=== PATIENT | female | born 1955 | race Caucasian/White ===

== ENCOUNTER 2022-10-16 09:31 | Outpatient (OUT) | payer MEDICARE, SELFPAY ==
--- NOTE | 2022-10-16 10:16 | PM.CN ---
Consult Note: HPI Data of Consult Patient: known to practice within the last 3 years Consult date: 10/16/22 Requesting Physician: CAROLINA WARD NP Primary Care Provider: Shaikh Jeison MD Consult Narrative Narrative: Patient is here for f/u of low back pain. Pain low back with radiation down right leg. Some heaviness to right legLESI cancelled in 04/24 d/t elevated blood sugars. She states her BS this am was 203 and she is following up with PCP next week. We discussed that epidural will increase blood sugar temporarily. She would like to proceed with TFNB procedure. No new sensorimotor or bowel or bladder issues. No adverse medication SE. Medication regimen assists patient in ability to complete ADLs. cc:: CC: CAROLINA WARD NP Review of Systems ROS Status of ROS 10 or more systems reviewed and unremarkable except as noted in history and below Musculoskeletal Reports: back pain Exam Constitutional Documenting provider has reviewed patient's vital signs: yes Common normals: no apparent distress, average body habitus, oriented x3, no limitations, healthy appearing, alert and well nourished General appearance: cooperative, comfortable and well developed Orientation/consciousness: Yes awake, Yes oriented to person, Yes oriented to place and Yes oriented to time HENMT Common normals: head/scalp atraumatic, nasal mucous membranes and turbinates normal and moist oral mucous membranes Respiratory Common normals: normal respiratory effort, no retractions and no use of accessory muscles Effort & inspection: able to speak in complete sentences and symmetric chest movement Back & Pelvis Lumbar spine/lower back: normal to inspection, ROM limited, pain with ROM, paraspinal muscle tenderness, paraspinal muscle spasm and other soft tissue findings (neg straight leg raise. positive facet load worse right) Extremity Common normals: normal to inspection, full ROM, normal capillary refill and no pedal edema Other: muscle strength 4/5 bilat, with intact sensation bilat lower ext Assessment and Plan Assessment and Plan (1) Lumbar radiculopathy: (2) Lumbar spondylosis: (3) Muscle spasm: Plan schedule TFNB right l5 S1 narcan rx
== END 2022-10-16 09:32 ==
PROVIDERS: PCP Internal Medicine; Visit Provider Nurse Practitioner
DX: M47.26 Other spondylosis with radiculopathy, lumbar region (principal); M62.838 Other muscle spasm
CPT/HCPCS: G0463

== ENCOUNTER 2022-11-10 06:30 | Day surgery (SDC) | payer MEDICARE, SELFPAY ==
[2022-11-10 07:22] LABS: Glucometer 92 mg/dL (74-106)
[2022-11-10 07:25] VITALS: BP 106/69; PULSE 78; RESP 16; TEMP 36.6; O2SAT 97
[2022-11-10] MEDS: IOHEXOL 240 MG/ML - 10 ML VIAL INJ (08:09)
[2022-11-10] MEDS: BUPIVACAINE HCL 0.25% PF 25 MG/10 ML VIAL INJ (08:09)
[2022-11-10] MEDS: TRIAMCINOLONE ACETONIDE 40 MG/ML VIAL INJ (08:10)
[2022-11-10] MEDS: LIDOCAINE HCL 2% PF 100 MG/5 ML VIAL INJ (08:10)
--- NOTE | 2022-11-10 08:13 | P.ON_ITS ---
Date of procedure: 11/10/22 Pre-op diagnosis: Lumbar stenosis with neurogenic claudication Post-op diagnosis: same Procedure: Procedure: Right L5-S1, S1-2 transforaminal epidural steroid injection Medications: Bupivacaine 0.25% 2cc, kenalog 80mg The patient was seen and examined in the preoperative holding area.? Informed consent was obtained and placed on the chart.? Patient was brought to the medical procedure unit and placed in the prone position where a timeout was completed verifying the correct patient, procedure site, position, and planned special equipment using sterile aseptic technique.? Under direct fluoroscopic visualization a 25-gauge Quincke tipped spinal needle was advanced to the designated neural foramen where contrast dye was injected to show adequate spread.? The needle was inserted at level right L5-S1. There was no evidence of vascular or adverse uptake.? Epidural spread was appreciated.? The above- mentioned injectate was then placed in a 1.5 mL aliquot preceded by negative aspiration.? The needle was removed. The needle was inserted and the procedure repeated at level right S1-2.? The surgery site was covered.? Patient was taken to the postprocedural recovery area and monitored for an appropriate length of time before found suitable for discharge in the accompaniment of a responsible adult. Anesthesia: None Surgeon: Radha Dunaway Pathology: none sent Condition: stable
[2022-11-10 09:20] VITALS: BP 122/62; BP 122/76; PULSE 75; PULSE 76; RESP 18; O2SAT 91; O2SAT 92
== END 2022-11-10 08:15 ==
LOC: SURGOUT 06:30
PROVIDERS: PCP Internal Medicine; Visit Provider Anesthesiology
DX: M48.062 Spinal stenosis, lumbar region with neurogenic claudication (principal)
CPT/HCPCS: 36415; 64483; 64484; 82948; Q9966

== ENCOUNTER 2022-11-20 10:47 | Outpatient (OUT) | payer MEDICARE, SELFPAY ==
--- NOTE | 2022-11-20 11:08 | PM.CN ---
Consult Note: HPI Data of Consult Patient: known to practice within the last 3 years Consult date: 11/20/22 Requesting Physician: CAROLINA WARD NP Primary Care Provider: Shaikh Jeison MD Consult Narrative Narrative: Patient was here for f/u of right L5/S1 . Pain is 90% relieved after procedure with increased fx. Denies adverse SE of medications. Medication regimen assists patient with being better able to perform ADLS. No new sensorimotor or bowel or bladder issues. Pain is worse with standing. cc:: CC: CAROLINA WARD NP Review of Systems ROS Status of ROS 10 or more systems reviewed and unremarkable except as noted in history and below Musculoskeletal Reports: back pain PFSH PFSH Medical History Surgical History Meds Home Medications and Allergies Home Medications Medication Instructions Recorded Confirmed Type allopurinol 100 mg tablet 100 mg PO DAILY 10/16/22 11/10/22 History gabapentin 600 mg tablet 600 mg PO TID 10/16/22 11/10/22 History glipizide 10 mg tablet 10 mg PO DAILY 10/16/22 11/10/22 History hydrochlorothiazide 25 mg tablet 25 mg PO DAILY 10/16/22 11/10/22 History insulin NPH isoph U-100 human 100 20 unit subcut DAILY 10/16/22 11/10/22 History unit/mL subcutaneous suspension (Novolin N NPH U-100 Insulin isophane) lisinopril 40 mg tablet 40 mg PO DAILY 10/16/22 11/10/22 History lovastatin 20 mg tablet 20 mg PO DAILY 10/16/22 11/10/22 History metoprolol tartrate 50 mg tablet 50 mg PO BID 10/16/22 11/10/22 History oxybutynin chloride 5 mg tablet 5 mg PO DAILY 10/16/22 11/10/22 History oxycodone-acetaminophen 5 mg-325 1 tab PO BID 10/16/22 11/10/22 History mg tablet paroxetine HCl 10 mg tablet 10 mg PO DAILY 10/16/22 11/10/22 History pramipexole 0.25 mg tablet 0.25 mg PO DAILY 10/16/22 11/10/22 History (Mirapex) tiotropium bromide 18 mcg capsule 1 cap inhalation DAILY 10/16/22 11/10/22 History with inhalation device (Spiriva with HandiHaler) tizanidine 4 mg capsule 4 mg PO .QD PRN muscle spasticity 10/16/22 11/10/22 History trazodone 150 mg tablet 150 mg PO BEDTIME 10/16/22 11/10/22 History Allergies Allergy/AdvReac Type Severity Reaction Status Date / Time prednisone Allergy Intermediate Rash Verified 10/16/22 10:33 Exam Constitutional Documenting provider has reviewed patient's vital signs: yes Common normals: no apparent distress, average body habitus, oriented x3, no limitations, healthy appearing, alert and well nourished General appearance: cooperative, comfortable and well developed Orientation/consciousness: Yes awake, Yes oriented to person, Yes oriented to place and Yes oriented to time HENMT Common normals: normocephalic and moist oral mucous membranes Respiratory Common normals: normal respiratory effort, no retractions and no use of accessory muscles Effort & inspection: able to speak in complete sentences and symmetric chest movement Back & Pelvis Common normals: thoracic and lumbar spine normal to inspection and straight leg raise negative bilaterally Lumbar spine/lower back: normal to inspection, ROM limited, pain with ROM and paraspinal muscle tenderness Other: positive facet loading pain mild muscle strength 4/5 bilat LE with intact sensation Assessment and Plan Assessment and Plan (1) Muscle spasm: (2) Lumbar spondylosis: (3) Lumbar radiculopathy:
== END 2022-11-20 10:48 | disposition home or self-care (01) ==
LOC: PM 10:47
PROVIDERS: PCP Internal Medicine; Visit Provider Nurse Practitioner
DX: M62.838 Other muscle spasm (principal); M47.26 Other spondylosis with radiculopathy, lumbar region
CPT/HCPCS: G0463

== ENCOUNTER 2023-01-19 07:55 | Outpatient (OUT) | payer MEDICARE, SELFPAY ==
[2023-01-19 08:13] LABS: Basophils Absolute Auto 0.1 10^3/uL (0.0-0.1); Basophils Percent Auto 0.7 % (0.2-2.0); Eosinophils Absolute Auto 0.2 10^3/uL (0.0-0.7); Eosinophils Percent Auto 1.7 % (0.9-7.0); Hematocrit 41.4 % (36.0-48.0); Hemoglobin 13.6 g/dL (12.0-16.0); Immature Granulocytes Abs Auto 0.17 10^3/uL (0.00-0.03); Immature Granulocytes Pct Auto 1.4 % (0.0-0.5); Lymphocytes Absolute Auto 2.2 10^3/uL (1.2-3.8); Lymphocytes Percent Auto 18.4 % (20.5-60.0); Mean Corpuscular HGB Conc 32.9 g/dL (29.9-35.2); Mean Corpuscular Hemoglobin 31.6 pg (26.7-34.0); Mean Corpuscular Volume 96.1 fL (81.0-99.0); Mean Platelet Volume 9.8 fL (9.5-13.5); Monocytes Absolute Auto 0.7 10^3/uL (0.3-0.8); Monocytes Percent Auto 5.7 % (1.7-12.0); Neutrophils Absolute Auto 8.7 10^3/uL (1.4-6.5); Neutrophils Percent Auto 72.1 % (43.0-75.0); Platelet Count 249 10^3/uL (150-450); Red Blood Count 4.31 10^6/uL (4.20-5.40); Red Cell Distribution Width 14.6 % (11.0-15.0); White Blood Count 12.1 10^3/uL (4.0-11.0)
[2023-01-19 09:24] LABS: Estimated Average Glucose 166 mg/dL; Glycohemoglobin A1C 7.4 % (4.5-6.2)
[2023-01-19 10:45] LABS: Alanine Aminotransferase 36 U/L (14-59); Albumin Globulin Ratio 0.9; Albumin Level 3.3 g/dL (3.4-5.0); Alkaline Phosphatase 111 U/L (46-116); Anion Gap 11.6; Aspartate Amino Transferase 19 U/L (15-37); BUN Creatinine Ratio 21.1; Bilirubin Total 0.4 mg/dL (0.2-1.0); Calcium 8.9 mg/dL (8.5-10.1); Carbon Dioxide 27.7 mmol/L (21.0-32.0); Chloride 101 mmol/L (98-107); Cholesterol 118 mg/dL (<=200); Estimated GFR (African America 35 (>=60); Estimated GFR (Non-African Ame 29 (>=60); Globulin 3.7 g/dL; Glucose 197 mg/dL (74-106); HDL Cholesterol 40 mg/dL (40-60); LDL Cholesterol Calculated 49.6 mg/dL; Potassium 4.3 mmol/L (3.5-5.1); Sodium 136 mmol/L (136-145); Triglycerides 142 mg/dL (<=150); VLDL CHOLESTEROL 28.4 mg/dL
== END 2023-01-19 07:56 | disposition home or self-care (01) ==
LOC: LAB 07:56
PROVIDERS: PCP Internal Medicine; Visit Provider Internal Medicine
DX: E11.22 Type 2 diabetes mellitus with diabetic chronic kidney disease (principal); N18.30 Chronic kidney disease, stage 3 unspecified; Z79.4 Long term (current) use of insulin; E78.5 Hyperlipidemia, unspecified
CPT/HCPCS: 36415; 80053; 80061; 83036; 85025

== ENCOUNTER 2023-02-19 10:34 | Outpatient (OUT) | payer MEDICARE, SELFPAY ==
--- NOTE | 2023-02-19 11:01 | PM.CN ---
Consult Note: HPI Data of Consult Requesting Physician: Renate Flores NP Primary Care Provider: Shaikh Jeison MD Consult Narrative Reason for consult: f/u Narrative: Vidhya Pillai a pleasant 67 year old female presents for evaluation and management of chronic back pain with radiculopathy. Today rating pain 7/10 in low back and sharp shooting pain to right leg with numbness and weakness. Patient is not able to stand longer than 5 minutes due to weakness and pain. cc:: CC: Renate Flores NP Review of Systems ROS Status of ROS 10 or more systems reviewed and unremarkable except as noted in history and below Musculoskeletal Reports: back pain PFSH PFSH Medical History Angina at rest ?I20.8 - Other forms of angina pectoris (ICD-10) COPD (chronic obstructive pulmonary disease) ?J44.9 - Chronic obstructive pulmonary disease, unspecified (ICD-10) Diabetes ?E11.9 - Type 2 diabetes mellitus without complications (ICD-10) Hypertension ?I10 - Essential (primary) hypertension (ICD-10) Low back pain ?M54.50 - Low back pain, unspecified (ICD-10) Numbness and tingling ?R20.0 - Anesthesia of skin (ICD-10) ?R20.2 - Paresthesia of skin (ICD-10) Osteoarthritis ?M19.90 - Unspecified osteoarthritis, unspecified site (ICD-10) Smoker ?F17.200 - Nicotine dependence, unspecified, uncomplicated (ICD-10) Surgical History H/O cardiac catheterization ?Z98.890 - Other specified postprocedural states (ICD-10) History of cholecystectomy ?Z90.49 - Acquired absence of other specified parts of digestive tract (ICD-10) S/P dilatation and curettage ?Z98.890 - Other specified postprocedural states (ICD-10) Meds Home Medications and Allergies Home Medications Medication Instructions Recorded Confirmed Type allopurinol 100 mg tablet 100 mg PO DAILY 10/16/22 11/10/22 History gabapentin 600 mg tablet 600 mg PO TID 10/16/22 11/10/22 History glipizide 10 mg tablet 10 mg PO DAILY 10/16/22 11/10/22 History hydrochlorothiazide 25 mg tablet 25 mg PO DAILY 10/16/22 11/10/22 History insulin NPH isoph U-100 human 100 20 unit subcut DAILY 10/16/22 11/10/22 History unit/mL subcutaneous suspension (Novolin N NPH U-100 Insulin isophane) lisinopril 40 mg tablet 40 mg PO DAILY 10/16/22 11/10/22 History lovastatin 20 mg tablet 20 mg PO DAILY 10/16/22 11/10/22 History metoprolol tartrate 50 mg tablet 50 mg PO BID 10/16/22 11/10/22 History oxybutynin chloride 5 mg tablet 5 mg PO DAILY 10/16/22 11/10/22 History oxycodone-acetaminophen 5 mg-325 1 tab PO BID 10/16/22 11/10/22 History mg tablet paroxetine HCl 10 mg tablet 10 mg PO DAILY 10/16/22 11/10/22 History pramipexole 0.25 mg tablet 0.25 mg PO DAILY 10/16/22 11/10/22 History (Mirapex) tiotropium bromide 18 mcg capsule 1 cap inhalation DAILY 10/16/22 11/10/22 History with inhalation device (Spiriva with HandiHaler) tizanidine 4 mg capsule 4 mg PO .QD PRN muscle spasticity 10/16/22 11/10/22 History trazodone 150 mg tablet 150 mg PO BEDTIME 10/16/22 11/10/22 History oxycodone-acetaminophen 5 mg-325 1 tab PO BID PRN pain #60 tabs 12/05/22 Rx mg tablet (Percocet) oxycodone-acetaminophen 5 mg-325 1 tab PO BID PRN pain #60 tabs 01/02/23 Rx mg tablet (Percocet) Allergies Allergy/AdvReac Type Severity Reaction Status Date / Time prednisone Allergy Intermediate Rash Verified 10/16/22 10:33 Exam Constitutional Documenting provider has reviewed patient's vital signs: yes Common normals: no apparent distress, average body habitus, oriented x3, no limitations, healthy appearing, alert and well nourished General appearance: cooperative, comfortable and well developed Orientation/consciousness: Yes awake, Yes oriented to person, Yes oriented to place and Yes oriented to time HENMT Common normals: normocephalic and moist oral mucous membranes Respiratory Common normals: normal respiratory effort, no retractions and no use of accessory muscles Effort & inspection: able to speak in complete sentences and symmetric chest movement Back & Pelvis Common normals: thoracic and lumbar spine normal to inspection and straight leg raise negative bilaterally Lumbar spine/lower back: ROM limited, pain with ROM and straight leg raise positive right Other: numbness tingling weakness to BLE worse on right sharp shooting pain down right leg at times Extremity Common normals: normal to inspection and full ROM Assessment and Plan Assessment and Plan (1) Lumbar radiculopathy: (2) Lumbar spondylosis: (3) Muscle spasm: (4) Degenerative disc disease: (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 The patient does not report intolerable side effects. The patient is NOT opioid naive and non-pharmacologic and non-opioid treatment has failed to significantly relieve the patient's pain and improve functionality. The patient has a diagnosis that is related to a somatic or visceral pain etiology. ? ?? I reviewed with the patient the potential risks and side effects with the use of? opioid medications including but not limited to respiratory depression,? sedation, and even . I verified the patient has access to naloxone should? these effects occur. I advised the patient to avoid the use of any other? sedation substances including alcohol, THC, and benzodiazepines while? taking opioid medications due to the risk of compounding side effects and? detrimental outcomes. 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 drug screen, and opioid start talking forms. The patient was advised to let? their family know they had Naloxone in case they would need to administer? the medication.? Plan update lumbar MRI, last MRI 2016 continue current medication regimen, tolerating well without side effects f/u after MRI
== END 2023-02-19 10:35 | disposition home or self-care (01) ==
LOC: PM 10:34
PROVIDERS: PCP Internal Medicine; Visit Provider Nurse Practitioner
DX: M54.16 Radiculopathy, lumbar region (principal); M47.896 Other spondylosis, lumbar region; M62.830 Muscle spasm of back; M51.36 Other intervertebral disc degeneration, lumbar region; Z79.891 Long term (current) use of opiate analgesic
CPT/HCPCS: G0463

== ENCOUNTER 2023-02-26 12:03 | Outpatient (OUT) | payer MEDICARE, SELFPAY ==
--- NOTE | 2023-02-26 13:00 | MR_ITS ---
[address] [address] Patient Name: ZAYRA IBARRA MRN: [id number] date: 1955 Sex: F Assigned Patient Location: MRI Current Patient Location: MRI Accession/Order Number: [id number] Exam Date: 02/26/2023 13:00 Report Date: 02/26/2023 14:27 At the request of: KARSTEN GIEDRASHANTEL Procedure: MR lumbar spine wo con EXAM: MR lumbar spine wo con CLINICAL INDICATION: Lumbar Radiculopathy COMPARISON: MR lumbar spine 10/12/2020. TECHNIQUE/PROTOCOL: Noncontrast lumbar spine MR protocol (Sagittal T1, T2, STIR and axial T1, T2 sequences). FINDINGS: Segmentation: Normal. Conus: Terminates at L1. Spinal Cord and Cauda Equina: Normal. Epidural Hematoma: None. Alignment: Normal. Marrow Signal: Slightly heterogenous marrow signal is nonspecific. No marrow edema. Vertebral Body Heights: Maintained. Sacroiliac Joints: Grossly normal given only partially visualized. Paraspinal Soft Tissues: Normal. Retroperitoneal Soft Tissues: No acute abnormalities. Spondylotic Changes: Multilevel spondylotic changes include varying degrees of intervertebral disc height loss, disc desiccation, osteophytic ridging, and facet/ligamentum flavum hypertrophy. These have mildly progressed since 10/12/2020. T12-L1: No disc bulge or herniation. No high-grade spinal canal or foraminal narrowing. L1-L2: No disc bulge or herniation. No high-grade spinal canal or foraminal narrowing. L2-L3: No disc bulge or herniation. No high-grade spinal canal or foraminal narrowing. L3-L4: No disc bulge or herniation. No high-grade spinal canal narrowing. Mild bilateral foraminal narrowing. Mild bilateral facet/ligamentum flavum hypertrophy. L4-L5: Slight disc bulge minimally indents the ventral thecal sac. No high-grade spinal canal narrowing. [id number] bilateral foraminal narrowing. Advanced bilateral facet/ligamentum flavum hypertrophy. L5-S1: No disc bulge or herniation. Significant intervertebral disc height loss. No high-grade spinal canal narrowing. Mild right and moderate left foraminal narrowing. Mild bilateral facet hypertrophy. MR/MR lumbar spine wo con IMPRESSION: 1. Multilevel spondylotic changes, mildly progressed since 10/12/2020, without high-grade spinal canal or foraminal narrowing at any lumbar level. 2. Foraminal narrowing is at most moderate on the left at L5-S1. Electronically authenticated by: ARMAND DENT Date: 02/26/2023 14:27
== END 2023-02-26 12:04 | disposition home or self-care (01) ==
LOC: MRI 12:04
PROVIDERS: PCP Internal Medicine; Visit Provider Anesthesiology
DX: M47.26 Other spondylosis with radiculopathy, lumbar region (principal)
CPT/HCPCS: 72148

== ENCOUNTER 2023-03-12 09:05 | Outpatient (OUT) | payer MEDICARE, SELFPAY ==
--- NOTE | 2023-03-12 09:34 | P.CN_ITS ---
Consult Note: HPI Data of Consult Requesting Physician: Renate Flores NP Primary Care Provider: Shaikh Jeison MD Consult Narrative Reason for consult: f/u Narrative: Vidhya Pillai a pleasant 67 year old female presents for evaluation and management of chronic back pain. Today rating pain 7/10 in low back. Recently had Lumbar MRI and would like to discuss findings and plan. cc:: CC: Renate Flores NP Review of Systems ROS Status of ROS 10 or more systems reviewed and unremarkable except as noted in history and below Musculoskeletal Reports: back pain PFSH PFSH Medical History Angina at rest ?I20.8 - Other forms of angina pectoris (ICD-10) COPD (chronic obstructive pulmonary disease) ?J44.9 - Chronic obstructive pulmonary disease, unspecified (ICD-10) Diabetes ?E11.9 - Type 2 diabetes mellitus without complications (ICD-10) Hypertension ?I10 - Essential (primary) hypertension (ICD-10) Low back pain ?M54.50 - Low back pain, unspecified (ICD-10) Numbness and tingling ?R20.0 - Anesthesia of skin (ICD-10) ?R20.2 - Paresthesia of skin (ICD-10) Osteoarthritis ?M19.90 - Unspecified osteoarthritis, unspecified site (ICD-10) Smoker ?F17.200 - Nicotine dependence, unspecified, uncomplicated (ICD-10) Surgical History H/O cardiac catheterization ?Z98.890 - Other specified postprocedural states (ICD-10) History of cholecystectomy ?Z90.49 - Acquired absence of other specified parts of digestive tract (ICD- 10) S/P dilatation and curettage ?Z98.890 - Other specified postprocedural states (ICD-10) Meds Home Medications and Allergies Home Medications Medication Instructions Recorded Confirmed Type allopurinol 100 mg tablet 100 mg PO DAILY 10/16/22 11/10/22 History gabapentin 600 mg tablet 600 mg PO TID 10/16/22 11/10/22 History glipizide 10 mg tablet 10 mg PO DAILY 10/16/22 11/10/22 History hydrochlorothiazide 25 mg tablet 25 mg PO DAILY 10/16/22 11/10/22 History insulin NPH isoph U-100 human 100 20 unit subcut DAILY 10/16/22 11/10/22 History unit/mL subcutaneous suspension (Novolin N NPH U-100 Insulin isophane) lisinopril 40 mg tablet 40 mg PO DAILY 10/16/22 11/10/22 History lovastatin 20 mg tablet 20 mg PO DAILY 10/16/22 11/10/22 History metoprolol tartrate 50 mg tablet 50 mg PO BID 10/16/22 11/10/22 History oxybutynin chloride 5 mg tablet 5 mg PO DAILY 10/16/22 11/10/22 History oxycodone-acetaminophen 5 mg-325 1 tab PO BID 10/16/22 11/10/22 History mg tablet paroxetine HCl 10 mg tablet 10 mg PO DAILY 10/16/22 11/10/22 History pramipexole 0.25 mg tablet 0.25 mg PO DAILY 10/16/22 11/10/22 History (Mirapex) tiotropium bromide 18 mcg capsule 1 cap inhalation DAILY 10/16/22 11/10/22 History with inhalation device (Spiriva with HandiHaler) tizanidine 4 mg capsule 4 mg PO .QD PRN muscle spasticity 10/16/22 11/10/22 History trazodone 150 mg tablet 150 mg PO BEDTIME 10/16/22 11/10/22 History oxycodone-acetaminophen 5 mg-325 1 tab PO BID PRN pain #60 tabs 12/05/22 Rx mg tablet (Percocet) oxycodone-acetaminophen 5 mg-325 1 tab PO BID PRN pain #60 tabs 01/02/23 Rx mg tablet (Percocet) oxycodone-acetaminophen 5 mg-325 1 tab PO BID PRN pain #60 tabs 03/12/23 Rx mg tablet (Percocet) Allergies Allergy/AdvReac Type Severity Reaction Status Date / Time prednisone Allergy Intermediate Rash Verified 10/16/22 10:33 Exam Constitutional Documenting provider has reviewed patient's vital signs: yes Common normals: no apparent distress, average body habitus, oriented x3, no limitations, healthy appearing, alert and well nourished General appearance: cooperative, comfortable and well developed Orientation/consciousness: Yes awake, Yes oriented to person, Yes oriented to place and Yes oriented to time HENDE Common normals: normocephalic and moist oral mucous membranes Respiratory Common normals: normal respiratory effort, no retractions and no use of accessory muscles Effort & inspection: able to speak in complete sentences and symmetric chest movement Back & Pelvis Common normals: thoracic and lumbar spine normal to inspection and straight leg raise negative bilaterally Lumbar spine/lower back: ROM limited, pain with ROM and straight leg raise negative bilaterally Extremity Common normals: normal to inspection and full ROM Assessment and Plan Assessment and Plan (1) Lumbar spondylosis: Assessment and Plan: The patient has had over 3 months of moderate to severe low back pain with functional impairment and inadequate response to conservative care including NSAIDS (unless there are contraindication such as concurrent blood thinners), multiple oral or topical pain medications, and home exercise program/physical therapy.? Patient has completed >6 weeks of guided home exercise program and/or formal physical therapy program without relief of their symptoms.? I have reviewed the imaging of the lumbar spine and no red flags were identified.? We discussed the risks and benefits of the procedure with the patient, and we are NOT planning on using sedation as outlined in the guidelines from Medicare unless there is a documented reason that sedation would be strongly recommended.?? ?The procedure will be completed with {aimagin} guidance.? 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 I feel these medications are improving the patient's quality of life and allow them to tolerate activities of daily living as well as participate in recreational activity.? The patient does not report intolerable side effects. The patient is NOT opioid naive and non-pharmacologic and non-opioid treatment has failed to significantly relieve the patient's pain and improve functionality. The patient has a diagnosis that is related to a somatic or visceral pain etiology. ? ?? I reviewed with the patient the potential risks and side effects with the use of? opioid medications including but not limited to respiratory depression,? sedation, and even . I verified the patient has access to naloxone should? these effects occur. I advised the patient to avoid the use of any other? sedation substances including alcohol, THC, and benzodiazepines while? taking opioid medications due to the risk of compounding side effects and? detrimental outcomes. I reviewed the BOX BLANK MACHINE OPERATOR, pain treatment agreement, urine? drug screen, and opioid start talking forms. The patient was advised to let? their family know they had Naloxone in case they would need to administer? the medication.? ?? A drug screen was completed within the last year, and no aberrancies were noted regarding their use of controlled substances. The patient understands they are subject to the terms and conditions of the pain contract that they have signed. ? ?? I have checked an [place] report on this patient today and there are no aberrancies noted in the prescribing history.? (4) Lumbar stenosis with neurogenic claudication: (5) Degenerative disc disease: (6) Muscle spasm: Plan MRI reviewed with patient. Case discussed with Dr Dunaway who feels she could benefit from repeat lumbar RFA at bilateral L4-5 L5-S1 as this previously provided greater than 6 months of pain relief and functional improvement. Discussed with patient and she is agreeable. continue HEP as tolerated continue current medications Bilateral L4-5 L5-S1 MBB x2 working towards thermal RFA f/u 1 week after
== END 2023-03-12 09:06 | disposition home or self-care (01) ==
PROVIDERS: PCP Internal Medicine; Visit Provider Nurse Practitioner
DX: M47.816 Spondylosis without myelopathy or radiculopathy, lumbar region (principal); Z79.891 Long term (current) use of opiate analgesic; M24.20 Disorder of ligament, unspecified site
CPT/HCPCS: G0463

== ENCOUNTER 2023-04-06 09:02 | Day surgery (SDC) | payer MEDICARE, SELFPAY ==
[2023-04-06 10:18] LABS: Glucometer 106 mg/dL (74-106)
[2023-04-06 10:19] VITALS: BP 122/66; PULSE 62; RESP 14; TEMP 36.4; O2SAT 95
[2023-04-06] MEDS: BUPIVACAINE HCL 0.25% PF 25 MG/10 ML VIAL 8 ML INJ (10:34)
[2023-04-06] MEDS: LIDOCAINE HCL 2% PF 100 MG/5 ML VIAL 2 ML INJ (10:34)
[2023-04-06 10:47] VITALS: BP 136/73; BP 140/72; PULSE 60; PULSE 62; RESP 18; O2SAT 90; O2SAT 91
--- NOTE | 2023-04-06 10:48 | W.PM.PROCNOT ---
Date of procedure: 04/06/23 Pre-op diagnosis: Lumbar spondylosis Post-op diagnosis: same as pre-op Procedure: Procedure: Bilateral L4-5, L5-S1 medial branch block Medications: Bupivacaine 0.25% 5cc The patient was seen and examined in the preoperative holding area.? An informed consent was obtained and placed on the chart.? The patient was brought to the medical procedure unit and placed in the prone position.? A timeout was completed verifying correct patient, procedure site, positioning, plan, and special equipment.? Using aseptic technique, the needle was placed at left L4. Under direct fluoroscopic visualization a Quincke-tipped spinal needle was advanced to the junction of the superior articulating process with the transverse process at the designated medial branch segment.? Preceded by negative aspiration, the above-mentioned injectate was placed in 1 mL aliquots.? The procedure was repeated at left L5, S1.? The needle was removed and insertion site was covered. The same procedure, at the same levels, was completed on the right side. The patient was taken to the postprocedural recovery area and monitored for an appropriate length of time before found suitable for discharge in the company of a responsible adult. Anesthesia: Local Surgeon: Radha Dunaway Pathology: none sent Condition: stable Disposition: no change
== END 2023-04-06 10:55 | disposition home or self-care (01) ==
PROVIDERS: PCP Internal Medicine; Visit Provider Anesthesiology
DX: M47.816 Spondylosis without myelopathy or radiculopathy, lumbar region (principal); Z79.4 Long term (current) use of insulin
CPT/HCPCS: 36415; 64493; 64494; 82948

== ENCOUNTER 2023-04-16 09:58 | Outpatient (OUT) | payer MEDICARE, SELFPAY ==
--- NOTE | 2023-04-16 10:37 | P.CN_ITS ---
Consult Note: HPI Data of Consult Consult date: 04/16/23 Requesting Physician: Renate Flores NP Primary Care Provider: Shaikh Jeison MD Consult Narrative Reason for consult: f/u Narrative: Vidhya Pillai a pleasant 67 year old female presents for evaluation and management of chronic back pain. Today rating pain 2/10 in low back, stabbing, worse with activity and improved with rest. Patient recently underwent bilateral L4-5 L5-S1 MBB#1 with 80% improvement immediately after and hours following the procedure. cc:: CC: Renate Flores NP Review of Systems ROS Status of ROS 10 or more systems reviewed and unremark able except as noted in history and below Musculoskeletal Reports: back pain PFSH PFSH Medical History Osteoarthritis ?M19.90 - Unspecified osteoarthritis, unspecified site (ICD-10) Low back pain ?M54.50 - Low back pain, unspecified (ICD-10) Numbness and tingling ?R20.0 - Anesthesia of skin (ICD-10) ?R20.2 - Paresthesia of skin (ICD-10) Diabetes ?E11.9 - Type 2 diabetes mellitus without complications (ICD-10) Smoker ?F17.200 - Nicotine dependence, unspecified, uncomplicated (ICD-10) COPD (chronic obstructive pulmonary disease) ?J44.9 - Chronic obstructive pulmonary disease, unspecified (ICD-10) Angina at rest ?I20.8 - Other forms of angina pectoris (ICD-10) Hypertension ?I10 - Essential (primary) hypertension (ICD-10) Surgical History History of cholecystectomy ?Z90.49 - Acquired absence of other specified parts of digestive tract (ICD- 10) S/P dilatation and curettage ?Z98.890 - Other specified postprocedural states (ICD-10) H/O cardiac catheterization ?Z98.890 - Other specified postprocedural states (ICD-10) Meds Home Medications and Allergies Home Medications Medication Instructions Recorded Confirmed Type allopurinol 100 mg tablet 100 mg PO DAILY 10/16/22 04/06/23 History gabapentin 600 mg tablet 600 mg PO TID 10/16/22 04/06/23 History glipizide 10 mg tablet 10 mg PO DAILY 10/16/22 04/06/23 History hydrochlorothiazide 25 mg tablet 25 mg PO DAILY 10/16/22 04/06/23 History insulin NPH isoph U-100 human 100 20 unit subcut DAILY 10/16/22 04/06/23 History unit/mL subcutaneous suspension (Novolin N NPH U-100 Insulin isophane) lisinopril 40 mg tablet 40 mg PO DAILY 10/16/22 04/06/23 History lovastatin 20 mg tablet 20 mg PO DAILY 10/16/22 04/06/23 History metoprolol tartrate 50 mg tablet 50 mg PO BID 10/16/22 04/06/23 History oxybutynin chloride 5 mg tablet 5 mg PO DAILY 10/16/22 04/06/23 History oxycodone-acetaminophen 5 mg-325 1 tab PO BID 10/16/22 04/06/23 History mg tablet paroxetine HCl 10 mg tablet 10 mg PO DAILY 10/16/22 04/06/23 History pramipexole 0.25 mg tablet 0.25 mg PO DAILY 10/16/22 04/06/23 History (Mirapex) tiotropium bromide 18 mcg capsule 1 cap inhalation DAILY 10/16/22 04/06/23 History with inhalation device (Spiriva with HandiHaler) tizanidine 4 mg capsule 4 mg PO .QD PRN muscle spasticity 10/16/22 04/06/23 History trazodone 150 mg tablet 150 mg PO BEDTIME 10/16/22 04/06/23 History oxycodone-acetaminophen 5 mg-325 1 tab PO BID PRN pain #60 tabs 04/06/23 Rx mg tablet (Percocet) Allergies Allergy/AdvReac Type Severity Reaction Status Date / Time prednisone Allergy Intermediate Rash Verified 04/06/23 10:09 Exam Constitutional Documenting provider has reviewed patient's vital signs: yes Common normals: no apparent distress, average body habitus, oriented x3, no limitations, healthy appearing, alert and well nourished General appearance: cooperative, comfortable and well developed Orientation/consciousness: Yes awake, Yes oriented to person, Yes oriented to place and Yes oriented to time HENMT Common normals: normocephalic and moist oral mucous membranes Respiratory Common normals: normal respiratory effort, no retractions and no use of accessory muscles Effort & inspection: able to speak in complete sentences and symmetric chest movement Back & Pelvis Common normals: thoracic and lumbar spine normal to inspection and straight leg raise negative bilaterally Lumbar spine/lower back: ROM limited, pain with ROM and straight leg raise negative bilaterally Extremity Common normals: normal to inspection and full ROM Assessment and Plan Assessment and Plan (1) Lumbar spondylosis: Assessment and Plan: The patient has had over 3 months of moderate to severe low back pain with functional impairment and inadequate response to conservative care including NSAIDS (unless there are contraindication such as concurrent blood thinners), multiple oral or topical pain medications, and home exercise program/physical therapy.? Patient has completed >6 weeks of guided home exercise program and/or formal physical therapy program without relief of their symptoms.? I have reviewed the imaging of the lumbar spine and no red flags were identified.? We discussed the risks and benefits of the procedure with the patient, and we are NOT planning on using sedation as outlined in the guidelines from Medicare unless there is a documented reason that sedation would be strongly recommended.?? ?The procedure will be completed with fluoroscopic guidance.? 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 I feel these medications are improving the patient's quality of life and allow them to tolerate activities of daily living as well as participate in recreational activity.? The patient does not report intolerable side effects. The patient is NOT opioid naive and non-pharmacologic and non-opioid treatment has failed to significantly relieve the patient's pain and improve functionality. The patient has a diagnosis that is related to a somatic or visceral pain etiology. ? ?? I reviewed with the patient the potential risks and side effects with the use of? opioid medications including but not limited to respiratory depression,? sedation, and even . I verified the patient has access to naloxone should? these effects occur. I advised the patient to avoid the use of any other? sedation substances including alcohol, THC, and benzodiazepines while? taking opioid medications due to the risk of compounding side effects and? detrimental outcomes. I reviewed the WELDING MACHINE OPERATOR, pain treatment agreement, urine? drug screen, and opioid start talking forms. The patient was advised to let? their family know they had Naloxone in case they would need to administer? the medication.? ?? A drug screen was completed within the last year, and no aberrancies were noted regarding their use of controlled substances. The patient understands they are subject to the terms and conditions of the pain contract that they have signed. ? ?? I have checked an [place] report on this patient today and there are no aberrancies noted in the prescribing history.? (3) Degenerative disc disease: (4) Muscle spasm: (5) Ligamentum flavum hypertrophy: Plan Bilateral L4-5 L5-S1 MBB #2 working towards thermal RFA continue HEP as tolerated continue current medications, tolerating well without side effects f/u 1 week after
== END 2023-04-16 09:59 | disposition home or self-care (01) ==
LOC: PM 09:59
PROVIDERS: PCP Internal Medicine; Visit Provider Nurse Practitioner
DX: M47.816 Spondylosis without myelopathy or radiculopathy, lumbar region (principal); Z79.891 Long term (current) use of opiate analgesic
CPT/HCPCS: G0463

== ENCOUNTER 2023-05-11 08:52 | Day surgery (SDC) | payer MEDICARE, SELFPAY ==
--- OUTSIDE RECORDS SUMMARY | 2023-05-11 08:56 | XMS_ITS | CCD ---
Author Name Unknown Address [email or web address] [place] [address] Organization [facility] Care Team Providers Care Calciner Operator Name Role Phone JeisonShaikh Unavailable Unavailable Unavailable Juan Gonzalez Unavailable Unavailable Unavailable NAVEEN ., DR ELIGIO Burns Admitting Unavailable HODGE ., DR ELIGIO Burns Consulting Unavailable HODGE ., DR ELIGIO Burns Attending Unavailable [facility] Primary Care Unavailable JUAN ANTONIO LOMELI Consulting Unavailable HODGE ., DR ELIGIO Burns Admitting Unavailable [facility] Primary Care Unavailable ROSEN ., EVA Consulting Unavailable HODGE ., DR ELIGIO Burns Attending Unavailable HODGE ., DR ELIGIO Burns Admitting [facility] Primary Care Unavailable ROSEN ., EVA Consulting Unavailable HODGE ., DR ELIGIO Burns Attending Unavailable [facility] Primary Care Unavailable LAKSHMIPATHY ., NARENDRANATH Admitting Catrina vailable LAKSHMIPATHY ., NARENDSHIRAATH Attending Catrina vailable HODGE ., DR ELIGIO Burns Admitting [facility]available [facility] Primary Care Unavailable ROSEN ., EVA Consulting Unavailable HODGE ., DR ELIGIO Burns Attending [facility]available [facility] Primary Care Unavailable ROSEN ., EVA Consulting Unavailable HODGE ., DR ELIGIO Burns Attending Unavailable HODEG ., DR ELIGIO Burns Admitting Unavailable ROSEN ., EVA Consulting Unavailable HODGE ., DR ELIGIO Burns Admitting Unavailable NEENA MACK Primary Care Unavailable HODGE ., DR ELIGIO Burns Attending Unavailable [facility] Primary Care Unavailable [facility] Consulting Un[facility] Attending Unavailable [facility], DIAL H Admitting Unavailable [facility], D[facility] Consulting Unavailable FAWWAD, DIAL H Attending Unavailable FAWWAD, DIAL H Admitting Unavailable [facility], [facility] Primary Care Unavailable [facility], [facility] Primary Care Unavailable [facility], DIAL H Attending Unavailable [facility], [facility] Admitting Unavailable JUSTO, DR NADJA Malcolm Consulting Unavailable CONNIE ., ANA CRISTINA Consulting Unavailable [facility], [facility] Consulting Unavailable [facility] Primary Care Unavailable ROSEN ., EVA Consulting Unavailable HODGE ., DR ELIGIO Burns Attending Unavailable HODGE ., DR ELIGIO Burns Admitting Unavailable HODGE ., DR ELIGIO Burns Admitting Unavailable [facility] Primary Care Unavailable HODGE ., DR ELIGIO Burns Consulting Unavailable HODGE ., DR ELIGIO Burns Attending Unavailable Udayuinchepe II, Dr. Shashi Salas Attending Unavailable McGuinn II, Dr. Shashi Salas Referring Unavailable McGuinchepe II, Dr. Shashi Salas Attending Unavailable MD Misael Mchughikh Primary Care Provider [phone] MD Alta Schmid Attending Provider Sharmaine, Alta Unavailable MD Yojana Mchugh Primary Care Provider MD Alta Schmid Attending Provider JOSE Staley Attending Provider MD Alta Schmid Referring Provider Sharmaine, Alta Admitting Unavailable Sharmaine, Alta Attending Unavailable [facility] Primary Care Unavailable Sharmaine, Alta Admitting Unavailable Sharmaine, Alta Attending Unavailable [facility] Primary Care Unavailable Yakelin Staley Attending Unavail able Sharmaine, Alta Referring Unavailable [facility] Primary Care Unavailable Yakelin Staley Admitting Unavail able Neena Hi Unavailable SHAIKH MCHUGH Attending Unavailable Gume PRAJAPATI, Radha Hawkins Attending Unavailable Gume PRAJAPATI, Radha Hawkins Attending Unavailable Allergies Allergy Classification Reported Allergen(s) Allergy Type Date of Onset Reaction(s) Facility (14 sources) predniSONE; Translations: [predniSONE] Drug Allergy 1 Hives, Unknown [place] (2 sources) predniSONE Drug Allergy 5 [facility] (1 source) predniSONE Drug Allergy 1 [place] [facility] Medications Current Medications Medication Drug Class(es) Dates Sig (Normalized) Sig (Original) acetaminophen 325 mg / oxyCODONE hydrochloride 5 mg oral tablet (15 sources) Opioid Agonist Start: 01-24-2021 End: 03-23-2023 take 1 tablet by mouth twice daily Oxycodone-Acetami nophen Active 1 TAB PO Twice daily March 23, 2023 12:00am take 1 tablet by rafat th every twelve hours as needed for pain Percocet 5-325 MG Oral Tablet TAKE 1 TAB LET EVERY 12 HOURS NEEDED FOR PAIN. Quantity: 0 Refills: 0 Ordered: 13-May-2021 DO Active atorvastatin 40 mg oral tablet (3 sources) HMG-CoA Reductase Inhibitor Start: 03-23-2023 take 40 mg by mouth once daily Atorvastatin Active 40 MG PO Daily March 23, 2023 12:00am bumetanide 0.5 mg oral tablet (15 sources) Loop Diuretic Start: 01-24-2021 End: 03-23-2023 take 0.5 mg by mouth once daily Bumetanide Active 0.5 MG PO Daily March 23, 2023 12:00am take 1 tablet by rafat th every twenty-four hours Bumetanide 0.5 MG 1 TAB BY MOUTH Orally every 24 hrs Active gabapentin 600 mg oral tablet (15 sources) Anti-epileptic Agent Start: 03-23-2023 take 600 mg by mouth three times daily Gabapentin Active 600 MG PO Three times daily March 23, 2023 12:00am Start: 01-24-2021 End: 03-23-2023 take 400 mg by mouth three times daily Gabapentin Discontinued 400 MG PO Three times daily January 23, 2021 11:00pm March 23, 2023 2:48pm glipiZIDE 10 mg oral tablet (15 sources) Sulfonylurea Start: 03-23-2023 take 10 mg by mouth twice daily Glipizide Active 10 MG PO Twice daily March 23, 2023 12:00am Start: 01-24-2021 End: 03-23-2023 take 10 mg by mouth once daily Glipizide Discontinued 10 MG PO Daily January 23, 2021 11:00pm March 23, 2023 2:48pm take 1 tablet by rafat once daily glipiZIDE XL 10 MG Oral Tablet Extended Release 24 Hour TAKE 1 TABLET DAILY DIRECTED. Quantity: 0 Refills: 0 Ordered: 13-May-2021 DO Active hydroCHLOROthiazide 25 mg oral tablet (2 sources) Thiazide Diuretic take 1 tablet by mouth every twenty-four hours hydroCHLOROthiazide 25 MG 1 tablet in the morning Orally Once a day Active hydroCHLOROthiazide 25 mg / losartan potassium 100 mg oral tablet (3 sources) Thiazide Diuretic, Angiotensin 2 Receptor Niko Start : 03-23 take 1 tablet by mouth once daily Losartan-Hydrochlorothia zide Active 1 TAB PO Daily March 23, 2023 12:00am 3 ml insulin isophane, human 100 unt/ml pen injector (2 sources) NovoLIN N FlexPe n 100 UNIT/ML as directed Subcutaneous 20 UNITS TWICE A DAY Active Insulin Nph And Regular Human (1 source) Insulin Start : 03-24 Insulin Nph And Regular Human (Novolin 70-30 Flexpen U-100) 100 unit/mL (70-30) Insulin Pen Active 20 UNIT SUBCUT Twice daily March 24, 2023 12:00am Magnesium (2 sources) Start : 03-11 take 1 tablet by mouth once daily Magnesium 400 MG 1 Tablet Orally Once a day for 90 days Mar, Active magnesium oxide 250 mg oral tablet (2 sources) take 1 tablet by mouth once daily at mealtime Magnesium Oxide 250 MG 1 tablet with food Orally Once a day Active metoprolol tartrate 50 mg oral tablet (15 sources) beta-Adrenergic Niko Start : 03-23 take 50 mg by mouth twice daily Metoprolol Tartrate Active 50 MG PO Twice daily March 23, 2023 12:00am Start: 01-24-2021 End: 03-23-2023 take 50 mg by mouth three times daily Metoprolol Tartrate Discontinued 50 MG PO Three times daily January 23, 2021 11:00pm March 23, 2023 2:48pm take 2 tablets by mo uth once daily Metoprolol Tartrate 50 MG Oral Tablet TAKE 2 TABLETS DAILY. Quantity: 0 Refills: 0 Ordered: 01-Jul-2021 DO Active take 1 tablet by rafat th once daily Metoprolol Tartrate 50 MG Oral Tablet TAKE 1 TABLET EVERY 12 HOURS DAILY. Quantity: 0 Refills: 0 Ordered: 13-May-2021 DO Active PARoxetine hydrochloride 20 mg oral tablet (9 sources) Serotonin Reuptake Inhibitor Start: 03-23-2023 take 20 mg by mouth once daily Paroxetine Hcl Active 20 MG PO Daily March 23, 2023 12:00am Start: 01-24-2021 End: 03-23-2023 take 10 mg by mouth once daily Paroxetine Hcl Disconti nued 10 MG PO Daily January 23, 2021 11:00pm March 23, 2023 2:48pm pramipexole dihydrochloride 0.5 mg oral tablet (3 sources) Nonergot Dopamine Agonist Start: 03-23-2023 take 0.5 mg by mouth once daily Pramipexole Active 0.5 MG PO Daily March 23, 2023 12:00am rOPINIRole 0.5 mg oral tablet (2 sources) Nonergot Dopamine Agonist take 1 tablet by mouth once daily at bedtime rOPINIRole HCl 0.5 MG 1 tablet 1 to 3 hours before bedtime Orally Once a day Active traZODone hydrochloride 100 mg oral tablet (15 sources) Serotonin Reuptake Inhibitor Start: 03-23-2023 take 100 mg by mouth once daily at bedtime Trazodone Active 100 MG PO Daily at bedtime March 23, 2023 12:00am Start: 01-24-2021 End: 03-23-2023 take 150 mg by mouth at bedtime Trazodone Discontinued 150 MG PO Bedtime January 23, 2021 11:00pm March 23, 2023 2:48pm take 1 tablet by rafat at bedtime traZODone HCl - 150 MG Oral Tablet TAKE 1 TABLET AT BEDTIME. Quantity: 0 Refills: 0 Ordered: 13-May-2021 DO Active Vitamin D (Cholecalciferol) 10 MCG (400 UNIT) (2 sources) take 1 tablet by mouth once daily Vitamin D (Cholecalciferol) 10 MCG (400 UNIT) 1 tablet Orally Once a day Active Completed/Discontinued Medications Medication Drug Class(es) Dates Sig (Normalized) Sig (Original) allopurinol 300 mg oral tablet (12 sources) Xanthine Oxidase Inhibitor Start: 1 End: 3 take 300 mg by mouth once daily Allopurinol Discontinued 300 MG PO Daily January 23, 2021 11:00pm March 23, 2023 2:48pm amLODIPine 2.5 mg oral tablet (2 sources) Dihydropyridine Calcium Channel Niko Start: 1 End: 3 take 2.5 mg by mouth once daily Amlodipine Discontinued 2.5 MG PO Daily January 23, 2021 11:00pm March 23, 2023 2:48pm celecoxib 50 mg oral capsule (6 sources) Nonsteroidal Anti-inflammatory Drug take 1 capsule by mouth twice daily Celecoxib 50 MG Oral Capsule TAKE 1 CAPSULE TWICE DAILY. Quantity: 0 Refills: 0 Ordered: 13-May-2021 DO Active hydroCHLOROthiazide 12.5 mg / lisinopril 10 mg oral tablet (4 sources) Thiazide Diuretic, Angiotensin Converting Enzyme Inhibitor Start: 2 take 1 tablet by mouth once daily Lisinopril-hydro CHLOROthiazide 10-12.5 MG Oral Tablet TAKE 1 TABLET DAILY. Quantity: 90 Refills: 1 Ordered: 30-Jun-2022 Shashi Cottrell MD Start : 01-Jul-2021 Active insulin aspart, human 100 unt/ml injectable solution (2 sources) Insulin Analog NovoLOG 100 UNIT/ML Injection Solution as directed Quantity: 0 Refills: 0 Ordered: 08-Dec-2022 DO Active insulin detemir 100 unt/ml injectable solution (2 sources) Insulin Analog Levemir 100 UNIT/ML Subcutaneous Solution as directed Quantity: 0 Refills: 0 Ordered: 08-Dec-2022 DO Active lisinopril 2.5 mg oral tablet (4 sources) Angiotensin Converting Enzyme Inhibitor Start: 1 End: 3 take 2.5 mg by mouth once daily Lisinopril Discontinued 2.5 MG PO Daily January 23, 2021 11:00pm March 23, 2023 2:48pm lovastatin 40 mg oral tablet (10 sources) HMG-CoA Reductase Inhibitor Start: 1 End: 3 take 40 mg by mouth once daily Lovastatin Discontinued 40 MG PO Daily January 23, 2021 11:00pm March 23, 2023 2:48pm metFORMIN hydrochloride 500 mg oral tablet (10 sources) Biguanide Start: End: 3 take 500 mg by mouth twice daily Metformin Discontinued 500 MG PO Twice daily January 23, 2021 11:00pm March 23, 2023 2:48pm metFORMIN HCl 10 00 MG 1 /2 tablet with a meal Orally TWICE A DAY Active nitroglycerin 0.4 mg sublingual tablet (4 sources) Nitrate Vasodilator Nitroglyceri n 0.4 MG as directed Sublingual Not-Taking/PRN Nitroglycerin 0. [address] 1 TABLET UNDER THE TONGUE EVERY 5 MINUTES FOR UP TO 3 DOSES NEEDED FOR CHEST PAIN.CALL 911 IF PAIN PERSISTS. Quantity: 1 Refills: 0 Ordered: 08-Dec-2022 DO Active Ozempic (0.25 or 0.5 MG/DOSE) SOPN (2 sources) Ozempic (0.25 or 0.5 MG/DOSE) SOPN as directed Quantity: 0 Refills: 0 Ordered: 08-Dec-2022 DO Active tiZANidine 4 mg oral tablet (10 sources) Central alpha-2 Adrenergic Agonist Start: 01-24-2021 End: 03-23-2023 take 4 mg by mouth twice daily Tizanidine Discontinued 4 MG PO Twice daily January 23, 2021 11:00pm March 23, 2023 2:48pm Zanaflex CAPS TA KE 1 CAPSULE TWICE DAILY NEEDED. Quantity: 0 Refills: 0 Ordered: 13-May-2021 DO Active Problems Active Problems Problem Classification Problem Date Documented Date Episodic/Chronic Abdominal pain (4 sources) Abdominal pain; Translations: [Unspecified abdominal pain] Episodic Chronic kidney disease (6 sources) Chronic kidney disease stage 3; Translations: [Chronic kidney disease, stage 3 (moderate)] Chronic Chronic kidney disease (2 sources) Chronic kidney disease; Translations: [Chronic kidney disease, stage 3 unspecified] Onset: 3 Chronic obstructive pulmonary disease and bronchiectasis (1 source) Chronic obstructive pulmonary disease, unspecified; Translations: [COPD UNSPECIFIED] Onset: 2 Chronic Diabetes mellitus with complications (10 sources) Disorder of kidney due to diabetes mellitus; Translations: [Type 2 diabetes mellitus with diabetic chronic kidney disease] Onset: 2 Chronic Diabetes mellitus without complication (5 sources) Diabetes mellitus; Translations: [Diabetes mellitus without mention of complication, type II or unspecified type, not stated as uncontrolled] Onset: 3 Chronic Diabetes mellitus without complication (1 source) Diabetes mellitus without complication; Translations: [Type 2 diabetes mellitus with diabetic chronic kidney disease] Onset: 3 Diseases of white blood cells (5 sources) Elevated white blood cell count, unspecified; Translations: [Leukocytosis] Onset: 2 Chronic Disorders of lipid metabolism (5 sources) Hyperlipidemia, unspecified; Translations: [HYPERLIPIDEMIA UNSPECIFIED] Onset: 2 Chronic Essential hypertension (4 sources) Hypertensive disorder; Translations: [Unspecified essential hypertension] Chronic Hypertension with complications and secondary hypertension (7 sources) Malignant hypertensive chronic kidney disease; Translations: [Hypertensive chronic kidney disease with stage 1 through stage 4 chronic kidney disease, or unspecified chronic kidney disease] Onset: 2 Chronic Immunizations and screening for infectious disease (8 sources) Patient encounter status; Translations: [Other specified vaccination] Episodic Other and ill-defined heart disease (12 sources) Cardiomegaly; Translations: [Cardiomegaly] Chronic Other and ill-defined heart disease (1 source) Cardiomegaly Onset: 1 Resolved: 1 Chronic Other diseases of kidney and ureters (4 sources) Secondary hyperparathyroidism; Translations: [Secondary hyperparathyroidism of renal origin] Chronic Other diseases of kidney and ureters (2 sources) Secondary hyperparathyroidism of renal origin; Translations: [Secondary hyperparathyroidism of renal origin] Onset: 3 Chronic Other gastrointestinal disorders (4 sources) Constipation; Translations: [Constipation, unspecified] Episodic Other hereditary and degenerative nervous system conditions (1 source) Restless legs syndrome; Translations: [RESTLESS LEGS SYNDROME] Onset: 2 Chronic Other liver diseases (4 sources) Liver cyst; Translations: [Other specified diseases of liver] Chronic Other liver diseases (2 sources) Other specified diseases of liver; Translations: [Other specified diseases of liver] Onset: 3 Chronic Other lower respiratory disease (8 sources) Dyspnea; Translations: [Other respiratory abnormalities] Episodic Other nervous system disorders (1 source) Other chronic pain; Translations: [OTHER CHRONIC PAIN] Onset: 3 Chronic Other nutritional; endocrine; and metabolic disorders (8 sources) Obesity; Translations: [Obesity, unspecified] Chronic Other nutritional; endocrine; and metabolic disorders (4 sources) Obese class I; Translations: [Body mass index (BMI) 33.0-33.9, adult] Chronic Other nutritional; endocrine; and metabolic disorders (4 sources) Hypomagnesemia; Translations: [Hypomagnesemia] Chronic Other nutritional; endocrine; and metabolic disorders (4 sources) Hypermagnesemia; Translations: [Hypermagnesemia] Chronic Other nutritional; endocrine; and metabolic disorders (2 sources) Hypomagnesemia; Translations: [Hypomagnesemia] Onset: 3 Chronic Other nutritional; endocrine; and metabolic disorders (2 sources) Hyperuricemia without signs of inflammatory arthritis and tophaceous disease; Translations: [Hyperuricemia without signs of inflammatory arthritis and tophaceous disease] Onset: 3 Episodic Spondylosis; intervertebral disc disorders; other back problems (14 sources) Prolapsed cervical intervertebral disc; Translations: [Other cervical disc displacement, unspecified cervical region] Onset: 2 Resolved: 2 Chronic Substance-related disorders (9 sources) Smoker; Translations: [Tobacco use disorder] Onset: 2 Chronic Comment on above: 1/2 pack daily.; Unclassified (4 sources) LOW BACK PAIN, UNSPECIFIED; Translations: [LOW BACK PAIN, UNSPECIFIED] Onset: 2 Unclassified (1 source) CHRN KIDNEY DISEASE STG 3 UNSP; Translations: [CHRN KIDNEY DISEASE STG 3 UNSP] Onset: 3 Unclassified (1 source) CONTACT W/AND (SUSP) EXPOS COVID-19; Translations: [CONTACT W/AND (SUSP) EXPOS COVID-19] Onset: 2 Past or Other Problems Problem Classification Problem Date Documented Da te Episodic/Chronic Nonmalignant breast conditions (1 source) Other specified disorders of breast; Translations: [OTHER SPECIFIED DISORDERS OF BREAST] Onset: 12-04-2021 Episodic Nonspecific chest pain (4 sources) Chest pain, unspecified; Translations: [CHEST PAIN UNSPECIFIED] Onset: 11-28-2021 Episodic Other aftercare (1 source) Other halfway (current) drug therapy; Translations: [OTH CHANNEL LIP 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 CURRENT DRUG THERAPY] Onset: 12-04-2021 Episodic Other lower respiratory disease (1 source) Shortness of breath; Translations: [SHORTNESS OF BREATH] Onset: 12-04-2021 Episodic Residual codes; unclassified (1 source) Procedure and treatment not carried out for other reasons; Translations: [PROC AND TX NOT CARRIED OUT OTH REASONS] Onset: 05-28-2022 Episodic Spondylosis; intervertebral disc disorders; other back problems (13 sources) Cervical disc disorder at C5-C6 level with radiculopathy; Translations: [Cervical disc disorder at C6-C7 level with radiculopathy] Onset: 04-09-2021 Resolved: 04-09-2021 Episodic Unclassified (1 source) LOW BACK PAIN, UNSPECIFIED; Translations: [LOW BACK PAIN, UNSPECIFIED] Onset: 07-17-2022 Results Test Name Value Interpretation Reference Range Facility Complete Blood Count Auto Di ffon 03-24-2023 Basophils (Bld) [#/Vol] 0.1 10*3/uL Normal 0.0-0.2 [place] Comment on above: Result Comment: PERF ORMED BY: [place] [address] PATHOLOGIST MACHINE TESTER SHANTE LOMBARDI M.D. Performed By: #### C BCNO, [id number], PTH, URIC, MG, RENAL, ADDONUAPLUS, CUU, PROCRERAT #### [facility] [address] [place] [address] Basophils/100 WBC (Bld) 0.7 % Normal . [facility] Comment on above: Performed By: #### C BCNO, [id number], PTH, URIC, MG, RENAL, ADDONUAPLUS, CUU, PROCRERAT #### [facility] [address] [place] [address] Eosinophils (Bld) [#/Vol] 0.4 10*3/uL Normal 0.0-0.45 [place] Comment on above: Performed By: #### C BCNO, [id number], PTH, URIC, MG, RENAL, ADDONUAPLUS, CUU, PROCRERAT #### [address] Eosinophils/100 WBC (Bld) 2.2 % Normal . [place] Comment on above: Performed By: #### C BCNO, [id number], PTH, URIC, MG, RENAL, ADDONUAPLUS, CUU, PROCRERAT #### [address] Erythrocyte distribution width (RBC) [Ratio] 14.4 % Normal 11.9-15.3 [place] Comment on above: Performed By: #### C BCNO, [id number], PTH, URIC, MG, RENAL, ADDONUAPLUS, CUU, PROCRERAT #### [address] Hematocrit (Bld) [Volume fraction] 42.6 % Normal 34.0-46.4 [place] Comment on above: Performed By: #### C BCNO, [id number], PTH, URIC, MG, RENAL, ADDONUAPLUS, CUU, PROCRERAT #### [address] Hemoglobin (Bld) [Mass/Vol] 14.2 g/dL Normal 11.8-15.4 [place] Comment on above: Performed By: #### C BCNO, [id number], PTH, URIC, MG, RENAL, ADDONUAPLUS, CUU, PROCRERAT #### [address] Lymphocytes (Bld) [#/Vol] 2.9 10*3/uL Normal 1.00-4.8 [place] Comment on above: Performed By: #### C BCNO, [id number], PTH, URIC, MG, RENAL, ADDONUAPLUS, CUU, PROCRERAT #### [address] Lymphocytes/100 WBC (Bld) 17.3 % Normal . [place] Comment on above: Performed By: #### C BCNO, [id number], PTH, URIC, MG, RENAL, ADDONUAPLUS, CUU, PROCRERAT #### [address] MCH (RBC) [Entitic mass] 30.2 pg Normal 24.7-34.3 [place] Comment on above: Performed By: #### C BCNO, [id number], PTH, URIC, MG, RENAL, ADDONUAPLUS, CUU, PROCRERAT #### [address] MCV (RBC) [Entitic vol] 90.7 fL Normal 80-100 [facility] Comment on above: Performed By: #### C BCNO, [id number], PTH, URIC, MG, RENAL, ADDONUAPLUS, CUU, PROCRERAT #### [address] Mean Corpuscular HGB Conc 33.3 g/dL Normal 32.0-35.0 [place] Comment on above: Performed By: #### C BCNO, [id number], PTH, URIC, MG, RENAL, ADDONUAPLUS, CUU, PROCRERAT #### [address] Monocytes (Bld) [#/Vol] 1.1 10*3/uL High 0.0-0.8 [place] Comment on above: Performed By: #### C BCNO, [id number], PTH, URIC, MG, RENAL, ADDONUAPLUS, CUU, PROCRERAT #### [address] Monocytes/100 WBC (Bld) 6.4 % Normal . [facility] Comment on above: Performed By: #### C BCNO, [id number], PTH, URIC, MG, RENAL, ADDONUAPLUS, CUU, PROCRERAT #### [address] Neutrophils (Bld) [#/Vol] 12.2 10*3/uL High 1.8-7.7 [place] Comment on above: Performed By: #### C BCNO, [id number], PTH, URIC, MG, RENAL, ADDONUAPLUS, CUU, PROCRERAT #### [address] Neutrophils/100 WBC (Bld) 73.4 % Normal . [place] Comment on above: Performed By: #### C BCNO, [id number], PTH, URIC, MG, RENAL, ADDONUAPLUS, CUU, PROCRERAT #### [address] NRBC% 0.1 /100{WBC} Normal 0-0.5 [place] Comment on above: Performed By: #### C BCNO, [id number], PTH, URIC, MG, RENAL, ADDONUAPLUS, CUU, PROCRERAT #### [address] Platelet mean volume (Bld) [Entitic vol] 8.5 fL Normal 6.3-10.7 [place] Comment on above: Performed By: #### C BCNO, [id number], PTH, URIC, MG, RENAL, ADDONUAPLUS, CUU, PROCRERAT #### [address] Platelets (Bld) [#/Vol] 302 10*3/uL Normal 150-450 [place] Comment on above: Performed By: #### C BCNO, [id number], PTH, URIC, MG, RENAL, ADDONUAPLUS, CUU, PROCRERAT #### [address] RBC (Bld) [#/Vol] 4.70 10*6/uL Normal 3.60-5.00 [facility] Comment on above: Performed By: #### C BCNO, [id number], PTH, URIC, MG, RENAL, ADDONUAPLUS, CUU, PROCRERAT #### [address] [place] [address] [facility] WBC (Bld) [#/Vol] 16.7 10*3/uL High 3.8-11.6 [facility] Comment on above: Performed By: #### C BCNO, [id number], PTH, URIC, MG, RENAL, ADDONUAPLUS, CUU, PROCRERAT #### [facility] [address] [id number] [facility] Albumin [Mass/volume] in Ser um or Plasma by Bromocresol green (BCG) dye binding methoOrdered By: Alat Schmid on 03-04-2023 Albumin BCG dye [Mass/Vol] 4.1 g/dL 3.5-5.7 [place] Automated erythrocytes count in urine sediment (number/area)Ordered By: Alta Schmid on 03-04-2023 RBC Auto (Urine sed) [#/Area] 0-1 [HPF] 0-4 [place] Automated leukocytes count i n urine sediment (number/area)Ordered By: Alta Schmid on 03-04-2023 WBC Auto (Urine sed) [#/Area] 5-9 [HPF] 0-4 [place] Bilirubin Test strip Ql (U)O rdered By: Alta Schmid on 03-04-2023 Bilirubin Ql (U) Negative Negative [facility] Calcium [Mass/volume] in Ser um or PlasmaOrdered By: Alta Schmid on 03-04-2023 Calcium [Mass/Vol] 9.2 mg/dL 8.6-10.3 [facility] Carbon dioxide, total [Moles /volume] in Serum or PlasmaOrdered By: Alta Sharmaine on 03-04-2023 CO2 [Moles/Vol] 25.4 mmol/L 21.0-31.0 [facility] Chloride [Moles/volume] in S carlos or PlasmaOrdered By: Alta Sharmaine on 03-04-2023 Chloride [Moles/Vol] 104 mmol/L 98-107 [facility] Color Auto (U)Ordered By: Ab richard Schmid on 03-04-2023 Color (U) Yellow Yellow [place] Creatinine [Mass/volume] in Serum or PlasmaOrdered By: Alta Schmid on 03-04-2023 Creatinine [Mass/Vol] 1.59 mg/dL 0.60-1.20 [facility] Creatinine [Mass/volume] in UrineOrdered By: Alta Schmid on 03-04-2023 Creatinine (U) [Mass/Vol] 100.0 mg/dL 11.0-20.0 [place] Dipstick and Microscopicon 1 05-04-2022 Appearance (U) Clear Normal Clear [place] Comment on above: Order Comment: Reaso n for Exam Chronic kidney disease, stage III (moderate);Diabetes mellit Performed By: #### C BCNO, [id number], PTH, URIC, MG, RENAL, ADDONUAPLUS, CUU, PROCRERAT #### [facility] [address] [place] [address] Bacteria,Urine None Seen Normal None Seen [place] Comment on above: Order Comment: Reaso n for Exam Chronic kidney disease, stage III (moderate);Diabetes mellit Performed By: #### C BCNO, [id number], PTH, URIC, MG, RENAL, ADDONUAPLUS, CUU, PROCRERAT #### [facility] [address] [place] [address] [place] Bilirubin,Urine Negative Normal Negative [place] Comment on above: Order Comment: Reaso n for Exam Chronic kidney disease, stage III (moderate);Diabetes mellit Performed By: #### C BCNO, [id number], PTH, URIC, MG, RENAL, ADDONUAPLUS, CUU, PROCRERAT #### [facility] [address] [place] [address] [place] Color (U) Yellow Normal Yellow [place] Comment on above: Order Comment: Reaso n for Exam Chronic kidney disease, stage III (moderate);Diabetes mellit Performed By: #### C BCNO, [id number], PTH, URIC, MG, RENAL, ADDONUAPLUS, CUU, PROCRERAT #### [facility] [address] [place] [address] [place] Glucose Ql (U) Normal Normal Normal [place] Comment on above: Order Comment: Reaso n for Exam Chronic kidney disease, stage III (moderate);Diabetes mellit Performed By: #### C BCNO, [id number], PTH, URIC, MG, RENAL, ADDONUAPLUS, CUU, PROCRERAT #### [facility] [address] [place] [address] Hyaline Casts,Urine 0-8 Normal 0-8 [facility] Comment on above: Order Comment: Reaso n for Exam Chronic kidney disease, stage III (moderate);Diabetes mellit Result Comment: PERF ORMED BY: [place] [address] PATHOLOGIST MACHINE TESTER SHANTE LOMBARDI M.D. Performed By: #### C BCNO, [id number], PTH, URIC, MG, RENAL, ADDONUAPLUS, CUU, PROCRERAT #### [facility] [address] [place] [address] Ketones Ql (U) Negative Normal Negative [place] Comment on above: Order Comment: Reaso n for Exam Chronic kidney disease, stage III (moderate);Diabetes mellit Performed By: #### C BCNO, [id number], PTH, URIC, MG, RENAL, ADDONUAPLUS, CUU, PROCRERAT #### [facility] [address] [place] [address] Leukocyte esterase Test strip Ql (U) 1+ High Negative [place] Comment on above: Order Comment: Reaso n for Exam Chronic kidney disease, stage III (moderate);Diabetes mellit Performed By: #### C BCNO, [id number], PTH, URIC, MG, RENAL, ADDONUAPLUS, CUU, PROCRERAT #### [facility] [address] [place] [address] Nitrite,Urine Negative Normal Negative [place] Comment on above: Order Comment: Reaso n for Exam Chronic kidney disease, stage III (moderate);Diabetes mellit Performed By: #### C BCNO, [id number], PTH, URIC, MG, RENAL, ADDONUAPLUS, CUU, PROCRERAT #### [facility] [address] Occult Blood,Urine Negative Normal Negative [facility] Comment on above: Order Comment: Reaso n for Exam Chronic kidney disease, stage III (moderate);Diabetes mellit Performed By: #### C BCNO, [id number], PTH, URIC, MG, RENAL, ADDONUAPLUS, CUU, PROCRERAT #### [address] pH (U) 5.5 [pH] Normal 5.0-9.0 [place] Comment on above: Order Comment: Reaso n for Exam Chronic kidney disease, stage III (moderate);Diabetes mellit Performed By: #### C BCNO, [id number], PTH, URIC, MG, RENAL, ADDONUAPLUS, CUU, PROCRERAT #### [address] Protein,Urine Negative Normal Negative [place] Comment on above: Order Comment: Reaso n for Exam Chronic kidney disease, stage III (moderate);Diabetes mellit Performed By: #### C BCNO, [id number], PTH, URIC, MG, RENAL, ADDONUAPLUS, CUU, PROCRERAT #### [address] RBC LM.HPF (Urine sed) [#/Area] 0 /[HPF] Normal 0-4 [place] Comment on above: Order Comment: Reaso n for Exam Chronic kidney disease, stage III (moderate);Diabetes mellit Performed By: #### C BCNO, [id number], PTH, URIC, MG, RENAL, ADDONUAPLUS, CUU, PROCRERAT #### [address] Specificy Roland,Urine 1.014 Normal 1.001-1.030 [place] Comment on above: Order Comment: Reaso n for Exam Chronic kidney disease, stage III (moderate);Diabetes mellit Performed By: #### C BCNO, [id number], PTH, URIC, MG, RENAL, ADDONUAPLUS, CUU, PROCRERAT #### [facility] [address] Squamous Epithelial Cell,Urine 5-9 High 0-2 [place] Comment on above: Order Comment: Reaso n for Exam Chronic kidney disease, stage III (moderate);Diabetes mellit Performed By: #### C BCNO, [id number], PTH, URIC, MG, RENAL, ADDONUAPLUS, CUU, PROCRERAT #### [facility] [address] Urobilinogen,Urine Normal Normal Normal [facility] Comment on above: Order Comment: Reaso n for Exam Chronic kidney disease, stage III (moderate);Diabetes mellit Performed By: #### C BCNO, [id number], PTH, URIC, MG, RENAL, ADDONUAPLUS, CUU, PROCRERAT #### [facility] [address] WBC,Urine 5-9 High 0-4 [place] Comment on above: Order Comment: Reaso n for Exam Chronic kidney disease, stage III (moderate);Diabetes mellit Performed By: #### C BCNO, [id number], PTH, URIC, MG, RENAL, ADDONUAPLUS, CUU, PROCRERAT #### [facility] [address] [place] [address] Erythrocyte distribution wid th Auto (RBC) [Ratio]Ordered By: Alta Schmid on 03-04-2023 Erythrocyte distribution width (RBC) [Ratio] 14.8 % 11.9-15.3 [place] Glucose [Mass/volume] in Ser um or PlasmaOrdered By: Alta Schmid on 03-04-2023 Glucose [Mass/Vol] 232 mg/dL 70-100 [facility] Comment on above: ADA recommended refe rence rangeRandom Glucose Reference Range is dependent on time and content of last meal. Glucose of more than 200 mg/dL in a nonstressed, ambulatory subject supports the diagnosis of Diabetes Mellitus. Hematocrit Auto (Bld) [Volum e fraction]Ordered By: Alta Schmid on 03-04-2023 Hematocrit (Bld) [Volume fraction] 42.6 % 34.0-46.4 [place] Hemoglobin [Mass/volume] in BloodOrdered By: Alta Schmid on 03-04-2023 Hemoglobin (Bld) [Mass/Vol] 14.5 g/dL 11.8-15.4 [place] Hemogram CBC Without Diffon 03-04-2023 Erythrocyte distribution width (RBC) [Ratio] 14.8 % Normal 11.9-15.3 [place] Comment on above: Order Comment: Reaso n for Exam Chronic kidney disease, stage III (moderate);Diabetes mellit Performed By: #### C BCNO, [id number], PTH, URIC, MG, RENAL, ADDONUAPLUS, CUU, PROCRERAT #### [facility] [address] Hematocrit (Bld) [Volume fraction] 42.6 % Normal 34.0-46.4 [place] Comment on above: Order Comment: Reaso n for Exam Chronic kidney disease, stage III (moderate);Diabetes mellit Performed By: #### C BCNO, [id number], PTH, URIC, MG, RENAL, ADDONUAPLUS, CUU, PROCRERAT #### [facility] [address] Hemoglobin (Bld) [Mass/Vol] 14.5 g/dL Normal 11.8-15.4 [place] Comment on above: Order Comment: Reaso n for Exam Chronic kidney disease, stage III (moderate);Diabetes mellit Performed By: #### C BCNO, [id number], PTH, URIC, MG, RENAL, ADDONUAPLUS, CUU, PROCRERAT #### [facility] [address] MCH (RBC) [Entitic mass] 31.1 pg Normal 24.7-34.3 [place] Comment on above: Order Comment: Reaso n for Exam Chronic kidney disease, stage III (moderate);Diabetes mellit Performed By: #### C BCNO, [id number], PTH, URIC, MG, RENAL, ADDONUAPLUS, CUU, PROCRERAT #### [address] MCV (RBC) [Entitic vol] 91.6 fL Normal 80-100 [facility] Comment on above: Order Comment: Reaso n for Exam Chronic kidney disease, stage III (moderate);Diabetes mellit Performed By: #### C BCNO, [id number], PTH, URIC, MG, RENAL, ADDONUAPLUS, CUU, PROCRERAT #### [address] Mean Corpuscular HGB Conc 34.0 g/dL Normal 32.0-35.0 [place] Comment on above: Order Comment: Reaso n for Exam Chronic kidney disease, stage III (moderate);Diabetes mellit Performed By: #### C BCNO, [id number], PTH, URIC, MG, RENAL, ADDONUAPLUS, CUU, PROCRERAT #### [address] Platelet mean volume (Bld) [Entitic vol] 8.5 fL Normal 6.3-10.7 [place] Comment on above: Order Comment: Reaso n for Exam Chronic kidney disease, stage III (moderate);Diabetes mellit Result Comment: PERF ORMED BY: [place] [address] PATHOLOGIST MACHINE TESTER SHANTE LOMBARDI M.D. Performed By: #### C BCNO, [id number], PTH, URIC, MG, RENAL, ADDONUAPLUS, CUU, PROCRERAT #### [address] Platelets (Bld) [#/Vol] 327 10*3/uL Normal 150-450 [place] Comment on above: Order Comment: Reaso n for Exam Chronic kidney disease, stage III (moderate);Diabetes mellit Performed By: #### C BCNO, [id number], PTH, URIC, MG, RENAL, ADDONUAPLUS, CUU, PROCRERAT #### [address] RBC (Bld) [#/Vol] 4.65 10*6/uL Normal 3.60-5.00 [facility] Comment on above: Order Comment: Reaso n for Exam Chronic kidney disease, stage III (moderate);Diabetes mellit Performed By: #### C BCNO, [id number], PTH, URIC, MG, RENAL, ADDONUAPLUS, CUU, PROCRERAT #### [facility] [address] WBC (Bld) [#/Vol] 16.2 10*3/uL High 3.8-11.6 [facility] Comment on above: Order Comment: Reaso n for Exam Chronic kidney disease, stage III (moderate);Diabetes mellit Performed By: #### C BCNO, [id number], PTH, URIC, MG, RENAL, ADDONUAPLUS, CUU, PROCRERAT #### [facility] [address] Ketones Auto test strip (U) [Mass/Vol]Ordered By: Alta Schmid on 03-04-2023 Ketones (U) [Mass/Vol] Negative Negative [facility] - UrinalysisOrder ed By: Alta Schmid on 03-04-2023 Hyaline casts LM Ql (Urine sed) 0-8 [LPF] 0-8 [place] Leukocytes [#/volume] correc janet for nucleated erythrocytes in Blood by Automated counOrdered By: Alta Schmid on 03-04-2023 WBC corrected for nucl RBC Auto (Bld) [#/Vol] 16.2 10*3/uL 3.8-11.6 [place] MCH Auto (RBC) [Entitic mass ]Ordered By: Alta Schmid on 03-04-2023 MCH (RBC) [Entitic mass] 31.1 pg 24.7-34.3 [place] MCHC Auto (RBC) [Mass/Vol]Or dered By: Alta Schmid on 03-04-2023 MCHC (RBC) [Mass/Vol] 34.0 g/dL 32.0-35.0 [facility] MCV Auto (RBC) [Entitic vol] Ordered By: Alta Schmid on 03-04-2023 MCV (RBC) [Entitic vol] 91.6 fL 80-100 [facility] Magnesiumon 03-04-2023 Magnesium [Mass/Vol] 1.4 mg/dL Low 1.9-2.7 [facility] Comment on above: Order Comment: Reaso n for Exam Chronic kidney disease, stage III (moderate);Diabetes mellit Performed By: #### C BCNO, [id number], PTH, URIC, MG, RENAL, ADDONUAPLUS, CUU, PROCRERAT #### [facility] [address] [place] [address] [facility] Magnesium [Mass/volume] in S carlos or PlasmaOrdered By: Alta Schmid on 03-04-2023 Magnesium [Mass/Vol] 1.4 mg/dL 1.9-2.7 [facility] Nitrite Test strip Ql (U)Ord ered By: Alta Schmid on 03-04-2023 Nitrite Ql (U) Negative Negative [place] No Panel InformationOrdered By: Alta Schmid on 03-04-2023 Estimated GFR (CKD-EPI) 35.395 mL/Min [place] [facility] Creatinine Clearance (Chem N/A [place] Parathyrin.intact [Mass/volu me] in Serum or PlasmaOrdered By: Alta Schmid on 03-04-2023 Parathyrin.intact [Mass/Vol] 87.0 pg/mL [place] Parathyroid Hormone Intacton 03-04-2023 Parathyroid Hormone Intact 87.0 pg/mL Normal [place] Comment on above: Order Comment: Reaso n for Exam Chronic kidney disease, stage III (moderate);Diabetes mellit Result Comment: PERF ORMED BY: [address] [address] PATHOLOGIST MACHINE TESTER SHANTE LOMBARDI M.D. Performed By: #### C BCNO, [id number], PTH, URIC, MG, RENAL, ADDONUAPLUS, CUU, PROCRERAT #### [facility] [address] [place] [address] [place] Phosphate [Mass/volume] in S carlos or PlasmaOrdered By: Alta Schmid on 03-04-2023 Phosphate [Mass/Vol] 4.0 mg/dL 3.7-7.2 [facility] Platelet mean volume Auto (B ld) [Entitic vol]Ordered By: Alta Schmid on 03-04-2023 Platelet mean volume (Bld) [Entitic vol] 8.5 fL 6.3-10.7 [place] Platelets Auto (Bld) [#/Vol] Ordered By: Alta Schmid on 03-04-2023 Platelets (Bld) [#/Vol] 327 10*3/uL 150-450 [place] Potassium [Moles/volume] in Serum or PlasmaOrdered By: Alta Schmid on 03-04-2023 Potassium [Moles/Vol] 4.9 mmol/L 3.5-5.1 [facility] Protein Auto test strip (U) [Mass/Vol]Ordered By: Alta Schmid on 03-04-2023 Protein (U) [Mass/Vol] Negative Negative [facility] Protein Creat Ratio Ur Rando mon 03-04-2023 Creatinine, Urine (Random) 100.0 mg/dL High 11.0-20.0 [place] Comment on above: Order Comment: Reaso n for Exam Chronic kidney disease, stage III (moderate);Diabetes mellit Performed By: #### P ROCRERAT #### [facility] [address] [place] [id number] [facility] Protein (U) [Mass/Vol] 14 mg/dL High 0-9 [facility] Comment on above: Order Comment: Reaso n for Exam Chronic kidney disease, stage III (moderate);Diabetes mellit Performed By: #### P ROCRERAT #### [facility] [address] [place] [id number] [facility] Urine Protein/Creatinine Ratio 140 mg/g{Cre} Normal 0-200 [place] Comment on above: Order Comment: Reaso n for Exam Chronic kidney disease, stage III (moderate);Diabetes mellit Result Comment: PERF ORMED BY: [facility] [address] [place] [address] PATHOLOGIST MACHINE TESTER SHANTE LOMBARDI M.D. Performed By: #### P ROCRERAT #### [facility] [address] Protein [Mass/volume] in Uri neOrdered By: Alta Sharmaine on 03-04-2023 Protein (U) [Mass/Vol] 14 mg/dL 0-9 [facility] RBC Auto (Bld) [#/Vol]Ordere d By: Alta Sharmaine on 03-04-2023 RBC (Bld) [#/Vol] 4.65 10*6/uL 3.60-5.00 [facility] Renal Function Panelon 03-04 Albumin [Mass/Vol] 4.1 g/dL Normal 3.5-5.7 [facility] Comment on above: Order Comment: Reaso n for Exam Chronic kidney disease, stage III (moderate);Diabetes mellit Performed By: #### C BCNO, [id number], PTH, URIC, MG, RENAL, ADDONUAPLUS, CUU, PROCRERAT #### [facility] [address] [place] [address] Anion gap [Moles/Vol] 13.5 mmol/L Normal 6.0-15.0 [facility] Comment on above: Order Comment: Reaso n for Exam Chronic kidney disease, stage III (moderate);Diabetes mellit Performed By: #### C BCNO, [id number], PTH, URIC, MG, RENAL, ADDONUAPLUS, CUU, PROCRERAT #### [facility] [address] [place] [address] [place] Calcium [Mass/Vol] 9.2 mg/dL Normal 8.6-10.3 [facility] Comment on above: Order Comment: Reaso n for Exam Chronic kidney disease, stage III (moderate);Diabetes mellit Performed By: #### C BCNO, [id number], PTH, URIC, MG, RENAL, ADDONUAPLUS, CUU, PROCRERAT #### [place] [id number] [place] Chloride [Moles/Vol] 104 mmol/L Normal 98-107 [facility] Comment on above: Order Comment: Reaso n for Exam Chronic kidney disease, stage III (moderate);Diabetes mellit Performed By: #### C BCNO, [id number], PTH, URIC, MG, RENAL, ADDONUAPLUS, CUU, PROCRERAT #### [facility] [address] [place] [id number] [place] CO2 [Moles/Vol] 25.4 mmol/L Normal 21.0-31.0 [facility] Comment on above: Order Comment: Reaso n for Exam Chronic kidney disease, stage III (moderate);Diabetes mellit Performed By: #### C BCNO, [id number], PTH, URIC, MG, RENAL, ADDONUAPLUS, CUU, PROCRERAT #### [facility] [address] Creatinine [Mass/Vol] 1.59 mg/dL High 0.60-1.20 [facility] Comment on above: Order Comment: Reaso n for Exam Chronic kidney disease, stage III (moderate);Diabetes mellit Performed By: #### C BCNO, [id number], PTH, URIC, MG, RENAL, ADDONUAPLUS, CUU, PROCRERAT #### [facility] [address] [place] [address] [place] GFR/1.73 sq M.predicted MDRD (S/P/Bld) [Vol rate/Area] 35.395 mL/min/{1.73_m2} Normal [place] Comment on above: Order Comment: Reaso n for Exam Chronic kidney disease, stage III (moderate);Diabetes mellit Performed By: #### C BCNO, [id number], PTH, URIC, MG, RENAL, ADDONUAPLUS, CUU, PROCRERAT #### [facility] [address] [place] [id number] [place] Glucose [Mass/Vol] 232 mg/dL High 70-100 [facility] Comment on above: Order Comment: Reaso n for Exam Chronic kidney disease, stage III (moderate);Diabetes mellit Result Comment: [place] om Glucose Reference Range is dependent on time and content of last meal. Glucose of more than 200 mg/dL in a nonstressed, ambulatory subject supports the diagnosis of Diabetes Mellitus. ADA recommended reference range Performed By: #### C BCNO, [id number], PTH, URIC, MG, RENAL, ADDONUAPLUS, CUU, PROCRERAT #### [facility] [address] Phosphate [Mass/Vol] 4.0 mg/dL Normal 3.7-7.2 [facility] Comment on above: Order Comment: Reaso n for Exam Chronic kidney disease, stage III (moderate);Diabetes mellit Performed By: #### C BCNO, [id number], PTH, URIC, MG, RENAL, ADDONUAPLUS, CUU, PROCRERAT #### [facility] [address] Potassium [Moles/Vol] 4.9 mmol/L Normal 3.5-5.1 [facility] Comment on above: Order Comment: Reaso n for Exam Chronic kidney disease, stage III (moderate);Diabetes mellit Performed By: #### C BCNO, [id number], PTH, URIC, MG, RENAL, ADDONUAPLUS, CUU, PROCRERAT #### [facility] [address] [place] [address] Sodium [Moles/Vol] 138 mmol/L Normal 136-145 [facility] Comment on above: Order Comment: Reaso n for Exam Chronic kidney disease, stage III (moderate);Diabetes mellit Performed By: #### C BCNO, [id number], PTH, URIC, MG, RENAL, ADDONUAPLUS, CUU, PROCRERAT #### [facility] [address] [place] [address] [place] Urea nitrogen [Mass/Vol] 42 mg/dL High 7-25 [place] Comment on above: Order Comment: Reaso n for Exam Chronic kidney disease, stage III (moderate);Diabetes mellit Performed By: #### C BCNO, [id number], PTH, URIC, MG, RENAL, ADDONUAPLUS, CUU, PROCRERAT #### [facility] [address] Serum or plasma anion gap de terminationOrdered By: Alta Fletcherr on 03-04-2023 Anion gap [Moles/Vol] 13.5 mmol/L 6.0-15.0 [facility] Sodium [Moles/volume] in Ser um or PlasmaOrdered By: Alta Sharmaine on 03-04-2023 Sodium [Moles/Vol] 138 mmol/L 136-145 [facility] Specific gravity Auto test s trip (U) [Rel density]Ordered By: Alta Schmid on 03-04-2023 Specific gravity (U) [Rel density] 1.014 1.001-1.030 [place] Squamous epithelial cells de tection in urine sediment by light microscopyOrdered By: Alta Schmid on 03-04-2023 Epithelial cells.squamous LM Ql (Urine sed) 5-9 [HPF] 0-2 [place] Urate [Mass/volume] in Serum or PlasmaOrdered By: Alta Schmid on 03-04-2023 Urate [Mass/Vol] 10.7 mg/dL 2.3-6.6 [facility] Urea nitrogen [Mass/volume] in Serum or PlasmaOrdered By: Alta Fletcherr on 03-04-2023 Urea nitrogen [Mass/Vol] 42 mg/dL 7-25 [place] Uric Acidon 03-04-2023 Urate [Mass/Vol] 10.7 mg/dL High 2.3-6.6 [facility] Comment on above: Order Comment: Reaso n for Exam Chronic kidney disease, stage III (moderate);Diabetes mellit Performed By: #### C BCNO, [id number], PTH, URIC, MG, RENAL, ADDONUAPLUS, CUU, PROCRERAT #### [facility] [address] Urine Cultureon 03-04-2023 Bacteria identified Cx Nom (U) 75,000 colonies/ml mixed bacterial skin contaminants 2 Days PERFORMED BY: [facility] [address] [place] [address] PATHOLOGIST MACHINE TESTER SHANTE LOMBARDI M.D. Normal [place] Comment on above: Performed By: #### C BCNO, [id number], PTH, URIC, MG, RENAL, ADDONUAPLUS, CUU, PROCRERAT #### [facility] [address] Urine bacteria detection by automated methodOrdered By: Alta Schmid on 03-04-2023 Bacteria Auto Ql (U) None seen None Seen [facility] Urine clarity by refractomet ry automatedOrdered By: Alta Schmid on 03-04-2023 Clarity Refractometry automated (U) Clear Clear [place] Urine culture routineOrdered By: Alta Schmid on 03-04-2023 Bacteria identified Cx Nom (U) 2 Days [place] Urine glucose measurement by automated test strip (mass/volume)Ordered By: Alta Schmid on 03-04-2023 Glucose Auto test strip (U) [Mass/Vol] Normal mg/dL Normal [place] Urine hemoglobin detection b y automated test stripOrdered By: Alta Schmid on 03-04-2023 Hemoglobin Auto test strip Ql (U) Negative Negative [place] Urine leukocyte esterase det ection by automated test stripOrdered By: Alta Schmid on 03-04-2023 Leukocyte esterase Auto test strip Ql (U) 1+ Negative [place] Urine protein/creatinine rat ioOrdered By: Alta Schmid on 03-04-2023 Protein/Creatinine (U) [Ratio] 140 mg/g{Cre} 0-200 [place] Urobilinogen Auto test strip (U) [Mass/Vol]Ordered By: Alta Schmid on 03-04-2023 Urobilinogen (U) [Mass/Vol] Normal mg/dL Normal [place] Vitamin D 25 Hydroxy Totalon 03-04-2023 Vitamin D 25 Hydroxy Total 41.9 ng/mL Normal 30-100 [place] Comment on above: Order Comment: Reaso n for Exam Chronic kidney disease, stage III (moderate);Diabetes mellit Result Comment: DEBORAH MIN D STATUS 25(OH)VITAMIN D RANGE (ng/mL) Deficient <20 Insufficient 20 to <30 Sufficient 30 to 100 Reference: Isai Rich, Randa WALSH, et al. Evaluation,treatment, and prevention of vitamin D deficiency; an Endocrine Society clinical practice guideline. JCEM. 2010; 96(7):191-. PERFORMED BY: [facility] [address] [place] [id number] PATHOLOGIST MACHINE TESTER SHANTE LOMBARDI M.D. Performed By: #### C BCNO, [id number], PTH, URIC, MG, RENAL, ADDONUAPLUS, CUU, PROCRERAT #### [facility] [address] Vitamin D+Metabolites [Mass/ volume] in Serum or PlasmaOrdered By: Alta Schmid on 03-04-2023 Vitamin D+Metabolites [Mass/Vol] 41.9 ng/mL 30-100 [place] Comment on above: VITAMIN D STATUS 25( [place])VITAMIN D RANGE (ng/mL) Deficient <20 Insufficient 20 to <30Sufficient 30 to 100Reference: Isai Rich, Randa WALSH, et al. Evaluation,treatment, and prevention of vitamin D deficiency; an Endocrine Society clinical practice guideline. JCEM. 2010; 96(7):191-. pH Auto test strip (U)Ordere d By: Alta Schmid on 03-04-2023 pH (U) 5.5 [pH] 5.0-9.0 [place] Office Visit (Cardiology)on 12-08-2022 Follow-up visit Diagnoses/Problems Assessed Hypertension (401.9) (I10) Current smoker (305.1) (F17.200) 1/2 pack daily. Diabetes (250.00) (E11.9) Class 1 obesity with body mass index (BMI) of 32.0 to 32.9 in adult (278.00,V85.32) (E66.9,Z68.32) Orders Class 1 obesity with body mass index (BMI) of 32.0 to 32.9 in adult Healthy Weight Tips; Status:Complete; Done: [id number] Some eating tips that can help you lose weight.; Status:Complete; Done: [id number] SocHx: Current smoker Tobacco Use Screening; Status:Complete; Done: [id number] You need to stop smoking. Though it is not easy, more than half of all adult smokers have quit. We encourage you to write down all the reasons you should quit smoking and set a quit date for yourself. Ask us how we can help. You may also call 8-175-EOAB-NOW for free resources and assistance.; Status:Complete; Done: [id number] Patient Instructions Please bring all medicines, vitamins, and herbal supplements with you when you come to the office. Prescriptions will not be filled unless you are compliant with your follow up appointments or have a follow up appointment scheduled as per instruction of your physician. Refills should be requested at the time of your visit. Follow up as needed only Chief Complaint VIDHYA IBARRA is being seen for an annual follow-up of. History of Present Illness Patient returns in follow-up of problems as noted. In the interim she is done well. Blood pressure is well-controlled but she arrives today in need of a prescription and it was provided. Chart review was undertaken. The reason for original consultation was concerns regarding cardiomegaly which turned out to not be the case. We have not been able to identify any evidence of coronary disease, cardiomyopathy, or arrhythmia and because of all the above we believe heart regular needs for cardiac visits and/or care is unlikely and we suggest henceforth she be seen as needed and follow-up primarily with her PCP. She is in agreement. We did advocate the merits of diet weight loss and more importantly smoking cessation. Surgical History Problems History of Cardiac catheterization History of Cholecystectomy History of Complete colonoscopy Resolved Date: 04 May 2020 History of Dilation and curettage Current Meds Medication NameInstruction Allopurinol 300 MG Oral TabletTAKE 1 TABLET DAILY. Bumetanide 0.5 MG Oral TabletTAKE 1 TABLET DAILY. Gabapentin 400 MG Oral CapsuleTAKE 1 CAPSULE 3 TIMES DAILY. glipiZIDE XL 10 MG Oral Tablet Extended Release 24 HourTAKE 1 TABLET DAILY DIRECTED. Levemir 100 UNIT/ML Subcutaneous Solutionas directed Lisinopril-hydroCHL OROthiazide 10-12.5 MG Oral TabletTAKE 1 TABLET DAILY. Lovastatin 40 MG Oral TabletTAKE 1 TABLET AT BEDTIME. Metoprolol Tartrate 50 MG Oral TabletTAKE 2 TABLETS DAILY. Nitroglycerin 0.4 MG Sublingual Tablet SublingualPLACE 1 TABLET UNDER THE TONGUE EVERY 5 MINUTES FOR UP TO 3 DOSES NEEDED FOR CHEST PAIN.CALL 911 IF PAIN PERSISTS. NovoLOG 100 UNIT/ML Injection Solutionas directed Ozempic (0.25 or 0.5 MG/DOSE) SOPNas directed Paxil 10 MG Oral TabletTAKE 1 TABLET DAILY. Percocet 5-325 MG Oral TabletTake 1 tablet twice daily traZODone HCl - 150 MG Oral TabletTAKE 1 TABLET AT BEDTIME. Patient did not bring medication list or bottles. Updated verbally with patient. Allergies Medication predniSONE Allergy; Hives;; Recorded By: Valeria Jarvis; 05/13/2021 11:04:28 AM Social History Problems Current smoker (305.1) (F17.200) 1/2 pack daily. Daily caffeine consumption 2-3 cups of coffee daily. No alcohol use No illicit drug use Review of Systems Constitutional: not feeling tired. Eyes: no eyesight problems. ENT: no hearing loss and no nosebleeds. Cardiovascular: no intermittent leg claudication and as noted in HPI. Respiratory: no chronic cough and no shortness of breath. Gastrointestinal: no change in bowel habits and no blood in stools. Genitourinary: no urinary frequency. Skin: no skin rashes. Neurological: no seizures and no frequent falls. Psychiatric: no depression and not suicidal. All other systems have been reviewed and are negative for complaint. Vitals Vital Signs Recorded: 08Dec2022 08:41AM Heart Rate66, R Radial Rtagvxhy279, RUE, Sitting Wodjjgibh35, RUE, Sitting Height5 ft 3 in Freorq044 lb BMI Xtfdwdgvsp17.95 kg/m2 BSA Calculated1.88 Tobacco Usea) Yes Patient encouraged to stop using tobacco productsYes PHQ-2 Patient Declined/Screening not indicatedYes Falls Screening (Age 18+)a) No falls within the last year Physical Exam Constitutional: alert and in no acute distress. Eyes: no erythema, swelling or discharge from the eye . Neck: neck is supple, symmetric, trachea midline, no masses and no thyromegaly . Pulmonary: no increased work of breathing or signs of respiratory distress and lungs clear to auscultation. Cardiovascular: carotid pulses 2+ bilaterally with no bruit , JVP w (more content not included)... Normal [employer] Tobacco Screening.on 023 Fall risk assessment a) No falls within the last year -[facility] DO Work Phone: Tobacco use status CP a) Yes M -[facility] DO Work Phone: Tobacco Screening. Yes [facility] 250 DO Work Phone: Dipstick and Microscopicon 0 09-18-2022 Appearance (U) Cloudy Critically abnormal Clear [place] Comment on above: Order Comment: Reaso n for Exam Chronic kidney disease, stage III (moderate);Diabetes mellit Name Collection Type:: Clean-Voided Midstream Performed By: #### C BCNO, [id number], PTH, URIC, MG, RENAL, ADDONUAPLUS, CUU, PROCRERAT #### [facility] [address] [place] [id number] [place] Bacteria,Urine 4+ High None Seen [place] Comment on above: Order Comment: Reaso n for Exam Chronic kidney disease, stage III (moderate);Diabetes mellit Name Collection Type:: Clean-Voided Midstream Performed By: #### C BCNO, [id number], PTH, URIC, MG, RENAL, ADDONUAPLUS, CUU, PROCRERAT #### [facility] [address] [place] [address] [place] Bilirubin,Urine Negative Normal Negative [place] Comment on above: Order Comment: Reaso n for Exam Chronic kidney disease, stage III (moderate);Diabetes mellit Name Collection Type:: Clean-Voided Midstream Performed By: #### C BCNO, [id number], PTH, URIC, MG, RENAL, ADDONUAPLUS, CUU, PROCRERAT #### [facility] [address] [place] [address] [place] Color (U) Yellow Normal Yellow [place] Comment on above: Order Comment: Reaso n for Exam Chronic kidney disease, stage III (moderate);Diabetes mellit Name Collection Type:: Clean-Voided Midstream Performed By: #### C BCNO, [id number], PTH, URIC, MG, RENAL, ADDONUAPLUS, CUU, PROCRERAT #### [facility] [address] [place] [address] Glucose Ql (U) Normal Normal Normal [place] Comment on above: Order Comment: Reaso n for Exam Chronic kidney disease, stage III (moderate);Diabetes mellit Name Collection Type:: Clean-Voided Midstream Performed By: #### C BCNO, [id number], PTH, URIC, MG, RENAL, ADDONUAPLUS, CUU, PROCRERAT #### [address] Hyaline Casts,Urine 9-19 High 0-8 [facility] Comment on above: Order Comment: Reaso n for Exam Chronic kidney disease, stage III (moderate);Diabetes mellit Name Collection Type:: Clean-Voided Midstream Result Comment: PERF ORMED BY: [place] [address] PATHOLOGIST MACHINE TESTER SHANTE LOMBARDI M.D. Performed By: #### C BCNO, [id number], PTH, URIC, MG, RENAL, ADDONUAPLUS, CUU, PROCRERAT #### [address] Ketones Ql (U) Negative Normal Negative [place] Comment on above: Order Comment: Reaso n for Exam Chronic kidney disease, stage III (moderate);Diabetes mellit Name Collection Type:: Clean-Voided Midstream Performed By: #### C BCNO, [id number], PTH, URIC, MG, RENAL, ADDONUAPLUS, CUU, PROCRERAT #### [address] Leukocyte esterase Test strip Ql (U) 3+ High Negative [place] Comment on above: Order Comment: Reaso n for Exam Chronic kidney disease, stage III (moderate);Diabetes mellit Name Collection Type:: Clean-Voided Midstream Performed By: #### C BCNO, [id number], PTH, URIC, MG, RENAL, ADDONUAPLUS, CUU, PROCRERAT #### [place] [id number] [place] Nitrite,Urine Positive High Negative [place] Comment on above: Order Comment: Reaso n for Exam Chronic kidney disease, stage III (moderate);Diabetes mellit Name Collection Type:: Clean-Voided Midstream Performed By: #### C BCNO, [id number], PTH, URIC, MG, RENAL, ADDONUAPLUS, CUU, PROCRERAT #### [facility] [address] [place] [address] Occult Blood,Urine Negative Normal Negative [facility] Comment on above: Order Comment: Reaso n for Exam Chronic kidney disease, stage III (moderate);Diabetes mellit Name Collection Type:: Clean-Voided Midstream Performed By: #### C BCNO, [id number], PTH, URIC, MG, RENAL, ADDONUAPLUS, CUU, PROCRERAT #### [facility] [address] [place] [address] pH (U) 6.0 [pH] Normal 5.0-9.0 [place] Comment on above: Order Comment: Reaso n for Exam Chronic kidney disease, stage III (moderate);Diabetes mellit Name Collection Type:: Clean-Voided Midstream Performed By: #### C BCNO, [id number], PTH, URIC, MG, RENAL, ADDONUAPLUS, CUU, PROCRERAT #### [facility] [address] [place] [address] Protein,Urine Negative Normal Negative [place] Comment on above: Order Comment: Reaso n for Exam Chronic kidney disease, stage III (moderate);Diabetes mellit Name Collection Type:: Clean-Voided Midstream Performed By: #### C BCNO, [id number], PTH, URIC, MG, RENAL, ADDONUAPLUS, CUU, PROCRERAT #### [facility] [address] [place] [address] [place] RBC,Urine None Seen Normal 0-4 [place] Comment on above: Order Comment: Reaso n for Exam Chronic kidney disease, stage III (moderate);Diabetes mellit Name Collection Type:: Clean-Voided Midstream Performed By: #### C BCNO, [id number], PTH, URIC, MG, RENAL, ADDONUAPLUS, CUU, PROCRERAT #### [address] Specificy Roland,Urine 1.013 Normal 1.001-1.030 [place] Comment on above: Order Comment: Reaso n for Exam Chronic kidney disease, stage III (moderate);Diabetes mellit Name Collection Type:: Clean-Voided Midstream Performed By: #### C BCNO, [id number], PTH, URIC, MG, RENAL, ADDONUAPLUS, CUU, PROCRERAT #### [address] Squamous Epithelial Cell,Urine 1-2 Normal 0-2 [place] Comment on above: Order Comment: Reaso n for Exam Chronic kidney disease, stage III (moderate);Diabetes mellit Name Collection Type:: Clean-Voided Midstream Performed By: #### C BCNO, [id number], PTH, URIC, MG, RENAL, ADDONUAPLUS, CUU, PROCRERAT #### [address] Urobilinogen,Urine Normal Normal Normal [facility] Comment on above: Order Comment: Reaso n for Exam Chronic kidney disease, stage III (moderate);Diabetes mellit Name Collection Type:: Clean-Voided Midstream Performed By: #### C BCNO, [id number], PTH, URIC, MG, RENAL, ADDONUAPLUS, CUU, PROCRERAT #### [address] WBC,Urine 50-100 High 0-4 [place] Comment on above: Order Comment: Reaso n for Exam Chronic kidney disease, stage III (moderate);Diabetes mellit Name Collection Type:: Clean-Voided Midstream Performed By: #### C BCNO, [id number], PTH, URIC, MG, RENAL, ADDONUAPLUS, CUU, PROCRERAT #### [address] Hemogram CBC Without Diffon 09-18-2022 Erythrocyte distribution width (RBC) [Ratio] 15.4 % High 11.9-15.3 [place] Comment on above: Order Comment: Reaso n for Exam Chronic kidney disease, stage III (moderate);Diabetes mellit Performed By: #### C BCNO, [id number], PTH, URIC, MG, RENAL, ADDONUAPLUS, CUU, PROCRERAT #### [facility] [address] Hematocrit (Bld) [Volume fraction] 41.9 % Normal 34.0-46.4 [place] Comment on above: Order Comment: Reaso n for Exam Chronic kidney disease, stage III (moderate);Diabetes mellit Performed By: #### C BCNO, [id number], PTH, URIC, MG, RENAL, ADDONUAPLUS, CUU, PROCRERAT #### [address] Hemoglobin (Bld) [Mass/Vol] 14.2 g/dL Normal 11.8-15.4 [place] Comment on above: Order Comment: Reaso n for Exam Chronic kidney disease, stage III (moderate);Diabetes mellit Performed By: #### C BCNO, [id number], PTH, URIC, MG, RENAL, ADDONUAPLUS, CUU, PROCRERAT #### [address] MCH (RBC) [Entitic mass] 30.8 pg Normal 24.7-34.3 [place] Comment on above: Order Comment: Reaso n for Exam Chronic kidney disease, stage III (moderate);Diabetes mellit Performed By: #### C BCNO, [id number], PTH, URIC, MG, RENAL, ADDONUAPLUS, CUU, PROCRERAT #### [facility] [address] [place] [address] MCV (RBC) [Entitic vol] 90.9 fL Normal 80-100 F [facility] Comment on above: Order Comment: Reaso n for Exam Chronic kidney disease, stage III (moderate);Diabetes mellit Performed By: #### C BCNO, [id number], PTH, URIC, MG, RENAL, ADDONUAPLUS, CUU, PROCRERAT #### [facility] [address] Mean Corpuscular HGB Conc 33.9 g/dL Normal 32.0-35.0 [place] Comment on above: Order Comment: Reaso n for Exam Chronic kidney disease, stage III (moderate);Diabetes mellit Performed By: #### C BCNO, [id number], PTH, URIC, MG, RENAL, ADDONUAPLUS, CUU, PROCRERAT #### [facility] [address] Platelet mean volume (Bld) [Entitic vol] 8.6 fL Normal 6.3-10.7 [place] Comment on above: Order Comment: Reaso n for Exam Chronic kidney disease, stage III (moderate);Diabetes mellit Result Comment: PERF ORMED BY: [place] [address] PATHOLOGIST MACHINE TESTER SHANTE LOMBARDI M.D. Performed By: #### C BCNO, [id number], PTH, URIC, MG, RENAL, ADDONUAPLUS, CUU, PROCRERAT #### [address] Platelets (Bld) [#/Vol] 272 10*3/uL Normal 150-450 [place] Comment on above: Order Comment: Reaso n for Exam Chronic kidney disease, stage III (moderate);Diabetes mellit Performed By: #### C BCNO, [id number], PTH, URIC, MG, RENAL, ADDONUAPLUS, CUU, PROCRERAT #### [address] RBC (Bld) [#/Vol] 4.61 10*6/uL Normal 3.60-5.00 [facility] Comment on above: Order Comment: Reaso n for Exam Chronic kidney disease, stage III (moderate);Diabetes mellit Performed By: #### C BCNO, [id number], PTH, URIC, MG, RENAL, ADDONUAPLUS, CUU, PROCRERAT #### [facility] [address] WBC (Bld) [#/Vol] 14.0 10*3/uL High 3.8-11.6 [facility] Comment on above: Order Comment: Reaso n for Exam Chronic kidney disease, stage III (moderate);Diabetes mellit Performed By: #### C BCNO, [id number], PTH, URIC, MG, RENAL, ADDONUAPLUS, CUU, PROCRERAT #### [facility] [address] Magnesiumon 09-18-2022 Magnesium [Mass/Vol] 1.9 mg/dL Normal 1.9-2.7 [facility] Comment on above: Order Comment: Reaso n for Exam Chronic kidney disease, stage III (moderate);Diabetes mellit Performed By: #### C BCNO, [id number], PTH, URIC, MG, RENAL, ADDONUAPLUS, CUU, PROCRERAT #### [address] Parathyroid Hormone Intacton 09-18-2022 Parathyroid Hormone Intact 33.9 pg/mL Normal 12-88 [place] Comment on above: Order Comment: Reaso n for Exam Chronic kidney disease, stage III (moderate);Diabetes mellit Result Comment: PERF ORMED BY: [place] [address] PATHOLOGIST MACHINE TESTER SHANTE LOMBARDI M.D. Performed By: #### C BCNO, [id number], PTH, URIC, MG, RENAL, ADDONUAPLUS, CUU, PROCRERAT #### [address] Protein Creat Ratio Ur Rando mon 09-18-2022 Creatinine, Urine (Random) 101.0 mg/dL High 11.0-20.0 [place] Comment on above: Order Comment: Reaso n for Exam Chronic kidney disease, stage III (moderate);Diabetes mellit Performed By: #### C BCNO, [id number], PTH, URIC, MG, RENAL, ADDONUAPLUS, CUU, PROCRERAT #### [address] Protein (U) [Mass/Vol] 10 mg/dL High 0-9 [facility] Comment on above: Order Comment: Reaso n for Exam Chronic kidney disease, stage III (moderate);Diabetes mellit Performed By: #### C BCNO, [id number], PTH, URIC, MG, RENAL, ADDONUAPLUS, CUU, PROCRERAT #### [address] Urine Protein/Creatinine Ratio 99 mg/g{Cre} Normal 0-200 [place] Comment on above: Order Comment: Reaso n for Exam Chronic kidney disease, stage III (moderate);Diabetes mellit Result Comment: PERF ORMED BY: [place] [address] PATHOLOGIST MACHINE TESTER SHANTE LOMBARDI M.D. Performed By: #### C BCNO, [id number], PTH, URIC, MG, RENAL, ADDONUAPLUS, CUU, PROCRERAT #### [address] Renal Function Panelon 09-18 Albumin [Mass/Vol] 3.9 g/dL Normal 3.5-5.7 [facility] Comment on above: Order Comment: Reaso n for Exam Chronic kidney disease, stage III (moderate);Diabetes mellit Performed By: #### C BCNO, [id number], PTH, URIC, MG, RENAL, ADDONUAPLUS, CUU, PROCRERAT #### [address] Anion gap [Moles/Vol] 14.0 mmol/L Normal 6.0-15.0 [facility] Comment on above: Order Comment: Reaso n for Exam Chronic kidney disease, stage III (moderate);Diabetes mellit Performed By: #### C BCNO, [id number], PTH, URIC, MG, RENAL, ADDONUAPLUS, CUU, PROCRERAT #### [address] [place] [address] [place] Calcium [Mass/Vol] 10.0 mg/dL Normal 8.6-10.3 [facility] Comment on above: Order Comment: Reaso n for Exam Chronic kidney disease, stage III (moderate);Diabetes mellit Performed By: #### C BCNO, [id number], PTH, URIC, MG, RENAL, ADDONUAPLUS, CUU, PROCRERAT #### [facility] [address] Chloride [Moles/Vol] 101 mmol/L Normal 98-107 [facility] Comment on above: Order Comment: Reaso n for Exam Chronic kidney disease, stage III (moderate);Diabetes mellit Performed By: #### C BCNO, [id number], PTH, URIC, MG, RENAL, ADDONUAPLUS, CUU, PROCRERAT #### [address] CO2 [Moles/Vol] 27.9 mmol/L Normal 21.0-31.0 [facility] Comment on above: Order Comment: Reaso n for Exam Chronic kidney disease, stage III (moderate);Diabetes mellit Performed By: #### C BCNO, [id number], PTH, URIC, MG, RENAL, ADDONUAPLUS, CUU, PROCRERAT #### [facility] [address] [place] [id number] [facility] Creatinine [Mass/Vol] 1.78 mg/dL High 0.60-1.20 [facility] Comment on above: Order Comment: Reaso n for Exam Chronic kidney disease, stage III (moderate);Diabetes mellit Performed By: #### C BCNO, [id number], PTH, URIC, MG, RENAL, ADDONUAPLUS, CUU, PROCRERAT #### [facility] [address] [place] [address] [place] GFR/1.73 sq M.predicted MDRD (S/P/Bld) [Vol rate/Area] 31.104 mL/min/{1.73_m2} [facility] Comment on above: Order Comment: Reaso n for Exam Chronic kidney disease, stage III (moderate);Diabetes mellit Performed By: #### C BCNO, [id number], PTH, URIC, MG, RENAL, ADDONUAPLUS, CUU, PROCRERAT #### [facility] [address] Glucose [Mass/Vol] 167 mg/dL High 70-100 [facility] Comment on above: Order Comment: Reaso n for Exam Chronic kidney disease, stage III (moderate);Diabetes mellit Result Comment: [facility] Glucose Reference Range is dependent on time and content of last meal. Glucose of more than 200 mg/dL in a nonstressed, ambulatory subject supports the diagnosis of Diabetes Mellitus. ADA recommended reference range Performed By: #### C BCNO, [id number], PTH, URIC, MG, RENAL, ADDONUAPLUS, CUU, PROCRERAT #### [facility] [address] Phosphate [Mass/Vol] 4.4 mg/dL Normal 3.7-7.2 [facility] Comment on above: Order Comment: Reaso n for Exam Chronic kidney disease, stage III (moderate);Diabetes mellit Performed By: #### C BCNO, [id number], PTH, URIC, MG, RENAL, ADDONUAPLUS, CUU, PROCRERAT #### [facility] [address] Potassium [Moles/Vol] 4.9 mmol/L Normal 3.5-5.1 [facility] Comment on above: Order Comment: Reaso n for Exam Chronic kidney disease, stage III (moderate);Diabetes mellit Performed By: #### C BCNO, [id number], PTH, URIC, MG, RENAL, ADDONUAPLUS, CUU, PROCRERAT #### [facility] [address] [place] [id number] [place] Sodium [Moles/Vol] 138 mmol/L Normal 136-145 [facility] Comment on above: Order Comment: Reaso n for Exam Chronic kidney disease, stage III (moderate);Diabetes mellit Performed By: #### C BCNO, [id number], PTH, URIC, MG, RENAL, ADDONUAPLUS, CUU, PROCRERAT #### [facility] [address] [place] [address] [place] Urea nitrogen [Mass/Vol] 43 mg/dL High 7-25 [place] Comment on above: Order Comment: Reaso n for Exam Chronic kidney disease, stage III (moderate);Diabetes mellit Performed By: #### C BCNO, [id number], PTH, URIC, MG, RENAL, ADDONUAPLUS, CUU, PROCRERAT #### [facility] [address] [place] [id number] [facility] Uric Acidon 09-18-2022 Urate [Mass/Vol] 9.7 mg/dL High 2.3-6.6 [facility] Comment on above: Order Comment: Reaso n for Exam Chronic kidney disease, stage III (moderate);Diabetes mellit Performed By: #### C BCNO, [id number], PTH, URIC, MG, RENAL, ADDONUAPLUS, CUU, PROCRERAT #### [facility] [address] [place] [id number] [facility] Urine Cultureon 09-18-2022 Bacteria identified Cx Nom (U) ORGANISM: Escherichia coli (O:ESCCOL) Mora Count >100,000 Aerobic JACEY Charge ([id number]) ------ SUSCEPTIBILITY ----- ORGANISM: O:ESCCOL ANTIBIOTIC INTERPRETATION JACEY Amikacin S <16 Amoxacillin/K Clavulanate S <8 Ampicillin S <8 Ampicillin/Sulbacta m S <4 Aztreonam S <4 Cefazolin S <2 Cefepime S <2 Ceftazidime S <1 Ceftazidime/Avibact am S <4 Ceftolozane/Tazobac yanez S <2 Ceftriaxone S <1 Cefuroxime S <4 Ciprofloxacin R >2 Ertapenem S <0.5 Gentamicin S <2 Levofloxacin R >4 Meropenem S <1 Meropenem/Vaborbact am S <2 Nitrofurantoin S <32 Piperacillin/Tazoba ctam S <8 Tetracycline S <4 Tigecycline S <2 Tobramycin S <2 Trimethoprim/Sulfam ethoxazole S <0.5 S = SUSCEPTIBLE I = INTERMEDIATE R = RESISTANT BLANK = DATA NOT AVAILABLE, OR DRUG NOT ADVISABLE OR TESTED R* = RESISTANCE DUE TO EXTENDED SPECTRUM BETA-LACTAMASES ESBL = EXTENDED SPECTRUM BETA-LACTAMASE TFG = THYMIDINE-DEPENDENT STRAIN MITCHELL = BETA-LACTAMASE POSITIVE IB = INDUCIBLE BETA-LACTAMASE. APPEARS IN PLACE OF 'S' WITH SPECIES KNOWN TO POSSESS INDUCIBLE BETA-LACTAMASES. POTENTIALLY THEY MAY BECOME RESISTANT TO ALL B-LACTAM DRUGS. PERFORMED BY: [place] [id number] PATHOLOGIST MACHINE TESTER SHANTE LOMBARDI M.D. Normal [place] Comment on above: Performed By: #### C BCNO, [id number], PTH, URIC, MG, RENAL, ADDONUAPLUS, CUU, PROCRERAT #### [facility] [address] [place] [address] Vitamin D 25 Hydroxy Totalon 09-18-2022 Vitamin D 25 Hydroxy Total 45.1 ng/mL Normal 30-100 [place] Comment on above: Order Comment: Reaso n for Exam Chronic kidney disease, stage III (moderate);Diabetes mellit Result Comment: DEBORAH MIN D STATUS 25(OH)VITAMIN D RANGE (ng/mL) Deficient <20 Insufficient 20 to <30 Sufficient 30 to 100 Reference: Raven MF,Isai NC, Randa WALSH, et al. Evaluation,treatment, and prevention of vitamin D deficiency; an Endocrine Society clinical practice guideline. JCEM. 2010; 96(7):1911-30. PERFORMED BY: [address] [address] PATHOLOGIST MACHINE TESTER SHANTE LOMBARDI M.D. Performed By: #### C BCNO, [id number], PTH, URIC, MG, RENAL, ADDONUAPLUS, CUU, PROCRERAT #### [place] [id number] [facility] CBC AUTO DIFFon 06-28-2022 BASO # 0.1 103/ul Normal 0.0-0.1 [facility] Comment on above: Performed By: #### C BC #### [facility] [address] [address] [address] Briana Dillard Basophils/100 WBC (Bld) 0.8 % Normal 0.2-2.0 [facility] Comment on above: Performed By: #### C BC #### [facility] [address] [address] [address] Briana Dillard EO # 0.3 103/ul Normal 0.0-0.7 [facility] Comment on above: Performed By: #### C BC #### [facility] [address] [address] [address] Briana Dillard Eosinophils/100 WBC (Bld) 2.5 % Normal 0.9-7.0 [facility] Comment on above: Performed By: #### C BC #### [facility] [address] [address] [address] Briana Dillard Erythrocyte distribution width (RBC) [Ratio] 14.8 % Normal 11.0-15.0 [facility] Comment on above: Performed By: #### C BC #### [facility] [address] [address] [address] Briana Dillard Hematocrit (Bld) [Volume fraction] 43.8 % Normal 36.0-48.0 [facility] Comment on above: Performed By: #### C BC #### [facility] [address] [address] [address] Briana Dillard Hemoglobin (Bld) [Mass/Vol] 14.5 g/dL Normal 12.0-16.0 [facility] Comment on above: Performed By: #### C BC #### [facility] [address] [address] [address] Briana Dillard IG # 0.13 10e3/ul Critically high 0.00-0.03 [facility] Comment on above: Performed By: #### C BC #### [facility] [address] [address] [address] Briana Dillard IG % 1.0 % Critically high 0.0-0.5 [facility] Comment on above: Performed By: #### C BC #### [facility] [address] [place] [address] [address] Briana Dillard LYMPH # 2.5 103/ul Normal 1.2-3.8 [facility] Comment on above: Performed By: #### C BC #### [facility] [address] [place] [address] Dr. Briana Dillard Lymphocytes/100 WBC (Bld) 19.1 % Critically low 20.5-60.0 [facility] Comment on above: Performed By: #### C BC #### [facility] [address] [place] [address] Dr. Briana Dillard MANUAL DIFF REQ NO Normal [facility] Comment on above: Performed By: #### C BC #### [facility] [address] [place] [address] Dr. Briana Dillard MCH (RBC) [Entitic mass] 30.8 pg Normal 26.7-34.0 [facility] Comment on above: Performed By: #### C BC #### [facility] [address] [place] [address] Dr. Briana Dillard MCHC (RBC) [Mass/Vol] 33.1 g/dL Normal 29.9-35.2 [facility] Comment on above: Performed By: #### C BC #### [facility] [address] [place] [address] Dr. Briana Dillard MCV (RBC) [Entitic vol] 93.0 fL Normal 81.0-99.0 [facility] Comment on above: Performed By: #### C BC #### [facility] [address] [place] [address] Dr. Briana Dillard MONO # 0.7 103/ul Normal 0.3-0.8 [facility] Comment on above: Performed By: #### C BC #### [facility] [address] [place] [address] Dr. Briana Dillard Monocytes/100 WBC (Bld) 5.7 % Normal 1.7-12.0 [facility] Comment on above: Performed By: #### C BC #### [facility] [address] [address] [address] Briana Dillard NEUT # 9.2 103/ul Critically high 1.4-6.5 [facility] Comment on above: Performed By: #### C BC #### [facility] [address] [address] [address] Briana Dillard Neutrophils/100 WBC (Bld) 70.9 % Normal 43.0-75.0 [facility] Comment on above: Performed By: #### C BC #### [facility] [address] [address] [address] Briana Dillard Platelet mean volume (Bld) [Entitic vol] 10.4 fL Normal 9.5-13.5 [facility] Comment on above: Performed By: #### C BC #### [facility] [address] [place] [address] Dr. Briana Dillard PLT 262 103/ul Normal 150-450 [facility] Comment on above: Performed By: #### C BC #### [facility] [address] [place] [address] Dr. Briana Dillard RBC 4.71 106/ul Normal 4.20-5.40 [facility] Comment on above: Performed By: #### C BC #### [facility] [address] [place] [address] Dr. Briana Dillard WBC 13.0 103/ul Critically high 4.0-11.0 [facility] Comment on above: Performed By: #### C BC #### [facility] [address] [place] [address] Dr. Briana Dillard DIRECT LDLon 06-28-2022 Cholesterol in LDL [Mass/Vol] 90 mg/dL Normal [facility] Comment on above: Performed By: #### C MP, CMADM, BNP #### [facility] [address] [place] [address] Dr. Briana Dillard DLDL NORMAL SEE BELOW Normal [facility] Comment on above: Result Comment: <100 mg/dl OPTIMAL 100 - 129 mg/dl NEAR OR ABOVE OPTIMAL 130 - 159 mg/dl BORDERLINE HIGH 160 - 189 mg/dl HIGH >190 mg/dl VERY HIGH Performed By: #### C MP, CMADM, BNP #### [facility] [address] [address] [address] Briana Dillard GLYCOHEMOGLOBIN A1Con 2022 ADA RECOMMENDATION SEE BELOW Normal [facility] Comment on above: Result Comment: ADA RECOMMENDED LIMIT 4.0 - 6.0 ADA THERAPEUTIC TARGET < 7.0 ACTION SUGGESTED > 7.0 Performed By: #### C MP, CMADM, BNP #### [facility] [address] [address] [address] Briana Dillard Glucose [Mass/Vol] 229 mg/dL Normal [facility] Comment on above: Performed By: #### C KYLE COLMENARESDM, BNP #### [facility] [address] [address] [address] Briana Dillard HbA1c (Bld) [Mass fraction] 9.6 % Critically high 4.5-6.2 [facility] Comment on above: Performed By: #### C KYLE COLMENARESDM, BNP #### [facility] [address] [place] [address] Dr. Briana Dillard LIPID PROFILEon 06-28-2022 CHOL-HDL RATIO NORM SEE BELOW Normal [facility] Comment on above: Result Comment: 3.3 - 4.4 LOW RISK 4.4 - 7.1 AVERAGE RISK 7.1 - 11.0 MODERATE RISK >11.0 HIGH RISK Performed By: #### C DARRIAN CMADM, BNP #### [facility] [address] [address] [address] Briana Dillard Cholesterol [Mass/Vol] 219 mg/dL Critically high <=200 [facility] Comment on above: Performed By: #### C MP CMADM, BNP #### [facility] [address] [place] [address] Dr. Briana Dillard Cholesterol in HDL [Mass/Vol] 32 mg/dL Critically low 40-60 [facility] Comment on above: Performed By: #### C DARRIAN, CMADM, BNP #### [facility] [address] [address] [address] Briana Dillard Cholesterol.total/Choles terol in HDL [Mass ratio] 6.8 {ratio} Normal [facility] Comment on above: Performed By: #### C MP, CMADM, BNP #### [facility] [address] [place] [address] Dr. Briana Dillard HDL NORMAL > or = 60 mg/dl - LOW CARDIOVASCULAR RISK <40 mg/dl - HIGH CARDIOVASCULAR RISK Normal [facility] Comment on above: Performed By: #### C MP, CMADM, BNP #### [facility] [address] [place] [address] Dr. Briana Dillard LDL CALC NORMAL SEE BELOW Normal [facility] Comment on above: Result Comment: <100 mg/dl OPTIMAL 100 - 129 mg/dl NEAR OR ABOVE OPTIMAL 130 - 159 mg/dl BORDERLINE HIGH 160 - 189 mg/dl HIGH >190 mg/dl VERY HIGH Performed By: #### C MP, CMADM, BNP #### [facility] [address] [place] [address] Dr. Briana Dillard Triglyceride [Mass/Vol] 585 mg/dL Critically high <=150 [facility] Comment on above: Performed By: #### C MP, CMADM, BNP #### [facility] [address] [place] [address] Dr. Briana Dillard VLDL CALC 117.0 mg/dL Normal [facility] Comment on above: Performed By: #### C MP, CMADM, BNP #### [facility] [address] [place] [address] Dr. Briana Dillard PROF 14(COMP METB)on 023 Albumin [Mass/Vol] 3.6 g/dL Normal 3.4-5.0 [facility] Comment on above: Performed By: #### L IPID, CMP, DLDL #### [facility] [address] [place] [address] Dr. Briana Dillard Albumin/Globulin [Mass ratio] 0.9 {ratio} Normal [facility] Comment on above: Performed By: #### L IPID, CMP, DLDL #### [facility] [address] [place] [address] Dr. Briaan Dillard ALP [Catalytic activity/Vol] 117 U/L Critically high 46-116 [facility] Comment on above: Performed By: #### L IPID, CMP, DLDL #### [facility] [address] [address] [address] Briana Dillard ALT [Catalytic activity/Vol] 42 U/L Normal 14-59 [facility] Comment on above: Performed By: #### L IPID, CMP, DLDL #### [facility] [address] [address] [address] Briana Dillard Anion gap [Moles/Vol] 15.4 mmol/L Normal [facility] Comment on above: Performed By: #### L IPID, CMP, DLDL #### [facility] [address] [address] [address] Briana Dillard AST [Catalytic activity/Vol] 29 U/L Normal 15-37 [facility] Comment on above: Performed By: #### L IPID, CMP, DLDL #### [facility] [address] [address] [address] Briana Dillard Bilirubin [Mass/Vol] 0.4 mg/dL Normal 0.2-1.0 [facility] Comment on above: Performed By: #### L IPID, CMP, DLDL #### [facility] [address] [address] [address] Briana Dillard Calcium [Mass/Vol] 10.2 mg/dL Critically high 8.5-10.1 [facility] Comment on above: Performed By: #### L IPID, CMP, DLDL #### [facility] [address] [address] [address] Briana Dillard Chloride [Moles/Vol] 100 mmol/L Normal 98-107 [facility] Comment on above: Performed By: #### L IPID, CMP, DLDL #### [facility] [address] [address] [address] Briana Dillard CO2 [Moles/Vol] 27.3 mmol/L Normal 21.0-32.0 [facility] Comment on above: Performed By: #### L IPID, CMP, DLDL #### [facility] [address] [address] [address] Briana Dillard Creatinine [Mass/Vol] 1.40 mg/dL Critically high 0.55-1.02 [facility] Comment on above: Performed By: #### L IPID, CMP, DLDL #### [facility] [address] [address] [address] Briana Dillard EGFR-AF J[place] 46 mL/min/1.73m2 Critically low >=60 [facility] Comment on above: Performed By: #### L IPID, CMP, DLDL #### [facility] [address] [place] [address] Dr. Briana Dillard EGFR-NON AF [place] 38 mL/min/1.73m2 Critically low >=60 [facility] Comment on above: Performed By: #### L IPID, CMP, DLDL #### [facility] [address] [place] [address] Dr. Briana Dillard Globulin (S) [Mass/Vol] 3.9 g/dL Normal [facility] Comment on above: Performed By: #### L IPID, CMP, DLDL #### [facility] [address] [place] [address] Dr. Briana Dillard Glucose [Mass/Vol] 295 mg/dL Critically high 74-106 [facility] Comment on above: Performed By: #### L IPID, CMP, DLDL #### [facility] [address] [place] [address] Dr. Briana Dillard Potassium [Moles/Vol] 4.7 mmol/L Normal 3.5-5.1 [facility] Comment on above: Performed By: #### L IPID, CMP, DLDL #### [facility] [address] [place] [address] Dr. Briana Dillard Protein [Mass/Vol] 7.5 g/dL Normal 6.4-8.2 [facility] Comment on above: Performed By: #### L IPID, CMP, DLDL #### [facility] [address] [address] [address] Briana Dillard Sodium [Moles/Vol] 138 mmol/L Normal 136-145 [facility] Comment on above: Performed By: #### L IPID, CMP, DLDL #### [facility] [address] [place] [address] Dr. Briana Dillard Urea nitrogen [Mass/Vol] 34.0 mg/dL Critically high 7.0-18 .0 [facility] Comment on above: Performed By: #### L IPID, CMP, DLDL #### [facility] [address] [address] [address] Briana Dillard Urea nitrogen/Creatinine [Mass ratio] 24.3 mg/mg Normal [facility] Comment on above: Performed By: #### L IPID, CMP, DLDL #### [facility] [address] [place] [address] Dr. Briana Dillard UA RANDOM W/MICROSCOPICon BACTERIA TRACE Abnormal NONE SEEN [facility] Comment on above: Performed By: #### C MP, CMADM, BNP #### [facility] [address] [place] [address] Dr. Briana Dillard Bilirubin Ql (U) Negative Normal NEGATIVE [facility] Comment on above: Performed By: #### C MP, CMADM, BNP #### [facility] [address] [place] [address] Dr. Briana Dillard CAST NONE SEEN Normal NONE SEEN [facility] Comment on above: Performed By: #### C MP, CMADM, BNP #### [facility] [address] [place] [address] Dr. Briana Dillard Clarity (U) CLEAR Normal CLEAR [facility] Comment on above: Performed By: #### C MP, CMADM, BNP #### [facility] [address] [place] [address] Dr. Briana Dillard Color (U) LT. YELLOW Normal YELLOW [facility] Comment on above: Performed By: #### C MP, CMADM, BNP #### [facility] [address] [place] [address] Dr. Briana Dillard Crystals LM Nom (Urine sed) NONE SEEN Normal NONE SEEN [facility] Comment on above: Performed By: #### C MP, CMADM, BNP #### [facility] [address] [address] [address] Briana Dillard Epithelial cells LM Ql (Urine sed) MANY Abnormal NONE SEEN /RARE [facility] Comment on above: Performed By: #### C MP, CMADM, BNP #### [facility] [address] [address] [address] Briana Dillard Glucose Ql (U) Negative Normal NEGATIVE [facility] Comment on above: Performed By: #### C MP, CMADM, BNP #### [facility] [address] [place] [address] Dr. Briana Dillard Hemoglobin Ql (U) Negative Normal NEGATIVE [facility] Comment on above: Performed By: #### C MP, CMADM, BNP #### [facility] [address] [place] [address] Dr. Briana Dillard Ketones Ql (U) Negative Normal NEGATIVE [facility] Comment on above: Performed By: #### C MP, CMADM, BNP #### [facility] [address] [address] [address] Briana Dillard LEUKOCYTES TRACE Abnormal NEGATIVE [facility] Comment on above: Performed By: #### C MP, CMADM, BNP #### [facility] [address] [address] [address] Briana Dillard MUCOUS NONE SEEN Normal NONE SEEN [facility] Comment on above: Performed By: #### C MP, CMADM, BNP #### [facility] [address] [address] [address] Briana Dillard Nitrite Ql (U) Negative Normal NEGATIVE [facility] Comment on above: Performed By: #### C MP, CMADM, BNP #### [facility] [address] [place] [address] Dr. Briana Dillard pH (U) 6.0 [pH] Normal 5-9 [facility] Comment on above: Performed By: #### C MP, CMADM, BNP #### [facility] [address] [address] [address] Briana Dillard RBC 0-2 Normal 0-2 [facility] Comment on above: Performed By: #### C MP, CMADM, BNP #### [facility] [address] [address] [address] Briana Dillard SPEC GRAVITY 1.010 Normal 1.005-<=1.02 5 [facility] Comment on above: Performed By: #### C MP, CMADM, BNP #### [facility] [address] [address] [address] Briana Dillard UA PROTEIN TRACE Normal NEGATIVE/ TRACE [facility] Comment on above: Performed By: #### C MP, CMADM, BNP #### [facility] [address] [place] [address] Dr. Briana Dillard Urobilinogen Qn (U) 0.2 {Samuel'U}/dL Normal 0.2 - 1. 0 [facility] Comment on above: Performed By: #### C MP, CMADM, BNP #### [facility] [address] [place] [address] Dr. Briana Dillard WBC 2-5 Abnormal NONE SEEN [facility] Comment on above: Performed By: #### C MP, CMADM, BNP #### [facility] [address] [place] [address] Dr. Briana Dillard URINE T PROTEIN CREAT RATIOo n 06-28-2022 Protein (U) [Mass/Vol] 30.3 mg/dL Critically high <=12.0 [facility] Comment on above: Performed By: #### C MP, CMADM, BNP #### [facility] [address] [place] [address] Dr. Briana Dillard UR PROT CREAT RAT 0.[address] [facility] Comment on above: Performed By: #### C MP, CMADM, BNP #### [facility] [address] [place] [address] Dr. Briana Dillard URINE CREAT 38.11 mg/dL Normal 20.00-300.00 [facility] Comment on above: Performed By: #### C MP, CMADM, BNP #### [facility] [address] [address] [address] Briana Dillard POINT OF CARE GLUCOSEon 05-05 Glucose [Mass/Vol] 296 mg/dL Critically high 74-106 [facility] Comment on above: Performed By: #### C MP, CMADM, BNP #### [facility] [address] [address] [address] Briana Dillard POINT OF CARE GLUCOSEon 05-04 Glucose [Mass/Vol] 312 mg/dL Critically high 74-106 [facility] Comment on above: Performed By: #### C BC #### [facility] [address] [place] [address] Dr. Briana Dillard GLYCOHEMOGLOBIN A1Con 2021 ADA RECOMMENDATION SEE BELOW Normal [facility] Comment on above: Result Comment: ADA RECOMMENDED LIMIT 4.0 - 6.0 ADA THERAPEUTIC TARGET < 7.0 ACTION SUGGESTED > 7.0 Performed By: #### A 1C #### [facility] [address] [place] [address] Dr. Briana Dillard Glucose [Mass/Vol] 223 mg/dL Normal [facility] Comment on above: Performed By: #### A 1C #### [facility] [address] [place] [address] Dr. Briana Dillard HbA1c (Bld) [Mass fraction] 9.4 % Critically high 4.5-6.2 [facility] Comment on above: Performed By: #### A 1C #### [facility] [address] [place] [address] Dr. Briana Dillard CBC AUTO DIFFon 11-29-2021 BASO # 0.1 103/ul Normal 0.0-0.1 [facility] Comment on above: Performed By: #### C BC #### [facility] [address] [place] [address] Dr. Briana Dillard Basophils/100 WBC (Bld) 0.9 % Normal 0.2-2.0 [facility] Comment on above: Performed By: #### C BC #### [facility] [address] [address] [address] Briana Dillard EO # 0.3 103/ul Normal 0.0-0.7 [facility] Comment on above: Performed By: #### C BC #### [facility] [address] [address] [address] Briana Dillard Eosinophils/100 WBC (Bld) 2.7 % Normal 0.9-7.0 [facility] Comment on above: Performed By: #### C BC #### [facility] [address] [place] [address] Dr. Briana Dillard Erythrocyte distribution width (RBC) [Ratio] 15.8 % Critically high 11.0-15.0 [facility] Comment on above: Performed By: #### C BC #### [facility] [address] [place] [address] Dr. Briana Dillard Hematocrit (Bld) [Volume fraction] 39.4 % Normal 36.0-48.0 [facility] Comment on above: Performed By: #### C BC #### [facility] [address] [place] [address] Dr. Briana Dillard Hemoglobin (Bld) [Mass/Vol] 13.0 g/dL Normal 12.0-16.0 [facility] Comment on above: Performed By: #### C BC #### [facility] [address] [place] [address] Dr. Briana Dillard IG # 0.12 10e3/ul Critically high 0.00-0.03 [facility] Comment on above: Performed By: #### C BC #### [facility] [address] [place] [address] Dr. Briana Dillard IG % 1.1 % Critically high 0.0-0.5 [facility] Comment on above: Performed By: #### C BC #### [facility] [address] [place] [address] Dr. Briana Dillard LYMPH # 2.7 103/ul Normal 1.2-3.8 [facility] Comment on above: Performed By: #### C BC #### [facility] [address] [address] [address] Briana Dillard Lymphocytes/100 WBC (Bld) 25.6 % Normal 20.5-60.0 [facility] Comment on above: Performed By: #### C BC #### [facility] [address] [place] [address] Dr. Briana Dillard MANUAL DIFF REQ NO Normal [facility] Comment on above: Performed By: #### C BC #### [facility] [address] [place] [address] Dr. Briana Dillard MCH (RBC) [Entitic mass] 30.9 pg Normal 26.7-34.0 [facility] Comment on above: Performed By: #### C BC #### [facility] [address] [place] [address] Dr. Briana Dillard MCHC (RBC) [Mass/Vol] 33.0 g/dL Normal 29.9-35.2 [facility] Comment on above: Performed By: #### C BC #### [facility] [address] [place] [address] Dr. Briana Dillard MCV (RBC) [Entitic vol] 93.6 fL Normal 81.0-99.0 [facility] Comment on above: Performed By: #### C BC #### [facility] [address] [place] [address] Dr. Briana Dillard MONO # 0.8 103/ul Normal 0.3-0.8 [facility] Comment on above: Performed By: #### C BC #### [facility] [address] [place] [address] Dr. Briana Dillard Monocytes/100 WBC (Bld) 7.9 % Normal 1.7-12.0 [facility] Comment on above: Performed By: #### C BC #### [facility] [address] [place] [address] Dr. Briana Dillard NEUT # 6.6 103/ul Critically high 1.4-6.5 [facility] Comment on above: Performed By: #### C BC #### [facility] [address] [address] [address] Briana Dillard Neutrophils/100 WBC (Bld) 61.8 % Normal 43.0-75.0 [facility] Comment on above: Performed By: #### C BC #### [facility] [address] [place] [address] Dr. Briana Dillard Platelet mean volume (Bld) [Entitic vol] 10.3 fL Normal 9.5-13.5 [facility] Comment on above: Performed By: #### C BC #### [facility] [address] [place] [address] Dr. Briana Dillard PLT 234 103/ul Normal 150-450 [facility] Comment on above: Performed By: #### C BC #### [facility] [address] [place] [address] Dr. Briana Dillard RBC 4.21 106/ul Normal 4.20-5.40 [facility] Comment on above: Performed By: #### C BC #### [facility] [address] [place] [address] Dr. Briana Dillard WBC 10.6 103/ul Normal 4.0-11.0 [facility] Comment on above: Performed By: #### C BC #### [facility] [address] [place] [address] Dr. Briana Dillard GLYCOHEMOGLOBIN A1Con 2021 ADA RECOMMENDATION SEE BELOW Normal [facility] Comment on above: Result Comment: ADA RECOMMENDED LIMIT 4.0 - 6.0 ADA THERAPEUTIC TARGET < 7.0 ACTION SUGGESTED > 7.0 Performed By: #### C BC #### [facility] [address] [place] [address] Dr. Briana Dillard Glucose [Mass/Vol] 220 mg/dL Normal [facility] Comment on above: Performed By: #### C BC #### [facility] [address] [place] [address] Dr. Briana Dillard HbA1c (Bld) [Mass fraction] 9.3 % Critically high 4.5-6.2 [facility] Comment on above: Performed By: #### C BC #### [facility] [address] [address] [address] Briana Dillard LIPID PROFILEon 11-29-2021 CHOL-HDL RATIO NORM SEE BELOW Normal [facility] Comment on above: Result Comment: 3.3 - 4.4 LOW RISK 4.4 - 7.1 AVERAGE RISK 7.1 - 11.0 MODERATE RISK >11.0 HIGH RISK Performed By: #### C MP, CMADM, BNP #### [facility] [address] [address] [address] Briana Dillard Cholesterol [Mass/Vol] 135 mg/dL Normal <=200 [facility] Comment on above: Performed By: #### C MP, CMADM, BNP #### [facility] [address] [address] [address] Briana Dillard Cholesterol in HDL [Mass/Vol] 44 mg/dL Normal 40-60 [facility] Comment on above: Performed By: #### C MP, CMADM, BNP #### [facility] [address] [address] [address] Briana Dillard Cholesterol in LDL [Mass/Vol] 60.2 mg/dL Normal [facility] Comment on above: Performed By: #### C MP, CMADM, BNP #### [facility] [address] [address] [address] Briana Dillard Cholesterol.total/Choles terol in HDL [Mass ratio] 3.1 {ratio} Normal [facility] Comment on above: Performed By: #### C MP, CMADM, BNP #### [facility] [address] [address] [address] Briana Dillard HDL NORMAL > or = 60 mg/dl - LOW CARDIOVASCULAR RISK <40 mg/dl - HIGH CARDIOVASCULAR RISK Normal [facility] Comment on above: Performed By: #### C MP, CMADM, BNP #### [facility] [address] [place] [address] Dr. Briana Dillard LDL CALC NORMAL SEE BELOW Normal [facility] Comment on above: Result Comment: <100 mg/dl OPTIMAL 100 - 129 mg/dl NEAR OR ABOVE OPTIMAL 130 - 159 mg/dl BORDERLINE HIGH 160 - 189 mg/dl HIGH >190 mg/dl VERY HIGH Performed By: #### C MP, CMADM, BNP #### [facility] [address] [address] [address] Briana Dillard Triglyceride [Mass/Vol] 154 mg/dL Critically high <=150 [facility] Comment on above: Performed By: #### C MP, CMADM, BNP #### [facility] [address] [address] [address] Briana Dillard VLDL CALC 30.8 mg/dL Normal [facility] Comment on above: Performed By: #### C MP, CMADM, BNP #### [facility] [address] [place] [address] Dr. Briana Dillard POINT OF CARE GLUCOSEon 11-02 Glucose [Mass/Vol] 271 mg/dL Critically high 74-106 [facility] Comment on above: Performed By: #### C BC #### [facility] [address] [place] [address] Dr. Briana Dillard Glucose [Mass/Vol] 180 mg/dL Critically high 74-106 [facility] Comment on above: Performed By: #### C MP, CMADM, BNP #### [facility] [address] [place] [address] Dr. Briana Dillard BNPon 11-28-2021 Natriuretic peptide B (Bld) [Mass/Vol] 86.0 pg/mL Normal <=900.0 [facility] Comment on above: Performed By: #### C MP, CMADM, BNP #### [facility] [address] [place] [address] Dr. Briana Dillard CARDIAC TANIA ADMITon 022 CK [Catalytic activity/Vol] 52 U/L Normal 26-192 [facility] Comment on above: Performed By: #### C MP, CMADM, BNP #### [facility] [address] [place] [address] Dr. Briana Dillard CK.MB [Mass/Vol] 0.65 ng/mL Normal <=3.60 [facility] Comment on above: Performed By: #### C MP, CMADM, BNP #### [facility] [address] [place] [address] Dr. Briana Dillard HSTROP 4.8 pg/mL Normal 4.0-51.3 [facility] Comment on above: Result Comment: CUT- OFF POINTS HAVE BEEN ESTABLISHED BASED ON THE FOURTH UNIVERSAL DEFINITIONS OF MYOCARDIAL INFARCTION. THE UPPER REFERENCE LIMIT (URL) OF TROPONIN, DEFINED THE 99TH PERCENTILE OF cTnI DISTRIBUTION IN A REFERENCE POPULATION, HAS BEEN CONFIRMED THE DECISION THRESHOLD FOR PA DIAGNOSIS. Performed By: #### C MP, CMADM, BNP #### [facility] [address] [place] [address] Dr. Braina Dillard YONIS 47 ng/mL Normal 9-82 [facility] Comment on above: Performed By: #### C MP, CMADM, BNP #### [facility] [address] [place] [address] Dr. Briana Dillard CBC AUTO DIFFon 11-28-2021 BASO # 0.1 103/ul Normal 0.0-0.1 [facility] Comment on above: Performed By: #### C BC #### [facility] [address] [place] [address] Dr. Briana Dillard Basophils/100 WBC (Bld) 0.8 % Normal 0.2-2.0 [facility] Comment on above: Performed By: #### C BC #### [facility] [address] [place] [address] Dr. Briana Dillard EO # 0.2 103/ul Normal 0.0-0.7 [facility] Comment on above: Performed By: #### C BC #### [facility] [address] [place] [address] Dr. Briana Dillard Eosinophils/100 WBC (Bld) 1.4 % Normal 0.9-7.0 [facility] Comment on above: Performed By: #### C BC #### [facility] [address] [place] [address] Dr. Briana Dillard Erythrocyte distribution width (RBC) [Ratio] 15.8 % Critically high 11.0-15.0 [facility] Comment on above: Performed By: #### C BC #### [facility] [address] [address] [address] Briana Dillard Hematocrit (Bld) [Volume fraction] 42.2 % Normal 36.0-48.0 [facility] Comment on above: Performed By: #### C BC #### [facility] [address] [address] [address] Briana Dillard Hemoglobin (Bld) [Mass/Vol] 14.3 g/dL Normal 12.0-16.0 [facility] Comment on above: Performed By: #### C BC #### [facility] [address] [address] [address] Briana Dillard IG # 0.14 10e3/ul Critically high 0.00-0.03 [facility] Comment on above: Performed By: #### C BC #### [facility] [address] [place] [address] Dr. Briana Dillard IG % 1.1 % Critically high 0.0-0.5 [facility] Comment on above: Performed By: #### C BC #### [facility] [address] [place] [address] Dr. Briana Dillard LYMPH # 1.9 103/ul Normal 1.2-3.8 [facility] Comment on above: Performed By: #### C BC #### [facility] [address] [place] [address] Dr. Briana Dillard Lymphocytes/100 WBC (Bld) 14.0 % Critically low 20.5-60.0 [facility] Comment on above: Performed By: #### C BC #### [facility] [address] [place] [address] Dr. Briana Dillard MANUAL DIFF REQ NO Normal [facility] Comment on above: Performed By: #### C BC #### [facility] [address] [place] [address] Dr. Briana Dillard MCH (RBC) [Entitic mass] 31.2 pg Normal 26.7-34.0 [facility] Comment on above: Performed By: #### C BC #### [facility] [address] [place] [address] Dr. Briana Dillard MCHC (RBC) [Mass/Vol] 33.9 g/dL Normal 29.9-35.2 [facility] Comment on above: Performed By: #### C BC #### [facility] [address] [place] [address] Dr. Briana Dillard MCV (RBC) [Entitic vol] 92.1 fL Normal 81.0-99.0 [facility] Comment on above: Performed By: #### C BC #### [facility] [address] [place] [address] Dr. Briana Dillard MONO # 1.1 103/ul Critically high 0.3-0.8 [facility] Comment on above: Performed By: #### C BC #### [facility] [address] [place] [address] Dr. Briana Dillard Monocytes/100 WBC (Bld) 8.0 % Normal 1.7-12.0 [facility] Comment on above: Performed By: #### C BC #### [facility] [address] [place] [address] Dr. Briana Dillard NEUT # 9.9 103/ul Critically high 1.4-6.5 [facility] Comment on above: Performed By: #### C BC #### [facility] [address] [place] [address] Dr. Briana Dillard Neutrophils/100 WBC (Bld) 74.7 % Normal 43.0-75.0 [facility] Comment on above: Performed By: #### C BC #### [facility] [address] [place] [address] Dr. Briana Dillard Platelet mean volume (Bld) [Entitic vol] 10.1 fL Normal 9.5-13.5 [facility] Comment on above: Performed By: #### C BC #### [facility] [address] [place] [address] Dr. Briana Dillard PLT 241 103/ul Normal 150-450 [facility] Comment on above: Performed By: #### C BC #### [facility] [address] [place] [address] Dr. Briana Dillard RBC 4.58 106/ul Normal 4.20-5.40 [facility] Comment on above: Performed By: #### C BC #### [facility] [address] [place], [place] [address] Dr. Briana Dillard WBC 13.2 103/ul Critically high 4.0-11.0 [facility] Comment on above: Performed By: #### C BC #### [facility] [address] [place], [place] [address] Dr. Briana Dillard CTA CHEST WO W CONon 022 CTA CHEST WO W CON EXAMINATION: CTA CHEST WO W CON HISTORY: SHORTNESS OF BREATH , chest pressure, elevated d-dimer COMPARISON: CTA chest 12/05/2019 TECHNIQUE: Multi-planar CT images were created with IV contrast. Axial, Coronal, and Sagittal images. Dose reduction techniques were achieved by using automated exposure control and/or adjustment of mA and/or kV according to patient size and/or use of iterative reconstruction technique. 3-D reconstruction was performed on a separate workstation. FINDINGS: VASCULATURE: No pulmonary embolism or abnormal opacity. LUNGS: Stable appearance of a few tiny nodular densities bilaterally; some are calcified; some are noncalcified. PLEURA: No mass, effusion, or pneumothorax. MIRIAM: No mass or adenopathy. MEDIASTINUM: No mass or adenopathy. CARDIAC: No enlargement, pericardial effusion, or pericardial thickening. AORTA: No aneurysm or dissection. CHEST WALL: No mass or axillary adenopathy. BONES: No bone lesion or fracture. LIMITED ABDOMEN: No suspicious findings. Limited images of the upper abdomen. OTHER: Negative. IMPRESSION: 1. No pulmonary embolism. 2. No pulmonary infiltrates or suspicious findings to account for patient's symptoms. Electronically authenticated by: NADJA KEMP Date: 2021-11-28 13:10 Normal [facility]-02 SARS-CoV-2 (COVID-19) RNA ANTOINE+probe Ql (Unsp spec) Not detected Normal NOT DETECTED [facility] Comment on above: Result Comment: When diagnostic testing is negative, the possibility of a false negative should be considered in the context of a patient's recent exposures and the presence of clinical signs and symptoms consistent with SARS-CoV-2. This test is not yet approved or cleared by the [place] FDA. When there are no FDA-approved or cleared tests available, and other criteria are met, FDA can make tests available under an emergency access mechanism called an Emergency Use Authorization (EUA). The EUA for this test is supported by the Assisted Living Administrator of Health and Human Service's declaration that circumstances exist to justify the emergency use of in vitro diagnostics for the detection and/or diagnosis of the virus that causes COVID-19. This EUA will remain in effect for the duration of the COVID-19 declaration justifying emergency of IVDs, unless it is terminated or revoked by the FDA (after which the test may no longer be used). Performed By: #### C MP, CMADM, BNP #### [facility] [address] [place] [address] Dr. Briana Dillard D-DIMERon 11-28-2021 D-DIMER 0.77 mg/L FEU Critically high <=0.59 [facility] Comment on above: Performed By: #### P T, PTT, DDIM #### [facility] [address] [place] [address] Dr. Briana Dillard D-DIMER COMMENTS SEE BELOW Normal [facility] Comment on above: Result Comment: Incr eases in D-Dimer concentration observed with thromboembolic events can be variable due to localization, size, and age of the thrombus. Therefore, a thromboembolic event cannot be diagnosed with certainty on the basis of the reference range. D-Dimers may also be elevated for a variety of disorders including: advanced age, , coronary disease, cancer, liver disease, infection, inflammation, hematoma, DIC, trauma, post-surgery, diabetes, thrombolytic or anticoagulant therapy, stress, and generalized hospitalization. Performed By: #### P T, PTT, DDIM #### [facility] [address] [place] [address] Dr. Briana Dillard POINT OF CARE GLUCOSEon 11-02 Glucose [Mass/Vol] 213 mg/dL Critically high 74-106 [facility] Comment on above: Performed By: #### P OCGLUC #### [facility] [address] [place] [address] Dr. Briana Dillard Glucose [Mass/Vol] 255 mg/dL Critically high 74-106 [facility] Comment on above: Performed By: #### C MP, CMADM, BNP #### [facility] [address] [address] [address] Briana Dillard PROF 14(COMP METB)on 022 Albumin [Mass/Vol] 3.4 g/dL Normal 3.4-5.0 [facility] Comment on above: Performed By: #### C MP, CMADM, BNP #### [facility] [address] [address] [address] Briana Dillard Albumin/Globulin [Mass ratio] 0.9 {ratio} Normal [facility] Comment on above: Performed By: #### C MP, CMADM, BNP #### [facility] [address] [place] [address] Dr. Briana Dillard ALP [Catalytic activity/Vol] 126 U/L Critically high 46-116 [facility] Comment on above: Performed By: #### C MP, CMADM, BNP #### [facility] [address] [place] [address] Dr. Briana Dillard ALT [Catalytic activity/Vol] 30 U/L Normal 14-59 [facility] Comment on above: Performed By: #### C MP, CMADM, BNP #### [facility] [address] [place] [address] Dr. Briana Dillard Anion gap [Moles/Vol] 13.6 mmol/L Normal [facility] Comment on above: Performed By: #### C MP, CMADM, BNP #### [facility] [address] [address] [address] Briana Dillard AST [Catalytic activity/Vol] 18 U/L Normal 15-37 [facility] Comment on above: Performed By: #### C MP, CMADM, BNP #### [facility] [address] [address] [address] Briana Dillard Bilirubin [Mass/Vol] 0.4 mg/dL Normal 0.2-1.0 [facility] Comment on above: Performed By: #### C MP, CMADM, BNP #### [facility] [address] [address] [address] Briana Dillard Calcium [Mass/Vol] 8.9 mg/dL Normal 8.5-10.1 [facility] Comment on above: Performed By: #### C MP, CMADM, BNP #### [facility] [address] [address] [address] Briana Dillard Chloride [Moles/Vol] 98 mmol/L Normal 98-107 [facility] Comment on above: Performed By: #### C MP, CMADM, BNP #### [facility] [address] [address] [address] Briana Dillard CO2 [Moles/Vol] 25.0 mmol/L Normal 21.0-32.0 [facility] Comment on above: Performed By: #### C MP, CMADM, BNP #### [facility] [address] [place] [address] Dr. Briana Dillard Creatinine [Mass/Vol] 1.58 mg/dL Critically high 0.55-1.02 [facility] Comment on above: Performed By: #### C MP, CMADM, BNP #### [facility] [address] [place] [address] Dr. Briana Dillard EGFR-AF JAMA[place] 40 mL/min/1.73m2 Critically low >=60 [facility] Comment on above: Performed By: #### C MP, CMADM, BNP #### [facility] [address] [place] [address] Dr. Briana Dillard EGFR-NON AF [place] 33 mL/min/1.73m2 Critically low >=60 [facility] Comment on above: Performed By: #### C MP, CMADM, BNP #### [facility] [address] [place] [address] Dr. Briana Dillard Globulin (S) [Mass/Vol] 4.0 g/dL Normal T [facility] Comment on above: Performed By: #### C MP, CMADM, BNP #### [facility] [address] [place] [address] Dr. Briana Dillard Glucose [Mass/Vol] 386 mg/dL Critically high 74-106 [facility] Comment on above: Performed By: #### C KYLE COLMENARESDM, BNP #### [facility] [address] [address] [address] Briana Dillard Potassium [Moles/Vol] 4.6 mmol/L Normal 3.5-5.1 [facility] Comment on above: Performed By: #### C DARRIAN CMADM, BNP #### [facility] [address] [place] [address] Dr. Briana Dillard Protein [Mass/Vol] 7.4 g/dL Normal 6.4-8.2 [facility] Comment on above: Performed By: #### C DARRIAN CMADM, BNP #### [facility] [address] [place] [address] Dr. Briana Dillard Sodium [Moles/Vol] 132 mmol/L Critically low 136-145 [facility] Comment on above: Performed By: #### C DARRIAN CMADM, BNP #### [facility] [address] [place] [address] Dr. Briana Dillard Urea nitrogen [Mass/Vol] 23.0 mg/dL Critically high 7.0-18 .0 [facility] Comment on above: Performed By: #### C DARRIAN CMADM, BNP #### [facility] [address] [place] [address] Dr. Briana Dillard Urea nitrogen/Creatinine [Mass ratio] 14.6 mg/mg Normal [facility] Comment on above: Performed By: #### C MP, CMADM, BNP #### [facility] [address] [place] [address] Dr. Briana Dillard PROTIMEon 11-28-2021 INR Coag (PPP) [Relative time] 1.01 {INR} Normal [facility] Comment on above: Performed By: #### P T, PTT, DDIM #### [facility] [address] [place] [address] Dr. Briana Dillard INR GUIDELINES SEE BELOW Normal [facility] Comment on above: Result Comment: LURDES RED INR: 2.0 - 3.0 CONDITIONS NOT LISTED BELOW 2.5 - 3.5 FOR PROSTHETIC HEART VALVE REPLACEMENT 2.5 - 3.5 RECURRENT THROMBOSIS Performed By: #### P T, PTT, DDIM #### [facility] [address] [place] [address] Dr. Briana Dillard PT Coag (PPP) [Time] 10.9 s Normal 9.0-11.6 [facility] Comment on above: Performed By: #### P T, PTT, DDIM #### [facility] [address] [place] [address] Dr. Briana Dillard PTTon 11-28-2021 aPTT Coag (Bld) [Time] 27.5 s Normal 22.3-36.2 Th e [facility] Comment on above: Performed By: #### P T, PTT, DDIM #### [facility] [address] [place] [address] Dr. Briana Dillard TROPONIN, HIGH SENSITIVITYon 11-28-2021 HSTROP 5.5 pg/mL Normal 4.0-51.3 [facility] Comment on above: Result Comment: CUT- OFF POINTS HAVE BEEN ESTABLISHED BASED ON THE FOURTH UNIVERSAL DEFINITIONS OF MYOCARDIAL INFARCTION. THE UPPER REFERENCE LIMIT (URL) OF TROPONIN, DEFINED THE 99TH PERCENTILE OF cTnI DISTRIBUTION IN A REFERENCE POPULATION, HAS BEEN CONFIRMED THE DECISION THRESHOLD FOR PA DIAGNOSIS. Performed By: #### C MP, CMADM, BNP #### [facility] [address] [place] [address] Dr. Briana Dillard HSTROP 5.4 pg/mL Normal 4.0-51.3 [facility] Comment on above: Result Comment: CUT- OFF POINTS HAVE BEEN ESTABLISHED BASED ON THE FOURTH UNIVERSAL DEFINITIONS OF MYOCARDIAL INFARCTION. THE UPPER REFERENCE LIMIT (URL) OF TROPONIN, DEFINED THE 99TH PERCENTILE OF cTnI DISTRIBUTION IN A REFERENCE POPULATION, HAS BEEN CONFIRMED THE DECISION THRESHOLD FOR PA DIAGNOSIS. Performed By: #### C MP, CMADM, BNP #### [facility] [address] [place] [address] Dr. Briana Dillard HSTROP 5.6 pg/mL Normal 4.0-51.3 The [facility] Comment on above: Result Comment: CUT- OFF POINTS HAVE BEEN ESTABLISHED BASED ON THE FOURTH UNIVERSAL DEFINITIONS OF MYOCARDIAL INFARCTION. THE UPPER REFERENCE LIMIT (URL) OF TROPONIN, DEFINED THE 99TH PERCENTILE OF cTnI DISTRIBUTION IN A REFERENCE POPULATION, HAS BEEN CONFIRMED THE DECISION THRESHOLD FOR PA DIAGNOSIS. Performed By: #### C MP, CMADM, BNP #### [facility] [address] [place], [place] [address] Dr. Briana Dillard XR CHEST 1 Von 11-28-2021 XR CHEST 1 V EXAMINATION: XR CHEST 1 V HISTORY: CHEST PAIN, UNSPECIFIED COMPARISON: XR chest 12/02/2019 FINDINGS: LUNGS: No significant pulmonary parenchymal abnormalities. VASCULATURE: No increased pulmonary vasculature. PLEURA: No pneumothorax, effusion, or pleural thickening. CARDIAC: No cardiomegaly or cardiac silhouette abnormality. MEDIASTINUM: No visible mass or adenopathy. BONES: No fracture or visible bone lesion. OTHER: Negative. IMPRESSION: 1. No acute cardiopulmonary process. Stable chest. Electronically authenticated by: NADJA KEMP Date: 2021-11-28 12:46 Normal [facility] Tobacco Screening.on 022 Adult depression screening assessment Yes -[facility] [address] DO Work Phone: Tobacco use status [facility] a) Yes M -[facility] [address] DO Work Phone: [phone] Tobacco Screening. Yes -[facility] [address] DO Work Phone: [phone] Tobacco Screening. 1-Several days [facility] [address] DO Work Phone: [phone] Tobacco Screening. 0-Not at all [facility] [address] DO Work Phone: [phone] Tobacco Screening. Not difficult at all [facility] [address] DO Work Phone: Echocardiogramon 05-20-2021 Echocardiography [facility] [address] [facility], [address] [place] [address] TRANSTHORACIC ECHOCARDIOGRAM REPORT Patient Name: VIDHYA IBARRA Reading Physician: [id number] Ruma Dawn MD Study Date: 05/20/2021 Referring [id number] SHASHI COTTRELL Physician: MRN/PID: [id number] PCP: Accession/Order#: [id number] [facility] Location: Date of : 1955 Fellow: Gender: F Nurse: Admit Date: Health Care Liaison: Clarisse Sumner RDCS, RVT Height: 160.02 cm CC Report to: Weight: 89.36 kg Study Type: Echocardiogram BSA: 1.92 m2 Blood Pressure: 166 /94 mmHg Diagnosis/ICD: I51.7-Cardiomegaly; R06.00-Dyspnea, unspecified Indication: Obesity, Tobacco Abuse Procedure/CPT: Echo Complete w Full [id number] Study Detail: The following Echo studies were performed: 2D, M-Mode, Doppler and color flow. PHYSICIAN INTERPRETATION: Left Ventricle: The left ventricular systolic function is normal, with an estimated ejection fraction of 60%. The left ventricular cavity size is normal. Spectral Doppler shows an impaired relaxation pattern of left ventricular diastolic filling. Mild concentric left-ventricular hypertrophy. Left Atrium: The left atrium is normal in size. Right Ventricle: The right ventricle is normal in size. There is normal right ventricular global systolic function. Right Atrium: The right atrium is normal in size. Aortic Valve: The aortic valve appears structurally normal. There is no evidence of aortic valve regurgitation. The peak instantaneous gradient of the aortic valve is 5.6 mmHg. The mean gradient of the aortic valve is 3.0 mmHg. Mitral Valve: The mitral valve is normal in structure. There is no evidence of mitral valve regurgitation. Tricuspid Valve: The tricuspid valve is structurally normal. No evidence of tricuspid regurgitation. Pulmonic Valve: The pulmonic valve is structurally normal. There is no indication of pulmonic valve regurgitation. Pericardium: There is no pericardial effusion noted. Aorta: The aortic root is normal. Pulmonary Artery: The main pulmonary artery is normal in size, and position, with normal bifurcation into the left and right pulmonary arteries. CONCLUSIONS: 1. The left ventricular systolic function is normal with a 60% estimated ejection fraction. 2. Mild concentric left-ventricular hypertrophy. 3. Spectral Doppler shows an impaired relaxation pattern of left ventricular diastolic filling. 4. No previous study available for comparison. 5. Technically difficult study. QUANTITATIVE DATA SUMMARY: 2D MEASUREMENTS: Normal Ranges: Ao Root d: 2.80 cm (2.0-3.7cm) LAs: 3.90 cm (2.7-4.0cm) RVIDd: 4.10 cm (0.9-3.6cm) IVSd: 1.50 cm (0.6-1.1cm) LVPWd: 1.30 cm (0.6-1.1cm) LVIDd: 4.70 cm (3.9-5.9cm) LVIDs: 3.40 cm LV Mass Index: 138.0 g/m2 LV % FS 27.7 % LV SYSTOLIC FUNCTION BY 2D PLANIMETRY (MOD): Normal Ranges: EF-A4C View: 64.1 % (>55%) LV DIASTOLIC FUNCTION: Normal Ranges: MV Peak E: 0.65 m/s (0.7-1.2 m/s) MV Peak A: 0.86 m/s (0.42-0.7 m/s) E/A Ratio: 0.75 (1.0-2.2) MV lateral e' 0.07 m/s MV medial e' 0.04 m/s E/e' Ratio: 9.80 (<8.0) MITRAL VALVE: Normal Ranges: MV Vmax: 0.94 m/s (<1.3m/s) MV peak P.5 mmHg (<5mmHg) MV mean P.0 mmHg (<48mmHg) AORTIC VALVE: Normal Ranges: AoV Vmax: 1.18 m/s (<1.7m/s) AoV Peak P.6 mmHg (<20mmHg) AoV Mean P.0 mmHg (1.7-11.5mmHg) LVOT Max Michael: 0.62 m/s (<1.1m/s) AoV VTI: 26.10 cm (18-25cm) LVOT VTI: 12.10 cm LVOT Diameter: 2.10 cm (1.8-2.4cm) AoV Area, VTI: 1.61 cm2 (2.5-5.5cm2) AoV Area,Vmax: 1.81 cm2 (2.5-4.5cm2) AoV Dimensionless Index: 0.46 TRICUSPID VALVE/RVSP: Normal Ranges: Peak TR Velocity: 2.16 m/s RV Syst Pressure: 21.7 mmHg (< 30mmHg) PULMONIC VALVE: Normal Ranges: PV Max Michael: 0.9 m/s (0.6-0.9m/s) PV Max P.1 mmHg [id number] Ruma Dawn MD Electronically signed on 05/24/2021 at 5:25:46 PM Final Normal [facility] Tobacco Screening.on 022 Fall risk assessment a) No falls within the last year [facility] [address] DO Work Phone: Tobacco use status [facility] a) Yes M [facility] y 250 DO Work Phone: Fall risk assessment a) No falls within the last year [facility] y 250 DO Work Phone: Tobacco use status [facility] a) Yes [facility] y 250 DO Work Phone: Tobacco Screening. Yes [facility] 250 DO Work Phone: Bld Gas Venon 12-02-2019 Allens Test N/A [facility] Comment on above: Result Comment: [facility] Department of Pulmonary Medicine [address] [place] [address] Performed By: #### 1 [id number] #### [facility] [facility] [address] [place] [address] Called By: KATHY OCHOA [facility] Comment on above: Performed By: #### 1 [id number] #### [facility] [address] [place] [address] Called To: DR. CORINNE COFFMAN [facility] Comment on above: Performed By: #### 1 [id number] #### [facility] [address] [place] [address] Drawn by [employer] [facility] Comment on above: Performed By: #### 1 [id number] #### [facility] [address] [place] [address] Dt/Tm Notified 17:42:00 [facility] Comment on above: Performed By: #### 1 [id number] #### [facility] [address] [place] [address] pCO2 Guillaume 36.1 mmHg Low 38.0-50.0 [facility] Comment on above: Performed By: #### 1 [id number] #### [facility] [address] [id number] pH (BldV) 7.392 [pH] Normal 7.320-7.430 [facility] Comment on above: Performed By: #### 1 [id number] #### [facility] [address] [place] [address] Sample Site OTHER [facility] Comment on above: Performed By: #### 1 [id number] #### [facility] [address] [place] [address] Sample Type Venous [facility] Comment on above: Performed By: #### 1 [id number] #### [facility] [address] [place] [address] Physician Orderon 12-02-2019 Physician Order [id number]:127 Normal [facility] Vital Signs Date Time Vital Sign Value Performing Clinician Facility 03-24-2023 13:06-0500 Body temperature 97.8 [degF] MD Shaikh Mchugh Work Phone: [place] 03-24-2023 13:06-0500 Body weight 86.63 kg MD Shaikh Mchugh Work Phone: [place] 03-24-2023 13:06-0500 Diastolic blood pressure 67 mm[Hg] MD Shaikh Mchugh Work Phone: [place] 03-24-2023 13:06-0500 Heart rate 68 /min MD Shaikh Mchugh Work Phone: [place] 03-24-2023 13:06-0500 Respiratory rate 16 /min MD Shaikh Mchugh Work Phone: [place] 03-24-2023 13:06-0500 SaO2% (BldA) [Mass fraction] 98 % MD Shaikh Mchugh Work Phone: [place] 03-24-2023 13:06-0500 Systolic blood pressure 130 mm[Hg] MD Shaikh Mcuhgh Work Phone: [place] 03-24-2023 12:53-0500 Body height 160.02 cm MD Shaikh Mchugh Work Phone: [place] 03-11-2023 09:20-0500 Body height 162.56 cm Alta Sharmaine Other [facility] Other 03-11-2023 09:20-0500 Body mass index (BMI) [Ratio] 32.78 kg/m2 Alta Sharmaine Other [facility] Other 03-11-2023 09:20-0500 Body temperature 96.3 [degF] Alta Sharmaine Other [facility] Other 03-11-2023 09:20-0500 Body weight 86.64 kg Alta Sharmaine Other [facility] Other 03-11-2023 09:20-0500 Diastolic blood pressure 77 mm[Hg] Alta Sharmaine Other [facility] Other 03-11-2023 09:20-0500 Respiratory rate 18 /min Alta Sharmaine Other [facility] Other 03-11-2023 09:20-0500 SaO2% (BldA) [Mass fraction] 95 % Alta Sharmaine Other [employer] [employer] Other 03-11-2023 09:20-0500 Systolic blood pressure 139 mm[Hg] Alta Sharmaine Other [employer] [employer] Other 12-08-2022 08:41-0400 Body height 160.02 cm [facility]ikh Louisd [facility] Work Phone: 12-08-2022 08:41-0400 Body mass index (BMI) [Ratio] 32.95 kg/m2 Shaikh Brightwad Work Phone: [facility] Work Phone: 12-08-2022 08:41-0400 Body surface area Derived from formula 1.88 m2 Shaikh Brightwad Work Phone: [facility] Work Phone: 12-08-2022 08:41-0400 Body weight 84.37 kg Shaikh Louisd Work Phone: [facility] Work Phone: 12-08-2022 08:41-0400 Diastolic blood pressure 60 mm[Hg] Shaikh Brightwad Work Phone: [facility] Work Phone: 12-08-2022 08:41-0400 Heart rate 66 /min Shaikh Brightwad Work Phone: [facility] Work Phone: 12-08-2022 08:41-0400 Systolic blood pressure 108 mm[Hg] Shaikh Brightwad Work Phone: [facility] [facility] DO Work Phone: 07-01-2021 13:12-0500 Diastolic blood pressure 88 mm[Hg] Dial Yaimawwad Work Phone: [facility] DO Work Phone: 07-01-2021 13:12-0500 Systolic blood pressure 138 mm[Hg] Shaikh Yaimawwad Work Phone: [facility] DO Work Phone: 07-01-2021 09:20-0500 Diastolic blood pressure 100 mm[Hg] Shaikh Yaimawwad Work Phone: [facility] DO Work Phone: 07-01-2021 09:20-0500 Systolic blood pressure 148 mm[Hg] Shaikh Yaimawwad Work Phone: [facility] DO Work Phone: 07-01-2021 09:01-0500 Diastolic blood pressure 98 mm[Hg] Shaikh Yaimawwad Work Phone: [facility] DO Work Phone: 07-01-2021 09:01-0500 Systolic blood pressure 168 mm[Hg] Shaikh Yaimawwad Work Phone: [facility] DO Work Phone: 07-01-2021 08:51-0500 Body height 160.02 cm Shaikh Yaimawwad Work Phone: [facility] DO Work Phone: 07-01-2021 08:51-0500 Body mass index (BMI) [Ratio] 33.83 kg/m2 Dial Yaimawwad Work Phone: [facility] DO Work Phone: 07-01-2021 08:51-0500 Body surface area Derived from formula 1.9 m2 Shaikh Louisd Work Phone: [facility] DO Work Phone: 07-01-2021 08:51-0500 Body weight 86.64 kg Shaikh Louisd Work Phone: [facility] DO Work Phone: 07-01-2021 08:51-0500 Diastolic blood pressure 104 mm[Hg] Shaikh Louisd Work Phone: [facility] DO Work Phone: 07-01-2021 08:51-0500 Heart rate 87 /min Shaikh Louisd Work Phone: [facility] DO Work Phone: 07-01-2021 08:51-0500 Systolic blood pressure 169 mm[Hg] Shaikh Louisd Work Phone: [facility] DO Work Phone: 07-01-2021 08:51-0500 6 1 Shaikh Louisd Work Phone: [facility] DO Work Phone: Comment on above: PHQ-9 TS 05-24-2021 10:00-0500 Body height 162.56 cm Juan Gonzalez Other [facility] Other 05-24-2021 10:00-0500 Body mass index (BMI) [Ratio] 32.44 kg/m2 Juan Gonzalez Other [facility] Other 05-24-2021 10:00-0500 Body weight 85.73 kg Juan Gonzalez Other [facility] Other 05-20-2021 10:45-0500 60 1 Shaikh Louisd Work Phone: [facility] [address] [place] Work Phone: Comment on above: [id number] 05-13-2021 11:59-0500 Diastolic blood pressure 104 mm[Hg] Shaikh Louisd Work Phone: [facility] [address] DO Work Phone: 05-13-2021 11:59-0500 Systolic blood pressure 162 mm[Hg] Shaikh Louisd Work Phone: [facility] DO Work Phone: 05-13-2021 11:13-0500 Diastolic blood pressure 100 mm[Hg] Shaikh Louisd Work Phone: [facility] DO Work Phone: 05-13-2021 11:13-0500 Systolic blood pressure 170 mm[Hg] Shaikh Louisd Work Phone: [facility] DO Work Phone: 05-13-2021 11:12-0500 Body height 160.02 cm Shaikh Louisd Work Phone: [facility] DO Work Phone: 05-13-2021 11:12-0500 Body mass index (BMI) [Ratio] 34.9 kg/m2 Shaikh Brightwad Work Phone: [facility] DO Work Phone: 05-13-2021 11:12-0500 Body surface area Derived from formula 1.92 m2 Shaikh Brightwad Work Phone: [facility] DO Work Phone: 05-13-2021 11:12-0500 Body weight 89.36 kg Shaikh Louisd Work Phone: [facility] DO Work Phone: 05-13-2021 11:12-0500 Diastolic blood pressure 102 mm[Hg] Shaikh Louisd Work Phone: [facility] DO Work Phone: 05-13-2021 11:12-0500 Heart rate 88 /min Shaikh Louisd Work Phone: [facility] DO Work Phone: 05-13-2021 11:12-0500 Systolic blood pressure 172 mm[Hg] Shaikh Louisd Work Phone: [facility] DO Work Phone: 05-13-2021 11:07-0500 Body height 160.02 cm Shaikh Louisd Work Phone: [facility] DO Work Phone: 05-13-2021 11:07-0500 Body mass index (BMI) [Ratio] 34.9 kg/m2 Shaikh Louisd Work Phone: [facility] DO Work Phone: 05-13-2021 11:07-0500 Body surface area Derived from formula 1.92 m2 Shaikh Brightwad Work Phone: [facility] DO Work Phone: 05-13-2021 11:07-0500 Body weight 89.36 kg Shaikh Louisd Work Phone: [facility] DO Work Phone: 05-13-2021 11:07-0500 Heart rate 88 /min Shaikh Jeison Work Phone: [facility] DO Work Phone: 04-09-2021 11:40-0500 Body height 162.56 cm Juan Gonzalez Other [facility] Other 04-09-2021 11:40-0500 Body mass index (BMI) [Ratio] 32.44 kg/m2 Juan Carlos Other [employer] Other 04-09-2021 11:40-0500 Body weight 85.73 kg Juan Carlos Other [facility] Other 04-09-2021 11:40-0500 Diastolic blood pressure 72 mm[Hg] Juan Gonzalez Other [employer] Other 04-09-2021 11:40-0500 Systolic blood pressure 124 mm[Hg] Juan Carlos Other [facility] Other Encounters Encounter Date Encounter Type Care Provider Facility Start: 04-13-2023 Telephone encounter Neena Kamara [facility] Start: 04-13-2023 End: 04-13-2023 ambulatory SHAIKH JEISON [facility] Other Start: 04-06-2023 End: 04-07-2023 ambulatory Radha Dunaway MD Facility:[facility] Start: 03-24-2023 ambulatory Yakelin Staley Facility:[place] Start: 03-24-2023 End: 03-24-2023 ambulatory MD Shaikh Mchugh Work Phone: [facility] Work Phone: Start: 03-24-2023 End: 03-24-2023 Registered Recurring MD Shaikh Mchugh Work Phone: [facility] Work Phone: Start: 03-11-2023 End: 03-11-2023 ambulatory Alta Sharmaine Other [facility] Other Start: 03-11-2023 Office outpatient vi sit 25 minutes Alta Sharmaine [facility] [place] Start: 03-04-2023 End: 03-04-2023 ambulatory Alta Sharmaine Facility:[place] Start: 03-04-2023 End: 03-04-2023 ambulatory MD Shaikh Mchugh Work Phone: [facility] Work Phone: Start: 03-04-2023 End: 03-04-2023 Patient encounter procedure MD Shaikh Mchugh Work Phone: [facility] [place] Work Phone: Start: 12-08-2022 Office outpatient vi sit 15 minutes Shaikh Jeison Work Phone: [facility] [address] DO Work Phone: Start: 12-08-2022 Patient encounter procedure Shaikh Jeison Work Phone: [facility] [place] Work Phone: Start: 12-08-[address] Shashi Cottrell II Facility: Start: 11-10-2022 End: 11-11-2022 ambulatory Radha Dunaway MD Facility: [facility] Start: 10-16-2022 ambulatory SHAIKH Gurjit MCHUGH Facilit y:[facility] Start: 09-18-2022 End: 09-18-2022 ambulatory Alta Sharmaine Facility:[place] Start: 07-17-2022 End: 07-18-2022 ambulatory SHAIKH Gurjit MCHUGH Facility:[facility] Start: 06-29-2022 Rx Renewal Shaikh Brightwad Work Phone: [facility] DO Work Phone: Start: 06-28-2022 End: 06-29-2022 ambulatory H FAWWAD Facility:[facility] Start: 06-12-[address] ELIGIO HODGE . Faci lity:[facility] Start: 05-27-2022 End: 05-27-[address] ELIGIO HODGE . Facility:[facility] Start: 05-13-2022 End: 05-13-[address] ELIGIO HODGE . Facility:[facility] Start: 04-10-2022 End: 04-11-[address] ELIGIO HODGE . Facility:[facility] Start: 02-17-2022 End: 02-18-2022 ambulatory SHAIKH Gurjit GARSIAELISHAD Facility:[facility] Start: 01-10-[address] Shashi Cottrell II Facility: Start: 01-09-2022 End: 01-10-2022 ambulatory DIAL H FAWWAD Facility:[facility] Start: 11-28-2021 End: 11-29-2021 ambulatory H FAIraWAD Facility:[facility] Start: 10-17-2021 End: 10-18-2021 ambulatory EVA ROSEN . Facility: Start: 07-01-2021 AUDIT Shaikh Yaimawwad Work Phone: [facility] DO Work Phone: Start: 05-28-2021 FUV, Provider: Shashi Cottrell, Status: Pen, Time: 10:50 AM Dial Fawwad Work Phone: [facility] DO Work Phone: Start: 05-26-2021 Chart Update Dial Fawwad Work Phone: [facility] DO Work Phone: Start: 05-24-2021 End: 01-21-2022 ambulatory Juan Gonzalez Other [facility] Other Start: 05-24-2021 Office outpatient vi sit 15 minutes Juan Gonzalez [facility] Start: 05-20-2021 Patient encounter procedure Dialsena Mchugh Work Phone: [facility] [address] [place] Work Phone: Start: 05-13-2021 Office consultation new/estab patient 60 min Shaikh Jeison Work Phone: [facility] [address] DO Work Phone: Start: 04-09-2021 End: 04-09-2021 ambulatory Juan Gonzalez Other [employer] [employer] Other Start: 04-09-2021 Office outpatient ne w 45 minutes Juan Gonzalez [facility] Procedures Date Procedure Procedure Detail Performing Clinician Start: 03-04-2023 Urine culture MD Shaikh Mchugh Work Phone: Start: 05-20-2021 Echocardiography Shaikh Jeison Work Phone: Cardiac catheterization Wayne Mchugh Work Phone: Cholecystectomy Shaikh Louis johnson Work Phone: Dilation and curettage Shaik gurjit Mchugh Work Phone: Total colonoscopy Shaikh Bright [place] Work Phone: Plan of Treatment Date Care Activity Detail Author Start: 03-04-2023 Bacteria identified in Urine by Culture [place] Start: 12-12-2022 FUV, Provider: Shashi Cottrell, Status: Pen, Time: 3:20 PM FUV, Provider: Shashi Cottrell, Status: Pen, Time: 3:20 PM [facility] DO Work Phone: Start: 01-10-2022 FUV, Provider: Shashi Cottrell, Status: Pen, Time: 2:00 PM FUV, Provider: Shashi Cottrell, Status: Pen, Time: 2:00 PM [facility] [facility] DO Work Phone: Start: 07-01-2021 FUV, Provider: Shashi Cottrell, Status: Pen, Time: 8:40 AM FUV, Provider: Shashi Cottrell, Status: Pen, Time: 8:40 AM [facility] [address] [place] Work Phone: Start: 05-28-2021 FUV, Provider: Shashi Cottrell, Status: Pen, Time: 10:50 AM FUV, Provider: Shashi Cottrell, Status: Pen, Time: 10:50 AM [facility] [address] DO Work Phone: Start: 05-20-2021 ECHO, Provider: JACEY [facility] ULTRASOUND 01,[id number], Status: Pen, Time: 10:45 AM ECHO, Provider: JACEY [facility] ULTRASOUND 01,[id number], Status: Pen, Time: 10:45 AM [facility] [facility] DO Work Phone: [facility] Immunizations Immunization Date Immunization Notes Care Provider Yaima saul 10-20-2020 pneumococcal polysaccharide vaccine, 23 valent Shaikh Jeison Work Phone: [facility] 250 DO Work Phone: 08-23-2020 COVID-19 Vaccine Moderna - Documentation Purposes Only Juan Gonzalez Other [facility] Other 05-04-2020 pneumococcal conjuga te vaccine, 13 valent Shaikh Yaimawwaalex Work Phone: [facility] 250 DO Work Phone: Comment on above: Series: 02-03-2020 Influenza, injectabl e, Madin Kyra Canine Kidney, preservative free, quadrivalent Shaikh Jeison Work Phone: [facility] 250 DO Work Phone: 02-09-2019 Vaxneuvance 0.5 ML Intramuscular Suspension Prefilled Syringe Shaikh Jeison Work Phone: -[facility] 250 DO Work Phone: 04-05-2017 influenza, injectabl e, quadrivalent, preservative free [facility] Work [facility]: Payers Date Payer Category Payer Self-pay [id number] 2022 Medicaid [id number] 2022 Private Health Insurance 1959 Medicare [id number] 2.16. [id number] 1955 Unknown [id number] 2.16.84 0.1.745927.3.579.2.593 1955 Unknown [id number] 2.16.84 0.1.873590.3.579.2.593 1955 Unknown [id number] 2.16.84 0.1.985455.3.579.2.593 1955 Unknown [id number] 2.16.84 0.1.377862.3.579.2.593 1955 Unknown [id number] 2.16.84 0.1.579161.3.579.2.593 1955 Unknown [id number] 2.16.84 0.1.096881.3.579.2.593 1955 Unknown [id number] 2.16.84 0.1.675261.3.579.2.593 1955 Unknown [id number] 2.16.84 0.1.925589.3.579.2.593 1955 Unknown [id number] 2.16.84 0.1.518197.3.579.2.593 1955 Unknown [id number] 2.16.84 0.1.203141.3.579.2.593 1955 Unknown [id number] 2.16.84 0.1.922721.3.579.2.593 1955 Unknown [id number] 2.16.84 0.1.987258.3.579.2.593 1955 Unknown [id number] 2.16. 840.1.790427.3.579.2.356 1955 Unknown [id number] 2.16. 840.1.880340.3.579.2.356 1955 Unknown [id number] 2.16.840 .1.576906.3.579.2.1259 1955 Unknown [id number] 2.16. 840.1.891705.3.579.2.196 1955 Unknown [id number] 2.16. 840.1.838366.3.579.2.196 Medicare [id number] 2.1 6.840.1.380423.19 Unknown Unknown [id number] 2.16.8 40.1.574863.3.579.2.531 Unknown [id number] 2.16.8 40.1.817917.3.579.2.531 Unknown [id number] 2.16.8 40.1.037629.3.579.2.531 Social History Date Type Detail Facility Daily caffeine consumption Daily caffeine consumption -[facility] [facility] DO Work Phone: Comment on above: 2-3 cups of coffee d aily.; 1/2 pack daily.; Sex Assigned At Sex Assigned At [facility] Other Start: 01-24-2021 End: 03-24-2023 Tobacco smoking status NHIS Smoker (finding) [place] Start: 1955 Sex Assigned At Female F [facility] Functional Status Date Assessment Result Facility 07-01-2021 PHQ-9 [id number] Mild (5-9) [facility] [place] [facility] DO Work Phone: Clinical Notes 12-03-2019 to 03-11-2023 Note Date & Type Note Facility 03-11-2023 Evaluation note Encounter Date Diagnosis Assessment Notes Mar, Diabetes mellitus with chronic kidney disease (ICD-10 - E11.22) Continue insulin Levemir. Continue follow with PCP for DM management. Continue losartan. Mar, Chronic kidney disease, stage III (moderate) (ICD-10 - N18.30) She has CKD due to longstanding DM and HTN. Her baseline serum creatinine is 1.5-1.7 mg/dl. Her renal function has likely declined due to the progression of CKD in setting of uncontrolled DM and HTN. Her renal US in 2019 showed unremarkable kidneys. She has no hematuria and proteinuria. I have d/w her the improtance of good DM and HTN control to slow down the progression of CKD Mar, Hypertensive chronic kidney disease w stg 1-4/unsp chr kdny (ICD-10 - I12.9) Her blood pressure is Controlled and she appears to be euvolemic. Continue current antihypertensive medication. Mar, Secondary hyperparathyroidism (ICD-10 - N25.81) MBD parameters including calcium, phosphorus, PTH and vitamin D are within the goal. Continue oral vitamin D supplement. Mar, Hepatic cyst (ICD-10 - K76.89) She oliva liver cyst in her which was also present on CT scan ordered by Dr. Moser in 2017. She opted against the follow up with GI Mar, Hyperuricemia (ICD-10 - E79.0) She has hyperuricemia due to the CKD but denies any recent gout flare. Will monitor without any medication. Mar, Leukocytosis (ICD-10 - D72.829) She has a persistent leukocytosis due to the unclear etiology. I have referred her to the hematology for further work-up. Mar, Hypomagnesemia (ICD-10 - E83.42) She has hypomagnesemia due to the diuretics as renal magnesium wasting. I have prescribed oral magnesium once daily. [facility] Other 03-16-2023 NotePAIN MANAGEMENT CONSULTATION CONSULTATION DATE: 07/17/2022 HISTORY: This is a 66-year-old female who returns to the clinic for a three month follow up for her chronic lower back pain. She was last seen on 04/10/2022 which, at that time, she was ordered a lumbar epidural steroid injection, and was placed on Mirapex 0.25 mg q.h.s. The patient has noticed definite improvement with the Mirapex; however the LES has been on hold. She is a diabetic and, despite three diabetic medications, her average daily sugars range between 250 and 300. We will do no injectable steroids until her glucose is further under control. Other medications include gabapentin 600 mg t.i.d., Percocet 5/325 b.i.d., tizanidine 4 mg q.h.s. and trazodone. Overall, she feels that she is doing fairly well. Her pain is 2/10, but is will flare with activities such as standing, walking, housework, lifting and bending. She does use heat, which does give her relief. Patient's REVIEW OF SYSTEMS / PAST MEDICAL HISTORY / ALLERGIES and IMAGES have been reviewed and noted on the chart. PHYSICAL EXAM: VITAL SIGNS: Blood pressure is 135/74. Heart rate is 62. Temperature is 97.5. She is 5'3 , weighs 87 kg. GENERAL IMPRESSION: Pleasant, appropriate, in no acute distress. FOCUSED EXAM - BACK: Range of motion is functional in lateral rotation and flexion/extension. Minimal spinal axial pain reproduced over the lower lumbar facets of L4-L5 bilaterally. Pain does radiate below the knee on the right. Bilateral radiating pain along the anterior aspects of the lower extremities. MUSCULOSKELETAL: Motor is intact, 4/5 bilaterally. No overt motor weakness noted. Patient walks unassisted with a stable gait. NEUROLOGICAL: Radicular sensory with patchy hypoesthesia noted along the L4-L5 distribution to the level just below the knee. +1 patellar and Achilles reflexes. Patient cognitively intact. DIAGNOSIS: Chronic lower back pain, lumbar spondylosis and lumbar radiculitis. PLAN: We will refill her Mirapex 0.25 mg q.h.s. We will continue to maintain gabapentin, Percocet and tizanidine at the set dose and frequency. U-Tox will be collected in the office today. We will continue to medically manage her and hold off on any steroid injectables at this time. Patient agrees with this plan and we will see her in three months' time unless otherwise indicated.[id number] NoteCONSULTATION CONSULTATION DATE: 04/10/2022 HISTORY OF PRESENT ILLNESS: This is a 66-year-old female who returns to the clinic for a three month follow up for chronic lower back pain. She was last seen on 01/19/2022 and, at that time, she was supposed to restart her Mirapex at 0.25 mg q.h.s. for her restless leg. Patient reports that she did not start it, as she did not have any refills and did not call the office. Her restless legs are keeping her up throughout the night as well as her lower back pain. She did have radiofrequency ablation of her lumbar spine in September of this year. Overall, she states her back pain is tolerable. She rates it 3/10 with a deep ache. She does not participate in exercises or stretching. I did send her to physical therapy approximately 6-8 weeks ago, and she completed those in [place]. She is continuing her home exercises as directed, but not consistently. Medications include gabapentin 600 mg t.i.d., Percocet 5/325 b.i. d., tizanidine 4 mg q.h.s. and trazodone. She has recently been started on new insulin for diabetes, as she has had an increasing A1c. Activities such as twisting, pushing, pulling, standing and walking aggravate her pain. She does use heat occasionally which decreases her pain. Patient's REVIEW OF SYSTEMS / PAST MEDICAL HISTORY / ALLERGIES and IMAGES have been reviewed and they are noted on the chart. PHYSICAL EXAM: VITAL SIGNS: Blood pressure 157/80, heart rate is 75. Temperature is 97.5. She is 5'3 , weighs 87 kg. GENERAL APPEARANCE: Pleasant, appropriate, no acute distress. Somewhat anxious sitting in the chair. FOCUSED EXAM - BACK: Range of motion is functional in lateral rotation and flexion/extension. Paravertebral muscles are non-spasmodic. Upon compression of the lower lumbar facets, no reproduction of spinal axial pain. Maldonado's point is negative with negative FABERs and compression test. MUSCULOSKELETAL: Motor is 4/5 bilaterally. Muscle atrophy noted to bilateral quadriceps and hamstrings. Patient walks unassisted with a stable gait. NEUROLOGICAL: Patchy hypoesthesia bilateral lower extremities after standing for long period of time. Bilateral reflexes are +1. Patient is cognitively intact. DIAGNOSIS: Lumbar radiculitis, lumbar spinal canal stenosis, lumbar spondylosis, lumbar degenerative disc and restless leg. PLAN: We will restart Mirapex 0.25 mg q.h.s. with refills. We will schedule for lumbar epidural steroid injection at the first of the year, and patient will be followed up in the clinic thereafter. Patient does agree with this plan.[id number] NoteCONSULTATION CONSULTATION DATE: 01/09/2022 HISTORY OF PRESENT ILLNESS: This is a 66-year-old female returning to the clinic for a three month follow up for her chronic lower back pain. Today, she reports her pain 3/10 at rest, will increase to 6/10 with activity. Activities such as prolonged standing, walking, housework and ADLs aggravate her pain. She states at times she has to sit and rest during that time as she feels her back tightening. With prolonged walking, she does feel that her legs become weak, but she has not had an accident or a fall. Her last procedure was in September of 2021, which was a radiofrequency ablation of her lower lumbar area. Current medication includes gabapentin 600 mg t.i.d., Percocet 5/325 b.i.d., tizanidine and trazodone. During her last appointment, she was started on Mirapex 0.25 mg for evening leg cramps. Patient states it was helpful, but she did not call for a refill once her prescription was empty; therefore, today, she is complaining of increased leg cramps, even while sitting in the chair. Patient's REVIEW OF SYSTEMS / PAST MEDICAL HISTORY / ALLERGIES and IMAGES have been reviewed and they are noted on the chart. PHYSICAL EXAM: Blood pressure 154/93, heart rate is 114. Temperature is 98.2. She is 5'3 and weighs 86.2 kg. GENERAL APPEARANCE: Pleasant, appropriate, in no acute distress, but rocking back and forth in the chair. FOCUSED EXAM - BACK: Significant bilateral paravertebral tautness is noted. No trigger points identified. No reproduction of spinal axial pain upon direct compression along the lumbar facets. Range of motion is functional in lateral rotation and flexion/extension. Maldonado's point non-tender. MUSCULOSKELETAL: Diffuse muscle atrophy noted to bilateral lower extremities. Patient does ambulate with a steady gait without use of assistive device. NEUROLOGICAL: Radicular sensory is intact. Negative polyneuropathy. DIAGNOSIS: Lumbar spondylosis, lumbar degenerative disc disease, lumbar spasms. PLAN: Patient will restart her Mirapex 0.25 mg q.h.s. To address her paravertebral spasms and her musculoskeletal weakness and deconditioning, she will start PT 2-3 times a week for 6-8 weeks. Patient prefers to do this in [place]. She will be followed up in the office in three months' time and was encouraged to take a multivitamin daily. Patient agrees with this plan of care. [facility]-2500 NoteCONSULTATION CONSULTATION DATE: 10/17/2021 HISTORY OF PRESENT ILLNESS: This is a 65-year-old female returning to the clinic status post bilateral RFA of L3, L4, L5 with the last procedure on 09/24/2021. This was a repeat RFA for this patient. At this point, she is reporting 60% relief, but is still experiencing a high amount of pressure-like pain, especially with sitting. Patient states she cannot tolerate standing for long periods of time, as she feels bilateral leg weakness and back fatigue. Her current medications include gabapentin 600 mg t.i.d, Percocet 5/325 b.i.d., tizanidine 4 mg daily and trazodone. Patient feels that her tizanidine is not working as she has significant back spasms. She does report night time leg jumpiness and is unable to sleep more than two hours at a time. Activities that aggravate her pain: Standing, walking, lying, ADLs and sleeping. She alternates the use of heat and ice. Patient's REVIEW OF SYSTEMS / PAST MEDICAL HISTORY / ALLERGIES and IMAGES have been reviewed and they are noted in the chart. PHYSICAL EXAM: VITAL SIGNS: Blood pressure is 141/84. Heart rate is 91. Temperature is 97.1. She is 5'3 and weighs 85.1 kg. GENERAL APPEARANCE: Moderately uncomfortable sitting in a chair, pleasant and appropriate. FOCUSED EXAM - BACK: Range of motion is functional in lateral rotation and flexion/extension. Reproduction of patient's pain symptomatology to direct compression along the bilateral paravertebral muscles in her lower lumbar area. Bilateral trigger points identified with positive jump response. Maldonado's point is non-tender bilaterally. MUSCULOSKELETAL: Muscle atrophy noted to bilateral lower extremities. Patient does not use assistive device and ambulates with a steady gait. NEUROLOGICAL: She has patchy hypoesthesia noted along the L5-S1 dermatome bilaterally to the level of her ankles. IMPRESSION: Bilateral paravertebral spasms, lumbar degenerative disc and lumbar spondylosis, lumbar radiculitis. PLAN: Patient will receive bilateral trigger point injections in the office, which she consents to. We will begin her on Mirapex 0.25 mg q.h.s. for restless leg symptoms, and we will change her muscle relaxer to baclofen 10 mg q.h.s. The patient was instructed to stop the tizanidine. Education was given to the patient regarding proper recovery time including continuing with her heat rub and vitamin regimen. Patient agrees with the plan of care and would like to proceed with the injections. She will be followed up in the clinic in three months' time unless otherwise indicated. [facility] Signed and Approved by: EVA ROSEN . 10/30/2021 16:23:00[facility]06-16-2022 NoteCONSULTATION PROCEDURE DATE:10/17/2021 PREOPERATIVE DIAGNOSIS: Bilateral lumbar spasms. POSTOPERATIVE DIAGNOSIS: Bilateral lumbar spasms. PROCEDURE: Bilateral lumbar trigger point injections. Subsequent to obtaining informed consent, the patient was placed in the upright standing forward flexion position. Alcohol prep was used to sterilize the site. A 25 gauge needle with 0.125% Marcaine and 40 mg of Kenalog was divided into two doses. Needle was advanced inside the trigger points. Negative heme. Medication was injected in a fan-like pattern. Patient tolerated the procedure well with no overt complications. She will be followed up in the office. [facility] Signed and Approved by: EVA ROSEN . 10/30/2021 16:23:00[facility]01-21-2022 Evaluation note* Encounter Date Diagnosis Assessment Notes Treatment Notes Treatment Clinical Notes May, Cervical disc displacement (ICD-10 - M50.20) I have independently reviewed the plain x-ray of the cervical spine on flexion and extension showing little movement at the C5-6 and C6-7 disc space. Her MRI showed a large C6-7 disc on the right and C5-6 foraminal narrowing. Today clinically the patient has complete relief of symptoms with good arm strength. She is welcome to come back should a new symptom arise; at this point no intervention is needed. [facility] Other 12-07-2021 Evaluation note* Encounter Date Diagnosis Assessment Notes Treatment Notes Treatment Clinical Notes Apr, Cervical disc disorder at C5-C6 level with radiculopathy (ICD-10 - M50.122) I have independently reviewed the MRI of the cervical spine and the report. She has a foraminal narrowing at C5-6 on the right which I disagree with the radiology reading there is an obvious disc osteophyte at C5-6 on the right causing some compression of the right C6 nerve root and it is clinically manifested by of right C6 weakness that is mild she also has a C6-7 disc osteophyte with real C7 weakness that is quite significant she has a lot of pain, most of it is C7. She has other comorbidities to include chronic pain she takes oxycodone 2 to 3/day for several years because of chronic back pain and she has taken chronic gabapentin. She has an enlarged heart of unknown significance I will need to get cardiac clearance. I sent her first for physical therapy I will see her in 4 to 6 weeks I understand her gabapentin has been increased which is exactly what I would recommend doing and I will again see her in 4 to 6 weeks and figure out our next path which will most likely be surgical intervention C5-6 C6-7 with anterior cervical discectomy structural allograft fusion and plate C5-7. Apr, Cervical disc disorder at C6-C7 level with radiculopathy (ICD-10 - M50.123) Apr, Cardiomegaly (ICD-10 - I51.7) [facility] Other 01-15-2021 History of Present illness Narrative* Patient is seen in consultation at the request of her neurosurgeon for history of cardiomegaly. * She is in individual who denies a known history of heart disease although she acknowledges a poor comprehension of medical matters. She states she was hospitalized about a year ago at an outside hospital where she was told her heart was enlarged and her medical therapy was changed. Review of her meds suggest that she may have actually had systolic or diastolic heart failure and consequently we believe that assessment of underlying heart disease is a good idea. * Its been a year since her medical therapy was adjusted or changed and although previous echocardiogram may be interesting current echocardiogram reflecting her current cardiac status in regards to heart size thickness and function is recommended in order to evaluate the previous history of stated cardiomegaly. When asked if she has any manifestations of heart failure she states she does have someshortness of breath but she always thought it was on the basis of her smoking. I advised her that delineation of the presence or absence of structural heart disease would help to determine if her complaints of dyspnea are actually pulmonary or cardiac and because of this we recommend an echocardiogram. Other medical therapy is recommended to be continue as is and she will follow-up after testing is completed [facility] Work Phone: [phone]) 330-318001-10-2021 History of Present illness Narrative* Patient is seen in consultation at the request of her neurosurgeon for history of cardiomegaly. * She is in individual who denies a known history of heart disease although she acknowledges a poor comprehension of medical matters. She states she was hospitalized about a year ago at an outside hospital where she was told her heart was enlarged and her medical therapy was changed. Review of her meds suggest that she may have actually had systolic or diastolic heart failure and consequently we believe that assessment of underlying heart disease is a good idea. * Its been a year since her medical therapy was adjusted or changed and although previous echocardiogram may be interesting current echocardiogram reflecting her current cardiac status in regards to heart size thickness and function is recommended in order to evaluate the previous history of stated cardiomegaly. When asked if she has any manifestations of heart failure she states she does have someshortness of breath but she always thought it was on the basis of her smoking. I advised her that delineation of the presence or absence of structural heart disease would help to determine if her complaints of dyspnea are actually pulmonary or cardiac and because of this we recommend an echocardiogram. Other medical therapy is recommended to be continue as is and she will follow-up after testing is completed [facility] [address] DO Work Phone: [phone]) 493-135508-01-2020 History general Narrative - Reported* Type Description Date Medical History TYPE II DIABETES Medical History HYPERTENSION Medical History ENLARGE HEART Surgical History CHOLECYSTECTOMY Hospitalization History PNEUMONIA 12/2019 [facility] Other chief complaint Narrative - ReportedVIDHYA IBARRA is being seen for a consultation for cardiomegaly.-[facility] [address] DO Work Phone: Chief complaint Narrative - ReportedVIDHYA IBARRA is being seen for a consultation for cardiomegaly.[facility] Work Phone: Consult note Author Yakelin Staley [place] March 25, 2023 10:10am Note Date/Time March 24, 2023 1:49pm [facility] [place] [address] Hem/Onc Consult Note - OP Signed Patient: Vidhya Ibarra MR#: [id number] : 1955 Acct:[id number] Age/Sex: 67 / F Type: REG RCR Copies to: MD Shaikh Jeison Kahn MD~ HPI Date/Time of Service: Date of Service: 03/24/2023 Time of Service: 13:49 Referring Provider/PCP: Referring Provider: Alta Schmid MD PCP: Shaikh Jeison MD - History of Present Illness Reason for Consultation: leukocytosis Chief Complaint: Patient is here today for a referral from Dr Alta Schmid MD for Leukocytosis HPI: Vidhya is a 67 year old female smoker with a history of chronic pain, COPD, chronic kidney disease, depression, diabetes, enlarged heart, HTN, neuropathy and leukocytosis. Surgical history includes D&C and cholecystectomy. She denies personal history of cancer. Family cancer history includes her father with unk type of metastatic cancer and her son with thyroid cancer. She is referred by Dr. Schmid for leukocytosis. Recent labs reveal wbc count 16.2with normal platelets and hemoglobin. No differential done previously. It appears the leukocytosis started around September 2022. On exam she has fatigue but she attributes this to her chronic back pain. She gets regular injections in her back. She denies shortness of breath or chest pain. Has some restless legs, muscle cramps, and hair thinning. She denies ice cravings, black or tarry stool or other bleeding. She has numbness and tingling in her R leg and her feet. She denies headaches, fevers, chills, sweats, rash, or other concerns. She does have a spot she notes as a boil on her right breast that has been present for the last probably 6 months or so. She has male physicians and has not had any examine this to date. She notes it will drain on occasion and hurts. She has not scheduled her mammogram because she does not want this to hurt any worse than it does when touched. [facility] - Medical History Medical History: Medical History (Last Updated 03/24/23 @ 12:54 by Kandy Muir) Chronic pain CKD (chronic kidney disease) COPD (chronic obstructive pulmonary disease) Depression Diabetes Enlarged heart Hypertension Leukocytosis Neuropathy Smoker - Surgical History Surgical History: Surgical History (Last Reviewed 03/24/23 @ 12:54 by Kandy Muir) H/O dilation and curettage Hx of cholecystectomy - Family History Family History: Family History (Last Reviewed 03/24/23 @ 13:00 by Kandy Muir) Father Mesothelioma Mother Hypertension Heart disease - Social History Smoking Status: Current every day smoker Tobacco Type: cigarettes Substance Use Type: None Home Medications & Allergies Allergies prednisone Allergy (Verified 01/24/21 08:00) Hives Home Medications atorvastatin 40 mg tablet 40 mg PO DAILY 03/23/23 [History Confirmed 03/24/23] bumetanide 0.5 mg tablet 0.5 mg PO DAILY 03/23/23 [History Confirmed 03/24/23] gabapentin 600 mg tablet 600 mg PO TID 03/23/23 [History Confirmed 03/24/23] glipizide 10 mg tablet 10 mg PO BID 03/23/23 [History Confirmed 03/24/23] losartan 100 mg-hydrochlorothiazide 25 mg tablet 1 tab PO DAILY 03/23/23 [History Confirmed 03/24/23] metoprolol tartrate 50 mg tablet 50 mg PO BID 03/23/23 [History Confirmed 03/24/23] oxycodone-acetaminophen 5 mg-325 mg tablet 1 tab PO BID PRN Pain 03/23/23 [History Confirmed 03/24/23] paroxetine HCl 20 mg tablet 20 mg PO DAILY 03/23/23 [History Confirmed 03/24/23] pramipexole 0.5 mg tablet 0.5 mg PO DAILY 03/23/23 [History Confirmed 03/24/23] trazodone 100 mg tablet 100 mg PO QHS 03/23/23 [History Confirmed 03/24/23] cephalexin 500 mg capsule 500 mg PO TID 5 days #15 caps 03/24/23 [Rx] insulin NPH-regular 70-30 U-100 insulin 100 unit/mL subcutaneous pen (Novolin 70-30 FlexPen U-100 Insulin) 20 unit subcut BID 03/24/23 [History Confirmed 03/24/23] Objective - Height/Weight Height/Weight: Height 5 ft 3 in Weight 86.636 kg - Vital Signs Vital Signs: 03/24/23 13:06 Temperature 97.8 F Pulse Rate [Left Brachial] 68 Respiratory Rate 16 Blood Pressure [Left Arm] 130/67 02 Sat by Pulse Oximetry 98 Oxygen Delivery Method Room Air Physical Exam Narrative: ECOG PS 0 CONSTITUTIONAL: The patient is in no acute distress. HEAD / FACE: Normocephalic. EYES: Pupils are equal and reactive to light. Conjunctivae and lids are benign in appearance. Ocular movement intact. EARS: Hearing grossly intact. NOSE / MOUTH / THROAT: Nose, mouth, tongue and oropharynx are benign in appearance. No signs of inflammation. NECK / THYROID: Neck is supple. Thyroid is symmetrical, without thyromegaly, masses or palpable nodules. LYMPHATIC: No palpable cervical, supraclavicular, or inguinal adenopathy. RESPIRATORY: Normal to inspection. Lungs clear to auscultation and percussion. No wheezing, rales, rhonchi or rubs. Normal effort. CARDIOVASCULAR: Regular rate and rhythm. No murmurs, gallops, or rubs. ABDOMEN: Bowel sounds normoactive. Soft, nontender, non-distended. No splenomegaly. No palpable masses. INTEGUMENTARY: On the lower outer portion of her right breast she has an approx.2in linear area that appears purple with a small area scabbed over. No current drainage, no nodule/lump underneath or around this noted. No warmth, but some mild odor. No skin thickening or nipple discharge, remaining breast exam withoutlumps or skin changes. R axilla with fullness but no obvious nodule. EXTREMITIES: No edema, cyanosis or clubbing. NEUROLOGICAL: Alert and oriented. Cranial nerves intact. No gross motor or sensory deficits. PSYCHIATRIC: No anxiety or evidence of depression. Assessment and Plan (1) Leukocytosis leukocytosis no differential in records to evaluate further appears to have started in September 2022, mild current every day smoker She does have an area under her right breast that has been present around the same time her leukocytosis started that has intermittent drainage, some foul odor and pain. We will prescribe an antibiotic to see if this clears up, and also reiterated the importance of her mammogram for full breast evaluation. For now, will plan mammogram, antibiotic therapy, and will get a cbc with differential for initial evaluation. Her increased wbc count likely is related to her breast infection. If differential notes increase in neutrophils, will hold off on additional work-up until she completes antibiotics and mammogram, then will repeat labs and follow-up. She is in agreement with this plan and has no questions. - Time with Patient Coordination of Care & Counseling Time: Greater than 50% of time spent with patient was for coordination of care (as documented) and [id number] counseling of patient and/or family. Dictated By: Yakelin Staley APRN DD/ 1349 Signed By: <Electronically signed by JOSE Staley> 03/25/23 1010 [facility] Work Phone: Evaluation noteNo assessment information available [facility] Work Phone: Evaluation noteNo InformationNowestern missouri [facility] center [employer] Other History of Present illness Narrative* Patient returns in follow-up of problems as noted. In the interim she is done well. Blood pressure is well-controlled but she arrives today in need of a prescription and it was provided. * Chart review was undertaken. The reason for original consultation was concerns regarding cardiomegaly which turned out to not be the case. We have not been able to identify any evidence of coronary disease, cardiomyopathy, or arrhythmia and because of all the above we believe heart regular needs for cardiac visits and/or care is unlikely and we suggest henceforth she be seen as needed and follow-up primarily with her PCP. She is in agreement. We did advocate the merits of diet weight loss and more importantly smoking cessation. [facility] [address] DO Work Phone: Summary Purpose Family History No Family History Records FoundUnknown Family Member Name Dates Details FH: coronary artery bypass s urgery: Mother(V17.3, Z82.49) Status:Active Family history of malignant neoplasm: Father(V16.9, Z80.9) Status:Active Unknown Family Member Name Dates Details FH: coronary artery bypass s urgery: Mother(V17.3, Z82.49) Status:Active Family history of malignant neoplasm: Father(V16.9, Z80.9) Status:Active Unknown Family Member Name Dates Details Family history of malignant neoplasm: Father(V16.9, Z80.9) Status:Active FH: coronary artery bypass s urgery: Mother(V17.3, Z82.49) Status:Active Unknown Family Member Name Dates Details Family history of malignant neoplasm: Father(V16.9, Z80.9) Status:Active FH: coronary artery bypass s urgery: Mother(V17.3, Z82.49) Status:Active Unknown Family Member Name Dates Details FH: coronary artery bypass s urgery: Mother(V17.3, Z82.49) Status:Active Family history of malignant neoplasm: Father(V16.9, Z80.9) Status:Active Unknown Family Member Name Dates Details FH: coronary artery bypass s urgery: Mother(V17.3, Z82.49) Status:Active Family history of malignant neoplasm: Father(V16.9, Z80.9) Status:Active Unknown Family Member Name Dates Details FH: coronary artery bypass s urgery: Mother(V17.3, Z82.49) Status:Active Family history of malignant neoplasm: Father(V16.9, Z80.9) Status:Active Unknown Family Member Name Dates Details Family history of malignant neoplasm: Father(V16.9, Z80.9) Status:Active FH: coronary artery bypass s urgery: Mother(V17.3, Z82.49) Status:Active Relationship Condition Age at Onset Recorded Date/T norris father Mesothelioma Unknown Not Specified Hypertension Unknown Heart disease Unknown Advance Directives No Advanced Directives Records Found Advance Directive Response Recorded Date/ Time Advance Directives No November 23 12:44pm Advance Directive Response Recorded Date/ Time Advance Directives No November 23 11:44am Reason for Referral Reason *FU 04/23 Evaluate and Treat Diagnosis 1 Cardiomegaly (I51.7) Referral Organization [facility] u[facility]gery Referring Provider First Name Juan Referring Provider Last Name Carlos Referring Provider Specialty Neurologica l Surgery Referred Organization [facility] Referred Provider Jason Johnson Referred Address [address] ,[place], [place],[address] Referred Provider Specialty Cardiac Surg nicholas Referral Priority Routine General Notes HerbLedachepe Cast 021 08:49:37 AM >Received today and waiting for office notes to be lockedLeda Estevezchepe Cast 04/16/2021 03:27:00 PM >[facility] office request us to fax the referral to them and they will review and call patient to schedule their appointment. Referral was fax Reason Evaluate and Treat Diagnosis 1 Cervical disc disord er at C5-C6 level with radiculopathy (M50.122) Referral Organization [facility] u[facility]urgery Referring Provider First Name Juan Referring Provider Last Name Carlos Referring Provider Specialty Neurologica l Surgery Referred Organization Unknown Facility Referred Provider Specialty Physical The rapist Referral Priority Routine Chief Complaint VIDHYA IBARRA is being seen for an annual follow-up of.VIDHYA IBARRA is being seen for an annual follow-up of. Chief Complaint and Reason for Visit Chief Complaint N18.30 E11.22 I12.9 N25.81 K76.89 E89.0 E83.4 Chief Complaint N18.30 E11.22 I12.9 N25.81 K76.89 E89.0 E83.4 Leukocytosis Additional Source Comments INFORMATION SOURCE (unrecogn ized section and content) DATE CREATED AUTHOR [facility]/03/2019 [facility] DATE CREATED AUTHOR AUTHOR'S ORGANIZ ATION 05/26/2021 [facility] DATE CREATED AUTHOR AUTHOR'S ORGANIZ ATION 10/10/2022 [facility] DATE CREATED AUTHOR AUTHOR'S ORGANIZ ATION 12/08/2022 [facility] DATE CREATED AUTHOR AUTHOR'S ORGANIZ ATION 12/09/2022 [facility] DATE CREATED AUTHOR AUTHOR'S ORGANIZ ATION 03/26/2023 [facility] DATE CREATED AUTHOR AUTHOR'S ORGANIZ ATION 04/14/2023 [facility] DATE CREATED AUTHOR AUTHOR'S ORGANIZ ATION 04/17/2023 [facility] REASON FOR VISIT (unrecogniz ed section and content) Refer [facility] f/uCKD and HTNSmoking Cessation Referral Care Teams (unrecognized sec tion and content) Team Status: Active Member Role Status Dates Shaikh Jeison MD Primary Care Provider Active Team Status: Inactive Member Role Status Dates Shaikh Jeison MD Primary Care Provider Active Alta Schmid MD Attending Provider Active Team Status: Active Member Role Status Dates Shaikh Jeison MD Primary Care Provider Active Yakelin Staley APRN Attending Provider Nakul Schmid MD Referring Provider Active Goals (unrecognized section and content) Goals may be documented in a n alternate section FOR RECORDS PERTAINING TO PATIENTS WHO ARE OR HAVE BEEN ENROLLED IN A CHEMICAL DEPENDENCY/SUBSTANCEABUSE PROGRAM, SOME INFORMATION MAY BE OMITTED. This clinical summary was aggregated from multiple sources. Caution should be exercised in using it in the provision of clinical care. This summary normalizes information from multiple sources, and as a consequence, information in this document may materially change the coding, format and clinical context of patient data. In addition, data may be omitted in some cases. CLINICAL DECISIONS SHOULD BE BASED ON THE PRIMARY CLINICAL RECORDS. [employer] provides no warranty or guarantee of the accuracy or completeness of information in this document.
[2023-05-11 09:12] LABS: Glucometer 192 mg/dL (74-106)
[2023-05-11 09:17] VITALS: BP 130/77; PULSE 70; RESP 18; TEMP 36.3; O2SAT 95
[2023-05-11 09:43] VITALS: BP 136/77; PULSE 68; RESP 18; O2SAT 93
[2023-05-11] MEDS: LIDOCAINE HCL 2% PF 100 MG/5 ML VIAL INJ (09:44)
[2023-05-11] MEDS: BUPIVACAINE HCL 0.25% PF 25 MG/10 ML VIAL INJ (09:44)
[2023-05-11 09:45] VITALS: BP 153/70; PULSE 68; RESP 18; O2SAT 96
--- NOTE | 2023-05-11 09:48 | W.PM.PROCNOT ---
Date of procedure: 05/11/23 Pre-op diagnosis: Lumbar spondylosis Post-op diagnosis: same as pre-op Procedure: Procedure: Bilateral L4-5, L5-S1 medial branch block Medications: Bupivacaine 0.25% 6cc The patient was seen and examined in the preoperative holding area.? An informed consent was obtained and placed on the chart.? The patient was brought to the medical procedure unit and placed in the prone position.? A timeout was completed verifying correct patient, procedure site, positioning, plan, and special equipment.? Using aseptic technique, the needle was placed at left L4. Under direct fluoroscopic visualization a Quincke-tipped spinal needle was advanced to the junction of the superior articulating process with the transverse process at the designated medial branch segment.? Preceded by negative aspiration, the above-mentioned injectate was placed in 1 mL aliquots.? The procedure was repeated at left L5, S1.? The needle was removed and insertion site was covered. The same procedure, at the same levels, was completed on the right side. The patient was taken to the postprocedural recovery area and monitored for an appropriate length of time before found suitable for discharge in the company of a responsible adult. Anesthesia: Local Surgeon: Radha Dunaway Pathology: none sent Condition: stable Disposition: no change
== END 2023-05-11 09:52 | disposition home or self-care (01) ==
PROVIDERS: PCP Internal Medicine; Visit Provider Anesthesiology
DX: M47.816 Spondylosis without myelopathy or radiculopathy, lumbar region (principal); E11.9 Type 2 diabetes mellitus without complications
CPT/HCPCS: 36415; 64493; 64494; 82948; J0665

== ENCOUNTER 2023-05-21 08:45 | Outpatient (OUT) | payer MEDICARE, SELFPAY ==
--- OUTSIDE RECORDS SUMMARY | 2023-05-21 08:49 | XMS_ITS | CCD ---
Author Name Unknown Address [address] [place] [address] Organization [facility] Care Team Providers Care Skewer Up Name Role Phone JeisonShaikh Unavailable Unavailable Unavailable Juan Gonzalez Unavailable Unavailable Unavailable NAVEEN ., DR ELIGIO Burns Admitting Unavailable HODGE ., DR ELIGIO Burns Consulting Unavailable HODGE ., DR ELIGIO Burns Attending Unavailable [facility], [facility] Primary Care Unavailable JUAN ANTONIO LOMELI Consulting Unavailable HODGE ., DR ELIGIO Burns Admitting Unavailable [facility], [facility] Primary Care Unavailable ROSEN ., EVA Consulting Unavailable HODGE ., DR ELIGIO Burns Attending Unavailable HODGE ., DR ELIGIO Burns Admitting [facility]available [facility] Primary Care Unavailable ROSEN ., EVA Consulting Unavailable HODGE ., DR ELIGIO Burns Attending Unavailable [facility], [facility] Primary Care Unavailable LAKSHMIPATHY ., NARENDRANATH Admitting Catrina vailable LAKSHMIPATHY ., NARENDSHIRAATH Attending Catrina vailable HODGE ., DR ELIGIO Burns Admitting Unavailable [facility], [facility] Primary Care Unavailable ROSEN ., EVA Consulting Unavailable HODGE ., DR ELIGIO Burns Attending [facility]available [facility] Primary Care Unavailable ROSEN ., EVA Consulting Unavailable HODGE ., DR ELIGIO Burns Attending Unavailable HODGE ., DR ELIGIO Burns Admitting Unavailable ROSEN ., EVA Consulting Unavailable HODGE ., DR ELIGIO Burns Admitting Unavailable NEENA MACK Primary Care Unavailable HODGE ., DR ELIGIO Burns Attending Unavailable [facility], [facility] Primary Care Unavailable [facility], [facility] H Consulting Unavailable [facility] Attending [...] II, Dr. Shashi Salas Attending Unavailable MD Yojana Mchugh Primary Care Provider [phone] MD Alta Schmid Attending Provider Sharmaine, Alta Unavailable MD Yojana Mchugh Primary Care Provider [phone] MD Alta Schmid Attending Provider [phone] JOSE Staley Attending Provider MD Alta Schmid Referring Provider Sharmaine, Alta Admitting Unavailable Sharmaine, Alta Attending Unavailable [facility], [facility] Primary Care Unavailable Sharmaine, Alta Admitting Unavailable Sharmaine, Alta Attending Unavailable [facility], [facility] Primary Care Unavailable Yakelin Staley Attending Unavail able Sharmaine, Alta Referring Unavailable [place], [facility] Primary Care Unavailable Yakelin Staley Admitting Unavail able Neena Hi Unavailable SHAIKH MCHUGH Attending Unavailable Gume PRAJAPATI, Radha Hawkins Attending Unavailable Giwadeitis Radha PRAJAPATI Attending Unavailable Allergies Allergy Classification Reported Allergen(s) Allergy Type Date of Onset Reaction(s) Facility (14 sources) predniSONE; Translations: [predniSONE] Drug Allergy 1 Hives, Unknown [facility] (2 sources) predniSONE Drug Allergy 5 [facility] Repository (1 source) predniSONE Drug Allergy 1 [facility] Repository Medications Current Medications Medication Drug Class(es) [...] Three times daily January 23, 2021 11:00pm November 20th, 2023 2:48pm take 2 tablets by mo [facility] once daily Metoprolol Tartrate 50 MG Oral [...] 11-28-2021 Episodic Other aftercare (1 source) Other longterm (current) drug therapy; Translations: [OTH SKILLED NURSING CURRENT DRUG THERAPY] Onset: 12-04-2021 Episodic Other [...] Basophils (Bld) [#/Vol] 0.1 10*3/uL Normal 0.0-0.2 [facility] Comment on above: Result Comment: PERF ORMED BY: [place] [address] PATHOLOGIST [employer] APPRENTICE SHANTE LOMBARDI M.D. Performed By: #### C BCNO, [id number], PTH, URIC, MG, RENAL, ADDONUAPLUS, CUU, PROCRERAT #### [facility] [address] [place] [address] Basophils/100 WBC (Bld) 0.7 % Normal . [facility] Comment on above: Performed By: #### C BCNO, [id number], PTH, URIC, MG, RENAL, ADDONUAPLUS, CUU, PROCRERAT #### [facility] [address] [place] [address] Eosinophils (Bld) [#/Vol] 0.4 10*3/uL Normal 0.0-0.45 [facility] Comment on above: Performed By: #### C BCNO, [id number], PTH, URIC, MG, RENAL, ADDONUAPLUS, CUU, PROCRERAT #### [address] Eosinophils/100 WBC (Bld) 2.2 % Normal . [facility] Comment on above: Performed By: #### C BCNO, [id number], PTH, URIC, MG, RENAL, ADDONUAPLUS, CUU, PROCRERAT #### [address] Erythrocyte distribution width (RBC) [Ratio] 14.4 % Normal 11.9-15.3 [facility] Comment on above: Performed By: #### C BCNO, [id number], PTH, URIC, MG, RENAL, ADDONUAPLUS, CUU, PROCRERAT #### [address] Hematocrit (Bld) [Volume fraction] 42.6 % Normal 34.0-46.4 [facility] Comment on above: Performed By: #### C BCNO, [id number], PTH, URIC, MG, RENAL, ADDONUAPLUS, CUU, PROCRERAT #### [address] Hemoglobin (Bld) [Mass/Vol] 14.2 g/dL Normal 11.8-15.4 [facility] Comment on above: Performed By: #### C BCNO, [id number], PTH, URIC, MG, RENAL, ADDONUAPLUS, CUU, PROCRERAT #### [address] Lymphocytes (Bld) [#/Vol] 2.9 10*3/uL Normal 1.00-4.8 [facility] Comment on above: Performed By: #### C BCNO, [id number], PTH, URIC, MG, RENAL, ADDONUAPLUS, CUU, PROCRERAT #### [address] Lymphocytes/100 WBC (Bld) 17.3 % Normal . [facility] Comment on above: Performed By: #### C BCNO, [id number], PTH, URIC, MG, RENAL, ADDONUAPLUS, CUU, PROCRERAT #### [address] MCH (RBC) [Entitic mass] 30.2 pg Normal 24.7-34.3 [facility] Comment on above: Performed By: #### C BCNO, [id number], PTH, URIC, MG, RENAL, ADDONUAPLUS, CUU, PROCRERAT #### [address] MCV (RBC) [Entitic vol] 90.7 fL Normal 80-100 F [facility] Comment on above: Performed By: #### C BCNO, [id number], PTH, URIC, MG, RENAL, ADDONUAPLUS, CUU, PROCRERAT #### [address] Mean Corpuscular HGB Conc 33.3 g/dL Normal 32.0-35.0 [facility] Comment on above: Performed By: #### C BCNO, [id number], PTH, URIC, MG, RENAL, ADDONUAPLUS, CUU, PROCRERAT #### [address] Monocytes (Bld) [#/Vol] 1.1 10*3/uL High 0.0-0.8 [facility] Comment on above: Performed By: #### C BCNO, [id number], PTH, URIC, MG, RENAL, ADDONUAPLUS, CUU, PROCRERAT #### [address] Monocytes/100 WBC (Bld) 6.4 % Normal . [facility] Comment on above: Performed By: #### C BCNO, [id number], PTH, URIC, MG, RENAL, ADDONUAPLUS, CUU, PROCRERAT #### [address] Neutrophils (Bld) [#/Vol] 12.2 10*3/uL High 1.8-7.7 [facility] Comment on above: Performed By: #### C BCNO, [id number], PTH, URIC, MG, RENAL, ADDONUAPLUS, CUU, PROCRERAT #### [address] Neutrophils/100 WBC (Bld) 73.4 % Normal . [facility] Comment on above: Performed By: #### C BCNO, [id number], PTH, URIC, MG, RENAL, ADDONUAPLUS, CUU, PROCRERAT #### [address] NRBC% 0.1 /100{WBC} Normal 0-0.5 [facility] Comment on above: Performed By: #### C BCNO, [id number], PTH, URIC, MG, RENAL, ADDONUAPLUS, CUU, PROCRERAT #### [address] Platelet mean volume (Bld) [Entitic vol] 8.5 fL Normal 6.3-10.7 [facility] Comment on above: Performed By: #### C BCNO, [id number], PTH, URIC, MG, RENAL, ADDONUAPLUS, CUU, PROCRERAT #### [address] Platelets (Bld) [#/Vol] 302 10*3/uL Normal 150-450 [facility] Comment on above: Performed By: #### C BCNO, [id number], PTH, URIC, MG, RENAL, ADDONUAPLUS, CUU, PROCRERAT #### [address] RBC (Bld) [#/Vol] 4.70 10*6/uL Normal 3.60-5.00 [facility] Comment on above: Performed By: #### C BCNO, [id number], PTH, URIC, MG, RENAL, ADDONUAPLUS, CUU, PROCRERAT #### [address] [place] [address] [facility] WBC (Bld) [#/Vol] 16.7 10*3/uL High 3.8-11.6 [facility] Comment on above: Performed By: #### C BCNO, [id number], PTH, URIC, MG, RENAL, ADDONUAPLUS, CUU, PROCRERAT #### [facility] [address] [id number] [facility] Albumin [Mass/volume] in Ser um or Plasma by Bromocresol green (BCG) dye binding methoOrdered By: Alta Schmid on 03-04-2023 Albumin BCG dye [Mass/Vol] 4.1 g/dL 3.5-5.7 [facility] Automated erythrocytes count in urine sediment (number/area)Ordered By: Alta Schmid on 03-04-2023 RBC Auto (Urine sed) [#/Area] 0-1 [HPF] 0-4 [facility] Automated leukocytes count i n urine sediment (number/area)Ordered By: Alta Fletcherr on 03-04-2023 WBC Auto (Urine sed) [#/Area] 5-9 [HPF] 0-4 [facility] Bilirubin Test strip Ql (U)O rdered By: Alta Schmid on 03-04-2023 Bilirubin Ql (U) Negative Negative [facility] Calcium [Mass/volume] in Ser um or PlasmaOrdered By: Alta Schmid on 03-04-2023 Calcium [Mass/Vol] 9.2 mg/dL 8.6-10.3 [facility] Carbon dioxide, total [Moles /volume] in Serum or PlasmaOrdered By: Alta Sharmaine on 03-04-2023 CO2 [Moles/Vol] 25.4 mmol/L 21.0-31.0 [facility] Chloride [Moles/volume] in S carlos or PlasmaOrdered By: Alta Sharmaine on 03-04-2023 Chloride [Moles/Vol] 104 mmol/L 98-107 [facility] Color Auto (U)Ordered By: Ab richard Schmid on 03-04-2023 Color (U) Yellow Yellow [facility] Creatinine [Mass/volume] in Serum or PlasmaOrdered By: Alta Schmid on 03-04-2023 Creatinine [Mass/Vol] 1.59 mg/dL 0.60-1.20 [facility] Creatinine [Mass/volume] in UrineOrdered By: Alta Schmid on 03-04-2023 Creatinine (U) [Mass/Vol] 100.0 mg/dL 11.0-20.0 [facility] Dipstick and Microscopicon 1 05-04-2022 Appearance (U) Clear Normal Clear [facility] Comment on above: Order Comment: Reaso n for Exam Chronic kidney disease, stage III (moderate);Diabetes mellit Performed By: #### C BCNO, [id number], PTH, URIC, MG, RENAL, ADDONUAPLUS, CUU, PROCRERAT #### [facility] [address] [place] [address] Bacteria,Urine None Seen Normal None Seen [facility] Comment on above: Order Comment: Reaso n for Exam Chronic kidney disease, stage III (moderate);Diabetes mellit Performed By: #### C BCNO, [id number], PTH, URIC, MG, RENAL, ADDONUAPLUS, CUU, PROCRERAT #### [facility] [address] [place] [address] [place] Bilirubin,Urine Negative Normal Negative [facility] Comment on above: Order Comment: Reaso n for Exam Chronic kidney disease, stage III (moderate);Diabetes mellit Performed By: #### C BCNO, [id number], PTH, URIC, MG, RENAL, ADDONUAPLUS, CUU, PROCRERAT #### [facility] [address] [place] [address] [place] Color (U) Yellow Normal Yellow [facility] Comment on above: Order Comment: Reaso n for Exam Chronic kidney disease, stage III (moderate);Diabetes mellit Performed By: #### C BCNO, [id number], PTH, URIC, MG, RENAL, ADDONUAPLUS, CUU, PROCRERAT #### [facility] [address] [place] [address] [place] Glucose Ql (U) Normal Normal Normal [facility] Comment on above: Order Comment: Reaso n for Exam Chronic kidney disease, stage III (moderate);Diabetes mellit Performed By: #### C BCNO, [id number], PTH, URIC, MG, RENAL, ADDONUAPLUS, CUU, PROCRERAT #### [facility] [address] [place] [address] Hyaline Casts,Urine 0-8 Normal 0-8 [facility] Comment on above: Order Comment: Reaso n for Exam Chronic kidney disease, stage III (moderate);Diabetes mellit Result Comment: PERF ORMED BY: [place] [address] PATHOLOGIST [employer] APPRENTICE SHANTE LOMBARDI M.D. Performed By: #### C BCNO, [id number], PTH, URIC, MG, RENAL, ADDONUAPLUS, CUU, PROCRERAT #### [facility] [address] [place] [address] Ketones Ql (U) Negative Normal Negative [facility] Comment on above: Order Comment: Reaso n for Exam Chronic kidney disease, stage III (moderate);Diabetes mellit Performed By: #### C BCNO, [id number], PTH, URIC, MG, RENAL, ADDONUAPLUS, CUU, PROCRERAT #### [facility] [address] [place] [address] Leukocyte esterase Test strip Ql (U) 1+ High Negative [facility] Comment on above: Order Comment: Reaso n for Exam Chronic kidney disease, stage III (moderate);Diabetes mellit Performed By: #### C BCNO, [id number], PTH, URIC, MG, RENAL, ADDONUAPLUS, CUU, PROCRERAT #### [facility] [address] [place] [address] Nitrite,Urine Negative Normal Negative [facility] Comment on above: Order Comment: Reaso n for Exam Chronic kidney disease, stage III (moderate);Diabetes mellit Performed By: #### C BCNO, [id number], PTH, URIC, MG, RENAL, ADDONUAPLUS, CUU, PROCRERAT #### [facility] [address] Occult Blood,Urine Negative Normal Negative [facility] Comment on above: Order Comment: Reaso n for Exam Chronic kidney disease, stage III (moderate);Diabetes mellit Performed By: #### C BCNO, [id number], PTH, URIC, MG, RENAL, ADDONUAPLUS, CUU, PROCRERAT #### [address] pH (U) 5.5 [pH] Normal 5.0-9.0 [facility] Comment on above: Order Comment: Reaso n for Exam Chronic kidney disease, stage III (moderate);Diabetes mellit Performed By: #### C BCNO, [id number], PTH, URIC, MG, RENAL, ADDONUAPLUS, CUU, PROCRERAT #### [address] Protein,Urine Negative Normal Negative [facility] Comment on above: Order Comment: Reaso n for Exam Chronic kidney disease, stage III (moderate);Diabetes mellit Performed By: #### C BCNO, [id number], PTH, URIC, MG, RENAL, ADDONUAPLUS, CUU, PROCRERAT #### [address] RBC LM.HPF (Urine sed) [#/Area] 0 /[HPF] Normal 0-4 [facility] Comment on above: Order Comment: Reaso n for Exam Chronic kidney disease, stage III (moderate);Diabetes mellit Performed By: #### C BCNO, [id number], PTH, URIC, MG, RENAL, ADDONUAPLUS, CUU, PROCRERAT #### [address] Specificy [place],Urine 1.014 Normal 1.001-1.030 [facility] Comment on above: Order Comment: Reaso n for Exam Chronic kidney disease, stage III (moderate);Diabetes mellit Performed By: #### C BCNO, [id number], PTH, URIC, MG, RENAL, ADDONUAPLUS, CUU, PROCRERAT #### [facility] [address] Squamous Epithelial Cell,Urine 5-9 High 0-2 [facility] Comment on above: Order Comment: Reaso n for Exam Chronic kidney disease, stage III (moderate);Diabetes mellit Performed By: #### C BCNO, [id number], PTH, URIC, MG, RENAL, ADDONUAPLUS, CUU, PROCRERAT #### [facility] [address] Urobilinogen,Urine Normal Normal Normal [facility] Comment on above: Order Comment: Reaso n for Exam Chronic kidney disease, stage III (moderate);Diabetes mellit Performed By: #### C BCNO, [id number], PTH, URIC, MG, RENAL, ADDONUAPLUS, CUU, PROCRERAT #### [facility] [address] WBC,Urine 5-9 High 0-4 [facility] Comment on above: Order Comment: Reaso n for Exam Chronic kidney disease, stage III (moderate);Diabetes mellit Performed By: #### C BCNO, [id number], PTH, URIC, MG, RENAL, ADDONUAPLUS, CUU, PROCRERAT #### [facility] [address] Erythrocyte distribution wid th Auto (RBC) [Ratio]Ordered By: Alta Schmid on 03-04-2023 Erythrocyte distribution width (RBC) [Ratio] 14.8 % 11.9-15.3 [facility] Glucose [Mass/volume] in Ser um or PlasmaOrdered By: Alta Schmid on 03-04-2023 Glucose [Mass/Vol] 232 mg/dL 70-100 [facility] Comment on above: ADA recommended refe rence rangeRandom Glucose Reference Range is dependent on time and content of last meal. Glucose of more than 200 mg/dL in a nonstressed, ambulatory subject supports the diagnosis of Diabetes Mellitus. Hematocrit Auto (Bld) [Volum e fraction]Ordered By: Alta Schmid on 11-01-2023 Hematocrit (Bld) [Volume fraction] 42.6 % 34.0-46.4 [facility] Hemoglobin [Mass/volume] in BloodOrdered By: Alta Schmid on 03-04-2023 Hemoglobin (Bld) [Mass/Vol] 14.5 g/dL 11.8-15.4 [facility] Hemogram CBC Without Diffon 03-04-2023 Erythrocyte distribution width (RBC) [Ratio] 14.8 % Normal 11.9-15.3 [facility] Comment on above: Order Comment: Reaso n for Exam Chronic kidney disease, stage III (moderate);Diabetes mellit Performed By: #### C BCNO, [id number], PTH, URIC, MG, RENAL, ADDONUAPLUS, CUU, PROCRERAT #### [facility] [address] [place] [address] Hematocrit (Bld) [Volume fraction] 42.6 % Normal 34.0-46.4 [facility] Comment on above: Order Comment: Reaso n for Exam Chronic kidney disease, stage III (moderate);Diabetes mellit Performed By: #### C BCNO, [id number], PTH, URIC, MG, RENAL, ADDONUAPLUS, CUU, PROCRERAT #### [facility] [address] [place] [address] Hemoglobin (Bld) [Mass/Vol] 14.5 g/dL Normal 11.8-15.4 [facility] Comment on above: Order Comment: Reaso n for Exam Chronic kidney disease, stage III (moderate);Diabetes mellit Performed By: #### C BCNO, [id number], PTH, URIC, MG, RENAL, ADDONUAPLUS, CUU, PROCRERAT #### [facility] [address] [place] [address] MCH (RBC) [Entitic mass] 31.1 pg Normal 24.7-34.3 [facility] Comment on above: Order Comment: Reaso n for Exam Chronic kidney disease, stage III (moderate);Diabetes mellit Performed By: #### C BCNO, [id number], PTH, URIC, MG, RENAL, ADDONUAPLUS, CUU, PROCRERAT #### [address] MCV (RBC) [Entitic vol] 91.6 fL Normal 80-100 F [facility] Comment on above: Order Comment: Reaso n for Exam Chronic kidney disease, stage III (moderate);Diabetes mellit Performed By: #### C BCNO, [id number], PTH, URIC, MG, RENAL, ADDONUAPLUS, CUU, PROCRERAT #### [address] Mean Corpuscular HGB Conc 34.0 g/dL Normal 32.0-35.0 [facility] Comment on above: Order Comment: Reaso n for Exam Chronic kidney disease, stage III (moderate);Diabetes mellit Performed By: #### C BCNO, [id number], PTH, URIC, MG, RENAL, ADDONUAPLUS, CUU, PROCRERAT #### [address] Platelet mean volume (Bld) [Entitic vol] 8.5 fL Normal 6.3-10.7 [facility] Comment on above: Order Comment: Reaso n for Exam Chronic kidney disease, stage III (moderate);Diabetes mellit Result Comment: PERF ORMED BY: [place] [address] PATHOLOGIST [employer] APPRENTICE SHANTE LOMBARDI M.D. Performed By: #### C BCNO, [id number], PTH, URIC, MG, RENAL, ADDONUAPLUS, CUU, PROCRERAT #### [address] Platelets (Bld) [#/Vol] 327 10*3/uL Normal 150-450 [facility] Comment on above: Order Comment: Reaso n for Exam Chronic kidney disease, stage III (moderate);Diabetes mellit Performed By: #### C BCNO, [id number], PTH, URIC, MG, RENAL, ADDONUAPLUS, CUU, PROCRERAT #### [address] RBC (Bld) [#/Vol] 4.65 10*6/uL Normal 3.60-5.00 [facility] Comment on above: Order Comment: Reaso n for Exam Chronic kidney disease, stage III (moderate);Diabetes mellit Performed By: #### C BCNO, [id number], PTH, URIC, MG, RENAL, ADDONUAPLUS, CUU, PROCRERAT #### [facility] [address] WBC (Bld) [#/Vol] 16.2 10*3/uL High 3.8-11.6 [facility] Comment on above: Order Comment: Reaso n for Exam Chronic kidney disease, stage III (moderate);Diabetes mellit Performed By: #### C BCNO, [id number], PTH, URIC, MG, RENAL, ADDONUAPLUS, CUU, PROCRERAT #### [facility] [address] Ketones Auto test strip (U) [Mass/Vol]Ordered By: Alta Schmid on 03-04-2023 Ketones (U) [Mass/Vol] Negative Negative [facility] - UrinalysisOrder ed By: Alta Schmid on 03-04-2023 Hyaline casts LM Ql (Urine sed) 0-8 [LPF] 0-8 [facility] Leukocytes [#/volume] correc janet for nucleated erythrocytes in Blood by Automated counOrdered By: Alta Schmid on 03-04-2023 WBC corrected for nucl RBC Auto (Bld) [#/Vol] 16.2 10*3/uL 3.8-11.6 [facility] MCH Auto (RBC) [Entitic mass ]Ordered By: Alta Schmid on 03-04-2023 MCH (RBC) [Entitic mass] 31.1 pg 24.7-34.3 [facility] MCHC Auto (RBC) [Mass/Vol]Or dered By: Alta Schmid on 03-04-2023 MCHC (RBC) [Mass/Vol] 34.0 g/dL 32.0-35.0 [facility] MCV Auto (RBC) [Entitic vol] Ordered By: Alta Schmid on 03-04-2023 MCV (RBC) [Entitic vol] 91.6 fL 80-100 [facility] Magnesiumon 03-04-2023 Magnesium [Mass/Vol] 1.4 mg/dL Low 1.9-2.7 [facility] Comment on above: Order Comment: Reaso n for Exam Chronic kidney disease, stage III (moderate);Diabetes mellit Performed By: #### C BCNO, [id number], PTH, URIC, MG, RENAL, ADDONUAPLUS, CUU, PROCRERAT #### [facility] [address] [place] [address] [place] Magnesium [Mass/volume] in S carlos or PlasmaOrdered By: Alta Schmid on 03-04-2023 Magnesium [Mass/Vol] 1.4 mg/dL 1.9-2.7 [facility] Nitrite Test strip Ql (U)Ord ered By: Alta Schmid on 03-04-2023 Nitrite Ql (U) Negative Negative [facility] No Panel InformationOrdered By: Alta Schmid on 03-04-2023 Estimated GFR (CKD-EPI) 35.395 mL/Min [facility] Creatinine Clearance (Chem N/A [facility] Parathyrin.intact [Mass/volu me] in Serum or PlasmaOrdered By: Alta Schmid on 03-04-2023 Parathyrin.intact [Mass/Vol] 87.0 pg/mL [facility] Parathyroid Hormone Intacton 03-04-2023 Parathyroid Hormone Intact 87.0 pg/mL Normal [facility] Comment on above: Order Comment: Reaso n for Exam Chronic kidney disease, stage III (moderate);Diabetes mellit Result Comment: PERF ORMED BY: [address] [address] PATHOLOGIST [employer] APPRENTICE SHANTE LOMBARDI M.D. Performed By: #### C BCNO, [id number], PTH, URIC, MG, RENAL, ADDONUAPLUS, CUU, PROCRERAT #### [facility] [address] [place] [address] [place] Phosphate [Mass/volume] in S carlos or PlasmaOrdered By: Alta Schmid on 03-04-2023 Phosphate [Mass/Vol] 4.0 mg/dL 3.7-7.2 [facility] Platelet mean volume Auto (B ld) [Entitic vol]Ordered By: Alta Schmid on 03-04-2023 Platelet mean volume (Bld) [Entitic vol] 8.5 fL 6.3-10.7 [facility] Platelets Auto (Bld) [#/Vol] Ordered By: Alta Schmid on 03-04-2023 Platelets (Bld) [#/Vol] 327 10*3/uL 150-450 [facility] Potassium [Moles/volume] in Serum or PlasmaOrdered By: Alta Schmid on 03-04-2023 Potassium [Moles/Vol] 4.9 mmol/L 3.5-5.1 [facility] Protein Auto test strip (U) [Mass/Vol]Ordered By: Alta Schmid on 03-04-2023 Protein (U) [Mass/Vol] Negative Negative [facility] Protein Creat Ratio Ur Rando mon 03-04-2023 Creatinine, Urine (Random) 100.0 mg/dL High 11.0-20.0 [facility] Comment on above: Order Comment: Reaso n for Exam Chronic kidney disease, stage III (moderate);Diabetes mellit Performed By: #### P ROCRERAT #### [facility] [address] [place] [address] [place] Protein (U) [Mass/Vol] 14 mg/dL High 0-9 [facility] Comment on above: Order Comment: Reaso n for Exam Chronic kidney disease, stage III (moderate);Diabetes mellit Performed By: #### P ROCRERAT #### [facility] [address] [id number] [facility] Urine Protein/Creatinine Ratio 140 mg/g{Cre} Normal 0-200 [facility] Comment on above: Order Comment: Reaso n for Exam Chronic kidney disease, stage III (moderate);Diabetes mellit Result Comment: PERF ORMED BY: [facility] [address] PATHOLOGIST [employer] APPRENTICE SHANTE LOMBARDI M.D. Performed By: #### P ROCRERAT #### [address] Protein [Mass/volume] in Uri neOrdered By: Alta Sharmaine on 03-04-2023 Protein (U) [Mass/Vol] 14 mg/dL 0-9 [facility] RBC Auto (Bld) [#/Vol]Ordere d By: Alta Sharmaine on 03-04-2023 RBC (Bld) [#/Vol] 4.65 10*6/uL 3.60-5.00 [facility] Renal Function Panelon 03-04 Albumin [Mass/Vol] 4.1 g/dL Normal 3.5-5.7 [facility] Comment on above: Order Comment: Reaso n for Exam Chronic kidney disease, stage III (moderate);Diabetes mellit Performed By: #### C BCNO, [id number], PTH, URIC, MG, RENAL, ADDONUAPLUS, CUU, PROCRERAT #### [address] Anion gap [Moles/Vol] 13.5 mmol/L Normal 6.0-15.0 [facility] Comment on above: Order Comment: Reaso n for Exam Chronic kidney disease, stage III (moderate);Diabetes mellit Performed By: #### C BCNO, [id number], PTH, URIC, MG, RENAL, ADDONUAPLUS, CUU, PROCRERAT #### [facility] [address] [place] [address] [place] Calcium [Mass/Vol] 9.2 mg/dL Normal 8.6-10.3 [facility] Comment on above: Order Comment: Reaso n for Exam Chronic kidney disease, stage III (moderate);Diabetes mellit Performed By: #### C BCNO, [id number], PTH, URIC, MG, RENAL, ADDONUAPLUS, CUU, PROCRERAT #### [address] [address] [facility] Chloride [Moles/Vol] 104 mmol/L Normal 98-107 [facility] Comment on above: Order Comment: Reaso n for Exam Chronic kidney disease, stage III (moderate);Diabetes mellit Performed By: #### C BCNO, [id number], PTH, URIC, MG, RENAL, ADDONUAPLUS, CUU, PROCRERAT #### [facility] [address] [place] [id number] [facility] CO2 [Moles/Vol] 25.4 mmol/L Normal 21.0-31.0 [facility] Comment on above: Order Comment: Reaso n for Exam Chronic kidney disease, stage III (moderate);Diabetes mellit Performed By: #### C BCNO, [id number], PTH, URIC, MG, RENAL, ADDONUAPLUS, CUU, PROCRERAT #### [facility] [address] Creatinine [Mass/Vol] 1.59 mg/dL High 0.60-1.20 [facility] Comment on above: Order Comment: Reaso n for Exam Chronic kidney disease, stage III (moderate);Diabetes mellit Performed By: #### C BCNO, [id number], PTH, URIC, MG, RENAL, ADDONUAPLUS, CUU, PROCRERAT #### [facility] [address] [place] [address] [place] GFR/1.73 sq M.predicted MDRD (S/P/Bld) [Vol rate/Area] 35.395 mL/min/{1.73_m2} [facility] Comment on above: Order Comment: Reaso n for Exam Chronic kidney disease, stage III (moderate);Diabetes mellit Performed By: #### C BCNO, [id number], PTH, URIC, MG, RENAL, ADDONUAPLUS, CUU, PROCRERAT #### [facility] [address] [place] [id number] [place] Glucose [Mass/Vol] 232 mg/dL High 70-100 [facility] Comment on above: Order Comment: Reaso n for Exam Chronic kidney disease, stage III (moderate);Diabetes mellit Result Comment: Kay hopper Glucose Reference Range is dependent on time and content of last meal. Glucose of more than 200 mg/dL in a nonstressed, ambulatory subject supports the diagnosis of Diabetes Mellitus. ADA recommended reference range Performed By: #### C BCNO, [id number], PTH, URIC, MG, RENAL, ADDONUAPLUS, CUU, PROCRERAT #### [facility] [address] Phosphate [Mass/Vol] 4.0 mg/dL Normal 3.7-7.2 [facility] Comment on above: Order Comment: Reaso n for Exam Chronic kidney disease, stage III (moderate);Diabetes mellit Performed By: #### C BCNO, [id number], PTH, URIC, MG, RENAL, ADDONUAPLUS, CUU, PROCRERAT #### [facility] [address] [place] [address] Potassium [Moles/Vol] 4.9 mmol/L Normal 3.5-5.1 [facility] Comment on above: Order Comment: Reaso n for Exam Chronic kidney disease, stage III (moderate);Diabetes mellit Performed By: #### C BCNO, [id number], PTH, URIC, MG, RENAL, ADDONUAPLUS, CUU, PROCRERAT #### [facility] [address] [place], [place] [id number] [facility] Sodium [Moles/Vol] 138 mmol/L Normal 136-145 [facility] Comment on above: Order Comment: Reaso n for Exam Chronic kidney disease, stage III (moderate);Diabetes mellit Performed By: #### C BCNO, [id number], PTH, URIC, MG, RENAL, ADDONUAPLUS, CUU, PROCRERAT #### [facility] [address] [place] [id number] [place] Urea nitrogen [Mass/Vol] 42 mg/dL High 7-25 [facility] Comment on above: Order Comment: Reaso n for Exam Chronic kidney disease, stage III (moderate);Diabetes mellit Performed By: #### C BCNO, [id number], PTH, URIC, MG, RENAL, ADDONUAPLUS, CUU, PROCRERAT #### [facility] [address] Serum or plasma anion gap de terminationOrdered By: Alta Fletcherr on 03-04-2023 Anion gap [Moles/Vol] 13.5 mmol/L 6.0-15.0 [facility] Sodium [Moles/volume] in Ser um or PlasmaOrdered By: Alta Sharmaine on 03-04-2023 Sodium [Moles/Vol] 138 mmol/L 136-145 [facility] Specific gravity Auto test s trip (U) [Rel density]Ordered By: Alta Fletcherr on 03-04-2023 Specific gravity (U) [Rel density] 1.014 1.001-1.030 [facility] Squamous epithelial cells de tection in urine sediment by light microscopyOrdered By: Alta Schmid on 03-04-2023 Epithelial cells.squamous LM Ql (Urine sed) 5-9 [HPF] 0-2 [facility] Urate [Mass/volume] in Serum or PlasmaOrdered By: Alta Schmid on 03-04-2023 Urate [Mass/Vol] 10.7 mg/dL 2.3-6.6 [facility] Urea nitrogen [Mass/volume] in Serum or PlasmaOrdered By: Alta Schmid on 03-04-2023 Urea nitrogen [Mass/Vol] 42 mg/dL 7-25 [facility] Uric Acidon 03-04-2023 Urate [Mass/Vol] 10.7 mg/dL High 2.3-6.6 [facility] Comment on above: Order Comment: Reaso n for Exam Chronic kidney disease, stage III (moderate);Diabetes mellit Performed By: #### C BCNO, [id number], PTH, URIC, MG, RENAL, ADDONUACATALINA OZUNAU, PROCRERAT #### [facility] [address] Urine Cultureon 03-04-2023 Bacteria identified Cx Nom (U) 75,000 colonies/ml mixed bacterial skin contaminants 2 Days PERFORMED BY: [facility] [address] [place] [address] PATHOLOGIST [employer]ICE SHANTE LOMBARDI M.D. Normal [facility] Comment on above: Performed By: #### C BCNO, [id number], PTH, URIC, MG, RENAL, ADDONUAPLUS, CUU, PROCRERAT #### [facility] [address] Urine bacteria detection by automated methodOrdered By: Alta Schmid on 03-04-2023 Bacteria Auto Ql (U) None seen None Seen [facility] Urine clarity by refractomet ry automatedOrdered By: Alta Schmid on 03-04-2023 Clarity Refractometry automated (U) Clear Clear [facility] Urine culture routineOrdered By: Alta Schmid on 03-04-2023 Bacteria identified Cx Nom (U) 2 Days [facility] Urine glucose measurement by automated test strip (mass/volume)Ordered By: Alta Schmid on 03-04-2023 Glucose Auto test strip (U) [Mass/Vol] Normal mg/dL Normal [facility] Urine hemoglobin detection b y automated test stripOrdered By: Alta Schmid on 03-04-2023 Hemoglobin Auto test strip Ql (U) Negative Negative [facility] Urine leukocyte esterase det ection by automated test stripOrdered By: Alta Schmid on 03-04-2023 Leukocyte esterase Auto test strip Ql (U) 1+ Negative [facility] Urine protein/creatinine rat ioOrdered By: Alta Schmid on 03-04-2023 Protein/Creatinine (U) [Ratio] 140 mg/g{Cre} 0-200 [facility] Urobilinogen Auto test strip (U) [Mass/Vol]Ordered By: Alta Schmid on 03-04-2023 Urobilinogen (U) [Mass/Vol] Normal mg/dL Normal [facility] Vitamin D 25 Hydroxy Totalon 03-04-2023 Vitamin D 25 Hydroxy Total 41.9 ng/mL Normal 30-100 [facility] Comment on above: Order Comment: Reaso n for Exam Chronic kidney disease, stage III (moderate);Diabetes mellit Result Comment: DEBORAH MIN D STATUS 25(OH)VITAMIN D RANGE (ng/mL) Deficient <20 Insufficient 20 to <30 Sufficient 30 to 100 Reference: Isai Rich, Randa WALSH, et al. Evaluation,treatment, and prevention of vitamin D deficiency; an Endocrine Society clinical practice guideline. JCEM. 2010; 96(7):191-. PERFORMED BY: [facility] [address] [place] [id number] PATHOLOGIST [employer] APPRENTICE SHANTE LOMBARDI M.D. Performed By: #### C BCNO, [id number], PTH, URIC, MG, RENAL, ADDONUAPLUS, CUU, PROCRERAT #### [facility] [address] Vitamin D+Metabolites [Mass/ volume] in Serum or PlasmaOrdered By: Alta Schmid on 03-04-2023 Vitamin D+Metabolites [Mass/Vol] 41.9 ng/mL 30-100 [facility] Comment on above: VITAMIN D STATUS 25( [place])VITAMIN D RANGE (ng/mL) Deficient <20 Insufficient 20 to <30Sufficient 30 to 100Reference: Isai Rich, Randa WALSH, et al. Evaluation,treatment, and prevention of vitamin D deficiency; an Endocrine Society clinical practice guideline. JCEM. 2010; 96(7):191-. pH Auto test strip (U)Ordere d By: Alta Schmid on 03-04-2023 pH (U) 5.5 [pH] 5.0-9.0 [facility] Office Visit (Cardiology)on 12-08-2022 Follow-up visit Diagnoses/Problems Assessed Hypertension (401.9) (I10) Current smoker (305.1) (F17.200) 1/2 pack daily. Diabetes (250.00) (E11.9) Class 1 obesity with body mass index (BMI) of 32.0 to 32.9 in adult (278.00,V85.32) (E66.9,Z68.32) Orders Class 1 obesity with body mass index (BMI) of 32.0 to 32.9 in adult Healthy Weight Tips; Status:Complete; Done: [id number] Some eating tips that can help you lose weight.; Status:Complete; Done: [id number] SocHx: Current smoker Tobacco Use Screening; Status:Complete; Done: [id number] You need to stop smoking. Though it is not easy, more than half of all adult smokers have quit. We encourage you to write down all the reasons you should quit smoking and set a quit date for yourself. Ask us how we can help. You may also call [phone]-NOW for free resources and assistance.; Status:Complete; Done: [id number] Patient Instructions Please bring all medicines, vitamins, [...] Recorded: 08Dec2022 08:41AM Heart Rate66, R Radial Frsahwzr611, RUE, Sitting Msaxhemmn75, RUE, Sitting Height5 ft 3 in Fprtsu405 lb BMI Ckczpfpmte25.95 kg/m2 BSA Calculated1.88 Tobacco Usea) Yes Patient [...] JVP w (more content not included)... Normal WebNotes Tobacco Screening.on 023 Fall risk assessment a) No falls within the last year -[facility] DO Work Phone: Tobacco use status CP a) Yes M -[facility] 250 DO Work Phone: Tobacco Screening. Yes -[facility] 250 DO Work Phone: Dipstick and Microscopicon 0 09-18-2022 Appearance (U) Cloudy Critically abnormal Clear [facility] Comment on above: Order Comment: Reaso n for Exam Chronic kidney disease, stage III (moderate);Diabetes mellit Name Collection Type:: Clean-Voided Midstream Performed By: #### C BCNO, [id number], PTH, URIC, MG, RENAL, ADDONUAPLUS, CUU, PROCRERAT #### [facility] [address] [place] [id number] [place] Bacteria,Urine 4+ High None Seen [facility] Comment on above: Order Comment: Reaso n for Exam Chronic kidney disease, stage III (moderate);Diabetes mellit Name Collection Type:: Clean-Voided Midstream Performed By: #### C BCNO, [id number], PTH, URIC, MG, RENAL, ADDONUAPLUS, CUU, PROCRERAT #### [facility] [address] [place] [address] [place] Bilirubin,Urine Negative Normal Negative [facility] Comment on above: Order Comment: Reaso n for Exam Chronic kidney disease, stage III (moderate);Diabetes mellit Name Collection Type:: Clean-Voided Midstream Performed By: #### C BCNO, [id number], PTH, URIC, MG, RENAL, ADDONUAPLUS, CUU, PROCRERAT #### [facility] [address] [place] [address] [place] Color (U) Yellow Normal Yellow [facility] Comment on above: Order Comment: Reaso n for Exam Chronic kidney disease, stage III (moderate);Diabetes mellit Name Collection Type:: Clean-Voided Midstream Performed By: #### C BCNO, [id number], PTH, URIC, MG, RENAL, ADDONUAPLUS, CUU, PROCRERAT #### [facility] [address] [place] [address] Glucose Ql (U) Normal Normal Normal [facility] Comment on above: Order Comment: Reaso n for Exam Chronic kidney disease, stage III (moderate);Diabetes mellit Name Collection Type:: Clean-Voided Midstream Performed By: #### C BCNO, [id number], PTH, URIC, MG, RENAL, ADDONUAPLUS, CUU, PROCRERAT #### [address] Hyaline Casts,Urine 9-19 High 0-8 [facility] Comment on above: Order Comment: Reaso n for Exam Chronic kidney disease, stage III (moderate);Diabetes mellit Name Collection Type:: Clean-Voided Midstream Result Comment: PERF ORMED BY: [place] [address] PATHOLOGIST [employer] AP[employer]ENTICE SHANTE LOMBARDI M.D. Performed By: #### C BCNO, [id number], PTH, URIC, MG, RENAL, ADDONUAPLUS, CUU, PROCRERAT #### [address] Ketones Ql (U) Negative Normal Negative [facility] Comment on above: Order Comment: Reaso n for Exam Chronic kidney disease, stage III (moderate);Diabetes mellit Name Collection Type:: Clean-Voided Midstream Performed By: #### C BCNO, [id number], PTH, URIC, MG, RENAL, ADDONUAPLUS, CUU, PROCRERAT #### [address] Leukocyte esterase Test strip Ql (U) 3+ High Negative [facility] Comment on above: Order Comment: Reaso n for Exam Chronic kidney disease, stage III (moderate);Diabetes mellit Name Collection Type:: Clean-Voided Midstream Performed By: #### C BCNO, [id number], PTH, URIC, MG, RENAL, ADDONUAPLUS, CUU, PROCRERAT #### [address] [address] [place] Nitrite,Urine Positive High Negative [facility] Comment on above: Order Comment: Reaso n for Exam Chronic kidney disease, stage III (moderate);Diabetes mellit Name Collection Type:: Clean-Voided Midstream Performed By: #### C BCNO, [id number], PTH, URIC, MG, RENAL, ADDONUAPLUS, CUU, PROCRERAT #### [facility] [address] [place] [address] Occult Blood,Urine Negative Normal Negative [facility] Comment on above: Order Comment: Reaso n for Exam Chronic kidney disease, stage III (moderate);Diabetes mellit Name Collection Type:: Clean-Voided Midstream Performed By: #### C BCNO, [id number], PTH, URIC, MG, RENAL, ADDONUAPLUS, CUU, PROCRERAT #### [facility] [address] [place] [address] pH (U) 6.0 [pH] Normal 5.0-9.0 [facility] Comment on above: Order Comment: Reaso n for Exam Chronic kidney disease, stage III (moderate);Diabetes mellit Name Collection Type:: Clean-Voided Midstream Performed By: #### C BCNO, [id number], PTH, URIC, MG, RENAL, ADDONUAPLUS, CUU, PROCRERAT #### [facility] [address] [place] [address] Protein,Urine Negative Normal Negative [facility] Comment on above: Order Comment: Reaso n for Exam Chronic kidney disease, stage III (moderate);Diabetes mellit Name Collection Type:: Clean-Voided Midstream Performed By: #### C BCNO, [id number], PTH, URIC, MG, RENAL, ADDONUAPLUS, CUU, PROCRERAT #### [facility] [address] [place] [address] [place] RBC,Urine None Seen Normal 0-4 [facility] Comment on above: Order Comment: Reaso n for Exam Chronic kidney disease, stage III (moderate);Diabetes mellit Name Collection Type:: Clean-Voided Midstream Performed By: #### C BCNO, [id number], PTH, URIC, MG, RENAL, ADDONUAPLUS, CUU, PROCRERAT #### [address] Specificy [place],Urine 1.013 Normal 1.001-1.030 [facility] Comment on above: Order Comment: Reaso n for Exam Chronic kidney disease, stage III (moderate);Diabetes mellit Name Collection Type:: Clean-Voided Midstream Performed By: #### C BCNO, [id number], PTH, URIC, MG, RENAL, ADDONUAPLUS, CUU, PROCRERAT #### [address] Squamous Epithelial Cell,Urine 1-2 Normal 0-2 [facility] Comment on above: Order Comment: Reaso n for Exam Chronic kidney disease, stage III (moderate);Diabetes mellit Name Collection Type:: Clean-Voided Midstream Performed By: #### C BCNO, [id number], PTH, URIC, MG, RENAL, ADDONUAPLUS, CUU, PROCRERAT #### [address] Urobilinogen,Urine Normal Normal Normal [facility] Comment on above: Order Comment: Reaso n for Exam Chronic kidney disease, stage III (moderate);Diabetes mellit Name Collection Type:: Clean-Voided Midstream Performed By: #### C BCNO, [id number], PTH, URIC, MG, RENAL, ADDONUAPLUS, CUU, PROCRERAT #### [address] WBC,Urine 50-100 High 0-4 [facility] Comment on above: Order Comment: Reaso n for Exam Chronic kidney disease, stage III (moderate);Diabetes mellit Name Collection Type:: Clean-Voided Midstream Performed By: #### C BCNO, [id number], PTH, URIC, MG, RENAL, ADDONUAPLUS, CUU, PROCRERAT #### [address] Hemogram CBC Without Diffon 09-18-2022 Erythrocyte distribution width (RBC) [Ratio] 15.4 % High 11.9-15.3 [facility] Comment on above: Order Comment: Reaso n for Exam Chronic kidney disease, stage III (moderate);Diabetes mellit Performed By: #### C BCNO, [id number], PTH, URIC, MG, RENAL, ADDONUAPLUS, CUU, PROCRERAT #### [facility] [address] [place] [address] Hematocrit (Bld) [Volume fraction] 41.9 % Normal 34.0-46.4 [facility] Comment on above: Order Comment: Reaso n for Exam Chronic kidney disease, stage III (moderate);Diabetes mellit Performed By: #### C BCNO, [id number], PTH, URIC, MG, RENAL, ADDONUAPLUS, CUU, PROCRERAT #### [address] Hemoglobin (Bld) [Mass/Vol] 14.2 g/dL Normal 11.8-15.4 [facility] Comment on above: Order Comment: Reaso n for Exam Chronic kidney disease, stage III (moderate);Diabetes mellit Performed By: #### C BCNO, [id number], PTH, URIC, MG, RENAL, ADDONUAPLUS, CUU, PROCRERAT #### [address] MCH (RBC) [Entitic mass] 30.8 pg Normal 24.7-34.3 [facility] Comment on above: Order Comment: Reaso n for Exam Chronic kidney disease, stage III (moderate);Diabetes mellit Performed By: #### C BCNO, [id number], PTH, URIC, MG, RENAL, ADDONUAPLUS, CUU, PROCRERAT #### [facility] [address] [place] [address] MCV (RBC) [Entitic vol] 90.9 fL Normal 80-100 F [facility] Comment on above: Order Comment: Reaso n for Exam Chronic kidney disease, stage III (moderate);Diabetes mellit Performed By: #### C BCNO, [id number], PTH, URIC, MG, RENAL, ADDONUAPLUS, CUU, PROCRERAT #### [facility] [address] Mean Corpuscular HGB Conc 33.9 g/dL Normal 32.0-35.0 [facility] Comment on above: Order Comment: Reaso n for Exam Chronic kidney disease, stage III (moderate);Diabetes mellit Performed By: #### C BCNO, [id number], PTH, URIC, MG, RENAL, ADDONUAPLUS, CUU, PROCRERAT #### [facility] [address] Platelet mean volume (Bld) [Entitic vol] 8.6 fL Normal 6.3-10.7 [facility] Comment on above: Order Comment: Reaso n for Exam Chronic kidney disease, stage III (moderate);Diabetes mellit Result Comment: PERF ORMED BY: [place] [address] PATHOLOGIST [employer] APPRENTICE SHANTE LOMBARDI M.D. Performed By: #### C BCNO, [id number], PTH, URIC, MG, RENAL, ADDONUAPLUS, CUU, PROCRERAT #### [address] Platelets (Bld) [#/Vol] 272 10*3/uL Normal 150-450 [facility] Comment on above: Order Comment: Reaso n for Exam Chronic kidney disease, stage III (moderate);Diabetes mellit Performed By: #### C BCNO, [id number], PTH, URIC, MG, RENAL, ADDONUAPLUS, CUU, PROCRERAT #### [facility] [address] RBC (Bld) [#/Vol] 4.61 10*6/uL Normal 3.60-5.00 [facility] Comment on above: Order Comment: Reaso n for Exam Chronic kidney disease, stage III (moderate);Diabetes mellit Performed By: #### C BCNO, [id number], PTH, URIC, MG, RENAL, ADDONUAPLUS, CUU, PROCRERAT #### [facility] [address] WBC (Bld) [#/Vol] 14.0 10*3/uL High 3.8-11.6 [facility] Comment on above: Order Comment: Reaso n for Exam Chronic kidney disease, stage III (moderate);Diabetes mellit Performed By: #### C BCNO, [id number], PTH, URIC, MG, RENAL, ADDONUAPLUS, CUU, PROCRERAT #### [facility] [address] Magnesiumon 09-18-2022 Magnesium [Mass/Vol] 1.9 mg/dL Normal 1.9-2.7 [facility] Comment on above: Order Comment: Reaso n for Exam Chronic kidney disease, stage III (moderate);Diabetes mellit Performed By: #### C BCNO, [id number], PTH, URIC, MG, RENAL, ADDONUAPLUS, CUU, PROCRERAT #### [address] Parathyroid Hormone Intacton 09-18-2022 Parathyroid Hormone Intact 33.9 pg/mL Normal 12-88 [facility] Comment on above: Order Comment: Reaso n for Exam Chronic kidney disease, stage III (moderate);Diabetes mellit Result Comment: PERF ORMED BY: [place] [address] PATHOLOGIST [employer] APPRENTICE SHANTE LOMBARDI M.D. Performed By: #### C BCNO, [id number], PTH, URIC, MG, RENAL, ADDONUAPLUS, CUU, PROCRERAT #### [address] Protein Creat Ratio Ur Rando mon 09-18-2022 Creatinine, Urine (Random) 101.0 mg/dL High 11.0-20.0 [facility] Comment on above: Order Comment: Reaso n for Exam Chronic kidney disease, stage III (moderate);Diabetes mellit Performed By: #### C BCNO, [id number], PTH, URIC, MG, RENAL, ADDONUAPLUS, CUU, PROCRERAT #### [address] Protein (U) [Mass/Vol] 10 mg/dL High 0-9 [facility] Comment on above: Order Comment: Reaso n for Exam Chronic kidney disease, stage III (moderate);Diabetes mellit Performed By: #### C BCNO, [id number], PTH, URIC, MG, RENAL, ADDONUAPLUS, CUU, PROCRERAT #### [address] Urine Protein/Creatinine Ratio 99 mg/g{Cre} Normal 0-200 [facility] Comment on above: Order Comment: Reaso n for Exam Chronic kidney disease, stage III (moderate);Diabetes mellit Result Comment: PERF ORMED BY: [place] [address] PATHOLOGIST [employer] APPRENTICE SHANTE LOMBARDI M.D. Performed By: #### C BCNO, [id number], PTH, URIC, MG, RENAL, ADDONUAPLUS, CUU, PROCRERAT #### [address] Renal Function Panelon 09-18 Albumin [Mass/Vol] 3.9 g/dL Normal 3.5-5.7 [facility] Comment on above: Order Comment: Reaso n for Exam Chronic kidney disease, stage III (moderate);Diabetes mellit Performed By: #### C BCNO, [id number], PTH, URIC, MG, RENAL, ADDONUAPLUS, CUU, PROCRERAT #### [address] Anion gap [Moles/Vol] 14.0 mmol/L Normal 6.0-15.0 [facility] Comment on above: Order Comment: Reaso n for Exam Chronic kidney disease, stage III (moderate);Diabetes mellit Performed By: #### C BCNO, [id number], PTH, URIC, MG, RENAL, ADDONUAPLUS, CUU, PROCRERAT #### [address] [place] [address] [place] Calcium [Mass/Vol] 10.0 mg/dL Normal 8.6-10.3 [facility] Comment on above: Order Comment: Reaso n for Exam Chronic kidney disease, stage III (moderate);Diabetes mellit Performed By: #### C BCNO, [id number], PTH, URIC, MG, RENAL, ADDONUAPLUS, CUU, PROCRERAT #### [facility] [address] Chloride [Moles/Vol] 101 mmol/L Normal 98-107 [facility] Comment on above: Order Comment: Reaso n for Exam Chronic kidney disease, stage III (moderate);Diabetes mellit Performed By: #### C BCNO, [id number], PTH, URIC, MG, RENAL, ADDONUAPLUS, CUU, PROCRERAT #### [facility] [address] CO2 [Moles/Vol] 27.9 mmol/L Normal 21.0-31.0 [facility] Comment on above: Order Comment: Reaso n for Exam Chronic kidney disease, stage III (moderate);Diabetes mellit Performed By: #### C BCNO, [id number], PTH, URIC, MG, RENAL, ADDONUAPLUS, CUU, PROCRERAT #### [facility] [address] [place] [id number] [facility] Creatinine [Mass/Vol] 1.78 mg/dL High 0.60-1.20 [facility] Comment on above: Order Comment: Reaso n for Exam Chronic kidney disease, stage III (moderate);Diabetes mellit Performed By: #### C BCNO, [id number], PTH, URIC, MG, RENAL, ADDONUAPLUS, CUU, PROCRERAT #### [facility] [address] [place] [address] [place] GFR/1.73 sq M.predicted MDRD (S/P/Bld) [Vol rate/Area] 31.104 mL/min/{1.73_m2} [facility] Comment on above: Order Comment: Reaso n for Exam Chronic kidney disease, stage III (moderate);Diabetes mellit Performed By: #### C BCNO, [id number], PTH, URIC, MG, RENAL, ADDONUAPLUS, CUU, PROCRERAT #### [facility] [address] Glucose [Mass/Vol] 167 mg/dL High 70-100 [facility] Comment on above: Order Comment: Reaso n for Exam Chronic kidney disease, stage III (moderate);Diabetes mellit Result Comment: [facility] Glucose Reference Range is dependent on time and content of last meal. Glucose of more than 200 mg/dL in a nonstressed, ambulatory subject supports the diagnosis of Diabetes Mellitus. ADA recommended reference range Performed By: #### C BCNO, [id number], PTH, URIC, MG, RENAL, ADDONUAPLUS, CUU, PROCRERAT #### [facility] [address] Phosphate [Mass/Vol] 4.4 mg/dL Normal 3.7-7.2 [facility] Comment on above: Order Comment: Reaso n for Exam Chronic kidney disease, stage III (moderate);Diabetes mellit Performed By: #### C BCNO, [id number], PTH, URIC, MG, RENAL, ADDONUAPLUS, CUU, PROCRERAT #### [facility] [address] Potassium [Moles/Vol] 4.9 mmol/L Normal 3.5-5.1 [facility] Comment on above: Order Comment: Reaso n for Exam Chronic kidney disease, stage III (moderate);Diabetes mellit Performed By: #### C BCNO, [id number], PTH, URIC, MG, RENAL, ADDONUAPLUS, CUU, PROCRERAT #### [facility] [address] [place] [id number] [place] Sodium [Moles/Vol] 138 mmol/L Normal 136-145 [facility] Comment on above: Order Comment: Reaso n for Exam Chronic kidney disease, stage III (moderate);Diabetes mellit Performed By: #### C BCNO, [id number], PTH, URIC, MG, RENAL, ADDONUAPLUS, CUU, PROCRERAT #### [facility] [address] [id number] [place] Urea nitrogen [Mass/Vol] 43 mg/dL High 7-25 [facility] Comment on above: Order Comment: Reaso n for Exam Chronic kidney disease, stage III (moderate);Diabetes mellit Performed By: #### C BCNO, [id number], PTH, URIC, MG, RENAL, ADDONUAPLUS, CUU, PROCRERAT #### [facility] [address] [id number] [facility] Uric Acidon 09-18-2022 Urate [Mass/Vol] 9.7 mg/dL High 2.3-6.6 [facility] Comment on above: Order Comment: Reaso n for Exam Chronic kidney disease, stage III (moderate);Diabetes mellit Performed By: #### C BCNO, [id number], PTH, URIC, MG, RENAL, ADDONUAPLUS, CUU, PROCRERAT #### [facility] [address] [id number] [facility] Urine Cultureon 09-18-2022 Bacteria identified Cx Nom (U) ORGANISM: Escherichia coli (O:ESCCOL) [place] Count >100,000 Aerobic JACEY Charge (NMIC56) ------ [...] RESISTANT TO ALL B-LACTAM DRUGS. PERFORMED BY: [place] [address] PATHOLOGIST [employer]PRENTICE SHANTE LOMBARDI M.D. Normal [facility] Comment on above: Performed By: #### C BCNO, [id number], PTH, URIC, MG, RENAL, ADDONUAPLUS, CUU, PROCRERAT #### [facility] [address] [place] [address] Vitamin D 25 Hydroxy Totalon 09-18-2022 Vitamin D 25 Hydroxy Total 45.1 ng/mL Normal 30-100 [facility] Comment on above: Order Comment: Reaso n for Exam Chronic kidney disease, stage III (moderate);Diabetes mellit Result Comment: DEBORAH MIN D STATUS 25(OH)VITAMIN D RANGE (ng/mL) Deficient <20 Insufficient 20 to <30 Sufficient 30 to 100 Reference: Raven MF,Isai NC, Randa WALSH, et al. Evaluation,treatment, and prevention of vitamin D deficiency; an Endocrine Society clinical practice guideline. JCEM. 2010; 96(7):1911-30. PERFORMED BY: [address] [address] PATHOLOGIST [employer]CH[employer] APPRENTICE SHANTE LOMBARDI M.D. Performed By: #### C BCNO, [id number], PTH, URIC, MG, RENAL, ADDONUAPLUS, CUU, PROCRERAT #### [facility] [address] [place], [place] [id number] [facility] CBC AUTO DIFFon 06-28-2022 BASO # 0.1 103/ul Normal 0.0-0.1 [facility] Comment on above: Performed By: #### C BC #### [facility] [address] [address] [address] Briana Dillard Basophils/100 WBC (Bld) 0.8 % Normal 0.2-2.0 [facility] Comment on above: Performed By: #### C BC #### [facility] [address] [address] [address] Briana Dillard EO # 0.3 103/ul Normal 0.0-0.7 [facility] Comment on above: Performed By: #### C BC #### [facility] [address] [address] [address] Briana Dillard Eosinophils/100 WBC (Bld) 2.5 % Normal 0.9-7.0 [facility] Comment on above: Performed By: #### C BC #### [facility] [address] [address] [address] Briana Dillard Erythrocyte distribution width (RBC) [Ratio] 14.8 % Normal 11.0-15.0 [facility] Comment on above: Performed By: #### C BC #### [facility] [address] [address] [address] Briana Dillard Hematocrit (Bld) [Volume fraction] 43.8 % Normal 36.0-48.0 [facility] Comment on above: Performed By: #### C BC #### [facility] [address] [address] [address] Briana Dillard Hemoglobin (Bld) [Mass/Vol] 14.5 g/dL Normal 12.0-16.0 [facility] Comment on above: Performed By: #### C BC #### [facility] [address] [address] [address] Briana Dillard IG # 0.13 10e3/ul Critically high 0.00-0.03 [facility] Comment on above: Performed By: #### C BC #### [facility] [address] [address] [address] Briana Dillard IG % 1.0 % Critically high 0.0-0.5 [facility] Comment on above: Performed By: #### C BC #### [facility] [address] [address] [address] Briana Dillard LYMPH # 2.5 103/ul Normal 1.2-3.8 [facility] Comment on above: Performed By: #### C BC #### [facility] [address] [place] [address] Dr. Briana Dillard Lymphocytes/100 WBC (Bld) 19.1 % Critically low 20.5-60.0 [facility] Comment on above: Performed By: #### C BC #### [facility] [address] [place] [address] Dr. Briana Dillard MANUAL DIFF REQ NO Normal [facility] Comment on above: Performed By: #### C BC #### [facility] [address] [place] [address] Dr. Briana Dillard MCH (RBC) [Entitic mass] 30.8 pg Normal 26.7-34.0 [facility] Comment on above: Performed By: #### C BC #### [facility] [address] [place] [address] Dr. Briana Dillard MCHC (RBC) [Mass/Vol] 33.1 g/dL Normal 29.9-35.2 [facility] Comment on above: Performed By: #### C BC #### [facility] [address] [place] [address] Dr. Briana Dillard MCV (RBC) [Entitic vol] 93.0 fL Normal 81.0-99.0 [facility] Comment on above: Performed By: #### C BC #### [facility] [address] [place] [address] Dr. Briana Dillard MONO # 0.7 103/ul Normal 0.3-0.8 [facility] Comment on above: Performed By: #### C BC #### [facility] [address] [place] [address] Dr. Briana Dillard Monocytes/100 WBC (Bld) 5.7 % Normal 1.7-12.0 [facility] Comment on above: Performed By: #### C BC #### [facility] [address] [address] [address] Briana Dillard NEUT # 9.2 103/ul Critically high 1.4-6.5 [facility] Comment on above: Performed By: #### C BC #### [facility] [address] [address] [address] Briana Dillard Neutrophils/100 WBC (Bld) 70.9 % Normal 43.0-75.0 [facility] Comment on above: Performed By: #### C BC #### [facility] [address] [address] [address] Briana Dillard Platelet mean volume (Bld) [Entitic vol] 10.4 fL Normal 9.5-13.5 [facility] Comment on above: Performed By: #### C BC #### [facility] [address] [place] [address] Dr. Briana Dillard PLT 262 103/ul Normal 150-450 [facility] Comment on above: Performed By: #### C BC #### [facility] [address] [place] [address] Dr. Briana Dillard RBC 4.71 106/ul Normal 4.20-5.40 [facility] Comment on above: Performed By: #### C BC #### [facility] [address] [place] [address] Dr. Briana Dillard WBC 13.0 103/ul Critically high 4.0-11.0 [place] Comment on above: Performed By: #### C BC #### [facility] [address] [place] [address] Dr. Briana Dillard DIRECT LDLon 06-28-2022 Cholesterol in LDL [Mass/Vol] 90 mg/dL Normal [facility] Comment on above: Performed By: #### C MP, CMADM, BNP #### [facility] [address] [place] [address] Dr. Briana Dillard DLDL NORMAL SEE BELOW Normal [facility] Comment on above: Result Comment: <100 mg/dl OPTIMAL 100 - 129 mg/dl NEAR OR ABOVE OPTIMAL 130 - 159 mg/dl BORDERLINE HIGH 160 - 189 mg/dl HIGH >190 mg/dl VERY HIGH Performed By: #### C KYLE COLMENARESDM, BNP #### [facility] [address] [address] [address] Briana Dillard GLYCOHEMOGLOBIN A1Con 2022 ADA RECOMMENDATION SEE BELOW Normal [facility] Comment on above: Result Comment: ADA RECOMMENDED LIMIT 4.0 - 6.0 ADA THERAPEUTIC TARGET < 7.0 ACTION SUGGESTED > 7.0 Performed By: #### C DARRIAN CMADM, BNP #### [facility] [address] [address] [address] Briana Dillard Glucose [Mass/Vol] 229 mg/dL Normal [facility] Comment on above: Performed By: #### C KYLE COLMENARESDM, BNP #### [facility] [address] [place] [address] Dr. Briana Dillard HbA1c (Bld) [Mass fraction] 9.6 % Critically high 4.5-6.2 [facility] Comment on above: Performed By: #### C KYLE COLMENARESDM, BNP #### [facility] [address] [place] [address] Dr. Briana Dillard LIPID PROFILEon 06-28-2022 CHOL-HDL RATIO NORM SEE BELOW Normal [facility] Comment on above: Result Comment: 3.3 - 4.4 LOW RISK 4.4 - 7.1 AVERAGE RISK 7.1 - 11.0 MODERATE RISK >11.0 HIGH RISK Performed By: #### C KYLE COLMENARESDM, BNP #### [facility] [address] [address] [address] Briana Dillard Cholesterol [Mass/Vol] 219 mg/dL Critically high <=200 [facility] Comment on above: Performed By: #### C KYLE COLMENARESDM, BNP #### [facility] [address] [place] [address] Dr. Birana Dillard Cholesterol in HDL [Mass/Vol] 32 mg/dL Critically low 40-60 [facility] Comment on above: Performed By: #### C DARRIAN, CMADM, BNP #### [facility] [address] [address] [address] Briana Dillard Cholesterol.total/Choles terol in HDL [Mass ratio] 6.8 {ratio} Normal [facility] Comment on above: Performed By: #### C MP, CMADM, BNP #### [facility] [address] [place] [address] Dr. Briana Dillard HDL NORMAL > or = 60 mg/dl - LOW CARDIOVASCULAR RISK <40 mg/dl - HIGH CARDIOVASCULAR RISK Normal [facility] Comment on above: Performed By: #### C MP, CMADM, BNP #### [facility] [address] [place] [address] Dr. Briana Dillard LDL CALC NORMAL SEE BELOW Normal [facility] Comment on above: Result Comment: <100 mg/dl OPTIMAL 100 - 129 mg/dl NEAR OR ABOVE OPTIMAL 130 - 159 mg/dl BORDERLINE HIGH 160 - 189 mg/dl HIGH >190 mg/dl VERY HIGH Performed By: #### C MP, CMADM, BNP #### [facility] [address] [place] [address] Dr. Briana Dillard Triglyceride [Mass/Vol] 585 mg/dL Critically high <=150 [facility] Comment on above: Performed By: #### C MP, CMADM, BNP #### [facility] [address] [place] [address] Dr. Briana Dillard VLDL CALC 117.0 mg/dL Normal [facility] Comment on above: Performed By: #### C MP, CMADM, BNP #### [facility] [address] [place] [address] Dr. Briana Dillard PROF 14(COMP METB)on 023 Albumin [Mass/Vol] 3.6 g/dL Normal 3.4-5.0 [facility] Comment on above: Performed By: #### L IPID, CMP, DLDL #### [facility] [address] [place] [address] Dr. Briana Dillard Albumin/Globulin [Mass ratio] 0.9 {ratio} Normal [facility] Comment on above: Performed By: #### L IPID, CMP, DLDL #### [facility] [address] [place], [place] [id number] Dr. Briana Dillard ALP [Catalytic activity/Vol] 117 U/L Critically high 46-116 [facility] Comment on above: Performed By: #### L IPID, CMP, DLDL #### [facility] [address] [place] [address] Dr. Briana Dillard ALT [Catalytic activity/Vol] 42 U/L Normal 14-59 [facility] Comment on above: Performed By: #### L IPID, CMP, DLDL #### [facility] [address] [place] [address] Dr. Briana Dillard Anion gap [Moles/Vol] 15.4 mmol/L Normal [facility] Comment on above: Performed By: #### L IPID, CMP, DLDL #### [facility] [address] [place] [address] Dr. Briana Dillard AST [Catalytic activity/Vol] 29 U/L Normal 15-37 [facility] Comment on above: Performed By: #### L IPID, CMP, DLDL #### [facility] [address] [place] [address] Dr. Briana Dillard Bilirubin [Mass/Vol] 0.4 mg/dL Normal 0.2-1.0 [facility] Comment on above: Performed By: #### L IPID, CMP, DLDL #### [facility] [address] [place] [address] Dr. Briana Dillard Calcium [Mass/Vol] 10.2 mg/dL Critically high 8.5-10.1 [facility] Comment on above: Performed By: #### L IPID, CMP, DLDL #### [facility] [address] [place] [address] Dr. Briana Dillard Chloride [Moles/Vol] 100 mmol/L Normal 98-107 [facility] Comment on above: Performed By: #### L IPID, CMP, DLDL #### [facility] [address] [place] [address] Dr. Briana Dillard CO2 [Moles/Vol] 27.3 mmol/L Normal 21.0-32.0 [place] Comment on above: Performed By: #### L IPID, CMP, DLDL #### [facility] [address] [address] [address] Briana Dillard Creatinine [Mass/Vol] 1.40 mg/dL Critically high 0.55-1.02 [facility] Comment on above: Performed By: #### L IPID, CMP, DLDL #### [facility] [address] [place] [address] Dr. Briana Dillard EGFR-AF NORWEGIAN 46 mL/min/1.73m2 Critically low >=60 [facility] Comment on above: Performed By: #### L IPID, CMP, DLDL #### [facility] [address] [place] [address] Dr. Briana Dillard EGFR-NON AF [place]WEGIAN 38 mL/min/1.73m2 Critically low >=60 [facility] Comment on above: Performed By: #### L IPID, CMP, DLDL #### [facility] [address] [place] [address] Dr. Briana Dillard Globulin (S) [Mass/Vol] 3.9 g/dL Normal [facility] Comment on above: Performed By: #### L IPID, CMP, DLDL #### [facility] [address] [place] [address] Dr. Briana Dillard Glucose [Mass/Vol] 295 mg/dL Critically high 74-106 [facility] Comment on above: Performed By: #### L IPID, CMP, DLDL #### [facility] [address] [place] [address] Dr. Briana Dillard Potassium [Moles/Vol] 4.7 mmol/L Normal 3.5-5.1 [facility] Comment on above: Performed By: #### L IPID, CMP, DLDL #### [facility] [address] [place] [address] Dr. Briana Dillard Protein [Mass/Vol] 7.5 g/dL Normal 6.4-8.2 [facility] Comment on above: Performed By: #### L IPID, CMP, DLDL #### [facility] [address] [address] [address] Briana Dillard Sodium [Moles/Vol] 138 mmol/L Normal 136-145 [facility] Comment on above: Performed By: #### L IPID, CMP, DLDL #### [facility] [address] [place] [address] Dr. Briana Dillard Urea nitrogen [Mass/Vol] 34.0 mg/dL Critically high 7.0-18 .0 [facility] Comment on above: Performed By: #### L IPID, CMP, DLDL #### [facility] [address] [address] [address] Briana Dillard Urea nitrogen/Creatinine [Mass ratio] 24.3 mg/mg Normal [facility] Comment on above: Performed By: #### L IPID, CMP, DLDL #### [facility] [address] [place] [address] Dr. Briana Dillard UA RANDOM W/MICROSCOPICon BACTERIA TRACE Abnormal NONE SEEN [facility] Comment on above: Performed By: #### C MP, CMADM, BNP #### [facility] [address] [place] [address] Dr. Briana Dillard Bilirubin Ql (U) Negative Normal NEGATIVE [facility] Comment on above: Performed By: #### C MP, CMADM, BNP #### [facility] [address] [place] [address] Dr. Briana Dillard CAST NONE SEEN Normal NONE SEEN [facility] Comment on above: Performed By: #### C MP, CMADM, BNP #### [facility] [address] [place] [address] Dr. Briana Dillard Clarity (U) CLEAR Normal CLEAR [facility] Comment on above: Performed By: #### C MP, CMADM, BNP #### [facility] [address] [place] [address] Dr. Briana Dillard Color (U) LT. YELLOW Normal YELLOW [facility] Comment on above: Performed By: #### C MP, CMADM, BNP #### [facility] [address] [place] [address] Dr. Briana Dillard Crystals LM Nom (Urine sed) NONE SEEN Normal NONE SEEN [facility] Comment on above: Performed By: #### C MP, CMADM, BNP #### [facility] [address] [address] [address] Briana Dillard Epithelial cells LM Ql (Urine sed) MANY Abnormal NONE SEEN /RARE [facility] Comment on above: Performed By: #### C MP, CMADM, BNP #### [facility] [address] [address] [address] Briana Dillard Glucose Ql (U) Negative Normal NEGATIVE [facility] Comment on above: Performed By: #### C MP, CMADM, BNP #### [facility] [address] [place] [address] Dr. Briana Dillard Hemoglobin Ql (U) Negative Normal NEGATIVE [facility] Comment on above: Performed By: #### C MP, CMADM, BNP #### [facility] [address] [place] [address] Dr. Briana Dillard Ketones Ql (U) Negative Normal NEGATIVE [facility] Comment on above: Performed By: #### C MP, CMADM, BNP #### [facility] [address] [place] [address] Dr. Briana Dillard LEUKOCYTES TRACE Abnormal NEGATIVE [facility] Comment on above: Performed By: #### C MP, CMADM, BNP #### [facility] [address] [address] [address] Briana Dillard MUCOUS NONE SEEN Normal NONE SEEN [facility] Comment on above: Performed By: #### C MP, CMADM, BNP #### [facility] [address] [address] [address] Briana Dillard Nitrite Ql (U) Negative Normal NEGATIVE [facility] Comment on above: Performed By: #### C MP, CMADM, BNP #### [facility] [address] [place] [address] Dr. Briana Dillard pH (U) 6.0 [pH] Normal 5-9 [facility] Comment on above: Performed By: #### C MP, CMADM, BNP #### [facility] [address] [address] [address] Briana Dillard RBC 0-2 Normal 0-2 [facility] Comment on above: Performed By: #### C MP, CMADM, BNP #### [facility] [address] [address] [address] Briana Dillard SPEC GRAVITY 1.010 Normal 1.005-<=1.02 5 [facility] Comment on above: Performed By: #### C MP, CMADM, BNP #### [facility] [address] [place] [address] Dr. Briana Dillard UA PROTEIN TRACE Normal NEGATIVE/ TRACE [facility] Comment on above: Performed By: #### C MP, CMADM, BNP #### [facility] [address] [place] [address] Dr. Briana Dillard Urobilinogen Qn (U) 0.2 {Samuel'U}/dL Normal 0.2 - 1. 0 [facility] Comment on above: Performed By: #### C MP, CMADM, BNP #### [facility] [address] [place] [address] Dr. Briana Dillard WBC 2-5 Abnormal NONE SEEN [facility] Comment on above: Performed By: #### C MP, CMADM, BNP #### [facility] [address] [place] [address] Dr. Briana Dillard URINE T PROTEIN CREAT RATIOo n 06-28-2022 Protein (U) [Mass/Vol] 30.3 mg/dL Critically high <=12.0 [facility] Comment on above: Performed By: #### C MP, CMADM, BNP #### [facility] [address] [place] [address] Dr. Briana Dillard UR PROT CREAT RAT 0.80 Normal [facility] Comment on above: Performed By: #### C MP, CMADM, BNP #### [facility] [address] [place] [address] Dr. Briana Dillard URINE CREAT 38.11 mg/dL Normal 20.00-300.00 [facility] Comment on above: Performed By: #### C MP, CMADM, BNP #### [facility] [address] [address] [address] Briana Dillard POINT OF CARE GLUCOSEon 05-05 Glucose [Mass/Vol] 296 mg/dL Critically high 74-106 [facility] Comment on above: Performed By: #### C MP, CMADM, BNP #### [facility] [address] [address] [address] Briana Dillard POINT OF CARE GLUCOSEon 05-04 Glucose [Mass/Vol] 312 mg/dL Critically high 74-106 [facility] Comment on above: Performed By: #### C BC #### [facility] [address] [place] [address] Dr. Briana Dillard GLYCOHEMOGLOBIN A1Con 2021 ADA RECOMMENDATION SEE BELOW Normal [facility] Comment on above: Result Comment: ADA RECOMMENDED LIMIT 4.0 - 6.0 ADA THERAPEUTIC TARGET < 7.0 ACTION SUGGESTED > 7.0 Performed By: #### A 1C #### [facility] [address] [place] [address] Dr. Briana Dillard Glucose [Mass/Vol] 223 mg/dL Normal [facility] Comment on above: Performed By: #### A 1C #### [facility] [address] [place] [address] Dr. Briana Dillard HbA1c (Bld) [Mass fraction] 9.4 % Critically high 4.5-6.2 [facility] Comment on above: Performed By: #### A 1C #### [facility] [address] [place] [address] Dr. Briana Dillard CBC AUTO DIFFon 11-29-2021 BASO # 0.1 103/ul Normal 0.0-0.1 [facility] Comment on above: Performed By: #### C BC #### [facility] [address] [place] [address] Dr. Briana Dillard Basophils/100 WBC (Bld) 0.9 % Normal 0.2-2.0 [facility] Comment on above: Performed By: #### C BC #### [facility] [address] [address] [address] Briana Dillard EO # 0.3 103/ul Normal 0.0-0.7 [facility] Comment on above: Performed By: #### C BC #### [facility] [address] [address] [address] Briana Dillard Eosinophils/100 WBC (Bld) 2.7 % Normal 0.9-7.0 [facility] Comment on above: Performed By: #### C BC #### [facility] [address] [place] [address] Dr. Briana Dillard Erythrocyte distribution width (RBC) [Ratio] 15.8 % Critically high 11.0-15.0 [facility] Comment on above: Performed By: #### C BC #### [facility] [address] [place] [address] Dr. Briana Dillard Hematocrit (Bld) [Volume fraction] 39.4 % Normal 36.0-48.0 [facility] Comment on above: Performed By: #### C BC #### [facility] [address] [place] [address] Dr. Briana Dillard Hemoglobin (Bld) [Mass/Vol] 13.0 g/dL Normal 12.0-16.0 [facility] Comment on above: Performed By: #### C BC #### [facility] [address] [place] [address] Dr. Briana Dillard IG # 0.12 10e3/ul Critically high 0.00-0.03 [facility] Comment on above: Performed By: #### C BC #### [facility] [address] [place] [address] Dr. Briana Dillard IG % 1.1 % Critically high 0.0-0.5 [facility] Comment on above: Performed By: #### C BC #### [facility] [address] [place] [address] Dr. Briana Dillard LYMPH # 2.7 103/ul Normal 1.2-3.8 [facility] [facility] Comment on above: Performed By: #### C BC #### [facility] [address] [address] [address] Briana Dillard Lymphocytes/100 WBC (Bld) 25.6 % Normal 20.5-60.0 [facility] Comment on above: Performed By: #### C BC #### [facility] [address] [place] [address] Dr. Briana Dillard MANUAL DIFF REQ NO Normal [facility] Comment on above: Performed By: #### C BC #### [facility] [address] [place] [address] Dr. Briana Dillard MCH (RBC) [Entitic mass] 30.9 pg Normal 26.7-34.0 [facility] Comment on above: Performed By: #### C BC #### [facility] [address] [place] [address] Dr. Briana Dillard MCHC (RBC) [Mass/Vol] 33.0 g/dL Normal 29.9-35.2 [facility] Comment on above: Performed By: #### C BC #### [facility] [address] [place] [address] Dr. Briana Dillard MCV (RBC) [Entitic vol] 93.6 fL Normal 81.0-99.0 [facility] Comment on above: Performed By: #### C BC #### [facility] [address] [place] [address] Dr. Briana Dillard MONO # 0.8 103/ul Normal 0.3-0.8 [facility] Comment on above: Performed By: #### C BC #### [facility] [address] [place] [address] Dr. Briana Dillard Monocytes/100 WBC (Bld) 7.9 % Normal 1.7-12.0 [facility] Comment on above: Performed By: #### C BC #### [facility] [address] [place] [address] Dr. Briana Dillard NEUT # 6.6 103/ul Critically high 1.4-6.5 [facility] Comment on above: Performed By: #### C BC #### [facility] [address] [address] [address] Briana Dillard Neutrophils/100 WBC (Bld) 61.8 % Normal 43.0-75.0 [facility] Comment on above: Performed By: #### C BC #### [facility] [address] [place] [address] Dr. Briana Dillard Platelet mean volume (Bld) [Entitic vol] 10.3 fL Normal 9.5-13.5 [facility] Comment on above: Performed By: #### C BC #### [facility] [address] [address] [address] Briana Dillard PLT 234 103/ul Normal 150-450 [facility] Comment on above: Performed By: #### C BC #### [facility] [address] [place] [address] Dr. Briana Dillard RBC 4.21 106/ul Normal 4.20-5.40 [facility] Comment on above: Performed By: #### C BC #### [facility] [address] [address] [address] Briana Dillard WBC 10.6 103/ul Normal 4.0-11.0 [facility] Comment on above: Performed By: #### C BC #### [facility] [address] [place] [address] Dr. Briana Dillard GLYCOHEMOGLOBIN A1Con 2021 ADA RECOMMENDATION SEE BELOW Normal [facility] Comment on above: Result Comment: ADA RECOMMENDED LIMIT 4.0 - 6.0 ADA THERAPEUTIC TARGET < 7.0 ACTION SUGGESTED > 7.0 Performed By: #### C BC #### [facility] [address] [place] [address] Dr. Briana Dillard Glucose [Mass/Vol] 220 mg/dL Normal [facility] Comment on above: Performed By: #### C BC #### [facility] [address] [place] [address] Dr. Briana Dillard HbA1c (Bld) [Mass fraction] 9.3 % Critically high 4.5-6.2 [facility] Comment on above: Performed By: #### C BC #### [facility] [address] [address] [address] Briana Dillard LIPID PROFILEon 11-29-2021 CHOL-HDL RATIO NORM SEE BELOW Normal [facility] Comment on above: Result Comment: 3.3 - 4.4 LOW RISK 4.4 - 7.1 AVERAGE RISK 7.1 - 11.0 MODERATE RISK >11.0 HIGH RISK Performed By: #### C MP, CMADM, BNP #### [facility] [address] [address] [address] Briana Dillard Cholesterol [Mass/Vol] 135 mg/dL Normal <=200 [facility] Comment on above: Performed By: #### C MP, CMADM, BNP #### [facility] [address] [address] [address] Briana Dillard Cholesterol in HDL [Mass/Vol] 44 mg/dL Normal 40-60 [facility] Comment on above: Performed By: #### C MP, CMADM, BNP #### [facility] [address] [address] [address] Briana Dillard Cholesterol in LDL [Mass/Vol] 60.2 mg/dL Normal [facility] Comment on above: Performed By: #### C MP, CMADM, BNP #### [facility] [address] [address] [address] Briana Dillard Cholesterol.total/Choles terol in HDL [Mass ratio] 3.1 {ratio} Normal [facility] Comment on above: Performed By: #### C MP, CMADM, BNP #### [facility] [address] [address] [address] Briana Dillard HDL NORMAL > or = 60 mg/dl - LOW CARDIOVASCULAR RISK <40 mg/dl - HIGH CARDIOVASCULAR RISK Normal [facility] Comment on above: Performed By: #### C MP, CMADM, BNP #### [facility] [address] [place] [address] Dr. Briana Dillard LDL CALC NORMAL SEE BELOW Normal [facility] Comment on above: Result Comment: <100 mg/dl OPTIMAL 100 - 129 mg/dl NEAR OR ABOVE OPTIMAL 130 - 159 mg/dl BORDERLINE HIGH 160 - 189 mg/dl HIGH >190 mg/dl VERY HIGH Performed By: #### C MP, CMADM, BNP #### [facility] [address] [address] [address] Briana Dillard Triglyceride [Mass/Vol] 154 mg/dL Critically high <=150 [facility] Comment on above: Performed By: #### C MP, CMADM, BNP #### [facility] [address] [address] [address] Briana Dillard VLDL CALC 30.8 mg/dL Normal [facility] Comment on above: Performed By: #### C MP, CMADM, BNP #### [facility] [address] [place] [address] Dr. Briana Dillard POINT OF CARE GLUCOSEon 11-02 Glucose [Mass/Vol] 271 mg/dL Critically high 74-106 [facility] Comment on above: Performed By: #### C BC #### [facility] [address] [place] [address] Dr. Briana Dillard Glucose [Mass/Vol] 180 mg/dL Critically high 74-106 [facility] Comment on above: Performed By: #### C MP, CMADM, BNP #### [facility] [address] [place] [address] Dr. Briana Dillard BNPon 11-28-2021 Natriuretic peptide B (Bld) [Mass/Vol] 86.0 pg/mL Normal <=900.0 [facility] Comment on above: Performed By: #### C MP, CMADM, BNP #### [facility] [address] [place] [address] Dr. Briana Dillard CARDIAC TANIA ADMITon 022 CK [Catalytic activity/Vol] 52 U/L Normal 26-192 [facility] Comment on above: Performed By: #### C MP, CMADM, BNP #### [facility] [address] [place] [address] Dr. Briana Dillard CK.MB [Mass/Vol] 0.65 ng/mL Normal <=3.60 [place] Comment on above: Performed By: #### C MP, CMADM, BNP #### [facility] [address] [place] [address] Dr. Briana Dillard HSTROP 4.8 pg/mL Normal 4.0-51.3 [facility] Comment on above: Result Comment: CUT- OFF POINTS HAVE BEEN ESTABLISHED BASED ON THE FOURTH UNIVERSAL DEFINITIONS OF MYOCARDIAL INFARCTION. THE UPPER REFERENCE LIMIT (URL) OF TROPONIN, DEFINED THE 99TH PERCENTILE OF cTnI DISTRIBUTION IN A REFERENCE POPULATION, HAS BEEN CONFIRMED THE DECISION THRESHOLD FOR IN DIAGNOSIS. Performed By: #### C MP, CMADM, BNP #### [facility] [address] [place] [address] Dr. Briana Dillard YONIS 47 ng/mL Normal 9-82 [facility] Comment on above: Performed By: #### C MP, CMADM, BNP #### [facility] [address] [place] [address] Dr. Briana Dillard CBC AUTO DIFFon 11-28-2021 BASO # 0.1 103/ul Normal 0.0-0.1 [facility] Comment on above: Performed By: #### C BC #### [facility] [address] [place] [address] Dr. Briana Dillard Basophils/100 WBC (Bld) 0.8 % Normal 0.2-2.0 [facility] Comment on above: Performed By: #### C BC #### [facility] [address] [place] [address] Dr. Briana Dillard EO # 0.2 103/ul Normal 0.0-0.7 [facility] Comment on above: Performed By: #### C BC #### [facility] [address] [place] [address] Dr. Briana Dillard Eosinophils/100 WBC (Bld) 1.4 % Normal 0.9-7.0 [facility] Comment on above: Performed By: #### C BC #### [facility] [address] [place] [address] Dr. Briana Dillard Erythrocyte distribution width (RBC) [Ratio] 15.8 % Critically high 11.0-15.0 [facility] Comment on above: Performed By: #### C BC #### [facility] [address] [address] [address] Briana Dillard Hematocrit (Bld) [Volume fraction] 42.2 % Normal 36.0-48.0 [facility] Comment on above: Performed By: #### C BC #### [facility] [address] [address] [address] Briana Dillard Hemoglobin (Bld) [Mass/Vol] 14.3 g/dL Normal 12.0-16.0 [facility] Comment on above: Performed By: #### C BC #### [facility] [address] [address] [address] Briana Dillard IG # 0.14 10e3/ul Critically high 0.00-0.03 [facility] Comment on above: Performed By: #### C BC #### [facility] [address] [place] [address] Dr. Briana Dillard IG % 1.1 % Critically high 0.0-0.5 [facility] Comment on above: Performed By: #### C BC #### [facility] [address] [place] [address] Dr. Briana Dillard LYMPH # 1.9 103/ul Normal 1.2-3.8 [facility] Comment on above: Performed By: #### C BC #### [facility] [address] [place] [address] Dr. Briana Dillard Lymphocytes/100 WBC (Bld) 14.0 % Critically low 20.5-60.0 [facility] Comment on above: Performed By: #### C BC #### [facility] [address] [place] [address] Dr. Briana Dillard MANUAL DIFF REQ NO Normal [facility] Comment on above: Performed By: #### C BC #### [facility] [address] [place] [address] Dr. Briana Dillard MCH (RBC) [Entitic mass] 31.2 pg Normal 26.7-34.0 [facility] Comment on above: Performed By: #### C BC #### [facility] [address] [place] [address] Dr. Briana Dillard MCHC (RBC) [Mass/Vol] 33.9 g/dL Normal 29.9-35.2 [facility] Comment on above: Performed By: #### C BC #### [facility] [address] [address] [address] Briana Dillard MCV (RBC) [Entitic vol] 92.1 fL Normal 81.0-99.0 [facility] Comment on above: Performed By: #### C BC #### [facility] [address] [address] [address] Briana Dillard MONO # 1.1 103/ul Critically high 0.3-0.8 [facility] Comment on above: Performed By: #### C BC #### [facility] [address] [address] [address] Briana Dillard Monocytes/100 WBC (Bld) 8.0 % Normal 1.7-12.0 [facility] Comment on above: Performed By: #### C BC #### [facility] [address] [address] [address] Briana Dillard NEUT # 9.9 103/ul Critically high 1.4-6.5 [facility] Comment on above: Performed By: #### C BC #### [facility] [address] [place] [address] Dr. Briana Dillard Neutrophils/100 WBC (Bld) 74.7 % Normal 43.0-75.0 [facility] Comment on above: Performed By: #### C BC #### [facility] [address] [place] [address] Dr. Briana Dillard Platelet mean volume (Bld) [Entitic vol] 10.1 fL Normal 9.5-13.5 [facility] Comment on above: Performed By: #### C BC #### [facility] [address] [place] [address] Dr. Briana Dillard PLT 241 103/ul Normal 150-450 [facility] Comment on above: Performed By: #### C BC #### [facility] [address] [address] [address] Briana Dillard RBC 4.58 106/ul Normal 4.20-5.40 [facility] Comment on above: Performed By: #### C BC #### [facility] [address], [place] [address] Dr. Briana Dillard WBC 13.2 103/ul Critically high 4.0-11.0 [facility] Comment on above: Performed By: #### C BC #### [facility] [address], [place] [address] Dr. Briana Dillard CTA CHEST WO W [...] NADJA KEMP Date: 2021-11-28 13:10 Normal [facility] SARS-CoV-2 (COVID-19) RNA ANTOINE+probe Ql (Unsp spec) Not detected Normal NOT DETECTED [facility] Comment on above: Result Comment: When diagnostic [...] for this test is supported by the [place] of [employer] and Human Service's declaration that [...] By: #### C MP, CMADM, BNP #### [facility] [address] [place] [address] Dr. Briana Dillard D-DIMERon 11-28-2021 D-DIMER 0.77 mg/L FEU Critically high <=0.59 [facility] Comment on above: Performed By: #### P T, PTT, DDIM #### [facility] [address] [place] [address] Dr. Briana Dillard D-DIMER COMMENTS SEE BELOW Normal [facility] Comment on above: Result Comment: Incr [...] By: #### P T, PTT, DDIM #### [facility] [address] [place] [address] Dr. Briana Dillard POINT OF CARE GLUCOSEon 11-02 Glucose [Mass/Vol] 213 mg/dL Critically high 74-106 [facility] Comment on above: Performed By: #### P OCGLUC #### [facility] [address] [place] [address] Dr. Briana Dillard Glucose [Mass/Vol] 255 mg/dL Critically high 74-106 [facility] Comment on above: Performed By: #### C MP, CMADM, BNP #### [facility] [address] [address] [address] Briana Dillard PROF 14(COMP METB)on 022 Albumin [Mass/Vol] 3.4 g/dL Normal 3.4-5.0 [facility] Comment on above: Performed By: #### C MP, CMADM, BNP #### [facility] [address] [address] [address] Briana Dillard Albumin/Globulin [Mass ratio] 0.9 {ratio} Normal [facility] Comment on above: Performed By: #### C MP, CMADM, BNP #### [facility] [address] [place] [address] Dr. Briana Dillard ALP [Catalytic activity/Vol] 126 U/L Critically high 46-116 [facility] Comment on above: Performed By: #### C MP, CMADM, BNP #### [facility] [address] [place] [address] Dr. Briana Dillard ALT [Catalytic activity/Vol] 30 U/L Normal 14-59 [facility] Comment on above: Performed By: #### C MP, CMADM, BNP #### [facility] [address] [place] [address] Dr. Briana Dillard Anion gap [Moles/Vol] 13.6 mmol/L Normal [facility] Comment on above: Performed By: #### C MP, CMADM, BNP #### [facility] [address] [address] [address] Briana Dillard AST [Catalytic activity/Vol] 18 U/L Normal 15-37 [facility] Comment on above: Performed By: #### C MP, CMADM, BNP #### [facility] [address] [address] [address] Briana Dillard Bilirubin [Mass/Vol] 0.4 mg/dL Normal 0.2-1.0 [facility] Comment on above: Performed By: #### C MP, CMADM, BNP #### [facility] [address] [place] [address] Dr. Briana Dillard Calcium [Mass/Vol] 8.9 mg/dL Normal 8.5-10.1 [facility] Comment on above: Performed By: #### C MP, CMADM, BNP #### [facility] [address] [place] [address] Dr. Briana Dillard Chloride [Moles/Vol] 98 mmol/L Normal 98-107 [facility] Comment on above: Performed By: #### C MP, CMADM, BNP #### [facility] [address] [place] [address] Dr. Briana Dillard CO2 [Moles/Vol] 25.0 mmol/L Normal 21.0-32.0 [place] Comment on above: Performed By: #### C MP, CMADM, BNP #### [facility] [address] [place] [address] Dr. Briana Dillard Creatinine [Mass/Vol] 1.58 mg/dL Critically high 0.55-1.02 [facility] Comment on above: Performed By: #### C MP, CMADM, BNP #### [facility] [address] [place] [address] Dr. Briana Dillard EGFR-AF NORWEGIAN 40 mL/min/1.73m2 Critically low >=60 [facility] Comment on above: Performed By: #### C MP, CMADM, BNP #### [facility] [address] [place] [address] Dr. Briana Dillard EGFR-NON AF [place]AN 33 mL/min/1.73m2 Critically low >=60 [facility] Comment on above: Performed By: #### C MP, CMADM, BNP #### [facility] [address] [place] [address] Dr. Briana Dillard Globulin (S) [Mass/Vol] 4.0 g/dL Normal [facility] Comment on above: Performed By: #### C MP, CMADM, BNP #### [facility] [address] [place] [address] Dr. Briana Dillard Glucose [Mass/Vol] 386 mg/dL Critically high 74-106 [facility] Comment on above: Performed By: #### C KYLE COLMENARESDM, BNP #### [facility] [address] [address] [address] Briana Dillard Potassium [Moles/Vol] 4.6 mmol/L Normal 3.5-5.1 [facility] Comment on above: Performed By: #### C DARRIAN CMADM, BNP #### [facility] [address] [place] [address] Dr. Briana Dillard Protein [Mass/Vol] 7.4 g/dL Normal 6.4-8.2 [facility] Comment on above: Performed By: #### C DARRIAN CMADM, BNP #### [facility] [address] [place] [address] Dr. Briana Dillard Sodium [Moles/Vol] 132 mmol/L Critically low 136-145 [facility] Comment on above: Performed By: #### C DARRIAN CMADM, BNP #### [facility] [address] [place] [address] Dr. Briana Dillard Urea nitrogen [Mass/Vol] 23.0 mg/dL Critically high 7.0-18 .0 [facility] Comment on above: Performed By: #### C DARRIAN CMADM, BNP #### [facility] [address] [place] [address] Dr. Briana Dillard Urea nitrogen/Creatinine [Mass ratio] 14.6 mg/mg Normal [facility] Comment on above: Performed By: #### C DARRIAN, CMADM, BNP #### [facility] [address] [place] [address] Dr. Briana Dillard PROTIMEon 11-28-2021 INR Coag (PPP) [Relative time] 1.01 {INR} Normal [facility] Comment on above: Performed By: #### P T, PTT, DDIM #### [facility] [address] [place] [address] Dr. Briana Dillard INR GUIDELINES SEE BELOW Normal [facility] Comment on above: Result Comment: LURDES RED INR: 2.0 - 3.0 CONDITIONS NOT LISTED BELOW 2.5 - 3.5 FOR PROSTHETIC HEART VALVE REPLACEMENT 2.5 - 3.5 RECURRENT THROMBOSIS Performed By: #### P T, PTT, DDIM #### [facility] [address] [place] [address] Dr. Briana Dillard PT Coag (PPP) [Time] 10.9 s Normal 9.0-11.6 [facility] Comment on above: Performed By: #### P T, PTT, DDIM #### [facility] [address] [place] [address] Dr. Briana Dillard PTTon 11-28-2021 aPTT Coag (Bld) [Time] 27.5 s Normal 22.3-36.2 [facility] Comment on above: Performed By: #### P T, PTT, DDIM #### [facility] [address] [place] [address] Dr. Briana Dillard TROPONIN, HIGH SENSITIVITYon 11-28-2021 HSTROP 5.5 pg/mL Normal 4.0-51.3 [facility] Comment on above: Result Comment: CUT- OFF POINTS HAVE BEEN ESTABLISHED BASED ON THE FOURTH UNIVERSAL DEFINITIONS OF MYOCARDIAL INFARCTION. THE UPPER REFERENCE LIMIT (URL) OF TROPONIN, DEFINED THE 99TH PERCENTILE OF cTnI DISTRIBUTION IN A REFERENCE POPULATION, HAS BEEN CONFIRMED THE DECISION THRESHOLD FOR IN DIAGNOSIS. Performed By: #### C MP, CMADM, BNP #### [facility] [address] [place] [address] Dr. Briana iDllard HSTROP 5.4 pg/mL Normal 4.0-51.3 [facility] Comment on above: Result Comment: CUT- OFF POINTS HAVE BEEN ESTABLISHED BASED ON THE FOURTH UNIVERSAL DEFINITIONS OF MYOCARDIAL INFARCTION. THE UPPER REFERENCE LIMIT (URL) OF TROPONIN, DEFINED THE 99TH PERCENTILE OF cTnI DISTRIBUTION IN A REFERENCE POPULATION, HAS BEEN CONFIRMED THE DECISION THRESHOLD FOR IN DIAGNOSIS. Performed By: #### C MP, CMADM, BNP #### [facility] [address] [place] [address] Dr. Briana Dillard HSTROP 5.6 pg/mL Normal 4.0-51.3 [facility] Comment on above: Result Comment: CUT- OFF POINTS HAVE BEEN ESTABLISHED BASED ON THE FOURTH UNIVERSAL DEFINITIONS OF MYOCARDIAL INFARCTION. THE UPPER REFERENCE LIMIT (URL) OF TROPONIN, DEFINED THE 99TH PERCENTILE OF cTnI DISTRIBUTION IN A REFERENCE POPULATION, HAS BEEN CONFIRMED THE DECISION THRESHOLD FOR IN DIAGNOSIS. Performed By: #### C MP, CMADM, BNP #### [facility] [address], [place] [address] Dr. Briana Dillard XR CHEST 1 Von [...] NADJA KEMP Date: 2021-11-28 12:46 Normal [facility] Tobacco Screening.on 022 Adult depression screening assessment Yes -[facility] [address] DO Work Phone: Tobacco use status [facility]PHS a) Yes [facility] DO Work Phone: [phone] Tobacco Screening. Yes -[facility] [address] DO Work Phone: [phone] Tobacco Screening. 1-Several days [facility] 250 DO Work Phone: [phone] Tobacco Screening. 0-Not at all [facility] [address] DO Work Phone: [phone] Tobacco Screening. Not difficult at all [facility] [address] DO Work Phone: Echocardiogramon 05-20-2021 Echocardiography [facility] [address] [facility], [address] [place] [address] TRANSTHORACIC ECHOCARDIOGRAM REPORT Patient Name: VIDHYA IBARRA Reading Physician: [id number] Ruma Dawn MD Study Date: 05/20/2021 Referring [id number] SHASHI COTTRELL Physician: MRN/PID: [id number] PCP: Accession/Order#: [id number] [facility] [place] Location: Date of : 1955 Fellow: Gender: F Nurse: Admit Date: Leisure Studies Professor: Clarisse Sumner RDCS, RVT Height: 160.02 cm CC Report to: Weight: 89.36 kg Study Type: Echocardiogram BSA: 1.92 m2 Blood Pressure: 166 /94 mmHg Diagnosis/ICD: I51.7-Cardiomegaly; R06.00-Dyspnea, unspecified Indication: Obesity, Tobacco Abuse Procedure/CPT: Echo Complete w Full [id number] Study Detail: The following Echo studies were [...] 0.9 m/s (0.6-0.9m/s) PV Max P.1 mmHg [id number] Ruma Dawn MD Electronically signed on 05/24/2021 at 5:25:46 PM Final Normal [facility] Tobacco Screening.on 022 Fall risk assessment a) No falls within the last year [facility] [address] DO Work Phone: Tobacco use status CPHS a) Yes [facility] y 250 DO Work Phone: Fall risk assessment a) No falls within the last year [facility] y 250 DO Work Phone: Tobacco use status CPHS a) Yes [facility] y 250 DO Work Phone: Tobacco Screening. Yes [facility] y 250 DO Work Phone: Bld Gas Venon 12-02-2019 [facility] N[facility] Comment on above: Result Comment: [facility] Department of Pulmonary Medicine [address] [place] [address] Performed By: #### 1 [id number] #### [facility] [facility] [address] [place] [address] Called By: KATHY OCHO[facility] Comment on above: Performed By: #### 1 [id number] #### [facility] [address] [place] [address] Called To: DR. CORINNE COFFMAN [facility] Comment on above: Performed By: #### 1 [id number] #### [facility] [address] [place] [address] Drawn by [facility] Comment on above: Performed By: #### 1 [id number] #### [facility] [address] [place] [address] Dt/Tm Notified 17:42:00 F [facility] Comment on above: Performed By: #### 1 [id number] #### [facility] [address] [place] [address] pCO2 Guillaume 36.1 mmHg Low 38.0-50.0 [facility] Comment on above: Performed By: #### 1 [id number] #### [facility] [address] [place] [id number] pH (BldV) 7.392 [pH] Normal 7.320-7.430 [facility] Comment on above: Performed By: #### 1 [id number] #### [facility] [address] [place] [address] Sample Site OTHER [facility] Comment on above: Performed By: #### 1 [id number] #### [facility] [address] [place] [address] Sample Type Venous [facility] Comment on above: Performed By: #### 1 [id number] #### [facility] [address] [id number] Physician Orderon 12-02-2019 Physician Order [id number]:127 Normal [facility] Vital Signs Date Time Vital Sign Value Performing Clinician Facility 03-24-2023 13:06-0500 Body temperature 97.8 [degF] MD Shaikh Mchugh Work Phone: [facility] 03-24-2023 13:06-0500 Body weight 86.63 kg MD Shaikh Mchugh Work Phone: [facility] 03-24-2023 13:06-0500 Diastolic blood pressure 67 mm[Hg] MD Shaikh Mchugh Work Phone: [facility] 03-24-2023 13:06-0500 Heart rate 68 /min MD Shaikh Mchugh Work Phone: [facility] 03-24-2023 13:06-0500 Respiratory rate 16 /min MD Shaikh Mchugh Work Phone: [facility] 03-24-2023 13:06-0500 SaO2% (BldA) [Mass fraction] 98 % MD Shaikh Mchugh Work Phone: [facility] 03-24-2023 13:06-0500 Systolic blood pressure 130 mm[Hg] MD Shaikh Mchugh Work Phone: [facility] 03-24-2023 12:53-0500 Body height 160.02 cm MD Shaikh Mchugh Work Phone: [facility] 03-11-2023 09:20-0500 Body height 162.56 cm Alta Sharmaine Other [facility] Other 03-11-2023 09:20-0500 Body mass index (BMI) [Ratio] 32.78 kg/m2 Alta Sharmaine Other [facility] Other 03-11-2023 09:20-0500 Body temperature 96.3 [degF] Alta Sharmaine Other [facility] Other 03-11-2023 09:20-0500 Body weight 86.64 kg Alta Sharmaine Other [facility] Other 03-11-2023 09:20-0500 Diastolic blood pressure 77 mm[Hg] Alta Sharmaine Other [facility] Other 03-11-2023 09:20-0500 Respiratory rate 18 /min Alta Sharmaine Other [facility] Other 03-11-2023 09:20-0500 SaO2% (BldA) [Mass fraction] 95 % Alta Sharmaine Other [facility] Other 03-11-2023 09:20-0500 Systolic blood pressure 139 mm[Hg] Alta Sharmaine Other [facility] Other 12-08-2022 08:41-0400 Body height 160.02 cm Shaikh Louisd [facility] Work Phone: 12-08-2022 08:41-0400 Body mass index (BMI) [Ratio] 32.95 kg/m2 Shaikh Louisd Work Phone: [facility] Work Phone: 12-08-2022 08:41-0400 Body surface area Derived from formula 1.88 m2 Shaikh Louisd Work Phone: [facility] Work Phone: 12-08-2022 08:41-0400 Body weight 84.37 kg Shaikh Louisd Work Phone: [facility] [facility] Work Phone: 12-08-2022 08:41-0400 Diastolic blood pressure 60 mm[Hg] Shaikh Brightwad Work Phone: [facility] Work Phone: 12-08-2022 08:41-0400 Heart rate 66 /min Shaikh Brightwad Work Phone: [facility] DO Work Phone: 12-08-2022 08:41-0400 Systolic blood pressure 108 mm[Hg] Shaikh Brightwad Work Phone: [facility] [address] DO Work Phone: 07-01-2021 13:12-0500 Diastolic blood pressure 88 mm[Hg] Dial Yaimawwad Work Phone: [facility] [address] DO Work Phone: 07-01-2021 13:12-0500 Systolic blood pressure 138 mm[Hg] Shaikh Yaimawwad Work Phone: [facility] [address] DO Work Phone: 07-01-2021 09:20-0500 Diastolic blood pressure 100 mm[Hg] Shaikh Brightwad Work Phone: [facility] [address] DO Work Phone: 07-01-2021 09:20-0500 Systolic blood pressure 148 mm[Hg] Shaikh Brightwad Work Phone: [facility] [address] DO Work Phone: 07-01-2021 09:01-0500 Diastolic blood pressure 98 mm[Hg] Shaikh Brightwad Work Phone: [facility] [facility] DO Work Phone: 07-01-2021 09:01-0500 Systolic blood pressure 168 mm[Hg] Shaikh Yaimawwad Work Phone: [facility] [address] DO Work Phone: 07-01-2021 08:51-0500 Body height 160.02 cm Shaikh Yaimawwad Work Phone: [facility] [address] DO Work Phone: 07-01-2021 08:51-0500 Body mass index (BMI) [Ratio] 33.83 kg/m2 Shaikh Yaimawwad Work Phone: [facility] [address] DO Work Phone: 07-01-2021 08:51-0500 Body surface area Derived from formula 1.9 m2 Shaikh Louisd Work Phone: [facility] [address] DO Work Phone: 07-01-2021 08:51-0500 Body weight 86.64 kg Shaikh Louisd Work Phone: [facility] [address] DO Work Phone: 07-01-2021 08:51-0500 Diastolic blood pressure 104 mm[Hg] Shaikh Louisd Work Phone: [facility] [address] DO Work Phone: 07-01-2021 08:51-0500 Heart rate 87 /min Shaikh Louisd Work Phone: [facility] [address] DO Work Phone: 07-01-2021 08:51-0500 Systolic blood pressure 169 mm[Hg] Shaikh Jeison Work Phone: [facility] [address] DO Work Phone: 07-01-2021 08:51-0500 6 1 Shaikh Louisd Work Phone: [facility] [address] DO Work Phone: Comment on above: PHQ-9 TS 05-24-2021 10:00-0500 Body height 162.56 cm Juan Gonzalez Other [facility] Other 05-24-2021 10:00-0500 Body mass index (BMI) [Ratio] 32.44 kg/m2 Juan Gonzalez Other [facility] Other 05-24-2021 10:00-0500 Body weight 85.73 kg Juan Gonzalez Other [facility] [employer] Other 05-20-2021 10:45-0500 60 1 Shaikh Jeison Work Phone: [facility] [address] [place] Work Phone: Comment on above: [id number] 05-13-2021 11:59-0500 Diastolic blood pressure 104 mm[Hg] Shaikh Louisd Work Phone: [facility] [address] DO Work Phone: 05-13-2021 11:59-0500 Systolic blood pressure 162 mm[Hg] Shaikh Louisd Work Phone: [facility] [address] DO Work Phone: 05-13-2021 11:13-0500 Diastolic blood pressure 100 mm[Hg] Shaikh Louisd Work Phone: [facility] [address] DO Work Phone: 05-13-2021 11:13-0500 Systolic blood pressure 170 mm[Hg] Shaikh Louisd Work Phone: [facility] [address] DO Work Phone: 05-13-2021 11:12-0500 Body height 160.02 cm Shaikh Louisd Work Phone: [facility] [address] DO Work Phone: 05-13-2021 11:12-0500 Body mass index (BMI) [Ratio] 34.9 kg/m2 Shaikh Brightwad Work Phone: [facility] [address] DO Work Phone: 05-13-2021 11:12-0500 Body surface area Derived from formula 1.92 m2 Shaikh Brightwad Work Phone: [facility] [address] DO Work Phone: 05-13-2021 11:12-0500 Body weight 89.36 kg Shaikh Lousid Work Phone: [facility] [address] DO Work Phone: 05-13-2021 11:12-0500 Diastolic blood pressure 102 mm[Hg] Shaikh Louisd Work Phone: [facility] [address] DO Work Phone: 05-13-2021 11:12-0500 Heart rate 88 /min Shaikh Louisd Work Phone: [facility] [address] DO Work Phone: 05-13-2021 11:12-0500 Systolic blood pressure 172 mm[Hg] Shaikh Louisd Work Phone: [facility] [address] DO Work Phone: 05-13-2021 11:07-0500 Body height 160.02 cm Shaikh Louisd Work Phone: [facility] [address] DO Work Phone: 05-13-2021 11:07-0500 Body mass index (BMI) [Ratio] 34.9 kg/m2 Shaikh Louisd Work Phone: [facility] [address] DO Work Phone: 05-13-2021 11:07-0500 Body surface area Derived from formula 1.92 m2 Shaikh Brightwad Work Phone: [facility] [address] DO Work Phone: 05-13-2021 11:07-0500 Body weight 89.36 kg Shaikh Louisd Work Phone: [facility] [address] DO Work Phone: 05-13-2021 11:07-0500 Heart rate 88 /min Shaikh Jeison Work Phone: [facility] [address] DO Work Phone: 04-09-2021 11:40-0500 Body height 162.56 cm Juan Carlos Other [facility] Other 04-09-2021 11:40-0500 Body mass index (BMI) [Ratio] 32.44 kg/m2 Juan Gonzalez Other [facility] Other 04-09-2021 11:40-0500 Body weight 85.73 kg Juan Gonzalez Other [facility] Other 04-09-2021 11:40-0500 Diastolic blood pressure 72 mm[Hg] Juan Gonzalez Other [facility] Other 04-09-2021 11:40-0500 Systolic blood pressure 124 mm[Hg] Juan Gonzalez Other [facility] [facility] Other Encounters Encounter Date Encounter Type Care Provider Facility Start: 04-13-2023 Telephone encounter Neena Kamara [facility] Start: 04-13-2023 End: 04-13-2023 ambulatory SHAIKH JEISON [facility] Other Start: 04-06-2023 End: 04-07-2023 ambulatory Radha Dunaway MD Facility:[facility] Start: 03-24-2023 ambulatory Yakelin Staley Facility:[facility] Start: 03-24-2023 End: 03-24-2023 ambulatory MD Shaikh Mchugh Work Phone: [facility] Work Phone: Start: 03-24-2023 End: 03-24-2023 Registered Recurring MD Shaikh Mchugh Work Phone: [facility] Work Phone: Start: 03-11-2023 End: 03-11-2023 ambulatory Alta Sharmaine Other [facility] [employer] Other Start: 03-11-2023 Office outpatient vi sit 25 minutes Alta Sharmaine [facility] [place] Start: 03-04-2023 End: 03-04-2023 ambulatory Alta Sharmaine Facility:[facility] Start: 03-04-2023 End: 03-04-2023 ambulatory MD Shaikh Mchugh Work Phone: [facility] Work Phone: Start: 03-04-2023 End: 03-04-2023 Patient encounter procedure MD Shaikh Mchugh Work Phone: [facility] [place] Work Phone: Start: 12-08-2022 Office outpatient vi sit 15 minutes Shaikh Jeison Work Phone: [facility] [address] [place] Work Phone: Start: 12-08-2022 Patient encounter procedure Shaikh Jeison Work Phone: [facility] [address] DO Work Phone: Start: 12-08-[address] Shashi Cottrell II Facility: Start: 11-10-2022 End: 11-11-2022 ambulatory Radha Dunaway MD Facility: [facility] Start: 10-16-2022 ambulatory SHAIKH Gurjit MCHUGH Facilit y:[facility] Start: 09-18-2022 End: 09-18-2022 ambulatory Alta Sharmaine Facility:[facility] Start: 07-17-2022 End: 07-18-2022 ambulatory SHAIKH Gurjit MCHUGH Facility:[facility] Start: 06-29-2022 Rx Renewal Shaikh Brightwad Work Phone: [facility] [address] DO Work Phone: Start: 06-28-2022 End: 06-29-2022 ambulatory SHAIKH Gurjit GARSIAWAD Facility:[facility] Start: 06-12-[address] ELIGIO HODGE . Faci lity:[facility] Start: 05-27-2022 End: 05-27-[address] ELIGIO HODGE . Facility:[facility] Start: 05-13-2022 End: 05-13-[address] ELIGIO HODGE . Facility:[facility] Start: 04-10-2022 End: 04-11-[address] ELIGIO HODGE . Facility: Start: 02-17-2022 End: 02-18-2022 ambulatory SHAIKH Gurjit HERNADEZD Facility:[facility] Start: 01-10-[address] Shashi Cottrell II Facility: Start: 01-09-2022 End: 01-10-2022 ambulatory SHAIKH Gurjit GARSIAWAD Facility: Start: 11-28-2021 End: 11-29-2021 ambulatory SHAIKH Gurjit HERNADEZD Facility:[facility] Start: 10-17-2021 End: 10-18-2021 ambulatory EVA ROSEN . Facility: Start: 07-01-2021 AUDIT Shaikh Louisd Work Phone: [facility] [address] DO Work Phone: Start: 05-28-2021 FUV, Provider: Shashi Cottrell, Status: Pen, Time: 10:50 AM Shaikh Yaimawwad Work Phone: [facility] [address] DO Work Phone: Start: 05-26-2021 Chart Update Dial Fawwad Work Phone: [facility] [address] DO Work Phone: Start: 05-24-2021 End: 05-24-2021 ambulatory Juan Gonzalez Other [facility] [employer] Other Start: 05-24-2021 Office outpatient vi sit 15 minutes Juan Gonzalez [facility] Start: 05-20-2021 Patient encounter procedure Shaikh Jeison Work Phone: [facility] [address] [place] Work Phone: Start: 05-13-2021 Office consultation new/estab patient 60 min Shaikh Jeison Work Phone: [facility] [address] DO Work Phone: Start: 04-09-2021 End: 04-09-2021 ambulatory Juan Gonzalez Other [place] [employer] Other Start: 04-09-2021 Office outpatient ne w 45 minutes Juan Gonzalez [facility] Procedures Date Procedure Procedure Detail [...] 03-04-2023 Bacteria identified in Urine by Culture [facility] Start: 12-12-2022 FUV, Provider: Shashi Cottrell, Status: Pen, Time: 3:20 PM FUV, Provider: Shashi Cottrell, Status: Pen, Time: 3:20 PM [facility] [address] DO Work Phone: Start: 01-10-2022 FUV, Provider: Shashi Cottrell, Status: Pen, Time: 2:00 PM FUV, Provider: Shashi Cottrell, Status: Pen, Time: 2:00 PM [facility] 250 DO Work Phone: Start: 07-01-2021 FUV, Provider: Shashi Cottrell, Status: Pen, Time: 8:40 AM FUV, Provider: Shashi Cottrell, Status: Pen, Time: 8:40 AM -[facility] [address] [place] Work Phone: Start: 05-28-2021 FUV, Provider: Shashi Cottrell, Status: Pen, Time: 10:50 AM FUV, Provider: Shashi Cottrell, Status: Pen, Time: 10:50 AM [facility] [address] DO Work Phone: Start: 05-20-2021 ECHO, Provider: JACEY [facility]VI ULTRASOUND 01,[id number], Status: Pen, Time: 10:45 AM ECHO, Provider: JACEY [facility] ULTRASOUND 01,[id number], Status: Pen, Time: 10:45 AM [facility] [address] DO Work Phone: [facility] Immunizations Immunization Date Immunization Notes Care Provider Yaima saul 10-20-2020 pneumococcal polysaccharide vaccine, 23 valent Shaikh Jeison Work Phone: [facility] 250 DO Work Phone: 08-23-2020 COVID-19 Vaccine Moderna - Documentation Purposes Only Juan Gonzalez Other [employer] Other 05-04-2020 pneumococcal conjuga te vaccine, 13 valent [facility] Je[facility] Work Phone: Comment on above: Series: 02-03-2020 Influenza, injectabl e, Madin [place] Canine Kidney, preservative free, quadrivalent Shaikh Jeison Work Phone: [facility] 250 DO Work Phone: 02-09-2019 Vaxneuvance 0.5 ML Intramuscular Suspension Prefilled Syringe Shaikh Jeison Work Phone: [facility] [address] DO Work Phone: 04-05-2017 influenza, injectabl e, quadrivalent, preservative free Shaikh Jeison Work Phone: [facility] 250 DO Work Phone: Payers Date Payer Category Payer Self-pay [id number] 2022 Medicaid [id number] 2022 Private Health Insurance 1959 Medicare [id number] 2.16. [id number] 1955 Unknown [id number] 2.16.84 0.1.102987.3.579.2.593 1955 Unknown [id number] 2.16.84 0.1.683947.3.579.2.593 1955 Unknown [id number] 2.16.84 0.1.631295.3.579.2.593 1955 Unknown [id number] 2.16.84 0.1.586379.3.579.2.593 1955 Unknown [id number] 2.16.84 0.1.027142.3.579.2.593 1955 Unknown [id number] 2.16.84 0.1.315455.3.579.2.593 1955 Unknown [id number] 2.16.84 0.1.589062.3.579.2.593 1955 Unknown [id number] 2.16.84 0.1.689175.3.579.2.593 1955 Unknown [id number] 2.16.84 0.1.640301.3.579.2.593 1955 Unknown [id number] 2.16.84 0.1.625915.3.579.2.593 1955 Unknown [id number] 2.16.84 0.1.183101.3.579.2.593 1955 Unknown [id number] 2.16.84 0.1.789903.3.579.2.593 1955 Unknown [id number] 2.16. 840.1.841130.3.579.2.356 1955 Unknown [id number] 2.16. 840.1.435686.3.579.2.356 1955 Unknown [id number] 2.16.840 .1.064750.3.579.2.1259 1955 Unknown [id number] 2.16. 840.1.582289.3.579.2.196 1955 Unknown [id number] 2.16. 840.1.121829.3.579.2.196 Medicare [id number] 2.1 6.840.1.484943.19 Unknown Unknown [id number] 2.16.8 40.1.803021.3.579.2.531 Unknown [id number] 2.16.8 40.1.829324.3.579.2.531 Unknown [id number] 2.16.8 40.1.453884.3.579.2.531 Social History Date Type Detail Facility Daily caffeine consumption Daily caffeine consumption -[facility] DO Work Phone: Comment on above: 2-3 cups of coffee d aily.; 1/2 pack daily.; Sex Assigned At Sex Assigned At [facility] [employer] Other Start: 01-24-2021 End: 03-24-2023 Tobacco smoking status INIS Smoker (finding) [facility] Start: 07-17-1956 Sex Assigned At Female F [facility] Functional Status Date Assessment Result Facility 07-01-2021 PHQ-9 [id number] Mild (5-9) [facility] [place] [facility] 250 DO Work Phone: Clinical Notes 12-03-2019 [...] I have prescribed oral magnesium once daily. [facility] Other 03-16-2023 NotePAIN MANAGEMENT CONSULTATION CONSULTATION DATE: [...] in three months' time unless otherwise indicated.[id number] NoteCONSULTATION CONSULTATION DATE: 04/10/2022 HISTORY OF PRESENT [...] weeks ago, and she completed those in [place]. She is continuing her home exercises as [...] thereafter. Patient does agree with this plan.[facility] [id number] NoteCONSULTATION CONSULTATION DATE: 01/09/2022 HISTORY OF PRESENT [...] weeks. Patient prefers to do this in [place]. She will be followed up in the office in three months' time and was encouraged to take a multivitamin daily. Patient agrees with this plan of care. [facility] [id number] NoteCONSULTATION CONSULTATION DATE: 10/17/2021 HISTORY OF PRESENT [...] in three months' time unless otherwise indicated. [facility] Signed and Approved by: EVA ROSEN . 10/30/2021 16:23:00[facility]06-16-2022 NoteCONSULTATION PROCEDURE DATE:10/17/2021 PREOPERATIVE DIAGNOSIS: Bilateral [...] will be followed up in the office. [facility] Signed and Approved by: EVA ROSEN . 10/30/2021 16:23:00[facility]01-21-2022 Evaluation note* Encounter Date Diagnosis Assessment [...] at this point no intervention is needed. [facility] Other 12-07-2021 Evaluation note* Encounter Date Diagnosis [...] - M50.123) Apr, Cardiomegaly (ICD-10 - I51.7) [facility] Other 01-15-2021 History of Present illness Narrative* [...] she will follow-up after testing is completed [facility] Work Phone: 1(147) 897-147001-10-2021 History of Present illness Narrative* Patient is [...] she will follow-up after testing is completed [facility] [address] DO Work Phone: 1(542) 502-115508-01-2020 History general Narrative - Reported* Type Description Date Medical History TYPE II DIABETES Medical History HYPERTENSION Medical History ENLARGE HEART Surgical History CHOLECYSTECTOMY Hospitalization History PNEUMONIA 12/2019 [employer] [facility] Other chief complaint Narrative - ReportedVIDHYA IBARRA is being seen for a consultation for cardiomegaly.-[facility] DO Work Phone: Chief complaint Narrative - ReportedVIDHYA IBARRA is being seen for a consultation for cardiomegaly.[facility] Work Phone: Consult note Author Yakelin Staley [facility] March 25, 2023 10:10am Note Date/Time March 24, 2023 1:49pm [facility] [place] [address] Hem/Onc Consult Note - OP Signed Patient: Vidhya Ibarra MR#: [id number] : 1955 Acct:[id number] Age/Sex: 67 / F Type: REG RCR [...] any worse than it does when touched. [facility] - Medical History Medical History: Medical History [...] for coordination of care (as documented) and noak-dc-mgip counseling of patient and/or family. Dictated By: Yakelin Staley APRN DD/ 1349 Signed By: <Electronically signed by JOSE Staley> 03/25/23 1010 [facility] Work Phone: Evaluation noteNo assessment information available [facility] Work Phone: Evaluation noteNo InformationNomissouri delta [facility] [employer] Other History of Present illness Narrative* Patient [...] weight loss and more importantly smoking cessation. [facility] [address] DO Work Phone: Summary Purpose [...] Treat Diagnosis 1 Cardiomegaly (I51.7) Referral Organization [facility] urosurgery Referring Provider First Name Juan Referring Provider Last Name Carlos Referring Provider Specialty Neurologica l Surgery Referred Organization [facility] Referred Provider Jason Johnson Referred Address [address],[place], [place],[address] Referred Provider Specialty Cardiac Surg nicholas Referral Priority Routine General Notes Neena Estevez Serene 021 08:49:37 AM >Received today and waiting for office notes to be lockedLeda Estevezn 04/16/2021 03:27:00 PM >[facility] office request us to fax the referral to them and they will review and call patient to schedule their appointment. Referral was fax Reason Evaluate and Treat Diagnosis 1 Cervical disc disord er at C5-C6 level with radiculopathy (M50.122) Referral Organization [facility] urosurgery Referring Provider First Name Juan [...] and content) DATE CREATED AUTHOR 12/03/2019 [facility] DATE CREATED AUTHOR AUTHOR'S ORGANIZ ATION 05/26/2021 [facility] DATE CREATED AUTHOR AUTHOR'S ORGANIZ ATION 10/10/2022 [facility] DATE CREATED AUTHOR AUTHOR'S ORGANIZ ATION 12/08/2022 [facility] DATE CREATED AUTHOR AUTHOR'S ORGANIZ ATION 12/09/2022 [employer] DATE CREATED AUTHOR AUTHOR'S ORGANIZ ATION 03/26/2023 [facility] DATE CREATED AUTHOR AUTHOR'S ORGANIZ ATION 04/14/2023 [facility] DATE CREATED AUTHOR AUTHOR'S ORGANIZ ATION 04/17/2023 [facility] REASON FOR VISIT (unrecogniz ed section and [...] BE BASED ON THE PRIMARY CLINICAL RECORDS. [employer] provides no warranty or guarantee of the accuracy or completeness of information in this document.
--- NOTE | 2023-05-21 09:23 | P.CN_ITS ---
Consult Note: HPI Data of Consult Patient: known to practice within the last 3 years Consult date: 04/16/23 Requesting Physician: Renate Flores NP Primary Care Provider: Shaikh Jeison MD Consult Narrative Reason for consult: f/u Narrative: Vidhya Pillai a pleasant 67 year old female presents for evaluation and jewel gemellen of chronic back pain. Today rating pain 1/10 in low back, stabbing, worse with activity and improved with rest. Pain increases to 5-6/10 with activity.r Patient recently underwent bilateral L4-5 L5-S1 MBB#2 with 80% improvement immediately after and hours following the procedure. Patient would like to proceed with bilateral L4-5 L5-S1 thermal RFA, she has previously had greater than 6 months of relief from thermal RFAs in the bilateral L4-5 L5-S1 facets. cc:: CC: Renate Flores NP Review of Systems ROS Status of ROS 10 or more systems reviewed and unremark able except as noted in history and below Musculoskeletal Reports: back pain PFSH PFSH Medical History Osteoarthritis ?M19.90 - Unspecified osteoarthritis, unspecified site (ICD-10) Low back pain ?M54.50 - Low back pain, unspecified (ICD-10) Numbness and tingling ?R20.0 - Anesthesia of skin (ICD-10) ?R20.2 - Paresthesia of skin (ICD-10) Diabetes ?E11.9 - Type 2 diabetes mellitus without complications (ICD-10) Smoker ?F17.200 - Nicotine dependence, unspecified, uncomplicated (ICD-10) COPD (chronic obstructive pulmonary disease) ?J44.9 - Chronic obstructive pulmonary disease, unspecified (ICD-10) Angina at rest ?I20.8 - Other forms of angina pectoris (ICD-10) Hypertension ?I10 - Essential (primary) hypertension (ICD-10) Surgical History History of cholecystectomy ?Z90.49 - Acquired absence of other specified parts of digestive tract (ICD- 10) S/P dilatation and curettage ?Z98.890 - Other specified postprocedural states (ICD-10) H/O cardiac catheterization ?Z98.890 - Other specified postprocedural states (ICD-10) Meds Home Medications and Allergies Home Medications Medication Instructions Recorded Confirmed Type gabapentin 600 mg tablet 600 mg PO TID 10/16/22 05/11/23 History glipizide 10 mg tablet 10 mg PO BID 10/16/22 05/11/23 History insulin NPH isoph U-100 human 100 20 unit subcut BID 10/16/22 05/11/23 History unit/mL subcutaneous suspension (Novolin N NPH U-100 Insulin isophane) metoprolol tartrate 50 mg tablet 50 mg PO BID 10/16/22 05/11/23 History oxycodone-acetaminophen 5 mg-325 1 tab PO BID 10/16/22 05/11/23 History mg tablet paroxetine HCl 10 mg tablet 10 mg PO DAILY 10/16/22 05/11/23 History pramipexole 0.25 mg tablet 0.25 mg PO DAILY 10/16/22 05/11/23 History (Mirapex) trazodone 150 mg tablet 150 mg PO BEDTIME 10/16/22 05/11/23 History oxycodone-acetaminophen 5 mg-325 1 tab PO BID PRN pain #60 tabs 04/06/23 Rx mg tablet (Percocet) atorvastatin 40 mg tablet (Lipitor) 40 mg PO DAILY 04/16/23 05/11/23 History bumetanide 0.5 mg tablet 0.5 mg PO DAILY 04/16/23 05/11/23 History losartan 100 1 tab PO DAILY 04/16/23 05/11/23 History mg-hydrochlorothiazide 25 mg tablet (Hyzaar) oxycodone-acetaminophen 5 mg-325 1 tab PO BID PRN pain #60 tabs 05/07/23 Rx mg tablet (Endocet) Allergies Allergy/AdvReac Type Severity Reaction Status Date / Time prednisone Allergy Intermediate Rash Verified 05/11/23 09:11 Exam Constitutional Documenting provider has reviewed patient's vital signs: yes Common normals: no apparent distress, oriented x3, healthy appearing, alert and well nourished General appearance: cooperative Orientation/consciousness: Yes awake, Yes oriented to person, Yes oriented to place and Yes oriented to time HENMT Common normals: normocephalic, hearing grossly normal bilaterally and moist oral mucous membranes Head and scalp: normocephalic Eye Common normals: PERRL Pupil: PERRL Neck & C-Spine Common normals: full ROM General: normal visual inspection Chest Common normals: inspection of chest normal Respiratory Common normals: normal respiratory effort, no retractions and no use of accessory muscles Effort & inspection: able to speak in complete sentences and symmetric chest movement Back & Pelvis Common normals: thoracic and lumbar spine normal to inspection and straight leg raise negative bilaterally Lumbar spine/lower back: ROM limited, pain with ROM and straight leg raise negative bilaterally Other: bilateral facet loading Extremity Common normals: normal to inspection and full ROM Neuro Common normals: oriented x3, CN's II-XII intact bilaterally, moves all extremities, no focal motor deficits, no sensory deficits noted and deep tendon reflexes 2+ bilaterally Sensorium/orientation: alert Motor exam: strength 5/5 throughout and no movement abnormalities noted Psych Common normals: mental status grossly normal, thought process normal, cooperative, affect normal, speech normal and activity/motor behavior normal Speech: normal speech Thought process: normal thought process Results Additional Findings Additional findings: I have checked an [place] report on this patient today and there are no rigo rrancies noted in the prescribing history.?? A drug screen was completed and reviewed within the last year, and if there has not been a drug screen completed we ordered one today to monitor higher risk, state monitored pain medication use. As part of providing excellent, safe, comprehensive care, the following was completed at our patient's visit: 1. A medication reconciliation and review to ensure accurate knowledge of current/active medications, including asking our patients to inform us about any [id number] medications or herbal remedies/nutritional supplements/alternative remedies. 2. A review to specifically ensure our patients have had annual screening for: elevated body mass index (BMI), tobacco use, screening for depression, and screening for unhealthy alcohol use. When screening is concerning, patients are provided with education and the specific recommendation to discuss the concerning health issue and treatment options with their primary care provider. Assessment and Plan Assessment and Plan (1) Lumbar spondylosis: Assessment and Plan: The patient has had over 3 months of moderate to severe low back pain with functional impairment and inadequate response to conservative care including NSAIDS (unless there are contraindication such as concurrent blood thinners), multiple oral or topical pain medications, and home exercise program/physical therapy.? Patient has completed >6 weeks of guided home exercise program and/or formal physical therapy program without relief of their symptoms.? I have reviewed the imaging of the lumbar spine and no red flags were identified.? The Oswestry Disability Index was completed, and the patient scored a 54%.? The patient noted the following:?? moderate to severe pain, pain with walking, pain with standing, pain with heavy lifting, pain impacting sleep and social life as well as travel. We discussed the risks and benefits of the procedure with the patient, and we are NOT planning on using sedation as outlined in the guidelines from Medicare unless there is a documented reason that sedation would be strongly recommended.?? ?The procedure will be completed with fluoroscopic guidance.? 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 The patient does not report intolerable side effects. The patient is NOT opioid naive and non-pharmacologic and non-opioid treatment has failed to significantly relieve the patient's pain and improve functionality. The patient has a diagnosis that is related to a somatic or visceral pain etiology. ? ?? I reviewed with the patient the potential risks and side effects with the use of? opioid medications including but not limited to respiratory depression,? sedation, and even . I verified the patient has access to naloxone should? these effects occur. I advised the patient to avoid the use of any other? sedation substances including alcohol, THC, and benzodiazepines while? taking opioid medications due to the risk of compounding side effects and? detrimental outcomes. I reviewed the [employer]QUOR DEPARTMENT MANAGER, pain treatment agreement, urine? drug screen, and opioid start talking forms. The patient was advised to let? their family know they had Naloxone in case they would need to administer? the medication.? ?? A drug screen was completed within the last year, and no aberrancies were noted regarding their use of controlled substances. The patient understands they are subject to the terms and conditions of the pain contract that they have signed. ? ?? I have checked an [place]AR[place] report on this patient today and there are no aberrancies noted in the prescribing history.? (6) Degenerative disc disease: Plan bilateral L4-5 L5-S1 thermal medial branch RFA with 10mg PO valium continue current medications, tolerating without side effects. continues to notice improvement and pain and functional ability narcan previously prescribed f/u 1 month after completion of RFA
== END 2023-05-21 08:46 | disposition home or self-care (01) ==
LOC: PM 08:46
PROVIDERS: PCP Internal Medicine; Visit Provider Nurse Practitioner
DX: M47.816 Spondylosis without myelopathy or radiculopathy, lumbar region (principal); M62.838 Other muscle spasm; M48.062 Spinal stenosis, lumbar region with neurogenic claudication; M89.38 Hypertrophy of bone, other site; Z79.891 Long term (current) use of opiate analgesic; M51.36 Other intervertebral disc degeneration, lumbar region
CPT/HCPCS: G0463

== ENCOUNTER 2023-06-01 07:47 | Day surgery (SDC) | payer MEDICARE, SELFPAY ==
--- OUTSIDE RECORDS SUMMARY | 2023-06-01 07:50 | XMS_ITS | CCD ---
Author Name Unknown Address [address] [place] [address] Organization [facility] Care Team Providers Care Orthodontic Treatment Coordinator Name Role Phone JeisonShaikh Unavailable Unavailable Unavailable Juan Gonzalez Unavailable Unavailable Unavailable NAVEEN ., DR ELIGIO Burns Admitting Unavailable HODGE ., DR ELIGIO Burns Consulting Unavailable HODGE ., DR ELIGIO Burns Attending Unavailable [facility] Primary Care Unavailable JUAN ANTONIO LOMELI Consulting Unavailable HODGE ., DR ELIGIO Burns Admitting Unavailable [facility] Primary Care Unavailable ROSEN ., EVA Consulting Unavailable HODGE ., DR ELIGIO Burns Attending Unavailable HODGE ., DR ELIGIO Burns Admitting Unavailable [facility] Primary Care Unavailable ROSEN ., EVA Consulting Unavailable HODGE ., DR ELIGIO Burns Attending Unavailable [facility] Primary Care Unavailable LAKSHMIPATHY ., NARENDRANATH Admitting Catrina vailable LAKSHMIPATHY ., NARENDSHIRAATH Attending Catrina vailable HODGE ., DR ELIGIO Burns Admitting Unavailable [facility] Primary Care Unavailable ROSEN ., EVA Consulting Unavailable HODGE ., DR ELIGIO Burns Attending Unavailable [facility] Primary Care Unavailable ROSEN ., EVA Consulting Unavailable HODGE ., DR ELIGIO Burns Attending Unavailable HODGE ., DR ELIGIO Burns Admitting Unavailable ROSEN ., EVA Consulting Unavailable HODGE ., DR ELIGIO Burns Admitting Unavailable NEENA MACK Primary Care Unavailable HODGE ., DR ELIGIO Burns Attending Unavailable [facility] Primary Care Unavailable [facility] Consulting Unavailable FAWWAD, DIAL H Attending [...] McGuinn II, Dr. Shashi Salas Referring Unavailable Los ABDUL, Dr. Shashi Salas Attending Unavailable MD Yojana Mchugh Primary Care Provider MD Alta Schmid Attending Provider Sharmaine, Alta Unavailable MD Yojana Mchugh Primary Care Provider MD Alta Schmid Attending Provider JOSE Staley Attending Provider MD Alta Schmid Referring Provider [phone] Sharmaine, Alta Admitting Unavailable Sharmaine, Alta Attending Unavailable [place], Dial Primary Care Unavailable Sharmaine, Alta Admitting Unavailable Sharmaine, Alta Attending Unavailable [place], [facility] Primary Care Unavailable Yakelin Staley Attending Unavail able Sharmaine, Alta Referring Unavailable [place], [facility] Primary Care Unavailable Yakelin Staley Admitting Unavail able Neena Hi Unavailable SHAIKH MCHUGH Attending Unavailable Giwadeitis , Radha Hawkins Attending Unavailable Giwadeitis , Radha Hawkins Attending Unavailable Giwadeitis , Radha Hawkins Attending Unavailable Allergies Allergy Classification Reported Allergen(s) Allergy Type Date of Onset Reaction(s) Facility (14 sources) predniSONE; Translations: [predniSONE] Drug Allergy 1 Hives, Unknown [facility] (2 sources) predniSONE Drug Allergy 5 [facility] Repository (1 source) predniSONE Drug Allergy 1 [facility] Repository Medications Current Medications Medication Drug [...] 2023 2:48pm take 2 tablets by mo [facility] once daily Metoprolol Tartrate 50 MG Oral Tablet TAKE 2 TABLETS DAILY. Quantity: 0 Refills: 0 Ordered: 01-Jul-2021 DO Active take 1 tablet by rafat once daily Metoprolol Tartrate 50 MG Oral [...] 11-28-2021 Episodic Other aftercare (1 source) Other intermediate (current) drug therapy; Translations: [OTH PENITENTIARY CURRENT DRUG THERAPY] Onset: 12-04-2021 Episodic Other [...] Basophils (Bld) [#/Vol] 0.1 10*3/uL Normal 0.0-0.2 [facility] Comment on above: Result Comment: PERF ORMED BY: [place] [address] PATHOLOGIST LEGAL DOCUMENT SPECIALIST SHANTE LOMBARDI M.D. Performed By: #### C BCNO, [id number], PTH, URIC, MG, RENAL, ADDONUAPLUS, CUU, PROCRERAT #### [facility] [address] [place] [address] Basophils/100 WBC (Bld) 0.7 % Normal . F [facility] Comment on above: Performed By: #### C BCNO, [id number], PTH, URIC, MG, RENAL, ADDONUAPLUS, CUU, PROCRERAT #### [facility] [address] [place] [address] Eosinophils (Bld) [#/Vol] 0.4 10*3/uL Normal 0.0-0.45 [facility] Comment on above: Performed By: #### C BCNO, [id number], PTH, URIC, MG, RENAL, ADDONUAPLUS, CUU, PROCRERAT #### [address] Eosinophils/100 WBC (Bld) 2.2 % Normal . [facility] Comment on above: Performed By: #### C BCNO, [id number], PTH, URIC, MG, RENAL, ADDONUAPLUS, CUU, PROCRERAT #### [address] Erythrocyte distribution width (RBC) [Ratio] 14.4 % Normal 11.9-15.3 [facility] Comment on above: Performed By: #### C BCNO, [id number], PTH, URIC, MG, RENAL, ADDONUAPLUS, CUU, PROCRERAT #### [address] Hematocrit (Bld) [Volume fraction] 42.6 % Normal 34.0-46.4 [facility] Comment on above: Performed By: #### C BCNO, [id number], PTH, URIC, MG, RENAL, ADDONUAPLUS, CUU, PROCRERAT #### [address] Hemoglobin (Bld) [Mass/Vol] 14.2 g/dL Normal 11.8-15.4 [facility] Comment on above: Performed By: #### C BCNO, [id number], PTH, URIC, MG, RENAL, ADDONUAPLUS, CUU, PROCRERAT #### [address] Lymphocytes (Bld) [#/Vol] 2.9 10*3/uL Normal 1.00-4.8 [facility] Comment on above: Performed By: #### C BCNO, [id number], PTH, URIC, MG, RENAL, ADDONUAPLUS, CUU, PROCRERAT #### [address] Lymphocytes/100 WBC (Bld) 17.3 % Normal . [facility] Comment on above: Performed By: #### C BCNO, [id number], PTH, URIC, MG, RENAL, ADDONUAPLUS, CUU, PROCRERAT #### [address] MCH (RBC) [Entitic mass] 30.2 pg Normal 24.7-34.3 [facility] Comment on above: Performed By: #### C BCNO, [id number], PTH, URIC, MG, RENAL, ADDONUAPLUS, CUU, PROCRERAT #### [address] MCV (RBC) [Entitic vol] 90.7 fL Normal 80-100 F [facility] Comment on above: Performed By: #### C BCNO, [id number], PTH, URIC, MG, RENAL, ADDONUAPLUS, CUU, PROCRERAT #### [address] Mean Corpuscular HGB Conc 33.3 g/dL Normal 32.0-35.0 [facility] Comment on above: Performed By: #### C BCNO, [id number], PTH, URIC, MG, RENAL, ADDONUAPLUS, CUU, PROCRERAT #### [address] Monocytes (Bld) [#/Vol] 1.1 10*3/uL High 0.0-0.8 [facility] Comment on above: Performed By: #### C BCNO, [id number], PTH, URIC, MG, RENAL, ADDONUAPLUS, CUU, PROCRERAT #### [address] Monocytes/100 WBC (Bld) 6.4 % Normal . [facility] Comment on above: Performed By: #### C BCNO, [id number], PTH, URIC, MG, RENAL, ADDONUAPLUS, CUU, PROCRERAT #### [place] [id number] [place] Neutrophils (Bld) [#/Vol] 12.2 10*3/uL High 1.8-7.7 [facility] Comment on above: Performed By: #### C BCNO, [id number], PTH, URIC, MG, RENAL, ADDONUAPLUS, CUU, PROCRERAT #### [address] Neutrophils/100 WBC (Bld) 73.4 % Normal . [facility] Comment on above: Performed By: #### C BCNO, [id number], PTH, URIC, MG, RENAL, ADDONUAPLUS, CUU, PROCRERAT #### [address] NRBC% 0.1 /100{WBC} Normal 0-0.5 [facility] Comment on above: Performed By: #### C BCNO, [id number], PTH, URIC, MG, RENAL, ADDONUAPLUS, CUU, PROCRERAT #### [address] Platelet mean volume (Bld) [Entitic vol] 8.5 fL Normal 6.3-10.7 [facility] Comment on above: Performed By: #### C BCNO, [id number], PTH, URIC, MG, RENAL, ADDONUAPLUS, CUU, PROCRERAT #### [address] Platelets (Bld) [#/Vol] 302 10*3/uL Normal 150-450 [facility] Comment on above: Performed By: #### C BCNO, [id number], PTH, URIC, MG, RENAL, ADDONUAPLUS, CUU, PROCRERAT #### [address] RBC (Bld) [#/Vol] 4.70 10*6/uL Normal 3.60-5.00 [facility] Comment on above: Performed By: #### C BCNO, [id number], PTH, URIC, MG, RENAL, ADDONUAPLUS, CUU, PROCRERAT #### [facility] [address] WBC (Bld) [#/Vol] 16.7 10*3/uL High 3.8-11.6 [facility] Comment on above: Performed By: #### C BCNO, [id number], PTH, URIC, MG, RENAL, ADDONUAPLUS, CUU, PROCRERAT #### [facility] [address] Albumin [Mass/volume] in Ser um or Plasma by Bromocresol green (BCG) dye binding methoOrdered By: Alta Schmid on 03-04-2023 Albumin BCG dye [Mass/Vol] 4.1 g/dL 3.5-5.7 [facility] Automated erythrocytes count in urine sediment (number/area)Ordered By: Alta Schmid on 03-04-2023 RBC Auto (Urine sed) [#/Area] 0-1 [HPF] 0-4 [facility] Automated leukocytes count i n urine sediment (number/area)Ordered By: Alta Schmid on 03-04-2023 WBC Auto (Urine sed) [#/Area] 5-9 [HPF] 0-4 [facility] Bilirubin Test strip Ql (U)O rdered By: Alta Schmid on 03-04-2023 Bilirubin Ql (U) Negative Negative [facility] Calcium [Mass/volume] in Ser um or PlasmaOrdered By: Alta Schmid on 03-04-2023 Calcium [Mass/Vol] 9.2 mg/dL 8.6-10.3 [facility] Carbon dioxide, total [Moles /volume] in Serum or PlasmaOrdered By: Alta Schmid on 03-04-2023 CO2 [Moles/Vol] 25.4 mmol/L 21.0-31.0 [facility] Chloride [Moles/volume] in S carlos or PlasmaOrdered By: Alta Schmid on 03-04-2023 Chloride [Moles/Vol] 104 mmol/L 98-107 [place] Color Auto (U)Ordered By: Ab richard Schmid on 03-04-2023 Color (U) Yellow Yellow [facility] Creatinine [Mass/volume] in Serum or PlasmaOrdered By: Alta Schmid on 03-04-2023 Creatinine [Mass/Vol] 1.59 mg/dL 0.60-1.20 [facility] Creatinine [Mass/volume] in UrineOrdered By: Alta Schmid on 03-04-2023 Creatinine (U) [Mass/Vol] 100.0 mg/dL 11.0-20.0 [facility] Dipstick and Microscopicon 1 05-04-2022 Appearance (U) Clear Normal Clear [facility] Comment on above: Order Comment: Reaso n for Exam Chronic kidney disease, stage III (moderate);Diabetes mellit Performed By: #### C BCNO, [id number], PTH, URIC, MG, RENAL, ADDONUAPLUS, CUU, PROCRERAT #### [facility] [address] Bacteria,Urine None Seen Normal None Seen [facility] Comment on above: Order Comment: Reaso n for Exam Chronic kidney disease, stage III (moderate);Diabetes mellit Performed By: #### C BCNO, [id number], PTH, URIC, MG, RENAL, ADDONUAPLUS, CUU, PROCRERAT #### [facility] [address] [place] [id number] [place] Bilirubin,Urine Negative Normal Negative [facility] Comment on above: Order Comment: Reaso n for Exam Chronic kidney disease, stage III (moderate);Diabetes mellit Performed By: #### C BCNO, [id number], PTH, URIC, MG, RENAL, ADDONUAPLUS, CUU, PROCRERAT #### [facility] [address] [place] [address] [place] Color (U) Yellow Normal Yellow [facility] Comment on above: Order Comment: Reaso n for Exam Chronic kidney disease, stage III (moderate);Diabetes mellit Performed By: #### C BCNO, [id number], PTH, URIC, MG, RENAL, ADDONUAPLUS, CUU, PROCRERAT #### [address] Glucose Ql (U) Normal Normal Normal [facility] Comment on above: Order Comment: Reaso n for Exam Chronic kidney disease, stage III (moderate);Diabetes mellit Performed By: #### C BCNO, [id number], PTH, URIC, MG, RENAL, ADDONUAPLUS, CUU, PROCRERAT #### [address] Hyaline Casts,Urine 0-8 Normal 0-8 [facility] Comment on above: Order Comment: Reaso n for Exam Chronic kidney disease, stage III (moderate);Diabetes mellit Result Comment: PERF ORMED BY: [place] [address] PATHOLOGIST LEGAL DOCUMENT SPECIALIST SHANTE LOMBARDI M.D. Performed By: #### C BCNO, [id number], PTH, URIC, MG, RENAL, ADDONUAPLUS, CUU, PROCRERAT #### [address] Ketones Ql (U) Negative Normal Negative [facility] Comment on above: Order Comment: Reaso n for Exam Chronic kidney disease, stage III (moderate);Diabetes mellit Performed By: #### C BCNO, [id number], PTH, URIC, MG, RENAL, ADDONUAPLUS, CUU, PROCRERAT #### [address] Leukocyte esterase Test strip Ql (U) 1+ High Negative [facility] Comment on above: Order Comment: Reaso n for Exam Chronic kidney disease, stage III (moderate);Diabetes mellit Performed By: #### C BCNO, [id number], PTH, URIC, MG, RENAL, ADDONUAPLUS, CUU, PROCRERAT #### [address] Nitrite,Urine Negative Normal Negative [facility] Comment on above: Order Comment: Reaso n for Exam Chronic kidney disease, stage III (moderate);Diabetes mellit Performed By: #### C BCNO, [id number], PTH, URIC, MG, RENAL, ADDONUAPLUS, CUU, PROCRERAT #### [address] Occult Blood,Urine Negative Normal Negative [facility] Comment on above: Order Comment: Reaso n for Exam Chronic kidney disease, stage III (moderate);Diabetes mellit Performed By: #### C BCNO, [id number], PTH, URIC, MG, RENAL, ADDONUAPLUS, CUU, PROCRERAT #### [address] pH (U) 5.5 [pH] Normal 5.0-9.0 [facility] Comment on above: Order Comment: Reaso n for Exam Chronic kidney disease, stage III (moderate);Diabetes mellit Performed By: #### C BCNO, [id number], PTH, URIC, MG, RENAL, ADDONUAPLUS, CUU, PROCRERAT #### [address] Protein,Urine Negative Normal Negative [facility] Comment on above: Order Comment: Reaso n for Exam Chronic kidney disease, stage III (moderate);Diabetes mellit Performed By: #### C BCNO, [id number], PTH, URIC, MG, RENAL, ADDONUAPLUS, CUU, PROCRERAT #### [address] RBC LM.HPF (Urine sed) [#/Area] 0 /[HPF] Normal 0-4 [facility] Comment on above: Order Comment: Reaso n for Exam Chronic kidney disease, stage III (moderate);Diabetes mellit Performed By: #### C BCNO, [id number], PTH, URIC, MG, RENAL, ADDONUAPLUS, CUU, PROCRERAT #### [address] Specificy [place],Urine 1.014 Normal 1.001-1.030 [facility] Comment on above: Order Comment: Reaso n for Exam Chronic kidney disease, stage III (moderate);Diabetes mellit Performed By: #### C BCNO, [id number], PTH, URIC, MG, RENAL, ADDONUAPLUS, CUU, PROCRERAT #### [facility] [address] Squamous Epithelial Cell,Urine 5-9 High 0-2 [facility] Comment on above: Order Comment: Reaso n for Exam Chronic kidney disease, stage III (moderate);Diabetes mellit Performed By: #### C BCNO, [id number], PTH, URIC, MG, RENAL, ADDONUAPLUS, CUU, PROCRERAT #### [facility] [address] Urobilinogen,Urine Normal Normal Normal [facility] Comment on above: Order Comment: Reaso n for Exam Chronic kidney disease, stage III (moderate);Diabetes mellit Performed By: #### C BCNO, [id number], PTH, URIC, MG, RENAL, ADDONUAPLUS, CUU, PROCRERAT #### [facility] [address] WBC,Urine 5-9 High 0-4 [facility] Comment on above: Order Comment: Reaso n for Exam Chronic kidney disease, stage III (moderate);Diabetes mellit Performed By: #### C BCNO, [id number], PTH, URIC, MG, RENAL, ADDONUAPLUS, CUU, PROCRERAT #### [facility] [address] [place] [id number] [facility] Erythrocyte distribution wid th Auto (RBC) [Ratio]Ordered By: Alta Schmid on 03-04-2023 Erythrocyte distribution width (RBC) [Ratio] 14.8 % 11.9-15.3 [facility] Glucose [Mass/volume] in Ser um or PlasmaOrdered By: Alta Schmid on 03-04-2023 Glucose [Mass/Vol] 232 mg/dL 70-100 [facility] Comment on above: ADA recommended refe rence rangeRandom Glucose Reference Range is dependent on time and content of last meal. Glucose of more than 200 mg/dL in a nonstressed, ambulatory subject supports the diagnosis of Diabetes Mellitus. Hematocrit Auto (Bld) [Volum e fraction]Ordered By: Alta Schmid on 03-04-2023 Hematocrit (Bld) [Volume fraction] 42.6 % 34.0-46.4 [facility] Hemoglobin [Mass/volume] in BloodOrdered By: Alta Schmid on 03-04-2023 Hemoglobin (Bld) [Mass/Vol] 14.5 g/dL 11.8-15.4 [facility] Hemogram CBC Without Diffon 03-04-2023 Erythrocyte distribution width (RBC) [Ratio] 14.8 % Normal 11.9-15.3 [facility] Comment on above: Order Comment: Reaso n for Exam Chronic kidney disease, stage III (moderate);Diabetes mellit Performed By: #### C BCNO, [id number], PTH, URIC, MG, RENAL, ADDONUAPLUS, CUU, PROCRERAT #### [facility] [address] [place] [address] Hematocrit (Bld) [Volume fraction] 42.6 % Normal 34.0-46.4 [facility] Comment on above: Order Comment: Reaso n for Exam Chronic kidney disease, stage III (moderate);Diabetes mellit Performed By: #### C BCNO, [id number], PTH, URIC, MG, RENAL, ADDONUAPLUS, CUU, PROCRERAT #### [facility] [address] [place] [address] Hemoglobin (Bld) [Mass/Vol] 14.5 g/dL Normal 11.8-15.4 [facility] Comment on above: Order Comment: Reaso n for Exam Chronic kidney disease, stage III (moderate);Diabetes mellit Performed By: #### C BCNO, [id number], PTH, URIC, MG, RENAL, ADDONUAPLUS, CUU, PROCRERAT #### [facility] [address] [place] [address] MCH (RBC) [Entitic mass] 31.1 pg Normal 24.7-34.3 [facility] Comment on above: Order Comment: Reaso n for Exam Chronic kidney disease, stage III (moderate);Diabetes mellit Performed By: #### C BCNO, [id number], PTH, URIC, MG, RENAL, ADDONUAPLUS, CUU, PROCRERAT #### [address] MCV (RBC) [Entitic vol] 91.6 fL Normal 80-100 F [facility] Comment on above: Order Comment: Reaso n for Exam Chronic kidney disease, stage III (moderate);Diabetes mellit Performed By: #### C BCNO, [id number], PTH, URIC, MG, RENAL, ADDONUAPLUS, CUU, PROCRERAT #### [address] Mean Corpuscular HGB Conc 34.0 g/dL Normal 32.0-35.0 [facility] Comment on above: Order Comment: Reaso n for Exam Chronic kidney disease, stage III (moderate);Diabetes mellit Performed By: #### C BCNO, [id number], PTH, URIC, MG, RENAL, ADDONUAPLUS, CUU, PROCRERAT #### [address] Platelet mean volume (Bld) [Entitic vol] 8.5 fL Normal 6.3-10.7 [facility] Comment on above: Order Comment: Reaso n for Exam Chronic kidney disease, stage III (moderate);Diabetes mellit Result Comment: PERF ORMED BY: [place] [address] PATHOLOGIST LEGAL DOCUMENT SPECIALIST SHANTE LOMBARDI M.D. Performed By: #### C BCNO, [id number], PTH, URIC, MG, RENAL, ADDONUAPLUS, CUU, PROCRERAT #### [address] Platelets (Bld) [#/Vol] 327 10*3/uL Normal 150-450 [facility] Comment on above: Order Comment: Reaso n for Exam Chronic kidney disease, stage III (moderate);Diabetes mellit Performed By: #### C BCNO, [id number], PTH, URIC, MG, RENAL, ADDONUAPLUS, CUU, PROCRERAT #### [address] [place] [address] [place] RBC (Bld) [#/Vol] 4.65 10*6/uL Normal 3.60-5.00 [facility] Comment on above: Order Comment: Reaso n for Exam Chronic kidney disease, stage III (moderate);Diabetes mellit Performed By: #### C BCNO, [id number], PTH, URIC, MG, RENAL, ADDONUAPLUS, CUU, PROCRERAT #### [facility] [address] [place] [id number] [facility] WBC (Bld) [#/Vol] 16.2 10*3/uL High 3.8-11.6 [facility] Comment on above: Order Comment: Reaso n for Exam Chronic kidney disease, stage III (moderate);Diabetes mellit Performed By: #### C BCNO, [id number], PTH, URIC, MG, RENAL, ADDONUAPLUS, CUU, PROCRERAT #### [facility] [address] Ketones Auto test strip (U) [Mass/Vol]Ordered By: Alta Schmid on 03-04-2023 Ketones (U) [Mass/Vol] Negative Negative [facility] - UrinalysisOrder ed By: Alta Schmid on 03-04-2023 Hyaline casts LM Ql (Urine sed) 0-8 [LPF] 0-8 [facility] Leukocytes [#/volume] correc janet for nucleated erythrocytes in Blood by Automated counOrdered By: Alta Schmid on 03-04-2023 WBC corrected for nucl RBC Auto (Bld) [#/Vol] 16.2 10*3/uL 3.8-11.6 [facility] MCH Auto (RBC) [Entitic mass ]Ordered By: Alta Schmid on 03-04-2023 MCH (RBC) [Entitic mass] 31.1 pg 24.7-34.3 [facility] MCHC Auto (RBC) [Mass/Vol]Or dered By: Alta Schmid on 03-04-2023 MCHC (RBC) [Mass/Vol] 34.0 g/dL 32.0-35.0 [facility] MCV Auto (RBC) [Entitic vol] Ordered By: Alta Schmid on 03-04-2023 MCV (RBC) [Entitic vol] 91.6 fL 80-100 F [facility] Magnesiumon 03-04-2023 Magnesium [Mass/Vol] 1.4 mg/dL Low 1.9-2.7 [place] Comment on above: Order Comment: Reaso n for Exam Chronic kidney disease, stage III (moderate);Diabetes mellit Performed By: #### C BCNO, [id number], PTH, URIC, MG, RENAL, ADDONUAPLUS, CUU, PROCRERAT #### [address] Magnesium [Mass/volume] in S carlos or PlasmaOrdered By: Alta Schmid on 03-04-2023 Magnesium [Mass/Vol] 1.4 mg/dL 1.9-2.7 [place] Nitrite Test strip Ql (U)Ord ered By: Alta Schmid on 03-04-2023 Nitrite Ql (U) Negative Negative [facility] No Panel InformationOrdered By: Alta Schmid on 03-04-2023 Estimated GFR (CKD-EPI) 35.395 mL/Min [facility] Creatinine Clearance (Chem N/A [facility] Parathyrin.intact [Mass/volu me] in Serum or PlasmaOrdered By: Alta Schmid on 03-04-2023 Parathyrin.intact [Mass/Vol] 87.0 pg/mL [facility] Parathyroid Hormone Intacton 03-04-2023 Parathyroid Hormone Intact 87.0 pg/mL Normal [facility] Comment on above: Order Comment: Reaso n for Exam Chronic kidney disease, stage III (moderate);Diabetes mellit Result Comment: PERF ORMED BY: [facility] [address] [place] [address] PATHOLOGIST LEGAL DOCUMENT SPECIALIST SHANTE LOMBARDI M.D. Performed By: #### C BCNO, [id number], PTH, URIC, MG, RENAL, ADDONUAPLUS, CUU, PROCRERAT #### [facility] [address] Phosphate [Mass/volume] in S carlos or PlasmaOrdered By: Alta Schmid on 03-04-2023 Phosphate [Mass/Vol] 4.0 mg/dL 3.7-7.2 [place] Platelet mean volume Auto (B ld) [Entitic vol]Ordered By: Alta Schmid on 03-04-2023 Platelet mean volume (Bld) [Entitic vol] 8.5 fL 6.3-10.7 [facility] Platelets Auto (Bld) [#/Vol] Ordered By: Alta Schmid on 03-04-2023 Platelets (Bld) [#/Vol] 327 10*3/uL 150-450 [facility] Potassium [Moles/volume] in Serum or PlasmaOrdered By: Alta Schmid on 03-04-2023 Potassium [Moles/Vol] 4.9 mmol/L 3.5-5.1 [facility] Protein Auto test strip (U) [Mass/Vol]Ordered By: Alta Schmid on 03-04-2023 Protein (U) [Mass/Vol] Negative Negative [facility] Protein Creat Ratio Ur Rando mon 03-04-2023 Creatinine, Urine (Random) 100.0 mg/dL High 11.0-20.0 [facility] Comment on above: Order Comment: Reaso n for Exam Chronic kidney disease, stage III (moderate);Diabetes mellit Performed By: #### P ROCRERAT #### [facility] [address] Protein (U) [Mass/Vol] 14 mg/dL High 0-9 [facility] Comment on above: Order Comment: Reaso n for Exam Chronic kidney disease, stage III (moderate);Diabetes mellit Performed By: #### P ROCRERAT #### [facility] [address] [place] [id number] [facility] Urine Protein/Creatinine Ratio 140 mg/g{Cre} Normal 0-200 [facility] Comment on above: Order Comment: Reaso n for Exam Chronic kidney disease, stage III (moderate);Diabetes mellit Result Comment: PERF ORMED BY: [place] [address] PATHOLOGIST LEGAL DOCUMENT SPECIALIST SHANTE LOMBARDI M.D. Performed By: #### P ROCRERAT #### [facility] [address] [place] [address] Protein [Mass/volume] in Uri neOrdered By: Alta Sharmaine on 03-04-2023 Protein (U) [Mass/Vol] 14 mg/dL 0-9 [facility] RBC Auto (Bld) [#/Vol]Ordere d By: Alta Sharmaine on 03-04-2023 RBC (Bld) [#/Vol] 4.65 10*6/uL 3.60-5.00 [facility] Renal Function Panelon 03-04 Albumin [Mass/Vol] 4.1 g/dL Normal 3.5-5.7 [facility] Comment on above: Order Comment: Reaso n for Exam Chronic kidney disease, stage III (moderate);Diabetes mellit Performed By: #### C BCNO, [id number], PTH, URIC, MG, RENAL, ADDONUAPLUS, CUU, PROCRERAT #### [facility] [address] [place] [address] Anion gap [Moles/Vol] 13.5 mmol/L Normal 6.0-15.0 [facility] Comment on above: Order Comment: Reaso n for Exam Chronic kidney disease, stage III (moderate);Diabetes mellit Performed By: #### C BCNO, [id number], PTH, URIC, MG, RENAL, ADDONUAPLUS, CUU, PROCRERAT #### [facility] [address] [place] [address] [place] Calcium [Mass/Vol] 9.2 mg/dL Normal 8.6-10.3 [facility] Comment on above: Order Comment: Reaso n for Exam Chronic kidney disease, stage III (moderate);Diabetes mellit Performed By: #### C BCNO, [id number], PTH, URIC, MG, RENAL, ADDONUAPLUS, CUU, PROCRERAT #### [facility] [address] [id number] [place] Chloride [Moles/Vol] 104 mmol/L Normal 98-107 [place] Comment on above: Order Comment: Reaso n for Exam Chronic kidney disease, stage III (moderate);Diabetes mellit Performed By: #### C BCNO, [id number], PTH, URIC, MG, RENAL, ADDONUAPLUS, CUU, PROCRERAT #### [facility] [address] [id number] [facility] CO2 [Moles/Vol] 25.4 mmol/L Normal 21.0-31.0 [facility] Comment on above: Order Comment: Reaso n for Exam Chronic kidney disease, stage III (moderate);Diabetes mellit Performed By: #### C BCNO, [id number], PTH, URIC, MG, RENAL, ADDONUAPLUS, CUU, PROCRERAT #### [facility] [address] Creatinine [Mass/Vol] 1.59 mg/dL High 0.60-1.20 [facility] Comment on above: Order Comment: Reaso n for Exam Chronic kidney disease, stage III (moderate);Diabetes mellit Performed By: #### C BCNO, [id number], PTH, URIC, MG, RENAL, ADDONUAPLUS, CUU, PROCRERAT #### [facility] [address] GFR/1.73 sq M.predicted MDRD (S/P/Bld) [Vol rate/Area] 35.395 mL/min/{1.73_m2} Normal [facility] Comment on above: Order Comment: Reaso n for Exam Chronic kidney disease, stage III (moderate);Diabetes mellit Performed By: #### C BCNO, [id number], PTH, URIC, MG, RENAL, ADDONUAPLUS, CUU, PROCRERAT #### [facility] [address] [id number] [facility] Glucose [Mass/Vol] 232 mg/dL High 70-100 [facility] Comment on above: Order Comment: Reaso n for Exam Chronic kidney disease, stage III (moderate);Diabetes mellit Result Comment: [facility] Glucose Reference Range is dependent on time and content of last meal. Glucose of more than 200 mg/dL in a nonstressed, ambulatory subject supports the diagnosis of Diabetes Mellitus. ADA recommended reference range Performed By: #### C BCNO, [id number], PTH, URIC, MG, RENAL, ADDONUAPLUS, CUU, PROCRERAT #### [facility] [address] Phosphate [Mass/Vol] 4.0 mg/dL Normal 3.7-7.2 [place] Comment on above: Order Comment: Reaso n for Exam Chronic kidney disease, stage III (moderate);Diabetes mellit Performed By: #### C BCNO, [id number], PTH, URIC, MG, RENAL, ADDONUAPLUS, CUU, PROCRERAT #### [facility] [address] Potassium [Moles/Vol] 4.9 mmol/L Normal 3.5-5.1 [facility] Comment on above: Order Comment: Reaso n for Exam Chronic kidney disease, stage III (moderate);Diabetes mellit Performed By: #### C BCNO, [id number], PTH, URIC, MG, RENAL, ADDONUAPLUS, CUU, PROCRERAT #### [facility] [address] [place], [place] [id number] [facility] Sodium [Moles/Vol] 138 mmol/L Normal 136-145 [facility] Comment on above: Order Comment: Reaso n for Exam Chronic kidney disease, stage III (moderate);Diabetes mellit Performed By: #### C BCNO, [id number], PTH, URIC, MG, RENAL, ADDONUAPLUS, CUU, PROCRERAT #### [facility] [address] [id number] [place] Urea nitrogen [Mass/Vol] 42 mg/dL High 7-25 [facility] Comment on above: Order Comment: Reaso n for Exam Chronic kidney disease, stage III (moderate);Diabetes mellit Performed By: #### C BCNO, [id number], PTH, URIC, MG, RENAL, ADDONUAPLUS, CUU, PROCRERAT #### [facility] [address] Serum or plasma anion gap de terminationOrdered By: Alta Sharmaine on 03-04-2023 Anion gap [Moles/Vol] 13.5 mmol/L 6.0-15.0 [facility] Sodium [Moles/volume] in Ser um or PlasmaOrdered By: Alta Sharmaine on 03-04-2023 Sodium [Moles/Vol] 138 mmol/L 136-145 [facility] Specific gravity Auto test s trip (U) [Rel density]Ordered By: Alta Sharmaine on 03-04-2023 Specific gravity (U) [Rel density] 1.014 1.001-1.030 [facility] Squamous epithelial cells de tection in urine sediment by light microscopyOrdered By: Alta Sharmaine on 03-04-2023 Epithelial cells.squamous LM Ql (Urine sed) 5-9 [HPF] 0-2 [facility] Urate [Mass/volume] in Serum or PlasmaOrdered By: Alta Sharmaine on 03-04-2023 Urate [Mass/Vol] 10.7 mg/dL 2.3-6.6 [facility] Urea nitrogen [Mass/volume] in Serum or PlasmaOrdered By: Alta Sharmaine on 03-04-2023 Urea nitrogen [Mass/Vol] 42 mg/dL 7-25 [facility] Uric Acidon 03-04-2023 Urate [Mass/Vol] 10.7 mg/dL High 2.3-6.6 [facility] Comment on above: Order Comment: Reaso n for Exam Chronic kidney disease, stage III (moderate);Diabetes mellit Performed By: #### C BCNO, [id number], PTH, URIC, MG, RENAL, ADDONUAPLUS, CUU, PROCRERAT #### [facility] [address] Urine Cultureon 03-04-2023 Bacteria identified Cx Nom (U) 75,000 colonies/ml mixed bacterial skin contaminants 2 Days PERFORMED BY: [place] [address] PATHOLOGIST LEGAL DOCUMENT SPECIALIST SHANTE LOMBARDI M.D. Normal [facility] Comment on above: Performed By: #### C BCNO, [id number], PTH, URIC, MG, RENAL, ADDONUAPLUS, CUU, PROCRERAT #### [address] Urine bacteria detection by automated methodOrdered By: Alta Schmid on 03-04-2023 Bacteria Auto Ql (U) None seen None Seen [place] Urine clarity by refractomet ry automatedOrdered By: Alta Schmid on 03-04-2023 Clarity Refractometry automated (U) Clear Clear [facility] Urine culture routineOrdered By: Alta Schmid on 03-04-2023 Bacteria identified Cx Nom (U) [address] [facility] Urine glucose measurement by automated test strip (mass/volume)Ordered By: Alta Schmid on 03-04-2023 Glucose Auto test strip (U) [Mass/Vol] Normal mg/dL Normal [facility] Urine hemoglobin detection b y automated test stripOrdered By: Alta Schmid on 03-04-2023 Hemoglobin Auto test strip Ql (U) Negative Negative [facility] Urine leukocyte esterase det ection by automated test stripOrdered By: Alta Schmid on 03-04-2023 Leukocyte esterase Auto test strip Ql (U) 1+ Negative [facility] Urine protein/creatinine rat ioOrdered By: Alta Schmid on 03-04-2023 Protein/Creatinine (U) [Ratio] 140 mg/g{Cre} 0-200 [facility] Urobilinogen Auto test strip (U) [Mass/Vol]Ordered By: Alta Schmid on 03-04-2023 Urobilinogen (U) [Mass/Vol] Normal mg/dL Normal [facility] Vitamin D 25 Hydroxy Totalon 03-04-2023 Vitamin D 25 Hydroxy Total 41.9 ng/mL Normal 30-100 [facility] Comment on above: Order Comment: Reaso n for Exam Chronic kidney disease, stage III (moderate);Diabetes mellit Result Comment: DEBORAH MIN D STATUS 25(OH)VITAMIN D RANGE (ng/mL) Deficient <20 Insufficient 20 to <30 Sufficient 30 to 100 Reference: Isai Rich, Randa WALSH, et al. Evaluation,treatment, and prevention of vitamin D deficiency; an Endocrine Society clinical practice guideline. JCEM. 2010; 96(7):1911-. PERFORMED BY: [facility] [address] [place] [address] PATHOLOGIST LEGAL DOCUMENT SPECIALIST SHANTE LOMBARDI M.D. Performed By: #### C BCNO, [id number], PTH, URIC, MG, RENAL, ADDONUAPLUS, CUU, PROCRERAT #### [facility] [address] Vitamin D+Metabolites [Mass/ volume] in Serum or PlasmaOrdered By: Alta Schmid on 03-04-2023 Vitamin D+Metabolites [Mass/Vol] 41.9 ng/mL 30-100 [facility] Comment on above: VITAMIN D STATUS 25( [place])VITAMIN D RANGE (ng/mL) Deficient <20 Insufficient 20 to <30Sufficient 30 to 100Reference: Isai Rich, Randa WALSH, et al. Evaluation,treatment, and prevention of vitamin D deficiency; an Endocrine Society clinical practice guideline. JCEM. 2010; 96(7):1911-30. pH Auto test strip (U)Ordere d By: Alta Schmid on 03-04-2023 pH (U) 5.5 [pH] 5.0-9.0 [facility] Office Visit (Cardiology)on 12-08-2022 Follow-up visit Diagnoses/Problems Assessed Hypertension (401.9) (I10) Current smoker (305.1) (F17.200) 1/2 pack daily. Diabetes (250.00) (E11.9) Class 1 obesity with body mass index (BMI) of 32.0 to 32.9 in adult (278.00,V85.32) (E66.9,Z68.32) Orders Class 1 obesity with body mass index (BMI) of 32.0 to 32.9 in adult Healthy Weight Tips; Status:Complete; Done: [id number] Some eating tips that can help you lose weight.; Status:Complete; Done: 37Ngc7742 SocHx: Current smoker Tobacco Use Screening; Status:Complete; Done: 93Gci1419 You need to stop smoking. Though it is not easy, more than half of all adult smokers have quit. We encourage you to write down all the reasons you should quit smoking and set a quit date for yourself. Ask us how we can help. You may also call [phone] for free resources and assistance.; Status:Complete; Done: 26Loz6080 Patient Instructions Please bring all medicines, vitamins, [...] negative for complaint. Vitals Vital Signs Recorded: [id number] 08:41AM Heart Rate66, R Radial Oouaprws763, RUE, Sitting Gabvvojgw63, RUE, Sitting Height5 ft 3 in Vbsnsb621 lb BMI Htnnxcajxj83.95 kg/m2 BSA Calculated1.88 Tobacco Usea) Yes Patient [...] JVP w (more content not included)... Normal [facility] Tobacco Screening.on 023 Fall risk assessment a) No falls within the last year -[facility] [facility] 250 DO Work Phone: Tobacco use status CPHS a) Yes M P-[facility] [facility] 250 DO Work Phone: Tobacco Screening. Yes -[facility] [facility] 250 DO Work Phone: Dipstick and Microscopicon 0 09-18-2022 Appearance (U) Cloudy Critically abnormal Clear [facility] Comment on above: Order Comment: Reaso n for Exam Chronic kidney disease, stage III (moderate);Diabetes mellit Name Collection Type:: Clean-Voided Midstream Performed By: #### C BCNO, [id number], PTH, URIC, MG, RENAL, ADDONUAPLUS, CUU, PROCRERAT #### [facility] [address] [id number] [place] Bacteria,Urine 4+ High None Seen [facility] Comment on above: Order Comment: Reaso n for Exam Chronic kidney disease, stage III (moderate);Diabetes mellit Name Collection Type:: Clean-Voided Midstream Performed By: #### C BCNO, [id number], PTH, URIC, MG, RENAL, ADDONUAPLUS, CUU, PROCRERAT #### [facility] [address] [place] [address] [place] Bilirubin,Urine Negative Normal Negative [facility] Comment on above: Order Comment: Reaso n for Exam Chronic kidney disease, stage III (moderate);Diabetes mellit Name Collection Type:: Clean-Voided Midstream Performed By: #### C BCNO, [id number], PTH, URIC, MG, RENAL, ADDONUAPLUS, CUU, PROCRERAT #### [facility] [address] [id number] [place] Color (U) Yellow Normal Yellow [facility] Comment on above: Order Comment: Reaso n for Exam Chronic kidney disease, stage III (moderate);Diabetes mellit Name Collection Type:: Clean-Voided Midstream Performed By: #### C BCNO, [id number], PTH, URIC, MG, RENAL, ADDONUAPLUS, CUU, PROCRERAT #### [facility] [address] Glucose Ql (U) Normal Normal Normal [facility] Comment on above: Order Comment: Reaso n for Exam Chronic kidney disease, stage III (moderate);Diabetes mellit Name Collection Type:: Clean-Voided Midstream Performed By: #### C BCNO, [id number], PTH, URIC, MG, RENAL, ADDONUAPLUS, CUU, PROCRERAT #### [facility] [address] Hyaline Casts,Urine 9-19 High 0-8 [facility] Comment on above: Order Comment: Reaso n for Exam Chronic kidney disease, stage III (moderate);Diabetes mellit Name Collection Type:: Clean-Voided Midstream Result Comment: PERF ORMED BY: [place] [address] PATHOLOGIST LEGAL DOCUMENT SPECIALIST SHANTE LOMBARDI M.D. Performed By: #### C BCNO, [id number], PTH, URIC, MG, RENAL, ADDONUAPLUS, CUU, PROCRERAT #### [address] Ketones Ql (U) Negative Normal Negative [facility] Comment on above: Order Comment: Reaso n for Exam Chronic kidney disease, stage III (moderate);Diabetes mellit Name Collection Type:: Clean-Voided Midstream Performed By: #### C BCNO, [id number], PTH, URIC, MG, RENAL, ADDONUAPLUS, CUU, PROCRERAT #### [facility] [address] [place] [address] Leukocyte esterase Test strip Ql (U) 3+ High Negative [facility] Comment on above: Order Comment: Reaso n for Exam Chronic kidney disease, stage III (moderate);Diabetes mellit Name Collection Type:: Clean-Voided Midstream Performed By: #### C BCNO, [id number], PTH, URIC, MG, RENAL, ADDONUAPLUS, CUU, PROCRERAT #### [facility] [address] [place] [address] Nitrite,Urine Positive High Negative [facility] Comment on above: Order Comment: Reaso n for Exam Chronic kidney disease, stage III (moderate);Diabetes mellit Name Collection Type:: Clean-Voided Midstream Performed By: #### C BCNO, [id number], PTH, URIC, MG, RENAL, ADDONUAPLUS, CUU, PROCRERAT #### [facility] [address] [place] [address] Occult Blood,Urine Negative Normal Negative [facility] Comment on above: Order Comment: Reaso n for Exam Chronic kidney disease, stage III (moderate);Diabetes mellit Name Collection Type:: Clean-Voided Midstream Performed By: #### C BCNO, [id number], PTH, URIC, MG, RENAL, ADDONUAPLUS, CUU, PROCRERAT #### [facility] [address] [place] [address] pH (U) 6.0 [pH] Normal 5.0-9.0 [facility] Comment on above: Order Comment: Reaso n for Exam Chronic kidney disease, stage III (moderate);Diabetes mellit Name Collection Type:: Clean-Voided Midstream Performed By: #### C BCNO, [id number], PTH, URIC, MG, RENAL, ADDONUAPLUS, CUU, PROCRERAT #### [facility] [address] [place] [address] Protein,Urine Negative Normal Negative [facility] Comment on above: Order Comment: Reaso n for Exam Chronic kidney disease, stage III (moderate);Diabetes mellit Name Collection Type:: Clean-Voided Midstream Performed By: #### C BCNO, [id number], PTH, URIC, MG, RENAL, ADDONUAPLUS, CUU, PROCRERAT #### [facility] [address] [place] [address] RBC,Urine None Seen Normal 0-4 [facility] Comment on above: Order Comment: Reaso n for Exam Chronic kidney disease, stage III (moderate);Diabetes mellit Name Collection Type:: Clean-Voided Midstream Performed By: #### C BCNO, [id number], PTH, URIC, MG, RENAL, ADDONUAPLUS, CUU, PROCRERAT #### [facility] [address] [place] [address] Specificy [place],Urine 1.013 Normal 1.001-1.030 [facility] Comment on above: Order Comment: Reaso n for Exam Chronic kidney disease, stage III (moderate);Diabetes mellit Name Collection Type:: Clean-Voided Midstream Performed By: #### C BCNO, [id number], PTH, URIC, MG, RENAL, ADDONUAPLUS, CUU, PROCRERAT #### [facility] [address] [place] [address] Squamous Epithelial Cell,Urine 1-2 Normal 0-2 [facility] Comment on above: Order Comment: Reaso n for Exam Chronic kidney disease, stage III (moderate);Diabetes mellit Name Collection Type:: Clean-Voided Midstream Performed By: #### C BCNO, [id number], PTH, URIC, MG, RENAL, ADDONUAPLUS, CUU, PROCRERAT #### [facility] [address] [place] [address] Urobilinogen,Urine Normal Normal Normal [facility] Comment on above: Order Comment: Reaso n for Exam Chronic kidney disease, stage III (moderate);Diabetes mellit Name Collection Type:: Clean-Voided Midstream Performed By: #### C BCNO, [id number], PTH, URIC, MG, RENAL, ADDONUAPLUS, CUU, PROCRERAT #### [facility] [address] [place] [address] WBC,Urine 50-100 High 0-4 [facility] Comment on above: Order Comment: Reaso n for Exam Chronic kidney disease, stage III (moderate);Diabetes mellit Name Collection Type:: Clean-Voided Midstream Performed By: #### C BCNO, [id number], PTH, URIC, MG, RENAL, ADDONUAPLUS, CUU, PROCRERAT #### [facility] [address] [place] [address] Hemogram CBC Without Diffon 09-18-2022 Erythrocyte distribution width (RBC) [Ratio] 15.4 % High 11.9-15.3 [facility] Comment on above: Order Comment: Reaso n for Exam Chronic kidney disease, stage III (moderate);Diabetes mellit Performed By: #### C BCNO, [id number], PTH, URIC, MG, RENAL, ADDONUAPLUS, CUU, PROCRERAT #### [address] Hematocrit (Bld) [Volume fraction] 41.9 % Normal 34.0-46.4 [facility] Comment on above: Order Comment: Reaso n for Exam Chronic kidney disease, stage III (moderate);Diabetes mellit Performed By: #### C BCNO, [id number], PTH, URIC, MG, RENAL, ADDONUAPLUS, CUU, PROCRERAT #### [facility] [address] [place] [address] Hemoglobin (Bld) [Mass/Vol] 14.2 g/dL Normal 11.8-15.4 [facility] Comment on above: Order Comment: Reaso n for Exam Chronic kidney disease, stage III (moderate);Diabetes mellit Performed By: #### C BCNO, [id number], PTH, URIC, MG, RENAL, ADDONUAPLUS, CUU, PROCRERAT #### [address] MCH (RBC) [Entitic mass] 30.8 pg Normal 24.7-34.3 [facility] Comment on above: Order Comment: Reaso n for Exam Chronic kidney disease, stage III (moderate);Diabetes mellit Performed By: #### C BCNO, [id number], PTH, URIC, MG, RENAL, ADDONUAPLUS, CUU, PROCRERAT #### [address] MCV (RBC) [Entitic vol] 90.9 fL Normal 80-100 F [facility] Comment on above: Order Comment: Reaso n for Exam Chronic kidney disease, stage III (moderate);Diabetes mellit Performed By: #### C BCNO, [id number], PTH, URIC, MG, RENAL, ADDONUAPLUS, CUU, PROCRERAT #### [facility] [address] [place] [address] Mean Corpuscular HGB Conc 33.9 g/dL Normal 32.0-35.0 [facility] Comment on above: Order Comment: Reaso n for Exam Chronic kidney disease, stage III (moderate);Diabetes mellit Performed By: #### C BCNO, [id number], PTH, URIC, MG, RENAL, ADDONUAPLUS, CUU, PROCRERAT #### [address] Platelet mean volume (Bld) [Entitic vol] 8.6 fL Normal 6.3-10.7 [facility] Comment on above: Order Comment: Reaso n for Exam Chronic kidney disease, stage III (moderate);Diabetes mellit Result Comment: PERF ORMED BY: [place] [address] PATHOLOGIST LEGAL DOCUMENT SPECIALIST SAHNTE LOMBARDI M.D. Performed By: #### C BCNO, [id number], PTH, URIC, MG, RENAL, ADDONUAPLUS, CUU, PROCRERAT #### [address] Platelets (Bld) [#/Vol] 272 10*3/uL Normal 150-450 [facility] Comment on above: Order Comment: Reaso n for Exam Chronic kidney disease, stage III (moderate);Diabetes mellit Performed By: #### C BCNO, [id number], PTH, URIC, MG, RENAL, ADDONUAPLUS, CUU, PROCRERAT #### [address] RBC (Bld) [#/Vol] 4.61 10*6/uL Normal 3.60-5.00 [facility] Comment on above: Order Comment: Reaso n for Exam Chronic kidney disease, stage III (moderate);Diabetes mellit Performed By: #### C BCNO, [id number], PTH, URIC, MG, RENAL, ADDONUAPLUS, CUU, PROCRERAT #### [facility] [address] WBC (Bld) [#/Vol] 14.0 10*3/uL High 3.8-11.6 [facility] Comment on above: Order Comment: Reaso n for Exam Chronic kidney disease, stage III (moderate);Diabetes mellit Performed By: #### C BCNO, [id number], PTH, URIC, MG, RENAL, ADDONUAPLUS, CUU, PROCRERAT #### [facility] [address] Magnesiumon 09-18-2022 Magnesium [Mass/Vol] 1.9 mg/dL Normal 1.9-2.7 [place] Comment on above: Order Comment: Reaso n for Exam Chronic kidney disease, stage III (moderate);Diabetes mellit Performed By: #### C BCNO, [id number], PTH, URIC, MG, RENAL, ADDONUAPLUS, CUU, PROCRERAT #### [facility] [address] Parathyroid Hormone Intacton 09-18-2022 Parathyroid Hormone Intact 33.9 pg/mL Normal 12-88 [facility] Comment on above: Order Comment: Reaso n for Exam Chronic kidney disease, stage III (moderate);Diabetes mellit Result Comment: PERF ORMED BY: [place] [address] PATHOLOGIST LEGAL DOCUMENT SPECIALIST SHANTE LOMBARDI M.D. Performed By: #### C BCNO, [id number], PTH, URIC, MG, RENAL, ADDONUAPLUS, CUU, PROCRERAT #### [facility] [address] Protein Creat Ratio Ur Rando mon 09-18-2022 Creatinine, Urine (Random) 101.0 mg/dL High 11.0-20.0 [facility] Comment on above: Order Comment: Reaso n for Exam Chronic kidney disease, stage III (moderate);Diabetes mellit Performed By: #### C BCNO, [id number], PTH, URIC, MG, RENAL, ADDONUAPLUS, CUU, PROCRERAT #### [facility] [address] Protein (U) [Mass/Vol] 10 mg/dL High 0-9 [facility] Comment on above: Order Comment: Reaso n for Exam Chronic kidney disease, stage III (moderate);Diabetes mellit Performed By: #### C BCNO, [id number], PTH, URIC, MG, RENAL, ADDONUAPLUS, CUU, PROCRERAT #### [facility] [address] Urine Protein/Creatinine Ratio 99 mg/g{Cre} Normal 0-200 [facility] Comment on above: Order Comment: Reaso n for Exam Chronic kidney disease, stage III (moderate);Diabetes mellit Result Comment: PERF ORMED BY: [place] [address] PATHOLOGIST LEGAL DOCUMENT SPECIALIST SHANTE LOMBARDI M.D. Performed By: #### C BCNO, [id number], PTH, URIC, MG, RENAL, ADDONUAPLUS, CUU, PROCRERAT #### [facility] [address] [place] [address] Renal Function Panelon 09-18 Albumin [Mass/Vol] 3.9 g/dL Normal 3.5-5.7 [facility] Comment on above: Order Comment: Reaso n for Exam Chronic kidney disease, stage III (moderate);Diabetes mellit Performed By: #### C BCNO, [id number], PTH, URIC, MG, RENAL, ADDONUAPLUS, CUU, PROCRERAT #### [facility] [address] [place] [address] Anion gap [Moles/Vol] 14.0 mmol/L Normal 6.0-15.0 [facility] Comment on above: Order Comment: Reaso n for Exam Chronic kidney disease, stage III (moderate);Diabetes mellit Performed By: #### C BCNO, [id number], PTH, URIC, MG, RENAL, ADDONUAPLUS, CUU, PROCRERAT #### [facility] [address] [id number] [facility] Calcium [Mass/Vol] 10.0 mg/dL Normal 8.6-10.3 [facility] Comment on above: Order Comment: Reaso n for Exam Chronic kidney disease, stage III (moderate);Diabetes mellit Performed By: #### C BCNO, [id number], PTH, URIC, MG, RENAL, ADDONUAPLUS, CUU, PROCRERAT #### [facility] [address] [id number] [facility] Chloride [Moles/Vol] 101 mmol/L Normal 98-107 [place] Comment on above: Order Comment: Reaso n for Exam Chronic kidney disease, stage III (moderate);Diabetes mellit Performed By: #### C BCNO, [id number], PTH, URIC, MG, RENAL, ADDONUAPLUS, CUU, PROCRERAT #### [facility] [address] [id number] [facility] CO2 [Moles/Vol] 27.9 mmol/L Normal 21.0-31.0 [facility] Comment on above: Order Comment: Reaso n for Exam Chronic kidney disease, stage III (moderate);Diabetes mellit Performed By: #### C BCNO, [id number], PTH, URIC, MG, RENAL, ADDONUAPLUS, CUU, PROCRERAT #### [facility] [address] Creatinine [Mass/Vol] 1.78 mg/dL High 0.60-1.20 [facility] Comment on above: Order Comment: Reaso n for Exam Chronic kidney disease, stage III (moderate);Diabetes mellit Performed By: #### C BCNO, [id number], PTH, URIC, MG, RENAL, ADDONUAPLUS, CUU, PROCRERAT #### [facility] [address] [id number] [place] GFR/1.73 sq M.predicted MDRD (S/P/Bld) [Vol rate/Area] 31.104 mL/min/{1.73_m2} Normal [facility] Comment on above: Order Comment: Reaso n for Exam Chronic kidney disease, stage III (moderate);Diabetes mellit Performed By: #### C BCNO, [id number], PTH, URIC, MG, RENAL, ADDONUAPLUS, CUU, PROCRERAT #### [facility] [address] Glucose [Mass/Vol] 167 mg/dL High 70-100 [facility] Comment on above: Order Comment: Reaso n for Exam Chronic kidney disease, stage III (moderate);Diabetes mellit Result Comment: [facility] Glucose Reference Range is dependent on time and content of last meal. Glucose of more than 200 mg/dL in a nonstressed, ambulatory subject supports the diagnosis of Diabetes Mellitus. ADA recommended reference range Performed By: #### C BCNO, [id number], PTH, URIC, MG, RENAL, ADDONUAPLUS, CUU, PROCRERAT #### [facility] [address] Phosphate [Mass/Vol] 4.4 mg/dL Normal 3.7-7.2 [place] Comment on above: Order Comment: Reaso n for Exam Chronic kidney disease, stage III (moderate);Diabetes mellit Performed By: #### C BCNO, [id number], PTH, URIC, MG, RENAL, ADDONUAPLUS, CUU, PROCRERAT #### [facility] [address] [place] [id number] [facility] Potassium [Moles/Vol] 4.9 mmol/L Normal 3.5-5.1 [facility] Comment on above: Order Comment: Reaso n for Exam Chronic kidney disease, stage III (moderate);Diabetes mellit Performed By: #### C BCNO, [id number], PTH, URIC, MG, RENAL, ADDONUAPLUS, CUU, PROCRERAT #### [facility] [address] [place] [id number] [facility] Sodium [Moles/Vol] 138 mmol/L Normal 136-145 [facility] Comment on above: Order Comment: Reaso n for Exam Chronic kidney disease, stage III (moderate);Diabetes mellit Performed By: #### C BCNO, [id number], PTH, URIC, MG, RENAL, ADDONUAPLUS, CUU, PROCRERAT #### [facility] [address] [place] [id number] [place] Urea nitrogen [Mass/Vol] 43 mg/dL High 7-25 [facility] Comment on above: Order Comment: Reaso n for Exam Chronic kidney disease, stage III (moderate);Diabetes mellit Performed By: #### C BCNO, [id number], PTH, URIC, MG, RENAL, ADDONUAPLUS, CUU, PROCRERAT #### [facility] [address] [place] [id number] [place] Uric Acidon 09-18-2022 Urate [Mass/Vol] 9.7 mg/dL High 2.3-6.6 [facility] Comment on above: Order Comment: Reaso n for Exam Chronic kidney disease, stage III (moderate);Diabetes mellit Performed By: #### C BCNO, [id number], PTH, URIC, MG, RENAL, ADDONUAPLUS, CUU, PROCRERAT #### [facility] [address] [place] [id number] [facility] Urine Cultureon 09-18-2022 Bacteria identified Cx Nom (U) ORGANISM: Escherichia coli (O:ESCCOL) [place] Count >100,000 Aerobic JACEY Charge (NMIC56) ------ [...] RESISTANT TO ALL B-LACTAM DRUGS. PERFORMED BY: [place] [address] PATHOLOGIST LEGAL DOCUMENT SPECIALIST SHANTE LOMBARDI M.D. Normal [facility] Comment on above: Performed By: #### C BCNO, [id number], PTH, URIC, MG, RENAL, ADDONUAPLUS, CUU, PROCRERAT #### [address] Vitamin D 25 Hydroxy Totalon 09-18-2022 Vitamin D 25 Hydroxy Total 45.1 ng/mL Normal 30-100 [facility] Comment on above: Order Comment: Reaso n for Exam Chronic kidney disease, stage III (moderate);Diabetes mellit Result Comment: DEBORAH MIN D STATUS 25(OH)VITAMIN D RANGE (ng/mL) Deficient <20 Insufficient 20 to <30 Sufficient 30 to 100 Reference: Raven MF,Isai NC, Randa WALSH, et al. Evaluation,treatment, and prevention of vitamin D deficiency; an Endocrine Society clinical practice guideline. JCEM. 2010; 96(7):1911-30. PERFORMED BY: [place] [address] PATHOLOGIST LEGAL DOCUMENT SPECIALIST SHANTE LOMBARDI M.D. Performed By: #### C BCNO, [id number], PTH, URIC, MG, RENAL, ADDONUAPLUS, CUU, PROCRERAT #### [address] CBC AUTO DIFFon 06-28-2022 BASO # 0.1 103/ul Normal 0.0-0.1 [facility] Comment on above: Performed By: #### C BC #### [facility] [address] [place] [address] Dr. Briana Dillard Basophils/100 WBC (Bld) 0.8 % Normal 0.2-2.0 [facility] Comment on above: Performed By: #### C BC #### [facility] [address] [place] [address] Dr. Briana Dillard EO # 0.3 103/ul Normal 0.0-0.7 [facility] Comment on above: Performed By: #### C BC #### [facility] [address] [place] [address] Dr. Briana Dillard Eosinophils/100 WBC (Bld) 2.5 % Normal 0.9-7.0 [facility] Comment on above: Performed By: #### C BC #### [facility] [address] [place] [address] Dr. Briana Dillard Erythrocyte distribution width (RBC) [Ratio] 14.8 % Normal 11.0-15.0 [facility] Comment on above: Performed By: #### C BC #### [facility] [address] [place] [address] Dr. Briana Dillard Hematocrit (Bld) [Volume fraction] 43.8 % Normal 36.0-48.0 [facility] Comment on above: Performed By: #### C BC #### [facility] [address] [place] [address] Dr. Briana Dillard Hemoglobin (Bld) [Mass/Vol] 14.5 g/dL Normal 12.0-16.0 [facility] Comment on above: Performed By: #### C BC #### [facility] [address] [place] [address] Dr. Briana Dillard IG # 0.13 10e3/ul Critically high 0.00-0.03 [facility] Comment on above: Performed By: #### C BC #### [facility] [address] [place] [address] Dr. Briana Dillard IG % 1.0 % Critically high 0.0-0.5 [facility] Comment on above: Performed By: #### C BC #### [facility] [address] [place] [address] Dr. Briana Dillard LYMPH # 2.5 103/ul Normal 1.2-3.8 [facility] Comment on above: Performed By: #### C BC #### [facility] [address] [place] [address] Dr. Briana Dillard Lymphocytes/100 WBC (Bld) 19.1 % Critically low 20.5-60.0 [facility] Comment on above: Performed By: #### C BC #### [facility] [address] [place] [address] Dr. Briana Dillard MANUAL DIFF REQ NO Normal [facility] Comment on above: Performed By: #### C BC #### [facility] [address] [place] [address] Dr. Briana Dillard MCH (RBC) [Entitic mass] 30.8 pg Normal 26.7-34.0 [facility] Comment on above: Performed By: #### C BC #### [facility] [address] [place] [address] Dr. Briana Dillard MCHC (RBC) [Mass/Vol] 33.1 g/dL Normal 29.9-35.2 [facility] Comment on above: Performed By: #### C BC #### [facility] [address] [place] [address] Dr. Briana Dillard MCV (RBC) [Entitic vol] 93.0 fL Normal 81.0-99.0 [facility] Comment on above: Performed By: #### C BC #### [facility] [address] [place] [address] Dr. Briana Dillard MONO # 0.7 103/ul Normal 0.3-0.8 [facility] Comment on above: Performed By: #### C BC #### [facility] [address] [place] [address] Dr. Briana Dillard Monocytes/100 WBC (Bld) 5.7 % Normal 1.7-12.0 [facility] Comment on above: Performed By: #### C BC #### [facility] [address] [address] [address] Briana Dillard NEUT # 9.2 103/ul Critically high 1.4-6.5 [facility] Comment on above: Performed By: #### C BC #### [facility] [address] [address] [address] Briana Dillard Neutrophils/100 WBC (Bld) 70.9 % Normal 43.0-75.0 [facility] Comment on above: Performed By: #### C BC #### [facility] [address] [place] [address] Dr. Briana Dillard Platelet mean volume (Bld) [Entitic vol] 10.4 fL Normal 9.5-13.5 [facility] Comment on above: Performed By: #### C BC #### [facility] [address] [place] [address] Dr. Briana Dillard PLT 262 103/ul Normal 150-450 [facility] Comment on above: Performed By: #### C BC #### [facility] [address] [place] [address] Dr. Briana Dillard RBC 4.71 106/ul Normal 4.20-5.40 [facility] Comment on above: Performed By: #### C BC #### [facility] [address] [place] [address] Dr. Briana Dillard WBC 13.0 103/ul Critically high 4.0-11.0 [facility] Comment on above: Performed By: #### C BC #### [facility] [address] [place] [address] Dr. Briana Dillard DIRECT LDLon 06-28-2022 Cholesterol in LDL [Mass/Vol] 90 mg/dL Normal [facility] Comment on above: Performed By: #### C MP, CMADM, BNP #### [facility] [address] [place] [address] Dr. Briana Dillard DLDL NORMAL SEE BELOW Normal [facility] Comment on above: Result Comment: <100 mg/dl OPTIMAL 100 - 129 mg/dl NEAR OR ABOVE OPTIMAL 130 - 159 mg/dl BORDERLINE HIGH 160 - 189 mg/dl HIGH >190 mg/dl VERY HIGH Performed By: #### C KYLE COLMENARESDM, BNP #### [facility] [address] [address] [address] Briana Dillard GLYCOHEMOGLOBIN A1Con 2022 ADA RECOMMENDATION SEE BELOW Normal [facility] Comment on above: Result Comment: ADA RECOMMENDED LIMIT 4.0 - 6.0 ADA THERAPEUTIC TARGET < 7.0 ACTION SUGGESTED > 7.0 Performed By: #### C DARRIAN CMADM, BNP #### [facility] [address] [address] [address] Briana Dillard Glucose [Mass/Vol] 229 mg/dL Normal [facility] Comment on above: Performed By: #### C KYLE COLMENARESDM, BNP #### [facility] [address] [address] [address] Briana Dillard HbA1c (Bld) [Mass fraction] 9.6 % Critically high 4.5-6.2 [facility] Comment on above: Performed By: #### C KYLE COLMENARESDM, BNP #### [facility] [address] [address] [address] Briana Dillard LIPID PROFILEon 06-28-2022 CHOL-HDL RATIO NORM SEE BELOW Normal [facility] Comment on above: Result Comment: 3.3 - 4.4 LOW RISK 4.4 - 7.1 AVERAGE RISK 7.1 - 11.0 MODERATE RISK >11.0 HIGH RISK Performed By: #### C KYLE COLMENARESDM, BNP #### [facility] [address] [address] [address] Briana Dillard Cholesterol [Mass/Vol] 219 mg/dL Critically high <=200 [facility] Comment on above: Performed By: #### C KYLE COLMENARESDM, BNP #### [facility] [address] [address] [address] Briana Dillard Cholesterol in HDL [Mass/Vol] 32 mg/dL Critically low 40-60 [facility] Comment on above: Performed By: #### C DARRIAN, CMADM, BNP #### [facility] [address] [address] [address] Briana Dillard Cholesterol.total/Choles terol in HDL [Mass ratio] 6.8 {ratio} Normal [facility] Comment on above: Performed By: #### C MP, CMADM, BNP #### [facility] [address] [address] [address] Briana Dillard HDL NORMAL > or = 60 mg/dl - LOW CARDIOVASCULAR RISK <40 mg/dl - HIGH CARDIOVASCULAR RISK Normal [facility] Comment on above: Performed By: #### C MP, CMADM, BNP #### [facility] [address] [address] [address] Briana Dillard LDL CALC NORMAL SEE BELOW Normal [facility] Comment on above: Result Comment: <100 mg/dl OPTIMAL 100 - 129 mg/dl NEAR OR ABOVE OPTIMAL 130 - 159 mg/dl BORDERLINE HIGH 160 - 189 mg/dl HIGH >190 mg/dl VERY HIGH Performed By: #### C MP, CMADM, BNP #### [facility] [address] [address] [address] Briana Dillard Triglyceride [Mass/Vol] 585 mg/dL Critically high <=150 [facility] Comment on above: Performed By: #### C MP, CMADM, BNP #### [facility] [address] [place] [address] Dr. Briana Dillard VLDL CALC 117.0 mg/dL Normal [facility] Comment on above: Performed By: #### C MP, CMADM, BNP #### [facility] [address] [address] [address] Briana Dillard PROF 14(COMP METB)on 023 Albumin [Mass/Vol] 3.6 g/dL Normal 3.4-5.0 [facility] Comment on above: Performed By: #### L IPID, CMP, DLDL #### [facility] [address] [address] [address] Briana Dillard Albumin/Globulin [Mass ratio] 0.9 {ratio} Normal [facility] Comment on above: Performed By: #### L IPID, CMP, DLDL #### [facility] [address] [address] [address] Briana Dillard ALP [Catalytic activity/Vol] 117 U/L Critically high 46-116 [facility] Comment on above: Performed By: #### L IPID, CMP, DLDL #### [facility] [address] [address] [address] Briana Dillard ALT [Catalytic activity/Vol] 42 U/L Normal 14-59 [facility] Comment on above: Performed By: #### L IPID, CMP, DLDL #### [facility] [address] [address] [address] Briana Dillard Anion gap [Moles/Vol] 15.4 mmol/L Normal [facility] Comment on above: Performed By: #### L IPID, CMP, DLDL #### [facility] [address] [place] [address] Dr. Briana Dillard AST [Catalytic activity/Vol] 29 U/L Normal 15-37 [facility] Comment on above: Performed By: #### L IPID, CMP, DLDL #### [facility] [address] [address] [address] Briana Dillard Bilirubin [Mass/Vol] 0.4 mg/dL Normal 0.2-1.0 [facility] Comment on above: Performed By: #### L IPID, CMP, DLDL #### [facility] [address] [address] [address] Briana Dillard Calcium [Mass/Vol] 10.2 mg/dL Critically high 8.5-10.1 [facility] Comment on above: Performed By: #### L IPID, CMP, DLDL #### [facility] [address] [address] [address] Briana Dillard Chloride [Moles/Vol] 100 mmol/L Normal 98-107 [facility] Comment on above: Performed By: #### L IPID, CMP, DLDL #### [facility] [address] [address] [address] Briana Dillard CO2 [Moles/Vol] 27.3 mmol/L Normal 21.0-32.0 [facility] Comment on above: Performed By: #### L IPID, CMP, DLDL #### [facility] [address] [place] [address] Dr. Briana Dilalrd Creatinine [Mass/Vol] 1.40 mg/dL Critically high 0.55-1.02 [facility] Comment on above: Performed By: #### L IPID, CMP, DLDL #### [facility] [address] [address] [address] Briana Dillard EGFR-AF HONDURAN 46 mL/min/1.73m2 Critically low >=60 [facility] Comment on above: Performed By: #### L IPID, CMP, DLDL #### [facility] [address] [place] [address] Dr. Briana Dillard EGFR-NON AF HONDURAN 38 mL/min/1.73m2 Critically low >=60 [facility] Comment on above: Performed By: #### L IPID, CMP, DLDL #### [facility] [address] [place] [address] Dr. Briana Dillard Globulin (S) [Mass/Vol] 3.9 g/dL Normal [facility] Comment on above: Performed By: #### L IPID, CMP, DLDL #### [facility] [address] [place] [address] Dr. Briana Dillard Glucose [Mass/Vol] 295 mg/dL Critically high 74-106 [facility] Comment on above: Performed By: #### L IPID, CMP, DLDL #### [facility] [address] [place] [address] Dr. Briana Dillard Potassium [Moles/Vol] 4.7 mmol/L Normal 3.5-5.1 [facility] Comment on above: Performed By: #### L IPID, CMP, DLDL #### [facility] [address] [address] [address] Briana Dillard Protein [Mass/Vol] 7.5 g/dL Normal 6.4-8.2 [facility] Comment on above: Performed By: #### L IPID, CMP, DLDL #### [facility] [address] [address] [address] Briana Dillard Sodium [Moles/Vol] 138 mmol/L Normal 136-145 [facility] Comment on above: Performed By: #### L IPID, CMP, DLDL #### [facility] [address] [place] [address] Dr. Briana Dillard Urea nitrogen [Mass/Vol] 34.0 mg/dL Critically high 7.0-18 .0 [facility] Comment on above: Performed By: #### L IPID, CMP, DLDL #### [facility] [address] [place] [address] Dr. Briana Dillard Urea nitrogen/Creatinine [Mass ratio] 24.3 mg/mg Normal [facility] Comment on above: Performed By: #### L IPID, CMP, DLDL #### [facility] [address] [place] [address] Dr. Briana Dillard UA RANDOM W/MICROSCOPICon BACTERIA TRACE Abnormal NONE SEEN [facility] Comment on above: Performed By: #### C MP, CMADM, BNP #### [facility] [address] [place] [address] Dr. Briana Dillard Bilirubin Ql (U) Negative Normal NEGATIVE [facility] Comment on above: Performed By: #### C MP, CMADM, BNP #### [facility] [address] [place] [address] Dr. Briana Dillard CAST NONE SEEN Normal NONE SEEN [facility] Comment on above: Performed By: #### C MP, CMADM, BNP #### [facility] [address] [place] [address] Dr. Briana Dillard Clarity (U) CLEAR Normal CLEAR [facility] Comment on above: Performed By: #### C MP, CMADM, BNP #### [facility] [address] [place] [address] Dr. Briana Dillard Color (U) LT. YELLOW Normal YELLOW [facility] Comment on above: Performed By: #### C MP, CMADM, BNP #### [facility] [address] [address] [address] Briana Dillard Crystals LM Nom (Urine sed) NONE SEEN Normal NONE SEEN [facility] Comment on above: Performed By: #### C MP, CMADM, BNP #### [facility] [address] [address] [address] Briana Dillard Epithelial cells LM Ql (Urine sed) MANY Abnormal NONE SEEN /RARE [facility] Comment on above: Performed By: #### C MP, CMADM, BNP #### [facility] [address] [address] [address] Briana Dillard Glucose Ql (U) Negative Normal NEGATIVE [facility] Comment on above: Performed By: #### C MP, CMADM, BNP #### [facility] [address] [address] [address] Briana Dillard Hemoglobin Ql (U) Negative Normal NEGATIVE [facility] Comment on above: Performed By: #### C MP, CMADM, BNP #### [facility] [address] [address] [address] Briana Dillard Ketones Ql (U) Negative Normal NEGATIVE [facility] Comment on above: Performed By: #### C MP, CMADM, BNP #### [facility] [address] [address] [address] Briana Dillard LEUKOCYTES TRACE Abnormal NEGATIVE [facility] Comment on above: Performed By: #### C MP, CMADM, BNP #### [facility] [address] [address] [address] Briana Dillard MUCOUS NONE SEEN Normal NONE SEEN [facility] Comment on above: Performed By: #### C MP, CMADM, BNP #### [facility] [address] [address] [address] Briana Dillard Nitrite Ql (U) Negative Normal NEGATIVE [facility] Comment on above: Performed By: #### C MP, CMADM, BNP #### [facility] [address] [address] [address] Briana Dillard pH (U) 6.0 [pH] Normal 5-9 [facility] Comment on above: Performed By: #### C MP, CMADM, BNP #### [facility] [address] [address] [address] Briana Dillard RBC 0-2 Normal 0-2 [facility] Comment on above: Performed By: #### C MP, CMADM, BNP #### [facility] [address] [address] [address] Briana Dillard SPEC GRAVITY 1.010 Normal 1.005-<=1.02 5 [facility] Comment on above: Performed By: #### C MP, CMADM, BNP #### [facility] [address] [address] [address] Briana Dillard UA PROTEIN TRACE Normal NEGATIVE/ TRACE [facility] Comment on above: Performed By: #### C MP, CMADM, BNP #### [facility] [address] [place] [address] Dr. Briana Dillard Urobilinogen Qn (U) 0.2 {Samuel'U}/dL Normal 0.2 - 1. 0 [facility] Comment on above: Performed By: #### C MP, CMADM, BNP #### [facility] [address] [place] [address] Dr. Briana Dillard WBC 2-5 Abnormal NONE SEEN [facility] Comment on above: Performed By: #### C MP, CMADM, BNP #### [facility] [address] [address] [address] Briana Dillard URINE T PROTEIN CREAT RATIOo n 06-28-2022 Protein (U) [Mass/Vol] 30.3 mg/dL Critically high <=12.0 [facility] Comment on above: Performed By: #### C MP, CMADM, BNP #### [facility] [address] [place] [address] Dr. Briana Dillard UR PROT CREAT RAT 0.80 Normal [facility] Comment on above: Performed By: #### C MP, CMADM, BNP #### [facility] [address] [address] [address] Briana Dillard URINE CREAT 38.11 mg/dL Normal 20.00-300.00 [facility] Comment on above: Performed By: #### C MP, CMADM, BNP #### [facility] [address] [address] [address] Briana Dillard POINT OF CARE GLUCOSEon 05-05 Glucose [Mass/Vol] 296 mg/dL Critically high 74-106 [facility] Comment on above: Performed By: #### C MP, CMADM, BNP #### [facility] [address] [address] [address] Briana Dillard POINT OF CARE GLUCOSEon 05-04 Glucose [Mass/Vol] 312 mg/dL Critically high 74-106 [facility] Comment on above: Performed By: #### C BC #### [facility] [address] [place] [address] Dr. Briana Dillard GLYCOHEMOGLOBIN A1Con 2021 ADA RECOMMENDATION SEE BELOW Normal [facility] Comment on above: Result Comment: ADA RECOMMENDED LIMIT 4.0 - 6.0 ADA THERAPEUTIC TARGET < 7.0 ACTION SUGGESTED > 7.0 Performed By: #### A 1C #### [facility] [address] [address] [address] Briana Dillard Glucose [Mass/Vol] 223 mg/dL Normal [facility] Comment on above: Performed By: #### A 1C #### [facility] [address] [place] [address] Dr. Briana Dillard HbA1c (Bld) [Mass fraction] 9.4 % Critically high 4.5-6.2 [facility] Comment on above: Performed By: #### A 1C #### [facility] [address] [place] [address] Dr. Briana Dillard CBC AUTO DIFFon 11-29-2021 BASO # 0.1 103/ul Normal 0.0-0.1 [facility] Comment on above: Performed By: #### C BC #### [facility] [address] [place] [address] Dr. Briana Dillard Basophils/100 WBC (Bld) 0.9 % Normal 0.2-2.0 [facility] Comment on above: Performed By: #### C BC #### [facility] [address] [address] [address] Briana Dillard EO # 0.3 103/ul Normal 0.0-0.7 [facility] Comment on above: Performed By: #### C BC #### [facility] [facility] [address] [address] [address] Briana Dillard Eosinophils/100 WBC (Bld) 2.7 % Normal 0.9-7.0 [facility] Comment on above: Performed By: #### C BC #### [facility] [address] [place] [address] Dr. Briana Dillard Erythrocyte distribution width (RBC) [Ratio] 15.8 % Critically high 11.0-15.0 [facility] Comment on above: Performed By: #### C BC #### [facility] [address] [place] [address] Dr. Briana Dillard Hematocrit (Bld) [Volume fraction] 39.4 % Normal 36.0-48.0 [facility] Comment on above: Performed By: #### C BC #### [facility] [address] [place] [address] Dr. Briana Dillard Hemoglobin (Bld) [Mass/Vol] 13.0 g/dL Normal 12.0-16.0 [facility] Comment on above: Performed By: #### C BC #### [facility] [address] [place] [address] Dr. Briana Dillard IG # 0.12 10e3/ul Critically high 0.00-0.03 [facility] Comment on above: Performed By: #### C BC #### [facility] [address] [address] [address] Briana Dillard IG % 1.1 % Critically high 0.0-0.5 [facility] Comment on above: Performed By: #### C BC #### [facility] [address] [place] [address] Dr. Briana Dillard LYMPH # 2.7 103/ul Normal 1.2-3.8 [facility] Comment on above: Performed By: #### C BC #### [facility] [address] [place] [address] Dr. Briana Dillard Lymphocytes/100 WBC (Bld) 25.6 % Normal 20.5-60.0 [facility] Comment on above: Performed By: #### C BC #### [facility] [address] [place] [address] Dr. Briana Dillard MANUAL DIFF REQ NO Normal [facility] Comment on above: Performed By: #### C BC #### [facility] [address] [place] [address] Dr. Briana Dillard MCH (RBC) [Entitic mass] 30.9 pg Normal 26.7-34.0 [facility] Comment on above: Performed By: #### C BC #### [facility] [address] [place] [address] Dr. Briana Dillard MCHC (RBC) [Mass/Vol] 33.0 g/dL Normal 29.9-35.2 [facility] Comment on above: Performed By: #### C BC #### [facility] [address] [place] [address] Dr. Briana Dillard MCV (RBC) [Entitic vol] 93.6 fL Normal 81.0-99.0 [facility] Comment on above: Performed By: #### C BC #### [facility] [address] [place] [address] Dr. Briana Dillard MONO # 0.8 103/ul Normal 0.3-0.8 [facility] Comment on above: Performed By: #### C BC #### [facility] [address] [place] [address] Dr. Briana Dillard Monocytes/100 WBC (Bld) 7.9 % Normal 1.7-12.0 [facility] Comment on above: Performed By: #### C BC #### [facility] [address] [place] [address] Dr. Briana Dillard NEUT # 6.6 103/ul Critically high 1.4-6.5 [facility] Comment on above: Performed By: #### C BC #### [facility] [address] [address] [address] Briana Dillard Neutrophils/100 WBC (Bld) 61.8 % Normal 43.0-75.0 [facility] Comment on above: Performed By: #### C BC #### [facility] [address] [place] [address] Dr. Briana Dillard Platelet mean volume (Bld) [Entitic vol] 10.3 fL Normal 9.5-13.5 [facility] Comment on above: Performed By: #### C BC #### [facility] [address] [place] [address] Dr. Briana Dillard PLT 234 103/ul Normal 150-450 [facility] Comment on above: Performed By: #### C BC #### [facility] [address] [place] [address] Dr. Briana Dillard RBC 4.21 106/ul Normal 4.20-5.40 [facility] Comment on above: Performed By: #### C BC #### [facility] [address] [place] [address] Dr. Briana Dillard WBC 10.6 103/ul Normal 4.0-11.0 [facility] Comment on above: Performed By: #### C BC #### [facility] [address] [place] [address] Dr. Briana Dillard GLYCOHEMOGLOBIN A1Con 2021 ADA RECOMMENDATION SEE BELOW Normal [facility] Comment on above: Result Comment: ADA RECOMMENDED LIMIT 4.0 - 6.0 ADA THERAPEUTIC TARGET < 7.0 ACTION SUGGESTED > 7.0 Performed By: #### C BC #### [facility] [address] [place] [address] Dr. Briana Dillard Glucose [Mass/Vol] 220 mg/dL Normal [facility] Comment on above: Performed By: #### C BC #### [facility] [address] [place] [address] Dr. Briana Dillard HbA1c (Bld) [Mass fraction] 9.3 % Critically high 4.5-6.2 [facility] Comment on above: Performed By: #### C BC #### [facility] [address] [address] [address] Briana Dillard LIPID PROFILEon 11-29-2021 CHOL-HDL RATIO NORM SEE BELOW Normal [facility] Comment on above: Result Comment: 3.3 - 4.4 LOW RISK 4.4 - 7.1 AVERAGE RISK 7.1 - 11.0 MODERATE RISK >11.0 HIGH RISK Performed By: #### C MP, CMADM, BNP #### [facility] [address] [address] [address] Briana Dillard Cholesterol [Mass/Vol] 135 mg/dL Normal <=200 [facility] Comment on above: Performed By: #### C MP CMADM, BNP #### [facility] [address] [address] [address] Briana Dillard Cholesterol in HDL [Mass/Vol] 44 mg/dL Normal 40-60 [facility] Comment on above: Performed By: #### C DARRIAN CMADM, BNP #### [facility] [address] [address] [address] Briana Dillard Cholesterol in LDL [Mass/Vol] 60.2 mg/dL Normal [facility] Comment on above: Performed By: #### C MP CMADM, BNP #### [facility] [address] [address] [address] Briana Dillard Cholesterol.total/Choles terol in HDL [Mass ratio] 3.1 {ratio} Normal [facility] Comment on above: Performed By: #### C MP, CMADM, BNP #### [facility] [address] [address] [address] Briana Dillard HDL NORMAL > or = 60 mg/dl - LOW CARDIOVASCULAR RISK <40 mg/dl - HIGH CARDIOVASCULAR RISK Normal [facility] Comment on above: Performed By: #### C MP, CMADM, BNP #### [facility] [address] [address] [address] Briana Dillard LDL CALC NORMAL SEE BELOW Normal [facility] Comment on above: Result Comment: <100 mg/dl OPTIMAL 100 - 129 mg/dl NEAR OR ABOVE OPTIMAL 130 - 159 mg/dl BORDERLINE HIGH 160 - 189 mg/dl HIGH >190 mg/dl VERY HIGH Performed By: #### C MP CMADM, BNP #### [facility] [address] [place] [address] Dr. Briana Dillard Triglyceride [Mass/Vol] 154 mg/dL Critically high <=150 [facility] Comment on above: Performed By: #### C MP, CMADM, BNP #### [facility] [address] [address] [address] Briana Dillard VLDL CALC 30.8 mg/dL Normal [facility] Comment on above: Performed By: #### C KYLE COLMENARESDM, BNP #### [facility] [address] [place] [address] Dr. Briana Dillard POINT OF CARE GLUCOSEon 11-02 Glucose [Mass/Vol] 271 mg/dL Critically high 74-106 [facility] Comment on above: Performed By: #### C BC #### [facility] [address] [place] [address] Dr. Briana Dillard Glucose [Mass/Vol] 180 mg/dL Critically high 74-106 [facility] Comment on above: Performed By: #### C KYLE COLMENARESDM, BNP #### [facility] [address] [place] [address] Dr. Briana Dillard BNPon 11-28-2021 Natriuretic peptide B (Bld) [Mass/Vol] 86.0 pg/mL Normal <=900.0 [facility] Comment on above: Performed By: #### C DARRIAN CMADM, BNP #### [facility] [address] [place] [address] Dr. Briana Dillard CARDIAC TANIA ADMITon 022 CK [Catalytic activity/Vol] 52 U/L Normal 26-192 [facility] Comment on above: Performed By: #### C MP, CMADM, BNP #### [facility] [address] [place] [address] Dr. Briana Dillard CK.MB [Mass/Vol] 0.65 ng/mL Normal <=3.60 [facility] Comment on above: Performed By: #### C MP, CMADM, BNP #### [facility] [address] [place] [address] Dr. Briana Dillard HSTROP 4.8 pg/mL Normal 4.0-51.3 [facility] Comment on above: Result Comment: CUT- OFF POINTS HAVE BEEN ESTABLISHED BASED ON THE FOURTH UNIVERSAL DEFINITIONS OF MYOCARDIAL INFARCTION. THE UPPER REFERENCE LIMIT (URL) OF TROPONIN, DEFINED THE 99TH PERCENTILE OF cTnI DISTRIBUTION IN A REFERENCE POPULATION, HAS BEEN CONFIRMED THE DECISION THRESHOLD FOR LA DIAGNOSIS. Performed By: #### C MP, CMADM, BNP #### [facility] [address] [place] [address] Dr. Briana Dillard YONIS 47 ng/mL Normal 9-82 [facility] Comment on above: Performed By: #### C MP, CMADM, BNP #### [facility] [address] [place] [address] Dr. Briana Dillard CBC AUTO DIFFon 11-28-2021 BASO # 0.1 103/ul Normal 0.0-0.1 [facility] Comment on above: Performed By: #### C BC #### [facility] [address] [place] [address] Dr. Briana Dillard Basophils/100 WBC (Bld) 0.8 % Normal 0.2-2.0 [facility] Comment on above: Performed By: #### C BC #### [facility] [address] [place] [address] Dr. Briana Dillard EO # 0.2 103/ul Normal 0.0-0.7 [facility] Comment on above: Performed By: #### C BC #### [facility] [address] [place] [address] Dr. Briana Dillard Eosinophils/100 WBC (Bld) 1.4 % Normal 0.9-7.0 [facility] Comment on above: Performed By: #### C BC #### [facility] [address] [place] [address] Dr. Briana Dillard Erythrocyte distribution width (RBC) [Ratio] 15.8 % Critically high 11.0-15.0 [facility] Comment on above: Performed By: #### C BC #### [facility] [address] [address] [address] Briana Dillard Hematocrit (Bld) [Volume fraction] 42.2 % Normal 36.0-48.0 [facility] Comment on above: Performed By: #### C BC #### [facility] [address] [address] [address] Briana Dillard Hemoglobin (Bld) [Mass/Vol] 14.3 g/dL Normal 12.0-16.0 [facility] Comment on above: Performed By: #### C BC #### [facility] [address] [place] [address] Dr. Briana Dillard IG # 0.14 10e3/ul Critically high 0.00-0.03 [facility] Comment on above: Performed By: #### C BC #### [facility] [address] [place] [address] Dr. Briana Dillard IG % 1.1 % Critically high 0.0-0.5 [facility] Comment on above: Performed By: #### C BC #### [facility] [address] [address] [address] Briana Dillard LYMPH # 1.9 103/ul Normal 1.2-3.8 [facility] Comment on above: Performed By: #### C BC #### [facility] [address] [place] [address] Dr. Briana Dillard Lymphocytes/100 WBC (Bld) 14.0 % Critically low 20.5-60.0 [facility] Comment on above: Performed By: #### C BC #### [facility] [address] [place] [address] Dr. Briana Dillard MANUAL DIFF REQ NO Normal [facility] Comment on above: Performed By: #### C BC #### [facility] [address] [place] [address] Dr. Briana Dillard MCH (RBC) [Entitic mass] 31.2 pg Normal 26.7-34.0 [facility] Comment on above: Performed By: #### C BC #### [facility] [address] [address] [address] Briana Dillard MCHC (RBC) [Mass/Vol] 33.9 g/dL Normal 29.9-35.2 [facility] Comment on above: Performed By: #### C BC #### [facility] [address] [place] [address] Dr. Briana Dillard MCV (RBC) [Entitic vol] 92.1 fL Normal 81.0-99.0 [facility] Comment on above: Performed By: #### C BC #### [facility] [address] [place] [address] Dr. Brinaa Dillard MONO # 1.1 103/ul Critically high 0.3-0.8 [facility] Comment on above: Performed By: #### C BC #### [facility] [address] [place] [address] Dr. Briana Dillard Monocytes/100 WBC (Bld) 8.0 % Normal 1.7-12.0 [facility] Comment on above: Performed By: #### C BC #### [facility] [address] [place] [address] Dr. Briana Dillard NEUT # 9.9 103/ul Critically high 1.4-6.5 [facility] Comment on above: Performed By: #### C BC #### [facility] [address] [place] [address] Dr. Briana Dillard Neutrophils/100 WBC (Bld) 74.7 % Normal 43.0-75.0 [facility] Comment on above: Performed By: #### C BC #### [facility] [address] [place] [address] Dr. Briana Dillard Platelet mean volume (Bld) [Entitic vol] 10.1 fL Normal 9.5-13.5 [facility] Comment on above: Performed By: #### C BC #### [facility] [address] [place] [address] Dr. Briana Dillard PLT 241 103/ul Normal 150-450 [facility] Comment on above: Performed By: #### C BC #### [facility] [address], [place] [address] Dr. Briana Dillard RBC 4.58 106/ul Normal 4.20-5.40 [facility] Comment on above: Performed By: #### C BC #### [facility] [address], [place] [address] Dr. Briana Dillard WBC 13.2 103/ul Critically high 4.0-11.0 [facility] Comment on above: Performed By: #### C BC #### [facility] [address], [place] [address] Dr. Briana Dillard CTA CHEST WO W [...] NADJA KEMP Date: 2021-11-28 13:10 Normal [facility] Covid-19 PCR (CVDTBH)on 11-02 SARS-CoV-2 (COVID-19) RNA ANTOINE+probe Ql (Unsp spec) Not detected Normal NOT DETECTED [facility] Comment on above: Result Comment: When diagnostic [...] for this test is supported by the Patient Advocate of Health and Human Service's declaration that [...] By: #### C MP, CMADM, BNP #### [facility] [address] [place] [address] Dr. Briana Dillard D-DIMERon 11-28-2021 D-DIMER 0.77 mg/L FEU Critically high <=0.59 [facility] Comment on above: Performed By: #### P T, PTT, DDIM #### [facility] [address] [place] [address] Dr. Briana Dillard D-DIMER COMMENTS SEE BELOW Normal [facility] Comment on above: Result Comment: Incr [...] By: #### P T, PTT, DDIM #### [facility] [address] [place] [address] Dr. Briana Dillard POINT OF CARE GLUCOSEon - Glucose [Mass/Vol] 213 mg/dL Critically high 74-106 [facility] Comment on above: Performed By: #### P OCGLUC #### [facility] [address] [address] [address] Briana Dillard Glucose [Mass/Vol] 255 mg/dL Critically high 74-106 [facility] Comment on above: Performed By: #### C MP, CMADM, BNP #### [facility] [address] [address] [address] Briana Dillard PROF 14(COMP METB)on 022 Albumin [Mass/Vol] 3.4 g/dL Normal 3.4-5.0 [facility] Comment on above: Performed By: #### C MP, CMADM, BNP #### [facility] [address] [address] [address] Briana Dillard Albumin/Globulin [Mass ratio] 0.9 {ratio} Normal [facility] Comment on above: Performed By: #### C MP, CMADM, BNP #### [facility] [address] [address] [address] Briana Dillard ALP [Catalytic activity/Vol] 126 U/L Critically high 46-116 [facility] Comment on above: Performed By: #### C MP, CMADM, BNP #### [facility] [address] [address] [address] Briana Dillard ALT [Catalytic activity/Vol] 30 U/L Normal 14-59 [facility] Comment on above: Performed By: #### C MP, CMADM, BNP #### [facility] [address] [address] [address] Briana Dillard Anion gap [Moles/Vol] 13.6 mmol/L Normal [facility] Comment on above: Performed By: #### C MP, CMADM, BNP #### [facility] [address] [address] [address] Briana Dillard AST [Catalytic activity/Vol] 18 U/L Normal 15-37 [facility] Comment on above: Performed By: #### C MP, CMADM, BNP #### [facility] [address] [address] [address] Briana Dillard Bilirubin [Mass/Vol] 0.4 mg/dL Normal 0.2-1.0 [facility] Comment on above: Performed By: #### C MP, CMADM, BNP #### [facility] [address] [place] [address] Dr. Briana Dillard Calcium [Mass/Vol] 8.9 mg/dL Normal 8.5-10.1 [facility] Comment on above: Performed By: #### C MP, CMADM, BNP #### [facility] [address] [place] [address] Dr. Briana Dillard Chloride [Moles/Vol] 98 mmol/L Normal 98-107 [facility] Comment on above: Performed By: #### C MP, CMADM, BNP #### [facility] [address] [place] [address] Dr. Briana Dillard CO2 [Moles/Vol] 25.0 mmol/L Normal 21.0-32.0 [facility] Comment on above: Performed By: #### C MP, CMADM, BNP #### [facility] [address] [place] [address] Dr. Briana Dillard Creatinine [Mass/Vol] 1.58 mg/dL Critically high 0.55-1.02 [facility] Comment on above: Performed By: #### C MP, CMADM, BNP #### [facility] [address] [place] [address] Dr. Briana Dillard EGFR-AF HONDURAN 40 mL/min/1.73m2 Critically low >=60 [facility] Comment on above: Performed By: #### C MP, CMADM, BNP #### [facility] [address] [place] [address] Dr. Briana Dillard EGFR-NON AF HONDURAN 33 mL/min/1.73m2 Critically low >=60 [facility] Comment on above: Performed By: #### C MP, CMADM, BNP #### [facility] [address] [place] [address] Dr. Briana Dillard Globulin (S) [Mass/Vol] 4.0 g/dL Normal [facility] Comment on above: Performed By: #### C MP, CMADM, BNP #### [facility] [address] [address] [address] Briana Dillard Glucose [Mass/Vol] 386 mg/dL Critically high 74-106 [facility] Comment on above: Performed By: #### C MP, CMADM, BNP #### [facility] [address] [address] [address] Briana Dillard Potassium [Moles/Vol] 4.6 mmol/L Normal 3.5-5.1 [facility] Comment on above: Performed By: #### C MP, CMADM, BNP #### [facility] [address] [address] [address] Briana Dillard Protein [Mass/Vol] 7.4 g/dL Normal 6.4-8.2 [facility] Comment on above: Performed By: #### C MP, CMADM, BNP #### [facility] [address] [place] [address] Dr. Briana Dillard Sodium [Moles/Vol] 132 mmol/L Critically low 136-145 [facility] Comment on above: Performed By: #### C MP, CMADM, BNP #### [facility] [address] [address] [address] Briana Dillard Urea nitrogen [Mass/Vol] 23.0 mg/dL Critically high 7.0-18 .0 [facility] Comment on above: Performed By: #### C MP, CMADM, BNP #### [facility] [address] [place] [address] Dr. Briana Dillard Urea nitrogen/Creatinine [Mass ratio] 14.6 mg/mg Normal [facility] Comment on above: Performed By: #### C MP, CMADM, BNP #### [facility] [address] [address] [address] Briana Dillard PROTIMEon 11-28-2021 INR Coag (PPP) [Relative time] 1.01 {INR} Normal [facility] Comment on above: Performed By: #### P T, PTT, DDIM #### [facility] [address] [place] [address] Dr. Briana Dillard INR GUIDELINES SEE BELOW Normal [facility] Comment on above: Result Comment: LURDES RED INR: 2.0 - 3.0 CONDITIONS NOT LISTED BELOW 2.5 - 3.5 FOR PROSTHETIC HEART VALVE REPLACEMENT 2.5 - 3.5 RECURRENT THROMBOSIS Performed By: #### P T, PTT, DDIM #### [facility] [address] [place] [address] Dr. Briana Dillard PT Coag (PPP) [Time] 10.9 s Normal 9.0-11.6 [facility] Comment on above: Performed By: #### P T, PTT, DDIM #### [facility] [address] [place] [address] Dr. Briana Dillard PTTon 11-28-2021 aPTT Coag (Bld) [Time] 27.5 s Normal 22.3-36.2 Th e [facility] Comment on above: Performed By: #### P T, PTT, DDIM #### [facility] [address] [place] [address] Dr. Briana Dillard TROPONIN, HIGH SENSITIVITYon 11-28-2021 HSTROP 5.5 pg/mL Normal 4.0-51.3 [facility] Comment on above: Result Comment: CUT- OFF POINTS HAVE BEEN ESTABLISHED BASED ON THE FOURTH UNIVERSAL DEFINITIONS OF MYOCARDIAL INFARCTION. THE UPPER REFERENCE LIMIT (URL) OF TROPONIN, DEFINED THE 99TH PERCENTILE OF cTnI DISTRIBUTION IN A REFERENCE POPULATION, HAS BEEN CONFIRMED THE DECISION THRESHOLD FOR LA DIAGNOSIS. Performed By: #### C MP, CMADM, BNP #### [facility] [address] [place] [address] Dr. Briana Dillard HSTROP 5.4 pg/mL Normal 4.0-51.3 [facility] Comment on above: Result Comment: CUT- OFF POINTS HAVE BEEN ESTABLISHED BASED ON THE FOURTH UNIVERSAL DEFINITIONS OF MYOCARDIAL INFARCTION. THE UPPER REFERENCE LIMIT (URL) OF TROPONIN, DEFINED THE 99TH PERCENTILE OF cTnI DISTRIBUTION IN A REFERENCE POPULATION, HAS BEEN CONFIRMED THE DECISION THRESHOLD FOR LA DIAGNOSIS. Performed By: #### C MP, CMADM, BNP #### [facility] [address] [place] [address] Dr. Briana Dillard HSTROP 5.6 pg/mL Normal 4.0-51.3 [facility] Comment on above: Result Comment: CUT- OFF POINTS HAVE BEEN ESTABLISHED BASED ON THE FOURTH UNIVERSAL DEFINITIONS OF MYOCARDIAL INFARCTION. THE UPPER REFERENCE LIMIT (URL) OF TROPONIN, DEFINED THE 99TH PERCENTILE OF cTnI DISTRIBUTION IN A REFERENCE POPULATION, HAS BEEN CONFIRMED THE DECISION THRESHOLD FOR LA DIAGNOSIS. Performed By: #### C MP, CMADM, BNP #### [facility] [address], [place] [address] Dr. Briana Dillard XR CHEST 1 Von [...] by: NADJA KEMP Date: 2021-11-28 12:46 Normal [facility] Tobacco Screening.on 022 Adult depression screening assessment Yes -[facility] [facility] [facility] DO Work Phone: Tobacco use status CPHS a) Yes M -[facility] 250 DO Work Phone: Tobacco Screening. Yes -[facility] [facility] 250 DO Work Phone: Tobacco Screening. 1-Several days [facility] [facility] 250 DO Work Phone: Tobacco Screening. 0-Not at all [facility] [facility] 250 DO Work Phone: Tobacco Screening. Not difficult at all [facility] 250 DO Work Phone: Echocardiogramon 05-20-2021 Echocardiography [facility] [address], [address] 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 Helper: Clarisse Sumner RDCS, RVT Height: 160.02 cm CC Report to: Weight: 89.36 kg Study Type: Echocardiogram BSA: 1.92 m2 Blood Pressure: 166 /94 mmHg Diagnosis/ICD: I51.7-Cardiomegaly; R06.00-Dyspnea, unspecified Indication: Obesity, Tobacco Abuse Procedure/CPT: Echo Complete w Full Doppler-[id number] Study Detail: The following Echo studies were [...] AoV Mean P.0 mmHg (1.7-11.5mmHg) LVOT Max Micahel: 0.62 m/s (<1.1m/s) AoV VTI: 26.10 cm (18-25cm) LVOT VTI: 12.10 cm LVOT Diameter: 2.10 cm (1.8-2.4cm) AoV Area, VTI: 1.61 cm2 (2.5-5.5cm2) AoV Area,Vmax: 1.81 cm2 (2.5-4.5cm2) AoV Dimensionless Index: 0.46 TRICUSPID VALVE/RVSP: Normal Ranges: Peak TR Velocity: 2.16 m/s RV Syst Pressure: 21.7 mmHg (< 30mmHg) PULMONIC VALVE: Normal Ranges: PV Max Michael: 0.9 m/s (0.6-0.9m/s) PV Max P.1 mmHg [id number] Ruma Dawn MD Electronically signed on 05/24/2021 at 5:25:46 PM Final Normal [facility] Tobacco Screening.on 022 Fall risk assessment a) No falls within the last year [facility] 250 DO Work Phone: Tobacco use status CPHS a) Yes M [facility] y 250 DO Work Phone: Fall risk assessment a) No falls within the last year [facility] 250 DO Work Phone: Tobacco use status CPHS a) Yes [facility] 250 DO Work Phone: Tobacco Screening. Yes [facility] 250 DO Work Phone: Bld Gas Venon 12-02-2019 Allens Test N/A [facility] Comment on above: Result Comment: [facility] Department of Pulmonary Medicine [address] [place] [address] Performed By: #### 1 [id number] #### [facility] Laboratory [address] [place] [address] Called By: KATHY OCHOA [facility] Comment on above: Performed By: #### 1 [id number] #### [facility] [address] [place] [address] Called To: DR. CORINNE COFFMAN [facility] Comment on above: Performed By: #### 1 [id number] #### [facility] [address] [place] [address] [facility] Comment on above: Performed By: #### 1 [id number] #### [facility] [address] [place] [address] Dt/Tm Notified 17:42:[address] [facility] Comment on above: Performed By: #### 1 [id number] #### [facility] [address] [place] [address] pCO2 Guillaume 36.1 mmHg Low 38.0-50.0 [facility] Comment on above: Performed By: #### 1 [id number] #### [facility] [address] [place] [address] pH (BldV) 7.392 [pH] Normal 7.320-7.430 [facility] Comment on above: Performed By: #### 1 [id number] #### [facility] [address] [place] [address] Sample Site OTHER [facility] Comment on above: Performed By: #### 1 [id number] #### [facility] [address] [place] [id number] Sample Type Venous [facility] Comment on above: Performed By: #### 1 [id number] #### [facility] [address] [place] [address] Physician Orderon 12-02-2019 Physician Order [id number]:127 Normal [facility] Vital Signs Date Time Vital Sign Value Performing Clinician Facility 03-24-2023 13:06-0500 Body temperature 97.8 [degF] MD Shaikh Mchugh Work Phone: [facility] 03-24-2023 13:06-0500 Body weight 86.63 kg MD Shaikh Mchugh Work Phone: [facility] 03-24-2023 13:06-0500 Diastolic blood pressure 67 mm[Hg] MD Shaikh Mchugh Work Phone: [facility] 03-24-2023 13:06-0500 Heart rate 68 /min MD Shaikh Mchugh Work Phone: [facility] 03-24-2023 13:06-0500 Respiratory rate 16 /min MD Shaikh Mchugh Work Phone: [facility] 03-24-2023 13:06-0500 SaO2% (BldA) [Mass fraction] 98 % MD Shaikh Mchugh Work Phone: [facility] 03-24-2023 13:06-0500 Systolic blood pressure 130 mm[Hg] MD Shaikh Mchugh Work Phone: [facility] 03-24-2023 12:53-0500 Body height 160.02 cm MD Shaikh Mchugh Work Phone: [facility] 03-11-2023 09:20-0500 Body height 162.56 cm Alta Sharmaine Other [facility] [facility] Other 03-11-2023 09:20-0500 Body mass index (BMI) [Ratio] 32.78 kg/m2 Alta Sharmaine Other [facility] Other 03-11-2023 09:20-0500 Body temperature 96.3 [degF] Alta Sharmaine Other [facility] Other 03-11-2023 09:20-0500 Body weight 86.64 kg Alta Sharmaine Other [facility] [facility] Other 03-11-2023 09:20-0500 Diastolic blood pressure 77 mm[Hg] Alta Sharmaine Other [facility] Other 03-11-2023 09:20-0500 Respiratory rate 18 /min Alta Sharmaine Other [facility] Other 03-11-2023 09:20-0500 SaO2% (BldA) [Mass fraction] 95 % Alta Sharmaine Other [facility] Other 03-11-2023 09:20-0500 Systolic blood pressure 139 mm[Hg] Alta Sharmaine Other [facility] Other 12-08-2022 08:41-0400 Body height 160.02 cm Shaikh Louisd [facility] DO Work Phone: 12-08-2022 08:41-0400 Body mass index (BMI) [Ratio] 32.95 kg/m2 Shaikh Brightwad Work Phone: [facility] 250 DO Work Phone: 12-08-2022 08:41-0400 Body surface area Derived from formula 1.88 m2 Shaikh Brightwad Work Phone: [facility] 250 DO Work Phone: 12-08-2022 08:41-0400 Body weight 84.37 kg Shaikh Brightwad Work Phone: [facility] 250 DO Work Phone: 12-08-2022 08:41-0400 Diastolic blood pressure 60 mm[Hg] Shaikh Brightwad Work Phone: [facility] 250 DO Work Phone: 12-08-2022 08:41-0400 Heart rate 66 /min Shaikh Brightwad Work Phone: [facility] 250 DO Work Phone: 12-08-2022 08:41-0400 Systolic blood pressure 108 mm[Hg] Dial Fawwad Work Phone: [facility] 250 DO Work Phone: 07-01-2021 13:12-0500 Diastolic blood pressure 88 mm[Hg] Dial Yaimawwad Work Phone: [facility] 250 DO Work Phone: 07-01-2021 13:12-0500 Systolic blood pressure 138 mm[Hg] Shaikh Brightwad Work Phone: [facility] 250 DO Work Phone: 07-01-2021 09:20-0500 Diastolic blood pressure 100 mm[Hg] Shaikh Brightwad Work Phone: [facility] 250 DO Work Phone: 07-01-2021 09:20-0500 Systolic blood pressure 148 mm[Hg] Shaikh Brightwad Work Phone: [facility] 250 DO Work Phone: 07-01-2021 09:01-0500 Diastolic blood pressure 98 mm[Hg] Shaikh Brightwad Work Phone: [facility] 250 DO Work Phone: 07-01-2021 09:01-0500 Systolic blood pressure 168 mm[Hg] Shaikh Brightwad Work Phone: [facility] 250 DO Work Phone: 07-01-2021 08:51-0500 Body height 160.02 cm Shaikh Brightwad Work Phone: [facility] 250 DO Work Phone: 07-01-2021 08:51-0500 Body mass index (BMI) [Ratio] 33.83 kg/m2 Dial Yaimawwad Work Phone: [facility] 250 DO Work Phone: 07-01-2021 08:51-0500 Body surface area Derived from formula 1.9 m2 Shaikh Jeison Work Phone: [facility] 250 DO Work Phone: 07-01-2021 08:51-0500 Body weight 86.64 kg Shaikh Jeison Work Phone: [facility] 250 DO Work Phone: 07-01-2021 08:51-0500 Diastolic blood pressure 104 mm[Hg] Shaikh Jeison Work Phone: [facility] 250 DO Work Phone: 07-01-2021 08:51-0500 Heart rate 87 /min Shaikh Jeison Work Phone: [facility] 250 DO Work Phone: 07-01-2021 08:51-0500 Systolic blood pressure 169 mm[Hg] Shaikh Jeison Work Phone: [facility] 250 DO Work Phone: 07-01-2021 08:51-0500 6 1 Shaikh Jeison Work Phone: [facility] 250 DO Work Phone: Comment on above: PHQ-9 TS 05-24-2021 10:00-0500 Body height 162.56 cm Juan Gonzalez Other [facility] [employer] [facility] Other 05-24-2021 10:00-0500 Body mass index (BMI) [Ratio] 32.44 kg/m2 Juan Gonzalez Other [facility] [facility] Other 05-24-2021 10:00-0500 Body weight 85.73 kg Juan Gonzalez Other [facility] [employer] [facility] Other 05-20-2021 10:45-0500 60 1 Shaikh Brightwad Work Phone: [facility] [address] [place] Work Phone: Comment on above: [id number] 05-13-2021 11:59-0500 Diastolic blood pressure 104 mm[Hg] Shaikh Brightwad Work Phone: [facility] 250 DO Work Phone: 05-13-2021 11:59-0500 Systolic blood pressure 162 mm[Hg] Shaikh Brightwad Work Phone: [facility] 250 DO Work Phone: 05-13-2021 11:13-0500 Diastolic blood pressure 100 mm[Hg] Shaikh Brightwad Work Phone: [facility] 250 DO Work Phone: 05-13-2021 11:13-0500 Systolic blood pressure 170 mm[Hg] Shaikh Brightwad Work Phone: [facility] 250 DO Work Phone: 05-13-2021 11:12-0500 Body height 160.02 cm Shaikh Brightwad Work Phone: [facility] 250 DO Work Phone: 05-13-2021 11:12-0500 Body mass index (BMI) [Ratio] 34.9 kg/m2 Dial Yaimawwad Work Phone: [facility] 250 DO Work Phone: 05-13-2021 11:12-0500 Body surface area Derived from formula 1.92 m2 Dial Fawwad Work Phone: [facility] 250 DO Work Phone: 05-13-2021 11:12-0500 Body weight 89.36 kg Shaikh Brightwad Work Phone: [facility] 250 DO Work Phone: 05-13-2021 11:12-0500 Diastolic blood pressure 102 mm[Hg] Shaikh Louisd Work Phone: [facility] 250 DO Work Phone: 05-13-2021 11:12-0500 Heart rate 88 /min Shaikh Louisd Work Phone: [facility] 250 DO Work Phone: 05-13-2021 11:12-0500 Systolic blood pressure 172 mm[Hg] Shaikh Louisd Work Phone: [facility] 250 DO Work Phone: 05-13-2021 11:07-0500 Body height 160.02 cm Shaikh Jeison Work Phone: [facility] 250 DO Work Phone: 05-13-2021 11:07-0500 Body mass index (BMI) [Ratio] 34.9 kg/m2 Shaikh Louisd Work Phone: [facility] 250 DO Work Phone: 05-13-2021 11:07-0500 Body surface area Derived from formula 1.92 m2 Shaikh Brightwad Work Phone: [facility] 250 DO Work Phone: 05-13-2021 11:07-0500 Body weight 89.36 kg Shaikh Louisd Work Phone: [facility] 250 DO Work Phone: 05-13-2021 11:07-0500 Heart rate 88 /min Shaikh Jeison Work Phone: [facility] 250 DO Work Phone: 04-09-2021 11:40-0500 Body height 162.56 cm Juan Carlos Other [facility] [employer] [facility] Other 04-09-2021 11:40-0500 Body mass index (BMI) [Ratio] 32.44 kg/m2 Juan Carlos Other [facility] [facility] Other 04-09-2021 11:40-0500 Body weight 85.73 kg Juan Gonzalez Other [facility] [facility] Other 04-09-2021 11:40-0500 Diastolic blood pressure 72 mm[Hg] Juan Gonzalez Other [facility] [employer] [facility] Other 04-09-2021 11:40-0500 Systolic blood pressure 124 mm[Hg] Juan Carlos Other [facility] [employer] [facility] Other Encounters Encounter Date Encounter Type Care Provider Facility Start: 05-11-2023 End: 05-12-2023 ambulatory Radha Dunaway MD Facility: [facility] Start: 04-13-2023 Telephone encounter Neena Hi [facility] Start: 04-13-2023 End: 04-13-2023 ambulatory SHAIKH JEISON [facility] Other Start: 04-06-2023 End: 04-07-2023 ambulatory Radha Dunaway MD Facility: [facility] Start: 03-24-2023 ambulatory Yakelin Staley Facility:[facility] Start: 03-24-2023 End: 11-21-2023 ambulatory MD Shaikh Mchugh Work Phone: [facility] Work Phone: Start: 03-24-2023 End: 03-24-2023 Registered Recurring MD Shaikh Mchugh Work Phone: [facility] Work Phone: Start: 03-11-2023 End: 03-11-2023 ambulatory Alta Sharmaine Other [facility] [employer] Other Start: 03-11-2023 Office outpatient vi sit 25 minutes Alta Sharmaine [facility] [place] Start: 03-04-2023 End: 03-04-2023 ambulatory Alta Sharmaine Facility:[facility] Start: 03-04-2023 End: 03-04-2023 ambulatory MD Shaikh Mchguh Work Phone: [facility] Work Phone: Start: 03-04-2023 End: 03-04-2023 Patient encounter procedure MD Shaikh Mchugh Work Phone: [facility] [place] Work Phone: Start: 12-08-2022 Office outpatient vi sit 15 minutes Shaikh Jeison Work Phone: [facility] 250 DO Work Phone: Start: 12-08-2022 Patient encounter procedure Shaikh Jeison Work Phone: [facility] 250 DO Work Phone: Start: 12-08-[address] Shashi Cottrell II Facility: Start: 11-10-2022 End: 11-11-2022 ambulatory Radha Dunaway MD Facility:[facility] Start: 10-16-2022 ambulatory SHAIKH Gurjit Wilson y:[facility] Start: 09-18-2022 End: 09-18-2022 ambulatory Alta Sharmaine Facility:[facility] Start: 07-17-2022 End: 07-18-2022 ambulatory SHAIKH Gurjit HERNADEZD Facility:[facility] Start: 06-29-2022 Rx Renewal Shaikh Louisd Work Phone: [facility] 250 DO Work Phone: Start: 06-28-2022 End: 06-29-2022 ambulatory SHAIKH Gurjit HERNADEZD Facility:[facility] Start: 06-12-[address] ELIGIO HODGE . Faci lity:[facility] Start: 05-27-2022 End: 05-27-[address] ELIGIO HODGE . Facility:[facility] Start: 05-13-2022 End: 05-13-[address] ELIGIO HODGE . Facility:[facility] Start: 04-10-2022 End: 04-11-[address] ELIGIO HODGE . Facility:[facility] Start: 02-17-2022 End: 02-18-2022 ambulatory SHAIKH Gurjit HERNADEZGiuliana Facility:[facility] Start: 01-10-[address] Shashi Cottrell II Facility: Start: 01-09-2022 End: 01-10-2022 ambulatory SHAIKH Gurjit MCHUGH Facility:[facility] Start: 11-28-2021 End: 11-29-2021 ambulatory SHAIKH Gurjit MCHUGH Facility:[facility] Start: 10-17-2021 End: 10-18-2021 ambulatory EVA ROSEN . Facility:[facility] Start: 07-01-2021 AUDIT Shaikh Louisd Work Phone: [facility] 250 DO Work Phone: Start: 05-28-2021 FUV, Provider: Shashi Cottrell, Status: Pen, Time: 10:50 AM Shaikh Brightwad Work Phone: [facility] 250 DO Work Phone: Start: 05-26-2021 Chart Update Shaikh Brightwad Work Phone: [facility] 250 DO Work Phone: Start: 05-24-2021 End: 05-24-2021 ambulatory Juan Gonzalez Other [employer] Other Start: 05-24-2021 Office outpatient vi sit 15 minutes Juan Gonzalez [facility] Start: 05-20-2021 Patient encounter procedure Shaikh Jeison Work Phone: [facility] [address] [place] Work Phone: Start: 05-13-2021 Office consultation new/estab patient 60 min Shaikh Jeison Work Phone: [facility] 250 DO Work Phone: Start: 04-09-2021 End: 04-09-2021 ambulatory Juan Gonzalez Other [facility] [employer] Other Start: 04-09-2021 Office outpatient ne w 45 minutes Juan Gonzalez [facility] Procedures Date Procedure Procedure Detail Performing [...] 03-04-2023 Bacteria identified in Urine by Culture [facility] Start: 12-12-2022 FUV, Provider: Shashi Cottrell, Status: Pen, Time: 3:20 PM FUV, Provider: Shashi Cottrell, Status: Pen, Time: 3:20 PM [facility] 250 DO Work Phone: Start: 01-10-2022 FUV, Provider: Shashi Cottrell, Status: Pen, Time: 2:00 PM FUV, Provider: Shashi Cottrell, Status: Pen, Time: 2:00 PM [facility] 250 DO Work Phone: Start: 07-01-2021 FUV, Provider: Shashi Cottrell, Status: Pen, Time: 8:40 AM FUV, Provider: Shashi Cottrell, Status: Pen, Time: 8:40 AM [facility] [address] [place] Work Phone: Start: 05-28-2021 FUV, Provider: Shashi Cottrell, Status: Pen, Time: 10:50 AM FUV, Provider: Shashi Cottrell, Status: Pen, Time: 10:50 AM [facility] 250 DO Work Phone: Start: 05-20-2021 ECHO, Provider: JACEY ALDRIDGEI ULTRASOUND 01,[id number], Status: Pen, Time: 10:45 AM ECHO, Provider: JACEY HHVI ULTRASOUND 01,[id number], Status: Pen, Time: 10:45 AM [facility] 250 DO Work Phone: [facility] Immunizations Immunization Date Immunization Notes Care Provider Yaima saul 10-20-2020 pneumococcal polysaccharide vaccine, 23 valent Shaikh Jeison Work Phone: [facility] 250 DO Work Phone: 08-23-2020 COVID-19 Vaccine Moderna - Documentation Purposes Only Juan Gonzalez Other [facility] [employer] Other 05-04-2020 pneumococcal conjuga te vaccine, 13 valent Shaikh Jeison Work Phone: [facility] 250 DO Work Phone: Comment on above: Series: 02-03-2020 Influenza, injectabl e, [place] Canine Kidney, preservative free, quadrivalent Dial Fateodorawad Work Phone: [facility] Work Phone: 02-09-2019 Vaxneuvance 0.5 ML Intramuscular Suspension Prefilled Syringe Shaikh Jeison Work Phone: [facility] DO Work Phone: 04-05-2017 influenza, injectabl e, quadrivalent, preservative free Dial Fawwad Work Phone: [facility] DO Work Phone: Payers Date Payer Category Payer Self-pay [id number] 2022 Medicaid [id number] 2022 Private Health Insurance 1959 Medicare [id number] 2.16. [id number] 1955 Unknown [id number] 2.16.84 0.1.769229.3.579.2.593 1955 Unknown [id number] 2.16.84 0.1.474423.3.579.2.593 1955 Unknown [id number] 2.16.84 0.1.600169.3.579.2.593 1955 Unknown [id number] 2.16.84 0.1.008117.3.579.2.593 1955 Unknown [id number] 2.16.84 0.1.829916.3.579.2.593 1955 Unknown [id number] 2.16.84 0.1.279700.3.579.2.593 1955 Unknown [id number] 2.16.84 0.1.079922.3.579.2.593 1955 Unknown [id number] 2.16.84 0.1.323628.3.579.2.593 1955 Unknown [id number] 2.16.84 0.1.732690.3.579.2.593 1955 Unknown [id number] 2.16.84 0.1.164644.3.579.2.593 1955 Unknown [id number] 2.16.84 0.1.721281.3.579.2.593 1955 Unknown [id number] 2.16.84 0.1.797022.3.579.2.593 1955 Unknown [id number] 2.16. 840.1.800007.3.579.2.356 1955 Unknown [id number] 2.16. 840.1.153014.3.579.2.356 1955 Unknown [id number] 2.16.840 .1.234835.3.579.2.1259 1955 Unknown [id number] 2.16. 840.1.445293.3.579.2.196 1955 Unknown [id number] 2.16. 840.1.969565.3.579.2.196 1955 Unknown [id number] 2.16. 840.1.545425.3.579.2.196 Medicare [id number] 2.1 6.840.1.547214.19 Unknown Unknown [id number] 2.16.8 40.1.101920.3.579.2.531 Unknown [id number] 2.16.8 40.1.378974.3.579.2.531 Unknown [id number] 2.16.8 40.1.428720.3.579.2.531 Social History Date Type Detail Facility Daily caffeine consumption Daily caffeine consumption [facility] [address] DO Work Phone: Comment on above: 2-3 cups of coffee d aily.; 1/2 pack daily.; Sex Assigned At Sex Assigned At Bir th [facility] [employer] [facility] Other Start: 01-24-2021 End: 03-24-2023 Tobacco smoking status NHIS Smoker (finding) [facility] Start: 1955 Sex Assigned At Female F [facility] Functional Status Date Assessment Result Facility 07-01-2021 PHQ-9 [id number] Mild (5-9) [facility] [place] [facility] 250 DO Work Phone: Clinical Notes [...] I have prescribed oral magnesium once daily. [facility] [employer] [facility] Other [id number] NotePAIN MANAGEMENT CONSULTATION CONSULTATION DATE: 07/17/2022 HISTORY: [...] in three months' time unless otherwise indicated.[facility] [id number] NoteCONSULTATION CONSULTATION DATE: 04/10/2022 HISTORY OF PRESENT [...] weeks ago, and she completed those in [place]. She is continuing her home exercises as [...] thereafter. Patient does agree with this plan.[facility] [id number] NoteCONSULTATION CONSULTATION DATE: 01/09/2022 HISTORY OF PRESENT [...] weeks. Patient prefers to do this in [place]. She will be followed up in the office in three months' time and was encouraged to take a multivitamin daily. Patient agrees with this plan of care. [facility] [id number] NoteCONSULTATION CONSULTATION DATE: 10/17/2021 HISTORY OF PRESENT [...] in three months' time unless otherwise indicated. [facility] Signed and Approved by: EVA ROSEN . 10/30/2021 16:23:00[facility]06-16-2022 NoteCONSULTATION PROCEDURE DATE:10/17/2021 PREOPERATIVE DIAGNOSIS: Bilateral lumbar [...] will be followed up in the office. [facility] Signed and Approved by: EVA ROSEN . 10/30/2021 16:23:00[facility]01-21-2022 Evaluation note* Encounter Date Diagnosis Assessment Notes [...] at this point no intervention is needed. [facility] [employer] [facility] Other 12-07-2021 Evaluation note* Encounter Date Diagnosis [...] - M50.123) Apr, Cardiomegaly (ICD-10 - I51.7) [facility] [employer] [facility] Other 01-15-2021 History of Present illness Narrative* [...] she will follow-up after testing is completed [facility] Work Phone: 1(534) 542-660801-10-2021 History of Present illness Narrative* Patient is [...] she will follow-up after testing is completed [facility] Work Phone: 1(816) 707-961608-01-2020 History general Narrative - Reported* Type Description Date Medical History TYPE II DIABETES Medical History HYPERTENSION Medical History ENLARGE HEART Surgical History CHOLECYSTECTOMY Hospitalization History PNEUMONIA 12/2019 [facility] [employer] [facility] Other chief complaint Narrative - ReportedVIDHYA IBARRA is being seen for a consultation for cardiomegaly.[facility] 250 DO Work Phone: Chiim complaint Narrative - ReportedVIDHYA IBARRA is being seen for a consultation for cardiomegaly.[facility] Work Phone: Consult note Author [facility] March 25, 2023 10:10am Note Date/Time March 24, 2023 1:49pm [facility] [place] [address] Hem/Onc Consult Note - OP Signed Patient: Vidhya Ibarra MR#: [id number] : 1955 Acct:[id number] Age/Sex: 67 / F Type: REG RCR [...] any worse than it does when touched. [facility] - Medical History Medical History: Medical [...] for coordination of care (as documented) and [id number] counseling of patient and/or family. Dictated By: Yakelin Staley APRN DD/ 1349 Signed By: <Electronically signed by JOSE Staley> 03/25/23 1010 [facility] Work Phone: Evaluation noteNo assessment information available [facility] Work Phone: Evaluation noteNo InformationNocox north [employer] Other History of Present illness Narrative* Patient [...] weight loss and more importantly smoking cessation. [facility] [address] DO Work Phone: Summary Purpose [...] Cardiomegaly (I51.7) Referral Organization [facility] urosurgery Referring Provider First Name Juan Referring Provider Last Name Carlos Referring Provider Specialty Neurologica l Surgery Referred Organization [facility] enter Referred Provider Jason Johnson Referred Address [address] ,[place], [place],[address] Referred Provider Specialty Cardiac Surg nicholas Referral Priority Routine General Notes Neena Estevez 021 08:49:37 AM >Received today and [facility]16/2021 03:27:00 PM >[facility] office request us to fax the referral to them and they will review and call patient to schedule their appointment. Referral was fax Reason Evaluate and Treat Diagnosis 1 Cervical disc disord er at C5-C6 level with radiculopathy (M50.122) Referral Organization [facility] urosurgery Referring Provider First Name Juan Referring Provider Last Name Carlos Referring Provider Specialty Neurologica l Surgery Referred Organization Unknown Facility Referred Provider Specialty Physical The rapist Referral Priority Routine Chief Complaint IVDHYA YUSUFKANWAL is being seen for an annual follow-up of.VIDHYA HEKANWAL is being seen for an annual follow-up of. Chief Complaint and Reason for Visit Chief Complaint N18.30 E11.22 I12.9 N25.81 K76.89 E89.0 E83.4 Chief Complaint N18.30 E11.22 I12.9 N25.81 K76.89 E89.0 E83.4 Leukocytosis Additional Source Comments INFORMATION SOURCE (unrecogn ized section and content) DATE CREATED AUTHOR 12/03/2019 [employer] [facility] DATE CREATED AUTHOR AUTHOR'S ORGANIZ ATION 05/26/2021 [facility] DATE CREATED AUTHOR AUTHOR'S ORGANIZ ATION 10/10/2022 [facility] DATE CREATED AUTHOR AUTHOR'S ORGANIZ ATION 12/08/2022 [facility] DATE CREATED AUTHOR AUTHOR'S ORGANIZ ATION 12/09/2022 [employer] DATE CREATED AUTHOR AUTHOR'S ORGANIZ ATION 03/26/2023 [facility] DATE CREATED AUTHOR AUTHOR'S ORGANIZ ATION 04/14/2023 [facility] EPIC DATE CREATED AUTHOR AUTHOR'S ORGANIZ ATION 05/26/2023 [facility] REASON FOR VISIT (unrecogniz ed [...] Status: Active Member Role Status Dates Shaikh Jeisno MD Primary Care Provider Active Yakelin Staley [...] BE BASED ON THE PRIMARY CLINICAL RECORDS. [facility] [employer] provides no warranty or guarantee of the accuracy or completeness of information in this document.
[2023-06-01 08:26] LABS: Glucometer 216 mg/dL (74-106)
[2023-06-01 08:29] VITALS: BP 116/68; PULSE 63; RESP 18; TEMP 36.6; O2SAT 96
[2023-06-01 09:10] VITALS: BP 114/56; PULSE 60; RESP 14; RESP 16; O2SAT 94
[2023-06-01] MEDS: TRIAMCINOLONE ACETONIDE 40 MG/ML VIAL INJ (09:11)
[2023-06-01] MEDS: LIDOCAINE HCL 2% 400 MG/20 ML MDV 15 ML INJ (09:11)
[2023-06-01] MEDS: BUPIVACAINE HCL 0.25% PF 25 MG/10 ML VIAL INJ (09:11)
[2023-06-01 09:25] VITALS: BP 99/56; PULSE 59; O2SAT 94
--- NOTE | 2023-06-01 09:25 | P.ON_ITS ---
Date of procedure: 06/01/23 Pre-op diagnosis: Lumbar spondylosis Post-op diagnosis: same as pre-op Procedure: Procedure: Bilateral L4-5, L5-S1 radiofrequency ablation Medications: Bupivacaine 0.25% 6cc, kenalog 80mg, lidocaine 2% 6cc The patient was seen and examined in the preoperative holding area.? The site was marked.? Written informed consent was obtained and placed on the chart.? The patient was brought to the medical procedure unit and placed in the prone position.? A timeout was completed verifying correct patient, procedure, positioning, and special requirements.? The skin overlying the target points, the designated medial branch, were prepped and draped in the usual sterile fashion.? The target point was achieved with a 20-gauge 15 cm with a 10 mm curved active tip radiofrequency cannula under direct fluoroscopic visualization.? The needle was inserted at level L4 on the right side. Needle tip position was confirmed with lateral fluoroscopic position.? Motor stimulation was carried out at 2 Hz up to 5 volts with the absence of extremity activity.? This was repeated at level L5, S1 on right side.?? Sensory stimulation was carried out.? Concordant pain was realized at the above- mentioned sites.? Then radiofrequency lesioning was carried out times 90 seconds at 80 degrees times 2 lesions at each level.? The radiofrequency probe was removed prior to cannula removal.? The above-mentioned injectate was placed in 1 mL increments.? The needle was removed. The same procedure, with the same steps, was then completed on the left side at the same levels. Insertion sites were covered.? The patient was taken to the postoperative recovery area and monitored for an appropriate length of time before being found suitable for discharge in the company of a responsible adult. Anesthesia: Local Surgeon: Radha Dunaway Pathology: none sent Condition: stable Disposition: no change
[2023-06-01 09:30] VITALS: O2SAT 96
== END 2023-06-01 09:35 | disposition home or self-care (01) ==
PROVIDERS: PCP Internal Medicine; Visit Provider Anesthesiology
DX: M47.816 Spondylosis without myelopathy or radiculopathy, lumbar region (principal); Z79.4 Long term (current) use of insulin
CPT/HCPCS: 36415; 64635; 64636; 82948; J0665; J3301

== ENCOUNTER 2023-07-02 08:34 | Outpatient (OUT) | payer MEDICARE, SELFPAY ==
--- NOTE | 2023-07-02 08:37 | P.CN_ITS ---
Consult Note: HPI Data of Consult Patient: known to practice within the last 3 years Consult date: 04/16/23 Requesting Physician: Renate Flores NP Primary Care Provider: Shaikh Jeison MD Consult Narrative Reason for consult: f/u Narrative: Vidhya Pillai a pleasant 67 year old female presents for evaluation and jewel oliverio of chronic back pain. Today rating pain 1/10 in low back, reports it feels like a twinge, worse with activity and improved with rest and sitting. Pain increases to 5-6/10 with activity. Patient reports 20% improvement from bilateral L4-5 L5-S1 thermal RFAs. Patient would like to discuss additional options as she is still experiencing moderate to severe pain and FERNANDEZ 54%. Patient continues to require percocet 5-325mg BID PRN for pain to improve functional ability. cc:: CC: Renate Flores NP Review of Systems ROS Status of ROS 10 or more systems reviewed and unremark able except as noted in history and below Musculoskeletal Reports: back pain PFSH PFSH Medical History Osteoarthritis ?M19.90 - Unspecified osteoarthritis, unspecified site (ICD-10) Low back pain ?M54.50 - Low back pain, unspecified (ICD-10) Numbness and tingling ?R20.0 - Anesthesia of skin (ICD-10) ?R20.2 - Paresthesia of skin (ICD-10) Diabetes ?E11.9 - Type 2 diabetes mellitus without complications (ICD-10) Smoker ?F17.200 - Nicotine dependence, unspecified, uncomplicated (ICD-10) COPD (chronic obstructive pulmonary disease) ?J44.9 - Chronic obstructive pulmonary disease, unspecified (ICD-10) Angina at rest ?I20.8 - Other forms of angina pectoris (ICD-10) Hypertension ?I10 - Essential (primary) hypertension (ICD-10) Surgical History History of cholecystectomy ?Z90.49 - Acquired absence of other specified parts of digestive tract (ICD- 10) S/P dilatation and curettage ?Z98.890 - Other specified postprocedural states (ICD-10) H/O cardiac catheterization ?Z98.890 - Other specified postprocedural states (ICD-10) Meds Home Medications and Allergies Home Medications Medication Instructions Recorded Confirmed Type gabapentin 600 mg tablet 600 mg PO TID 10/16/22 06/01/23 History glipizide 10 mg tablet 10 mg PO BID 10/16/22 06/01/23 History insulin NPH isoph U-100 human 100 20 unit subcut BID 10/16/22 06/01/23 History unit/mL subcutaneous suspension (Novolin N NPH U-100 Insulin isophane) metoprolol tartrate 50 mg tablet 50 mg PO BID 10/16/22 06/01/23 History oxycodone-acetaminophen 5 mg-325 1 tab PO BID 10/16/22 06/01/23 History mg tablet paroxetine HCl 10 mg tablet 10 mg PO DAILY 10/16/22 06/01/23 History pramipexole 0.25 mg tablet 0.25 mg PO DAILY 10/16/22 06/01/23 History (Mirapex) trazodone 150 mg tablet 150 mg PO BEDTIME 10/16/22 06/01/23 History atorvastatin 40 mg tablet (Lipitor) 40 mg PO DAILY 04/16/23 06/01/23 History bumetanide 0.5 mg tablet 0.5 mg PO DAILY 04/16/23 06/01/23 History magnesium oxide 400 mg (241.3 mg mg 06/01/23 History magnesium) tablet oxycodone-acetaminophen 5 mg-325 1 tab PO BID PRN pain #60 tabs 06/08/23 Rx mg tablet (Percocet) Allergies Allergy/AdvReac Type Severity Reaction Status Date / Time prednisone Allergy Intermediate Rash Verified 06/01/23 08:25 Exam Constitutional Documenting provider has reviewed patient's vital signs: yes Common normals: no apparent distress, oriented x3, healthy appearing, alert and well nourished General appearance: cooperative Orientation/consciousness: Yes awake, Yes oriented to person, Yes oriented to place and Yes oriented to time HENMT Common normals: normocephalic, hearing grossly normal bilaterally and moist oral mucous membranes Head and scalp: normocephalic Eye Common normals: PERRL Pupil: PERRL Neck & C-Spine Common normals: full ROM General: normal visual inspection Chest Common normals: inspection of chest normal Respiratory Common normals: normal respiratory effort, no retractions and no use of accessory muscles Effort & inspection: able to speak in complete sentences and symmetric chest movement Back & Pelvis Common normals: thoracic and lumbar spine normal to inspection and straight leg raise negative bilaterally Lumbar spine/lower back: pain with ROM and straight leg raise negative bilaterally Other: bilateral facet loading mild on left no radiculopathy present on exam positive left SIJ pain, positive fabid fader thigh thrust and gaenslens. tender over left PSIS Extremity Common normals: normal to inspection and full ROM Neuro Common normals: oriented x3, CN's II-XII intact bilaterally, moves all extremities, no focal motor deficits, no sensory deficits noted and deep tendon reflexes 2+ bilaterally Sensorium/orientation: alert Motor exam: strength 5/5 throughout and no movement abnormalities noted Psych Common normals: mental status grossly normal, thought process normal, cooperative, affect normal, speech normal and activity/motor behavior normal Speech: normal speech Thought process: normal thought process Assessment and Plan Assessment and Plan (1) Lumbar spondylosis: Assessment and Plan: The patient has had over 3 months of moderate to severe low back pain with functional impairment and inadequate response to conservative care including NSAIDS (unless there are contraindication such as concurrent blood thinners), multiple oral or topical pain medications, and home exercise program/physical therapy.? Patient has completed >6 weeks of guided home exercise program and/or formal physical therapy program without relief of their symptoms.? I have reviewed the imaging of the lumbar spine and no red flags were identified.? The Oswestry Disability Index was completed, and the patient scored a 54%.? The patient noted the following:?? moderate to severe pain, pain with walking, pain with standing, pain with heavy lifting, pain impacting sleep and social life as well as travel. We discussed the risks and benefits of the procedure with the patient, and we are NOT planning on using sedation as outlined in the guidelines from Medicare unless there is a documented reason that sedation would be strongly recommended.?? ?The procedure will be completed with fluoroscopic guidance.? 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 The patient does not report intolerable side effects. The patient is NOT opioid naive and non-pharmacologic and non-opioid treatment has failed to significantly relieve the patient's pain and improve functionality. The patient has a diagnosis that is related to a somatic or visceral pain etiology. ? ?? I reviewed with the patient the potential risks and side effects with the use of? opioid medications including but not limited to respiratory depression,? sedation, and even . I verified the patient has access to naloxone should? these effects occur. I advised the patient to avoid the use of any other? sedation substances including alcohol, THC, and benzodiazepines while? taking opioid medications due to the risk of compounding side effects and? detrimental outcomes. I reviewed the SCANNING TECH, pain treatment agreement, urine? drug screen, and opioid start talking forms. The patient was advised to let? their family know they had Naloxone in case they would need to administer? the medication.? ?? A drug screen was completed within the last year, and no aberrancies were noted regarding their use of controlled substances. The patient understands they are subject to the terms and conditions of the pain contract that they have signed. ? ?? I have checked an [place] report on this patient today and there are no aberrancies noted in the prescribing history.? (6) Degenerative disc disease: Plan discussed the etiology of the pain and symptoms she is now experincing is likely related to INC and lumbar stenosis. Patient has lumbar stenosis and ligamentum flavum thickening noted on MRI. Patient declining NS referral left L4-5 L5-S1 TFESI left nerve block of SIJ continue current medications, tolerating without side effects. continues to notice improvement and pain and functional ability narcan previously prescribed f/u 2 weeks after injection
--- OUTSIDE RECORDS SUMMARY | 2023-07-02 08:46 | XMS_ITS | CCD ---
Author Name Unknown Address [address] [place] [address] Organization [facility] Care Team Providers Care Accounting Manager Assistant Controller Name Role Phone Jeison Dial Unavailable Unavailable Unavailable Juan Gonzalez Unavailable Unavailable Unavailable NAVEEN ., DR ELIGIO Burns Admitting Unavailable HODGE ., DR ELIGIO Burns Consulting Unavailable HODGE ., DR ELIGIO Burns Attending Unavailable [facility] Primary Care Unavailable SHEY LOMELITANY Consulting Unavailable HODGE ., DR ELIGIO Burns Admitting Unavailable [facility] Primary Care Unavailable ROSEN ., EVA Consulting Unavailable HODGE ., DR ELIGIO Burns Attending Unavailable HODGE ., DR ELIGIO Burns Admitting Unavailable [facility] Primary Care Unavailable ROSEN ., EVA Consulting Unavailable HODGE ., DR ELIGIO Burns Attending Unavailable [facility] Primary Care Unavailable LAKSHMIPATHY ., NARENDRANATH Admitting Catrina vailable LAKSHMIPATHY ., NARENDRANATH Attending Catrina vailable HODGE ., DR ELIGIO Burns Admitting Unavailable [facility] Primary Care Unavailable ROSEN ., EVA Consulting Unavailable HODGE ., DR ELIGIO Burns Attending Unavailable [facility] Primary Care Unavailable ROSEN ., EVA Consulting Unavailable HODGE ., DR ELIGIO Burns Attending Unavailable HODGE ., DR ELIGIO Burns Admitting Unavailable ROSEN ., EVA Consulting Unavailable HODGE ., DR ELIGIO Burns Admitting Unavailable NEENA MACK Primary Care Unavailable HODGE ., DR ELIGIO Burns Attending Unavailable [facility] Primary Care Unavailable FAWWAD, DIAL H Consulting Unavailable FAWWAD, DIAL H Attending Unavailable FAWWAD, DIAL H Admitting Unavailable FAWWAD, DIAL H Consulting Unavailable FAWWAD, DIAL H Attending Unavailable FAWWAD, DIAL H Admitting Unavailable FAWWAD, DIAL H Primary Care Unavailable FAWWAD, DIAL H Primary Care Unavailable FAWWAD, DIAL H Attending Unavailable FAWWAD, DIAL H Admitting Unavailable JUSTO, DR NADJA Malcolm Consulting Unavailable CONNEI ., ANA CRISTINA Consulting Unavailable FAWWAD, DIAL H Consulting Unavailable FAWWAD, DIAL H Primary Care Unavailable ROSEN ., EVA Consulting Unavailable NAVEEN ., DR ELIGIO Burns Attending Unavailable HODGE ., DR ELIGIO Burns Admitting Unavailable HODGE ., DR ELIGIO Burns Admitting Unavailable FAWWAD, DIAL H Primary Care Unavailable NAVEEN ., DR ELIGIO Burns Consulting Unavailable NAVEEN ., DR ELIGIO Burns Attending Unavailable Los ABDUL, Dr. Shashi Salas Attending Unavailable Los II, Dr. Shashi Salas Referring Unavailable Los ABDUL, Dr. Shashi Salas Attending Unavailable MD Je[facility] Primary Care Provider MD Alta Schmid Attending Provider Alta Schmid Unavailable MD Je[facility] Primary Care Provider [phone] MD Alta Schmid Attending Provider JOSE Staley Attending Provider MD Alta Schmid Referring Provider Neena Hi Unavailable SHAIKH MCHUGH Attending Unavailable Gume PRAJAPATI, Radha Hawkins Attending Unavailable Gume PRAJAPATI, Radha Hawkins Attending Unavailable Gume PRAJAPATI, Radha Hawkins Attending Unavailable MD Jeison [facility] Primary Care Provider JOSE Staley Attending Provider MD Alta Schmid Referring Provider Sharmaine, Alta Admitting Unavailable Alta Schmid Attending Unavailable Shaikh Mchugh Primary Care Unavailable Alta Schmid Admitting Unavailable Alta Schmid Attending Unavailable Shaikh Mchugh Primary Care Unavailable Yakelin Staley Attending Unavail able Alta Schmid Referring Unavailable Shaikh Mchugh Primary Care Unavailable Yakelin Staley Admitting Unavail able Allergies Allergy Classification Reported Allergen(s) Allergy Type Date of Onset Reaction(s) Facility (14 sources) predniSONE; Translations: [predniSONE] Drug Allergy 1 Hives, Unknown [facility] (2 sources) predniSONE Drug Allergy 5 [facility] (1 source) predniSONE Drug Allergy 4 [facility] Medications Current Medications Medication Drug Class(es) Dates Sig (Normalized) Sig (Original) acetaminophen 325 mg / oxyCODONE hydrochloride 5 mg oral tablet (17 sources) Opioid Agonist Start: 01-24-2021 End: 03-23-2023 take 1 tablet by mouth twice daily Oxycodone-Acetami nophen Active 1 TAB PO Twice daily March 23, 2023 12:00am take 1 tablet by rfaat th every twelve hours as needed for pain Percocet 5-325 MG Oral Tablet TAKE 1 TAB LET EVERY 12 HOURS NEEDED FOR PAIN. Quantity: 0 Refills: 0 Ordered: 13-May-2021 DO Active atorvastatin 40 mg oral tablet (4 sources) HMG-CoA Reductase Inhibitor Start: 03-23-2023 take 40 mg by mouth once daily Atorvastatin Active 40 MG PO Daily March 23, 2023 12:00am bumetanide 0.5 mg oral tablet (17 sources) Loop Diuretic Start: 01-24-2021 End: 03-23-2023 take 0.5 mg by mouth once daily Bumetanide Active 0.5 MG PO Daily March 23, 2023 12:00am take 1 tablet by rafat th every twenty-four hours Bumetanide 0.5 MG 1 TAB BY MOUTH Orally every 24 hrs Active doxycycline hyclate 100 mg oral tablet (1 source) Tetracycline-class Drug Start: 02-21-2024 take 2 tablets by mouth once daily Doxycycline Hyclate Active 100 MG PO Twice daily June 24, 2023 12:00am take 2 tablets daily for 14 days gabapentin 600 mg oral tablet (17 sources) Anti-epileptic Agent Start: 03-23-2023 take 600 mg by mouth three times daily Gabapentin Active 600 MG PO Three times daily March 23, 2023 12:00am Start: 01-24-2021 End: 03-23-2023 take 400 mg by mouth three times daily Gabapentin Discontinued 400 MG PO Three times daily January 23, 2021 11:00pm March 23, 2023 2:48pm glipiZIDE 10 mg oral tablet (17 sources) Sulfonylurea Start: 03-23-2023 take 10 mg [...] / losartan potassium 100 mg oral tablet (4 sources) Thiazide Diuretic, Angiotensin 2 Receptor Niko Start : 03-23 take 1 tablet by mouth once daily Losartan-Hydrochlorothia zide Active 1 TAB PO Daily March 23, 2023 12:00am 3 ml insulin isophane, human 100 unt/ml pen injector (2 sources) NovoLIN N FlexPe n 100 UNIT/ML as directed Subcutaneous 20 UNITS TWICE A DAY Active Insulin Nph And Regular Human (2 sources) Insulin Start : 03-24 Insulin Nph And [...] Active metoprolol tartrate 50 mg oral tablet (17 sources) beta-Adrenergic Niko Start : 03-23 take 50 mg by mouth twice daily Metoprolol Tartrate Active 50 MG PO Twice daily March 23, 2023 12:00am Start: 01-24-2021 End: 03-23-2023 take 50 mg by mouth three times daily Metoprolol Tartrate Discontinued 50 MG PO Three times daily January 23, 2021 11:00pm March 23, 2023 2:48pm take 2 tablets by mo [facility] once daily Metoprolol Tartrate 50 MG Oral Tablet TAKE 2 TABLETS DAILY. Quantity: 0 Refills: 0 Ordered: 01-Jul-2021 DO Active take 1 tablet by rafat once daily Metoprolol Tartrate 50 MG Oral Tablet TAKE 1 TABLET EVERY 12 HOURS DAILY. Quantity: 0 Refills: 0 Ordered: 13-May-2021 DO Active nystatin 100 unt/mg topical powder (1 source) Polyene Antifungal Start: 06-24-2023 Nystatin Ac tive 1 APPLIC TOPICAL Twice daily June 24, 2023 12:00am apply to dry skin under breasts 2 times daily PARoxetine hydrochloride 20 mg oral tablet (11 sources) Serotonin Reuptake Inhibitor Start: 03-23-2023 take 20 mg by mouth once daily Paroxetine Hcl Active 20 MG PO Daily March 23, 2023 12:00am Start: 01-24-2021 End: 03-23-2023 take 10 mg by mouth once daily Paroxetine Hcl Disconti nued 10 MG PO Daily January 23, 2021 11:00pm March 23, 2023 2:48pm pramipexole dihydrochloride 0.5 mg oral tablet (4 sources) Nonergot Dopamine Agonist Start: 03-23-2023 take [...] Active traZODone hydrochloride 100 mg oral tablet (17 sources) Serotonin Reuptake Inhibitor Start: 03-23-2023 take [...] Sig (Original) allopurinol 300 mg oral tablet (13 sources) Xanthine Oxidase Inhibitor Start: 1 End: 3 take 300 mg by mouth once daily Allopurinol Discontinued 300 MG PO Daily January 23, 2021 11:00pm March 23, 2023 2:48pm amLODIPine 2.5 mg oral tablet (3 sources) Dihydropyridine Calcium Channel Niko Start: 1 [...] 0 Refills: 0 Ordered: 13-May-2021 DO Active cephalexin 500 mg oral capsule (1 source) Cephalosporin Antibacterial Start: 3 End: 4 take 500 mg by mouth three times daily Cephalexin Discontinued 500 MG PO Three times daily 15 09March 24, 2023 12:00am June 24, 2023 10:13am hydroCHLOROthiazide 12.5 mg / lisinopril 10 mg [...] DO Active lisinopril 2.5 mg oral tablet (5 sources) Angiotensin Converting Enzyme Inhibitor Start: 1 End: 3 take 2.5 mg by mouth once daily Lisinopril Discontinued 2.5 MG PO Daily January 23, 2021 11:00pm March 23, 2023 2:48pm lovastatin 40 mg oral tablet (11 sources) HMG-CoA Reductase Inhibitor Start: 1 End: 3 take 40 mg by mouth once daily Lovastatin Discontinued 40 MG PO Daily January 23, 2021 11:00pm March 23, 2023 2:48pm metFORMIN hydrochloride 500 mg oral tablet (11 sources) Biguanide Start: 1 End: 3 take 500 mg by mouth [...] DO Active tiZANidine 4 mg oral tablet (11 sources) Central alpha-2 Adrenergic Agonist Start: 01-24-2021 [...] Onset: 3 Diseases of white blood cells (8 sources) Elevated white blood cell count, unspecified; [...] encounter status; Translations: [Other specified vaccination] Episodic Mycoses (2 sources) Mycosis; Translations: [Candidiasis, unspecified] 06-24-2023 Episodic Nonmalignant breast conditions (3 sources) Other specified disorders of breast; Translations: [Breast lump] Onset: 2 06-24-2023 Episodic Other and ill-defined heart disease (12 [...] sources) Hypomagnesemia; Translations: [Hypomagnesemia] Onset: 3 Chronic Skin and subcutaneous tissue infections (2 sources) Furuncle; Translations: [Furuncle, unspecified] 06-24-2023 Episodic Spondylosis; intervertebral disc disorders; other back [...] Other Problems Problem Classification Problem Date Documented Date Episodic/Chronic Nonspecific chest pain (4 sources) Chest pain, unspecified; Translations: [CHEST PAIN UNSPECIFIED] Onset: 11-28-2021 Episodic Other aftercare (1 source) Other continuous churn buttermaker (current) drug therapy; Translations: [OTH ALF CURRENT DRUG THERAPY] Onset: 12-04-2021 Episodic Other lower respiratory disease (1 source) Shortness of breath; Translations: [SHORTNESS OF BREATH] Onset: 12-04-2021 Episodic Other nutritional; endocrine; and metabolic disorders (2 sources) Hyperuricemia 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 F [facility] Complete Blood Count Auto Di ffon 06-22-2023 Basophils (Bld) [#/Vol] 0.1 10*3/uL Normal 0.0-0.2 [facility] Comment on above: Result Comment: PERF ORMED BY: [place] [address] PATHOLOGIST BONDACTOR MACHINE OPERATOR SHANTE LOMBARDI M.D. Performed By: #### C BCNO, PROCRERAT, CUU, ADDONUAPLUS, RENAL, MG, URIC, PTH, [id number] #### [facility] [address] [place] [address] Basophils/100 WBC (Bld) 0.8 % Normal . F [facility] Comment on above: Performed By: #### C BCNO, PROCRERAT, CUU, ADDONUAPLUS, RENAL, MG, URIC, PTH, [id number] #### [address] Eosinophils (Bld) [#/Vol] 0.2 10*3/uL Normal 0.0-0.45 [facility] Comment on above: Performed By: #### C BCNO, PROCRERAT, CUU, ADDONUAPLUS, RENAL, MG, URIC, PTH, [id number] #### [place] [id number] [place] Eosinophils/100 WBC (Bld) 1.7 % Normal . [facility] Comment on above: Performed By: #### C BCNO, PROCRERAT, CUU, ADDONUAPLUS, RENAL, MG, URIC, PTH, [id number] #### [address] Erythrocyte distribution width (RBC) [Ratio] 15.0 % Normal 11.9-15.3 [facility] Comment on above: Performed By: #### C BCNO, PROCRERAT, CUU, ADDONUAPLUS, RENAL, MG, URIC, PTH, [id number] #### [address] Hematocrit (Bld) [Volume fraction] 42.7 % Normal 34.0-46.4 [facility] Comment on above: Performed By: #### C BCNO, PROCRERAT, CUU, ADDONUAPLUS, RENAL, MG, URIC, PTH, [id number] #### [address] Hemoglobin (Bld) [Mass/Vol] 14.5 g/dL Normal 11.8-15.4 [facility] Comment on above: Performed By: #### C BCNO, PROCRERAT, CUU, ADDONUAPLUS, RENAL, MG, URIC, PTH, [id number] #### [address] Lymphocytes (Bld) [#/Vol] 2.6 10*3/uL Normal 1.00-4.8 [facility] Comment on above: Performed By: #### C BCNO, PROCRERAT, CUU, ADDONUAPLUS, RENAL, MG, URIC, PTH, [id number] #### [address] Lymphocytes/100 WBC (Bld) 18.0 % Normal . [facility] Comment on above: Performed By: #### C BCNO, PROCRERAT, CUU, ADDONUAPLUS, RENAL, MG, URIC, PTH, [id number] #### [address] MCH (RBC) [Entitic mass] 30.3 pg Normal 24.7-34.3 [facility] Comment on above: Performed By: #### C BCNO, PROCRERAT, CUU, ADDONUAPLUS, RENAL, MG, URIC, PTH, [id number] #### [facility] [address] MCV (RBC) [Entitic vol] 89.4 fL Normal 80-100 F [facility] Comment on above: Performed By: #### C BCNO, PROCRERAT, CUU, ADDONUAPLUS, RENAL, MG, URIC, PTH, [id number] #### [facility] [address] Mean Corpuscular HGB Conc 33.9 g/dL Normal 32.0-35.0 [facility] Comment on above: Performed By: #### C BCNO, PROCRERAT, CUU, ADDONUAPLUS, RENAL, MG, URIC, PTH, [id number] #### [facility] [address] Monocytes (Bld) [#/Vol] 0.7 10*3/uL Normal 0.0-0.8 [facility] Comment on above: Performed By: #### C BCNO, PROCRERAT, CUU, ADDONUAPLUS, RENAL, MG, URIC, PTH, [id number] #### [address] Monocytes/100 WBC (Bld) 5.2 % Normal . [facility] Comment on above: Performed By: #### C BCNO, PROCRERAT, CUU, ADDONUAPLUS, RENAL, MG, URIC, PTH, [id number] #### [facility] [address] Neutrophils (Bld) [#/Vol] 10.6 10*3/uL High 1.8-7.7 [facility] Comment on above: Performed By: #### C BCNO, PROCRERAT, CUU, ADDONUAPLUS, RENAL, MG, URIC, PTH, [id number] #### [facility] [address] Neutrophils/100 WBC (Bld) 74.3 % Normal . [facility] Comment on above: Performed By: #### C BCNO, PROCRERAT, CUU, ADDONUAPLUS, RENAL, MG, URIC, PTH, [id number] #### [facility] [address] NRBC% 0.1 /100{WBC} Normal 0-0.5 [facility] Comment on above: Performed By: #### C BCNO, PROCRERAT, CUU, ADDONUAPLUS, RENAL, MG, URIC, PTH, [id number] #### [facility] [address] Platelet mean volume (Bld) [Entitic vol] 8.3 fL Normal 6.3-10.7 [facility] Comment on above: Performed By: #### C BCNO, PROCRERAT, CUU, ADDONUAPLUS, RENAL, MG, URIC, PTH, [id number] #### [facility] [address] Platelets (Bld) [#/Vol] 262 10*3/uL Normal 150-450 [facility] Comment on above: Performed By: #### C BCNO, PROCRERAT, CUU, ADDONUAPLUS, RENAL, MG, URIC, PTH, [id number] #### [address] RBC (Bld) [#/Vol] 4.77 10*6/uL Normal 3.60-5.00 [facility] Comment on above: Performed By: #### C BCNO, PROCRERAT, CUU, ADDONUAPLUS, RENAL, MG, URIC, PTH, [id number] #### [address] WBC (Bld) [#/Vol] 14.3 10*3/uL High 3.8-11.6 [facility] Comment on above: Performed By: #### C BCNO, PROCRERAT, CUU, ADDONUAPLUS, RENAL, MG, URIC, PTH, [id number] #### [facility] [address] Eosinophils Auto (Bld) [#/Vo l]Ordered By: Yakelin Rebeka on 06-22-2023 Eosinophils (Bld) [#/Vol] 0.2 10*3/uL 0.0-0.45 [facility] Eosinophils/100 WBC Auto (Bl d)Ordered By: Yakelin Staley on 06-22-2023 Eosinophils/100 WBC (Bld) 1.7 % . [facility] Erythrocyte distribution wid th Auto (RBC) [Ratio]Ordered By: Yakelin Staley on 06-22-2023 Erythrocyte distribution width (RBC) [Ratio] 15.0 % 11.9-15.3 [facility] Hematocrit Auto (Bld) [Volum e fraction]Ordered By: Yakelin Staley on 06-22-2023 Hematocrit (Bld) [Volume fraction] 42.7 % 34.0-46.4 [facility] Hemoglobin [Mass/volume] in BloodOrdered By: Yakelin Staley on 06-22-2023 Hemoglobin (Bld) [Mass/Vol] 14.5 g/dL 11.8-15.4 [facility] Leukocytes [#/volume] correc janet for nucleated erythrocytes in Blood by Automated counOrdered By: Yakelin Staley on 06-22-2023 WBC corrected for nucl RBC Auto (Bld) [#/Vol] 14.3 10*3/uL 3.8-11.6 [facility] Lymphocytes Auto (Bld) [#/Vo l]Ordered By: Yakelin Staley on 06-22-2023 Lymphocytes (Bld) [#/Vol] 2.6 10*3/uL 1.00-4.8 [facility] Lymphocytes/100 WBC Auto (Bl d)Ordered By: Yakelin Staley on 06-22-2023 Lymphocytes/100 WBC (Bld) 18.0 % . [facility] MCH Auto (RBC) [Entitic mass ]Ordered By: Yakelin Staley on 06-22-2023 MCH (RBC) [Entitic mass] 30.3 pg 24.7-34.3 [facility] MCHC Auto (RBC) [Mass/Vol]Or dered By: Yakelin Staley on 06-22-2023 MCHC (RBC) [Mass/Vol] 33.9 g/dL 32.0-35.0 [facility] MCV Auto (RBC) [Entitic vol] Ordered By: Yakelin Staley on 06-22-2023 MCV (RBC) [Entitic vol] 89.4 fL 80-100 F [facility] Monocytes Auto (Bld) [#/Vol] Ordered By: Yakelin Staley on 06-22-2023 Monocytes (Bld) [#/Vol] 0.7 10*3/uL 0.0-0.8 [facility] Monocytes/100 WBC Auto (Bld) Ordered By: Yakelin Staley on 06-22-2023 Monocytes/100 WBC (Bld) 5.2 % . [facility] Neutrophils Auto (Bld) [#/Vo l]Ordered By: Yakelin Staley on 06-22-2023 Neutrophils (Bld) [#/Vol] 10.6 10*3/uL 1.8-7.7 [facility] Neutrophils/100 WBC Auto (Bl d)Ordered By: Yakelin Staley on 06-22-2023 Neutrophils/100 WBC (Bld) 74.3 % . [facility] Nucleated erythrocytes [Pres ence] in Blood by Automated countOrdered By: Yakelin Staley on 06-22-2023 Nucleated RBC Auto Ql (Bld) 0.1 /100{WBC} 0-0.5 [facility] Platelet mean volume Auto (B ld) [Entitic vol]Ordered By: Yakelin Staley on 06-22-2023 Platelet mean volume (Bld) [Entitic vol] 8.3 fL 6.3-10.7 [facility] Platelets Auto (Bld) [#/Vol] Ordered By: Yakelin Staley on 06-22-2023 Platelets (Bld) [#/Vol] 262 10*3/uL 150-450 [facility] RBC Auto (Bld) [#/Vol]Ordere d By: Yakelin Staley on 06-22-2023 RBC (Bld) [#/Vol] 4.77 10*6/uL 3.60-5.00 [facility] WBC Auto (Bld) [#/Vol]Ordere d By: Yakelin Staley on 06-22-2023 WBC (Bld) [#/Vol] 14.3 10*3/uL 3.8-11.6 [facility] Complete Blood Count Auto Di ffon 03-24-2023 Basophils (Bld) [#/Vol] 0.1 10*3/uL Normal 0.0-0.2 [facility] Comment on above: Result Comment: PERF ORMED BY: [place] [address] PATHOLOGIST BONDACTOR MACHINE OPERATOR SHANTE LOMBARDI M.D. Performed By: #### C BCNO, PROCRERAT, CUU, ADDONUAPLUS, RENAL, MG, URIC, PTH, [id number] #### [facility] [address] [place] [address] Basophils/100 WBC (Bld) 0.7 % Normal . [facility] Comment on above: Performed By: #### C BCNO, PROCRERAT, CUU, ADDONUAPLUS, RENAL, MG, URIC, PTH, [id number] #### [facility] [address] [place] [address] Eosinophils (Bld) [#/Vol] 0.4 10*3/uL Normal 0.0-0.45 [facility] Comment on above: Performed By: #### C BCNO, PROCRERAT, CUU, ADDONUAPLUS, RENAL, MG, URIC, PTH, [id number] #### [facility] [address] [place] [address] [place] Eosinophils/100 WBC (Bld) 2.2 % Normal . [facility] Comment on above: Performed By: #### C BCNO, PROCRERAT, CUU, ADDONUAPLUS, RENAL, MG, URIC, PTH, [id number] #### [address] Erythrocyte distribution width (RBC) [Ratio] 14.4 % Normal 11.9-15.3 [facility] Comment on above: Performed By: #### C BCNO, PROCRERAT, CUU, ADDONUAPLUS, RENAL, MG, URIC, PTH, [id number] #### [address] Hematocrit (Bld) [Volume fraction] 42.6 % Normal 34.0-46.4 [facility] Comment on above: Performed By: #### C BCNO, PROCRERAT, CUU, ADDONUAPLUS, RENAL, MG, URIC, PTH, [id number] #### [address] Hemoglobin (Bld) [Mass/Vol] 14.2 g/dL Normal 11.8-15.4 [facility] Comment on above: Performed By: #### C BCNO, PROCRERAT, CUU, ADDONUAPLUS, RENAL, MG, URIC, PTH, [id number] #### [address] Lymphocytes (Bld) [#/Vol] 2.9 10*3/uL Normal 1.00-4.8 [facility] Comment on above: Performed By: #### C BCNO, PROCRERAT, CUU, ADDONUAPLUS, RENAL, MG, URIC, PTH, [id number] #### [address] Lymphocytes/100 WBC (Bld) 17.3 % Normal . [facility] Comment on above: Performed By: #### C BCNO, PROCRERAT, CUU, ADDONUAPLUS, RENAL, MG, URIC, PTH, [id number] #### [address] MCH (RBC) [Entitic mass] 30.2 pg Normal 24.7-34.3 [facility] Comment on above: Performed By: #### C BCNO, PROCRERAT, CUU, ADDONUAPLUS, RENAL, MG, URIC, PTH, [id number] #### [address] MCV (RBC) [Entitic vol] 90.7 fL Normal 80-100 F [facility] Comment on above: Performed By: #### C BCNO, PROCRERAT, CUU, ADDONUAPLUS, RENAL, MG, URIC, PTH, [id number] #### [facility] [address] Mean Corpuscular HGB Conc 33.3 g/dL Normal 32.0-35.0 [facility] Comment on above: Performed By: #### C BCNO, PROCRERAT, CUU, ADDONUAPLUS, RENAL, MG, URIC, PTH, [id number] #### [facility] [address] [place] [address] [place] Monocytes (Bld) [#/Vol] 1.1 10*3/uL High 0.0-0.8 [facility] Comment on above: Performed By: #### C BCNO, PROCRERAT, CUU, ADDONUAPLUS, RENAL, MG, URIC, PTH, [id number] #### [facility] [address] [place] [address] [place] Monocytes/100 WBC (Bld) 6.4 % Normal . [facility] Comment on above: Performed By: #### C BCNO, PROCRERAT, CUU, ADDONUAPLUS, RENAL, MG, URIC, PTH, [id number] #### [place] [id number] [place] Neutrophils (Bld) [#/Vol] 12.2 10*3/uL High 1.8-7.7 [facility] Comment on above: Performed By: #### C BCNO, PROCRERAT, CUU, ADDONUAPLUS, RENAL, MG, URIC, PTH, [id number] #### [facility] [address] [place] [address] [place] Neutrophils/100 WBC (Bld) 73.4 % Normal . [facility] Comment on above: Performed By: #### C BCNO, PROCRERAT, CUU, ADDONUAPLUS, RENAL, MG, URIC, PTH, [id number] #### [facility] [address] [place] [address] NRBC% 0.1 /100{WBC} Normal 0-0.5 [facility] Comment on above: Performed By: #### C BCNO, PROCRERAT, CUU, ADDONUAPLUS, RENAL, MG, URIC, PTH, [id number] #### [address] Platelet mean volume (Bld) [Entitic vol] 8.5 fL Normal 6.3-10.7 [facility] Comment on above: Performed By: #### C BCNO, PROCRERAT, CUU, ADDONUAPLUS, RENAL, MG, URIC, PTH, [id number] #### [address] Platelets (Bld) [#/Vol] 302 10*3/uL Normal 150-450 [facility] Comment on above: Performed By: #### C BCNO, PROCRERAT, CUU, ADDONUAPLUS, RENAL, MG, URIC, PTH, [id number] #### [address] RBC (Bld) [#/Vol] 4.70 10*6/uL Normal 3.60-5.00 [facility] Comment on above: Performed By: #### C BCNO, PROCRERAT, CUU, ADDONUAPLUS, RENAL, MG, URIC, PTH, [id number] #### [address] WBC (Bld) [#/Vol] 16.7 10*3/uL High 3.8-11.6 [facility] Comment on above: Performed By: #### C BCNO, PROCRERAT, CUU, ADDONUAPLUS, RENAL, MG, URIC, PTH, [id number] #### [address] Albumin [Mass/volume] in Ser um or Plasma by Bromocresol green (BCG) dye binding methoOrdered By: Alta Schmid on 03-04-2023 Albumin BCG dye [Mass/Vol] 4.1 g/dL 3.5-5.7 [facility] Automated erythrocytes count in urine sediment (number/area)Ordered By: Alta Schmid on 03-04-2023 RBC Auto (Urine sed) [#/Area] 0-1 [HPF] 0-4 [facility] Automated leukocytes count i n urine sediment (number/area)Ordered By: Alta Schmid on 03-04-2023 WBC Auto (Urine sed) [#/Area] 5-9 [HPF] 0-4 [facility] Bilirubin Test strip Ql (U)O rdered By: Alta Schmid on 03-04-2023 Bilirubin Ql (U) Negative Negative [facility] Calcium [Mass/volume] in Ser um or PlasmaOrdered By: Alta Schmid on 03-04-2023 Calcium [Mass/Vol] 9.2 mg/dL 8.6-10.3 [facility] Carbon dioxide, total [Moles /volume] in Serum or PlasmaOrdered By: Alta Schmid on 03-04-2023 CO2 [Moles/Vol] 25.4 mmol/L 21.0-31.0 [facility] Chloride [Moles/volume] in S carlos or PlasmaOrdered By: Alta Schmid on 03-04-2023 Chloride [Moles/Vol] 104 mmol/L 98-107 [facility] Color Auto (U)Ordered By: Ab richard Schmid on 03-04-2023 Color (U) Yellow Yellow [facility] Creatinine [Mass/volume] in Serum or PlasmaOrdered By: Alta Schmid on 03-04-2023 Creatinine [Mass/Vol] 1.59 mg/dL 0.60-1.20 [facility] Creatinine [Mass/volume] in UrineOrdered By: Alta Schmid on 03-04-2023 Creatinine (U) [Mass/Vol] 100.0 mg/dL 11.0-20.0 [facility] Dipstick and Microscopicon 1 05-04-2022 Appearance (U) Clear Normal Clear [facility] Comment on above: Order Comment: Reaso n for Exam Chronic kidney disease, stage III (moderate);Diabetes mellit Performed By: Speedy### C BCNO, PROCRERAT, CUU, ADDONUAPLUS, RENAL, MG, URIC, PTH, [id number] #### [facility] [address] Bacteria,Urine None Seen Normal None Seen [facility] Comment on above: Order Comment: Reaso n for Exam Chronic kidney disease, stage III (moderate);Diabetes mellit Performed By: #### C BCNO, PROCRERAT, CUU, ADDONUAPLUS, RENAL, MG, URIC, PTH, [id number] #### [facility] [address] Bilirubin,Urine Negative Normal Negative [facility] Comment on above: Order Comment: Reaso n for Exam Chronic kidney disease, stage III (moderate);Diabetes mellit Performed By: #### C BCNO, PROCRERAT, CUU, ADDONUAPLUS, RENAL, MG, URIC, PTH, [id number] #### [facility] [address] Color (U) Yellow Normal Yellow [facility] Comment on above: Order Comment: Reaso n for Exam Chronic kidney disease, stage III (moderate);Diabetes mellit Performed By: #### C BCNO, PROCRERAT, CUU, ADDONUAPLUS, RENAL, MG, URIC, PTH, [id number] #### [facility] [address] Glucose Ql (U) Normal Normal Normal [facility] Comment on above: Order Comment: Reaso n for Exam Chronic kidney disease, stage III (moderate);Diabetes mellit Performed By: #### C BCNO, PROCRERAT, CUU, ADDONUAPLUS, RENAL, MG, URIC, PTH, [id number] #### [facility] [address] Hyaline Casts,Urine 0-8 Normal 0-8 [facility] Comment on above: Order Comment: Reaso n for Exam Chronic kidney disease, stage III (moderate);Diabetes mellit Result Comment: PERF ORMED BY: [facility] [address] [place] [address] PATHOLOGIST [employer]DACTOR MACHINE OPERATOR SHANTE LOMBARDI M.D. Performed By: #### C BCNO, PROCRERAT, CUU, ADDONUAPLUS, RENAL, MG, URIC, PTH, [id number] #### [facility] [address] Ketones Ql (U) Negative Normal Negative [facility] Comment on above: Order Comment: Reaso n for Exam Chronic kidney disease, stage III (moderate);Diabetes mellit Performed By: #### C BCNO, PROCRERAT, CUU, ADDONUAPLUS, RENAL, MG, URIC, PTH, [id number] #### [address] Leukocyte esterase Test strip Ql (U) 1+ High Negative [facility] Comment on above: Order Comment: Reaso n for Exam Chronic kidney disease, stage III (moderate);Diabetes mellit Performed By: #### C BCNO, PROCRERAT, CUU, ADDONUAPLUS, RENAL, MG, URIC, PTH, [id number] #### [facility] [address] [place] [address] Nitrite,Urine Negative Normal Negative [facility] Comment on above: Order Comment: Reaso n for Exam Chronic kidney disease, stage III (moderate);Diabetes mellit Performed By: #### C BCNO, PROCRERAT, CUU, ADDONUAPLUS, RENAL, MG, URIC, PTH, [id number] #### [facility] [address] [place] [address] Occult Blood,Urine Negative Normal Negative [facility] Comment on above: Order Comment: Reaso n for Exam Chronic kidney disease, stage III (moderate);Diabetes mellit Performed By: #### C BCNO, PROCRERAT, CUU, ADDONUAPLUS, RENAL, MG, URIC, PTH, [id number] #### [address] pH (U) 5.5 [pH] Normal 5.0-9.0 [facility] Comment on above: Order Comment: Reaso n for Exam Chronic kidney disease, stage III (moderate);Diabetes mellit Performed By: #### C BCNO, PROCRERAT, CUU, ADDONUAPLUS, RENAL, MG, URIC, PTH, [id number] #### [facility] [address] Protein,Urine Negative Normal Negative [facility] Comment on above: Order Comment: Reaso n for Exam Chronic kidney disease, stage III (moderate);Diabetes mellit Performed By: #### C BCNO, PROCRERAT, CUU, ADDONUAPLUS, RENAL, MG, URIC, PTH, [id number] #### [facility] [address] RBC LM.HPF (Urine sed) [#/Area] 0 /[HPF] Normal 0-4 [facility] Comment on above: Order Comment: Reaso n for Exam Chronic kidney disease, stage III (moderate);Diabetes mellit Performed By: #### C BCNO, PROCRERAT, CUU, ADDONUAPLUS, RENAL, MG, URIC, PTH, [id number] #### [facility] [address] Specificy [place],Urine 1.014 Normal 1.001-1.030 [facility] Comment on above: Order Comment: Reaso n for Exam Chronic kidney disease, stage III (moderate);Diabetes mellit Performed By: #### C BCNO, PROCRERAT, CUU, ADDONUAPLUS, RENAL, MG, URIC, PTH, [id number] #### [facility] [address] Squamous Epithelial Cell,Urine 5-9 High 0-2 [facility] Comment on above: Order Comment: Reaso n for Exam Chronic kidney disease, stage III (moderate);Diabetes mellit Performed By: #### C BCNO, PROCRERAT, CUU, ADDONUAPLUS, RENAL, MG, URIC, PTH, [id number] #### [facility] [address] Urobilinogen,Urine Normal Normal Normal [facility] Comment on above: Order Comment: Reaso n for Exam Chronic kidney disease, stage III (moderate);Diabetes mellit Performed By: #### C BCNO, PROCRERAT, CUU, ADDONUAPLUS, RENAL, MG, URIC, PTH, [id number] #### [facility] [address] WBC,Urine 5-9 High 0-4 [facility] Comment on above: Order Comment: Reaso n for Exam Chronic kidney disease, stage III (moderate);Diabetes mellit Performed By: #### C BCNO, PROCRERAT, CUU, ADDONUAPLUS, RENAL, MG, URIC, PTH, [id number] #### [facility] [address] Erythrocyte distribution wid th Auto (RBC) [Ratio]Ordered By: Alta Schmid on 03-04-2023 Erythrocyte distribution width (RBC) [Ratio] 14.8 % 11.9-15.3 [facility] Glucose [Mass/volume] in Ser um or PlasmaOrdered By: Alta Schmid on 03-04-2023 Glucose [Mass/Vol] 232 mg/dL 70-100 [facility] Comment on above: ADA recommended refe rence rangeRandom Glucose Reference Range is dependent on time and content of last meal. Glucose of more than 200 mg/dL in a nonstressed, ambulatory subject supports the diagnosis of Diabetes Mellitus. Hematocrit Auto (Bld) [Volum e fraction]Ordered By: Alta Schmid on 03-04-2023 Hematocrit (Bld) [Volume fraction] 42.6 % 34.0-46.4 [facility] Hemoglobin [Mass/volume] in BloodOrdered By: Alta Schmid on 03-04-2023 Hemoglobin (Bld) [Mass/Vol] 14.5 g/dL 11.8-15.4 [facility] Hemogram CBC Without Diffon 03-04-2023 Erythrocyte distribution width (RBC) [Ratio] 14.8 % Normal 11.9-15.3 [facility] Comment on above: Order Comment: Reaso n for Exam Chronic kidney disease, stage III (moderate);Diabetes mellit Performed By: #### C BCNO, PROCRERAT, CUU, ADDONUAPLUS, RENAL, MG, URIC, PTH, [id number] #### [address] Hematocrit (Bld) [Volume fraction] 42.6 % Normal 34.0-46.4 [facility] Comment on above: Order Comment: Reaso n for Exam Chronic kidney disease, stage III (moderate);Diabetes mellit Performed By: #### C BCNO, PROCRERAT, CUU, ADDONUAPLUS, RENAL, MG, URIC, PTH, [id number] #### [address] Hemoglobin (Bld) [Mass/Vol] 14.5 g/dL Normal 11.8-15.4 [facility] Comment on above: Order Comment: Reaso n for Exam Chronic kidney disease, stage III (moderate);Diabetes mellit Performed By: #### C BCNO, PROCRERAT, CUU, ADDONUAPLUS, RENAL, MG, URIC, PTH, [id number] #### [address] MCH (RBC) [Entitic mass] 31.1 pg Normal 24.7-34.3 [facility] Comment on above: Order Comment: Reaso n for Exam Chronic kidney disease, stage III (moderate);Diabetes mellit Performed By: #### C BCNO, PROCRERAT, CUU, ADDONUAPLUS, RENAL, MG, URIC, PTH, [id number] #### [address] MCV (RBC) [Entitic vol] 91.6 fL Normal 80-100 F [facility] Comment on above: Order Comment: Reaso n for Exam Chronic kidney disease, stage III (moderate);Diabetes mellit Performed By: #### C BCNO, PROCRERAT, CUU, ADDONUAPLUS, RENAL, MG, URIC, PTH, [id number] #### [address] Mean Corpuscular HGB Conc 34.0 g/dL Normal 32.0-35.0 [facility] Comment on above: Order Comment: Reaso n for Exam Chronic kidney disease, stage III (moderate);Diabetes mellit Performed By: #### C BCNO, PROCRERAT, CUU, ADDONUAPLUS, RENAL, MG, URIC, PTH, [id number] #### [facility] [address] [place] [address] Platelet mean volume (Bld) [Entitic vol] 8.5 fL Normal 6.3-10.7 [facility] Comment on above: Order Comment: Reaso n for Exam Chronic kidney disease, stage III (moderate);Diabetes mellit Result Comment: PERF ORMED BY: [place] [address] PATHOLOGIST B[employer]DACTOR MACHINE OPERATOR SHANTE LOMBARDI M.D. Performed By: #### C BCNO, PROCRERAT, CUU, ADDONUAPLUS, RENAL, MG, URIC, PTH, [id number] #### [address] Platelets (Bld) [#/Vol] 327 10*3/uL Normal 150-450 [facility] Comment on above: Order Comment: Reaso n for Exam Chronic kidney disease, stage III (moderate);Diabetes mellit Performed By: #### C BCNO, PROCRERAT, CUU, ADDONUAPLUS, RENAL, MG, URIC, PTH, [id number] #### [facility] [address] [place] [address] RBC (Bld) [#/Vol] 4.65 10*6/uL Normal 3.60-5.00 [facility] Comment on above: Order Comment: Reaso n for Exam Chronic kidney disease, stage III (moderate);Diabetes mellit Performed By: #### C BCNO, PROCRERAT, CUU, ADDONUAPLUS, RENAL, MG, URIC, PTH, [id number] #### [address] WBC (Bld) [#/Vol] 16.2 10*3/uL High 3.8-11.6 [facility] Comment on above: Order Comment: Reaso n for Exam Chronic kidney disease, stage III (moderate);Diabetes mellit Performed By: #### C BCNO, PROCRERAT, CUU, ADDONUAPLUS, RENAL, MG, URIC, PTH, [id number] #### [facility] [address] Ketones Auto test strip (U) [Mass/Vol]Ordered By: Alta Schmid on 03-04-2023 Ketones (U) [Mass/Vol] Negative Negative [facility] - UrinalysisOrder ed By: Alta Schmid on 03-04-2023 Hyaline casts LM Ql (Urine sed) 0-8 [LPF] 0-8 [facility] Leukocytes [#/volume] correc janet for nucleated erythrocytes in Blood by Automated counOrdered By: Alta Schmid on 03-04-2023 WBC corrected for nucl RBC Auto (Bld) [#/Vol] 16.2 10*3/uL 3.8-11.6 [facility] MCH Auto (RBC) [Entitic mass ]Ordered By: Alta Schmid on 03-04-2023 MCH (RBC) [Entitic mass] 31.1 pg 24.7-34.3 [facility] MCHC Auto (RBC) [Mass/Vol]Or dered By: Alta Schmid on 03-04-2023 MCHC (RBC) [Mass/Vol] 34.0 g/dL 32.0-35.0 [facility] MCV Auto (RBC) [Entitic vol] Ordered By: Alta Schmid on 03-04-2023 MCV (RBC) [Entitic vol] 91.6 fL 80-100 F [facility] Magnesiumon 03-04-2023 Magnesium [Mass/Vol] 1.4 mg/dL Low 1.9-2.7 [facility] Comment on above: Order Comment: Reaso n for Exam Chronic kidney disease, stage III (moderate);Diabetes mellit Performed By: #### C BCNO, PROCRERAT, CUU, ADDONUAPLUS, RENAL, MG, URIC, PTH, [id number] #### [facility] [address] Magnesium [Mass/volume] in S carlos or PlasmaOrdered By: Alta Schmid on 03-04-2023 Magnesium [Mass/Vol] 1.4 mg/dL 1.9-2.7 [facility] Nitrite Test strip Ql (U)Ord ered By: Alta Schmid on 03-04-2023 Nitrite Ql (U) Negative Negative [facility] No Panel InformationOrdered By: Alta Schmid on 03-04-2023 Estimated GFR (CKD-EPI) 35.395 mL/Min [facility] Creatinine Clearance (Chem N/A [facility] Parathyrin.intact [Mass/volu me] in Serum or PlasmaOrdered By: Alta Schmid on 03-04-2023 Parathyrin.intact [Mass/Vol] 87.0 pg/mL [facility] Parathyroid Hormone Intacton 03-04-2023 Parathyroid Hormone Intact 87.0 pg/mL Normal [facility] Comment on above: Order Comment: Reaso n for Exam Chronic kidney disease, stage III (moderate);Diabetes mellit Result Comment: PERF ORMED BY: [place] [address] PATHOLOGIST BONDACTOR MACHINE OPERATOR SHANTE LOMBARDI M.D. Performed By: #### C BCNO, PROCRERAT, CUU, ADDONUAPLUS, RENAL, MG, URIC, PTH, [id number] #### [place] [id number] [facility] Phosphate [Mass/volume] in S carlos or PlasmaOrdered By: Alta Schmid on 03-04-2023 Phosphate [Mass/Vol] 4.0 mg/dL 3.7-7.2 [facility] Platelet mean volume Auto (B ld) [Entitic vol]Ordered By: Alta Schmid on 03-04-2023 Platelet mean volume (Bld) [Entitic vol] 8.5 fL 6.3-10.7 [facility] Platelets Auto (Bld) [#/Vol] Ordered By: Alta Schmid on 03-04-2023 Platelets (Bld) [#/Vol] 327 10*3/uL 150-450 [facility] Potassium [Moles/volume] in Serum or PlasmaOrdered By: Alta Schmid on 03-04-2023 Potassium [Moles/Vol] 4.9 mmol/L 3.5-5.1 [facility] Protein Auto test strip (U) [Mass/Vol]Ordered By: Alta Schmid on 03-04-2023 Protein (U) [Mass/Vol] Negative Negative [facility] Protein Creat Ratio Ur Rando mon 03-04-2023 Creatinine, Urine (Random) 100.0 mg/dL High 11.0-20.0 [facility] Comment on above: Order Comment: Reaso n for Exam Chronic kidney disease, stage III (moderate);Diabetes mellit Performed By: #### P ROCRERAT #### [facility] [address] [place] [address] [place] Protein (U) [Mass/Vol] 14 mg/dL High 0-9 [facility] Comment on above: Order Comment: Reaso n for Exam Chronic kidney disease, stage III (moderate);Diabetes mellit Performed By: #### P ROCRERAT #### [facility] [address] Urine Protein/Creatinine Ratio 140 mg/g{Cre} Normal 0-200 [facility] Comment on above: Order Comment: Reaso n for Exam Chronic kidney disease, stage III (moderate);Diabetes mellit Result Comment: PERF ORMED BY: [place] [address] PATHOLOGIST BONDACTOR MACHINE OPERATOR SHANTE LOMBARDI M.D. Performed By: #### P ROCRERAT #### [facility] [address] [place] [address] [place] Protein [Mass/volume] in Uri neOrdered By: Alta Schmid on 03-04-2023 Protein (U) [Mass/Vol] 14 mg/dL 0-9 [facility] RBC Auto (Bld) [#/Vol]Ordere d By: Alta Schmid on 03-04-2023 RBC (Bld) [#/Vol] 4.65 10*6/uL 3.60-5.00 [facility] Renal Function Panelon 03-04 Albumin [Mass/Vol] 4.1 g/dL Normal 3.5-5.7 [facility] Comment on above: Order Comment: Reaso n for Exam Chronic kidney disease, stage III (moderate);Diabetes mellit Performed By: #### C BCNO, PROCRERAT, CUU, ADDONUAPLUS, RENAL, MG, URIC, PTH, [id number] #### [facility] [address] Anion gap [Moles/Vol] 13.5 mmol/L Normal 6.0-15.0 [facility] Comment on above: Order Comment: Reaso n for Exam Chronic kidney disease, stage III (moderate);Diabetes mellit Performed By: #### C BCNO, PROCRERAT, CUU, ADDONUAPLUS, RENAL, MG, URIC, PTH, [id number] #### [facility] [address] [place] [id number] [facility] Calcium [Mass/Vol] 9.2 mg/dL Normal 8.6-10.3 [facility] Comment on above: Order Comment: Reaso n for Exam Chronic kidney disease, stage III (moderate);Diabetes mellit Performed By: #### C BCNO, PROCRERAT, CUU, ADDONUAPLUS, RENAL, MG, URIC, PTH, [id number] #### [facility] [address] [place] [id number] [facility] Chloride [Moles/Vol] 104 mmol/L Normal 98-107 [facility] Comment on above: Order Comment: Reaso n for Exam Chronic kidney disease, stage III (moderate);Diabetes mellit Performed By: #### C BCNO, PROCRERAT, CUU, ADDONUAPLUS, RENAL, MG, URIC, PTH, [id number] #### [facility] [address] [place] [id number] [facility] CO2 [Moles/Vol] 25.4 mmol/L Normal 21.0-31.0 [facility] Comment on above: Order Comment: Reaso n for Exam Chronic kidney disease, stage III (moderate);Diabetes mellit Performed By: #### C BCNO, PROCRERAT, CUU, ADDONUAPLUS, RENAL, MG, URIC, PTH, [id number] #### [facility] [address] [place] [id number] [facility] Creatinine [Mass/Vol] 1.59 mg/dL High 0.60-1.20 [facility] Comment on above: Order Comment: Reaso n for Exam Chronic kidney disease, stage III (moderate);Diabetes mellit Performed By: #### C BCNO, PROCRERAT, CUU, ADDONUAPLUS, RENAL, MG, URIC, PTH, [id number] #### [facility] [address] [place] [address] [place] GFR/1.73 sq M.predicted MDRD (S/P/Bld) [Vol rate/Area] 35.395 mL/min/{1.73_m2} Normal [facility] Comment on above: Order Comment: Reaso n for Exam Chronic kidney disease, stage III (moderate);Diabetes mellit Performed By: #### C BCNO, PROCRERAT, CUU, ADDONUAPLUS, RENAL, MG, URIC, PTH, [id number] #### [facility] [address] Glucose [Mass/Vol] 232 mg/dL High 70-100 [facility] Comment on above: Order Comment: Reaso n for Exam Chronic kidney disease, stage III (moderate);Diabetes mellit Result Comment: [place] Glucose Reference Range is dependent on time and content of last meal. Glucose of more than 200 mg/dL in a nonstressed, ambulatory subject supports the diagnosis of Diabetes Mellitus. ADA recommended reference range Performed By: #### C BCNO, PROCRERAT, CUU, ADDONUAPLUS, RENAL, MG, URIC, PTH, [id number] #### [facility] [address] [place] [id number] [facility] Phosphate [Mass/Vol] 4.0 mg/dL Normal 3.7-7.2 [facility] Comment on above: Order Comment: Reaso n for Exam Chronic kidney disease, stage III (moderate);Diabetes mellit Performed By: #### C BCNO, PROCRERAT, CUU, ADDONUAPLUS, RENAL, MG, URIC, PTH, [id number] #### [facility] [address] Potassium [Moles/Vol] 4.9 mmol/L Normal 3.5-5.1 [facility] Comment on above: Order Comment: Reaso n for Exam Chronic kidney disease, stage III (moderate);Diabetes mellit Performed By: #### C BCNO, PROCRERAT, CUU, ADDONUAPLUS, RENAL, MG, URIC, PTH, [id number] #### [facility] [address] [place] [address] Sodium [Moles/Vol] 138 mmol/L Normal 136-145 [facility] Comment on above: Order Comment: Reaso n for Exam Chronic kidney disease, stage III (moderate);Diabetes mellit Performed By: #### C BCNO, PROCRERAT, CUU, ADDONUAPLUS, RENAL, MG, URIC, PTH, [id number] #### [facility] [address] [place] [address] Urea nitrogen [Mass/Vol] 42 mg/dL High 7-25 [facility] Comment on above: Order Comment: Reaso n for Exam Chronic kidney disease, stage III (moderate);Diabetes mellit Performed By: #### C BCNO, PROCRERAT, CUU, ADDONUAPLUS, RENAL, MG, URIC, PTH, [id number] #### [facility] [address] [place] [address] Serum or plasma anion gap de terminationOrdered By: Alta Schmid on 03-04-2023 Anion gap [Moles/Vol] 13.5 mmol/L 6.0-15.0 [facility] Sodium [Moles/volume] in Ser um or PlasmaOrdered By: Alta Schmid on 03-04-2023 Sodium [Moles/Vol] 138 mmol/L 136-145 [facility] Specific gravity Auto test s trip (U) [Rel density]Ordered By: Alta Schmid on 03-04-2023 Specific gravity (U) [Rel density] 1.014 1.001-1.030 [facility] Squamous epithelial cells de tection in urine sediment by light microscopyOrdered By: Alta Schmid on 03-04-2023 Epithelial cells.squamous LM Ql (Urine sed) 5-9 [HPF] 0-2 [facility] Urate [Mass/volume] in Serum or PlasmaOrdered By: Alta Fletcherr on 03-04-2023 Urate [Mass/Vol] 10.7 mg/dL 2.3-6.6 [facility] Urea nitrogen [Mass/volume] in Serum or PlasmaOrdered By: Alta Comerdir on 03-04-2023 Urea nitrogen [Mass/Vol] 42 mg/dL 7-25 [facility] Uric Acidon 03-04-2023 Urate [Mass/Vol] 10.7 mg/dL High 2.3-6.6 [facility] Comment on above: Order Comment: Reaso n for Exam Chronic kidney disease, stage III (moderate);Diabetes mellit Performed By: #### C BCNO, PROCRERAT, CUU, ADDONUAPLUS, RENAL, MG, URIC, PTH, [id number] #### [facility] [address] Urine Cultureon 03-04-2023 Bacteria identified Cx Nom (U) 75,000 colonies/ml mixed bacterial skin contaminants 2 Days PERFORMED BY: [place] [address] PATHOLOGIST BONDACTOR MACHINE OPERATOR SHANTE LOMBARDI M.D. Normal [facility] Comment on above: Performed By: #### C BCNO, PROCRERAT, CUU, ADDONUAPLUS, RENAL, MG, URIC, PTH, [id number] #### [facility] [address] Urine bacteria detection by automated methodOrdered By: Alta Schmid on 03-04-2023 Bacteria Auto Ql (U) None seen None Seen [facility] Urine clarity by refractomet ry automatedOrdered By: Alta Schmid on 03-04-2023 Clarity Refractometry automated (U) Clear Clear [facility] Urine culture routineOrdered By: Alta Schmid on 03-04-2023 Bacteria identified Cx Nom (U) 2 Days [facility] Urine glucose measurement by automated test strip (mass/volume)Ordered By: Alta Schmid on 03-04-2023 Glucose Auto test strip (U) [Mass/Vol] Normal mg/dL Normal [facility] Urine hemoglobin detection b y automated test stripOrdered By: Alta Schmid on 03-04-2023 Hemoglobin Auto test strip Ql (U) Negative Negative [facility] Urine leukocyte esterase det ection by automated test stripOrdered By: Alta Schmid on 03-04-2023 Leukocyte esterase Auto test strip Ql (U) 1+ Negative [facility] Urine protein/creatinine rat ioOrdered By: Alta Schmid on 03-04-2023 Protein/Creatinine (U) [Ratio] 140 mg/g{Cre} 0-200 [facility] Urobilinogen Auto test strip (U) [Mass/Vol]Ordered By: Alta Schmid on 03-04-2023 Urobilinogen (U) [Mass/Vol] Normal mg/dL Normal [facility] Vitamin D 25 Hydroxy Totalon 03-04-2023 Vitamin D 25 Hydroxy Total 41.9 ng/mL Normal 30-100 [facility] Comment on above: Order Comment: Reaso n for Exam Chronic kidney disease, stage III (moderate);Diabetes mellit Result Comment: [place] MIN D STATUS 25(OH)VITAMIN D RANGE (ng/mL) Deficient <20 Insufficient 20 to <30 Sufficient 30 to 100 Reference: Raven MF,Isai NC, Randa WALSH, et al. Evaluation,treatment, and prevention of vitamin D deficiency; an Endocrine Society clinical practice guideline. JCEM. 2010; 96(7):1911-30. PERFORMED BY: [place] [address] PATHOLOGIST BONDACTOR MACHINE OPERATOR SHANTE LOMBARDI M.D. Performed By: #### C BCNO, PROCRERAT, CUU, ADDONUAPLUS, RENAL, MG, URIC, PTH, [id number] #### [address] Vitamin D+Metabolites [Mass/ volume] in Serum or PlasmaOrdered By: Alta Schmid on 03-04-2023 Vitamin D+Metabolites [Mass/Vol] 41.9 ng/mL 30-100 [facility] Comment on above: VITAMIN D STATUS 25( [place])VITAMIN D RANGE (ng/mL) Deficient <20 Insufficient 20 to <30Sufficient 30 to 100Reference: Raven MF,Isai CLARK, Randa WALSH, et al. Evaluation,treatment, and prevention of vitamin D deficiency; an Endocrine Society clinical practice guideline. JCEM. 2010; 96(7):1911-30. pH Auto test strip (U)Ordere d By: Alta Schmid on 03-04-2023 pH (U) 5.5 [pH] 5.0-9.0 [facility] Office Visit (Cardiology)on 12-08-2022 Follow-up visit Diagnoses/Problems Assessed Hypertension (401.9) (I10) Current smoker (305.1) (F17.200) 1/2 pack daily. Diabetes (250.00) (E11.9) Class 1 obesity with body mass index (BMI) of 32.0 to 32.9 in adult (278.00,V85.32) (E66.9,Z68.32) Orders Class 1 obesity with body mass index (BMI) of 32.0 to 32.9 in adult Healthy Weight Tips; Status:Complete; Done: [id number] Some eating tips that can help you lose weight.; Status:Complete; Done: 25Tev1081 SocHx: Current smoker Tobacco Use Screening; Status:Complete; Done: [id number] You need to stop smoking. Though it is not easy, more than half of all adult smokers have quit. We encourage you to write down all the reasons you should quit smoking and set a quit date for yourself. Ask us how we can help. You may also call [phone]-FHCM-NOW for free resources and assistance.; Status:Complete; Done: 16Yts5015 Patient Instructions Please bring all medicines, vitamins, [...] negative for complaint. Vitals Vital Signs Recorded: [id number] 08:41AM Heart Rate66, R Radial Xhovmtxm906, RUE, Sitting Wegfbyvdu51, RUE, Sitting Height5 ft 3 in Rbjdjz139 lb BMI Xhlqjteizy28.95 kg/m2 BSA Calculated1.88 Tobacco Usea) Yes Patient [...] JVP w (more content not included)... Normal [facility] Tobacco Screening.on 023 Fall risk assessment a) No falls within the last year [facility] 250 DO Work Phone: Tobacco use status CP a) Yes M [facility] 250 DO Work Phone: Tobacco Screening. Yes [facility] 250 DO Work Phone: Dipstick and Microscopicon 0 09-18-2022 Appearance (U) Cloudy Critically abnormal Clear [facility] Comment on above: Order Comment: Reaso n for Exam Chronic kidney disease, stage III (moderate);Diabetes mellit Name Collection Type:: Clean-Voided Midstream Performed By: #### C BCNO, PROCRERAT, CUU, ADDONUAPLUS, RENAL, MG, URIC, PTH, [id number] #### [facility] [address] Bacteria,Urine 4+ High None Seen [facility] Comment on above: Order Comment: Reaso n for Exam Chronic kidney disease, stage III (moderate);Diabetes mellit Name Collection Type:: Clean-Voided Midstream Performed By: #### C BCNO, PROCRERAT, CUU, ADDONUAPLUS, RENAL, MG, URIC, PTH, [id number] #### [facility] [address] Bilirubin,Urine Negative Normal Negative [facility] Comment on above: Order Comment: Reaso n for Exam Chronic kidney disease, stage III (moderate);Diabetes mellit Name Collection Type:: Clean-Voided Midstream Performed By: #### C BCNO, PROCRERAT, CUU, ADDONUAPLUS, RENAL, MG, URIC, PTH, [id number] #### [facility] [address] Color (U) Yellow Normal Yellow [facility] Comment on above: Order Comment: Reaso n for Exam Chronic kidney disease, stage III (moderate);Diabetes mellit Name Collection Type:: Clean-Voided Midstream Performed By: #### C BCNO, PROCRERAT, CUU, ADDONUAPLUS, RENAL, MG, URIC, PTH, [id number] #### [facility] [address] Glucose Ql (U) Normal Normal Normal [facility] Comment on above: Order Comment: Reaso n for Exam Chronic kidney disease, stage III (moderate);Diabetes mellit Name Collection Type:: Clean-Voided Midstream Performed By: #### C BCNO, PROCRERAT, CUU, ADDONUAPLUS, RENAL, MG, URIC, PTH, [id number] #### [facility] [address] [place] [id number] [place] Hyaline Casts,Urine 9-19 High 0-8 [facility] Comment on above: Order Comment: Reaso n for Exam Chronic kidney disease, stage III (moderate);Diabetes mellit Name Collection Type:: Clean-Voided Midstream Result Comment: PERF ORMED BY: [place] [address] PATHOLOGIST BONDACTOR MACHINE OPERATOR SHANTE LOMBARDI M.D. Performed By: #### C BCNO, PROCRERAT, CUU, ADDONUAPLUS, RENAL, MG, URIC, PTH, [id number] #### [facility] [address] [place] [address] Ketones Ql (U) Negative Normal Negative [facility] Comment on above: Order Comment: Reaso n for Exam Chronic kidney disease, stage III (moderate);Diabetes mellit Name Collection Type:: Clean-Voided Midstream Performed By: #### C BCNO, PROCRERAT, CUU, ADDONUAPLUS, RENAL, MG, URIC, PTH, [id number] #### [facility] [address] [place] [address] Leukocyte esterase Test strip Ql (U) 3+ High Negative [facility] Comment on above: Order Comment: Reaso n for Exam Chronic kidney disease, stage III (moderate);Diabetes mellit Name Collection Type:: Clean-Voided Midstream Performed By: #### C BCNO, PROCRERAT, CUU, ADDONUAPLUS, RENAL, MG, URIC, PTH, [id number] #### [facility] [address] [place] [address] [place] Nitrite,Urine Positive High Negative [facility] Comment on above: Order Comment: Reaso n for Exam Chronic kidney disease, stage III (moderate);Diabetes mellit Name Collection Type:: Clean-Voided Midstream Performed By: #### C BCNO, PROCRERAT, CUU, ADDONUAPLUS, RENAL, MG, URIC, PTH, [id number] #### [facility] [address] [place] [address] Occult Blood,Urine Negative Normal Negative [facility] Comment on above: Order Comment: Reaso n for Exam Chronic kidney disease, stage III (moderate);Diabetes mellit Name Collection Type:: Clean-Voided Midstream Performed By: #### C BCNO, PROCRERAT, CUU, ADDONUAPLUS, RENAL, MG, URIC, PTH, [id number] #### [address] pH (U) 6.0 [pH] Normal 5.0-9.0 [facility] Comment on above: Order Comment: Reaso n for Exam Chronic kidney disease, stage III (moderate);Diabetes mellit Name Collection Type:: Clean-Voided Midstream Performed By: #### C BCNO, PROCRERAT, CUU, ADDONUAPLUS, RENAL, MG, URIC, PTH, [id number] #### [facility] [address] [place] [address] Protein,Urine Negative Normal Negative [facility] Comment on above: Order Comment: Reaso n for Exam Chronic kidney disease, stage III (moderate);Diabetes mellit Name Collection Type:: Clean-Voided Midstream Performed By: #### C BCNO, PROCRERAT, CUU, ADDONUAPLUS, RENAL, MG, URIC, PTH, [id number] #### [address] RBC,Urine None Seen Normal 0-4 [facility] Comment on above: Order Comment: Reaso n for Exam Chronic kidney disease, stage III (moderate);Diabetes mellit Name Collection Type:: Clean-Voided Midstream Performed By: #### C BCNO, PROCRERAT, CUU, ADDONUAPLUS, RENAL, MG, URIC, PTH, [id number] #### [address] Specificy [place],Urine 1.013 Normal 1.001-1.030 [facility] Comment on above: Order Comment: Reaso n for Exam Chronic kidney disease, stage III (moderate);Diabetes mellit Name Collection Type:: Clean-Voided Midstream Performed By: #### C BCNO, PROCRERAT, CUU, ADDONUAPLUS, RENAL, MG, URIC, PTH, [id number] #### [place] [id number] [place] Squamous Epithelial Cell,Urine 1-2 Normal 0-2 [facility] Comment on above: Order Comment: Reaso n for Exam Chronic kidney disease, stage III (moderate);Diabetes mellit Name Collection Type:: Clean-Voided Midstream Performed By: #### C BCNO, PROCRERAT, CUU, ADDONUAPLUS, RENAL, MG, URIC, PTH, [id number] #### [facility] [address] Urobilinogen,Urine Normal Normal Normal [facility] Comment on above: Order Comment: Reaso n for Exam Chronic kidney disease, stage III (moderate);Diabetes mellit Name Collection Type:: Clean-Voided Midstream Performed By: #### C BCNO, PROCRERAT, CUU, ADDONUAPLUS, RENAL, MG, URIC, PTH, [id number] #### [facility] [address] [place] [address] WBC,Urine 50-100 High 0-4 [facility] Comment on above: Order Comment: Reaso n for Exam Chronic kidney disease, stage III (moderate);Diabetes mellit Name Collection Type:: Clean-Voided Midstream Performed By: #### C BCNO, PROCRERAT, CUU, ADDONUAPLUS, RENAL, MG, URIC, PTH, [id number] #### [facility] [address] [place] [address] Hemogram CBC Without Diffon 09-18-2022 Erythrocyte distribution width (RBC) [Ratio] 15.4 % High 11.9-15.3 [facility] Comment on above: Order Comment: Reaso n for Exam Chronic kidney disease, stage III (moderate);Diabetes mellit Performed By: #### C BCNO, PROCRERAT, CUU, ADDONUAPLUS, RENAL, MG, URIC, PTH, [id number] #### [facility] [address] [place] [address] Hematocrit (Bld) [Volume fraction] 41.9 % Normal 34.0-46.4 [facility] Comment on above: Order Comment: Reaso n for Exam Chronic kidney disease, stage III (moderate);Diabetes mellit Performed By: #### C BCNO, PROCRERAT, CUU, ADDONUAPLUS, RENAL, MG, URIC, PTH, [id number] #### [address] Hemoglobin (Bld) [Mass/Vol] 14.2 g/dL Normal 11.8-15.4 [facility] Comment on above: Order Comment: Reaso n for Exam Chronic kidney disease, stage III (moderate);Diabetes mellit Performed By: #### C BCNO, PROCRERAT, CUU, ADDONUAPLUS, RENAL, MG, URIC, PTH, [id number] #### [address] MCH (RBC) [Entitic mass] 30.8 pg Normal 24.7-34.3 [facility] Comment on above: Order Comment: Reaso n for Exam Chronic kidney disease, stage III (moderate);Diabetes mellit Performed By: #### C BCNO, PROCRERAT, CUU, ADDONUAPLUS, RENAL, MG, URIC, PTH, [id number] #### [address] MCV (RBC) [Entitic vol] 90.9 fL Normal 80-100 F [facility] Comment on above: Order Comment: Reaso n for Exam Chronic kidney disease, stage III (moderate);Diabetes mellit Performed By: #### C BCNO, PROCRERAT, CUU, ADDONUAPLUS, RENAL, MG, URIC, PTH, [id number] #### [address] Mean Corpuscular HGB Conc 33.9 g/dL Normal 32.0-35.0 [facility] Comment on above: Order Comment: Reaso n for Exam Chronic kidney disease, stage III (moderate);Diabetes mellit Performed By: #### C BCNO, PROCRERAT, CUU, ADDONUAPLUS, RENAL, MG, URIC, PTH, [id number] #### [address] Platelet mean volume (Bld) [Entitic vol] 8.6 fL Normal 6.3-10.7 [facility] Comment on above: Order Comment: Reaso n for Exam Chronic kidney disease, stage III (moderate);Diabetes mellit Result Comment: PERF ORMED BY: [place] [address] PATHOLOGIST BONDACTOR MACHINE OPERATOR SHANTE LOMBARDI M.D. Performed By: #### C BCNO, PROCRERAT, CUU, ADDONUAPLUS, RENAL, MG, URIC, PTH, [id number] #### [address] Platelets (Bld) [#/Vol] 272 10*3/uL Normal 150-450 [facility] Comment on above: Order Comment: Reaso n for Exam Chronic kidney disease, stage III (moderate);Diabetes mellit Performed By: #### C BCNO, PROCRERAT, CUU, ADDONUAPLUS, RENAL, MG, URIC, PTH, [id number] #### [address] RBC (Bld) [#/Vol] 4.61 10*6/uL Normal 3.60-5.00 [facility] Comment on above: Order Comment: Reaso n for Exam Chronic kidney disease, stage III (moderate);Diabetes mellit Performed By: #### C BCNO, PROCRERAT, CUU, ADDONUAPLUS, RENAL, MG, URIC, PTH, [id number] #### [address] WBC (Bld) [#/Vol] 14.0 10*3/uL High 3.8-11.6 [facility] Comment on above: Order Comment: Reaso n for Exam Chronic kidney disease, stage III (moderate);Diabetes mellit Performed By: #### C BCNO, PROCRERAT, CUU, ADDONUAPLUS, RENAL, MG, URIC, PTH, [id number] #### [address] Magnesiumon 09-18-2022 Magnesium [Mass/Vol] 1.9 mg/dL Normal 1.9-2.7 [facility] Comment on above: Order Comment: Reaso n for Exam Chronic kidney disease, stage III (moderate);Diabetes mellit Performed By: #### C BCNO, PROCRERAT, CUU, ADDONUAPLUS, RENAL, MG, URIC, PTH, [id number] #### [facility] [address] [place] [id number] [facility] Parathyroid Hormone Intacton 09-18-2022 Parathyroid Hormone Intact 33.9 pg/mL Normal 12-88 [facility] Comment on above: Order Comment: Reaso n for Exam Chronic kidney disease, stage III (moderate);Diabetes mellit Result Comment: PERF ORMED BY: [place] [address] PATHOLOGIST BONDACTOR MACHINE OPERATOR SHANTE LOMBARDI M.D. Performed By: #### C BCNO, PROCRERAT, CUU, ADDONUAPLUS, RENAL, MG, URIC, PTH, [id number] #### [facility] [address] Protein Creat Ratio Ur Rando mon 09-18-2022 Creatinine, Urine (Random) 101.0 mg/dL High 11.0-20.0 [facility] Comment on above: Order Comment: Reaso n for Exam Chronic kidney disease, stage III (moderate);Diabetes mellit Performed By: #### C BCNO, PROCRERAT, CUU, ADDONUAPLUS, RENAL, MG, URIC, PTH, [id number] #### [facility] [address] Protein (U) [Mass/Vol] 10 mg/dL High 0-9 [facility] Comment on above: Order Comment: Reaso n for Exam Chronic kidney disease, stage III (moderate);Diabetes mellit Performed By: #### C BCNO, PROCRERAT, CUU, ADDONUAPLUS, RENAL, MG, URIC, PTH, [id number] #### [facility] [address] [place] [id number] [facility] Urine Protein/Creatinine Ratio 99 mg/g{Cre} Normal 0-200 [facility] Comment on above: Order Comment: Reaso n for Exam Chronic kidney disease, stage III (moderate);Diabetes mellit Result Comment: PERF ORMED BY: [place] [address] PATHOLOGIST BONDACTOR MACHINE OPERATOR SHANTE LOMBARDI M.D. Performed By: #### C BCNO, PROCRERAT, CUU, ADDONUAPLUS, RENAL, MG, URIC, PTH, [id number] #### [address] Renal Function Panelon 09-18 Albumin [Mass/Vol] 3.9 g/dL Normal 3.5-5.7 [facility] Comment on above: Order Comment: Reaso n for Exam Chronic kidney disease, stage III (moderate);Diabetes mellit Performed By: #### C BCNO, PROCRERAT, CUU, ADDONUAPLUS, RENAL, MG, URIC, PTH, [id number] #### [address] Anion gap [Moles/Vol] 14.0 mmol/L Normal 6.0-15.0 [facility] Comment on above: Order Comment: Reaso n for Exam Chronic kidney disease, stage III (moderate);Diabetes mellit Performed By: #### C BCNO, PROCRERAT, CUU, ADDONUAPLUS, RENAL, MG, URIC, PTH, [id number] #### [address] Calcium [Mass/Vol] 10.0 mg/dL Normal 8.6-10.3 [facility] Comment on above: Order Comment: Reaso n for Exam Chronic kidney disease, stage III (moderate);Diabetes mellit Performed By: #### C BCNO, PROCRERAT, CUU, ADDONUAPLUS, RENAL, MG, URIC, PTH, [id number] #### [address] Chloride [Moles/Vol] 101 mmol/L Normal 98-107 [facility] Comment on above: Order Comment: Reaso n for Exam Chronic kidney disease, stage III (moderate);Diabetes mellit Performed By: #### C BCNO, PROCRERAT, CUU, ADDONUAPLUS, RENAL, MG, URIC, PTH, [id number] #### [facility] [address] [place] [phone] [facility] CO2 [Moles/Vol] 27.9 mmol/L Normal 21.0-31.0 [facility] Comment on above: Order Comment: Reaso n for Exam Chronic kidney disease, stage III (moderate);Diabetes mellit Performed By: #### C BCNO, PROCRERAT, CUU, ADDONUAPLUS, RENAL, MG, URIC, PTH, [id number] #### [facility] [address] Creatinine [Mass/Vol] 1.78 mg/dL High 0.60-1.20 [facility] Comment on above: Order Comment: Reaso n for Exam Chronic kidney disease, stage III (moderate);Diabetes mellit Performed By: #### C BCNO, PROCRERAT, CUU, ADDONUAPLUS, RENAL, MG, URIC, PTH, [id number] #### [facility] [address] GFR/1.73 sq M.predicted MDRD (S/P/Bld) [Vol rate/Area] 31.104 mL/min/{1.73_m2} [facility] Comment on above: Order Comment: Reaso n for Exam Chronic kidney disease, stage III (moderate);Diabetes mellit Performed By: #### C BCNO, PROCRERAT, CUU, ADDONUAPLUS, RENAL, MG, URIC, PTH, [id number] #### [facility] [address] Glucose [Mass/Vol] 167 mg/dL High 70-100 [facility] Comment on above: Order Comment: Reaso n for Exam Chronic kidney disease, stage III (moderate);Diabetes mellit Result Comment: [place] Glucose Reference Range is dependent on time and content of last meal. Glucose of more than 200 mg/dL in a nonstressed, ambulatory subject supports the diagnosis of Diabetes Mellitus. ADA recommended reference range Performed By: #### C BCNO, PROCRERAT, CUU, ADDONUAPLUS, RENAL, MG, URIC, PTH, [id number] #### [facility] [address] [place] [id number] [facility] Phosphate [Mass/Vol] 4.4 mg/dL Normal 3.7-7.2 [facility] Comment on above: Order Comment: Reaso n for Exam Chronic kidney disease, stage III (moderate);Diabetes mellit Performed By: #### C BCNO, PROCRERAT, CUU, ADDONUAPLUS, RENAL, MG, URIC, PTH, [id number] #### [facility] [address] [place] [id number] [facility] Potassium [Moles/Vol] 4.9 mmol/L Normal 3.5-5.1 [facility] Comment on above: Order Comment: Reaso n for Exam Chronic kidney disease, stage III (moderate);Diabetes mellit Performed By: #### C BCNO, PROCRERAT, CUU, ADDONUAPLUS, RENAL, MG, URIC, PTH, [id number] #### [facility] [address] [place] [phone] [facility] Sodium [Moles/Vol] 138 mmol/L Normal 136-145 [facility] Comment on above: Order Comment: Reaso n for Exam Chronic kidney disease, stage III (moderate);Diabetes mellit Performed By: #### C BCNO, PROCRERAT, CUU, ADDONUAPLUS, RENAL, MG, URIC, PTH, [id number] #### [facility] [address] [place] [id number] [facility] Urea nitrogen [Mass/Vol] 43 mg/dL High 7-25 [facility] Comment on above: Order Comment: Reaso n for Exam Chronic kidney disease, stage III (moderate);Diabetes mellit Performed By: #### C BCNO, PROCRERAT, CUU, ADDONUAPLUS, RENAL, MG, URIC, PTH, [id number] #### [facility] [address] [place] [id number] [facility] Uric Acidon 09-18-2022 Urate [Mass/Vol] 9.7 mg/dL High 2.3-6.6 [facility] Comment on above: Order Comment: Reaso n for Exam Chronic kidney disease, stage III (moderate);Diabetes mellit Performed By: #### C BCNO, PROCRERAT, CUU, ADDONUAPLUS, RENAL, MG, URIC, PTH, [id number] #### [facility] [address] [place] [phone] [facility] Urine Cultureon 09-18-2022 Bacteria identified Cx Nom (U) ORGANISM: Escherichia coli (O:ESCCOL) Candia Count >100,000 Aerobic JACEY Charge (NMIC56) ------ [...] RESISTANT TO ALL B-LACTAM DRUGS. PERFORMED BY: [facility] [address] [facility] [place] [id number] PATHOLOGIST BONDACTOR MACHINE OPERATOR SHANTE LOMBARDI M.D. Normal [facility] Comment on above: Performed By: #### C BCNO, PROCRERAT, CUU, ADDONUAPLUS, RENAL, MG, URIC, PTH, [id number] #### [address] Vitamin D 25 Hydroxy Totalon 09-18-2022 Vitamin D 25 Hydroxy Total 45.1 ng/mL Normal 30-100 [facility] Comment on above: Order Comment: Reaso n for Exam Chronic kidney disease, stage III (moderate);Diabetes mellit Result Comment: DEBORAH MIN D STATUS 25(OH)VITAMIN D RANGE (ng/mL) Deficient <20 Insufficient 20 to <30 Sufficient 30 to 100 Reference: Raven MF,Isai CLARK, Randa WALSH, et al. Evaluation,treatment, and prevention of vitamin D deficiency; an Endocrine Society clinical practice guideline. JCEM. 2010; 96(7):1911-30. PERFORMED BY: [place] [address] PATHOLOGIST BONDACTOR MACHINE OPERATOR SHANTE LOMBARDI M.D. Performed By: #### C BCNO, PROCRERAT, CUU, ADDONUAPLUS, RENAL, MG, URIC, PTH, [id number] #### [address] CBC AUTO DIFFon 06-28-2022 BASO # 0.1 103/ul Normal 0.0-0.1 [facility] Comment on above: Performed By: #### C BC #### [facility] [address] [place] [address] Dr. Briana Dillard Basophils/100 WBC (Bld) 0.8 % Normal 0.2-2.0 [facility] Comment on above: Performed By: #### C BC #### [facility] [address] [place] [address] Dr. Briana Dillard EO # 0.3 103/ul Normal 0.0-0.7 [facility] Comment on above: Performed By: #### C BC #### [facility] [address] [place] [address] Dr. Briana Dillard Eosinophils/100 WBC (Bld) 2.5 % Normal 0.9-7.0 [facility] Comment on above: Performed By: #### C BC #### [facility] [address] [place] [address] Dr. Briana Dillard Erythrocyte distribution width (RBC) [Ratio] 14.8 % Normal 11.0-15.0 [facility] Comment on above: Performed By: #### C BC #### [facility] [address] [place] [address] Dr. Briana Dillard Hematocrit (Bld) [Volume fraction] 43.8 % Normal 36.0-48.0 [facility] Comment on above: Performed By: #### C BC #### [facility] [address] [place] [address] Dr. Briana Dillard Hemoglobin (Bld) [Mass/Vol] 14.5 g/dL Normal 12.0-16.0 [facility] Comment on above: Performed By: #### C BC #### [facility] [address] [place] [address] Dr. Briana Dillard IG # 0.13 10e3/ul Critically high 0.00-0.03 [facility] Comment on above: Performed By: #### C BC #### [facility] [address] [place] [address] Dr. Briana Dillard IG % 1.0 % Critically high 0.0-0.5 [facility] Comment on above: Performed By: #### C BC #### [facility] [address] [place] [address] Dr. Briana Dillard LYMPH # 2.5 103/ul Normal 1.2-3.8 [facility] Comment on above: Performed By: #### C BC #### [facility] [address] [place] [address] Dr. Briana Dillard Lymphocytes/100 WBC (Bld) 19.1 % Critically low 20.5-60.0 [facility] Comment on above: Performed By: #### C BC #### [facility] [address] [place] [address] Dr. Briana Dillard MANUAL DIFF REQ NO Normal [facility] Comment on above: Performed By: #### C BC #### [facility] [address] [place] [address] Dr. Briana Dillard MCH (RBC) [Entitic mass] 30.8 pg Normal 26.7-34.0 [facility] Comment on above: Performed By: #### C BC #### [facility] [address] [place] [address] Dr. Briana Dillard MCHC (RBC) [Mass/Vol] 33.1 g/dL Normal 29.9-35.2 [facility] Comment on above: Performed By: #### C BC #### [facility] [address] [place] [address] Dr. Briana Dillard MCV (RBC) [Entitic vol] 93.0 fL Normal 81.0-99.0 [facility] Comment on above: Performed By: #### C BC #### [facility] [address] [place] [address] Dr. Briana Dillard MONO # 0.7 103/ul Normal 0.3-0.8 [facility] Comment on above: Performed By: #### C BC #### [facility] [address] [place] [address] Dr. Briana Dillard Monocytes/100 WBC (Bld) 5.7 % Normal 1.7-12.0 [facility] Comment on above: Performed By: #### C BC #### [facility] [address] [place] [address] Dr. Briana Dillard NEUT # 9.2 103/ul Critically high 1.4-6.5 [facility] Comment on above: Performed By: #### C BC #### [facility] [address] [place] [address] Dr. Briana Dillard Neutrophils/100 WBC (Bld) 70.9 % Normal 43.0-75.0 [facility] Comment on above: Performed By: #### C BC #### [facility] [address] [place] [address] Dr. Briana Dillard Platelet mean volume (Bld) [Entitic vol] 10.4 fL Normal 9.5-13.5 [facility] Comment on above: Performed By: #### C BC #### [facility] [address] [place] [address] [address] Briana Dillard PLT 262 103/ul Normal 150-450 [facility] Comment on above: Performed By: #### C BC #### [facility] [address] [place] [address] [address] Briana Dillard RBC 4.71 106/ul Normal 4.20-5.40 [facility] Comment on above: Performed By: #### C BC #### [facility] [address] [place] [address] Dr. Briana Dillard WBC 13.0 103/ul Critically high 4.0-11.0 [facility] Comment on above: Performed By: #### C BC #### [facility] [address] [place] [address] Dr. Briana Dillard DIRECT LDLon 06-28-2022 Cholesterol in LDL [Mass/Vol] 90 mg/dL Normal [facility] Comment on above: Performed By: #### C MP CMADM, BNP #### [facility] [address] [place] [address] Dr. Briana Dillard DLDL NORMAL SEE BELOW Normal [facility] Comment on above: Result Comment: <100 mg/dl OPTIMAL 100 - 129 mg/dl NEAR OR ABOVE OPTIMAL 130 - 159 mg/dl BORDERLINE HIGH 160 - 189 mg/dl HIGH >190 mg/dl VERY HIGH Performed By: #### C MP, CMADM, BNP #### [facility] [address] [place] [address] Dr. Briana Dillard GLYCOHEMOGLOBIN A1Con 2022 ADA RECOMMENDATION SEE BELOW Normal [facility] Comment on above: Result Comment: ADA RECOMMENDED LIMIT 4.0 - 6.0 ADA THERAPEUTIC TARGET < 7.0 ACTION SUGGESTED > 7.0 Performed By: #### C MP CMADM, BNP #### [facility] [address] [place] [address] Dr. Briana Dillard Glucose [Mass/Vol] 229 mg/dL Normal [facility] Comment on above: Performed By: #### C MP, CMADM, BNP #### [facility] [address] [address] [address] Briana Dillard HbA1c (Bld) [Mass fraction] 9.6 % Critically high 4.5-6.2 [facility] Comment on above: Performed By: #### C MP, CMADM, BNP #### [facility] [address] [address] [address] Briana Dillard LIPID PROFILEon 06-28-2022 CHOL-HDL RATIO NORM SEE BELOW Normal [facility] Comment on above: Result Comment: 3.3 - 4.4 LOW RISK 4.4 - 7.1 AVERAGE RISK 7.1 - 11.0 MODERATE RISK >11.0 HIGH RISK Performed By: #### C MP, CMADM, BNP #### [facility] [address] [address] [address] Briana Dillard Cholesterol [Mass/Vol] 219 mg/dL Critically high <=200 [facility] Comment on above: Performed By: #### C MP, CMADM, BNP #### [facility] [address] [address] [address] Briana Dillard Cholesterol in HDL [Mass/Vol] 32 mg/dL Critically low 40-60 [facility] Comment on above: Performed By: #### C MP, CMADM, BNP #### [facility] [address] [address] [address] Briana Dillard Cholesterol.total/Choles terol in HDL [Mass ratio] 6.8 {ratio} Normal [facility] Comment on above: Performed By: #### C MP, CMADM, BNP #### [facility] [address] [address] [address] Briana Dillard HDL NORMAL > or = 60 mg/dl - LOW CARDIOVASCULAR RISK <40 mg/dl - HIGH CARDIOVASCULAR RISK Normal [facility] Comment on above: Performed By: #### C MP, CMADM, BNP #### [facility] [address] [address] [address] Briana Dillard LDL CALC NORMAL SEE BELOW Normal [facility] Comment on above: Result Comment: <100 mg/dl OPTIMAL 100 - 129 mg/dl NEAR OR ABOVE OPTIMAL 130 - 159 mg/dl BORDERLINE HIGH 160 - 189 mg/dl HIGH >190 mg/dl VERY HIGH Performed By: #### C MP, CMADM, BNP #### [facility] [address] [address] [address] Briana Dillard Triglyceride [Mass/Vol] 585 mg/dL Critically high <=150 [facility] Comment on above: Performed By: #### C MP, CMADM, BNP #### [facility] [address] [address] [address] Briana Dillard VLDL CALC 117.0 mg/dL Normal [facility] Comment on above: Performed By: #### C MP, CMADM, BNP #### [facility] [address] [address] [address] Briana Dillard PROF 14(COMP METB)on 023 Albumin [Mass/Vol] 3.6 g/dL Normal 3.4-5.0 [facility] Comment on above: Performed By: #### L IPID, CMP, DLDL #### [facility] [address] [address] [address] Briana Dillard Albumin/Globulin [Mass ratio] 0.9 {ratio} Normal [facility] Comment on above: Performed By: #### L IPID, CMP, DLDL #### [facility] [address] [address] [address] Briana Dillard ALP [Catalytic activity/Vol] 117 U/L Critically high 46-116 [facility] Comment on above: Performed By: #### L IPID, CMP, DLDL #### [facility] [address] [address] [address] Briana Dillard ALT [Catalytic activity/Vol] 42 U/L Normal 14-59 [facility] Comment on above: Performed By: #### L IPID, CMP, DLDL #### [facility] [address] [address] [address] Briana Dillard Anion gap [Moles/Vol] 15.4 mmol/L Normal [facility] Comment on above: Performed By: #### L IPID, CMP, DLDL #### [facility] [address] [address] [address] Briana Dillard AST [Catalytic activity/Vol] 29 U/L Normal 15-37 [facility] Comment on above: Performed By: #### L IPID, CMP, DLDL #### [facility] [address] [address] [address] Briana Dillard Bilirubin [Mass/Vol] 0.4 mg/dL Normal 0.2-1.0 [facility] Comment on above: Performed By: #### L IPID, CMP, DLDL #### [facility] [address] [place] [address] Dr. Briana Dillard Calcium [Mass/Vol] 10.2 mg/dL Critically high 8.5-10.1 [facility] Comment on above: Performed By: #### L IPID, CMP, DLDL #### [facility] [address] [place] [address] Dr. Briana Dillard Chloride [Moles/Vol] 100 mmol/L Normal 98-107 [facility] Comment on above: Performed By: #### L IPID, CMP, DLDL #### [facility] [address] [place] [address] Dr. Briana Dillard CO2 [Moles/Vol] 27.3 mmol/L Normal 21.0-32.0 [facility] Comment on above: Performed By: #### L IPID, CMP, DLDL #### [facility] [address] [place] [address] Dr. Birana Dillard Creatinine [Mass/Vol] 1.40 mg/dL Critically high 0.55-1.02 [facility] Comment on above: Performed By: #### L IPID, CMP, DLDL #### [facility] [address] [place] [address] Dr. Briana Dillard EGFR-AF MALDIVIAN 46 mL/min/1.73m2 Critically low >=60 [facility] Comment on above: Performed By: #### L IPID, CMP, DLDL #### [facility] [address] [address] [address] Briana Dillard EGFR-NON AF MALDIVIAN 38 mL/min/1.73m2 Critically low >=60 [facility] Comment on above: Performed By: #### L IPID, CMP, DLDL #### [facility] [address] [address] [address] Briana Dillard Globulin (S) [Mass/Vol] 3.9 g/dL Normal [facility] Comment on above: Performed By: #### L IPID, CMP, DLDL #### [facility] [address] [address] [address] Briana Dillard Glucose [Mass/Vol] 295 mg/dL Critically high 74-106 [facility] Comment on above: Performed By: #### L IPID, CMP, DLDL #### [facility] [address] [place] [address] Dr. Briana Dillard Potassium [Moles/Vol] 4.7 mmol/L Normal 3.5-5.1 [facility] Comment on above: Performed By: #### L IPID, CMP, DLDL #### [facility] [address] [address] [address] Briana Dillard Protein [Mass/Vol] 7.5 g/dL Normal 6.4-8.2 [facility] Comment on above: Performed By: #### L IPID, CMP, DLDL #### [facility] [address] [address] [address] Briana Dillard Sodium [Moles/Vol] 138 mmol/L Normal 136-145 [facility] Comment on above: Performed By: #### L IPID, CMP, DLDL #### [facility] [address] [address] [address] Briana Dillard Urea nitrogen [Mass/Vol] 34.0 mg/dL Critically high 7.0-18 .0 [facility] Comment on above: Performed By: #### L IPID, CMP, DLDL #### [facility] [address] [place] [address] Dr. Briana Dillard Urea nitrogen/Creatinine [Mass ratio] 24.3 mg/mg Normal [facility] Comment on above: Performed By: #### L IPID, CMP, DLDL #### [facility] [address] [place] [address] Dr. Briana Dillard UA RANDOM W/MICROSCOPICon BACTERIA TRACE Abnormal NONE SEEN [facility] Comment on above: Performed By: #### C MP, CMADM, BNP #### [facility] [address] [address] [address] Briana Dillard Bilirubin Ql (U) Negative Normal NEGATIVE [facility] Comment on above: Performed By: #### C MP, CMADM, BNP #### [facility] [address] [place] [address] Dr. Briana Dillard CAST NONE SEEN Normal NONE SEEN [facility] Comment on above: Performed By: #### C MP, CMADM, BNP #### [facility] [address] [place] [address] Dr. Briana Dillard Clarity (U) CLEAR Normal CLEAR [facility] Comment on above: Performed By: #### C MP, CMADM, BNP #### [facility] [address] [place] [address] Dr. Briana Dillard Color (U) LT. YELLOW Normal YELLOW [facility] Comment on above: Performed By: #### C MP, CMADM, BNP #### [facility] [address] [place] [address] Dr. Briana Dillard Crystals LM Nom (Urine sed) NONE SEEN Normal NONE SEEN [facility] Comment on above: Performed By: #### C MP, CMADM, BNP #### [facility] [address] [place] [address] Dr. Briana Dillard Epithelial cells LM Ql (Urine sed) MANY Abnormal NONE SEEN /RARE [facility] Comment on above: Performed By: #### C MP, CMADM, BNP #### [facility] [address] [place] [address] Dr. Briana Dillard Glucose Ql (U) Negative Normal NEGATIVE [facility] Comment on above: Performed By: #### C MP, CMADM, BNP #### [facility] [address] [address] [address] Briana Dillard Hemoglobin Ql (U) Negative Normal NEGATIVE [facility] Comment on above: Performed By: #### C MP, CMADM, BNP #### [facility] [address] [address] [address] Briana Dillard Ketones Ql (U) Negative Normal NEGATIVE [facility] Comment on above: Performed By: #### C MP, CMADM, BNP #### [facility] [address] [address] [address] Briana Dillard LEUKOCYTES TRACE Abnormal NEGATIVE [facility] Comment on above: Performed By: #### C MP, CMADM, BNP #### [facility] [address] [place] [address] Dr. Briana Dillard MUCOUS NONE SEEN Normal NONE SEEN [facility] Comment on above: Performed By: #### C MP, CMADM, BNP #### [facility] [address] [address] [address] Briana Dillard Nitrite Ql (U) Negative Normal NEGATIVE [facility] Comment on above: Performed By: #### C MP, CMADM, BNP #### [facility] [address] [place] [address] Dr. Briana Dillard pH (U) 6.0 [pH] Normal 5-9 [facility] Comment on above: Performed By: #### C MP, CMADM, BNP #### [facility] [address] [place] [address] Dr. Briana Dillard RBC 0-2 Normal 0-2 [facility] Comment on above: Performed By: #### C MP, CMADM, BNP #### [facility] [address] [address] [address] Briana Dillard SPEC GRAVITY 1.010 Normal 1.005-<=1.02 5 [facility] Comment on above: Performed By: #### C MP, CMADM, BNP #### [facility] [address] [place] [address] Dr. Briana Dillard UA PROTEIN TRACE Normal NEGATIVE/ TRACE [facility] Comment on above: Performed By: #### C MP, CMADM, BNP #### [facility] [address] [address] [address] Briana Dillard Urobilinogen Qn (U) 0.2 {Samuel'U}/dL Normal 0.2 - 1. 0 [facility] Comment on above: Performed By: #### C MP, CMADM, BNP #### [facility] [address] [place] [address] Dr. Briana Dillard WBC 2-5 Abnormal NONE SEEN [facility] Comment on above: Performed By: #### C MP, CMADM, BNP #### [facility] [address] [place] [address] Dr. Briana Dillard URINE T PROTEIN CREAT RATIOo n 06-28-2022 Protein (U) [Mass/Vol] 30.3 mg/dL Critically high <=12.0 [facility] Comment on above: Performed By: #### C MP, CMADM, BNP #### [facility] [address] [place] [address] Dr. Briana Dillard UR PROT CREAT RAT 0.80 Normal [facility] Comment on above: Performed By: #### C MP, CMADM, BNP #### [facility] [address] [place] [address] Dr. Briana Dillard URINE CREAT 38.11 mg/dL Normal 20.00-300.00 [facility] Comment on above: Performed By: #### C MP, CMADM, BNP #### [facility] [address] [place] [address] Dr. Briana Dillard POINT OF CARE GLUCOSEon - Glucose [Mass/Vol] 296 mg/dL Critically high 74-106 [facility] Comment on above: Performed By: #### C MP, CMADM, BNP #### [facility] [address] [place] [address] Dr. Briana Dillard POINT OF CARE GLUCOSEon - Glucose [Mass/Vol] 312 mg/dL Critically high 74-106 [facility] Comment on above: Performed By: #### C BC #### [facility] [address] [place] [address] Dr. Briana Dillard GLYCOHEMOGLOBIN A1Con 2021 ADA RECOMMENDATION SEE BELOW Normal [facility] Comment on above: Result Comment: ADA RECOMMENDED LIMIT 4.0 - 6.0 ADA THERAPEUTIC TARGET < 7.0 ACTION SUGGESTED > 7.0 Performed By: #### A 1C #### [facility] [address] [place] [address] Dr. Briana Dillard Glucose [Mass/Vol] 223 mg/dL Normal [facility] Comment on above: Performed By: #### A 1C #### [facility] [address] [place] [address] Dr. Briana Dillard HbA1c (Bld) [Mass fraction] 9.4 % Critically high 4.5-6.2 [facility] Comment on above: Performed By: #### A 1C #### [facility] [address] [place] [address] Dr. Briana Dillard CBC AUTO DIFFon 11-29-2021 BASO # 0.1 103/ul Normal 0.0-0.1 [facility] Comment on above: Performed By: #### C BC #### [facility] [address] [place] [address] Dr. Briana Dillard Basophils/100 WBC (Bld) 0.9 % Normal 0.2-2.0 [facility] Comment on above: Performed By: #### C BC #### [facility] [address] [place] [address] Dr. Briana Dillard EO # 0.3 103/ul Normal 0.0-0.7 [facility] Comment on above: Performed By: #### C BC #### [facility] [address] [place] [address] Dr. Briana Dillard Eosinophils/100 WBC (Bld) 2.7 % Normal 0.9-7.0 [facility] Comment on above: Performed By: #### C BC #### [facility] [address] [place] [address] Dr. Briana Dillard Erythrocyte distribution width (RBC) [Ratio] 15.8 % Critically high 11.0-15.0 [facility] Comment on above: Performed By: #### C BC #### [facility] [address] [place] [address] Dr. Briana Dillard Hematocrit (Bld) [Volume fraction] 39.4 % Normal 36.0-48.0 [facility] Comment on above: Performed By: #### C BC #### [facility] [address] [place] [address] Dr. Briana Dillard Hemoglobin (Bld) [Mass/Vol] 13.0 g/dL Normal 12.0-16.0 [facility] Comment on above: Performed By: #### C BC #### [facility] [address] [place] [address] Dr. Briana Dillard IG # 0.12 10e3/ul Critically high 0.00-0.03 [facility] Comment on above: Performed By: #### C BC #### [facility] [address] [place] [address] Dr. Briana Dillard IG % 1.1 % Critically high 0.0-0.5 [facility] Comment on above: Performed By: #### C BC #### [facility] [address] [place] [address] Dr. Briana Dillard LYMPH # 2.7 103/ul Normal 1.2-3.8 [facility] Comment on above: Performed By: #### C BC #### [facility] [address] [place] [address] Dr. Briana Dillard Lymphocytes/100 WBC (Bld) 25.6 % Normal 20.5-60.0 [facility] Comment on above: Performed By: #### C BC #### [facility] [address] [place] [address] Dr. Briana Dillard MANUAL DIFF REQ NO Normal [facility] Comment on above: Performed By: #### C BC #### [facility] [address] [place] [address] Dr. Briana Dillard MCH (RBC) [Entitic mass] 30.9 pg Normal 26.7-34.0 [facility] Comment on above: Performed By: #### C BC #### [facility] [address] [address] [address] Briana Dillard MCHC (RBC) [Mass/Vol] 33.0 g/dL Normal 29.9-35.2 [facility] Comment on above: Performed By: #### C BC #### [facility] [address] [address] [address] Briana Dillard MCV (RBC) [Entitic vol] 93.6 fL Normal 81.0-99.0 [facility] Comment on above: Performed By: #### C BC #### [facility] [address] [place] [address] Dr. Briana Dillard MONO # 0.8 103/ul Normal 0.3-0.8 [facility] Comment on above: Performed By: #### C BC #### [facility] [address] [address] [address] Briana Dillard Monocytes/100 WBC (Bld) 7.9 % Normal 1.7-12.0 [facility] Comment on above: Performed By: #### C BC #### [facility] [address] [place] [address] Dr. Briana Dillard NEUT # 6.6 103/ul Critically high 1.4-6.5 [facility] Comment on above: Performed By: #### C BC #### [facility] [address] [place] [address] Dr. Briana Dillard Neutrophils/100 WBC (Bld) 61.8 % Normal 43.0-75.0 [facility] Comment on above: Performed By: #### C BC #### [facility] [address] [address] [address] Briana Dillard Platelet mean volume (Bld) [Entitic vol] 10.3 fL Normal 9.5-13.5 [facility] Comment on above: Performed By: #### C BC #### [facility] [address] [place] [address] Dr. Briana Dillard PLT 234 103/ul Normal 150-450 [facility] Comment on above: Performed By: #### C BC #### [facility] [address] [address] [address] Briana Dillard RBC 4.21 106/ul Normal 4.20-5.40 [facility] Comment on above: Performed By: #### C BC #### [facility] [address] [place] [address] Dr. Briana Dillard WBC 10.6 103/ul Normal 4.0-11.0 [facility] Comment on above: Performed By: #### C BC #### [facility] [address] [place] [address] Dr. Briana Dillard GLYCOHEMOGLOBIN A1Con 2021 ADA RECOMMENDATION SEE BELOW Normal [facility] Comment on above: Result Comment: ADA RECOMMENDED LIMIT 4.0 - 6.0 ADA THERAPEUTIC TARGET < 7.0 ACTION SUGGESTED > 7.0 Performed By: #### C BC #### [facility] [address] [place] [address] Dr. Briana Dillard Glucose [Mass/Vol] 220 mg/dL Normal [facility] Comment on above: Performed By: #### C BC #### [facility] [address] [place] [address] Dr. Briana Dillard HbA1c (Bld) [Mass fraction] 9.3 % Critically high 4.5-6.2 [facility] Comment on above: Performed By: #### C BC #### [facility] [address] [place] [address] Dr. Briana Dillard LIPID PROFILEon 11-29-2021 CHOL-HDL RATIO NORM SEE BELOW Normal [facility] Comment on above: Result Comment: 3.3 - 4.4 LOW RISK 4.4 - 7.1 AVERAGE RISK 7.1 - 11.0 MODERATE RISK >11.0 HIGH RISK Performed By: #### C MP, CMADM, BNP #### [facility] [address] [place] [address] Dr. Briana Dillard Cholesterol [Mass/Vol] 135 mg/dL Normal <=200 [facility] Comment on above: Performed By: #### C MP, CMADM, BNP #### [facility] [address] [address] [address] Briana Dillard Cholesterol in HDL [Mass/Vol] 44 mg/dL Normal 40-60 [facility] Comment on above: Performed By: #### C MP, CMADM, BNP #### [facility] [address] [address] [address] Briana Dillard Cholesterol in LDL [Mass/Vol] 60.2 mg/dL Normal [facility] Comment on above: Performed By: #### C MP, CMADM, BNP #### [facility] [address] [address] [address] Briana Dillard Cholesterol.total/Choles terol in HDL [Mass ratio] 3.1 {ratio} Normal [facility] Comment on above: Performed By: #### C MP, CMADM, BNP #### [facility] [address] [address] [address] Briana Dillard HDL NORMAL > or = 60 mg/dl - LOW CARDIOVASCULAR RISK <40 mg/dl - HIGH CARDIOVASCULAR RISK Normal [facility] Comment on above: Performed By: #### C MP, CMADM, BNP #### [facility] [address] [address] [address] Briana Dillard LDL CALC NORMAL SEE BELOW Normal [facility] Comment on above: Result Comment: <100 mg/dl OPTIMAL 100 - 129 mg/dl NEAR OR ABOVE OPTIMAL 130 - 159 mg/dl BORDERLINE HIGH 160 - 189 mg/dl HIGH >190 mg/dl VERY HIGH Performed By: #### C MP, CMADM, BNP #### [facility] [address] [address] [address] Briana Dillard Triglyceride [Mass/Vol] 154 mg/dL Critically high <=150 [facility] Comment on above: Performed By: #### C MP, CMADM, BNP #### [facility] [address] [address] [address] Briana Dillard VLDL CALC 30.8 mg/dL Normal [facility] Comment on above: Performed By: #### C MP, CMADM, BNP #### [facility] [address] [place] [address] Dr. Briana Dillard POINT OF CARE GLUCOSEon - Glucose [Mass/Vol] 271 mg/dL Critically high -106 [facility] Comment on above: Performed By: #### C BC #### [facility] [address] [place] [address] Dr. Briana Dillard Glucose [Mass/Vol] 180 mg/dL Critically high 74-106 [facility] Comment on above: Performed By: #### C MP, CMADM, BNP #### [facility] [address] [place] [address] Dr. Briana Dillard BNPon 11-28-2021 Natriuretic peptide B (Bld) [Mass/Vol] 86.0 pg/mL Normal <=900.0 [facility] Comment on above: Performed By: #### C MP, CMADM, BNP #### [facility] [address] [place] [address] Dr. Briana Dillard CARDIAC TANIA ADMITon 022 CK [Catalytic activity/Vol] 52 U/L Normal 26-192 [facility] Comment on above: Performed By: #### C MP, CMADM, BNP #### [facility] [address] [place] [address] Dr. Briana Dillard CK.MB [Mass/Vol] 0.65 ng/mL Normal <=3.60 [facility] Comment on above: Performed By: #### C MP, CMADM, BNP #### [facility] [address] [place] [address] Dr. Briana Dillard HSTROP 4.8 pg/mL Normal 4.0-51.3 [facility] Comment on above: Result Comment: CUT- OFF POINTS HAVE BEEN ESTABLISHED BASED ON THE FOURTH UNIVERSAL DEFINITIONS OF MYOCARDIAL INFARCTION. THE UPPER REFERENCE LIMIT (URL) OF TROPONIN, DEFINED THE 99TH PERCENTILE OF cTnI DISTRIBUTION IN A REFERENCE POPULATION, HAS BEEN CONFIRMED THE DECISION THRESHOLD FOR MD DIAGNOSIS. Performed By: #### C MP, CMADM, BNP #### [facility] [address] [place] [address] Dr. Briana Dillard YONIS 47 ng/mL Normal 9-82 [facility] Comment on above: Performed By: #### C MP, CMADM, BNP #### [facility] [address] [place] [address] Dr. Briana Dillard CBC AUTO DIFFon 11-28-2021 BASO # 0.1 103/ul Normal 0.0-0.1 [facility] Comment on above: Performed By: #### C BC #### [facility] [address] [place] [address] Dr. Briana Dillard Basophils/100 WBC (Bld) 0.8 % Normal 0.2-2.0 [facility] Comment on above: Performed By: #### C BC #### [facility] [address] [place] [address] Dr. Briana Dillard EO # 0.2 103/ul Normal 0.0-0.7 [facility] Comment on above: Performed By: #### C BC #### [facility] [address] [place] [address] Dr. Briana Dillard Eosinophils/100 WBC (Bld) 1.4 % Normal 0.9-7.0 [facility] Comment on above: Performed By: #### C BC #### [facility] [address] [place] [address] Dr. Briana Dillard Erythrocyte distribution width (RBC) [Ratio] 15.8 % Critically high 11.0-15.0 [facility] Comment on above: Performed By: #### C BC #### [facility] [address] [place] [address] Dr. Briana Dillard Hematocrit (Bld) [Volume fraction] 42.2 % Normal 36.0-48.0 [facility] Comment on above: Performed By: #### C BC #### [facility] [address] [place] [address] Dr. Briana Dillard Hemoglobin (Bld) [Mass/Vol] 14.3 g/dL Normal 12.0-16.0 [facility] Comment on above: Performed By: #### C BC #### [facility] [address] [place] [address] Dr. Briana Dillard IG # 0.14 10e3/ul Critically high 0.00-0.03 [facility] Comment on above: Performed By: #### C BC #### [facility] [address] [place] [address] Dr. Briana Dillard IG % 1.1 % Critically high 0.0-0.5 [facility] Comment on above: Performed By: #### C BC #### [facility] [address] [place] [address] Dr. Briana Dillard LYMPH # 1.9 103/ul Normal 1.2-3.8 [facility] Comment on above: Performed By: #### C BC #### [facility] [address] [place] [address] Dr. Briana Dillard Lymphocytes/100 WBC (Bld) 14.0 % Critically low 20.5-60.0 [facility] Comment on above: Performed By: #### C BC #### [facility] [address] [place] [address] Dr. Briana Dillard MANUAL DIFF REQ NO Normal [facility] Comment on above: Performed By: #### C BC #### [facility] [address] [place] [address] Dr. Briana Dillard MCH (RBC) [Entitic mass] 31.2 pg Normal 26.7-34.0 [facility] Comment on above: Performed By: #### C BC #### [facility] [address] [place] [address] Dr. Briana Dillard MCHC (RBC) [Mass/Vol] 33.9 g/dL Normal 29.9-35.2 [facility] Comment on above: Performed By: #### C BC #### [facility] [address] [place] [address] Dr. Briana Dillard MCV (RBC) [Entitic vol] 92.1 fL Normal 81.0-99.0 [facility] Comment on above: Performed By: #### C BC #### [facility] [address] [place] [address] Dr. Briana Dillard MONO # 1.1 103/ul Critically high 0.3-0.8 [facility] Comment on above: Performed By: #### C BC #### [facility] [address] [place] [address] Dr. Briana Dillard Monocytes/100 WBC (Bld) 8.0 % Normal 1.7-12.0 [facility] Comment on above: Performed By: #### C BC #### [facility] [address] [place] [address] Dr. Briana Dillard NEUT # 9.9 103/ul Critically high 1.4-6.5 [facility] Comment on above: Performed By: #### C BC #### [facility] [address] [place] [address] Dr. Briana Dillard Neutrophils/100 WBC (Bld) 74.7 % Normal 43.0-75.0 [facility] Comment on above: Performed By: #### C BC #### [facility] [address] [place] [address] Dr. Briana Dillard Platelet mean volume (Bld) [Entitic vol] 10.1 fL Normal 9.5-13.5 [facility] Comment on above: Performed By: #### C BC #### [facility] [address] [place] [address] Dr. Briana Dillard PLT 241 103/ul Normal 150-450 [facility] Comment on above: Performed By: #### C BC #### [facility] [address] [place] [address] Dr. Briana Dillard RBC 4.58 106/ul Normal 4.20-5.40 [facility] Comment on above: Performed By: #### C BC #### [facility] [address] [place] [address] Dr. Briana Dillard WBC 13.2 103/ul Critically high 4.0-11.0 [facility] Comment on above: Performed By: #### C BC #### [facility] [address] [place] [address] Dr. Briana Dillard CTA CHEST WO W CONon 07-28-2 022 CTA CHEST WO W CON EXAMINATION: [...] NADJA KEMP Date: 2021-11-28 13:10 Normal [facility]02 SARS-CoV-2 (COVID-19) RNA ANTOINE+probe Ql (Unsp spec) Not detected Normal NOT DETECTED [facility] Comment on above: Result Comment: When [...] for this test is supported by the Trading Specialist of Health and Human Service's declaration that [...] By: #### C MP, CMADM, BNP #### [facility] [address] [place] [address] [address] Briana Dillard D-DIMERon 11-28-2021 D-DIMER 0.77 mg/L FEU Critically high <=0.59 [facility] Comment on above: Performed By: #### P T, PTT, DDIM #### [facility] [address] [address] [address] Briana Dillard D-DIMER COMMENTS SEE BELOW Normal [facility] Comment on above: Result Comment: Incr eases [...] By: #### P T, PTT, DDIM #### [facility] [address] [place] [address] Dr. Briana Dillard POINT OF CARE GLUCOSEon 11-02 Glucose [Mass/Vol] 213 mg/dL Critically high [address] [place] [address] Comment on above: Performed By: #### P OCGLUC #### [facility] [address] [place] [address] Dr. Briana Dillard Glucose [Mass/Vol] 255 mg/dL Critically high -106 [facility] Comment on above: Performed By: #### C MP, CMADM, BNP #### [facility] [address] [place] [address] Dr. Briana Dillard PROF 14(COMP METB)on 022 Albumin [Mass/Vol] 3.4 g/dL Normal 3.4-5.0 [facility] Comment on above: Performed By: #### C MP, CMADM, BNP #### [facility] [address] [place] [address] Dr. Briana Dillard Albumin/Globulin [Mass ratio] 0.9 {ratio} Normal [facility] Comment on above: Performed By: #### C MP, CMADM, BNP #### [facility] [address] [place] [address] Dr. Briana Dillard ALP [Catalytic activity/Vol] 126 U/L Critically high 46-116 [facility] Comment on above: Performed By: #### C MP, CMADM, BNP #### [facility] [address] [place] [address] Dr. Briana Dillard ALT [Catalytic activity/Vol] 30 U/L Normal 14-59 [facility] Comment on above: Performed By: #### C MP, CMADM, BNP #### [facility] [address] [place] [address] Dr. Briana Dillard Anion gap [Moles/Vol] 13.6 mmol/L Normal [facility] Comment on above: Performed By: #### C MP, CMADM, BNP #### [facility] [address] [place] [address] Dr. Briana Dillard AST [Catalytic activity/Vol] 18 U/L Normal 15-37 [facility] Comment on above: Performed By: #### C MP, CMADM, BNP #### [facility] [address] [place] [address] Dr. Briana Dillard Bilirubin [Mass/Vol] 0.4 mg/dL Normal 0.2-1.0 [facility] Comment on above: Performed By: #### C MP, CMADM, BNP #### [facility] [address] [place] [address] Dr. Briana Dillard Calcium [Mass/Vol] 8.9 mg/dL Normal 8.5-10.1 [facility] Comment on above: Performed By: #### C MP, CMADM, BNP #### [facility] [address] [place] [address] Dr. Briana Dillard Chloride [Moles/Vol] 98 mmol/L Normal 98-107 [facility] Comment on above: Performed By: #### C MP, CMADM, BNP #### [facility] [address] [address] [address] Briana Dillard CO2 [Moles/Vol] 25.0 mmol/L Normal 21.0-32.0 [facility] Comment on above: Performed By: #### C MP, CMADM, BNP #### [facility] [address] [address] [address] Briana Dillard Creatinine [Mass/Vol] 1.58 mg/dL Critically high 0.55-1.02 [facility] Comment on above: Performed By: #### C MP, CMADM, BNP #### [facility] [address] [address] [address] Briana Dillard EGFR-AF MALDIVIAN 40 mL/min/1.73m2 Critically low >=60 [facility] Comment on above: Performed By: #### C MP, CMADM, BNP #### [facility] [address] [place] [address] Dr. Brinaa Dillard EGFR-NON AF MALDIVIAN 33 mL/min/1.73m2 Critically low >=60 [facility] Comment on above: Performed By: #### C MP, CMADM, BNP #### [facility] [address] [address] [address] Briana Dillard Globulin (S) [Mass/Vol] 4.0 g/dL Normal [facility] Comment on above: Performed By: #### C MP, CMADM, BNP #### [facility] [address] [address] [address] Briana Dillard Glucose [Mass/Vol] 386 mg/dL Critically high 74-106 [facility] Comment on above: Performed By: #### C MP, CMADM, BNP #### [facility] [address] [address] [address] Briana Dillard Potassium [Moles/Vol] 4.6 mmol/L Normal 3.5-5.1 [facility] Comment on above: Performed By: #### C MP, CMADM, BNP #### [facility] [address] [address] [address] Briana Dillard Protein [Mass/Vol] 7.4 g/dL Normal 6.4-8.2 [facility] Comment on above: Performed By: #### C MP, CMADM, BNP #### [facility] [address] [place] [address] Dr. Briana Dillard Sodium [Moles/Vol] 132 mmol/L Critically low 136-145 [facility] Comment on above: Performed By: #### C MP, CMADM, BNP #### [facility] [address] [place] [address] Dr. Briana Dillard Urea nitrogen [Mass/Vol] 23.0 mg/dL Critically high 7.0-18 .0 [facility] Comment on above: Performed By: #### C MP, CMADM, BNP #### [facility] [address] [place] [address] Dr. Briana Dillard Urea nitrogen/Creatinine [Mass ratio] 14.6 mg/mg Normal [facility] Comment on above: Performed By: #### C MP, CMADM, BNP #### [facility] [address] [place] [address] Dr. Briana Dillard PROTIMEon 11-28-2021 INR Coag (PPP) [Relative time] 1.01 {INR} Normal [facility] Comment on above: Performed By: #### P T, PTT, DDIM #### [facility] [address] [place] [address] Dr. Briana Dillard INR GUIDELINES SEE BELOW Normal [facility] Comment on above: Result Comment: LURDES RED INR: 2.0 - 3.0 CONDITIONS NOT LISTED BELOW 2.5 - 3.5 FOR PROSTHETIC HEART VALVE REPLACEMENT 2.5 - 3.5 RECURRENT THROMBOSIS Performed By: #### P T, PTT, DDIM #### [facility] [address] [place] [address] Dr. Briana Dillard PT Coag (PPP) [Time] 10.9 s Normal 9.0-11.6 [facility] Comment on above: Performed By: #### P T, PTT, DDIM #### [facility] [address] [place] [address] Dr. Briana Dillard PTTon 07-28-2022 aPTT Coag (Bld) [Time] 27.5 s Normal 22.3-36.2 [facility] Comment on above: Performed By: #### P T, PTT, DDIM #### [facility] [address] [address] [address] Briana Dillard TROPONIN, HIGH SENSITIVITYon 11-28-2021 HSTROP 5.5 pg/mL Normal 4.0-51.3 [facility] Comment on above: Result Comment: CUT- OFF POINTS HAVE BEEN ESTABLISHED BASED ON THE FOURTH UNIVERSAL DEFINITIONS OF MYOCARDIAL INFARCTION. THE UPPER REFERENCE LIMIT (URL) OF TROPONIN, DEFINED THE 99TH PERCENTILE OF cTnI DISTRIBUTION IN A REFERENCE POPULATION, HAS BEEN CONFIRMED THE DECISION THRESHOLD FOR MD DIAGNOSIS. Performed By: #### C MP, CMADM, BNP #### [facility] [address] [place] [address] Dr. Briana Dillard HSTROP 5.4 pg/mL Normal 4.0-51.3 [facility] Comment on above: Result Comment: CUT- OFF POINTS HAVE BEEN ESTABLISHED BASED ON THE FOURTH UNIVERSAL DEFINITIONS OF MYOCARDIAL INFARCTION. THE UPPER REFERENCE LIMIT (URL) OF TROPONIN, DEFINED THE 99TH PERCENTILE OF cTnI DISTRIBUTION IN A REFERENCE POPULATION, HAS BEEN CONFIRMED THE DECISION THRESHOLD FOR MD DIAGNOSIS. Performed By: #### C MP, CMADM, BNP #### [facility] [address] [place] [address] Dr. Briana Dillard HSTROP 5.6 pg/mL Normal 4.0-51.3 [facility] Comment on above: Result Comment: CUT- OFF POINTS HAVE BEEN ESTABLISHED BASED ON THE FOURTH UNIVERSAL DEFINITIONS OF MYOCARDIAL INFARCTION. THE UPPER REFERENCE LIMIT (URL) OF TROPONIN, DEFINED THE 99TH PERCENTILE OF cTnI DISTRIBUTION IN A REFERENCE POPULATION, HAS BEEN CONFIRMED THE DECISION THRESHOLD FOR MD DIAGNOSIS. Performed By: #### C MP, CMADM, BNP #### [facility] [address] [place] [address] Dr. Briana Dillard XR CHEST 1 Von [...] NADJA KEMP Date: 2021-11-28 12:46 Normal [facility] Tobacco Screening.on 022 Adult depression screening assessment Yes [facility] [facility] [address] DO Work Phone: Tobacco use status [facility] [facility] Work Phone: Tobacco Screening. Yes -[facility] [facility] 250 DO Work Phone: Tobacco Screening. 1-Several days [facility] [facility] 250 DO Work Phone: Tobacco Screening. 0-Not at all [facility] Work Phone: Tobacco Screening. Not difficult at all [facility] [facility] 250 DO Work Phone: Echocardiogramon 05-20-[address], [place] [address] TRANSTHORACIC ECHOCARDIOGRAM REPORT Patient Name: VIDHYA IBARRA Reading Physician: [id number] Ruma Dawn MD Study Date: 05/20/2021 Referring [id number] SHASHI COTTRELL Physician: MRN/PID: [id number] PCP: Accession/Order#: [id number] Department [facility] Location: Date of : 1955 Fellow: Gender: F Nurse: Admit Date: Wafer Fab Operator: Clarisse Sumner RDCS, T Height: 160.02 cm CC Report to: Weight: 89.36 kg Study Type: Echocardiogram BSA: 1.92 m2 Blood Pressure: 166 /94 mmHg Diagnosis/ICD: I51.7-Cardiomegaly; R06.00-Dyspnea, unspecified Indication: Obesity, Tobacco Abuse Procedure/CPT: Echo Complete w Full [id number] Study Detail: The following Echo studies were [...] 0.9 m/s (0.6-0.9m/s) PV Max P.1 mmHg [id number] Ruma Dawn MD Electronically signed on 05/24/2021 at 5:25:[address] [facility] Tobacco Screening.on 022 Fall risk assessment a) No falls within the last year -[facility] [facility] 250 DO Work Phone: Tobacco use status [facility] a) Yes M -[facility] [facility] 250 DO Work Phone: Fall risk assessment a) No falls within the last year [facility] [facility] 250 DO Work Phone: Tobacco use status [facility] a) Yes M [facility] [facility] 250 DO Work Phone: Tobacco Screening. Yes [facility] [facility] 250 DO Work Phone: Bld Gas Venon 12-02-2019 Allens Test N/A [facility] Comment on above: Result Comment: [facility] Department of Pulmonary Medicine [address] [place] [address] Performed By: #### 1 [id number] #### [facility] [address] [place] [address] Called By: KATHY OCHOA [facility] Comment on above: Performed By: #### 1 [id number] #### [facility] [address] [place] [address] Called To: DR. CORINNE COFFMAN [facility] Comment on above: Performed By: #### 1 [id number] #### [facility] [address] [place] [address] Drawn by [employer] [facility] Comment on above: Performed By: #### 1 [id number] #### [facility] [address] [place] [address] Dt/Tm Notified 17:42:00 F [facility] Comment on above: Performed By: #### 1 [id number] #### [facility] [address] [place] [address] pCO2 Guillaume 36.1 mmHg Low 38.0-50.0 [facility] Comment on above: Performed By: #### 1 [id number] #### [facility] [address] [place] [address] pH (BldV) 7.392 [pH] Normal 7.320-7.430 [facility] Comment on above: Performed By: #### 1 [id number] #### [facility] [address] [place] [address] Sample Site OTHER [facility] Comment on above: Performed By: #### 1 [id number] #### [facility] [address] [place] [address] Sample Type Venous [facility] Comment on above: Performed By: #### 1 [id number] #### [facility] [address] [place] [address] Physician Orderon 12-02-2019 Physician Order [id number]:127 Normal [facility] Vital Signs Date Time Vital Sign Value Performing Clinician Facility 06-24-2023 10:07-0500 Body height 160.02 cm MD Shaikh Mchugh Work Phone: [facility] 06-24-2023 10:07-0500 Body mass index (BMI) [Ratio] 34.2 kg/m2 MD Shaikh Mchugh Work Phone: [facility] 06-24-2023 10:07-0500 Body temperature 97.2 [degF] MD Shaikh Mchugh Work Phone: [facility] 06-24-2023 10:07-0500 Body weight 87.54 kg MD Shaikh Mhcugh Work Phone: [facility] 06-24-2023 10:07-0500 Diastolic blood pressure 96 mm[Hg] MD Shaikh Mchugh Work Phone: [facility] 06-24-2023 10:07-0500 Heart rate 78 /min MD Shaikh Mchugh Work Phone: [facility] 06-24-2023 10:07-0500 Respiratory rate 16 /min MD Shaikh Mchugh Work Phone: [facility] 06-24-2023 10:07-0500 SaO2% (BldA) [Mass fraction] 95 % MD Shaikh Mchugh Work Phone: [facility] 06-24-2023 10:07-0500 Systolic blood pressure 160 mm[Hg] MD Shaikh Mchugh Work Phone: [facility] 03-24-2023 13:06-0500 Body temperature 97.8 [degF] MD Shaikh Mchugh Work Phone: [facility] 03-24-2023 13:06-0500 Body weight 86.63 kg MD Shaikh Mchugh Work Phone: [facility] 03-24-2023 13:06-0500 Diastolic blood pressure 67 mm[Hg] MD Shaikh Mchugh Work Phone: [facility] 03-24-2023 13:06-0500 Heart rate 68 /min MD Shaikh Mchugh Work Phone: [facility] 03-24-2023 13:06-0500 Respiratory rate 16 /min MD Shaikh Mchugh Work Phone: [facility] 03-24-2023 13:06-0500 SaO2% (BldA) [Mass fraction] 98 % MD Shaikh Mchugh Work Phone: [facility] 03-24-2023 13:06-0500 Systolic blood pressure 130 mm[Hg] MD Shaikh Mchugh Work Phone: [facility] 03-24-2023 12:53-0500 Body height 160.02 cm MD Shaikh Mchugh Work Phone: [facility] 03-11-2023 09:20-0500 Body height 162.56 cm Alta Schmid Other [employer] Other 03-11-2023 09:20-0500 Body mass index (BMI) [Ratio] 32.78 kg/m2 Alta Sharmaine Other [employer] Other 03-11-2023 09:20-0500 Body temperature 96.3 [degF] Alta Sharmaine Other [employer] Other 03-11-2023 09:20-0500 Body weight 86.64 kg Alta Sharmaine Other [employer] Other 03-11-2023 09:20-0500 Diastolic blood pressure 77 mm[Hg] Alta Sharmaine Other [employer] Other 03-11-2023 09:20-0500 Respiratory rate 18 /min Alta Sharmaine Other [employer] Other 03-11-2023 09:20-0500 SaO2% (BldA) [Mass fraction] 95 % Alta Sharmaine Other [employer] Other 03-11-2023 09:20-0500 Systolic blood pressure 139 mm[Hg] Alta Sharmaine Other [employer] Other 12-08-2022 08:41-0400 Body height 160.02 cm Shaikh Jeison [facility] Phone: [facility] [facility] DO Work Phone: 12-08-2022 08:41-0400 Body mass index (BMI) [Ratio] 32.95 kg/m2 Shaikh Jeison Work Phone: [facility] 250 DO Work Phone: 12-08-2022 08:41-0400 Body surface area Derived from formula 1.88 m2 Dial Fawwad Work Phone: [facility] 250 DO Work Phone: 12-08-2022 08:41-0400 Body weight 84.37 kg Dial Fawwad Work Phone: [facility] 250 DO Work Phone: 12-08-2022 08:41-0400 Diastolic blood pressure 60 mm[Hg] Dial Fawwad Work Phone: [facility] 250 DO Work Phone: 12-08-2022 08:41-0400 Heart rate 66 /min Dial Yaimawwad Work Phone: [facility] 250 DO Work Phone: 12-08-2022 08:41-0400 Systolic blood pressure 108 mm[Hg] Dial Fawwad Work Phone: [facility] 250 DO Work Phone: 07-01-2021 13:12-0500 Diastolic blood pressure 88 mm[Hg] Dial Fawwad Work Phone: [facility] 250 DO Work Phone: 07-01-2021 13:12-0500 Systolic blood pressure 138 mm[Hg] Dial Fawwad Work Phone: [facility] 250 DO Work Phone: 07-01-2021 09:20-0500 Diastolic blood pressure 100 mm[Hg] Dial Fawwad Work Phone: [facility] 250 DO Work Phone: 07-01-2021 09:20-0500 Systolic blood pressure 148 mm[Hg] Dial Fawwad Work Phone: [facility] 250 DO Work Phone: 07-01-2021 09:01-0500 Diastolic blood pressure 98 mm[Hg] Shaikh Louisd Work Phone: [facility] 250 DO Work Phone: 07-01-2021 09:01-0500 Systolic blood pressure 168 mm[Hg] Shaikh Louisd Work Phone: [facility] 250 DO Work Phone: 07-01-2021 08:51-0500 Body height 160.02 cm Shaikh Louisd Work Phone: [facility] 250 DO Work Phone: 07-01-2021 08:51-0500 Body mass index (BMI) [Ratio] 33.83 kg/m2 Shaikh Louisd Work Phone: [facility] 250 DO Work Phone: 07-01-2021 08:51-0500 Body surface area Derived from formula 1.9 m2 Shaikh Louisd Work Phone: [facility] 250 DO Work Phone: 07-01-2021 08:51-0500 Body weight 86.64 kg Shaikh Louisd Work Phone: [facility] 250 DO Work Phone: 07-01-2021 08:51-0500 Diastolic blood pressure 104 mm[Hg] Shaikh Brightwad Work Phone: [facility] 250 DO Work Phone: 07-01-2021 08:51-0500 Heart rate 87 /min Shaikh Louisd Work Phone: [facility] 250 DO Work Phone: 07-01-2021 08:51-0500 Systolic blood pressure 169 mm[Hg] Dial Fawwad Work Phone: [facility] 250 DO Work Phone: 07-01-2021 08:51-0500 6 1 Dial Fawwad Work Phone: [facility] 250 DO Work Phone: Comment on above: PHQ-9 TS 05-24-2021 10:00-0500 Body height 162.56 cm Juan Gonzalez Other [employer] Other 05-24-2021 10:00-0500 Body mass index (BMI) [Ratio] 32.44 kg/m2 Juan Gonzalez Other [employer] Other 05-24-2021 10:00-0500 Body weight 85.73 kg Juan Gonzalez Other [employer] Other 05-20-2021 10:45-0500 60 1 Dial Fawwad Work Phone: [facility] [address] [place] Work Phone: Comment on above: [id number] 05-13-2021 11:59-0500 Diastolic blood pressure 104 mm[Hg] Dial Fawwad Work Phone: [facility] 250 DO Work Phone: 05-13-2021 11:59-0500 Systolic blood pressure 162 mm[Hg] Dial Fawwad Work Phone: [facility] 250 DO Work Phone: 05-13-2021 11:13-0500 Diastolic blood pressure 100 mm[Hg] Dial Fawwad Work Phone: [facility] 250 DO Work Phone: 05-13-2021 11:13-0500 Systolic blood pressure 170 mm[Hg] Shaikh Brightwad Work Phone: [facility] 250 DO Work Phone: 05-13-2021 11:12-0500 Body height 160.02 cm Shaikh Louisd Work Phone: [facility] 250 DO Work Phone: 05-13-2021 11:12-0500 Body mass index (BMI) [Ratio] 34.9 kg/m2 Shaikh Brightwad Work Phone: [facility] 250 DO Work Phone: 05-13-2021 11:12-0500 Body surface area Derived from formula 1.92 m2 Shaikh Brightwad Work Phone: [facility] 250 DO Work Phone: 05-13-2021 11:12-0500 Body weight 89.36 kg Shaikh Louisd Work Phone: [facility] 250 DO Work Phone: 05-13-2021 11:12-0500 Diastolic blood pressure 102 mm[Hg] Shaikh Brightwad Work Phone: [facility] 250 DO Work Phone: 05-13-2021 11:12-0500 Heart rate 88 /min Shaikh Brightwad Work Phone: [facility] 250 DO Work Phone: 05-13-2021 11:12-0500 Systolic blood pressure 172 mm[Hg] Shaikh Yaimawwad Work Phone: [facility] 250 DO Work Phone: 05-13-2021 11:07-0500 Body height 160.02 cm Shaikh Jeison Work Phone: [facility] 250 DO Work Phone: 05-13-2021 11:07-0500 Body mass index (BMI) [Ratio] 34.9 kg/m2 Shaikh Jeison Work Phone: [facility] 250 DO Work Phone: 05-13-2021 11:07-0500 Body surface area Derived from formula 1.92 m2 Shaikh Jeison Work Phone: [facility] 250 DO Work Phone: 05-13-2021 11:07-0500 Body weight 89.36 kg Shaikh Jeison Work Phone: [facility] 250 DO Work Phone: 05-13-2021 11:07-0500 Heart rate 88 /min Shaikh Jeison Work Phone: [facility] 250 DO Work Phone: 04-09-2021 11:40-0500 Body height 162.56 cm Juan Gonzalez Other [employer] Other 04-09-2021 11:40-0500 Body mass index (BMI) [Ratio] 32.44 kg/m2 Juan Gonzalez Other [employer] Other 04-09-2021 11:40-0500 Body weight 85.73 kg Juan Gonzalez Other [employer] Other 04-09-2021 11:40-0500 Diastolic blood pressure 72 mm[Hg] Juan Gonzalez Other [employer] Other 04-09-2021 11:40-0500 Systolic blood pressure 124 mm[Hg] Juan Gonzalez Other [facility] [employer] Other Encounters Encounter Date Encounter Type Care Provider Facility Start: 06-24-2023 End: 06-24-2023 ambulatory MD Shaikh Mchugh Work Phone: [facility] Work Phone: Start: 06-24-2023 End: 06-24-2023 Patient encounter procedure MD Shaikh Mchugh Work Phone: [facility] [place] [facility] Work Phone: Start: 06-24-2023 Registered Recurring MD Shaikh Mchugh Work Phone: [facility] Work Phone: Start: 05-11-2023 End: 05-12-2023 ambulatory Radha Dunaway MD Facility:[facility] Start: 04-13-2023 Telephone encounter Neena Kam[facility] Start: 04-13-2023 End: 04-13-2023 ambulatory SHAIKH JEISON [facility] Other Start: 04-06-2023 End: 04-07-2023 ambulatory Radha Dunaway MD Facility:[facility] Start: 03-24-2023 End: 03-24-2023 ambulatory MD Shaikh Mchugh Work Phone: [facility] Work Phone: Start: 03-24-2023 End: 03-24-2023 Registered Recurring MD Shaikh Mchugh Work Phone: [facility] Work Phone: Start: 03-11-2023 End: 03-11-2023 ambulatory Alta Schmid Other [facility] Other Start: 03-11-2023 Office outpatient vi sit 25 minutes Alta Sharmaine [facility] [place] Start: 03-04-2023 End: 03-04-2023 ambulatory Alta Sharmaine Facility:[facility] Start: 03-04-2023 End: 03-04-2023 ambulatory MD Shaikh Mchugh Work Phone: [facility] Work Phone: Start: 03-04-2023 End: 03-04-2023 Patient encounter procedure MD Shaikh Mchugh Work Phone: [facility] [place] Work Phone: Start: 12-08-2022 Office outpatient vi sit 15 minutes Shaikh Jeison Work Phone: [facility] 250 DO Work Phone: Start: 12-08-2022 Patient encounter procedure Shaikh Jeison Work Phone: [facility] 250 DO Work Phone: Start: 12-08-[address] [facility] Start: 11-10-2022 End: 11-11-2022 ambulatory Radha Dunaway MD Facility: [facility] Start: 10-16-2022 ambulatory SHAIKH Gurjit MCHUGH Facilit y:[facility] Start: 09-18-2022 End: 09-18-2022 ambulatory Alta Sharmaine Facility:[facility] Start: 07-17-2022 End: 07-18-2022 ambulatory SHAIKH Gurjit MCHUGH Facility:[facility] Start: 06-29-2022 Rx Renewal Shaikh Jeison Work Phone: [facility] 250 DO Work Phone: Start: 06-28-2022 End: 06-29-2022 ambulatory DIAL H FAWWAD Facility:[facility] Start: 06-12-[address] ELIGIO HODGE . Faci lity:[facility] Start: 05-27-2022 End: 05-27-[address] ELIGIO HODGE . Facility:[facility] Start: 05-13-2022 End: 05-13-[address] ELIGIO HODGE . Facility:[facility] Start: 04-10-2022 End: 04-11-[address] ELIGIO HODGE . Facility:[facility] Start: 02-17-2022 End: 02-18-2022 ambulatory H FAIraWAD Facility:[facility] Start: 01-10-[address] Shashi Cottrell II Facility: Start: 01-09-2022 End: 01-10-2022 ambulatory DIAL H FAWWAD Facility: Start: 11-28-2021 End: 11-29-2021 ambulatory DIAL H FAWWAD Facility:[facility] Start: 10-17-2021 End: 10-18-2021 ambulatory EVA ROSEN . Facility: Start: 07-01-2021 AUDIT Shaikh Yaimawwad Work Phone: [facility] 250 DO Work Phone: Start: 05-28-2021 FUV, Provider: Shashi Cottrell, Status: Pen, Time: 10:50 AM Dial Yaimawwad Work Phone: [facility] 250 DO Work Phone: Start: 05-26-2021 Chart Update Dial Fawwad Work Phone: [facility] 250 DO Work Phone: Start: 05-24-2021 End: 05-24-2021 ambulatory Juan Gonzalez Other [facility] [facility] Other Start: 05-24-2021 Office outpatient vi sit 15 minutes Juan Gonzalez [facility] Start: 05-20-2021 Patient encounter procedure Dial Fawwad Work Phone: [facility] [place] Work Phone: Start: 05-13-2021 Office consultation new/estab patient 60 min Shaikh Jeison Work Phone: [facility] 250 DO Work Phone: Start: 04-09-2021 End: 04-09-2021 ambulatory Juan Gonzalez Other [facility] [facility] Other Start: 04-09-2021 Office outpatient ne w 45 minutes Juan Gonzalez [facility] Procedures Date Procedure Procedure Detail Performing Clinician Start: 03-04-2023 Urine culture MD Shaikh Mchugh Work Phone: Start: 05-20-2021 Echocardiography Shaikh Jeison Work Phone: Cardiac catheterization Wayne Mchugh Work Phone: Cholecystectomy Shaikh Louis johnson Work Phone: Dilation and curettage Shaik gurjit Mchugh Work Phone: Total colonoscopy Shaikh rBight westbrook Work Phone: Plan of Treatment Date Care Activity Detail Author Start: 06-24-2023 Patient referral [facility] Work Phone: Start: 03-04-2023 Bacteria identified in Urine by Culture [facility] Start: 12-12-2022 FUV, Provider: Shashi Cottrell, Status: Pen, Time: 3:20 PM FUV, Provider: Shashi Cottrell, Status: Pen, Time: 3:20 PM [facility] 250 DO Work Phone: Start: 01-10-2022 FUV, Provider: Shashi Cottrell, Status: Pen, Time: 2:00 PM FUV, Provider: Shashi Cottrell, Status: Pen, Time: 2:00 PM [facility] 250 DO Work Phone: Start: 07-01-2021 FUV, Provider: Shashi Cottrell, Status: Pen, Time: 8:40 AM FUV, Provider: Shashi Cottrell, Status: Pen, Time: 8:[address] [facility] [place] Work Phone: Start: 05-28-2021 FUV, Provider: Shashi Cottrell, Status: Pen, Time: 10:50 AM FUV, Provider: Shashi Cottrell, Status: Pen, Time: 10:[address] [facility] 250 DO Work Phone: Start: 05-20-2021 ECHO, Provider: JACEY [facility]TR[facility] 01,[id number], Status: Pen, Time: 10:45 AM ECHO, Provider: JACEY [facility] 01,[id number], Status: Pen, Time: 10:[address] [facility] 250 DO Work Phone: MG Breast - bilatera l Screening [facility] Patient referral [facility] Work Phone: [facility] Immunizations Immunization Date Immunization Notes Care Provider Yaima saul 10-20-2020 pneumococcal polysaccharide vaccine, 23 valent Shaikh Jeison Work Phone: [facility] DO Work Phone: 08-23-2020 COVID-19 Vaccine Mod jasson - Documentation Purposes Only Juan Gonzalez Other [facility] 05-04-2020 pneumococcal conjuga te vaccine, 13 valent Dial Yaimawpietro Work Phone: [facility] Work Phone: Comment on above: Series: 02-03-2020 Influenza, injectabl e, Madin [place] Canine Kidney, preservative free, quadrivalent Shaikh Jeison Work Phone: [facility] 250 DO Work Phone: 02-09-2019 Vaxneuvance 0.5 ML Intramuscular Suspension Prefilled Syringe [facility]ikh Jeison [facility] Work Phone: 04-05-2017 influenza, injectabl e, quadrivalent, preservative free Shaikh Jeison [facility] Work Phone: Payers Date Payer Category Payer Self-pay [id number] 2022 Medicaid [id number] 2022 Private Health Insurance 1959 Medicare [id number] 2.16. [id number] 1955 Unknown [id number] 2.16.84 0.1.957893.3.579.2.593 1955 Unknown [id number] 2.16.84 0.1.385349.3.579.2.593 1955 Unknown [id number] 2.16.84 0.1.598456.3.579.2.593 1955 Unknown [id number] 2.16.84 0.1.270645.3.579.2.593 1955 Unknown [id number] 2.16.84 0.1.052383.3.579.2.593 1955 Unknown [id number] 2.16.84 0.1.281645.3.579.2.593 1955 Unknown [id number] 2.16.84 0.1.881367.3.579.2.593 1955 Unknown [id number] 2.16.84 0.1.774721.3.579.2.593 1955 Unknown [id number] 2.16.84 0.1.642560.3.579.2.593 1955 Unknown [id number] 2.16.84 0.1.962160.3.579.2.593 1955 Unknown [id number] 2.16.84 0.1.111417.3.579.2.593 1955 Unknown [id number] 2.16.84 0.1.201689.3.579.2.593 1955 Unknown [id number] 2.16. 840.1.224966.3.579.2.356 1955 Unknown [id number] 2.16. 840.1.864895.3.579.2.356 1955 Unknown [id number] 2.16.840 .1.856253.3.579.2.1259 1955 Unknown [id number] 2.16. 840.1.336655.3.579.2.196 1955 Unknown [id number] 2.16. 840.1.334615.3.579.2.196 1955 Unknown [id number] 2.16. 840.1.626272.3.579.2.196 Medicare [id number] 2.1 6.840.1.190006.19 Unknown Unknown [id number] 2.16.8 40.1.639570.3.579.2.531 Unknown [id number] 2.16.8 40.1.247934.3.579.2.531 Unknown [id number] 2.16.8 40.1.244072.3.579.2.531 Social History Date Type Detail Facility Daily caffeine consumption Daily caffeine consumption -[facility] 250 DO Work Phone: Comment on above: 2-3 cups of coffee d aily.; 1/2 pack daily.; Sex Assigned At Sex Assigned At [facility] [employer] Other Start: 01-24-2021 End: 06-24-2023 Tobacco smoking status NHIS Smoker (finding) [facility] Start: 1955 Sex Assigned At Female F [facility] Functional Status Date Assessment Result Facility 07-01-2021 PHQ-9 [id number] Mild (5-9) [facility] 250 DO Work Phone: Clinical Notes [...] I have prescribed oral magnesium once daily. [employer] Other 03-16-2023 NotePAIN MANAGEMENT CONSULTATION CONSULTATION DATE: [...] in three months' time unless otherwise indicated.[id number] NoteCONSULTATION CONSULTATION DATE: 04/10/2022 HISTORY OF PRESENT [...] weeks ago, and she completed those in [place]. She is continuing her home exercises as [...] thereafter. Patient does agree with this plan.[id number] NoteCONSULTATION CONSULTATION DATE: 01/09/2022 HISTORY OF PRESENT [...] weeks. Patient prefers to do this in [place]. She will be followed up in the office in three months' time and was encouraged to take a multivitamin daily. Patient agrees with this plan of care. [facility] [id number] NoteCONSULTATION CONSULTATION DATE: 10/17/2021 HISTORY OF PRESENT [...] in three months' time unless otherwise indicated. [facility] Signed and Approved by: EVA ROSEN . 10/30/2021 16:23:00[facility]06-16-2022 NoteCONSULTATION PROCEDURE DATE:10/17/2021 PREOPERATIVE DIAGNOSIS: [...] will be followed up in the office. [facility] Signed and Approved by: EVA ROSEN . 10/30/2021 16:23:00[facility]01-21-2022 Evaluation note* Encounter Date Diagnosis [...] at this point no intervention is needed. [employer] Other 12-07-2021 Evaluation note* Encounter Date Diagnosis [...] - M50.123) Apr, Cardiomegaly (ICD-10 - I51.7) [employer] Other 01-15-2021 History of Present illness Narrative* [...] she will follow-up after testing is completed [facility] Work Phone: 1(330) 701-769401-10-2021 History of Present illness Narrative* Patient is [...] she will follow-up after testing is completed [facility] 250 DO Work Phone: 1(298) 877-337908-01-2020 History general Narrative - Reported* Type Description Date Medical History TYPE II DIABETES Medical History HYPERTENSION Medical History ENLARGE HEART Surgical History CHOLECYSTECTOMY Hospitalization History PNEUMONIA 12/2019 [employer] Other chief complaint Narrative - ReportedVIDHYA IBARRA is being seen for a consultation for cardiomegaly.-[facility] 250 DO Work Phone: Chiez complaint Narrative - ReportedVIDHYA IBARRA is being seen for a consultation for cardiomegaly.[facility] Work Phone: Consult note Author Yakelin Rebeka [facility] March 25, 2023 10:10am Note Date/Time March 24, 2023 1:49pm [facility] at [address] [address] Hem/Onc Consult Note - OP Signed Patient: Vidhya Ibarra MR#: [id number] : 1955 Acct:[id number] Age/Sex: 67 / F Type: REG RCR [...] any worse than it does when touched. [facility] - Medical History Medical History: [...] for coordination of care (as documented) and [id number] counseling of patient and/or family. Dictated By: Yakelin Staley APRN DD/ [id number] Signed By: <Electronically signed by JOSE Staley> 03/25/23 1010 [facility] Work Phone: Evaluation noteNo assessment information available [facility] Work Phone: Evaluation noteNo InformationNort [employer] Other Evaluation note* Diagnosis Onset Date Resolution Status Leukocytosis acute Breast nodule acute Leukocytosis acute Recurrent boils acute Yeast infection acute [facility] Work Phone: History of Present illness Narrative* Patient returns [...] weight loss and more importantly smoking cessation. [facility] 250 DO Work Phone: Hospital Discharge instructionsAmbulatory Orders* Referral to General Surgery Time Frame: 06/24/23, Location: None Selected [facility] Work Phone: Progress note Author Rebeca Ashraf [facility] June 24, 2023 10:45am Note Date/Time June 24, 2023 10:07am [facility] [place] [address] Cancer Center Note Signed Patient: Vidhya Ibarra MR#: [id number] : 1955 Acct:[id number] Age/Sex: 67 / F Type: REG AMB Copies to: Shaikh Jeison MD~ Assessment & Plan A/P (1) Leukocytosis: (2) Yeast infection: (3) Breast nodule: (4) Recurrent boils: Plan leukocytosis no differential in records to evaluate [...] of her mammogram for full breast evaluation. Her CBC with therefore revealed neutrophilia with increased WBCs 14,300 but better than what they were in March 2023 as they were 16,700. For now, will plan mammogram, antibiotic therapy, and will get a cbc with differential for initial evaluation. Her increased wbc count likely was related to her breast infection and currently likely related to her recurrent boil infection in the genitalia area. Plan: Obtain bilateral screening mammogram. Start her on Mycostatin powder for the yeast infection under her breast. Start her on doxycycline 100 mg twice daily for 14 days for her recurrent bladder infection and referred her to general surgery for further evaluation andincision and drainage if needed. Repeat CBC with differential in 6 weeks and see her then. Orders: Orders MM screening mammo BI w/CAD Today D72.829 - Elevated white blood cell count, unspecified Complete Blood Count Auto Diff 6 Weeks D72.829 - Elevated white blood cell count, unspecified Referrals Referral to General Surgery D72.829 - Elevated white blood cell count, unspecified Medications: New nystatin apply to dry skin under breasts 2 times daily 1 applic topical BID 30 grams 0RF B37.9 - Candidiasis, unspecified doxycycline hyclate take 2 tablets daily for 14 days 100 mg PO BID 28 tabs 0RF Discontinued cephalexin Discontinued Reason: Patient no longer taking 500 mg PO TID 5 days 15 caps 0RF Patient Instructions: return in 6 weeks with CBC referral to general surgery for genital boil doxycycline 100mg 2x daily for 14 days nystatin powder under breasts 2x daily to dry skin bilateral screening mammogram CHEMO PLAN No Active Chemotherapy History of Present Illness HPI Reason for Consultation: leukocytosis HPI: Vidhya is a 67 year old [...] any worse than it does when touched. 06/24/23; Patient here for 3 months follow-up for her leukocytosis. She did not have the mammogram done yet since the last visit March 2023. She states she took the antibiotic prescribed by Mariah in March for her breast infection and stopped draining. She has however bilateral breast yeast infection under each breast and also have recurrent boils in the groin area for several months she has not seen any surgeon or on every 4. Currently she has some draining cyst or boil inthe left groin and left genitalia area. She denies any fevers and denies any night sweats and denies any enlarged lymph nodes anywhere. However she is a chronic smoker as well. Intake Vitals/Pain Assessment 06/24/23 10:07 Height 5 ft 3 in Weight 87.543 kg BMI 34.2 Body Fat % 51.10 BP 160/96 H Blood Pressure Location Lt brachial Position Sitting Temp 97.2 F L Temp Source Temporal Pulse 78 Pulse Source NIBP Respiration 16 Pulse Oximetry (%) 95 Oxygen Delivery Method room air Are you having pain? Yes Pain Location chronic back sees doctor Intake Visit Reasons: leukocytosis Allergies prednisone Allergy (Unknown, Verified 06/24/23 10:13) Hives - Last Reconciled 06/24/23 by Kandy Muir atorvastatin 40 mg PO DAILY bumetanide 0.5 mg PO DAILY gabapentin 600 mg PO TID glipizide 10 mg PO BID insulin NPH and regular human 100 unit/mL (70-30) (Novolin 70-30 FlexPen U-100 Insulin) 20 units subcut BID losartan-hydrochlorothiazide 100-25 mg 1 tab PO DAILY metoprolol tartrate 50 mg PO BID oxycodone-acetaminophen 5-325 mg 1 tab PO BID PRN paroxetine HCl 20 mg PO DAILY pramipexole 0.5 mg PO DAILY trazodone 100 mg PO QHS Gastrointestinal Is the patient taking opioids for pain control?: Yes Bowel Pattern: Regular Bowel Movement Aid(s): Laxative Falls Fall Precaution Measures Taken: Patient in chair Nurse's Note: Patient is here today for a 3 month follow up visit for Leukocytosis and go overlabs PMFSH Medical History Medical History (Updated 06/24/23 @ 10:42 by Rebeca Ashraf MD) Recurrent boils Breast nodule Yeast infection Leukocytosis CKD (chronic kidney disease) Smoker COPD (chronic obstructive pulmonary disease) Enlarged heart Depression Chronic pain Neuropathy Hypertension Diabetes Surgical History Surgical History H/O dilation and curettage Hx of cholecystectomy Family History Family History Father Mesothelioma Mother Hypertension Heart disease Brother Family history of mental disorder Legacy FamHx Relation: Brother(s); Legacy FamHx Problem: Diagnosed with Mental Illness Legacy FamHx Relation: Brother(s) Father Cancer Legacy FamHx Problem: Diagnosed with Cancer Mother Diabetes Heart disease Hypertension Social History Social History (Updated 06/24/23 @ 10:16 by Kandy Muir) Smoking status: Current every day smoker Nicotine containing products detail: Do you use smokeless tobacco? no Within the past year, how often did you have a drink containing alcohol: never AUDIT-C Alcohol total score: 0 AUDIT-C Alcohol score interpretation: A score less than 3 is consistent with normal alcohol consumption. In the past 12 months, have you used illegal drugs or prescription drugs for non-medical reasons?: No Review of Systems ROS Details: All systems reviewed & no additional complaints except as documented Physical Exam EXAM ECOG PS 1 CONSTITUTIONAL: The patient is in no acute distress. HEAD / FACE: Normocephalic. EYES: Pupils are equal and reactive to light. NECK / THYROID: Neck is supple. Thyroid is symmetrical, without thyromegaly, masses or palpable nodules. LYMPHATIC: No palpable cervical, supraclavicular, or inguinal adenopathy. RESPIRATORY: Lungs clear to auscultation and percussion. No wheezing, rales, rhonchi or rubs. Normal effort. Breast: She has yeast infection under each breast bilaterally with erythematous areas with demarcation as well. Infected cyst with dried and no drainage currently and it looks like she has fibrotic cyst in the right breast at about 7o'clock position. CARDIOVASCULAR: Regular rate and rhythm. No murmurs, gallops, or rubs. ABDOMEN: Bowel sounds normoactive. Soft, nontender, non-distended. No splenomegaly. No palpable masses. Skin: She has that yeast infection under each breast as stated above, dried fibrotic cyst in the right breast at 7 o'clock position, as well as she stated but not examined recurrent boils in her genitalia area. EXTREMITIES: No edema. NEUROLOGICAL: Alert and oriented. Cranial nerves intact. No gross motor or sensory deficits. PSYCHIATRIC: No anxiety or evidence of depression. Results LAB RESULTS Laboratory Tests 06/22/23 09:46 Neut % (Auto) 74.3 Lymph % (Auto) 18.0 Mccone % (Auto) 5.2 Eos % (Auto) 1.7 Baso % (Auto) 0.8 Nucleat RBC Rel Count 0.1 Neut # (Auto) 10.6 H Lymph # (Auto) 2.6 Mccone # (Auto) 0.7 Eos # (Auto) 0.2 Baso # (Auto) 0.1 Corrected WBC 14.3 X10E3/uL (3.8-11.6) H 06/22/23 09:46 Hgb 14.5 g/dL (11.8-15.4) 06/22/23 09:46 Hct 42.7 % (34.0-46.4) 06/22/23 09:46 MCV 89.4 fl (80-100) 06/22/23 09:46 RDW 15.0 % (11.9-15.3) 06/22/23 09:46 Plt Count 262 x10E3/uL (150-450) 06/22/23 09:46 Dictated By: Rebeca Ashraf MD DD/ [id number] Signed By: <Electronically signed by Rebeca Ashraf MD> 06/24/23 1045 [facility] Work Phone: Summary Purpose Family History No [...] Not Specified Hypertension Unknown Heart disease Unknown Relationship Condition Age at Onset Recorded Date/T norris father Mesothelioma Unknown Not Specified Hypertension Unknown Heart disease Unknown brother Family history of mental disorder Unknown Unknown father Malignant neoplasm Unknown Not Specified Diabetes mellitus Unknown Hypertension Unknown Advance Directives No Advanced Directives Records Found Advance Directive Response Recorded Date/ Time Advance Directives No November 23 12:44pm Advance Directive Response Recorded Date/ Time Advance Directives No November 23 11:44am Reason for Referral Reason *FU 04/23 Evaluate and Treat Diagnosis 1 Cardiomegaly (I51.7) Referral Organization [facility] Referring Provider First Name Juan Referring Provider Last Name Carlos Referring Provider Specialty Neurologica l Surgery Referred Organization [facility] Referred Provider Jason Johnson Referred Address [address] ,[place], [place],[address] Referred Provider Specialty Cardiac Surg nicholas Referral Priority Routine General Notes Neena Estevez 021 08:49:37 AM >Received today and waiting for office notes to be lockedNeena Estevez 04/16/2021 03:27:00 PM >[facility] office request us to fax the referral to them and they will review and call patient to schedule their appointment. Referral was fax Reason Evaluate and Treat Diagnosis 1 Cervical disc disord er at C5-C6 level with radiculopathy (M50.122) Referral Organization [facility] Referring Provider First Name Juan Referring [...] E11.22 I12.9 N25.81 K76.89 E89.0 E83.4 Leukocytosis Chief Complaint Leukocytosis 3 month follow up Leukocytosis Reason for Visit Leukocytosis Breast nodule Leukocytosis Recurrent boils Yeast infection Additional Source Comments INFORMATION SOURCE (unrecogn ized section and content) DATE CREATED AUTHOR 12/03/2019 [facility] DATE CREATED AUTHOR AUTHOR'S ORGANIZ ATION 05/26/2021 [facility] DATE CREATED AUTHOR AUTHOR'S ORGANIZ ATION [facility] DATE CREATED AUTHOR AUTHOR'S ORGANIZ ATION 12/08/2022 [facility] DATE CREATED AUTHOR AUTHOR'S ORGANIZ ATION 12/09/2022 [facility] DATE CREATED AUTHOR AUTHOR'S ORGANIZ ATION 04/14/2023 [facility] DATE CREATED AUTHOR AUTHOR'S ORGANIZ ATION 05/26/2023 [facility] DATE CREATED AUTHOR AUTHOR'S ORGANIZ ATION 07/01/2023 [facility] REASON FOR VISIT (unrecogniz ed section and content) Refer [facility] f/uCKD and HTNSmoking Cessation Referral Care Teams (unrecognized sec tion and content) Team Status: Active Member Role Status Dates Shaikh Jeison MD Primary Care Provider Active Team Status: Active Member Role Status Dates Shaikh Jeison MD Primary Care Provider Active Start: June 24, 2023 Yakelin Staley APRN Attending Provider Active Start: June Alta Schmid MD Referring Provider Active Start : June 24, 2023 Team Status: Inactive Member Role Status Dates Shaikh Jeison MD Primary Care Provider Active Start: June 24, 2023 End: June 24, 2023 Rebeca Ashraf MD Attending Provider Active Start: June 24, 2023 End: June 24, 2023 Team Status: Inactive Member Role Status Dates Shaikh Jeison MD Primary Care Provider Active Alta Schmid MD Attending Provider Active Team Status: Active Member Role Status Dates Shaikh Jeison MD Primary Care Provider Active Yakelin Staley APRN Attending Provider Acti aaron Schmid MD Referring Provider Active Goals (unrecognized [...] BE BASED ON THE PRIMARY CLINICAL RECORDS. [employer] provides no warranty or guarantee of the accuracy or completeness of information in this document.
== END 2023-07-02 08:35 | disposition home or self-care (01) ==
PROVIDERS: PCP Internal Medicine; Visit Provider Nurse Practitioner
DX: M47.816 Spondylosis without myelopathy or radiculopathy, lumbar region (principal); M62.838 Other muscle spasm; M48.062 Spinal stenosis, lumbar region with neurogenic claudication; M24.29 Disorder of ligament, other specified site; Z79.891 Long term (current) use of opiate analgesic; M51.06 Intervertebral disc disorders with myelopathy, lumbar region
CPT/HCPCS: G0463

== ENCOUNTER 2023-07-18 08:07 | Outpatient (OUT) | payer MEDICARE, SELFPAY ==
--- OUTSIDE RECORDS SUMMARY | 2023-07-17 09:18 | XMS_ITS | CCD ---
Author Name Unknown Address [id number] [place] [address] Organization [facility] Care Team Providers Care Pile Operator Name Role Phone JeisonShaikh Unavailable Unavailable Unavailable Juan Gonzalez Unavailable Unavailable Unavailable NAVEEN ., DR ELIGIO Burns Admitting Unavailable HODGE ., DR ELIGIO Burns Consulting Unavailable HODGE ., DR ELIGIO Burns Attending Unavailable [facility], [facility] Primary Care Unavailable JUAN ANTONIO LOMELI Consulting Unavailable HODGE ., DR ELIGIO Burns Admitting Unavailable [facility] Primary Care Unavailable ROSEN ., EVA Consulting Unavailable HODGE ., DR ELIGIO Burns Attending Unavailable HODGE ., DR ELIGIO Burns Admitting Unavailable [facility] Primary Care Unavailable ROSEN ., EVA Consulting Unavailable HODGE ., DR ELIGIO Burns Attending Unavailable [facility], [facility] Primary Care Unavailable LAKSHMIPATHY ., NARENDRANLYLE Admitting Catrina vailable LAKSHMIPATHY ., NARENDSHIRAATH Attending Catrina vailable HODGE ., DR ELIGIO Burns Admitting Unavailable [facility] Primary Care Unavailable ROSEN ., EVA Consulting Unavailable HODGE ., DR ELIGIO Burns Attending Unavailable [facility], [facility] Primary Care Unavailable ROSEN ., EVA Consulting Unavailable HODGE ., DR ELIGIO Burns Attending Unavailable HODGE ., DR ELIGIO Burns Admitting Unavailable ROSEN ., EVA Consulting Unavailable HODGE ., DR ELIGIO Burns Admitting Unavailable NEENA MACK Primary Care Unavailable HODGE ., DR ELIGIO Burns Attending Unavailable [facility], [facility] Primary Care Unavailable [facility], DIAL H Consulting Unavailable [facility]IAL [facility] [...] NAVEEN ., DR ELIGIO Burns Attending Unavailable NAVEEN ., DR ELIGIO Burns Admitting Unavailable HODGE ., DR ELIGIO Burns Admitting Unavailable [facility] Primary Care Unavailable HODGE ., DR ELIGIO Burns Consulting Unavailable NAVEEN ., DR ELIGIO Burns Attending Unavailable Los II, Dr. Shashi Salas Attending Unavailable Udayuinchepe II, Dr. Shashi Salas Referring Unavailable Udayuinchepe II, Dr. Shashi Salas Attending Unavailable MD Misael Mchughikh Primary Care Provider MD Alta Schmid Attending Provider Sharmaine, Alta Unavailable MD Misael Mchughikh Primary Care Provider MD Alta Schmid Attending Provider JOSE Staley Attending Provider MD Alta Schmid Referring Provider Neena Hi Unavailable MD Misael Mchughikh Primary Care Provider JOSE Staley Attending Provider MD Alta Schmid Referring Provider Sharmaine, Alta Admitting Unavailable Sharmaine, Alta Attending Unavailable [facility] Primary Care Unavailable Sharmaine, Alta Admitting Unavailable Sharmaine, Alta Attending Unavailable Shaikh Mchugh Primary Care Unavailable Yakelin Staley Attending Unavail able Alta Schmid Referring Unavailable Shaikh Mchugh Primary Care Unavailable Yakelin Staley Admitting Unavail able Giwadeitis , Andjustin Hawkins Attending Unavailable Giedraitis , Andrius Hawkins Attending Unavailable Gieditis , Radha Hawkins Attending Unavailable Gieditis , Andrius Hawkins Attending Unavailable EZRA MCKAY Attending Unavailable VILLA V, EZRA Attending Unavailable SHAIKH MCHUGH Referring Unavailable SHAIKH MCHUGH Attending Unavailable SHAIKH MCHUGH Attending Unavailable Allergies Allergy Classification Reported Allergen(s) Allergy Type Date of Onset Reaction(s) Facility (14 sources) predniSONE; Translations: [predniSONE] Drug Allergy 1 Hives, Unknown [facility] (2 sources) predniSONE Drug Allergy 5 [facility] Repository (1 source) predniSONE Drug Allergy 4 [facility] Repository Medications Current Medications Medication Drug [...] oral tablet (1 source) Tetracycline-class Drug Start: 06-24-2023 take 2 tablets by mouth once daily [...] 2023 2:48pm take 1 tablet by rafat th once daily glipiZIDE XL 10 MG Oral [...] 2023 2:48pm take 2 tablets by mo [facility] once daily Metoprolol Tartrate 50 MG Oral [...] 2023 2:48pm take 1 tablet by rafat th at bedtime traZODone HCl - 150 MG [...] 500 MG PO Three times daily 15 5 March 24, 2023 12:00am June 24, 2023 10:13am [...] 11-28-2021 Episodic Other aftercare (1 source) 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; 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] Onset: 12-04-2021 Episodic Other [...] Test Name Value Interpretation Reference Range Facility MM screening mammo BI w/CADo n 07-03-2023 MM screening mammo BI w/CAD [facility] Main [place] [address] [place] [address] Mammography Report Signed Patient: Vidhya Ibarra MR#: [id number] : 1955 Acct:[id number] Age/Sex: 67 / F ADM Date: 07/03/23 Loc: Room: Type: [facility] Attending Dr: Yakelin Staley MANAGER TAX Copies to: MD Yakelin Kahn APRN Mhd Yaser Al-Marrawi, MD Shaikh Fawwad, MD Ordering Provider: Rebeca Ashraf MD Date of Service: 07/03/23 MM/MM screening mammo BI w/CAD: D72.829 - Elevated white blood cell count, unspecified CLINICAL DATA: Screening for malignancy. SCREENING MAMMOGRAM - FULL FIELD DIGITAL WITH TOMOSYNTHESIS AND CAD COMPARISON:None available for direct comparison. Tomosynthesis craniocaudal and mediolateral oblique views of both breasts were obtained using low- dose digital technique. This examination was reviewed with the aid of CAD. FINDINGS: The breast tissue is composed of scattered fibroglandular densities. There are no dominant masses, typically malignant calcifications or architectural distortion. There has been no significant interval change. MM/MM screening mammo BI w/CAD IMPRESSION: NO MAMMOGRAPHIC EVIDENCE OF MALIGNANCY. ROUTINE FOLLOW-UP IS RECOMMENDED IN ONE YEAR. RESULT CODE: 1 Negative DENSITY CODE: 2 (approximately 25-50% glandular) FOLLOW UP: 1YR The false-negative rate of mammography is approximately 10-percent. Management of a palpable abnormality must be based on clinical grounds. Patient was entered into a reminder system with a target due date for the next mammogram. Impression dictated by: Stevan Daniels Jr., D.O.07/03/2023 3:30 PM Dictation Location: [facility] Transcribed By: [facility] 07/03/23 1530 Dictated By: Stevan Daniels Jr, DO 07/03/23 1529 Signed By: 07/03/23 1530 Normal [facility] Basophils Auto (Bld) [#/Vol] Ordered By: Yakelin Staley on 06-22-2023 Basophils (Bld) [#/Vol] 0.1 10*3/uL 0.0-0.2 [facility] Basophils/100 WBC Auto (Bld) Ordered By: Yakelin Staley on 06-22-2023 Basophils/100 WBC (Bld) 0.8 % . F [facility] Complete Blood Count Auto Di ffon 06-22-2023 Basophils (Bld) [#/Vol] 0.1 10*3/uL Normal 0.0-0.2 [facility] Comment on above: Result Comment: PERF ORMED BY: [place] [address] PATHOLOGIST LARD MAKER SHANTE LOMBARDI M.D. Performed By: #### C BCNO #### [address] Basophils/100 WBC (Bld) 0.8 % Normal . F [facility] Comment on above: Performed By: #### C BCNO #### [facility] [address] [place] [address] [place] Eosinophils (Bld) [#/Vol] 0.2 10*3/uL Normal 0.0-0.45 [facility] Comment on above: Performed By: #### C BCNO #### [facility] [address] [place] [address] [place] Eosinophils/100 WBC (Bld) 1.7 % Normal . [facility] Comment on above: Performed By: #### C BCNO #### [address] Erythrocyte distribution width (RBC) [Ratio] 15.0 % Normal 11.9-15.3 [facility] Comment on above: Performed By: #### C BCNO #### [facility] [address] Hematocrit (Bld) [Volume fraction] 42.7 % Normal 34.0-46.4 [facility] Comment on above: Performed By: #### C BCNO #### [facility] [address] Hemoglobin (Bld) [Mass/Vol] 14.5 g/dL Normal 11.8-15.4 [facility] Comment on above: Performed By: #### C BCNO #### [facility] [address] Lymphocytes (Bld) [#/Vol] 2.6 10*3/uL Normal 1.00-4.8 [facility] Comment on above: Performed By: #### C BCNO #### [address] Lymphocytes/100 WBC (Bld) 18.0 % Normal . [facility] Comment on above: Performed By: #### C BCNO #### [facility] [address] MCH (RBC) [Entitic mass] 30.3 pg Normal 24.7-34.3 [facility] Comment on above: Performed By: #### C BCNO #### [facility] [address] MCV (RBC) [Entitic vol] 89.4 fL Normal 80-[address] [facility] Comment on above: Performed By: #### C BCNO #### [facility] [address] Mean Corpuscular HGB Conc 33.9 g/dL Normal 32.0-35.0 [facility] Comment on above: Performed By: #### C BCNO #### [address] Monocytes (Bld) [#/Vol] 0.7 10*3/uL Normal 0.0-0.8 [facility] Comment on above: Performed By: #### C BCNO #### [facility] [address] [place] [address] [place] Monocytes/100 WBC (Bld) 5.2 % Normal . F [facility] Comment on above: Performed By: #### C BCNO #### [facility] [address] Neutrophils (Bld) [#/Vol] 10.6 10*3/uL High 1.8-7.7 [facility] Comment on above: Performed By: #### C BCNO #### [facility] [address] Neutrophils/100 WBC (Bld) 74.3 % Normal . [facility] Comment on above: Performed By: #### C BCNO #### [facility] [address] NRBC% 0.1 /100{WBC} Normal 0-0.5 [facility] Comment on above: Performed By: #### C BCNO #### [facility] [address] Platelet mean volume (Bld) [Entitic vol] 8.3 fL Normal 6.3-10.7 [facility] Comment on above: Performed By: #### C BCNO #### [facility] [address] Platelets (Bld) [#/Vol] 262 10*3/uL Normal 150-450 [facility] Comment on above: Performed By: #### C BCNO #### [facility] [address] [place] [address] [place] RBC (Bld) [#/Vol] 4.77 10*6/uL Normal 3.60-5.00 [facility] Comment on above: Performed By: #### C BCNO #### [facility] [address] [place] [address] [place] WBC (Bld) [#/Vol] 14.3 10*3/uL High 3.8-11.6 [facility] Comment on above: Performed By: #### C BCNO #### [facility] [address] Eosinophils Auto (Bld) [#/Vo l]Ordered By: Yakelin Staley on 06-22-2023 Eosinophils (Bld) [#/Vol] 0.2 10*3/uL 0.0-0.45 [facility] Eosinophils/100 WBC Auto (Bl d)Ordered By: Yakelin Staley on 06-22-2023 Eosinophils/100 WBC (Bld) 1.7 % . [facility] Erythrocyte distribution wid th Auto (RBC) [Ratio]Ordered By: Yakelin Staley on 06-22-2023 Erythrocyte distribution width (RBC) [Ratio] 15.0 % 11.9-15.3 [facility] Hematocrit Auto (Bld) [Volum e fraction]Ordered By: Yakelin Staley on 06-22-2023 Hematocrit (Bld) [Volume fraction] 42.7 % 34.0-46.4 [facility] Hemoglobin [Mass/volume] in BloodOrdered By: Yakelin Staley on 06-22-2023 Hemoglobin (Bld) [Mass/Vol] 14.5 g/dL 11.8-15.4 [facility] Leukocytes [#/volume] correc janet for nucleated erythrocytes in Blood by Automated counOrdered By: Yakelin Staley on 06-22-2023 WBC corrected for nucl RBC Auto (Bld) [#/Vol] 14.3 10*3/uL 3.8-11.6 [facility] Lymphocytes Auto (Bld) [#/Vo l]Ordered By: Yakelin Staley on 06-22-2023 Lymphocytes (Bld) [#/Vol] 2.6 10*3/uL 1.00-4.8 [facility] Lymphocytes/100 WBC Auto (Bl d)Ordered By: Yakelin Staley on 06-22-2023 Lymphocytes/100 WBC (Bld) 18.0 % . [facility] MCH Auto (RBC) [Entitic mass ]Ordered By: Yakelin Staley on 06-22-2023 MCH (RBC) [Entitic mass] 30.3 pg 24.7-34.3 [facility] MCHC Auto (RBC) [Mass/Vol]Or dered By: Yakelin Staley on 06-22-2023 MCHC (RBC) [Mass/Vol] 33.9 g/dL 32.0-35.0 [facility] MCV Auto (RBC) [Entitic vol] Ordered By: Yakelin Staley on 06-22-2023 MCV (RBC) [Entitic vol] 89.4 fL 80-[address] [facility] Monocytes Auto (Bld) [#/Vol] Ordered By: Yakelin Staley on 06-22-2023 Monocytes (Bld) [#/Vol] 0.7 10*3/uL 0.0-0.8 [facility] Monocytes/100 WBC Auto (Bld) Ordered By: Yakelin Staley on 06-22-2023 Monocytes/100 WBC (Bld) 5.2 % . F [facility] Neutrophils Auto (Bld) [#/Vo l]Ordered By: Yakelin Staley on 06-22-2023 Neutrophils (Bld) [#/Vol] 10.6 10*3/uL 1.8-7.7 [facility] Neutrophils/100 WBC Auto (Bl d)Ordered By: Yakelin Staley on 06-22-2023 Neutrophils/100 WBC (Bld) 74.3 % . [facility] Nucleated erythrocytes [Pres ence] in Blood by Automated countOrdered By: Yakelin Staley on 06-22-2023 Nucleated RBC Auto Ql (Bld) 0.1 /100{WBC} 0-0.5 [facility] Platelet mean volume Auto (B ld) [Entitic vol]Ordered By: Yakelin Staley on 06-22-2023 Platelet mean volume (Bld) [Entitic vol] 8.3 fL 6.3-10.7 [facility] Platelets Auto (Bld) [#/Vol] Ordered By: Yakelin Staley on 06-22-2023 Platelets (Bld) [#/Vol] 262 10*3/uL 150-450 [facility] RBC Auto (Bld) [#/Vol]Ordere d By: Yakelin Staley on 06-22-2023 RBC (Bld) [#/Vol] 4.77 10*6/uL 3.60-5.00 [facility] WBC Auto (Bld) [#/Vol]Ordere d By: Yakelin Staley on 06-22-2023 WBC (Bld) [#/Vol] 14.3 10*3/uL 3.8-11.6 [facility] Complete Blood Count Auto Di ffon 03-24-2023 Basophils (Bld) [#/Vol] 0.1 10*3/uL Normal 0.0-0.2 [facility] Comment on above: Result Comment: PERF ORMED BY: [place] [address] PATHOLOGIST LARD MAKER SHANTE LOMBARDI M.D. Performed By: #### C BC #### [address] Basophils/100 WBC (Bld) 0.7 % Normal . F [facility] Comment on above: Performed By: #### C BC #### [address] Eosinophils (Bld) [#/Vol] 0.4 10*3/uL Normal 0.0-0.45 [facility] Comment on above: Performed By: #### C BC #### [address] Eosinophils/100 WBC (Bld) 2.2 % Normal . [facility] Comment on above: Performed By: #### C BC #### [address] Erythrocyte distribution width (RBC) [Ratio] 14.4 % Normal 11.9-15.3 [facility] Comment on above: Performed By: #### C BC #### [address] Hematocrit (Bld) [Volume fraction] 42.6 % Normal 34.0-46.4 [facility] Comment on above: Performed By: #### C BC #### [address] Hemoglobin (Bld) [Mass/Vol] 14.2 g/dL Normal 11.8-15.4 [facility] Comment on above: Performed By: #### C BC #### [facility] [address] [place] [address] [place] Lymphocytes (Bld) [#/Vol] 2.9 10*3/uL Normal 1.00-4.8 [facility] Comment on above: Performed By: #### C BC #### [facility] [address] Lymphocytes/100 WBC (Bld) 17.3 % Normal . [facility] Comment on above: Performed By: #### C BC #### [facility] [address] MCH (RBC) [Entitic mass] 30.2 pg Normal 24.7-34.3 [facility] Comment on above: Performed By: #### C BC #### [address] MCV (RBC) [Entitic vol] 90.7 fL Normal 80-[address] [facility] Comment on above: Performed By: #### C BC #### [address] Mean Corpuscular HGB Conc 33.3 g/dL Normal 32.0-35.0 [facility] Comment on above: Performed By: #### C BC #### [address] Monocytes (Bld) [#/Vol] 1.1 10*3/uL High 0.0-0.8 [facility] Comment on above: Performed By: #### C BC #### [place] [address] [place] Monocytes/100 WBC (Bld) 6.4 % Normal . [facility] Comment on above: Performed By: #### C BC #### [address] Neutrophils (Bld) [#/Vol] 12.2 10*3/uL High 1.8-7.7 [facility] Comment on above: Performed By: #### C BC #### [facility] [address] Neutrophils/100 WBC (Bld) 73.4 % Normal . [facility] Comment on above: Performed By: #### C BC #### [facility] [address] NRBC% 0.1 /100{WBC} Normal 0-0.5 [facility] Comment on above: Performed By: #### C BC #### [address] Platelet mean volume (Bld) [Entitic vol] 8.5 fL Normal 6.3-10.7 [facility] Comment on above: Performed By: #### C BC #### [address] Platelets (Bld) [#/Vol] 302 10*3/uL Normal 150-450 [facility] Comment on above: Performed By: #### C BC #### [address] RBC (Bld) [#/Vol] 4.70 10*6/uL Normal 3.60-5.00 [facility] Comment on above: Performed By: #### C BC #### [address] WBC (Bld) [#/Vol] 16.7 10*3/uL High 3.8-11.6 [facility] Comment on above: Performed By: #### C BC #### [address] Albumin [Mass/volume] in Ser um or Plasma by Bromocresol green (BCG) dye binding methoOrdered By: Alta Schmid on 03-04-2023 Albumin BCG dye [Mass/Vol] 4.1 g/dL 3.5-5.7 [facility] Automated erythrocytes count in urine sediment (number/area)Ordered By: Alta Schmid on 03-04-2023 RBC Auto (Urine sed) [#/Area] 0-1 [HPF] 0-4 [facility] Automated leukocytes count i n urine sediment (number/area)Ordered By: Alta Schmid on 03-04-2023 WBC Auto (Urine sed) [#/Area] 5-9 [HPF] 0-4 [facility] Bilirubin Test strip Ql (U)O rdered By: Alta Schmid on 03-04-2023 Bilirubin Ql (U) Negative Negative [facility] Calcium [Mass/volume] in Ser um or PlasmaOrdered By: Alta Schmid on 03-04-2023 Calcium [Mass/Vol] 9.2 mg/dL 8.6-10.3 [facility] Carbon dioxide, total [Moles /volume] in Serum or PlasmaOrdered By: Alta Schmid on 03-04-2023 CO2 [Moles/Vol] 25.4 mmol/L 21.0-31.0 [facility] Chloride [Moles/volume] in S carlos or PlasmaOrdered By: Alta Schmid on 03-04-2023 Chloride [Moles/Vol] 104 mmol/L 98-107 [facility] Color Auto (U)Ordered By: Ab richard Schmid on 03-04-2023 Color (U) Yellow Yellow [facility] Creatinine [Mass/volume] in Serum or PlasmaOrdered By: Alta Schmid on 03-04-2023 Creatinine [Mass/Vol] 1.59 mg/dL 0.60-1.20 [facility] Creatinine [Mass/volume] in UrineOrdered By: Alta Schmid on 03-04-2023 Creatinine (U) [Mass/Vol] 100.0 mg/dL 11.0-20.0 [facility] Dipstick and Microscopicon 1 05-04-2022 Appearance (U) Clear Normal Clear [facility] Comment on above: Order Comment: Blancao n for Exam Chronic kidney disease, stage III (moderate);Diabetes mellit Name Collection Type:: Clean-Voided Midstream Performed By: #### C UU, ADDONUAPLUS #### [address] Bacteria,Urine None Seen Normal None Seen [facility] Comment on above: Order Comment: Reaso n for Exam Chronic kidney disease, stage III (moderate);Diabetes mellit Name Collection Type:: Clean-Voided Midstream Performed By: #### C UU, ADDONUAPLUS #### [facility] [address] [place] [address] [place] Bilirubin,Urine Negative Normal Negative [facility] Comment on above: Order Comment: Reaso n for Exam Chronic kidney disease, stage III (moderate);Diabetes mellit Name Collection Type:: Clean-Voided Midstream Performed By: #### C UU, ADDONUAPLUS #### [facility] [address] [place] [address] [place] Color (U) Yellow Normal Yellow [facility] Comment on above: Order Comment: Reaso n for Exam Chronic kidney disease, stage III (moderate);Diabetes mellit Name Collection Type:: Clean-Voided Midstream Performed By: #### C UU, ADDONUAPLUS #### [facility] [address] [place] [address] [place] Glucose Ql (U) Normal Normal Normal [facility] Comment on above: Order Comment: Reaso n for Exam Chronic kidney disease, stage III (moderate);Diabetes mellit Name Collection Type:: Clean-Voided Midstream Performed By: #### C UU, ADDONUAPLUS #### [facility] [address] [place] [address] [place] Hyaline Casts,Urine 0-8 Normal 0-8 [facility] Comment on above: Order Comment: Reaso n for Exam Chronic kidney disease, stage III (moderate);Diabetes mellit Name Collection Type:: Clean-Voided Midstream Result Comment: PERF ORMED BY: [place] [address] PATHOLOGIST LARD MAKER SHANTE LOMBARDI M.D. Performed By: #### C UU, ADDONUAPLUS #### [facility] [address] [place] [address] [place] Ketones Ql (U) Negative Normal Negative [facility] Comment on above: Order Comment: Reaso n for Exam Chronic kidney disease, stage III (moderate);Diabetes mellit Name Collection Type:: Clean-Voided Midstream Performed By: #### C UU, ADDONUAPLUS #### [facility] [address] [place] [address] Leukocyte esterase Test strip Ql (U) 1+ High Negative [facility] Comment on above: Order Comment: Reaso n for Exam Chronic kidney disease, stage III (moderate);Diabetes mellit Name Collection Type:: Clean-Voided Midstream Performed By: #### C UU, ADDONUAPLUS #### [facility] [address] [place] [address] Nitrite,Urine Negative Normal Negative [facility] Comment on above: Order Comment: Reaso n for Exam Chronic kidney disease, stage III (moderate);Diabetes mellit Name Collection Type:: Clean-Voided Midstream Performed By: #### C UU, ADDONUAPLUS #### [address] Occult Blood,Urine Negative Normal Negative [facility] Comment on above: Order Comment: Reaso n for Exam Chronic kidney disease, stage III (moderate);Diabetes mellit Name Collection Type:: Clean-Voided Midstream Performed By: #### C UU, ADDONUAPLUS #### [facility] [address] [place] [address] pH (U) 5.5 [pH] Normal 5.0-9.0 [facility] Comment on above: Order Comment: Reaso n for Exam Chronic kidney disease, stage III (moderate);Diabetes mellit Name Collection Type:: Clean-Voided Midstream Performed By: #### C UU, ADDONUAPLUS #### [facility] [address] [place] [address] [place] Protein,Urine Negative Normal Negative [facility] Comment on above: Order Comment: Reaso n for Exam Chronic kidney disease, stage III (moderate);Diabetes mellit Name Collection Type:: Clean-Voided Midstream Performed By: #### C UU, ADDONUAPLUS #### [facility] [address] [place] [address] [place] RBC LM.HPF (Urine sed) [#/Area] 0 /[HPF] Normal 0-4 [facility] Comment on above: Order Comment: Reaso n for Exam Chronic kidney disease, stage III (moderate);Diabetes mellit Name Collection Type:: Clean-Voided Midstream Performed By: #### C UU, ADDONUAPLUS #### [facility] [address] [place] [address] Specificy [place],Urine 1.014 Normal 1.001-1.030 [facility] Comment on above: Order Comment: Reaso n for Exam Chronic kidney disease, stage III (moderate);Diabetes mellit Name Collection Type:: Clean-Voided Midstream Performed By: #### C UU, ADDONUAPLUS #### [facility] [address] [place] [address] Squamous Epithelial Cell,Urine 5-9 High 0-2 [facility] Comment on above: Order Comment: Reaso n for Exam Chronic kidney disease, stage III (moderate);Diabetes mellit Name Collection Type:: Clean-Voided Midstream Performed By: #### C UU, ADDONUAPLUS #### [facility] [address] [place] [address] Urobilinogen,Urine Normal Normal Normal [facility] Comment on above: Order Comment: Reaso n for Exam Chronic kidney disease, stage III (moderate);Diabetes mellit Name Collection Type:: Clean-Voided Midstream Performed By: #### C UU, ADDONUAPLUS #### [facility] [address] [place] [address] WBC,Urine 5-9 High 0-4 [facility] Comment on above: Order Comment: Reaso n for Exam Chronic kidney disease, stage III (moderate);Diabetes mellit Name Collection Type:: Clean-Voided Midstream Performed By: #### C UU, ADDONUAPLUS #### [facility] [address] [place] [address] Erythrocyte distribution wid th Auto (RBC) [Ratio]Ordered By: Alta Schmid on 03-04-2023 Erythrocyte distribution width (RBC) [Ratio] 14.8 % 11.9-15.3 [facility] Glucose [Mass/volume] in Ser um or PlasmaOrdered By: Alta Schmid on 03-04-2023 Glucose [Mass/Vol] 232 mg/dL 70-100 [facility] Comment on above: ADA recommended refe rence rangeRandom Glucose Reference Range is dependent on time and content of last meal. Glucose of more than 200 mg/dL in a nonstressed, ambulatory subject supports the diagnosis of Diabetes Mellitus. Hematocrit Auto (Bld) [Volum e fraction]Ordered By: Alta Schmid on 03-04-2023 Hematocrit (Bld) [Volume fraction] 42.6 % 34.0-46.4 [facility] Hemoglobin [Mass/volume] in BloodOrdered By: Alta Schmid on 03-04-2023 Hemoglobin (Bld) [Mass/Vol] 14.5 g/dL 11.8-15.4 [facility] Hemogram CBC Without Diffon 03-04-2023 Erythrocyte distribution width (RBC) [Ratio] 14.8 % Normal 11.9-15.3 [facility] Comment on above: Order Comment: Reaso n for Exam Chronic kidney disease, stage III (moderate);Diabetes mellit Performed By: #### C BCNO #### [facility] [address] [place] [address] Hematocrit (Bld) [Volume fraction] 42.6 % Normal 34.0-46.4 [facility] Comment on above: Order Comment: Reaso n for Exam Chronic kidney disease, stage III (moderate);Diabetes mellit Performed By: #### C BCNO #### [facility] [address] Hemoglobin (Bld) [Mass/Vol] 14.5 g/dL Normal 11.8-15.4 [facility] Comment on above: Order Comment: Reaso n for Exam Chronic kidney disease, stage III (moderate);Diabetes mellit Performed By: #### C BCNO #### [facility] [address] [place] [address] [place] MCH (RBC) [Entitic mass] 31.1 pg Normal 24.7-34.3 [facility] Comment on above: Order Comment: Reaso n for Exam Chronic kidney disease, stage III (moderate);Diabetes mellit Performed By: #### C BCNO #### [address] MCV (RBC) [Entitic vol] 91.6 fL Normal 80-[address] [facility] Comment on above: Order Comment: Reaso n for Exam Chronic kidney disease, stage III (moderate);Diabetes mellit Performed By: #### C BCNO #### [address] Mean Corpuscular HGB Conc 34.0 g/dL Normal 32.0-35.0 [facility] Comment on above: Order Comment: Reaso n for Exam Chronic kidney disease, stage III (moderate);Diabetes mellit Performed By: #### C BCNO #### [address] Platelet mean volume (Bld) [Entitic vol] 8.5 fL Normal 6.3-10.7 [facility] Comment on above: Order Comment: Reaso n for Exam Chronic kidney disease, stage III (moderate);Diabetes mellit Result Comment: PERF ORMED BY: [place] [address] PATHOLOGIST LARD MAKER SHANTE LOMBARDI M.D. Performed By: #### C BCNO #### [address] Platelets (Bld) [#/Vol] 327 10*3/uL Normal 150-450 [facility] Comment on above: Order Comment: Reaso n for Exam Chronic kidney disease, stage III (moderate);Diabetes mellit Performed By: #### C BCNO #### [address] RBC (Bld) [#/Vol] 4.65 10*6/uL Normal 3.60-5.00 [facility] Comment on above: Order Comment: Reaso n for Exam Chronic kidney disease, stage III (moderate);Diabetes mellit Performed By: #### C BCNO #### [place] [address] [place] WBC (Bld) [#/Vol] 16.2 10*3/uL High 3.8-11.6 [facility] Comment on above: Order Comment: Reaso n for Exam Chronic kidney disease, stage III (moderate);Diabetes mellit Performed By: #### C BCNO #### [facility] [address] Ketones Auto test strip (U) [Mass/Vol]Ordered By: Alta Schmid on 03-04-2023 Ketones (U) [Mass/Vol] Negative Negative [facility] - UrinalysisOrder ed By: Alta Schmid on 03-04-2023 Hyaline casts LM Ql (Urine sed) 0-8 [LPF] 0-8 [facility] Leukocytes [#/volume] correc janet for nucleated erythrocytes in Blood by Automated counOrdered By: Alta Schmid on 03-04-2023 WBC corrected for nucl RBC Auto (Bld) [#/Vol] 16.2 10*3/uL 3.8-11.6 [facility] MCH Auto (RBC) [Entitic mass ]Ordered By: Alta Schmid on 03-04-2023 MCH (RBC) [Entitic mass] 31.1 pg 24.7-34.3 [facility] MCHC Auto (RBC) [Mass/Vol]Or dered By: Alta Schmid on 03-04-2023 MCHC (RBC) [Mass/Vol] 34.0 g/dL 32.0-35.0 [facility] MCV Auto (RBC) [Entitic vol] Ordered By: Alta Schmid on 03-04-2023 MCV (RBC) [Entitic vol] 91.6 fL 80-[address] [facility] Magnesiumon 03-04-2023 Magnesium [Mass/Vol] 1.4 mg/dL Low 1.9-2.7 [facility] Comment on above: Order Comment: Reaso n for Exam Chronic kidney disease, stage III (moderate);Diabetes mellit Performed By: #### R ENAL, MG, [id number], URIC #### [facility] [address] Magnesium [Mass/volume] in S carlos or PlasmaOrdered By: Alta Schmid on 03-04-2023 Magnesium [Mass/Vol] 1.4 mg/dL 1.9-2.7 [facility] Nitrite Test strip Ql (U)Ord ered By: Alta Schmid on 03-04-2023 Nitrite Ql (U) Negative Negative [facility] No Panel InformationOrdered By: Alta Schmid on 03-04-2023 Estimated GFR (CKD-EPI) 35.395 mL/Min [facility] Creatinine Clearance (Chem N/A [facility] Parathyrin.intact [Mass/volu me] in Serum or PlasmaOrdered By: Alta Schmid on 03-04-2023 Parathyrin.intact [Mass/Vol] 87.0 pg/mL [facility] Parathyroid Hormone Intacton 03-04-2023 Parathyroid Hormone Intact 87.0 pg/mL Normal [facility] Comment on above: Order Comment: Reaso n for Exam Chronic kidney disease, stage III (moderate);Diabetes mellit Result Comment: PERF ORMED BY: [place] [address] PATHOLOGIST LARD MAKER SHANTE LOMBARDI M.D. Performed By: #### C BCNO #### [address] Phosphate [Mass/volume] in S carlos or PlasmaOrdered By: Alta Schmid on 03-04-2023 Phosphate [Mass/Vol] 4.0 mg/dL 3.7-7.2 [facility] Platelet mean volume Auto (B ld) [Entitic vol]Ordered By: Alta Schmid on 03-04-2023 Platelet mean volume (Bld) [Entitic vol] 8.5 fL 6.3-10.7 [facility] Platelets Auto (Bld) [#/Vol] Ordered By: Alta Schmid on 03-04-2023 Platelets (Bld) [#/Vol] 327 10*3/uL 150-450 [facility] Potassium [Moles/volume] in Serum or PlasmaOrdered By: Alta Schmid on 03-04-2023 Potassium [Moles/Vol] 4.9 mmol/L 3.5-5.1 [facility] Protein Auto test strip (U) [Mass/Vol]Ordered By: Alta Schmid on 03-04-2023 Protein (U) [Mass/Vol] Negative Negative [facility] Protein Creat Ratio Ur Rando mon 03-04-2023 Creatinine, Urine (Random) 100.0 mg/dL High 11.0-20.0 [facility] Comment on above: Order Comment: Reaso n for Exam Chronic kidney disease, stage III (moderate);Diabetes mellit Performed By: #### P ROCRERAT #### [facility] [address] [place] [address] [place] Protein (U) [Mass/Vol] 14 mg/dL High 0-9 [facility] Comment on above: Order Comment: Reaso n for Exam Chronic kidney disease, stage III (moderate);Diabetes mellit Performed By: #### P ROCRERAT #### [facility] [address] Urine Protein/Creatinine Ratio 140 mg/g{Cre} Normal 0-200 [facility] Comment on above: Order Comment: Reaso n for Exam Chronic kidney disease, stage III (moderate);Diabetes mellit Result Comment: PERF ORMED BY: [place] [address] PATHOLOGIST LARD MAKER SHANTE LOMBARDI M.D. Performed By: #### P ROCRERAT #### [facility] [address] [place] [address] [place] Protein [Mass/volume] in Uri neOrdered By: Alta Schmid on 03-04-2023 Protein (U) [Mass/Vol] 14 mg/dL 0-9 [facility] RBC Auto (Bld) [#/Vol]Ordere d By: Alta Schmid on 03-04-2023 RBC (Bld) [#/Vol] 4.65 10*6/uL 3.60-5.00 [facility] Renal Function Panelon 03-04 Albumin [Mass/Vol] 4.1 g/dL Normal 3.5-5.7 [facility] Comment on above: Order Comment: Reaso n for Exam Chronic kidney disease, stage III (moderate);Diabetes mellit Performed By: #### R ENAL, MG, [id number], URIC #### [facility] [address] [place] [address] Anion gap [Moles/Vol] 13.5 mmol/L Normal 6.0-15.0 [facility] Comment on above: Order Comment: Reaso n for Exam Chronic kidney disease, stage III (moderate);Diabetes mellit Performed By: #### R ENAL, MG, [id number], URIC #### [facility] [address] [place] [address] Calcium [Mass/Vol] 9.2 mg/dL Normal 8.6-10.3 [facility] Comment on above: Order Comment: Reaso n for Exam Chronic kidney disease, stage III (moderate);Diabetes mellit Performed By: #### R ENAL, MG, [id number], URIC #### [facility] [address] [place] [address] Chloride [Moles/Vol] 104 mmol/L Normal 98-107 [facility] Comment on above: Order Comment: Reaso n for Exam Chronic kidney disease, stage III (moderate);Diabetes mellit Performed By: #### R ENAL, MG, [id number], URIC #### [facility] [address] [place] [address] CO2 [Moles/Vol] 25.4 mmol/L Normal 21.0-31.0 [facility] Comment on above: Order Comment: Reaso n for Exam Chronic kidney disease, stage III (moderate);Diabetes mellit Performed By: #### R ENAL, MG, [id number], URIC #### [facility] [address] [place] [address] Creatinine [Mass/Vol] 1.59 mg/dL High 0.60-1.20 [facility] Comment on above: Order Comment: Reaso n for Exam Chronic kidney disease, stage III (moderate);Diabetes mellit Performed By: #### R ENAL, MG, [id number], URIC #### [facility] [address] [place] [address] [place] GFR/1.73 sq M.predicted MDRD (S/P/Bld) [Vol rate/Area] 35.395 mL/min/{1.73_m2} Normal [facility] Comment on above: Order Comment: Reaso n for Exam Chronic kidney disease, stage III (moderate);Diabetes mellit Performed By: #### R ENAL, MG, [id number], URIC #### [facility] [address] Glucose [Mass/Vol] 232 mg/dL High 70-100 [facility] Comment on above: Order Comment: Reaso n for Exam Chronic kidney disease, stage III (moderate);Diabetes mellit Result Comment: [facility] Glucose Reference Range is dependent on time and content of last meal. Glucose of more than 200 mg/dL in a nonstressed, ambulatory subject supports the diagnosis of Diabetes Mellitus. ADA recommended reference range Performed By: #### R ENAL, MG, [id number], URIC #### [facility] [address] [place] [address] Phosphate [Mass/Vol] 4.0 mg/dL Normal 3.7-7.2 [facility] Comment on above: Order Comment: Reaso n for Exam Chronic kidney disease, stage III (moderate);Diabetes mellit Performed By: #### R ENAL, MG, [id number], URIC #### [facility] [address] [place] [address] [place] Potassium [Moles/Vol] 4.9 mmol/L Normal 3.5-5.1 [facility] Comment on above: Order Comment: Reaso n for Exam Chronic kidney disease, stage III (moderate);Diabetes mellit Performed By: #### R ENAL, MG, [id number], URIC #### [facility] [address] [place], [place] [id number] [place] Sodium [Moles/Vol] 138 mmol/L Normal 136-145 [facility] Comment on above: Order Comment: Reaso n for Exam Chronic kidney disease, stage III (moderate);Diabetes mellit Performed By: #### R ENAL, MG, [id number], URIC #### [facility] [address] Urea nitrogen [Mass/Vol] 42 mg/dL High 11-25 [facility] Comment on above: Order Comment: Reaso n for Exam Chronic kidney disease, stage III (moderate);Diabetes mellit Performed By: #### R ENAL, MG, [id number], URIC #### [facility] [address] Serum or plasma anion gap de terminationOrdered By: Alta Sharmaine on 03-04-2023 Anion gap [Moles/Vol] 13.5 mmol/L 6.0-15.0 [facility] Sodium [Moles/volume] in Ser um or PlasmaOrdered By: Alta Sharmaine on 03-04-2023 Sodium [Moles/Vol] 138 mmol/L 136-145 [facility] Specific gravity Auto test s trip (U) [Rel density]Ordered By: Alta Sharmaine on 03-04-2023 Specific gravity (U) [Rel density] 1.014 1.001-1.030 [facility] Squamous epithelial cells de tection in urine sediment by light microscopyOrdered By: Alta Comerdir on 03-04-2023 Epithelial cells.squamous LM Ql (Urine sed) 5-9 [HPF] 0-2 [facility] Urate [Mass/volume] in Serum or PlasmaOrdered By: Alta Sharmaine on 03-04-2023 Urate [Mass/Vol] 10.7 mg/dL 2.3-6.6 [facility] Urea nitrogen [Mass/volume] in Serum or PlasmaOrdered By: Alta Sharmaine on 03-04-2023 Urea nitrogen [Mass/Vol] 42 mg/dL 11-25 [facility] Uric Acidon 03-04-2023 Urate [Mass/Vol] 10.7 mg/dL High 2.3-6.6 [facility] Comment on above: Order Comment: Reaso n for Exam Chronic kidney disease, stage III (moderate);Diabetes mellit Performed By: #### R ENAL, MG, [id number], URIC #### [facility] [address] [place] [id number] [place] Urine Cultureon 03-04-2023 Bacteria identified Cx Nom (U) 75,000 colonies/ml mixed bacterial skin contaminants 2 Days PERFORMED BY: [place] [address] PATHOLOGIST LARD MAKER SHANTE LOMBARDI M.D. Normal [facility] Comment on above: Performed By: #### C UU, ADDONUAPLUS #### [facility] [address] [place], [place] [id number] [facility] Urine bacteria detection by automated methodOrdered By: Alta Schmid on 03-04-2023 Bacteria Auto Ql (U) None seen None Seen [facility] Urine clarity by refractomet ry automatedOrdered By: Alta Schmid on 03-04-2023 Clarity Refractometry automated (U) Clear Clear [facility] Urine culture routineOrdered By: Alta Schmid on 03-04-2023 Bacteria identified Cx Nom (U) 2 Days [facility] Urine glucose measurement by automated test strip (mass/volume)Ordered By: Alta Schmid on 03-04-2023 Glucose Auto test strip (U) [Mass/Vol] Normal mg/dL Normal [facility] Urine hemoglobin detection b y automated test stripOrdered By: Alta Schmid on 03-04-2023 Hemoglobin Auto test strip Ql (U) Negative Negative [facility] Urine leukocyte esterase det ection by automated test stripOrdered By: Alta Schmid on 03-04-2023 Leukocyte esterase Auto test strip Ql (U) 1+ Negative [facility] Urine protein/creatinine rat ioOrdered By: Alta Schmid on 03-04-2023 Protein/Creatinine (U) [Ratio] 140 mg/g{Cre} 0-200 [facility] Urobilinogen Auto test strip (U) [Mass/Vol]Ordered By: Alta Schmid on 03-04-2023 Urobilinogen (U) [Mass/Vol] Normal mg/dL Normal [facility] Vitamin D 25 Hydroxy Totalon 03-04-2023 Vitamin D 25 Hydroxy Total 41.9 ng/mL Normal 30-100 [facility] Comment on above: Order Comment: Reaso n for Exam Chronic kidney disease, stage III (moderate);Diabetes mellit Result Comment: DEBORAH MIN D STATUS 25(OH)VITAMIN D RANGE (ng/mL) Deficient <20 Insufficient 20 to <30 Sufficient 30 to 100 Reference: Isai Rich, Randa WALSH, et al. Evaluation,treatment, and prevention of vitamin D deficiency; an Endocrine Society clinical practice guideline. JCEM. 2010; 96(7):191-. PERFORMED BY: [facility] [address] [place] [address] PATHOLOGIST LARD MAKER SHANTE LOMBARDI M.D. Performed By: #### R ENAL, MG, [id number], URIC #### [address] Vitamin D+Metabolites [Mass/ volume] in Serum or PlasmaOrdered By: Alta Schmid on 03-04-2023 Vitamin D+Metabolites [Mass/Vol] 41.9 ng/mL 30-100 [facility] Comment on above: VITAMIN D STATUS 25( [place])VITAMIN D RANGE (ng/mL) Deficient <20 Insufficient 20 to <30Sufficient 30 to 100Reference: Isai Rich, Randa WALSH, et al. Evaluation,treatment, and prevention of vitamin D deficiency; an Endocrine Society clinical practice guideline. JCEM. 2010; 96(7):191-. pH Auto test strip (U)Ordere d By: Alta Schmid on 03-04-2023 pH (U) 5.5 [pH] 5.0-9.0 [facility] Office Visit (Cardiology)on 12-08-2022 Follow-up visit Diagnoses/Problems Assessed Hypertension (401.9) (I10) Current smoker (305.1) (F17.200) 1/2 pack daily. Diabetes (250.00) (E11.9) Class 1 obesity with body mass index (BMI) of 32.0 to 32.9 in adult (278.00,V85.32) (E66.9,Z68.32) Orders Class 1 obesity with body mass index (BMI) of 32.0 to 32.9 in adult Healthy Weight Tips; Status:Complete; Done: [id number] Some eating tips that can help you lose weight.; Status:Complete; Done: [id number] SocHx: Current smoker Tobacco Use Screening; Status:Complete; Done: [id number] You need to stop smoking. Though it is not easy, more than half of all adult smokers have quit. We encourage you to write down all the reasons you should quit smoking and set a quit date for yourself. Ask us how we can help. You may also call 1-318-XYYXLotarisNOW for free resources and assistance.; Status:Complete; Done: [id number] Patient Instructions Please bring all medicines, vitamins, and herbal supplements with you when you come to the office. Prescriptions will not be filled unless you are compliant with your follow up appointments or have a follow up appointment scheduled as per instruction of your physician. Refills should be requested at the time of your visit. Follow up as needed only Chief Complaint VIDHYA FRED is being seen for an annual follow-up [...] negative for complaint. Vitals Vital Signs Recorded: [id number] 08:41AM Heart Rate66, R Radial Jftrexui398, RUE, Sitting Dwyqjijqr25, RUE, Sitting Height5 ft 3 in Ahjxey855 lb BMI Wsubbsndoe93.95 kg/m2 BSA Calculated1.88 Tobacco Usea) Yes Patient [...] JVP w (more content not included)... Normal [employer] Tobacco Screening.on 023 Fall risk assessment a) No falls within the last year -[facility] 250 DO Work Phone: Tobacco use status CP a) Yes M [facility] [facility] 250 DO Work Phone: Tobacco Screening. Yes -[facility] 250 DO Work Phone: Dipstick and Microscopicon 0 09-18-2022 Appearance (U) Cloudy Critically abnormal Clear [facility] Comment on above: Order Comment: Reaso n for Exam Chronic kidney disease, stage III (moderate);Diabetes mellit Performed By: #### C BCNO #### [facility] [address] [place] [id number] [place] Bacteria,Urine 4+ High None Seen [facility] Comment on above: Order Comment: Reaso n for Exam Chronic kidney disease, stage III (moderate);Diabetes mellit Performed By: #### C BCNO #### [facility] [address] [place] [id number] [place] Bilirubin,Urine Negative Normal Negative [facility] Comment on above: Order Comment: Reaso n for Exam Chronic kidney disease, stage III (moderate);Diabetes mellit Performed By: #### C BCNO #### [facility] [address] [place] [address] [place] Color (U) Yellow Normal Yellow [facility] Comment on above: Order Comment: Reaso n for Exam Chronic kidney disease, stage III (moderate);Diabetes mellit Performed By: #### C BCNO #### [facility] [address] [place] [address] [place] Glucose Ql (U) Normal Normal Normal [facility] Comment on above: Order Comment: Reaso n for Exam Chronic kidney disease, stage III (moderate);Diabetes mellit Performed By: #### C BCNO #### [facility] [address] [place] [address] [place] Hyaline Casts,Urine 9-19 High 0-8 [facility] Comment on above: Order Comment: Reaso n for Exam Chronic kidney disease, stage III (moderate);Diabetes mellit Result Comment: PERF ORMED BY: [place] [address] PATHOLOGIST LARD MAKER SHANTE LOMBARDI M.D. Performed By: #### C BCNO #### [address] Ketones Ql (U) Negative Normal Negative [facility] Comment on above: Order Comment: Reaso n for Exam Chronic kidney disease, stage III (moderate);Diabetes mellit Performed By: #### C BCNO #### [address] Leukocyte esterase Test strip Ql (U) 3+ High Negative [facility] Comment on above: Order Comment: Reaso n for Exam Chronic kidney disease, stage III (moderate);Diabetes mellit Performed By: #### C BCNO #### [address] Nitrite,Urine Positive High Negative [facility] Comment on above: Order Comment: Reaso n for Exam Chronic kidney disease, stage III (moderate);Diabetes mellit Performed By: #### C BCNO #### [address] Occult Blood,Urine Negative Normal Negative [facility] Comment on above: Order Comment: Reaso n for Exam Chronic kidney disease, stage III (moderate);Diabetes mellit Performed By: #### C BCNO #### [facility] [address] [place] [address] [place] pH (U) 6.0 [pH] Normal 5.0-9.0 [facility] Comment on above: Order Comment: Reaso n for Exam Chronic kidney disease, stage III (moderate);Diabetes mellit Performed By: #### C BCNO #### [address] Protein,Urine Negative Normal Negative [facility] Comment on above: Order Comment: Reaso n for Exam Chronic kidney disease, stage III (moderate);Diabetes mellit Performed By: #### C BCNO #### [address] RBC,Urine None Seen Normal 0-4 [facility] Comment on above: Order Comment: Reaso n for Exam Chronic kidney disease, stage III (moderate);Diabetes mellit Performed By: #### C BCNO #### [address] Specificy [place],Urine 1.013 Normal 1.001-1.030 [facility] Comment on above: Order Comment: Reaso n for Exam Chronic kidney disease, stage III (moderate);Diabetes mellit Performed By: #### C BCNO #### [address] Squamous Epithelial Cell,Urine 1-2 Normal 0-2 [facility] Comment on above: Order Comment: Reaso n for Exam Chronic kidney disease, stage III (moderate);Diabetes mellit Performed By: #### C BCNO #### [address] Urobilinogen,Urine Normal Normal Normal [facility] Comment on above: Order Comment: Reaso n for Exam Chronic kidney disease, stage III (moderate);Diabetes mellit Performed By: #### C BCNO #### [address] WBC,Urine 50-100 High 0-4 [facility] Comment on above: Order Comment: Reaso n for Exam Chronic kidney disease, stage III (moderate);Diabetes mellit Performed By: #### C BCNO #### [address] Hemogram CBC Without Diffon 09-18-2022 Erythrocyte distribution width (RBC) [Ratio] 15.4 % High 11.9-15.3 [facility] Comment on above: Order Comment: Reaso n for Exam Chronic kidney disease, stage III (moderate);Diabetes mellit Performed By: #### C BCNO #### [address] Hematocrit (Bld) [Volume fraction] 41.9 % Normal 34.0-46.4 [facility] Comment on above: Order Comment: Reaso n for Exam Chronic kidney disease, stage III (moderate);Diabetes mellit Performed By: #### C BCNO #### [facility] [address] Hemoglobin (Bld) [Mass/Vol] 14.2 g/dL Normal 11.8-15.4 [facility] Comment on above: Order Comment: Reaso n for Exam Chronic kidney disease, stage III (moderate);Diabetes mellit Performed By: #### C BCNO #### [facility] [address] MCH (RBC) [Entitic mass] 30.8 pg Normal 24.7-34.3 [facility] Comment on above: Order Comment: Reaso n for Exam Chronic kidney disease, stage III (moderate);Diabetes mellit Performed By: #### C BCNO #### [address] MCV (RBC) [Entitic vol] 90.9 fL Normal 80-[address] [facility] Comment on above: Order Comment: Reaso n for Exam Chronic kidney disease, stage III (moderate);Diabetes mellit Performed By: #### C BCNO #### [address] Mean Corpuscular HGB Conc 33.9 g/dL Normal 32.0-35.0 [facility] Comment on above: Order Comment: Reaso n for Exam Chronic kidney disease, stage III (moderate);Diabetes mellit Performed By: #### C BCNO #### [address] Platelet mean volume (Bld) [Entitic vol] 8.6 fL Normal 6.3-10.7 [facility] Comment on above: Order Comment: Reaso n for Exam Chronic kidney disease, stage III (moderate);Diabetes mellit Result Comment: PERF ORMED BY: [address] [place] [address] PATHOLOGIST LARD MAKER SHANTE LOMBARDI M.D. Performed By: #### C BCNO #### [address] Platelets (Bld) [#/Vol] 272 10*3/uL Normal 150-450 [facility] Comment on above: Order Comment: Reaso n for Exam Chronic kidney disease, stage III (moderate);Diabetes mellit Performed By: #### C BCNO #### [address] RBC (Bld) [#/Vol] 4.61 10*6/uL Normal 3.60-5.00 [facility] Comment on above: Order Comment: Reaso n for Exam Chronic kidney disease, stage III (moderate);Diabetes mellit Performed By: #### C BCNO #### [address] WBC (Bld) [#/Vol] 14.0 10*3/uL High 3.8-11.6 [facility] Comment on above: Order Comment: Reaso n for Exam Chronic kidney disease, stage III (moderate);Diabetes mellit Performed By: #### C BCNO #### [address] Magnesiumon 09-18-2022 Magnesium [Mass/Vol] 1.9 mg/dL Normal 1.9-2.7 [facility] Comment on above: Order Comment: Reaso n for Exam Chronic kidney disease, stage III (moderate);Diabetes mellit Performed By: #### C BCNO #### [address] Parathyroid Hormone Intacton 09-18-2022 Parathyroid Hormone Intact 33.9 pg/mL Normal 12-88 [facility] Comment on above: Order Comment: Reaso n for Exam Chronic kidney disease, stage III (moderate);Diabetes mellit Result Comment: PERF ORMED BY: [place] [address] PATHOLOGIST LARD MAKER SHANTE LOMBARDI M.D. Performed By: #### C BCNO #### [place] [address] Protein Creat Ratio Ur Rando mon 09-18-2022 Creatinine, Urine (Random) 101.0 mg/dL High 11.0-20.0 [facility] Comment on above: Order Comment: Reaso n for Exam Chronic kidney disease, stage III (moderate);Diabetes mellit Performed By: #### C BCNO #### [address] Protein (U) [Mass/Vol] 10 mg/dL High 0-9 [facility] Comment on above: Order Comment: Reaso n for Exam Chronic kidney disease, stage III (moderate);Diabetes mellit Performed By: #### C BCNO #### [address] Urine Protein/Creatinine Ratio 99 mg/g{Cre} Normal 0-200 [facility] Comment on above: Order Comment: Reaso n for Exam Chronic kidney disease, stage III (moderate);Diabetes mellit Result Comment: PERF ORMED BY: [place] [address] PATHOLOGIST LARD MAKER SHANTE LOMBARDI M.D. Performed By: #### C BCNO #### [address] Renal Function Panelon 09-18 Albumin [Mass/Vol] 3.9 g/dL Normal 3.5-5.7 [facility] Comment on above: Order Comment: Reaso n for Exam Chronic kidney disease, stage III (moderate);Diabetes mellit Performed By: #### C BCNO #### [address] Anion gap [Moles/Vol] 14.0 mmol/L Normal 6.0-15.0 [facility] Comment on above: Order Comment: Reaso n for Exam Chronic kidney disease, stage III (moderate);Diabetes mellit Performed By: #### C BCNO #### [address] Calcium [Mass/Vol] 10.0 mg/dL Normal 8.6-10.3 [facility] Comment on above: Order Comment: Reaso n for Exam Chronic kidney disease, stage III (moderate);Diabetes mellit Performed By: #### C BCNO #### [facility] [address] Chloride [Moles/Vol] 101 mmol/L Normal 98-107 [facility] Comment on above: Order Comment: Reaso n for Exam Chronic kidney disease, stage III (moderate);Diabetes mellit Performed By: #### C BCNO #### [facility] [address] [place] [address] [place] CO2 [Moles/Vol] 27.9 mmol/L Normal 21.0-31.0 [facility] Comment on above: Order Comment: Reaso n for Exam Chronic kidney disease, stage III (moderate);Diabetes mellit Performed By: #### C BCNO #### [facility] [address] [place] [address] [place] Creatinine [Mass/Vol] 1.78 mg/dL High 0.60-1.20 [facility] Comment on above: Order Comment: Reaso n for Exam Chronic kidney disease, stage III (moderate);Diabetes mellit Performed By: #### C BCNO #### [facility] [address] [place] [address] [place] GFR/1.73 sq M.predicted MDRD (S/P/Bld) [Vol rate/Area] 31.104 mL/min/{1.73_m2} [facility] Comment on above: Order Comment: Reaso n for Exam Chronic kidney disease, stage III (moderate);Diabetes mellit Performed By: #### C BCNO #### [facility] [address] [place] [id number] [place] Glucose [Mass/Vol] 167 mg/dL High 70-100 [facility] Comment on above: Order Comment: Reaso n for Exam Chronic kidney disease, stage III (moderate);Diabetes mellit Result Comment: [place] Glucose Reference Range is dependent on time and content of last meal. Glucose of more than 200 mg/dL in a nonstressed, ambulatory subject supports the diagnosis of Diabetes Mellitus. ADA recommended reference range Performed By: #### C BCNO #### [facility] [address] Phosphate [Mass/Vol] 4.4 mg/dL Normal 3.7-7.2 [facility] Comment on above: Order Comment: Reaso n for Exam Chronic kidney disease, stage III (moderate);Diabetes mellit Performed By: #### C BCNO #### [facility] [address] [place] [address] Potassium [Moles/Vol] 4.9 mmol/L Normal 3.5-5.1 [facility] Comment on above: Order Comment: Reaso n for Exam Chronic kidney disease, stage III (moderate);Diabetes mellit Performed By: #### C BCNO #### [address] Sodium [Moles/Vol] 138 mmol/L Normal 136-145 [facility] Comment on above: Order Comment: Reaso n for Exam Chronic kidney disease, stage III (moderate);Diabetes mellit Performed By: #### C BCNO #### [address] Urea nitrogen [Mass/Vol] 43 mg/dL High 7-25 [facility] Comment on above: Order Comment: Reaso n for Exam Chronic kidney disease, stage III (moderate);Diabetes mellit Performed By: #### C BCNO #### [facility] [address] [place] [address] Uric Acidon 09-18-2022 Urate [Mass/Vol] 9.7 mg/dL High 2.3-6.6 [facility] Comment on above: Order Comment: Reaso n for Exam Chronic kidney disease, stage III (moderate);Diabetes mellit Performed By: #### C BCNO #### [facility] [address] [place] [address] Urine Cultureon 09-18-2022 Bacteria identified Cx Nom (U) ORGANISM: Escherichia coli (O:ESCCOL) [place] Count >100,000 Aerobic JACEY Charge (NMIC56) ------ [...] RESISTANT TO ALL B-LACTAM DRUGS. PERFORMED BY: [facility] [address] [place] [address] PATHOLOGIST LARD MAKER SHANTE LOMBARDI M.D. Normal [facility] Comment on above: Performed By: #### C BCNO, [id number], PTH, URIC, MG, RENAL, ADDONUAPLUS, CUU, PROCRERAT ####[facility] [address] [place] [address] [facility] Vitamin D 25 Hydroxy Totalon 09-18-2022 Vitamin D 25 Hydroxy Total 45.1 ng/mL Normal 30-100 [facility] Comment on above: Order Comment: Reaso n for Exam Chronic kidney disease, stage III (moderate);Diabetes mellit Result Comment: DEBORAH MIN D STATUS 25(OH)VITAMIN D RANGE (ng/mL) Deficient <20 Insufficient 20 to <30 Sufficient 30 to 100 Reference: Holick MF,Isai NC, Randa WALSH, et al. Evaluation,treatment, and prevention of vitamin D deficiency; an Endocrine Society clinical practice guideline. JCEM. 2010; 96(7):1911-30. PERFORMED BY: [facility] [address] [place] [id number] PATHOLOGIST LARD MAKER SHANTE LOMBARDI M.D. Performed By: #### C BCNO #### [place] [id number] [facility] CBC AUTO DIFFon 06-28-2022 BASO # 0.1 103/ul Normal 0.0-0.1 [facility] Comment on above: Performed By: #### C BC #### [facility] [address] [place] [address] Dr. Briana Dillard Basophils/100 WBC (Bld) 0.8 % Normal 0.2-2.0 [facility] Comment on above: Performed By: #### C BC #### [facility] [address] [place] [address] [address] Briana Dillard EO # 0.3 103/ul Normal 0.0-0.7 [facility] Comment on above: Performed By: #### C BC #### [facility] [address] [place] [address] Dr. Briana Dillard Eosinophils/100 WBC (Bld) 2.5 % Normal 0.9-7.0 [facility] Comment on above: Performed By: #### C BC #### [facility] [address] [place] [address] Dr. Briana Dillard Erythrocyte distribution width (RBC) [Ratio] 14.8 % Normal 11.0-15.0 [facility] Comment on above: Performed By: #### C BC #### [facility] [address] [place] [address] [address] Briana Dillard Hematocrit (Bld) [Volume fraction] 43.8 % Normal 36.0-48.0 [facility] Comment on above: Performed By: #### C BC #### [facility] [address] [place] [address] [address] Briana Dillard Hemoglobin (Bld) [Mass/Vol] 14.5 g/dL Normal 12.0-16.0 [facility] Comment on above: Performed By: #### C BC #### [facility] [address] [place] [address] Dr. Briana Dillard IG # 0.13 10e3/ul Critically high 0.00-0.03 [facility] Comment on above: Performed By: #### C BC #### [facility] [address] [place] [address] Dr. Briana Dillard IG % 1.0 % Critically high 0.0-0.5 [facility] Comment on above: Performed By: #### C BC #### [facility] [address] [place] [address] Dr. Briana Dillard LYMPH # 2.5 103/ul Normal 1.2-3.8 [facility] Comment on above: Performed By: #### C BC #### [facility] [address] [place] [address] Dr. Briana Dillard Lymphocytes/100 WBC (Bld) 19.1 % Critically low 20.5-60.0 [facility] Comment on above: Performed By: #### C BC #### [facility] [address] [place] [address] Dr. Briana Dillard MANUAL DIFF REQ NO Normal [facility] Comment on above: Performed By: #### C BC #### [facility] [address] [place] [address] Dr. Briana Dillard MCH (RBC) [Entitic mass] 30.8 pg Normal 26.7-34.0 [facility] Comment on above: Performed By: #### C BC #### [facility] [address] [place] [address] Dr. Briana Dillard MCHC (RBC) [Mass/Vol] 33.1 g/dL Normal 29.9-35.2 [facility] Comment on above: Performed By: #### C BC #### [facility] [address] [place] [address] Dr. Briana Dillard MCV (RBC) [Entitic vol] 93.0 fL Normal 81.0-99.0 [facility] Comment on above: Performed By: #### C BC #### [facility] [address] [place] [address] Dr. Briana Dillard MONO # 0.7 103/ul Normal 0.3-0.8 [facility] Comment on above: Performed By: #### C BC #### [facility] [address] [place] [address] Dr. Briana Dillard Monocytes/100 WBC (Bld) 5.7 % Normal 1.7-12.0 [facility] Comment on above: Performed By: #### C BC #### [facility] [address] [place] [address] Dr. Briana Dillard NEUT # 9.2 103/ul Critically high 1.4-6.5 [facility] Comment on above: Performed By: #### C BC #### [facility] [address] [place] [address] Dr. Briana Dillard Neutrophils/100 WBC (Bld) 70.9 % Normal 43.0-75.0 [facility] Comment on above: Performed By: #### C BC #### [facility] [address] [place] [address] Dr. Briana Dillard Platelet mean volume (Bld) [Entitic vol] 10.4 fL Normal 9.5-13.5 [facility] Comment on above: Performed By: #### C BC #### [facility] [address] [place] [address] Dr. Briana Dillard PLT 262 103/ul Normal 150-450 [facility] Comment on above: Performed By: #### C BC #### [facility] [address] [place] [address] Dr. Briana Dillard RBC 4.71 106/ul Normal 4.20-5.40 [facility] Comment on above: Performed By: #### C BC #### [facility] [address] [place] [address] Dr. Briana Dillard WBC 13.0 103/ul Critically high 4.0-11.0 [facility] Comment on above: Performed By: #### C BC #### [facility] [address] [place] [address] [address] Briana Dillard DIRECT LDLon 06-28-2022 Cholesterol in LDL [Mass/Vol] 90 mg/dL Normal [facility] Comment on above: Performed By: #### C MP, CMADM, BNP #### [facility] [address] [place] [address] [address] Briana Dillard DLDL NORMAL SEE BELOW Normal [facility] Comment on above: Result Comment: <100 mg/dl OPTIMAL 100 - 129 mg/dl NEAR OR ABOVE OPTIMAL 130 - 159 mg/dl BORDERLINE HIGH 160 - 189 mg/dl HIGH >190 mg/dl VERY HIGH Performed By: #### C MP, CMADM, BNP #### [facility] [address] [place] [address] Dr. Briana Dillard GLYCOHEMOGLOBIN A1Con 2022 ADA RECOMMENDATION SEE BELOW Normal [facility] Comment on above: Result Comment: ADA RECOMMENDED LIMIT 4.0 - 6.0 ADA THERAPEUTIC TARGET < 7.0 ACTION SUGGESTED > 7.0 Performed By: #### C DARRIAN CMADM, BNP #### [facility] [address] [place] [address] [address] Briana Dillard Glucose [Mass/Vol] 229 mg/dL Normal [facility] Comment on above: Performed By: #### C MP, CMADM, BNP #### [facility] [address] [place] [address] Dr. Briana Dillard HbA1c (Bld) [Mass fraction] 9.6 % Critically high 4.5-6.2 [facility] Comment on above: Performed By: #### C MP, CMADM, BNP #### [facility] [address] [place] [address] Dr. Briana Dillard LIPID PROFILEon 06-28-2022 CHOL-HDL RATIO NORM SEE BELOW Normal [facility] Comment on above: Result Comment: 3.3 - 4.4 LOW RISK 4.4 - 7.1 AVERAGE RISK 7.1 - 11.0 MODERATE RISK >11.0 HIGH RISK Performed By: #### C MP, CMADM, BNP #### [facility] [address] [place] [address] [address] Briana Dillard Cholesterol [Mass/Vol] 219 mg/dL Critically high <=200 [facility] Comment on above: Performed By: #### C MP, CMADM, BNP #### [facility] [address] [place] [address] [address] Briana Dillard Cholesterol in HDL [Mass/Vol] 32 mg/dL Critically low 40-60 [facility] Comment on above: Performed By: #### C MP, CMADM, BNP #### [facility] [address] [place] [address] [address] Briana Dillard Cholesterol.total/Choles terol in HDL [Mass ratio] 6.8 {ratio} Normal [facility] Comment on above: Performed By: #### C MP, CMADM, BNP #### [facility] [address] [place] [address] [address] Briana Dillard HDL NORMAL > or = 60 mg/dl - LOW CARDIOVASCULAR RISK <40 mg/dl - HIGH CARDIOVASCULAR RISK Normal [facility] Comment on above: Performed By: #### C MP, CMADM, BNP #### [facility] [address] [place] [address] [address] Briana Dillard LDL CALC NORMAL SEE BELOW Normal [facility] Comment on above: Result Comment: <100 mg/dl OPTIMAL 100 - 129 mg/dl NEAR OR ABOVE OPTIMAL 130 - 159 mg/dl BORDERLINE HIGH 160 - 189 mg/dl HIGH >190 mg/dl VERY HIGH Performed By: #### C MP, CMADM, BNP #### [facility] [address] [place] [address] [address] Briana Dillard Triglyceride [Mass/Vol] 585 mg/dL Critically high <=150 [facility] Comment on above: Performed By: #### C MP, CMADM, BNP #### [facility] [address] [place] [address] [address] Briana Dillard VLDL CALC 117.0 mg/dL Normal [facility] Comment on above: Performed By: #### C MP, CMADM, BNP #### [facility] [address] [place] [address] Dr. Briana Dillard PROF 14(COMP METB)on 023 Albumin [Mass/Vol] 3.6 g/dL Normal 3.4-5.0 [facility] Comment on above: Performed By: #### L IPID, CMP, DLDL #### [facility] [address] [place] [address] Dr. Briana Dillard Albumin/Globulin [Mass ratio] 0.9 {ratio} Normal [facility] Comment on above: Performed By: #### L IPID, CMP, DLDL #### [facility] [address] [place] [address] Dr. Briana Dillard ALP [Catalytic activity/Vol] 117 U/L Critically high 46-116 [facility] Comment on above: Performed By: #### L IPID, CMP, DLDL #### [facility] [address] [place] [address] Dr. Briana Dillard ALT [Catalytic activity/Vol] 42 U/L Normal 14-59 [facility] Comment on above: Performed By: #### L IPID, CMP, DLDL #### [facility] [address] [place] [address] Dr. Briana Dillard Anion gap [Moles/Vol] 15.4 mmol/L Normal [facility] Comment on above: Performed By: #### L IPID, CMP, DLDL #### [facility] [address] [place] [address] Dr. Briana Dillard AST [Catalytic activity/Vol] 29 U/L Normal 15-37 [facility] Comment on above: Performed By: #### L IPID, CMP, DLDL #### [facility] [address] [place] [address] Dr. Briana Dillard Bilirubin [Mass/Vol] 0.4 mg/dL Normal 0.2-1.0 [facility] Comment on above: Performed By: #### L IPID, CMP, DLDL #### [facility] [address] [place] [address] Dr. Briana Dillard Calcium [Mass/Vol] 10.2 mg/dL Critically high 8.5-10.1 [facility] Comment on above: Performed By: #### L IPID, CMP, DLDL #### [facility] [address] [place] [address] [address] Briana Dillard Chloride [Moles/Vol] 100 mmol/L Normal 98-107 [facility] Comment on above: Performed By: #### L IPID, CMP, DLDL #### [facility] [address] [place] [address] [address] Briana Dillard CO2 [Moles/Vol] 27.3 mmol/L Normal 21.0-32.0 [facility] Comment on above: Performed By: #### L IPID, CMP, DLDL #### [facility] [address] [place] [address] Dr. Briana Dillard Creatinine [Mass/Vol] 1.40 mg/dL Critically high 0.55-1.02 [facility] Comment on above: Performed By: #### L IPID, CMP, DLDL #### [facility] [address] [place] [address] [address] Briana Dillard EGFR-AF RUSSIAN 46 mL/min/1.73m2 Critically low >=60 [facility] Comment on above: Performed By: #### L IPID, CMP, DLDL #### [facility] [address] [place] [address] Dr. Briana Dillard EGFR-NON AF RUSSIAN 38 mL/min/1.73m2 Critically low >=60 [facility] Comment on above: Performed By: #### L IPID, CMP, DLDL #### [facility] [address] [place] [address] [address] Briana Dillard Globulin (S) [Mass/Vol] 3.9 g/dL Normal [facility] Comment on above: Performed By: #### L IPID, CMP, DLDL #### [facility] [address] [place] [address] [address] Briana Dillard Glucose [Mass/Vol] 295 mg/dL Critically high 74-106 [facility] Comment on above: Performed By: #### L IPID, CMP, DLDL #### [facility] [address] [place] [address] Dr. Briana Dillard Potassium [Moles/Vol] 4.7 mmol/L Normal 3.5-5.1 [facility] Comment on above: Performed By: #### L IPID, CMP, DLDL #### [facility] [address] [place] [address] Dr. Briana Dillard Protein [Mass/Vol] 7.5 g/dL Normal 6.4-8.2 [facility] Comment on above: Performed By: #### L IPID, CMP, DLDL #### [facility] [address] [place] [address] Dr. Briana Dillard Sodium [Moles/Vol] 138 mmol/L Normal 136-145 [facility] Comment on above: Performed By: #### L IPID, CMP, DLDL #### [facility] [address] [place] [address] Dr. Briana Dillard Urea nitrogen [Mass/Vol] 34.0 mg/dL Critically high 7.0-18 .0 [facility] Comment on above: Performed By: #### L IPID, CMP, DLDL #### [facility] [address] [place] [address] Dr. Briana Dillard Urea nitrogen/Creatinine [Mass ratio] 24.3 mg/mg Normal [facility] Comment on above: Performed By: #### L IPID, CMP, DLDL #### [facility] [address] [place] [address] Dr. Briana Dillard UA RANDOM W/MICROSCOPICon BACTERIA TRACE Abnormal NONE SEEN [facility] Comment on above: Performed By: #### C MP, CMADM, BNP #### [facility] [address] [place] [address] Dr. Briana Dillard Bilirubin Ql (U) Negative Normal NEGATIVE [facility] Comment on above: Performed By: #### C MP, CMADM, BNP #### [facility] [address] [place] [address] Dr. Briana Dillard CAST NONE SEEN Normal NONE SEEN [facility] Comment on above: Performed By: #### C MP, CMADM, BNP #### [facility] [address] [place] [address] [address] Briana Dillard Clarity (U) CLEAR Normal CLEAR [facility] Comment on above: Performed By: #### C MP, CMADM, BNP #### [facility] [address] [place] [address] [address] Briana Dillard Color (U) LT. YELLOW Normal YELLOW [facility] Comment on above: Performed By: #### C MP, CMADM, BNP #### [facility] [address] [place] [address] [address] Briana Dillard Crystals LM Nom (Urine sed) NONE SEEN Normal NONE SEEN [facility] Comment on above: Performed By: #### C MP, CMADM, BNP #### [facility] [address] [place] [address] Dr. Briana Dillard Epithelial cells LM Ql (Urine sed) MANY Abnormal NONE SEEN /RARE [facility] Comment on above: Performed By: #### C MP, CMADM, BNP #### [facility] [address] [address] [address] Briana Dillard Glucose Ql (U) Negative Normal NEGATIVE The [facility] Comment on above: Performed By: #### C MP, CMADM, BNP #### [facility] [address] [place] [address] Dr. Briana Dillard Hemoglobin Ql (U) Negative Normal NEGATIVE The [facility] Comment on above: Performed By: #### C MP, CMADM, BNP #### [facility] [address] [address] [address] Briana Dillard Ketones Ql (U) Negative Normal NEGATIVE The [facility] Comment on above: Performed By: #### C MP, CMADM, BNP #### [facility] [address] [address] [address] Briana Dillard LEUKOCYTES TRACE Abnormal NEGATIVE [facility] Comment on above: Performed By: #### C MP, CMADM, BNP #### [facility] [address] [address] [address] Briana Dillard MUCOUS NONE SEEN Normal NONE SEEN [facility] Comment on above: Performed By: #### C MP, CMADM, BNP #### [facility] [address] [place] [address] Dr. Briana Dillard Nitrite Ql (U) Negative Normal NEGATIVE The [facility] Comment on above: Performed By: #### C MP, CMADM, BNP #### [facility] [address] [place] [address] Dr. Briana Dillard pH (U) 6.0 [pH] Normal 5-9 [facility] Comment on above: Performed By: #### C MP, CMADM, BNP #### [facility] [address] [place] [address] Dr. Briana Dillard RBC 0-2 Normal 0-2 [facility] Comment on above: Performed By: #### C MP, CMADM, BNP #### [facility] [address] [place] [address] Dr. Briana Dillard SPEC GRAVITY 1.010 Normal 1.005-<=1.02 5 [facility] Comment on above: Performed By: #### C MP, CMADM, BNP #### [facility] [address] [place] [address] Dr. Briana Dillard UA PROTEIN TRACE Normal NEGATIVE/ TRACE [facility] Comment on above: Performed By: #### C MP, CMADM, BNP #### [facility] [address] [place] [address] Dr. Briana Dillard Urobilinogen Qn (U) 0.2 {Samuel'U}/dL Normal 0.2 - 1. 0 [facility] Comment on above: Performed By: #### C MP, CMADM, BNP #### [facility] [address] [place] [address] Dr. Briana Dillard WBC 2-5 Abnormal NONE SEEN [facility] Comment on above: Performed By: #### C MP, CMADM, BNP #### [facility] [address] [place] [address] Dr. Briana Dillard URINE T PROTEIN CREAT RATIOo n 06-28-2022 Protein (U) [Mass/Vol] 30.3 mg/dL Critically high <=12.0 [facility] Comment on above: Performed By: #### C MP, CMADM, BNP #### [facility] [address] [address] [address] Briana Dillard UR PROT CREAT RAT 0.80 Normal [facility] Comment on above: Performed By: #### C MP CMADM, BNP #### [facility] [address] [address] [address] Briana Dillard URINE CREAT 38.11 mg/dL Normal 20.00-300.00 [facility] Comment on above: Performed By: #### C DARRIAN, GEOVANY, BNP #### [facility] [address] [place] [address] Dr. Briana Dillard POINT OF CARE GLUCOSEon 05-05 Glucose [Mass/Vol] 296 mg/dL Critically high 74-106 [facility] Comment on above: Performed By: #### C DARRIAN, CMADM, BNP #### [facility] [address] [place] [address] Dr. Briana Dillard POINT OF CARE GLUCOSEon 05-04 Glucose [Mass/Vol] 312 mg/dL Critically high 74-106 [facility] Comment on above: Performed By: #### C BC #### [facility] [address] [place] [address] Dr. Briana Dillard GLYCOHEMOGLOBIN A1Con 2021 ADA RECOMMENDATION SEE BELOW Normal [facility] Comment on above: Result Comment: ADA RECOMMENDED LIMIT 4.0 - 6.0 ADA THERAPEUTIC TARGET < 7.0 ACTION SUGGESTED > 7.0 Performed By: #### A 1C #### [facility] [address] [place] [address] Dr. Briana Dillard Glucose [Mass/Vol] 223 mg/dL Normal [facility] Comment on above: Performed By: #### A 1C #### [facility] [address] [place] [address] Dr. Briana Dillard HbA1c (Bld) [Mass fraction] 9.4 % Critically high 4.5-6.2 [facility] Comment on above: Performed By: #### A 1C #### [facility] [address] [place] [address] Dr. Briana Dillard CBC AUTO DIFFon 11-29-2021 BASO # 0.1 103/ul Normal 0.0-0.1 [facility] Comment on above: Performed By: #### C BC #### [facility] [address] [place] [address] Dr. Briana Dillard Basophils/100 WBC (Bld) 0.9 % Normal 0.2-2.0 [facility] Comment on above: Performed By: #### C BC #### [facility] [address] [place] [address] Dr. Briana Dillard EO # 0.3 103/ul Normal 0.0-0.7 [facility] Comment on above: Performed By: #### C BC #### [facility] [address] [place] [address] Dr. Briana Dillard Eosinophils/100 WBC (Bld) 2.7 % Normal 0.9-7.0 [facility] Comment on above: Performed By: #### C BC #### [facility] [address] [place] [address] Dr. Briana Dillard Erythrocyte distribution width (RBC) [Ratio] 15.8 % Critically high 11.0-15.0 [facility] Comment on above: Performed By: #### C BC #### [facility] [address] [place] [address] Dr. Briana Dillard Hematocrit (Bld) [Volume fraction] 39.4 % Normal 36.0-48.0 [facility] Comment on above: Performed By: #### C BC #### [facility] [address] [place] [address] Dr. Briana Dillard Hemoglobin (Bld) [Mass/Vol] 13.0 g/dL Normal 12.0-16.0 [facility] Comment on above: Performed By: #### C BC #### [facility] [address] [place] [address] Dr. Briana Dillard IG # 0.12 10e3/ul Critically high 0.00-0.03 [facility] Comment on above: Performed By: #### C BC #### [facility] [address] [place] [address] Dr. Briana Dillard IG % 1.1 % Critically high 0.0-0.5 [facility] Comment on above: Performed By: #### C BC #### [facility] [address] [place] [address] Dr. Briana Dillard LYMPH # 2.7 103/ul Normal 1.2-3.8 [facility] Comment on above: Performed By: #### C BC #### [facility] [address] [place] [address] Dr. Briana Dillard Lymphocytes/100 WBC (Bld) 25.6 % Normal 20.5-60.0 [facility] Comment on above: Performed By: #### C BC #### [facility] [address] [place] [address] Dr. Briana Dillard MANUAL DIFF REQ NO Normal [facility] Comment on above: Performed By: #### C BC #### [facility] [address] [place] [address] Dr. Briana Dillard MCH (RBC) [Entitic mass] 30.9 pg Normal 26.7-34.0 [facility] Comment on above: Performed By: #### C BC #### [facility] [address] [place] [address] Dr. Briana Dillard MCHC (RBC) [Mass/Vol] 33.0 g/dL Normal 29.9-35.2 [facility] Comment on above: Performed By: #### C BC #### [facility] [address] [place] [address] Dr. Briana Dillard MCV (RBC) [Entitic vol] 93.6 fL Normal 81.0-99.0 [facility] Comment on above: Performed By: #### C BC #### [facility] [address] [place] [address] Dr. Briana Dillard MONO # 0.8 103/ul Normal 0.3-0.8 [facility] Comment on above: Performed By: #### C BC #### [facility] [address] [place] [address] Dr. Briana Dillard Monocytes/100 WBC (Bld) 7.9 % Normal 1.7-12.0 [facility] Comment on above: Performed By: #### C BC #### [facility] [address] [place] [address] Dr. Briana Dillard NEUT # 6.6 103/ul Critically high 1.4-6.5 [facility] Comment on above: Performed By: #### C BC #### [facility] [address] [place] [address] Dr. Briana Dillard Neutrophils/100 WBC (Bld) 61.8 % Normal 43.0-75.0 [facility] Comment on above: Performed By: #### C BC #### [facility] [address] [place] [address] Dr. Briana Dillard Platelet mean volume (Bld) [Entitic vol] 10.3 fL Normal 9.5-13.5 [facility] Comment on above: Performed By: #### C BC #### [facility] [address] [place] [address] Dr. Briana Dillard PLT 234 103/ul Normal 150-450 [facility] Comment on above: Performed By: #### C BC #### [facility] [address] [place] [address] Dr. Briana Dillard RBC 4.21 106/ul Normal 4.20-5.40 [facility] Comment on above: Performed By: #### C BC #### [facility] [address] [place] [address] Dr. Briana Dillard WBC 10.6 103/ul Normal 4.0-11.0 [facility] Comment on above: Performed By: #### C BC #### [facility] [address] [place] [address] Dr. Briana Dillard GLYCOHEMOGLOBIN A1Con 2021 ADA RECOMMENDATION SEE BELOW Normal [facility] Comment on above: Result Comment: ADA RECOMMENDED LIMIT 4.0 - 6.0 ADA THERAPEUTIC TARGET < 7.0 ACTION SUGGESTED > 7.0 Performed By: #### C BC #### [facility] [address] [address] [address] Briana Dillard Glucose [Mass/Vol] 220 mg/dL Normal [facility] Comment on above: Performed By: #### C BC #### [facility] [address] [address] [address] Briana Dillard HbA1c (Bld) [Mass fraction] 9.3 % Critically high 4.5-6.2 [facility] Comment on above: Performed By: #### C BC #### [facility] [address] [place] [address] Dr. Briana Dillard LIPID PROFILEon 11-29-2021 CHOL-HDL RATIO NORM SEE BELOW Normal [facility] Comment on above: Result Comment: 3.3 - 4.4 LOW RISK 4.4 - 7.1 AVERAGE RISK 7.1 - 11.0 MODERATE RISK >11.0 HIGH RISK Performed By: #### C MP, CMADM, BNP #### [facility] [address] [place] [address] Dr. Briana Dillard Cholesterol [Mass/Vol] 135 mg/dL Normal <=200 [facility] Comment on above: Performed By: #### C MP, CMADM, BNP #### [facility] [address] [place] [address] Dr. Briana Dillard Cholesterol in HDL [Mass/Vol] 44 mg/dL Normal 40-60 [facility] Comment on above: Performed By: #### C MP, CMADM, BNP #### [facility] [address] [place] [address] Dr. Briana Dillard Cholesterol in LDL [Mass/Vol] 60.2 mg/dL Normal [facility] Comment on above: Performed By: #### C MP, CMADM, BNP #### [facility] [address] [address] [address] Briana Dillard Cholesterol.total/Choles terol in HDL [Mass ratio] 3.1 {ratio} Normal [facility] Comment on above: Performed By: #### C MP, CMADM, BNP #### [facility] [address] [address] [address] Briana Dillard HDL NORMAL > or = 60 mg/dl - LOW CARDIOVASCULAR RISK <40 mg/dl - HIGH CARDIOVASCULAR RISK Normal [facility] Comment on above: Performed By: #### C MP, CMADM, BNP #### [facility] [address] [address] [address] Briana Dillard LDL CALC NORMAL SEE BELOW Normal [facility] Comment on above: Result Comment: <100 mg/dl OPTIMAL 100 - 129 mg/dl NEAR OR ABOVE OPTIMAL 130 - 159 mg/dl BORDERLINE HIGH 160 - 189 mg/dl HIGH >190 mg/dl VERY HIGH Performed By: #### C MP, CMADM, BNP #### [facility] [address] [address] [address] Briana Dillard Triglyceride [Mass/Vol] 154 mg/dL Critically high <=150 [facility] Comment on above: Performed By: #### C MP CMADM, BNP #### [facility] [address] [address] [address] Briana Dillard VLDL CALC 30.8 mg/dL Normal [facility] Comment on above: Performed By: #### C KYLE COLMENARESDM, BNP #### [facility] [address] [address] [address] Briana Dillard POINT OF CARE GLUCOSEon 11-02 Glucose [Mass/Vol] 271 mg/dL Critically high 74-106 [facility] Comment on above: Performed By: #### C BC #### [facility] [address] [address] [address] Briana Dillard Glucose [Mass/Vol] 180 mg/dL Critically high 74-106 [facility] Comment on above: Performed By: #### C MP CMADM, BNP #### [facility] [address] [address] [address] Briana Dillard BNPon 11-28-2021 Natriuretic peptide B (Bld) [Mass/Vol] 86.0 pg/mL Normal <=900.0 [facility] Comment on above: Performed By: #### C MP, CMADM, BNP #### [facility] [address] [address] [address] Briana Dillard CARDIAC TANIA ADMITon 022 CK [Catalytic activity/Vol] 52 U/L Normal 26-192 [facility] Comment on above: Performed By: #### C MP, CMADM, BNP #### [facility] [address] [place] [address] Dr. Briana Dillard CK.MB [Mass/Vol] 0.65 ng/mL Normal <=3.60 [facility] Comment on above: Performed By: #### C MP, CMADM, BNP #### [facility] [address] [place] [address] Dr. Briana Dillard HSTROP 4.8 pg/mL Normal 4.0-51.3 [facility] Comment on above: Result Comment: CUT- OFF POINTS HAVE BEEN ESTABLISHED BASED ON THE FOURTH UNIVERSAL DEFINITIONS OF MYOCARDIAL INFARCTION. THE UPPER REFERENCE LIMIT (URL) OF TROPONIN, DEFINED THE 99TH PERCENTILE OF cTnI DISTRIBUTION IN A REFERENCE POPULATION, HAS BEEN CONFIRMED THE DECISION THRESHOLD FOR TX DIAGNOSIS. Performed By: #### C MP, CMADM, BNP #### [facility] [address] [place] [address] Dr. Briana Dillard YONIS 47 ng/mL Normal 9-82 [facility] Comment on above: Performed By: #### C MP, CMADM, BNP #### [facility] [address] [place] [address] Dr. Briana Dillard CBC AUTO DIFFon 11-28-2021 BASO # 0.1 103/ul Normal 0.0-0.1 [facility] Comment on above: Performed By: #### C BC #### [facility] [address] [place] [address] Dr. Briana Dillard Basophils/100 WBC (Bld) 0.8 % Normal 0.2-2.0 [facility] Comment on above: Performed By: #### C BC #### [facility] [address] [place] [address] Dr. Briana Dillard EO # 0.2 103/ul Normal 0.0-0.7 [facility] Comment on above: Performed By: #### C BC #### [facility] [address] [place] [address] Dr. Briana Dillard Eosinophils/100 WBC (Bld) 1.4 % Normal 0.9-7.0 [facility] Comment on above: Performed By: #### C BC #### [facility] [address] [place] [address] Dr. Briana Dillard Erythrocyte distribution width (RBC) [Ratio] 15.8 % Critically high 11.0-15.0 [facility] Comment on above: Performed By: #### C BC #### [facility] [address] [place] [address] Dr. Briana Dillard Hematocrit (Bld) [Volume fraction] 42.2 % Normal 36.0-48.0 [facility] Comment on above: Performed By: #### C BC #### [facility] [address] [place] [address] Dr. Briana Dillard Hemoglobin (Bld) [Mass/Vol] 14.3 g/dL Normal 12.0-16.0 [facility] Comment on above: Performed By: #### C BC #### [facility] [address] [place] [address] Dr. Briana Dillard IG # 0.14 10e3/ul Critically high 0.00-0.03 [facility] Comment on above: Performed By: #### C BC #### [facility] [address] [place] [address] Dr. Briana Dillard IG % 1.1 % Critically high 0.0-0.5 [facility] Comment on above: Performed By: #### C BC #### [facility] [address] [place] [address] Dr. Briana Dillard LYMPH # 1.9 103/ul Normal 1.2-3.8 [facility] Comment on above: Performed By: #### C BC #### [facility] [address] [place] [address] Dr. Briana Dillard Lymphocytes/100 WBC (Bld) 14.0 % Critically low 20.5-60.0 [facility] Comment on above: Performed By: #### C BC #### [facility] [address] [place] [address] Dr. Briana Dillard MANUAL DIFF REQ NO Normal [facility] Comment on above: Performed By: #### C BC #### [facility] [address] [place] [address] Dr. Briana Dillard MCH (RBC) [Entitic mass] 31.2 pg Normal 26.7-34.0 [facility] Comment on above: Performed By: #### C BC #### [facility] [address] [place] [address] Dr. Briana Dillard MCHC (RBC) [Mass/Vol] 33.9 g/dL Normal 29.9-35.2 [facility] Comment on above: Performed By: #### C BC #### [facility] [address] [place] [address] Dr. Briana Dillard MCV (RBC) [Entitic vol] 92.1 fL Normal 81.0-99.0 [facility] Comment on above: Performed By: #### C BC #### [facility] [address] [place] [address] Dr. Briana Dillard MONO # 1.1 103/ul Critically high 0.3-0.8 [facility] Comment on above: Performed By: #### C BC #### [facility] [address] [place] [address] Dr. Briana Dillard Monocytes/100 WBC (Bld) 8.0 % Normal 1.7-12.0 [facility] Comment on above: Performed By: #### C BC #### [facility] [address] [place] [address] Dr. Briana Dillard NEUT # 9.9 103/ul Critically high 1.4-6.5 [facility] Comment on above: Performed By: #### C BC #### [facility] [address] [place] [address] Dr. Briana Dillard Neutrophils/100 WBC (Bld) 74.7 % Normal 43.0-75.0 [facility] Comment on above: Performed By: #### C BC #### [facility] [address] [address] [address] Briana Dillard Platelet mean volume (Bld) [Entitic vol] 10.1 fL Normal 9.5-13.5 [facility] Comment on above: Performed By: #### C BC #### [facility] [address] [address] [address] Briana Dillard PLT 241 103/ul Normal 150-450 [facility] Comment on above: Performed By: #### C BC #### [facility] [address] [address] [address] Briana Dillard RBC 4.58 106/ul Normal 4.20-5.40 [facility] Comment on above: Performed By: #### C BC #### [facility] [address] [place] [address] Dr. Briana Dillard WBC 13.2 103/ul Critically high 4.0-11.0 [facility] Comment on above: Performed By: #### C BC #### [facility] [address] [place], [place] [id number] Dr. Briana Dillard CTA CHEST WO W [...] NADJA KEMP Date: 2021-11-28 13:10 Normal [facility] Covid-19 PCR (CVDTBH)on 11-02 SARS-CoV-2 (COVID-19) RNA ANTOINE+probe Ql (Unsp spec) Not detected Normal NOT DETECTED [facility] Comment on above: Result Comment: When diagnostic [...] for this test is supported by the [place] of Health and Human Service's declaration that [...] By: #### C MP, CMADM, BNP #### [facility] [address] [address] [address] Briana Dillard D-DIMERon 11-28-2021 D-DIMER 0.77 mg/L FEU Critically high <=0.59 [facility] Comment on above: Performed By: #### P T, PTT, DDIM #### [facility] [address] [address] [address] Briana Dillard D-DIMER COMMENTS SEE BELOW Normal [facility] Comment on above: Result Comment: [...] By: #### P T, PTT, DDIM #### [facility] [address] [place] [address] Dr. Briana Dillard POINT OF CARE GLUCOSEon 11-02 Glucose [Mass/Vol] 213 mg/dL Critically high 74-106 [facility] Comment on above: Performed By: #### P OCGLUC #### [facility] [address] [place] [address] Dr. Briana Dillard Glucose [Mass/Vol] 255 mg/dL Critically high 74-106 [facility] Comment on above: Performed By: #### C MP, CMADM, BNP #### [facility] [address] [place] [address] Dr. Briana Dillard PROF 14(COMP METB)on 022 Albumin [Mass/Vol] 3.4 g/dL Normal 3.4-5.0 [facility] Comment on above: Performed By: #### C MP, CMADM, BNP #### [facility] [address] [place] [address] Dr. Briana Dillard Albumin/Globulin [Mass ratio] 0.9 {ratio} Normal [facility] Comment on above: Performed By: #### C MP, CMADM, BNP #### [facility] [address] [place] [address] Dr. Briana Dillard ALP [Catalytic activity/Vol] 126 U/L Critically high 46-116 [facility] Comment on above: Performed By: #### C MP, CMADM, BNP #### [facility] [address] [place] [address] Dr. Briana Dillard ALT [Catalytic activity/Vol] 30 U/L Normal 14-59 [facility] Comment on above: Performed By: #### C MP, CMADM, BNP #### [facility] [address] [place] [address] Dr. Briana Dillard Anion gap [Moles/Vol] 13.6 mmol/L Normal [facility] Comment on above: Performed By: #### C KYLE COLMENARESDM, BNP #### [facility] [address] [address] [address] Briana Dillard AST [Catalytic activity/Vol] 18 U/L Normal 15-37 [facility] Comment on above: Performed By: #### C KYLE COLMENARESDM, BNP #### [facility] [address] [address] [address] Briana Dillard Bilirubin [Mass/Vol] 0.4 mg/dL Normal 0.2-1.0 [facility] Comment on above: Performed By: #### C KYLE COLMENARESDM, BNP #### [facility] [address] [place] [address] Dr. Briana Dillard Calcium [Mass/Vol] 8.9 mg/dL Normal 8.5-10.1 [facility] Comment on above: Performed By: #### C KYLE COLMENARESDM, BNP #### [facility] [address] [place] [address] Dr. Briana Dillard Chloride [Moles/Vol] 98 mmol/L Normal 98-107 [facility] Comment on above: Performed By: #### C KYLE COLMENARESDM, BNP #### [facility] [address] [place] [address] Dr. Briana Dillard CO2 [Moles/Vol] 25.0 mmol/L Normal 21.0-32.0 [facility] Comment on above: Performed By: #### C DARRIAN CMADM, BNP #### [facility] [address] [place] [address] Dr. Briana Dillard Creatinine [Mass/Vol] 1.58 mg/dL Critically high 0.55-1.02 [facility] Comment on above: Performed By: #### C DARRIAN CMADM, BNP #### [facility] [address] [place] [address] Dr. Briana Dillard EGFR-AF RUSSIAN 40 mL/min/1.73m2 Critically low >=60 [facility] Comment on above: Performed By: #### C KYLE COLMENARESDM, BNP #### [facility] [address] [place] [address] Dr. Briana Dillard EGFR-NON AF RUSSIAN 33 mL/min/1.73m2 Critically low >=60 [facility] Comment on above: Performed By: #### C MP, CMADM, BNP #### [facility] [address] [place] [address] Dr. Briana Dillard Globulin (S) [Mass/Vol] 4.0 g/dL Normal [facility] Comment on above: Performed By: #### C MP, CMADM, BNP #### [facility] [address] [place] [address] Dr. Briana Dillard Glucose [Mass/Vol] 386 mg/dL Critically high 74-106 [facility] Comment on above: Performed By: #### C MP, CMADM, BNP #### [facility] [address] [place] [address] Dr. Briana Dillard Potassium [Moles/Vol] 4.6 mmol/L Normal 3.5-5.1 [facility] Comment on above: Performed By: #### C MP, CMADM, BNP #### [facility] [address] [place] [address] Dr. Briana Dillard Protein [Mass/Vol] 7.4 g/dL Normal 6.4-8.2 [facility] Comment on above: Performed By: #### C MP, CMADM, BNP #### [facility] [address] [place] [address] Dr. Briana Dillard Sodium [Moles/Vol] 132 mmol/L Critically low 136-145 [facility] Comment on above: Performed By: #### C MP, CMADM, BNP #### [facility] [address] [place] [address] Dr. Briana Dillard Urea nitrogen [Mass/Vol] 23.0 mg/dL Critically high 7.0-18 .0 [facility] Comment on above: Performed By: #### C MP, CMADM, BNP #### [facility] [address] [place] [address] Dr. Briana Dillard Urea nitrogen/Creatinine [Mass ratio] 14.6 mg/mg Normal [facility] Comment on above: Performed By: #### C MP, CMADM, BNP #### [facility] [address] [place] [address] Dr. Briana Dillard PROTIMEon 11-28-2021 INR Coag (PPP) [Relative time] 1.01 {INR} Normal [facility] Comment on above: Performed By: #### P T, PTT, DDIM #### [facility] [address] [place] [address] Dr. Briana Dillard INR GUIDELINES SEE BELOW Normal [facility] Comment on above: Result Comment: LURDES RED INR: 2.0 - 3.0 CONDITIONS NOT LISTED BELOW 2.5 - 3.5 FOR PROSTHETIC HEART VALVE REPLACEMENT 2.5 - 3.5 RECURRENT THROMBOSIS Performed By: #### P T, PTT, DDIM #### [facility] [address] [place] [address] Dr. Briana Dillard PT Coag (PPP) [Time] 10.9 s Normal 9.0-11.6 [facility] Comment on above: Performed By: #### P T, PTT, DDIM #### [facility] [address] [place] [address] Dr. Briana iDllard PTTon 11-28-2021 aPTT Coag (Bld) [Time] 27.5 s Normal 22.3-36.2 [facility] Comment on above: Performed By: #### P T, PTT, DDIM #### [facility] [address] [place] [address] Dr. Briana Dillard TROPONIN, HIGH SENSITIVITYon 11-28-2021 HSTROP 5.5 pg/mL Normal 4.0-51.3 [facility] Comment on above: Result Comment: CUT- OFF POINTS HAVE BEEN ESTABLISHED BASED ON THE FOURTH UNIVERSAL DEFINITIONS OF MYOCARDIAL INFARCTION. THE UPPER REFERENCE LIMIT (URL) OF TROPONIN, DEFINED THE 99TH PERCENTILE OF cTnI DISTRIBUTION IN A REFERENCE POPULATION, HAS BEEN CONFIRMED THE DECISION THRESHOLD FOR TX DIAGNOSIS. Performed By: #### C MP, CMADM, BNP #### [facility] [address] [place], [place] [address] Dr. Briana Dillard HSTROP 5.4 pg/mL Normal 4.0-51.3 [facility] Comment on above: Result Comment: CUT- OFF POINTS HAVE BEEN ESTABLISHED BASED ON THE FOURTH UNIVERSAL DEFINITIONS OF MYOCARDIAL INFARCTION. THE UPPER REFERENCE LIMIT (URL) OF TROPONIN, DEFINED THE 99TH PERCENTILE OF cTnI DISTRIBUTION IN A REFERENCE POPULATION, HAS BEEN CONFIRMED THE DECISION THRESHOLD FOR TX DIAGNOSIS. Performed By: #### C MP, CMADM, BNP #### [facility] [address] [address] [address] Briana Dillard HSTROP 5.6 pg/mL Normal 4.0-51.3 [facility] Comment on above: Result Comment: CUT- OFF POINTS HAVE BEEN ESTABLISHED BASED ON THE FOURTH UNIVERSAL DEFINITIONS OF MYOCARDIAL INFARCTION. THE UPPER REFERENCE LIMIT (URL) OF TROPONIN, DEFINED THE 99TH PERCENTILE OF cTnI DISTRIBUTION IN A REFERENCE POPULATION, HAS BEEN CONFIRMED THE DECISION THRESHOLD FOR TX DIAGNOSIS. Performed By: #### C DARRIAN, CMADM, BNP #### [facility] [address] [address] [address] Briana Dillard XR CHEST 1 Von [...] NADJA KEMP Date: 2021-11-28 12:46 Normal [facility] Tobacco Screening.on 022 Adult depression screening assessment Yes -[facility] [facility] [address] DO Work Phone: Tobacco use status CPHS a) Yes M P-[facility] [facility] DO Work Phone: Tobacco Screening. Yes -[facility] [facility] [address] DO Work Phone: Tobacco Screening. 1-Several days -[facility] [facility] 250 DO Work Phone: Tobacco Screening. 0-Not at all [facility] Work Phone: Tobacco Screening. Not difficult at all [facility] [facility] 250 DO Work Phone: Echocardiogramon 05-20-2021 Echocardiography [facility] [address], [address] [place] [address] TRANSTHORACIC ECHOCARDIOGRAM REPORT Patient Name: VIDHYA IBARRA Reading Physician: [id number] Ruma Dawn MD Study Date: 05/20/2021 Referring [id number] SHASHI COTTRELL Physician: MRN/PID: [id number] PCP: Accession/Order#: [id number] [facility] Location: Date of : 1955 Fellow: Gender: F Nurse: Admit Date: Cvor Nurse: Clarisse Sumner [facility], T Height: 160.02 cm CC Report to: Weight: 89.36 kg Study Type: Echocardiogram BSA: 1.92 m2 Blood Pressure: 166 /94 mmHg Diagnosis/ICD: I51.7-Cardiomegaly; R06.00-Dyspnea, unspecified Indication: Obesity, Tobacco Abuse Procedure/CPT: Echo Complete w Full [id number] Study Detail: The following Echo studies were [...] 0.9 m/s (0.6-0.9m/s) PV Max P.1 mmHg [id number] Ruma Dawn MD Electronically signed on 05/24/2021 at 5:25:46 PM Final Normal [facility] Tobacco Screening.on 022 Fall risk assessment a) No falls within the last year [facility] y 250 DO Work Phone: Tobacco use status CPHS a) Yes [facility] y 250 DO Work Phone: Fall risk assessment a) No falls within the last year [facility] 250 DO Work Phone: Tobacco use status CPHS a) Yes [facility] y 250 DO Work Phone: Tobacco Screening. Yes [facility] y 250 DO Work Phone: Bld Gas Venon 12-02-2019 Allens Test N/A [facility] Comment on above: Result Comment: [facility] Department of Pulmonary Medicine [address] [place] [address] Performed By: #### 1 [id number] #### [facility] [address] [place] [address] Called By: KATHY LAB [facility] Comment on above: Performed By: #### 1 [id number] #### [facility] [address] [place] [address] Called To: DR. CORINNE COFFMAN [facility] Comment on above: Performed By: #### 1 [id number] #### [facility] [address] [id number] Drawn by [employer] [facility] Comment on above: Performed By: #### 1 [id number] #### [facility] [address] [place] [address] Dt/Tm Notified 17:42:00 F [facility] Comment on above: Performed By: #### 1 [id number] #### [facility] [address] [place] [address] pCO2 Guillaume 36.1 mmHg Low 38.0-50.0 [facility] Comment on above: Performed By: #### 1 [id number] #### [facility] [address] [place] [address] pH (BldV) 7.392 [pH] Normal 7.320-7.430 [facility] Comment on above: Performed By: #### 1 [id number] #### [facility] [address] [place] [address] Sample Site OTHER [facility] Comment on above: Performed By: #### 1 [id number] #### [facility] [address] [place] [address] Sample Type Venous [facility] Comment on above: Performed By: #### 1 [id number] #### [facility] [address] [place] [address] Physician Orderon 12-02-2019 Physician Order [id number]:127 Normal [facility] Vital Signs Date Time Vital Sign Value Performing Clinician Facility 06-24-2023 10:07-0500 Body height 160.02 cm MD Shaikh Mchugh Work Phone: [facility] 06-24-2023 10:07-0500 Body mass index (BMI) [Ratio] 34.2 kg/m2 MD Shaikh Mchugh Work Phone: [facility] 06-24-2023 10:07-0500 Body temperature 97.2 [degF] MD Shaikh Mchugh Work Phone: [facility] 06-24-2023 10:07-0500 Body weight 87.54 kg MD Shaikh Mchugh Work Phone: [facility] 06-24-2023 10:07-0500 Diastolic blood pressure 96 mm[Hg] MD Shaikh Mchugh Work Phone: [facility] 06-24-2023 10:07-0500 Heart rate 78 /min MD Shaikh Mchugh Work Phone: [facility] 06-24-2023 10:07-0500 Respiratory rate 16 /min MD Shaikh Mchugh Work Phone: [facility] 06-24-2023 10:07-0500 SaO2% (BldA) [Mass fraction] 95 % MD Shaikh Mchugh Work Phone: [facility] 06-24-2023 10:07-0500 Systolic blood pressure 160 mm[Hg] MD Shaikh Mchugh Work Phone: [facility] 03-24-2023 13:06-0500 Body temperature 97.8 [degF] MD Shaikh Mchugh Work Phone: [facility] 03-24-2023 13:06-0500 Body weight 86.63 kg MD Shaikh Mchugh Work Phone: [facility] 03-24-2023 13:06-0500 Diastolic blood pressure 67 mm[Hg] MD Shaikh Mchugh Work Phone: [facility] 03-24-2023 13:06-0500 Heart rate 68 /min MD Shaikh Mchugh Work Phone: [facility] 03-24-2023 13:06-0500 Respiratory rate 16 /min MD Shaikh Mchugh Work Phone: [facility] 03-24-2023 13:06-0500 SaO2% (BldA) [Mass fraction] 98 % MD Shaikh Mchugh Work Phone: [facility] 03-24-2023 13:06-0500 Systolic blood pressure 130 mm[Hg] MD Shaikh Mchugh Work Phone: [facility] 03-24-2023 12:53-0500 Body height 160.02 cm MD Shaikh Mchugh Work Phone: [facility] 03-11-2023 09:20-0500 Body height 162.56 cm Alta Sharmaine Other [employer] Other 03-11-2023 09:20-0500 Body mass index (BMI) [Ratio] 32.78 kg/m2 Alta Sharmaine Other [employer] Other 03-11-2023 09:20-0500 Body temperature 96.3 [degF] Alta Sharmaine Other [employer] Other 03-11-2023 09:20-0500 Body weight 86.64 kg Alta Sharmaine Other [employer] Other 03-11-2023 09:20-0500 Diastolic blood pressure 77 mm[Hg] Alta Sharmaine Other [employer] Other 03-11-2023 09:20-0500 Respiratory rate 18 /min Alta Sharmaine Other [employer] Other 03-11-2023 09:20-0500 SaO2% (BldA) [Mass fraction] 95 % Alta Sharmaine Other [employer] Other 03-11-2023 09:20-0500 Systolic blood pressure 139 mm[Hg] Alta Sharmaine Other [employer] Other 12-08-2022 08:41-0400 Body height 160.02 cm Shaikh Louisd [facility] [employer] 250 DO Work Phone: 12-08-2022 08:41-0400 Body mass index (BMI) [Ratio] 32.95 kg/m2 Shaikh Louisd Work Phone: [facility] [employer] 250 DO Work Phone: 12-08-2022 08:41-0400 Body surface area Derived from formula 1.88 m2 Shaikh Louisd Work Phone: [facility] [employer] 250 DO Work Phone: 12-08-2022 08:41-0400 Body weight 84.37 kg Shaikh Louisd Work Phone: [employer] [facility] 250 DO Work Phone: 12-08-2022 08:41-0400 Diastolic blood pressure 60 mm[Hg] Shaikh Brightwad Work Phone: [facility] [facility] DO Work Phone: 12-08-2022 08:41-0400 Heart rate 66 /min Shaikh Louisd Work Phone: [facility] 250 DO Work Phone: 12-08-2022 08:41-0400 Systolic blood pressure 108 mm[Hg] Dial Fawwad Work Phone: [facility] 250 DO Work Phone: 07-01-2021 13:12-0500 Diastolic blood pressure 88 mm[Hg] Dial Fawwad Work Phone: [facility] 250 DO Work Phone: 07-01-2021 13:12-0500 Systolic blood pressure 138 mm[Hg] Dial Fawwad Work Phone: [facility] 250 DO Work Phone: 07-01-2021 09:20-0500 Diastolic blood pressure 100 mm[Hg] Dial Fawwad Work Phone: [facility] 250 DO Work Phone: 07-01-2021 09:20-0500 Systolic blood pressure 148 mm[Hg] Dial Fawwad Work Phone: [facility] 250 DO Work Phone: 07-01-2021 09:01-0500 Diastolic blood pressure 98 mm[Hg] Dial Fawwad Work Phone: [facility] 250 DO Work Phone: 07-01-2021 09:01-0500 Systolic blood pressure 168 mm[Hg] Dial Fawwad Work Phone: [facility] 250 DO Work Phone: 07-01-2021 08:51-0500 Body height 160.02 cm Dial Fawwad Work Phone: [facility] 250 DO Work Phone: 07-01-2021 08:51-0500 Body mass index (BMI) [Ratio] 33.83 kg/m2 Shaikh Louisd Work Phone: [facility] 250 DO Work Phone: 07-01-2021 08:51-0500 Body surface area Derived from formula 1.9 m2 Shaikh Jeison Work Phone: [facility] 250 DO Work Phone: 07-01-2021 08:51-0500 Body weight 86.64 kg Shaikh Louisd Work Phone: [facility] 250 DO Work Phone: 07-01-2021 08:51-0500 Diastolic blood pressure 104 mm[Hg] Shaikh Louisd Work Phone: [facility] 250 DO Work Phone: 07-01-2021 08:51-0500 Heart rate 87 /min Shaikh Jeison Work Phone: [facility] 250 DO Work Phone: 07-01-2021 08:51-0500 Systolic blood pressure 169 mm[Hg] Shaikh Louisd Work Phone: [facility] 250 DO Work Phone: 07-01-2021 08:51-0500 6 1 Shaikh Brightwad Work Phone: [facility] 250 DO Work Phone: Comment on above: PHQ-9 TS 05-24-2021 10:00-0500 Body height 162.56 cm Juan Gonzalez Other [employer] Other 01-21-2022 10:00-0500 Body mass index (BMI) [Ratio] 32.44 kg/m2 Juan Gonzalez Other [email or web address] Other 05-24-2021 10:00-0500 Body weight 85.73 kg Juan Gonzalez Other [employer] Other 05-20-2021 10:45-0500 60 1 Shaikh Nolbertowwad Work Phone: [facility] [address] [place] Work Phone: Comment on above: [id number] 05-13-2021 11:59-0500 Diastolic blood pressure 104 mm[Hg] Dial Nolbertowwad Work Phone: [facility] 250 DO Work Phone: 05-13-2021 11:59-0500 Systolic blood pressure 162 mm[Hg] Dial Nolbertowwad Work Phone: [facility] 250 DO Work Phone: 05-13-2021 11:13-0500 Diastolic blood pressure 100 mm[Hg] Dial Fawwad Work Phone: [facility] 250 DO Work Phone: 05-13-2021 11:13-0500 Systolic blood pressure 170 mm[Hg] Dial Nolbertowwad Work Phone: [facility] 250 DO Work Phone: 05-13-2021 11:12-0500 Body height 160.02 cm Dial Fawwad Work Phone: [facility] 250 DO Work Phone: 05-13-2021 11:12-0500 Body mass index (BMI) [Ratio] 34.9 kg/m2 Dial Fawwad Work Phone: [facility] 250 DO Work Phone: 05-13-2021 11:12-0500 Body surface area Derived from formula 1.92 m2 Shaikh Louisd Work Phone: [facility] 250 DO Work Phone: 05-13-2021 11:12-0500 Body weight 89.36 kg Shaikh Jeison Work Phone: [facility] 250 DO Work Phone: 05-13-2021 11:12-0500 Diastolic blood pressure 102 mm[Hg] Shaikh Jeison Work Phone: [facility] 250 DO Work Phone: 05-13-2021 11:12-0500 Heart rate 88 /min Shaikh Jeison Work Phone: [facility] 250 DO Work Phone: 05-13-2021 11:12-0500 Systolic blood pressure 172 mm[Hg] Shaikh Jeison Work Phone: [facility] 250 DO Work Phone: 05-13-2021 11:07-0500 Body height 160.02 cm Shaikh Jeison Work Phone: [facility] 250 DO Work Phone: 05-13-2021 11:07-0500 Body mass index (BMI) [Ratio] 34.9 kg/m2 Shaikh Brightwad Work Phone: [facility] 250 DO Work Phone: 05-13-2021 11:07-0500 Body surface area Derived from formula 1.92 m2 Shaikh Brightwad Work Phone: [facility] 250 DO Work Phone: 05-13-2021 11:07-0500 Body weight 89.36 kg Shaikh Jeison Work Phone: [facility] 250 DO Work Phone: 05-13-2021 11:07-0500 Heart rate 88 /min Shaikh Jeison Work Phone: [facility] 250 DO Work Phone: 04-09-2021 11:40-0500 Body height 162.56 cm Juan Gonzalez Other [employer] Other 04-09-2021 11:40-0500 Body mass index (BMI) [Ratio] 32.44 kg/m2 Juan Gonzalez Other [employer] Other 04-09-2021 11:40-0500 Body weight 85.73 kg Juan Gonzalez Other [employer] Other 04-09-2021 11:40-0500 Diastolic blood pressure 72 mm[Hg] Juan Gonzalez Other [employer] Other 04-09-2021 11:40-0500 Systolic blood pressure 124 mm[Hg] Juan Gonzalez Other [employer] Other Encounters Encounter Date Encounter Type Care Provider Facility Start: 07-13-2023 End: 07-13-2023 ambulatory SHAIKH JEISON Not Available Start: 07-10-2023 End: 07-10-2023 ambulatory EZRA VILLA V Not Available Start: 07-03-2023 ambulatory Yakelin Staley Facility:[facility] Start: 07-03-2023 End: 07-03-2023 ambulatory EZRA VILLA V Not Available Start: 06-24-2023 End: 06-24-2023 ambulatory MD Shaikh Mchugh Work Phone: [facility] Work Phone: Start: 06-24-2023 End: 06-24-2023 Patient encounter procedure MD Shaikh Mchugh Work Phone: [facility] Work Phone: Start: 06-24-2023 Registered Recurring MD Shaikh Mchugh [facility] Work Phone: Start: 06-01-2023 End: 06-02-2023 ambulatory [facility] Start: 05-11-2023 End: 05-12-2023 ambulatory Radha Dunaway MD Facility:[facility] Start: 04-13-2023 Telephone encounter Neena Hi [facility] Start: 04-13-2023 End: 04-13-2023 ambulatory SHAIKH JEISON [facility] [employer] Other Start: 04-06-2023 End: 04-07-2023 ambulatory [facility] Start: 03-24-2023 End: 03-24-2023 ambulatory MD Shaikh Mchugh Work Phone: [facility] Work Phone: Start: 03-24-2023 End: 03-24-2023 Registered Recurring MD Shaikh Mchugh [facility]: [facility] Work Phone: Start: 03-11-2023 End: 03-11-2023 ambulatory Alta Schmid Other [facility] [employer] Other Start: 03-11-2023 Office outpatient vi sit 25 minutes Alta Schmid [facility] [place] Start: 03-04-2023 End: 03-04-2023 ambulatory Alta Sharmaine Facility:[facility] Start: 03-04-2023 End: 03-04-2023 ambulatory MD Shaikh Mchugh Work Phone: [facility] Work Phone: Start: 03-04-2023 End: 03-04-2023 Patient encounter procedure MD Shaikh Mchugh Work Phone: [facility] [place] Work Phone: Start: 12-08-2022 Office outpatient vi sit 15 minutes Shaikh Jeison Work Phone: [facility] 250 DO Work Phone: Start: 12-08-2022 Patient encounter procedure Shaikh Jeison Work Phone: [facility] 250 DO Work Phone: Start: 12-08-[address] Shashi Cottrell II Facility: Start: 11-10-2022 End: 11-11-2022 ambulatory Radha Dunaway MD Facility:[facility] Start: 10-16-2022 ambulatory SHAIKH Gurjit HERNADEZD Facilit y:[facility] Start: 09-18-2022 End: 09-18-2022 ambulatory Alta Sharmaine Facility:[facility] Start: 07-17-2022 End: 07-18-2022 ambulatory DIAL H FAWWAD Facility:[facility] Start: 06-29-2022 Rx Renewal Dial Fawwaalex Work Phone: [facility] 250 DO Work Phone: Start: 06-28-2022 End: 06-29-2022 ambulatory DILA H NOLBERTOWWAD Facility:[facility] Start: 06-12-[address] ELIGIO HODGE . Faci lity:[facility] Start: 05-27-2022 End: 05-27-[address] ELIGIO HODGE . Facility:[facility] Start: 05-13-2022 End: 05-13-[address] ELIGIO HODGE . Facility:[facility] Start: 04-10-2022 End: 04-11-[address] ELIGIO HODGE . Facility:[facility] Start: 02-17-2022 End: 02-18-2022 ambulatory DIAL H FAWWAD Facility:[facility] Start: 01-10-[address] Shashi Cottrell II Facility: Start: 01-09-2022 End: 01-10-2022 ambulatory DIAL H FAWWAD Facility:[facility] Start: 11-28-2021 End: 11-29-2021 ambulatory DIAL H FAWWAD Facility:H1 Start: 10-17-2021 End: 10-18-2021 ambulatory EVA ROSEN . Facility:H1 Start: 07-01-2021 AUDIT Dial Fawwad Work Phone: [facility] 250 DO Work Phone: Start: 05-28-2021 FUV, Provider: Shashi Cottrell, Status: Pen, Time: 10:50 AM Dial Fawwad Work Phone: [facility] 250 DO Work Phone: Start: 05-26-2021 Chart Update Dial Fawwad Work Phone: [facility] 250 DO Work Phone: Start: 05-24-2021 End: 05-24-2021 ambulatory Juan Gonzalez Other [facility] [employer] Other Start: 05-24-2021 Office outpatient vi sit 15 minutes Juan Gonzalez [facility] Start: 05-20-2021 Patient encounter procedure Dial Fawwad Work Phone: [facility] [address] [place] Work Phone: Start: 05-13-2021 Office consultation new/estab patient 60 min Dial Fawwad Work Phone: [facility] 250 DO Work Phone: Start: 04-09-2021 End: 04-09-2021 ambulatory Juan Gonzalez Other [facility] [employer] Other Start: 04-09-2021 Office outpatient ne w 45 minutes Juan Gonzalez [facility] Procedures Date Procedure Procedure Detail Performing Clinician Start: 03-04-2023 Urine culture MD Shaikh Mchugh Work Phone: Start: 05-20-2021 Echocardiography Shaikh Jeison Work Phone: Cardiac catheterization Wayne Mchugh Work Phone: Cholecystectomy Shaikh Louis johnson Work Phone: Dilation and curettage Shaik gurjit Mchugh Work Phone: Total colonoscopy Shaikh Bright [place] Work Phone: Plan of Treatment Date Care Activity Detail Author Start: 06-24-2023 Patient referral [facility] Work Phone: Start: 03-04-2023 Bacteria identified in Urine by Culture [facility] Start: 12-12-2022 FUV, Provider: Shashi Cottrell, Status: Pen, Time: 3:20 PM FUV, Provider: Shashi Cottrell, Status: Pen, Time: 3:20 PM [facility] 250 DO Work Phone: Start: 01-10-2022 FUV, Provider: Shashi Cottrell, Status: Pen, Time: 2:00 PM FUV, Provider: Shashi Cottrell, Status: Pen, Time: 2:00 PM [facility] 250 DO Work Phone: Start: 07-01-2021 FUV, Provider: Shashi Cottrell, Status: Pen, Time: 8:40 AM FUV, Provider: Shashi Cottrell, Status: Pen, Time: 8:40 AM [facility] [address] [place] Work Phone: Start: 05-28-2021 FUV, Provider: Shashi Cottrell, Status: Pen, Time: 10:50 AM FUV, Provider: Shashi Cottrell, Status: Pen, Time: 10:50 AM [facility] 250 DO Work Phone: Start: 05-20-2021 ECHO, [facility]: [facility] ,[id number], Status: Pen, Time: 10:45 AM ECHO, Provider: [facility] ,[id number], Status: Pen, Time: 10:45 AM [facility] Work Phone: MG Breast - bilatera l Screening [facility] Patient referral [facility] Work Phone: [facility] Immunizations Immunization Date Immunization Notes Care Provider Nolberto saul 10-20-2020 pneumococcal polysaccharide vaccine, 23 valent Shaikh Jeison Work Phone: [facility] 250 DO Work Phone: 08-23-2020 COVID-19 Vaccine Mod jasson - Documentation Purposes Only Juan Gonzalez Other [facility] 05-04-2020 pneumococcal conjuga te vaccine, 13 valent Shaikh Jeison Work Phone: [facility] 250 DO Work Phone: Comment on above: Series: 02-03-2020 Influenza, injectabl e, Madin [place] Canine Kidney, preservative free, quadrivalent Shaikh Jeison Work Phone: [facility] 250 DO Work Phone: 02-09-2019 Vaxneuvance 0.5 ML Intramuscular Suspension Prefilled Syringe Shaikh Jeison Work Phone: [facility] 250 DO Work Phone: 04-05-2017 influenza, injectabl e, quadrivalent, preservative free Shaikh Jeison Work Phone: [facility] 250 DO Work Phone: Payers Date Payer Category Payer Self-pay [id number] 2022 Medicaid [id number] 2022 Private Health Insurance 1959 Medicare [id number] 2.16. [id number] 1955 Unknown [id number] 2.16.84 0.1.776928.3.579.2.593 1955 Unknown [id number] 2.16.84 0.1.624204.3.579.2.593 1955 Unknown [id number] 2.16.84 0.1.011238.3.579.2.593 1955 Unknown [id number] 2.16.84 0.1.954436.3.579.2.593 1955 Unknown [id number] 2.16.84 0.1.340623.3.579.2.593 1955 Unknown [id number] 2.16.84 0.1.268040.3.579.2.593 1955 Unknown [id number] 2.16.84 0.1.712827.3.579.2.593 1955 Unknown [id number] 2.16.84 0.1.217849.3.579.2.593 1955 Unknown [id number] 2.16.84 0.1.103477.3.579.2.593 1955 Unknown [id number] 2.16.84 0.1.851067.3.579.2.593 1955 Unknown [id number] 2.16.84 0.1.559709.3.579.2.593 1955 Unknown [id number] 2.16.84 0.1.738021.3.579.2.593 1955 Unknown [id number] 2.16. 840.1.600383.3.579.2.356 1955 Unknown [id number] 2.16. 840.1.650231.3.579.2.356 1955 Unknown [id number] 2.16. 840.1.032733.3.579.2.196 1955 Unknown [id number] 2.16. 840.1.631401.3.579.2.196 1955 Unknown [id number] 2.16. 840.1.379836.3.579.2.196 1955 Unknown [id number] 2.16. 840.1.795330.3.579.2.196 1955 Unknown [id number] 2.16.84 0.1.324322.3.579.2.1259 1955 Unknown [id number] 2.16.84 0.1.354506.3.579.2.1259 1955 Unknown [id number] 2.16.84 0.1.030506.3.579.2.1259 1955 Unknown [id number] 2.16.840 .1.373862.3.579.2.1259 Medicare [id number] 2.1 6.840.1.318580.19 Unknown Unknown [id number] 2.16.8 40.1.525947.3.579.2.531 Unknown [id number] 2.16.8 40.1.416968.3.579.2.531 Unknown [id number] 2.16.8 40.1.091663.3.579.2.531 Social History Date Type Detail Facility Daily caffeine consumption Daily caffeine consumption [facility] 250 DO Work Phone: Comment on above: 2-3 cups of coffee d aily.; 1/2 pack daily.; Sex Assigned At Sex Assigned At Bir th [employer] Other Start: 01-24-2021 End: 06-24-2023 Tobacco smoking status NHIS Smoker (finding) [facility] Start: 1955 Sex Assigned At Female F [facility] Functional Status Date Assessment Result Facility 07-01-2021 PHQ-9 [id number] Mild (5-9) [facility] [...] I have prescribed oral magnesium once daily. [employer] Other 03-16-2023 NotePAIN MANAGEMENT CONSULTATION CONSULTATION DATE: [...] in three months' time unless otherwise indicated.[facility] [id number] NoteCONSULTATION CONSULTATION DATE: 04/10/2022 HISTORY OF PRESENT [...] weeks ago, and she completed those in [place]. She is continuing her home exercises as [...] thereafter. Patient does agree with this plan.[facility] [id number] NoteCONSULTATION CONSULTATION DATE: 01/09/2022 HISTORY OF PRESENT [...] weeks. Patient prefers to do this in [place]. She will be followed up in the office in three months' time and was encouraged to take a multivitamin daily. Patient agrees with this plan of care. [facility] [id number] NoteCONSULTATION CONSULTATION DATE: 10/17/2021 HISTORY OF PRESENT [...] in three months' time unless otherwise indicated. [facility] Signed and Approved by: EVA ROSEN . 10/30/2021 16:23:00[facility]06-16-2022 NoteCONSULTATION PROCEDURE DATE:10/17/2021 PREOPERATIVE DIAGNOSIS: [...] will be followed up in the office. [facility] Signed and Approved by: EVA ROSEN . 10/30/2021 16:23:00[facility]01-21-2022 Evaluation note* Encounter Date Diagnosis [...] at this point no intervention is needed. [employer] Other 12-07-2021 Evaluation note* Encounter Date Diagnosis [...] - M50.123) Apr, Cardiomegaly (ICD-10 - I51.7) [employer] Other 01-15-2021 History of Present illness Narrative* [...] she will follow-up after testing is completed [facility] Work Phone: 1(153) 384-527001-10-2021 History of Present illness Narrative* Patient is [...] she will follow-up after testing is completed [facility] [employer] DO Work Phone: 1(463) 538-770808-01-2020 History general Narrative - Reported* Type Description Date Medical History TYPE II DIABETES Medical History HYPERTENSION Medical History ENLARGE HEART Surgical History CHOLECYSTECTOMY Hospitalization History PNEUMONIA 12/2019 [employer] Other chief complaint Narrative - ReportedLINCRISTINA IBARRA is being seen for a consultation [facility] Work Phone: Chirh complaint Narrative - ReportedVIDHYA IBARRA is being seen for a consultation for cardiomegaly.[facility] Work Phone: Consult note Author Yakelin Staley [facility] March 25, 2023 10:10am Note Date/Time March 24, 2023 1:49pm [facility] [place] [address] Hem/Onc Consult Note - OP Signed Patient: Vidhya Ibarra MR#: [id number] : 1955 Acct:[id number] Age/Sex: 67 / F Type: REG RCR [...] any worse than it does when touched. [facility] - Medical History Medical History: Medical History [...] for coordination of care (as documented) and [id number] counseling of patient and/or family. Dictated By: Yakelin Staley APRN DD/ 1349 Signed By: <Electronically signed by JOSE Staley> 03/25/23 1010 [facility] Work Phone: Evaluation noteNo assessment information available [facility] Work Phone: Evaluation noteNo InformationNort [email or web address] Other Evaluation note* Diagnosis Onset Date Resolution Status Leukocytosis acute Breast nodule acute Leukocytosis acute Recurrent boils acute Yeast infection acute [facility] Work Phone: History of Present illness Narrative* [...] weight loss and more importantly smoking cessation. [facility] 250 DO Work Phone: Hospital Discharge instructionsAmbulatory Orders* Referral to General Surgery Time Frame: 06/24/23, Location: None Selected [facility] Work Phone: Progress note Author Rebeca Ashraf [facility] June 24, 2023 10:45am Note Date/Time June 24, 2023 10:07am [facility] [place] [address] Cancer Center Note Signed Patient: Vidhya Ibarra MR#: [id number] : 1955 Acct:[id number] Age/Sex: 67 / F Type: REG AMB [...] % (Auto) 74.3 Lymph % (Auto) 18.0 [place] % (Auto) 5.2 Eos % (Auto) 1.7 Baso % (Auto) 0.8 Nucleat RBC Rel Count 0.1 Neut # (Auto) 10.6 H Lymph # (Auto) 2.6 [place] # (Auto) 0.7 Eos # (Auto) 0.2 [...] signed by Rebeca Ashraf MD> 06/24/23 1045 [facility] Work Phone: Summary Purpose Family History No [...] Treat Diagnosis 1 Cardiomegaly (I51.7) Referral Organization [facility]gery Referring Provider First Name Juan Referring Provider Last Name Carlos Referring Provider Specialty Neurologica l Surgery Referred Organization [facility] Referred Provider Jason Johnson Referred Address [address],[place], [place],[address] Referred Provider Specialty Cardiac Surg nicholas Referral Priority Routine General Notes Neena Estevez 021 08:49:37 AM >Received today and waiting for office notes to be lockedNeena Estevez 04/16/2021 03:27:00 PM >[facility] office request us to fax the referral to them and they will review and call patient to schedule their appointment. Referral was fax Reason Evaluate and Treat Diagnosis 1 Cervical disc disord er at C5-C6 level with radiculopathy (M50.122) Referral Organization [facility] u[facility]urgery Referring Provider First Name Juan Referring Provider Last Name Carlos Referring Provider Specialty Neurologica l Surgery Referred Organization Unknown Facility Referred Provider Specialty Physical The rapist Referral Priority Routine Chief Complaint VIDHYA FRED is being seen for an annual follow-up of.VIDHYA FRED is being seen for an annual follow-up [...] and content) DATE CREATED AUTHOR 12/03/2019 [facility] DATE CREATED AUTHOR AUTHOR'S ORGANIZ ATION 05/26/2021 [facility] DATE CREATED AUTHOR AUTHOR'S ORGANIZ ATION 10/10/2022 [facility] DATE CREATED AUTHOR AUTHOR'S ORGANIZ ATION 12/08/2022 [facility] DATE CREATED AUTHOR AUTHOR'S ORGANIZ ATION 12/09/2022 [place] DATE CREATED AUTHOR AUTHOR'S ORGANIZ ATION 07/05/2023 [facility] DATE CREATED AUTHOR AUTHOR'S ORGANIZ ATION 07/08/2023 [facility] DATE CREATED AUTHOR AUTHOR'S ORGANBEATRIZ ATION 07/14/2023 [facility] dical Specialists EPIC REASON FOR VISIT (unrecogniz ed section and content) Refer [place] Cervical PainPT f/uCKD and HTNSmoking Cessation Referral Care Teams (unrecognized sec tion and content) Team Status: Active Member Role Status Dates Shaikh Jeison MD Primary Care Provider Active Team Status: Active Member Role Status Dates Shaikh Jeison MD Primary Care Provider Active Start: June 24, 2023 Yakelin Staely APRN Attending Provider Active Start: June Alta Schmid MD Referring Provider Active Start : June 24, 2023 Team Status: Inactive Member Role Status Dates Shaikh Jeison MD Primary Care Provider Active Start: June 24, 2023 End: June 24, 2023 Rebeca Ashraf MD Attending Provider Active Start: June 24, 2023 End: June 24, 2023 Team Status: Inactive Member Role Status Tena Mchugh MD Primary Care Provider Active Alta Schmid MD Attending Provider Active Team Status: Active Member Role Status Tean Mchugh MD Primary Care Provider Active Yakelin Staley [...] BE BASED ON THE PRIMARY CLINICAL RECORDS. [employer] provides no warranty or guarantee of the accuracy or completeness of information in this document.
--- OUTSIDE RECORDS SUMMARY | 2023-07-18 08:09 | XMS_ITS | CCD ---
Author Name Unknown Address [address] [place] [address] Organization [facility] Care Team Providers Care Box Spinner Name Role Phone JeisonMisaelDial Unavailable Unavailable Unavailable Juan Gonzalez Unavailable Unavailable Unavailable NAVEEN ., DR ELIGIO Burns Admitting Unavailable HODGE ., DR ELIGIO Burns Consulting Unavailable HODGE ., DR ELIGIO Burns Attending Unavailable [facility] Primary Care Unavailable JUAN ANTONIO LOMELI Consulting Unavailable HODGE ., DR ELIGIO Burns Admitting Unavailable [facility] Primary Care Unavailable ROSEN ., EVA Consulting Unavailable HODGE ., DR ELIGIO Burns Attending Unavailable HODGE ., DR ELIGIO Burns Admitting Unavailable [facility] Primary Care Unavailable ROSEN ., EVA Consulting Unavailable HODGE ., DR ELIGIO Burns Attending Unavailable [facility] Primary Care Unavailable LAKSHMIPATHY ., NARENDRANLYLE Admitting Catrina vailable LAKSHMIPATHY ., NARENDSHIRAATH Attending Catrina vailable HODGE ., DR ELIGIO Burns Admitting Unavailable [facility] Primary Care Unavailable ROSEN ., EVA Consulting Unavailable HODGE ., DR ELIGIO Burns Attending Unavailable [facility] Primary Care Unavailable ROSEN ., EVA Consulting Unavailable HODGE ., DR ELIGIO Burns Attending Unavailable HODGE ., DR ELIGIO Burns Admitting Unavailable ROSEN ., EVA Consulting Unavailable HODGE ., DR ELIGIO Burns Admitting Unavailable NEENA MACK Primary Care Unavailable HODGE ., DR ELIGIO Burns Attending Unavailable [facility] Primary Care Unavailable WW[facility], DIAL H Consulting [...] Care Provider MD Alta Schmid Attending Provider [phone] Sharmaine, Alta Unavailable MD Misael Mchughikh Primary Care Provider [phone] MD Alta Schmid Attending Provider JOSE Staley Attending Provider MD Alta Schmid Referring Provider [phone] Neena Hi Unavailable MD Misael Mchughikh Primary Care Provider [phone] JOSE Staley Attending Provider MD Alta Schmid Referring Provider [phone] Sharmaine, Alta Admitting Unavailable Sharmaine, Alta Attending Unavailable [facility] Primary Care Unavailable Sharmaine, Alta Admitting Unavailable Sharmaine, Alta Attending Unavailable Shaikh Mchugh Primary Care Unavailable Yakelin Staley Attending Unavail able Alta Schmid Referring Unavailable Shaikh Mchugh Primary Care Unavailable Yakelin Staley Admitting Unavail able Giwadeitis , Andjustin Hawkins Attending Unavailable Giedraitis , Andrius Hawkins Attending Unavailable Gieditis , Radha Hawkins Attending Unavailable Gieditis , Andrius Hawknis Attending Unavailable EZRA MCKAY Attending Unavailable VILLA V, EZRA Attending Unavailable SHAIKH MCHUGH Referring Unavailable SHAIKH MCHUGH Attending Unavailable SHAIKH MCHUGH Attending Unavailable Allergies Allergy Classification Reported Allergen(s) Allergy Type Date of Onset Reaction(s) Facility (14 sources) predniSONE; Translations: [predniSONE] Drug Allergy 1 Hives, Unknown [facility] (2 sources) predniSONE Drug Allergy 5 [facility] Repository (1 source) predniSONE Drug Allergy 4 [facility] Repository Medications Current Medications Medication [...] 2023 2:48pm take 2 tablets by mo [facility] once daily Metoprolol Tartrate 50 MG Oral [...] 11-28-2021 Episodic Other aftercare (1 source) 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; Translations: [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] Onset: 12-04-2021 Episodic Other [...] n 07-03-2023 MM screening mammo BI w/CAD [facility] Main [place] [address] [place] [address] Mammography Report Signed Patient: Vidhya Ibarra MR#: [id number] : 1955 Acct:[id number] Age/Sex: 67 / F ADM Date: 07/03/23 Loc: Room: Type: [facility] Attending Dr: Yakelin Staley [employer]ANT Copies to: MD Yakelin Kahn APRN Mhd [...] Daniels Jr., D.O.07/03/2023 3:30 PM Dictation Location: [facility] Transcribed By: [facility] 07/03/23 1530 Dictated By: Stevan Daniels Jr, DO 07/03/23 1529 Signed By: 07/03/23 1530 Normal [facility] Basophils Auto (Bld) [#/Vol] Ordered By: Yakelin Staley on 06-22-2023 Basophils (Bld) [#/Vol] 0.1 10*3/uL 0.0-0.2 [facility] Basophils/100 WBC Auto (Bld) Ordered By: Yakelin Staley on 06-22-2023 Basophils/100 WBC (Bld) 0.8 % . [facility] Complete Blood Count Auto Di ffon 06-22-2023 Basophils (Bld) [#/Vol] 0.1 10*3/uL Normal 0.0-0.2 [facility] Comment on above: Result Comment: PERF ORMED BY: [place] [address] PATHOLOGIST APPRENTICE CARPENTER SHANTE LOMBARDI M.D. Performed By: #### C BCNO #### [address] Basophils/100 WBC (Bld) 0.8 % Normal . [facility] Comment on above: Performed By: #### C BCNO #### [facility] [address] [place] [address] [place] Eosinophils (Bld) [#/Vol] 0.2 10*3/uL Normal 0.0-0.45 [facility] Comment on above: Performed By: #### C BCNO #### [facility] [address] [place] [address] [place] Eosinophils/100 WBC (Bld) 1.7 % Normal . [facility] Comment on above: Performed By: #### C BCNO #### [address] Erythrocyte distribution width (RBC) [Ratio] 15.0 % Normal 11.9-15.3 [facility] Comment on above: Performed By: #### C BCNO #### [facility] [address] Hematocrit (Bld) [Volume fraction] 42.7 % Normal 34.0-46.4 [facility] Comment on above: Performed By: #### C BCNO #### [facility] [address] Hemoglobin (Bld) [Mass/Vol] 14.5 g/dL Normal 11.8-15.4 [facility] Comment on above: Performed By: #### C BCNO #### [facility] [address] Lymphocytes (Bld) [#/Vol] 2.6 10*3/uL Normal 1.00-4.8 [facility] Comment on above: Performed By: #### C BCNO #### [address] Lymphocytes/100 WBC (Bld) 18.0 % Normal . [facility] Comment on above: Performed By: #### C BCNO #### [facility] [address] MCH (RBC) [Entitic mass] 30.3 pg Normal 24.7-34.3 [facility] Comment on above: Performed By: #### C BCNO #### [facility] [address] MCV (RBC) [Entitic vol] 89.4 fL Normal 80-100 [facility] Comment on above: Performed By: #### C BCNO #### [facility] [address] Mean Corpuscular HGB Conc 33.9 g/dL Normal 32.0-35.0 [facility] Comment on above: Performed By: #### C BCNO #### [address] Monocytes (Bld) [#/Vol] 0.7 10*3/uL Normal 0.0-0.8 [facility] Comment on above: Performed By: #### C BCNO #### [facility] [address] [place] [address] [place] Monocytes/100 WBC (Bld) 5.2 % Normal . [facility] Comment on above: Performed By: #### C BCNO #### [facility] [address] Neutrophils (Bld) [#/Vol] 10.6 10*3/uL High 1.8-7.7 [facility] Comment on above: Performed By: #### C BCNO #### [facility] [address] Neutrophils/100 WBC (Bld) 74.3 % Normal . [facility] Comment on above: Performed By: #### C BCNO #### [facility] [address] NRBC% 0.1 /100{WBC} Normal 0-0.5 [facility] Comment on above: Performed By: #### C BCNO #### [facility] [address] Platelet mean volume (Bld) [Entitic vol] 8.3 fL Normal 6.3-10.7 [facility] Comment on above: Performed By: #### C BCNO #### [facility] [address] Platelets (Bld) [#/Vol] 262 10*3/uL Normal 150-450 [facility] Comment on above: Performed By: #### C BCNO #### [facility] [address] [place] [address] [place] RBC (Bld) [#/Vol] 4.77 10*6/uL Normal 3.60-5.00 [facility] Comment on above: Performed By: #### C BCNO #### [facility] [address] [place] [address] [place] WBC (Bld) [#/Vol] 14.3 10*3/uL High 3.8-11.6 [facility] Comment on above: Performed By: #### C BCNO #### [facility] [address] Eosinophils Auto (Bld) [#/Vo l]Ordered By: Yakelin Staley on 06-22-2023 Eosinophils (Bld) [#/Vol] 0.2 10*3/uL 0.0-0.45 [facility] Eosinophils/100 WBC Auto (Bl d)Ordered By: Yakelin Staley on 06-22-2023 Eosinophils/100 WBC (Bld) 1.7 % . [facility] Erythrocyte distribution wid th Auto (RBC) [Ratio]Ordered By: Yakelin Staley on 06-22-2023 Erythrocyte distribution width (RBC) [Ratio] 15.0 % 11.9-15.3 [facility] Hematocrit Auto (Bld) [Volum e fraction]Ordered By: Yakelin Staley on 06-22-2023 Hematocrit (Bld) [Volume fraction] 42.7 % 34.0-46.4 [facility] Hemoglobin [Mass/volume] in BloodOrdered By: Yakelin Staley on 06-22-2023 Hemoglobin (Bld) [Mass/Vol] 14.5 g/dL 11.8-15.4 [facility] Leukocytes [#/volume] correc janet for nucleated erythrocytes in Blood by Automated counOrdered By: Yakelin Staley on 06-22-2023 WBC corrected for nucl RBC Auto (Bld) [#/Vol] 14.3 10*3/uL 3.8-11.6 [facility] Lymphocytes Auto (Bld) [#/Vo l]Ordered By: Yakelin Staley on 06-22-2023 Lymphocytes (Bld) [#/Vol] 2.6 10*3/uL 1.00-4.8 [facility] Lymphocytes/100 WBC Auto (Bl d)Ordered By: Yakelin Staley on 06-22-2023 Lymphocytes/100 WBC (Bld) 18.0 % . [facility] MCH Auto (RBC) [Entitic mass ]Ordered By: Yakelin Staley on 06-22-2023 MCH (RBC) [Entitic mass] 30.3 pg 24.7-34.3 [facility] MCHC Auto (RBC) [Mass/Vol]Or dered By: Yakelin Staley on 06-22-2023 MCHC (RBC) [Mass/Vol] 33.9 g/dL 32.0-35.[address] [facility] MCV Auto (RBC) [Entitic vol] Ordered By: Yakelin Staley on 06-22-2023 MCV (RBC) [Entitic vol] 89.4 fL 80-100 [facility] Monocytes Auto (Bld) [#/Vol] Ordered By: Yakelin Staley on 06-22-2023 Monocytes (Bld) [#/Vol] 0.7 10*3/uL 0.0-0.8 [facility] Monocytes/100 WBC Auto (Bld) Ordered By: Yakelin Staley on 06-22-2023 Monocytes/100 WBC (Bld) 5.2 % . [facility] Neutrophils Auto (Bld) [#/Vo l]Ordered By: Yakelin Staley on 06-22-2023 Neutrophils (Bld) [#/Vol] 10.6 10*3/uL 1.8-7.7 [facility] Neutrophils/100 WBC Auto (Bl d)Ordered By: Yakelin Staley on 06-22-2023 Neutrophils/100 WBC (Bld) 74.3 % . [facility] Nucleated erythrocytes [Pres ence] in Blood by Automated countOrdered By: Yakelin Staley on 06-22-2023 Nucleated RBC Auto Ql (Bld) 0.1 /100{WBC} 0-0.5 [facility] Platelet mean volume Auto (B ld) [Entitic vol]Ordered By: Yakelin Staley on 06-22-2023 Platelet mean volume (Bld) [Entitic vol] 8.3 fL 6.3-10.7 [facility] Platelets Auto (Bld) [#/Vol] Ordered By: Yakelin Staley on 06-22-2023 Platelets (Bld) [#/Vol] 262 10*3/uL 150-450 [facility] RBC Auto (Bld) [#/Vol]Ordere d By: Yakelin Staley on 06-22-2023 RBC (Bld) [#/Vol] 4.77 10*6/uL 3.60-5.00 [facility] WBC Auto (Bld) [#/Vol]Ordere d By: Yakelin Staley on 06-22-2023 WBC (Bld) [#/Vol] 14.3 10*3/uL 3.8-11.6 [facility] Complete Blood Count Auto Di ffon 03-24-2023 Basophils (Bld) [#/Vol] 0.1 10*3/uL Normal 0.0-0.2 [facility] Comment on above: Result Comment: PERF ORMED BY: [place] [address] PATHOLOGIST APPRENTICE CARPENTER SHANTE LOMBARDI M.D. Performed By: #### C BC #### [address] Basophils/100 WBC (Bld) 0.7 % Normal . [facility] Comment on above: Performed By: #### C BC #### [address] Eosinophils (Bld) [#/Vol] 0.4 10*3/uL Normal 0.0-0.45 [facility] Comment on above: Performed By: #### C BC #### [address] Eosinophils/100 WBC (Bld) 2.2 % Normal . [facility] Comment on above: Performed By: #### C BC #### [address] Erythrocyte distribution width (RBC) [Ratio] 14.4 % Normal 11.9-15.3 [facility] Comment on above: Performed By: #### C BC #### [address] Hematocrit (Bld) [Volume fraction] 42.6 % Normal 34.0-46.4 [facility] Comment on above: Performed By: #### C BC #### [address] Hemoglobin (Bld) [Mass/Vol] 14.2 g/dL Normal 11.8-15.4 [facility] Comment on above: Performed By: #### C BC #### [facility] [address] [place] [address] [place] Lymphocytes (Bld) [#/Vol] 2.9 10*3/uL Normal 1.00-4.8 [facility] Comment on above: Performed By: #### C BC #### [facility] [address] Lymphocytes/100 WBC (Bld) 17.3 % Normal . [facility] Comment on above: Performed By: #### C BC #### [facility] [address] MCH (RBC) [Entitic mass] 30.2 pg Normal 24.7-34.3 [facility] Comment on above: Performed By: #### C BC #### [address] MCV (RBC) [Entitic vol] 90.7 fL Normal 80-100 [facility] Comment on above: Performed By: #### C BC #### [address] Mean Corpuscular HGB Conc 33.3 g/dL Normal 32.0-35.0 [facility] Comment on above: Performed By: #### C BC #### [address] Monocytes (Bld) [#/Vol] 1.1 10*3/uL High 0.0-0.8 [facility] Comment on above: Performed By: #### C BC #### [place] [address] [place] Monocytes/100 WBC (Bld) 6.4 % Normal . [facility] Comment on above: Performed By: #### C BC #### [address] Neutrophils (Bld) [#/Vol] 12.2 10*3/uL High 1.8-7.7 [facility] Comment on above: Performed By: #### C BC #### [facility] [address] Neutrophils/100 WBC (Bld) 73.4 % Normal . [facility] Comment on above: Performed By: #### C BC #### [facility] [address] NRBC% 0.1 /100{WBC} Normal 0-0.5 [facility] Comment on above: Performed By: #### C BC #### [address] Platelet mean volume (Bld) [Entitic vol] 8.5 fL Normal 6.3-10.7 [facility] Comment on above: Performed By: #### C BC #### [address] Platelets (Bld) [#/Vol] 302 10*3/uL Normal 150-450 [facility] Comment on above: Performed By: #### C BC #### [address] RBC (Bld) [#/Vol] 4.70 10*6/uL Normal 3.60-5.00 [facility] Comment on above: Performed By: #### C BC #### [address] WBC (Bld) [#/Vol] 16.7 10*3/uL High 3.8-11.6 [facility] Comment on above: Performed By: #### C BC #### [address] Albumin [Mass/volume] in Ser um or Plasma by Bromocresol green (BCG) dye binding methoOrdered By: Alta Schmid on 03-04-2023 Albumin BCG dye [Mass/Vol] 4.1 g/dL 3.5-5.7 [facility] Automated erythrocytes count in urine sediment (number/area)Ordered By: Alta Schmid on 03-04-2023 RBC Auto (Urine sed) [#/Area] 0-1 [HPF] 0-4 [facility] Automated leukocytes count i n urine sediment (number/area)Ordered By: Alta Schmid on 03-04-2023 WBC Auto (Urine sed) [#/Area] 5-9 [HPF] 0-4 [facility] Bilirubin Test strip Ql (U)O rdered By: Alta Schmid on 03-04-2023 Bilirubin Ql (U) Negative Negative [facility] Calcium [Mass/volume] in Ser um or PlasmaOrdered By: Alta Schmid on 03-04-2023 Calcium [Mass/Vol] 9.2 mg/dL 8.6-10.3 [facility] Carbon dioxide, total [Moles /volume] in Serum or PlasmaOrdered By: Alta Schmid on 03-04-2023 CO2 [Moles/Vol] 25.4 mmol/L 21.0-31.0 [facility] Chloride [Moles/volume] in S carlos or PlasmaOrdered By: Alta Schmid on 03-04-2023 Chloride [Moles/Vol] 104 mmol/L 98-107 [facility] Color Auto (U)Ordered By: Ab richard Schmid on 03-04-2023 Color (U) Yellow Yellow [facility] Creatinine [Mass/volume] in Serum or PlasmaOrdered By: Alta Schmid on 03-04-2023 Creatinine [Mass/Vol] 1.59 mg/dL 0.60-1.[address] [facility] Creatinine [Mass/volume] in UrineOrdered By: Alta Schmid on 03-04-2023 Creatinine (U) [Mass/Vol] 100.0 mg/dL 11.0-20.0 [facility] Dipstick and Microscopicon 1 05-04-2022 Appearance (U) Clear Normal Clear [facility] Comment on above: Order Comment: Blancao n for Exam Chronic kidney disease, stage III (moderate);Diabetes mellit Name Collection Type:: Clean-Voided Midstream Performed By: #### C UU, ADDONUAPLUS #### [address] Bacteria,Urine None Seen Normal None Seen [facility] Comment on above: Order Comment: Reaso n for Exam Chronic kidney disease, stage III (moderate);Diabetes mellit Name Collection Type:: Clean-Voided Midstream Performed By: #### C UU, ADDONUAPLUS #### [facility] [address] [place] [address] [place] Bilirubin,Urine Negative Normal Negative [facility] Comment on above: Order Comment: Reaso n for Exam Chronic kidney disease, stage III (moderate);Diabetes mellit Name Collection Type:: Clean-Voided Midstream Performed By: #### C UU, ADDONUAPLUS #### [facility] [address] [place] [address] [place] Color (U) Yellow Normal Yellow [facility] Comment on above: Order Comment: Reaso n for Exam Chronic kidney disease, stage III (moderate);Diabetes mellit Name Collection Type:: Clean-Voided Midstream Performed By: #### C UU, ADDONUAPLUS #### [facility] [address] [place] [address] [place] Glucose Ql (U) Normal Normal Normal [facility] Comment on above: Order Comment: Reaso n for Exam Chronic kidney disease, stage III (moderate);Diabetes mellit Name Collection Type:: Clean-Voided Midstream Performed By: #### C UU, ADDONUAPLUS #### [facility] [address] [place] [address] [place] Hyaline Casts,Urine 0-8 Normal 0-8 [facility] Comment on above: Order Comment: Reaso n for Exam Chronic kidney disease, stage III (moderate);Diabetes mellit Name Collection Type:: Clean-Voided Midstream Result Comment: PERF ORMED BY: [place] [address] PATHOLOGIST APPRENTICE CARPENTER SHANTE LOMBARDI M.D. Performed By: #### C UU, ADDONUAPLUS #### [facility] [address] [place] [address] [place] Ketones Ql (U) Negative Normal Negative [facility] Comment on above: Order Comment: Reaso n for Exam Chronic kidney disease, stage III (moderate);Diabetes mellit Name Collection Type:: Clean-Voided Midstream Performed By: #### C UU, ADDONUAPLUS #### [facility] [address] [place] [address] Leukocyte esterase Test strip Ql (U) 1+ High Negative [facility] Comment on above: Order Comment: Reaso n for Exam Chronic kidney disease, stage III (moderate);Diabetes mellit Name Collection Type:: Clean-Voided Midstream Performed By: #### C UU, ADDONUAPLUS #### [facility] [address] [place] [address] Nitrite,Urine Negative Normal Negative [facility] Comment on above: Order Comment: Reaso n for Exam Chronic kidney disease, stage III (moderate);Diabetes mellit Name Collection Type:: Clean-Voided Midstream Performed By: #### C UU, ADDONUAPLUS #### [address] Occult Blood,Urine Negative Normal Negative [facility] Comment on above: Order Comment: Reaso n for Exam Chronic kidney disease, stage III (moderate);Diabetes mellit Name Collection Type:: Clean-Voided Midstream Performed By: #### C UU, ADDONUAPLUS #### [facility] [address] [place] [address] pH (U) 5.5 [pH] Normal 5.0-9.0 [facility] Comment on above: Order Comment: Reaso n for Exam Chronic kidney disease, stage III (moderate);Diabetes mellit Name Collection Type:: Clean-Voided Midstream Performed By: #### C UU, ADDONUAPLUS #### [facility] [address] [place] [address] [place] Protein,Urine Negative Normal Negative [facility] Comment on above: Order Comment: Reaso n for Exam Chronic kidney disease, stage III (moderate);Diabetes mellit Name Collection Type:: Clean-Voided Midstream Performed By: #### C UU, ADDONUAPLUS #### [facility] [address] [place] [address] [place] RBC LM.HPF (Urine sed) [#/Area] 0 /[HPF] Normal 0-4 [facility] Comment on above: Order Comment: Reaso n for Exam Chronic kidney disease, stage III (moderate);Diabetes mellit Name Collection Type:: Clean-Voided Midstream Performed By: #### C UU, ADDONUAPLUS #### [facility] [address] [place] [address] Specificy [place],Urine 1.014 Normal 1.001-1.030 [facility] Comment on above: Order Comment: Reaso n for Exam Chronic kidney disease, stage III (moderate);Diabetes mellit Name Collection Type:: Clean-Voided Midstream Performed By: #### C UU, ADDONUAPLUS #### [facility] [address] [place] [address] Squamous Epithelial Cell,Urine 5-9 High 0-2 [facility] Comment on above: Order Comment: Reaso n for Exam Chronic kidney disease, stage III (moderate);Diabetes mellit Name Collection Type:: Clean-Voided Midstream Performed By: #### C UU, ADDONUAPLUS #### [facility] [address] [place] [address] Urobilinogen,Urine Normal Normal Normal [facility] Comment on above: Order Comment: Reaso n for Exam Chronic kidney disease, stage III (moderate);Diabetes mellit Name Collection Type:: Clean-Voided Midstream Performed By: #### C UU, ADDONUAPLUS #### [facility] [address] [place] [address] WBC,Urine 5-9 High 0-4 [facility] Comment on above: Order Comment: Reaso n for Exam Chronic kidney disease, stage III (moderate);Diabetes mellit Name Collection Type:: Clean-Voided Midstream Performed By: #### C UU, ADDONUAPLUS #### [facility] [address] [place] [address] Erythrocyte distribution wid th Auto (RBC) [Ratio]Ordered By: Alta Schmid on 03-04-2023 Erythrocyte distribution width (RBC) [Ratio] 14.8 % 11.9-15.3 [facility] Glucose [Mass/volume] in Ser um or PlasmaOrdered By: Alta Schmid on 03-04-2023 Glucose [Mass/Vol] 232 mg/dL 70-100 [facility] Comment on above: ADA recommended refe rence rangeRandom Glucose Reference Range is dependent on time and content of last meal. Glucose of more than 200 mg/dL in a nonstressed, ambulatory subject supports the diagnosis of Diabetes Mellitus. Hematocrit Auto (Bld) [Volum e fraction]Ordered By: Alta Schmid on 03-04-2023 Hematocrit (Bld) [Volume fraction] 42.6 % 34.0-46.4 [facility] Hemoglobin [Mass/volume] in BloodOrdered By: Alta Schmid on 03-04-2023 Hemoglobin (Bld) [Mass/Vol] 14.5 g/dL 11.8-15.4 [facility] Hemogram CBC Without Diffon 03-04-2023 Erythrocyte distribution width (RBC) [Ratio] 14.8 % Normal 11.9-15.3 [facility] Comment on above: Order Comment: Reaso n for Exam Chronic kidney disease, stage III (moderate);Diabetes mellit Performed By: #### C BCNO #### [facility] [address] [place] [address] Hematocrit (Bld) [Volume fraction] 42.6 % Normal 34.0-46.4 [facility] Comment on above: Order Comment: Reaso n for Exam Chronic kidney disease, stage III (moderate);Diabetes mellit Performed By: #### C BCNO #### [facility] [address] Hemoglobin (Bld) [Mass/Vol] 14.5 g/dL Normal 11.8-15.4 [facility] Comment on above: Order Comment: Reaso n for Exam Chronic kidney disease, stage III (moderate);Diabetes mellit Performed By: #### C BCNO #### [facility] [address] [place] [address] [place] MCH (RBC) [Entitic mass] 31.1 pg Normal 24.7-34.3 [facility] Comment on above: Order Comment: Reaso n for Exam Chronic kidney disease, stage III (moderate);Diabetes mellit Performed By: #### C BCNO #### [address] MCV (RBC) [Entitic vol] 91.6 fL Normal 80-100 [facility] Comment on above: Order Comment: Reaso n for Exam Chronic kidney disease, stage III (moderate);Diabetes mellit Performed By: #### C BCNO #### [address] Mean Corpuscular HGB Conc 34.0 g/dL Normal 32.0-35.0 [facility] Comment on above: Order Comment: Reaso n for Exam Chronic kidney disease, stage III (moderate);Diabetes mellit Performed By: #### C BCNO #### [address] Platelet mean volume (Bld) [Entitic vol] 8.5 fL Normal 6.3-10.7 [facility] Comment on above: Order Comment: Reaso n for Exam Chronic kidney disease, stage III (moderate);Diabetes mellit Result Comment: PERF ORMED BY: [place] [address] PATHOLOGIST APPRENTICE CARPENTER SHANTE LOMBARDI M.D. Performed By: #### C BCNO #### [address] Platelets (Bld) [#/Vol] 327 10*3/uL Normal 150-450 [facility] Comment on above: Order Comment: Reaso n for Exam Chronic kidney disease, stage III (moderate);Diabetes mellit Performed By: #### C BCNO #### [address] RBC (Bld) [#/Vol] 4.65 10*6/uL Normal 3.60-5.00 [facility] Comment on above: Order Comment: Reaso n for Exam Chronic kidney disease, stage III (moderate);Diabetes mellit Performed By: #### C BCNO #### [place] [address] [place] WBC (Bld) [#/Vol] 16.2 10*3/uL High 3.8-11.6 [facility] Comment on above: Order Comment: Reaso n for Exam Chronic kidney disease, stage III (moderate);Diabetes mellit Performed By: #### C BCNO #### [facility] [address] Ketones Auto test strip (U) [Mass/Vol]Ordered By: Alta Schmid on 03-04-2023 Ketones (U) [Mass/Vol] Negative Negative [facility] Laboratory - UrinalysisOrder ed By: Alta Schmid on 03-04-2023 Hyaline casts LM Ql (Urine sed) 0-8 [LPF] 0-8 [facility] Leukocytes [#/volume] correc janet for nucleated erythrocytes in Blood by Automated counOrdered By: Alta Schmid on 03-04-2023 WBC corrected for nucl RBC Auto (Bld) [#/Vol] 16.2 10*3/uL 3.8-11.6 [facility] MCH Auto (RBC) [Entitic mass ]Ordered By: Alta Schmid on 03-04-2023 MCH (RBC) [Entitic mass] 31.1 pg 24.7-34.3 [facility] MCHC Auto (RBC) [Mass/Vol]Or dered By: Alta Schmid on 03-04-2023 MCHC (RBC) [Mass/Vol] 34.0 g/dL 32.0-35.[address] [facility] MCV Auto (RBC) [Entitic vol] Ordered By: Alta Schmid on 03-04-2023 MCV (RBC) [Entitic vol] 91.6 fL 80-100 [facility] Magnesiumon 03-04-2023 Magnesium [Mass/Vol] 1.4 mg/dL Low 1.9-2.7 [facility] Comment on above: Order Comment: Reaso n for Exam Chronic kidney disease, stage III (moderate);Diabetes mellit Performed By: #### R ENAL, MG, [id number], URIC #### [facility] [address] Magnesium [Mass/volume] in S carlos or PlasmaOrdered By: Alta Schmid on 03-04-2023 Magnesium [Mass/Vol] 1.4 mg/dL 1.9-2.7 [facility] Nitrite Test strip Ql (U)Ord ered By: Alta Schmid on 03-04-2023 Nitrite Ql (U) Negative Negative [facility] No Panel InformationOrdered By: Alta Schmid on 03-04-2023 Estimated GFR (CKD-EPI) 35.395 mL/Min [facility] Creatinine Clearance (Chem N/A [facility] Parathyrin.intact [Mass/volu me] in Serum or PlasmaOrdered By: Alta Schmid on 03-04-2023 Parathyrin.intact [Mass/Vol] 87.0 pg/mL [facility] Parathyroid Hormone Intacton 03-04-2023 Parathyroid Hormone Intact 87.0 pg/mL Normal [facility] Comment on above: Order Comment: Reaso n for Exam Chronic kidney disease, stage III (moderate);Diabetes mellit Result Comment: PERF ORMED BY: [place] [address] PATHOLOGIST APPRENTICE [employer] SHANTE LOMBARDI M.D. Performed By: #### C BCNO #### [address] Phosphate [Mass/volume] in S carlos or PlasmaOrdered By: Alta Schmid on 03-04-2023 Phosphate [Mass/Vol] 4.0 mg/dL 3.7-7.2 [facility] Platelet mean volume Auto (B ld) [Entitic vol]Ordered By: Alta Schmid on 03-04-2023 Platelet mean volume (Bld) [Entitic vol] 8.5 fL 6.3-10.7 [facility] Platelets Auto (Bld) [#/Vol] Ordered By: Alta Schmid on 03-04-2023 Platelets (Bld) [#/Vol] 327 10*3/uL 150-450 [facility] Potassium [Moles/volume] in Serum or PlasmaOrdered By: Alta Schmid on 03-04-2023 Potassium [Moles/Vol] 4.9 mmol/L 3.5-5.[address] [facility] Protein Auto test strip (U) [Mass/Vol]Ordered By: Alta Schmid on 03-04-2023 Protein (U) [Mass/Vol] Negative Negative Fi [facility] Protein Creat Ratio Ur Rando mon 03-04-2023 Creatinine, Urine (Random) 100.0 mg/dL High 11.0-20.0 [facility] Comment on above: Order Comment: Reaso n for Exam Chronic kidney disease, stage III (moderate);Diabetes mellit Performed By: #### P ROCRERAT #### [facility] [address] [place] [address] [place] Protein (U) [Mass/Vol] 14 mg/dL High 0-9 [facility] Comment on above: Order Comment: Reaso n for Exam Chronic kidney disease, stage III (moderate);Diabetes mellit Performed By: #### P ROCRERAT #### [facility] [address] Urine Protein/Creatinine Ratio 140 mg/g{Cre} Normal 0-200 [facility] Comment on above: Order Comment: Reaso n for Exam Chronic kidney disease, stage III (moderate);Diabetes mellit Result Comment: PERF ORMED BY: [place] [address] PATHOLOGIST APPRENTICE [employer] SHANTE LOMBARDI M.D. Performed By: #### P ROCRERAT #### [facility] [address] [place] [address] [place] Protein [Mass/volume] in Uri neOrdered By: Alta Schmid on 03-04-2023 Protein (U) [Mass/Vol] 14 mg/dL 0-9 [facility] RBC Auto (Bld) [#/Vol]Ordere d By: Alta Schmid on 03-04-2023 RBC (Bld) [#/Vol] 4.65 10*6/uL 3.60-5.00 [facility] Renal Function Panelon 03-04 Albumin [Mass/Vol] 4.1 g/dL Normal 3.5-5.7 [facility] Comment on above: Order Comment: Reaso n for Exam Chronic kidney disease, stage III (moderate);Diabetes mellit Performed By: #### R ENAL, MG, [id number], URIC #### [facility] [address] [place] [address] Anion gap [Moles/Vol] 13.5 mmol/L Normal 6.0-15.0 [facility] Comment on above: Order Comment: Reaso n for Exam Chronic kidney disease, stage III (moderate);Diabetes mellit Performed By: #### R ENAL, MG, [id number], URIC #### [facility] [address] [place] [address] Calcium [Mass/Vol] 9.2 mg/dL Normal 8.6-10.3 [facility] Comment on above: Order Comment: Reaso n for Exam Chronic kidney disease, stage III (moderate);Diabetes mellit Performed By: #### R ENAL, MG, [id number], URIC #### [facility] [address] [place] [address] Chloride [Moles/Vol] 104 mmol/L Normal 98-107 [facility] Comment on above: Order Comment: Reaso n for Exam Chronic kidney disease, stage III (moderate);Diabetes mellit Performed By: #### R ENAL, MG, [id number], URIC #### [facility] [address] [place] [address] CO2 [Moles/Vol] 25.4 mmol/L Normal 21.0-31.0 [facility] Comment on above: Order Comment: Reaso n for Exam Chronic kidney disease, stage III (moderate);Diabetes mellit Performed By: #### R ENAL, MG, [id number], URIC #### [facility] [address] [place] [address] Creatinine [Mass/Vol] 1.59 mg/dL High 0.60-1.[address] [facility] Comment on above: Order Comment: Reaso n for Exam Chronic kidney disease, stage III (moderate);Diabetes mellit Performed By: #### R ENAL, MG, [id number], URIC #### [facility] [address] [place] [address] [place] GFR/1.73 sq M.predicted MDRD (S/P/Bld) [Vol rate/Area] 35.395 mL/min/{1.73_m2} Normal [facility] Comment on above: Order Comment: Reaso n for Exam Chronic kidney disease, stage III (moderate);Diabetes mellit Performed By: #### R ENAL, MG, [id number], URIC #### [facility] [address] Glucose [Mass/Vol] 232 mg/dL High 70-100 [facility] Comment on above: Order Comment: Reaso n for Exam Chronic kidney disease, stage III (moderate);Diabetes mellit Result Comment: [facility] Glucose Reference Range is dependent on time and content of last meal. Glucose of more than 200 mg/dL in a nonstressed, ambulatory subject supports the diagnosis of Diabetes Mellitus. ADA recommended reference range Performed By: #### R ENAL, MG, [id number], URIC #### [facility] [address] [place] [address] Phosphate [Mass/Vol] 4.0 mg/dL Normal 3.7-7.2 [facility] Comment on above: Order Comment: Reaso n for Exam Chronic kidney disease, stage III (moderate);Diabetes mellit Performed By: #### R ENAL, MG, [id number], URIC #### [facility] [address] [place] [address] [place] Potassium [Moles/Vol] 4.9 mmol/L Normal 3.5-5.[address] [facility] Comment on above: Order Comment: Reaso n for Exam Chronic kidney disease, stage III (moderate);Diabetes mellit Performed By: #### R ENAL, MG, [id number], URIC #### [facility] [address] [place], [place] [id number] [place] Sodium [Moles/Vol] 138 mmol/L Normal 136-145 [facility] Comment on above: Order Comment: Reaso n for Exam Chronic kidney disease, stage III (moderate);Diabetes mellit Performed By: #### R ENAL, MG, [id number], URIC #### [facility] [address] Urea nitrogen [Mass/Vol] 42 mg/dL High 11-25 [facility] Comment on above: Order Comment: Reaso n for Exam Chronic kidney disease, stage III (moderate);Diabetes mellit Performed By: #### R ENAL, MG, [id number], URIC #### [facility] [address] Serum or plasma anion gap de terminationOrdered By: Alta Sharmaine on 03-04-2023 Anion gap [Moles/Vol] 13.5 mmol/L 6.0-15.0 [facility] Sodium [Moles/volume] in Ser um or PlasmaOrdered By: Alta Sharmaine on 03-04-2023 Sodium [Moles/Vol] 138 mmol/L 136-145 [facility] Specific gravity Auto test s trip (U) [Rel density]Ordered By: Alta Sharmaine on 03-04-2023 Specific gravity (U) [Rel density] 1.014 1.001-1.030 [facility] Squamous epithelial cells de tection in urine sediment by light microscopyOrdered By: Alta Comerdir on 03-04-2023 Epithelial cells.squamous LM Ql (Urine sed) 5-9 [HPF] 0-2 [facility] Urate [Mass/volume] in Serum or PlasmaOrdered By: Alta Sharmaine on 03-04-2023 Urate [Mass/Vol] 10.7 mg/dL 2.3-6.6 [facility] Urea nitrogen [Mass/volume] in Serum or PlasmaOrdered By: Alta Sharmaine on 03-04-2023 Urea nitrogen [Mass/Vol] 42 mg/dL 11-25 [facility] Uric Acidon 03-04-2023 Urate [Mass/Vol] 10.7 mg/dL High 2.3-6.6 [facility] Comment on above: Order Comment: Reaso n for Exam Chronic kidney disease, stage III (moderate);Diabetes mellit Performed By: #### R ENAL, MG, [id number], URIC #### [facility] [address] [place] [id number] [place] Urine Cultureon 03-04-2023 Bacteria identified Cx Nom (U) 75,000 colonies/ml mixed bacterial skin contaminants 2 Days PERFORMED BY: [place] [address] PATHOLOGIST APPRENTICE [employer] SHANTE LOMBARDI M.D. Normal [facility] Comment on above: Performed By: #### C UU, ADDONUAPLUS #### [facility] [address] [place], [place] [id number] [facility] Urine bacteria detection by automated methodOrdered By: Alta Schmid on 03-04-2023 Bacteria Auto Ql (U) None seen None Seen [facility] Urine clarity by refractomet ry automatedOrdered By: Alta Schmid on 03-04-2023 Clarity Refractometry automated (U) Clear Clear [facility] Urine culture routineOrdered By: Alta Schmid on 03-04-2023 Bacteria identified Cx Nom (U) 2 Days [facility] Urine glucose measurement by automated test strip (mass/volume)Ordered By: Alta Schmid on 03-04-2023 Glucose Auto test strip (U) [Mass/Vol] Normal mg/dL Normal [facility] Urine hemoglobin detection b y automated test stripOrdered By: Alta Schmid on 03-04-2023 Hemoglobin Auto test strip Ql (U) Negative Negative [facility] Urine leukocyte esterase det ection by automated test stripOrdered By: Alta Schmid on 03-04-2023 Leukocyte esterase Auto test strip Ql (U) 1+ Negative [facility] Urine protein/creatinine rat ioOrdered By: Alta Schmid on 03-04-2023 Protein/Creatinine (U) [Ratio] 140 mg/g{Cre} 0-200 [facility] Urobilinogen Auto test strip (U) [Mass/Vol]Ordered By: Alta Schmid on 03-04-2023 Urobilinogen (U) [Mass/Vol] Normal mg/dL Normal [facility] Vitamin D 25 Hydroxy Totalon 03-04-2023 Vitamin D 25 Hydroxy Total 41.9 ng/mL Normal 30-100 [facility] Comment on above: Order [...] practice guideline. JCEM. 2010; 96(7):191-. PERFORMED BY: [facility] [address] [place] [address] PATHOLOGIST APPRENTICE [employer]PENTER SHANTE LOMBARDI M.D. Performed By: #### R ENAL, MG, [id number], URIC #### [address] Vitamin D+Metabolites [Mass/ volume] in Serum or PlasmaOrdered By: Alta Schmid on 03-04-2023 Vitamin D+Metabolites [Mass/Vol] 41.9 ng/mL 30-100 [facility] Comment on above: VITAMIN D STATUS 25( [place])VITAMIN D RANGE (ng/mL) Deficient <20 Insufficient 20 to <30Sufficient 30 to 100Reference: Isai Rich, Randa WALSH, et al. Evaluation,treatment, and prevention of vitamin D deficiency; an Endocrine Society clinical practice guideline. JCEM. 2010; 96(7):191-. pH Auto test strip (U)Ordere d By: Alta Schmid on 03-04-2023 pH (U) 5.5 [pH] 5.0-9.0 [facility] Office Visit (Cardiology)on 12-08-2022 Follow-up visit Diagnoses/Problems Assessed Hypertension (401.9) (I10) Current smoker (305.1) (F17.200) 1/2 pack daily. Diabetes (250.00) (E11.9) Class 1 obesity with body mass index (BMI) of 32.0 to 32.9 in adult (278.00,V85.32) (E66.9,Z68.32) Orders Class 1 obesity with body mass index (BMI) of 32.0 to 32.9 in adult Healthy Weight Tips; Status:Complete; Done: [id number] Some eating tips that can help you lose weight.; Status:Complete; Done: [id number] SocHx: Current smoker Tobacco Use Screening; Status:Complete; Done: [id number] You need to stop smoking. Though it is not easy, more than half of all adult smokers have quit. We encourage you to write down all the reasons you should quit smoking and set a quit date for yourself. Ask us how we can help. You may also call 3-404-MMCXKydaemosNOW for free resources and assistance.; Status:Complete; Done: [id number] Patient Instructions Please bring all medicines, vitamins, [...] negative for complaint. Vitals Vital Signs Recorded: [id number] 08:41AM Heart Rate66, R Radial Vkvzjkmk222, RUE, Sitting Wgiraiimu39, RUE, Sitting Height5 ft 3 in Lassbu397 lb BMI Eixroksuna51.95 kg/m2 BSA Calculated1.88 Tobacco Usea) Yes Patient [...] a) No falls within the last year -[facility] [facility] [address] DO Work Phone: Tobacco use status CP a) Yes M [facility] [facility] [address] DO Work Phone: Tobacco Screening. Yes -[facility] [facility] [address] DO Work Phone: Dipstick and Microscopicon 0 09-18-2022 Appearance (U) Cloudy Critically abnormal Clear [facility] Comment on above: Order Comment: Reaso n for Exam Chronic kidney disease, stage III (moderate);Diabetes mellit Performed By: #### C BCNO #### [facility] [address] [place] [id number] [place] Bacteria,Urine 4+ High None Seen [facility] Comment on above: Order Comment: Reaso n for Exam Chronic kidney disease, stage III (moderate);Diabetes mellit Performed By: #### C BCNO #### [facility] [address] [place] [id number] [place] Bilirubin,Urine Negative Normal Negative [facility] Comment on above: Order Comment: Reaso n for Exam Chronic kidney disease, stage III (moderate);Diabetes mellit Performed By: #### C BCNO #### [facility] [address] [place] [address] [place] Color (U) Yellow Normal Yellow [facility] Comment on above: Order Comment: Reaso n for Exam Chronic kidney disease, stage III (moderate);Diabetes mellit Performed By: #### C BCNO #### [facility] [address] [place] [address] [place] Glucose Ql (U) Normal Normal Normal [facility] Comment on above: Order Comment: Reaso n for Exam Chronic kidney disease, stage III (moderate);Diabetes mellit Performed By: #### C BCNO #### [facility] [address] [place] [address] [place] Hyaline Casts,Urine 9-19 High 0-8 [facility] Comment on above: Order Comment: Reaso n for Exam Chronic kidney disease, stage III (moderate);Diabetes mellit Result Comment: PERF ORMED BY: [place] [address] PATHOLOGIST APPRENTICE [employer] SHANTE LOMBARDI M.D. Performed By: #### C BCNO #### [address] Ketones Ql (U) Negative Normal Negative [facility] Comment on above: Order Comment: Reaso n for Exam Chronic kidney disease, stage III (moderate);Diabetes mellit Performed By: #### C BCNO #### [address] Leukocyte esterase Test strip Ql (U) 3+ High Negative [facility] Comment on above: Order Comment: Reaso n for Exam Chronic kidney disease, stage III (moderate);Diabetes mellit Performed By: #### C BCNO #### [address] Nitrite,Urine Positive High Negative [facility] Comment on above: Order Comment: Reaso n for Exam Chronic kidney disease, stage III (moderate);Diabetes mellit Performed By: #### C BCNO #### [address] Occult Blood,Urine Negative Normal Negative [facility] Comment on above: Order Comment: Reaso n for Exam Chronic kidney disease, stage III (moderate);Diabetes mellit Performed By: #### C BCNO #### [facility] [address] [place] [address] [place] pH (U) 6.0 [pH] Normal 5.0-9.0 [facility] Comment on above: Order Comment: Reaso n for Exam Chronic kidney disease, stage III (moderate);Diabetes mellit Performed By: #### C BCNO #### [address] Protein,Urine Negative Normal Negative [facility] Comment on above: Order Comment: Reaso n for Exam Chronic kidney disease, stage III (moderate);Diabetes mellit Performed By: #### C BCNO #### [address] RBC,Urine None Seen Normal 0-4 [facility] Comment on above: Order Comment: Reaso n for Exam Chronic kidney disease, stage III (moderate);Diabetes mellit Performed By: #### C BCNO #### [address] Specificy [place],Urine 1.013 Normal 1.001-1.030 [facility] Comment on above: Order Comment: Reaso n for Exam Chronic kidney disease, stage III (moderate);Diabetes mellit Performed By: #### C BCNO #### [address] Squamous Epithelial Cell,Urine 1-2 Normal 0-2 [facility] Comment on above: Order Comment: Reaso n for Exam Chronic kidney disease, stage III (moderate);Diabetes mellit Performed By: #### C BCNO #### [address] Urobilinogen,Urine Normal Normal Normal [facility] Comment on above: Order Comment: Reaso n for Exam Chronic kidney disease, stage III (moderate);Diabetes mellit Performed By: #### C BCNO #### [address] WBC,Urine 50-100 High 0-4 [facility] Comment on above: Order Comment: Reaso n for Exam Chronic kidney disease, stage III (moderate);Diabetes mellit Performed By: #### C BCNO #### [address] Hemogram CBC Without Diffon 09-18-2022 Erythrocyte distribution width (RBC) [Ratio] 15.4 % High 11.9-15.3 [facility] Comment on above: Order Comment: Reaso n for Exam Chronic kidney disease, stage III (moderate);Diabetes mellit Performed By: #### C BCNO #### [address] Hematocrit (Bld) [Volume fraction] 41.9 % Normal 34.0-46.4 [facility] Comment on above: Order Comment: Reaso n for Exam Chronic kidney disease, stage III (moderate);Diabetes mellit Performed By: #### C BCNO #### [facility] [address] Hemoglobin (Bld) [Mass/Vol] 14.2 g/dL Normal 11.8-15.4 [facility] Comment on above: Order Comment: Reaso n for Exam Chronic kidney disease, stage III (moderate);Diabetes mellit Performed By: #### C BCNO #### [facility] [address] MCH (RBC) [Entitic mass] 30.8 pg Normal 24.7-34.3 [facility] Comment on above: Order Comment: Reaso n for Exam Chronic kidney disease, stage III (moderate);Diabetes mellit Performed By: #### C BCNO #### [address] MCV (RBC) [Entitic vol] 90.9 fL Normal 80-100 F [facility] Comment on above: Order Comment: Reaso n for Exam Chronic kidney disease, stage III (moderate);Diabetes mellit Performed By: #### C BCNO #### [address] Mean Corpuscular HGB Conc 33.9 g/dL Normal 32.0-35.0 [facility] Comment on above: Order Comment: Reaso n for Exam Chronic kidney disease, stage III (moderate);Diabetes mellit Performed By: #### C BCNO #### [address] Platelet mean volume (Bld) [Entitic vol] 8.6 fL Normal 6.3-10.7 [facility] Comment on above: Order Comment: Reaso n for Exam Chronic kidney disease, stage III (moderate);Diabetes mellit Result Comment: PERF ORMED BY: [address] [place] [address] PATHOLOGIST APPRENTICE CARPENTER SHANTE LOMBARDI M.D. Performed By: #### C BCNO #### [address] Platelets (Bld) [#/Vol] 272 10*3/uL Normal 150-450 [facility] Comment on above: Order Comment: Reaso n for Exam Chronic kidney disease, stage III (moderate);Diabetes mellit Performed By: #### C BCNO #### [address] RBC (Bld) [#/Vol] 4.61 10*6/uL Normal 3.60-5.00 [facility] Comment on above: Order Comment: Reaso n for Exam Chronic kidney disease, stage III (moderate);Diabetes mellit Performed By: #### C BCNO #### [address] WBC (Bld) [#/Vol] 14.0 10*3/uL High 3.8-11.6 [facility] Comment on above: Order Comment: Reaso n for Exam Chronic kidney disease, stage III (moderate);Diabetes mellit Performed By: #### C BCNO #### [address] Magnesiumon 09-18-2022 Magnesium [Mass/Vol] 1.9 mg/dL Normal 1.9-2.7 [facility] Comment on above: Order Comment: Reaso n for Exam Chronic kidney disease, stage III (moderate);Diabetes mellit Performed By: #### C BCNO #### [address] Parathyroid Hormone Intacton 09-18-2022 Parathyroid Hormone Intact 33.9 pg/mL Normal 12-88 [facility] Comment on above: Order Comment: Reaso n for Exam Chronic kidney disease, stage III (moderate);Diabetes mellit Result Comment: PERF ORMED BY: [place] [address] PATHOLOGIST APPRENTICE [employer] SHANTE LOMBARDI M.D. Performed By: #### C BCNO #### [facility] [address] Protein Creat Ratio Ur Rando mon 09-18-2022 Creatinine, Urine (Random) 101.0 mg/dL High 11.0-20.0 [facility] Comment on above: Order Comment: Reaso n for Exam Chronic kidney disease, stage III (moderate);Diabetes mellit Performed By: #### C BCNO #### [address] Protein (U) [Mass/Vol] 10 mg/dL High 0-9 [facility] Comment on above: Order Comment: Reaso n for Exam Chronic kidney disease, stage III (moderate);Diabetes mellit Performed By: #### C BCNO #### [address] Urine Protein/Creatinine Ratio 99 mg/g{Cre} Normal 0-200 [facility] Comment on above: Order Comment: Reaso n for Exam Chronic kidney disease, stage III (moderate);Diabetes mellit Result Comment: PERF ORMED BY: [place] [address] PATHOLOGIST APPRENTICE [employer] SHANTE LOMBARDI M.D. Performed By: #### C BCNO #### [address] Renal Function Panelon 09-18 Albumin [Mass/Vol] 3.9 g/dL Normal 3.5-5.7 [facility] Comment on above: Order Comment: Reaso n for Exam Chronic kidney disease, stage III (moderate);Diabetes mellit Performed By: #### C BCNO #### [address] Anion gap [Moles/Vol] 14.0 mmol/L Normal 6.0-15.0 [facility] Comment on above: Order Comment: Reaso n for Exam Chronic kidney disease, stage III (moderate);Diabetes mellit Performed By: #### C BCNO #### [address] Calcium [Mass/Vol] 10.0 mg/dL Normal 8.6-10.3 [facility] Comment on above: Order Comment: Reaso n for Exam Chronic kidney disease, stage III (moderate);Diabetes mellit Performed By: #### C BCNO #### [facility] [address] Chloride [Moles/Vol] 101 mmol/L Normal 98-107 [facility] Comment on above: Order Comment: Reaso n for Exam Chronic kidney disease, stage III (moderate);Diabetes mellit Performed By: #### C BCNO #### [facility] [address] [place] [address] [place] CO2 [Moles/Vol] 27.9 mmol/L Normal 21.0-31.0 [facility] Comment on above: Order Comment: Reaso n for Exam Chronic kidney disease, stage III (moderate);Diabetes mellit Performed By: #### C BCNO #### [facility] [address] [place] [address] [place] Creatinine [Mass/Vol] 1.78 mg/dL High 0.60-1.[address] [facility] Comment on above: Order Comment: Reaso n for Exam Chronic kidney disease, stage III (moderate);Diabetes mellit Performed By: #### C BCNO #### [facility] [address] [place] [address] [place] GFR/1.73 sq M.predicted MDRD (S/P/Bld) [Vol rate/Area] 31.104 mL/min/{1.73_m2} [facility] Comment on above: Order Comment: Reaso n for Exam Chronic kidney disease, stage III (moderate);Diabetes mellit Performed By: #### C BCNO #### [facility] [address] [place] [id number] [place] Glucose [Mass/Vol] 167 mg/dL High 70-100 [facility] Comment on above: Order Comment: Reaso n for Exam Chronic kidney disease, stage III (moderate);Diabetes mellit Result Comment: [place] Glucose Reference Range is dependent on time and content of last meal. Glucose of more than 200 mg/dL in a nonstressed, ambulatory subject supports the diagnosis of Diabetes Mellitus. ADA recommended reference range Performed By: #### C BCNO #### [facility] [address] Phosphate [Mass/Vol] 4.4 mg/dL Normal 3.7-7.2 [facility] Comment on above: Order Comment: Reaso n for Exam Chronic kidney disease, stage III (moderate);Diabetes mellit Performed By: #### C BCNO #### [facility] [address] [place] [address] Potassium [Moles/Vol] 4.9 mmol/L Normal 3.5-5.[address] [facility] Comment on above: Order Comment: Reaso n for Exam Chronic kidney disease, stage III (moderate);Diabetes mellit Performed By: #### C BCNO #### [address] Sodium [Moles/Vol] 138 mmol/L Normal 136-145 [facility] Comment on above: Order Comment: Reaso n for Exam Chronic kidney disease, stage III (moderate);Diabetes mellit Performed By: #### C BCNO #### [address] Urea nitrogen [Mass/Vol] 43 mg/dL High 7-25 [facility] Comment on above: Order Comment: Reaso n for Exam Chronic kidney disease, stage III (moderate);Diabetes mellit Performed By: #### C BCNO #### [facility] [address] [place] [address] Uric Acidon 09-18-2022 Urate [Mass/Vol] 9.7 mg/dL High 2.3-6.6 [facility] Comment on above: Order Comment: Reaso n for Exam Chronic kidney disease, stage III (moderate);Diabetes mellit Performed By: #### C BCNO #### [facility] [address] [place] [address] Urine Cultureon 09-18-2022 Bacteria identified Cx Nom (U) ORGANISM: Escherichia coli (O:ESCCOL) [place] Count >100,000 Aerobic JACEY Charge (NMIC56) ------ [...] RESISTANT TO ALL B-LACTAM DRUGS. PERFORMED BY: [facility] [address] [place] [address] PATHOLOGIST APPRENTICE CARPENTER SHANTE LOMBARDI M.D. Normal [facility] Comment on above: Performed By: #### C BCNO, [id number], PTH, URIC, MG, RENAL, ADDONUAPLUS, CUU, PROCRERAT ####[facility] [address] [place] [address] [facility] Vitamin D 25 Hydroxy Totalon 09-18-2022 Vitamin D 25 Hydroxy Total 45.1 ng/mL Normal 30-100 [facility] Comment on above: Order [...] practice guideline. JCEM. 2010; 96(7):1911-30. PERFORMED BY: [facility] [address] [place] [id number] PATHOLOGIST APPRENTICE CARPENTER SHANTE LOMBARDI M.D. Performed By: #### C BCNO #### [place] [id number] [facility] CBC AUTO DIFFon 06-28-2022 BASO # 0.1 103/ul Normal 0.0-0.1 [facility] Comment on above: Performed By: #### C BC #### [facility] [address] [place] [address] Dr. Briana Dillard Basophils/100 WBC (Bld) 0.8 % Normal 0.2-2.0 [facility] Comment on above: Performed By: #### C BC #### [facility] [address] [place] [address] [address] Briana Dillard EO # 0.3 103/ul Normal 0.0-0.7 [facility] Comment on above: Performed By: #### C BC #### [facility] [address] [place] [address] Dr. Briana Dillard Eosinophils/100 WBC (Bld) 2.5 % Normal 0.9-7.0 [facility] Comment on above: Performed By: #### C BC #### [facility] [address] [place] [address] Dr. Briana Dillard Erythrocyte distribution width (RBC) [Ratio] 14.8 % Normal 11.0-15.0 [facility] Comment on above: Performed By: #### C BC #### [facility] [address] [place] [address] [address] Briana Dillard Hematocrit (Bld) [Volume fraction] 43.8 % Normal 36.0-48.0 [facility] Comment on above: Performed By: #### C BC #### [facility] [address] [place] [address] [address] Briana Dillard Hemoglobin (Bld) [Mass/Vol] 14.5 g/dL Normal 12.0-16.0 [facility] Comment on above: Performed By: #### C BC #### [facility] [address] [place] [address] Dr. Briana Dillard IG # 0.13 10e3/ul Critically high 0.00-0.03 [facility] Comment on above: Performed By: #### C BC #### [facility] [address] [place] [address] Dr. Briana Dillard IG % 1.0 % Critically high 0.0-0.5 [facility] Comment on above: Performed By: #### C BC #### [facility] [address] [place] [address] Dr. Briana Dillard LYMPH # 2.5 103/ul Normal 1.2-3.8 [facility] Comment on above: Performed By: #### C BC #### [facility] [address] [place] [address] Dr. Briana Dillard Lymphocytes/100 WBC (Bld) 19.1 % Critically low 20.5-60.0 [facility] Comment on above: Performed By: #### C BC #### [facility] [address] [place] [address] Dr. Briana Dillard MANUAL DIFF REQ NO Normal [facility] Comment on above: Performed By: #### C BC #### [facility] [address] [place] [address] Dr. Briana Dillard MCH (RBC) [Entitic mass] 30.8 pg Normal 26.7-34.0 [facility] Comment on above: Performed By: #### C BC #### [facility] [address] [place] [address] Dr. Briana Dillard MCHC (RBC) [Mass/Vol] 33.1 g/dL Normal 29.9-35.2 [facility] Comment on above: Performed By: #### C BC #### [facility] [address] [place] [address] Dr. Briana Dillard MCV (RBC) [Entitic vol] 93.0 fL Normal 81.0-99.0 [facility] Comment on above: Performed By: #### C BC #### [facility] [address] [place] [address] Dr. Briana Dillard MONO # 0.7 103/ul Normal 0.3-0.8 [facility] Comment on above: Performed By: #### C BC #### [facility] [address] [place] [address] Dr. Briana Dillard Monocytes/100 WBC (Bld) 5.7 % Normal 1.7-12.0 [facility] Comment on above: Performed By: #### C BC #### [facility] [address] [place] [address] Dr. Briana Dillard NEUT # 9.2 103/ul Critically high 1.4-6.5 [facility] Comment on above: Performed By: #### C BC #### [facility] [address] [place] [address] Dr. Briana Dillard Neutrophils/100 WBC (Bld) 70.9 % Normal 43.0-75.0 [facility] Comment on above: Performed By: #### C BC #### [facility] [address] [place] [address] Dr. Briana Dillard Platelet mean volume (Bld) [Entitic vol] 10.4 fL Normal 9.5-13.5 [facility] Comment on above: Performed By: #### C BC #### [facility] [address] [place] [address] Dr. Briana Dillard PLT 262 103/ul Normal 150-450 [facility] Comment on above: Performed By: #### C BC #### [facility] [address] [place] [address] Dr. Briana Dillard RBC 4.71 106/ul Normal 4.20-5.40 [facility] Comment on above: Performed By: #### C BC #### [facility] [address] [place] [address] Dr. Briana Dillard WBC 13.0 103/ul Critically high 4.0-11.0 [facility] Comment on above: Performed By: #### C BC #### [facility] [address] [place] [address] [address] Briana Dillard DIRECT LDLon 06-28-2022 Cholesterol in LDL [Mass/Vol] 90 mg/dL Normal [facility] Comment on above: Performed By: #### C MP, CMADM, BNP #### [facility] [address] [place] [address] [address] Briana Dillard DLDL NORMAL SEE BELOW Normal [facility] Comment on above: Result Comment: <100 mg/dl OPTIMAL 100 - 129 mg/dl NEAR OR ABOVE OPTIMAL 130 - 159 mg/dl BORDERLINE HIGH 160 - 189 mg/dl HIGH >190 mg/dl VERY HIGH Performed By: #### C MP, CMADM, BNP #### [facility] [address] [place] [address] Dr. Briana Dillard GLYCOHEMOGLOBIN A1Con 2022 ADA RECOMMENDATION SEE BELOW Normal [facility] Comment on above: Result Comment: ADA RECOMMENDED LIMIT 4.0 - 6.0 ADA THERAPEUTIC TARGET < 7.0 ACTION SUGGESTED > 7.0 Performed By: #### C DARRIAN CMADM, BNP #### [facility] [address] [place] [address] [address] Briana Dillard Glucose [Mass/Vol] 229 mg/dL Normal [facility] Comment on above: Performed By: #### C MP, CMADM, BNP #### [facility] [address] [place] [address] Dr. Briana Dillard HbA1c (Bld) [Mass fraction] 9.6 % Critically high 4.5-6.2 [facility] Comment on above: Performed By: #### C MP, CMADM, BNP #### [facility] [address] [place] [address] Dr. Briana Dillard LIPID PROFILEon 06-28-2022 CHOL-HDL RATIO NORM SEE BELOW Normal [facility] Comment on above: Result Comment: 3.3 - 4.4 LOW RISK 4.4 - 7.1 AVERAGE RISK 7.1 - 11.0 MODERATE RISK >11.0 HIGH RISK Performed By: #### C MP, CMADM, BNP #### [facility] [address] [place] [address] [address] Briana Dillard Cholesterol [Mass/Vol] 219 mg/dL Critically high <=200 [facility] Comment on above: Performed By: #### C MP, CMADM, BNP #### [facility] [address] [place] [address] [address] Briana Dillard Cholesterol in HDL [Mass/Vol] 32 mg/dL Critically low 40-60 [facility] Comment on above: Performed By: #### C MP, CMADM, BNP #### [facility] [address] [place] [address] [address] Briana Dillard Cholesterol.total/Choles terol in HDL [Mass ratio] 6.8 {ratio} Normal [facility] Comment on above: Performed By: #### C MP, CMADM, BNP #### [facility] [address] [place] [address] [address] Briana Dillard HDL NORMAL > or = 60 mg/dl - LOW CARDIOVASCULAR RISK <40 mg/dl - HIGH CARDIOVASCULAR RISK Normal [facility] Comment on above: Performed By: #### C MP, CMADM, BNP #### [facility] [address] [place] [address] [address] Briana Dillard LDL CALC NORMAL SEE BELOW Normal [facility] Comment on above: Result Comment: <100 mg/dl OPTIMAL 100 - 129 mg/dl NEAR OR ABOVE OPTIMAL 130 - 159 mg/dl BORDERLINE HIGH 160 - 189 mg/dl HIGH >190 mg/dl VERY HIGH Performed By: #### C MP, CMADM, BNP #### [facility] [address] [place] [address] [address] Briana Dillard Triglyceride [Mass/Vol] 585 mg/dL Critically high <=150 [facility] Comment on above: Performed By: #### C MP, CMADM, BNP #### [facility] [address] [place] [address] [address] Briana Dillard VLDL CALC 117.0 mg/dL Normal [facility] Comment on above: Performed By: #### C MP, CMADM, BNP #### [facility] [address] [place] [address] Dr. Briana Dillard PROF 14(COMP METB)on 023 Albumin [Mass/Vol] 3.6 g/dL Normal 3.4-5.0 [facility] Comment on above: Performed By: #### L IPID, CMP, DLDL #### [facility] [address] [place] [address] Dr. Briana Dillard Albumin/Globulin [Mass ratio] 0.9 {ratio} Normal [facility] Comment on above: Performed By: #### L IPID, CMP, DLDL #### [facility] [address] [place] [address] Dr. Briana Dillard ALP [Catalytic activity/Vol] 117 U/L Critically high 46-116 [facility] Comment on above: Performed By: #### L IPID, CMP, DLDL #### [facility] [address] [place] [address] Dr. Briana Dillard ALT [Catalytic activity/Vol] 42 U/L Normal 14-59 [facility] Comment on above: Performed By: #### L IPID, CMP, DLDL #### [facility] [address] [place] [address] Dr. Briana Dillard Anion gap [Moles/Vol] 15.4 mmol/L Normal [facility] Comment on above: Performed By: #### L IPID, CMP, DLDL #### [facility] [address] [place] [address] Dr. Briana Dillard AST [Catalytic activity/Vol] 29 U/L Normal 15-37 [facility] Comment on above: Performed By: #### L IPID, CMP, DLDL #### [facility] [address] [place] [address] Dr. Briana Dillard Bilirubin [Mass/Vol] 0.4 mg/dL Normal 0.2-1.0 [facility] Comment on above: Performed By: #### L IPID, CMP, DLDL #### [facility] [address] [place] [address] Dr. Briana Dillard Calcium [Mass/Vol] 10.2 mg/dL Critically high 8.5-10.1 [facility] Comment on above: Performed By: #### L IPID, CMP, DLDL #### [facility] [address] [place] [address] [address] Briana Dillard Chloride [Moles/Vol] 100 mmol/L Normal 98-107 [facility] Comment on above: Performed By: #### L IPID, CMP, DLDL #### [facility] [address] [place] [address] [address] Briana Dillard CO2 [Moles/Vol] 27.3 mmol/L Normal 21.0-32.0 [facility] Comment on above: Performed By: #### L IPID, CMP, DLDL #### [facility] [address] [place] [address] Dr. Briana Dillard Creatinine [Mass/Vol] 1.40 mg/dL Critically high 0.55-1.02 [facility] Comment on above: Performed By: #### L IPID, CMP, DLDL #### [facility] [address] [place] [address] [address] Briana Dillard EGFR-AF SERBIAN 46 mL/min/1.73m2 Critically low >=60 [facility] Comment on above: Performed By: #### L IPID, CMP, DLDL #### [facility] [address] [place] [address] Dr. Briana Dillard EGFR-NON AF SERBIAN 38 mL/min/1.73m2 Critically low >=60 [facility] Comment on above: Performed By: #### L IPID, CMP, DLDL #### [facility] [address] [place] [address] [address] Briana Dillard Globulin (S) [Mass/Vol] 3.9 g/dL Normal [facility] Comment on above: Performed By: #### L IPID, CMP, DLDL #### [facility] [address] [place] [address] [address] Briana Dillard Glucose [Mass/Vol] 295 mg/dL Critically high 74-106 [facility] Comment on above: Performed By: #### L IPID, CMP, DLDL #### [facility] [address] [place] [address] Dr. Briana Dillard Potassium [Moles/Vol] 4.7 mmol/L Normal 3.5-5.1 [facility] Comment on above: Performed By: #### L IPID, CMP, DLDL #### [facility] [address] [place] [address] Dr. Briana Dillard Protein [Mass/Vol] 7.5 g/dL Normal 6.4-8.2 [facility] Comment on above: Performed By: #### L IPID, CMP, DLDL #### [facility] [address] [place] [address] Dr. Briana Dillard Sodium [Moles/Vol] 138 mmol/L Normal 136-145 [facility] Comment on above: Performed By: #### L IPID, CMP, DLDL #### [facility] [address] [place] [address] Dr. Briana Dillard Urea nitrogen [Mass/Vol] 34.0 mg/dL Critically high 7.0-18 .0 [facility] Comment on above: Performed By: #### L IPID, CMP, DLDL #### [facility] [address] [place] [address] Dr. Briana Dillard Urea nitrogen/Creatinine [Mass ratio] 24.3 mg/mg Normal [facility] Comment on above: Performed By: #### L IPID, CMP, DLDL #### [facility] [address] [place] [address] Dr. Briana Dillard UA RANDOM W/MICROSCOPICon BACTERIA TRACE Abnormal NONE SEEN [facility] Comment on above: Performed By: #### C MP, CMADM, BNP #### [facility] [address] [place] [address] Dr. Briana Dillard Bilirubin Ql (U) Negative Normal NEGATIVE [facility] Comment on above: Performed By: #### C MP, CMADM, BNP #### [facility] [address] [place] [address] Dr. Briana Dillard CAST NONE SEEN Normal NONE SEEN [facility] Comment on above: Performed By: #### C MP, CMADM, BNP #### [facility] [address] [place] [address] [address] Briana Dillard Clarity (U) CLEAR Normal CLEAR [facility] Comment on above: Performed By: #### C MP, CMADM, BNP #### [facility] [address] [place] [address] [address] Briana Dillard Color (U) LT. YELLOW Normal YELLOW [facility] Comment on above: Performed By: #### C MP, CMADM, BNP #### [facility] [address] [place] [address] [address] Briana Dillard Crystals LM Nom (Urine sed) NONE SEEN Normal NONE SEEN [facility] Comment on above: Performed By: #### C MP, CMADM, BNP #### [facility] [address] [place] [address] Dr. Briana Dillard Epithelial cells LM Ql (Urine sed) MANY Abnormal NONE SEEN /RARE [facility] Comment on above: Performed By: #### C MP, CMADM, BNP #### [facility] [address] [place] [address] [address] Briana Dillard Glucose Ql (U) Negative Normal NEGATIVE [facility] Comment on above: Performed By: #### C MP, CMADM, BNP #### [facility] [address] [place] [address] Dr. Briana Dillard Hemoglobin Ql (U) Negative Normal NEGATIVE [facility] Comment on above: Performed By: #### C MP, CMADM, BNP #### [facility] [address] [place] [address] [address] Briana Dillard Ketones Ql (U) Negative Normal NEGATIVE [facility] Comment on above: Performed By: #### C MP, CMADM, BNP #### [facility] [address] [place] [address] [address] Briana Dillard LEUKOCYTES TRACE Abnormal NEGATIVE [facility] Comment on above: Performed By: #### C MP, CMADM, BNP #### [facility] [address] [place] [address] [address] Briana Dillard MUCOUS NONE SEEN Normal NONE SEEN [facility] Comment on above: Performed By: #### C MP, CMADM, BNP #### [facility] [address] [place] [address] Dr. Briana Dillard Nitrite Ql (U) Negative Normal NEGATIVE [facility] Comment on above: Performed By: #### C MP, CMADM, BNP #### [facility] [address] [place] [address] Dr. Briana Dillard pH (U) 6.0 [pH] Normal 5-9 [facility] Comment on above: Performed By: #### C MP, CMADM, BNP #### [facility] [address] [place] [address] Dr. Briana Dillard RBC 0-2 Normal 0-2 [facility] Comment on above: Performed By: #### C MP, CMADM, BNP #### [facility] [address] [place] [address] Dr. Briana Dillard SPEC GRAVITY 1.010 Normal 1.005-<=1.02 5 [facility] Comment on above: Performed By: #### C MP, CMADM, BNP #### [facility] [address] [place] [address] Dr. Briana Dillard UA PROTEIN TRACE Normal NEGATIVE/ TRACE [facility] Comment on above: Performed By: #### C MP, CMADM, BNP #### [facility] [address] [place] [address] Dr. Briana Dillard Urobilinogen Qn (U) 0.2 {Samuel'U}/dL Normal 0.2 - 1. 0 [facility] Comment on above: Performed By: #### C MP, CMADM, BNP #### [facility] [address] [place] [address] Dr. Briana Dillard WBC 2-5 Abnormal NONE SEEN [facility] Comment on above: Performed By: #### C MP, CMADM, BNP #### [facility] [address] [place] [address] Dr. Briana Dillard URINE T PROTEIN CREAT RATIOo n 06-28-2022 Protein (U) [Mass/Vol] 30.3 mg/dL Critically high <=12.0 [facility] Comment on above: Performed By: #### C MP, CMADM, BNP #### [facility] [address] [address] [address] Briana Dillard UR PROT CREAT RAT 0.80 Normal [facility] Comment on above: Performed By: #### C MP CMADM, BNP #### [facility] [address] [address] [address] Briana Dillard URINE CREAT 38.11 mg/dL Normal 20.00-300.00 [facility] Comment on above: Performed By: #### C DARRIAN, GEOVANY, BNP #### [facility] [address] [place] [address] Dr. Briana Dillard POINT OF CARE GLUCOSEon 05-05 Glucose [Mass/Vol] 296 mg/dL Critically high 74-106 [facility] Comment on above: Performed By: #### C DARRIAN, CMADM, BNP #### [facility] [address] [place] [address] Dr. Briana Dillard POINT OF CARE GLUCOSEon 05-04 Glucose [Mass/Vol] 312 mg/dL Critically high 74-106 [facility] Comment on above: Performed By: #### C BC #### [facility] [address] [place] [address] Dr. Briana Dillard GLYCOHEMOGLOBIN A1Con 2021 ADA RECOMMENDATION SEE BELOW Normal [facility] Comment on above: Result Comment: ADA RECOMMENDED LIMIT 4.0 - 6.0 ADA THERAPEUTIC TARGET < 7.0 ACTION SUGGESTED > 7.0 Performed By: #### A 1C #### [facility] [address] [place] [address] Dr. Briana Dillard Glucose [Mass/Vol] 223 mg/dL Normal [facility] Comment on above: Performed By: #### A 1C #### [facility] [address] [place] [address] Dr. Briana Dillard HbA1c (Bld) [Mass fraction] 9.4 % Critically high 4.5-6.2 [facility] Comment on above: Performed By: #### A 1C #### [facility] [address] [place] [address] Dr. Briana Dillard CBC AUTO DIFFon 11-29-2021 BASO # 0.1 103/ul Normal 0.0-0.1 [facility] Comment on above: Performed By: #### C BC #### [facility] [address] [place] [address] Dr. Briana Dillard Basophils/100 WBC (Bld) 0.9 % Normal 0.2-2.0 [facility] Comment on above: Performed By: #### C BC #### [facility] [address] [place] [address] Dr. Briana Dillard EO # 0.3 103/ul Normal 0.0-0.7 [facility] Comment on above: Performed By: #### C BC #### [facility] [address] [place] [address] Dr. Briana Dillard Eosinophils/100 WBC (Bld) 2.7 % Normal 0.9-7.0 [facility] Comment on above: Performed By: #### C BC #### [facility] [address] [place] [address] Dr. Briana Dillard Erythrocyte distribution width (RBC) [Ratio] 15.8 % Critically high 11.0-15.0 [facility] Comment on above: Performed By: #### C BC #### [facility] [address] [place] [address] Dr. Briana Dillard Hematocrit (Bld) [Volume fraction] 39.4 % Normal 36.0-48.0 [facility] Comment on above: Performed By: #### C BC #### [facility] [address] [place] [address] Dr. Briana Dillard Hemoglobin (Bld) [Mass/Vol] 13.0 g/dL Normal 12.0-16.0 [facility] Comment on above: Performed By: #### C BC #### [facility] [address] [place] [address] Dr. Briana Dillard IG # 0.12 10e3/ul Critically high 0.00-0.03 [facility] Comment on above: Performed By: #### C BC #### [facility] [address] [place] [address] Dr. Briana Dillard IG % 1.1 % Critically high 0.0-0.5 [facility] Comment on above: Performed By: #### C BC #### [facility] [address] [place] [address] Dr. Briana Dillard LYMPH # 2.7 103/ul Normal 1.2-3.8 [facility] Comment on above: Performed By: #### C BC #### [facility] [address] [place] [address] Dr. Briana Dillard Lymphocytes/100 WBC (Bld) 25.6 % Normal 20.5-60.0 [facility] Comment on above: Performed By: #### C BC #### [facility] [address] [place] [address] Dr. Briana Dillard MANUAL DIFF REQ NO Normal [facility] Comment on above: Performed By: #### C BC #### [facility] [address] [place] [address] Dr. Briana Dillard MCH (RBC) [Entitic mass] 30.9 pg Normal 26.7-34.0 [facility] Comment on above: Performed By: #### C BC #### [facility] [address] [place] [address] Dr. Briana Dillard MCHC (RBC) [Mass/Vol] 33.0 g/dL Normal 29.9-35.2 [facility] Comment on above: Performed By: #### C BC #### [facility] [address] [place] [address] Dr. Briana Dillard MCV (RBC) [Entitic vol] 93.6 fL Normal 81.0-99.0 [facility] Comment on above: Performed By: #### C BC #### [facility] [address] [place] [address] Dr. Briana Dillard MONO # 0.8 103/ul Normal 0.3-0.8 [facility] Comment on above: Performed By: #### C BC #### [facility] [address] [place] [address] Dr. Briana Dillard Monocytes/100 WBC (Bld) 7.9 % Normal 1.7-12.0 [facility] Comment on above: Performed By: #### C BC #### [facility] [address] [place] [address] Dr. Briana Dillard NEUT # 6.6 103/ul Critically high 1.4-6.5 [facility] Comment on above: Performed By: #### C BC #### [facility] [address] [place] [address] Dr. Briana Dillard Neutrophils/100 WBC (Bld) 61.8 % Normal 43.0-75.0 [facility] Comment on above: Performed By: #### C BC #### [facility] [address] [place] [address] Dr. Briana Dillard Platelet mean volume (Bld) [Entitic vol] 10.3 fL Normal 9.5-13.5 [facility] Comment on above: Performed By: #### C BC #### [facility] [address] [place] [address] Dr. Briana Dillard PLT 234 103/ul Normal 150-450 [facility] Comment on above: Performed By: #### C BC #### [facility] [address] [place] [address] Dr. Briana Dillard RBC 4.21 106/ul Normal 4.20-5.40 [facility] Comment on above: Performed By: #### C BC #### [facility] [address] [place] [address] Dr. Briana Dillard WBC 10.6 103/ul Normal 4.0-11.0 [facility] Comment on above: Performed By: #### C BC #### [facility] [address] [place] [address] Dr. Briana Dillard GLYCOHEMOGLOBIN A1Con 2021 ADA RECOMMENDATION SEE BELOW Normal [facility] Comment on above: Result Comment: ADA RECOMMENDED LIMIT 4.0 - 6.0 ADA THERAPEUTIC TARGET < 7.0 ACTION SUGGESTED > 7.0 Performed By: #### C BC #### [facility] [address] [address] [address] Briana Dillard Glucose [Mass/Vol] 220 mg/dL Normal [facility] Comment on above: Performed By: #### C BC #### [facility] [address] [address] [address] Briana Dillard HbA1c (Bld) [Mass fraction] 9.3 % Critically high 4.5-6.2 [facility] Comment on above: Performed By: #### C BC #### [facility] [address] [place] [address] Dr. Briana Dillard LIPID PROFILEon 11-29-2021 CHOL-HDL RATIO NORM SEE BELOW Normal [facility] Comment on above: Result Comment: 3.3 - 4.4 LOW RISK 4.4 - 7.1 AVERAGE RISK 7.1 - 11.0 MODERATE RISK >11.0 HIGH RISK Performed By: #### C MP, CMADM, BNP #### [facility] [address] [place] [address] Dr. Briana Dillard Cholesterol [Mass/Vol] 135 mg/dL Normal <=200 [facility] Comment on above: Performed By: #### C MP, CMADM, BNP #### [facility] [address] [place] [address] Dr. Briana Dillard Cholesterol in HDL [Mass/Vol] 44 mg/dL Normal 40-60 [facility] Comment on above: Performed By: #### C MP, CMADM, BNP #### [facility] [address] [place] [address] Dr. Briana Dillard Cholesterol in LDL [Mass/Vol] 60.2 mg/dL Normal [facility] Comment on above: Performed By: #### C MP, CMADM, BNP #### [facility] [address] [address] [address] Briana Dillard Cholesterol.total/Choles terol in HDL [Mass ratio] 3.1 {ratio} Normal [facility] Comment on above: Performed By: #### C MP, CMADM, BNP #### [facility] [address] [address] [address] Briana Dillard HDL NORMAL > or = 60 mg/dl - LOW CARDIOVASCULAR RISK <40 mg/dl - HIGH CARDIOVASCULAR RISK Normal [facility] Comment on above: Performed By: #### C MP, CMADM, BNP #### [facility] [address] [address] [address] Briana Dillard LDL CALC NORMAL SEE BELOW Normal [facility] Comment on above: Result Comment: <100 mg/dl OPTIMAL 100 - 129 mg/dl NEAR OR ABOVE OPTIMAL 130 - 159 mg/dl BORDERLINE HIGH 160 - 189 mg/dl HIGH >190 mg/dl VERY HIGH Performed By: #### C MP, CMADM, BNP #### [facility] [address] [address] [address] Briana Dillard Triglyceride [Mass/Vol] 154 mg/dL Critically high <=150 [facility] Comment on above: Performed By: #### C MP CMADM, BNP #### [facility] [address] [address] [address] Briana Dillard VLDL CALC 30.8 mg/dL Normal [facility] Comment on above: Performed By: #### C KYLE COLMENARESDM, BNP #### [facility] [address] [address] [address] Briana Dillard POINT OF CARE GLUCOSEon 11-02 Glucose [Mass/Vol] 271 mg/dL Critically high 74-106 [facility] Comment on above: Performed By: #### C BC #### [facility] [address] [address] [address] Briana Dillard Glucose [Mass/Vol] 180 mg/dL Critically high 74-106 [facility] Comment on above: Performed By: #### C MP CMADM, BNP #### [facility] [address] [address] [address] Briana Dillard BNPon 11-28-2021 Natriuretic peptide B (Bld) [Mass/Vol] 86.0 pg/mL Normal <=900.0 [facility] Comment on above: Performed By: #### C MP, CMADM, BNP #### [facility] [address] [address] [address] Briana Dillard CARDIAC TANIA ADMITon 022 CK [Catalytic activity/Vol] 52 U/L Normal 26-192 [facility] Comment on above: Performed By: #### C MP, CMADM, BNP #### [facility] [address] [place] [address] Dr. Briana Dillard CK.MB [Mass/Vol] 0.65 ng/mL Normal <=3.60 [facility] Comment on above: Performed By: #### C MP, CMADM, BNP #### [facility] [address] [place] [address] Dr. Briana Dillard HSTROP 4.8 pg/mL Normal 4.0-51.3 [facility] Comment on above: Result Comment: CUT- OFF POINTS HAVE BEEN ESTABLISHED BASED ON THE FOURTH UNIVERSAL DEFINITIONS OF MYOCARDIAL INFARCTION. THE UPPER REFERENCE LIMIT (URL) OF TROPONIN, DEFINED THE 99TH PERCENTILE OF cTnI DISTRIBUTION IN A REFERENCE POPULATION, HAS BEEN CONFIRMED THE DECISION THRESHOLD FOR [place] DIAGNOSIS. Performed By: #### C MP, CMADM, BNP #### [facility] [address] [place] [address] Dr. Briana Dillard YONIS 47 ng/mL Normal 9-82 [facility] Comment on above: Performed By: #### C MP, CMADM, BNP #### [facility] [address] [place] [address] Dr. Briana Dillard CBC AUTO DIFFon 11-28-2021 BASO # 0.1 103/ul Normal 0.0-0.1 [facility] Comment on above: Performed By: #### C BC #### [facility] [address] [place] [address] Dr. Briana Dillard Basophils/100 WBC (Bld) 0.8 % Normal 0.2-2.0 [facility] Comment on above: Performed By: #### C BC #### [facility] [address] [place] [address] Dr. Briana Dillard EO # 0.2 103/ul Normal 0.0-0.7 [facility] Comment on above: Performed By: #### C BC #### [facility] [address] [place] [address] Dr. Briana Dillard Eosinophils/100 WBC (Bld) 1.4 % Normal 0.9-7.0 [facility] Comment on above: Performed By: #### C BC #### [facility] [address] [place] [address] Dr. Briana Dillard Erythrocyte distribution width (RBC) [Ratio] 15.8 % Critically high 11.0-15.0 [facility] Comment on above: Performed By: #### C BC #### [facility] [address] [place] [address] Dr. Brinaa Dillard Hematocrit (Bld) [Volume fraction] 42.2 % Normal 36.0-48.0 [facility] Comment on above: Performed By: #### C BC #### [facility] [address] [place] [address] Dr. Briana Dillard Hemoglobin (Bld) [Mass/Vol] 14.3 g/dL Normal 12.0-16.0 [facility] Comment on above: Performed By: #### C BC #### [facility] [address] [place] [address] Dr. Briana Dillard IG # 0.14 10e3/ul Critically high 0.00-0.03 [facility] Comment on above: Performed By: #### C BC #### [facility] [address] [place] [address] Dr. Briana Dillard IG % 1.1 % Critically high 0.0-0.5 [facility] Comment on above: Performed By: #### C BC #### [facility] [address] [place] [address] Dr. Briana Dillard LYMPH # 1.9 103/ul Normal 1.2-3.8 [facility] Comment on above: Performed By: #### C BC #### [facility] [address] [place] [address] Dr. Briana Dillard Lymphocytes/100 WBC (Bld) 14.0 % Critically low 20.5-60.0 [facility] Comment on above: Performed By: #### C BC #### [facility] [address] [place] [address] Dr. Briana Dillard MANUAL DIFF REQ NO Normal [facility] Comment on above: Performed By: #### C BC #### [facility] [address] [place] [address] Dr. Briana Dillard MCH (RBC) [Entitic mass] 31.2 pg Normal 26.7-34.0 [facility] Comment on above: Performed By: #### C BC #### [facility] [address] [place] [address] Dr. Briana Dillard MCHC (RBC) [Mass/Vol] 33.9 g/dL Normal 29.9-35.2 [facility] Comment on above: Performed By: #### C BC #### [facility] [address] [place] [address] Dr. Briana Dillard MCV (RBC) [Entitic vol] 92.1 fL Normal 81.0-99.0 [facility] Comment on above: Performed By: #### C BC #### [facility] [address] [place] [address] Dr. Briana Dillard MONO # 1.1 103/ul Critically high 0.3-0.8 [facility] Comment on above: Performed By: #### C BC #### [facility] [address] [place] [address] Dr. Briana Dillard Monocytes/100 WBC (Bld) 8.0 % Normal 1.7-12.0 [facility] Comment on above: Performed By: #### C BC #### [facility] [address] [place] [address] Dr. Briana Dillard NEUT # 9.9 103/ul Critically high 1.4-6.5 [facility] Comment on above: Performed By: #### C BC #### [facility] [address] [place] [address] Dr. Briana Dillard Neutrophils/100 WBC (Bld) 74.7 % Normal 43.0-75.0 [facility] Comment on above: Performed By: #### C BC #### [facility] [address] [address] [address] Briana Dillard Platelet mean volume (Bld) [Entitic vol] 10.1 fL Normal 9.5-13.5 [facility] Comment on above: Performed By: #### C BC #### [facility] [address] [address] [address] Briana Dillard PLT 241 103/ul Normal 150-450 [facility] Comment on above: Performed By: #### C BC #### [facility] [address] [address] [address] Briana Dillard RBC 4.58 106/ul Normal 4.20-5.40 [facility] Comment on above: Performed By: #### C BC #### [facility] [address] [place] [address] Dr. Briana Dillard WBC 13.2 103/ul Critically high 4.0-11.0 [facility] Comment on above: Performed By: #### C BC #### [facility] [address] [place], [place] [id number] Dr. Briana Dillard CTA CHEST WO W [...] NADJA KEMP Date: 2021-11-28 13:10 Normal [facility] Covid-19 PCR (CVDTBH)on 11-02 SARS-CoV-2 (COVID-19) RNA ANTOINE+probe Ql (Unsp spec) Not detected Normal NOT DETECTED [facility] Comment on above: Result Comment: When diagnostic [...] for this test is supported by the [place] of Health and Human Service's declaration that [...] By: #### C MP, CMADM, BNP #### [facility] [address] [address] [address] Briana Dillard D-DIMERon 11-28-2021 D-DIMER 0.77 mg/L FEU Critically high <=0.59 [facility] Comment on above: Performed By: #### P T, PTT, DDIM #### [facility] [address] [address] [address] Briana Dillard D-DIMER COMMENTS SEE BELOW Normal [facility] Comment on above: Result Comment: Incr [...] By: #### P T, PTT, DDIM #### [facility] [address] [place] [address] Dr. Briana Dillard POINT OF CARE GLUCOSEon 11-02 Glucose [Mass/Vol] 213 mg/dL Critically high 74-106 [facility] Comment on above: Performed By: #### P OCGLUC #### [facility] [address] [place] [address] Dr. Briana Dillard Glucose [Mass/Vol] 255 mg/dL Critically high 74-106 [facility] Comment on above: Performed By: #### C MP, CMADM, BNP #### [facility] [address] [place] [address] Dr. Briana Dillard PROF 14(COMP METB)on 022 Albumin [Mass/Vol] 3.4 g/dL Normal 3.4-5.0 [facility] Comment on above: Performed By: #### C MP, CMADM, BNP #### [facility] [address] [place] [address] Dr. Briana Dillard Albumin/Globulin [Mass ratio] 0.9 {ratio} Normal [facility] Comment on above: Performed By: #### C MP, CMADM, BNP #### [facility] [address] [place] [address] Dr. Briana Dillard ALP [Catalytic activity/Vol] 126 U/L Critically high 46-116 [facility] Comment on above: Performed By: #### C MP, CMADM, BNP #### [facility] [address] [place] [address] Dr. Briana Dillard ALT [Catalytic activity/Vol] 30 U/L Normal 14-59 [facility] Comment on above: Performed By: #### C MP, CMADM, BNP #### [facility] [address] [place] [address] Dr. Briana Dillard Anion gap [Moles/Vol] 13.6 mmol/L Normal Th e [facility] Comment on above: Performed By: #### C KYLE COLMENARESDM, BNP #### [facility] [facility] [address] [address] [address] Briana Dillard AST [Catalytic activity/Vol] 18 U/L Normal 15-37 [facility] Comment on above: Performed By: #### C KYLE COLMENARESDM, BNP #### [facility] [address] [address] [address] Briana Dillard Bilirubin [Mass/Vol] 0.4 mg/dL Normal 0.2-1.0 [facility] Comment on above: Performed By: #### C KYLE COLMENARESDM, BNP #### [facility] [address] [place] [address] Dr. Briana Dillard Calcium [Mass/Vol] 8.9 mg/dL Normal 8.5-10.1 [facility] Comment on above: Performed By: #### C KYLE COLMENARESDM, BNP #### [facility] [address] [place] [address] Dr. Briana Dillard Chloride [Moles/Vol] 98 mmol/L Normal 98-107 [facility] Comment on above: Performed By: #### C KYLE COLMENARESDM, BNP #### [facility] [address] [place] [address] Dr. Briana Dillard CO2 [Moles/Vol] 25.0 mmol/L Normal 21.0-32.0 [facility] Comment on above: Performed By: #### C DARRIAN CMADM, BNP #### [facility] [address] [place] [address] Dr. Briana Dillard Creatinine [Mass/Vol] 1.58 mg/dL Critically high 0.55-1.02 [facility] Comment on above: Performed By: #### C DARRIAN CMADM, BNP #### [facility] [address] [place] [address] Dr. Briana Dillard EGFR-AF SERBIAN 40 mL/min/1.73m2 Critically low >=60 [facility] Comment on above: Performed By: #### C KYLE COLMENARESDM, BNP #### [facility] [address] [place] [address] Dr. Briana Dillard EGFR-NON AF SERBIAN 33 mL/min/1.73m2 Critically low >=60 [facility] Comment on above: Performed By: #### C MP, CMADM, BNP #### [facility] [address] [place] [address] Dr. Briana Dillard Globulin (S) [Mass/Vol] 4.0 g/dL Normal [facility] Comment on above: Performed By: #### C MP, CMADM, BNP #### [facility] [address] [place] [address] Dr. Briana Dillard Glucose [Mass/Vol] 386 mg/dL Critically high 74-106 [facility] Comment on above: Performed By: #### C MP, CMADM, BNP #### [facility] [address] [place] [address] Dr. Briana Dillard Potassium [Moles/Vol] 4.6 mmol/L Normal 3.5-5.1 [facility] Comment on above: Performed By: #### C MP, CMADM, BNP #### [facility] [address] [place] [address] Dr. Briana Dillard Protein [Mass/Vol] 7.4 g/dL Normal 6.4-8.2 [facility] Comment on above: Performed By: #### C MP, CMADM, BNP #### [facility] [address] [place] [address] Dr. Briana Dillard Sodium [Moles/Vol] 132 mmol/L Critically low 136-145 [facility] Comment on above: Performed By: #### C MP, CMADM, BNP #### [facility] [address] [place] [address] Dr. Briana Dillard Urea nitrogen [Mass/Vol] 23.0 mg/dL Critically high 7.0-18 .0 [facility] Comment on above: Performed By: #### C MP, CMADM, BNP #### [facility] [address] [place] [address] Dr. Briana Dillard Urea nitrogen/Creatinine [Mass ratio] 14.6 mg/mg Normal [facility] Comment on above: Performed By: #### C MP, CMADM, BNP #### [facility] [address] [place] [address] Dr. Briana Dillard PROTIMEon 11-28-2021 INR Coag (PPP) [Relative time] 1.01 {INR} Normal [facility] Comment on above: Performed By: #### P T, PTT, DDIM #### [facility] [address] [place] [address] Dr. Briana Dillard INR GUIDELINES SEE BELOW Normal [facility] Comment on above: Result Comment: LURDES RED INR: 2.0 - 3.0 CONDITIONS NOT LISTED BELOW 2.5 - 3.5 FOR PROSTHETIC HEART VALVE REPLACEMENT 2.5 - 3.5 RECURRENT THROMBOSIS Performed By: #### P T, PTT, DDIM #### [facility] [address] [place] [address] Dr. Briana Dillard PT Coag (PPP) [Time] 10.9 s Normal 9.0-11.6 [facility] Comment on above: Performed By: #### P T, PTT, DDIM #### [facility] [address] [place] [address] Dr. Briana Dillard PTTon 11-28-2021 aPTT Coag (Bld) [Time] 27.5 s Normal 22.3-36.2 [facility] Comment on above: Performed By: #### P T, PTT, DDIM #### [facility] [address] [place] [address] Dr. Briana Dillard TROPONIN, HIGH SENSITIVITYon 11-28-2021 HSTROP 5.5 pg/mL Normal 4.0-51.3 [facility] Comment on above: Result Comment: CUT- OFF POINTS HAVE BEEN ESTABLISHED BASED ON THE FOURTH UNIVERSAL DEFINITIONS OF MYOCARDIAL INFARCTION. THE UPPER REFERENCE LIMIT (URL) OF TROPONIN, DEFINED THE 99TH PERCENTILE OF cTnI DISTRIBUTION IN A REFERENCE POPULATION, HAS BEEN CONFIRMED THE DECISION THRESHOLD FOR [place] DIAGNOSIS. Performed By: #### C MP, CMADM, BNP #### [facility] [address] [place], [place] [address] Dr. Briana Dillard HSTROP 5.4 pg/mL Normal 4.0-51.3 [facility] Comment on above: Result Comment: CUT- OFF POINTS HAVE BEEN ESTABLISHED BASED ON THE FOURTH UNIVERSAL DEFINITIONS OF MYOCARDIAL INFARCTION. THE UPPER REFERENCE LIMIT (URL) OF TROPONIN, DEFINED THE 99TH PERCENTILE OF cTnI DISTRIBUTION IN A REFERENCE POPULATION, HAS BEEN CONFIRMED THE DECISION THRESHOLD FOR [place] DIAGNOSIS. Performed By: #### C MP, CMADM, BNP #### [facility] [address] [address] [address] Briana Dillard HSTROP 5.6 pg/mL Normal 4.0-51.3 [facility] Comment on above: Result Comment: CUT- OFF POINTS HAVE BEEN ESTABLISHED BASED ON THE FOURTH UNIVERSAL DEFINITIONS OF MYOCARDIAL INFARCTION. THE UPPER REFERENCE LIMIT (URL) OF TROPONIN, DEFINED THE 99TH PERCENTILE OF cTnI DISTRIBUTION IN A REFERENCE POPULATION, HAS BEEN CONFIRMED THE DECISION THRESHOLD FOR W[place] DIAGNOSIS. Performed By: #### C DARRIAN, CMADM, BNP #### [facility] [address] [address] [address] Briana Dillard XR CHEST 1 Von [...] NADJA KEMP Date: 2021-11-28 12:46 Normal [facility] Tobacco Screening.on 022 Adult depression screening assessment Yes -[facility] [facility] [address] DO Work Phone: Tobacco use status CPHS a) Yes M P-[facility] [facility] 250 DO Work Phone: Tobacco Screening. Yes -[facility] [facility] [address] DO Work Phone: Tobacco Screening. 1-Several days -[facility] y 250 DO Work Phone: Tobacco Screening. 0-Not at all [facility] Work Phone: Tobacco Screening. Not difficult at all [facility] y 250 DO Work Phone: Echocardiogramon 05-20-2021 Echocardiography [facility] [address] [facility], [address] [place] [address] TRANSTHORACIC ECHOCARDIOGRAM REPORT Patient Name: VIDHYA IBARRA Reading Physician: [id number] Ruma Dawn MD Study Date: 05/20/2021 Referring [id number] SHASHI COTTRELL Physician: MRN/PID: [id number] PCP: Accession/Order#: [id number] [facility] Location: Date of : 1955 Fellow: Gender: F Nurse: Admit Date: Power Distribution Engineer: Clarisse Sumner [facility], T Height: 160.02 cm CC Report to: Weight: 89.36 kg Study Type: Echocardiogram BSA: 1.92 m2 Blood Pressure: 166 /94 mmHg Diagnosis/ICD: I51.7-Cardiomegaly; R06.00-Dyspnea, unspecified Indication: Obesity, Tobacco Abuse Procedure/CPT: Echo Complete w Full [id number] Study Detail: The following Echo studies were [...] 0.9 m/s (0.6-0.9m/s) PV Max P.1 mmHg [id number] Ruma Dawn MD Electronically signed on 05/24/2021 at 5:25:[address] [facility] Tobacco Screening.on 022 Fall risk assessment a) No falls within the last year [facility] y 250 DO Work Phone: Tobacco use status CPHS a) Yes [facility] y 250 DO Work Phone: Fall risk assessment a) No falls within the last year [facility] 250 DO Work Phone: Tobacco use status CPHS a) Yes [facility] y 250 DO Work Phone: Tobacco Screening. Yes [facility] y 250 DO Work Phone: Bld Gas Venon 12-02-2019 Allens Test N/A [facility] Comment on above: Result Comment: [facility] Department of Pulmonary Medicine [address] [facility] [place] [address] Performed By: #### 1 [id number] #### [facility] [address] [place] [address] Called By: KATHY LAB [facility] Comment on above: Performed By: #### 1 [id number] #### [facility] [address] [place] [address] Called To: DR. CORINNE COFFMAN [facility] Comment on above: Performed By: #### 1 [id number] #### [facility] [address] [id number] Drawn by CLSerene [facility] Comment on above: Performed By: #### 1 [id number] #### [facility] [address] [place] [address] Dt/Tm Notified 17:42:00 F [facility] Comment on above: Performed By: #### 1 [id number] #### [facility] [address] [place] [address] pCO2 Guillaume 36.1 mmHg Low 38.0-50.0 [facility] Comment on above: Performed By: #### 1 [id number] #### [facility] [address] [place] [address] pH (BldV) 7.392 [pH] Normal 7.320-7.430 [facility] Comment on above: Performed By: #### 1 [id number] #### [facility] [address] [place] [address] Sample Site OTHER [facility] Comment on above: Performed By: #### 1 [id number] #### [facility] [address] [place] [address] Sample Type Venous [facility] Comment on above: Performed By: #### 1 [id number] #### [facility] [address] [place] [address] Physician Orderon 12-02-2019 Physician Order [id number]:[id number] Normal [facility] Vital Signs Date Time Vital Sign Value Performing Clinician Facility 06-24-2023 10:07-0500 Body height 160.02 cm MD Shaikh Mchugh Work Phone: [facility] 06-24-2023 10:07-0500 Body mass index (BMI) [Ratio] 34.2 kg/m2 MD Shaikh Mchugh Work Phone: [facility] 06-24-2023 10:07-0500 Body temperature 97.2 [degF] MD Shaikh Mchugh Work Phone: [facility] 06-24-2023 10:07-0500 Body weight 87.54 kg MD Shaikh Mchugh Work Phone: [facility] 06-24-2023 10:07-0500 Diastolic blood pressure 96 mm[Hg] MD Shaikh Mchugh Work Phone: [facility] 06-24-2023 10:07-0500 Heart rate 78 /min MD Shaikh Mchugh Work Phone: [facility] 06-24-2023 10:07-0500 Respiratory rate 16 /min MD Shaikh Mchugh Work Phone: [facility] 06-24-2023 10:07-0500 SaO2% (BldA) [Mass fraction] 95 % MD Shaikh Mchugh Work Phone: [facility] 06-24-2023 10:07-0500 Systolic blood pressure 160 mm[Hg] MD Shaikh Mchugh Work Phone: [facility] 03-24-2023 13:06-0500 Body temperature 97.8 [degF] MD Shaikh Mchugh Work Phone: [facility] 03-24-2023 13:06-0500 Body weight 86.63 kg MD Shaikh Mchugh Work Phone: [facility] 03-24-2023 13:06-0500 Diastolic blood pressure 67 mm[Hg] MD Shaikh Mchugh Work Phone: [facility] 03-24-2023 13:06-0500 Heart rate 68 /min MD Shaikh Mchugh Work Phone: [facility] 03-24-2023 13:06-0500 Respiratory rate 16 /min MD Shaikh Mchugh Work Phone: [facility] 03-24-2023 13:06-0500 SaO2% (BldA) [Mass fraction] 98 % MD Shaikh Mchugh Work Phone: [facility] 03-24-2023 13:06-0500 Systolic blood pressure 130 mm[Hg] MD Shaikh Mchugh Work Phone: [facility] 03-24-2023 12:53-0500 Body height 160.02 cm MD Shaikh Mchugh Work Phone: [facility] 03-11-2023 09:20-0500 Body height 162.56 cm Alta Sharmaine Other [employer] Other 03-11-2023 09:20-0500 Body mass index (BMI) [Ratio] 32.78 kg/m2 Alta Sharmaine Other [employer] Other 03-11-2023 09:20-0500 Body temperature 96.3 [degF] Alta Sharmaine Other [employer] Other 03-11-2023 09:20-0500 Body weight 86.64 kg Alta Sharmaine Other [employer] Other 03-11-2023 09:20-0500 Diastolic blood pressure 77 mm[Hg] Alta Sharmaine Other [employer] Other 03-11-2023 09:20-0500 Respiratory rate 18 /min Alta Sharmaine Other [employer] Other 03-11-2023 09:20-0500 SaO2% (BldA) [Mass fraction] 95 % Alta Sharmaine Other [employer] Other 03-11-2023 09:20-0500 Systolic blood pressure 139 mm[Hg] Alta Sharmaine Other [employer] Other 12-08-2022 08:41-0400 Body height 160.02 cm Shaikh Louisd [facility] Phone[facility] [employer] 250 DO Work Phone: 12-08-2022 08:41-0400 Body mass index (BMI) [Ratio] 32.95 kg/m2 Shaikh Louisd Work Phone: [facility] [employer] 250 DO Work Phone: 12-08-2022 08:41-0400 Body surface area Derived from formula 1.88 m2 Shaikh Louisd Work Phone: [facility] [employer] 250 DO Work Phone: 12-08-2022 08:41-0400 Body weight 84.37 kg Shaikh Louisd Work Phone: [employer] [facility] [address] DO Work Phone: 12-08-2022 08:41-0400 Diastolic blood pressure 60 mm[Hg] Shaikh Brightwad Work Phone: [facility] [address] DO Work Phone: 12-08-2022 08:41-0400 Heart rate 66 /min Shaikh Louisd Work Phone: [facility] 250 DO Work Phone: 12-08-2022 08:41-0400 Systolic blood pressure 108 mm[Hg] Dial Fawwad Work Phone: [facility] 250 DO Work Phone: 07-01-2021 13:12-0500 Diastolic blood pressure 88 mm[Hg] Dial Fawwad Work Phone: [facility] 250 DO Work Phone: 07-01-2021 13:12-0500 Systolic blood pressure 138 mm[Hg] Dial Fawwad Work Phone: [facility] 250 DO Work Phone: 07-01-2021 09:20-0500 Diastolic blood pressure 100 mm[Hg] Dial Fawwad Work Phone: [facility] 250 DO Work Phone: 07-01-2021 09:20-0500 Systolic blood pressure 148 mm[Hg] Dial Fawwad Work Phone: [facility] 250 DO Work Phone: 07-01-2021 09:01-0500 Diastolic blood pressure 98 mm[Hg] Dial Fawwad Work Phone: [facility] 250 DO Work Phone: 07-01-2021 09:01-0500 Systolic blood pressure 168 mm[Hg] Dial Fawwad Work Phone: [facility] 250 DO Work Phone: 07-01-2021 08:51-0500 Body height 160.02 cm Dial Fawwad Work Phone: [facility] 250 DO Work Phone: 07-01-2021 08:51-0500 Body mass index (BMI) [Ratio] 33.83 kg/m2 Shaikh Louisd Work Phone: [facility] 250 DO Work Phone: 07-01-2021 08:51-0500 Body surface area Derived from formula 1.9 m2 Shaikh Jeison Work Phone: [facility] 250 DO Work Phone: 07-01-2021 08:51-0500 Body weight 86.64 kg Shaikh Louisd Work Phone: [facility] 250 DO Work Phone: 07-01-2021 08:51-0500 Diastolic blood pressure 104 mm[Hg] Shaikh Louisd Work Phone: [facility] 250 DO Work Phone: 07-01-2021 08:51-0500 Heart rate 87 /min Shaikh Jeison Work Phone: [facility] 250 DO Work Phone: 07-01-2021 08:51-0500 Systolic blood pressure 169 mm[Hg] Shaikh Louisd Work Phone: [facility] 250 DO Work Phone: 07-01-2021 08:51-0500 6 1 Shaikh Brightwad Work Phone: [facility] 250 DO Work Phone: Comment on above: PHQ-9 TS 05-24-2021 10:00-0500 Body height 162.56 cm Juan Gonzalez Other [employer] Other 01-21-2022 10:00-0500 Body mass index (BMI) [Ratio] 32.44 kg/m2 Juan Gonzalez Other [employer] Other 05-24-2021 10:00-0500 Body weight 85.73 kg Juan Gonzalez Other [employer] Other 05-20-2021 10:45-0500 60 1 Shaikh Nolbertowwad Work Phone: [facility] [address] [place] Work Phone: Comment on above: [id number] 05-13-2021 11:59-0500 Diastolic blood pressure 104 mm[Hg] Dial Nolbertowwad Work Phone: [facility] 250 DO Work Phone: 05-13-2021 11:59-0500 Systolic blood pressure 162 mm[Hg] Dial Nolbertowwad Work Phone: [facility] 250 DO Work Phone: 05-13-2021 11:13-0500 Diastolic blood pressure 100 mm[Hg] Dial Fawwad Work Phone: [facility] 250 DO Work Phone: 05-13-2021 11:13-0500 Systolic blood pressure 170 mm[Hg] Dial Nolbertowwad Work Phone: [facility] 250 DO Work Phone: 05-13-2021 11:12-0500 Body height 160.02 cm Dial Fawwad Work Phone: [facility] 250 DO Work Phone: 05-13-2021 11:12-0500 Body mass index (BMI) [Ratio] 34.9 kg/m2 Dial Fawwad Work Phone: [facility] 250 DO Work Phone: 05-13-2021 11:12-0500 Body surface area Derived from formula 1.92 m2 Shaikh Louisd Work Phone: [facility] 250 DO Work Phone: 05-13-2021 11:12-0500 Body weight 89.36 kg Shaikh Jeison Work Phone: [facility] 250 DO Work Phone: 05-13-2021 11:12-0500 Diastolic blood pressure 102 mm[Hg] Shaikh Jeison Work Phone: [facility] 250 DO Work Phone: 05-13-2021 11:12-0500 Heart rate 88 /min Shaikh Jeison Work Phone: [facility] 250 DO Work Phone: 05-13-2021 11:12-0500 Systolic blood pressure 172 mm[Hg] Shaikh Jeison Work Phone: [facility] 250 DO Work Phone: 05-13-2021 11:07-0500 Body height 160.02 cm Shaikh Jeison Work Phone: [facility] 250 DO Work Phone: 05-13-2021 11:07-0500 Body mass index (BMI) [Ratio] 34.9 kg/m2 Shaikh Brightwad Work Phone: [facility] 250 DO Work Phone: 05-13-2021 11:07-0500 Body surface area Derived from formula 1.92 m2 Shaikh Brightwad Work Phone: [facility] 250 DO Work Phone: 05-13-2021 11:07-0500 Body weight 89.36 kg Shaikh Jeison Work Phone: [facility] 250 DO Work Phone: 05-13-2021 11:07-0500 Heart rate 88 /min Shaikh Jeison Work Phone: [facility] 250 DO Work Phone: 04-09-2021 11:40-0500 Body height 162.56 cm Juan Gonzalez Other [employer] Other 04-09-2021 11:40-0500 Body mass index (BMI) [Ratio] 32.44 kg/m2 Juan Gonzalez Other [employer] Other 04-09-2021 11:40-0500 Body weight 85.73 kg Juan Gonzalez Other [employer] Other 04-09-2021 11:40-0500 Diastolic blood pressure 72 mm[Hg] Juan Gonzalez Other [employer] Other 04-09-2021 11:40-0500 Systolic blood pressure 124 mm[Hg] Juan Gonzalez Other [employer] Other Encounters Encounter Date Encounter Type Care Provider Facility Start: 07-13-2023 End: 07-13-2023 ambulatory SHAIKH JEISON Not Available Start: 07-10-2023 End: 07-10-2023 ambulatory EZRA VILLA V Not Available Start: 07-03-2023 ambulatory Yakelin Staley Facility:[facility] Start: 07-03-2023 End: 07-03-2023 ambulatory EZRA VILLA V Not Available Start: 06-24-2023 End: 06-24-2023 ambulatory MD Shaikh Mchugh Work Phone: [facility] Work Phone: Start: 06-24-2023 End: 06-24-2023 Patient encounter procedure MD Shaikh Mchugh Work Phone: [facility] Work Phone: Start: 06-24-2023 Registered Recurring MD Shaikh [facility]ugh [facility] Work Phone: Start: 06-01-2023 End: 06-02-2023 ambulatory Radha Dunaway MD [facility] Start: 05-11-2023 End: 05-12-2023 ambulatory Radha Dunaway MD Facility:[facility] Start: 04-13-2023 Telephone encounter Neena Hi [facility] Start: 04-13-2023 End: 04-13-2023 ambulatory SHAIKH JEISON [facility] Other Start: 04-06-2023 End: 04-07-2023 ambulatory Radha Dunaway MD Facility:[facility] Start: 03-24-2023 End: 03-24-2023 ambulatory MD Shaikh Mchugh Work Phone: [facility] Work Phone: Start: 03-24-2023 End: 03-24-2023 Registered Recurring MD Shaikh Mchugh [facility] Work [facility]: Start: 03-11-2023 End: 03-11-2023 ambulatory Alta Schmid Other [facility] Other Start: 03-11-2023 Office outpatient vi sit 25 minutes Alta Schmid [facility] [place] Start: 03-04-2023 End: 03-04-2023 ambulatory Alta Sharmaine Facility:[facility] Start: 03-04-2023 End: 03-04-2023 ambulatory MD Shaikh Mchugh Work Phone: [facility] Work Phone: Start: 03-04-2023 End: 03-04-2023 Patient encounter procedure MD Shaikh Mchugh Work Phone: [facility] [place] Work Phone: Start: 12-08-2022 Office outpatient vi sit 15 minutes Shaikh Jeison Work Phone: [facility] 250 DO Work Phone: Start: 12-08-2022 Patient encounter procedure Shaikh Jeison Work Phone: [facility] 250 DO Work Phone: Start: 12-08-[address] Shashi Cottrell II Facility: Start: 11-10-2022 End: 11-11-2022 ambulatory Radha Dunaway MD Facility:[facility] Start: 10-16-2022 ambulatory SHAIKH Gurjit HERNADEZD Facilit y:[facility] Start: 09-18-2022 End: 09-18-2022 ambulatory Alta Sharmaine Facility:[facility] Start: 07-17-2022 End: 07-18-2022 ambulatory DIAL H FAWWAD Facility:[facility] Start: 06-29-2022 Rx Renewal Dial Fawwaalex Work Phone: [facility] 250 DO Work Phone: Start: 06-28-2022 End: 06-29-2022 ambulatory DIAL H NOLBERTOWWAD Facility:[facility] Start: 06-12-[address] [...] Start: 07-01-2021 AUDIT Dial Fawwad Work Phone: [facility] 250 DO Work Phone: Start: 05-28-2021 FUV, Provider: Shashi Cottrell, Status: Pen, Time: 10:50 AM Dial Fawwad Work Phone: [facility] 250 DO Work Phone: Start: 05-26-2021 Chart Update Dial Fawwad Work Phone: [facility] 250 DO Work Phone: Start: 05-24-2021 End: 05-24-2021 ambulatory Juan Gonzalez Other [facility] Other Start: 05-24-2021 Office outpatient vi sit 15 minutes Juan Gonzalez [facility] [place] Neurosurgery Start: 05-20-2021 Patient encounter procedure Dial Fawwad Work Phone: [facility] [address] [place] Work Phone: Start: 05-13-2021 Office consultation new/estab patient 60 min Dial Fawwad Work Phone: [facility] [address] [place] Work Phone: Start: 04-09-2021 End: 04-09-2021 ambulatory Juan Gonzalez Other [facility] Other Start: 04-09-2021 Office outpatient ne w 45 minutes Juan Gonzalez [facility] [place] Neurosurgery Procedures Date Procedure Procedure Detail Performing Clinician Start: 03-04-2023 Urine culture MD Shaikh Mchugh Work Phone: Start: 05-20-2021 Echocardiography Shaikh Jeison Work Phone: Cardiac catheterization Wayne Mchugh Work Phone: Cholecystectomy Shaikh Louis johnson Work Phone: Dilation and curettage Shaik gurjit Mchugh Work Phone: Total colonoscopy Shaikh Bright [place] Work Phone: Plan of Treatment Date Care Activity Detail Author Start: 06-24-2023 Patient referral [facility] Work Phone: Start: 03-04-2023 Bacteria identified in Urine by Culture [facility] Start: 12-12-2022 FUV, Provider: Shashi Cottrell, Status: Pen, Time: 3:20 PM FUV, Provider: Shashi Cottrell, Status: Pen, Time: 3:[address] [facility] 250 DO Work Phone: Start: 01-10-2022 FUV, Provider: Shashi Cottrell, Status: Pen, Time: 2:00 PM FUV, Provider: Shashi Cottrell, Status: Pen, Time: 2:[address] [facility] [facility] [place] Work Phone: Start: 07-01-2021 FUV, Provider: Shashi Cottrell, Status: Pen, Time: 8:40 AM FUV, Provider: Shashi Cottrell, Status: Pen, Time: 8:[address] [facility] [address] [place] Work Phone: Start: 05-28-2021 FUV, Provider: Shashi Cottrell, Status: Pen, Time: 10:50 AM FUV, Provider: Shashi Cottrell, Status: Pen, Time: 10:[address] [facility] 250 DO Work Phone: Start: 05-20-2021 ECHO, [facility] ,[id number], Status: Pen, Time: 10:45 AM ECHO, Provider: [facility] ,[id number], Status: Pen, [facility]: 10:45 [facility] Work Phone: MG Breast - bilatera l Screening [facility] Patient referral [facility] Work Phone: [facility] Immunizations Immunization Date Immunization Notes Care Provider Nolberto saul 10-20-2020 pneumococcal polysaccharide vaccine, 23 valent Shaikh Jeison Work Phone: [facility] 250 DO Work Phone: 08-23-2020 COVID-19 Vaccine Mod jasson - Documentation Purposes Only Juan Gonzalez Other [facility] 05-04-2020 pneumococcal conjuga te vaccine, 13 valent Shaikh Jeison Work Phone: [facility] 250 DO Work Phone: Comment on above: Series: 02-03-2020 Influenza, injectabl e, Madin [place] Canine Kidney, preservative free, quadrivalent Shaikh Jeison Work Phone: [facility] 250 DO Work Phone: 02-09-2019 Vaxneuvance 0.5 ML Intramuscular Suspension Prefilled Syringe Shaikh Jesion Work Phone: [facility] 250 DO Work Phone: 04-05-2017 influenza, injectabl e, quadrivalent, preservative free Shaikh Jeison Work Phone: [facility] [address] DO Work Phone: Payers Date Payer Category Payer Self-pay [id number] 2022 Medicaid [id number] 2022 Private Health Insurance 1959 Medicare [id number] 2.16. [id number] 1955 Unknown [id number] 2.16.84 0.1.189902.3.579.2.593 1955 Unknown [id number] 2.16.84 0.1.016847.3.579.2.593 1955 Unknown [id number] 2.16.84 0.1.323899.3.579.2.593 1955 Unknown [id number] 2.16.84 0.1.059125.3.579.2.593 1955 Unknown [id number] 2.16.84 0.1.535010.3.579.2.593 1955 Unknown [id number] 2.16.84 0.1.267156.3.579.2.593 1955 Unknown [id number] 2.16.84 0.1.240729.3.579.2.593 1955 Unknown [id number] 2.16.84 0.1.690717.3.579.2.593 1955 Unknown [id number] 2.16.84 0.1.369947.3.579.2.593 1955 Unknown [id number] 2.16.84 0.1.476018.3.579.2.593 1955 Unknown [id number] 2.16.84 0.1.613722.3.579.2.593 1955 Unknown [id number] 2.16.84 0.1.717555.3.579.2.593 1955 Unknown [id number] 2.16. 840.1.919578.3.579.2.356 1955 Unknown [id number] 2.16. 840.1.176957.3.579.2.356 1955 Unknown [id number] 2.16. 840.1.086717.3.579.2.196 1955 Unknown [id number] 2.16. 840.1.759159.3.579.2.196 1955 Unknown [id number] 2.16. 840.1.874846.3.579.2.196 1955 Unknown [id number] 2.16. 840.1.324582.3.579.2.196 1955 Unknown [id number] 2.16.84 0.1.436052.3.579.2.1259 1955 Unknown [id number] 2.16.84 0.1.231022.3.579.2.1259 1955 Unknown [id number] 2.16.84 0.1.862556.3.579.2.1259 1955 Unknown [id number] 2.16.840 .1.078116.3.579.2.1259 Medicare [id number] 2.1 6.840.1.374630.19 Unknown Unknown [id number] 2.16.8 40.1.429621.3.579.2.531 Unknown [id number] 2.16.8 40.1.611755.3.579.2.531 Unknown [id number] 2.16.8 40.1.211302.3.579.2.531 Social History Date Type Detail Facility Daily caffeine consumption Daily caffeine consumption [facility] DO Work Phone: Comment on above: 2-3 cups of coffee d aily.; 1/2 pack daily.; Sex Assigned At Sex Assigned At Bir th [facility] Other Start: 01-24-2021 End: 06-24-2023 Tobacco smoking status NHIS Smoker (finding) [facility] Start: 1955 Sex Assigned At Female F [facility] Functional Status Date Assessment Result Facility 07-01-2021 PHQ-9 [id number] Mild (5-9) [facility] [address] DO Work Phone: Clinical Notes [...] I have prescribed oral magnesium once daily. [facility] Other 03-16-2023 NotePAIN MANAGEMENT CONSULTATION CONSULTATION DATE: [...] in three months' time unless otherwise indicated.[id number] NoteCONSULTATION CONSULTATION DATE: 04/10/2022 HISTORY OF PRESENT [...] weeks ago, and she completed those in [place]. She is continuing her home exercises as [...] thereafter. Patient does agree with this plan.[facility] [id number] NoteCONSULTATION CONSULTATION DATE: 01/09/2022 HISTORY OF PRESENT [...] weeks. Patient prefers to do this in [place]. She will be followed up in the office in three months' time and was encouraged to take a multivitamin daily. Patient agrees with this plan of care. [facility] [id number] NoteCONSULTATION CONSULTATION DATE: 10/17/2021 HISTORY OF PRESENT [...] in three months' time unless otherwise indicated. [facility] Signed and Approved by: EVA ROSEN . 10/30/2021 16:23:00[facility]06-16-2022 NoteCONSULTATION PROCEDURE DATE:10/17/2021 PREOPERATIVE DIAGNOSIS: Bilateral lumbar [...] will be followed up in the office. [facility] Signed and Approved by: EVA ROSEN . 10/30/2021 16:23:00[facility]01-21-2022 Evaluation note* Encounter Date Diagnosis Assessment Notes [...] at this point no intervention is needed. [facility] Other 12-07-2021 Evaluation note* Encounter Date Diagnosis [...] - M50.123) Apr, Cardiomegaly (ICD-10 - I51.7) [facility] Other 01-15-2021 History of Present illness Narrative* [...] she will follow-up after testing is completed [facility] Work Phone: 1(105) 993-763001-10-2021 History of Present illness Narrative* Patient is [...] she will follow-up after testing is completed [facility] DO Work Phone: 1(817) 549-917608-01-2020 History general Narrative - Reported* Type Description Date Medical History TYPE II DIABETES Medical History HYPERTENSION Medical History ENLARGE HEART Surgical History CHOLECYSTECTOMY Hospitalization History PNEUMONIA 12/2019 [facility] Other chief complaint Narrative - ReportedLINCRISTINA IBARRA is being seen for a consultation [facility]galy.[facility] Work Phone: Chiep complaint Narrative - ReportedVIDHYA IBARRA is being seen for a consultation for cardiomegaly.[facility] Work Phone: Consult note Author Yakelin Staley [facility] March 25, 2023 10:10am Note Date/Time March 24, 2023 1:49pm [facility] [place] [address] Hem/Onc Consult Note - OP Signed Patient: Vidhya Ibarar MR#: [id number] : 1955 Acct:[id number] Age/Sex: 67 / F Type: REG RCR [...] any worse than it does when touched. [facility] - Medical History Medical History: Medical History [...] for coordination of care (as documented) and [id number] counseling of patient and/or family. Dictated By: Yakelin Staley APRN DD/ 1349 Signed By: <Electronically signed by JOSE Staley> 03/25/23 1010 [facility] Work Phone: Evaluation noteNo assessment information available [facility] Work Phone: Evaluation noteNo InformationNort [employer] Other Evaluation note* Diagnosis Onset Date Resolution Status Leukocytosis acute Breast nodule acute Leukocytosis acute Recurrent boils acute Yeast infection acute [facility] Work Phone: History of Present illness Narrative* [...] weight loss and more importantly smoking cessation. [facility] [address] DO Work Phone: Hospital Discharge instructionsAmbulatory Orders* Referral to General Surgery Time Frame: 06/24/23, Location: None Selected [facility] Work Phone: Progress note Author Rebeca Ashraf [facility] June 24, 2023 10:45am Note Date/Time June 24, 2023 10:07am [facility] [place] [address] Cancer Center Note Signed Patient: Vidhya Ibarra MR#: [id number] : 1955 Acct:[id number] Age/Sex: 67 / F Type: REG AMB [...] % (Auto) 74.3 Lymph % (Auto) 18.0 [place]oup % (Auto) 5.2 Eos % (Auto) 1.7 Baso % (Auto) 0.8 Nucleat RBC Rel Count 0.1 Neut # (Auto) 10.6 H Lymph # (Auto) 2.6 Troup # (Auto) 0.7 Eos # (Auto) 0.2 [...] signed by Rebeca Ashraf MD> 06/24/23 1045 [facility] Work Phone: Summary Purpose Family History No [...] Treat Diagnosis 1 Cardiomegaly (I51.7) Referral Organization [facility] urosurgery Referring Provider First Name Juan Referring Provider Last Name Carlos Referring Provider Specialty Neurologica l Surgery Referred Organization [facility] Referred Provider Jason Johnson Referred Address [address],[place], [place],[address] Referred Provider Specialty Cardiac Surg nicholas Referral Priority Routine General Notes Neena Estevez 021 08:49:37 AM >Received today and waiting for office notes to be lockedNeena Estevez 04/16/2021 03:27:00 PM >[facility] office request us to fax the referral to them and they will review and call patient to schedule their appointment. Referral was fax Reason Evaluate and Treat Diagnosis 1 Cervical disc disord er at C5-C6 level with radiculopathy (M50.122) Referral Organization [facility] urosurgery Referring Provider First Name Juan [...] and content) DATE CREATED AUTHOR 12/03/[address] [facility] DATE CREATED AUTHOR AUTHOR'S ORGANIZ ATION 05/26/2021 [facility] DATE CREATED AUTHOR AUTHOR'S ORGANIZ ATION 10/10/2022 [facility] DATE CREATED AUTHOR AUTHOR'S ORGANIZ ATION 12/08/2022 [facility] DATE CREATED AUTHOR AUTHOR'S ORGANIZ ATION 12/09/2022 [employer] DATE CREATED AUTHOR AUTHOR'S ORGANIZ ATION 07/05/2023 [facility] DATE CREATED AUTHOR AUTHOR'S ORGANIZ ATION 07/08/2023 [facility] DATE CREATED AUTHOR AUTHOR'S ORGANBEATRIZ ATION 07/14/2023 [facility] EPIC REASON FOR VISIT [...] Active Team Status: Active Member Role Status Tena Mchugh MD Primary Care Provider Active Yakelin [...] BE BASED ON THE PRIMARY CLINICAL RECORDS. [employer] provides no warranty or guarantee of the accuracy or completeness of information in this document.
[2023-07-18 08:28] LABS: Estimated Average Glucose 166 mg/dL; Glycohemoglobin A1C 7.4 % (4.5-6.2)
[2023-07-18 09:38] LABS: Chol HDL Ratio 2.9; Cholesterol 126 mg/dL (<=200); HDL Cholesterol 44 mg/dL (40-60); Triglycerides 196 mg/dL (<=150); VLDL CHOLESTEROL 39.2 mg/dL
== END 2023-07-18 08:08 | disposition home or self-care (01) ==
LOC: LAB 08:07
PROVIDERS: PCP Internal Medicine; Visit Provider Internal Medicine
DX: E11.22 Type 2 diabetes mellitus with diabetic chronic kidney disease (principal); N18.31 Chronic kidney disease, stage 3a; Z79.4 Long term (current) use of insulin; E78.5 Hyperlipidemia, unspecified
CPT/HCPCS: 36415; 80061; 83036

== ENCOUNTER → 2023-08-24 10:21 | Day surgery (SDC) | payer MEDICARE, SELFPAY ==
[2023-08-24 10:44] LABS: Glucometer 427 mg/dL (74-106)
[2023-08-24 11:38] LABS: Glucometer 383 mg/dL (74-106)
== END | disposition home or self-care (01) ==
LOC: SURGOUT 10:22
PROVIDERS: PCP Internal Medicine; Visit Provider Anesthesiology
PROC: (CPT 64483; principal; 2023-08-24 11:40)
DX: Z53.9 Procedure and treatment not carried out, unspecified reason (principal); Z79.4 Long term (current) use of insulin; Z79.84 Long term (current) use of oral hypoglycemic drugs
CPT/HCPCS: 64483; 36415; 82948

== ENCOUNTER 2023-09-07 07:45 | Day surgery (SDC) | payer MEDICARE, SELFPAY ==
--- OUTSIDE RECORDS SUMMARY | 2023-09-07 08:06 | XMS_ITS | CCD ---
Author Organization [facility] Care Team Providers Care [employer] Name Role Phone YaimaShaikh galeano Unavailable Unavailable Unavailable Juan Gonzalez Unavailable Unavailable Unavailable NAVEEN ., DR ELIGIO Burns Admitting Unavailable HODGE ., DR ELIGIO Burns Consulting Unavailable HODGE ., DR ELIGIO Burns Attending Unavailable [facility], [facility] Primary Care Unavailable JUAN ANTONIO LOMELI Consulting Unavailable HODGE ., DR ELIGIO Burns Admitting Unavailable [facility], [facility] Primary Care Unavailable ROSEN ., EVA Consulting Unavailable HODGE ., DR ELIGIO Burns Attending Unavailable HODGE ., DR ELIGIO Burns Admitting [facility] Primary Care Unavailable ROSEN ., EVA Consulting Unavailable HODGE ., DR ELIGIO Burns Attending [facility] Primary Care Unavailable LAKSHMIPATHY ., NARENDRANATH Admitting Catrina vailable LAKSHMIPATHY ., NARENDRANATH Attending Catrina vailable HODGE ., DR ELIGIO Burns Admitting [facility]available [facility] Primary Care Unavailable ROSEN ., EVA Consulting Unavailable HODGE ., DR ELIGIO Burns Attending [facility] Primary Care Unavailable ROSEN ., EVA Consulting Unavailable HODGE ., DR ELIGIO Burns Attending Unavailable HODGE ., DR ELIGIO Burns Admitting Unavailable ROSEN ., EVA Consulting Unavailable HODGE ., DR ELIGIO Burns Admitting Unavailable NEENA MACK Primary Care Unavailable HODGE ., DR ELIGIO Burns Attending [facility]available [facility] Primary Care Unavailable [facility] Consulting [facility] Attending Unavailable [facility], DIAL H Admitting [...] [facility], [facility] H Primary Care Unavailable ROSEN . EVA Consulting Unavailable HODGE ., DR ELIGIO Burns Attending Unavailable NAVEEN ., DR ELIGIO Burns Admitting Unavailable HODGE ., DR ELIGIO Burns Admitting Unavailable [facility] Primary Care Unavailable HODGE ., DR ELIGIO Burns Consulting Unavailable HODGE ., DR ELIGIO Burns Attending Unavailable McGuinn II, Dr. Shashi Salas Attending Unavailable McGuinn II, Dr. Shashi Salas Referring Unavailable McGuinn II, Dr. Shashi Salas Attending Unavailable MD Jeison [facility] Primary Care Provider [phone] MD Alta Schmid Attending Provider [phone] Alta Schmid Unavailable MD Jeison [facility] Primary Care Provider MD Alta Schmid Attending Provider JOSE Staley Attending Provider MD Alta Schmid Referring Provider Neena Hi Unavailable MD Jeison [facility] Primary Care Provider JOSE Staley Attending Provider MD Alta cShmid Referring Provider Gume PRAJAPATI, Andrius Hawkins Attending Unavailable Gume PRAJAPATI, Andrius Vxuan Attending Unavailable Gume PRAJAPATI, Andrius Vxuan Attending Unavailable Gume PRAJAPATI, Andrius Vxuan Attending Unavailable EZRA MCKAY Attending Unavailable EZRA MCKAY Attending Unavailable SHAIKH MCHUGH Referring Unavailable SHAIKH MCHUGH Attending Unavailable SHAIKH MCHUGH Attending Unavailable MD Yojana Mchugh Primary Care Provider MD Alta Schmid Referring Provider [phone] MD Rebeca Ashraf Attending Provider [phone] Sharmaine, Alta Admitting Unavailable Alta Schmid Attending Unavailable Shaikh Mchugh Primary Care Unavailable Sharmaine, Alta Attending Unavailable Shaikh Mchugh Primary Care Unavailable Sharmaine, Alta Admitting Unavailable Sharmaine, Alta Referring Unavailable Rebeca Asharf Admitting Unavailabl e Rebeca Ashraf Attending Unavailabl e Shaikh Mchugh Primary Care Unavailable Allergies Allergy Classification Reported Allergen(s) Allergy Type Date of Onset Reaction(s) Facility (14 sources) predniSONE; Translations: [predniSONE] Drug Allergy 1 Hives, Unknown [facility] (2 sources) predniSONE Drug Allergy 5 [facility] (1 source) predniSONE Drug Allergy 4 [facility] Medications Current Medications Medication Drug Class(es) Dates Sig (Normalized) Sig (Original) acetaminophen 325 mg / oxyCODONE hydrochloride 5 mg oral tablet (19 sources) Opioid Agonist Start: 01-24-2021 End: 03-23-2023 take 1 tablet by mouth twice daily Oxycodone-Acetami nophen Active 1 TAB PO Twice daily March 23, 2023 1:00am take 1 tablet by rafat th every twelve hours as needed for pain Percocet 5-325 MG Oral Tablet TAKE 1 TAB LET EVERY 12 HOURS NEEDED FOR PAIN. Quantity: 0 Refills: 0 Ordered: 13-May-2021 DO Active atorvastatin 40 mg oral tablet (5 sources) HMG-CoA Reductase Inhibitor Start: 03-23-2023 take 40 mg by mouth once daily Atorvastatin Active 40 MG PO Daily March 23, 2023 1:00am bumetanide 0.5 mg oral tablet (19 sources) Loop Diuretic Start: 01-24-2021 End: 03-23-2023 take 0.5 mg by mouth once daily Bumetanide Active 0.5 MG PO Daily March 23, 2023 1:00am take 1 tablet by rafat th every twenty-four hours Bumetanide 0.5 MG 1 TAB BY MOUTH Orally every 24 hrs Active doxycycline hyclate 100 mg oral tablet (2 sources) Tetracycline-class Drug Start: 06-24-2023 take 2 tablets by mouth once daily Doxycycline Hyclate Active 100 MG PO Twice daily June 24, 2023 1:00am take 2 tablets daily for 14 days gabapentin 600 mg oral tablet (19 sources) Anti-epileptic Agent Start: 03-23-2023 take 600 mg by mouth three times daily Gabapentin Active 600 MG PO Three times daily March 23, 2023 1:00am Start: 01-24-2021 End: 03-23-2023 take 400 mg by mouth three times daily Gabapentin Discontinued 400 MG PO Three times daily January 24, 2021 12:00am March 23, 2023 3:48pm glipiZIDE 10 mg oral tablet (19 sources) Sulfonylurea Start: 03-23-2023 take 10 mg by mouth twice daily Glipizide Active 10 MG PO Twice daily March 23, 2023 1:00am Start: 01-24-2021 End: 03-23-2023 take 10 mg by mouth once daily Glipizide Discontinued 10 MG PO Daily January 24, 2021 12:00am March 23, 2023 3:48pm take 1 tablet by rafat th once [...] / losartan potassium 100 mg oral tablet (5 sources) Thiazide Diuretic, Angiotensin 2 Receptor Niko Start : 03-23 take 1 tablet by mouth once daily Losartan-Hydrochlorothia zide Active 1 TAB PO Daily March 23, 2023 1:00am 3 ml insulin isophane, human 100 unt/ml pen injector (2 sources) NovoLIN N FlexPe n 100 UNIT/ML as directed Subcutaneous 20 UNITS TWICE A DAY Active Insulin Nph And Regular Human (3 sources) Insulin Start : 03-24 Insulin Nph And Regular Human (Novolin 70-30 Flexpen U-100) 100 unit/mL (70-30) Insulin Pen Active 20 UNIT SUBCUT Twice daily March 24, 2023 1:00am Start: 03-24-2023 Insulin Nph An d Regular Human (Novolin 70-30 Flexpen U-100) 100 unit/mL (70-30) Insulin Pen Active 20 UNIT SUBCUT Twice daily March 24, 2023 12:00am Magnesium (2 sources) Start: 03-11-2023 take 1 tablet by mouth once daily Magnesium 400 MG 1 Tablet Orally Once a day for 90 days Mar, Active magnesium oxide 250 mg oral tablet (2 sources) take 1 tablet by mouth once daily at mealtime Magnesium Oxide 250 MG 1 tablet with food Orally Once a day Active metoprolol tartrate 50 mg oral tablet (19 sources) beta-Adrenergic Niko Start: 03-23-2023 take 50 mg by mouth twice daily Metoprolol Tartrate Active 50 MG PO Twice daily March 23, 2023 1:00am Start: 01-24-2021 End: 03-23-2023 take 50 mg by mouth three times daily Metoprolol Tartrate Discontinued 50 MG PO Three times daily January 24, 2021 12:00am March 23, 2023 3:48pm take 2 tablets by mo [facility] once daily Metoprolol Tartrate 50 MG Oral Tablet TAKE 2 TABLETS DAILY. Quantity: 0 Refills: 0 Ordered: 01-Jul-2021 DO Active take 1 tablet by rafat once daily Metoprolol Tartrate 50 MG Oral Tablet TAKE 1 TABLET EVERY 12 HOURS DAILY. Quantity: 0 Refills: 0 Ordered: 13-May-2021 DO Active nystatin 100 unt/mg topical powder (2 sources) Polyene Antifungal Start: 06-24-2023 Nystatin Ac tive 1 APPLIC TOPICAL Twice daily June 24, 2023 1:00am apply to dry skin under breasts 2 times daily PARoxetine hydrochloride 20 mg oral tablet (13 sources) Serotonin Reuptake Inhibitor Start: 03-23-2023 take 20 mg by mouth once daily Paroxetine Hcl Active 20 MG PO Daily March 23, 2023 1:00am Start: 01-24-2021 End: 03-23-2023 take 10 mg by mouth once daily Paroxetine Hcl Disconti nued 10 MG PO Daily January 24, 2021 12:00am March 23, 2023 3:48pm pramipexole dihydrochloride 0.5 mg oral tablet (5 sources) Nonergot Dopamine Agonist Start: 03-23-2023 take 0.5 mg by mouth once daily Pramipexole Active 0.5 MG PO Daily March 23, 2023 1:00am rOPINIRole 0.5 mg oral tablet (2 sources) Nonergot Dopamine Agonist take 1 tablet by mouth once daily at bedtime rOPINIRole HCl 0.5 MG 1 tablet 1 to 3 hours before bedtime Orally Once a day Active traZODone hydrochloride 100 mg oral tablet (19 sources) Serotonin Reuptake Inhibitor Start: 03-23-2023 take 100 mg by mouth once daily at bedtime Trazodone Active 100 MG PO Daily at bedtime March 23, 2023 1:00am Start: 01-24-2021 End: 03-23-2023 take 150 mg by mouth at bedtime Trazodone Discontinued 150 MG PO Bedtime January 24, 2021 12:00am March 23, 2023 3:48pm take 1 tablet by rafat th at [...] Sig (Original) allopurinol 300 mg oral tablet (14 sources) Xanthine Oxidase Inhibitor Start: 1 End: 3 take 300 mg by mouth once daily Allopurinol Discontinued 300 MG PO Daily January 24, 2021 12:00am March 23, 2023 3:48pm amLODIPine 2.5 mg oral tablet (4 sources) Dihydropyridine Calcium Channel Niko Start: 1 End: 3 take 2.5 mg by mouth once daily Amlodipine Discontinued 2.5 MG PO Daily January 24, 2021 12:00am March 23, 2023 3:48pm celecoxib 50 mg oral capsule (6 sources) Nonsteroidal Anti-inflammatory Drug take 1 capsule by mouth twice daily Celecoxib 50 MG Oral Capsule TAKE 1 CAPSULE TWICE DAILY. Quantity: 0 Refills: 0 Ordered: 13-May-2021 DO Active cephalexin 500 mg oral capsule (2 sources) Cephalosporin Antibacterial Start: 3 End: 4 take 500 mg by mouth three times daily Cephalexin Discontinued 500 MG PO Three times daily 15 5 March 24, 2023 1:00am June 24, 2023 11:13am hydroCHLOROthiazide 12.5 mg / lisinopril 10 mg [...] DO Active lisinopril 2.5 mg oral tablet (6 sources) Angiotensin Converting Enzyme Inhibitor Start: 1 End: 3 take 2.5 mg by mouth once daily Lisinopril Discontinued 2.5 MG PO Daily January 24, 2021 12:00am March 23, 2023 3:48pm lovastatin 40 mg oral tablet (12 sources) HMG-CoA Reductase Inhibitor Start: 1 End: 3 take 40 mg by mouth once daily Lovastatin Discontinued 40 MG PO Daily January 24, 2021 12:00am March 23, 2023 3:48pm metFORMIN hydrochloride 500 mg oral tablet (12 sources) Biguanide Start: 1 End: 3 take 500 mg by mouth twice daily Metformin Discontinued 500 MG PO Twice daily January 24, 2021 12:00am November 20th, 2023 3:48pm metFORMIN HCl 10 00 MG 1 /2 [...] DO Active tiZANidine 4 mg oral tablet (12 sources) Central alpha-2 Adrenergic Agonist Start: 01-24-2021 End: 03-23-2023 take 4 mg by mouth twice daily Tizanidine Discontinued 4 MG PO Twice daily January 24, 2021 12:00am March 23, 2023 3:48pm Zanaflex CAPS TA KE 1 CAPSULE TWICE [...] Onset: 3 Diseases of white blood cells (12 sources) Elevated white blood cell count, unspecified; [...] status; Translations: [Other specified vaccination] Episodic Mycoses (5 sources) Mycosis; Translations: [Candidiasis, unspecified] 06-24-2023 Episodic Nonmalignant breast conditions (6 sources) Other specified disorders of breast; Translations: [...] 3 Chronic Skin and subcutaneous tissue infections (5 sources) Furuncle; Translations: [Furuncle, unspecified] 06-24-2023 Episodic [...] 11-28-2021 Episodic Other aftercare (1 source) Other care home (current) drug therapy; Translations: [OTH GROUP HOME CURRENT DRUG THERAPY] Onset: 12-04-2021 Episodic Other [...] Test Name Value Interpretation Reference Range Facility Albumin [Mass/volume] in Ser um or Plasma by Bromocresol green (BCG) dye binding methoOrdered By: Alta Schmid on 07-31-2023 Albumin BCG dye [Mass/Vol] 4.0 g/dL 3.5-5.7 [facility] Automated erythrocytes count in urine sediment (number/area)Ordered By: Alta Schmid on 07-31-2023 RBC Auto (Urine sed) [#/Area] None seen [HPF] 0-4 [facility] Automated leukocytes count i n urine sediment (number/area)Ordered By: Alta Schmid on 07-31-2023 WBC Auto (Urine sed) [#/Area] 0-1 [HPF] 0-4 [facility] Bilirubin Test strip Ql (U)O rdered By: Alta Schmid on 07-31-2023 Bilirubin Ql (U) Negative Negative [facility] Calcium [Mass/volume] in Ser um or PlasmaOrdered By: Alta Schmid on 07-31-2023 Calcium [Mass/Vol] 9.4 mg/dL 8.6-10.3 [facility] Carbon dioxide, total [Moles /volume] in Serum or PlasmaOrdered By: Alta Schmid on 07-31-2023 CO2 [Moles/Vol] 28.1 mmol/L 21.0-31.0 [facility] Chloride [Moles/volume] in S carlos or PlasmaOrdered By: Alta Schmid on 07-31-2023 Chloride [Moles/Vol] 103 mmol/L 98-107 [facility] Color Auto (U)Ordered By: Ab richard Schmid on 07-31-2023 Color (U) Yellow Yellow [facility] Creatinine [Mass/volume] in Serum or PlasmaOrdered By: Alta Schmid on 07-31-2023 Creatinine [Mass/Vol] 1.49 mg/dL 0.60-1.20 [facility] Creatinine [Mass/volume] in UrineOrdered By: Alta Schmid on 07-31-2023 Creatinine (U) [Mass/Vol] 64.0 mg/dL [facility] Comment on above: No reference range e stablished Dipstick and Microscopicon 0 07-31-2023 Appearance (U) Clear Normal Clear [facility] Comment on above: Order Comment: Reaso n for Exam Chronic kidney disease, stage III (moderate);Diabetes mellit Performed By: #### P ROCRERAT #### [facility] [address] [place] [address] [place] Bacteria,Urine None Seen Normal None Seen [facility] Comment on above: Order Comment: Reaso n for Exam Chronic kidney disease, stage III (moderate);Diabetes mellit Performed By: #### P ROCRERAT #### [facility] [address] [place] [id number] [place] Bilirubin,Urine Negative Normal Negative [facility] Comment on above: Order Comment: Reaso n for Exam Chronic kidney disease, stage III (moderate);Diabetes mellit Performed By: #### P ROCRERAT #### [facility] [address] [place] [id number] [place] Color (U) Yellow Normal Yellow [facility] Comment on above: Order Comment: Reaso n for Exam Chronic kidney disease, stage III (moderate);Diabetes mellit Performed By: #### P ROCRERAT #### [facility] [address] [place] [id number] [place] Glucose Ql (U) Normal Normal Normal [facility] Comment on above: Order Comment: Reaso n for Exam Chronic kidney disease, stage III (moderate);Diabetes mellit Performed By: #### P ROCRERAT #### [facility] [address] [place] [address] Hyaline Casts,Urine 0-8 Normal 0-8 [facility] Comment on above: Order Comment: Reaso n for Exam Chronic kidney disease, stage III (moderate);Diabetes mellit Result Comment: PERF ORMED BY: [place] [address] PATHOLOGIST ENT SURGEON SHANTE LOMBARDI M.D. Performed By: #### P ROCRERAT #### [facility] [address] [place] [address] Ketones Ql (U) Negative Normal Negative [facility] Comment on above: Order Comment: Reaso n for Exam Chronic kidney disease, stage III (moderate);Diabetes mellit Performed By: #### P ROCRERAT #### [facility] [address] [place] [address] Leukocyte esterase Test strip Ql (U) Negative Normal Negative [facility] Comment on above: Order Comment: Reaso n for Exam Chronic kidney disease, stage III (moderate);Diabetes mellit Performed By: #### P ROCRERAT #### [facility] [address] [place] [address] Nitrite,Urine Negative Normal Negative [facility] Comment on above: Order Comment: Reaso n for Exam Chronic kidney disease, stage III (moderate);Diabetes mellit Performed By: #### P ROCRERAT #### [facility] [address] [place] [address] [place] Occult Blood,Urine Negative Normal Negative [facility] Comment on above: Order Comment: Reaso n for Exam Chronic kidney disease, stage III (moderate);Diabetes mellit Performed By: #### P ROCRERAT #### [facility] [address] [place] [address] pH (U) 6.0 [pH] Normal 5.0-9.0 [facility] Comment on above: Order Comment: Reaso n for Exam Chronic kidney disease, stage III (moderate);Diabetes mellit Performed By: #### P ROCRERAT #### [facility] [address] [place] [address] Protein,Urine Negative Normal Negative [facility] Comment on above: Order Comment: Reaso n for Exam Chronic kidney disease, stage III (moderate);Diabetes mellit Performed By: #### P ROCRERAT #### [facility] [address] [place] [address] RBC,Urine None Seen Normal 0-4 [facility] Comment on above: Order Comment: Reaso n for Exam Chronic kidney disease, stage III (moderate);Diabetes mellit Performed By: #### P ROCRERAT #### [address] Specificy [place],Urine 1.012 Normal 1.001-1.030 [facility] Comment on above: Order Comment: Reaso n for Exam Chronic kidney disease, stage III (moderate);Diabetes mellit Performed By: #### P ROCRERAT #### [facility] [address] [place] [address] Squamous Epithelial Cell,Urine 0-1 Normal 0-2 [facility] Comment on above: Order Comment: Reaso n for Exam Chronic kidney disease, stage III (moderate);Diabetes mellit Performed By: #### P ROCRERAT #### [facility] [address] [place] [address] Urobilinogen,Urine Normal Normal Normal [facility] Comment on above: Order Comment: Reaso n for Exam Chronic kidney disease, stage III (moderate);Diabetes mellit Performed By: #### P ROCRERAT #### [facility] [address] [place] [address] [place] WBC LM.HPF (Urine sed) [#/Area] 0 /[HPF] Normal 0-4 [facility] Comment on above: Order Comment: Reaso n for Exam Chronic kidney disease, stage III (moderate);Diabetes mellit Performed By: #### P ROCRERAT #### [facility] [address] [place] [address] Erythrocyte distribution wid th Auto (RBC) [Ratio]Ordered By: Alta Schmid on 07-31-2023 Erythrocyte distribution width (RBC) [Ratio] 15.4 % 11.9-15.3 [facility] Glucose [Mass/volume] in Ser um or PlasmaOrdered By: Alta Schmid on 07-31-2023 Glucose [Mass/Vol] 235 mg/dL 70-100 [facility] Comment on above: ADA recommended refe rence rangeRandom Glucose Reference Range is dependent on time and content of last meal. Glucose of more than 200 mg/dL in a nonstressed, ambulatory subject supports the diagnosis of Diabetes Mellitus. Hematocrit Auto (Bld) [Volum e fraction]Ordered By: Alta Schmid on 07-31-2023 Hematocrit (Bld) [Volume fraction] 42.7 % 34.0-46.4 [facility] Hemoglobin [Mass/volume] in BloodOrdered By: Alta Schmid on 07-31-2023 Hemoglobin (Bld) [Mass/Vol] 14.4 g/dL 11.8-15.4 [facility] Hemogram CBC Without Diffon 07-31-2023 Erythrocyte distribution width (RBC) [Ratio] 15.4 % High 11.9-15.3 [facility] Comment on above: Order Comment: Reaso n for Exam Chronic kidney disease, stage III (moderate);Diabetes mellit Performed By: #### C BCNO #### [facility] [address] Hematocrit (Bld) [Volume fraction] 42.7 % Normal 34.0-46.4 [facility] Comment on above: Order Comment: Reaso n for Exam Chronic kidney disease, stage III (moderate);Diabetes mellit Performed By: #### C BCNO #### [facility] [address] Hemoglobin (Bld) [Mass/Vol] 14.4 g/dL Normal 11.8-15.4 [facility] Comment on above: Order Comment: Reaso n for Exam Chronic kidney disease, stage III (moderate);Diabetes mellit Performed By: #### C BCNO #### [facility] [address] MCH (RBC) [Entitic mass] 29.9 pg Normal 24.7-34.3 [facility] Comment on above: Order Comment: Reaso n for Exam Chronic kidney disease, stage III (moderate);Diabetes mellit Performed By: #### C BCNO #### [facility] [address] MCV (RBC) [Entitic vol] 89.0 fL Normal 80-100 [facility] Comment on above: Order Comment: Reaso n for Exam Chronic kidney disease, stage III (moderate);Diabetes mellit Performed By: #### C BCNO #### [facility] [address] [place] [address] Mean Corpuscular HGB Conc 33.6 g/dL Normal 32.0-35.0 [facility] Comment on above: Order Comment: Reaso n for Exam Chronic kidney disease, stage III (moderate);Diabetes mellit Performed By: #### C BCNO #### [address] Platelet mean volume (Bld) [Entitic vol] 8.3 fL Normal 6.3-10.7 [facility] Comment on above: Order Comment: Reaso n for Exam Chronic kidney disease, stage III (moderate);Diabetes mellit Result Comment: PERF ORMED BY: [place] [address] PATHOLOGIST ENT SURGEON SHANTE LOMBARDI M.D. Performed By: #### C BCNO #### [place] [address] [place] Platelets (Bld) [#/Vol] 270 10*3/uL Normal 150-450 [facility] Comment on above: Order Comment: Reaso n for Exam Chronic kidney disease, stage III (moderate);Diabetes mellit Performed By: #### C BCNO #### [place] [id number] [facility] RBC (Bld) [#/Vol] 4.80 10*6/uL Normal 3.60-5.00 [facility] Comment on above: Order Comment: Reaso n for Exam Chronic kidney disease, stage III (moderate);Diabetes mellit Performed By: #### C BCNO #### [facility] [address] WBC (Bld) [#/Vol] 12.8 10*3/uL High 3.8-11.6 [facility] Comment on above: Order Comment: Reaso n for Exam Chronic kidney disease, stage III (moderate);Diabetes mellit Performed By: #### C BCNO #### [facility] [address] [place] [id number] [facility] Ketones Auto test strip (U) [Mass/Vol]Ordered By: Alta Schmid on 07-31-2023 Ketones (U) [Mass/Vol] Negative Negative [facility] - UrinalysisOrder ed By: Alta Schmid on 07-31-2023 Hyaline casts LM Ql (Urine sed) 0-8 [LPF] 0-8 [facility] Leukocytes [#/volume] correc janet for nucleated erythrocytes in Blood by Automated counOrdered By: Alta Schmid on 07-31-2023 WBC corrected for nucl RBC Auto (Bld) [#/Vol] 12.8 10*3/uL 3.8-11.6 [facility] MCH Auto (RBC) [Entitic mass ]Ordered By: Alta Schmid on 07-31-2023 MCH (RBC) [Entitic mass] 29.9 pg 24.7-34.3 [facility] MCHC Auto (RBC) [Mass/Vol]Or dered By: Alta Schmid on 07-31-2023 MCHC (RBC) [Mass/Vol] 33.6 g/dL 32.0-35.0 [facility] MCV Auto (RBC) [Entitic vol] Ordered By: Alta Schmid on 07-31-2023 MCV (RBC) [Entitic vol] 89.0 fL 80-100 [facility] Magnesiumon 07-31-2023 Magnesium [Mass/Vol] 1.3 mg/dL Low 1.9-2.7 [facility] Comment on above: Order Comment: Reaso n for Exam Chronic kidney disease, stage III (moderate);Diabetes mellit Performed By: #### P ROCRERAT #### [facility] [address] [place] [id number] [place] Magnesium [Mass/volume] in S carlos or PlasmaOrdered By: Alta Schmid on 07-31-2023 Magnesium [Mass/Vol] 1.3 mg/dL 1.9-2.7 [facility] Nitrite Test strip Ql (U)Ord ered By: Alta Schmid on 07-31-2023 Nitrite Ql (U) Negative Negative [facility] No Panel InformationOrdered By: Alta Schmid on 07-31-2023 Estimated GFR (CKD-EPI) 38.264 mL/Min [facility] Creatinine Clearance (Chem 38.44 [facility] Parathyrin.intact [Mass/volu me] in Serum or PlasmaOrdered By: Alta Schmid on 07-31-2023 Parathyrin.intact [Mass/Vol] 47.7 pg/mL [facility] Parathyroid Hormone Intacton 07-31-2023 Parathyroid Hormone Intact 47.7 pg/mL Normal [facility] Comment on above: Order Comment: Reaso n for Exam Chronic kidney disease, stage III (moderate);Diabetes mellit Result Comment: PERF ORMED BY: [place] [address] PATHOLOGIST ENT SURGEON SHANTE LOMBARDI M.D. Performed By: #### P TH #### [facility] [address] [place], [place] [id number] [facility] Phosphate [Mass/volume] in S carlos or PlasmaOrdered By: Alta Sharmaine on 07-31-2023 Phosphate [Mass/Vol] 3.6 mg/dL 2.5-4.5 [facility] Platelet mean volume Auto (B ld) [Entitic vol]Ordered By: Alta Sharmaine on 07-31-2023 Platelet mean volume (Bld) [Entitic vol] 8.3 fL 6.3-10.7 [facility] Platelets Auto (Bld) [#/Vol] Ordered By: Alta Schmid on 07-31-2023 Platelets (Bld) [#/Vol] 270 10*3/uL 150-450 [facility] Potassium [Moles/volume] in Serum or PlasmaOrdered By: Alta Schmid on 07-31-2023 Potassium [Moles/Vol] 4.7 mmol/L 3.5-5.1 [facility] Protein Auto test strip (U) [Mass/Vol]Ordered By: Alta Schmid on 07-31-2023 Protein (U) [Mass/Vol] Negative Negative [facility] Protein Creat Ratio Ur Rando mon 07-31-2023 Creatinine, Urine (Random) 64.0 mg/dL Normal [facility] Comment on above: Order Comment: Reaso n for Exam Chronic kidney disease, stage III (moderate);Diabetes mellit Result Comment: No r eference range established Performed By: #### P ROCRERAT #### [facility] [address] [place] [address] [place] Protein (U) [Mass/Vol] 16 mg/dL High 0-9 [facility] Comment on above: Order Comment: Reaso n for Exam Chronic kidney disease, stage III (moderate);Diabetes mellit Performed By: #### P ROCRERAT #### [facility] [address] [place] [address] Urine Protein/Creatinine Ratio 250 mg/g{Cre} High 0-200 [facility] Comment on above: Order Comment: Reaso n for Exam Chronic kidney disease, stage III (moderate);Diabetes mellit Result Comment: PERF ORMED BY: [place] [address] PATHOLOGIST ENT SURGEON SHANTE LOMBARDI M.D. Performed By: #### P ROCRERAT #### [facility] [address] [place] [address] [place] Protein [Mass/volume] in Uri neOrdered By: Alta Schmid on 07-31-2023 Protein (U) [Mass/Vol] 16 mg/dL 0-9 [facility] RBC Auto (Bld) [#/Vol]Ordere d By: Alta Schmid on 07-31-2023 RBC (Bld) [#/Vol] 4.80 10*6/uL 3.60-5.00 [facility] Renal Function Panelon 07-30 Albumin [Mass/Vol] 4.0 g/dL Normal 3.5-5.7 [facility] Comment on above: Order Comment: Reaso n for Exam Chronic kidney disease, stage III (moderate);Diabetes mellit Performed By: #### P ROCRERAT #### [facility] [address] Anion gap [Moles/Vol] 12.6 mmol/L Normal 6.0-15.0 [facility] Comment on above: Order Comment: Reaso n for Exam Chronic kidney disease, stage III (moderate);Diabetes mellit Performed By: #### P ROCRERAT #### [facility] [address] [place] [address] [place] Calcium [Mass/Vol] 9.4 mg/dL Normal 8.6-10.3 [facility] Comment on above: Order Comment: Reaso n for Exam Chronic kidney disease, stage III (moderate);Diabetes mellit Performed By: #### P ROCRERAT #### [facility] [address] [place] [address] [place] Chloride [Moles/Vol] 103 mmol/L Normal 98-107 [facility] Comment on above: Order Comment: Reaso n for Exam Chronic kidney disease, stage III (moderate);Diabetes mellit Performed By: #### P ROCRERAT #### [facility] [address] [place] [address] [place] CO2 [Moles/Vol] 28.1 mmol/L Normal 21.0-31.0 [facility] Comment on above: Order Comment: Reaso n for Exam Chronic kidney disease, stage III (moderate);Diabetes mellit Performed By: #### P ROCRERAT #### [facility] [address] [place] [address] [place] Creatinine [Mass/Vol] 1.49 mg/dL High 0.60-1.20 [facility] Comment on above: Order Comment: Reaso n for Exam Chronic kidney disease, stage III (moderate);Diabetes mellit Performed By: #### P ROCRERAT #### [facility] [address] [place] [address] [place] Creatinine Clr Calc Pharmacy 38.44 [facility] Comment on above: Order Comment: Reaso n for Exam Chronic kidney disease, stage III (moderate);Diabetes mellit Performed By: #### P ROCRERAT #### [place] [address] [place] GFR/1.73 sq M.predicted MDRD (S/P/Bld) [Vol rate/Area] 38.264 mL/min/{1.73_m2} [facility] Comment on above: Order Comment: Reaso n for Exam Chronic kidney disease, stage III (moderate);Diabetes mellit Performed By: #### P ROCRERAT #### [address] Glucose [Mass/Vol] 235 mg/dL High 70-100 [facility] Comment on above: Order Comment: Reaso n for Exam Chronic kidney disease, stage III (moderate);Diabetes mellit Result Comment: [facility] Glucose Reference Range is dependent on time and content of last meal. Glucose of more than 200 mg/dL in a nonstressed, ambulatory subject supports the diagnosis of Diabetes Mellitus. ADA recommended reference range Performed By: #### P ROCRERAT #### [facility] [address] [place] [address] [place] Phosphate [Mass/Vol] 3.6 mg/dL Normal 2.5-4.5 [facility] Comment on above: Order Comment: Reaso n for Exam Chronic kidney disease, stage III (moderate);Diabetes mellit Performed By: #### P ROCRERAT #### [facility] [address] [place] [address] [place] Potassium [Moles/Vol] 4.7 mmol/L Normal 3.5-5.1 [facility] Comment on above: Order Comment: Reaso n for Exam Chronic kidney disease, stage III (moderate);Diabetes mellit Performed By: #### P ROCRERAT #### [facility] [address] Sodium [Moles/Vol] 139 mmol/L Normal 136-145 [facility] Comment on above: Order Comment: Reaso n for Exam Chronic kidney disease, stage III (moderate);Diabetes mellit Performed By: #### P ROCRERAT #### [facility] [address] Urea nitrogen [Mass/Vol] 29 mg/dL High 11-25 [facility] Comment on above: Order Comment: Reaso n for Exam Chronic kidney disease, stage III (moderate);Diabetes mellit Performed By: #### P ROCRERAT #### [facility] [address] Serum or plasma anion gap de terminationOrdered By: Alta Sharmaine on 07-31-2023 Anion gap [Moles/Vol] 12.6 mmol/L 6.0-15.0 [facility] Sodium [Moles/volume] in Ser um or PlasmaOrdered By: Alta Sharmaine on 07-31-2023 Sodium [Moles/Vol] 139 mmol/L 136-145 [facility] Specific gravity Auto test s trip (U) [Rel density]Ordered By: Alta Sharmaine on 07-31-2023 Specific gravity (U) [Rel density] 1.012 1.001-1.030 [facility] Squamous epithelial cells de tection in urine sediment by light microscopyOrdered By: Alta Sharmaine on 07-31-2023 Epithelial cells.squamous LM Ql (Urine sed) 0-1 [HPF] 0-2 [facility] Urate [Mass/volume] in Serum or PlasmaOrdered By: Alta Sharmaine on 07-31-2023 Urate [Mass/Vol] 9.9 mg/dL 2.3-6.6 [facility] Urea nitrogen [Mass/volume] in Serum or PlasmaOrdered By: Alta Sharmaine on 07-31-2023 Urea nitrogen [Mass/Vol] 29 mg/dL 11-25 [facility] Uric Acidon 07-31-2023 Urate [Mass/Vol] 9.9 mg/dL High 2.3-6.6 [facility] Comment on above: Order Comment: Reaso n for Exam Chronic kidney disease, stage III (moderate);Diabetes mellit Performed By: #### P MEGHAREKRYSTYNA #### [facility] [address] Urine bacteria detection by automated methodOrdered By: Alta Schmid on 07-31-2023 Bacteria Auto Ql (U) None seen None Seen [facility] Urine clarity by refractomet ry automatedOrdered By: Alta Schmid on 07-31-2023 Clarity Refractometry automated (U) Clear Clear [facility] Urine glucose measurement by automated test strip (mass/volume)Ordered By: Alta Schmid on 07-31-2023 Glucose Auto test strip (U) [Mass/Vol] Normal mg/dL Normal [facility] Urine hemoglobin detection b y automated test stripOrdered By: Alta Schmid on 07-31-2023 Hemoglobin Auto test strip Ql (U) Negative Negative [facility] Urine leukocyte esterase det ection by automated test stripOrdered By: Alta Schmid on 07-31-2023 Leukocyte esterase Auto test strip Ql (U) Negative Negative [facility] Urine protein/creatinine rat ioOrdered By: Alta Schmid on 07-31-2023 Protein/Creatinine (U) [Ratio] 250 mg/g{Cre} 0-200 [facility] Urobilinogen Auto test strip (U) [Mass/Vol]Ordered By: Alta Schmid on 07-31-2023 Urobilinogen (U) [Mass/Vol] Normal mg/dL Normal [facility] Vitamin D 25 Hydroxy Totalon 07-31-2023 Vitamin D 25 Hydroxy Total 41.8 ng/mL Normal 30-100 [facility] Comment on above: Order Comment: Reaso n for Exam Chronic kidney disease, stage III (moderate);Diabetes mellit Result Comment: DEBORAH MIN D STATUS 25(OH)VITAMIN D RANGE (ng/mL) Deficient <20 Insufficient 20 to <30 Sufficient 30 to 100 Reference: Raven MF,Isai NC, Randa WALSH, et al. Evaluation,treatment, and prevention of vitamin D deficiency; an Endocrine Society clinical practice guideline. JCEM. 2010; 96(7):191-. PERFORMED BY: [place] [address] PATHOLOGIST ENT SURGEON SHANTE LOMBARDI M.D. Performed By: #### P SEGUNDO #### [address] Vitamin D+Metabolites [Mass/ volume] in Serum or PlasmaOrdered By: Alta Schmid on 07-31-2023 Vitamin D+Metabolites [Mass/Vol] 41.8 ng/mL 30-100 [facility] Comment on above: VITAMIN D STATUS 25( OH)VITAMIN D RANGE (ng/mL) Deficient <20 Insufficient 20 to <30Sufficient 30 to 100Reference: Raven MF,Isai CLARK, Randa WALSH, et al. Evaluation,treatment, and prevention of vitamin D deficiency; an Endocrine Society clinical practice guideline. JCEM. 2010; 96(7):1911-30. pH Auto test strip (U)Ordere d By: Alta Schmdi on 07-31-2023 pH (U) 6.0 [pH] 5.0-9.0 [facility] MM screening mammo BI w/CADo n 07-03-2023 MM screening mammo BI w/CAD [facility] [place] [address] [place] [address] Mammography Report Signed Patient: Vidhya Ibarra MR#: [id number] : 1955 Acct:[id number] Age/Sex: 67 / F ADM Date: 07/03/23 Loc: Room: Type: [facility] Attending Dr: Yakelin Staley [employer] SALESPERSON Copies to: MD Yakelin Kahn APRN Mhd [...] mammogram. Impression dictated by: Stevan Daniels Jr., D.OLois07/03/2023 3:30 PM Dictation Location: [facility] Transcribed By: ABBIE 07/03/23 1530 Dictated By: Stevan Daniels Jr, DO 07/03/23 1529 Signed By: 07/03/23 1530 Normal [facility] Basophils Auto (Bld) [#/Vol] Ordered By: Yakelin Staley on 06-22-2023 Basophils (Bld) [#/Vol] 0.1 10*3/uL 0.0-0.2 [facility] Basophils/100 WBC Auto (Bld) Ordered By: Yakelin Staley on 06-22-2023 Basophils/100 WBC (Bld) 0.8 % . [facility] Complete Blood Count Auto Di ffon 06-22-2023 Basophils (Bld) [#/Vol] 0.1 10*3/uL Normal 0.0-0.2 [facility] Comment on above: Result Comment: PERF ORMED BY: [place] [address] PATHOLOGIST ENT SURGEON SHANTE LOMBARDI M.D. Performed By: #### P ROCRERAT #### [address] Basophils/100 WBC (Bld) 0.8 % Normal . [facility] Comment on above: Performed By: #### P ROCRERAT #### [address] Eosinophils (Bld) [#/Vol] 0.2 10*3/uL Normal 0.0-0.45 [facility] Comment on above: Performed By: #### P ROCRERAT #### [address] Eosinophils/100 WBC (Bld) 1.7 % Normal . [facility] Comment on above: Performed By: #### P ROCRERAT #### [address] Erythrocyte distribution width (RBC) [Ratio] 15.0 % Normal 11.9-15.3 [facility] Comment on above: Performed By: #### P ROCRERAT #### [address] Hematocrit (Bld) [Volume fraction] 42.7 % Normal 34.0-46.4 [facility] Comment on above: Performed By: #### P ROCRERAT #### [address] Hemoglobin (Bld) [Mass/Vol] 14.5 g/dL Normal 11.8-15.4 [facility] Comment on above: Performed By: #### P ROCRERAT #### [address] Lymphocytes (Bld) [#/Vol] 2.6 10*3/uL Normal 1.00-4.8 [facility] Comment on above: Performed By: #### P ROCRERAT #### [address] Lymphocytes/100 WBC (Bld) 18.0 % Normal . [facility] Comment on above: Performed By: #### P ROCRERAT #### [address] MCH (RBC) [Entitic mass] 30.3 pg Normal 24.7-34.3 [facility] Comment on above: Performed By: #### P ROCRERAT #### [address] MCV (RBC) [Entitic vol] 89.4 fL Normal 80-100 [facility] Comment on above: Performed By: #### P ROCRERAT #### [address] Mean Corpuscular HGB Conc 33.9 g/dL Normal 32.0-35.0 [facility] Comment on above: Performed By: #### P ROCRERAT #### [address] Monocytes (Bld) [#/Vol] 0.7 10*3/uL Normal 0.0-0.8 [facility] Comment on above: Performed By: #### P ROCRERAT #### [address] Monocytes/100 WBC (Bld) 5.2 % Normal . [facility] Comment on above: Performed By: #### P ROCRERAT #### [address] Neutrophils (Bld) [#/Vol] 10.6 10*3/uL High 1.8-7.7 [facility] Comment on above: Performed By: #### P ROCRERAT #### [address] Neutrophils/100 WBC (Bld) 74.3 % Normal . [facility] Comment on above: Performed By: #### P ROCRERAT #### [address] NRBC% 0.1 /100{WBC} Normal 0-0.5 [facility] Comment on above: Performed By: #### P ROCRERAT #### [address] Platelet mean volume (Bld) [Entitic vol] 8.3 fL Normal 6.3-10.7 [facility] Comment on above: Performed By: #### P ROCRERAT #### [facility] [address] Platelets (Bld) [#/Vol] 262 10*3/uL Normal 150-450 [facility] Comment on above: Performed By: #### P ROCRERAT #### [facility] [address] [place] [address] RBC (Bld) [#/Vol] 4.77 10*6/uL Normal 3.60-5.00 [facility] Comment on above: Performed By: #### P ROCRERAT #### [facility] [address] [place] [address] WBC (Bld) [#/Vol] 14.3 10*3/uL High 3.8-11.6 [facility] Comment on above: Performed By: #### P ROCRERAT #### [facility] [address] [place] [address] Eosinophils Auto (Bld) [#/Vo l]Ordered By: Yakelin Staley on 06-22-2023 Eosinophils (Bld) [#/Vol] 0.2 10*3/uL 0.0-0.45 [facility] Eosinophils/100 WBC Auto (Bl d)Ordered By: Yakelin Staley on 06-22-2023 Eosinophils/100 WBC (Bld) 1.7 % . [facility] Erythrocyte distribution wid th Auto (RBC) [Ratio]Ordered By: Yakelin Staley on 06-22-2023 Erythrocyte distribution width (RBC) [Ratio] 15.0 % 11.9-15.3 [facility] Hematocrit Auto (Bld) [Volum e fraction]Ordered By: Yakelin Staley on 06-22-2023 Hematocrit (Bld) [Volume fraction] 42.7 % 34.0-46.4 [facility] Hemoglobin [Mass/volume] in BloodOrdered By: Yakelin Staley on 06-22-2023 Hemoglobin (Bld) [Mass/Vol] 14.5 g/dL 11.8-15.4 [facility] Leukocytes [#/volume] correc janet for nucleated erythrocytes in Blood by Automated counOrdered By: Yakelin Staley on 06-22-2023 WBC corrected for nucl RBC Auto (Bld) [#/Vol] 14.3 10*3/uL 3.8-11.6 [facility] Lymphocytes Auto (Bld) [#/Vo l]Ordered By: Yakelin Staley on 06-22-2023 Lymphocytes (Bld) [#/Vol] 2.6 10*3/uL 1.00-4.8 [facility] Lymphocytes/100 WBC Auto (Bl d)Ordered By: Yakelin Staley on 06-22-2023 Lymphocytes/100 WBC (Bld) 18.0 % . [facility] MCH Auto (RBC) [Entitic mass ]Ordered By: Yakelin Staley on 06-22-2023 MCH (RBC) [Entitic mass] 30.3 pg 24.7-34.3 [facility] MCHC Auto (RBC) [Mass/Vol]Or dered By: Yakelin Staley on 06-22-2023 MCHC (RBC) [Mass/Vol] 33.9 g/dL 32.0-35.0 [facility] MCV Auto (RBC) [Entitic vol] Ordered By: Yakelin Staley on 06-22-2023 MCV (RBC) [Entitic vol] 89.4 fL 80-100 [facility] Monocytes Auto (Bld) [#/Vol] Ordered By: Yakelin Staley on 06-22-2023 Monocytes (Bld) [#/Vol] 0.7 10*3/uL 0.0-0.8 [facility] Monocytes/100 WBC Auto (Bld) Ordered By: Yakelin Staley on 06-22-2023 Monocytes/100 WBC (Bld) 5.2 % . [facility] Neutrophils Auto (Bld) [#/Vo l]Ordered By: Yakelin Staley on 06-22-2023 Neutrophils (Bld) [#/Vol] 10.6 10*3/uL 1.8-7.7 [facility] Neutrophils/100 WBC Auto (Bl d)Ordered By: Yakelin Staley on 06-22-2023 Neutrophils/100 WBC (Bld) 74.3 % . [facility] Nucleated erythrocytes [Pres ence] in Blood by Automated countOrdered By: Yakelin Canalesevan on 06-22-2023 Nucleated RBC Auto Ql (Bld) 0.1 /100{WBC} 0-0.5 [facility] Platelet mean volume Auto (B ld) [Entitic vol]Ordered By: Yakelin Canalesevan on 06-22-2023 Platelet mean volume (Bld) [Entitic vol] 8.3 fL 6.3-10.7 [facility] Platelets Auto (Bld) [#/Vol] Ordered By: Yakelin Rebeka on 06-22-2023 Platelets (Bld) [#/Vol] 262 10*3/uL 150-450 [facility] RBC Auto (Bld) [#/Vol]Ordere d By: Yakelin Rebeka on 06-22-2023 RBC (Bld) [#/Vol] 4.77 10*6/uL 3.60-5.00 [facility] WBC Auto (Bld) [#/Vol]Ordere d By: Yakelin Canalesevan on 06-22-2023 WBC (Bld) [#/Vol] 14.3 10*3/uL 3.8-11.6 [facility] Complete Blood Count Auto Di ffon 03-24-2023 Basophils (Bld) [#/Vol] 0.1 10*3/uL Normal 0.0-0.2 [facility] Comment on above: Result Comment: PERF ORMED BY: [facility] [address] [place] [address] PATHOLOGIST ENT SURGEON SHANTE LOMBARDI M.D. Performed By: #### C BC #### [facility] [address] [place] [address] [place] Basophils/100 WBC (Bld) 0.7 % Normal . [facility] Comment on above: Performed By: #### C BC #### [facility] [address] [place] [address] [place] Eosinophils (Bld) [#/Vol] 0.4 10*3/uL Normal 0.0-0.45 [facility] Comment on above: Performed By: #### C BC #### [address] Eosinophils/100 WBC (Bld) 2.2 % Normal . [facility] Comment on above: Performed By: #### C BC #### [address] Erythrocyte distribution width (RBC) [Ratio] 14.4 % Normal 11.9-15.3 [facility] Comment on above: Performed By: #### C BC #### [address] Hematocrit (Bld) [Volume fraction] 42.6 % Normal 34.0-46.4 [facility] Comment on above: Performed By: #### C BC #### [address] Hemoglobin (Bld) [Mass/Vol] 14.2 g/dL Normal 11.8-15.4 [facility] Comment on above: Performed By: #### C BC #### [address] Lymphocytes (Bld) [#/Vol] 2.9 10*3/uL Normal 1.00-4.8 [facility] Comment on above: Performed By: #### C BC #### [address] Lymphocytes/100 WBC (Bld) 17.3 % Normal . [facility] Comment on above: Performed By: #### C BC #### [address] MCH (RBC) [Entitic mass] 30.2 pg Normal 24.7-34.3 [facility] Comment on above: Performed By: #### C BC #### [address] MCV (RBC) [Entitic vol] 90.7 fL Normal 80-100 [facility] Comment on above: Performed By: #### C BC #### [place] [address] [place] Mean Corpuscular HGB Conc 33.3 g/dL Normal 32.0-35.0 [facility] Comment on above: Performed By: #### C BC #### [address] Monocytes (Bld) [#/Vol] 1.1 10*3/uL High 0.0-0.8 [facility] Comment on above: Performed By: #### C BC #### [address] Monocytes/100 WBC (Bld) 6.4 % Normal . [facility] Comment on above: Performed By: #### C BC #### [address] Neutrophils (Bld) [#/Vol] 12.2 10*3/uL High 1.8-7.7 [facility] Comment on above: Performed By: #### C BC #### [address] Neutrophils/100 WBC (Bld) 73.4 % Normal . [facility] Comment on above: Performed By: #### C BC #### [address] NRBC% 0.1 /100{WBC} Normal 0-0.5 [facility] Comment on above: Performed By: #### C BC #### [address] Platelet mean volume (Bld) [Entitic vol] 8.5 fL Normal 6.3-10.7 [facility] Comment on above: Performed By: #### C BC #### [place] [address] [place] Platelets (Bld) [#/Vol] 302 10*3/uL Normal 150-450 [facility] Comment on above: Performed By: #### C BC #### [address] RBC (Bld) [#/Vol] 4.70 10*6/uL Normal 3.60-5.00 [facility] Comment on above: Performed By: #### C BC #### [facility] [address] WBC (Bld) [#/Vol] 16.7 10*3/uL High 3.8-11.6 [facility] Comment on above: Performed By: #### C BC #### [facility] [address] Albumin [Mass/volume] in Ser um or Plasma by Bromocresol green (BCG) dye binding methoOrdered By: Alta Schmid on 03-04-2023 Albumin BCG dye [Mass/Vol] 4.1 g/dL 3.5-5.7 [facility] Automated erythrocytes count in urine sediment (number/area)Ordered By: Alta Schmid on 03-04-2023 RBC Auto (Urine sed) [#/Area] 0-1 [HPF] 0-4 [facility] Automated leukocytes count i n urine sediment (number/area)Ordered By: Alta Schmid on 03-04-2023 WBC Auto (Urine sed) [#/Area] 5-9 [HPF] 0-4 [facility] Bilirubin Test strip Ql (U)O rdered By: Alta Schmid on 03-04-2023 Bilirubin Ql (U) Negative Negative [facility] Calcium [Mass/volume] in Ser um or PlasmaOrdered By: Alta Schmid on 03-04-2023 Calcium [Mass/Vol] 9.2 mg/dL 8.6-10.3 [facility] Carbon dioxide, total [Moles /volume] in Serum or PlasmaOrdered By: Alta Schmid on 03-04-2023 CO2 [Moles/Vol] 25.4 mmol/L 21.0-31.0 [facility] Chloride [Moles/volume] in S carlos or PlasmaOrdered By: Alta Schmid on 03-04-2023 Chloride [Moles/Vol] 104 mmol/L 98-107 [facility] Color Auto (U)Ordered By: Ab richard Schmid on 03-04-2023 Color (U) Yellow Yellow [facility] Creatinine [Mass/volume] in Serum or PlasmaOrdered By: Alta Schmid on 03-04-2023 Creatinine [Mass/Vol] 1.59 mg/dL 0.60-1.20 [facility] Creatinine [Mass/volume] in UrineOrdered By: Alta Schmid on 03-04-2023 Creatinine (U) [Mass/Vol] 100.0 mg/dL 11.0-20.0 [facility] Dipstick and Microscopicon 1 05-04-2022 Appearance (U) Clear Normal Clear [facility] Comment on above: Order Comment: Reaso n for Exam Chronic kidney disease, stage III (moderate);Diabetes mellit Name Collection Type:: Clean-Voided Midstream Performed By: #### A DDONUAPLUS, CUU #### [facility] [address] [place] [address] [place] Bacteria,Urine None Seen Normal None Seen [facility] Comment on above: Order Comment: Reaso n for Exam Chronic kidney disease, stage III (moderate);Diabetes mellit Name Collection Type:: Clean-Voided Midstream Performed By: #### A DDONUAPLUS, CUU #### [facility] [address] [place] [address] [place] Bilirubin,Urine Negative Normal Negative [facility] Comment on above: Order Comment: Reaso n for Exam Chronic kidney disease, stage III (moderate);Diabetes mellit Name Collection Type:: Clean-Voided Midstream Performed By: #### A DDONUAPLUS, CUU #### [facility] [address] [place], [place] [id number] [place] Color (U) Yellow Normal Yellow [facility] Comment on above: Order Comment: Reaso n for Exam Chronic kidney disease, stage III (moderate);Diabetes mellit Name Collection Type:: Clean-Voided Midstream Performed By: #### A DDONUAPLUS, CUU #### [facility] [address] [place], [place] [id number] [place] Glucose Ql (U) Normal Normal Normal [facility] Comment on above: Order Comment: Reaso n for Exam Chronic kidney disease, stage III (moderate);Diabetes mellit Name Collection Type:: Clean-Voided Midstream Performed By: #### A DDONUAPLUS, CUU #### [address] Hyaline Casts,Urine 0-8 Normal 0-8 [facility] Comment on above: Order Comment: Reaso n for Exam Chronic kidney disease, stage III (moderate);Diabetes mellit Name Collection Type:: Clean-Voided Midstream Result Comment: PERF ORMED BY: [place] [address] PATHOLOGIST ENT SURGEON SHANTE LOMBARDI M.D. Performed By: #### A DDONUAPLUS, CUU #### [address] Ketones Ql (U) Negative Normal Negative [facility] Comment on above: Order Comment: Reaso n for Exam Chronic kidney disease, stage III (moderate);Diabetes mellit Name Collection Type:: Clean-Voided Midstream Performed By: #### A DDONUAPLUS, CUU #### [address] Leukocyte esterase Test strip Ql (U) 1+ High Negative [facility] Comment on above: Order Comment: Reaso n for Exam Chronic kidney disease, stage III (moderate);Diabetes mellit Name Collection Type:: Clean-Voided Midstream Performed By: #### A DDONUAPLUS, CUU #### [place] [address] [place] Nitrite,Urine Negative Normal Negative [facility] Comment on above: Order Comment: Reaso n for Exam Chronic kidney disease, stage III (moderate);Diabetes mellit Name Collection Type:: Clean-Voided Midstream Performed By: #### A DDONUAPLUS, CUU #### [place] [address] [place] Occult Blood,Urine Negative Normal Negative [facility] Comment on above: Order Comment: Reaso n for Exam Chronic kidney disease, stage III (moderate);Diabetes mellit Name Collection Type:: Clean-Voided Midstream Performed By: #### A DDONUAPLUS, CUU #### [address] pH (U) 5.5 [pH] Normal 5.0-9.0 [facility] Comment on above: Order Comment: Reaso n for Exam Chronic kidney disease, stage III (moderate);Diabetes mellit Name Collection Type:: Clean-Voided Midstream Performed By: #### A DDONUAPLUS, CUU #### [address] Protein,Urine Negative Normal Negative [facility] Comment on above: Order Comment: Reaso n for Exam Chronic kidney disease, stage III (moderate);Diabetes mellit Name Collection Type:: Clean-Voided Midstream Performed By: #### A DDONUAPLUS, CUU #### [address] RBC LM.HPF (Urine sed) [#/Area] 0 /[HPF] Normal 0-4 [facility] Comment on above: Order Comment: Reaso n for Exam Chronic kidney disease, stage III (moderate);Diabetes mellit Name Collection Type:: Clean-Voided Midstream Performed By: #### A DDONUAPLUS, CUU #### [address] Specificy [place],Urine 1.014 Normal 1.001-1.030 [facility] Comment on above: Order Comment: Reaso n for Exam Chronic kidney disease, stage III (moderate);Diabetes mellit Name Collection Type:: Clean-Voided Midstream Performed By: #### A DDONUAPLUS, CUU #### [place] [address] [place] Squamous Epithelial Cell,Urine 5-9 High 0-2 [facility] Comment on above: Order Comment: Reaso n for Exam Chronic kidney disease, stage III (moderate);Diabetes mellit Name Collection Type:: Clean-Voided Midstream Performed By: #### A DDONUAPLUS, CUU #### [address] Urobilinogen,Urine Normal Normal Normal [facility] Comment on above: Order Comment: Reaso n for Exam Chronic kidney disease, stage III (moderate);Diabetes mellit Name Collection Type:: Clean-Voided Midstream Performed By: #### A DDONUAPLUS, CUU #### [facility] [address] WBC,Urine 5-9 High 0-4 [facility] Comment on above: Order Comment: Reaso n for Exam Chronic kidney disease, stage III (moderate);Diabetes mellit Name Collection Type:: Clean-Voided Midstream Performed By: #### A DDONUAPLUS, CUU #### [facility] [address] Erythrocyte distribution wid th Auto (RBC) [Ratio]Ordered By: Alta Schmid on 03-04-2023 Erythrocyte distribution width (RBC) [Ratio] 14.8 % 11.9-15.3 [facility] Glucose [Mass/volume] in Ser um or PlasmaOrdered By: Alta Schmid on 03-04-2023 Glucose [Mass/Vol] 232 mg/dL 70-100 [facility] Comment on above: ADA recommended refe rence rangeRandom Glucose Reference Range is dependent on time and content of last meal. Glucose of more than 200 mg/dL in a nonstressed, ambulatory subject supports the diagnosis of Diabetes Mellitus. Hematocrit Auto (Bld) [Volum e fraction]Ordered By: Alta Schmid on 03-04-2023 Hematocrit (Bld) [Volume fraction] 42.6 % 34.0-46.4 [facility] Hemoglobin [Mass/volume] in BloodOrdered By: Alta Schmid on 03-04-2023 Hemoglobin (Bld) [Mass/Vol] 14.5 g/dL 11.8-15.4 [facility] Hemogram CBC Without Diffon 03-04-2023 Erythrocyte distribution width (RBC) [Ratio] 14.8 % Normal 11.9-15.3 [facility] Comment on above: Order Comment: Reaso n for Exam Chronic kidney disease, stage III (moderate);Diabetes mellit Performed By: #### C BCNO #### [facility] [address] [place] [address] Hematocrit (Bld) [Volume fraction] 42.6 % Normal 34.0-46.4 [facility] Comment on above: Order Comment: Reaso n for Exam Chronic kidney disease, stage III (moderate);Diabetes mellit Performed By: #### C BCNO #### [facility] [address] Hemoglobin (Bld) [Mass/Vol] 14.5 g/dL Normal 11.8-15.4 [facility] Comment on above: Order Comment: Reaso n for Exam Chronic kidney disease, stage III (moderate);Diabetes mellit Performed By: #### C BCNO #### [facility] [address] MCH (RBC) [Entitic mass] 31.1 pg Normal 24.7-34.3 [facility] Comment on above: Order Comment: Reaso n for Exam Chronic kidney disease, stage III (moderate);Diabetes mellit Performed By: #### C BCNO #### [address] MCV (RBC) [Entitic vol] 91.6 fL Normal 80-100 [facility] Comment on above: Order Comment: Reaso n for Exam Chronic kidney disease, stage III (moderate);Diabetes mellit Performed By: #### C BCNO #### [address] Mean Corpuscular HGB Conc 34.0 g/dL Normal 32.0-35.0 [facility] Comment on above: Order Comment: Reaso n for Exam Chronic kidney disease, stage III (moderate);Diabetes mellit Performed By: #### C BCNO #### [address] Platelet mean volume (Bld) [Entitic vol] 8.5 fL Normal 6.3-10.7 [facility] Comment on above: Order Comment: Reaso n for Exam Chronic kidney disease, stage III (moderate);Diabetes mellit Result Comment: PERF ORMED BY: [place] [address] PATHOLOGIST ENT SURGEON SHANTE LOMBARDI M.D. Performed By: #### C BCNO #### [facility] [address] Platelets (Bld) [#/Vol] 327 10*3/uL Normal 150-450 [facility] Comment on above: Order Comment: Reaso n for Exam Chronic kidney disease, stage III (moderate);Diabetes mellit Performed By: #### C BCNO #### [facility] [address] RBC (Bld) [#/Vol] 4.65 10*6/uL Normal 3.60-5.00 [facility] Comment on above: Order Comment: Reaso n for Exam Chronic kidney disease, stage III (moderate);Diabetes mellit Performed By: #### C BCNO #### [address] WBC (Bld) [#/Vol] 16.2 10*3/uL High 3.8-11.6 [facility] Comment on above: Order Comment: Reaso n for Exam Chronic kidney disease, stage III (moderate);Diabetes mellit Performed By: #### C BCNO #### [address] Ketones Auto test strip (U) [Mass/Vol]Ordered By: Alta Schmid on 03-04-2023 Ketones (U) [Mass/Vol] Negative Negative [facility] Laboratory - UrinalysisOrder ed By: Alta Schmid on 03-04-2023 Hyaline casts LM Ql (Urine sed) 0-8 [LPF] 0-8 [facility] Leukocytes [#/volume] correc janet for nucleated erythrocytes in Blood by Automated counOrdered By: Alta Schmid on 03-04-2023 WBC corrected for nucl RBC Auto (Bld) [#/Vol] 16.2 10*3/uL 3.8-11.6 [facility] MCH Auto (RBC) [Entitic mass ]Ordered By: Alta Schmid on 03-04-2023 MCH (RBC) [Entitic mass] 31.1 pg 24.7-34.3 [facility] MCHC Auto (RBC) [Mass/Vol]Or dered By: Alta Schmid on 03-04-2023 MCHC (RBC) [Mass/Vol] 34.0 g/dL 32.0-35.0 [facility] MCV Auto (RBC) [Entitic vol] Ordered By: Alta Schmid on 03-04-2023 MCV (RBC) [Entitic vol] 91.6 fL 80-100 [facility] Magnesiumon 03-04-2023 Magnesium [Mass/Vol] 1.4 mg/dL Low 1.9-2.7 [facility] Comment on above: Order Comment: Reaso n for Exam Chronic kidney disease, stage III (moderate);Diabetes mellit Performed By: #### V [id number], MG, RENAL, URIC #### [address] Magnesium [Mass/volume] in S carlos or PlasmaOrdered By: Alta Schmid on 03-04-2023 Magnesium [Mass/Vol] 1.4 mg/dL 1.9-2.7 [facility] Nitrite Test strip Ql (U)Ord ered By: lAta Schmid on 03-04-2023 Nitrite Ql (U) Negative Negative [facility] No Panel InformationOrdered By: Alta Schmid on 03-04-2023 Estimated GFR (CKD-EPI) 35.395 mL/Min [facility] Creatinine Clearance (Chem N/A [facility] Parathyrin.intact [Mass/volu me] in Serum or PlasmaOrdered By: Alta Schmid on 03-04-2023 Parathyrin.intact [Mass/Vol] 87.0 pg/mL [facility] Parathyroid Hormone Intacton 03-04-2023 Parathyroid Hormone Intact 87.0 pg/mL Normal [facility] Comment on above: Order Comment: Reaso n for Exam Chronic kidney disease, stage III (moderate);Diabetes mellit Result Comment: PERF ORMED BY: [facility] [address] [place] [address] PATHOLOGIST ENT SURGEON SHANTE LOMBARDI M.D. Performed By: #### P TH #### [facility] [address] [place] [address] [place] Phosphate [Mass/volume] in S carlos or PlasmaOrdered By: Alta Schmid on 03-04-2023 Phosphate [Mass/Vol] 4.0 mg/dL 3.7-7.2 [facility] Platelet mean volume Auto (B ld) [Entitic vol]Ordered By: Alta Sharmaine on 03-04-2023 Platelet mean volume (Bld) [Entitic vol] 8.5 fL 6.3-10.7 [facility] Platelets Auto (Bld) [#/Vol] Ordered By: Alta Comerdir on 03-04-2023 Platelets (Bld) [#/Vol] 327 10*3/uL 150-450 [facility] Potassium [Moles/volume] in Serum or PlasmaOrdered By: Alta Schmid on 03-04-2023 Potassium [Moles/Vol] 4.9 mmol/L 3.5-5.1 [facility] Protein Auto test strip (U) [Mass/Vol]Ordered By: Alta Schmid on 03-04-2023 Protein (U) [Mass/Vol] Negative Negative [facility] Protein Creat Ratio Ur Rando mon 03-04-2023 Creatinine, Urine (Random) 100.0 mg/dL High 11.0-20.0 [facility] Comment on above: Order Comment: Reaso n for Exam Chronic kidney disease, stage III (moderate);Diabetes mellit Performed By: #### P ROCRERAT #### [facility] [address] [place] [id number] [place] Protein (U) [Mass/Vol] 14 mg/dL High 0-9 [facility] Comment on above: Order Comment: Reaso n for Exam Chronic kidney disease, stage III (moderate);Diabetes mellit Performed By: #### P ROCRERAT #### [facility] [address] [place] [id number] [facility] Urine Protein/Creatinine Ratio 140 mg/g{Cre} Normal 0-200 [facility] Comment on above: Order Comment: Reaso n for Exam Chronic kidney disease, stage III (moderate);Diabetes mellit Result Comment: PERF ORMED BY: [address] [place] [address] PATHOLOGIST ENT SURGEON SHANTE LOMBARDI M.D. Performed By: #### P ROCREKRYSTYNA #### [facility] [address] Protein [Mass/volume] in Uri neOrdered By: Alta Sharmaine on 03-04-2023 Protein (U) [Mass/Vol] 14 mg/dL 0-9 [facility] RBC Auto (Bld) [#/Vol]Ordere d By: Alta Sharmaine on 03-04-2023 RBC (Bld) [#/Vol] 4.65 10*6/uL 3.60-5.00 [facility] Renal Function Panelon 03-04 Albumin [Mass/Vol] 4.1 g/dL Normal 3.5-5.7 [facility] Comment on above: Order Comment: Reaso n for Exam Chronic kidney disease, stage III (moderate);Diabetes mellit Performed By: #### V [id number], MG, RENAL, URIC #### [facility] [address] [place] [address] [place] Anion gap [Moles/Vol] 13.5 mmol/L Normal 6.0-15.0 [facility] Comment on above: Order Comment: Reaso n for Exam Chronic kidney disease, stage III (moderate);Diabetes mellit Performed By: #### V [id number], MG, RENAL, URIC #### [facility] [address] [place] [id number] [place] Calcium [Mass/Vol] 9.2 mg/dL Normal 8.6-10.3 [facility] Comment on above: Order Comment: Reaso n for Exam Chronic kidney disease, stage III (moderate);Diabetes mellit Performed By: #### V [id number], MG, RENAL, URIC #### [facility] [address] [place] [id number] [place] Chloride [Moles/Vol] 104 mmol/L Normal 98-107 [facility] Comment on above: Order Comment: Reaso n for Exam Chronic kidney disease, stage III (moderate);Diabetes mellit Performed By: #### V [id number], MG, RENAL, URIC #### [facility] [address] CO2 [Moles/Vol] 25.4 mmol/L Normal 21.0-31.0 [facility] Comment on above: Order Comment: Reaso n for Exam Chronic kidney disease, stage III (moderate);Diabetes mellit Performed By: #### V [id number], MG, RENAL, URIC #### [facility] [address] [place] [id number] [facility] Creatinine [Mass/Vol] 1.59 mg/dL High 0.60-1.20 [facility] Comment on above: Order Comment: Reaso n for Exam Chronic kidney disease, stage III (moderate);Diabetes mellit Performed By: #### V [id number], MG, RENAL, URIC #### [facility] [address] [place] [address] [place] GFR/1.73 sq M.predicted MDRD (S/P/Bld) [Vol rate/Area] 35.395 mL/min/{1.73_m2} Normal [facility] Comment on above: Order Comment: Reaso n for Exam Chronic kidney disease, stage III (moderate);Diabetes mellit Performed By: #### V [id number], MG, RENAL, URIC #### [facility] [address] Glucose [Mass/Vol] 232 mg/dL High 70-100 [facility] Comment on above: Order Comment: Reaso n for Exam Chronic kidney disease, stage III (moderate);Diabetes mellit Result Comment: [place] Glucose Reference Range is dependent on time and content of last meal. Glucose of more than 200 mg/dL in a nonstressed, ambulatory subject supports the diagnosis of Diabetes Mellitus. ADA recommended reference range Performed By: #### V [id number], MG, RENAL, URIC #### [facility] [address] [place] [id number] [facility] Phosphate [Mass/Vol] 4.0 mg/dL Normal 3.7-7.2 [facility] Comment on above: Order Comment: Reaso n for Exam Chronic kidney disease, stage III (moderate);Diabetes mellit Performed By: #### V [id number], MG, RENAL, URIC #### [facility] [address] Potassium [Moles/Vol] 4.9 mmol/L Normal 3.5-5.1 [facility] Comment on above: Order Comment: Reaso n for Exam Chronic kidney disease, stage III (moderate);Diabetes mellit Performed By: #### V [id number], MG, RENAL, URIC #### [facility] [address] Sodium [Moles/Vol] 138 mmol/L Normal 136-145 [facility] Comment on above: Order Comment: Reaso n for Exam Chronic kidney disease, stage III (moderate);Diabetes mellit Performed By: #### V [id number], MG, RENAL, URIC #### [facility] [address] Urea nitrogen [Mass/Vol] 42 mg/dL High 7-25 [facility] Comment on above: Order Comment: Reaso n for Exam Chronic kidney disease, stage III (moderate);Diabetes mellit Performed By: #### V [id number], MG, RENAL, URIC #### [facility] [address] Serum or plasma anion gap de terminationOrdered By: Alta Schmid on 03-04-2023 Anion gap [Moles/Vol] 13.5 mmol/L 6.0-15.0 [facility] Sodium [Moles/volume] in Ser um or PlasmaOrdered By: Alta Schmid on 03-04-2023 Sodium [Moles/Vol] 138 mmol/L 136-145 [facility] Specific gravity Auto test s trip (U) [Rel density]Ordered By: Alta Schmid on 03-04-2023 Specific gravity (U) [Rel density] 1.014 1.001-1.030 [facility] Squamous epithelial cells de tection in urine sediment by light microscopyOrdered By: Alta Schmid on 03-04-2023 Epithelial cells.squamous LM Ql (Urine sed) 5-9 [HPF] 0-2 [facility] Urate [Mass/volume] in Serum or PlasmaOrdered By: Alta Schmid on 03-04-2023 Urate [Mass/Vol] 10.7 mg/dL 2.3-6.6 [facility] Urea nitrogen [Mass/volume] in Serum or PlasmaOrdered By: Alta Schmid on 03-04-2023 Urea nitrogen [Mass/Vol] 42 mg/dL 7-25 [facility] Uric Acidon 03-04-2023 Urate [Mass/Vol] 10.7 mg/dL High 2.3-6.6 [facility] Comment on above: Order Comment: Reaso n for Exam Chronic kidney disease, stage III (moderate);Diabetes mellit Performed By: #### P ROCRERAT #### [facility] [address] [place] [address] Urine Cultureon 03-04-2023 Bacteria identified Cx Nom (U) 75,000 colonies/ml mixed bacterial skin contaminants 2 Days PERFORMED BY: [place] [address] PATHOLOGIST ENT SURGEON SHANTE LOMBARDI M.D. [facility] Comment on above: Performed By: #### A DDONUAPLUS, CUU #### [facility] [address] [place] [address] Urine bacteria detection by automated methodOrdered By: Alta Schmid on 03-04-2023 Bacteria Auto Ql (U) None seen None Seen [facility] Urine clarity by refractomet ry automatedOrdered By: Alta Schmid on 03-04-2023 Clarity Refractometry automated (U) Clear Clear [facility] Urine culture routineOrdered By: Alta Schmid on 03-04-2023 Bacteria identified Cx Nom (U) 2 Days [facility] Urine glucose measurement by automated test strip (mass/volume)Ordered By: Alta Schmid on 03-04-2023 Glucose Auto test strip (U) [Mass/Vol] Normal mg/dL Normal [facility] Urine hemoglobin detection b y automated test stripOrdered By: Alta Schmid on 03-04-2023 Hemoglobin Auto test strip Ql (U) Negative Negative [facility] Urine leukocyte esterase det ection by automated test stripOrdered By: Alta Schmid on 03-04-2023 Leukocyte esterase Auto test strip Ql (U) 1+ Negative [facility] Urine protein/creatinine rat ioOrdered By: Alta Schmid on 03-04-2023 Protein/Creatinine (U) [Ratio] 140 mg/g{Cre} 0-200 [facility] Urobilinogen Auto test strip (U) [Mass/Vol]Ordered By: Alta Schmid on 03-04-2023 Urobilinogen (U) [Mass/Vol] Normal mg/dL Normal [facility] Vitamin D 25 Hydroxy Totalon 03-04-2023 Vitamin D 25 Hydroxy Total 41.9 ng/mL Normal 30-100 [facility] Comment on above: Order Comment: Reaso n for Exam Chronic kidney disease, stage III (moderate);Diabetes mellit Result Comment: DEBORAH MIN D STATUS 25(OH)VITAMIN D RANGE (ng/mL) Deficient <20 Insufficient 20 to <30 Sufficient 30 to 100 Reference: Isai Rich, Randa WALSH, et al. Evaluation,treatment, and prevention of vitamin D deficiency; an Endocrine Society clinical practice guideline. JCEM. 2010; 96(7):1911-30. PERFORMED BY: [place] [address] PATHOLOGIST ENT SURGEON SHANTE LOMBARDI M.D. Performed By: #### P SEGUNDO #### [address] Vitamin D+Metabolites [Mass/ volume] in Serum or PlasmaOrdered By: Alta Schmid on 03-04-2023 Vitamin D+Metabolites [Mass/Vol] 41.9 ng/mL 30-100 [facility] Comment on above: VITAMIN D STATUS 25( [place])VITAMIN D RANGE (ng/mL) Deficient <20 Insufficient 20 to <30Sufficient 30 to 100Reference: Isai Rich, Concha-Rick WALSH, et al. Evaluation,treatment, and prevention of vitamin D deficiency; an Endocrine Society clinical practice guideline. JCEM. 2010; 96(7):1911-30. pH Auto test strip (U)Ordere d By: Alta Schmid on 03-04-2023 pH (U) 5.5 [pH] 5.0-9.0 [facility] Office Visit (Cardiology)on 12-08-2022 Follow-up visit Diagnoses/Problems Assessed Hypertension (401.9) (I10) Current smoker (305.1) (F17.200) 1/2 pack daily. Diabetes (250.00) (E11.9) Class 1 obesity with body mass index (BMI) of 32.0 to 32.9 in adult (278.00,V85.32) (E66.9,Z68.32) Orders Class 1 obesity with body mass index (BMI) of 32.0 to 32.9 in adult Healthy Weight Tips; Status:Complete; Done: [id number] Some eating tips that can help you lose weight.; Status:Complete; Done: [id number] SocHx: Current smoker Tobacco Use Screening; Status:Complete; Done: [id number] You need to stop smoking. Though it is not easy, more than half of all adult smokers have quit. We encourage you to write down all the reasons you should quit smoking and set a quit date for yourself. Ask us how we can help. You may also call 9-470-EWUSNOW for free resources and assistance.; Status:Complete; Done: [id number] Patient Instructions Please bring all medicines, vitamins, [...] Recorded: 08Dec2022 08:41AM Heart Rate66, R Radial [id number], RUE, Sitting Msuthglrg99, RUE, Sitting Height5 ft 3 in Kfektk530 lb BMI Xxeiqykofl14.95 kg/m2 BSA Calculated1.88 Tobacco Usea) Yes Patient [...] JVP w (more content not included)... Normal [facility] Tobacco Screening.on 023 Fall risk assessment a) No falls within the last year [facility] y 250 DO Work Phone: Tobacco use status CP a) Yes [facility] y 250 DO Work Phone: Tobacco Screening. Yes [facility] y 250 DO Work Phone: Dipstick and [employer] 0 09-18-2022 Appearance (U) Cloudy Critically abnormal Clear [facility] Comment on above: Order Comment: Reaso n for Exam Chronic kidney disease, stage III (moderate);Diabetes mellit Performed By: #### P ROCRERAT #### [facility] [address] [place] [id number] [place] Bacteria,Urine 4+ High None Seen [facility] Comment on above: Order Comment: Reaso n for Exam Chronic kidney disease, stage III (moderate);Diabetes mellit Performed By: #### P ROCRERAT #### [facility] [address] [place] [address] [place] Bilirubin,Urine Negative Normal Negative [facility] Comment on above: Order Comment: Reaso n for Exam Chronic kidney disease, stage III (moderate);Diabetes mellit Performed By: #### P ROCRERAT #### [facility] [address] Color (U) Yellow Normal Yellow [facility] Comment on above: Order Comment: Reaso n for Exam Chronic kidney disease, stage III (moderate);Diabetes mellit Performed By: #### P ROCRERAT #### [facility] [address] Glucose Ql (U) Normal Normal Normal [facility] Comment on above: Order Comment: Reaso n for Exam Chronic kidney disease, stage III (moderate);Diabetes mellit Performed By: #### P ROCRERAT #### [facility] [address] [place] [address] Hyaline Casts,Urine 9-19 High 0-8 [facility] Comment on above: Order Comment: Reaso n for Exam Chronic kidney disease, stage III (moderate);Diabetes mellit Result Comment: PERF ORMED BY: [place] [address] PATHOLOGIST ENT SURGEON SHANTE LOMBARDI M.D. Performed By: #### P ROCRERAT #### [facility] [address] [place] [address] Ketones Ql (U) Negative Normal Negative [facility] Comment on above: Order Comment: Reaso n for Exam Chronic kidney disease, stage III (moderate);Diabetes mellit Performed By: #### P ROCRERAT #### [facility] [address] [place] [address] Leukocyte esterase Test strip Ql (U) 3+ High Negative [facility] Comment on above: Order Comment: Reaso n for Exam Chronic kidney disease, stage III (moderate);Diabetes mellit Performed By: #### P ROCRERAT #### [facility] [address] [place] [address] [place] Nitrite,Urine Positive High Negative [facility] Comment on above: Order Comment: Reaso n for Exam Chronic kidney disease, stage III (moderate);Diabetes mellit Performed By: #### P ROCRERAT #### [facility] [address] [place] [id number] [place] Occult Blood,Urine Negative Normal Negative [facility] Comment on above: Order Comment: Reaso n for Exam Chronic kidney disease, stage III (moderate);Diabetes mellit Performed By: #### P ROCRERAT #### [facility] [address] [place] [address] pH (U) 6.0 [pH] Normal 5.0-9.0 [facility] Comment on above: Order Comment: Reaso n for Exam Chronic kidney disease, stage III (moderate);Diabetes mellit Performed By: #### P ROCRERAT #### [facility] [facility] [address] [place] [address] Protein,Urine Negative Normal Negative [facility] Comment on above: Order Comment: Reaso n for Exam Chronic kidney disease, stage III (moderate);Diabetes mellit Performed By: #### P ROCRERAT #### [facility] [address] [place] [address] RBC,Urine None Seen Normal 0-4 [facility] Comment on above: Order Comment: Reaso n for Exam Chronic kidney disease, stage III (moderate);Diabetes mellit Performed By: #### P ROCRERAT #### [facility] [address] [place] [address] Specificy [place],Urine 1.013 Normal 1.001-1.030 [facility] Comment on above: Order Comment: Reaso n for Exam Chronic kidney disease, stage III (moderate);Diabetes mellit Performed By: #### P ROCRERAT #### [facility] [address] [place], [place] [id number] [place] Squamous Epithelial Cell,Urine 1-2 Normal 0-2 [facility] Comment on above: Order Comment: Reaso n for Exam Chronic kidney disease, stage III (moderate);Diabetes mellit Performed By: #### P ROCRERAT #### [facility] [address] [place] [address] Urobilinogen,Urine Normal Normal Normal [facility] Comment on above: Order Comment: Reaso n for Exam Chronic kidney disease, stage III (moderate);Diabetes mellit Performed By: #### P ROCRERAT #### [address] WBC,Urine 50-100 High 0-4 [facility] Comment on above: Order Comment: Reaso n for Exam Chronic kidney disease, stage III (moderate);Diabetes mellit Performed By: #### P ROCRERAT #### [address] Hemogram CBC Without Diffon 09-18-2022 Erythrocyte distribution width (RBC) [Ratio] 15.4 % High 11.9-15.3 [facility] Comment on above: Order Comment: Reaso n for Exam Chronic kidney disease, stage III (moderate);Diabetes mellit Performed By: #### C BC #### [address] Hematocrit (Bld) [Volume fraction] 41.9 % Normal 34.0-46.4 [facility] Comment on above: Order Comment: Reaso n for Exam Chronic kidney disease, stage III (moderate);Diabetes mellit Performed By: #### C BC #### [address] Hemoglobin (Bld) [Mass/Vol] 14.2 g/dL Normal 11.8-15.4 [facility] Comment on above: Order Comment: Reaso n for Exam Chronic kidney disease, stage III (moderate);Diabetes mellit Performed By: #### C BC #### [address] MCH (RBC) [Entitic mass] 30.8 pg Normal 24.7-34.3 [facility] Comment on above: Order Comment: Reaso n for Exam Chronic kidney disease, stage III (moderate);Diabetes mellit Performed By: #### C BC #### [address] MCV (RBC) [Entitic vol] 90.9 fL Normal 80-100 [facility] Comment on above: Order Comment: Reaso n for Exam Chronic kidney disease, stage III (moderate);Diabetes mellit Performed By: #### C BC #### [address] Mean Corpuscular HGB Conc 33.9 g/dL Normal 32.0-35.0 [facility] Comment on above: Order Comment: Reaso n for Exam Chronic kidney disease, stage III (moderate);Diabetes mellit Performed By: #### C BC #### [address] Platelet mean volume (Bld) [Entitic vol] 8.6 fL Normal 6.3-10.7 [facility] Comment on above: Order Comment: Reaso n for Exam Chronic kidney disease, stage III (moderate);Diabetes mellit Result Comment: PERF ORMED BY: [place] [address] PATHOLOGIST ENT SURGEON SHANTE LOMBARDI M.D. Performed By: #### C BC #### [address] Platelets (Bld) [#/Vol] 272 10*3/uL Normal 150-450 [facility] Comment on above: Order Comment: Reaso n for Exam Chronic kidney disease, stage III (moderate);Diabetes mellit Performed By: #### C BC #### [address] RBC (Bld) [#/Vol] 4.61 10*6/uL Normal 3.60-5.00 [facility] Comment on above: Order Comment: Reaso n for Exam Chronic kidney disease, stage III (moderate);Diabetes mellit Performed By: #### C BC #### [address] WBC (Bld) [#/Vol] 14.0 10*3/uL High 3.8-11.6 [facility] Comment on above: Order Comment: Reaso n for Exam Chronic kidney disease, stage III (moderate);Diabetes mellit Performed By: #### C BC #### [address] [place] [address] [place] Magnesiumon 09-18-2022 Magnesium [Mass/Vol] 1.9 mg/dL Normal 1.9-2.7 [facility] Comment on above: Order Comment: Reaso n for Exam Chronic kidney disease, stage III (moderate);Diabetes mellit Performed By: #### C BC #### [place] [id number] [facility] Parathyroid Hormone Intacton 09-18-2022 Parathyroid Hormone Intact 33.9 pg/mL Normal 12-88 [facility] Comment on above: Order Comment: Reaso n for Exam Chronic kidney disease, stage III (moderate);Diabetes mellit Result Comment: PERF ORMED BY: [place] [address] PATHOLOGIST ENT SURGEON SHANTE LOMBARDI M.D. Performed By: #### C BC #### [address] Protein Creat Ratio Ur Rando mon 09-18-2022 Creatinine, Urine (Random) 101.0 mg/dL High 11.0-20.0 [facility] Comment on above: Order Comment: Reaso n for Exam Chronic kidney disease, stage III (moderate);Diabetes mellit Performed By: #### C BC #### [address] Protein (U) [Mass/Vol] 10 mg/dL High 0-9 [facility] Comment on above: Order Comment: Reaso n for Exam Chronic kidney disease, stage III (moderate);Diabetes mellit Performed By: #### C BC #### [address] Urine Protein/Creatinine Ratio 99 mg/g{Cre} Normal 0-200 [facility] Comment on above: Order Comment: Reaso n for Exam Chronic kidney disease, stage III (moderate);Diabetes mellit Result Comment: PERF ORMED BY: [place] [address] PATHOLOGIST ENT SURGEON SHANTE LOMBARDI M.D. Performed By: #### C BC #### [facility] [address] [place] [address] Renal Function Panelon 09-18 Albumin [Mass/Vol] 3.9 g/dL Normal 3.5-5.7 [facility] Comment on above: Order Comment: Reaso n for Exam Chronic kidney disease, stage III (moderate);Diabetes mellit Performed By: #### C BC #### [address] Anion gap [Moles/Vol] 14.0 mmol/L Normal 6.0-15.0 [facility] Comment on above: Order Comment: Reaso n for Exam Chronic kidney disease, stage III (moderate);Diabetes mellit Performed By: #### C BC #### [address] Calcium [Mass/Vol] 10.0 mg/dL Normal 8.6-10.3 [facility] Comment on above: Order Comment: Reaso n for Exam Chronic kidney disease, stage III (moderate);Diabetes mellit Performed By: #### C BC #### [address] Chloride [Moles/Vol] 101 mmol/L Normal 98-107 [facility] Comment on above: Order Comment: Reaso n for Exam Chronic kidney disease, stage III (moderate);Diabetes mellit Performed By: #### C BC #### [address] CO2 [Moles/Vol] 27.9 mmol/L Normal 21.0-31.0 [facility] Comment on above: Order Comment: Reaso n for Exam Chronic kidney disease, stage III (moderate);Diabetes mellit Performed By: #### C BC #### [address] Creatinine [Mass/Vol] 1.78 mg/dL High 0.60-1.20 [facility] Comment on above: Order Comment: Reaso n for Exam Chronic kidney disease, stage III (moderate);Diabetes mellit Performed By: #### C BC #### [address] [place] [address] [place] GFR/1.73 sq M.predicted MDRD (S/P/Bld) [Vol rate/Area] 31.104 mL/min/{1.73_m2} Normal [facility] Comment on above: Order Comment: Reaso n for Exam Chronic kidney disease, stage III (moderate);Diabetes mellit Performed By: #### C BC #### [facility] [address] [id number] [place] Glucose [Mass/Vol] 167 mg/dL High 70-100 [facility] Comment on above: Order Comment: Reaso n for Exam Chronic kidney disease, stage III (moderate);Diabetes mellit Result Comment: [facility] Glucose Reference Range is dependent on time and content of last meal. Glucose of more than 200 mg/dL in a nonstressed, ambulatory subject supports the diagnosis of Diabetes Mellitus. ADA recommended reference range Performed By: #### C BC #### [facility] [address] [id number] [place] Phosphate [Mass/Vol] 4.4 mg/dL Normal 3.7-7.2 [facility] Comment on above: Order Comment: Reaso n for Exam Chronic kidney disease, stage III (moderate);Diabetes mellit Performed By: #### C BC #### [facility] [address] [place] [id number] [place] Potassium [Moles/Vol] 4.9 mmol/L Normal 3.5-5.1 [facility] Comment on above: Order Comment: Reaso n for Exam Chronic kidney disease, stage III (moderate);Diabetes mellit Performed By: #### C BC #### [facility] [address] [place] [id number] [place] Sodium [Moles/Vol] 138 mmol/L Normal 136-145 [facility] Comment on above: Order Comment: Reaso n for Exam Chronic kidney disease, stage III (moderate);Diabetes mellit Performed By: #### C BC #### [facility] [address] [place] [id number] [place] Urea nitrogen [Mass/Vol] 43 mg/dL High 7-25 [facility] Comment on above: Order Comment: Reaso n for Exam Chronic kidney disease, stage III (moderate);Diabetes mellit Performed By: #### C BC #### [facility] [address] [place] [id number] [facility] Uric Acidon 09-18-2022 Urate [Mass/Vol] 9.7 mg/dL High 2.3-6.6 [facility] Comment on above: Order Comment: Reaso n for Exam Chronic kidney disease, stage III (moderate);Diabetes mellit Performed By: #### C BC #### [facility] [address] [place] [id number] [facility] Urine Cultureon 09-18-2022 Bacteria identified Cx Nom (U) ORGANISM: Escherichia coli (O:ESCCOL) Lamar Count >100,000 Aerobic JACEY Charge (NMIC56) ------ [...] RESISTANT TO ALL B-LACTAM DRUGS. PERFORMED BY: [place] [address] PATHOLOGIST ENT SURGEON SHANTE LOMBARDI M.D. Normal [facility] Comment on above: Performed By: #### C BC #### [address] Vitamin D 25 Hydroxy Totalon 09-18-2022 Vitamin D 25 Hydroxy Total 45.1 ng/mL Normal 30-100 [facility] Comment on above: Order Comment: Reaso n for Exam Chronic kidney disease, stage III (moderate);Diabetes mellit Result Comment: DEBORAH MIN D STATUS 25(OH)VITAMIN D RANGE (ng/mL) Deficient <20 Insufficient 20 to <30 Sufficient 30 to 100 Reference: Raven MF,Isai NC, Randa WALSH, et al. Evaluation,treatment, and prevention of vitamin D deficiency; an Endocrine Society clinical practice guideline. JCEM. 2010; 96(7):1911-30. PERFORMED BY: [place] [address] PATHOLOGIST ENT SURGEON SHANTE LOMBARDI M.D. Performed By: #### C BC #### [address] CBC AUTO DIFFon 06-28-2022 BASO # 0.1 103/ul Normal 0.0-0.1 [facility] Comment on above: Performed By: #### C BC #### [facility] [address] [place] [address] Dr. Briana Dillard Basophils/100 WBC (Bld) 0.8 % Normal 0.2-2.0 [facility] Comment on above: Performed By: #### C BC #### [facility] [address] [place] [address] Dr. Briana Dillard EO # 0.3 103/ul Normal 0.0-0.7 [facility] Comment on above: Performed By: #### C BC #### [facility] [address] [place] [address] Dr. Briana Dillard Eosinophils/100 WBC (Bld) 2.5 % Normal 0.9-7.0 [facility] Comment on above: Performed By: #### C BC #### [facility] [address] [place] [address] Dr. Briana Dillard Erythrocyte distribution width (RBC) [Ratio] 14.8 % Normal 11.0-15.0 [facility] Comment on above: Performed By: #### C BC #### [facility] [address] [place] [address] Dr. Briana Dillard Hematocrit (Bld) [Volume fraction] 43.8 % Normal 36.0-48.0 [facility] Comment on above: Performed By: #### C BC #### [facility] [address] [place] [address] Dr. Briana Dillard Hemoglobin (Bld) [Mass/Vol] 14.5 g/dL Normal 12.0-16.0 [facility] Comment on above: Performed By: #### C BC #### [facility] [address] [place] [address] Dr. Briana Dillard IG # 0.13 10e3/ul Critically high 0.00-0.03 [facility] Comment on above: Performed By: #### C BC #### [facility] [address] [place] [address] Dr. Briana Dillard IG % 1.0 % Critically high 0.0-0.5 [facility] Comment on above: Performed By: #### C BC #### [facility] [address] [place] [address] Dr. Briana Dillard LYMPH # 2.5 103/ul Normal 1.2-3.8 [facility] Comment on above: Performed By: #### C BC #### [facility] [address] [place] [address] Dr. Briana Dillard Lymphocytes/100 WBC (Bld) 19.1 % Critically low 20.5-60.0 [facility] Comment on above: Performed By: #### C BC #### [facility] [address] [place] [address] Dr. Briana Dillard MANUAL DIFF REQ NO Normal [facility] Comment on above: Performed By: #### C BC #### [facility] [address] [address] [address] Briana Dillard MCH (RBC) [Entitic mass] 30.8 pg Normal 26.7-34.0 [facility] Comment on above: Performed By: #### C BC #### [facility] [address] [place] [address] Dr. Briana Dillard MCHC (RBC) [Mass/Vol] 33.1 g/dL Normal 29.9-35.2 [facility] Comment on above: Performed By: #### C BC #### [facility] [address] [place] [address] Dr. Briana Dillard MCV (RBC) [Entitic vol] 93.0 fL Normal 81.0-99.0 [facility] Comment on above: Performed By: #### C BC #### [facility] [address] [place] [address] Dr. Briana Dillard MONO # 0.7 103/ul Normal 0.3-0.8 [facility] Comment on above: Performed By: #### C BC #### [facility] [address] [place] [address] Dr. Briana Dillard Monocytes/100 WBC (Bld) 5.7 % Normal 1.7-12.0 [facility] Comment on above: Performed By: #### C BC #### [facility] [address] [place] [address] Dr. Briana Dillard NEUT # 9.2 103/ul Critically high 1.4-6.5 [facility] Comment on above: Performed By: #### C BC #### [facility] [address] [place] [address] Dr. Briana Dillard Neutrophils/100 WBC (Bld) 70.9 % Normal 43.0-75.0 [facility] Comment on above: Performed By: #### C BC #### [facility] [address] [place] [address] Dr. Briana Dillard Platelet mean volume (Bld) [Entitic vol] 10.4 fL Normal 9.5-13.5 [facility] Comment on above: Performed By: #### C BC #### [facility] [address] [address] [address] Briana Dillard PLT 262 103/ul Normal 150-450 [facility] Comment on above: Performed By: #### C BC #### [facility] [address] [address] [address] Briana Dillard RBC 4.71 106/ul Normal 4.20-5.40 [facility] Comment on above: Performed By: #### C BC #### [facility] [address] [address] [address] Briana Dillard WBC 13.0 103/ul Critically high 4.0-11.0 [facility] Comment on above: Performed By: #### C BC #### [facility] [address] [place] [address] Dr. Briana Dillard DIRECT LDLon 06-28-2022 Cholesterol in LDL [Mass/Vol] 90 mg/dL Normal [facility] Comment on above: Performed By: #### C MP, CMADM, BNP #### [facility] [address] [address] [address] Briana Dillard DLDL NORMAL SEE BELOW Normal [facility] Comment on above: Result Comment: <100 mg/dl OPTIMAL 100 - 129 mg/dl NEAR OR ABOVE OPTIMAL 130 - 159 mg/dl BORDERLINE HIGH 160 - 189 mg/dl HIGH >190 mg/dl VERY HIGH Performed By: #### C MP, CMADM, BNP #### [facility] [address] [place] [address] Dr. Briana Dillard GLYCOHEMOGLOBIN A1Con 2022 ADA RECOMMENDATION SEE BELOW Normal [facility] Comment on above: Result Comment: ADA RECOMMENDED LIMIT 4.0 - 6.0 ADA THERAPEUTIC TARGET < 7.0 ACTION SUGGESTED > 7.0 Performed By: #### C MP, CMADM, BNP #### [facility] [address] [place] [address] Dr. Briana Dillard Glucose [Mass/Vol] 229 mg/dL Normal [facility] Comment on above: Performed By: #### C MP, CMADM, BNP #### [facility] [address] [address] [address] Briana Dillard HbA1c (Bld) [Mass fraction] 9.6 % Critically high 4.5-6.2 [facility] Comment on above: Performed By: #### C MP, CMADM, BNP #### [facility] [address] [address] [address] Briana Dillard LIPID PROFILEon 06-28-2022 CHOL-HDL RATIO NORM SEE BELOW Normal [facility] Comment on above: Result Comment: 3.3 - 4.4 LOW RISK 4.4 - 7.1 AVERAGE RISK 7.1 - 11.0 MODERATE RISK >11.0 HIGH RISK Performed By: #### C MP, CMADM, BNP #### [facility] [address] [address] [address] Briana Dillard Cholesterol [Mass/Vol] 219 mg/dL Critically high <=200 [facility] Comment on above: Performed By: #### C MP, CMADM, BNP #### [facility] [address] [address] [address] Briana Dillard Cholesterol in HDL [Mass/Vol] 32 mg/dL Critically low 40-60 [facility] Comment on above: Performed By: #### C MP, CMADM, BNP #### [facility] [address] [address] [address] Briana Dillard Cholesterol.total/Choles terol in HDL [Mass ratio] 6.8 {ratio} Normal [facility] Comment on above: Performed By: #### C MP, CMADM, BNP #### [facility] [address] [address] [address] Briana Dillard HDL NORMAL > or = 60 mg/dl - LOW CARDIOVASCULAR RISK <40 mg/dl - HIGH CARDIOVASCULAR RISK Normal [facility] Comment on above: Performed By: #### C MP, CMADM, BNP #### [facility] [address] [address] [address] Briana Dillard LDL CALC NORMAL SEE BELOW Normal [facility] Comment on above: Result Comment: <100 mg/dl OPTIMAL 100 - 129 mg/dl NEAR OR ABOVE OPTIMAL 130 - 159 mg/dl BORDERLINE HIGH 160 - 189 mg/dl HIGH >190 mg/dl VERY HIGH Performed By: #### C MP, CMADM, BNP #### [facility] [address] [address] [address] Briana Dillard Triglyceride [Mass/Vol] 585 mg/dL Critically high <=150 [facility] Comment on above: Performed By: #### C MP, CMADM, BNP #### [facility] [address] [address] [address] Briana Dillard VLDL CALC 117.0 mg/dL Normal [facility] Comment on above: Performed By: #### C MP, CMADM, BNP #### [facility] [address] [place] [address] Dr. Briana Dillard PROF 14(COMP METB)on 023 Albumin [Mass/Vol] 3.6 g/dL Normal 3.4-5.0 [facility] Comment on above: Performed By: #### L IPID, CMP, DLDL #### [facility] [address] [place] [address] Dr. Briana Dillard Albumin/Globulin [Mass ratio] 0.9 {ratio} Normal [facility] Comment on above: Performed By: #### L IPID, CMP, DLDL #### [facility] [address] [place] [address] Dr. Briana Dillard ALP [Catalytic activity/Vol] 117 U/L Critically high 46-116 [facility] Comment on above: Performed By: #### L IPID, CMP, DLDL #### [facility] [address] [address] [address] Briana Dillard ALT [Catalytic activity/Vol] 42 U/L Normal 14-59 [facility] Comment on above: Performed By: #### L IPID, CMP, DLDL #### [facility] [address] [address] [address] Briana Dillard Anion gap [Moles/Vol] 15.4 mmol/L Normal [facility] Comment on above: Performed By: #### L IPID, CMP, DLDL #### [facility] [address] [address] [address] Briana Dillard AST [Catalytic activity/Vol] 29 U/L Normal 15-37 [facility] Comment on above: Performed By: #### L IPID, CMP, DLDL #### [facility] [address] [address] [address] Briana Dillard Bilirubin [Mass/Vol] 0.4 mg/dL Normal 0.2-1.0 [facility] Comment on above: Performed By: #### L IPID, CMP, DLDL #### [facility] [address] [address] [address] Briana Dillard Calcium [Mass/Vol] 10.2 mg/dL Critically high 8.5-10.1 [facility] Comment on above: Performed By: #### L IPID, CMP, DLDL #### [facility] [address] [place] [address] Dr. Briana Dillard Chloride [Moles/Vol] 100 mmol/L Normal 98-107 [facility] Comment on above: Performed By: #### L IPID, CMP, DLDL #### [facility] [address] [place] [address] Dr. Briana Dillard CO2 [Moles/Vol] 27.3 mmol/L Normal 21.0-32.0 [facility] Comment on above: Performed By: #### L IPID, CMP, DLDL #### [facility] [address] [address] [address] Briana Dillard Creatinine [Mass/Vol] 1.40 mg/dL Critically high 0.55-1.02 [facility] Comment on above: Performed By: #### L IPID, CMP, DLDL #### [facility] [address] [place] [address] Dr. Briana Dillard EGFR-AF SYRIAN 46 mL/min/1.73m2 Critically low >=60 [facility] Comment on above: Performed By: #### L IPID, CMP, DLDL #### [facility] [address] [place] [address] Dr. Briana Dillard EGFR-NON AF SYRIAN 38 mL/min/1.73m2 Critically low >=60 [facility] Comment on above: Performed By: #### L IPID, CMP, DLDL #### [facility] [address] [address] [address] Briana Dillard Globulin (S) [Mass/Vol] 3.9 g/dL Normal [facility] Comment on above: Performed By: #### L IPID, CMP, DLDL #### [facility] [address] [address] [address] Briana Dillard Glucose [Mass/Vol] 295 mg/dL Critically high 74-106 [facility] Comment on above: Performed By: #### L IPID, CMP, DLDL #### [facility] [address] [address] [address] Briana Dillard Potassium [Moles/Vol] 4.7 mmol/L Normal 3.5-5.1 [facility] Comment on above: Performed By: #### L IPID, CMP, DLDL #### [facility] [address] [address] [address] Briana Dillard Protein [Mass/Vol] 7.5 g/dL Normal 6.4-8.2 [facility] Comment on above: Performed By: #### L IPID, CMP, DLDL #### [facility] [address] [address] [address] Briana Dillard Sodium [Moles/Vol] 138 mmol/L Normal 136-145 [facility] Comment on above: Performed By: #### L IPID, CMP, DLDL #### [facility] [address] [address] [address] Briana Dillard Urea nitrogen [Mass/Vol] 34.0 mg/dL Critically high 7.0-18 .0 [facility] Comment on above: Performed By: #### L IPID, CMP, DLDL #### [facility] [address] [address] [address] Briana Dillard Urea nitrogen/Creatinine [Mass ratio] 24.3 mg/mg Normal [facility] Comment on above: Performed By: #### L IPID, CMP, DLDL #### [facility] [address] [address] [address] Briana Dillard UA RANDOM W/MICROSCOPICon BACTERIA TRACE Abnormal NONE SEEN [facility] Comment on above: Performed By: #### C MP, CMADM, BNP #### [facility] [address] [address] [address] Briana Dillard Bilirubin Ql (U) Negative Normal NEGATIVE [facility] Comment on above: Performed By: #### C MP, CMADM, BNP #### [facility] [address] [address] [address] Briana Dillard CAST NONE SEEN Normal NONE SEEN [facility] Comment on above: Performed By: #### C MP, CMADM, BNP #### [facility] [address] [place] [address] Dr. Briana Dillard Clarity (U) CLEAR Normal CLEAR [facility] Comment on above: Performed By: #### C MP, CMADM, BNP #### [facility] [address] [place] [address] Dr. Briana Dillard Color (U) LT. YELLOW Normal YELLOW [facility] Comment on above: Performed By: #### C MP, CMADM, BNP #### [facility] [address] [place] [address] Dr. Briana Dillard Crystals LM Nom (Urine sed) NONE SEEN Normal NONE SEEN [facility] Comment on above: Performed By: #### C MP, CMADM, BNP #### [facility] [address] [place] [address] Dr. Briana Dillard Epithelial cells LM Ql (Urine sed) MANY Abnormal NONE SEEN /RARE [facility] Comment on above: Performed By: #### C MP, CMADM, BNP #### [facility] [address] [place] [address] Dr. Briana Dillard Glucose Ql (U) Negative Normal NEGATIVE [facility] Comment on above: Performed By: #### C MP, CMADM, BNP #### [facility] [address] [address] [address] Briana Dillard Hemoglobin Ql (U) Negative Normal NEGATIVE [facility] Comment on above: Performed By: #### C MP, CMADM, BNP #### [facility] [address] [address] [address] Briana Dillard Ketones Ql (U) Negative Normal NEGATIVE [facility] Comment on above: Performed By: #### C MP, CMADM, BNP #### [facility] [address] [address] [address] Briana Dillard LEUKOCYTES TRACE Abnormal NEGATIVE [facility] Comment on above: Performed By: #### C MP, CMADM, BNP #### [facility] [address] [place] [address] Dr. Briana Dillard MUCOUS NONE SEEN Normal NONE SEEN [facility] Comment on above: Performed By: #### C MP, CMADM, BNP #### [facility] [address] [place] [address] Dr. Briana Dillard Nitrite Ql (U) Negative Normal NEGATIVE [facility] Comment on above: Performed By: #### C MP, CMADM, BNP #### [facility] [address] [place] [address] Dr. Briana Dillard pH (U) 6.0 [pH] Normal 5-9 [facility] Comment on above: Performed By: #### C MP, CMADM, BNP #### [facility] [address] [place] [address] Dr. Briana Dillard RBC 0-2 Normal 0-2 [facility] Comment on above: Performed By: #### C MP, CMADM, BNP #### [facility] [address] [place] [address] Dr. Briana Dillard SPEC GRAVITY 1.010 Normal 1.005-<=1.02 5 [facility] Comment on above: Performed By: #### C MP, CMADM, BNP #### [facility] [address] [place] [address] Dr. Briana Dillard UA PROTEIN TRACE Normal NEGATIVE/ TRACE [facility] Comment on above: Performed By: #### C MP, CMADM, BNP #### [facility] [address] [place] [address] Dr. Briana Dillard Urobilinogen Qn (U) 0.2 {Samuel'U}/dL Normal 0.2 - 1. 0 [facility] Comment on above: Performed By: #### C MP, CMADM, BNP #### [facility] [address] [place] [address] Dr. Briana Dillard WBC 2-5 Abnormal NONE SEEN [facility] Comment on above: Performed By: #### C MP, CMADM, BNP #### [facility] [address] [place] [address] Dr. Briana Dillard URINE T PROTEIN CREAT RATIOo n 06-28-2022 Protein (U) [Mass/Vol] 30.3 mg/dL Critically high <=12.0 [facility] Comment on above: Performed By: #### C MP, CMADM, BNP #### [facility] [address] [place] [address] Dr. Briana Dillard UR PROT CREAT RAT 0.80 Normal [facility] Comment on above: Performed By: #### C MP, CMADM, BNP #### [facility] [address] [place] [address] Dr. Briana Dillard URINE CREAT 38.11 mg/dL Normal 20.00-300.00 [facility] Comment on above: Performed By: #### C MP, CMADM, BNP #### [facility] [address] [place] [address] Dr. Briana Dillard POINT OF CARE GLUCOSEon 05-05 Glucose [Mass/Vol] 296 mg/dL Critically high 74-106 [facility] Comment on above: Performed By: #### C MP, CMADM, BNP #### [facility] [address] [place] [address] Dr. Briana Dillard POINT OF CARE GLUCOSEon 05-04 Glucose [Mass/Vol] 312 mg/dL Critically high 74-106 [facility] Comment on above: Performed By: #### C BC #### [facility] [address] [place] [address] Dr. Briana Dillard GLYCOHEMOGLOBIN A1Con 2021 ADA RECOMMENDATION SEE BELOW Normal [facility] Comment on above: Result Comment: ADA RECOMMENDED LIMIT 4.0 - 6.0 ADA THERAPEUTIC TARGET < 7.0 ACTION SUGGESTED > 7.0 Performed By: #### A 1C #### [facility] [address] [place] [address] Dr. Briana Dillard Glucose [Mass/Vol] 223 mg/dL Normal [facility] Comment on above: Performed By: #### A 1C #### [facility] [address] [place] [address] Dr. Briana Dillard HbA1c (Bld) [Mass fraction] 9.4 % Critically high 4.5-6.2 [facility] Comment on above: Performed By: #### A 1C #### [facility] [address] [place] [address] Dr. Briana Dillard CBC AUTO DIFFon 11-29-2021 BASO # 0.1 103/ul Normal 0.0-0.1 [facility] Comment on above: Performed By: #### C BC #### [facility] [address] [place] [address] Dr. Briana Dillard Basophils/100 WBC (Bld) 0.9 % Normal 0.2-2.0 [facility] Comment on above: Performed By: #### C BC #### [facility] [address] [place] [address] Dr. Briana Dillard EO # 0.3 103/ul Normal 0.0-0.7 [facility] Comment on above: Performed By: #### C BC #### [facility] [address] [place] [address] Dr. Briana Dillard Eosinophils/100 WBC (Bld) 2.7 % Normal 0.9-7.0 [facility] Comment on above: Performed By: #### C BC #### [facility] [address] [place] [address] Dr. Briana Dillard Erythrocyte distribution width (RBC) [Ratio] 15.8 % Critically high 11.0-15.0 [facility] Comment on above: Performed By: #### C BC #### [facility] [address] [address] [address] Briana Dillard Hematocrit (Bld) [Volume fraction] 39.4 % Normal 36.0-48.0 [facility] Comment on above: Performed By: #### C BC #### [facility] [address] [address] [address] Briana Dillard Hemoglobin (Bld) [Mass/Vol] 13.0 g/dL Normal 12.0-16.0 [facility] Comment on above: Performed By: #### C BC #### [facility] [address] [place] [address] Dr. Briana Dillard IG # 0.12 10e3/ul Critically high 0.00-0.03 [facility] Comment on above: Performed By: #### C BC #### [facility] [address] [place] [address] Dr. Briana Dillard IG % 1.1 % Critically high 0.0-0.5 [facility] Comment on above: Performed By: #### C BC #### [facility] [address] [address] [address] Briana Dillard LYMPH # 2.7 103/ul Normal 1.2-3.8 [facility] Comment on above: Performed By: #### C BC #### [facility] [address] [place] [address] Dr. Briana Dillard Lymphocytes/100 WBC (Bld) 25.6 % Normal 20.5-60.0 [facility] Comment on above: Performed By: #### C BC #### [facility] [address] [address] [address] Briana Dillard MANUAL DIFF REQ NO Normal [facility] Comment on above: Performed By: #### C BC #### [facility] [address] [place] [address] Dr. Briana Dillard MCH (RBC) [Entitic mass] 30.9 pg Normal 26.7-34.0 [facility] Comment on above: Performed By: #### C BC #### [facility] [address] [address] [address] Briana Dillard MCHC (RBC) [Mass/Vol] 33.0 g/dL Normal 29.9-35.2 [facility] Comment on above: Performed By: #### C BC #### [facility] [address] [address] [address] Briana Dillard MCV (RBC) [Entitic vol] 93.6 fL Normal 81.0-99.0 [facility] Comment on above: Performed By: #### C BC #### [facility] [address] [place] [address] Dr. Briana Dillard MONO # 0.8 103/ul Normal 0.3-0.8 [facility] Comment on above: Performed By: #### C BC #### [facility] [address] [place] [address] Dr. Briana Dillard Monocytes/100 WBC (Bld) 7.9 % Normal 1.7-12.0 [facility] Comment on above: Performed By: #### C BC #### [facility] [address] [place] [address] Dr. Briana Dillard NEUT # 6.6 103/ul Critically high 1.4-6.5 [facility] Comment on above: Performed By: #### C BC #### [facility] [address] [place] [address] Dr. Briana Dillard Neutrophils/100 WBC (Bld) 61.8 % Normal 43.0-75.0 [facility] Comment on above: Performed By: #### C BC #### [facility] [address] [place] [address] Dr. Briana Dillard Platelet mean volume (Bld) [Entitic vol] 10.3 fL Normal 9.5-13.5 [facility] Comment on above: Performed By: #### C BC #### [facility] [address] [place] [address] Dr. Briana Dillard PLT 234 103/ul Normal 150-450 [facility] Comment on above: Performed By: #### C BC #### [facility] [address] [address] [address] Briana Dillard RBC 4.21 106/ul Normal 4.20-5.40 [facility] Comment on above: Performed By: #### C BC #### [facility] [address] [address] [address] Briana Dillard WBC 10.6 103/ul Normal 4.0-11.0 [facility] Comment on above: Performed By: #### C BC #### [facility] [address] [place] [address] Dr. Briana Dillard GLYCOHEMOGLOBIN A1Con 2021 ADA RECOMMENDATION SEE BELOW Normal [facility] Comment on above: Result Comment: ADA RECOMMENDED LIMIT 4.0 - 6.0 ADA THERAPEUTIC TARGET < 7.0 ACTION SUGGESTED > 7.0 Performed By: #### C BC #### [facility] [address] [place] [address] Dr. Briana Dillard Glucose [Mass/Vol] 220 mg/dL Normal [facility] Comment on above: Performed By: #### C BC #### [facility] [address] [place] [address] Dr. Briana Dillard HbA1c (Bld) [Mass fraction] 9.3 % Critically high 4.5-6.2 [facility] Comment on above: Performed By: #### C BC #### [facility] [address] [place] [address] Dr. Briana Dillard LIPID PROFILEon 11-29-2021 CHOL-HDL RATIO NORM SEE BELOW Normal [facility] Comment on above: Result Comment: 3.3 - 4.4 LOW RISK 4.4 - 7.1 AVERAGE RISK 7.1 - 11.0 MODERATE RISK >11.0 HIGH RISK Performed By: #### C MP, CMADM, BNP #### [facility] [address] [place] [address] Dr. Briana Dillard Cholesterol [Mass/Vol] 135 mg/dL Normal <=200 Th [facility] Comment on above: Performed By: #### C MP, CMADM, BNP #### [facility] [address] [address] [address] Briana Dillard Cholesterol in HDL [Mass/Vol] 44 mg/dL Normal 40-60 [facility] Comment on above: Performed By: #### C KYLE COLMENARESDM, BNP #### [facility] [address] [address] [address] Briana Dillard Cholesterol in LDL [Mass/Vol] 60.2 mg/dL Normal [facility] Comment on above: Performed By: #### C KYLE COLMENARESDM, BNP #### [facility] [address] [address] [address] Briana Dillard Cholesterol.total/Choles terol in HDL [Mass ratio] 3.1 {ratio} Normal [facility] Comment on above: Performed By: #### C KYLE COLMENARESDM, BNP #### [facility] [address] [address] [address] Briana Dillard HDL NORMAL > or = 60 mg/dl - LOW CARDIOVASCULAR RISK <40 mg/dl - HIGH CARDIOVASCULAR RISK Normal [facility] Comment on above: Performed By: #### C KYLE COLMENARESDM, BNP #### [facility] [address] [place] [address] Dr. Briana Dillard LDL CALC NORMAL SEE BELOW Normal [facility] Comment on above: Result Comment: <100 mg/dl OPTIMAL 100 - 129 mg/dl NEAR OR ABOVE OPTIMAL 130 - 159 mg/dl BORDERLINE HIGH 160 - 189 mg/dl HIGH >190 mg/dl VERY HIGH Performed By: #### C KYLE COLMENARESDM, BNP #### [facility] [address] [address] [address] Briana Dillard Triglyceride [Mass/Vol] 154 mg/dL Critically high <=150 [facility] Comment on above: Performed By: #### C KYLE COLMENARESDM, BNP #### [facility] [address] [place] [address] Dr. Briana Dillard VLDL CALC 30.8 mg/dL Normal [facility] Comment on above: Performed By: #### C MP, CMADM, BNP #### [facility] [address] [address] [address] Briana Dillard POINT OF CARE GLUCOSEon 07-2 9-2022 Glucose [Mass/Vol] 271 mg/dL Critically high 74-106 [facility] Comment on above: Performed By: #### C BC #### [facility] [address] [place] [address] Dr. Briana Dillard Glucose [Mass/Vol] 180 mg/dL Critically high 74-106 [facility] Comment on above: Performed By: #### C MP, CMADM, BNP #### [facility] [address] [place] [address] Dr. Briana Dillard BNPon 11-28-2021 Natriuretic peptide B (Bld) [Mass/Vol] 86.0 pg/mL Normal <=900.0 [facility] Comment on above: Performed By: #### C MP, CMADM, BNP #### [facility] [address] [place] [address] Dr. Briana Dillard CARDIAC TANIA ADMITon 022 CK [Catalytic activity/Vol] 52 U/L Normal 26-192 [facility] Comment on above: Performed By: #### C MP, CMADM, BNP #### [facility] [address] [place] [address] Dr. Briana Dillard CK.MB [Mass/Vol] 0.65 ng/mL Normal <=3.60 [facility] Comment on above: Performed By: #### C MP, CMADM, BNP #### [facility] [address] [place] [address] Dr. Briana Dillard HSTROP 4.8 pg/mL Normal 4.0-51.3 [facility] Comment on above: Result Comment: CUT- OFF POINTS HAVE BEEN ESTABLISHED BASED ON THE FOURTH UNIVERSAL DEFINITIONS OF MYOCARDIAL INFARCTION. THE UPPER REFERENCE LIMIT (URL) OF TROPONIN, DEFINED THE 99TH PERCENTILE OF cTnI DISTRIBUTION IN A REFERENCE POPULATION, HAS BEEN CONFIRMED THE DECISION THRESHOLD FOR AL DIAGNOSIS. Performed By: #### C MP, CMADM, BNP #### [facility] [address] [place] [address] Dr. Briana Dillard YONIS 47 ng/mL Normal 9-82 [facility] Comment on above: Performed By: #### C MP, CMADM, BNP #### [facility] [address] [address] [address] Briana Dillard CBC AUTO DIFFon 11-28-2021 BASO # 0.1 103/ul Normal 0.0-0.1 [facility] Comment on above: Performed By: #### C BC #### [facility] [address] [address] [address] Briana Dillard Basophils/100 WBC (Bld) 0.8 % Normal 0.2-2.0 [facility] Comment on above: Performed By: #### C BC #### [facility] [address] [address] [address] Briana Dillard EO # 0.2 103/ul Normal 0.0-0.7 [facility] Comment on above: Performed By: #### C BC #### [facility] [address] [place] [address] Dr. Briana Dillard Eosinophils/100 WBC (Bld) 1.4 % Normal 0.9-7.0 [facility] Comment on above: Performed By: #### C BC #### [facility] [address] [address] [address] Briana Dillard Erythrocyte distribution width (RBC) [Ratio] 15.8 % Critically high 11.0-15.0 [facility] Comment on above: Performed By: #### C BC #### [facility] [address] [address] [address] Briana Dillard Hematocrit (Bld) [Volume fraction] 42.2 % Normal 36.0-48.0 [facility] Comment on above: Performed By: #### C BC #### [facility] [address] [address] [address] Briana Dillard Hemoglobin (Bld) [Mass/Vol] 14.3 g/dL Normal 12.0-16.0 [facility] Comment on above: Performed By: #### C BC #### [facility] [address] [address] [address] Briana Dillard IG # 0.14 10e3/ul Critically high 0.00-0.03 [facility] Comment on above: Performed By: #### C BC #### [facility] [address] [address] [address] Briana Dillard IG % 1.1 % Critically high 0.0-0.5 [facility] Comment on above: Performed By: #### C BC #### [facility] [address] [address] [address] Briana Dillard LYMPH # 1.9 103/ul Normal 1.2-3.8 [facility] Comment on above: Performed By: #### C BC #### [facility] [address] [place] [address] Dr. Briana Dillard Lymphocytes/100 WBC (Bld) 14.0 % Critically low 20.5-60.0 [facility] Comment on above: Performed By: #### C BC #### [facility] [address] [place] [address] Dr. Briana Dillard MANUAL DIFF REQ NO Normal [facility] Comment on above: Performed By: #### C BC #### [facility] [address] [place] [address] Dr. Briana Dillard MCH (RBC) [Entitic mass] 31.2 pg Normal 26.7-34.0 [facility] Comment on above: Performed By: #### C BC #### [facility] [address] [place] [address] Dr. Briana Dillard MCHC (RBC) [Mass/Vol] 33.9 g/dL Normal 29.9-35.2 [facility] Comment on above: Performed By: #### C BC #### [facility] [address] [place] [address] Dr. Briana Dillard MCV (RBC) [Entitic vol] 92.1 fL Normal 81.0-99.0 [facility] Comment on above: Performed By: #### C BC #### [facility] [address] [place] [address] Dr. Briana Dillard MONO # 1.1 103/ul Critically high 0.3-0.8 [facility] Comment on above: Performed By: #### C BC #### [facility] [address] [address] [address] Briana Dillard Monocytes/100 WBC (Bld) 8.0 % Normal 1.7-12.0 [facility] Comment on above: Performed By: #### C BC #### [facility] [address] [address] [address] Briana Dillard NEUT # 9.9 103/ul Critically high 1.4-6.5 [facility] Comment on above: Performed By: #### C BC #### [facility] [address] [address] [address] Briana Dillard Neutrophils/100 WBC (Bld) 74.7 % Normal 43.0-75.0 [facility] Comment on above: Performed By: #### C BC #### [facility] [address] [place] [address] Dr. Briana Dillard Platelet mean volume (Bld) [Entitic vol] 10.1 fL Normal 9.5-13.5 [facility] Comment on above: Performed By: #### C BC #### [facility] [address] [address] [address] Briana Dillard PLT 241 103/ul Normal 150-450 [facility] Comment on above: Performed By: #### C BC #### [facility] [address] [place] [address] Dr. Briana Dillard RBC 4.58 106/ul Normal 4.20-5.40 [facility] Comment on above: Performed By: #### C BC #### [facility] [address] [place] [address] Dr. Briana Dillard WBC 13.2 103/ul Critically high 4.0-11.0 [facility] Comment on above: Performed By: #### C BC #### [facility] [address] [place] [address] Dr. Briana Dillard CTA CHEST WO W [...] NADJA KEMP Date: 2021-11-28 13:10 Normal [facility]02 SARS-CoV-2 (COVID-19) RNA ANTOINE+probe Ql (Unsp spec) Not detected Normal NOT DETECTED [facility] Comment on above: Result Comment: When [...] for this test is supported by the [employer] of Health and Human Service's declaration that [...] be used). Performed By: #### C MP, GEOVANY, BNP #### [facility] [address] [address] [address] Briana Dillard D-DIMERon 11-28-2021 D-DIMER 0.77 mg/L FEU Critically high <=0.59 [facility] Comment on above: Performed By: #### P T, PTT, DDIM #### [facility] [address] [address] [address] Briana Dillard D-DIMER COMMENTS SEE BELOW Normal [facility] Comment on above: Result Comment: Incr eases [...] By: #### P T, PTT, DDIM #### [facility] [address] [address] [address] Briana Dillard POINT OF CARE GLUCOSEon 11-02 Glucose [Mass/Vol] 213 mg/dL Critically high 74-106 [facility] Comment on above: Performed By: #### P OCGLUC #### [facility] [facility] [address] [address] [address] Briana Dillard Glucose [Mass/Vol] 255 mg/dL Critically high 74-106 [facility] Comment on above: Performed By: #### C MP, CMADM, BNP #### [facility] [address] [address] [address] Briana Dillard PROF 14(COMP METB)on 022 Albumin [Mass/Vol] 3.4 g/dL Normal 3.4-5.0 [facility] Comment on above: Performed By: #### C MP, CMADM, BNP #### [facility] [address] [place] [address] Dr. Briana Dillard Albumin/Globulin [Mass ratio] 0.9 {ratio} Normal [facility] Comment on above: Performed By: #### C MP, CMADM, BNP #### [facility] [address] [address] [address] Briana Dillard ALP [Catalytic activity/Vol] 126 U/L Critically high 46-116 [facility] Comment on above: Performed By: #### C MP, CMADM, BNP #### [facility] [address] [address] [address] Briana Dillard ALT [Catalytic activity/Vol] 30 U/L Normal 14-59 [facility] Comment on above: Performed By: #### C MP, CMADM, BNP #### [facility] [address] [place] [address] Dr. Briana Dillard Anion gap [Moles/Vol] 13.6 mmol/L Normal [facility] Comment on above: Performed By: #### C MP, CMADM, BNP #### [facility] [address] [place] [address] Dr. Briana Dillard AST [Catalytic activity/Vol] 18 U/L Normal 15-37 [facility] Comment on above: Performed By: #### C MP, CMADM, BNP #### [facility] [address] [place] [address] Dr. Briana Dillard Bilirubin [Mass/Vol] 0.4 mg/dL Normal 0.2-1.0 [facility] Comment on above: Performed By: #### C MP, CMADM, BNP #### [facility] [address] [place] [address] Dr. Briana Dillard Calcium [Mass/Vol] 8.9 mg/dL Normal 8.5-10.1 [facility] Comment on above: Performed By: #### C MP, CMADM, BNP #### [facility] [address] [place] [address] Dr. Briana Dillard Chloride [Moles/Vol] 98 mmol/L Normal 98-107 [facility] Comment on above: Performed By: #### C MP, CMADM, BNP #### [facility] [address] [place] [address] Dr. Briana Dillard CO2 [Moles/Vol] 25.0 mmol/L Normal 21.0-32.0 [facility] Comment on above: Performed By: #### C MP CMADM, BNP #### [facility] [address] [address] [address] Briana Dillard Creatinine [Mass/Vol] 1.58 mg/dL Critically high 0.55-1.02 [facility] Comment on above: Performed By: #### C MP, CMADM, BNP #### [facility] [address] [place] [address] Dr. Briana Dillard EGFR-AF SYRIAN 40 mL/min/1.73m2 Critically low >=60 [facility] Comment on above: Performed By: #### C MP, CMADM, BNP #### [facility] [address] [place] [address] Dr. Briana Dillard EGFR-NON AF SYRIAN 33 mL/min/1.73m2 Critically low >=60 [facility] Comment on above: Performed By: #### C MP CMADM, BNP #### [facility] [address] [place] [address] Dr. Briana Dillard Globulin (S) [Mass/Vol] 4.0 g/dL Normal [facility] Comment on above: Performed By: #### C MP CMADM, BNP #### [facility] [address] [place] [address] Dr. Briana Dillard Glucose [Mass/Vol] 386 mg/dL Critically high 74-106 [facility] Comment on above: Performed By: #### C MP, CMADM, BNP #### [facility] [address] [place] [address] Dr. Briana Dillard Potassium [Moles/Vol] 4.6 mmol/L Normal 3.5-5.1 [facility] Comment on above: Performed By: #### C MP, CMADM, BNP #### [facility] [address] [address] [address] Briana Dillard Protein [Mass/Vol] 7.4 g/dL Normal 6.4-8.2 [facility] Comment on above: Performed By: #### C MP, CMADM, BNP #### [facility] [address] [place] [address] Dr. Briana Dillard Sodium [Moles/Vol] 132 mmol/L Critically low 136-145 Th [facility] Comment on above: Performed By: #### C MP, CMADM, BNP #### [facility] [address] [place] [address] Dr. Briana Dillard Urea nitrogen [Mass/Vol] 23.0 mg/dL Critically high 7.0-18 .0 [facility] Comment on above: Performed By: #### C MP, CMADM, BNP #### [facility] [address] [place] [address] Dr. Briana Dillard Urea nitrogen/Creatinine [Mass ratio] 14.6 mg/mg Normal [facility] Comment on above: Performed By: #### C MP, CMADM, BNP #### [facility] [address] [place] [address] Dr. Briana Dillard PROTIMEon 11-28-2021 INR Coag (PPP) [Relative time] 1.01 {INR} Normal [facility] Comment on above: Performed By: #### P T, PTT, DDIM #### [facility] [address] [place] [address] Dr. Briana Dillard INR GUIDELINES SEE BELOW Normal [facility] Comment on above: Result Comment: LURDES RED INR: 2.0 - 3.0 CONDITIONS NOT LISTED BELOW 2.5 - 3.5 FOR PROSTHETIC HEART VALVE REPLACEMENT 2.5 - 3.5 RECURRENT THROMBOSIS Performed By: #### P T, PTT, DDIM #### [facility] [address] [place] [address] Dr. Briana Dillard PT Coag (PPP) [Time] 10.9 s Normal 9.0-11.6 [facility] Comment on above: Performed By: #### P T, PTT, DDIM #### [facility] [address] [place] [address] Dr. Briana Dillard PTTon 11-28-2021 aPTT Coag (Bld) [Time] 27.5 s Normal 22.3-36.2 Th e [facility] Comment on above: Performed By: #### P T, PTT, DDIM #### [facility] [address] [place], [place] [address] Dr. Briana Dillard TROPONIN, HIGH SENSITIVITYon 11-28-2021 HSTROP 5.5 pg/mL Normal 4.0-51.3 [facility] Comment on above: Result Comment: CUT- OFF POINTS HAVE BEEN ESTABLISHED BASED ON THE FOURTH UNIVERSAL DEFINITIONS OF MYOCARDIAL INFARCTION. THE UPPER REFERENCE LIMIT (URL) OF TROPONIN, DEFINED THE 99TH PERCENTILE OF cTnI DISTRIBUTION IN A REFERENCE POPULATION, HAS BEEN CONFIRMED THE DECISION THRESHOLD FOR AL DIAGNOSIS. Performed By: #### C MP, CMADM, BNP #### [facility] [address] [address] [address] Briana Dillard HSTROP 5.4 pg/mL Normal 4.0-51.3 [facility] Comment on above: Result Comment: CUT- OFF POINTS HAVE BEEN ESTABLISHED BASED ON THE FOURTH UNIVERSAL DEFINITIONS OF MYOCARDIAL INFARCTION. THE UPPER REFERENCE LIMIT (URL) OF TROPONIN, DEFINED THE 99TH PERCENTILE OF cTnI DISTRIBUTION IN A REFERENCE POPULATION, HAS BEEN CONFIRMED THE DECISION THRESHOLD FOR AL DIAGNOSIS. Performed By: #### C MP, CMADM, BNP #### [facility] [address] [address] [address] Briana Dillard HSTROP 5.6 pg/mL Normal 4.0-51.3 [facility] Comment on above: Result Comment: CUT- OFF POINTS HAVE BEEN ESTABLISHED BASED ON THE FOURTH UNIVERSAL DEFINITIONS OF MYOCARDIAL INFARCTION. THE UPPER REFERENCE LIMIT (URL) OF TROPONIN, DEFINED THE 99TH PERCENTILE OF cTnI DISTRIBUTION IN A REFERENCE POPULATION, HAS BEEN CONFIRMED THE DECISION THRESHOLD FOR AL DIAGNOSIS. Performed By: #### C MP, CMADM, BNP #### [facility] [id number] Briana Dillard XR CHEST 1 Von [...] NADJA KEMP Date: 2021-11-28 12:46 Normal [facility] Tobacco Screening.on 022 Adult depression screening assessment Yes [facility] DO Work Phone: Tobacco use status CPHS a) Yes M [facility] DO Work Phone: Tobacco Screening. Yes -[facility] DO Work Phone: Tobacco Screening. 1-Several days [facility] Work Phone: Tobacco Screening. 0-Not at all [facility] DO Work Phone: Tobacco Screening. Not difficult at all [facility] DO Work Phone: Echocardiogramon 05-20-[address], [address] [place] [address] TRANSTHORACIC ECHOCARDIOGRAM REPORT Patient Name: VIDHYA IBARRA Reading Physician: [id number] Ruma Dawn MD Study Date: 05/20/2021 Referring [id number] SHASHI COTTRELL Physician: MRN/PID: [id number] PCP: Accession/Order#: [id number] [facility] Location: Date of : 1955 Fellow: Gender: F Nurse: Admit Date: Manager Contracting: Clarisse Sumner RDCS Yaakov Height: 160.02 cm CC Report to: Weight: 89.36 kg Study Type: Echocardiogram BSA: 1.92 m2 Blood Pressure: 166 /94 mmHg Diagnosis/ICD: I51.7-Cardiomegaly; R06.00-Dyspnea, unspecified Indication: Obesity, Tobacco Abuse Procedure/CPT: Echo Complete w Full [id number] Study Detail: The following Echo studies were [...] 0.9 m/s (0.6-0.9m/s) PV Max P.1 mmHg [id number] Ruma Dawn MD Electronically signed on 05/24/2021 at 5:25:46 PM Final Normal [facility] Tobacco Screening.on 022 Fall risk assessment a) No falls within the last year [facility] 250 DO Work Phone: Tobacco use status CPHS a) Yes M [facility] 250 DO Work Phone: Fall risk assessment a) No falls within the last year [facility] DO Work Phone: Tobacco use status CPHS a) Yes M [facility] 250 DO Work Phone: Tobacco Screening. Yes [facility] DO Work Phone: Bld Gas Venon 12-02-2019 Allens Test N/A [facility] Comment on above: Result Comment: [facility] [address] [place] [address] Performed By: #### 1 [id number] #### [facility] [address] [place] [address] Called By: KATHY OCHOA [facility] Comment on above: Performed By: #### 1 [id number] #### [facility] [address] [place] [address] Called To: DR. CORINNE COFFMAN [facility] Comment on above: Performed By: #### 1 [id number] #### [facility] [address] [place] [address] Drawn by PEDRO [facility] Comment on above: Performed By: #### 1 [id number] #### [facility] [address] [place] [address] Dt/Tm Notified 17:42:00 F [facility] Comment on above: Performed By: #### 1 [id number] #### [facility] [address] [place] [address] pCO2 Guillaume 36.1 mmHg Low 38.0-50.[address] [facility] Comment on above: Performed By: #### 1 [id number] #### [facility] [address] [place] [address] pH (BldV) 7.392 [pH] Normal 7.320-7.[address] [facility] Comment on above: Performed By: #### 1 [id number] #### [facility] [address] [place] [address] Sample Site OTHER [facility] Comment on above: Performed By: #### 1 [id number] #### [facility] [address] [place] [address] Sample Type Venous [facility] Comment on above: Performed By: #### 1 [id number] #### [facility] [address] [place] [address] Physician Orderon 12-02-2019 Physician Order [id number]:[address] [facility] Vital Signs Date Time Vital Sign Value Performing Clinician Facility 08-05-2023 10:22-0400 Body temperature 97.2 [degF] MD Shaikh Mchugh Work Phone: [facility] 08-05-2023 10:22-0400 Body weight 89.81 kg MD Shaikh Mchugh Work Phone: [facility] 08-05-2023 10:22-0400 Diastolic blood pressure 75 mm[Hg] MD Shaikh Mchugh Work Phone: [facility] 08-05-2023 10:22-0400 Heart rate 71 /min MD Shaikh Mchugh Work Phone: [facility] 08-05-2023 10:22-0400 Respiratory rate 16 /min MD Shaikh Mchugh Work Phone: [facility] 08-05-2023 10:22-0400 SaO2% (BldA) [Mass fraction] 90 % MD Shaikh Mchugh Work Phone: [facility] 08-05-2023 10:22-0400 Systolic blood pressure 162 mm[Hg] MD Shaikh Mchugh Work Phone: [facility] 06-24-2023 10:07-0500 Body height 160.02 cm MD Shaikh Mchugh Work Phone: [facility] 06-24-2023 10:07-0500 Body mass index (BMI) [Ratio] 34.2 kg/m2 MD Shaikh Mchugh Work Phone: [facility] 06-24-2023 10:07-0500 Body temperature 97.2 [degF] MD Shaikh Mchugh Work Phone: [facility] 06-24-2023 10:07-0500 Body weight 87.54 kg MD Shaikh Mchugh Work Phone: [facility] 06-24-2023 10:07-0500 Diastolic blood pressure 96 mm[Hg] MD Shaikh Mchugh Work Phone: [facility] 06-24-2023 10:07-0500 Heart rate 78 /min MD Shaikh Mchugh Work Phone: [facility] 06-24-2023 10:07-0500 Respiratory rate 16 /min MD Shaikh Mchugh Work Phone: [facility] 06-24-2023 10:07-0500 SaO2% (BldA) [Mass fraction] 95 % MD Shaikh Mchugh Work Phone: [facility] 06-24-2023 10:07-0500 Systolic blood pressure 160 mm[Hg] MD Shaikh Mchugh Work Phone: [facility] 03-24-2023 13:06-0500 Body temperature 97.8 [degF] MD Shaikh Mchugh Work Phone: [facility] 03-24-2023 13:06-0500 Body weight 86.63 kg MD Shaikh Mchugh Work Phone: [facility] 03-24-2023 13:06-0500 Diastolic blood pressure 67 mm[Hg] MD Shaikh Mchugh Work Phone: [facility] 03-24-2023 13:06-0500 Heart rate 68 /min MD Shaikh Mchugh Work Phone: [facility] 03-24-2023 13:06-0500 Respiratory rate 16 /min MD Shaikh Mchugh Work Phone: [facility] 03-24-2023 13:06-0500 SaO2% (BldA) [Mass fraction] 98 % MD Shaikh Mchugh Work Phone: [facility] 03-24-2023 13:06-0500 Systolic blood pressure 130 mm[Hg] MD Shaikh Mchugh Work Phone: [facility] 03-24-2023 12:53-0500 Body height 160.02 cm MD Shaikh Mchugh Work Phone: [facility] 03-11-2023 09:20-0500 Body height 162.56 cm Alta Sharmaine Other [facility] Other 03-11-2023 09:20-0500 Body mass index (BMI) [Ratio] 32.78 kg/m2 Alta Sharmaine Other [facility] Other 03-11-2023 09:20-0500 Body temperature 96.3 [degF] Alta Sharmaine Other [facility] Other 03-11-2023 09:20-0500 Body weight 86.64 kg Alta Sharmaine Other [facility] Other 03-11-2023 09:20-0500 Diastolic blood pressure 77 mm[Hg] Alta Sharmaine Other [facility] Other 03-11-2023 09:20-0500 Respiratory rate 18 /min Alta Sharmaine Other [facility] Other 03-11-2023 09:20-0500 SaO2% (BldA) [Mass fraction] 95 % Alta Sharmaine Other [facility] Other 03-11-2023 09:20-0500 Systolic blood pressure 139 mm[Hg] Alta Sharmaine Other [facility] Other 12-08-2022 08:41-0400 Body height 160.02 cm Shaikh Jeison [facility] Phone: [facility] [facility] DO Work Phone: 12-08-2022 08:41-0400 Body mass index (BMI) [Ratio] 32.95 kg/m2 Shaikh Jeison Work Phone: [facility] [facility] DO Work Phone: 12-08-2022 08:41-0400 Body surface area Derived from formula 1.88 m2 Shaikh Louisd Work Phone: [facility] [facility] DO Work Phone: 12-08-2022 08:41-0400 Body weight 84.37 kg Shaikh Jeison Work Phone: [facility] [facility] DO Work Phone: 12-08-2022 08:41-0400 Diastolic blood pressure 60 mm[Hg] Shaikh Brightwad Work Phone: [facility] [facility] DO Work Phone: 12-08-2022 08:41-0400 Heart rate 66 /min Shaikh Louisd Work Phone: [facility] [facility] DO Work Phone: 12-08-2022 08:41-0400 Systolic blood pressure 108 mm[Hg] Dial Fawwad Work Phone: [facility] [facility] DO Work Phone: 07-01-2021 13:12-0500 Diastolic blood pressure 88 mm[Hg] Dial Fawwad Work Phone: [facility] [facility] DO Work Phone: 07-01-2021 13:12-0500 Systolic blood pressure 138 mm[Hg] Dial Fawwad Work Phone: [facility] [facility] DO Work Phone: 07-01-2021 09:20-0500 Diastolic blood pressure 100 mm[Hg] Dial Fawwad Work Phone: [facility] [facility] DO Work Phone: 07-01-2021 09:20-0500 Systolic blood pressure 148 mm[Hg] Dial Fawwad Work Phone: [facility] [address] DO Work Phone: 07-01-2021 09:01-0500 Diastolic blood pressure 98 mm[Hg] Dial Fawwad Work Phone: [facility] [facility] DO Work Phone: 07-01-2021 09:01-0500 Systolic blood pressure 168 mm[Hg] Dial Fawwad Work Phone: [facility] [facility] DO Work Phone: 07-01-2021 08:51-0500 Body height 160.02 cm Dial Fawwad Work Phone: [facility] 250 DO Work Phone: 07-01-2021 08:51-0500 Body mass index (BMI) [Ratio] 33.83 kg/m2 Shaikh Brightwad Work Phone: [facility] 250 DO Work Phone: 07-01-2021 08:51-0500 Body surface area Derived from formula 1.9 m2 Shaikh Louisd Work Phone: [facility] 250 DO Work Phone: 07-01-2021 08:51-0500 Body weight 86.64 kg Shaikh Louisd Work Phone: [facility] 250 DO Work Phone: 07-01-2021 08:51-0500 Diastolic blood pressure 104 mm[Hg] Shaikh Brightwad Work Phone: [facility] [facility] DO Work Phone: 07-01-2021 08:51-0500 Heart rate 87 /min Shaikh Louisd Work Phone: [facility] [facility] DO Work Phone: 07-01-2021 08:51-0500 Systolic blood pressure 169 mm[Hg] Shaikh Brightwad Work Phone: [facility] [facility] DO Work Phone: 07-01-2021 08:51-0500 6 1 Shaikh Brightwad Work Phone: [facility] [facility] DO Work Phone: Comment on above: PHQ-9 TS 05-24-2021 10:00-0500 Body height 162.56 cm Juan Gonzalez Other [facility] Other 05-24-2021 10:00-0500 Body mass index (BMI) [Ratio] 32.44 kg/m2 Juan Gonzalez Other [facility] Other 05-24-2021 10:00-0500 Body weight 85.73 kg Juan Gonzalez Other [facility] Other 05-20-2021 10:45-0500 60 1 Shaikh Yaimawwad Work Phone: [facility] [facility] [place] Work Phone: Comment on above: [id number] 05-13-2021 11:59-0500 Diastolic blood pressure 104 mm[Hg] Dial Yaimawwad Work Phone: [facility] DO Work Phone: 05-13-2021 11:59-0500 Systolic blood pressure 162 mm[Hg] Shaikh Yaimawwad Work Phone: [facility] 250 DO Work Phone: 05-13-2021 11:13-0500 Diastolic blood pressure 100 mm[Hg] Dial Fawwad Work Phone: [facility] DO Work Phone: 05-13-2021 11:13-0500 Systolic blood pressure 170 mm[Hg] Dial Yaimawwad Work Phone: [facility] [facility] DO Work Phone: 05-13-2021 11:12-0500 Body height 160.02 cm Dial Fawwad Work Phone: [facility] [facility] DO Work Phone: 05-13-2021 11:12-0500 Body mass index (BMI) [Ratio] 34.9 kg/m2 Dial Fawwad Work Phone: [facility] [facility] DO Work Phone: 05-13-2021 11:12-0500 Body surface area Derived from formula 1.92 m2 Shaikh Brightwad Work Phone: [facility] [facility] DO Work Phone: 05-13-2021 11:12-0500 Body weight 89.36 kg Shaikh Brightwad Work Phone: [facility] [facility] DO Work Phone: 05-13-2021 11:12-0500 Diastolic blood pressure 102 mm[Hg] Shaikh Brightwad Work Phone: [facility] [facility] DO Work Phone: 05-13-2021 11:12-0500 Heart rate 88 /min Shaikh Brightwad Work Phone: [facility] [facility] DO Work Phone: 05-13-2021 11:12-0500 Systolic blood pressure 172 mm[Hg] Shaikh Brightwad Work Phone: [facility] 250 DO Work Phone: 05-13-2021 11:07-0500 Body height 160.02 cm Shaikh Brightwad Work Phone: [facility] [facility] DO Work Phone: 05-13-2021 11:07-0500 Body mass index (BMI) [Ratio] 34.9 kg/m2 Shaikh Brightwad Work Phone: [facility] [facility] DO Work Phone: 05-13-2021 11:07-0500 Body surface area Derived from formula 1.92 m2 Shaikh Brightwad Work Phone: [facility] DO Work Phone: 05-13-2021 11:07-0500 Body weight 89.36 kg Shaikh Jeison Work Phone: [facility] [employer] 250 DO Work Phone: 05-13-2021 11:07-0500 Heart rate 88 /min Shaikh Jeison Work Phone: [facility] [employer] [facility] DO Work Phone: 04-09-2021 11:40-0500 Body height 162.56 cm Juan Carlos Other [facility] Other 04-09-2021 11:40-0500 Body mass index (BMI) [Ratio] 32.44 kg/m2 Juan Gonzalez Other [facility] Other 04-09-2021 11:40-0500 Body weight 85.73 kg Juan Gonzalez Other [facility] Other 04-09-2021 11:40-0500 Diastolic blood pressure 72 mm[Hg] Juan Gonzalez Other [facility] Other 04-09-2021 11:40-0500 Systolic blood pressure 124 mm[Hg] Juan Carlos Other [facility] Other Encounters Encounter Date Encounter Type Care Provider Facility Start: 08-05-2023 ambulatory [facility] Facility:[facility] Start: 08-05-2023 End: 08-05-2023 ambulatory MD Shaikh Mchugh Work Phone: [facility] Work Phone: Start: 08-05-2023 End: 08-05-2023 Patient encounter procedure MD Shaikh Mchugh Work Phone: [facility] Work Phone: Start: 08-05-2023 Registered Recurring MD Shaikh Mchugh Work Phone: [facility] Work Phone: Start: 07-13-2023 End: 07-13-2023 ambulatory SHAIKH JEISON Not Available Start: 07-10-2023 End: 07-10-2023 ambulatory EZRA VILLA V Not Available Start: 07-03-2023 End: 07-03-2023 ambulatory EZRA VILLA V Not Available Start: 06-24-2023 End: 06-24-2023 ambulatory MD Shaikh Mchugh Work Phone: [facility] Work Phone: Start: 06-24-2023 End: 06-24-2023 Patient encounter procedure MD Sha[facility]ugh [facility] Work Phone: Start: 06-24-2023 Registered Recurring MD [facility] Work [facility]: Start: 06-01-2023 End: 06-02-2023 ambulatory Radha Dunaway MD Facility:[facility] Start: 05-11-2023 End: 05-12-2023 ambulatory Radha Dunaway MD Facility:[facility] Start: 04-13-2023 Telephone encounter Neena Kamara [facility] Start: 04-13-2023 End: 04-13-2023 ambulatory SHAIKH JEISON [facility] [employer] Other Start: 04-06-2023 End: 04-07-2023 ambulatory Radha Dunaway MD Facility:[facility] Start: 03-24-2023 End: 03-24-2023 ambulatory MD Shaikh Mchugh Work Phone: [facility] Work Phone: Start: 03-24-2023 End: 03-24-2023 Registered Recurring MD Shaikh Mchugh Work Phone: [facility] Work Phone: Start: 03-11-2023 End: 03-11-2023 ambulatory Alta Sharmaine Other [facility] [employer] Other Start: 03-11-2023 Office outpatient vi sit 25 minutes Alta Sharmaine [facility] Start: 03-04-2023 End: 03-04-2023 ambulatory Alta Sharmaine Facility:[facility] Start: 03-04-2023 End: 03-04-2023 ambulatory MD Shaikh Mchugh Work Phone: [facility] Work Phone: Start: 03-04-2023 End: 03-04-2023 Patient encounter procedure MD Shaikh Mchugh Work Phone: [facility] [place] Work Phone: Start: 12-08-2022 Office outpatient vi sit 15 minutes Shaikh Jeison Work Phone: [facility] [facility] DO Work Phone: Start: 12-08-2022 Patient encounter procedure Shaikh Jeison Work Phone: [facility] [facility] DO Work Phone: Start: 12-08-[address] Shashi Cottrell II Facility: Start: 11-10-2022 End: 11-11-2022 ambulatory Radha Dunaway MD Facility:[facility] Start: 10-16-2022 ambulatory SHAIKH Gurjit Wilson y:H1 Start: 09-18-2022 End: 09-18-2022 ambulatory Alta Sharmaine Facility:[facility] Start: 07-17-2022 End: 07-18-2022 ambulatory SHAIKH Gurjit HERNADEZD Facility:H1 Start: 06-29-2022 Rx Renewal Shaikh Brightwad Work Phone: [facility] 250 DO Work Phone: Start: 06-28-2022 End: 06-29-2022 ambulatory SHAIKH Gurjit HERNADEZD Facility:H1 Start: 06-12-[address] ELIGIO HODGE . Faci lity:H1 Start: 05-27-2022 End: 05-27-[address] ELIGIO HODGE . Facility:H1 Start: 05-13-2022 End: 05-13-[address] ELIGIO HODGE . Facility:[facility]1 Start: 04-10-2022 End: 04-11-[address] ELIGIO HODGE . Facility:[facility]1 Start: 02-17-2022 End: 02-18-2022 ambulatory DIAL H JEISON Facility:H1 Start: 01-10-[address] Shashi Cottrell II Facility: Start: 01-09-2022 End: 01-10-2022 ambulatory SHAIKH Gurjit MCHUGH Facility:[facility]1 Start: 11-28-2021 End: 11-29-2021 ambulatory SHAIKH Gurjit HERNADEZD Facility:[facility]1 Start: 10-17-2021 End: 10-18-2021 ambulatory EVA LADDIS . Facility: Start: 07-01-2021 AUDIT Shaikh Louisd Work Phone: [facility] 250 DO Work Phone: Start: 05-28-2021 FUV, Provider: Shashi Cottrell, Status: Pen, Time: 10:50 AM Shaikh Brightwad Work Phone: [facility] 250 DO Work Phone: Start: 05-26-2021 Chart Update Shaikh Brightwad Work Phone: [facility] [facility] DO Work Phone: Start: 05-24-2021 End: 05-24-2021 ambulatory Juan Gonzalez Other [employer] Other Start: 05-24-2021 Office outpatient vi sit 15 minutes Juan Gonzalez [facility] Neurosurgery Start: 05-20-2021 Patient encounter procedure Shaikh Jeison Work Phone: [facility] [place] Work Phone: Start: 05-13-2021 Office consultation new/estab patient 60 min Shaikh Jeison Work Phone: [facility] DO Work Phone: Start: 04-09-2021 End: 04-09-2021 ambulatory Juan Gonzalez Other [employer] Other Start: 04-09-2021 Office outpatient ne w 45 minutes Juan Gonzalez [facility] Neurosurgery Procedures Date Procedure Procedure Detail Performing Clinician Start: 07-03-2023 Screening mammograph y of bilateral breasts MD Shaikh Mchugh Work Phone: Start: 03-04-2023 Urine culture MD Shaikh Mchugh Work Phone: Start: 05-20-2021 Echocardiography Shaikh Jeison Work Phone: Cardiac catheterization Wayne Mchugh Work Phone: Cholecystectomy Shaikh Louis johnson Work Phone: Dilation and curettage Shaik gurjit Mchugh Work Phone: Total colonoscopy Shaikh Bright [place] Work Phone: Plan of Treatment Date Care Activity Detail Author Start: 06-24-2023 Patient referral [facility] Work Phone: Start: 03-04-2023 Bacteria identified in Urine by Culture [facility] Start: 12-12-2022 FUV, Provider: Shashi Cottrell, Status: Pen, Time: 3:20 PM FUV, Provider: Shashi Cottrell, Status: Pen, Time: 3:20 PM -[facility] [facility] DO Work Phone: Start: 01-10-2022 FUV, Provider: Shashi Cottrell, Status: Pen, Time: 2:00 PM FUV, Provider: Shashi Cottrell, Status: Pen, Time: 2:00 PM -[facility] [facility] DO Work Phone: Start: 07-01-2021 FUV, Provider: Shashi Cottrell, Status: Pen, Time: 8:40 AM FUV, Provider: Shashi Cottrell, Status: Pen, Time: 8:40 AM -[facility] [facility] [place] Work Phone: Start: 05-28-2021 FUV, Provider: Shashi Cottrell, Status: Pen, Time: 10:50 AM FUV, Provider: Shashi Cottrell, Status: Pen, Time: 10:50 AM -[facility] [facility] DO Work Phone: Start: 05-20-2021 ECHO, Provider: JACEY HHVI ULTRASOUND 01,[id number], Status: Pen, Time: 10:45 AM ECHO, Provider: JACEY ALDRIDGEI ULTRASOUND 01,[id number], Status: Pen, Time: 10:45 AM [facility] DO Work Phone: MG Breast - bilatera l Screening [facility] Patient referral [facility] Work Phone: [facility] Immunizations Immunization Date Immunization Notes Care Provider Yaima saul 10-20-2020 pneumococcal polysaccharide vaccine, 23 valent Shaikh Jeison Work Phone: [facility] DO Work Phone: 08-23-2020 COVID-19 Vaccine Mod jasson - Documentation Purposes Only Juan Gonzalez Other [facility] 05-04-2020 pneumococcal conjuga te vaccine, 13 valent Shaikh Jeison Work Phone: [facility] [employer] DO Work Phone: Comment on above: Series: 02-03-2020 Influenza, injectabl e, Madin [place] Canine Kidney, preservative free, quadrivalent Shaikh Jeison Work Phone: [facility] Work Phone: 02-09-2019 Vaxneuvance 0.5 ML Intramuscular Suspension Prefilled Syringe Shaikh Jeison Work Phone: [facility] [employer] DO Work Phone: 04-05-2017 influenza, injectabl e, quadrivalent, preservative free Shaikh Jeison [facility] Work Phone: Payers Date Payer Category Payer Self-pay [id number] 2022 Medicaid [id number] 2022 Private Health Insurance 1959 Medicare [id number]. [id number] 1955 Unknown [id number] 2.16.84 0.1.223239.3.579.2.593 1955 Unknown [id number] 2.16.84 0.1.763073.3.579.2.593 1955 Unknown [id number] 2.16.84 0.1.687827.3.579.2.593 1955 Unknown [id number] 2.16.84 0.1.263012.3.579.2.593 1955 Unknown [id number] 2.16.84 0.1.209352.3.579.2.593 1955 Unknown [id number] 2.16.84 0.1.516905.3.579.2.593 1955 Unknown [id number] 2.16.84 0.1.447953.3.579.2.593 1955 Unknown [id number] 2.16.84 0.1.410683.3.579.2.593 1955 Unknown [id number] 2.16.84 0.1.962860.3.579.2.593 1955 Unknown [id number] 2.16.84 0.1.681941.3.579.2.593 1955 Unknown [id number] 2.16.84 0.1.543189.3.579.2.593 1955 Unknown [id number] 2.16.84 0.1.524464.3.579.2.593 1955 Unknown [id number] 2.16. 840.1.503926.3.579.2.356 1955 Unknown [id number] 2.16. 840.1.520139.3.579.2.356 1955 Unknown [id number] 2.16. 840.1.336732.3.579.2.196 1955 Unknown [id number] 2.16 840.1.782207.3.579.2.196 1955 Unknown [id number] 2.16. 840.1.441118.3.579.2.196 1955 Unknown [id number] 2.16. 840.1.461476.3.579.2.196 1955 Unknown [id number] 2.16.84 0.1.302854.3.579.2.1259 1955 Unknown [id number] 2.16.84 0.1.143625.3.579.2.1259 1955 Unknown [id number] 2.16.84 0.1.212430.3.579.2.1259 1955 Unknown [id number] 2.16.840 .1.563048.3.579.2.1259 Medicare [id number] 2.1 6.840.1.186573.19 Unknown Unknown [id number] 2.16.8 40.1.498636.3.579.2.531 Unknown [id number] 2.16.8 40.1.415051.3.579.2.531 Unknown [id number] 2.16.8 40.1.051217.3.579.2.531 Social History Date Type Detail Facility Daily caffeine consumption Daily caffeine consumption [facility] [employer] 250 DO Work Phone: Comment on above: 2-3 cups of coffee d aily.; 1/2 pack daily.; Sex Assigned At Sex Assigned At [facility] [employer] Other Start: 01-24-2021 End: 08-05-2023 Tobacco smoking status TNIS Smoker (finding) [facility] Start: 1955 Sex Assigned At Female F [facility] Functional Status Date Assessment Result Facility 07-01-2021 PHQ-9 [id number] Mild (5-9) [facility] [employer] 250 DO Work Phone: Clinical Notes 12-03-2019 [...] I have prescribed oral magnesium once daily. [employer] Other 03-16-2023 NotePAIN MANAGEMENT CONSULTATION CONSULTATION DATE: [...] in three months' time unless otherwise indicated.[id number] NoteCONSULTATION CONSULTATION DATE: 04/10/2022 HISTORY OF PRESENT [...] weeks ago, and she completed those in [place]. She is continuing her home exercises as [...] thereafter. Patient does agree with this plan.[facility] [id number] NoteCONSULTATION CONSULTATION DATE: 01/09/2022 HISTORY OF PRESENT [...] weeks. Patient prefers to do this in [place]. She will be followed up in the office in three months' time and was encouraged to take a multivitamin daily. Patient agrees with this plan of care. [facility] [id number] NoteCONSULTATION CONSULTATION DATE: 10/17/2021 HISTORY OF PRESENT [...] in three months' time unless otherwise indicated. [facility] Signed and Approved by: EVA ROSEN . 10/30/2021 16:23:00[facility]06-16-2022 NoteCONSULTATION PROCEDURE DATE:10/17/2021 PREOPERATIVE DIAGNOSIS: [...] will be followed up in the office. [facility] Signed and Approved by: EVA ROSEN . 10/30/2021 16:23:00[facility]01-21-2022 Evaluation note* Encounter Date Diagnosis [...] at this point no intervention is needed. [facility] Other 12-07-2021 Evaluation note* Encounter Date Diagnosis [...] - M50.123) Apr, Cardiomegaly (ICD-10 - I51.7) [facility] Other 01-15-2021 History of Present illness Narrative* [...] she will follow-up after testing is completed [facility] Work Phone: 1(959) 960-752801-10-2021 History of Present illness Narrative* Patient is [...] she will follow-up after testing is completed [facility] 250 DO Work Phone: 1(486) 200-597008-01-2020 History general Narrative - Reported* Type Description Date Medical History TYPE II DIABETES Medical History HYPERTENSION Medical History ENLARGE HEART Surgical History CHOLECYSTECTOMY Hospitalization History PNEUMONIA 12/2019 [facility] Other chief complaint Narrative - ReportedLINDA FRED is being seen for a consultation for cardiomegaly.[facility] 250 DO Work Phone: Chief complaint Narrative - ReportedLINDA FRED is being seen for a consultation for cardiomegaly.[facility] Work Phone: Consult note Author Yakelin Staley [facility] March 25, 2023 10:10am Note Date/Time March 24, 2023 1:49pm [facility] at [address] [address] Hem/Onc Consult Note - OP Signed Patient: Vidhya Ibarra MR#: [id number] : 1955 Acct:[id number] Age/Sex: 67 / F Type: REG RCR [...] any worse than it does when touched. [facility] - Medical History Medical History: Medical [...] for coordination of care (as documented) and [id number] counseling of patient and/or family. Dictated By: Yakelin Staley APRN DD/ [id number] Signed By: <Electronically signed by JOSE Staley> 03/25/[address] [facility] Work Phone: Evaluation noteNo assessment information available [facility] Work Phone: Evaluation noteNo InformationN[employer] Other Evaluation note* Diagnosis Onset Date Resolution Status Leukocytosis acute Breast nodule acute Leukocytosis acute Recurrent boils acute Yeast infection acute [facility] Work Phone: Evaluation note* Diagnosis Onset Date Resolution Status Breast nodule acute Leukocytosis acute Recurrent boils acute Yeast infection acute Leukocytosis acute Breast nodule acute Leukocytosis acute Recurrent boils acute Yeast infection acute [facility] Work Phone: History of Present illness [...] weight loss and more importantly smoking cessation. [facility] DO Work Phone: Hospital Discharge instructionsAmbulatory Orders* Referral to General Surgery Time Frame: 06/24/23, Location: None Selected [facility] Work Phone: Progress note Author Rebeca Ashraf [facility] June 24, 2023 10:45am Note Date/Time June 24, 2023 10:07am [facility] [place] [address] Cancer Center Note Signed Patient: Vidhya Ibarra MR#: [id number] : 1955 Acct:[id number] Age/Sex: 67 / F Type: REG AMB [...] % (Auto) 74.3 Lymph % (Auto) 18.0 Rich % (Auto) 5.2 Eos % (Auto) 1.7 Baso % (Auto) 0.8 Nucleat RBC Rel Count 0.1 Neut # (Auto) 10.6 H Lymph # (Auto) 2.6 Rich # (Auto) 0.7 Eos # (Auto) 0.2 [...] <Electronically signed by Rebeca Ashraf MD> 06/24/23 1040 [facility] Work Phone: Summary Purpose Family History [...] November 23 11:44am Reason for Referral Reason * 04/23 Evaluate and Treat Diagnosis 1 Cardiomegaly (I51.7) Referral Organization [facility] Referring Provider First Name Juan Referring Provider Last Name Carlos Referring Provider Specialty Neurologica l Surgery Referred Organization [facility] enter Referred Provider Jason Johnson Referred Address [address] [facility] [address] [place] [id number] Referred Provider Specialty Cardiac Surg nicholas Referral Priority Routine [facility] 08[facility]49:37 AM >Received today and waiting for office [facility] 04/16/2021 03:27:00 PM >[facility] office request us to fax the referral to them and they will review and call patient to schedule their appointment. Referral was fax Reason Evaluate and Treat Diagnosis 1 Cervical disc disord er at C5-C6 level with radiculopathy (M50.122) Referral Organization [facility] Referring Provider First Name [...] Breast nodule Leukocytosis Recurrent boils Yeast infection Chief Complaint 3 month follow up Le ukocytosis Leukocytosis Follow Up Reason for Visit Breast nodule Leukocytosis Recurrent boils Yeast infection Leukocytosis Breast nodule Leukocytosis Recurrent boils Yeast infection Additional Source Comments INFORMATION SOURCE (unrecogn ized section and content) DATE CREATED AUTHOR 12/03/2019 [facility] DATE CREATED AUTHOR AUTHOR'S ORGANIZ ATION 05/26/2021 [facility] DATE CREATED AUTHOR AUTHOR'S ORGANIZ ATION 10/10/2022 [facility] DATE CREATED AUTHOR AUTHOR'S ORGANIZ ATION 12/08/2022 [facility] DATE CREATED AUTHOR AUTHOR'S ORGANIZ ATION 12/09/2022 [employer] DATE CREATED AUTHOR AUTHOR'S ORGANIZ ATION 07/08/2023 [facility] DATE CREATED AUTHOR AUTHOR'S ORGANIZ ATION 07/14/2023 [facility] EPIC DATE CREATED AUTHOR AUTHOR'S ORGANIZ ATION 08/06/2023 [facility] REASON FOR VISIT (unrecogniz ed [...] 2023 End: June 24, 2023 Team Status: Active Member Role Status Dates Shaikh Jeison MD Primary Care Provider Active Start: August 05, 2023 Yakelin Staley APRN Active Start: August 05, 2023 Alta Schmid MD Referring Provider Active Start : August 05, 2023 Rebeca Ashraf MD Attending Provider Active Start: August 05, 2023 Team Status: Inactive Member Role Status Dates Shaikh Jeison MD Primary Care Provider Active Start: August 05, 2023 End: August 05, 2023 Rebeca Ashraf MD Attending Provider Active Start: August 05, 2023 End: August 05, 2023 Team Status: Active Member Role Status Dates [...] BE BASED ON THE PRIMARY CLINICAL RECORDS. [facility] [employer] provides no warranty or guarantee of the accuracy or completeness of information in this document.
[2023-09-07 08:16] LABS: Glucometer 301 mg/dL (74-106)
== END 2023-09-07 08:10 | disposition home or self-care (01) ==
PROVIDERS: PCP Internal Medicine; Visit Provider Anesthesiology
PROC: (CPT 64483; principal; 2023-09-07 09:00)
DX: Z53.8 Procedure and treatment not carried out for other reasons (principal); Z79.4 Long term (current) use of insulin
CPT/HCPCS: 64483; 36415; 82948

== ENCOUNTER 2023-09-21 07:34 | Day surgery (SDC) | payer MEDICARE, SELFPAY ==
[2023-09-21 07:55] LABS: Glucometer 269 mg/dL (74-106)
[2023-09-21 08:12] VITALS: BP 145/95; PULSE 65; TEMP 36.5; O2SAT 97
[2023-09-21] MEDS: 0.9 % SODIUM CHLORIDE 10 ML SYRINGE - SALINE FLUSH INJ (08:47)
[2023-09-21] MEDS: IOHEXOL 240 MG/ML - 10 ML VIAL INJ (08:47)
[2023-09-21] MEDS: LIDOCAINE HCL 2% PF 100 MG/5 ML VIAL INJ (08:48)
[2023-09-21] MEDS: TRIAMCINOLONE ACETONIDE 40 MG/ML VIAL INJ (08:48)
[2023-09-21] MEDS: BUPIVACAINE HCL 0.25% PF 25 MG/10 ML VIAL INJ (08:48)
[2023-09-21 08:51] VITALS: BP 139/65; BP 149/72; PULSE 65; PULSE 68; O2SAT 93
--- NOTE | 2023-09-21 08:51 | P.ON_ITS ---
Date of procedure: 09/21/23 Pre-op diagnosis: Lumbar stenosis with neurogenic claudication Post-op diagnosis: same as pre-op Procedure: Procedure: Left L4-5, L5-S1 transforaminal epidural steroid injection Medications: Bupivacaine 0.25% 2cc, lidocaine 2% 1cc, kenalog 80mg The patient was seen and examined in the preoperative holding area.? Informed consent was obtained and placed on the chart.? Patient was brought to the medical procedure unit and placed in the prone position where a timeout was completed verifying the correct patient, procedure site, position, and planned special equipment using sterile aseptic technique.? Under direct fluoroscopic visualization a 25-gauge Quincke tipped spinal needle was advanced to the designated neural foramen where contrast dye was injected to show adequate spread.? The needle was inserted at level left L4-5. There was no evidence of vascular or adverse uptake.? Epidural spread was appreciated.? The above- mentioned injectate was then placed in a 1.5 mL aliquot preceded by negative aspiration.? The needle was removed. The needle was inserted and the procedure repeated at level left L5-S1.? The surgery site was covered.? Patient was taken to the postprocedural recovery area and monitored for an appropriate length of time before found suitable for discharge in the accompaniment of a responsible adult. Anesthesia: Local Surgeon: Radha Dunaway Pathology: none sent Condition: stable Disposition: no change
== END 2023-09-21 08:55 | disposition home or self-care (01) ==
PROVIDERS: PCP Internal Medicine; Visit Provider Anesthesiology
DX: M48.062 Spinal stenosis, lumbar region with neurogenic claudication (principal)
CPT/HCPCS: 36415; 64483; 64484; Q9966

== ENCOUNTER 2023-10-05 07:28 | Day surgery (SDC) | payer MEDICARE, SELFPAY ==
--- OUTSIDE RECORDS SUMMARY | 2023-10-05 07:33 | XMS_ITS | CCD ---
Author Organization [facility] Care Team Providers Care Armorer Technician Name Role Phone BrightjusticealexShaikh Unavailable Unavailable Unavailable Juan Gonzalez Unavailable Unavailable Unavailable NAVEEN ., DR ELIGIO Burns Admitting Unavailable HODGE ., DR ELIGIO Burns Consulting Unavailable HODGE ., DR ELIGIO Burns Attending Unavailable [facility] Primary Care Unavailable JUAN ANTONIO LOMELI Consulting Unavailable HODGE ., DR ELIGIO Burns Admitting Unavailable [facility], [facility] Primary Care Unavailable ROSEN ., EVA Consulting Unavailable HODGE ., DR ELIGIO Burns Attending Unavailable HODGE ., DR ELIGIO Burns Admitting Unavailable [facility] Primary Care Unavailable ROSEN ., EVA Consulting Unavailable HODGE ., DR ELIGIO Burns Attending Unavailable [facility], [facility] Primary Care Unavailable LAKSHMIPATHY ., NARENDRANATH Admitting Catrina vailable LAKSHMIPATHY ., NARENDSHIRAATH Attending Catrina vailable HODGE ., DR ELIGIO Burns Admitting Unavailable [facility], [facility] Primary Care Unavailable ROSEN ., EVA Consulting Unavailable HODGE ., DR ELIGIO Burns Attending Unavailable [facility], [facility] Primary Care Unavailable ROSEN ., EVA Consulting Unavailable HODGE ., DR ELIGIO Burns Attending Unavailable HODGE ., DR ELIGIO Burns Admitting Unavailable ROSEN ., EVA Consulting Unavailable HODGE ., DR ELIGIO Burns Admitting Unavailable NEENA MACK Primary Care Unavailable HODGE ., DR ELIGIO Burns Attending Unavailable [facility], [facility] Primary Care Unavailable [facility], [facility] H Consulting Unavailable FAWWAD, DIAL H [...] HODGE ., DR ELIGIO Burns Attending Unavailable [place], Dr. Shashi Salas Attending Unavailable [place], Dr. Shahsi Salas Referring Unavailable McGuinchepe II, Dr. Shashi Salas Attending Unavailable MD Misael Mchughikh Primary Care Provider [phone] MD Alta Schmid Attending Provider Alta Schmid Unavailable MD Misael Mchughikh Primary Care Provider [phone] MD Alta Schmid Attending Provider JOSE Staley Attending Provider MD Alta Schmid Referring Provider Neena Hi Unavailable MD Antolin Mchughh Primary Care Provider JOSE Staley Attending Provider MD Alta Schmid Referring Provider MD Yojana Mchugh Primary Care Provider MD Alta Schmid Referring Provider MD Rebeca Ashraf Attending Provider MD Alta Schmid Attending Provider ALVARO MCKAYT Attending Unavailable VILLA V, EZRA Attending Unavailable FAWWAD, DIAL Referring Unavailable FAWWAD, DIAL Attending Unavailable FAWWAD, DIAL Attending Unavailable FAWWAD, DIAL Attending Unavailable Sharmaine, Alta Attending Unavailable Sharmaine, Alta Admitting Unavailable Fawwad, Dial Primary Care Unavailable Sharmaine, Alta Attending Unavailable Sharmaine, Alta Admitting Unavailable Fawwad, Dial Primary Care Unavailable Sharmaine, Alta Referring Unavailable Fawwad, Dial Primary Care Unavailable Al-Marrawi, Rebeca Altamirano Attending Unavailabl e Al-Marraochoa, Rebeca Arroyoser Admitting Unavailabl e Giedraitis , Andrius Hawkins Attending Unavailable Giedraitis , Andrius Ross Attending Unavailable Giedraitis , Andrius Vytdorina Attending Unavailable Giedraitis MD, Andrius Vytautas Attending Unavailable Giedraitis , Andrius Vytautas Attending Unavailable Allergies Allergy Classification Reported Allergen(s) Allergy Type Date of Onset Reaction(s) Facility (14 sources) predniSONE; Translations: [predniSONE] Drug Allergy 1 Hives, Unknown [facility] (2 sources) predniSONE Drug Allergy 5 [facility] (1 source) predniSONE Drug Allergy 4 [facility] Medications Current Medications Medication Drug Class(es) Dates Sig (Normalized) Sig (Original) acetaminophen 325 mg / oxyCODONE hydrochloride 5 mg oral tablet (20 sources) Opioid Agonist Start: 01-24-2021 End: 03-23-2023 [...] DO Active atorvastatin 40 mg oral tablet (6 sources) HMG-CoA Reductase Inhibitor Start: 03-23-2023 take 40 mg by mouth once daily Atorvastatin Active 40 MG PO Daily March 23, 2023 1:00am bumetanide 0.5 mg oral tablet (20 sources) Loop Diuretic Start: 01-24-2021 End: 03-23-2023 take 0.5 mg by mouth once daily Bumetanide Active 0.5 MG PO Daily March 23, 2023 1:00am take 1 tablet by rafat th every twenty-four hours Bumetanide 0.5 MG 1 TAB BY MOUTH Orally every 24 hrs Active doxycycline hyclate 100 mg oral tablet (3 sources) Tetracycline-class Drug Start: 06-24-2023 take 2 tablets by mouth once daily Doxycycline Hyclate Active 100 MG PO Twice daily June 24, 2023 1:00am take 2 tablets daily for 14 days gabapentin 600 mg oral tablet (20 sources) Anti-epileptic Agent Start: 03-23-2023 take 600 mg by mouth three times daily Gabapentin Active 600 MG PO Three times daily March 23, 2023 1:00am Start: 01-24-2021 End: 03-23-2023 take 400 mg by mouth three times daily Gabapentin Discontinued 400 MG PO Three times daily January 24, 2021 12:00am March 23, 2023 3:48pm glipiZIDE 10 mg oral tablet (20 sources) Sulfonylurea Start: 03-23-2023 take 10 mg [...] / losartan potassium 100 mg oral tablet (6 sources) Thiazide Diuretic, Angiotensin 2 Receptor Niko Start : 03-23 take 1 tablet by mouth once daily Losartan-Hydrochlorothia zide Active 1 TAB PO Daily March 23, 2023 1:00am 3 ml insulin isophane, human 100 unt/ml pen injector (2 sources) NovoLIN N FlexPe n 100 UNIT/ML as directed Subcutaneous 20 UNITS TWICE A DAY Active Insulin Nph And Regular Human (4 sources) Insulin Start : 03-24 Insulin Nph [...] Active metoprolol tartrate 50 mg oral tablet (20 sources) beta-Adrenergic Niko Start: 03-23-2023 take 50 mg by mouth twice daily Metoprolol Tartrate Active 50 MG PO Twice daily March 23, 2023 1:00am Start: 01-24-2021 End: 03-23-2023 take 50 mg by mouth three times daily Metoprolol Tartrate Discontinued 50 MG PO Three times daily January 24, 2021 12:00am March 23, 2023 3:48pm take 2 tablets by [facility] once daily Metoprolol Tartrate 50 MG Oral Tablet TAKE 2 TABLETS DAILY. Quantity: 0 Refills: 0 Ordered: 01-Jul-2021 DO Active take 1 tablet by rafat once daily Metoprolol Tartrate 50 MG Oral Tablet TAKE 1 TABLET EVERY 12 HOURS DAILY. Quantity: 0 Refills: 0 Ordered: 13-May-2021 DO Active nystatin 100 unt/mg topical powder (3 sources) Polyene Antifungal Start: 06-24-2023 Nystatin Ac tive 1 APPLIC TOPICAL Twice daily June 24, 2023 1:00am apply to dry skin under breasts 2 times daily PARoxetine hydrochloride 20 mg oral tablet (15 sources) Serotonin Reuptake Inhibitor Start: 03-23-2023 take 20 mg by mouth once daily Paroxetine Hcl Active 20 MG PO Daily March 23, 2023 1:00am Start: 01-24-2021 End: 03-23-2023 take 10 mg by mouth once daily Paroxetine Hcl Disconti nued 10 MG PO Daily January 24, 2021 12:00am March 23, 2023 3:48pm pramipexole dihydrochloride 0.5 mg oral tablet (6 sources) Nonergot Dopamine Agonist Start: 03-23-2023 take [...] Active traZODone hydrochloride 100 mg oral tablet (20 sources) Serotonin Reuptake Inhibitor Start: 03-23-2023 take [...] Sig (Original) allopurinol 300 mg oral tablet (15 sources) Xanthine Oxidase Inhibitor Start: End: take 300 mg by mouth once daily Allopurinol Discontinued 300 MG PO Daily January 24, 2021 12:00am March 23, 2023 3:48pm amLODIPine 2.5 mg oral tablet (5 sources) Dihydropyridine Calcium Channel Niko Start: 1 [...] DO Active cephalexin 500 mg oral capsule (3 sources) Cephalosporin Antibacterial Start: 3 End: 4 take 500 mg by mouth three times daily Cephalexin Discontinued 500 MG PO Three times daily 15 March 24, 2023 1:00am June 24, 2023 [...] DO Active lisinopril 2.5 mg oral tablet (7 sources) Angiotensin Converting Enzyme Inhibitor Start: 1 End: 3 take 2.5 mg by mouth once daily Lisinopril Discontinued 2.5 MG PO Daily January 24, 2021 12:00am March 23, 2023 3:48pm lovastatin 40 mg oral tablet (13 sources) HMG-CoA Reductase Inhibitor Start: 1 End: 3 take 40 mg by mouth once daily Lovastatin Discontinued 40 MG PO Daily January 24, 2021 12:00am March 23, 2023 3:48pm metFORMIN hydrochloride 500 mg oral tablet (13 sources) Biguanide Start: End: 3 take 500 mg by mouth twice daily Metformin Discontinued 500 MG PO Twice daily January 24, 2021 12:00am March 23, 2023 3:48pm metFORMIN HCl 10 00 MG [...] DO Active tiZANidine 4 mg oral tablet (13 sources) Central alpha-2 Adrenergic Agonist Start: 01-24-2021 [...] Onset: 3 Diseases of white blood cells (16 sources) Elevated white blood cell count, unspecified; [...] status; Translations: [Other specified vaccination] Episodic Mycoses (8 sources) Mycosis; Translations: [Candidiasis, unspecified] 06-24-2023 Episodic Nonmalignant breast conditions (9 sources) Other specified disorders of breast; Translations: [...] 3 Chronic Skin and subcutaneous tissue infections (8 sources) Furuncle; Translations: [Furuncle, unspecified] 06-24-2023 Episodic [...] 11-28-2021 Episodic Other aftercare (1 source) Other terminal superintendent (current) drug therapy; Translations: [OTH DETENTION CURRENT DRUG THERAPY] Onset: 12-04-2021 Episodic Other [...] dye binding methoOrdered By: Alta Schmid on 09-12-2023 Albumin BCG dye [Mass/Vol] 3.9 g/dL 3.5-5.7 [facility] Automated erythrocytes count in urine sediment (number/area)Ordered By: Alta Schmid on 09-12-2023 RBC Auto (Urine sed) [#/Area] None seen [HPF] 0-4 [facility] Automated leukocytes count i n urine sediment (number/area)Ordered By: Alta Schmid on 09-12-2023 WBC Auto (Urine sed) [#/Area] 0-1 [HPF] 0-4 [facility] Bilirubin Test strip Ql (U)O rdered By: Alta Schmid on 09-12-2023 Bilirubin Ql (U) Negative Negative [facility] Calcium [Mass/volume] in Ser um or PlasmaOrdered By: Alta Schmid on 09-12-2023 Calcium [Mass/Vol] 9.3 mg/dL 8.6-10.3 [facility] Carbon dioxide, total [Moles /volume] in Serum or PlasmaOrdered By: Alta Sharmaine on 09-12-2023 CO2 [Moles/Vol] 26.0 mmol/L 21.0-31.0 [facility] Chloride [Moles/volume] in S carlos or PlasmaOrdered By: Alta Sharmaine on 09-12-2023 Chloride [Moles/Vol] 101 mmol/L 98-107 [facility] Color Auto (U)Ordered By: Ab ramos Sharmaine on 09-12-2023 Color (U) Yellow Yellow [facility] Creatinine [Mass/volume] in Serum or PlasmaOrdered By: Alta Sharmaine on 09-12-2023 Creatinine [Mass/Vol] 1.41 mg/dL 0.60-1.20 [facility] Creatinine [Mass/volume] in UrineOrdered By: Alta Sharmaine on 09-12-2023 Creatinine (U) [Mass/Vol] 59.0 mg/dL [facility] Comment on above: No reference range e stablished Dipstick and Microscopicon 0 09-12-2023 Appearance (U) Clear Normal Clear [facility] Comment on above: Order Comment: Reaso n for Exam Chronic kidney disease, stage III (moderate);Diabetes mellit Performed By: #### C BCNO #### [facility] [address] [id number] [place] Bacteria,Urine None Seen Normal None Seen [facility] Comment on above: Order Comment: Reaso n for Exam Chronic kidney disease, stage III (moderate);Diabetes mellit Performed By: #### C BCNO #### [facility] [address] [place] [address] [place] Bilirubin,Urine Negative Normal Negative [facility] Comment on above: Order Comment: Reaso n for Exam Chronic kidney disease, stage III (moderate);Diabetes mellit Performed By: #### C BCNO #### [facility] [address] [place] [address] [place] Color (U) Yellow Normal Yellow [facility] Comment on above: Order Comment: Reaso n for Exam Chronic kidney disease, stage III (moderate);Diabetes mellit Performed By: #### C BCNO #### [address] Glucose Ql (U) 250 mg/dL High Normal [facility] Comment on above: Order Comment: Reaso n for Exam Chronic kidney disease, stage III (moderate);Diabetes mellit Performed By: #### C BCNO #### [address] Hyaline Casts,Urine None Seen Normal 0-8 [facility] Comment on above: Order Comment: Reaso n for Exam Chronic kidney disease, stage III (moderate);Diabetes mellit Result Comment: PERF ORMED BY: [place] [address] PATHOLOGIST SCREEN PRINTING PRESS OPERATOR SHANTE LOMBARDI M.D. Performed By: #### C BCNO #### [address] Ketones Ql (U) Negative Normal Negative [facility] Comment on above: Order Comment: Reaso n for Exam Chronic kidney disease, stage III (moderate);Diabetes mellit Performed By: #### C BCNO #### [address] Leukocyte esterase Test strip Ql (U) Negative Normal Negative [facility] Comment on above: Order Comment: Reaso n for Exam Chronic kidney disease, stage III (moderate);Diabetes mellit Performed By: #### C BCNO #### [address] Nitrite,Urine Negative Normal Negative [facility] Comment on above: Order Comment: Reaso n for Exam Chronic kidney disease, stage III (moderate);Diabetes mellit Performed By: #### C BCNO #### [address] Occult Blood,Urine Negative Normal Negative [facility] Comment on above: Order Comment: Reaso n for Exam Chronic kidney disease, stage III (moderate);Diabetes mellit Performed By: #### C BCNO #### [address] [place] [address] [place] pH (U) 5.5 [pH] Normal 5.0-9.0 [facility] Comment on above: Order Comment: Reaso n for Exam Chronic kidney disease, stage III (moderate);Diabetes mellit Performed By: #### C BCNO #### [address] Protein (U) [Mass/Vol] 30 mg/dL High Negative [facility] Comment on above: Order Comment: Reaso n for Exam Chronic kidney disease, stage III (moderate);Diabetes mellit Performed By: #### C BCNO #### [address] RBC,Urine None Seen Normal 0-4 [facility] Comment on above: Order Comment: Reaso n for Exam Chronic kidney disease, stage III (moderate);Diabetes mellit Performed By: #### C BCNO #### [address] Specificy [place],Urine 1.014 Normal 1.001-1.030 [facility] Comment on above: Order Comment: Reaso n for Exam Chronic kidney disease, stage III (moderate);Diabetes mellit Performed By: #### C BCNO #### [address] Squamous Epithelial Cell,Urine 1-2 Normal 0-2 [facility] Comment on above: Order Comment: Reaso n for Exam Chronic kidney disease, stage III (moderate);Diabetes mellit Performed By: #### C BCNO #### [address] Urobilinogen,Urine Normal Normal Normal [facility] Comment on above: Order Comment: Reaso n for Exam Chronic kidney disease, stage III (moderate);Diabetes mellit Performed By: #### C BCNO #### [address] WBC LM.HPF (Urine sed) [#/Area] 0 /[HPF] Normal 0-4 [facility] Comment on above: Order Comment: Reaso n for Exam Chronic kidney disease, stage III (moderate);Diabetes mellit Performed By: #### C BCNO #### [facility] [address] Erythrocyte distribution wid th Auto (RBC) [Ratio]Ordered By: Alta Schmid on 09-12-2023 Erythrocyte distribution width (RBC) [Ratio] 15.2 % 11.9-15.3 [facility] Glucose [Mass/volume] in Ser um or PlasmaOrdered By: Alta Schmid on 09-12-2023 Glucose [Mass/Vol] 333 mg/dL 70-100 [facility] Comment on above: ADA recommended refe rence rangeRandom Glucose Reference Range is dependent on time and content of last meal. Glucose of more than 200 mg/dL in a nonstressed, ambulatory subject supports the diagnosis of Diabetes Mellitus. Hematocrit Auto (Bld) [Volum e fraction]Ordered By: Alta Schmid on 09-12-2023 Hematocrit (Bld) [Volume fraction] 43.7 % 34.0-46.4 [facility] Hemoglobin [Mass/volume] in BloodOrdered By: Alta Schmid on 09-12-2023 Hemoglobin (Bld) [Mass/Vol] 15.0 g/dL 11.8-15.4 [facility] Hemogram CBC Without Diffon 09-12-2023 Erythrocyte distribution width (RBC) [Ratio] 15.2 % Normal 11.9-15.3 [facility] Comment on above: Performed By: #### C BCNO #### [facility] [address] Hematocrit (Bld) [Volume fraction] 43.7 % Normal 34.0-46.4 [facility] Comment on above: Performed By: #### C BCNO #### [facility] [address] Hemoglobin (Bld) [Mass/Vol] 15.0 g/dL Normal 11.8-15.4 [facility] Comment on above: Performed By: #### C BCNO #### [facility] [address] MCH (RBC) [Entitic mass] 30.3 pg Normal 24.7-34.3 [facility] Comment on above: Performed By: #### C BCNO #### [address] MCV (RBC) [Entitic vol] 88.2 fL Normal 80-100 [facility] Comment on above: Performed By: #### C BCNO #### [address] Mean Corpuscular HGB Conc 34.4 g/dL Normal 32.0-35.0 [facility] Comment on above: Performed By: #### C BCNO #### [address] Platelet mean volume (Bld) [Entitic vol] 8.7 fL Normal 6.3-10.7 [facility] Comment on above: Result Comment: PERF ORMED BY: [place] [address] PATHOLOGIST SCREEN PRINTING PRESS OPERATOR SHANTE LOMBARDI M.D. Performed By: #### C BCNO #### [address] Platelets (Bld) [#/Vol] 263 10*3/uL Normal 150-450 [facility] Comment on above: Performed By: #### C BCNO #### [address] RBC (Bld) [#/Vol] 4.96 10*6/uL Normal 3.60-5.00 [facility] Comment on above: Performed By: #### C BCNO #### [address] WBC (Bld) [#/Vol] 13.1 10*3/uL High 3.8-11.6 [facility] Comment on above: Performed By: #### C BCNO #### [address] Ketones Auto test strip (U) [Mass/Vol]Ordered By: Alta Schmid on 09-12-2023 Ketones (U) [Mass/Vol] Negative Negative [facility] - UrinalysisOrder ed By: Alta Schmid on 09-12-2023 Hyaline casts LM Ql (Urine sed) None seen [LPF] 0-8 [facility] Leukocytes [#/volume] correc janet for nucleated erythrocytes in Blood by Automated counOrdered By: Alta Schmid on 09-12-2023 WBC corrected for nucl RBC Auto (Bld) [#/Vol] 13.1 10*3/uL 3.8-11.6 [facility] MCH Auto (RBC) [Entitic mass ]Ordered By: Alta Schmid on 09-12-2023 MCH (RBC) [Entitic mass] 30.3 pg 24.7-34.3 [facility] MCHC Auto (RBC) [Mass/Vol]Or dered By: Alta Schmid on 09-12-2023 MCHC (RBC) [Mass/Vol] 34.4 g/dL 32.0-35.0 [facility] MCV Auto (RBC) [Entitic vol] Ordered By: Alta Schmid on 09-12-2023 MCV (RBC) [Entitic vol] 88.2 fL 80-100 [facility] Magnesiumon 09-12-2023 Magnesium [Mass/Vol] 1.4 mg/dL Low 1.9-2.7 [facility] Comment on above: Performed By: #### U HARINDER, RENAL, MG, [id number] #### [facility] [address] Magnesium [Mass/volume] in S carlos or PlasmaOrdered By: Alta Schmid on 09-12-2023 Magnesium [Mass/Vol] 1.4 mg/dL 1.9-2.7 [facility] Nitrite Test strip Ql (U)Ord ered By: Alta Schmid on 09-12-2023 Nitrite Ql (U) Negative Negative [facility] No Panel InformationOrdered By: Alta Schmid on 09-12-2023 Estimated GFR (CKD-EPI) 40.884 mL/Min [facility] Creatinine Clearance (Chem N/A [facility] Parathyrin.intact [Mass/volu me] in Serum or PlasmaOrdered By: Alta Schmid on 09-12-2023 Parathyrin.intact [Mass/Vol] 63.3 pg/mL [facility] Parathyroid Hormone Intacton 09-12-2023 Parathyroid Hormone Intact 63.3 pg/mL Normal [facility] Comment on above: Result Comment: PERF ORMED BY: [place] [address] PATHOLOGIST SCREEN PRINTING PRESS OPERATOR SHANTE LOMBARDI M.D. Performed By: #### U HARINDER, RENAL, MG, [id number] #### [address] Phosphate [Mass/volume] in S carlos or PlasmaOrdered By: Alta Schmid on 09-12-2023 Phosphate [Mass/Vol] 3.6 mg/dL 2.5-4.5 [facility] Platelet mean volume Auto (B ld) [Entitic vol]Ordered By: Alta Schmid on 09-12-2023 Platelet mean volume (Bld) [Entitic vol] 8.7 fL 6.3-10.7 [facility] Platelets Auto (Bld) [#/Vol] Ordered By: Alta Schmid on 09-12-2023 Platelets (Bld) [#/Vol] 263 10*3/uL 150-450 [facility] Potassium [Moles/volume] in Serum or PlasmaOrdered By: Alta Schmid on 09-12-2023 Potassium [Moles/Vol] 4.5 mmol/L 3.5-5.1 [facility] Protein Auto test strip (U) [Mass/Vol]Ordered By: Alta Schmid on 09-12-2023 Protein (U) [Mass/Vol] 30 mg/dL Negative [facility] Protein Creat Ratio Ur Rando mon 09-12-2023 Creatinine, Urine (Random) 59.0 mg/dL Normal [facility] Comment on above: Result Comment: No r eference range established Performed By: #### U HARINDER, RENAL, MG, [id number] #### [address] Protein (U) [Mass/Vol] 47 mg/dL High 0-9 [facility] Comment on above: Performed By: #### U HARINDER, RENAL, MG, [id number] #### [address] Urine Protein/Creatinine Ratio 797 mg/g{Cre} High 0-200 [facility] Comment on above: Result Comment: PERF ORMED BY: [place] [address] PATHOLOGIST SCREEN PRINTING PRESS OPERATOR SHANTE LOMBARDI M.D. Performed By: #### U HARINDER, RENAL, MG, [id number] #### [address] Protein [Mass/volume] in Uri neOrdered By: Alta Schmid on 09-12-2023 Protein (U) [Mass/Vol] 47 mg/dL 0-9 [facility] RBC Auto (Bld) [#/Vol]Ordere d By: Alta Sharmaine on 09-12-2023 RBC (Bld) [#/Vol] 4.96 10*6/uL 3.60-5.[address] [facility] Renal Function Panelon 09-11 Albumin [Mass/Vol] 3.9 g/dL Normal 3.5-5.7 [facility] Comment on above: Performed By: #### U HARINDER, RENAL, MG, [id number] #### [address] Anion gap [Moles/Vol] 12.5 mmol/L Normal 6.0-15.0 [facility] Comment on above: Performed By: #### U HARINDER, RENAL, MG, [id number] #### [address] Calcium [Mass/Vol] 9.3 mg/dL Normal 8.6-10.3 [facility] Comment on above: Performed By: #### U HARINDER, RENAL, MG, [id number] #### [facility] [address] Chloride [Moles/Vol] 101 mmol/L Normal 98-107 [facility] Comment on above: Performed By: #### U HARINDER, RENAL, MG, [id number] #### [facility] [address] CO2 [Moles/Vol] 26.0 mmol/L Normal 21.0-31.0 [facility] Comment on above: Performed By: #### U HARINDER, RENAL, MG, [id number] #### [facility] [address] Creatinine [Mass/Vol] 1.41 mg/dL High 0.60-1.20 [facility] Comment on above: Performed By: #### U HARINDER, RENAL, MG, [id number] #### [place] [address] [place] GFR/1.73 sq M.predicted MDRD (S/P/Bld) [Vol rate/Area] 40.884 mL/min/{1.73_m2} Normal [facility] Comment on above: Performed By: #### U HARINDER, RENAL, MG, [id number] #### [address] Glucose [Mass/Vol] 333 mg/dL High 70-100 [facility] Comment on above: Result Comment: [place] Glucose Reference Range is dependent on time and content of last meal. Glucose of more than 200 mg/dL in a nonstressed, ambulatory subject supports the diagnosis of Diabetes Mellitus. ADA recommended reference range Performed By: #### U HARINDER, RENAL, MG, [id number] #### [facility] [address] [place] [address] [place] Phosphate [Mass/Vol] 3.6 mg/dL Normal 2.5-4.5 [facility] Comment on above: Performed By: #### U HARINDER, RENAL, MG, [id number] #### [facility] [address] [place] [address] [place] Potassium [Moles/Vol] 4.5 mmol/L Normal 3.5-5.1 [facility] Comment on above: Performed By: #### U HARINDER, RENAL, MG, [id number] #### [facility] [address] Sodium [Moles/Vol] 135 mmol/L Low 136-145 [facility] Comment on above: Performed By: #### U HARINDER, RENAL, MG, [id number] #### [facility] [address] Urea nitrogen [Mass/Vol] 32 mg/dL High 7- [facility] Comment on above: Performed By: #### U HARINDER, RENAL, MG, [id number] #### [address] Serum or plasma anion gap de terminationOrdered By: Alta Sharmaine on 09-12-2023 Anion gap [Moles/Vol] 12.5 mmol/L 6.0-15.0 [facility] Sodium [Moles/volume] in Ser um or PlasmaOrdered By: Alta Sharmaine on 09-12-2023 Sodium [Moles/Vol] 135 mmol/L 136-145 [facility] Specific gravity Auto test s trip (U) [Rel density]Ordered By: Alta Sharmaine on 09-12-2023 Specific gravity (U) [Rel density] 1.014 1.001-1.030 [facility] Squamous epithelial cells de tection in urine sediment by light microscopyOrdered By: Alta Sharmaine on 09-12-2023 Epithelial cells.squamous LM Ql (Urine sed) 1-2 [HPF] 0-2 [facility] Urate [Mass/volume] in Serum or PlasmaOrdered By: Alta Sharmaine on 09-12-2023 Urate [Mass/Vol] 7.9 mg/dL 2.3-6.6 [facility] Urea nitrogen [Mass/volume] in Serum or PlasmaOrdered By: Alta Sharmaine on 09-12-2023 Urea nitrogen [Mass/Vol] 32 mg/dL 7- [facility] Uric Acidon 09-12-2023 Urate [Mass/Vol] 7.9 mg/dL High 2.3-6.6 [facility] Comment on above: Performed By: #### U HARINDER, RENAL, MG, [id number] #### [facility] [address] Urine bacteria detection by automated methodOrdered By: Alta Schmid on 09-12-2023 Bacteria Auto Ql (U) None seen [HPF] None Seen [facility] Urine clarity by refractomet ry automatedOrdered By: Alta Schmid on 09-12-2023 Clarity Refractometry automated (U) Clear Clear [facility] Urine glucose measurement by automated test strip (mass/volume)Ordered By: Alta Schmid on 09-12-2023 Glucose Auto test strip (U) [Mass/Vol] 250 mg/dL Normal [facility] Urine hemoglobin detection b y automated test stripOrdered By: Alta Schmid on 09-12-2023 Hemoglobin Auto test strip Ql (U) Negative Negative [facility] Urine leukocyte esterase det ection by automated test stripOrdered By: Alta Schmid on 09-12-2023 Leukocyte esterase Auto test strip Ql (U) Negative Negative [facility] Urine protein/creatinine rat ioOrdered By: Alta Schmid on 09-12-2023 Protein/Creatinine (U) [Ratio] 797 mg/g{Cre} 0-200 [facility] Urobilinogen Auto test strip (U) [Mass/Vol]Ordered By: Alta Schmid on 09-12-2023 Urobilinogen (U) [Mass/Vol] Normal mg/dL Normal [facility] Vitamin D 25 Hydroxy Totalon 09-12-2023 Vitamin D 25 Hydroxy Total 53.3 ng/mL Normal 30-100 [facility] Comment on above: Result Comment: DEBORAH MIN D STATUS 25(OH)VITAMIN D RANGE (ng/mL) Deficient <20 Insufficient 20 to <30 Sufficient 30 to 100 Reference: Raven MF,Isai CLARK, Randa WALSH, et al. Evaluation,treatment, and prevention of vitamin D deficiency; an Endocrine Society clinical practice guideline. JCEM. 2010; 96(7):1911-30. PERFORMED BY: [facility] [address] [place] [address] PATHOLOGIST SCREEN PRINTING PRESS OPERATOR SHANTE LOMBARDI M.D. Performed By: #### U HARINDER, RENAL, MG, [id number] #### [facility] [address] Vitamin D+Metabolites [Mass/ volume] in Serum or PlasmaOrdered By: Alta Schmid on 09-12-2023 Vitamin D+Metabolites [Mass/Vol] 53.3 ng/mL 30-100 [facility] Comment on above: VITAMIN D STATUS 25( [place])VITAMIN D RANGE (ng/mL) Deficient <20 Insufficient 20 to <30Sufficient 30 to 100Reference: Raven MF,Isai CLARK, Randa WALSH, et al. Evaluation,treatment, and prevention of vitamin D deficiency; an Endocrine Society clinical practice guideline. JCEM. 2010; 96(7):1911-30. pH Auto test strip (U)Ordere d By: Alta Schmid on 09-12-2023 pH (U) 5.5 [pH] 5.0-9.0 [facility] Albumin [Mass/volume] in Ser um or Plasma by Bromocresol green (BCG) dye binding methoOrdered By: Alta Schmid on 07-31-2023 Albumin BCG dye [Mass/Vol] 4.0 g/dL 3.5-5.7 [facility] Automated erythrocytes count in urine sediment (number/area)Ordered By: Alta Schmid on 07-31-2023 RBC Auto (Urine sed) [#/Area] None seen [HPF] 0-4 [facility] Automated leukocytes count i n urine sediment (number/area)Ordered By: Alta Schmid on 07-31-2023 WBC Auto (Urine sed) [#/Area] 0-1 [HPF] 0-4 [facility] Bilirubin Test strip Ql (U)O rdered By: Alta Schmid on 07-31-2023 Bilirubin Ql (U) Negative Negative [facility] Calcium [Mass/volume] in Ser um or PlasmaOrdered By: Alta Schmid on 07-31-2023 Calcium [Mass/Vol] 9.4 mg/dL 8.6-10.3 [facility] Carbon dioxide, total [Moles /volume] in Serum or PlasmaOrdered By: Alta Schmid on 07-31-2023 CO2 [Moles/Vol] 28.1 mmol/L 21.0-31.0 [facility] Chloride [Moles/volume] in S carlos or PlasmaOrdered By: Alta Schmid on 07-31-2023 Chloride [Moles/Vol] 103 mmol/L 98-107 [facility] Color Auto (U)Ordered By: Ab richard Schmid on 07-31-2023 Color (U) Yellow Yellow [facility] Creatinine [Mass/volume] in Serum or PlasmaOrdered By: Alta Schmid on 07-31-2023 Creatinine [Mass/Vol] 1.49 mg/dL 0.60-1.20 [facility] Creatinine [Mass/volume] in UrineOrdered By: Alta Schmid on 07-31-2023 Creatinine (U) [Mass/Vol] 64.0 mg/dL [facility] Comment on above: No reference range e stablished Dipstick and Microscopicon 0 07-31-2023 Appearance (U) Clear Normal Clear [facility] Comment on above: Order Comment: Reaso n for Exam Chronic kidney disease, stage III (moderate);Diabetes mellit Performed By: #### C BCNO #### [facility] [address] [place] [id number] [place] Bacteria,Urine None Seen Normal None Seen [facility] Comment on above: Order Comment: Reaso n for Exam Chronic kidney disease, stage III (moderate);Diabetes mellit Performed By: #### C BCNO #### [facility] [address] [place] [address] [place] Bilirubin,Urine Negative Normal Negative [facility] Comment on above: Order Comment: Reaso n for Exam Chronic kidney disease, stage III (moderate);Diabetes mellit Performed By: #### C BCNO #### [facility] [address] [place] [id number] [place] Color (U) Yellow Normal Yellow [facility] Comment on above: Order Comment: Reaso n for Exam Chronic kidney disease, stage III (moderate);Diabetes mellit Performed By: #### C BCNO #### [address] Glucose Ql (U) Normal Normal Normal [facility] Comment on above: Order Comment: Reaso n for Exam Chronic kidney disease, stage III (moderate);Diabetes mellit Performed By: #### C BCNO #### [address] Hyaline Casts,Urine 0-8 Normal 0-8 [facility] Comment on above: Order Comment: Reaso n for Exam Chronic kidney disease, stage III (moderate);Diabetes mellit Result Comment: PERF ORMED BY: [place] [address] PATHOLOGIST SCREEN PRINTING PRESS OPERATOR SHANTE LOMBARDI M.D. Performed By: #### C BCNO #### [address] Ketones Ql (U) Negative Normal Negative [facility] Comment on above: Order Comment: Reaso n for Exam Chronic kidney disease, stage III (moderate);Diabetes mellit Performed By: #### C BCNO #### [address] Leukocyte esterase Test strip Ql (U) Negative Normal Negative [facility] Comment on above: Order Comment: Reaso n for Exam Chronic kidney disease, stage III (moderate);Diabetes mellit Performed By: #### C BCNO #### [place] [address] [place] Nitrite,Urine Negative Normal Negative [facility] Comment on above: Order Comment: Reaso n for Exam Chronic kidney disease, stage III (moderate);Diabetes mellit Performed By: #### C BCNO #### [place] [id number] [place] Occult Blood,Urine Negative Normal Negative [facility] Comment on above: Order Comment: Reaso n for Exam Chronic kidney disease, stage III (moderate);Diabetes mellit Performed By: #### C BCNO #### [facility] [address] pH (U) 6.0 [pH] Normal 5.0-9.0 [facility] Comment on above: Order Comment: Reaso n for Exam Chronic kidney disease, stage III (moderate);Diabetes mellit Performed By: #### C BCNO #### [facility] [address] Protein,Urine Negative Normal Negative [facility] Comment on above: Order Comment: Reaso n for Exam Chronic kidney disease, stage III (moderate);Diabetes mellit Performed By: #### C BCNO #### [address] RBC,Urine None Seen Normal 0-4 [facility] Comment on above: Order Comment: Reaso n for Exam Chronic kidney disease, stage III (moderate);Diabetes mellit Performed By: #### C BCNO #### [address] Specificy [place],Urine 1.012 Normal 1.001-1.030 [facility] Comment on above: Order Comment: Reaso n for Exam Chronic kidney disease, stage III (moderate);Diabetes mellit Performed By: #### C BCNO #### [address] Squamous Epithelial Cell,Urine 0-1 Normal 0-2 [facility] Comment on above: Order Comment: Reaso n for Exam Chronic kidney disease, stage III (moderate);Diabetes mellit Performed By: #### C BCNO #### [address] Urobilinogen,Urine Normal Normal Normal [facility] Comment on above: Order Comment: Reaso n for Exam Chronic kidney disease, stage III (moderate);Diabetes mellit Performed By: #### C BCNO #### [address] WBC LM.HPF (Urine sed) [#/Area] 0 /[HPF] Normal 0-4 [facility] Comment on above: Order Comment: Reaso n for Exam Chronic kidney disease, stage III (moderate);Diabetes mellit Performed By: #### C BCNO #### [facility] [address] [place] [address] [place] Erythrocyte distribution wid th Auto (RBC) [Ratio]Ordered By: Alta Schmid on 07-31-2023 Erythrocyte distribution width (RBC) [Ratio] 15.4 % 11.9-15.3 [facility] Glucose [Mass/volume] in Ser um or PlasmaOrdered By: Alta Schmid on 07-31-2023 Glucose [Mass/Vol] 235 mg/dL 70-100 [facility] Comment on above: ADA recommended refe rence rangeRandom Glucose Reference Range is dependent on time and content of last meal. Glucose of more than 200 mg/dL in a nonstressed, ambulatory subject supports the diagnosis of Diabetes Mellitus. Hematocrit Auto (Bld) [Volum e fraction]Ordered By: Alta Schmid on 07-31-2023 Hematocrit (Bld) [Volume fraction] 42.7 % 34.0-46.4 [facility] Hemoglobin [Mass/volume] in BloodOrdered By: Alta Schmid on 07-31-2023 Hemoglobin (Bld) [Mass/Vol] 14.4 g/dL 11.8-15.4 [facility] Hemogram CBC Without Diffon 07-31-2023 Erythrocyte distribution width (RBC) [Ratio] 15.4 % High 11.9-15.3 [facility] Comment on above: Order Comment: Reaso n for Exam Chronic kidney disease, stage III (moderate);Diabetes mellit Performed By: #### C BCNO #### [facility] [address] [place] [id number] [facility] Hematocrit (Bld) [Volume fraction] 42.7 % Normal 34.0-46.4 [facility] Comment on above: Order Comment: Reaso n for Exam Chronic kidney disease, stage III (moderate);Diabetes mellit Performed By: #### C BCNO #### [facility] [address] [place] [id number] [facility] Hemoglobin (Bld) [Mass/Vol] 14.4 g/dL Normal 11.8-15.4 [facility] Comment on above: Order Comment: Reaso n for Exam Chronic kidney disease, stage III (moderate);Diabetes mellit Performed By: #### C BCNO #### [address] MCH (RBC) [Entitic mass] 29.9 pg Normal 24.7-34.3 [facility] Comment on above: Order Comment: Reaso n for Exam Chronic kidney disease, stage III (moderate);Diabetes mellit Performed By: #### C BCNO #### [address] MCV (RBC) [Entitic vol] 89.0 fL Normal 80-100 [facility] Comment on above: Order Comment: Reaso n for Exam Chronic kidney disease, stage III (moderate);Diabetes mellit Performed By: #### C BCNO #### [address] Mean Corpuscular HGB Conc 33.6 g/dL Normal 32.0-35.0 [facility] Comment on above: Order Comment: Reaso n for Exam Chronic kidney disease, stage III (moderate);Diabetes mellit Performed By: #### C BCNO #### [address] Platelet mean volume (Bld) [Entitic vol] 8.3 fL Normal 6.3-10.7 [facility] Comment on above: Order Comment: Reaso n for Exam Chronic kidney disease, stage III (moderate);Diabetes mellit Result Comment: PERF ORMED BY: [place] [address] PATHOLOGIST SCREEN PRINTING PRESS OPERATOR SHANTE LOMBARDI M.D. Performed By: #### C BCNO #### [address] Platelets (Bld) [#/Vol] 270 10*3/uL Normal 150-450 [facility] Comment on above: Order Comment: Reaso n for Exam Chronic kidney disease, stage III (moderate);Diabetes mellit Performed By: #### C BCNO #### [facility] [address] RBC (Bld) [#/Vol] 4.80 10*6/uL Normal 3.60-5.00 [facility] Comment on above: Order Comment: Reaso n for Exam Chronic kidney disease, stage III (moderate);Diabetes mellit Performed By: #### C BCNO #### [facility] [address] WBC (Bld) [#/Vol] 12.8 10*3/uL High 3.8-11.6 [facility] Comment on above: Order Comment: Reaso n for Exam Chronic kidney disease, stage III (moderate);Diabetes mellit Performed By: #### C BCNO #### [facility] [address] Ketones Auto test strip (U) [Mass/Vol]Ordered By: Alta Schmid on 07-31-2023 Ketones (U) [Mass/Vol] Negative Negative [facility] - UrinalysisOrder ed By: Alta Schmid on 07-31-2023 Hyaline casts LM Ql (Urine sed) 0-8 [LPF] 0-8 [facility] Leukocytes [#/volume] correc janet for nucleated erythrocytes in Blood by Automated counOrdered By: Alta Schmid on 07-31-2023 WBC corrected for nucl RBC Auto (Bld) [#/Vol] 12.8 10*3/uL 3.8-11.6 [facility] MCH Auto (RBC) [Entitic mass ]Ordered By: Alta cShmid on 07-31-2023 MCH (RBC) [Entitic mass] 29.9 pg 24.7-34.3 [facility] MCHC Auto (RBC) [Mass/Vol]Or dered By: Alta Schmid on 07-31-2023 MCHC (RBC) [Mass/Vol] 33.6 g/dL 32.0-35.0 [facility] MCV Auto (RBC) [Entitic vol] Ordered By: Alta Schmid on 07-31-2023 MCV (RBC) [Entitic vol] 89.0 fL 80-100 [facility] Magnesiumon 07-31-2023 Magnesium [Mass/Vol] 1.3 mg/dL Low 1.9-2.7 [facility] Comment on above: Order Comment: Reaso n for Exam Chronic kidney disease, stage III (moderate);Diabetes mellit Performed By: #### C BCNO #### [facility] [address] [place] [address] [place] Magnesium [Mass/volume] in S carlos or PlasmaOrdered By: Alta Schmid on 07-31-2023 Magnesium [Mass/Vol] 1.3 mg/dL 1.9-2.7 [facility] Nitrite Test strip Ql (U)Ord ered By: Alta Schmid on 07-31-2023 Nitrite Ql (U) Negative Negative [facility] No Panel InformationOrdered By: Alta Schmid on 07-31-2023 Estimated GFR (CKD-EPI) 38.264 mL/Min [facility] Creatinine Clearance (Chem 38.44 [facility] Parathyrin.intact [Mass/volu me] in Serum or PlasmaOrdered By: Alta Schmid on 07-31-2023 Parathyrin.intact [Mass/Vol] 47.7 pg/mL [facility] Parathyroid Hormone Intacton 07-31-2023 Parathyroid Hormone Intact 47.7 pg/mL Normal [facility] Comment on above: Order Comment: Reaso n for Exam Chronic kidney disease, stage III (moderate);Diabetes mellit Result Comment: PERF ORMED BY: [facility] [address] [facility] [place] [id number] PATHOLOGIST SCREEN PRINTING PRESS OPERATOR SHANTE LOMBARDI M.D. Performed By: #### U HARINDER, RENAL, MG, [id number] #### [facility] [address] [place] [id number] [place] Phosphate [Mass/volume] in S carlos or PlasmaOrdered By: Alta Schmid on 07-31-2023 Phosphate [Mass/Vol] 3.6 mg/dL 2.5-4.5 [facility] Platelet mean volume Auto (B ld) [Entitic vol]Ordered By: Alta Schmid on 07-31-2023 Platelet mean volume (Bld) [Entitic vol] 8.3 fL 6.3-10.7 [facility] Platelets Auto (Bld) [#/Vol] Ordered By: Alta Schmid on 07-31-2023 Platelets (Bld) [#/Vol] 270 10*3/uL 150-450 [facility] Potassium [Moles/volume] in Serum or PlasmaOrdered By: Alta Schmid on 07-31-2023 Potassium [Moles/Vol] 4.7 mmol/L 3.5-5.1 [facility] Protein Auto test strip (U) [Mass/Vol]Ordered By: Alta Schmid on 07-31-2023 Protein (U) [Mass/Vol] Negative Negative [facility] Protein Creat Ratio Ur Rando mon 07-31-2023 Creatinine, Urine (Random) 64.0 mg/dL Normal [facility] Comment on above: Order Comment: Reaso n for Exam Chronic kidney disease, stage III (moderate);Diabetes mellit Result Comment: No r eference range established Performed By: #### C BCNO #### [facility] [address] [place] [address] [place] Protein (U) [Mass/Vol] 16 mg/dL High 0-9 [facility] Comment on above: Order Comment: Reaso n for Exam Chronic kidney disease, stage III (moderate);Diabetes mellit Performed By: #### C BCNO #### [facility] [address] [place] [id number] [place] Urine Protein/Creatinine Ratio 250 mg/g{Cre} High 0-200 [facility] Comment on above: Order Comment: Reaso n for Exam Chronic kidney disease, stage III (moderate);Diabetes mellit Result Comment: PERF ORMED BY: [place] [address] PATHOLOGIST SCREEN PRINTING PRESS OPERATOR SHANTE LOMBARDI M.D. Performed By: #### C BCNO #### [facility] [address] [place] [id number] [place] Protein [Mass/volume] in Uri neOrdered By: Alta Schmid on 07-31-2023 Protein (U) [Mass/Vol] 16 mg/dL 0-9 [facility] RBC Auto (Bld) [#/Vol]Ordere d By: Alta Schmid on 07-31-2023 RBC (Bld) [#/Vol] 4.80 10*6/uL 3.60-5.[address] [facility] Renal Function Panelon 07-30 Albumin [Mass/Vol] 4.0 g/dL Normal 3.5-5.7 [facility] Comment on above: Order Comment: Reaso n for Exam Chronic kidney disease, stage III (moderate);Diabetes mellit Performed By: #### R ENAL, [id number], URIC, MG #### [facility] [address] Anion gap [Moles/Vol] 12.6 mmol/L Normal 6.0-15.0 [facility] Comment on above: Order Comment: Reaso n for Exam Chronic kidney disease, stage III (moderate);Diabetes mellit Performed By: #### R ENAL, [id number], URIC, MG #### [facility] [address] Calcium [Mass/Vol] 9.4 mg/dL Normal 8.6-10.3 [facility] Comment on above: Order Comment: Reaso n for Exam Chronic kidney disease, stage III (moderate);Diabetes mellit Performed By: #### R ENAL, [id number], URIC, MG #### [facility] [address] [place] [id number] [facility] Chloride [Moles/Vol] 103 mmol/L Normal 98-107 [facility] Comment on above: Order Comment: Reaso n for Exam Chronic kidney disease, stage III (moderate);Diabetes mellit Performed By: #### R ENAL, [id number], URIC, MG #### [facility] [address] [place] [id number] [place] CO2 [Moles/Vol] 28.1 mmol/L Normal 21.0-31.0 [facility] Comment on above: Order Comment: Reaso n for Exam Chronic kidney disease, stage III (moderate);Diabetes mellit Performed By: #### R ENAL, [id number], URIC, MG #### [facility] [address] [place] [address] [place] Creatinine [Mass/Vol] 1.49 mg/dL High 0.60-1.20 [facility] Comment on above: Order Comment: Reaso n for Exam Chronic kidney disease, stage III (moderate);Diabetes mellit Performed By: #### R ENAL, [id number], URIC, MG #### [facility] [address] [place] [address] [place] Creatinine Clr Calc Pharmacy 38.44 Normal [facility] Comment on above: Order Comment: Reaso n for Exam Chronic kidney disease, stage III (moderate);Diabetes mellit Performed By: #### R ENAL, [id number], URIC, MG #### [facility] [address] [place] [address] [place] GFR/1.73 sq M.predicted MDRD (S/P/Bld) [Vol rate/Area] 38.264 mL/min/{1.73_m2} Normal [facility] Comment on above: Order Comment: Reaso n for Exam Chronic kidney disease, stage III (moderate);Diabetes mellit Performed By: #### R ENAL, [id number], URIC, MG #### [facility] [address] [place] [id number] [place] Glucose [Mass/Vol] 235 mg/dL High 70-100 [facility] Comment on above: Order Comment: Reaso n for Exam Chronic kidney disease, stage III (moderate);Diabetes mellit Result Comment: [place] Glucose Reference Range is dependent on time and content of last meal. Glucose of more than 200 mg/dL in a nonstressed, ambulatory subject supports the diagnosis of Diabetes Mellitus. ADA recommended reference range Performed By: #### R ENAL, [id number], URIC, MG #### [facility] [address] [place] [id number] [facility] Phosphate [Mass/Vol] 3.6 mg/dL Normal 2.5-4.5 [facility] Comment on above: Order Comment: Reaso n for Exam Chronic kidney disease, stage III (moderate);Diabetes mellit Performed By: #### R ENAL, [id number], URIC, MG #### [address] Potassium [Moles/Vol] 4.7 mmol/L Normal 3.5-5.1 [facility] Comment on above: Order Comment: Reaso n for Exam Chronic kidney disease, stage III (moderate);Diabetes mellit Performed By: #### R ENAL, [id number], URIC, MG #### [address] Sodium [Moles/Vol] 139 mmol/L Normal 136-145 [facility] Comment on above: Order Comment: Reaso n for Exam Chronic kidney disease, stage III (moderate);Diabetes mellit Performed By: #### R ENAL, [id number], URIC, MG #### [address] Urea nitrogen [Mass/Vol] 29 mg/dL High 7-25 [facility] Comment on above: Order Comment: Reaso n for Exam Chronic kidney disease, stage III (moderate);Diabetes mellit Performed By: #### R ENAL, [id number], URIC, MG #### [address] Serum or plasma anion gap de terminationOrdered By: Alta Sharmaine on 07-31-2023 Anion gap [Moles/Vol] 12.6 mmol/L 6.0-15.0 [facility] Sodium [Moles/volume] in Ser um or PlasmaOrdered By: Alta Sharmaine on 07-31-2023 Sodium [Moles/Vol] 139 mmol/L 136-145 [facility] Specific gravity Auto test s trip (U) [Rel density]Ordered By: Alta Fletcherr on 07-31-2023 Specific gravity (U) [Rel density] 1.012 1.001-1.030 [facility] Squamous epithelial cells de tection in urine sediment by light microscopyOrdered By: Alta Schmid on 07-31-2023 Epithelial cells.squamous LM Ql (Urine sed) 0-1 [HPF] 0-2 [facility] Urate [Mass/volume] in Serum or PlasmaOrdered By: Alta Schmid on 07-31-2023 Urate [Mass/Vol] 9.9 mg/dL 2.3-6.6 [facility] Urea nitrogen [Mass/volume] in Serum or PlasmaOrdered By: Alta Schmid on 07-31-2023 Urea nitrogen [Mass/Vol] 29 mg/dL 7-25 [facility] Uric Acidon 07-31-2023 Urate [Mass/Vol] 9.9 mg/dL High 2.3-6.6 [facility] Comment on above: Order Comment: Reaso n for Exam Chronic kidney disease, stage III (moderate);Diabetes mellit Performed By: #### C BCNO #### [address] Urine bacteria detection by automated methodOrdered By: Alta Schmid on 07-31-2023 Bacteria Auto Ql (U) None seen None Seen [facility] Urine clarity by refractomet ry automatedOrdered By: Alta Schmid on 07-31-2023 Clarity Refractometry automated (U) Clear Clear [facility] Urine glucose measurement by automated test strip (mass/volume)Ordered By: Alta Schmid on 07-31-2023 Glucose Auto test strip (U) [Mass/Vol] Normal mg/dL Normal [facility] Urine hemoglobin detection b y automated test stripOrdered By: Alta Schmid on 07-31-2023 Hemoglobin Auto test strip Ql (U) Negative Negative [facility] Urine leukocyte esterase det ection by automated test stripOrdered By: Alta Schmid on 07-31-2023 Leukocyte esterase Auto test strip Ql (U) Negative Negative [facility] Urine protein/creatinine rat ioOrdered By: Alta Schmid on 07-31-2023 Protein/Creatinine (U) [Ratio] 250 mg/g{Cre} 0-200 [facility] Urobilinogen Auto test strip (U) [Mass/Vol]Ordered By: Alta Schmid on 07-31-2023 Urobilinogen (U) [Mass/Vol] Normal mg/dL Normal [facility] Vitamin D 25 Hydroxy Totalon 07-31-2023 Vitamin D 25 Hydroxy Total 41.8 ng/mL Normal 30-100 [facility] Comment on above: Order Comment: Reaso n for Exam Chronic kidney disease, stage III (moderate);Diabetes mellit Result Comment: DEBORAH MIN D STATUS 25(OH)VITAMIN D RANGE (ng/mL) Deficient <20 Insufficient 20 to <30 Sufficient 30 to 100 Reference: Isai Rich, Randa WALSH, et al. Evaluation,treatment, and prevention of vitamin D deficiency; an Endocrine Society clinical practice guideline. JCEM. 2010; 96(7):1911-30. PERFORMED BY: [place] [address] PATHOLOGIST SCREEN PRINTING PRESS OPERATOR SHANTE LOMBARDI M.D. Performed By: #### C [facility] #### [address] Vitamin D+Metabolites [Mass/ volume] in Serum or PlasmaOrdered By: Alta Schmid on 07-31-2023 Vitamin D+Metabolites [Mass/Vol] 41.8 ng/mL 30-100 [facility] Comment on above: VITAMIN D STATUS 25( [place])VITAMIN D RANGE (ng/mL) Deficient <20 Insufficient 20 to <30Sufficient 30 to 100Reference: Isai Rich, Randa WALSH, et al. Evaluation,treatment, and prevention of vitamin D deficiency; an Endocrine Society clinical practice guideline. JCEM. 2010; 96(7):1911-30. pH Auto test strip (U)Ordere d By: Alta Schmid on 07-31-2023 pH (U) 6.0 [pH] 5.0-9.0 [facility] MM screening mammo BI w/CADo n 07-03-2023 MM screening mammo BI w/CAD [facility] [address] [place] [id number] Mammography Report Signed Patient: Vidhya Ibarra MR#: [id number] : 1955 Acct:[id number] Age/Sex: 67 / F ADM Date: 07/03/23 Loc: XT [facility]: [facility] Att[facility]: Yakelin Staley APRN Copies to: MD Yakelin Kahn APRN Mhd [...] Daniels Jr., D.OLois07/03/2023 3:30 PM Dictation Location: [facility] Transcribed By: [facility] 07/03/23 1530 Dictated By: Stevan Daniels Jr, DO 07/03/23 1529 Signed By: 07/03/23 1530 Normal [facility] Basophils Auto (Bld) [#/Vol] Ordered By: Yakelin Staley on 06-22-2023 Basophils (Bld) [#/Vol] 0.1 10*3/uL 0.0-0.2 [facility] Basophils/100 WBC Auto (Bld) Ordered By: Yakelin Staley on 06-22-2023 Basophils/100 WBC (Bld) 0.8 % . F [facility] Complete Blood Count Auto Di ffon 06-22-2023 Basophils (Bld) [#/Vol] 0.1 10*3/uL Normal 0.0-0.2 [facility] Comment on above: Result Comment: PERF ORMED BY: [place] [address] PATHOLOGIST SCREEN PRINTING PRESS OPERATOR SHANTE LOMBARDI M.D. Performed By: #### C BC #### [address] Basophils/100 WBC (Bld) 0.8 % Normal . [facility] Comment on above: Performed By: #### C BC #### [address] Eosinophils (Bld) [#/Vol] 0.2 10*3/uL Normal 0.0-0.45 [facility] Comment on above: Performed By: #### C BC #### [address] Eosinophils/100 WBC (Bld) 1.7 % Normal . [facility] Comment on above: Performed By: #### C BC #### [address] Erythrocyte distribution width (RBC) [Ratio] 15.0 % Normal 11.9-15.3 [facility] Comment on above: Performed By: #### C BC #### [address] Hematocrit (Bld) [Volume fraction] 42.7 % Normal 34.0-46.4 [facility] Comment on above: Performed By: #### C BC #### [address] Hemoglobin (Bld) [Mass/Vol] 14.5 g/dL Normal 11.8-15.4 [facility] Comment on above: Performed By: #### C BC #### [address] Lymphocytes (Bld) [#/Vol] 2.6 10*3/uL Normal 1.00-4.8 [facility] Comment on above: Performed By: #### C BC #### [address] Lymphocytes/100 WBC (Bld) 18.0 % Normal . [facility] Comment on above: Performed By: #### C BC #### [address] MCH (RBC) [Entitic mass] 30.3 pg Normal 24.7-34.3 [facility] Comment on above: Performed By: #### C BC #### [address] MCV (RBC) [Entitic vol] 89.4 fL Normal 80-100 [facility] Comment on above: Performed By: #### C BC #### [address] Mean Corpuscular HGB Conc 33.9 g/dL Normal 32.0-35.0 [facility] Comment on above: Performed By: #### C BC #### [address] Monocytes (Bld) [#/Vol] 0.7 10*3/uL Normal 0.0-0.8 [facility] Comment on above: Performed By: #### C BC #### [address] Monocytes/100 WBC (Bld) 5.2 % Normal . [facility] Comment on above: Performed By: #### C BC #### [address] Neutrophils (Bld) [#/Vol] 10.6 10*3/uL High 1.8-7.7 [facility] Comment on above: Performed By: #### C BC #### [address] Neutrophils/100 WBC (Bld) 74.3 % Normal . [facility] Comment on above: Performed By: #### C BC #### [facility] [address] NRBC% 0.1 /100{WBC} Normal 0-0.5 [facility] Comment on above: Performed By: #### C BC #### [address] Platelet mean volume (Bld) [Entitic vol] 8.3 fL Normal 6.3-10.7 [facility] Comment on above: Performed By: #### C BC #### [facility] [address] Platelets (Bld) [#/Vol] 262 10*3/uL Normal 150-450 [facility] Comment on above: Performed By: #### C BC #### [address] RBC (Bld) [#/Vol] 4.77 10*6/uL Normal 3.60-5.00 [facility] Comment on above: Performed By: #### C BC #### [address] WBC (Bld) [#/Vol] 14.3 10*3/uL High 3.8-11.6 [facility] Comment on above: Performed By: #### C BC #### [address] Eosinophils Auto (Bld) [#/Vo l]Ordered By: Yakelin Rebeka on 06-22-2023 Eosinophils (Bld) [#/Vol] 0.2 10*3/uL 0.0-0.45 [facility] Eosinophils/100 WBC Auto (Bl d)Ordered By: Yakelin Staley on 06-22-2023 Eosinophils/100 WBC (Bld) 1.7 % . [facility] Erythrocyte distribution wid th Auto (RBC) [Ratio]Ordered By: Yakelin Staley on 06-22-2023 Erythrocyte distribution width (RBC) [Ratio] 15.0 % 11.9-15.3 [facility] Hematocrit Auto (Bld) [Volum e fraction]Ordered By: Yakelin Staley on 06-22-2023 Hematocrit (Bld) [Volume fraction] 42.7 % 34.0-46.4 [facility] Hemoglobin [Mass/volume] in BloodOrdered By: Yakelin Staley on 06-22-2023 Hemoglobin (Bld) [Mass/Vol] 14.5 g/dL 11.8-15.4 [facility] Leukocytes [#/volume] correc janet for nucleated erythrocytes in Blood by Automated counOrdered By: Yakelin Staley on 06-22-2023 WBC corrected for nucl RBC Auto (Bld) [#/Vol] 14.3 10*3/uL 3.8-11.6 [facility] Lymphocytes Auto (Bld) [#/Vo l]Ordered By: Yakelin Staley on 06-22-2023 Lymphocytes (Bld) [#/Vol] 2.6 10*3/uL 1.00-4.8 [facility] Lymphocytes/100 WBC Auto (Bl d)Ordered By: Yakelin Staley on 06-22-2023 Lymphocytes/100 WBC (Bld) 18.0 % . [facility] MCH Auto (RBC) [Entitic mass ]Ordered By: Yakelin Staley on 06-22-2023 MCH (RBC) [Entitic mass] 30.3 pg 24.7-34.3 [facility] MCHC Auto (RBC) [Mass/Vol]Or dered By: Yakelin Staley on 06-22-2023 MCHC (RBC) [Mass/Vol] 33.9 g/dL 32.0-35.0 [facility] MCV Auto (RBC) [Entitic vol] Ordered By: Yakelin Staley on 06-22-2023 MCV (RBC) [Entitic vol] 89.4 fL 80-100 [facility] Monocytes Auto (Bld) [#/Vol] Ordered By: Yakelin Staley on 06-22-2023 Monocytes (Bld) [#/Vol] 0.7 10*3/uL 0.0-0.8 [facility] Monocytes/100 WBC Auto (Bld) Ordered By: Yakelin Staley on 06-22-2023 Monocytes/100 WBC (Bld) 5.2 % . [facility] Neutrophils Auto (Bld) [#/Vo l]Ordered By: Yakelin Contrerasjuan pablo on 06-22-2023 Neutrophils (Bld) [#/Vol] 10.6 10*3/uL 1.8-7.7 [facility] Neutrophils/100 WBC Auto (Bl d)Ordered By: Yakelin Staley on 06-22-2023 Neutrophils/100 WBC (Bld) 74.3 % . [facility] Nucleated erythrocytes [Pres ence] in Blood by Automated countOrdered By: Yakelin Contrerasjuan pablo on 06-22-2023 Nucleated RBC Auto Ql (Bld) 0.1 /100{WBC} 0-0.5 [facility] Platelet mean volume Auto (B ld) [Entitic vol]Ordered By: Yakelin Staley on 06-22-2023 Platelet mean volume (Bld) [Entitic vol] 8.3 fL 6.3-10.7 [facility] Platelets Auto (Bld) [#/Vol] Ordered By: Yakelin Contrerasjuan pablo on 06-22-2023 Platelets (Bld) [#/Vol] 262 10*3/uL 150-450 [facility] RBC Auto (Bld) [#/Vol]Ordere d By: Yakelin Contrerasjuan pablo on 06-22-2023 RBC (Bld) [#/Vol] 4.77 10*6/uL 3.60-5.[address] [facility] WBC Auto (Bld) [#/Vol]Ordere d By: Yakelin Contrerasjuan pablo on 06-22-2023 WBC (Bld) [#/Vol] 14.3 10*3/uL 3.8-11.[address] [facility] Complete Blood Count Auto Di ffon 03-24-2023 Basophils (Bld) [#/Vol] 0.1 10*3/uL Normal 0.0-0.2 [facility] Comment on above: Result Comment: PERF ORMED BY: [facility] [address] [place] [address] PATHOLOGIST SCREEN PRINTING PRESS OPERATOR SHANTE LOMBARDI M.D. Performed By: #### C #### [facility] [address] Basophils/100 WBC (Bld) 0.7 % Normal . [facility] Comment on above: Performed By: #### C BC #### [facility] [address] [place] [address] [place] Eosinophils (Bld) [#/Vol] 0.4 10*3/uL Normal 0.0-0.45 [facility] Comment on above: Performed By: #### C BC #### [address] Eosinophils/100 WBC (Bld) 2.2 % Normal . [facility] Comment on above: Performed By: #### C BC #### [address] Erythrocyte distribution width (RBC) [Ratio] 14.4 % Normal 11.9-15.3 [facility] Comment on above: Performed By: #### C BC #### [address] Hematocrit (Bld) [Volume fraction] 42.6 % Normal 34.0-46.4 [facility] Comment on above: Performed By: #### C BC #### [address] Hemoglobin (Bld) [Mass/Vol] 14.2 g/dL Normal 11.8-15.4 [facility] Comment on above: Performed By: #### C BC #### [address] Lymphocytes (Bld) [#/Vol] 2.9 10*3/uL Normal 1.00-4.8 [facility] Comment on above: Performed By: #### C BC #### [place] [address] [place] Lymphocytes/100 WBC (Bld) 17.3 % Normal . [facility] Comment on above: Performed By: #### C BC #### [address] MCH (RBC) [Entitic mass] 30.2 pg Normal 24.7-34.3 [facility] Comment on above: Performed By: #### C BC #### [address] MCV (RBC) [Entitic vol] 90.7 fL Normal 80-100 [facility] Comment on above: Performed By: #### C BC #### [address] Mean Corpuscular HGB Conc 33.3 g/dL Normal 32.0-35.0 [facility] Comment on above: Performed By: #### C BC #### [address] Monocytes (Bld) [#/Vol] 1.1 10*3/uL High 0.0-0.8 [facility] Comment on above: Performed By: #### C BC #### [address] Monocytes/100 WBC (Bld) 6.4 % Normal . [facility] Comment on above: Performed By: #### C BC #### [address] Neutrophils (Bld) [#/Vol] 12.2 10*3/uL High 1.8-7.7 [facility] Comment on above: Performed By: #### C BC #### [address] Neutrophils/100 WBC (Bld) 73.4 % Normal . [facility] Comment on above: Performed By: #### C BC #### [address] NRBC% 0.1 /100{WBC} Normal 0-0.5 [facility] Comment on above: Performed By: #### C BC #### [address] Platelet mean volume (Bld) [Entitic vol] 8.5 fL Normal 6.3-10.7 [facility] Comment on above: Performed By: #### C BC #### [place] [address] [place] Platelets (Bld) [#/Vol] 302 10*3/uL Normal 150-450 [facility] Comment on above: Performed By: #### C BC #### [facility] [address] RBC (Bld) [#/Vol] 4.70 10*6/uL Normal 3.60-5.00 [facility] Comment on above: Performed By: #### C BC #### [facility] [address] WBC (Bld) [#/Vol] 16.7 10*3/uL High 3.8-11.6 [facility] Comment on above: Performed By: #### C BC #### [facility] [address] Albumin [Mass/volume] in Ser um or Plasma by Bromocresol green (BCG) dye binding methoOrdered By: Alta Schmid on 03-04-2023 Albumin BCG dye [Mass/Vol] 4.1 g/dL 3.5-5.7 [facility] Automated erythrocytes count in urine sediment (number/area)Ordered By: Alta Fletcherr on 03-04-2023 RBC Auto (Urine sed) [#/Area] 0-1 [HPF] 0-4 [facility] Automated leukocytes count i n urine sediment (number/area)Ordered By: Alta Fletcherr on 03-04-2023 WBC Auto (Urine sed) [#/Area] 5-9 [HPF] 0-4 [facility] Bilirubin Test strip Ql (U)O rdered By: Alta Schmid on 03-04-2023 Bilirubin Ql (U) Negative Negative [facility] Calcium [Mass/volume] in Ser um or PlasmaOrdered By: Alta Schmid on 03-04-2023 Calcium [Mass/Vol] 9.2 mg/dL 8.6-10.3 [facility] Carbon dioxide, total [Moles /volume] in Serum or PlasmaOrdered By: Alta Fletcherr on 03-04-2023 CO2 [Moles/Vol] 25.4 mmol/L 21.0-31.0 [facility] Chloride [Moles/volume] in S carlos or PlasmaOrdered By: Alta Schmid on 03-04-2023 Chloride [Moles/Vol] 104 mmol/L 98-107 [facility] Color Auto (U)Ordered By: Ab richard Schmid on 03-04-2023 Color (U) Yellow Yellow [facility] Creatinine [Mass/volume] in Serum or PlasmaOrdered By: Alta Schmid on 03-04-2023 Creatinine [Mass/Vol] 1.59 mg/dL 0.60-1.20 [facility] Creatinine [Mass/volume] in UrineOrdered By: Alta Comerdir on 03-04-2023 Creatinine (U) [Mass/Vol] 100.0 mg/dL 11.0-20.0 [facility] Dipstick and Microscopicon 1 05-04-2022 Appearance (U) Clear Normal Clear [facility] Comment on above: Order Comment: Reaso n for Exam Chronic kidney disease, stage III (moderate);Diabetes mellit Performed By: #### C BCNO #### [facility] [address] [place] [id number] [place] Bacteria,Urine None Seen Normal None Seen [facility] Comment on above: Order Comment: Reaso n for Exam Chronic kidney disease, stage III (moderate);Diabetes mellit Performed By: #### C BCNO #### [facility] [address] [place] [address] [place] Bilirubin,Urine Negative Normal Negative [facility] Comment on above: Order Comment: Reaso n for Exam Chronic kidney disease, stage III (moderate);Diabetes mellit Performed By: #### C BCNO #### [facility] [address] [place] [address] [place] Color (U) Yellow Normal Yellow [facility] Comment on above: Order Comment: Reaso n for Exam Chronic kidney disease, stage III (moderate);Diabetes mellit Performed By: #### C BCNO #### [facility] [address] [place] [address] [place] Glucose Ql (U) Normal Normal Normal [facility] Comment on above: Order Comment: Reaso n for Exam Chronic kidney disease, stage III (moderate);Diabetes mellit Performed By: #### C BCNO #### [address] Hyaline Casts,Urine 0-8 Normal 0-8 [facility] Comment on above: Order Comment: Reaso n for Exam Chronic kidney disease, stage III (moderate);Diabetes mellit Result Comment: PERF ORMED BY: [place] [address] PATHOLOGIST SCREEN PRINTING PRESS OPERATOR SHANTE LOMBARDI M.D. Performed By: #### C BCNO #### [address] Ketones Ql (U) Negative Normal Negative [facility] Comment on above: Order Comment: Reaso n for Exam Chronic kidney disease, stage III (moderate);Diabetes mellit Performed By: #### C BCNO #### [address] Leukocyte esterase Test strip Ql (U) 1+ High Negative [facility] Comment on above: Order Comment: Reaso n for Exam Chronic kidney disease, stage III (moderate);Diabetes mellit Performed By: #### C BCNO #### [address] Nitrite,Urine Negative Normal Negative [facility] Comment on above: Order Comment: Reaso n for Exam Chronic kidney disease, stage III (moderate);Diabetes mellit Performed By: #### C BCNO #### [address] Occult Blood,Urine Negative Normal Negative [facility] Comment on above: Order Comment: Reaso n for Exam Chronic kidney disease, stage III (moderate);Diabetes mellit Performed By: #### C BCNO #### [address] pH (U) 5.5 [pH] Normal 5.0-9.0 [facility] Comment on above: Order Comment: Reaso n for Exam Chronic kidney disease, stage III (moderate);Diabetes mellit Performed By: #### C BCNO #### [facility] [address] Protein,Urine Negative Normal Negative [facility] Comment on above: Order Comment: Reaso n for Exam Chronic kidney disease, stage III (moderate);Diabetes mellit Performed By: #### C BCNO #### [facility] [address] [place] [id number] [facility] RBC LM.HPF (Urine sed) [#/Area] 0 /[HPF] Normal 0-4 [facility] Comment on above: Order Comment: Reaso n for Exam Chronic kidney disease, stage III (moderate);Diabetes mellit Performed By: #### C BCNO #### [address] Specificy [place],Urine 1.014 Normal 1.001-1.030 [facility] Comment on above: Order Comment: Reaso n for Exam Chronic kidney disease, stage III (moderate);Diabetes mellit Performed By: #### C BCNO #### [address] Squamous Epithelial Cell,Urine 5-9 High 0-2 [facility] Comment on above: Order Comment: Reaso n for Exam Chronic kidney disease, stage III (moderate);Diabetes mellit Performed By: #### C BCNO #### [place] [id number] [facility] Urobilinogen,Urine Normal Normal Normal [facility] Comment on above: Order Comment: Reaso n for Exam Chronic kidney disease, stage III (moderate);Diabetes mellit Performed By: #### C BCNO #### [place] [id number] [facility] WBC,Urine 5-9 High 0-4 [facility] Comment on above: Order Comment: Reaso n for Exam Chronic kidney disease, stage III (moderate);Diabetes mellit Performed By: #### C BCNO #### [place] [id number] [facility] Erythrocyte distribution wid th Auto (RBC) [Ratio]Ordered By: Alta Schmid on 03-04-2023 Erythrocyte distribution width (RBC) [Ratio] 14.8 % 11.9-15.3 [facility] Glucose [Mass/volume] in Ser um or PlasmaOrdered By: Alta Schmid on 03-04-2023 Glucose [Mass/Vol] 232 mg/dL 70-100 [facility] Comment on above: ADA recommended refe rence rangeRandom Glucose Reference Range is dependent on time and content of last meal. Glucose of more than 200 mg/dL in a nonstressed, ambulatory subject supports the diagnosis of Diabetes Mellitus. Hematocrit Auto (Bld) [Volum e fraction]Ordered By: Alta Schmid on 03-04-2023 Hematocrit (Bld) [Volume fraction] 42.6 % 34.0-46.4 [facility] Hemoglobin [Mass/volume] in BloodOrdered By: Alta Schmid on 03-04-2023 Hemoglobin (Bld) [Mass/Vol] 14.5 g/dL 11.8-15.4 [facility] Hemogram CBC Without Diffon 03-04-2023 Erythrocyte distribution width (RBC) [Ratio] 14.8 % Normal 11.9-15.3 [facility] Comment on above: Order Comment: Reaso n for Exam Chronic kidney disease, stage III (moderate);Diabetes mellit Performed By: #### C BCNO #### [address] Hematocrit (Bld) [Volume fraction] 42.6 % Normal 34.0-46.4 [facility] Comment on above: Order Comment: Reaso n for Exam Chronic kidney disease, stage III (moderate);Diabetes mellit Performed By: #### C BCNO #### [facility] [address] Hemoglobin (Bld) [Mass/Vol] 14.5 g/dL Normal 11.8-15.4 [facility] Comment on above: Order Comment: Reaso n for Exam Chronic kidney disease, stage III (moderate);Diabetes mellit Performed By: #### C BCNO #### [facility] [address] [place] [id number] [place] MCH (RBC) [Entitic mass] 31.1 pg Normal 24.7-34.3 [facility] Comment on above: Order Comment: Reaso n for Exam Chronic kidney disease, stage III (moderate);Diabetes mellit Performed By: #### C BCNO #### [address] MCV (RBC) [Entitic vol] 91.6 fL Normal 80-100 [facility] Comment on above: Order Comment: Reaso n for Exam Chronic kidney disease, stage III (moderate);Diabetes mellit Performed By: #### C BCNO #### [address] Mean Corpuscular HGB Conc 34.0 g/dL Normal 32.0-35.0 [facility] Comment on above: Order Comment: Reaso n for Exam Chronic kidney disease, stage III (moderate);Diabetes mellit Performed By: #### C BCNO #### [address] Platelet mean volume (Bld) [Entitic vol] 8.5 fL Normal 6.3-10.7 [facility] Comment on above: Order Comment: Reaso n for Exam Chronic kidney disease, stage III (moderate);Diabetes mellit Result Comment: PERF ORMED BY: [place] [address] PATHOLOGIST SCREEN PRINTING PRESS OPERATOR SHANTE LOMBARDI M.D. Performed By: #### C BCNO #### [place] [address] [place] Platelets (Bld) [#/Vol] 327 10*3/uL Normal 150-450 [facility] Comment on above: Order Comment: Reaso n for Exam Chronic kidney disease, stage III (moderate);Diabetes mellit Performed By: #### C BCNO #### [place] [address] [place] RBC (Bld) [#/Vol] 4.65 10*6/uL Normal 3.60-5.00 [facility] Comment on above: Order Comment: Reaso n for Exam Chronic kidney disease, stage III (moderate);Diabetes mellit Performed By: #### C BCNO #### [facility] [address] WBC (Bld) [#/Vol] 16.2 10*3/uL High 3.8-11.6 [facility] Comment on above: Order Comment: Reaso n for Exam Chronic kidney disease, stage III (moderate);Diabetes mellit Performed By: #### C BCNO #### [facility] [address] Ketones Auto test strip (U) [Mass/Vol]Ordered By: Alta Schmid on 03-04-2023 Ketones (U) [Mass/Vol] Negative Negative [facility] - UrinalysisOrder ed By: Alta Schmid on 03-04-2023 Hyaline casts LM Ql (Urine sed) 0-8 [LPF] 0-8 [facility] Leukocytes [#/volume] correc janet for nucleated erythrocytes in Blood by Automated counOrdered By: Alta Schmid on 03-04-2023 WBC corrected for nucl RBC Auto (Bld) [#/Vol] 16.2 10*3/uL 3.8-11.6 [facility] MCH Auto (RBC) [Entitic mass ]Ordered By: Alta Schmid on 03-04-2023 MCH (RBC) [Entitic mass] 31.1 pg 24.7-34.3 [facility] MCHC Auto (RBC) [Mass/Vol]Or dered By: Alta Schmid on 03-04-2023 MCHC (RBC) [Mass/Vol] 34.0 g/dL 32.0-35.0 [facility] MCV Auto (RBC) [Entitic vol] Ordered By: Alta Schmid on 03-04-2023 MCV (RBC) [Entitic vol] 91.6 fL 80-100 [facility] Magnesiumon 03-04-2023 Magnesium [Mass/Vol] 1.4 mg/dL Low 1.9-2.7 [facility] Comment on above: Order Comment: Reaso n for Exam Chronic kidney disease, stage III (moderate);Diabetes mellit Performed By: #### U HARINDER, RENAL, MG, [id number] #### [facility] [address] [place] [address] [facility] Magnesium [Mass/volume] in S carlos or PlasmaOrdered By: Alta Schmid on 03-04-2023 Magnesium [Mass/Vol] 1.4 mg/dL 1.9-2.7 [facility] Nitrite Test strip Ql (U)Ord ered By: Alta Schmid on 03-04-2023 Nitrite Ql (U) Negative Negative [facility] No Panel InformationOrdered By: Alta Schmid on 03-04-2023 Estimated GFR (CKD-EPI) 35.395 mL/Min [facility] Creatinine Clearance (Chem N/A [facility] Parathyrin.intact [Mass/volu me] in Serum or PlasmaOrdered By: Alta Schmid on 03-04-2023 Parathyrin.intact [Mass/Vol] 87.0 pg/mL [facility] Parathyroid Hormone Intacton 03-04-2023 Parathyroid Hormone Intact 87.0 pg/mL Normal [facility] Comment on above: Order Comment: Reaso n for Exam Chronic kidney disease, stage III (moderate);Diabetes mellit Result Comment: PERF ORMED BY: [place] [address] PATHOLOGIST SCREEN PRINTING PRESS OPERATOR SHANTE LOMBARDI M.D. Performed By: #### C BCNO #### [facility] [address] [place] [address] [facility] Phosphate [Mass/volume] in S carlos or PlasmaOrdered By: Alta Schmid on 03-04-2023 Phosphate [Mass/Vol] 4.0 mg/dL 3.7-7.2 [facility] Platelet mean volume Auto (B ld) [Entitic vol]Ordered By: Alta Schmid on 03-04-2023 Platelet mean volume (Bld) [Entitic vol] 8.5 fL 6.3-10.7 [facility] Platelets Auto (Bld) [#/Vol] Ordered By: Alta Schmid on 03-04-2023 Platelets (Bld) [#/Vol] 327 10*3/uL 150-450 [facility] Potassium [Moles/volume] in Serum or PlasmaOrdered By: Alta Schmid on 03-04-2023 Potassium [Moles/Vol] 4.9 mmol/L 3.5-5.1 [facility] Protein Auto test strip (U) [Mass/Vol]Ordered By: Alta Schmid on 03-04-2023 Protein (U) [Mass/Vol] Negative Negative [facility] Protein Creat Ratio Ur Rando mon 03-04-2023 Creatinine, Urine (Random) 100.0 mg/dL High 11.0-20.0 [facility] Comment on above: Order Comment: Reaso n for Exam Chronic kidney disease, stage III (moderate);Diabetes mellit Performed By: #### P ROCRERAT #### [facility] [address] [place] [id number] [place] Protein (U) [Mass/Vol] 14 mg/dL High 0-9 [facility] Comment on above: Order Comment: Reaso n for Exam Chronic kidney disease, stage III (moderate);Diabetes mellit Performed By: #### P ROCRERAT #### [facility] [address] Urine Protein/Creatinine Ratio 140 mg/g{Cre} Normal 0-200 [facility] Comment on above: Order Comment: Reaso n for Exam Chronic kidney disease, stage III (moderate);Diabetes mellit Result Comment: PERF ORMED BY: [place] [address] PATHOLOGIST SCREEN PRINTING PRESS OPERATOR SHANTE LOMBARDI M.D. Performed By: #### P ROCRERAT #### [facility] [address] [place] [address] [place] Protein [Mass/volume] in Uri neOrdered By: Alta Schmid on 03-04-2023 Protein (U) [Mass/Vol] 14 mg/dL 0-9 [facility] RBC Auto (Bld) [#/Vol]Ordere d By: Alta Sharmaine on 03-04-2023 RBC (Bld) [#/Vol] 4.65 10*6/uL 3.60-5.[address] [facility] Renal Function Panelon 03-04 Albumin [Mass/Vol] 4.1 g/dL Normal 3.5-5.7 [facility] Comment on above: Order Comment: Reaso n for Exam Chronic kidney disease, stage III (moderate);Diabetes mellit Performed By: #### U HARINDER, RENAL, MG, [id number] #### [facility] [address] Anion gap [Moles/Vol] 13.5 mmol/L Normal 6.0-15.0 [facility] Comment on above: Order Comment: Reaso n for Exam Chronic kidney disease, stage III (moderate);Diabetes mellit Performed By: #### U HARINDER, RENAL, MG, [id number] #### [facility] [address] [place] [address] [facility] Calcium [Mass/Vol] 9.2 mg/dL Normal 8.6-10.3 [facility] Comment on above: Order Comment: Reaso n for Exam Chronic kidney disease, stage III (moderate);Diabetes mellit Performed By: #### U HARINDER, RENAL, MG, [id number] #### [facility] [address] [place] [id number] [place] Chloride [Moles/Vol] 104 mmol/L Normal 98-107 [facility] Comment on above: Order Comment: Reaso n for Exam Chronic kidney disease, stage III (moderate);Diabetes mellit Performed By: #### U HARINDER, RENAL, MG, [id number] #### [facility] [address] [place] [id number] [facility] CO2 [Moles/Vol] 25.4 mmol/L Normal 21.0-31.0 [facility] Comment on above: Order Comment: Reaso n for Exam Chronic kidney disease, stage III (moderate);Diabetes mellit Performed By: #### U HARINDER, RENAL, MG, [id number] #### [facility] [address] [place] [id number] [facility] Creatinine [Mass/Vol] 1.59 mg/dL High 0.60-1.20 [facility] Comment on above: Order Comment: Reaso n for Exam Chronic kidney disease, stage III (moderate);Diabetes mellit Performed By: #### U HARINDER, RENAL, MG, [id number] #### [place] [address] [place] GFR/1.73 sq M.predicted MDRD (S/P/Bld) [Vol rate/Area] 35.395 mL/min/{1.73_m2} Normal [facility] Comment on above: Order Comment: Reaso n for Exam Chronic kidney disease, stage III (moderate);Diabetes mellit Performed By: #### U HARINDER, RENAL, MG, [id number] #### [address] Glucose [Mass/Vol] 232 mg/dL High 70-100 [facility] Comment on above: Order Comment: Reaso n for Exam Chronic kidney disease, stage III (moderate);Diabetes mellit Result Comment: [facility] Glucose Reference Range is dependent on time and content of last meal. Glucose of more than 200 mg/dL in a nonstressed, ambulatory subject supports the diagnosis of Diabetes Mellitus. ADA recommended reference range Performed By: #### U HARINDER, RENAL, MG, [id number] #### [place] [address] [place] Phosphate [Mass/Vol] 4.0 mg/dL Normal 3.7-7.2 [facility] Comment on above: Order Comment: Reaso n for Exam Chronic kidney disease, stage III (moderate);Diabetes mellit Performed By: #### U HARINDER, RENAL, MG, [id number] #### [address] Potassium [Moles/Vol] 4.9 mmol/L Normal 3.5-5.1 [facility] Comment on above: Order Comment: Reaso n for Exam Chronic kidney disease, stage III (moderate);Diabetes mellit Performed By: #### U HARINDER, RENAL, MG, [id number] #### [place] [id number] [facility] Sodium [Moles/Vol] 138 mmol/L Normal 136-145 [facility] Comment on above: Order Comment: Reaso n for Exam Chronic kidney disease, stage III (moderate);Diabetes mellit Performed By: #### U HARINDER, RENAL, MG, [id number] #### [facility] [address] Urea nitrogen [Mass/Vol] 42 mg/dL High 7-25 [facility] Comment on above: Order Comment: Reaso n for Exam Chronic kidney disease, stage III (moderate);Diabetes mellit Performed By: #### U HARINDER, RENAL, MG, [id number] #### [facility] [address] Serum or plasma anion gap de terminationOrdered By: Alta Sharmaine on 03-04-2023 Anion gap [Moles/Vol] 13.5 mmol/L 6.0-15.0 [facility] Sodium [Moles/volume] in Ser um or PlasmaOrdered By: Alta Sharmaine on 03-04-2023 Sodium [Moles/Vol] 138 mmol/L 136-145 [facility] Specific gravity Auto test s trip (U) [Rel density]Ordered By: Alta Sharmaine on 03-04-2023 Specific gravity (U) [Rel density] 1.014 1.001-1.030 [facility] Squamous epithelial cells de tection in urine sediment by light microscopyOrdered By: Alta Sharmaine on 03-04-2023 Epithelial cells.squamous LM Ql (Urine sed) 5-9 [HPF] 0-2 [facility] Urate [Mass/volume] in Serum or PlasmaOrdered By: Alta Sharmaine on 03-04-2023 Urate [Mass/Vol] 10.7 mg/dL 2.3-6.6 [facility] Urea nitrogen [Mass/volume] in Serum or PlasmaOrdered By: Alta Sharmaine on 03-04-2023 Urea nitrogen [Mass/Vol] 42 mg/dL 7-25 [facility] Uric Acidon 03-04-2023 Urate [Mass/Vol] 10.7 mg/dL High 2.3-6.6 [facility] Comment on above: Order Comment: Reaso n for Exam Chronic kidney disease, stage III (moderate);Diabetes mellit Performed By: #### U HARINDER, RENAL, MG, [id number] #### [facility] [address] [place] [address] [place] Urine Cultureon 03-04-2023 Bacteria identified Cx Nom (U) 75,000 colonies/ml mixed bacterial skin contaminants 2 Days PERFORMED BY: [place] [address] PATHOLOGIST SCREEN PRINTING PRESS OPERATOR SHANTE LOMBARDI M.D. Normal [facility] Comment on above: Performed By: #### C BCNO #### [facility] [address] Urine bacteria detection by automated methodOrdered By: Alta Schmid on 03-04-2023 Bacteria Auto Ql (U) None seen None Seen [facility] Urine clarity by refractomet ry automatedOrdered By: Alta Schmid on 03-04-2023 Clarity Refractometry automated (U) Clear Clear [facility] Urine culture routineOrdered By: Alta Schmid on 03-04-2023 Bacteria identified Cx Nom (U) 2 Days [facility] Urine glucose measurement by automated test strip (mass/volume)Ordered By: Alta Schmid on 03-04-2023 Glucose Auto test strip (U) [Mass/Vol] Normal mg/dL Normal [facility] Urine hemoglobin detection b y automated test stripOrdered By: Alta Schmid on 03-04-2023 Hemoglobin Auto test strip Ql (U) Negative Negative [facility] Urine leukocyte esterase det ection by automated test stripOrdered By: Alta Schmid on 03-04-2023 Leukocyte esterase Auto test strip Ql (U) 1+ Negative [facility] Urine protein/creatinine rat ioOrdered By: Alta Schmid on 03-04-2023 Protein/Creatinine (U) [Ratio] 140 mg/g{Cre} 0-200 [facility] Urobilinogen Auto test strip (U) [Mass/Vol]Ordered By: Alta Schmid on 03-04-2023 Urobilinogen (U) [Mass/Vol] Normal mg/dL Normal [facility] Vitamin D 25 Hydroxy Totalon 03-04-2023 Vitamin D 25 Hydroxy Total 41.9 ng/mL Normal 30-100 [facility] Comment on above: Order Comment: Reaso n for Exam Chronic kidney disease, stage III (moderate);Diabetes mellit Result Comment: DEBORAH MIN D STATUS 25(OH)VITAMIN D RANGE (ng/mL) Deficient <20 Insufficient 20 to <30 Sufficient 30 to 100 Reference: Isai Rich, Randa WALSH, et al. Evaluation,treatment, and prevention of vitamin D deficiency; an Endocrine Society clinical practice guideline. JCEM. 2010; 96(7):1911-. PERFORMED BY: [facility] [address] [place] [address] PATHOLOGIST SCREEN PRINTING PRESS OPERATOR SHANTE LOMBARDI M.D. Performed By: #### U HARINDER, RENAL, MG, [id number] #### [address] Vitamin D+Metabolites [Mass/ volume] in Serum or PlasmaOrdered By: Alta Schmid on 03-04-2023 Vitamin D+Metabolites [Mass/Vol] 41.9 ng/mL 30-100 [facility] Comment on above: VITAMIN D STATUS 25( [place])VITAMIN D RANGE (ng/mL) Deficient <20 Insufficient 20 to <30Sufficient 30 to 100Reference: Isai Rich, Randa WALSH, et al. Evaluation,treatment, and prevention of vitamin D deficiency; an Endocrine Society clinical practice guideline. JCEM. 2010; 96(7):1911-30. pH Auto test strip (U)Ordere d By: Alta Schmid on 03-04-2023 pH (U) 5.5 [pH] 5.0-9.0 [facility] Office Visit (Cardiology)on 12-08-2022 Follow-up visit Diagnoses/Problems Assessed Hypertension (401.9) (I10) Current smoker (305.1) (F17.200) 1/2 pack daily. Diabetes (250.00) (E11.9) Class 1 obesity with body mass index (BMI) of 32.0 to 32.9 in adult (278.00,V85.32) (E66.9,Z68.32) Orders Class 1 obesity with body mass index (BMI) of 32.0 to 32.9 in adult Healthy Weight Tips; Status:Complete; Done: [id number] Some eating tips that can help you lose weight.; Status:Complete; Done: 77Uvd4606 SocHx: Current smoker Tobacco Use Screening; Status:Complete; Done: [id number] You need to stop smoking. Though it is not easy, more than half of all adult smokers have quit. We encourage you to write down all the reasons you should quit smoking and set a quit date for yourself. Ask us how we can help. You may also call 7-241-YSLGSofeaNOW for free resources and assistance.; Status:Complete; Done: 48Lsk2104 Patient Instructions Please bring all medicines, vitamins, [...] negative for complaint. Vitals Vital Signs Recorded: [id number] 08:41AM Heart Rate66, R Radial Nncrtzio437, RUE, Sitting Iqnlplazq23, RUE, Sitting Height5 ft 3 in Licxku543 lb BMI Saahykjaaf41.95 kg/m2 BSA Calculated1.88 Tobacco Usea) Yes Patient [...] a) No falls within the last year -[facility] DO Work Phone: Tobacco use status CPHS a) Yes M P-[facility] DO Work Phone: Tobacco Screening. Yes -[facility] DO Work Phone: CBC AUTO DIFFon 06-28-2022 BASO # 0.1 103/ul Normal 0.0-0.1 [facility] Comment on above: Performed By: #### C BC #### [facility] [address] [place] [address] Dr. Briana Dillard Basophils/100 WBC (Bld) 0.8 % Normal 0.2-2.0 [facility] Comment on above: Performed By: #### C BC #### [facility] [address] [place] [address] [address] Briana Dillard EO # 0.3 103/ul Normal 0.0-0.7 [facility] Comment on above: Performed By: #### C BC #### [facility] [address] [place] [address] Dr. Briana Dillard Eosinophils/100 WBC (Bld) 2.5 % Normal 0.9-7.0 [facility] Comment on above: Performed By: #### C BC #### [facility] [address] [address] [address] Briaan Dillard Erythrocyte distribution width (RBC) [Ratio] 14.8 % Normal 11.0-15.0 [facility] Comment on above: Performed By: #### C BC #### [facility] [address] [place] [address] Dr. Briana Dillard Hematocrit (Bld) [Volume fraction] 43.8 % Normal 36.0-48.0 [facility] Comment on above: Performed By: #### C BC #### [facility] [address] [place] [address] [address] Briana Dillard Hemoglobin (Bld) [Mass/Vol] 14.5 g/dL Normal 12.0-16.0 [facility] Comment on above: Performed By: #### C BC #### [facility] [address] [address] [address] Briana Dillard IG # 0.13 10e3/ul Critically high 0.00-0.03 [facility] Comment on above: Performed By: #### C BC #### [facility] [address] [place] [address] Dr. Briana Dillard IG % 1.0 % Critically high 0.0-0.5 [facility] Comment on above: Performed By: #### C BC #### [facility] [address] [place] [address] Dr. Briana Dillard LYMPH # 2.5 103/ul Normal 1.2-3.8 [facility] Comment on above: Performed By: #### C BC #### [facility] [address] [place] [address] Dr. Briana Dillard Lymphocytes/100 WBC (Bld) 19.1 % Critically low 20.5-60.0 [facility] Comment on above: Performed By: #### C BC #### [facility] [address] [place] [address] Dr. Briana Dillard MANUAL DIFF REQ NO Normal [facility] Comment on above: Performed By: #### C BC #### [facility] [address] [place] [address] Dr. Briana Dillard MCH (RBC) [Entitic mass] 30.8 pg Normal 26.7-34.0 [facility] Comment on above: Performed By: #### C BC #### [facility] [address] [place] [address] Dr. Briana Dillard MCHC (RBC) [Mass/Vol] 33.1 g/dL Normal 29.9-35.2 [facility] Comment on above: Performed By: #### C BC #### [facility] [address] [address] [address] Briana Dillard MCV (RBC) [Entitic vol] 93.0 fL Normal 81.0-99.0 [facility] Comment on above: Performed By: #### C BC #### [facility] [address] [address] [address] Briana Dillard MONO # 0.7 103/ul Normal 0.3-0.8 [facility] Comment on above: Performed By: #### C BC #### [facility] [address] [place] [address] Dr. Briana Dillard Monocytes/100 WBC (Bld) 5.7 % Normal 1.7-12.0 [facility] Comment on above: Performed By: #### C BC #### [facility] [address] [place] [address] Dr. Briana Dillard NEUT # 9.2 103/ul Critically high 1.4-6.5 [facility] Comment on above: Performed By: #### C BC #### [facility] [address] [place] [address] Dr. Briana Dillard Neutrophils/100 WBC (Bld) 70.9 % Normal 43.0-75.0 [facility] Comment on above: Performed By: #### C BC #### [facility] [address] [place] [address] Dr. Briana Dillard Platelet mean volume (Bld) [Entitic vol] 10.4 fL Normal 9.5-13.5 [facility] Comment on above: Performed By: #### C BC #### [facility] [address] [place] [address] Dr. Briana Dillard PLT 262 103/ul Normal 150-450 [facility] Comment on above: Performed By: #### C BC #### [facility] [address] [place] [address] Dr. Briana Dillard RBC 4.71 106/ul Normal 4.20-5.40 [facility] Comment on above: Performed By: #### C BC #### [facility] [address] [address] [address] Briana Dillard WBC 13.0 103/ul Critically high 4.0-11.0 [facility] Comment on above: Performed By: #### C BC #### [facility] [address] [address] [address] Briana Dillard DIRECT LDLon 06-28-2022 Cholesterol in LDL [Mass/Vol] 90 mg/dL Normal [facility] Comment on above: Performed By: #### C GEOVANY COLMENARES, BNP #### [facility] [address] [address] [address] Briana Dillard DLDL NORMAL SEE BELOW Normal [facility] Comment on above: Result Comment: <100 mg/dl OPTIMAL 100 - 129 mg/dl NEAR OR ABOVE OPTIMAL 130 - 159 mg/dl BORDERLINE HIGH 160 - 189 mg/dl HIGH >190 mg/dl VERY HIGH Performed By: #### C GEOVANY COLMENARES, BNP #### [facility] [address] [place] [address] Dr. Briana Dillard GLYCOHEMOGLOBIN A1Con 2022 ADA RECOMMENDATION SEE BELOW Normal [facility] Comment on above: Result Comment: ADA RECOMMENDED LIMIT 4.0 - 6.0 ADA THERAPEUTIC TARGET < 7.0 ACTION SUGGESTED > 7.0 Performed By: #### C GEOVANY COLMENARES, BNP #### [facility] [address] [address] [address] Briana Dillard Glucose [Mass/Vol] 229 mg/dL Normal [facility] Comment on above: Performed By: #### C GEOVANY COLMENARES, BNP #### [facility] [address] [place] [address] Dr. Briana Dillard HbA1c (Bld) [Mass fraction] 9.6 % Critically high 4.5-6.2 [facility] Comment on above: Performed By: #### C GEOVANY COLMENARES, BNP #### [facility] [address] [place] [address] Dr. Briana Dillard LIPID PROFILEon 06-28-2022 CHOL-HDL RATIO NORM SEE BELOW Normal [facility] Comment on above: Result Comment: 3.3 - 4.4 LOW RISK 4.4 - 7.1 AVERAGE RISK 7.1 - 11.0 MODERATE RISK >11.0 HIGH RISK Performed By: #### C MP, CMADM, BNP #### [facility] [address] [address] [address] Briana Dillard Cholesterol [Mass/Vol] 219 mg/dL Critically high <=200 [facility] Comment on above: Performed By: #### C MP, CMADM, BNP #### [facility] [address] [address] [address] Briana Dillard Cholesterol in HDL [Mass/Vol] 32 mg/dL Critically low 40-60 [facility] Comment on above: Performed By: #### C MP, CMADM, BNP #### [facility] [address] [address] [address] Briana Dillard Cholesterol.total/Choles terol in HDL [Mass ratio] 6.8 {ratio} Normal [facility] Comment on above: Performed By: #### C MP, CMADM, BNP #### [facility] [address] [address] [address] Briana Dillard HDL NORMAL > or = 60 mg/dl - LOW CARDIOVASCULAR RISK <40 mg/dl - HIGH CARDIOVASCULAR RISK Normal [facility] Comment on above: Performed By: #### C KYLE COLMENARESDM, BNP #### [facility] [address] [address] [address] Briana Dillard LDL CALC NORMAL SEE BELOW Normal [facility] Comment on above: Result Comment: <100 mg/dl OPTIMAL 100 - 129 mg/dl NEAR OR ABOVE OPTIMAL 130 - 159 mg/dl BORDERLINE HIGH 160 - 189 mg/dl HIGH >190 mg/dl VERY HIGH Performed By: #### C MP, CMADM, BNP #### [facility] [address] [address] [address] Briana Dillard Triglyceride [Mass/Vol] 585 mg/dL Critically high <=150 [facility] Comment on above: Performed By: #### C MP, CMADM, BNP #### [facility] [address] [address] [address] Briana Dillard VLDL CALC 117.0 mg/dL Normal [facility] [place] Comment on above: Performed By: #### C MP, CMADM, BNP #### [facility] [address] [address] [address] Briana Dillard PROF 14(COMP METB)on 023 Albumin [Mass/Vol] 3.6 g/dL Normal 3.4-5.0 [facility] Comment on above: Performed By: #### L IPID, CMP, DLDL #### [facility] [address] [address] [address] Briana Dillard Albumin/Globulin [Mass ratio] 0.9 {ratio} Normal [facility] [place] Comment on above: Performed By: #### L IPID, CMP, DLDL #### [facility] [address] [place] [address] Dr. Briana Dillard ALP [Catalytic activity/Vol] 117 U/L Critically high 46-116 [facility] [place] Comment on above: Performed By: #### L IPID, CMP, DLDL #### [facility] [address] [place] [address] Dr. Briana Dillard ALT [Catalytic activity/Vol] 42 U/L Normal 14-59 [facility] [place] Comment on above: Performed By: #### L IPID, CMP, DLDL #### [facility] [address] [address] [address] Briana Dillard Anion gap [Moles/Vol] 15.4 mmol/L Normal [facility] Comment on above: Performed By: #### L IPID, CMP, DLDL #### [facility] [address] [place] [address] Dr. Briana Dillard AST [Catalytic activity/Vol] 29 U/L Normal 15-37 [facility] [place] Comment on above: Performed By: #### L IPID, CMP, DLDL #### [facility] [address] [place] [address] Dr. Briana Dillard Bilirubin [Mass/Vol] 0.4 mg/dL Normal 0.2-1.0 [facility] [place] Comment on above: Performed By: #### L IPID, CMP, DLDL #### [facility] [address] [address] [address] Briana Dillard Calcium [Mass/Vol] 10.2 mg/dL Critically high 8.5-10.1 [facility] Comment on above: Performed By: #### L IPID, CMP, DLDL #### [facility] [address] [address] [address] Briana Dillard Chloride [Moles/Vol] 100 mmol/L Normal 98-107 [facility] [place] Comment on above: Performed By: #### L IPID, CMP, DLDL #### [facility] [address] [place] [address] Dr. Briana Dillard CO2 [Moles/Vol] 27.3 mmol/L Normal 21.0-32.0 [facility] Comment on above: Performed By: #### L IPID, CMP, DLDL #### [facility] [address] [place] [address] Dr. Briana Dillard Creatinine [Mass/Vol] 1.40 mg/dL Critically high 0.55-1.02 [facility] [place] Comment on above: Performed By: #### L IPID, CMP, DLDL #### [facility] [address] [place] [address] Dr. Briana Dillard EGFR-AF OMANI 46 mL/min/1.73m2 Critically low >=60 [facility] [place] Comment on above: Performed By: #### L IPID, CMP, DLDL #### [facility] [address] [place] [address] Dr. Briana Dillard EGFR-NON AF OMANI 38 mL/min/1.73m2 Critically low >=60 [facility] [place] Comment on above: Performed By: #### L IPID, CMP, DLDL #### [facility] [address] [place] [address] Dr. Briana Dillard Globulin (S) [Mass/Vol] 3.9 g/dL Normal [facility] Comment on above: Performed By: #### L IPID, CMP, DLDL #### [facility] [address] [place] [address] Dr. Briana Dillard Glucose [Mass/Vol] 295 mg/dL Critically high 74-106 [facility] Comment on above: Performed By: #### L IPID, CMP, DLDL #### [facility] [address] [address] [address] Briana Dillard Potassium [Moles/Vol] 4.7 mmol/L Normal 3.5-5.1 [facility] [place] Comment on above: Performed By: #### L IPID, CMP, DLDL #### [facility] [address] [address] [address] Briana Dillard Protein [Mass/Vol] 7.5 g/dL Normal 6.4-8.2 [facility] Comment on above: Performed By: #### L IPID, CMP, DLDL #### [facility] [address] [place] [address] Dr. Briana Dillard Sodium [Moles/Vol] 138 mmol/L Normal 136-145 [facility] Comment on above: Performed By: #### L IPID, CMP, DLDL #### [facility] [address] [place] [address] Dr. Briana Dillard Urea nitrogen [Mass/Vol] 34.0 mg/dL Critically high 7.0-18 .0 [facility] [place] Comment on above: Performed By: #### L IPID, CMP, DLDL #### [facility] [address] [place] [address] Dr. Briana Dillard Urea nitrogen/Creatinine [Mass ratio] 24.3 mg/mg Normal [facility] Comment on above: Performed By: #### L IPID, CMP, DLDL #### [facility] [address] [place] [address] Dr. Briana Dillard UA RANDOM W/MICROSCOPICon BACTERIA TRACE Abnormal NONE SEEN [facility] Comment on above: Performed By: #### C MP, CMADM, BNP #### [facility] [address] [address] [address] Briana Dillard Bilirubin Ql (U) Negative Normal NEGATIVE [facility] Comment on above: Performed By: #### C MP, CMADM, BNP #### [facility] [address] [address] [address] Briana Dillard CAST NONE SEEN Normal NONE SEEN [facility] Comment on above: Performed By: #### C MP, CMADM, BNP #### [facility] [address] [address] [address] Briana Dillard Clarity (U) CLEAR Normal CLEAR [facility] Comment on above: Performed By: #### C MP, CMADM, BNP #### [facility] [address] [address] [address] Briana Dillard Color (U) LT. YELLOW Normal YELLOW [facility] Comment on above: Performed By: #### C MP, CMADM, BNP #### [facility] [address] [address] [address] Briana Dillard Crystals LM Nom (Urine sed) NONE SEEN Normal NONE SEEN [facility] Comment on above: Performed By: #### C MP, CMADM, BNP #### [facility] [address] [place] [address] Dr. Briana Dillard Epithelial cells LM Ql (Urine sed) MANY Abnormal NONE SEEN /RARE [facility] Comment on above: Performed By: #### C MP, CMADM, BNP #### [facility] [address] [place] [address] Dr. Briana Dillard Glucose Ql (U) Negative Normal NEGATIVE The [facility] Comment on above: Performed By: #### C MP, CMADM, BNP #### [facility] [address] [place] [address] Dr. Briana Dillard Hemoglobin Ql (U) Negative Normal NEGATIVE [facility] Comment on above: Performed By: #### C MP, CMADM, BNP #### [facility] [address] [address] [address] Briana Dillard Ketones Ql (U) Negative Normal NEGATIVE [facility] Comment on above: Performed By: #### C MP, CMADM, BNP #### [facility] [address] [place] [address] Dr. Briana Dillard LEUKOCYTES TRACE Abnormal NEGATIVE [facility] Comment on above: Performed By: #### C MP, CMADM, BNP #### [facility] [address] [address] [address] Briana Dillard MUCOUS NONE SEEN Normal NONE SEEN [facility] Comment on above: Performed By: #### C MP, CMADM, BNP #### [facility] [address] [address] [address] Briana Dillard Nitrite Ql (U) Negative Normal NEGATIVE [facility] Comment on above: Performed By: #### C MP, CMADM, BNP #### [facility] [address] [address] [address] Briana Dillard pH (U) 6.0 [pH] Normal 5-9 [facility] Comment on above: Performed By: #### C MP, CMADM, BNP #### [facility] [address] [place] [address] Dr. Briana Dillard RBC 0-2 Normal 0-2 [facility] Comment on above: Performed By: #### C MP, CMADM, BNP #### [facility] [address] [place] [address] Dr. Briana Dillard SPEC GRAVITY 1.010 Normal 1.005-<=1.025 [facility] Comment on above: Performed By: #### C MP, CMADM, BNP #### [facility] [address] [place] [address] Dr. Briana Dillard UA PROTEIN TRACE Normal NEGATIVE/ TRACE [facility] Comment on above: Performed By: #### C MP, CMADM, BNP #### [facility] [address] [place] [address] Dr. Briana Dillard Urobilinogen Qn (U) 0.2 {Samuel'U}/dL Normal 0.2 - 1. 0 [facility] Comment on above: Performed By: #### C MP, CMADM, BNP #### [facility] [address] [place] [address] Dr. Briana Dillard WBC 2-5 Abnormal NONE SEEN [facility] Comment on above: Performed By: #### C MP, CMADM, BNP #### [facility] [address] [address] [address] Briana Dillard URINE T PROTEIN CREAT RATIOo n 06-28-2022 Protein (U) [Mass/Vol] 30.3 mg/dL Critically high <=12.0 [facility] [place] Comment on above: Performed By: #### C MP, CMADM, BNP #### [facility] [address] [address] [address] Briana Dillard UR PROT CREAT RAT 0.80 Normal [facility] Comment on above: Performed By: #### C MP, CMADM, BNP #### [facility] [address] [address] [address] Briana Dillard URINE CREAT 38.11 mg/dL Normal 20.00-300.00 [facility] Comment on above: Performed By: #### C MP, CMADM, BNP #### [facility] [address] [place] [address] Dr. Briana Dillard POINT OF CARE GLUCOSEon 05-05 Glucose [Mass/Vol] 296 mg/dL Critically high 74-106 [facility] Comment on above: Performed By: #### C MP, CMADM, BNP #### [facility] [address] [place] [address] Dr. Briana Dillard POINT OF CARE GLUCOSEon 05-04 Glucose [Mass/Vol] 312 mg/dL Critically high 74-106 [facility] Comment on above: Performed By: #### C BC #### [facility] [address] [place] [address] Dr. Briana Dillard GLYCOHEMOGLOBIN A1Con 2021 ADA RECOMMENDATION SEE BELOW Normal [facility] Comment on above: Result Comment: ADA RECOMMENDED LIMIT 4.0 - 6.0 ADA THERAPEUTIC TARGET < 7.0 ACTION SUGGESTED > 7.0 Performed By: #### A 1C #### [facility] [address] [place] [address] Dr. Briana Dillard Glucose [Mass/Vol] 223 mg/dL Normal [facility] Comment on above: Performed By: #### A 1C #### [facility] [address] [place] [address] Dr. Briana Dillard HbA1c (Bld) [Mass fraction] 9.4 % Critically high 4.5-6.2 [facility] [place] Comment on above: Performed By: #### A 1C #### [facility] [address] [place] [address] Dr. Briana Dillard CBC AUTO DIFFon 11-29-2021 BASO # 0.1 103/ul Normal 0.0-0.1 [facility] [place] Comment on above: Performed By: #### C BC #### [facility] [address] [place] [address] Dr. Briana Dillard Basophils/100 WBC (Bld) 0.9 % Normal 0.2-2.0 [facility] Comment on above: Performed By: #### C BC #### [facility] [address] [place] [address] Dr. Briana Dillard EO # 0.3 103/ul Normal 0.0-0.7 [facility] [place] Comment on above: Performed By: #### C BC #### [facility] [address] [place] [address] Dr. Briana Dillard Eosinophils/100 WBC (Bld) 2.7 % Normal 0.9-7.0 [facility] [place] Comment on above: Performed By: #### C BC #### [facility] [address] [place] [address] Dr. Briana Dillard Erythrocyte distribution width (RBC) [Ratio] 15.8 % Critically high 11.0-15.0 [facility] [place] Comment on above: Performed By: #### C BC #### [facility] [address] [place] [address] Dr. Briana Dillard Hematocrit (Bld) [Volume fraction] 39.4 % Normal 36.0-48.0 [facility] [place] Comment on above: Performed By: #### C BC #### [facility] [address] [place] [address] Dr. Briana Dillard Hemoglobin (Bld) [Mass/Vol] 13.0 g/dL Normal 12.0-16.0 [facility] [place] Comment on above: Performed By: #### C BC #### [facility] [address] [address] [address] Briana Dillard IG # 0.12 10e3/ul Critically high 0.00-0.03 [facility] Comment on above: Performed By: #### C BC #### [facility] [address] [address] [address] Briana Dillard IG % 1.1 % Critically high 0.0-0.5 [facility] Comment on above: Performed By: #### C BC #### [facility] [address] [place] [address] Dr. Briana Dillard LYMPH # 2.7 103/ul Normal 1.2-3.8 [facility] [place] Comment on above: Performed By: #### C BC #### [facility] [address] [place] [address] Dr. Briana Dillard Lymphocytes/100 WBC (Bld) 25.6 % Normal 20.5-60.0 [facility] [place] Comment on above: Performed By: #### C BC #### [facility] [address] [place] [address] Dr. Briana Dillard MANUAL DIFF REQ NO Normal [facility] Comment on above: Performed By: #### C BC #### [facility] [address] [place] [address] Dr. Briana Dillard MCH (RBC) [Entitic mass] 30.9 pg Normal 26.7-34.0 [facility] [place] Comment on above: Performed By: #### C BC #### [facility] [address] [place] [address] Dr. Briana Dillard MCHC (RBC) [Mass/Vol] 33.0 g/dL Normal 29.9-35.2 [facility] [place] Comment on above: Performed By: #### C BC #### [facility] [address] [place] [address] Dr. Briana Dillard MCV (RBC) [Entitic vol] 93.6 fL Normal 81.0-99.0 [facility] Comment on above: Performed By: #### C BC #### [facility] [address] [address] [address] Briana Dillard MONO # 0.8 103/ul Normal 0.3-0.8 [facility] [place] Comment on above: Performed By: #### C BC #### [facility] [address] [place] [address] Dr. Briana Dillard Monocytes/100 WBC (Bld) 7.9 % Normal 1.7-12.0 [facility] Comment on above: Performed By: #### C BC #### [facility] [address] [place] [address] Dr. Briana Dillard NEUT # 6.6 103/ul Critically high 1.4-6.5 [facility] Comment on above: Performed By: #### C BC #### [facility] [address] [place] [address] Dr. Briana Dillard Neutrophils/100 WBC (Bld) 61.8 % Normal 43.0-75.0 [facility] [place] Comment on above: Performed By: #### C BC #### [facility] [address] [place] [address] Dr. Briana Dillard Platelet mean volume (Bld) [Entitic vol] 10.3 fL Normal 9.5-13.5 [facility] [place] Comment on above: Performed By: #### C BC #### [facility] [address] [place] [address] Dr. Briana Dillard PLT 234 103/ul Normal 150-450 [facility] Comment on above: Performed By: #### C BC #### [facility] [address] [place] [address] Dr. Briana Dillard RBC 4.21 106/ul Normal 4.20-5.40 [facility] Comment on above: Performed By: #### C BC #### [facility] [address] [place] [address] Dr. Briana Dillard WBC 10.6 103/ul Normal 4.0-11.0 [facility] [place] Comment on above: Performed By: #### C BC #### [facility] [address] [place] [address] Dr. Briana Dillard GLYCOHEMOGLOBIN A1Con 2021 ADA RECOMMENDATION SEE BELOW Normal [facility] Comment on above: Result Comment: ADA RECOMMENDED LIMIT 4.0 - 6.0 ADA THERAPEUTIC TARGET < 7.0 ACTION SUGGESTED > 7.0 Performed By: #### C BC #### [facility] [address] [address] [address] Briana Dillard Glucose [Mass/Vol] 220 mg/dL Normal [facility] Comment on above: Performed By: #### C BC #### [facility] [address] [address] [address] Briana Dillard HbA1c (Bld) [Mass fraction] 9.3 % Critically high 4.5-6.2 [facility] [place] Comment on above: Performed By: #### C BC #### [facility] [address] [place] [address] Dr. Briana Dillard LIPID PROFILEon 11-29-2021 CHOL-HDL RATIO NORM SEE BELOW Normal [facility] Comment on above: Result Comment: 3.3 - 4.4 LOW RISK 4.4 - 7.1 AVERAGE RISK 7.1 - 11.0 MODERATE RISK >11.0 HIGH RISK Performed By: #### C MP, CMADM, BNP #### [facility] [address] [place] [address] Dr. Briana Dillard Cholesterol [Mass/Vol] 135 mg/dL Normal <=200 Th [facility] Comment on above: Performed By: #### C MP, CMADM, BNP #### [facility] [address] [address] [address] Briana Dillard Cholesterol in HDL [Mass/Vol] 44 mg/dL Normal 40-60 [facility] [place] Comment on above: Performed By: #### C MP, CMADM, BNP #### [facility] [address] [address] [address] Briana Dillard Cholesterol in LDL [Mass/Vol] 60.2 mg/dL Normal [facility] [place] Comment on above: Performed By: #### C MP, CMADM, BNP #### [facility] [address] [address] [address] Briana Dillard Cholesterol.total/Choles terol in HDL [Mass ratio] 3.1 {ratio} Normal [facility] [place] Comment on above: Performed By: #### C MP, CMADM, BNP #### [facility] [address] [address] [address] Briana Dillard HDL NORMAL > or = 60 mg/dl - LOW CARDIOVASCULAR RISK <40 mg/dl - HIGH CARDIOVASCULAR RISK Normal [facility] [place] Comment on above: Performed By: #### C MP, CMADM, BNP #### [facility] [address] [address] [address] Briana Dillard LDL CALC NORMAL SEE BELOW Normal [facility] Comment on above: Result Comment: <100 mg/dl OPTIMAL 100 - 129 mg/dl NEAR OR ABOVE OPTIMAL 130 - 159 mg/dl BORDERLINE HIGH 160 - 189 mg/dl HIGH >190 mg/dl VERY HIGH Performed By: #### C MP, CMADM, BNP #### [facility] [address] [address] [address] Briana Dillard Triglyceride [Mass/Vol] 154 mg/dL Critically high <=150 [facility] [place] Comment on above: Performed By: #### C DARRIAN CMADM, BNP #### [facility] [address] [address] [address] Briana Dillard VLDL CALC 30.8 mg/dL Normal [facility] [place] Comment on above: Performed By: #### C MP, CMADM, BNP #### [facility] [address] [address] [address] Briana Dillard POINT OF CARE GLUCOSEon 11-02 Glucose [Mass/Vol] 271 mg/dL Critically high 74-106 [facility] Comment on above: Performed By: #### C BC #### [facility] [address] [address] [address] Briana Dillard Glucose [Mass/Vol] 180 mg/dL Critically high -106 [facility] Comment on above: Performed By: #### C MP, CMADM, BNP #### [facility] [address] [address] [address] Briana Dillard BNPon 11-28-2021 Natriuretic peptide B (Bld) [Mass/Vol] 86.0 pg/mL Normal <=900.0 [facility] [place] Comment on above: Performed By: #### C MP, CMADM, BNP #### [facility] [address] [place] [address] Dr. Briana Dillard CARDIAC TANIA ADMITon 022 CK [Catalytic activity/Vol] 52 U/L Normal 26-192 [facility] Comment on above: Performed By: #### C MP, CMADM, BNP #### [facility] [address] [place] [address] Dr. Briana Dillard CK.MB [Mass/Vol] 0.65 ng/mL Normal <=3.60 [facility] Comment on above: Performed By: #### C MP, CMADM, BNP #### [facility] [address] [place] [address] Dr. Briana Dillard HSTROP 4.8 pg/mL Normal 4.0-51.3 [facility] Comment on above: Result Comment: CUT- OFF POINTS HAVE BEEN ESTABLISHED BASED ON THE FOURTH UNIVERSAL DEFINITIONS OF MYOCARDIAL INFARCTION. THE UPPER REFERENCE LIMIT (URL) OF TROPONIN, DEFINED THE 99TH PERCENTILE OF cTnI DISTRIBUTION IN A REFERENCE POPULATION, HAS BEEN CONFIRMED THE DECISION THRESHOLD FOR [place] DIAGNOSIS. Performed By: #### C MP, CMADM, BNP #### [facility] [address] [place] [address] Dr. Briana Dillard YONIS 47 ng/mL Normal 9-82 [facility] Comment on above: Performed By: #### C MP, CMADM, BNP #### [facility] [address] [place] [address] Dr. Briana Dillard CBC AUTO DIFFon 11-28-2021 BASO # 0.1 103/ul Normal 0.0-0.1 [facility] [place] Comment on above: Performed By: #### C BC #### [facility] [address] [place] [address] Dr. Briana Dillard Basophils/100 WBC (Bld) 0.8 % Normal 0.2-2.0 [facility] Comment on above: Performed By: #### C BC #### [facility] [address] [address] [address] Briana Dillard EO # 0.2 103/ul Normal 0.0-0.7 [facility] Comment on above: Performed By: #### C BC #### [facility] [address] [place] [address] Dr. Briana Dillard Eosinophils/100 WBC (Bld) 1.4 % Normal 0.9-7.0 [facility] Comment on above: Performed By: #### C BC #### [facility] [address] [place] [address] Dr. Briana Dillard Erythrocyte distribution width (RBC) [Ratio] 15.8 % Critically high 11.0-15.0 [facility] [place] Comment on above: Performed By: #### C BC #### [facility] [address] [place] [address] Dr. Briana Dillard Hematocrit (Bld) [Volume fraction] 42.2 % Normal 36.0-48.0 [facility] [place] Comment on above: Performed By: #### C BC #### [facility] [address] [place] [address] Dr. Briana Dillard Hemoglobin (Bld) [Mass/Vol] 14.3 g/dL Normal 12.0-16.0 [facility] [place] Comment on above: Performed By: #### C BC #### [facility] [address] [place] [address] Dr. Briana Dillard IG # 0.14 10e3/ul Critically high 0.00-0.03 [facility] Comment on above: Performed By: #### C BC #### [facility] [address] [place] [address] Dr. Briana Dillard IG % 1.1 % Critically high 0.0-0.5 [facility] Comment on above: Performed By: #### C BC #### [facility] [address] [place] [address] Dr. Briana Dillard LYMPH # 1.9 103/ul Normal 1.2-3.8 [facility] Comment on above: Performed By: #### C BC #### [facility] [address] [place] [address] Dr. Briana Dillard Lymphocytes/100 WBC (Bld) 14.0 % Critically low 20.5-60.0 [facility] [place] Comment on above: Performed By: #### C BC #### [facility] [address] [place] [address] Dr. Briana Dillard MANUAL DIFF REQ NO Normal [facility] Comment on above: Performed By: #### C BC #### [facility] [address] [place] [address] Dr. Briana Dillard MCH (RBC) [Entitic mass] 31.2 pg Normal 26.7-34.0 [facility] Comment on above: Performed By: #### C BC #### [facility] [address] [place] [address] Dr. Briana Dillard MCHC (RBC) [Mass/Vol] 33.9 g/dL Normal 29.9-35.2 [facility] [place] Comment on above: Performed By: #### C BC #### [facility] [address] [place] [address] Dr. Briana Dillard MCV (RBC) [Entitic vol] 92.1 fL Normal 81.0-99.0 [facility] Comment on above: Performed By: #### C BC #### [facility] [address] [place] [address] Dr. Briana Dillard MONO # 1.1 103/ul Critically high 0.3-0.8 [facility] Comment on above: Performed By: #### C BC #### [facility] [address] [place] [address] Dr. Briana Dillard Monocytes/100 WBC (Bld) 8.0 % Normal 1.7-12.0 [facility] Comment on above: Performed By: #### C BC #### [facility] [address] [place] [address] Dr. Briana Dillard NEUT # 9.9 103/ul Critically high 1.4-6.5 [facility] Comment on above: Performed By: #### C BC #### [facility] [address] [place] [address] Dr. Briana Dillard Neutrophils/100 WBC (Bld) 74.7 % Normal 43.0-75.0 [facility] Comment on above: Performed By: #### C BC #### [facility] [address] [place] [address] Dr. Briana Dillard Platelet mean volume (Bld) [Entitic vol] 10.1 fL Normal 9.5-13.5 [facility] Comment on above: Performed By: #### C BC #### [facility] [address] [place] [address] Dr. Briana Dillard PLT 241 103/ul Normal 150-450 [facility] Comment on above: Performed By: #### C BC #### [facility] [address] [place] [address] Dr. Briana Dillard RBC 4.58 106/ul Normal 4.20-5.40 [facility] Comment on above: Performed By: #### C BC #### [facility] [address] [place] [address] Dr. Briana Dillard WBC 13.2 103/ul Critically high 4.0-11.0 [facility] Comment on above: Performed By: #### C BC #### [facility] [address] [place] [address] Dr. Briana Dillard CTA CHEST WO W [...] NADJA KEMP Date: 2021-11-28 13:10 Normal [facility] Covid-19 PCR (CVDTB)on 11-02 SARS-CoV-2 (COVID-19) RNA ANTOINE+probe Ql (Unsp spec) Not detected Normal NOT DETECTED [facility] Comment on above: Result Comment: When [...] for this test is supported by the Personal Development Coach of Health and Human Service's declaration that [...] By: #### C MP, CMADM, BNP #### [facility] [address] [address] [address] Briana Dillard D-DIMERon 11-28-2021 D-DIMER 0.77 mg/L FEU Critically high <=0.59 [facility] Comment on above: Performed By: #### P T, PTT, DDIM #### [facility] [address] [address] [address] Briana Dillard D-DIMER COMMENTS SEE BELOW Normal [facility] Comment on above: Result Comment: [...] By: #### P T, PTT, DDIM #### [facility] [address] [place] [address] Dr. Briana Dillard POINT OF CARE GLUCOSEon 11-02 Glucose [Mass/Vol] 213 mg/dL Critically high 74-106 [facility] Comment on above: Performed By: #### P OCGLUC #### [facility] [address] [place] [address] Dr. Briana Dillard Glucose [Mass/Vol] 255 mg/dL Critically high 74-106 [facility] Comment on above: Performed By: #### C KYLE COLMENARESDM, BNP #### [facility] [address] [place] [address] Dr. Briana Dillard PROF 14(COMP METB)on 022 Albumin [Mass/Vol] 3.4 g/dL Normal 3.4-5.0 [facility] Comment on above: Performed By: #### C KYLE COLMENARESDM, BNP #### [facility] [address] [place] [address] Dr. Briana Dillard Albumin/Globulin [Mass ratio] 0.9 {ratio} Normal [facility] Comment on above: Performed By: #### C MP CMADM, BNP #### [facility] [address] [place] [address] Dr. Briana Dillard ALP [Catalytic activity/Vol] 126 U/L Critically high 46-116 [facility] Comment on above: Performed By: #### C MP, CMADM, BNP #### [facility] [address] [place] [address] Dr. Briana Dillard ALT [Catalytic activity/Vol] 30 U/L Normal 14-59 [facility] Comment on above: Performed By: #### C MP, CMADM, BNP #### [facility] [address] [address] [address] Briana Dillard Anion gap [Moles/Vol] 13.6 mmol/L Normal [facility] Comment on above: Performed By: #### C MP, CMADM, BNP #### [facility] [address] [address] [address] Briana Dillard AST [Catalytic activity/Vol] 18 U/L Normal 15-37 [facility] Comment on above: Performed By: #### C MP, CMADM, BNP #### [facility] [address] [address] [address] Briana Dillard Bilirubin [Mass/Vol] 0.4 mg/dL Normal 0.2-1.0 [facility] Comment on above: Performed By: #### C MP, CMADM, BNP #### [facility] [address] [address] [address] Briana Dillard Calcium [Mass/Vol] 8.9 mg/dL Normal 8.5-10.1 [facility] Comment on above: Performed By: #### C MP, CMADM, BNP #### [facility] [address] [address] [address] Briana Dillard Chloride [Moles/Vol] 98 mmol/L Normal 98-107 [facility] Comment on above: Performed By: #### C MP, CMADM, BNP #### [facility] [address] [address] [address] Briana Dillard CO2 [Moles/Vol] 25.0 mmol/L Normal 21.0-32.0 [facility] Comment on above: Performed By: #### C MP, CMADM, BNP #### [facility] [address] [address] [address] Briana Dillard Creatinine [Mass/Vol] 1.58 mg/dL Critically high 0.55-1.02 [facility] Comment on above: Performed By: #### C MP, CMADM, BNP #### [facility] [address] [address] [address] Briana Dillard EGFR-AF OMANI 40 mL/min/1.73m2 Critically low >=60 [facility] Comment on above: Performed By: #### C MP, CMADM, BNP #### [facility] [address] [place] [address] Dr. Briana Dillard EGFR-NON AF OMANI 33 mL/min/1.73m2 Critically low >=60 [facility] Comment on above: Performed By: #### C MP, CMADM, BNP #### [facility] [address] [place] [address] Dr. Briana Dillard Globulin (S) [Mass/Vol] 4.0 g/dL Normal [facility] Comment on above: Performed By: #### C MP, CMADM, BNP #### [facility] [address] [place] [address] Dr. Briana Dillard Glucose [Mass/Vol] 386 mg/dL Critically high 74-106 [facility] Comment on above: Performed By: #### C MP, CMADM, BNP #### [facility] [address] [place] [address] Dr. Briana Dillard Potassium [Moles/Vol] 4.6 mmol/L Normal 3.5-5.1 [facility] Comment on above: Performed By: #### C MP, CMADM, BNP #### [facility] [address] [place] [address] Dr. Briana Dillard Protein [Mass/Vol] 7.4 g/dL Normal 6.4-8.2 [facility] Comment on above: Performed By: #### C MP, CMADM, BNP #### [facility] [address] [place] [address] Dr. Briana Dillard Sodium [Moles/Vol] 132 mmol/L Critically low 136-145 [facility] Comment on above: Performed By: #### C MP, CMADM, BNP #### [facility] [address] [place] [address] Dr. Briana Dillard Urea nitrogen [Mass/Vol] 23.0 mg/dL Critically high 7.0-18 .0 [facility] Comment on above: Performed By: #### C MP, CMADM, BNP #### [facility] [address] [place] [address] Dr. Briana Dillard Urea nitrogen/Creatinine [Mass ratio] 14.6 mg/mg Normal [facility] Comment on above: Performed By: #### C MP, CMADM, BNP #### [facility] [address] [place] [address] Dr. Briana Dillard PROTIMEon 11-28-2021 INR Coag (PPP) [Relative time] 1.01 {INR} Normal [facility] Comment on above: Performed By: #### P T, PTT, DDIM #### [facility] [address] [place] [address] Dr. Briana Dillard INR GUIDELINES SEE BELOW Normal [facility] Comment on above: Result Comment: LURDES RED INR: 2.0 - 3.0 CONDITIONS NOT LISTED BELOW 2.5 - 3.5 FOR PROSTHETIC HEART VALVE REPLACEMENT 2.5 - 3.5 RECURRENT THROMBOSIS Performed By: #### P T, PTT, DDIM #### [facility] [address] [place] [address] Dr. Briana Dillard PT Coag (PPP) [Time] 10.9 s Normal 9.0-11.6 [facility] Comment on above: Performed By: #### P T, PTT, DDIM #### [facility] [address] [place] [address] Dr. Briana Dillard PTTon 11-28-2021 aPTT Coag (Bld) [Time] 27.5 s Normal 22.3-36.2 [facility] Comment on above: Performed By: #### P T, PTT, DDIM #### [facility] [address] [place] [address] Dr. Briana Dillard TROPONIN, HIGH SENSITIVITYon 11-28-2021 HSTROP 5.5 pg/mL Normal 4.0-51.3 [facility] Comment on above: Result Comment: CUT- OFF POINTS HAVE BEEN ESTABLISHED BASED ON THE FOURTH UNIVERSAL DEFINITIONS OF MYOCARDIAL INFARCTION. THE UPPER REFERENCE LIMIT (URL) OF TROPONIN, DEFINED THE 99TH PERCENTILE OF cTnI DISTRIBUTION IN A REFERENCE POPULATION, HAS BEEN CONFIRMED THE DECISION THRESHOLD FOR [place] DIAGNOSIS. Performed By: #### C MP, CMADM, BNP #### [facility] [address] [place], [place] [address] Dr. Briana Dillard HSTROP 5.4 pg/mL Normal 4.0-51.3 [facility] Comment on above: Result Comment: CUT- OFF POINTS HAVE BEEN ESTABLISHED BASED ON THE FOURTH UNIVERSAL DEFINITIONS OF MYOCARDIAL INFARCTION. THE UPPER REFERENCE LIMIT (URL) OF TROPONIN, DEFINED THE 99TH PERCENTILE OF cTnI DISTRIBUTION IN A REFERENCE POPULATION, HAS BEEN CONFIRMED THE DECISION THRESHOLD FOR MN DIAGNOSIS. Performed By: #### C MP, CMADM, BNP #### [facility] [address] [place], [place] [address] Dr. Briana Dillard HSTROP 5.6 pg/mL Normal 4.0-51.3 [facility] Comment on above: Result Comment: CUT- OFF POINTS HAVE BEEN ESTABLISHED BASED ON THE FOURTH UNIVERSAL DEFINITIONS OF MYOCARDIAL INFARCTION. THE UPPER REFERENCE LIMIT (URL) OF TROPONIN, DEFINED THE 99TH PERCENTILE OF cTnI DISTRIBUTION IN A REFERENCE POPULATION, HAS BEEN CONFIRMED THE DECISION THRESHOLD FOR MN DIAGNOSIS. Performed By: #### C MP, CMADM, BNP #### [facility] [address] [place], [place] [address] Dr. Briana Dillard XR CHEST 1 Von [...] by: NADJA KEMP Date: 2021-11-28 12:46 Normal [facility] Tobacco Screening.on 022 Adult depression screening assessment Yes -[facility] [facility] [address] DO Work Phone: Tobacco use status CPHS a) Yes M -[facility] [facility] DO Work Phone: Tobacco Screening. Yes [facility] [facility] DO Work Phone: Tobacco Screening. 1-Several days [facility] DO Work Phone: Tobacco Screening. 0-Not at all [facility] [facility] 250 DO Work Phone: Tobacco Screening. Not difficult at all [facility] DO Work Phone: Echocardiogramon 05-20-2021 Echocardiography [facility] [address] [facility], [address] [place] [address] TRANSTHORACIC ECHOCARDIOGRAM REPORT Patient Name: VIDHYA IBARRA Reading Physician: [id number] Ruma Dawn MD Study Date: 05/20/2021 Referring [id number] SHASHI COTTRELL Physician: MRN/PID: [id number] PCP: Accession/Order#: [id number] [facility] Location: Date of : 1955 Fellow: Gender: F Nurse: Admit Date: Saw Superintendent: Clarisse Sumner [facility], T Height: 160.02 cm CC Report to: Weight: 89.36 kg Study Type: Echocardiogram BSA: 1.92 m2 Blood Pressure: 166 /94 mmHg Diagnosis/ICD: I51.7-Cardiomegaly; R06.00-Dyspnea, unspecified Indication: Obesity, Tobacco Abuse Procedure/CPT: Echo Complete w Full [id number] Study Detail: The following Echo studies were [...] 0.9 m/s (0.6-0.9m/s) PV Max P.1 mmHg [id number] Ruma Dawn MD Electronically signed on 05/24/2021 at 5:25:46 PM Final Normal [facility] Tobacco Screening.on 022 Fall risk assessment a) No falls within the last year [facility] 250 DO Work Phone: Tobacco use status CPHS a) Yes [facility] 250 DO Work Phone: Fall risk assessment a) No falls within the last year [facility] 250 DO Work Phone: Tobacco use status CPHS a) Yes [facility] y 250 DO Work Phone: Tobacco Screening. Yes [facility] y 250 DO Work Phone: Bld Gas Venon 12-02-2019 Allens Test N/A [facility] Comment on above: Result Comment: [facility] Department of Pulmonary Medicine [facility] [place] [address] Performed By: #### 1 [id number] #### [facility] [address] [place] [address] Called By: KATHY OCHOA [facility] Comment on above: Performed By: #### 1 [id number] #### [facility] [address] [place] [address] Called To: DR. CORINNE COFFMAN [facility] Comment on above: Performed By: #### 1 [id number] #### [facility] [address] [place] [address] Drawn by P[employer]RO [facility] Comment on above: Performed By: #### 1 [id number] #### [facility] [address] [place] [address] Dt/Tm Notified 17:42:00 F [facility] Comment on above: Performed By: #### 1 [id number] #### [facility] [address] [place] [address] pCO2 Guillaume 36.1 mmHg Low 38.0-50.0 [facility] Comment on above: Performed By: #### 1 [id number] #### [facility] [address] [place] [address] pH (BldV) 7.392 [pH] Normal 7.320-7.430 [facility] Comment on above: Performed By: #### 1 [id number] #### [facility] [address] [place] [address] Sample Site OTHER [facility] Comment on above: Performed By: #### 1 [id number] #### [facility] [address] [place] [address] Sample Type Venous [facility] Comment on above: Performed By: #### 1 [id number] #### [facility] [address] [place] [address] Physician Orderon 12-02-2019 Physician Order [id number]:127 Normal [facility] Vital Signs Date Time Vital Sign Value Performing Clinician Facility 08-05-2023 10:22-0400 Body temperature 97.2 [degF] MD Shaikh Mchugh Work Phone: [facility] 08-05-2023 10:22-0400 Body weight 89.81 kg MD Shaikh Mchugh Work Phone: [facility] 08-05-2023 10:22-0400 Diastolic blood pressure 75 mm[Hg] MD Shaikh Mchugh Work Phone: [facility] 08-05-2023 10:22-0400 Heart rate 71 /min MD Shaikh Mchugh Work Phone: [facility] 08-05-2023 10:22-0400 Respiratory rate 16 /min MD Shaikh Mchugh Work Phone: [facility] 08-05-2023 10:22-0400 SaO2% (BldA) [Mass fraction] 90 % MD Shaikh Mchugh Work Phone: [facility] 08-05-2023 10:22-0400 Systolic blood pressure 162 mm[Hg] MD Shaikh Mchugh Work Phone: [facility] 06-24-2023 10:07-0500 Body height 160.02 cm MD Shaikh Mchugh Work Phone: [facility] 06-24-2023 10:07-0500 Body mass index (BMI) [Ratio] 34.2 kg/m2 MD Shaikh Mchugh Work Phone: [facility] 06-24-2023 10:07-0500 Body temperature 97.2 [degF] MD Shaikh Mchugh Work Phone: [facility] 06-24-2023 10:07-0500 Body weight 87.54 kg MD Shaikh Mchugh Work Phone: [facility] 06-24-2023 10:07-0500 Diastolic blood pressure 96 mm[Hg] MD Shaikh Mchugh Work Phone: [facility] 06-24-2023 10:07-0500 Heart rate 78 /min MD Shaikh Mchugh Work Phone: [facility] 06-24-2023 10:07-0500 Respiratory rate 16 /min MD Shaikh Mchugh Work Phone: [facility] 06-24-2023 10:07-0500 SaO2% (BldA) [Mass fraction] 95 % MD Shaikh Mchugh Work Phone: [facility] 06-24-2023 10:07-0500 Systolic blood pressure 160 mm[Hg] MD Shaikh Mchugh Work Phone: [facility] 03-24-2023 13:06-0500 Body temperature 97.8 [degF] MD Shaikh Mchugh Work Phone: [facility] 03-24-2023 13:06-0500 Body weight 86.63 kg MD Shaikh Mchugh Work Phone: [facility] 03-24-2023 13:06-0500 Diastolic blood pressure 67 mm[Hg] MD Shaikh Mchugh Work Phone: [facility] 03-24-2023 13:06-0500 Heart rate 68 /min MD Shaikh Mchugh Work Phone: [facility] 03-24-2023 13:06-0500 Respiratory rate 16 /min MD Shaikh Mchugh Work Phone: [facility] 03-24-2023 13:06-0500 SaO2% (BldA) [Mass fraction] 98 % MD Shaikh Mchugh Work Phone: [facility] 03-24-2023 13:06-0500 Systolic blood pressure 130 mm[Hg] MD Shaikh Mchugh Work Phone: [facility] 03-24-2023 12:53-0500 Body height 160.02 cm MD Shaikh Mchugh Work Phone: [facility] 03-11-2023 09:20-0500 Body height 162.56 cm Alta Sharmaine Other [employer] Other 03-11-2023 09:20-0500 Body mass index (BMI) [Ratio] 32.78 kg/m2 Alta Sharmaine Other [employer] Other 03-11-2023 09:20-0500 Body temperature 96.3 [degF] Alta Sharmaine Other [employer] Other 03-11-2023 09:20-0500 Body weight 86.64 kg Alta Sharmaine Other [employer] Other 03-11-2023 09:20-0500 Diastolic blood pressure 77 mm[Hg] Alta Sharmaine Other [employer] Other 03-11-2023 09:20-0500 Respiratory rate 18 /min Alta Sharmaine Other [employer] Other 03-11-2023 09:20-0500 SaO2% (BldA) [Mass fraction] 95 % Alta Sharmaine Other [employer] Other 03-11-2023 09:20-0500 Systolic blood pressure 139 mm[Hg] Alta Sharmaine Other [employer] Other 12-08-2022 08:41-0400 Body height 160.02 cm Shaikh Brightwad Work Phone: [facility] 250 DO Work Phone: 12-08-2022 08:41-0400 Body mass index (BMI) [Ratio] 32.95 kg/m2 Dial Fawwad Work Phone: [facility] 250 DO Work Phone: 12-08-2022 08:41-0400 Body surface area Derived from formula 1.88 m2 Shaikh Brightwad Work Phone: [facility] [address] DO Work Phone: 12-08-2022 08:41-0400 Body weight 84.37 kg Shaikh Brightwad Work Phone: [facility] 250 DO Work Phone: 12-08-2022 08:41-0400 Diastolic blood pressure 60 mm[Hg] Dial Fawwad Work Phone: [facility] 250 DO Work Phone: 12-08-2022 08:41-0400 Heart rate 66 /min Shaikh Yaimawwad Work Phone: [facility] 250 DO Work Phone: 12-08-2022 08:41-0400 Systolic blood pressure 108 mm[Hg] Dial Fawwad Work Phone: [facility] 250 DO Work Phone: 07-01-2021 13:12-0500 Diastolic blood pressure 88 mm[Hg] Dial Fawwad Work Phone: [facility] 250 DO Work Phone: 07-01-2021 13:12-0500 Systolic blood pressure 138 mm[Hg] Dial Fawwad Work Phone: [facility] 250 DO Work Phone: 07-01-2021 09:20-0500 Diastolic blood pressure 100 mm[Hg] Dial Yaimawwad Work Phone: [facility] 250 DO Work Phone: 07-01-2021 09:20-0500 Systolic blood pressure 148 mm[Hg] Shaikh Brightwad Work Phone: [facility] 250 DO Work Phone: 07-01-2021 09:01-0500 Diastolic blood pressure 98 mm[Hg] Shaikh Brightwad Work Phone: [facility] 250 DO Work Phone: 07-01-2021 09:01-0500 Systolic blood pressure 168 mm[Hg] Shaikh Brightwad Work Phone: [facility] 250 DO Work Phone: 07-01-2021 08:51-0500 Body height 160.02 cm Shaikh Louisd Work Phone: [facility] 250 DO Work Phone: 07-01-2021 08:51-0500 Body mass index (BMI) [Ratio] 33.83 kg/m2 Shaikh Brightwad Work Phone: [facility] 250 DO Work Phone: 07-01-2021 08:51-0500 Body surface area Derived from formula 1.9 m2 Shaikh Brightwad Work Phone: [facility] 250 DO Work Phone: 07-01-2021 08:51-0500 Body weight 86.64 kg Shaikh Brightwad Work Phone: [facility] 250 DO Work Phone: 07-01-2021 08:51-0500 Diastolic blood pressure 104 mm[Hg] Shaikh Brightwad Work Phone: [facility] 250 DO Work Phone: 07-01-2021 08:51-0500 Heart rate 87 /min Shaikh Brightwad Work Phone: [facility] 250 DO Work Phone: 07-01-2021 08:51-0500 Systolic blood pressure 169 mm[Hg] Shaikh Brightwad Work Phone: [facility] 250 DO Work Phone: 07-01-2021 08:51-0500 6 1 Shaikh Louisd Work Phone: [facility] 250 DO Work Phone: Comment on above: PHQ-9 TS 05-24-2021 10:00-0500 Body height 162.56 cm Juan Gonzalez Other [employer] [facility] [employer] Other 05-24-2021 10:00-0500 Body mass index (BMI) [Ratio] 32.44 kg/m2 Juan Gonzalez Other [employer] Other 05-24-2021 10:00-0500 Body weight 85.73 kg Juan Gonzalez Other [employer] Other 05-20-2021 10:45-0500 60 1 Shaikh Yaimawwad Work Phone: [facility] [address] [place] Work Phone: Comment on above: [id number] 05-13-2021 11:59-0500 Diastolic blood pressure 104 mm[Hg] Dial Fawwad Work Phone: [facility] 250 DO Work Phone: 05-13-2021 11:59-0500 Systolic blood pressure 162 mm[Hg] Dial Fawwad Work Phone: [facility] 250 DO Work Phone: 05-13-2021 11:13-0500 Diastolic blood pressure 100 mm[Hg] Shaikh Yaimawwad Work Phone: [facility] 250 DO Work Phone: 05-13-2021 11:13-0500 Systolic blood pressure 170 mm[Hg] Dial Fawwad Work Phone: [facility] 250 DO Work Phone: 05-13-2021 11:12-0500 Body height 160.02 cm Shaikh Brightwad Work Phone: [facility] 250 DO Work Phone: 05-13-2021 11:12-0500 Body mass index (BMI) [Ratio] 34.9 kg/m2 Shaikh Yaimawwad Work Phone: [facility] 250 DO Work Phone: 05-13-2021 11:12-0500 Body surface area Derived from formula 1.92 m2 Shaikh Yaimawwad Work Phone: [facility] 250 DO Work Phone: 05-13-2021 11:12-0500 Body weight 89.36 kg Dial Fawwad Work Phone: [facility] 250 DO Work Phone: 05-13-2021 11:12-0500 Diastolic blood pressure 102 mm[Hg] Shaikh Brightwad Work Phone: [facility] 250 DO Work Phone: 05-13-2021 11:12-0500 Heart rate 88 /min Shaikh Brightwad Work Phone: [facility] 250 DO Work Phone: 05-13-2021 11:12-0500 Systolic blood pressure 172 mm[Hg] Shaikh Louisd Work Phone: [facility] 250 DO Work Phone: 05-13-2021 11:07-0500 Body height 160.02 cm Shaikh Louisd Work Phone: [facility] 250 DO Work Phone: 05-13-2021 11:07-0500 Body mass index (BMI) [Ratio] 34.9 kg/m2 Shaikh Louisd Work Phone: [facility] 250 DO Work Phone: 05-13-2021 11:07-0500 Body surface area Derived from formula 1.92 m2 Shaikh Brightwad Work Phone: [facility] 250 DO Work Phone: 05-13-2021 11:07-0500 Body weight 89.36 kg Shaikh Brightwad Work Phone: [facility] 250 DO Work Phone: 05-13-2021 11:07-0500 Heart rate 88 /min Shaikh Brightwad Work Phone: [facility] 250 DO Work Phone: 04-09-2021 11:40-0500 Body height 162.56 cm Juan Gonzalez Other [employer] Other 04-09-2021 11:40-0500 Body mass index (BMI) [Ratio] 32.44 kg/m2 Juan Gonzalez Other [employer] Other 04-09-2021 11:40-0500 Body weight 85.73 kg Juan Gonzalez Other [employer] Other 04-09-2021 11:40-0500 Diastolic blood pressure 72 mm[Hg] Juan Gonzalez Other [employer] Other 04-09-2021 11:40-0500 Systolic blood pressure 124 mm[Hg] Juan Gonzalez Other [employer] Other Encounters Encounter Date Encounter Type Care Provider Facility Start: 09-21-2023 End: 09-22-2023 ambulatory Radha Dunaway MD Facility: [facility] Start: 09-14-2023 End: 09-14-2023 ambulatory SHAIKH JEISON Not Available Start: 09-12-2023 End: 09-12-2023 ambulatory Alta Sharmaine Facility:[facility] Start: 09-12-2023 End: 09-12-2023 ambulatory MD Shaikh Mchugh Work Phone: [facility] Work Phone: Start: 09-12-2023 End: 09-12-2023 Patient encounter procedure MD Shaikh Mchugh Work Phone: [facility] [place] Work Phone: Start: 08-05-2023 ambulatory Alta Sharmaine Facility:[facility] Start: 08-05-2023 End: 08-05-2023 ambulatory MD Shaikh Mchugh Work Phone: [facility] Work Phone: Start: 08-05-2023 End: 08-05-2023 Patient encounter procedure MD Shaikh Mchugh Work Phone: [facility] Amb[facility] Work Phone: Start: 08-05-2023 Registered Recurring MD Shaikh [facility]ugh [facility] Work Phone: Start: 07-13-2023 End: 07-13-2023 ambulatory SHAIKH JEISON Not Available Start: 07-10-2023 End: 07-10-2023 ambulatory EZRA VILLA V Not Available Start: 07-03-2023 End: 07-03-2023 ambulatory EZRA VILLA V Not Available Start: 06-24-2023 End: 06-24-2023 ambulatory MD Shaikh Mchugh Work Phone: [facility] Work Phone: Start: 06-24-2023 End: 06-24-2023 Patient encounter procedure MD Shaikh Mchugh Work Phone: [facility] Ambulatory Work Phone: Start: 06-24-2023 Registered Recurring MD Shaikh Mchugh [facility] Work Phone: Start: 06-01-2023 End: 06-02-2023 ambulatory Radha Dunaway MD Facility:[facility] Start: 05-11-2023 End: 05-12-2023 ambulatory Radha Dunaway MD Facility:[facility] Start: 04-13-2023 Telephone encounter Neena Kamara [facility] Start: 04-13-2023 End: 04-13-[address] [facility] [employer] Other Start: 04-06-2023 End: 04-07-2023 ambulatory Radha Dunaway MD Facility:[facility] Start: 03-24-2023 End: 03-24-2023 ambulatory MD Shaikh Mchugh Work Phone: [facility] Work Phone: Start: 03-24-2023 End: 03-24-2023 Registered Recurring MD Shaikh Mchugh Work Phone: [facility] Work Phone: Start: 03-11-2023 End: 03-11-2023 ambulatory Alta Sharmaine Other [employer] [facility] [employer] Other Start: 03-11-2023 Office outpatient vi sit 25 minutes Alta Sharmaine [facility] [place] Start: 03-04-2023 End: 03-04-2023 ambulatory Alta Sharmaine Facility:[facility] Start: 03-04-2023 End: 03-04-2023 ambulatory MD Shaikh Mchugh Work Phone: [facility] Work Phone: Start: 03-04-2023 End: 03-04-2023 Patient encounter procedure MD Shaikh Mchugh Work Phone: [facility] [place] Work Phone: Start: 12-08-2022 Office outpatient vi sit 15 minutes Shaikh Jeison Work Phone: [facility] 250 DO Work Phone: Start: 12-08-2022 Patient encounter procedure Shaikh Jeison Work Phone: [facility] 250 DO Work Phone: Start: 12-08-[address] Shashi Cottrell II Facility: Start: 11-10-2022 End: 11-11-2022 ambulatory Radha Dunaway MD Facility:[facility] Start: 10-16-2022 ambulatory SHAIKH Gurjit MCHUGH Facilit y:[facility] Start: 07-17-2022 End: 07-18-2022 ambulatory SHAIKH Gurjit MCHUGH Facility:[facility] Start: 06-29-2022 Rx Renewal Shaikh Jeison Work Phone: [facility] 250 DO Work Phone: Start: 06-28-2022 End: 06-29-2022 ambulatory SHAIKH Gurjit MCHUGH Facility:[facility] Start: 06-12-[address] ELIGIO HODGE . Faci lity:[facility] Start: 05-27-2022 End: 05-27-[address] ELIGIO HODGE . Facility:[facility] Start: 05-13-2022 End: 05-13-[address] ELIGIO HODGE . Facility:[facility] Start: 04-10-2022 End: 04-11-[address] ELIGIO HODGE . Facility:[facility] Start: 02-17-2022 End: 02-18-2022 ambulatory SHAIKH Gurjit MCHUGH Facility:[facility] Start: 01-10-[address] Shashi Cottrell II Facility: Start: 01-09-2022 End: 01-10-2022 ambulatory SHAIKH Gurjit MCHUGH Facility:[facility] Start: 11-28-2021 End: 11-29-2021 ambulatory SHAIKH Gurjit MCHUGH Facility:[facility] Start: 10-17-2021 End: 10-18-2021 ambulatory EVA ROSEN . Facility:[facility] Start: 07-01-2021 AUDIT Shaikh Jeison Work Phone: [facility] 250 DO Work Phone: Start: 05-28-2021 FUV, Provider: Shashi Cottrell, Status: Pen, Time: 10:50 AM Shaikh Yaimawaleska Work Phone: [facility] 250 DO Work Phone: Start: 05-26-2021 Chart Update Shaikh Louisd Work Phone: [facility] 250 DO Work Phone: Start: 05-24-2021 End: 05-24-2021 ambulatory Juan Gonzalez Other [place] [employer] Other Start: 05-24-2021 Office outpatient vi sit 15 minutes Juan Gonzalez [facility] Neurosurgery Start: 05-20-2021 Patient encounter procedure Shaikh Jeison Work Phone: [facility] [address] [place] Work Phone: Start: 05-13-2021 Office consultation new/estab patient 60 min Shaikh Jeison Work Phone: [facility] 250 DO Work Phone: Start: 04-09-2021 End: 04-09-2021 ambulatory Juan Gonzalez Other [facility] [employer] Other Start: 04-09-2021 Office outpatient ne w [...] Activity Detail Author Start: 06-24-2023 Patient referral [facility] Work Phone: Start: 03-04-2023 Bacteria identified in Urine by Culture [facility] Start: 12-12-2022 FUV, Provider: Shashi Cottrell, Status: Pen, Time: 3:20 PM FUV, Provider: Shashi Cottrell, Status: Pen, Time: 3:20 PM -[facility] 250 DO Work Phone: Start: 01-10-2022 FUV, Provider: Shashi Cottrell, Status: Pen, Time: 2:00 PM FUV, Provider: Shashi Cottrell, Status: Pen, Time: 2:00 PM -[facility] 250 DO Work Phone: Start: 07-01-2021 FUV, Provider: Shashi Cottrell, Status: Pen, Time: 8:40 AM FUV, Provider: Shashi Cottrell, Status: Pen, Time: 8:40 AM -[facility] [place] Work Phone: Start: 05-28-2021 FUV, Provider: Shashi Cottrell, Status: Pen, Time: 10:50 AM FUV, Provider: Shashi Cottrell, Status: Pen, Time: 10:50 AM -[facility] 250 DO Work Phone: Start: 05-20-2021 ECHO, Provider: JACEY ALDRIDGEI ULTRASOUND 01,[id number], Status: Pen, Time: 10:45 AM ECHO, Provider: JACEY HHVI ULTRASOUND 01,[id number], Status: Pen, Time: 10:45 AM [facility] 250 DO Work Phone: MG Breast - bilatera l Screening [facility] Patient referral [facility] Work Phone: [facility] Immunizations Immunization Date Immunization Notes Care Provider Yaima saul 10-20-2020 pneumococcal polysaccharide vaccine, 23 valent Shaikh Jeison Work Phone: [facility] 250 DO Work Phone: 08-23-2020 COVID-19 Vaccine Mod jasson - Documentation Purposes Only Juan Gonzalez Other [facility] 05-04-2020 pneumococcal conjuga te vaccine, 13 valent Shaikh Jeison Work Phone: [facility]RGR 250 DO Work Phone: Comment on above: Series: 02-03-2020 Influenza, injectabl e, Madin Ray Canine Kidney, preservative free, quadrivalent Shaikh Jeison [facility] Work Phone: 02-09-2019 Vaxneuvance 0.5 ML Intramuscular Suspension Prefilled Syringe Shaikh Jeison Work Phone: [facility] Multistat DO Work Phone: 04-05-2017 influenza, injectabl e, quadrivalent, preservative free Shaikh Jeison Work Phone: [facility] 250 DO Work Phone: Payers Date Payer Category Payer Self-pay [id number] 2022 Medicaid [id number] 2022 Private Health Insurance 1959 Medicare [id number] 2.16. [id number] 1955 Unknown [id number] 2.16.84 0.1.818593.3.579.2.593 1955 Unknown [id number] 2.16.84 0.1.466405.3.579.2.593 1955 Unknown [id number] 2.16.84 0.1.155738.3.579.2.593 1955 Unknown [id number] 2.16.84 0.1.404865.3.579.2.593 1955 Unknown [id number] 2.16.84 0.1.301787.3.579.2.593 1955 Unknown [id number] 2.16.84 0.1.620789.3.579.2.593 1955 Unknown [id number] 2.16.84 0.1.850478.3.579.2.593 1955 Unknown [id number] 2.16.84 0.1.448293.3.579.2.593 1955 Unknown [id number] 2.16.84 0.1.899075.3.579.2.593 1955 Unknown [id number] 2.16.84 0.1.090326.3.579.2.593 1955 Unknown [id number] 2.16.84 0.1.048180.3.579.2.593 1955 Unknown [id number] 2.16.84 0.1.093961.3.579.2.593 1955 Unknown [id number] 2.16. 840.1.110049.3.579.2.356 1955 Unknown [id number] .. 840.1.524964.3.579.2.356 1955 Unknown [id number] 2.16.84 0.1.646567.3.579.2.1259 1955 Unknown [id number] 2.16.84 0.1.055471.3.579.2.1259 1955 Unknown [id number] 2.16.84 0.1.949055.3.579.2.1259 1955 Unknown [id number] 2.16.84 0.1.223698.3.579.2.1259 1955 Unknown [id number] 2.16.840 .1.404438.3.579.2.1259 1955 Unknown [id number] 2.16. 840.1.025949.3.579.2.196 1955 Unknown [id number] 2.16. 840.1.404855.3.579.2.196 1955 Unknown [id number] 2.16. 840.1.981881.3.579.2.196 1955 Unknown [id number] 2.16. 840.1.700478.3.579.2.196 1955 Unknown [id number] 2.16. 840.1.292351.3.579.2.196 Medicare [id number] 2.1 6.840.1.569746.19 Unknown Unknown [id number] 2.16.8 40.1.895407.3.579.2.531 Unknown [id number] 2.16.8 40.1.386127.3.579.2.531 Unknown [id number] 2.16.8 40.1.845266.3.579.2.531 Social History Date Type Detail Facility Daily caffeine consumption Daily caffeine consumption [facility] 250 DO Work Phone: Comment on above: 2-3 cups of coffee d aily.; 1/2 pack daily.; Sex Assigned At Sex Assigned At [facility] [employer] Other Start: 01-24-2021 End: 08-05-2023 Tobacco smoking status NHIS Smoker (finding) [facility] Start: 1955 Sex Assigned At Female F [facility] Functional Status Date Assessment Result Facility 07-01-2021 PHQ-9 [id number] Mild (5-9) [facility] 250 DO Work Phone: Clinical Notes 12-03-2019 [...] I have prescribed oral magnesium once daily. [employer] Other 03-16-2023 NotePAIN MANAGEMENT CONSULTATION CONSULTATION DATE: [...] in three months' time unless otherwise indicated.[id number] NoteCONSULTATION CONSULTATION DATE: 04/10/2022 HISTORY OF PRESENT [...] weeks ago, and she completed those in [place]. She is continuing her home exercises as [...] thereafter. Patient does agree with this plan.[id number] NoteCONSULTATION CONSULTATION DATE: 01/09/2022 HISTORY OF PRESENT [...] weeks. Patient prefers to do this in [place]. She will be followed up in the office in three months' time and was encouraged to take a multivitamin daily. Patient agrees with this plan of care. [facility] [id number] NoteCONSULTATION CONSULTATION DATE: 10/17/2021 HISTORY OF PRESENT [...] in three months' time unless otherwise indicated. [facility] Signed and Approved by: EVA ROSEN . 10/30/2021 16:23:00[facility]06-16-2022 NoteCONSULTATION PROCEDURE DATE:10/17/2021 PREOPERATIVE DIAGNOSIS: Bilateral lumbar [...] will be followed up in the office. IF Signed and Approved by: EVA ROSEN . 10/30/2021 16:23:00[facility]01-21-2022 Evaluation note* Encounter Date Diagnosis Assessment Notes [...] at this point no intervention is needed. [employer] Other 12-07-2021 Evaluation note* Encounter Date Diagnosis [...] - M50.123) Apr, Cardiomegaly (ICD-10 - I51.7) [employer] Other 01-15-2021 History of Present illness Narrative* [...] she will follow-up after testing is completed [facility] Work Phone: [phone]) 629-196401-10-2021 History of Present illness Narrative* Patient is [...] she will follow-up after testing is completed [facility] 250 DO Work Phone: 1(259) 397-673608-01-2020 History general Narrative - Reported* Type Description Date Medical History TYPE II DIABETES Medical History HYPERTENSION Medical History ENLARGE HEART Surgical History CHOLECYSTECTOMY Hospitalization History PNEUMONIA 12/2019 [employer] Other chief complaint Narrative - ReportedLINCRISTINA IBARRA is being seen for a consultation for cardiomegaly.[facility] 250 DO Work Phone: Chief complaint Narrative - ReportedVIDHYA IBARRA is being seen for a consultation for cardiomegaly.[facility] Work Phone: Consult note Author [facility] March 25, 2023 10:10am Note Date/Time March 24, 2023 1:49pm [facility] [address] Hem/Onc Consult Note - OP Signed Patient: Vidhya Ibarra MR#: [id number] : 1955 Acct:[id number] Age/Sex: 67 / F Type: REG RCR [...] any worse than it does when touched. PMFSH - Medical History Medical History: Medical History [...] for coordination of care (as documented) and afuv-pl-celg counseling of patient and/or family. Dictated By: Yakelin Staley APRN DD/ 1349 Signed By: <Electronically signed by JOSE Staley> 03/25/23 1010 [facility] Work Phone: Evaluation noteNo assessment information available [facility] Work Phone: Evaluation noteNo InformationNort [employer] Other Evaluation note* Diagnosis Onset Date Resolution Status Leukocytosis acute Breast nodule acute Leukocytosis acute Recurrent boils acute Yeast infection acute [facility] Work Phone: Evaluation note* Diagnosis Onset Date Resolution Status Breast nodule acute Leukocytosis acute Recurrent boils acute Yeast infection acute Leukocytosis acute Breast nodule acute Leukocytosis acute Recurrent boils acute Yeast infection acute [facility] Work Phone: History of Present illness Narrative* [...] weight loss and more importantly smoking cessation. [facility] 250 DO Work Phone: Hospital Discharge instructionsAmbulatory Orders* Referral to General Surgery Time Frame: 06/24/23, Location: None Selected [facility] Work Phone: Progress note Author Rebeca Ashraf [facility] June 24, 2023 10:45am Note Date/Time June 24, 2023 10:07am [facility] [place] [address] Cancer Center Note Signed Patient: Vidhya Ibarra MR#: [id number] : 1955 Acct:[id number] Age/Sex: 67 / F Type: REG AMB [...] % (Auto) 74.3 Lymph % (Auto) 18.0 [place] % (Auto) 5.2 Eos % (Auto) 1.7 Baso % (Auto) 0.8 Nucleat RBC Rel Count 0.1 Neut # (Auto) 10.6 H Lymph # (Auto) 2.6 [place] # (Auto) 0.7 Eos # (Auto) 0.2 [...] signed by Rebeca Ashraf MD> 06/24/23 1045 [facility] Work Phone: Summary Purpose Family History No [...] Treat Diagnosis 1 Cardiomegaly (I51.7) Referral Organization [facility] urosurgery Referring Provider First Name Juan Referring Provider Last Name Carlos Referring Provider Specialty Neurologica l Surgery Referred Organization [facility] enter Referred Provider Jason Johnson Referred Address [address] [facility] [address] [place] [address] Referred Provider Specialty Cardiac Surg nicholas Referral Priority Routine General Notes Neena Estevez 021 08:49:37 AM >Received today and waiting for office notes to be lockedNeena Estevez 04/16/2021 03:27:00 PM >[facility] office request us to fax the referral to them and they will review and call patient to schedule their appointment. Referral was fax Reason Evaluate and Treat Diagnosis 1 Cervical disc disord er at C5-C6 level with radiculopathy (M50.122) Referral Organization [facility] urosurgery Referring Provider First Name Juan Referring [...] follow up Le ukocytosis Leukocytosis Follow Up Chronic Kidney Disease Reason for Visit Breast nodule Leukocytosis Recurrent boils Yeast infection Leukocytosis Breast nodule Leukocytosis Recurrent boils Yeast infection Additional Source Comments INFORMATION SOURCE (unrecogn ized section and content) DATE CREATED AUTHOR 12/03/2019 [facility] DATE CREATED AUTHOR AUTHOR'S ORGANIZ ATION 05/26/2021 [facility] DATE CREATED AUTHOR AUTHOR'S ORGANIZ ATION 10/10/2022 [facility] DATE CREATED AUTHOR AUTHOR'S ORGANIZ ATION 12/08/2022 [facility] DATE CREATED AUTHOR AUTHOR'S ORGANIZ ATION 12/09/2022 [employer] DATE CREATED AUTHOR AUTHOR'S ORGANIZ ATION 09/15/2023 [facility] EPIC DATE CREATED AUTHOR AUTHOR'S ORGANIZ ATION 09/25/2023 [facility] DATE CREATED AUTHOR AUTHOR'S ORGANIZ ATION 09/27/2023 [facility] REASON FOR VISIT (unrecogniz ed section and [...] 2023 Team Status: Active Member Role Status Tena Mchugh MD Primary Care Provider Active Start: August 05, 2023 Yakelin Staley APRN Active Start: August 05, 2023 Alta Schmid MD Referring Provider Active Start : August 05, 2023 Rebeca Ashraf MD Attending Provider Active Start: August 05, 2023 Team Status: Inactive Member Role Status Tena Mchugh MD Primary Care Provider Active Start: August 05, 2023 End: August 05, 2023 Rebeca Ashraf MD Attending Provider Active Start: August 05, 2023 End: August 05, 2023 Team Status: Active Member Role Status Tena Mchugh MD Primary Care Provider Active Start: June [...] Acti aaron Schmid MD Referring Provider Active Team Status: Inactive Member Role Status Tena Mchugh MD Primary Care Provider Active Start: September 12, 2023 End: September 12, 2023 Alta Schmid MD Attending Provider Active Start : September 12, 2023 End: September 12, 2023 Goals (unrecognized section and content) Goals may [...] BE BASED ON THE PRIMARY CLINICAL RECORDS. [facility] [employer] ([email or web address] [facility]. provides no warranty or guarantee of the accuracy or completeness of information in this document.
[2023-10-05 07:54] LABS: Glucometer 146 mg/dL (74-106)
[2023-10-05 07:59] VITALS: BP 148/88; PULSE 62; TEMP 36.2; O2SAT 96
[2023-10-05] MEDS: IOHEXOL 240 MG/ML - 10 ML VIAL INJ (08:43)
[2023-10-05 08:44] VITALS: BP 110/72; PULSE 60; O2SAT 95
[2023-10-05] MEDS: LIDOCAINE HCL 2% PF 100 MG/5 ML VIAL INJ (08:44)
[2023-10-05] MEDS: BUPIVACAINE HCL 0.25% PF 25 MG/10 ML VIAL INJ (08:44)
[2023-10-05] MEDS: TRIAMCINOLONE ACETONIDE 40 MG/ML VIAL INJ (08:44)
--- NOTE | 2023-10-05 08:45 | P.ON_ITS ---
Date of procedure: 10/05/23 Pre-op diagnosis: Left sacroiliitis Post-op diagnosis: same as pre-op Procedure: Procedure: Left sacroiliac joint injection Medications: Bupivacaine 0.25% 3cc, kenalog 40mg After informed consent was obtained, the patient was brought to the medical pro cedure unit and placed in the prone position, when a timeout was completed verifying correct patient, procedure, site, positioning, implant, and/or special equipment.? The skin overlying the area was prepped and draped in standard sterile fashion using alcohol.? A 25-gauge needle was inserted towards the left sacroiliac joint under direct fluoroscopic imaging.? Needle tip was advanced until the joint was encountered.? We instilled a total of 2 mL of solution.? Postoperatively needles were removed.? The patient tolerated the procedure well without complication.? The patient reported reduction in pain symptoms postoperatively. Anesthesia: Local Surgeon: Radha Dunaway Pathology: none sent Condition: stable Disposition: no change
[2023-10-05 08:46] VITALS: BP 125/86; PULSE 62; O2SAT 94
== END 2023-10-05 08:50 | disposition home or self-care (01) ==
LOC: SURGOUT 07:28
PROVIDERS: PCP Internal Medicine; Visit Provider Anesthesiology
DX: M46.1 Sacroiliitis, not elsewhere classified (principal); Z79.84 Long term (current) use of oral hypoglycemic drugs; Z79.4 Long term (current) use of insulin
CPT/HCPCS: 27096; 36415; 82948; Q9966

== ENCOUNTER 2023-10-15 13:28 | Outpatient (OUT) | payer MEDICARE, SELFPAY ==
--- NOTE | 2023-10-15 13:45 | P.CN_ITS ---
Consult Note: HPI Data of Consult Patient: known to practice within the last 3 years Consult date: 04/16/23 Requesting Physician: Renate Flores NP Primary Care Provider: Shaikh Jeison MD Consult Narrative Reason for consult: f/u Narrative: Vidhya Pillai a pleasant 67 year old female presents for evaluation and jewel gement of chronic back pain. Pain today 0/10, pain increases to 8/10 stabbing with standing walking ADLS and activity. Reports mild benefit from gabapentin 600mg TID. Patient continues to require percocet 5-325mg BID PRN for pain to improve functional ability, denies side effefcts. Recently underwent left L4-5 L5-S1 TFESI and left nerve block of SIJ with 40% improvement in pain and functional ability per patient. Patient reports left leg still feels different and heavy. cc:: CC: Renate Flores NP Review of Systems ROS Status of ROS 10 or more systems reviewed and unremark able except as noted in history and below Musculoskeletal Reports: back pain and extremity pain PFSH PFSH Medical History Osteoarthritis ?M19.90 - Unspecified osteoarthritis, unspecified site (ICD-10) Low back pain ?M54.50 - Low back pain, unspecified (ICD-10) Numbness and tingling ?R20.0 - Anesthesia of skin (ICD-10) ?R20.2 - Paresthesia of skin (ICD-10) Diabetes ?E11.9 - Type 2 diabetes mellitus without complications (ICD-10) Smoker ?F17.200 - Nicotine dependence, unspecified, uncomplicated (ICD-10) COPD (chronic obstructive pulmonary disease) ?J44.9 - Chronic obstructive pulmonary disease, unspecified (ICD-10) Angina at rest ?I20.8 - Other forms of angina pectoris (ICD-10) Hypertension ?I10 - Essential (primary) hypertension (ICD-10) Surgical History History of cholecystectomy ?Z90.49 - Acquired absence of other specified parts of digestive tract (ICD- 10) S/P dilatation and curettage ?Z98.890 - Other specified postprocedural states (ICD-10) H/O cardiac catheterization ?Z98.890 - Other specified postprocedural states (ICD-10) Meds Home Medications and Allergies Home Medications ?Medication ?Instructions ?Recorded ?Confirmed ?Type gabapentin 600 mg tablet 600 mg PO TID 10/16/22 10/05/23 History glipizide 10 mg tablet 10 mg PO BID 10/16/22 10/05/23 History insulin NPH isoph U-100 human 100 20 unit subcut BID 10/16/22 10/05/23 History unit/mL subcutaneous suspension (Novolin N NPH U-100 Insulin isophane) metoprolol tartrate 50 mg tablet 50 mg PO BID 10/16/22 10/05/23 History paroxetine HCl 10 mg tablet 10 mg PO DAILY 10/16/22 10/05/23 History pramipexole 0.25 mg tablet 0.25 mg PO DAILY 10/16/22 10/05/23 History (Mirapex) trazodone 150 mg tablet 150 mg PO BEDTIME 10/16/22 10/05/23 History atorvastatin 40 mg tablet (Lipitor) 40 mg PO DAILY 04/16/23 10/05/23 History bumetanide 0.5 mg tablet 0.5 mg PO DAILY 04/16/23 10/05/23 History magnesium oxide 400 mg (241.3 mg mg 06/01/23 History magnesium) tablet oxycodone-acetaminophen 5 mg-325 1 tab PO BID PRN pain #60 tabs 08/05/23 10/05/23 Rx mg tablet (Percocet) allopurinol 200 mg tablet 200 mg PO DAILY 09/21/23 10/05/23 History oxycodone-acetaminophen 5 mg-325 1 tab PO BID PRN pain #60 tabs 10/06/23 Rx mg tablet (Percocet) Allergies Allergy/AdvReac Type Severity Reaction Status Date / Time prednisone Allergy Intermediate Rash Verified 10/05/23 08:00 Exam Constitutional Documenting provider has reviewed patient's vital signs: yes Common normals: no apparent distress, oriented x3, healthy appearing, alert and well nourished General appearance: cooperative Orientation/consciousness: Yes awake, Yes oriented to person, Yes oriented to place and Yes oriented to time HENMT Common normals: normocephalic, hearing grossly normal bilaterally and moist oral mucous membranes Head and scalp: normocephalic Eye Common normals: PERRL Pupil: PERRL Neck & C-Spine Common normals: full ROM General: normal visual inspection Chest Common normals: inspection of chest normal Respiratory Common normals: normal respiratory effort, no retractions and no use of accessory muscles Effort & inspection: able to speak in complete sentences and symmetric chest mov ement Back & Pelvis Common normals: thoracic and lumbar spine normal to inspection and straight leg raise negative bilaterally Lumbar spine/lower back: ROM limited, pain with ROM and straight leg raise negative bilaterally Sacroiliac joints: SI joints normal Other: bilateral facet loading mild on left decreased sensation to left L4,5,S1 pattern strength 4/5 in BLE Extremity Common normals: normal to inspection and full ROM Neuro Common normals: oriented x3, CN's II-XII intact bilaterally, moves all extremities, no focal motor deficits, no sensory deficits noted and deep tendon reflexes 2+ bilaterally Sensorium/orientation: alert Motor exam: strength 5/5 throughout and no movement abnormalities noted Psych Common normals: mental status grossly normal, thought process normal, cooperative, affect normal, speech normal and activity/motor behavior normal Speech: normal speech Thought process: normal thought process Results Additional Findings Additional findings: If on a controlled substance or opioids, I have checked an [place] report on this patient and there are no aberrancies noted in the prescribing history.??If on a controlled substance or opioid a drug screen was completed and reviewed within the last year, and if there has not been a drug screen completed we ordered one today to monitor higher risk, state monitored pain medication use. As part of providing excellent, safe, comprehensive care, the following was completed at our patient's visit: 1. A medication reconciliation and review to ensure accurate knowledge of current/active medications, including asking our patients to inform us about any [id number] medications or herbal remedies/nutritional supplements/alternative remedies. 2. A review to specifically ensure our patients have had annual screening for screening for depression, screening for tobacco use, and screening for unhealthy alcohol use. For concerning screenings had a discussion with the patient, provided patient education, and recommended follow-up with primary care provider when appropriate. If patient noted with a risk of falling, they received education on strength, gait, and balance training to prevent future risk of falling. Assessment and Plan Assessment and Plan (1) Lumbar spondylosis: Assessment and Plan: The patient has had over 3 months of moderate to severe low back pain with functional impairment and inadequate response to conservative care including NSAIDS (unless there are contraindication such as concurrent blood thinners), multiple oral or topical pain medications, and home exercise program/physical therapy.? Patient has completed >6 weeks of guided home exercise program and/or formal physical therapy program without relief of their symptoms.? I have reviewed the imaging of the lumbar spine and no red flags were identified.? The Oswestry Disability Index was completed, and the patient scored a 54%.? The patient noted the following:?? moderate to severe pain, pain with walking, pain with standing, pain with heavy lifting, pain impacting sleep and social life as well as travel. We discussed the risks and benefits of the procedure with the patient, and we are NOT planning on using sedation as outlined in the guidelines from Medicare unless there is a documented reason that sedation would be strongly recommended.?? ?The procedure will be completed with fluoroscopic guidance.? (2) Muscle spasm: (3) Lumbar stenosis with neurogenic claudication: (4) Ligamentum flavum hypertrophy: (5) correction (current) use of opiate analgesic: Assessment and Plan: I feel these medications are improving the patient's quality of life and allow them to tolerate activities of daily living as well as participate in recreational activity.? The patient does not report intolerable side effects. The patient is NOT opioid naive and non-pharmacologic and non-opioid treatment has failed to significantly relieve the patient's pain and improve functiona lity. The patient has a diagnosis that is related to a somatic or visceral pain etiology. ? ?? I reviewed with the patient the potential risks and side effects with the use of? opioid medications including but not limited to respiratory depression,? sedation, and even . I verified the patient has access to naloxone should? these effects occur. I advised the patient to avoid the use of any other? sedation substances including alcohol, THC, and benzodiazepines while? taking opioid medications due to the risk of compounding side effects and? detrimental outcomes. I reviewed the NEW [employer]IENT BANKING SERVICES CLERK, pain treatment agreement, urine? drug screen, and opioid start talking forms. The patient was advised to let? their family know they had Naloxone in case they would need to administer? the medication.? ?? A drug screen was completed within the last year, and no aberrancies were noted regarding their use of controlled substances. The patient understands they are subject to the terms and conditions of the pain contract that they have signed. ? ?? I have checked an [place] report on this patient today and there are no aberrancies noted in the prescribing history.? (6) Degenerative disc disease: Plan Based on history of chronic low back pain and left leg pain unresponsive to PT/HEP greater than 6 weeks, conservative medications, heat/ice, bilateral L4-5 L5-S1 RFA, left L4-5 L5-S1 TFESI and left SIJ injection I would recommend patient undergo spinal cord stimulator trial. we reviewed preoperative testing would need to be completed, and psychiatric evaluation to be completed prior to trial. i reviewed the risks vs benefits of the trial and procedure. continue current medications, tolerating without side effects. continues to notice improvement and pain and functional ability narcan previously prescribed f/u for spinal cord stimulator trial
== END 2023-10-15 13:29 | disposition home or self-care (01) ==
LOC: PM 13:28
PROVIDERS: PCP Internal Medicine; Visit Provider Nurse Practitioner
DX: M47.816 Spondylosis without myelopathy or radiculopathy, lumbar region (principal); M62.838 Other muscle spasm; M48.062 Spinal stenosis, lumbar region with neurogenic claudication; M46.06 Spinal enthesopathy, lumbar region; Z79.891 Long term (current) use of opiate analgesic; M51.36 Other intervertebral disc degeneration, lumbar region
CPT/HCPCS: G0463

== ENCOUNTER 2024-01-13 14:05 | Outpatient (OUT) | payer MEDICARE, SELFPAY ==
--- NOTE | 2024-01-13 14:40 | PM.CN ---
Consult Note: HPI Data of Consult Patient: known to practice within the last 3 years Consult date: 04/16/23 Requesting Physician: Renate Flores NP Primary Care Provider: Non-Staff Physician, MD Consult Narrative Reason for consult: f/u Narrative: Vidhya Pillai a pleasant 67 year old female presents for evaluation and management of chronic back pain. Pain today 0/10, pain increases to 8/10 stabbing with standing walking ADLS and activity. Reports mild benefit from gabapentin 600mg TID. Patient continues to require percocet 5-325mg BID PRN for pain to improve functional ability, denies side effefcts. Recently underwent left L4-5 L5-S1 TFESI and left nerve block of SIJ with 40% improvement in pain and functional ability per patient. Patient reports left leg still feels different and heavy. cc:: CC: Renate Flores NP Review of Systems ROS Status of ROS 10 or more systems reviewed and unremarkable except as noted in history and below Musculoskeletal Reports: back pain and extremity pain PFSH PFSH Medical History Osteoarthritis ?M19.90 - Unspecified osteoarthritis, unspecified site (ICD-10) Low back pain ?M54.50 - Low back pain, unspecified (ICD-10) Numbness and tingling ?R20.0 - Anesthesia of skin (ICD-10) ?R20.2 - Paresthesia of skin (ICD-10) Diabetes ?E11.9 - Type 2 diabetes mellitus without complications (ICD-10) Smoker ?F17.200 - Nicotine dependence, unspecified, uncomplicated (ICD-10) COPD (chronic obstructive pulmonary disease) ?J44.9 - Chronic obstructive pulmonary disease, unspecified (ICD-10) Angina at rest ?I20.8 - Other forms of angina pectoris (ICD-10) Hypertension ?I10 - Essential (primary) hypertension (ICD-10) Surgical History History of cholecystectomy ?Z90.49 - Acquired absence of other specified parts of digestive tract (ICD-10) S/P dilatation and curettage ?Z98.890 - Other specified postprocedural states (ICD-10) H/O cardiac catheterization ?Z98.890 - Other specified postprocedural states (ICD-10) Meds Home Medications and Allergies Home Medications ?Medication ?Instructions ?Recorded ?Confirmed ?Type gabapentin 600 mg tablet 600 mg PO TID 10/16/22 10/05/23 History glipizide 10 mg tablet 10 mg PO BID 10/16/22 10/05/23 History insulin NPH isoph U-100 human 100 20 unit subcut BID 10/16/22 10/05/23 History unit/mL subcutaneous suspension (Novolin N NPH U-100 Insulin isophane) metoprolol tartrate 50 mg tablet 50 mg PO BID 10/16/22 10/05/23 History paroxetine HCl 10 mg tablet 10 mg PO DAILY 10/16/22 10/05/23 History pramipexole 0.25 mg tablet 0.25 mg PO DAILY 10/16/22 10/05/23 History (Mirapex) trazodone 150 mg tablet 150 mg PO BEDTIME 10/16/22 10/05/23 History atorvastatin 40 mg tablet (Lipitor) 40 mg PO DAILY 04/16/23 10/05/23 History bumetanide 0.5 mg tablet 0.5 mg PO DAILY 04/16/23 10/05/23 History magnesium oxide 400 mg (241.3 mg mg 06/01/23 History magnesium) tablet allopurinol 200 mg tablet 200 mg PO DAILY 09/21/23 10/05/23 History oxycodone-acetaminophen 5 mg-325 1 tab PO BID PRN pain #60 tabs 01/05/24 Rx mg tablet (Percocet) Allergies Allergy/AdvReac Type Severity Reaction Status Date / Time prednisone Allergy Intermediate Rash Verified 10/05/23 08:00 Exam Constitutional Documenting provider has reviewed patient's vital signs: yes Common normals: no apparent distress, oriented x3, healthy appearing, alert and well nourished General appearance: cooperative Orientation/consciousness: Yes awake, Yes oriented to person, Yes oriented to place and Yes oriented to time HENWY Common normals: normocephalic, hearing grossly normal bilaterally and moist oral mucous membranes Head and scalp: normocephalic Eye Common normals: PERRL Pupil: PERRL Neck & C-Spine Common normals: full ROM General: normal visual inspection Chest Common normals: inspection of chest normal Respiratory Common normals: normal respiratory effort, no retractions and no use of accessory muscles Effort & inspection: able to speak in complete sentences and symmetric chest movement Back & Pelvis Common normals: thoracic and lumbar spine normal to inspection and straight leg raise negative bilaterally Lumbar spine/lower back: ROM limited, pain with ROM and straight leg raise negative bilaterally Sacroiliac joints: SI joints normal Other: bilateral facet loading mild on left decreased sensation to left L4,5,S1 pattern strength 4/5 in BLE Extremity Common normals: normal to inspection and full ROM Neuro Common normals: oriented x3, CN's II-XII intact bilaterally, moves all extremities, no focal motor deficits, no sensory deficits noted and deep tendon reflexes 2+ bilaterally Sensorium/orientation: alert Motor exam: strength 5/5 throughout and no movement abnormalities noted Psych Common normals: mental status grossly normal, thought process normal, cooperative, affect normal, speech normal and activity/motor behavior normal Speech: normal speech Thought process: normal thought process Results Additional Findings Additional findings: If on a controlled substance or opioids, I have checked an [place] report on this patient and there are no aberrancies noted in the prescribing history.??If on a controlled substance or opioid a drug screen was completed and reviewed within the last year, and if there has not been a drug screen completed we ordered one today to monitor higher risk, state monitored pain medication use. As part of providing excellent, safe, comprehensive care, the following was completed at our patient's visit: 1. A medication reconciliation and review to ensure accurate knowledge of current/active medications, including asking our patients to inform us about any [id number] medications or herbal remedies/nutritional supplements/alternative remedies. 2. A review to specifically ensure our patients have had annual screening for screening for depression, screening for tobacco use, and screening for unhealthy alcohol use. For concerning screenings had a discussion with the patient, provided patient education, and recommended follow-up with primary care provider when appropriate. If patient noted with a risk of falling, they received education on strength, gait, and balance training to prevent future risk of falling. 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 The patient does not report intolerable side effects. The patient is NOT opioid naive and non-pharmacologic and non-opioid treatment has failed to significantly relieve the patient's pain and improve functionality. The patient has a diagnosis that is related to a somatic or visceral pain etiology. ? ?? I reviewed with the patient the potential risks and side effects with the use of? opioid medications including but not limited to respiratory depression,? sedation, and even . I verified the patient has access to naloxone should? these effects occur. I advised the patient to avoid the use of any other? sedation substances including alcohol, THC, and benzodiazepines while? taking opioid medications due to the risk of compounding side effects and? detrimental outcomes. I reviewed the RETAIL SALES MANAGER, pain treatment agreement, urine? drug screen, and opioid start talking forms. The patient was advised to let? their family know they had Naloxone in case they would need to administer? the medication.? ?? A drug screen was completed within the last year, and no aberrancies were noted regarding their use of controlled substances. The patient understands they are subject to the terms and conditions of the pain contract that they have signed. ? ?? I have checked an [place]AR[place] report on this patient today and there are no aberrancies noted in the prescribing history.? (6) Degenerative disc disease: Plan Based on history of chronic low back pain and left leg pain unresponsive to PT/HEP greater than 6 weeks, conservative medications, heat/ice, bilateral L4-5 L5-S1 RFA, left L4-5 L5-S1 TFESI and left SIJ injection I would recommend patient undergo spinal cord stimulator trial. we reviewed preoperative testing would need to be completed, and psychiatric evaluation to be completed prior to trial. i reviewed the risks vs benefits of the trial and procedure. to be completed under fluoroscopy continue current medications, tolerating without side effects. continues to notice improvement and pain and functional ability narcan previously prescribed f/u for spinal cord stimulator trial
== END 2024-01-13 14:06 | disposition home or self-care (01) ==
LOC: PM 14:06
PROVIDERS: Visit Provider Nurse Practitioner
DX: M48.062 Spinal stenosis, lumbar region with neurogenic claudication (principal); M47.816 Spondylosis without myelopathy or radiculopathy, lumbar region; M62.838 Other muscle spasm; M24.20 Disorder of ligament, unspecified site; Z79.891 Long term (current) use of opiate analgesic; M51.36 Other intervertebral disc degeneration, lumbar region
CPT/HCPCS: G0463

== ENCOUNTER 2024-04-13 13:51 | Outpatient (OUT) | payer MEDICARE, SELFPAY ==
--- OUTSIDE RECORDS SUMMARY | 2024-04-13 14:04 | XMS_ITS | CCD ---
Author Organization [facility] CliniSywy Care Team Providers Care Able Bodied Watchman Name Role Phone Shaikh Mchugh Unavailable Unavailable Unavailable Juan Gonzalez Unavailable Unavailable Unavailable NAVEEN ., DR ELIGIO Burns Admitting Unavailable HODGE ., DR ELIGIO Burns Consulting Unavailable HODGE ., DR ELIGIO Burns Attending Unavailable FAWWAD, DIAL H Primary Care Unavailable SHARPSHEYJUAN ANTONIO Consulting Unavailable HODGE ., DR ELIGIO Burns Admitting Unavailable FAWILD, DIAL H Primary Care Unavailable ROSEN ., EVA Consulting Unavailable HODGE ., DR ELIGIO Burns Attending Unavailable HODGE ., DR ELIGIO Burns Admitting Unavailable FAWWAD, DIAL H Primary Care Unavailable ROSEN ., EVA Consulting Unavailable HODGE ., DR ELIGIO Burns Attending Unavailable FAWWAD, DIAL H Primary Care Unavailable LAKSHMIPATHY ., NARENDRANLYLE Admitting Catrina vailable LAKSHMIPATHY ., NARENDSHIRAATH Attending Catrina vailable HODGE ., DR ELIGIO Burns Admitting Unavailable FAWWAD, DIAL H Primary Care Unavailable ROSEN ., EVA Consulting Unavailable HODGE ., DR ELIGIO Burns Attending Unavailable FAWWAD, DIAL H Primary Care Unavailable ROSEN ., EVA Consulting Unavailable HODGE ., DR ELIGIO Burns Attending Unavailable HODGE ., DR ELIGIO Burns Admitting Unavailable ROSEN ., EVA Consulting Unavailable HODGE ., DR ELIGIO Burns Admitting Unavailable NEENA MCAK Primary Care Unavailable HODGE ., DR ELIGIO Burns Attending Unavailable FAWWAD, DIAL H Primary Care Unavailable FAWWAD, DIAL H Consulting Unavailable FAWWAD, DIAL H Attending Unavailable FAWWAD, DIAL H Admitting Unavailable FAWWAD, DIAL H Consulting Unavailable FAWWAD, DIAL H Attending Unavailable FAWWAD, DIAL H Admitting Unavailable FAWWAD, DIAL H Primary Care Unavailable FAWWAD, DIAL H Primary Care Unavailable FAWWAD, IDAL H Attending Unavailable FAWWAD, DIAL H Admitting Unavailable JUSTO, DR NADJA Malcolm Consulting Unavailable CONNIE ., ANA CRISTINA Consulting Unavailable FAWWAD, DIAL H Consulting Unavailable FAWWAD, DIAL H Primary Care Unavailable SILAS .EVA Consulting Unavailable HODGE ., DR ELIGIO Burns [...] Schmid Attending Provider Alta Schmid Unavailable MD Yojana Mchugh Primary Care Provider MD Alta Schmid Attending Provider JOSE Staley Attending Provider MD Alta Schmid Referring Provider Neena Hi Unavailable MD Yojana Mchugh Primary Care Provider JOSE Staley Attending Provider MD Alta Schmid Referring Provider [phone] MD Yojana Mchugh Primary Care Provider MD Alta Schmid Referring Provider MD Rebeca Ashraf Attending Provider [phone] MD Alta Schmid Attending Provider Giedraitis MD, Andrius Ceciliaytdorina Attending Unavailable Giedraitis MD, Andrius Vytautpaul Attending Unavailable Giedraitis MD, Andrius Vytautas Attending Unavailable Giedraitis MD, Andrius Vytautas Attending Unavailable Giedraitis MD, Andrius Vytautpaul Attending Unavailable Giedraitis MD, Andrius Vytautpaul Attending Unavailable VILLA V, EZRA Attending Unavailable VILLA V, EZRA Attending Unavailable FAWWAD, DIAL Referring Unavailable FAWWAD, DIAL Attending Unavailable FAWWAD, DIAL Attending Unavailable FAWWAD, DIAL Attending Unavailable CARVER, JUAN ANTONIO Attending Unavailabl e NADJA FULTON Attending Unavailable CARVER, JUAN ANTONIO Referring Unavailabl e Jeison PRAJAPATI, Dial Primary Care Provider Alta Schmid Attending Unavailable Sharmaine, Alta Admitting Unavailable Fawwad, Dial Primary Care Unavailable Sharmaine, Alta Attending Unavailable Sharmaine, Alta Admitting Unavailable Carver, Juan Antonio N Primary Care Unavaila ble Sharmaine, Alta Referring Unavailable Fawwad, Dial Primary Care Unavailable Al-MarRebeca cade Yahanh Attending Unavailabl e Al-Marrayo, Mhd Yaser Admitting Unavailabl e Carver SITE PROMOTION AGENT-C, Juan Antonio N Primary Care Provid er Alta Schmid MD Attending Provider Allergies Allergy Classification Reported Allergen(s) Allergy Type Date of Onset Reaction(s) Facility (14 sources) predniSONE; Translations: [predniSONE] Drug Allergy 1 [facility], [facility] (2 sources) predniSONE Drug Allergy 5 [facility] (2 sources) prednisoLONE Drug Allergy 3 [facility] (2 sources) Prednisone Allergy to substance 4 [facility] (1 source) predniSONE Drug Allergy 4 [facility] Repository Medications Current Medications Medication Drug Class(es) Dates Sig (Normalized) Sig (Original) acetaminophen 325 mg / oxyCODONE hydrochloride 5 mg oral tablet (20 sources) Opioid Agonist Start: 01-24-2021 End: 03-23-2023 take 1 tablet by mouth twice daily as needed for pain Oxycodone-Acetami nophen 5-325 mg tablet Active 1 TAB PO Twice daily as needed for Pain March 23, 2023 12:00am take 1 tablet by mouth once oxyC ODONE-acetaminophen (Percocet) 5-325 MG tablet Take 1 tablet by mouth every 12 (twelve) hours if needed for severe pain Active take 1 tablet by rafat th every twelve hours as needed for pain Percocet 5-325 MG Oral Tablet TAKE 1 TAB LET EVERY 12 HOURS NEEDED FOR PAIN. Quantity: 0 Refills: 0 Ordered: 13-May-2021 DO Active allopurinol 100 mg oral tablet (20 sources) Xanthine Oxidase Inhibitor Start: 09-16-2023 take 1 tablet by mouth once daily allopurinol (Zyloprim) 100 MG tablet Take 100 mg by mouth Daily 09/16/2023 Active Start: 01-24-2021 End: 03-23-2023 take 1 tablet by mouth in the morning allopurinol (Zyloprim) 300 MG tablet Take 1 tablet by mouth in the morning. 06/30/2022 Active aspirin 81 mg delayed release oral tablet (2 sources) Platelet Aggregation Inhibitor, Nonsteroidal Anti-inflammatory Drug take 1 tablet by mouth in the morning aspirin 81 MG EC tablet Take 1 tablet by mouth in the morning. Active atorvastatin 40 mg oral tablet (10 sources) HMG-CoA Reductase Inhibitor Start: 023 take 1 tablet by mouth once daily in the morning atorvastatin (Lipitor) 40 MG tablet Indications: Mixed hyperlipidemia (CMS/HCC) take 1 tablet by mouth every morning 90 tablet 1 09/07/2023 Active bumetanide 0.5 mg oral tablet (20 sources) Loop Diuretic Start: 024 take 1 tablet by mouth once daily bumetanide (Bumex) 0.5 MG tablet Indications: Chronic diastolic congestive heart failure (CMS/HCC) take 1 tablet by mouth once daily 90 tablet 1 09/24/2023 Active Start: 01-24-2021 End: 03-23-2023 take 1 tablet by mouth once daily Bumetanide 0.5 mg tablet Active 0.5 MG PO Daily March 23, 2023 12:00am take 1 tablet by rafat th every twenty-four hours Bumetanide 0.5 MG 1 TAB BY MOUTH Orally every 24 hrs Active Ikxwjnoxtql-Fryziqsjv-Xywxqa (Trelegy Ellipta) 200-62.5-25 MCG/ACT aerosol powder (2 sources) Start: 12-14-2023 take 1 puff(s) by inhalation once daily Jnabhmyzowh-Zaxdcsrbp-Dsplja (Trelegy Ellipta) 200-62.5-25 MCG/ACT aerosol powder Indications: Pulmonary emphysema, unspecified emphysema type (CMS/HCC) Inhale 1 puff Daily 1 each 1 12/14/2023 Active gabapentin 600 mg oral table t (20 sources) Anti- epile ptic Agent Start: 02-16-2024 take 1 tablet by mouth in the morning, then take 1 tablet by mouth in the evening, then take 1 tablet by mouth at bedtime gabapentin (Neurontin) 600 MG tablet Indications: Diabetic polyneuropathy associated with type 2 diabetes mellitus (CMS/HCC) Take 1 tablet (600 mg) by mouth in the morning and 1 tablet (600 mg) in the evening and 1 tablet (600 mg) before bedtime. 90 tablet 2 02/16/2024 Active Start: 03-23-2023 End: 02-15-2024 take 1 tablet by mouth in the morning, then take 1 tablet by mouth in the evening, then take 1 tablet by mouth at bedtime gabapentin (Neurontin) 600 MG tablet Indications: Diabetic polyneuropathy associated with type 2 diabetes mellitus (CMS/HCC) Take 1 tablet (600 mg) by mouth in the morning and 1 tablet (600 mg) in the evening and 1 tablet (600 mg) before bedtime. 90 tablet 2 11/11/2023 Active Start: 01-24-2021 End: 03-23-2023 take 1 capsule by mouth three times daily Gabapentin 400 mg capsule Discontinued 400 MG PO Three times daily January 23, 2021 11:00pm March 23, 2023 2:48pm glipiZIDE 10 mg oral tablet (20 sources) Sulfonylurea Start: 03-23-2023 End: 07-10-2024 take 1 tablet by mouth in the morning glipiZIDE (Glucotrol) 10 MG tablet Indications: Type 2 diabetes mellitus with stage 3a chronic kidney disease, with long-term current use of insulin (HCC) (CMS/HCC) Take 1 tablet (10 mg) by mouth in the morning and 1 tablet (10 mg) in the evening. Take before meals. 180 tablet 1 01/12/2024 07/10/2024 Active Start: 01-24-2021 End: 03-23-2023 take 1 tablet by mouth once daily Glipizide 10 mg tablet Discontinued 10 MG PO Daily January 23, [...] / losartan potassium 100 mg oral tablet (10 sources) Thiazide Diuretic, Angiotensin 2 Receptor Niko Start : 03-23 take 1 tablet by mouth once daily in the morning losartan-hydroCHLOROthia zide (Hyzaar) 100-25 MG tablet Indications: Primary hypertension (CMS/HCC) take 1 tablet by mouth every morning 90 tablet 1 10/19/2023 Active 3 ml insulin isophane, human 100 unt/ml pen injector (2 sources) NovoLIN N FlexPe n 100 UNIT/ML as directed Subcutaneous 20 UNITS TWICE A DAY Active 3 ml insulin isophane, human 70 unt/ml / insulin, regular, human 30 unt/ml pen injector (8 sources) Insulin Start : 11-10 End: 02-08 insulin NPH-insulin regular (NovoLIN 70/30 FlexPen Relion) (70-30) 100 UNIT/ML injection Indications: Type 2 diabetes mellitus with stage 3a chronic kidney disease, with long-term current use of insulin (HCC) (CMS/HCC) Inject 20 Units under the skin in the morning and 20 Units in the evening. Inject before meals. 7 Insulin pen, 20 subcutaneous q12. 36 mL 11/11/2023 Active Start: 03-24-2023 Insulin Nph An d Regular [...] for 90 days Mar, Active magnesium oxide 400 mg oral tablet (12 sources) Start: 09-17-2023 take 1 tablet by mouth in the morning magnesium oxide (Mag-Ox) 400 (240 Mg) MG tablet Take 400 mg by mouth in the morning and 400 mg before bedtime. 09/17/2023 Active Start: 09-16-2023 End: 09-16-2023 take 1 tablet by mouth twice daily Magnesium Oxide 400 mg (241.3 mg magnesium) tablet Active 400 MG PO Twice daily 180 September 16, 2023 10:35am Start: 06-24-2023 End: 09-16-2023 take 1 tablet by mouth once daily Magnesium Oxide 400 mg (241.3 mg magnesium) tablet Discontinued 400 MG PO Daily September 15, 2023 11:00pm September 16, 2023 10:35am take 1 tablet by rafat once daily at mealtime Magnesium Oxide 250 MG 1 tablet with food Orally Once a day Active metoprolol tartrate 50 mg oral tablet (20 sources) beta-Adrenergic Niko Start: 03-23-2023 take 1 tablet by mouth in the morning metoprolol tartrate (Lopressor) 50 MG tablet Indications: Primary hypertension (CMS/HCC) Take 1 tablet (50 mg) by mouth in the morning and 1 tablet (50 mg) before bedtime. 180 tablet 09/08/2023 Active Start: 01-24-2021 End: 03-23-2023 take 1 tablet by mouth three times daily Metoprolol Tartrate 50 mg tablet Discontinued 50 MG PO Three times daily January 23, 2021 11:00pm March 23, 2023 2:48pm take 2 tablets by mo [facility] once daily Metoprolol Tartrate 50 MG Oral Tablet TAKE 2 TABLETS DAILY. Quantity: 0 Refills: 0 Ordered: 01-Jul-2021 DO Active take 1 tablet by rafat th once daily Metoprolol Tartrate 50 MG Oral Tablet TAKE 1 TABLET EVERY 12 HOURS DAILY. Quantity: 0 Refills: 0 Ordered: 13-May-2021 DO Active Naloxone 4 mg/actuation spray,non-aerosol (1 source) Start: 03-22-2024 Naloxone 4 mg/ actuation spray,non-aerosol Active INTRANASAL March 22, 2024 12:00am nitroglycerin 0.4 mg sublingual tablet (6 sources) Nitrate Vasodilator Start: 09-16-2023 Nitroglycerin 0.4 mg tablet, sublingual Active MG SUBLINGUAL As Directed September 15, 2023 11:00pm FreeTextSig: as directed Sublingual; Note: Source Status: Not-TakingundefinedPRN; Provider: Sharmaine Holm ( ) Nitroglycerin 0. 4 MG as directed Sublingual Not-Taking/PRN Nitroglycerin 0. [address] Tablet Sub[address] 1 TABLET UNDER THE TONGUE EVERY 5 MINUTES FOR UP TO 3 DOSES NEEDED FOR CHEST PAIN.CALL 911 IF PAIN PERSISTS. Quantity: 1 Refills: 0 Ordered: 08-Dec-2022 DO Active nystatin 100 unt/mg topical powder (5 sources) Polyene Antifungal Start: 06-24-2023 Nystatin 100,000 unit/gram powder Active 1 APPLIC TOPICAL Twice daily June 24, 2023 12:00am apply to dry skin under breasts 2 times daily pramipexole dihydrochloride 0.5 mg oral tablet (11 sources) Nonergot Dopamine Agonist Start: 03-22-2024 take 0.25 mg by mouth once daily Pramipexole 0.5 mg tablet Active 0.25 MG PO Daily March 22, 2024 11:24am Start: 10-19-2023 End: 04-16-2024 take 1 tablet by mouth at bedtime pramipexole (Mirapex) 0.25 MG tablet Indications: RLS (restless legs syndrome) Take 1 tablet (0.25 mg) by mouth at bedtime 90 tablet 1 10/19/2023 04/16/2024 Active Start: 03-23-2023 End: 03-22-2024 take 1 tablet by mouth once daily Pramipexole 0.5 mg tablet Discontinued 0.5 MG PO Daily March 23, 2023 12:00am March 22, 2024 11:27am rOPINIRole 0.5 mg oral tablet (2 sources) Nonergot Dopamine Agonist take 1 tablet by mouth once daily at bedtime rOPINIRole HCl 0.5 MG 1 tablet 1 to 3 hours before bedtime Orally Once a day Active traZODone hydrochloride 100 mg oral tablet (20 sources) Serotonin Reuptake Inhibitor Start: take 1.5 tablets by mouth at bedtime traZODone (Desyrel) 100 MG tablet Indications: Psychophysiological insomnia Take 1.5 tablets (150 mg) by mouth at bedtime 135 tablet 09/24/2023 Active Start: 09-16-2023 Trazodone 100 mg tablet Active 150 MG PO Daily at bedtime September 16, 2023 9:59am Start: 03-23-2023 End: 09-16-2023 take 1 tablet by mouth once daily at bedtime Trazodone 100 mg tablet Discontinued 100 MG PO Daily at bedtime March 23, 2023 12:00am September 16, 2023 10:00am Start: 01-24-2021 End: 03-23-2023 Trazodone 100 mg tablet Disc ontinued 150 MG PO Bedtime January 23, 2021 11:00pm March 23, 2023 2:48pm Start: 01-24-2021 End: 03-23-2023 take 150 mg [...] Drug Class(es) Dates Sig (Normalized) Sig (Original) amLODIPine 2.5 mg oral tablet (7 sources) Dihydropyridine Calcium Channel Niko Start: End: take 1 tablet by mouth once daily Amlodipine 2.5 mg tablet Discontinued 2.5 MG PO Daily January 23, 2021 11:00pm March 23, 2023 2:48pm celecoxib 50 mg oral capsule (6 sources) Nonsteroidal Anti-inflammatory Drug take 1 capsule by mouth twice daily Celecoxib 50 MG Oral Capsule TAKE 1 CAPSULE TWICE DAILY. Quantity: 0 Refills: 0 Ordered: 13-May-2021 DO Active cephalexin 500 mg oral capsule (5 sources) Cephalosporin Antibacterial Start: 3 End: 4 take 1 capsule by mouth three times daily Cephalexin 500 mg Capsule Discontinued 500 MG PO Three times daily 15 09March 24, 2023 12:00am June 24, 2023 10:13am doxycycline hyclate 100 mg oral tablet (5 sources) Tetracycline-class Drug Start: 4 End: 4 take 2 tablets by mouth once daily Doxycycline Hyclate 100 mg tablet Discontinued 100 MG PO Twice daily June 24, 2023 12:00am March 22, 2024 11:26am take 2 tablets daily for 14 days hydroCHLOROthiazide 12.5 mg / lisinopril 10 mg [...] DO Active lisinopril 2.5 mg oral tablet (9 sources) Angiotensin Converting Enzyme Inhibitor Start: 1 End: 3 take 1 tablet by mouth once daily Lisinopril 2.5 mg tablet Discontinued 2.5 MG PO Daily January 23, 2021 11:00pm March 23, 2023 2:48pm lovastatin 40 mg oral tablet (15 sources) HMG-CoA Reductase Inhibitor Start: 1 End: 3 take 1 tablet by mouth once daily Lovastatin 40 mg tablet Discontinued 40 MG PO Daily January 23, 2021 11:00pm March 23, 2023 2:48pm metFORMIN hydrochloride 500 mg oral tablet (15 sources) Biguanide Start: End: 3 take 1 tablet by mouth twice daily Metformin 500 mg tablet Discontinued 500 MG PO Twice daily January 23, 2021 11:00pm March 23, 2023 2:48pm metFORMIN HCl 10 00 MG 1 /2 tablet with a meal Orally TWICE A DAY Active Ozempic (0.25 or 0.5 MG/DOSE) SOPN (2 sources) Ozempic (0.25 or 0.5 MG/DOSE) SOPN as directed Quantity: 0 Refills: 0 Ordered: 08-Dec-2022 DO Active PARoxetine hydrochloride 20 mg oral tablet (20 sources) Serotonin Reuptake Inhibitor Start: 3 End: 4 take 1 tablet by mouth once daily in the morning PARoxetine (Paxil) 20 MG tablet Indications: Moderate episode of recurrent major depressive disorder (CMS/HCC) take 1 tablet by mouth every morning 90 tablet 1 10/05/2023 01/18/2024 Discontinued (Reorder) Start: 01-24-2021 End: 03-23-2023 take 1 tablet by mouth once daily Paroxetine Hcl 10 mg tablet Discontinued 10 MG PO Daily January 23, 2021 11:00pm March 23, 2023 2:48pm tiZANidine 4 mg oral tablet (15 sources) Central alpha-2 Adrenergic Agonist Start: 01-24-2021 End: 03-23-2023 take 1 tablet by mouth twice daily Tizanidine 4 mg tablet Discontinued 4 MG PO Twice daily January 23, 2021 11:00pm March 23, 2023 2:48pm Zanaflex CAPS TA KE 1 CAPSULE TWICE DAILY NEEDED. Quantity: 0 Refills: 0 Ordered: 13-May-2021 DO Active Problems Active Problems Problem Classification Problem Date Documented Date Episodic/Chronic Abdominal pain (4 sources) Abdominal pain; Translations: [Unspecified abdominal pain] Episodic Chronic kidney disease (9 sources) Chronic kidney disease stage 3; Translations: [Chronic kidney disease, stage 3 (moderate)] 09-16-2023 Chronic Chronic kidney disease (2 sources) Chronic kidney disease; Translations: [Chronic kidney disease, stage 3 unspecified] Onset: 4 Chronic obstructive pulmonary disease and bronchiectasis (3 sources) Chronic obstructive pulmonary disease, unspecified; Translations: [Pulmonary emphysema] Onset: 2 04-13-2023 Chronic Congestive heart failure; nonhypertensive (2 sources) Chronic diastolic heart failure; Translations: [Chronic diastolic (congestive) heart failure] Onset: 3 04-13-2023 Chronic Diabetes mellitus with complications (19 sources) Disorder of kidney due to diabetes mellitus; Translations: [Type 2 diabetes mellitus with diabetic chronic kidney disease] Onset: 2 Chronic Diabetes mellitus without complication (5 sources) Diabetes mellitus; Translations: [Diabetes mellitus without mention of complication, type II or unspecified type, not stated as uncontrolled] Onset: 3 Chronic Diseases of white blood cells (20 sources) Elevated white blood cell count, unspecified; Translations: [Leukocytosis] Onset: 2 Chronic Disorders of lipid metabolism (7 sources) Hyperlipidemia, unspecified; Translations: [Mixed hyperlipidemia] Onset: 2 Chronic Essential hypertension (6 sources) Hypertensive disorder; Translations: [Unspecified essential hypertension] Onset: 3 04-13-2023 Chronic Hypertension with complications and secondary hypertension (10 sources) Malignant hypertensive chronic kidney disease; Translations: [Hypertensive chronic kidney disease with stage 1 through stage 4 chronic kidney disease, or unspecified chronic kidney disease] Onset: 2 Chronic Miscellaneous mental health disorders (2 sources) Psychophysiologic insomnia; Translations: [Psychophysiologic insomnia] Onset: 4 07-13-2023 Chronic Mood disorders (7 sources) Major depression in full remission; Translations: [Major depressive disorder, single episode, in full remission] Onset: 3 04-13-2023 Chronic Mycoses (10 sources) Mycosis; Translations: [Candidiasis, unspecified] 06-24-2023 Episodic Nonmalignant breast conditions (11 sources) Other specified disorders of breast; Translations: [Breast lump] Onset: 2 06-24-2023 Episodic Other and ill-defined heart disease (12 sources) Cardiomegaly; Translations: [Cardiomegaly] Chronic Other and ill-defined heart disease (1 source) Cardiomegaly Onset: 1 Resolved: 1 Chronic Other diseases of kidney and ureters (6 sources) Secondary hyperparathyroidism; Translations: [Secondary hyperparathyroidism of renal origin] 09-16-2023 Chronic Other diseases of kidney and ureters (3 sources) Secondary hyperparathyroidism of renal origin; Translations: [Secondary hyperparathyroidism (of renal origin)] Onset: 4 Chronic Other gastrointestinal disorders (4 sources) Constipation; Translations: [Constipation, unspecified] Episodic Other hereditary and degenerative nervous system conditions (1 source) Restless legs syndrome; Translations: [RESTLESS LEGS SYNDROME] Onset: 2 Chronic Other hereditary and degenerative nervous system conditions (2 sources) Restless legs; Translations: [Restless legs syndrome] Onset: 3 04-13-2023 Chronic Other liver diseases (6 sources) Liver cyst; Translations: [Other specified diseases of liver] 09-16-2023 Chronic Other liver diseases (3 sources) Other specified diseases of liver; Translations: [Other specified disorders of liver] Onset: 4 Chronic Other lower respiratory disease (8 sources) [...] Chronic Other nutritional; endocrine; and metabolic disorders (6 sources) Hypomagnesemia; Translations: [Hypomagnesemia] 09-16-2023 Chronic Other nutritional; endocrine; and metabolic disorders (4 sources) Hypermagnesemia; Translations: [Hypermagnesemia] Chronic Other nutritional; endocrine; and metabolic disorders (3 sources) Hypomagnesemia; Translations: [Disorders of magnesium metabolism] Onset: 4 Chronic Other nutritional; endocrine; and metabolic disorders (3 sources) Hyperuricemia without signs of inflammatory arthritis and tophaceous disease; Translations: [Other abnormal blood chemistry] Onset: 4 Episodic Other nutritional; endocrine; and metabolic disorders (2 sources) Hyperuricemia; Translations: [Hyperuricemia without signs of inflammatory arthritis and tophaceous disease] 09-16-2023 Episodic Skin and subcutaneous tissue infections (12 sources) Furuncle; Translations: [Furuncle, unspecified] Onset: 4 06-24-2023 Episodic Spondylosis; intervertebral disc disorders; other back problems (16 sources) Prolapsed cervical intervertebral disc; Translations: [Other cervical disc displacement, unspecified cervical region] Onset: 2 Resolved: 2 Chronic Substance-related disorders (11 sources) Smoker; Translations: [Tobacco use disorder] Onset: 2 04-13-2023 Chronic Comment on above: 1/2 pack daily.; [...] Problem Classification Problem Date Documented Date Episodic/Chronic Immunizations and screening for infectious disease (12 sources) Patient encounter status; Translations: [Other specified vaccination] Onset: 04-13-2023 04-13-2023 Episodic Nonspecific chest pain (4 sources) Chest pain, unspecified; Translations: [CHEST PAIN UNSPECIFIED] Onset: 11-28-2021 Episodic Other aftercare (1 source) Other api architect (current) drug therapy; Translations: [OTH SNF CURRENT DRUG THERAPY] Onset: 12-04-2021 Episodic Other connective tissue disease (2 sources) Disorder of back; Translations: [Disorder of ligament, vertebrae] Onset: 04-08-2023 04-08-2023 Episodic Other connective tissue disease (2 sources) H/O: osteoarthritis; Translations: [Personal history of other diseases of the musculoskeletal system and connective tissue] Onset: 04-08-2023 04-08-2023 Episodic Other connective tissue disease (2 sources) Spasm; Translations: [Other muscle spasm] Onset: 04-08-2023 04-08-2023 Episodic Other lower respiratory disease (1 source) Shortness of breath; Translations: [SHORTNESS OF BREATH] Onset: 12-04-2021 Episodic Residual codes; unclassified (1 source) Procedure and treatment not carried out for other reasons; Translations: [PROC AND TX NOT CARRIED OUT OTH REASONS] Onset: 05-28-2022 Episodic Spondylosis; intervertebral disc disorders; other back problems (19 sources) Cervical disc disorder at C5-C6 level with radiculopathy; Translations: [Cervical disc disorder at C6-C7 level with radiculopathy] Onset: 04-09-2021 Resolved: 04-09-2021 Episodic Unclassified (1 source) LOW BACK PAIN, UNSPECIFIED; Translations: [LOW BACK PAIN, UNSPECIFIED] Onset: 07-17-2022 Results Test Name Value Interpretation Reference Range Facility Albumin [Mass/volume] in Ser um or Plasma by Bromocresol green (BCG) dye binding methoOrdered By: Alta Schmid on 03-14-2024 Albumin BCG dye [Mass/Vol] Albumin [Mass/volume] in Serum or Plasma by Bromocresol green (BCG) dye binding metho 3.5-5.7 [facility] Appearance of UrineOrdered B y: Alta Schmid on 03-14-2024 Appearance (U) Urine appearance [facility] Bacteria [Presence] in Urine by AutomatedOrdered By: Alta Schmid on 03-14-2024 Bacteria Auto Ql (U) Bacteria [Presence] in Urine by Automated None Seen [facility] Bilirubin Test strip Ql (U)O rdered By: Alat Schmid on 03-14-2024 Bilirubin Ql (U) Bilirubin.total [Presence] in Urine by Test strip Negative [facility] Calcium [Mass/volume] in Ser um or PlasmaOrdered By: Alta Schmid on 03-14-2024 Calcium [Mass/Vol] Calcium [Mass/volume] in Serum or Plasma 8.6-10.3 [facility] Carbon dioxide, total [Moles /volume] in Serum or PlasmaOrdered By: Alta Schmid on 03-14-2024 CO2 [Moles/Vol] Carbon dioxide, total [Moles/volume] in Serum or Plasma 21.0-31.0 [facility] Chloride [Moles/volume] in S carlos or PlasmaOrdered By: Alta Schmid on 03-14-2024 Chloride [Moles/Vol] Chloride [Moles/volume] in Serum or Plasma 98-107 [facility] Color Auto (U)Ordered By: Ab richard Schmid on 03-14-2024 Color (U) Color of Urine by Auto Yellow [facility] Creatinine [Mass/volume] in Serum or PlasmaOrdered By: Alta Schmid on 03-14-2024 Creatinine [Mass/Vol] Creatinine [Mass/volume] in Serum or Plasma High 0.60-1.20 [facility] Creatinine [Mass/volume] in UrineOrdered By: Alta Schmid on 03-14-2024 Creatinine (U) [Mass/Vol] Creatinine [Mass/volume] in Urine [facility] Comment on above: No reference range e stablished Dipstick and Microscopicon 1 05-14-2023 Appearance (U) Clear Normal Clear [facility] Comment on above: Order Comment: Reaso n for Exam Chronic kidney disease, stage III (moderate);Diabetes mellit Performed By: #### C BCNO #### [facility] [address] Bacteria,Urine Rare Normal None Seen [facility] Comment on above: Order Comment: Reaso n for Exam Chronic kidney disease, stage III (moderate);Diabetes mellit Performed By: #### C BCNO #### [facility] [address] [place] [address] [place] Bilirubin,Urine Negative Normal Negative [facility] Comment on above: Order Comment: Reaso n for Exam Chronic kidney disease, stage III (moderate);Diabetes mellit Performed By: #### C BCNO #### [facility] [address] Color (U) Colorless Normal Yellow [facility] Comment on above: Order Comment: Reaso n for Exam Chronic kidney disease, stage III (moderate);Diabetes mellit Performed By: #### C BCNO #### [facility] [address] Glucose Ql (U) 200 mg/dL High Normal [facility] Comment on above: Order Comment: Reaso n for Exam Chronic kidney disease, stage III (moderate);Diabetes mellit Performed By: #### C BCNO #### [facility] [address] Hyaline Casts,Urine 0 [LPF] Normal 0-8 [facility] Comment on above: Order Comment: Reaso n for Exam Chronic kidney disease, stage III (moderate);Diabetes mellit Performed By: #### C BCNO #### [facility] [address] Ketones Ql (U) Negative Normal Negative [facility] Comment on above: Order Comment: Reaso n for Exam Chronic kidney disease, stage III (moderate);Diabetes mellit Performed By: #### C BCNO #### [facility] [address] Leukocyte esterase Test strip Ql (U) Negative Normal Negative [facility] Comment on above: Order Comment: Reaso n for Exam Chronic kidney disease, stage III (moderate);Diabetes mellit Performed By: #### C BCNO #### [place] [address] [place] Mucus,Urine Rare Normal [facility] Comment on above: Order Comment: Reaso n for Exam Chronic kidney disease, stage III (moderate);Diabetes mellit Result Comment: PERF ORMED BY: [place] [address] PATHOLOGIST CONFIGURATION RELEASE MANAGER SHANTE LOMBARDI M.D. Performed By: #### C BCNO #### [place] [address] [place] Nitrite,Urine Negative Normal Negative [facility] Comment on above: Order Comment: Reaso n for Exam Chronic kidney disease, stage III (moderate);Diabetes mellit Performed By: #### C BCNO #### [facility] [address] [place] [address] [place] Occult Blood,Urine Negative Normal Negative [facility] Comment on above: Order Comment: Reaso n for Exam Chronic kidney disease, stage III (moderate);Diabetes mellit Performed By: #### C BCNO #### [address] pH (U) 5.5 [pH] Normal 5.0-9.0 [facility] Comment on above: Order Comment: Reaso n for Exam Chronic kidney disease, stage III (moderate);Diabetes mellit Performed By: #### C BCNO #### [address] Protein,Urine Negative Normal Negative [facility] Comment on above: Order Comment: Reaso n for Exam Chronic kidney disease, stage III (moderate);Diabetes mellit Performed By: #### C BCNO #### [address] RBC,Urine 1 [HPF] Normal 0-4 [facility] Comment on above: Order Comment: Reaso n for Exam Chronic kidney disease, stage III (moderate);Diabetes mellit Performed By: #### C BCNO #### [address] Specificy Orange,Urine 1.008 Normal 1.001-1.030 [facility] Comment on above: Order Comment: Reaso n for Exam Chronic kidney disease, stage III (moderate);Diabetes mellit Performed By: #### C BCNO #### [address] Squamous Epithelial Cell,Urine 3 [HPF] High 0-2 [facility] Comment on above: Order Comment: Reaso n for Exam Chronic kidney disease, stage III (moderate);Diabetes mellit Performed By: #### C BCNO #### [address] Urobilinogen,Urine Normal Normal Normal [facility] Comment on above: Order Comment: Reaso n for Exam Chronic kidney disease, stage III (moderate);Diabetes mellit Performed By: #### C BCNO #### [address] WBC,Urine 1 [HPF] Normal 0-4 [facility] Comment on above: Order Comment: Reaso n for Exam Chronic kidney disease, stage III (moderate);Diabetes mellit Performed By: #### C BCNO #### [facility] [address] Epithelial cells.squamous [# /area] in Urine sediment by Automated countOrdered By: Alta Schmid on 03-14-2024 Epithelial cells.squamous Auto (Urine sed) [#/Area] Epithelial cells.squamous [#/area] in Urine sediment by Automated count High 0-2 [facility] Erythrocyte distribution wid th Auto (RBC) [Ratio]Ordered By: Alta Schmid on 03-14-2024 Erythrocyte distribution width (RBC) [Ratio] Erythrocyte distribution width [Ratio] by Automated count 11.9-15.3 [facility] Erythrocytes [#/area] in Uri ne sediment by Automated countOrdered By: Alta Schmid on 03-14-2024 RBC Auto (Urine sed) [#/Area] Erythrocytes [#/area] in Urine sediment by Automated count 0-4 [facility] Glucose [Mass/volume] in Ser um or PlasmaOrdered By: Alta Schmid on 03-14-2024 Glucose [Mass/Vol] Glucose [Mass/volume] in Serum or Plasma High 70-100 [facility] Comment on above: ADA recommended refe rence rangeRandom Glucose Reference Range is dependent on time and content of last meal. Glucose of more than 200 mg/dL in a nonstressed, ambulatory subject supports the diagnosis of Diabetes Mellitus. Glucose [Mass/volume] in Uri ne by Test stripOrdered By: Alta Schmid on 03-14-2024 Glucose Test strip (U) [Mass/Vol] Glucose [Mass/volume] in Urine by Test strip High Normal [facility] Hematocrit Auto (Bld) [Volum e fraction]Ordered By: Alta Schmid on 03-14-2024 Hematocrit (Bld) [Volume fraction] Hematocrit [Volume Fraction] of Blood by Automated count 34.0-46.4 [facility] Hemoglobin Test strip Ql (U) Ordered By: Alta Schmid on 03-14-2024 Hemoglobin Ql (U) Hemoglobin [Presence] in Urine by Test strip Negative [facility] Hemoglobin [Mass/volume] in BloodOrdered By: Alta Schmid on 03-14-2024 Hemoglobin (Bld) [Mass/Vol] Hemoglobin [Mass/volume] in Blood 11.8-15.4 [facility] Hemogram CBC Without Diffon 03-14-2024 Erythrocyte distribution width (RBC) [Ratio] 14.5 % Normal 11.9-15.3 [facility] Comment on above: Performed By: #### C BCNO #### [address] Hematocrit (Bld) [Volume fraction] 43.9 % Normal 34.0-46.4 [facility] Comment on above: Performed By: #### C BCNO #### [address] Hemoglobin (Bld) [Mass/Vol] 15.1 g/dL Normal 11.8-15.4 [facility] Comment on above: Performed By: #### C BCNO #### [address] MCH (RBC) [Entitic mass] 31.0 pg Normal 24.7-34.3 [facility] Comment on above: Performed By: #### C BCNO #### [address] MCV (RBC) [Entitic vol] 90.4 fL Normal 80-100 [facility] Comment on above: Performed By: #### C BCNO #### [address] Mean Corpuscular HGB Conc 34.3 g/dL Normal 32.0-35.0 [facility] Comment on above: Performed By: #### C BCNO #### [address] Platelet mean volume (Bld) [Entitic vol] 8.7 fL Normal 6.3-10.7 [facility] Comment on above: Result Comment: PERF ORMED BY: [place] [address] PATHOLOGIST CONFIGURATION RELEASE MANAGER SHANTE LOMBARDI M.D. Performed By: #### C BCNO #### [address] Platelets (Bld) [#/Vol] 268 10*3/uL Normal 150-450 [facility] Comment on above: Performed By: #### C BCNO #### [address] RBC (Bld) [#/Vol] 4.86 10*6/uL Normal 3.60-5.00 [facility] Comment on above: Performed By: #### C BCNO #### [address] WBC (Bld) [#/Vol] 11.8 10*3/uL High 3.8-11.6 [facility] Comment on above: Performed By: #### C BCNO #### [address] Hyaline casts [#/area] in Ur ine sediment by Automated countOrdered By: Alta Schmid on 03-14-2024 Hyaline casts Auto (Urine sed) [#/Area] Hyaline casts [#/area] in Urine sediment by Automated count 0-8 [facility] Ketones Test strip Ql (U)Ord ered By: Alta Schmid on 03-14-2024 Ketones Ql (U) Ketones [Presence] in Urine by Test strip Negative [facility] Leukocyte esterase [Presence ] in Urine by Test stripOrdered By: Alta Sharmaine on 03-14-2024 Leukocyte esterase Test strip Ql (U) Leukocyte esterase [Presence] in Urine by Test strip Negative [facility] Leukocytes [#/area] in Urine sediment by Automated countOrdered By: Alta Schmid on 03-14-2024 WBC Auto (Urine sed) [#/Area] Leukocytes [#/area] in Urine sediment by Automated count 0-4 [facility] Leukocytes [#/volume] correc janet for nucleated erythrocytes in Blood by Automated counOrdered By: Alta Schmid on 03-14-2024 WBC corrected for nucl RBC Auto (Bld) [#/Vol] Leukocytes [#/volume] corrected for nucleated erythrocytes in Blood by Automated coun High 3.8-11.6 [facility] MCH Auto (RBC) [Entitic mass ]Ordered By: Alta Schmid on 03-14-2024 MCH (RBC) [Entitic mass] MCH [Entitic ma ss] by Automated count 24.7-34.3 [facility] MCHC Auto (RBC) [Mass/Vol]Or dered By: Alta Schmid on 03-14-2024 MCHC (RBC) [Mass/Vol] MCHC [Mass/volume] by Automated count 32.0-35.0 [facility] MCV Auto (RBC) [Entitic vol] Ordered By: Alta Schmid on 03-14-2024 MCV (RBC) [Entitic vol] MCV [Entitic volume] by Automated count 80-100 [facility] Magnesiumon 03-14-2024 Magnesium [Mass/Vol] 1.3 mg/dL Low 1.9-2.7 [facility] Comment on above: Performed By: #### C BCNO #### [address] Magnesium [Mass/volume] in S carlos or PlasmaOrdered By: Alta Schmid on 03-14-2024 Magnesium [Mass/Vol] Magnesium [Mass/volume] in Serum or Plasma Low 1.9-2.7 [facility] Mucus [Presence] in Urine by AutomatedOrdered By: Alta Schmid on 03-14-2024 Mucus Auto Ql (U) Mucus [Presence] in Urine by Automated [facility] Nitrite Test strip Ql (U)Ord ered By: Alta Schmid on 03-14-2024 Nitrite Ql (U) Nitrite [Presence] in Urine by Test strip Negative [facility] No Panel InformationOrdered By: Alta Schmid on 03-14-2024 Estimated GFR (CKD-EPI) 39.618 mL/Min [facility] Creatinine Clearance (Chem N/A [facility] Parathyrin.intact [Mass/volu me] in Serum or PlasmaOrdered By: Alta Schmid on 03-14-2024 Parathyrin.intact [Mass/Vol] Parathyrin.intact [Mass/volume] in Serum or Plasma [facility] Parathyroid Hormone Intacton 03-14-2024 Parathyroid Hormone Intact 50.5 pg/mL Normal [facility] Comment on above: Result Comment: PERF ORMED BY: [address] [place] [address] PATHOLOGIST CONFIGURATION RELEASE MANAGER SHANTE LOMBARDI M.D. Performed By: #### C BCNO #### [facility] [address] [place] [address] [place] Phosphate [Mass/volume] in S carlos or PlasmaOrdered By: Alta Schmid on 03-14-2024 Phosphate [Mass/Vol] Phosphate [Mass/volume] in Serum or Plasma 2.5-4.5 [facility] Platelet mean volume Auto (B ld) [Entitic vol]Ordered By: Alta Schmid on 03-14-2024 Platelet mean volume (Bld) [Entitic vol] Platelet mean volume [Entitic volume] in Blood by Automated count 6.3-10.7 [facility] Platelets Auto (Bld) [#/Vol] Ordered By: Alta Schmid on 03-14-2024 Platelets (Bld) [#/Vol] Platelets [#/volume] in Blood by Automated count 150-450 [facility] Potassium [Moles/volume] in Serum or PlasmaOrdered By: Alta Schmid on 03-14-2024 Potassium [Moles/Vol] Potassium [Moles/volume] in Serum or Plasma 3.5-5.1 [facility] Protein Creat Ratio Ur Rando mon 03-14-2024 Creatinine, Urine (Random) 25.00 mg/dL Normal [facility] Comment on above: Result Comment: No r eference range established Performed By: #### C BCNO #### [place] [address] [place] Protein (U) [Mass/Vol] 9 mg/dL Normal 0-9 [facility] Comment on above: Performed By: #### C BCNO #### [address] Urine Protein/Creatinine Ratio 360 mg/g{Cre} High 0-200 [facility] Comment on above: Result Comment: PERF ORMED BY: [place] [address] PATHOLOGIST CONFIGURATION RELEASE MANAGER SHANTE LOMBARDI M.D. Performed By: #### C BCNO #### [address] Protein Test strip (U) [Mass /Vol]Ordered By: Alta Schmid on 03-14-2024 Protein (U) [Mass/Vol] Protein [Mass/volume] in Urine by Test strip Negative [facility] Protein [Mass/volume] in Uri neOrdered By: Alta Sharmaine on 03-14-2024 Protein (U) [Mass/Vol] Protein [Mass/volume] in Urine 0-9 [facility] RBC Auto (Bld) [#/Vol]Ordere d By: Alta Sharmaine on 03-14-2024 RBC (Bld) [#/Vol] Erythrocytes [#/volume] in Blood by Automated count 3.60-5.00 [facility] Renal Function Panelon 03-14 Albumin [Mass/Vol] 3.9 g/dL Normal 3.5-5.7 [facility] Comment on above: Performed By: #### C BCNO #### [address] Anion gap [Moles/Vol] 12.5 mmol/L Normal 6.0-15.0 [facility] Comment on above: Performed By: #### C BCNO #### [address] Calcium [Mass/Vol] 9.3 mg/dL Normal 8.6-10.3 [facility] Comment on above: Performed By: #### C BCNO #### [place] [address] [place] Chloride [Moles/Vol] 100 mmol/L Normal 98-107 [facility] Comment on above: Performed By: #### C BCNO #### [facility] [address] [place] [id number] [place] CO2 [Moles/Vol] 28.3 mmol/L Normal 21.0-31.0 [facility] Comment on above: Performed By: #### C BCNO #### [facility] [address] [place] [id number] [place] Creatinine [Mass/Vol] 1.44 mg/dL High 0.60-1.20 [facility] Comment on above: Performed By: #### C BCNO #### [facility] [address] [place] [address] [place] GFR/1.73 sq M.predicted MDRD (S/P/Bld) [Vol rate/Area] 39.618 mL/min/{1.73_m2} Normal [facility] Comment on above: Performed By: #### C BCNO #### [facility] [address] [place] [address] [place] Glucose [Mass/Vol] 361 mg/dL High 70-100 [facility] Comment on above: Result Comment: [facility] Glucose Reference Range is dependent on time and content of last meal. Glucose of more than 200 mg/dL in a nonstressed, ambulatory subject supports the diagnosis of Diabetes Mellitus. ADA recommended reference range Performed By: #### C BCNO #### [facility] [address] [place] [id number] [place] Phosphate [Mass/Vol] 3.0 mg/dL Normal 2.5-4.5 [facility] Comment on above: Performed By: #### C BCNO #### [facility] [address] [place] [id number] [place] Potassium [Moles/Vol] 4.8 mmol/L Normal 3.5-5.1 [facility] Comment on above: Performed By: #### C BCNO #### [facility] [address] [place] [id number] [place] Sodium [Moles/Vol] 136 mmol/L Normal 136-145 [facility] Comment on above: Performed By: #### C BCNO #### [facility] [address] Urea nitrogen [Mass/Vol] 27 mg/dL High 7-25 [facility] Comment on above: Performed By: #### C BCNO #### [facility] [address] Serum or plasma anion gap de terminationOrdered By: Alta Sharmaine on 03-14-2024 Anion gap [Moles/Vol] Serum or plasma anion gap determination 6.0-15.0 [facility] Sodium [Moles/volume] in Ser um or PlasmaOrdered By: Alta Sharmaine on 03-14-2024 Sodium [Moles/Vol] Sodium [Moles/volume] in Serum or Plasma 136-145 [facility] Specific gravity Test strip (U) [Rel density]Ordered By: Alta Sharmaine on 03-14-2024 Specific gravity (U) [Rel density] Specific gravity of Urine by Test strip 1.001-1.030 [facility] Urate [Mass/volume] in Serum or PlasmaOrdered By: Alta Sharmaine on 03-14-2024 Urate [Mass/Vol] Urate [Mass/volume] in Serum or Plasma High 2.3-6.6 [facility] Urea nitrogen [Mass/volume] in Serum or PlasmaOrdered By: Alta Sharmaine on 03-14-2024 Urea nitrogen [Mass/Vol] Urea nitrogen [Mass/volume] in Serum or Plasma High 7-25 [facility] Uric Acidon 03-14-2024 Urate [Mass/Vol] 6.9 mg/dL High 2.3-6.6 [facility] Comment on above: Performed By: #### C BCNO #### [facility] [address] [place] [address] [place] Urine protein/creatinine rat ioOrdered By: Atla Sharmaine on 03-14-2024 Protein/Creatinine (U) [Ratio] Urine protein/creatinine ratio High 0-200 [facility] Urobilinogen Test strip (U) [Mass/Vol]Ordered By: Alta Sharmaine on 03-14-2024 Urobilinogen (U) [Mass/Vol] Urobilinogen [Mass/volume] in Urine by Test strip Normal [facility] Vitamin D 25 Hydroxy Totalon 03-14-2024 Vitamin D 25 Hydroxy Total 30.4 ng/mL Normal 30-100 [facility] Comment on above: Result Comment: DEBORAH MIN D STATUS 25(OH)VITAMIN D RANGE (ng/mL) Deficient <20 Insufficient 20 to <30 Sufficient 30 to 100 Reference: Isai Rich, Randa WALSH, et al. Evaluation,treatment, and prevention of vitamin D deficiency; an Endocrine Society clinical practice guideline. JCEM. 2010; 96(7):1911-. PERFORMED BY: [place] [address] PATHOLOGIST CONFIGURATION RELEASE MANAGER SHANTE LOMBARDI M.D. Performed By: #### C BCNO #### [address] Vitamin D+Metabolites [Mass/ volume] in Serum or PlasmaOrdered By: Alta Schmid on 03-14-2024 Vitamin D+Metabolites [Mass/Vol] Vitamin D+Metabolites [Mass/volume] in Serum or Plasma 30-100 [facility] Comment on above: VITAMIN D STATUS 25( OH)VITAMIN D RANGE (ng/mL) Deficient <20 Insufficient 20 to <30Sufficient 30 to 100Reference: Isai Rich, Randa WALSH, et al. Evaluation,treatment, and prevention of vitamin D deficiency; an Endocrine Society clinical practice guideline. JCEM. 2010; 96(7):191-. pH Test strip (U)Ordered By: Alta Schmid on 03-14-2024 pH (U) pH of Urine by Test strip 5.0-9.0 [facility] Albumin [Mass/volume] in Ser um or Plasma by Bromocresol green (BCG) dye binding methoOrdered By: Alta Schmid on 09-12-2023 Albumin BCG dye [Mass/Vol] 3.9 g/dL 3.5-5.7 [facility] Automated erythrocytes count in urine sediment (number/area)Ordered By: Alta Schmid on 09-12-2023 RBC Auto (Urine sed) [#/Area] None seen [HPF] 0-4 [facility] Automated leukocytes count i n urine sediment (number/area)Ordered By: Alta Schmid on 09-12-2023 WBC Auto (Urine sed) [#/Area] 0-1 [HPF] 0-4 [facility] Automated urine color determ inationOrdered By: Alta Schmid on 09-12-2023 Color (U) Yellow Normal Yellow [facility] Comment on above: Order Comment: Name Collection Type:: Clean-Voided Midstream Performed By: #### C BCNO, ADDONUAPLUS, PROCRERAT, PTH, RENAL, MG, URIC, [id number] ####[address] Bilirubin Test strip Ql (U)O rdered By: Alta Schmid on 09-12-2023 Bilirubin Ql (U) Negative Negative [facility] Calcium [Mass/volume] in Ser um or PlasmaOrdered By: Alta Schmid on 09-12-2023 Calcium [Mass/Vol] 9.3 mg/dL Normal 8.6-10.3 [facility] Comment on above: Performed By: #### C BCNO, ADDONUAPLUS, PROCRERAT, PTH, RENAL, MG, URIC, [id number] ####[address] Carbon dioxide, total [Moles /volume] in Serum or PlasmaOrdered By: Alta Schmid on 09-12-2023 CO2 [Moles/Vol] 26.0 mmol/L Normal 21.0-31.0 [facility] Comment on above: Performed By: #### C BCNO, ADDONUAPLUS, PROCRERAT, PTH, RENAL, MG, URIC, [id number] ####[place] [id number] [facility] Chloride [Moles/volume] in S carlos or PlasmaOrdered By: Alta Schmid on 09-12-2023 Chloride [Moles/Vol] 101 mmol/L Normal 98-107 [facility] Comment on above: Performed By: #### C BCNO, ADDONUAPLUS, PROCRERAT, PTH, RENAL, MG, URIC, [id number] ####[address] [address] [facility] Creatinine [Mass/volume] in Serum or PlasmaOrdered By: Alta Schmid on 09-12-2023 Creatinine [Mass/Vol] 1.41 mg/dL High 0.60-1.20 [facility] Comment on above: Performed By: #### C BCNO, ADDONUAPLUS, PROCRERAT, PTH, RENAL, MG, URIC, [id number] ####[address] [address] [facility] Creatinine [Mass/volume] in UrineOrdered By: Alta Schmid on 09-12-2023 Creatinine (U) [Mass/Vol] 59.0 mg/dL [facility] Comment on above: No reference range e stablished Dipstick and Microscopicon 0 09-12-2023 Appearance (U) Clear Normal Clear [facility] Comment on above: Order Comment: Name Collection Type:: Clean-Voided Midstream Performed By: #### C BCNO, ADDONUAPLUS, PROCRERAT, PTH, RENAL, MG, URIC, [id number] ####[address] [address] [facility] Bacteria,Urine None Seen Normal None Seen [facility] Comment on above: Order Comment: Name Collection Type:: Clean-Voided Midstream Performed By: #### C BCNO, ADDONUAPLUS, PROCRERAT, PTH, RENAL, MG, URIC, [id number] ####[address] [address] [facility] Bilirubin,Urine Negative Normal Negative [facility] Comment on above: Order Comment: Name Collection Type:: Clean-Voided Midstream Performed By: #### C BCNO, ADDONUAPLUS, PROCRERAT, PTH, RENAL, MG, URIC, [id number] ####[address] [address] [facility] Glucose Ql (U) 250 mg/dL High Normal [facility] Comment on above: Order Comment: Name Collection Type:: Clean-Voided Midstream Performed By: #### C BCNO, ADDONUAPLUS, PROCRERAT, PTH, RENAL, MG, URIC, [id number] ####[place] [id number] [place] [address] [facility] Hyaline Casts,Urine None Seen Normal 0-8 [facility] Comment on above: Order Comment: Name Collection Type:: Clean-Voided Midstream Result Comment: PERF ORMED BY: [facility] [address] [place] [place] [address] PATHOLOGIST CONFIGURATION RELEASE MANAGER SHANTE LOMBARDI M.D. Performed By: #### C BCNO, ADDONUAPLUS, PROCRERAT, PTH, RENAL, MG, URIC, [id number] ####[address] [place] [address] [facility] Ketones Ql (U) Negative Normal Negative [facility] Comment on above: Order Comment: Name Collection Type:: Clean-Voided Midstream Performed By: #### C BCNO, ADDONUAPLUS, PROCRERAT, PTH, RENAL, MG, URIC, [id number] ####[address] [place] [address] [facility] Leukocyte esterase Test strip Ql (U) Negative Normal Negative [facility] Comment on above: Order Comment: Name Collection Type:: Clean-Voided Midstream Performed By: #### C BCNO, ADDONUAPLUS, PROCRERAT, PTH, RENAL, MG, URIC, [id number] ####[address] [place] [address] [place] Nitrite,Urine Negative Normal Negative [facility] Comment on above: Order Comment: Name Collection Type:: Clean-Voided Midstream Performed By: #### C BCNO, ADDONUAPLUS, PROCRERAT, PTH, RENAL, MG, URIC, [id number] ####[address] [place] [address] [facility] Occult Blood,Urine Negative Normal Negative [facility] Comment on above: Order Comment: Name Collection Type:: Clean-Voided Midstream Performed By: #### C BCNO, ADDONUAPLUS, PROCRERAT, PTH, RENAL, MG, URIC, [id number] ####[address] RBC,Urine None Seen Normal 0-4 [facility] Comment on above: Order Comment: Name Collection Type:: Clean-Voided Midstream Performed By: #### C BCNO, ADDONUAPLUS, PROCRERAT, PTH, RENAL, MG, URIC, [id number] ####[address] Specificy Orange,Urine 1.014 Normal 1.001-1.030 [facility] Comment on above: Order Comment: Name Collection Type:: Clean-Voided Midstream Performed By: #### C BCNO, ADDONUAPLUS, PROCRERAT, PTH, RENAL, MG, URIC, [id number] ####[address] Squamous Epithelial Cell,Urine 1-2 Normal 0-2 [facility] Comment on above: Order Comment: Name Collection Type:: Clean-Voided Midstream Performed By: #### C BCNO, ADDONUAPLUS, PROCRERAT, PTH, RENAL, MG, URIC, [id number] ####[address] Urobilinogen,Urine Normal Normal Normal [facility] Comment on above: Order Comment: Name Collection Type:: Clean-Voided Midstream Performed By: #### C BCNO, ADDONUAPLUS, PROCRERAT, PTH, RENAL, MG, URIC, [id number] ####[address] WBC LM.HPF (Urine sed) [#/Area] 0 /[HPF] Normal 0-4 [facility] Comment on above: Order Comment: Name Collection Type:: Clean-Voided Midstream Performed By: #### C BCNO, ADDONUAPLUS, PROCRERAT, PTH, RENAL, MG, URIC, [id number] ####[facility] [id number] [facility] Erythrocyte distribution wid th [Ratio] by Automated countOrdered By: Alta Schmid on 09-12-2023 Erythrocyte distribution width (RBC) [Ratio] 15.2 % Normal 11.9-15.3 [facility] Comment on above: Performed By: #### C BCNO #### [facility] [address] Erythrocytes [#/volume] in B lood by Automated countOrdered By: Alta Schmid on 09-12-2023 RBC (Bld) [#/Vol] 4.96 10*6/uL Normal 3.60-5.00 [facility] Comment on above: Performed By: #### C BCNO #### [address] Glucose [Mass/volume] in Ser um or PlasmaOrdered By: Alta Schmid on 09-12-2023 Glucose [Mass/Vol] 333 mg/dL High 70-100 [facility] Comment on above: ADA recommended refe rence rangeRandom Glucose Reference Range is dependent on time and content of last meal. Glucose of more than 200 mg/dL in a nonstressed, ambulatory subject supports the diagnosis of Diabetes Mellitus. Result Comment: [place] om Glucose Reference Range is dependent on time and content of last meal. Glucose of more than 200 mg/dL in a nonstressed, ambulatory subject supports the diagnosis of Diabetes Mellitus. ADA recommended reference range Performed By: #### C BCNO, ADDONUAPLUS, PROCRERAT, PTH, RENAL, MG, URIC, [id number] ####[facility] [place] [id number] [place] Hematocrit [Volume Fraction] of Blood by Automated countOrdered By: Alta Schmid on 09-12-2023 Hematocrit (Bld) [Volume fraction] 43.7 % Normal 34.0-46.4 [facility] Comment on above: Performed By: #### C BCNO #### [address] Hemoglobin [Mass/volume] in BloodOrdered By: Alta Schmid on 09-12-2023 Hemoglobin (Bld) [Mass/Vol] 15.0 g/dL Normal 11.8-15.4 [facility] Comment on above: Performed By: #### C BCNO #### [facility] [address] Hemogram CBC Without Diffon 09-12-2023 Mean Corpuscular HGB Conc 34.4 g/dL Normal 32.0-35.0 [facility] Comment on above: Performed By: #### C BCNO #### [address] WBC (Bld) [#/Vol] 13.1 10*3/uL High 3.8-11.6 [facility] Comment on above: Performed By: #### C BCNO #### [address] Ketones Auto test strip (U) [Mass/Vol]Ordered By: Alta Schmid on 09-12-2023 Ketones (U) [Mass/Vol] Negative Negative [facility] - UrinalysisOrder ed By: Alta Schmid on 09-12-2023 Hyaline casts LM Ql (Urine sed) None seen [LPF] 0-8 [facility] Leukocytes [#/volume] correc janet for nucleated erythrocytes in Blood by Automated counOrdered By: Alta Schmid on 09-12-2023 WBC corrected for nucl RBC Auto (Bld) [#/Vol] 13.1 10*3/uL 3.8-11.6 [facility] MCH [Entitic mass] by Automa janet countOrdered By: Alta Schmid on 09-12-2023 MCH (RBC) [Entitic mass] 30.3 pg Normal 24.7-34.3 [facility] Comment on above: Performed By: #### C BCNO #### [address] MCHC Auto (RBC) [Mass/Vol]Or dered By: Alta Schmid on 09-12-2023 MCHC (RBC) [Mass/Vol] 34.4 g/dL 32.0-35.0 [facility] MCV [Entitic volume] by Auto mated countOrdered By: Alta Schmid on 09-12-2023 MCV (RBC) [Entitic vol] 88.2 fL Normal 80-100 [facility] Comment on above: Performed By: #### C BCNO #### [facility] [address] Magnesium [Mass/volume] in S carlos or PlasmaOrdered By: Alta Schmid on 09-12-2023 Magnesium [Mass/Vol] 1.4 mg/dL Low 1.9-2.7 [facility] Comment on above: Performed By: #### C BCNO, ADDONUAPLUS, PROCRERAT, PTH, RENAL, MG, URIC, [id number] ####[id number] Nitrite Test strip Ql (U)Ord ered By: Alta Schmid on 09-12-2023 Nitrite Ql (U) Negative Negative [facility] No Panel InformationOrdered By: Alta Schmid on 09-12-2023 Estimated GFR (CKD-EPI) 40.884 mL/Min [facility] Creatinine Clearance (Chem N/A [facility] Parathyrin.intact [Mass/volu me] in Serum or PlasmaOrdered By: Alta Schmid on 09-12-2023 Parathyrin.intact [Mass/Vol] 63.3 pg/mL [facility] Parathyroid Hormone Intacton 09-12-2023 Parathyroid Hormone Intact 63.3 pg/mL Normal [facility] Comment on above: Result Comment: PERF ORMED BY: [facility] [id number] PATHOLOGIST CONFIGURATION RELEASE MANAGER SHANTE LOMBARDI M.D. Performed By: #### C BCNO, ADDONUAPLUS, PROCRERAT, PTH, RENAL, MG, URIC, [id number] ####[place] [id number] [facility] Phosphate [Mass/volume] in S carlos or PlasmaOrdered By: Alta Schmid on 09-12-2023 Phosphate [Mass/Vol] 3.6 mg/dL Normal 2.5-4.5 [facility] Comment on above: Performed By: #### C BCNO, ADDONUAPLUS, PROCRERAT, PTH, RENAL, MG, URIC, [id number] ####[facility] [place] [phone] [facility] Platelet mean volume [Entiti c volume] in Blood by Automated countOrdered By: Alta Schmid on 09-12-2023 Platelet mean volume (Bld) [Entitic vol] 8.7 fL Normal 6.3-10.7 [facility] Comment on above: Result Comment: PERF ORMED BY: [place] [address] PATHOLOGIST CONFIGURATION RELEASE MANAGER SHANTE LOMBARDI M.D. Performed By: #### C BCNO #### [facility] [address] Platelets [#/volume] in Bloo d by Automated countOrdered By: Alta Schmid on 09-12-2023 Platelets (Bld) [#/Vol] 263 10*3/uL Normal 150-450 [facility] Comment on above: Performed By: #### C BCNO #### [facility] [address] [place] [id number] [facility] Potassium [Moles/volume] in Serum or PlasmaOrdered By: Alta Schmid on 09-12-2023 Potassium [Moles/Vol] 4.5 mmol/L Normal 3.5-5.1 [facility] Comment on above: Performed By: #### C BCNO, ADDONUAPLUS, PROCRERAT, PTH, RENAL, MG, URIC, [id number] ####[facility] [phone] [facility] Protein Creat Ratio Ur Rando mon 09-12-2023 Creatinine, Urine (Random) 59.0 mg/dL Normal [facility] Comment on above: Result Comment: No r eference range established Performed By: #### C BCNO, ADDONUAPLUS, PROCRERAT, PTH, RENAL, MG, URIC, [id number] ####[address] [place] [phone] [facility] Urine Protein/Creatinine Ratio 797 mg/g{Cre} High 0-200 [facility] Comment on above: Result Comment: PERF ORMED BY: [facility] [address] [place] [id number] PATHOLOGIST CONFIGURATION RELEASE MANAGER SHANTE LOMBARDI M.D. Performed By: #### C BCNO, ADDONUAPLUS, PROCRERAT, PTH, RENAL, MG, URIC, [id number] ####[place] [phone] [facility] Protein [Mass/volume] in Uri neOrdered By: Alta Schmid on 09-12-2023 Protein (U) [Mass/Vol] 47 mg/dL High 0-9 [facility] Comment on above: Performed By: #### C BCNO, ADDONUAPLUS, PROCRERAT, PTH, RENAL, MG, URIC, [id number] ####[place] [phone] [facility] Renal Function Panelon 09-11 Albumin [Mass/Vol] 3.9 g/dL Normal 3.5-5.7 [facility] Comment on above: Performed By: #### C BCNO, ADDONUAPLUS, PROCRERAT, PTH, RENAL, MG, URIC, [id number] ####[place] [phone] [facility] GFR/1.73 sq M.predicted MDRD (S/P/Bld) [Vol rate/Area] 40.884 mL/min/{1.73_m2} Normal [facility] Comment on above: Performed By: #### C BCNO, ADDONUAPLUS, PROCRERAT, PTH, RENAL, MG, URIC, [id number] ####[place] [phone] [facility] Serum or plasma anion gap de terminationOrdered By: Alta Fletcherr on 09-12-2023 Anion gap [Moles/Vol] 12.5 mmol/L Normal 6.0-15.0 [facility] Comment on above: Performed By: #### C BCNO, ADDONUAPLUS, PROCRERAT, PTH, RENAL, MG, URIC, [id number] ####[address] [place] [phone] [facility] Sodium [Moles/volume] in Ser um or PlasmaOrdered By: Alta Sharmaine on 09-12-2023 Sodium [Moles/Vol] 135 mmol/L Low 136-145 [facility] Comment on above: Performed By: #### C BCNO, ADDONUAPLUS, PROCRERAT, PTH, RENAL, MG, URIC, [id number] ####[address] [place] [phone] [facility] Specific gravity Auto test s trip (U) [Rel density]Ordered By: Alta Schmid on 09-12-2023 Specific gravity (U) [Rel density] 1.014 1.001-1.030 [facility] Squamous epithelial cells de tection in urine sediment by light microscopyOrdered By: Alta Fletcherr on 09-12-2023 Epithelial cells.squamous LM Ql (Urine sed) 1-2 [HPF] 0-2 [facility] Urate [Mass/volume] in Serum or PlasmaOrdered By: Alta Sharmaine on 09-12-2023 Urate [Mass/Vol] 7.9 mg/dL High 2.3-6.6 [facility] Comment on above: Performed By: #### C BCNO, ADDONUAPLUS, PROCRERAT, PTH, RENAL, MG, URIC, [id number] ####[address] [place] [phone] [facility] Urea nitrogen [Mass/volume] in Serum or PlasmaOrdered By: Alta Sharmaine on 09-12-2023 Urea nitrogen [Mass/Vol] 32 mg/dL High 7-25 [facility] Comment on above: Performed By: #### C BCNO, ADDONUAPLUS, PROCRERAT, PTH, RENAL, MG, URIC, [id number] ####[facility] [place] [address] [facility] Urine bacteria detection by automated methodOrdered By: Alta Schmid on 09-12-2023 Bacteria Auto Ql (U) None seen [HPF] None Seen [facility] Urine clarity by refractomet ry automatedOrdered By: Alta Schmid on 09-12-2023 Clarity Refractometry automated (U) Clear Clear [facility] Urine glucose measurement by automated test strip (mass/volume)Ordered By: Alta Schmid on 09-12-2023 Glucose Auto test strip (U) [Mass/Vol] 250 mg/dL Normal [facility] Urine hemoglobin detection b y automated test stripOrdered By: Alta Schmid on 09-12-2023 Hemoglobin Auto test strip Ql (U) Negative Negative [facility] Urine leukocyte esterase det ection by automated test stripOrdered By: Alta Schmid on 09-12-2023 Leukocyte esterase Auto test strip Ql (U) Negative Negative [facility] Urine pH measurement by auto mated test stripOrdered By: Alta Schmid on 09-12-2023 pH (U) 5.5 [pH] Normal 5.0-9.0 [facility] Comment on above: Order Comment: Name Collection Type:: Clean-Voided Midstream Performed By: #### C BCNO, ADDONUAPLUS, PROCRERAT, PTH, RENAL, MG, URIC, [id number] ####[address] [place] [phone] [facility] Urine protein measurement by automated test strip (mass/volume)Ordered By: Alta Schmid on 09-12-2023 Protein (U) [Mass/Vol] 30 mg/dL High Negative [facility] Comment on above: Order Comment: Name Collection Type:: Clean-Voided Midstream Performed By: #### C BCNO, ADDONUAPLUS, PROCRERAT, PTH, RENAL, MG, URIC, [id number] ####[address] [place] [address] [facility] Urine protein/creatinine rat ioOrdered By: Alta Schmid on 09-12-2023 Protein/Creatinine (U) [Ratio] 797 mg/g{Cre} 0-200 [facility] Urobilinogen Auto test strip (U) [Mass/Vol]Ordered By: Alta Schmid on 09-12-2023 Urobilinogen (U) [Mass/Vol] Normal mg/dL Normal [facility] Vitamin D 25 Hydroxy Totalon 09-12-2023 Vitamin D 25 Hydroxy Total 53.3 ng/mL Normal 30-100 [facility] Comment on above: Result Comment: DEBORAH MIN D STATUS 25(OH)VITAMIN D RANGE (ng/mL) Deficient <20 Insufficient 20 to <30 Sufficient 30 to 100 Reference: Isai Rich, Randa WALSH, et al. Evaluation,treatment, and prevention of vitamin D deficiency; an Endocrine Society clinical practice guideline. JCEM. 2010; 96(7):1911-. PERFORMED BY: [facility] [address] [place] [address] PATHOLOGIST CONFIGURATION RELEASE MANAGER SHANTE LOMBARDI M.D. Performed By: #### C BCNO, ADDONUAPLUS, PROCRERAT, PTH, RENAL, MG, URIC, [id number] ####[facility] [place] [phone] [facility] Vitamin D+Metabolites [Mass/ volume] in Serum or PlasmaOrdered By: Alta Schmid on 09-12-2023 Vitamin D+Metabolites [Mass/Vol] 53.3 ng/mL 30-100 [facility] Comment on above: VITAMIN D STATUS 25( [place])VITAMIN D RANGE (ng/mL) Deficient <20 Insufficient 20 to <30Sufficient 30 to 100Reference: Isai Rich, Randa WALSH, et al. Evaluation,treatment, and prevention of vitamin D deficiency; an Endocrine Society clinical practice guideline. JCEM. 2010; 96(7):1911-. Albumin [Mass/volume] in Ser um or Plasma by Bromocresol green (BCG) dye binding methoOrdered By: Alta Schmid on 07-31-2023 Albumin BCG dye [Mass/Vol] 4.0 g/dL 3.5-5.7 [facility] Automated erythrocytes count in urine sediment (number/area)Ordered By: Alta Schmid on 07-31-2023 RBC Auto (Urine sed) [#/Area] None seen [HPF] 0-4 [facility] Automated leukocytes count i n urine sediment (number/area)Ordered By: Alta Schmid on 07-31-2023 WBC Auto (Urine sed) [#/Area] 0-1 [HPF] 0-4 [facility] Automated urine color determ inationOrdered By: Alta Schmid on 07-31-2023 Color (U) Yellow Normal Yellow [facility] Comment on above: Order Comment: Reaso n for Exam Chronic kidney disease, stage III (moderate);Diabetes mellit Name Collection Type:: Clean-Voided Midstream Performed By: #### A DDONUAPLUS #### [facility] [address] [place] [address] Bilirubin Test strip Ql (U)O rdered By: Alta Schmid on 07-31-2023 Bilirubin Ql (U) Negative Negative [facility] Calcium [Mass/volume] in Ser um or PlasmaOrdered By: Alta Schmid on 07-31-2023 Calcium [Mass/Vol] 9.4 mg/dL Normal 8.6-10.3 [facility] Comment on above: Order Comment: Reaso n for Exam Chronic kidney disease, stage III (moderate);Diabetes mellit Performed By: #### U HARINDER, [id number], RENAL, MG #### [facility] [address] [place] [address] [place] Carbon dioxide, total [Moles /volume] in Serum or PlasmaOrdered By: Alta Schmid on 07-31-2023 CO2 [Moles/Vol] 28.1 mmol/L Normal 21.0-31.0 [facility] Comment on above: Order Comment: Reaso n for Exam Chronic kidney disease, stage III (moderate);Diabetes mellit Performed By: #### U HARINDER, [id number], RENAL, MG #### [facility] [address] [place], [place] [id number] [place] Chloride [Moles/volume] in S carlos or PlasmaOrdered By: Alta Schmid on 07-31-2023 Chloride [Moles/Vol] 103 mmol/L Normal 98-107 [facility] Comment on above: Order Comment: Reaso n for Exam Chronic kidney disease, stage III (moderate);Diabetes mellit Performed By: #### U HARINDER, [id number], RENAL, MG #### [facility] [address] Creatinine [Mass/volume] in Serum or PlasmaOrdered By: Alta Schmid on 07-31-2023 Creatinine [Mass/Vol] 1.49 mg/dL High 0.60-1.20 [facility] Comment on above: Order Comment: Reaso n for Exam Chronic kidney disease, stage III (moderate);Diabetes mellit Performed By: #### U HARINDER, [id number], RENAL, MG #### [facility] [address] [place] [id number] [place] Creatinine [Mass/volume] in UrineOrdered By: Alta Schmid on 07-31-2023 Creatinine (U) [Mass/Vol] 64.0 mg/dL [facility] Comment on above: No reference range e stablished Dipstick and Microscopicon 0 07-31-2023 Appearance (U) Clear Normal Clear [facility] Comment on above: Order Comment: Reaso n for Exam Chronic kidney disease, stage III (moderate);Diabetes mellit Name Collection Type:: Clean-Voided Midstream Performed By: #### A DDONUAPLUS #### [place] [address] [place] Bacteria,Urine None Seen Normal None Seen [facility] Comment on above: Order Comment: Reaso n for Exam Chronic kidney disease, stage III (moderate);Diabetes mellit Name Collection Type:: Clean-Voided Midstream Performed By: #### A DDONUAPLUS #### [place] [id number] [place] Bilirubin,Urine Negative Normal Negative [facility] Comment on above: Order Comment: Reaso n for Exam Chronic kidney disease, stage III (moderate);Diabetes mellit Name Collection Type:: Clean-Voided Midstream Performed By: #### A DDONUAPLUS #### [address] Glucose Ql (U) Normal Normal Normal [facility] Comment on above: Order Comment: Reaso n for Exam Chronic kidney disease, stage III (moderate);Diabetes mellit Name Collection Type:: Clean-Voided Midstream Performed By: #### A DDONUAPLUS #### [place] [address] [place] Hyaline Casts,Urine 0-8 Normal 0-8 [facility] Comment on above: Order Comment: Reaso n for Exam Chronic kidney disease, stage III (moderate);Diabetes mellit Name Collection Type:: Clean-Voided Midstream Result Comment: PERF ORMED BY: [place] [address] PATHOLOGIST CONFIGURATION RELEASE MANAGER SHANTE LOMBARDI M.D. Performed By: #### A DDONUAPLUS #### [address] Ketones Ql (U) Negative Normal Negative [facility] Comment on above: Order Comment: Reaso n for Exam Chronic kidney disease, stage III (moderate);Diabetes mellit Name Collection Type:: Clean-Voided Midstream Performed By: #### A DDONUAPLUS #### [address] Leukocyte esterase Test strip Ql (U) Negative Normal Negative [facility] Comment on above: Order Comment: Reaso n for Exam Chronic kidney disease, stage III (moderate);Diabetes mellit Name Collection Type:: Clean-Voided Midstream Performed By: #### A DDONUAPLUS #### [place] [address] [place] Nitrite,Urine Negative Normal Negative [facility] Comment on above: Order Comment: Reaso n for Exam Chronic kidney disease, stage III (moderate);Diabetes mellit Name Collection Type:: Clean-Voided Midstream Performed By: #### A DDONUAPLUS #### [place] [address] [place] Occult Blood,Urine Negative Normal Negative [facility] Comment on above: Order Comment: Reaso n for Exam Chronic kidney disease, stage III (moderate);Diabetes mellit Name Collection Type:: Clean-Voided Midstream Performed By: #### A DDONUAPLUS #### [address] Protein,Urine Negative Normal Negative [facility] Comment on above: Order Comment: Reaso n for Exam Chronic kidney disease, stage III (moderate);Diabetes mellit Name Collection Type:: Clean-Voided Midstream Performed By: #### A DDONUAPLUS #### [place] [address] [place] RBC,Urine None Seen Normal 0-4 [facility] Comment on above: Order Comment: Reaso n for Exam Chronic kidney disease, stage III (moderate);Diabetes mellit Name Collection Type:: Clean-Voided Midstream Performed By: #### A DDONUAPLUS #### [address] Specificy Orange,Urine 1.012 Normal 1.001-1.030 [facility] Comment on above: Order Comment: Reaso n for Exam Chronic kidney disease, stage III (moderate);Diabetes mellit Name Collection Type:: Clean-Voided Midstream Performed By: #### A DDONUAPLUS #### [address] Squamous Epithelial Cell,Urine 0-1 Normal 0-2 [facility] Comment on above: Order Comment: Reaso n for Exam Chronic kidney disease, stage III (moderate);Diabetes mellit Name Collection Type:: Clean-Voided Midstream Performed By: #### A DDONUAPLUS #### [place] [address] [place] Urobilinogen,Urine Normal Normal Normal [facility] Comment on above: Order Comment: Reaso n for Exam Chronic kidney disease, stage III (moderate);Diabetes mellit Name Collection Type:: Clean-Voided Midstream Performed By: #### A DDONUAPLUS #### [address] [place] [address] [place] WBC LM.HPF (Urine sed) [#/Area] 0 /[HPF] Normal 0-4 [facility] Comment on above: Order Comment: Blancao n for Exam Chronic kidney disease, stage III (moderate);Diabetes mellit Name Collection Type:: Clean-Voided Midstream Performed By: #### A DDONUAPLUS #### [address] Erythrocyte distribution wid th [Ratio] by Automated countOrdered By: Alta Schmid on 07-31-2023 Erythrocyte distribution width (RBC) [Ratio] 15.4 % High 11.9-15.3 [facility] Comment on above: Order Comment: Blancao n for Exam Chronic kidney disease, stage III (moderate);Diabetes mellit Performed By: #### C BCNO #### [address] Erythrocytes [#/volume] in B lood by Automated countOrdered By: Alta Schmid on 07-31-2023 RBC (Bld) [#/Vol] 4.80 10*6/uL Normal 3.60-5.00 [facility] Comment on above: Order Comment: Lou n for Exam Chronic kidney disease, stage III (moderate);Diabetes mellit Performed By: #### C BCNO #### [address] Glucose [Mass/volume] in Ser um or PlasmaOrdered By: Alta Schmid on 07-31-2023 Glucose [Mass/Vol] 235 mg/dL High 70-100 [facility] Comment on above: ADA recommended refe rence rangeRandom Glucose Reference Range is dependent on time and content of last meal. Glucose of more than 200 mg/dL in a nonstressed, ambulatory subject supports the diagnosis of Diabetes Mellitus. Order Comment: Lou n for Exam Chronic kidney disease, stage III (moderate);Diabetes mellit Result Comment: Adams om Glucose Reference Range is dependent on time and content of last meal. Glucose of more than 200 mg/dL in a nonstressed, ambulatory subject supports the diagnosis of Diabetes Mellitus. ADA recommended reference range Performed By: #### U HARINDER, [id number], RENAL, MG #### [address] Hematocrit [Volume Fraction] of Blood by Automated countOrdered By: Alta Schmid on 07-31-2023 Hematocrit (Bld) [Volume fraction] 42.7 % Normal 34.0-46.4 [facility] Comment on above: Order Comment: Reaso n for Exam Chronic kidney disease, stage III (moderate);Diabetes mellit Performed By: #### C BCNO #### [address] Hemoglobin [Mass/volume] in BloodOrdered By: Alta Schmid on 07-31-2023 Hemoglobin (Bld) [Mass/Vol] 14.4 g/dL Normal 11.8-15.4 [facility] Comment on above: Order Comment: Reaso n for Exam Chronic kidney disease, stage III (moderate);Diabetes mellit Performed By: #### C BCNO #### [address] Hemogram CBC Without Diffon 07-31-2023 Mean Corpuscular HGB Conc 33.6 g/dL Normal 32.0-35.0 [facility] Comment on above: Order Comment: Reaso n for Exam Chronic kidney disease, stage III (moderate);Diabetes mellit Performed By: #### C BCNO #### [address] WBC (Bld) [#/Vol] 12.8 10*3/uL High 3.8-11.6 [facility] Comment on above: Order Comment: Reaso n for Exam Chronic kidney disease, stage III (moderate);Diabetes mellit Performed By: #### C BCNO #### [address] Ketones Auto test strip (U) [Mass/Vol]Ordered By: Alta Schmid on 07-31-2023 Ketones (U) [Mass/Vol] Negative Negative [facility] - UrinalysisOrder ed By: Alta Schmid on 07-31-2023 Hyaline casts LM Ql (Urine sed) 0-8 [LPF] 0-8 [facility] Leukocytes [#/volume] correc janet for nucleated erythrocytes in Blood by Automated counOrdered By: Alta Schmid on 07-31-2023 WBC corrected for nucl RBC Auto (Bld) [#/Vol] 12.8 10*3/uL 3.8-11.6 [facility] MCH [Entitic mass] by Automa janet countOrdered By: Alta Schmid on 07-31-2023 MCH (RBC) [Entitic mass] 29.9 pg Normal 24.7-34.3 [facility] Comment on above: Order Comment: Reaso n for Exam Chronic kidney disease, stage III (moderate);Diabetes mellit Performed By: #### C BCNO #### [facility] [address] [place] [address] MCHC Auto (RBC) [Mass/Vol]Or dered By: Alta Schmid on 07-31-2023 MCHC (RBC) [Mass/Vol] 33.6 g/dL 32.0-35.0 [facility] MCV [Entitic volume] by Auto mated countOrdered By: Alta Schmid on 07-31-2023 MCV (RBC) [Entitic vol] 89.0 fL Normal 80-100 [facility] Comment on above: Order Comment: Reaso n for Exam Chronic kidney disease, stage III (moderate);Diabetes mellit Performed By: #### C BCNO #### [facility] [address] [place] [address] Magnesium [Mass/volume] in S carlos or PlasmaOrdered By: Alta Schmid on 07-31-2023 Magnesium [Mass/Vol] 1.3 mg/dL Low 1.9-2.7 [facility] Comment on above: Order Comment: Reaso n for Exam Chronic kidney disease, stage III (moderate);Diabetes mellit Performed By: #### U HARINDER, [id number], RENAL, MG #### [facility] [address] Nitrite Test strip Ql (U)Ord ered By: Alta Schmid on 07-31-2023 Nitrite Ql (U) Negative Negative [facility] No Panel InformationOrdered By: Alta Schmid on 07-31-2023 Estimated GFR (CKD-EPI) 38.264 mL/Min [facility] Creatinine Clearance (Chem 38.44 [facility] Parathyrin.intact [Mass/volu me] in Serum or PlasmaOrdered By: Alta Schmid on 07-31-2023 Parathyrin.intact [Mass/Vol] 47.7 pg/mL [facility] Parathyroid Hormone Intacton 07-31-2023 Parathyroid Hormone Intact 47.7 pg/mL Normal [facility] Comment on above: Order Comment: Reaso n for Exam Chronic kidney disease, stage III (moderate);Diabetes mellit Result Comment: PERF ORMED BY: [place] [address] PATHOLOGIST CONFIGURATION RELEASE MANAGER SHANTE LOMBARDI M.D. Performed By: #### P TH #### [facility] [address] [place] [address] Phosphate [Mass/volume] in S carlos or PlasmaOrdered By: Alta Schmid on 07-31-2023 Phosphate [Mass/Vol] 3.6 mg/dL Normal 2.5-4.5 [facility] Comment on above: Order Comment: Reaso n for Exam Chronic kidney disease, stage III (moderate);Diabetes mellit Performed By: #### U HARINDER, [id number], RENAL, MG #### [facility] [address] [place], [place] [id number] [place] Platelet mean volume [Entiti c volume] in Blood by Automated countOrdered By: Alta Schmid on 07-31-2023 Platelet mean volume (Bld) [Entitic vol] 8.3 fL Normal 6.3-10.7 [facility] Comment on above: Order Comment: Reaso n for Exam Chronic kidney disease, stage III (moderate);Diabetes mellit Result Comment: PERF ORMED BY: [place] [address] PATHOLOGIST CONFIGURATION RELEASE MANAGER JIANLAN SUN M.D. Performed By: #### C BCNO #### [facility] [address] Platelets [#/volume] in Bloo d by Automated countOrdered By: Alta Schmid on 07-31-2023 Platelets (Bld) [#/Vol] 270 10*3/uL Normal 150-450 [facility] Comment on above: Order Comment: Reaso n for Exam Chronic kidney disease, stage III (moderate);Diabetes mellit Performed By: #### C BCNO #### [facility] [address] [place] [address] Potassium [Moles/volume] in Serum or PlasmaOrdered By: Alta Schmid on 07-31-2023 Potassium [Moles/Vol] 4.7 mmol/L Normal 3.5-5.1 [facility] Comment on above: Order Comment: Reaso n for Exam Chronic kidney disease, stage III (moderate);Diabetes mellit Performed By: #### U HARINDER, [id number], RENAL, MG #### [address] Protein Auto test strip (U) [Mass/Vol]Ordered By: Alta Schmid on 07-31-2023 Protein (U) [Mass/Vol] Negative Negative [facility] Protein Creat Ratio Ur Rando mon 07-31-2023 Creatinine, Urine (Random) 64.0 mg/dL Normal [facility] Comment on above: Order Comment: Reaso n for Exam Chronic kidney disease, stage III (moderate);Diabetes mellit Result Comment: No r eference range established Performed By: #### C BCNO #### [address] Urine Protein/Creatinine Ratio 250 mg/g{Cre} High 0-200 [facility] Comment on above: Order Comment: Reaso n for Exam Chronic kidney disease, stage III (moderate);Diabetes mellit Result Comment: PERF ORMED BY: [place] [address] PATHOLOGIST CONFIGURATION RELEASE MANAGER SHANTE LOMBARDI M.D. Performed By: #### C BCNO #### [address] Protein [Mass/volume] in Uri neOrdered By: Alta Schmid on 07-31-2023 Protein (U) [Mass/Vol] 16 mg/dL High 0-9 [facility] Comment on above: Order Comment: Reaso n for Exam Chronic kidney disease, stage III (moderate);Diabetes mellit Performed By: #### C BCNO #### [address] Renal Function Panelon 07-30 Albumin [Mass/Vol] 4.0 g/dL Normal 3.5-5.7 [facility] Comment on above: Order Comment: Reaso n for Exam Chronic kidney disease, stage III (moderate);Diabetes mellit Performed By: #### U HARINDER, [id number], RENAL, MG #### [address] Creatinine Clr Calc Pharmacy 38.44 Normal [facility] Comment on above: Order Comment: Reaso n for Exam Chronic kidney disease, stage III (moderate);Diabetes mellit Performed By: #### U HARINDER, [id number], RENAL, MG #### [address] GFR/1.73 sq M.predicted MDRD (S/P/Bld) [Vol rate/Area] 38.264 mL/min/{1.73_m2} Normal [facility] Comment on above: Order Comment: Reaso n for Exam Chronic kidney disease, stage III (moderate);Diabetes mellit Performed By: #### U HARINDER, [id number], RENAL, MG #### [address] Serum or plasma anion gap de terminationOrdered By: Alta Schmid on 07-31-2023 Anion gap [Moles/Vol] 12.6 mmol/L Normal 6.0-15.0 [facility] Comment on above: Order Comment: Reaso n for Exam Chronic kidney disease, stage III (moderate);Diabetes mellit Performed By: #### U HARINDER, [id number], RENAL, MG #### [facility] [address] [place] [address] [place] Sodium [Moles/volume] in Ser um or PlasmaOrdered By: Alta Fletcherr on 07-31-2023 Sodium [Moles/Vol] 139 mmol/L Normal 136-145 [facility] Comment on above: Order Comment: Reaso n for Exam Chronic kidney disease, stage III (moderate);Diabetes mellit Performed By: #### U HARINDER, [id number], RENAL, MG #### [facility] [address] Specific gravity Auto test s trip (U) [Rel density]Ordered By: Alta Schmid on 07-31-2023 Specific gravity (U) [Rel density] 1.012 1.001-1.030 [facility] Squamous epithelial cells de tection in urine sediment by light microscopyOrdered By: Alta Schmid on 07-31-2023 Epithelial cells.squamous LM Ql (Urine sed) 0-1 [HPF] 0-2 [facility] Urate [Mass/volume] in Serum or PlasmaOrdered By: Alta Schmid on 07-31-2023 Urate [Mass/Vol] 9.9 mg/dL High 2.3-6.6 [facility] Comment on above: Order Comment: Reaso n for Exam Chronic kidney disease, stage III (moderate);Diabetes mellit Performed By: #### U HARINDER, [id number], RENAL, MG #### [facility] [address] [place] [address] [place] Urea nitrogen [Mass/volume] in Serum or PlasmaOrdered By: Alta Schmid on 07-31-2023 Urea nitrogen [Mass/Vol] 29 mg/dL High 7-25 [facility] Comment on above: Order Comment: Reaso n for Exam Chronic kidney disease, stage III (moderate);Diabetes mellit Performed By: #### U HARINDER, [id number], RENAL, MG #### [facility] [address] [place] [id number] [facility] Urine bacteria detection by automated methodOrdered By: Alta Schmid on 07-31-2023 Bacteria Auto Ql (U) None seen None Seen [facility] Urine clarity by refractomet ry automatedOrdered By: Alta Schmid on 07-31-2023 Clarity Refractometry automated (U) Clear Clear [facility] Urine glucose measurement by automated test strip (mass/volume)Ordered By: Alta Schmid on 07-31-2023 Glucose Auto test strip (U) [Mass/Vol] Normal mg/dL Normal [facility] Urine hemoglobin detection b y automated test stripOrdered By: Alta Schmid on 07-31-2023 Hemoglobin Auto test strip Ql (U) Negative Negative [facility] Urine leukocyte esterase det ection by automated test stripOrdered By: Alta Schmid on 07-31-2023 Leukocyte esterase Auto test strip Ql (U) Negative Negative [facility] Urine pH measurement by auto mated test stripOrdered By: Alta Schmid on 07-31-2023 pH (U) 6.0 [pH] Normal 5.0-9.0 [facility] Comment on above: Order Comment: Reaso n for Exam Chronic kidney disease, stage III (moderate);Diabetes mellit Name Collection Type:: Clean-Voided Midstream Performed By: #### A [id number] #### [address] Urine protein/creatinine rat ioOrdered By: Alta Schmid on 07-31-2023 Protein/Creatinine (U) [Ratio] 250 mg/g{Cre} 0-200 [facility] Urobilinogen Auto test strip (U) [Mass/Vol]Ordered By: Alta Schmid on 07-31-2023 Urobilinogen (U) [Mass/Vol] Normal mg/dL Normal [facility] Vitamin D 25 Hydroxy Totalon 07-31-2023 Vitamin D 25 Hydroxy Total 41.8 ng/mL Normal 30-100 [facility] Comment on above: Order Comment: Reaso n for Exam Chronic kidney disease, stage III (moderate);Diabetes mellit Result Comment: DEBORAH MIN D STATUS 25(OH)VITAMIN D RANGE (ng/mL) Deficient <20 Insufficient 20 to <30 Sufficient 30 to 100 Reference: Raven MF,Isai CLARK, ConchaLesly WALSH et al. Evaluation,treatment, and prevention of vitamin D deficiency; an Endocrine Society clinical practice guideline. JCEM. 2010; 96(7):1911-30. PERFORMED BY: [place] [address] PATHOLOGIST CONFIGURATION RELEASE MANAGER SHANTE LOMBARDI M.D. Performed By: #### U HARINDER, [id number], RENAL, MG #### [address] Vitamin D+Metabolites [Mass/ volume] in Serum or PlasmaOrdered By: Alta Schmid on 07-31-2023 Vitamin D+Metabolites [Mass/Vol] 41.8 ng/mL 30-100 [facility] Comment on above: VITAMIN D STATUS 25( OH)VITAMIN D RANGE (ng/mL) Deficient <20 Insufficient 20 to <30Sufficient 30 to 100Reference: Raven MF,Isai NC, Randa WALSH, et al. Evaluation,treatment, and prevention of vitamin D deficiency; an Endocrine Society clinical practice guideline. JCEM. 2010; 96(7):1911-30. MM screening mammo BI w/CADo n 07-03-2023 MM screening mammo BI w/CAD [facility] [place] [address] [place] [address] Mammography Report Signed Patient: Vidhya Ibarra MR#: [id number] : 1955 Acct:[id number] Age/Sex: 67 / F ADM Date: 07/03/23 Loc: Room: Type[facility] Attending Dr: Yakelin Staley GAS ADJUSTER Copies to: MD Yakelin Kahn APRN Mhd [...] Daniels Jr., D.O.07/03/2023 3:30 PM Dictation Location: [facility] Transcribed By: [facility] 07/03/23 1530 Dictated By: Stevan Daniels Jr, DO 07/03/23 1529 Signed By: 07/03/23 1530 Normal [facility] Automated basophil %Ordered By: Yakelin Staley on 06-22-2023 Basophils/100 WBC (Bld) 0.8 % Normal . [facility] Comment on above: Performed By: #### C BC #### [facility] [address] [place] [address] Automated basophil countOrde red By: Yakelin Staley on 06-22-2023 Basophils (Bld) [#/Vol] 0.1 10*3/uL Normal 0.0-0.2 [facility] Comment on above: Result Comment: PERF ORMED BY: [place] [address] PATHOLOGIST CONFIGURATION RELEASE MANAGER SHANTE LOMBARDI M.D. Performed By: #### C BC #### [facility] [address] [place] [address] Automated blood monocyte cou ntOrdered By: Yakelin Staley on 06-22-2023 Monocytes (Bld) [#/Vol] 0.7 10*3/uL Normal 0.0-0.8 [facility] Comment on above: Performed By: #### C BC #### [address] Automated eosinophil %Ordere d By: Yakelin Staley on 06-22-2023 Eosinophils/100 WBC (Bld) 1.7 % Normal . [facility] Comment on above: Performed By: #### C BC #### [address] Automated eosinophil countOr dered By: Yakelin Staley on 06-22-2023 Eosinophils (Bld) [#/Vol] 0.2 10*3/uL Normal 0.0-0.45 [facility] Comment on above: Performed By: #### C BC #### [address] Automated monocyte %Ordered By: Yakelin Staley on 06-22-2023 Monocytes/100 WBC (Bld) 5.2 % Normal . [facility] Comment on above: Performed By: #### C BC #### [address] Automated neutrophil %Ordere d By: Yakelin Staley on 06-22-2023 Neutrophils/100 WBC (Bld) 74.3 % Normal . [facility] Comment on above: Performed By: #### C BC #### [address] Complete Blood Count Auto Di ffon 06-22-2023 Mean Corpuscular HGB Conc 33.9 g/dL Normal 32.0-35.0 [facility] Comment on above: Performed By: #### C BC #### [address] NRBC% 0.1 /100{WBC} Normal 0-0.5 [facility] Comment on above: Performed By: #### C BC #### [address] Erythrocyte distribution wid th [Ratio] by Automated countOrdered By: Yakelin Staley on 06-22-2023 Erythrocyte distribution width (RBC) [Ratio] 15.0 % Normal 11.9-15.3 [facility] Comment on above: Performed By: #### C BC #### [address] Erythrocytes [#/volume] in B lood by Automated countOrdered By: Yakelin Rebeka on 06-22-2023 RBC (Bld) [#/Vol] 4.77 10*6/uL Normal 3.60-5.00 [facility] Comment on above: Performed By: #### C BC #### [address] Hematocrit [Volume Fraction] of Blood by Automated countOrdered By: Yakelin Rebeka on 06-22-2023 Hematocrit (Bld) [Volume fraction] 42.7 % Normal 34.0-46.4 [facility] Comment on above: Performed By: #### C BC #### [address] Hemoglobin [Mass/volume] in BloodOrdered By: Yakelin Rebeka on 06-22-2023 Hemoglobin (Bld) [Mass/Vol] 14.5 g/dL Normal 11.8-15.4 [facility] Comment on above: Performed By: #### C BC #### [address] Leukocytes [#/volume] correc janet for nucleated erythrocytes in Blood by Automated counOrdered By: Yakelin Rebeka on 06-22-2023 WBC corrected for nucl RBC Auto (Bld) [#/Vol] 14.3 10*3/uL 3.8-11.6 [facility] Leukocytes [#/volume] in Blo od by Automated countOrdered By: Yakelin Staley on 06-22-2023 WBC (Bld) [#/Vol] 14.3 10*3/uL High 3.8-11.6 [facility] Comment on above: Performed By: #### C BC #### [place] [address] [place] Lymphocytes [#/volume] in Bl ood by Automated countOrdered By: Yakelin Staley on 06-22-2023 Lymphocytes (Bld) [#/Vol] 2.6 10*3/uL Normal 1.00-4.8 [facility] Comment on above: Performed By: #### C BC #### [address] Lymphocytes/100 leukocytes i n Blood by Automated countOrdered By: Yakelin Staley on 06-22-2023 Lymphocytes/100 WBC (Bld) 18.0 % Normal . [facility] Comment on above: Performed By: #### C BC #### [address] MCH [Entitic mass] by Automa janet countOrdered By: Yakelin Staley on 06-22-2023 MCH (RBC) [Entitic mass] 30.3 pg Normal 24.7-34.3 [facility] Comment on above: Performed By: #### C BC #### [address] MCHC Auto (RBC) [Mass/Vol]Or dered By: Yakelin Staley on 06-22-2023 MCHC (RBC) [Mass/Vol] 33.9 g/dL 32.0-35.0 [facility] MCV [Entitic volume] by Auto mated countOrdered By: Yakelin Staley on 06-22-2023 MCV (RBC) [Entitic vol] 89.4 fL Normal 80-100 [facility] Comment on above: Performed By: #### C BC #### [place] [address] [place] Neutrophils [#/volume] in Bl ood by Automated countOrdered By: Yakelin Canalesevan on 06-22-2023 Neutrophils (Bld) [#/Vol] 10.6 10*3/uL High 1.8-7.7 [facility] Comment on above: Performed By: #### C BC #### [address] Nucleated erythrocytes [Pres ence] in Blood by Automated countOrdered By: Yakelin Canalesevan on 06-22-2023 Nucleated RBC Auto Ql (Bld) 0.1 /100{WBC} 0-0.5 [facility] Platelet mean volume [Entiti c volume] in Blood by Automated countOrdered By: Yakelin Canalesagapitojuan pablo on 06-22-2023 Platelet mean volume (Bld) [Entitic vol] 8.3 fL Normal 6.3-10.7 [facility] Comment on above: Performed By: #### C BC #### [address] Platelets [#/volume] in Bloo d by Automated countOrdered By: Yakelin Canalesevan on 06-22-2023 Platelets (Bld) [#/Vol] 262 10*3/uL Normal 150-450 [facility] Comment on above: Performed By: #### C BC #### [address] Complete Blood Count Auto Di ffon 03-24-2023 Basophils (Bld) [#/Vol] 0.1 10*3/uL Normal 0.0-0.2 [facility] Comment on above: Result Comment: PERF ORMED BY: [place] [address] PATHOLOGIST CONFIGURATION RELEASE MANAGER SHANTE LOMBARDI M.D. Performed By: #### C BC #### [address] Basophils/100 WBC (Bld) 0.7 % Normal . [facility] Comment on above: Performed By: #### C BC #### [address] Eosinophils (Bld) [#/Vol] 0.4 10*3/uL Normal 0.0-0.45 [facility] Comment on above: Performed By: #### C BC #### [address] Eosinophils/100 WBC (Bld) 2.2 % Normal . [facility] Comment on above: Performed By: #### C BC #### [address] Erythrocyte distribution width (RBC) [Ratio] 14.4 % Normal 11.9-15.3 [facility] Comment on above: Performed By: #### C BC #### [address] Hematocrit (Bld) [Volume fraction] 42.6 % Normal 34.0-46.4 [facility] Comment on above: Performed By: #### C BC #### [address] Hemoglobin (Bld) [Mass/Vol] 14.2 g/dL Normal 11.8-15.4 [facility] Comment on above: Performed By: #### C BC #### [address] Lymphocytes (Bld) [#/Vol] 2.9 10*3/uL Normal 1.00-4.8 [facility] Comment on above: Performed By: #### C BC #### [address] Lymphocytes/100 WBC (Bld) 17.3 % Normal . [facility] Comment on above: Performed By: #### C BC #### [address] MCH (RBC) [Entitic mass] 30.2 pg Normal 24.7-34.3 [facility] Comment on above: Performed By: #### C BC #### [address] MCV (RBC) [Entitic vol] 90.7 fL Normal 80-100 [facility] Comment on above: Performed By: #### C BC #### [address] Mean Corpuscular HGB Conc 33.3 g/dL Normal 32.0-35.0 [facility] Comment on above: Performed By: #### C BC #### [address] Monocytes (Bld) [#/Vol] 1.1 10*3/uL High 0.0-0.8 [facility] Comment on above: Performed By: #### C BC #### [facility] [address] [place] [address] [place] Monocytes/100 WBC (Bld) 6.4 % Normal . [facility] Comment on above: Performed By: #### C BC #### [facility] [address] [place] [id number] [place] Neutrophils (Bld) [#/Vol] 12.2 10*3/uL High 1.8-7.7 [facility] Comment on above: Performed By: #### C BC #### [facility] [address] [place] [id number] [facility] Neutrophils/100 WBC (Bld) 73.4 % Normal . [facility] Comment on above: Performed By: #### C BC #### [address] NRBC% 0.1 /100{WBC} Normal 0-0.5 [facility] Comment on above: Performed By: #### C BC #### [facility] [address] [place] [address] [place] Platelet mean volume (Bld) [Entitic vol] 8.5 fL Normal 6.3-10.7 [facility] Comment on above: Performed By: #### C BC #### [facility] [address] [place] [address] [place] Platelets (Bld) [#/Vol] 302 10*3/uL Normal 150-450 [facility] Comment on above: Performed By: #### C BC #### [place] [address] [place] RBC (Bld) [#/Vol] 4.70 10*6/uL Normal 3.60-5.00 [facility] Comment on above: Performed By: #### C BC #### [place] [id number] [place] WBC (Bld) [#/Vol] 16.7 10*3/uL High 3.8-11.6 [facility] Comment on above: Performed By: #### C BC #### [facility] [address] [place] [id number] [facility] Albumin [Mass/volume] in Ser um or Plasma by Bromocresol green (BCG) dye binding methoOrdered By: Alta Schmid on 03-04-2023 Albumin BCG dye [Mass/Vol] 4.1 g/dL 3.5-5.7 [facility] Automated erythrocytes count in urine sediment (number/area)Ordered By: Alta Schmid on 03-04-2023 RBC Auto (Urine sed) [#/Area] 0-1 [HPF] 0-4 [facility] Automated leukocytes count i n urine sediment (number/area)Ordered By: Alta Schmid on 03-04-2023 WBC Auto (Urine sed) [#/Area] 5-9 [HPF] 0-4 [facility] Bilirubin Test strip Ql (U)O rdered By: Alta Schmid on 03-04-2023 Bilirubin Ql (U) Negative Negative [facility] Calcium [Mass/volume] in Ser um or PlasmaOrdered By: Alta Schmid on 03-04-2023 Calcium [Mass/Vol] 9.2 mg/dL 8.6-10.3 [facility] Carbon dioxide, total [Moles /volume] in Serum or PlasmaOrdered By: Alta Schmid on 03-04-2023 CO2 [Moles/Vol] 25.4 mmol/L 21.0-31.0 [facility] Chloride [Moles/volume] in S carlos or PlasmaOrdered By: Alta Schmid on 03-04-2023 Chloride [Moles/Vol] 104 mmol/L 98-107 [facility] Color Auto (U)Ordered By: Ab richard Schmid on 03-04-2023 Color (U) Yellow Yellow [facility] Creatinine [Mass/volume] in Serum or PlasmaOrdered By: Alta Schmid on 03-04-2023 Creatinine [Mass/Vol] 1.59 mg/dL 0.60-1.20 [facility] Creatinine [Mass/volume] in UrineOrdered By: Alta Schmid on 03-04-2023 Creatinine (U) [Mass/Vol] 100.0 mg/dL 11.0-20.0 [facility] Erythrocyte distribution wid th Auto (RBC) [Ratio]Ordered By: Alta Schmid on 03-04-2023 Erythrocyte distribution width (RBC) [Ratio] 14.8 % 11.9-15.3 [facility] Glucose [Mass/volume] in Ser um or PlasmaOrdered By: Alta Schmid on 03-04-2023 Glucose [Mass/Vol] 232 mg/dL 70-100 [facility] Comment on above: ADA recommended refe rence rangeRandom Glucose Reference Range is dependent on time and content of last meal. Glucose of more than 200 mg/dL in a nonstressed, ambulatory subject supports the diagnosis of Diabetes Mellitus. Hematocrit Auto (Bld) [Volum e fraction]Ordered By: Alta Schmid on 03-04-2023 Hematocrit (Bld) [Volume fraction] 42.6 % 34.0-46.4 [facility] Hemoglobin [Mass/volume] in BloodOrdered By: Alta Schmid on 03-04-2023 Hemoglobin (Bld) [Mass/Vol] 14.5 g/dL 11.8-15.4 [facility] Ketones Auto test strip (U) [Mass/Vol]Ordered By: Alta Schmid on 03-04-2023 Ketones (U) [Mass/Vol] Negative Negative [facility] - UrinalysisOrder ed By: Alta Schmid on 03-04-2023 Hyaline casts LM Ql (Urine sed) 0-8 [LPF] 0-8 [facility] Leukocytes [#/volume] correc janet for nucleated erythrocytes in Blood by Automated counOrdered By: Alta Schmid on 03-04-2023 WBC corrected for nucl RBC Auto (Bld) [#/Vol] 16.2 10*3/uL 3.8-11.6 [facility] MCH Auto (RBC) [Entitic mass ]Ordered By: Alta Schmid on 03-04-2023 MCH (RBC) [Entitic mass] 31.1 pg 24.7-34.3 [facility] MCHC Auto (RBC) [Mass/Vol]Or dered By: Alta Schmid on 03-04-2023 MCHC (RBC) [Mass/Vol] 34.0 g/dL 32.0-35.0 [facility] MCV Auto (RBC) [Entitic vol] Ordered By: Alta Schmid on 03-04-2023 MCV (RBC) [Entitic vol] 91.6 fL 80-100 [facility] Magnesium [Mass/volume] in S carlos or PlasmaOrdered By: Alta Schmid on 03-04-2023 Magnesium [Mass/Vol] 1.4 mg/dL 1.9-2.7 [facility] Nitrite Test strip Ql (U)Ord ered By: Alta Schmid on 03-04-2023 Nitrite Ql (U) Negative Negative [facility] No Panel InformationOrdered By: Alta Schmid on 03-04-2023 Estimated GFR (CKD-EPI) 35.395 mL/Min [facility] Creatinine Clearance (Chem N/A [facility] Parathyrin.intact [Mass/volu me] in Serum or PlasmaOrdered By: Alta Schmid on 03-04-2023 Parathyrin.intact [Mass/Vol] 87.0 pg/mL 12-88 [facility] Phosphate [Mass/volume] in S carlos or PlasmaOrdered By: Alta Schmid on 03-04-2023 Phosphate [Mass/Vol] 4.0 mg/dL 3.7-7.2 [facility] Platelet mean volume Auto (B ld) [Entitic vol]Ordered By: Alta Schmid on 03-04-2023 Platelet mean volume (Bld) [Entitic vol] 8.5 fL 6.3-10.7 [facility] Platelets Auto (Bld) [#/Vol] Ordered By: Alta Schmid on 03-04-2023 Platelets (Bld) [#/Vol] 327 10*3/uL 150-450 [facility] Potassium [Moles/volume] in Serum or PlasmaOrdered By: Alta Schmid on 03-04-2023 Potassium [Moles/Vol] 4.9 mmol/L 3.5-5.1 [facility] Protein Auto test strip (U) [Mass/Vol]Ordered By: Alta Schmid on 03-04-2023 Protein (U) [Mass/Vol] Negative Negative [facility] Protein [Mass/volume] in Uri neOrdered By: Alta Schmid on 03-04-2023 Protein (U) [Mass/Vol] 14 mg/dL 0-9 [facility] RBC Auto (Bld) [#/Vol]Ordere d By: Alta Schmid on 03-04-2023 RBC (Bld) [#/Vol] 4.65 10*6/uL 3.60-5.00 [facility] Serum or plasma anion gap de terminationOrdered By: Alta Schmid on 03-04-2023 Anion gap [Moles/Vol] 13.5 mmol/L 6.0-15.0 [facility] Sodium [Moles/volume] in Ser um or PlasmaOrdered By: Alta Schmid on 03-04-2023 Sodium [Moles/Vol] 138 mmol/L 136-145 [facility] Specific gravity Auto test s trip (U) [Rel density]Ordered By: Alta Schmid on 03-04-2023 Specific gravity (U) [Rel density] 1.014 1.001-1.030 [facility] Squamous epithelial cells de tection in urine sediment by light microscopyOrdered By: Alta Schmid on 03-04-2023 Epithelial cells.squamous LM Ql (Urine sed) 5-9 [HPF] 0-2 [facility] Urate [Mass/volume] in Serum or PlasmaOrdered By: Alta Schmid on 03-04-2023 Urate [Mass/Vol] 10.7 mg/dL 2.3-6.6 [facility] Urea nitrogen [Mass/volume] in Serum or PlasmaOrdered By: Alta Schmid on 03-04-2023 Urea nitrogen [Mass/Vol] 42 mg/dL 7-25 [facility] Urine bacteria detection by automated methodOrdered By: Alta Schmid on 03-04-2023 Bacteria Auto Ql (U) None seen None Seen [facility] Urine clarity by refractomet ry automatedOrdered By: Alta Schmid on 03-04-2023 Clarity Refractometry automated (U) Clear Clear [facility] Urine culture routineOrdered By: Alta Schmid on 03-04-2023 Bacteria identified Cx Nom (U) 2 Days [facility] Urine glucose measurement by automated test strip (mass/volume)Ordered By: Alta Schmid on 03-04-2023 Glucose Auto test strip (U) [Mass/Vol] Normal mg/dL Normal [facility] Urine hemoglobin detection b y automated test stripOrdered By: Alta Schmid on 03-04-2023 Hemoglobin Auto test strip Ql (U) Negative Negative [facility] Urine leukocyte esterase det ection by automated test stripOrdered By: Atla Schmid on 03-04-2023 Leukocyte esterase Auto test strip Ql (U) 1+ Negative [facility] Urine protein/creatinine rat ioOrdered By: Alta Schmid on 03-04-2023 Protein/Creatinine (U) [Ratio] 140 mg/g{Cre} 0-200 [facility] Urobilinogen Auto test strip (U) [Mass/Vol]Ordered By: Alta Schmid on 03-04-2023 Urobilinogen (U) [Mass/Vol] Normal mg/dL Normal [facility] Vitamin D+Metabolites [Mass/ volume] in Serum or PlasmaOrdered By: Alta Schmid on 03-04-2023 Vitamin D+Metabolites [Mass/Vol] 41.9 ng/mL 30-100 [facility] Comment on above: VITAMIN D STATUS 25( [place])VITAMIN D RANGE (ng/mL) Deficient <20 Insufficient 20 to <30Sufficient 30 to 100Reference: Raven MF,Isai CLARK, Randa WALSH, et al. Evaluation,treatment, and prevention of vitamin D deficiency; an Endocrine Society clinical practice guideline. JCEM. 2010; 96(7):1911-30. pH Auto test strip (U)Ordere d By: Alta Schmid on 03-04-2023 pH (U) 5.5 [pH] 5.0-9.0 [facility] Office Visit (Cardiology)on 12-08-2022 Follow-up visit Diagnoses/Problems Assessed Hypertension (401.9) (I10) Current smoker (305.1) (F17.200) 1/2 pack daily. Diabetes (250.00) (E11.9) Class 1 obesity with body mass index (BMI) of 32.0 to 32.9 in adult (278.00,V85.32) (E66.9,Z68.32) Orders Class 1 obesity with body mass index (BMI) of 32.0 to 32.9 in adult Healthy Weight Tips; Status:Complete; Done: [id number] Some eating tips that can help you lose weight.; Status:Complete; Done: [id number] SocHx: Current smoker Tobacco Use Screening; Status:Complete; Done: [id number] You need to stop smoking. Though it is not easy, more than half of all adult smokers have quit. We encourage you to write down all the reasons you should quit smoking and set a quit date for yourself. Ask us how we can help. You may also call 6-613-BJFQNOW for free resources and assistance.; Status:Complete; Done: [id number] Patient Instructions Please bring all medicines, vitamins, [...] Allergies Medication predniSONE Allergy; Hives;; Recorded By: Valreia Jarvis; 05/13/2021 11:04:28 AM Social History Problems [...] negative for complaint. Vitals Vital Signs Recorded: [id number] 08:41AM Heart Rate66, R Radial Lbhzscsf062, RUE, Sitting Kaelsrqxm98, RUE, Sitting Height5 ft 3 in Dwlpot101 lb BMI Wjxzrbbvdx26.95 kg/m2 BSA Calculated1.88 Tobacco Usea) Yes Patient [...] a) No falls within the last year -[facility] DO Work Phone: Tobacco use status [facility]PH[facility] a) Yes [facility] DO Work Phone: Tobacco Screening. Yes -[facility] DO Work Phone: CBC AUTO DIFFon 06-28-2022 BASO # 0.1 103/ul Normal 0.0-0.1 [facility] Comment on above: Performed By: #### C BC #### [facility] [address] [place] [address] Dr. Briana Dillard Basophils/100 WBC (Bld) 0.8 % Normal 0.2-2.0 [facility] Comment on above: Performed By: #### C BC #### [facility] [address] [place] [address] Dr. Briana Dillard EO # 0.3 103/ul Normal 0.0-0.7 [facility] Comment on above: Performed By: #### C BC #### [facility] [address] [address] [address] Briana Dillard Eosinophils/100 WBC (Bld) 2.5 % Normal 0.9-7.0 [facility] Comment on above: Performed By: #### C BC #### [facility] [address] [place] [address] Dr. Briana Dillard Erythrocyte distribution width (RBC) [Ratio] 14.8 % Normal 11.0-15.0 [facility] Comment on above: Performed By: #### C BC #### [facility] [address] [address] [address] Briana Dillard Hematocrit (Bld) [Volume fraction] 43.8 % Normal 36.0-48.0 [facility] Comment on above: Performed By: #### C BC #### [facility] [address] [place] [address] Dr. Briana Dillard Hemoglobin (Bld) [Mass/Vol] 14.5 g/dL Normal 12.0-16.0 [facility] Comment on above: Performed By: #### C BC #### [facility] [address] [place] [address] Dr. Briana Dillard IG # 0.13 10e3/ul Critically high 0.00-0.03 [facility] Comment on above: Performed By: #### C BC #### [facility] [address] [place] [address] Dr. Briana Dlilard IG % 1.0 % Critically high 0.0-0.5 [facility] Comment on above: Performed By: #### C BC #### [facility] [address] [place] [address] Dr. Briana Dillard LYMPH # 2.5 103/ul Normal 1.2-3.8 [facility] Comment on above: Performed By: #### C BC #### [facility] [address] [place] [address] Dr. Briana Dillard Lymphocytes/100 WBC (Bld) 19.1 % Critically low 20.5-60.0 [facility] Comment on above: Performed By: #### C BC #### [facility] [address] [place] [address] Dr. Briana Dillard MANUAL DIFF REQ NO Normal [facility] Comment on above: Performed By: #### C BC #### [facility] [address] [place] [address] Dr. Briana Dillard MCH (RBC) [Entitic mass] 30.8 pg Normal 26.7-34.0 [facility] Comment on above: Performed By: #### C BC #### [facility] [address] [address] [address] Briana Dillard MCHC (RBC) [Mass/Vol] 33.1 g/dL Normal 29.9-35.2 [facility] Comment on above: Performed By: #### C BC #### [facility] [address] [address] [address] Briana Dillard MCV (RBC) [Entitic vol] 93.0 fL Normal 81.0-99.0 [facility] Comment on above: Performed By: #### C BC #### [facility] [address] [address] [address] Briana Dillard MONO # 0.7 103/ul Normal 0.3-0.8 [facility] Comment on above: Performed By: #### C BC #### [facility] [address] [place] [address] Dr. Briana Dillard Monocytes/100 WBC (Bld) 5.7 % Normal 1.7-12.0 [facility] Comment on above: Performed By: #### C BC #### [facility] [address] [address] [address] Briana Dillard NEUT # 9.2 103/ul Critically high 1.4-6.5 [facility] Comment on above: Performed By: #### C BC #### [facility] [address] [place] [address] Dr. Briana Dillard Neutrophils/100 WBC (Bld) 70.9 % Normal 43.0-75.0 [facility] Comment on above: Performed By: #### C BC #### [facility] [address] [place] [address] Dr. Briana Dillard Platelet mean volume (Bld) [Entitic vol] 10.4 fL Normal 9.5-13.5 [facility] Comment on above: Performed By: #### C BC #### [facility] [address] [place] [address] Dr. Briana Dillard PLT 262 103/ul Normal 150-450 [facility] Comment on above: Performed By: #### C BC #### [facility] [address] [address] [address] Briana Dillard RBC 4.71 106/ul Normal 4.20-5.40 [facility] Comment on above: Performed By: #### C BC #### [facility] [address] [address] [address] Briana Dillard WBC 13.0 103/ul Critically high 4.0-11.0 [facility] Comment on above: Performed By: #### C BC #### [facility] [address] [address] [address] Briana Dillard DIRECT LDLon 06-28-2022 Cholesterol in LDL [Mass/Vol] 90 mg/dL Normal [facility] Comment on above: Performed By: #### C KYLE COLMENARESDM, BNP #### [facility] [address] [place] [address] Dr. Briana Dillard DLDL NORMAL SEE BELOW Normal [facility] Comment on above: Result Comment: <100 mg/dl OPTIMAL 100 - 129 mg/dl NEAR OR ABOVE OPTIMAL 130 - 159 mg/dl BORDERLINE HIGH 160 - 189 mg/dl HIGH >190 mg/dl VERY HIGH Performed By: #### C KYLE COLMENARESDM, BNP #### [facility] [address] [place] [address] Dr. Briana Dillard GLYCOHEMOGLOBIN A1Con 2022 ADA RECOMMENDATION SEE BELOW Normal [facility] Comment on above: Result Comment: ADA RECOMMENDED LIMIT 4.0 - 6.0 ADA THERAPEUTIC TARGET < 7.0 ACTION SUGGESTED > 7.0 Performed By: #### C MP CMADM, BNP #### [facility] [address] [place] [address] Dr. Briana Dillard Glucose [Mass/Vol] 229 mg/dL Normal [facility] Comment on above: Performed By: #### C MP CMADM, BNP #### [facility] [address] [place] [address] Dr. Briana Dillard HbA1c (Bld) [Mass fraction] 9.6 % Critically high 4.5-6.2 [facility] Comment on above: Performed By: #### C MP, CMADM, BNP #### [facility] [address] [address] [address] Briana Dillard LIPID PROFILEon 06-28-2022 CHOL-HDL RATIO NORM SEE BELOW Normal [facility] Comment on above: Result Comment: 3.3 - 4.4 LOW RISK 4.4 - 7.1 AVERAGE RISK 7.1 - 11.0 MODERATE RISK >11.0 HIGH RISK Performed By: #### C MP, CMADM, BNP #### [facility] [address] [address] [address] Briana Dillard Cholesterol [Mass/Vol] 219 mg/dL Critically high <=200 [facility] Comment on above: Performed By: #### C MP, CMADM, BNP #### [facility] [address] [address] [address] Briana Dillard Cholesterol in HDL [Mass/Vol] 32 mg/dL Critically low 40-60 [facility] Comment on above: Performed By: #### C MP, CMADM, BNP #### [facility] [address] [address] [address] Briana Dillard Cholesterol.total/Choles terol in HDL [Mass ratio] 6.8 {ratio} Normal [facility] Comment on above: Performed By: #### C MP, CMADM, BNP #### [facility] [address] [address] [address] Briana Dillard HDL NORMAL > or = 60 mg/dl - LOW CARDIOVASCULAR RISK <40 mg/dl - HIGH CARDIOVASCULAR RISK Normal [facility] Comment on above: Performed By: #### C MP, CMADM, BNP #### [facility] [address] [address] [address] Briana Dillard LDL CALC NORMAL SEE BELOW Normal [facility] Comment on above: Result Comment: <100 mg/dl OPTIMAL 100 - 129 mg/dl NEAR OR ABOVE OPTIMAL 130 - 159 mg/dl BORDERLINE HIGH 160 - 189 mg/dl HIGH >190 mg/dl VERY HIGH Performed By: #### C MP, CMADM, BNP #### [facility] [address] [address] [address] Brinaa Dillard Triglyceride [Mass/Vol] 585 mg/dL Critically high <=150 [facility] Comment on above: Performed By: #### C MP, CMADM, BNP #### [facility] [address] [address] [address] Braina Dillard VLDL CALC 117.0 mg/dL Normal [facility] Comment on above: Performed By: #### C MP, CMADM, BNP #### [facility] [address] [address] [address] Briana Dilalrd PROF 14(COMP METB)on 023 Albumin [Mass/Vol] 3.6 g/dL Normal 3.4-5.0 [facility] Comment on above: Performed By: #### L IPID, CMP, DLDL #### [facility] [address] [place] [address] Dr. Briana Dillard Albumin/Globulin [Mass ratio] 0.9 {ratio} Normal [facility] Comment on above: Performed By: #### L IPID, CMP, DLDL #### [facility] [address] [place] [address] Dr. Briana Dillard ALP [Catalytic activity/Vol] 117 U/L Critically high 46-116 [facility] Comment on above: Performed By: #### L IPID, CMP, DLDL #### [facility] [address] [place] [address] Dr. Briana Dillard ALT [Catalytic activity/Vol] 42 U/L Normal 14-59 [facility] Comment on above: Performed By: #### L IPID, CMP, DLDL #### [facility] [address] [place] [address] Dr. Briana Dillard Anion gap [Moles/Vol] 15.4 mmol/L Normal [facility] Comment on above: Performed By: #### L IPID, CMP, DLDL #### [facility] [address] [place] [address] Dr. Briana Dillard AST [Catalytic activity/Vol] 29 U/L Normal 15-37 [facility] Comment on above: Performed By: #### L IPID, CMP, DLDL #### [facility] [address] [address] [address] Briana Dillard Bilirubin [Mass/Vol] 0.4 mg/dL Normal 0.2-1.0 [facility] Comment on above: Performed By: #### L IPID, CMP, DLDL #### [facility] [address] [address] [address] Briana Dillard Calcium [Mass/Vol] 10.2 mg/dL Critically high 8.5-10.1 [facility] Comment on above: Performed By: #### L IPID, CMP, DLDL #### [facility] [address] [address] [address] Briana Dillard Chloride [Moles/Vol] 100 mmol/L Normal 98-107 [facility] Comment on above: Performed By: #### L IPID, CMP, DLDL #### [facility] [address] [place] [address] Dr. Briana Dillard CO2 [Moles/Vol] 27.3 mmol/L Normal 21.0-32.0 [facility] Comment on above: Performed By: #### L IPID, CMP, DLDL #### [facility] [address] [address] [address] Briana Dillard Creatinine [Mass/Vol] 1.40 mg/dL Critically high 0.55-1.02 [facility] Comment on above: Performed By: #### L IPID, CMP, DLDL #### [facility] [address] [address] [address] Briana Dillard EGFR-AF ALGERIAN 46 mL/min/1.73m2 Critically low >=60 [facility] Comment on above: Performed By: #### L IPID, CMP, DLDL #### [facility] [address] [place] [address] Dr. Briana Dillard EGFR-NON AF ALGERIAN 38 mL/min/1.73m2 Critically low >=60 [facility] Comment on above: Performed By: #### L IPID, CMP, DLDL #### [facility] [address] [address] [address] Briana Dillard Globulin (S) [Mass/Vol] 3.9 g/dL Normal [facility] Comment on above: Performed By: #### L IPID, CMP, DLDL #### [facility] [address] [address] [address] Briana Dillard Glucose [Mass/Vol] 295 mg/dL Critically high 74-106 [facility] Comment on above: Performed By: #### L IPID, CMP, DLDL #### [facility] [address] [address] [address] Briana Dillard Potassium [Moles/Vol] 4.7 mmol/L Normal 3.5-5.1 [facility] Comment on above: Performed By: #### L IPID, CMP, DLDL #### [facility] [address] [place] [address] Dr. Briana Dillard Protein [Mass/Vol] 7.5 g/dL Normal 6.4-8.2 [facility] Comment on above: Performed By: #### L IPID, CMP, DLDL #### [facility] [address] [address] [address] Briana Dillard Sodium [Moles/Vol] 138 mmol/L Normal 136-145 [facility] Comment on above: Performed By: #### L IPID, CMP, DLDL #### [facility] [address] [address] [address] Briana Dillard Urea nitrogen [Mass/Vol] 34.0 mg/dL Critically high 7.0-18 .0 [facility] Comment on above: Performed By: #### L IPID, CMP, DLDL #### [facility] [address] [place] [address] Dr. Briana Dillard Urea nitrogen/Creatinine [Mass ratio] 24.3 mg/mg Normal [facility] Comment on above: Performed By: #### L IPID, CMP, DLDL #### [facility] [address] [address] [address] Briana Dillard UA RANDOM W/MICROSCOPICon BACTERIA TRACE Abnormal NONE SEEN [facility] Comment on above: Performed By: #### C MP, CMADM, BNP #### [facility] [address] [address] [address] Briana Dillard Bilirubin Ql (U) Negative Normal NEGATIVE [facility] Comment on above: Performed By: #### C MP, CMADM, BNP #### [facility] [address] [address] [address] Briana Dillard CAST NONE SEEN Normal NONE SEEN [facility] Comment on above: Performed By: #### C MP, CMADM, BNP #### [facility] [address] [address] [address] Briana Dillard Clarity (U) CLEAR Normal CLEAR [facility] Comment on above: Performed By: #### C MP, CMADM, BNP #### [facility] [address] [place] [address] Dr. Briana Dillard Color (U) LT. YELLOW Normal YELLOW [facility] Comment on above: Performed By: #### C MP, CMADM, BNP #### [facility] [address] [address] [address] Briana Dillard Crystals LM Nom (Urine sed) NONE SEEN Normal NONE SEEN [facility] Comment on above: Performed By: #### C MP, CMADM, BNP #### [facility] [address] [address] [address] Briana Dillard Epithelial cells LM Ql (Urine sed) MANY Abnormal NONE SEEN /RARE [facility] Comment on above: Performed By: #### C MP, CMADM, BNP #### [facility] [address] [address] [address] Briana Dillard Glucose Ql (U) Negative Normal NEGATIVE [facility] Comment on above: Performed By: #### C MP, CMADM, BNP #### [facility] [address] [place] [address] Dr. Briana Dillard Hemoglobin Ql (U) Negative Normal NEGATIVE [facility] Comment on above: Performed By: #### C MP, CMADM, BNP #### [facility] [address] [address] [address] Briana Dillard Ketones Ql (U) Negative Normal NEGATIVE [facility] Comment on above: Performed By: #### C MP, CMADM, BNP #### [facility] [address] [address] [address] Briana Dillard LEUKOCYTES TRACE Abnormal NEGATIVE [facility] Comment on above: Performed By: #### C MP, CMADM, BNP #### [facility] [address] [address] [address] Briana Dillard MUCOUS NONE SEEN Normal NONE SEEN [facility] Comment on above: Performed By: #### C MP, CMADM, BNP #### [facility] [address] [address] [address] Briana Dillard Nitrite Ql (U) Negative Normal NEGATIVE [facility] Comment on above: Performed By: #### C MP, CMADM, BNP #### [facility] [address] [place] [address] Dr. Briana Dilladr pH (U) 6.0 [pH] Normal 5-9 [facility] Comment on above: Performed By: #### C MP, CMADM, BNP #### [facility] [address] [place] [address] Dr. Briana Dillard RBC 0-2 Normal 0-2 [facility] [facility] Comment on above: Performed By: #### C MP, CMADM, BNP #### [facility] [address] [place] [address] Dr. Briana Dillard SPEC GRAVITY 1.010 Normal 1.005-<=1.025 [facility] [place] Comment on above: Performed By: #### C MP, CMADM, BNP #### [facility] [address] [place] [address] Dr. Briana Dillard UA PROTEIN TRACE Normal NEGATIVE/ TRACE [facility] Comment on above: Performed By: #### C MP, CMADM, BNP #### [facility] [address] [place] [address] Dr. Briana Dillard Urobilinogen Qn (U) 0.2 {Samuel'U}/dL Normal 0.2 - 1. 0 [facility] Comment on above: Performed By: #### C MP, CMADM, BNP #### [facility] [address] [address] [address] Briana Dillard WBC 2-5 Abnormal NONE SEEN [facility] Comment on above: Performed By: #### C MP, CMADM, BNP #### [facility] [address] [address] [address] Briana Dillard URINE T PROTEIN CREAT RATIOo n 06-28-2022 Protein (U) [Mass/Vol] 30.3 mg/dL Critically high <=12.0 [facility] Comment on above: Performed By: #### C MP, CMADM, BNP #### [facility] [address] [address] [address] Briana Dillard UR PROT CREAT RAT 0.80 Normal [facility] Comment on above: Performed By: #### C MP, CMADM, BNP #### [facility] [address] [place] [address] Dr. Briana Dillard URINE CREAT 38.11 mg/dL Normal 20.00-300.00 [facility] Comment on above: Performed By: #### C MP, CMADM, BNP #### [facility] [address] [address] [address] Briana Dillard POINT OF CARE GLUCOSEon 05-05 Glucose [Mass/Vol] 296 mg/dL Critically high 74-106 [facility] Comment on above: Performed By: #### C MP, CMADM, BNP #### [facility] [address] [address] [address] Briana Dillard POINT OF CARE GLUCOSEon 05-04 Glucose [Mass/Vol] 312 mg/dL Critically high 74-106 [facility] Comment on above: Performed By: #### C BC #### [facility] [address] [place] [address] Dr. Briana Dillard GLYCOHEMOGLOBIN A1Con 2021 ADA RECOMMENDATION SEE BELOW Normal [facility] Comment on above: Result Comment: ADA RECOMMENDED LIMIT 4.0 - 6.0 ADA THERAPEUTIC TARGET < 7.0 ACTION SUGGESTED > 7.0 Performed By: #### A 1C #### [facility] [address] [place] [address] Dr. Briana Dillard Glucose [Mass/Vol] 223 mg/dL Normal [facility] Comment on above: Performed By: #### A 1C #### [facility] [address] [place] [address] Dr. Briana Dillard HbA1c (Bld) [Mass fraction] 9.4 % Critically high 4.5-6.2 [facility] Comment on above: Performed By: #### A 1C #### [facility] [address] [place] [address] Dr. Briana Dillard CBC AUTO DIFFon 11-29-2021 BASO # 0.1 103/ul Normal 0.0-0.1 [facility] Comment on above: Performed By: #### C BC #### [facility] [address] [place] [address] Dr. Briana Dillard Basophils/100 WBC (Bld) 0.9 % Normal 0.2-2.0 [facility] Comment on above: Performed By: #### C BC #### [facility] [address] [place] [address] Dr. Briana Dillard EO # 0.3 103/ul Normal 0.0-0.7 [facility] Comment on above: Performed By: #### C BC #### [facility] [address] [place] [address] Dr. Briana Dillard Eosinophils/100 WBC (Bld) 2.7 % Normal 0.9-7.0 [facility] Comment on above: Performed By: #### C BC #### [facility] [address] [place] [address] Dr. Briana Dillard Erythrocyte distribution width (RBC) [Ratio] 15.8 % Critically high 11.0-15.0 [facility] Comment on above: Performed By: #### C BC #### [facility] [address] [place] [address] Dr. Briana Dillard Hematocrit (Bld) [Volume fraction] 39.4 % Normal 36.0-48.0 [facility] Comment on above: Performed By: #### C BC #### [facility] [address] [address] [address] Briana Dillard Hemoglobin (Bld) [Mass/Vol] 13.0 g/dL Normal 12.0-16.0 [facility] Comment on above: Performed By: #### C BC #### [facility] [address] [address] [address] Briana Dillard IG # 0.12 10e3/ul Critically high 0.00-0.03 [facility] Comment on above: Performed By: #### C BC #### [facility] [address] [address] [address] Briana Dillard IG % 1.1 % Critically high 0.0-0.5 [facility] [place] Comment on above: Performed By: #### C BC #### [facility] [address] [place] [address] Dr. Briana Dillard LYMPH # 2.7 103/ul Normal 1.2-3.8 [facility] Comment on above: Performed By: #### C BC #### [facility] [address] [place] [address] Dr. Briana Dillard Lymphocytes/100 WBC (Bld) 25.6 % Normal 20.5-60.0 [facility] Comment on above: Performed By: #### C BC #### [facility] [address] [place] [address] Dr. Briana Dillard MANUAL DIFF REQ NO Normal [facility] [place] Comment on above: Performed By: #### C BC #### [facility] [address] [place] [address] Dr. Briana Dillard MCH (RBC) [Entitic mass] 30.9 pg Normal 26.7-34.0 [facility] Comment on above: Performed By: #### C BC #### [facility] [address] [place] [address] Dr. Briana Dillard MCHC (RBC) [Mass/Vol] 33.0 g/dL Normal 29.9-35.2 [facility] Comment on above: Performed By: #### C BC #### [facility] [address] [place] [address] Dr. Briana Dillard MCV (RBC) [Entitic vol] 93.6 fL Normal 81.0-99.0 [facility] Comment on above: Performed By: #### C BC #### [facility] [address] [place] [address] Dr. Briana Dillard MONO # 0.8 103/ul Normal 0.3-0.8 [facility] Comment on above: Performed By: #### C BC #### [facility] [address] [place] [address] Dr. Briana Dillard Monocytes/100 WBC (Bld) 7.9 % Normal 1.7-12.0 [facility] Comment on above: Performed By: #### C BC #### [facility] [address] [place] [address] Dr. Briana Dillard NEUT # 6.6 103/ul Critically high 1.4-6.5 [facility] Comment on above: Performed By: #### C BC #### [facility] [address] [place] [address] Dr. Briana Dillard Neutrophils/100 WBC (Bld) 61.8 % Normal 43.0-75.0 [facility] Comment on above: Performed By: #### C BC #### [facility] [address] [place] [address] Dr. Briana Dillard Platelet mean volume (Bld) [Entitic vol] 10.3 fL Normal 9.5-13.5 [facility] Comment on above: Performed By: #### C BC #### [facility] [address] [place] [address] Dr. Briana Dillard PLT 234 103/ul Normal 150-450 [facility] Comment on above: Performed By: #### C BC #### [facility] [address] [place] [address] Dr. Briana Dillard RBC 4.21 106/ul Normal 4.20-5.40 [facility] Comment on above: Performed By: #### C BC #### [facility] [address] [place] [address] Dr. Briana Dillard WBC 10.6 103/ul Normal 4.0-11.0 [facility] Comment on above: Performed By: #### C BC #### [facility] [address] [address] [address] Briana Dillard GLYCOHEMOGLOBIN A1Con 2021 ADA RECOMMENDATION SEE BELOW Normal [facility] Comment on above: Result Comment: ADA RECOMMENDED LIMIT 4.0 - 6.0 ADA THERAPEUTIC TARGET < 7.0 ACTION SUGGESTED > 7.0 Performed By: #### C BC #### [facility] [address] [address] [address] Briana Dillard Glucose [Mass/Vol] 220 mg/dL Normal [facility] Comment on above: Performed By: #### C BC #### [facility] [address] [place] [address] Dr. Briana Dillard HbA1c (Bld) [Mass fraction] 9.3 % Critically high 4.5-6.2 [facility] Comment on above: Performed By: #### C BC #### [facility] [address] [place] [address] Dr. Briana Dillard LIPID PROFILEon 11-29-2021 CHOL-HDL RATIO NORM SEE BELOW Normal [facility] Comment on above: Result Comment: 3.3 - 4.4 LOW RISK 4.4 - 7.1 AVERAGE RISK 7.1 - 11.0 MODERATE RISK >11.0 HIGH RISK Performed By: #### C MP, CMADM, BNP #### [facility] [address] [address] [address] Briana Dillard Cholesterol [Mass/Vol] 135 mg/dL Normal <=200 [facility] Comment on above: Performed By: #### C MP, CMADM, BNP #### [facility] [address] [place] [address] Dr. Briana Dillard Cholesterol in HDL [Mass/Vol] 44 mg/dL Normal 40-60 [facility] Comment on above: Performed By: #### C MP, CMADM, BNP #### [facility] [address] [address] [address] Briana Dillard Cholesterol in LDL [Mass/Vol] 60.2 mg/dL Normal [facility] Comment on above: Performed By: #### C MP CMADM, BNP #### [facility] [address] [address] [address] Briana Dillard Cholesterol.total/Choles terol in HDL [Mass ratio] 3.1 {ratio} Normal [facility] Comment on above: Performed By: #### C MP, CMADM, BNP #### [facility] [address] [address] [address] Briana Dillard HDL NORMAL > or = 60 mg/dl - LOW CARDIOVASCULAR RISK <40 mg/dl - HIGH CARDIOVASCULAR RISK Normal [facility] Comment on above: Performed By: #### C MP CMADM, BNP #### [facility] [address] [address] [address] Briana Dillard LDL CALC NORMAL SEE BELOW Normal [facility] Comment on above: Result Comment: <100 mg/dl OPTIMAL 100 - 129 mg/dl NEAR OR ABOVE OPTIMAL 130 - 159 mg/dl BORDERLINE HIGH 160 - 189 mg/dl HIGH >190 mg/dl VERY HIGH Performed By: #### C DARRIAN, CMADM, BNP #### [facility] [address] [address] [address] Briana Dillard Triglyceride [Mass/Vol] 154 mg/dL Critically high <=150 [facility] Comment on above: Performed By: #### C DARRIAN CMADM, BNP #### [facility] [address] [address] [address] Briana Dillard VLDL CALC 30.8 mg/dL Normal [facility] Comment on above: Performed By: #### C MP, CMADM, BNP #### [facility] [address] [address] [address] Briana Dillard POINT OF CARE GLUCOSEon 11-02 Glucose [Mass/Vol] 271 mg/dL Critically high 74-106 [facility] Comment on above: Performed By: #### C BC #### [facility] [address] [address] [address] Briana Dillard Glucose [Mass/Vol] 180 mg/dL Critically high 74-106 [facility] Comment on above: Performed By: #### C MP, CMADM, BNP #### [facility] [address] [place] [address] Dr. Briana Dillard BNPon 11-28-2021 Natriuretic peptide B (Bld) [Mass/Vol] 86.0 pg/mL Normal <=900.0 [facility] Comment on above: Performed By: #### C MP, CMADM, BNP #### [facility] [address] [place] [address] Dr. Briana Dillard CARDIAC TANIA ADMITon 022 CK [Catalytic activity/Vol] 52 U/L Normal 26-192 [facility] Comment on above: Performed By: #### C MP, CMADM, BNP #### [facility] [address] [place] [address] Dr. Briana Dillard CK.MB [Mass/Vol] 0.65 ng/mL Normal <=3.60 [facility] Comment on above: Performed By: #### C MP, CMADM, BNP #### [facility] [address] [place] [address] Dr. Briana Dillard HSTROP 4.8 pg/mL Normal 4.0-51.3 [facility] Comment on above: Result Comment: CUT- OFF POINTS HAVE BEEN ESTABLISHED BASED ON THE FOURTH UNIVERSAL DEFINITIONS OF MYOCARDIAL INFARCTION. THE UPPER REFERENCE LIMIT (URL) OF TROPONIN, DEFINED THE 99TH PERCENTILE OF cTnI DISTRIBUTION IN A REFERENCE POPULATION, HAS BEEN CONFIRMED THE DECISION THRESHOLD FOR OK DIAGNOSIS. Performed By: #### C MP, CMADM, BNP #### [facility] [address] [place] [address] Dr. Briana Dillard YONIS 47 ng/mL Normal 9-82 [facility] Comment on above: Performed By: #### C MP, CMADM, BNP #### [facility] [address] [place] [address] Dr. Briana Dillard CBC AUTO DIFFon 11-28-2021 BASO # 0.1 103/ul Normal 0.0-0.1 [facility] Comment on above: Performed By: #### C BC #### [facility] [address] [id number] Briana Dillard Basophils/100 WBC (Bld) 0.8 % Normal 0.2-2.0 [facility] Comment on above: Performed By: #### C BC #### [facility] [address] [address] [address] Briana Dillard EO # 0.2 103/ul Normal 0.0-0.7 [facility] Comment on above: Performed By: #### C BC #### [facility] [address] [address] [address] Briana Dillard Eosinophils/100 WBC (Bld) 1.4 % Normal 0.9-7.0 [facility] Comment on above: Performed By: #### C BC #### [facility] [address] [place] [address] Dr. Briana Dillard Erythrocyte distribution width (RBC) [Ratio] 15.8 % Critically high 11.0-15.0 [facility] Comment on above: Performed By: #### C BC #### [facility] [address] [address] [address] Briana Dillard Hematocrit (Bld) [Volume fraction] 42.2 % Normal 36.0-48.0 [facility] Comment on above: Performed By: #### C BC #### [facility] [address] [place] [address] Dr. Briana Dillard Hemoglobin (Bld) [Mass/Vol] 14.3 g/dL Normal 12.0-16.0 [facility] Comment on above: Performed By: #### C BC #### [facility] [address] [address] [address] Briana Dillard IG # 0.14 10e3/ul Critically high 0.00-0.03 [facility] Comment on above: Performed By: #### C BC #### [facility] [address] [address] [address] Briana Dillard IG % 1.1 % Critically high 0.0-0.5 [facility] [place] Comment on above: Performed By: #### C BC #### [facility] [address] [address] [address] Briana Dillard LYMPH # 1.9 103/ul Normal 1.2-3.8 [facility] Comment on above: Performed By: #### C BC #### [facility] [address] [place] [address] Dr. Briana Dillard Lymphocytes/100 WBC (Bld) 14.0 % Critically low 20.5-60.0 [facility] Comment on above: Performed By: #### C BC #### [facility] [address] [place] [address] Dr. Briana Dillard MANUAL DIFF REQ NO Normal [facility] Comment on above: Performed By: #### C BC #### [facility] [address] [place] [address] Dr. Briana Dillard MCH (RBC) [Entitic mass] 31.2 pg Normal 26.7-34.0 [facility] Comment on above: Performed By: #### C BC #### [facility] [address] [place] [address] Dr. Briana Dillard MCHC (RBC) [Mass/Vol] 33.9 g/dL Normal 29.9-35.2 [facility] Comment on above: Performed By: #### C BC #### [facility] [address] [place] [address] Dr. Briana Dillard MCV (RBC) [Entitic vol] 92.1 fL Normal 81.0-99.0 [facility] Comment on above: Performed By: #### C BC #### [facility] [address] [place] [address] Dr. Briana Dillard MONO # 1.1 103/ul Critically high 0.3-0.8 [facility] Comment on above: Performed By: #### C BC #### [facility] [address] [place] [address] Dr. Briana Dillard Monocytes/100 WBC (Bld) 8.0 % Normal 1.7-12.0 [facility] Comment on above: Performed By: #### C BC #### [facility] [address] [place] [address] Dr. Briana Dillard NEUT # 9.9 103/ul Critically high 1.4-6.5 [facility] [place] Comment on above: Performed By: #### C BC #### [facility] [address] [place] [address] Dr. Briana Dillard Neutrophils/100 WBC (Bld) 74.7 % Normal 43.0-75.0 [facility] Comment on above: Performed By: #### C BC #### [facility] [address] [place] [address] Dr. Briana Dillard Platelet mean volume (Bld) [Entitic vol] 10.1 fL Normal 9.5-13.5 [facility] Comment on above: Performed By: #### C BC #### [facility] [address] [place] [address] Dr. Briana Dillard PLT 241 103/ul Normal 150-450 [facility] Comment on above: Performed By: #### C BC #### [facility] [address] [place] [address] Dr. Briana Dillard RBC 4.58 106/ul Normal 4.20-5.40 [facility] Comment on above: Performed By: #### C BC #### [facility] [address] [place] [address] Dr. Briana Dillard WBC 13.2 103/ul Critically high 4.0-11.0 [facility] Comment on above: Performed By: #### C BC #### [facility] [address] [place] [address] Dr. Briana Dillard CTA CHEST WO W [...] NADJA KEMP Date: 2021-11-28 13:10 Normal [facility] Covid-19 PCR ([facility])on 11-02 SARS-CoV-2 (COVID-19) RNA ANTOINE+probe Ql (Unsp spec) Not detected Normal NOT DETECTED [facility] Comment on above: Result Comment: When [...] for this test is supported by the Junior Sales Assistant of Health and Human Service's declaration that [...] By: #### C MP, CMADM, BNP #### [facility] [address] [place] [address] Dr. Briana Dillard D-DIMERon 11-28-2021 D-DIMER 0.77 mg/L FEU Critically high <=0.59 [facility] Comment on above: Performed By: #### P T, PTT, DDIM #### [facility] [address] [place] [address] Dr. Briana Dillard D-DIMER COMMENTS SEE BELOW Normal [facility] Comment on above: Result Comment: Incr [...] By: #### P T, PTT, DDIM #### [facility] [address] [place] [address] Dr. Briana Dillard POINT OF CARE GLUCOSEon 11-02 Glucose [Mass/Vol] 213 mg/dL Critically high 74-106 [facility] Comment on above: Performed By: #### P OCGLUC #### [facility] [address] [place] [address] Dr. Briana Dillard Glucose [Mass/Vol] 255 mg/dL Critically high 74-106 [facility] Comment on above: Performed By: #### C MP, CMADM, BNP #### [facility] [address] [place] [address] Dr. Briana Dillard PROF 14(COMP METB)on 022 Albumin [Mass/Vol] 3.4 g/dL Normal 3.4-5.0 [facility] Comment on above: Performed By: #### C MP, CMADM, BNP #### [facility] [address] [place] [address] Dr. Briana Dillard Albumin/Globulin [Mass ratio] 0.9 {ratio} Normal [facility] Comment on above: Performed By: #### C MP, CMADM, BNP #### [facility] [address] [place] [address] Dr. Briana Dillard ALP [Catalytic activity/Vol] 126 U/L Critically high 46-116 [facility] Comment on above: Performed By: #### C MP, CMADM, BNP #### [facility] [address] [address] [address] Briana Dillard ALT [Catalytic activity/Vol] 30 U/L Normal 14-59 [facility] Comment on above: Performed By: #### C MP, CMADM, BNP #### [facility] [address] [address] [address] Briana Dillard Anion gap [Moles/Vol] 13.6 mmol/L Normal [facility] Comment on above: Performed By: #### C MP, CMADM, BNP #### [facility] [address] [address] [address] Briana Dillard AST [Catalytic activity/Vol] 18 U/L Normal 15-37 [facility] Comment on above: Performed By: #### C MP, CMADM, BNP #### [facility] [address] [place] [address] Dr. Briana Dillard Bilirubin [Mass/Vol] 0.4 mg/dL Normal 0.2-1.0 [facility] Comment on above: Performed By: #### C MP, CMADM, BNP #### [facility] [address] [address] [address] Briana Dillard Calcium [Mass/Vol] 8.9 mg/dL Normal 8.5-10.1 [facility] Comment on above: Performed By: #### C MP, CMADM, BNP #### [facility] [address] [address] [address] Briana Dillard Chloride [Moles/Vol] 98 mmol/L Normal 98-107 [facility] Comment on above: Performed By: #### C MP, CMADM, BNP #### [facility] [address] [address] [address] Briana Dillard CO2 [Moles/Vol] 25.0 mmol/L Normal 21.0-32.0 [facility] Comment on above: Performed By: #### C MP, CMADM, BNP #### [facility] [address] [address] [address] Briana Dillard Creatinine [Mass/Vol] 1.58 mg/dL Critically high 0.55-1.02 [facility] Comment on above: Performed By: #### C MP, CMADM, BNP #### [facility] [address] [place] [address] Dr. Briana Dillard EGFR-AF ALGERIAN 40 mL/min/1.73m2 Critically low >=60 [facility] Comment on above: Performed By: #### C MP, CMADM, BNP #### [facility] [address] [place] [address] Dr. Briana Dillard EGFR-NON AF ALGERIAN 33 mL/min/1.73m2 Critically low >=60 [facility] Comment on above: Performed By: #### C MP, CMADM, BNP #### [facility] [address] [place] [address] Dr. Briana Dillard Globulin (S) [Mass/Vol] 4.0 g/dL Normal [facility] Comment on above: Performed By: #### C MP, CMADM, BNP #### [facility] [address] [place] [address] Dr. Briana Dillard Glucose [Mass/Vol] 386 mg/dL Critically high 74-106 [facility] Comment on above: Performed By: #### C MP, CMADM, BNP #### [facility] [address] [place] [address] Dr. Briana Dillard Potassium [Moles/Vol] 4.6 mmol/L Normal 3.5-5.1 [facility] Comment on above: Performed By: #### C MP, CMADM, BNP #### [facility] [address] [place] [address] Dr. Briana Dillard Protein [Mass/Vol] 7.4 g/dL Normal 6.4-8.2 [facility] Comment on above: Performed By: #### C MP, CMADM, BNP #### [facility] [address] [place] [address] Dr. Briana Dillard Sodium [Moles/Vol] 132 mmol/L Critically low 136-145 [facility] Comment on above: Performed By: #### C MP, CMADM, BNP #### [facility] [address] [place] [address] Dr. Briana Dillard Urea nitrogen [Mass/Vol] 23.0 mg/dL Critically high 7.0-18 .0 [facility] Comment on above: Performed By: #### C MP, CMADM, BNP #### [facility] [address] [place] [address] Dr. Briana Dillard Urea nitrogen/Creatinine [Mass ratio] 14.6 mg/mg Normal [facility] Comment on above: Performed By: #### C MP, CMADM, BNP #### [facility] [address] [address] [address] Briana Dillard PROTIMEon 11-28-2021 INR Coag (PPP) [Relative time] 1.01 {INR} Normal [facility] Comment on above: Performed By: #### P T, PTT, DDIM #### [facility] [address] [place] [address] Dr. Briana Dillard INR GUIDELINES SEE BELOW Normal [facility] Comment on above: Result Comment: LURDES RED INR: 2.0 - 3.0 CONDITIONS NOT LISTED BELOW 2.5 - 3.5 FOR PROSTHETIC HEART VALVE REPLACEMENT 2.5 - 3.5 RECURRENT THROMBOSIS Performed By: #### P T, PTT, DDIM #### [facility] [address] [place] [address] Dr. Briana Dillard PT Coag (PPP) [Time] 10.9 s Normal 9.0-11.6 [facility] Comment on above: Performed By: #### P T, PTT, DDIM #### [facility] [address] [place] [address] Dr. Briana Dillard PTTon 11-28-2021 aPTT Coag (Bld) [Time] 27.5 s Normal 22.3-36.2 Th [facility] Comment on above: Performed By: #### P T, PTT, DDIM #### [facility] [address] [place] [address] Dr. Briana Dillard TROPONIN, HIGH SENSITIVITYon 11-28-2021 HSTROP 5.5 pg/mL Normal 4.0-51.3 [facility] Comment on above: Result Comment: CUT- OFF POINTS HAVE BEEN ESTABLISHED BASED ON THE FOURTH UNIVERSAL DEFINITIONS OF MYOCARDIAL INFARCTION. THE UPPER REFERENCE LIMIT (URL) OF TROPONIN, DEFINED THE 99TH PERCENTILE OF cTnI DISTRIBUTION IN A REFERENCE POPULATION, HAS BEEN CONFIRMED THE DECISION THRESHOLD FOR OK DIAGNOSIS. Performed By: #### C MP, CMADM, BNP #### [facility] [address] [place], [place] [address] Dr. Briana Dillard HSTROP 5.4 pg/mL Normal 4.0-51.3 [facility] Comment on above: Result Comment: CUT- OFF POINTS HAVE BEEN ESTABLISHED BASED ON THE FOURTH UNIVERSAL DEFINITIONS OF MYOCARDIAL INFARCTION. THE UPPER REFERENCE LIMIT (URL) OF TROPONIN, DEFINED THE 99TH PERCENTILE OF cTnI DISTRIBUTION IN A REFERENCE POPULATION, HAS BEEN CONFIRMED THE DECISION THRESHOLD FOR OK DIAGNOSIS. Performed By: #### C MP, CMADM, BNP #### [facility] [address] [place], [place] [address] Dr. Briana Dillard HSTROP 5.6 pg/mL Normal 4.0-51.3 [facility] Comment on above: Result Comment: CUT- OFF POINTS HAVE BEEN ESTABLISHED BASED ON THE FOURTH UNIVERSAL DEFINITIONS OF MYOCARDIAL INFARCTION. THE UPPER REFERENCE LIMIT (URL) OF TROPONIN, DEFINED THE 99TH PERCENTILE OF cTnI DISTRIBUTION IN A REFERENCE POPULATION, HAS BEEN CONFIRMED THE DECISION THRESHOLD FOR OK DIAGNOSIS. Performed By: #### C MP, CMADM, BNP #### [facility] [address] [place], [place] [address] Dr. Briana Dillard XR CHEST 1 Von [...] by: NADJA KEMP Date: 2021-11-28 12:46 Normal [facility] Tobacco Screening.on 02-28-2 022 Adult depression screening assessment Yes [facility] y 250 DO Work Phone: Tobacco use status CPHS a) Yes [facility] y 250 DO Work Phone: Tobacco Screening. Yes -[facility]-[place] y 250 DO Work Phone: Tobacco Screening. 1-Several days [facility] HeartCristina y 250 DO Work Phone: Tobacco Screening. 0-Not at all [facility] HeartCristina y 250 DO Work Phone: Tobacco Screening. Not difficult at all [facility] HeartCristina y 250 DO Work Phone: Echocardiogramon 05-20-[address], [place] [address] TRANSTHORACIC ECHOCARDIOGRAM REPORT Patient Name: VIDHYA YUSUFKANWAL Reading Physician: [id number] Ruma Dawn MD Study Date: 05/20/2021 Referring [id number] SHASHI COTTRELL Physician: MRN/PID: [id number] PCP: Accession/Order#: [id number] [facility] Location: Date of : 1955 Fellow: Gender: F Nurse: Admit Date: Supervisor [employer]: Clarisse Sumner [facility] Height: 160.02 cm CC Report to: Weight: 89.36 kg Study Type: Echocardiogram BSA: 1.92 m2 Blood Pressure: 166 /94 mmHg Diagnosis/ICD: I51.7-Cardiomegaly; R06.00-Dyspnea, unspecified Indication: Obesity, Tobacco Abuse Procedure/CPT: Echo Complete w Full [id number] Study Detail: The following Echo studies were [...] 0.9 m/s (0.6-0.9m/s) PV Max P.1 mmHg [id number] Ruma Dawn MD Electronically signed on 05/24/2021 at 5:25:[address] [facility] Tobacco Screening.on 022 Fall risk assessment a) No falls within the last year [facility] y 250 DO Work Phone: Tobacco use status CPHS a) Yes [facility] HeartOYE!matamoras y 250 DO Work Phone: Fall risk assessment a) No falls within the last year [facility] DO Work Phone: Tobacco use status CPHS a) Yes [facility] y 250 DO Work Phone: Tobacco Screening. Yes [facility] y 250 DO Work Phone: Bld Gas Venon 12-02-2019 Allens Test N/A [facility] Comment on above: Result Comment: [facility] Department of Pulmonary Medicine [address] [place] [address] Performed By: #### 1 [id number] #### [facility] [address] [place] [address] Called By: KATHY OCHOA [facility] Comment on above: Performed By: #### 1 [id number] #### [facility] [address] [place] [address] Called To: DR. CORINNE COFFMAN [facility] Comment on above: Performed By: #### 1 [id number] #### [facility] [address] [place] [address] Drawn by PEDRO [facility] Comment on above: Performed By: #### 1 [id number] #### [facility] [address] [place] [address] Dt/Tm Notified 17:42:[address] [facility] Comment on above: Performed By: #### 1 [id number] #### [facility] [address] [place] [address] pCO2 Guillaume 36.1 mmHg Low 38.0-50.0 [facility] Comment on above: Performed By: #### 1 [id number] #### [facility] [address] [place] [id number] pH (BldV) 7.392 [pH] Normal 7.320-7.430 [facility] Comment on above: Performed By: #### 1 [id number] #### [facility] [address] [place] [address] Sample Site OTHER [facility] Comment on above: Performed By: #### 1 [id number] #### [facility] [address] [place] [address] Sample Type Venous [facility] Comment on above: Performed By: #### 1 [id number] #### [facility] [address] [place] [address] Physician Orderon 12-02-2019 Physician Order [id number]:127 Normal [facility] Vital Signs Date Time Vital Sign Value Performing Clinician Facility 03-22-2024 09:57-0500 Body height 160.02 cm Juan Antonio Carver [employer] Work Phone: [facility] 03-22-2024 09:57-0500 Body mass index (BMI) [Ratio] 34 kg/m2 Juan Antonio Carver [employer] Work Phone: [facility] 03-22-2024 09:57-0500 Body temperature 96.9 [degF] Juan Antonio Carver [employer] Work Phone: [facility] 03-22-2024 09:57-0500 Body weight 87.14 kg Juan Antonio Carver [employer] Work Phone: [facility] 03-22-2024 09:57-0500 Diastolic blood pressure 86 mm[Hg] Juan Antonio Carver [employer] Work Phone: [facility] 03-22-2024 09:57-0500 Heart rate 108 /min Juan Antonio Carver [employer]C Work Phone: [facility] 03-22-2024 09:57-0500 Respiratory rate 18 /min Juan Antonio Carver [employer]C Work Phone: [facility] 03-22-2024 09:57-0500 SaO2% (BldA) [Mass fraction] 92 % Juan Antonio Carver [employer]C Work Phone: [facility] 03-22-2024 09:57-0500 Systolic blood pressure 146 mm[Hg] Juan Antonio Carver [employer]C Work Phone: [facility] 08-05-2023 10:22-0400 Body temperature 97.2 [degF] MD Shaikh Mchugh Work Phone: [facility] 08-05-2023 10:22-0400 Body weight 89.81 kg MD Shaikh Mchugh Work Phone: [facility] 08-05-2023 10:22-0400 Diastolic blood pressure 75 mm[Hg] MD Shaikh Mchugh Work Phone: [facility] 08-05-2023 10:22-0400 Heart rate 71 /min MD Shaikh Mchugh Work Phone: [facility] 08-05-2023 10:22-0400 Respiratory rate 16 /min MD Shaikh Mchugh Work Phone: [facility] 08-05-2023 10:22-0400 SaO2% (BldA) [Mass fraction] 90 % MD Shaikh Mchugh Work Phone: [facility] 08-05-2023 10:22-0400 Systolic blood pressure 162 mm[Hg] MD Shaikh Mchugh Work Phone: [facility] 06-24-2023 10:07-0500 Body height 160.02 cm MD Shaikh Mchugh Work Phone: [facility] 06-24-2023 10:07-0500 Body mass index (BMI) [Ratio] 34.2 kg/m2 MD Shaikh Mchugh Work Phone: [facility] 06-24-2023 10:07-0500 Body temperature 97.2 [degF] MD Shaikh Mchugh Work Phone: [facility] 06-24-2023 10:07-0500 Body weight 87.54 kg MD Shaikh Mchugh Work Phone: [facility] 06-24-2023 10:07-0500 Diastolic blood pressure 96 mm[Hg] MD Shaikh Mchugh Work Phone: [facility] 06-24-2023 10:07-0500 Heart rate 78 /min MD Shaikh Mchugh Work Phone: [facility] 06-24-2023 10:07-0500 Respiratory rate 16 /min MD Shaikh Mchugh Work Phone: [facility] 06-24-2023 10:07-0500 SaO2% (BldA) [Mass fraction] 95 % MD Shaikh Mchugh Work Phone: [facility] 06-24-2023 10:07-0500 Systolic blood pressure 160 mm[Hg] MD Shaikh Mchugh Work Phone: [facility] 03-24-2023 13:06-0500 Body temperature 97.8 [degF] MD Shaikh Mchugh Work Phone: [facility] 03-24-2023 13:06-0500 Body weight 86.63 kg MD Shaikh Mchugh Work Phone: [facility] 03-24-2023 13:06-0500 Diastolic blood pressure 67 mm[Hg] MD Shaikh Mchugh Work Phone: [facility] 03-24-2023 13:06-0500 Heart rate 68 /min MD Shaikh Mchugh Work Phone: [facility] 03-24-2023 13:06-0500 Respiratory rate 16 /min MD Shaikh Mchugh Work Phone: [facility] 03-24-2023 13:06-0500 SaO2% (BldA) [Mass fraction] 98 % MD Shaikh Mchugh Work Phone: [facility] 11-21-2023 13:06-0500 Systolic blood pressure 130 mm[Hg] MD Shaikh Mchugh Work Phone: [facility] 03-24-2023 12:53-0500 Body height 160.02 cm MD Shaikh Mchugh Work Phone: [facility] 03-11-2023 09:20-0500 Body height 162.56 cm Alta Sharmaine Other [employer] Other 03-11-2023 09:20-0500 Body mass index (BMI) [Ratio] 32.78 kg/m2 Alta Sharmaine Other [employer] Other 03-11-2023 09:20-0500 Body temperature 96.3 [degF] Alta Sharmaine Other [employer] Other 03-11-2023 09:20-0500 Body weight 86.64 kg Alta Sharmaine Other [employer] Other 03-11-2023 09:20-0500 Diastolic blood pressure 77 mm[Hg] Alta Sharmaine Other [employer] Other 03-11-2023 09:20-0500 Respiratory rate 18 /min Alta Sharmaine Other [employer] Other 03-11-2023 09:20-0500 SaO2% (BldA) [Mass fraction] 95 % Alta Sharmaine Other [employer] Other 03-11-2023 09:20-0500 Systolic blood pressure 139 mm[Hg] Alta Sharmaine Other [employer] Other 12-08-2022 08:41-0400 Body height 160.02 cm Shaikh Yaimawwad Work Phone: [facility] 250 DO Work Phone: 12-08-2022 08:41-0400 Body mass index (BMI) [Ratio] 32.95 kg/m2 Dial Fawwad Work Phone: [facility] 250 DO Work Phone: 12-08-2022 08:41-0400 Body surface area Derived from formula 1.88 m2 Shaikh Yaimawwad Work Phone: [facility]-[place] 250 DO Work Phone: 12-08-2022 08:41-0400 Body weight 84.37 kg Shaikh Yaimawwad Work Phone: [facility] 250 DO Work Phone: 12-08-2022 08:41-0400 Diastolic blood pressure 60 mm[Hg] Dial Fawwad Work Phone: [facility] 250 DO Work Phone: 12-08-2022 08:41-0400 Heart rate 66 /min Shaikh Yaimawwad Work Phone: [facility] 250 DO Work Phone: 12-08-2022 08:41-0400 Systolic blood pressure 108 mm[Hg] Dial Fawwad Work Phone: [facility] 250 DO Work Phone: 07-01-2021 13:12-0500 Diastolic blood pressure 88 mm[Hg] Dial Fawwad Work Phone: [facility] 250 DO Work Phone: 07-01-2021 13:12-0500 Systolic blood pressure 138 mm[Hg] Dial Fawwad Work Phone: [facility] 250 DO Work Phone: 07-01-2021 09:20-0500 Diastolic blood pressure 100 mm[Hg] Shaikh Brightwad Work Phone: [facility] 250 DO Work Phone: 07-01-2021 09:20-0500 Systolic blood pressure 148 mm[Hg] Shaikh Brightwad Work Phone: [facility] 250 DO Work Phone: 07-01-2021 09:01-0500 Diastolic blood pressure 98 mm[Hg] Shaikh Brightwad Work Phone: [facility] 250 DO Work Phone: 07-01-2021 09:01-0500 Systolic blood pressure 168 mm[Hg] Shaikh Brightwad Work Phone: [facility] 250 DO Work Phone: 07-01-2021 08:51-0500 Body height 160.02 cm Shaikh Brightwad Work Phone: [facility] 250 DO Work Phone: 07-01-2021 08:51-0500 Body mass index (BMI) [Ratio] 33.83 kg/m2 Shaikh Brightwad Work Phone: [facility] 250 DO Work Phone: 07-01-2021 08:51-0500 Body surface area Derived from formula 1.9 m2 Shaikh Brightwad Work Phone: [facility] 250 DO Work Phone: 07-01-2021 08:51-0500 Body weight 86.64 kg Dial Fawwad Work Phone: [facility] 250 DO Work Phone: 07-01-2021 08:51-0500 Diastolic blood pressure 104 mm[Hg] Shaikh Louisd Work Phone: [facility] 250 DO Work Phone: 07-01-2021 08:51-0500 Heart rate 87 /min Shaikh Jeison Work Phone: [facility] 250 DO Work Phone: 07-01-2021 08:51-0500 Systolic blood pressure 169 mm[Hg] Shaikh Jeison Work Phone: [facility] 250 DO Work Phone: 07-01-2021 08:51-0500 6 1 Shaikh Jeison Work Phone: [facility] 250 DO Work Phone: Comment on above: PHQ-9 TS 05-24-2021 10:00-0500 Body height 162.56 cm Juan Gonzalez Other [employer] Other 05-24-2021 10:00-0500 Body mass index (BMI) [Ratio] 32.44 kg/m2 Juan Gonzalez Other [employer] Other 05-24-2021 10:00-0500 Body weight 85.73 kg Juan Gonzalez Other [employer] Other 05-20-2021 10:45-0500 60 1 Shaikh Brightwad Work Phone: [facility] [address] [place] Work Phone: Comment on above: [id number] 05-13-2021 11:59-0500 Diastolic blood pressure 104 mm[Hg] Dial Yaimawwad Work Phone: [facility] 250 DO Work Phone: 05-13-2021 11:59-0500 Systolic blood pressure 162 mm[Hg] Dial Yaimawwad Work Phone: [facility] 250 DO Work Phone: 05-13-2021 11:13-0500 Diastolic blood pressure 100 mm[Hg] Shaikh Yaimawwad Work Phone: [facility] 250 DO Work Phone: 05-13-2021 11:13-0500 Systolic blood pressure 170 mm[Hg] Dial Fawwad Work Phone: [facility] 250 DO Work Phone: 05-13-2021 11:12-0500 Body height 160.02 cm Shaikh Brightwad Work Phone: [facility] 250 DO Work Phone: 05-13-2021 11:12-0500 Body mass index (BMI) [Ratio] 34.9 kg/m2 Shaikh Yaimawwad Work Phone: [facility] 250 DO Work Phone: 05-13-2021 11:12-0500 Body surface area Derived from formula 1.92 m2 Shaikh Yaimawwad Work Phone: [facility] 250 DO Work Phone: 05-13-2021 11:12-0500 Body weight 89.36 kg Dial Yaimawwad Work Phone: [facility] 250 DO Work Phone: 05-13-2021 11:12-0500 Diastolic blood pressure 102 mm[Hg] Shaikh Brightwad Work Phone: [facility] 250 DO Work Phone: 05-13-2021 11:12-0500 Heart rate 88 /min Shaikh Brightwad Work Phone: [facility] 250 DO Work Phone: 05-13-2021 11:12-0500 Systolic blood pressure 172 mm[Hg] Shaikh Brightwad Work Phone: [facility] 250 DO Work Phone: 05-13-2021 11:07-0500 Body height 160.02 cm Shaikh Louisd Work Phone: [facility] 250 DO Work Phone: 05-13-2021 11:07-0500 Body mass index (BMI) [Ratio] 34.9 kg/m2 Shaikh Brightwad Work Phone: [facility] 250 DO Work Phone: 05-13-2021 11:07-0500 Body surface area Derived from formula 1.92 m2 Shaikh Brightwad Work Phone: [facility] 250 DO Work Phone: 05-13-2021 11:07-0500 Body weight 89.36 kg Shaikh Brightwad Work Phone: [facility] 250 DO Work Phone: 05-13-2021 11:07-0500 Heart rate 88 /min Shaikh Brightwad Work Phone: [facility] 250 DO Work Phone: 04-09-2021 11:40-0500 Body height 162.56 cm Juan Gonzalez Other [employer] Other 04-09-2021 11:40-0500 Body mass index (BMI) [Ratio] 32.44 kg/m2 Juan Gonzalez Other [employer] Other 04-09-2021 11:40-0500 Body weight 85.73 kg Juan Gonzalez Other [employer] Other 04-09-2021 11:40-0500 Diastolic blood pressure 72 mm[Hg] Juan Gonzalez Other [employer] Other 04-09-2021 11:40-0500 Systolic blood pressure 124 mm[Hg] Juan Gonzalez Other [employer] Other Encounters Encounter Date Encounter Type Care Provider Facility Start: 03-22-2024 End: 03-22-2024 ambulatory Juan Antonio Carver [employer] Work Phone: [facility] Work Phone: Start: 03-22-2024 End: 03-22-2024 Patient encounter procedure Juan Antonio Carver [employer]-C Work Phone: [facility] [place] Work Phone: Start: 03-14-2024 End: 03-14-2024 Patient encounter procedure Juan Antonio Carver [employer]-C Work Phone: [facility] [place] Work Phone: Start: 03-14-2024 End: 03-14-2024 ambulatory Alta Sharmaine Facility:[facility] Start: 02-15-2024 End: 02-16-2024 Refill Juan Antonio Carver [employer] AGENT Work Phone: [facility] Comment on above: Diabetic polyneuropa thy associated with type 2 diabetes mellitus ([facility]) Start: 01-18-2024 End: 01-18-2024 Refill Juan Antonio Carver [employer]ION AGENT Work Phone: [facility] Comment on above: Moderate episode of recurrent major depressive disorder (HCC) (CMS/HCC) Start: 01-06-2024 End: 01-06-2024 ambulatory NADJA Bernice HERNANDEZ Not Available Start: 12-14-2023 End: 12-14-2023 ambulatory JUAN ANTONIO CARVER Not Available Start: 10-05-2023 End: 10-05-2023 ambulatory Radha Dunaway MD Facility:[facility] Start: 09-21-2023 End: 09-21-2023 ambulatory Radha Dunaway MD Facility:[facility] Start: 09-14-2023 End: 09-14-2023 ambulatory SHAIKH JEISON Not Available Start: 09-12-2023 End: 09-12-2023 Patient encounter procedure MD Shaikh Mchugh Work Phone: [facility] [place] Work Phone: Start: 09-12-2023 End: 09-12-2023 ambulatory MD Shaikh Mchugh Work Phone: [facility] Work Phone: Start: 08-05-2023 End: 08-05-2023 Patient encounter procedure MD Shaikh Mchugh Work Phone: [facility] Work Phone: Start: 08-05-2023 End: 08-05-2023 ambulatory MD Shaikh Mchugh Work Phone: [facility] Work Phone: Start: 08-05-2023 Registered Recurring MD Shaikh Mchugh Work Phone: [facility] Work Phone: Start: 07-13-2023 End: 07-13-2023 ambulatory SHAIKH JEISON Not Available Start: 07-10-2023 End: 07-10-2023 ambulatory EZRA VILLA V Not Available Start: 07-03-2023 End: 07-03-2023 ambulatory EZRA VILLA V Not Available Start: 06-24-2023 End: 06-24-2023 ambulatory MD Shaikh Mchugh Work Phone: [facility] Work Phone: Start: 06-24-2023 End: 06-24-2023 Patient encounter procedure MD Shaikh Mchugh Work Phone: [facility] Ambulatory Work Phone: Start: 06-24-2023 Registered Recurring MD Shaikh Mchugh Work Phone: [facility] [place] [facility] Work Phone: Start: 06-01-2023 End: 06-01-2023 ambulatory Radha Dunaway MD Facility: [facility] Start: 05-11-2023 End: 05-11-2023 ambulatory Radha Dunaway MD Facility: [facility] Start: 04-13-2023 Patient encounter procedure Juan Antonio Carver NP Work Phone: [facility] Start: 04-13-2023 Telephone encounter Neena Hi [facility] Start: 04-13-2023 End: 04-13-2023 ambulatory SHAIKH JEISON [facility] Other Start: 04-06-2023 End: 04-06-2023 ambulatory Radha Dunaway MD Facility: [facility] Start: 03-24-2023 End: 03-24-2023 ambulatory MD Shaikh Mchugh Work Phone: [facility] Work Phone: Start: 03-24-2023 End: 03-24-2023 Registered Recurring MD Shaikh Mchugh Work Phone: [facility] Work Phone: Start: 03-11-2023 End: 03-11-2023 ambulatory Alta Sharmaine Other [facility] Other Start: 03-11-2023 Office outpatient vi sit 25 minutes Alta Sharmaine [facility] [place] Start: 03-04-2023 End: 03-04-2023 ambulatory MD Shaikh Mchugh Work Phone: [facility] Work Phone: Start: 03-04-2023 End: 03-04-2023 Patient encounter procedure MD Shaikh Mchugh Work Phone: [facility] [place] Work Phone: Start: 12-08-2022 Office outpatient vi sit 15 minutes Shaikh Jeison Work Phone: [facility] 250 DO Work Phone: Start: 12-08-2022 Patient encounter procedure Shaikh Jeison Work Phone: [facility] 250 DO Work Phone: Start: 12-08-[address] Shashi Cottrell II Facility: Start: 11-10-2022 End: 11-10-2022 ambulatory Radha Dunaway MD Facility:[facility] Start: 10-16-2022 ambulatory SHAIKH Gurjit MCHUGH Facilit y:[facility] Start: 07-17-2022 End: 07-18-2022 ambulatory SHAIKH Gurijt MCHUGH Facility:[facility] Start: 06-29-2022 Rx Renewal Shaikh Jeison Work Phone: [facility] 250 DO Work Phone: Start: 06-28-2022 End: [...] Start: 07-01-2021 AUDIT Dial Fawwad Work Phone: [facility] 250 DO Work Phone: Start: 05-28-2021 FUV, Provider: Shashi Cottrell, Status: Pen, Time: 10:50 AM Dial Fawwad Work Phone: [facility] 250 DO Work Phone: Start: 05-26-2021 Chart Update Dial Fawwad Work Phone: [facility] 250 DO Work Phone: Start: 05-24-2021 End: 05-24-2021 ambulatory Juan Gonzalez Other [facility] Other Start: 05-24-2021 Office outpatient vi sit 15 minutes Juan Gonzalez [facility] Start: 05-20-2021 Patient encounter procedure Dial Fawwad Work Phone: [facility] [address] [place] Work Phone: Start: 05-13-2021 Office consultation new/estab patient 60 min Shaikh Jeison Work Phone: [facility] 250 DO Work Phone: Start: 04-09-2021 End: 04-09-2021 ambulatory Juan Gonzalez Other [facility] Other Start: 04-09-2021 Office outpatient ne w 45 minutes Juan Gonzalez [facility] Procedures Date Procedure Procedure Detail Performing Clinician Start: 07-03-2023 End: 07-03-2023 Screening mammography of bilateral breasts MD Shaikh Mchugh Work Phone: Start: 03-04-2023 Urine culture MD Shaikh Mchugh Work Phone: Start: 05-20-2021 Echocardiography Shaikh Jeison Work Phone: Cardiac catheterization Wayne Mchugh Work Phone: Cholecystectomy Shaikh Louis johnson Work Phone: Dilation and curettage Shaik gurjit Mchugh Work Phone: Total colonoscopy Shaikh Bright [place] Work Phone: Plan of Treatment Date Care Activity Detail Author Start: 05-19-2026 Screening for malign ant neoplasm of colon [facility] Start: 05-08-2025 Glaucoma screening Diabetes: R etinopathy Screening [facility] Start: 09-11-2024 Urine screening for protein Diabetes: Urine Protein Screening [facility] Start: 07-02-2024 Screening for malign ant neoplasm of breast Mammogram [facility] Start: 05-18-2024 End: 05-18-2024 Patient encounter procedure 05/18/2024 1:00 PM EST Procedure Visit [facility] [address] [place] [address] Nadja Fulton, DPM [address] [place] [address] [facility] Start: 04-13-2024 Medicare Annual Wellness (AWV) Medicare Annual Wellness (AWV) [facility] Start: 03-15-2024 End: 03-15-2024 Patient encounter procedure 03/15/2024 9:00 AM EST Office Visit [facility] [address] [place] [address] Juan Antonio Carver, SITE PROMOTION AGENT [address] [place] [address] [facility] Start: 01-03-2024 Influenza vaccination Influenza Vacc ine (#1) [facility] Start: 10-16-2023 Hemoglobin A1c measurement Diabetes: Hemoglobin A1C [facility] Start: 06-24-2023 Patient referral [facility] Work Phone: Start: 03-04-2023 Bacteria identified in Urine by Culture [facility] Start: 12-12-2022 FUV, Provider: Shashi Cottrell, Status: Pen, Time: 3:20 PM FUV, Provider: Shashi Cottrell, Status: Pen, Time: 3:[address] [facility] 250 DO Work Phone: Start: 01-10-2022 FUV, Provider: Shashi Cottrell, Status: Pen, Time: 2:00 PM FUV, Provider: Shashi Cottrell, Status: Pen, Time: 2:[address] [facility] 250 DO Work Phone: Start: 07-01-2021 FUV, Provider: Shashi Cottrell, Status: Pen, Time: 8:40 AM FUV, Provider: Shashi Cottrell, Status: Pen, Time: 8:[address] [facility] [address] [place] Work Phone: Start: 05-28-2021 FUV, Provider: Shashi Cottrell, Status: Pen, Time: 10:50 AM FUV, Provider: Shashi Cottrell, Status: Pen, Time: 10:[address] [facility] 250 DO Work Phone: Start: 05-20-2021 ECHO, Provider: JACEY LUIS CARLOSI ULTRASOUND 01,[id number], Status: Pen, Time: 10:45 AM ECHO, [facility] ,[id number], Status: Pen, Time: 10:[address] [facility] 250 DO Work Phone: Start: 1955 Screening for malign ant neoplasm of colon [facility] MG Breast - bilatera l Screening [facility] Patient referral [facility] Work Phone: Renal function 2000 panel - Serum or Plasma [facility] Immunizations Immunization Date Immunization Notes Care Provider Yaima saul 10-20-2020 pneumococcal polysaccharide vaccine, 23 valent Shaikh Jeison Work Phone: [place] [address] DO Work Phone: 08-23-2020 COVID-19 Vaccine Moderna - Documentation Purposes Only Juan Gonzalez Other [facility] 05-04-2020 pneumococcal conjuga te vaccine, 13 valent Shaikh Jeison Work Phone: [facility] 250 DO Work Phone: Comment on above: Series: 02-03-2020 Influenza, injectabl e, Madin Kyra Canine Kidney, preservative free, quadrivalent Dial Jeison Work Phone: [facility] 250 DO Work Phone: 02-03-2020 influenza virus vaccine, unspecified formulation Juan Antonio Carver NP Work Phone: [facility] 02-09-2019 Vaxneuvance 0.5 ML Intramuscular Suspension Prefilled Syringe Shaikh Jeison Work Phone: [facility] 250 DO Work Phone: 04-05-2017 influenza, injectabl e, quadrivalent, preservative free Shaikh Jeison Work Phone: [facility] 250 DO Work Phone: Payers Date Payer Category Payer Self-pay [id number] 2022 Medicare [employer] MEDICARE ADVANTAGE [facility] MEDICARE [id number] 2022-Present [address] [place] [id number] 2022 Medicare (Managed Care) [employer] EDICARE ADVANTAGE [id number] 2022 Medicaid [id number] 2022 Private Health Insurance 1959 Medicare [id number] 2.16.840.1.664337.19 1955 Unknown [id number] 2.16.840.1.177756.3.579.2. 593 1955 Unknown [id number] 2.16.840.1.369926.3.579.2. 593 1955 Unknown [id number] 2.16.840.1.552366.3.579.2. 593 1955 Unknown [id number] 2.16.840.1.524931.3.579.2. 593 1955 Unknown [id number] 2.16.840.1.596795.3.579.2. 593 1955 Unknown [id number] 2.16.840.1.292436.3.579.2. 593 1955 Unknown [id number] 2.16.840.1.497543.3.579.2. 593 1955 Unknown [id number] 2.16.840.1.164928.3.579.2. 593 1955 Unknown [id number] 2.16.840.1.662377.3.579.2. 593 1955 Unknown [id number] 2.16.840.1.942382.3.579.2. 593 1955 Unknown [id number] 2.16.840.1.515040.3.579.2. 593 1955 Unknown [id number] 2.16.840.1.411937.3.579.2. 593 1955 Unknown [id number] 2.16.840.1.944434.3.579.2. 356 1955 Unknown [id number] 2.16.840.1.804979.3.579.2. 356 1955 Unknown [id number] 2.16.840.1.102371.3.579.2. 196 1955 Unknown [id number] 2.16.840.1.095986.3.579.2. 196 1955 Unknown [id number] 2.16.840.1.266868.3.579.2. 196 1955 Unknown [id number] 2.16.840.1.275143.3.579.2. 196 1955 Unknown [id number] 2.16.840.1.069856.3.579.2. 196 1955 Unknown [id number] 2.16.840.1.332887.3.579.2. 196 1955 Unknown [id number] 2.16.840.1.802375.3.579.2. 9 1955 Unknown [id number] 2.16.840.1.567403.3.579.2. 1258 1955 Unknown [id number] 2.16.840.1.927020.3.579.2. 1258 1955 Unknown [id number] 2.16.840.1.139053.3.579.2. 1258 1955 Unknown [id number] 2.16.840.1.790177.3.579.2. 1258 1955 Unknown [id number] 2.16.840.1.973444.3.579.2. 1258 1955 Unknown [id number] 2.16.840.1.457420.3.579.2. 1259 Medicare [id number] 2.16.840.1.660807.19 Unknown Unknown [id number] 2.16.840.1.432645.3.579.2. 531 Unknown [id number] 2.16.840.1.079923.3.579.2. 531 Unknown [id number] 2.16.840.1.475814.3.579.2. 531 Social History Date Type Detail Facility Start: 04-09-2023 End: 12-14-2023 Daily caffeine consumption Daily caffeine consumption [facility] Comment on above: 2-3 cups of coffee d aily.; 1/2 pack daily.; Start: 04-09-2023 End: 12-14-2023 Sex Assigned At [facility] Start: 01-24-2021 End: 03-22-2024 Tobacco smoking status [facility] Smoker (finding) [facility] Start: 1955 Sex Assigned At Female F [facility] Start: 12-14-2023 Tobacco smoking stat us NHIS Smokes tobacco daily [facility] History of tobacco use Cigarette Smoker [facility] History of tobacco use Passive smoker [facility] Start: 12-14-2023 Tobacco use and exposure Smokeless tobacco non-user [facility] Start: 01-06-2024 Alcoholic beverage intake Lifetime non-drinker (finding) [facility] Within the last year , have you been afraid of your partner or ex-partner? No [facility] Are you now , , , , never or living with a partner? [facility] How often to you hav e a drink containing alcohol? Never [facility] How many standard drinks containing alcohol do you have on a typical day? Patient does not drink [facility] Do you feel stress - tense, restless, nervous, or anxious, or unable to sleep at night because your mind is troubled all the time - these days [OSQ] Only a little [facility] (I/We) worried wheth er (my/our) food would run out before (I/we) got money to buy more. Never true [facility] Start: 1955 Sex assigned at Not on file [facility] Start: 03-15-2024 End: 03-22-2024 Sex Female (finding) [facility] Medical Equipment Procedure Code Equipment Code Equipment Origin al Text Equipment Identifier Dates 1 strip by In Vi tro route 5 (five) times a day [id number] Start: 11-12-2023 End: 11-11-2024 Functional Status Date Assessment Result Facility 07-01-2021 PHQ-9 [id number] Mild (5-9) [facility] 250 DO Work Phone: Clinical Notes 12-03-2019 [...] I have prescribed oral magnesium once daily. [facility] Other 03-16-2023 NotePAIN MANAGEMENT CONSULTATION CONSULTATION DATE: [...] in three months' time unless otherwise indicated.[id number] NoteCONSULTATION CONSULTATION DATE: 04/10/2022 HISTORY OF PRESENT [...] weeks ago, and she completed those in [place]. She is continuing her home exercises as [...] thereafter. Patient does agree with this plan.[id number] NoteCONSULTATION CONSULTATION DATE: 01/09/2022 HISTORY OF PRESENT [...] weeks. Patient prefers to do this in [place]. She will be followed up in the office in three months' time and was encouraged to take a multivitamin daily. Patient agrees with this plan of care. [id number] NoteCONSULTATION CONSULTATION DATE: 10/17/2021 HISTORY OF PRESENT [...] time unless otherwise indicated. [facility] Signed and Approved by: EVA ROSEN . 10/30/2021 16:23:00[facility]06-16-2022 NoteCONSULTATION PROCEDURE DATE:10/17/2021 PREOPERATIVE DIAGNOSIS: Bilateral lumbar [...] up in the office. [facility] Signed and Approved by: EVA ROSEN . 10/30/2021 16:23:00[facility]01-21-2022 Evaluation note* Encounter Date Diagnosis Assessment Notes [...] at this point no intervention is needed. [facility] Other 12-07-2021 Evaluation note* Encounter Date Diagnosis [...] - M50.123) Apr, Cardiomegaly (ICD-10 - I51.7) [facility] Other 01-15-2021 History of Present illness Narrative* [...] will follow-up after testing is completed [facility] Work Phone: 1(369) 902-564901-10-2021 History of Present illness Narrative* Patient is [...] will follow-up after testing is completed [facility] [employer] DO Work Phone: 1(599) 696-697108-01-2020 History general Narrative - Reported* Type Description Date Medical History TYPE II DIABETES Medical History HYPERTENSION Medical History ENLARGE HEART Surgical History CHOLECYSTECTOMY Hospitalization History PNEUMONIA 12/2019 [facility] Other chief complaint Narrative - ReportedLINCRISTINA IBARRA is being seen for a consultation for cardiomegaly.[facility] ETHERA 250 DO Work Phone: Chief complaint Narrative - ReportedLINCRISTINA IBARRA is being seen for a consultation for cardiomegaly.[facility] Work Phone: Consult note Author Yakelin Staley [facility] March 25, 2023 10:10am Note Date/Time March 24, 2023 1:49pm [facility] [place] [id number] Hem/Onc Consult Note - OP Signed Patient: Vidhya Ibarra MR#: [id number] : 1955 Acct:[id number] Age/Sex: 67 / F Type: REG RCR [...] any worse than it does when touched. [facility] - Medical History Medical [...] for coordination of care (as documented) and [id number] counseling of patient and/or family. Dictated By: Yakelin Staley APRN DD/ 1349 Signed By: <Electronically signed by JOSE Staley> 03/25/23 1010 [facility] Work Phone: Evaluation noteNo assessment information available [facility] Work Phone: evalusfxud noteNo InformationNort [place] Other evaluaucsj note* Diagnosis Onset Date Resolution Status Leukocytosis acute Breast nodule acute Leukocytosis acute Recurrent boils acute Yeast infection acute [facility] Work Phone: evaluation note* Diagnosis Onset Date Resolution Status Breast nodule acute Leukocytosis acute Recurrent boils acute Yeast infection acute Leukocytosis acute Breast nodule acute Leukocytosis acute Recurrent boils acute Yeast infection acute [facility] Work Phone: evaluncjyy note* Diagnosis Tobacco dependency- Primary Tobacco use disorder Type 2 diabetes mellitus with stage 3a chronic kidney disease, with long-term current use of insulin (HCC) (CMS/HCC) Mixed hyperlipidemia (CMS/HCC) Mixed hyperlipidemia Pulmonary emphysema, unspecified emphysema type (CMS/HCC) Primary hypertension (CMS/HCC) Unspecified essential hypertension Encounter for screening for malignant neoplasm of colon Encounter for screening mammogram for malignant neoplasm of breast Encounter for Medicare annual wellness exam Type 2 diabetes mellitus with stage 3a chronic kidney disease, with long-term current use of insulin (HCC) (CMS/HCC)- Primary Hyperlipidemia, unspecified hyperlipidemia type (CMS/HCC) Pulmonary emphysema, unspecified emphysema type (CMS/HCC) Primary hypertension (CMS/HCC) Unspecified essential hypertension Mixed hyperlipidemia (CMS/HCC) Mixed hyperlipidemia Moderate episode of recurrent major depressive disorder (CMS/HCC) Psychophysiological insomnia Persistent disorder of initiating or maintaining sleep Type 2 diabetes mellitus with stage 3a chronic kidney disease, with long-term current use of insulin (HCC) (CMS/HCC)- Primary Primary hypertension (CMS/HCC) Unspecified essential hypertension Type 2 diabetes mellitus with stage 3a chronic kidney disease, with long-term current use of insulin (HCC) (CMS/HCC)- Primary Mixed hyperlipidemia (CMS/HCC) Mixed hyperlipidemia Primary hypertension (CMS/HCC) Unspecified essential hypertension Chronic diastolic congestive heart failure (CMS/HCC) Diabetic polyneuropathy associated with type 2 diabetes mellitus (CMS/HCC) Lumbar stenosis with neurogenic claudication Pulmonary emphysema, unspecified emphysema type (CMS/HCC) Diabetic polyneuropathy associated with type 2 diabetes mellitus (CMS/HCC) documented [facility] this encounter [facility] Diagnosis Onset Date Resolution Status Admit Date CKD (chronic kidney disease) stage 3, GFR 30-59 ml/min acute March 11:14am Hepatic cyst acute March 11:14am Hypertensive chronic kidney disease with stage 1 through stage 4 chronic ki acute March 22, 024 11:14am Hyperuricemia acute March 222023 11:14am Hypomagnesemia acute March 042023 11:14am Leukocytosis acute March 11:14am Secondary hyperparathyroidism acute March 22, 2024 11:14am Type 2 diabetes mellitus wit h diabetic chronic kidney disease acute March 22, 2024 11:14am [facility] Work Phone: Evaluation note* Diagnosis Moderate episode of recurrent major depressive disorder (CMS/HCC) documented in this encounter [facility] HealthcareHistory of Present illness Narrative* Patient returns in follow- up of problems as noted. In the interim [...] loss and more importantly smoking cessation. [facility] [place] 250 DO Work Phone: Hospital Discharge instructionsAmbulatory Orders* Referral to General Surgery Time Frame: 06/24/23, Location: None Selected [facility] Work Phone: Progress note Author Rebeca Ashraf [facility] June 24, 2023 10:45am Note Date/Time June 24, 2023 10:07am [facility] [place] [address] Cancer Center Note Signed Patient: Vidhya Ibarra MR#: [id number] : 1955 Acct:[id number] Age/Sex: 67 / F Type: REG AMB [...] % (Auto) 74.3 Lymph % (Auto) 18.0 Becker % (Auto) 5.2 Eos % (Auto) 1.7 Baso % (Auto) 0.8 Nucleat RBC Rel Count 0.1 Neut # (Auto) 10.6 H Lymph # (Auto) 2.6 Becker # (Auto) 0.7 Eos # (Auto) 0.2 [...] signed by Rebeca Ashraf MD> 06/24/23 1045 [facility] Work Phone: Summary Purpose Family History Unknown Family Member Name Dates Details FH: [...] Not Specified Diabetes mellitus Unknown Hypertension Unknown Relationship Condition Age at Onset Recorded Date/T norris father Mesothelioma Unknown mother Hypertension Unknown Heart disease Unknown brother Family history of mental disorder Unknown Unknown father Malignant neoplasm Unknown mother Diabetes mellitus Unknown Hypertension Unknown Advance Directives Advance Directive Response Recorded Date/ Time Advance Directives No November 23 12:44pm Advance Directive Response Recorded Date/ Time Advance Directives No November 23 11:44am Reason for Referral Reason * 04/23 Evaluate and Treat Diagnosis 1 Cardiomegaly (I51.7) Referral Organization [facility] urosurgery Referring Provider First Name Juan Referring Provider Last Name Carlos Referring Provider Specialty Neurologica l Surgery Referred Organization [facility] enter Referred Provider Jason Johnson Referred Address [address] [facility] [address] [place] [address] Referred Provider Specialty Cardiac Surg nicholas Referral Priority Routine General Notes Neena Estevez 021 08:49:37 AM >Received today and waiting for office notes to be lockedNeena Estevez 04/16/2021 03:27:00 PM >[facility] office request us to fax the referral to them and they will review and call patient to schedule their appointment. Referral was fax Reason Evaluate and Treat Diagnosis 1 Cervical disc disord er at C5-C6 level with radiculopathy (M50.122) Referral Organization [facility] urosurgery Referring Provider First [...] Leukocytosis Recurrent boils Yeast infection Chief Complaint Admit Date N25.81 E83.42 K76.89 E79.0 E11.22 I12.9 March 14, 2024 8:39am Chief Complaint Admit Date N25.81 E83.42 K76.89 E79.0 E11.22 I12.9 March 14, 2024 8:39am RENAL 6 MONTH F/U March 22, 2024 11:14am Reason for Visit Admit Date CKD (chronic kidney disease) stage 3, GF R 30-59 ml/min March 22, 2024 11:14am Hepatic cyst March 22, 2024 11:14am Hypertensive chronic kidney disease with stage 1 through stage 4 chronic ki March 22, 2024 11:14am Hyperuricemia March 22, 2024 11:14am Hypomagnesemia March 22, 2024 11:14am Leukocytosis March 22, 2024 11:14am Secondary hyperparathyroidism March 042023 11:14am Type 2 diabetes mellitus wit h diabetic chronic kidney disease March 22, 2024 11:14am Additional Source Comments INFORMATION SOURCE (unrecogn ized section and content) DATE CREATED AUTHOR 12/03/[address] Fco Ras[address] [facility] ical Center DATE CREATED AUTHOR AUTHOR'S ORGANIZ ATION 05/26/2021 [facility] DATE CREATED AUTHOR AUTHOR'S ORGANIZ ATION 10/10/2022 [facility] DATE CREATED AUTHOR AUTHOR'S ORGANIZ ATION 12/08/2022 [facility] ical Center DATE CREATED AUTHOR AUTHOR'S ORGANIZ ATION 12/09/2022 [employer] DATE CREATED AUTHOR AUTHOR'S ORGANIZ ATION 10/13/2023 [facility] DATE CREATED AUTHOR AUTHOR'S ORGANIZ ATION 01/08/2024 [facility] DATE CREATED AUTHOR AUTHOR'S ORGANIZ ATION 03/15/2024 [facility] REASON FOR VISIT (unrecogniz ed section and content) Reason Onset Date Comments Med Refill 02/15/2024 Reason Onset Date Comments Med Refill 01/18/2024 Care Teams (unrecognized sec tion and content) [...] Active Yakelin Staley APRN Attending Provider Acti ve Alta Schmid MD Referring Provider Active Team Status: Inactive Member Role Status Dates Shaikh Jeison MD Primary Care Provider Active Start: September 12, 2023 End: September 12, 2023 Alta Schmid MD Attending Provider Active Start : September 12, 2023 End: September 12, 2023 Able Bodied Watchman Relationship Specialty Start Date End Date Shaikh Mchugh MD [address] [place] [address] PCP - General Internal Medicine 07/03/23 Team Status: Active Member Role Status Dates Juan Antonio Carver NP-C Primary Care Provider Ac tive Team Status: Inactive Member Role Status Dates Juan Antonio Carver NP-C Primary Care Provider Ac tive Start: March 14, 2024 End: March 14, 2024 Alta Schmid MD Attending Provider Active Start : March 14, 2024 End: March 14, 2024 Team Status: Inactive Member Role Status Dates Alta Schmid MD Attending Provider Active Start : March 22, 2024 End: March 22, 2024 Juan Antonio Carver NP-C Primary Care Provider Ac tive Start: March 22, 2024 End: March 22, 2024 Able Bodied Watchman Relationship Specialty Start Date End Date Shaikh Mchugh MD [address] [place] [address] PCP - General Internal Medicine 07/03/23 Goals (unrecognized section and content) Goals may [...] BE BASED ON THE PRIMARY CLINICAL RECORDS. [facility] [employer] [facility]. provides no warranty or guarantee of the accuracy or completeness of information in this document.
--- NOTE | 2024-04-13 14:15 | P.CN_ITS ---
Consult Note: HPI Data of Consult Patient: known to practice within the last 3 years Consult date: 04/16/23 Requesting Physician: Renate Flores NP Primary Care Provider: Non-Staff Physician, MD Consult Narrative Reason for consult: f/u Narrative: Vidhya Pillai a pleasant 67 year old female presents for evaluation and management of chronic back pain. Pain today 7/10, pain increases to 8/10 stabbing with standing walking ADLS and activity. Reports mild benefit from gabapentin 600mg TID. failed HEP > 6 weeks. Patient continues to require percocet 5-325mg BID PRN for pain to improve functional ability, denies side effefcts. Previously underwent left L4-5 L5-S1 TFESI and left nerve block of SIJ with 40% improvement in pain and functional ability per patient. We have been working towards a spinal cord stimulator trial for lumbar stenosis with NC as patient is not interested in neurosurgery. cc:: CC: Renate Flores NP Review of Systems ROS Status of ROS 10 or more systems reviewed and unremark able except as noted in history and below Musculoskeletal Reports: back pain and extremity pain PFSH PFSH Medical History Osteoarthritis ?M19.90 - Unspecified osteoarthritis, unspecified site (ICD-10) Low back pain ?M54.50 - Low back pain, unspecified (ICD-10) Numbness and tingling ?R20.0 - Anesthesia of skin (ICD-10) ?R20.2 - Paresthesia of skin (ICD-10) Diabetes ?E11.9 - Type 2 diabetes mellitus without complications (ICD-10) Smoker ?F17.200 - Nicotine dependence, unspecified, uncomplicated (ICD-10) COPD (chronic obstructive pulmonary disease) ?J44.9 - Chronic obstructive pulmonary disease, unspecified (ICD-10) Angina at rest ?I20.8 - Other forms of angina pectoris (ICD-10) Hypertension ?I10 - Essential (primary) hypertension (ICD-10) Surgical History History of cholecystectomy ?Z90.49 - Acquired absence of other specified parts of digestive tract (ICD- 10) S/P dilatation and curettage ?Z98.890 - Other specified postprocedural states (ICD-10) H/O cardiac catheterization ?Z98.890 - Other specified postprocedural states (ICD-10) Meds Home Medications and Allergies Home Medications ?Medication ?Instructions ?Recorded ?Confirmed ?Type gabapentin 600 mg tablet 600 mg PO TID 10/16/22 10/05/23 History glipizide 10 mg tablet 10 mg PO BID 10/16/22 10/05/23 History insulin NPH isoph U-100 human 100 20 unit subcut BID 10/16/22 10/05/23 History unit/mL subcutaneous suspension (Novolin N NPH U-100 Insulin isophane) metoprolol tartrate 50 mg tablet 50 mg PO BID 10/16/22 10/05/23 History paroxetine HCl 10 mg tablet 10 mg PO DAILY 10/16/22 10/05/23 History pramipexole 0.25 mg tablet 0.25 mg PO DAILY 10/16/22 10/05/23 History (Mirapex) trazodone 150 mg tablet 150 mg PO BEDTIME 10/16/22 10/05/23 History atorvastatin 40 mg tablet (Lipitor) 40 mg PO DAILY 04/16/23 10/05/23 History bumetanide 0.5 mg tablet 0.5 mg PO DAILY 04/16/23 10/05/23 History magnesium oxide 400 mg (241.3 mg mg 06/01/23 History magnesium) tablet allopurinol 200 mg tablet 200 mg PO DAILY 09/21/23 10/05/23 History oxycodone-acetaminophen 5 mg-325 1 tab PO BID PRN pain #60 tabs 01/05/24 Rx mg tablet (Percocet) oxycodone-acetaminophen 5 mg-325 1 tab PO BID PRN pain #60 tabs 01/29/24 Rx mg tablet (Percocet) naloxone 4 mg/actuation nasal 4 mg intranasal Q2M #2 ea 03/10/24 Rx spray (Narcan) oxycodone-acetaminophen 5 mg-325 1 tab PO BID PRN pain #60 tabs 03/10/24 Rx mg tablet (Percocet) oxycodone-acetaminophen 5 mg-325 1 tab PO BID PRN pain #60 tabs 03/16/24 Rx mg tablet (Percocet) Allergies Allergy/AdvReac Type Severity Reaction Status Date / Time prednisone Allergy Intermediate Rash Verified 10/05/23 08:00 Exam Constitutional Documenting provider has reviewed patient's vital signs: yes Common normals: no apparent distress, oriented x3, healthy appearing, alert and well nourished General appearance: cooperative Orientation/consciousness: Yes awake, Yes oriented to person, Yes oriented to place and Yes oriented to time HENMT Common normals: normocephalic, hearing grossly normal bilaterally and moist oral mucous membranes Head and scalp: normocephalic Eye Common normals: PERRL Pupil: PERRL Neck & C-Spine Common normals: full ROM General: normal visual inspection Chest Common normals: inspection of chest normal Respiratory Common normals: normal respiratory effort, no retractions and no use of accessory muscles Effort & inspection: able to speak in complete sentences and symmetric chest movement Back & Pelvis Lumbar spine/lower back: ROM limited, pain with ROM and straight leg raise positive right Sacroiliac joints: SI joints normal Other: bilateral facet loading mild on left decreased sensation to left L4,5,S1 pattern strength 4/5 in BLE increased pain with standing and walking, improved with sitting and forward flexion Extremity Common normals: normal to inspection and full ROM Neuro Common normals: oriented x3, CN's II-XII intact bilaterally, moves all extremities, no focal motor deficits, no sensory deficits noted and deep tendon reflexes 2+ bilaterally Sensorium/orientation: alert Motor exam: no movement abnormalities noted Psych Common normals: mental status grossly normal, thought process normal, cooperative, affect normal, speech normal and activity/motor behavior normal Speech: normal speech Thought process: normal thought process Results Additional Findings Additional findings: If on a controlled substance or opioids, I have checked an [place] report on this patient and there are no aberrancies noted in the prescribing history.??If on a controlled substance or opioid a drug screen was completed and reviewed within the last year, and if there has not been a drug screen completed we ordered one today to monitor higher risk, state monitored pain medication use. As part of providing excellent, safe, comprehensive care, the following was completed at our patient's visit: 1. A medication reconciliation and review to ensure accurate knowledge of current/active medications, including asking our patients to inform us about any [id number] medications or herbal remedies/nutritional supplements/alternative remedies. 2. A review to specifically ensure our patients have had annual screening for screening for depression, screening for tobacco use, and screening for unhealthy alcohol use. For concerning screenings had a discussion with the patient, provided patient education, and recommended follow-up with primary care provider when appropriate. If patient noted with a risk of falling, they received education on strength, gait, and balance training to prevent future risk of falling. 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 The patient does not report intolerable side effects. The patient is NOT opioid naive and non-pharmacologic and non-opioid treatment has failed to significantly relieve the patient's pain and improve functionality. The patient has a diagnosis that is related to a somatic or vi sceral pain etiology. ? ?? I reviewed with the patient the potential risks and side effects with the use of? opioid medications including but not limited to respiratory depression,? sedation, and even . I verified the patient has access to naloxone should? these effects occur. I advised the patient to avoid the use of any other? sedation substances including alcohol, THC, and benzodiazepines while? taking opioid medications due to the risk of compounding side effects and? detrimental outcomes. I reviewed the [place] [employer], pain treatment agreement, urine? drug screen, and opioid start talking forms. The patient was advised to let? their family know they had Naloxone in case they would need to administer? the medication.? ?? A drug screen was completed within the last year, and no aberrancies were noted regarding their use of controlled substances. The patient understands they are subject to the terms and conditions of the pain contract that they have signed. ? ?? I have checked an [place] report on this patient today and there are no aberrancies noted in the prescribing history.? (6) Degenerative disc disease: Plan Based on history of chronic low back pain secondary to lumbar stenosis with NC unresponsive to PT/HEP greater than 6 weeks, conservative medications, heat/ice, bilateral L4-5 L5-S1 RFA, left L4-5 L5-S1 TFESI and left SIJ injection I would recommend patient undergo spinal cord stimulator trial. we reviewed preoperative testing would need to be completed, and psychiatric evaluation to be completed prior to trial. i reviewed the risks vs benefits of the trial and procedure. to be completed under fluoroscopy increase gabapentin 600mg TID, continue percocet 5-325mg BID PRN moderate to severe pain. tolerating without side effects. continues to notice improvement and pain and functional ability narcan previously prescribed f/u for spinal cord stimulator trial
== END 2024-04-13 13:52 | disposition home or self-care (01) ==
PROVIDERS: Visit Provider Nurse Practitioner
DX: M48.062 Spinal stenosis, lumbar region with neurogenic claudication (principal); M47.816 Spondylosis without myelopathy or radiculopathy, lumbar region; M62.838 Other muscle spasm; M24.29 Disorder of ligament, other specified site; Z79.891 Long term (current) use of opiate analgesic; M51.369 Other intervertebral disc degeneration, lumbar region without mention of lumbar back pain or lower extremity pain
CPT/HCPCS: G0463

== ENCOUNTER 2024-07-14 13:39 | Outpatient (OUT) | payer MEDICARE, SELFPAY ==
--- OUTSIDE RECORDS SUMMARY | 2024-07-14 13:45 | XMS_ITS | CCD ---
Author Organization [facility] Care Team Providers Care Pointing Machine Operator Name Role Phone BrightelishaalexShaikh Unavailable Unavailable Unavailable Juan Gonzalez Unavailable Unavailable Unavailable NAVEEN ., DR ELIGIO Burns Admitting Unavailable HODGE ., DR ELIGIO Burns Consulting Unavailable HODGE ., DR ELIGIO Burns Attending Unavailable FAWIAD, DIAL H Primary Care Unavailable JUAN ANTONIO LOMELI Consulting Unavailable HODGE ., DR ELIGIO Burns Admitting Unavailable FAWIAD, DIAL H Primary Care Unavailable ROSEN ., EVA Consulting Unavailable HODGE ., DR ELIGIO Burns Attending Unavailable HODGE ., DR ELIGIO Burns Admitting Unavailable FAWWAD, DIAL H Primary Care Unavailable ROSEN ., EVA Consulting Unavailable HODGE ., DR ELIGIO Burns Attending Unavailable FAWIAD, DIAL H Primary Care Unavailable LAKSHMIPATHY ., NARENDRANATH [...] NAVEEN ., DR ELIGIO Burns Admitting Unavailable NAVEEN ., DR ELIGIO Burns Admitting Unavailable FAWWAD, DIAL H Primary Care Unavailable HODGE ., DR ELIGIO Burns Consulting Unavailable HODGE ., DR ELIGIO Burns Attending Unavailable McGuinn II, Dr. Shashi Salas Attending Unavailable McGuinn II, Dr. Shashi Salas Referring Unavailable McGuinn II, Dr. Shashi Salas Attending Unavailable MD Misael Mchughikh Primary Care Provider MD Alta Schmid Attending Provider [phone] Alta Schmid Unavailable MD Misael Mchughikh Primary Care Provider MD Alta Schmid Attending Provider JOSE Staley Attending Provider MD Alta Schmid Referring Provider [phone] Neena Hi Unavailable MD Yojana Mchugh Primary Care Provider JOSE Staley Attending Provider MD Alta Schmid Referring Provider MD Yojana Mchugh Primary Care Provider MD Alta Schmid Referring Provider MD Rebeca Ashraf Attending Provider [phone] Alta Jya Attending Provider [phone] Giedraitis MD, Andrius Vytautpaul Attending Unavailable Giedraitis , Andrius Vytautas Attending Unavailable Giedraitis MD, Andrius Vytautas Attending Unavailable Giedraitis MD, Andrius Vytautas Attending Unavailable Giedraitis MD, Andrius Vytautas Attending Unavailable Giedraitis MD, Andrius Vytautas Attending Unavailable VILLA V, EZRA Attending Unavailable VILLA V, EZRA Attending Unavailable FAWWAD, DIAL Referring Unavailable FAWWAD, DIAL Attending Unavailable FAWWAD, DIAL Attending Unavailable FAWWAD, DIAL Attending Unavailable CARVER, JUAN ANTONIO Attending Unavailabl e NADJA FULTON Attending Unavailable CARVER, JUAN ANTONIO Referring Unavailabl e Jeison PRAJAPATI, Dial Primary Care Provider [phone] Sharmaine, Alta Attending Unavailable Sharmaine, Alta Admitting Unavailable Fawwad, Dial Primary Care Unavailable Sharmaine, Alta Attending Unavailable Sharmaine, Alta Admitting Unavailable Carver, Juan Antonio N Primary Care Unavaila ble Sharmaine, Alta Referring Unavailable Fawwad, Dial Primary Care Unavailable Al-Marrawi, Mhd Yaser Attending Unavailabl e Al-Marraochoa, Mhd Yaser Admitting Unavailabl e Carver MENTAL HEALTH SPECIALIST-C, Juan Antonio Mo Primary Care Provid er Alta Schmid MD Attending Provider Gaetano Andrea MD Primary Care Provider Wen FERNANDES, Juan Antonio Unavailable [phone] Allergies Allergy Classification Reported Allergen(s) Allergy Type Date of Onset Reaction(s) Facility (14 sources) predniSONE; Translations: [predniSONE] Drug Allergy 1 [facility], [facility] (2 sources) predniSONE Drug Allergy 5 [facility] (9 sources) prednisoLONE Drug Allergy 3 [facility] (9 sources) Prednisone Allergy to substance 4 [facility] (1 source) predniSONE Drug Allergy 4 [facility] Repository Medications Current Medications Medication Drug [...] aspirin 81 mg delayed release oral tablet (9 sources) Platelet Aggregation Inhibitor, Nonsteroidal Anti-inflammatory Drug take 1 tablet by mouth in the morning aspirin 81 MG EC tablet Take 1 tablet by mouth in the morning. Active atorvastatin 40 mg oral tablet (18 sources) HMG-CoA Reductase Inhibitor Start: 025 take 1 tablet by mouth in the morning atorvastatin (Lipitor) 40 MG tablet Indications: Mixed hyperlipidemia (CMS/HCC) Take 1 tablet (40 mg) by mouth in the morning. 90 tablet 1 05/24/2024 Active Start: 03-23-2023 End: 05-24-2024 take 1 tablet by mouth once daily in the morning atorvastatin (Lipitor) 40 MG tablet Indications: Mixed hyperlipidemia (CMS/HCC) take 1 tablet by mouth every morning 90 tablet 1 09/07/2023 05/24/2024 Discontinued (Reorder) bumetanide 0.5 mg oral tablet (20 sources) Loop Diuretic Start: 09-24-2023 End: 05-12-2024 take 1 tablet by mouth once daily bumetanide (Bumex) 0.5 MG tablet Indications: Chronic diastolic congestive heart failure (CMS/HCC) Take 1 tablet (0.5 mg) by mouth Daily 90 tablet 1 05/12/2024 Active Start: 01-24-2021 End: 03-23-2023 take 1 tablet by mouth once daily Bumetanide 0.5 mg tablet Active 0.5 MG PO Daily March 23, 2023 12:00am take 1 tablet by rafat th every twenty-four hours Bumetanide 0.5 MG 1 TAB BY MOUTH Orally every 24 hrs Active Xbeyflyslnz-Quydiaofj-Gbzvvq (Trelegy Ellipta) 200-62.5-25 MCG/ACT aerosol powder (8 sources) Start: 12-14-2023 take 1 puff(s) by inhalation once daily Pyphgcmjkza-Thwjreluc-Pxiyul (Trelegy Ellipta) 200-62.5-25 MCG/ACT aerosol powder Indications: Pulmonary emphysema, unspecified emphysema type (CMS/HCC) Inhale 1 puff Daily 1 each 1 12/14/2023 Active Start: 12-14-2023 End: 01-13-2024 take 1 puff(s) by inhalation once daily Luvynbdvpgv-Ztdwxsppt-Epqyaz (Trelegy Ellipta) 200-62.5-25 MCG/ACT aerosol powder Indications: Pulmonary emphysema, unspecified emphysema type (CMS/HCC) Inhale 1 puff Daily 1 each 1 12/14/2023 01/13/2024 Active gabapentin 600 mg oral tablet (20 sources) Anti-epileptic Agent Start: 03-23-2023 End: 05-09-2024 take 1 tablet by mouth in the morning, then take 1 tablet by mouth in the evening, then take 1 tablet by mouth at bedtime gabapentin (Neurontin) 600 MG tablet Indications: Diabetic polyneuropathy associated with type 2 diabetes mellitus (CMS/HCC) TAKE 1 TABLET BY MOUTH IN THE MORNING AND 1 TABLET BY MOUTH IN THE EVENING AND 1 TABLET BY MOUTH BEFORE BEDTIME 90 tablet 2 05/09/2024 Active Start: 01-24-2021 End: 03-23-2023 take 1 [...] / losartan potassium 100 mg oral tablet (18 sources) Thiazide Diuretic, Angiotensin 2 Receptor Niko Start : 05-12 take 1 tablet by mouth in the morning losartan-hydroCHLOROthia zide (Hyzaar) 100-25 MG tablet Indications: Primary hypertension (CMS/HCC) Take 1 tablet by mouth in the morning. 90 tablet 1 05/12/2024 Active Start: 03-23-2023 End: 05-12-2024 take 1 tablet by mouth once daily in the morning losartan-hydroCHLOROthiazide (Hyzaar) 10 0-25 MG tablet Indications: Primary hypertension (CMS/HCC) take 1 tablet by mouth every morning 90 tablet 1 10/19/2023 05/12/2024 Discontinued (Reorder) 3 ml insulin isophane, human 100 unt/ml pen injector (2 sources) NovoLIN N FlexPe n 100 UNIT/ML as directed Subcutaneous 20 UNITS TWICE A DAY Active 3 ml insulin isophane, human 70 unt/ml / insulin, regular, human 30 unt/ml pen injector (14 sources) Insulin Start: 11-11-2023 End: 02-09-2024 insulin NPH-insulin regular (NovoLIN 70/30 FlexPen Relion) (70-30) 100 UNIT/ML injection Indications: Type 2 diabetes mellitus with stage 3a chronic kidney disease, with long-term current use of insulin (HCC) ([facility]) Inject 20 Units under the skin in [...] Active magnesium oxide 400 mg oral tablet (20 sources) Start: 09-17-2023 take 1 tablet by mouth in the morning magnesium oxide (Mag-Ox) 400 (240 Mg) MG tablet Take 400 mg by mouth in the morning and 400 mg before bedtime. 09/17/2023 Active Start: 09-16-2023 End: 09-16-2023 take 1 tablet by mouth twice daily Magnesium Oxide 400 mg (241.3 mg magnesium) tablet Active 400 MG PO Twice daily September 16, 2023 10:35am Start: 06-24-2023 End: 09-16-2023 take 1 tablet by mouth once daily magnesium oxide (Mag -Ox) 400 MG tablet Take 1 tablet by mouth Daily 06/24/2023 Active take 1 tablet by rafat th once daily at mealtime Magnesium Oxide 250 [...] 2023 2:48pm take 2 tablets by mo [facility] once daily Metoprolol Tartrate 50 MG Oral [...] daily PARoxetine hydrochloride 20 mg oral tablet (20 sources) Serotonin Reuptake Inhibitor Start: 03-23-2023 End: 01-18-2024 take 1 tablet by mouth in the morning PARoxetine (Paxil) 20 MG tablet Indications: Moderate episode of recurrent major depressive disorder (CMS/HCC) Take 1 tablet (20 mg) by mouth in the morning. 90 tablet 1 01/18/2024 Active Start: 01-24-2021 End: 03-23-2023 take 1 tablet by mouth once daily Paroxetine Hcl 10 mg tablet Discontinued 10 MG PO Daily January 23, 2021 11:00pm March 23, 2023 2:48pm pramipexole dihydrochloride 0.5 mg oral tablet (17 sources) Nonergot Dopamine Agonist Start: 03-22-2024 take 0.25 mg by mouth once daily Pramipexole 0.5 mg tablet Active 0.25 MG PO Daily March 22, 2024 11:24am Start: 10-19-2023 End: 04-16-2024 take 1 tablet by mouth at bedtime pramipexole (Mirapex) 0.25 MG tablet Indications: RLS (restless legs syndrome) Take 1 tablet (0.25 mg) by mouth at bedtime 90 tablet 1 10/19/2023 Active Start: 03-23-2023 End: 03-22-2024 take 1 [...] (7 sources) Dihydropyridine Calcium Channel Niko Start: 1 End: 3 take 1 tablet [...] mg oral tablet (15 sources) Biguanide Start: 1 End: 3 take 1 tablet [...] DO Active tiZANidine 4 mg oral tablet (15 sources) Central alpha-2 Adrenergic Agonist Start: 1 End: 3 take 1 tablet [...] 4 Chronic obstructive pulmonary disease and bronchiectasis (10 sources) Chronic obstructive pulmonary disease, unspecified; Translations: [Pulmonary emphysema] Onset: 2 04-13-2023 Chronic Congestive heart failure; nonhypertensive (10 sources) Chronic diastolic heart failure; Translations: [Chronic diastolic (congestive) heart failure] Onset: 3 04-13-2023 Chronic Diabetes mellitus with complications (20 sources) Disorder of kidney due to diabetes [...] Onset: 2 Chronic Disorders of lipid metabolism (15 sources) Hyperlipidemia, unspecified; Translations: [Mixed hyperlipidemia] Onset: 2 Chronic Essential hypertension (14 sources) Hypertensive disorder; Translations: [Unspecified essential hypertension] Onset: 3 04-13-2023 Chronic Hypertension with complications and secondary hypertension (10 sources) Malignant hypertensive chronic kidney disease; Translations: [Hypertensive chronic kidney disease with stage 1 through stage 4 chronic kidney disease, or unspecified chronic kidney disease] Onset: 2 Chronic Miscellaneous mental health disorders (9 sources) Psychophysiologic insomnia; Translations: [Psychophysiologic insomnia] Onset: 4 07-13-2023 Chronic Mood disorders (20 sources) Major depression in full remission; Translations: [Major depressive disorder, single episode, in full remission] Onset: 3 04-13-2023 Chronic Mycoses (12 sources) Mycosis; Translations: [Candidiasis, unspecified] 06-24-2023 Episodic [...] Other hereditary and degenerative nervous system conditions (9 sources) Restless legs; Translations: [Restless legs syndrome] [...] inflammatory arthritis and tophaceous disease] 09-16-2023 Episodic Spondylosis; intervertebral disc disorders; other back problems (20 sources) Prolapsed cervical intervertebral disc; Translations: [Other cervical disc displacement, unspecified cervical region] Onset: 2 Resolved: 2 Chronic Substance-related disorders (18 sources) Smoker; Translations: [Tobacco use disorder] Onset: [...] Episodic/Chronic Immunizations and screening for infectious disease (20 sources) Patient encounter status; Translations: [Other specified vaccination] Onset: 04-13-2023 04-13-2023 Episodic Nonspecific chest pain (4 sources) Chest pain, unspecified; Translations: [CHEST PAIN UNSPECIFIED] Onset: 11-28-2021 Episodic Other aftercare (1 source) Other shelter (current) drug therapy; Translations: [OTH SNF CURRENT DRUG THERAPY] Onset: 12-04-2021 Episodic Other connective tissue disease (9 sources) Disorder of back; Translations: [Disorder of ligament, vertebrae] Onset: 04-08-2023 04-08-2023 Episodic Other connective tissue disease (9 sources) H/O: osteoarthritis; Translations: [Personal history of other diseases of the musculoskeletal system and connective tissue] Onset: 04-08-2023 04-08-2023 Episodic Other connective tissue disease (9 sources) Spasm; Translations: [Other muscle spasm] Onset: 04-08-2023 04-08-2023 Episodic Other lower respiratory disease (1 source) Shortness of breath; Translations: [SHORTNESS OF BREATH] Onset: 12-04-2021 Episodic Other skin disorders (2 sources) Dystrophia unguium; Translations: [Nail dystrophy] 01-06-2024 Episodic Residual codes; unclassified (1 source) Procedure and treatment not carried out for other reasons; Translations: [PROC AND TX NOT CARRIED OUT OTH REASONS] Onset: 05-28-2022 Episodic Skin and subcutaneous tissue infections (19 sources) Furuncle; Translations: [Furuncle, unspecified] Onset: 07-03-2023 06-24-2023 Episodic Spondylosis; intervertebral disc disorders; other back problems (20 sources) Cervical disc disorder at C5-C6 level [...] Bromocresol green (BCG) dye binding metho 3.5-5.7 [facility] Appearance of UrineOrdered B y: Alta Schmid on 03-14-2024 Appearance (U) Urine appearance Clear [facility] Bacteria [Presence] in Urine by AutomatedOrdered By: Alta Schmid on 03-14-2024 Bacteria Auto Ql (U) Bacteria [Presence] in Urine by Automated None Seen [facility] Bilirubin Test strip Ql (U)O rdered By: Alta Schmid on 03-14-2024 Bilirubin Ql (U) Bilirubin.total [Presence] in Urine by Test strip Negative [facility] Calcium [Mass/volume] in Ser um or PlasmaOrdered By: Alta Schmid on 03-14-2024 Calcium [Mass/Vol] Calcium [Mass/volume] in Serum or Plasma 8.6-10.3 [facility] Carbon dioxide, total [Moles /volume] in Serum or PlasmaOrdered By: Alta Schmid on 03-14-2024 CO2 [Moles/Vol] Carbon dioxide, total [Moles/volume] in Serum or Plasma 21.0-31.0 [facility] Chloride [Moles/volume] in S carlos or PlasmaOrdered By: Alta Schmid on 03-14-2024 Chloride [Moles/Vol] Chloride [Moles/volume] in Serum or Plasma 98-107 [facility] Color Auto (U)Ordered By: Ab richard Schmid on 03-14-2024 Color (U) Color of Urine by Auto Yellow [facility] Creatinine [Mass/volume] in Serum or PlasmaOrdered By: Alta Schmid on 03-14-2024 Creatinine [Mass/Vol] Creatinine [Mass/volume] in Serum or Plasma High 0.60-1.20 [facility] Creatinine [Mass/volume] in UrineOrdered By: Alta Schmid on 03-14-2024 Creatinine (U) [Mass/Vol] Creatinine [Mass/volume] in Urine [facility] Comment on above: No reference range e stablished Dipstick and Microscopicon 1 05-14-2023 Appearance (U) Clear Normal Clear [facility] Comment on above: Order Comment: Reaso n for Exam Chronic kidney disease, stage III (moderate);Diabetes mellit Performed By: #### C BCNO #### [facility] [address] Bacteria,Urine Rare Normal None Seen [facility] Comment on above: Order Comment: Reaso n for Exam Chronic kidney disease, stage III (moderate);Diabetes mellit Performed By: #### C BCNO #### [facility] [address] Bilirubin,Urine Negative Normal Negative [facility] Comment on above: Order Comment: Reaso n for Exam Chronic kidney disease, stage III (moderate);Diabetes mellit Performed By: #### C BCNO #### [facility] [address] Color (U) Colorless Normal Yellow [facility] Comment on above: Order Comment: Reaso n for Exam Chronic kidney disease, stage III (moderate);Diabetes mellit Performed By: #### C BCNO #### [address] Glucose Ql (U) 200 mg/dL High Normal [facility] Comment on above: Order Comment: Reaso n for Exam Chronic kidney disease, stage III (moderate);Diabetes mellit Performed By: #### C BCNO #### [facility] [address] Hyaline Casts,Urine 0 [LPF] Normal 0-8 [facility] Comment on above: Order Comment: Reaso n for Exam Chronic kidney disease, stage III (moderate);Diabetes mellit Performed By: #### C BCNO #### [facility] [address] Ketones Ql (U) Negative Normal Negative [facility] Comment on above: Order Comment: Reaso n for Exam Chronic kidney disease, stage III (moderate);Diabetes mellit Performed By: #### C BCNO #### [address] Leukocyte esterase Test strip Ql (U) Negative Normal Negative [facility] Comment on above: Order Comment: Reaso n for Exam Chronic kidney disease, stage III (moderate);Diabetes mellit Performed By: #### C BCNO #### [place] [address] [place] Mucus,Urine Rare Normal [facility] Comment on above: Order Comment: Reaso n for Exam Chronic kidney disease, stage III (moderate);Diabetes mellit Result Comment: PERF ORMED BY: [place] [address] PATHOLOGIST TECHNICAL ASSOCIATE SHANTE LOMBARDI M.D. Performed By: #### C BCNO #### [address] Nitrite,Urine Negative Normal Negative [facility] Comment on above: Order Comment: Reaso n for Exam Chronic kidney disease, stage III (moderate);Diabetes mellit Performed By: #### C BCNO #### [address] Occult Blood,Urine Negative Normal Negative [facility] Comment on above: Order Comment: Reaso n for Exam Chronic kidney disease, stage III (moderate);Diabetes mellit Performed By: #### C BCNO #### [address] pH (U) 5.5 [pH] Normal 5.0-9.0 [facility] Comment on above: Order Comment: Reaso n for Exam Chronic kidney disease, stage III (moderate);Diabetes mellit Performed By: #### C BCNO #### [address] Protein,Urine Negative Normal Negative [facility] Comment on above: Order Comment: Reaso n for Exam Chronic kidney disease, stage III (moderate);Diabetes mellit Performed By: #### C BCNO #### [address] RBC,Urine 1 [HPF] Normal 0-4 [facility] Comment on above: Order Comment: Reaso n for Exam Chronic kidney disease, stage III (moderate);Diabetes mellit Performed By: #### C BCNO #### [address] Specificy [place],Urine 1.008 Normal 1.001-1.030 [facility] Comment on above: Order Comment: Reaso n for Exam Chronic kidney disease, stage III (moderate);Diabetes mellit Performed By: #### C BCNO #### [facility] [address] Squamous Epithelial Cell,Urine 3 [HPF] High 0-2 [facility] Comment on above: Order Comment: Reaso n for Exam Chronic kidney disease, stage III (moderate);Diabetes mellit Performed By: #### C BCNO #### [facility] [address] Urobilinogen,Urine Normal Normal Normal [facility] Comment on above: Order Comment: Reaso n for Exam Chronic kidney disease, stage III (moderate);Diabetes mellit Performed By: #### C BCNO #### [facility] [address] [place] [address] WBC,Urine 1 [HPF] Normal 0-4 [facility] Comment on above: Order Comment: Reaso n for Exam Chronic kidney disease, stage III (moderate);Diabetes mellit Performed By: #### C BCNO #### [address] Epithelial cells.squamous [# /area] in Urine sediment by Automated countOrdered By: Alta Schmid on 03-14-2024 Epithelial cells.squamous Auto (Urine sed) [#/Area] Epithelial cells.squamous [#/area] in Urine sediment by Automated count High 0-2 [facility] Erythrocyte distribution wid th Auto (RBC) [Ratio]Ordered By: Alta Schmid on 03-14-2024 Erythrocyte distribution width (RBC) [Ratio] Erythrocyte distribution width [Ratio] by Automated count 11.9-15.3 [facility] Erythrocytes [#/area] in Uri ne sediment by Automated countOrdered By: Alta Schmid on 03-14-2024 RBC Auto (Urine sed) [#/Area] Erythrocytes [#/area] in Urine sediment by Automated count 0-4 [facility] Glucose [Mass/volume] in Ser um or PlasmaOrdered By: Alta Schmid on 03-14-2024 Glucose [Mass/Vol] Glucose [Mass/volume] in Serum or Plasma High 70-100 [facility] Comment on above: ADA recommended refe [...] in Urine by Test strip High Normal [facility] Hematocrit Auto (Bld) [Volum e fraction]Ordered By: Alta Schmid on 03-14-2024 Hematocrit (Bld) [Volume fraction] Hematocrit [Volume Fraction] of Blood by Automated count 34.0-46.4 [facility] Hemoglobin Test strip Ql (U) Ordered By: Alta Schmid on 03-14-2024 Hemoglobin Ql (U) Hemoglobin [Presence] in Urine by Test strip Negative [facility] Hemoglobin [Mass/volume] in BloodOrdered By: Alta Schmid on 03-14-2024 Hemoglobin (Bld) [Mass/Vol] Hemoglobin [Mass/volume] in Blood 11.8-15.4 [facility] Hemogram CBC Without Diffon 03-14-2024 Erythrocyte distribution width (RBC) [Ratio] 14.5 % Normal 11.9-15.3 [facility] Comment on above: Performed By: #### C BCNO #### [facility] [address] Hematocrit (Bld) [Volume fraction] 43.9 % Normal 34.0-46.4 [facility] Comment on above: Performed By: #### C BCNO #### [facility] [address] Hemoglobin (Bld) [Mass/Vol] 15.1 g/dL Normal 11.8-15.4 [facility] Comment on above: Performed By: #### C BCNO #### [facility] [address] [place] [id number] [place] MCH (RBC) [Entitic mass] 31.0 pg Normal 24.7-34.3 [facility] Comment on above: Performed By: #### C BCNO #### [address] MCV (RBC) [Entitic vol] 90.4 fL Normal 80-100 [facility] Comment on above: Performed By: #### C BCNO #### [address] Mean Corpuscular HGB Conc 34.3 g/dL Normal 32.0-35.0 [facility] Comment on above: Performed By: #### C BCNO #### [address] Platelet mean volume (Bld) [Entitic vol] 8.7 fL Normal 6.3-10.7 [facility] Comment on above: Result Comment: PERF ORMED BY: [place] [address] PATHOLOGIST TECHNICAL ASSOCIATE SHANTE LOMBARDI M.D. Performed By: #### C BCNO #### [address] Platelets (Bld) [#/Vol] 268 10*3/uL Normal 150-450 [facility] Comment on above: Performed By: #### C BCNO #### [address] RBC (Bld) [#/Vol] 4.86 10*6/uL Normal 3.60-5.00 [facility] Comment on above: Performed By: #### C BCNO #### [address] WBC (Bld) [#/Vol] 11.8 10*3/uL High 3.8-11.6 [facility] Comment on above: Performed By: #### C BCNO #### [address] Hyaline casts [#/area] in Ur ine sediment by Automated countOrdered By: Alta Schmid on 03-14-2024 Hyaline casts Auto (Urine sed) [#/Area] Hyaline casts [#/area] in Urine sediment by Automated count 0-8 [facility] Ketones Test strip Ql (U)Ord ered By: Alta Schmid on 03-14-2024 Ketones Ql (U) Ketones [Presence] in Urine by Test strip Negative [facility] Leukocyte esterase [Presence ] in Urine by Test stripOrdered By: Alta Schmid on 03-14-2024 Leukocyte esterase Test strip Ql (U) Leukocyte esterase [Presence] in Urine by Test strip Negative [facility] Leukocytes [#/area] in Urine sediment by Automated countOrdered By: Alta Schmid on 03-14-2024 WBC Auto (Urine sed) [#/Area] Leukocytes [#/area] in Urine sediment by Automated count 0-4 [facility] Leukocytes [#/volume] correc janet for nucleated erythrocytes in Blood by Automated counOrdered By: Alta Schmid on 03-14-2024 WBC corrected for nucl RBC Auto (Bld) [#/Vol] Leukocytes [#/volume] corrected for nucleated erythrocytes in Blood by Automated coun High 3.8-11.6 [facility] MCH Auto (RBC) [Entitic mass ]Ordered By: Alta Schmid on 03-14-2024 MCH (RBC) [Entitic mass] MCH [Entitic ma ss] by Automated count 24.7-34.3 [facility] MCHC Auto (RBC) [Mass/Vol]Or dered By: Alta Schmid on 03-14-2024 MCHC (RBC) [Mass/Vol] MCHC [Mass/volume] by Automated count 32.0-35.0 [facility] MCV Auto (RBC) [Entitic vol] Ordered By: Alta Schmid on 03-14-2024 MCV (RBC) [Entitic vol] MCV [Entitic volume] by Automated count 80-100 [facility] Magnesiumon 03-14-2024 Magnesium [Mass/Vol] 1.3 mg/dL Low 1.9-2.7 [facility] Comment on above: Performed By: #### C BCNO #### [address] Magnesium [Mass/volume] in S carlos or PlasmaOrdered By: Alta Schmid on 03-14-2024 Magnesium [Mass/Vol] Magnesium [Mass/volume] in Serum or Plasma Low 1.9-2.7 [facility] Mucus [Presence] in Urine by AutomatedOrdered By: Alta Schmid on 03-14-2024 Mucus Auto Ql (U) Mucus [Presence] in Urine by Automated [facility] Nitrite Test strip Ql (U)Ord ered By: Alta Schmid on 03-14-2024 Nitrite Ql (U) Nitrite [Presence] in Urine by Test strip Negative [facility] No Panel InformationOrdered By: Alta Schmid on 03-14-2024 Estimated GFR (CKD-EPI) 39.618 mL/Min [facility] Creatinine Clearance (Chem N/A [facility] Parathyrin.intact [Mass/volu me] in Serum or PlasmaOrdered By: Alta Schmid on 03-14-2024 Parathyrin.intact [Mass/Vol] Parathyrin.intact [Mass/volume] in Serum or Plasma [facility] Parathyroid Hormone Intacton 03-14-2024 Parathyroid Hormone Intact 50.5 pg/mL Normal [facility] Comment on above: Result Comment: PERF ORMED BY: [place] [address] PATHOLOGIST TECHNICAL ASSOCIATE SHANTE LOMBARDI M.D. Performed By: #### C BCNO #### [address] Phosphate [Mass/volume] in S carlos or PlasmaOrdered By: Alta Schmid on 03-14-2024 Phosphate [Mass/Vol] Phosphate [Mass/volume] in Serum or Plasma 2.5-4.5 [facility] Platelet mean volume Auto (B ld) [Entitic vol]Ordered By: Alta Schmid on 03-14-2024 Platelet mean volume (Bld) [Entitic vol] Platelet mean volume [Entitic volume] in Blood by Automated count 6.3-10.7 [facility] Platelets Auto (Bld) [#/Vol] Ordered By: Alta Schmid on 03-14-2024 Platelets (Bld) [#/Vol] Platelets [#/volume] in Blood by Automated count 150-450 [facility] Potassium [Moles/volume] in Serum or PlasmaOrdered By: Alta Schmid on 03-14-2024 Potassium [Moles/Vol] Potassium [Moles/volume] in Serum or Plasma 3.5-5.1 [facility] Protein Creat Ratio Ur Rando mon 03-14-2024 Creatinine, Urine (Random) 25.00 mg/dL Normal [facility] Comment on above: Result Comment: No r eference range established Performed By: #### C BCNO #### [address] Protein (U) [Mass/Vol] 9 mg/dL Normal 0-9 [facility] Comment on above: Performed By: #### C BCNO #### [address] Urine Protein/Creatinine Ratio 360 mg/g{Cre} High 0-200 [facility] Comment on above: Result Comment: PERF ORMED BY: [place] [address] PATHOLOGIST TECHNICAL ASSOCIATE SHANTE LOMBARDI M.D. Performed By: #### C BCNO #### [address] Protein Test strip (U) [Mass /Vol]Ordered By: Alta Schmid on 03-14-2024 Protein (U) [Mass/Vol] Protein [Mass/volume] in Urine by Test strip Negative [facility] Protein [Mass/volume] in Uri neOrdered By: Alta Schmid on 03-14-2024 Protein (U) [Mass/Vol] Protein [Mass/volume] in Urine 0-9 [facility] RBC Auto (Bld) [#/Vol]Ordere d By: Alta Schmid on 03-14-2024 RBC (Bld) [#/Vol] Erythrocytes [#/volume] in Blood by Automated count 3.60-5.00 [facility] Renal Function Panelon 03-14 Albumin [Mass/Vol] 3.9 g/dL Normal 3.5-5.7 [facility] Comment on above: Performed By: #### C BCNO #### [facility] [address] [place] [address] [place] Anion gap [Moles/Vol] 12.5 mmol/L Normal 6.0-15.0 [facility] Comment on above: Performed By: #### C BCNO #### [facility] [address] [place] [id number] [place] Calcium [Mass/Vol] 9.3 mg/dL Normal 8.6-10.3 [facility] Comment on above: Performed By: #### C BCNO #### [facility] [address] [place] [address] [place] Chloride [Moles/Vol] 100 mmol/L Normal 98-107 [facility] Comment on above: Performed By: #### C BCNO #### [facility] [address] [place] [address] [place] CO2 [Moles/Vol] 28.3 mmol/L Normal 21.0-31.0 [facility] Comment on above: Performed By: #### C BCNO #### [facility] [address] [place] [address] [place] Creatinine [Mass/Vol] 1.44 mg/dL High 0.60-1.20 [facility] Comment on above: Performed By: #### C BCNO #### [facility] [address] [place] [id number] [place] GFR/1.73 sq M.predicted MDRD (S/P/Bld) [Vol rate/Area] 39.618 mL/min/{1.73_m2} Normal [facility] Comment on above: Performed By: #### C BCNO #### [facility] [address] [place] [phone] [place] Glucose [Mass/Vol] 361 mg/dL High 70-100 [facility] Comment on above: Result Comment: [facility] om Glucose Reference Range is dependent on time and content of last meal. Glucose of more than 200 mg/dL in a nonstressed, ambulatory subject supports the diagnosis of Diabetes Mellitus. ADA recommended reference range Performed By: #### C BCNO #### [facility] [address] Phosphate [Mass/Vol] 3.0 mg/dL Normal 2.5-4.5 [facility] Comment on above: Performed By: #### C BCNO #### [facility] [address] [place] [id number] [facility] Potassium [Moles/Vol] 4.8 mmol/L Normal 3.5-5.1 [facility] Comment on above: Performed By: #### C BCNO #### [facility] [address] Sodium [Moles/Vol] 136 mmol/L Normal 136-145 [facility] Comment on above: Performed By: #### C BCNO #### [address] Urea nitrogen [Mass/Vol] 27 mg/dL High 7-25 [facility] Comment on above: Performed By: #### C BCNO #### [address] Serum or plasma anion gap de terminationOrdered By: Alta Schmid on 03-14-2024 Anion gap [Moles/Vol] Serum or plasma anion gap determination 6.0-15.0 [facility] Sodium [Moles/volume] in Ser um or PlasmaOrdered By: Alta Schmid on 03-14-2024 Sodium [Moles/Vol] Sodium [Moles/volume] in Serum or Plasma 136-145 [facility] Specific gravity Test strip (U) [Rel density]Ordered By: Alta Schmid on 03-14-2024 Specific gravity (U) [Rel density] Specific gravity of Urine by Test strip 1.001-1.030 [facility] Urate [Mass/volume] in Serum or PlasmaOrdered By: Alta Schmid on 03-14-2024 Urate [Mass/Vol] Urate [Mass/volume] in Serum or Plasma High 2.3-6.6 [facility] Urea nitrogen [Mass/volume] in Serum or PlasmaOrdered By: Alta Schmid on 03-14-2024 Urea nitrogen [Mass/Vol] Urea nitrogen [Mass/volume] in Serum or Plasma High 7-25 [facility] Uric Acidon 03-14-2024 Urate [Mass/Vol] 6.9 mg/dL High 2.3-6.6 [facility] Comment on above: Performed By: #### C BCNO #### [facility] [address] Urine protein/creatinine rat ioOrdered By: Alta Schmid on 03-14-2024 Protein/Creatinine (U) [Ratio] Urine protein/creatinine ratio High 0-200 [facility] Urobilinogen Test strip (U) [Mass/Vol]Ordered By: Alta Sharmaine on 03-14-2024 Urobilinogen (U) [Mass/Vol] Urobilinogen [Mass/volume] in Urine by Test strip Normal [facility] Vitamin D 25 Hydroxy Totalon 03-14-2024 Vitamin D 25 Hydroxy Total 30.4 ng/mL Normal 30-100 [facility] Comment on above: Result Comment: DEBORAH MIN D STATUS 25(OH)VITAMIN D RANGE (ng/mL) Deficient <20 Insufficient 20 to <30 Sufficient 30 to 100 Reference: Isai Rich, Randa WALSH, et al. Evaluation,treatment, and prevention of vitamin D deficiency; an Endocrine Society clinical practice guideline. JCEM. 2010; 96(7):1911-30. PERFORMED BY: [place] [address] PATHOLOGIST TECHNICAL ASSOCIATE SHANTE LOMBARDI M.D. Performed By: #### C BCNO #### [place] [id number] [facility] Vitamin D+Metabolites [Mass/ volume] in Serum or PlasmaOrdered By: Alta Sharmaine on 03-14-2024 Vitamin D+Metabolites [Mass/Vol] Vitamin D+Metabolites [Mass/volume] in Serum or Plasma 30-100 [facility] Comment on above: VITAMIN D STATUS 25( [place])VITAMIN D RANGE (ng/mL) Deficient <20 Insufficient 20 to <30Sufficient 30 to 100Reference: Killian Richey [place], Randa WALSH, et al. Evaluation,treatment, and prevention of vitamin D deficiency; an Endocrine Society clinical practice guideline. JCEM. 2010; 96(7):1911-30. pH Test strip (U)Ordered By: Alta Schmid on 03-14-2024 pH (U) pH of Urine by Test strip 5.0-9.0 [facility] Albumin [Mass/volume] in Ser um or Plasma by Bromocresol green (BCG) dye binding methoOrdered By: Alta Schmid on 09-12-2023 Albumin BCG dye [Mass/Vol] 3.9 g/dL 3.5-5.7 [facility] Automated erythrocytes count in urine sediment (number/area)Ordered By: Alta Schmid on 09-12-2023 RBC Auto (Urine sed) [#/Area] None seen [HPF] 0-4 [facility] Automated leukocytes count i n urine sediment (number/area)Ordered By: Alta Schmid on 09-12-2023 WBC Auto (Urine sed) [#/Area] 0-1 [HPF] 0-4 [facility] Automated urine color determ inationOrdered By: Alta Schmid on 09-12-2023 Color (U) Yellow Normal Yellow [facility] Comment on above: Order Comment: Name Collection Type:: Clean-Voided Midstream Performed By: #### C BCNO, ADDONUAPLUS, PROCRERAT, PTH, RENAL, MG, URIC, [id number] ####[facility] [id number] [place] [phone] [facility] Bilirubin Test strip Ql (U)O rdered By: Alta Schmid on 09-12-2023 Bilirubin Ql (U) Negative Negative [facility] Calcium [Mass/volume] in Ser um or PlasmaOrdered By: Alta Schmid on 09-12-2023 Calcium [Mass/Vol] 9.3 mg/dL Normal 8.6-10.3 [facility] Comment on above: Performed By: #### C BCNO, ADDONUAPLUS, PROCRERAT, PTH, RENAL, MG, URIC, [id number] ####[address] [address] [facility] Carbon dioxide, total [Moles /volume] in Serum or PlasmaOrdered By: Alta Schmid on 09-12-2023 CO2 [Moles/Vol] 26.0 mmol/L Normal 21.0-31.0 [facility] Comment on above: Performed By: #### C BCNO, ADDONUAPLUS, PROCRERAT, PTH, RENAL, MG, URIC, [id number] ####[place] [phone] [facility] Chloride [Moles/volume] in S carlos or PlasmaOrdered By: Alta Schmid on 09-12-2023 Chloride [Moles/Vol] 101 mmol/L Normal 98-107 [facility] Comment on above: Performed By: #### C BCNO, ADDONUAPLUS, PROCRERAT, PTH, RENAL, MG, URIC, [id number] ####[place] [phone] [facility] Creatinine [Mass/volume] in Serum or PlasmaOrdered By: Alta Schmid on 09-12-2023 Creatinine [Mass/Vol] 1.41 mg/dL High 0.60-1.[address] [facility] Comment on above: Performed By: #### C BCNO, ADDONUAPLUS, PROCRERAT, PTH, RENAL, MG, URIC, [id number] ####[address] [address] [facility] Creatinine [Mass/volume] in UrineOrdered By: Alta Schmid on 09-12-2023 Creatinine (U) [Mass/Vol] 59.0 mg/dL [facility] Comment on above: No reference range e stablished Dipstick and Microscopicon 0 09-12-2023 Appearance (U) Clear Normal Clear [facility] Comment on above: Order Comment: Name Collection Type:: Clean-Voided Midstream Performed By: #### C BCNO, ADDONUAPLUS, PROCRERAT, PTH, RENAL, MG, URIC, [id number] ####[address] [place] [address] [facility] Bacteria,Urine None Seen Normal None Seen [facility] Comment on above: Order Comment: Name Collection Type:: Clean-Voided Midstream Performed By: #### C BCNO, ADDONUAPLUS, PROCRERAT, PTH, RENAL, MG, URIC, [id number] ####[address] [address] [facility] Bilirubin,Urine Negative Normal Negative [facility] Comment on above: Order Comment: Name Collection Type:: Clean-Voided Midstream Performed By: #### C BCNO, ADDONUAPLUS, PROCRERAT, PTH, RENAL, MG, URIC, [id number] ####[place] [phone] [facility] Glucose Ql (U) 250 mg/dL High Normal [facility] Comment on above: Order Comment: Name Collection Type:: Clean-Voided Midstream Performed By: #### C BCNO, ADDONUAPLUS, PROCRERAT, PTH, RENAL, MG, URIC, [id number] ####[address] [address] [facility] Hyaline Casts,Urine None Seen Normal 0-8 [facility] Comment on above: Order Comment: Name Collection Type:: Clean-Voided Midstream Result Comment: PERF ORMED BY: [facility] [address] [facility] [place] [address] PATHOLOGIST TECHNICAL ASSOCIATE SHANTE LOMBARDI M.D. Performed By: #### C BCNO, ADDONUAPLUS, PROCRERAT, PTH, RENAL, MG, URIC, [id number] ####[address] [address] [facility] Ketones Ql (U) Negative Normal Negative [facility] Comment on above: Order Comment: Name Collection Type:: Clean-Voided Midstream Performed By: #### C BCNO, ADDONUAPLUS, PROCRERAT, PTH, RENAL, MG, URIC, [id number] ####[place] [phone] [facility] Leukocyte esterase Test strip Ql (U) Negative Normal Negative [facility] Comment on above: Order Comment: Name Collection Type:: Clean-Voided Midstream Performed By: #### C BCNO, ADDONUAPLUS, PROCRERAT, PTH, RENAL, MG, URIC, [id number] ####[address] [address] [facility] Nitrite,Urine Negative Normal Negative [facility] Comment on above: Order Comment: Name Collection Type:: Clean-Voided Midstream Performed By: #### C BCNO, ADDONUAPLUS, PROCRERAT, PTH, RENAL, MG, URIC, [id number] ####[address] [address] [facility] Occult Blood,Urine Negative Normal Negative [facility] Comment on above: Order Comment: Name Collection Type:: Clean-Voided Midstream Performed By: #### C BCNO, ADDONUAPLUS, PROCRERAT, PTH, RENAL, MG, URIC, [id number] ####[address] [address] [facility] RBC,Urine None Seen Normal 0-4 [facility] Comment on above: Order Comment: Name Collection Type:: Clean-Voided Midstream Performed By: #### C BCNO, ADDONUAPLUS, PROCRERAT, PTH, RENAL, MG, URIC, [id number] ####[address] [address] [facility] Specificy [place],Urine 1.014 Normal 1.001-1.030 [facility] Comment on above: Order Comment: Name Collection Type:: Clean-Voided Midstream Performed By: #### C BCNO, ADDONUAPLUS, PROCRERAT, PTH, RENAL, MG, URIC, [id number] ####[address] [address] [facility] Squamous Epithelial Cell,Urine 1-2 Normal 0-2 [facility] Comment on above: Order Comment: Name Collection Type:: Clean-Voided Midstream Performed By: #### C BCNO, ADDONUAPLUS, PROCRERAT, PTH, RENAL, MG, URIC, [id number] ####[place] [address] [address] Urobilinogen,Urine Normal Normal Normal [facility] Comment on above: Order Comment: Name Collection Type:: Clean-Voided Midstream Performed By: #### C BCNO, ADDONUAPLUS, PROCRERAT, PTH, RENAL, MG, URIC, [id number] ####[place] [address] [place] [phone] [facility] WBC LM.HPF (Urine sed) [#/Area] 0 /[HPF] Normal 0-4 [facility] Comment on above: Order Comment: Name Collection Type:: Clean-Voided Midstream Performed By: #### C BCNO, ADDONUAPLUS, PROCRERAT, PTH, RENAL, MG, URIC, [id number] ####[place] [address] [address] Erythrocyte distribution wid th [Ratio] by Automated countOrdered By: Alta Schmid on 09-12-2023 Erythrocyte distribution width (RBC) [Ratio] 15.2 % Normal 11.9-15.3 [facility] Comment on above: Performed By: #### C BCNO #### [address] Erythrocytes [#/volume] in B lood by Automated countOrdered By: Alta Schmid on 09-12-2023 RBC (Bld) [#/Vol] 4.96 10*6/uL Normal 3.60-5.00 [facility] Comment on above: Performed By: #### C BCNO #### [facility] [address] Glucose [Mass/volume] in Ser um or PlasmaOrdered By: Alta Schmid on 09-12-2023 Glucose [Mass/Vol] 333 mg/dL High 70-100 [facility] Comment on above: ADA recommended refe rence rangeRandom Glucose Reference Range is dependent on time and content of last meal. Glucose of more than 200 mg/dL in a nonstressed, ambulatory subject supports the diagnosis of Diabetes Mellitus. Result Comment: [facility] Glucose Reference Range is dependent on time and content of last meal. Glucose of more than 200 mg/dL in a nonstressed, ambulatory subject supports the diagnosis of Diabetes Mellitus. ADA recommended reference range Performed By: #### C BCNO, ADDONUAPLUS, PROCRERAT, PTH, RENAL, MG, URIC, [id number] ####[facility] Hematocrit [Volume Fraction] of Blood by Automated countOrdered By: Alta Schmid on 09-12-2023 Hematocrit (Bld) [Volume fraction] 43.7 % Normal 34.0-46.4 [facility] Comment on above: Performed By: #### C BCNO #### [address] Hemoglobin [Mass/volume] in BloodOrdered By: Alta Schmid on 09-12-2023 Hemoglobin (Bld) [Mass/Vol] 15.0 g/dL Normal 11.8-15.4 [facility] Comment on above: Performed By: #### C BCNO #### [address] Hemogram CBC Without Diffon 09-12-2023 Mean Corpuscular HGB Conc 34.4 g/dL Normal 32.0-35.0 [facility] Comment on above: Performed By: #### C BCNO #### [address] WBC (Bld) [#/Vol] 13.1 10*3/uL High 3.8-11.6 [facility] Comment on above: Performed By: #### C BCNO #### [address] Ketones Auto test strip (U) [Mass/Vol]Ordered By: Alta Schmid on 09-12-2023 Ketones (U) [Mass/Vol] Negative Negative [facility] - UrinalysisOrder ed By: Alta Schmid on 09-12-2023 Hyaline casts LM Ql (Urine sed) None seen [LPF] 0-8 [facility] Leukocytes [#/volume] correc janet for nucleated erythrocytes in Blood by Automated counOrdered By: Alta Schmid on 09-12-2023 WBC corrected for nucl RBC Auto (Bld) [#/Vol] 13.1 10*3/uL 3.8-11.6 [facility] MCH [Entitic mass] by Automa janet countOrdered By: Alta Schmid on 09-12-2023 MCH (RBC) [Entitic mass] 30.3 pg Normal 24.7-34.3 [facility] Comment on above: Performed By: #### C BCNO #### [facility] [address] MCHC Auto (RBC) [Mass/Vol]Or dered By: Alta Schmid on 09-12-2023 MCHC (RBC) [Mass/Vol] 34.4 g/dL 32.0-35.[address] [facility] MCV [Entitic volume] by Auto mated countOrdered By: Alta Schmid on 09-12-2023 MCV (RBC) [Entitic vol] 88.2 fL Normal 80-100 [facility] Comment on above: Performed By: #### C BCNO #### [facility] [address] Magnesium [Mass/volume] in S carlos or PlasmaOrdered By: Alta Schmid on 09-12-2023 Magnesium [Mass/Vol] 1.4 mg/dL Low 1.9-2.7 [facility] Comment on above: Performed By: #### C BCNO, ADDONUAPLUS, PROCRERAT, PTH, RENAL, MG, URIC, [id number] ####[facility] [id number] Nitrite Test strip Ql (U)Ord ered By: Alta Schmid on 09-12-2023 Nitrite Ql (U) Negative Negative [facility] No Panel InformationOrdered By: Alta Schmid on 09-12-2023 Estimated GFR (CKD-EPI) 40.884 mL/Min [facility] Creatinine Clearance (Chem N/A [facility] Parathyrin.intact [Mass/volu me] in Serum or PlasmaOrdered By: Alta Schmid on 09-12-2023 Parathyrin.intact [Mass/Vol] 63.3 pg/mL [facility] Parathyroid Hormone Intacton 09-12-2023 Parathyroid Hormone Intact 63.3 pg/mL Normal [facility] Comment on above: Result Comment: PERF ORMED BY: [place] [address] PATHOLOGIST TECHNICAL ASSOCIATE SHANTE LOMBARDI M.D. Performed By: #### C BCNO, ADDONUAPLUS, PROCRERAT, PTH, RENAL, MG, URIC, [id number] ####[facility] [id number] [place] [id number] [facility] Phosphate [Mass/volume] in S carlos or PlasmaOrdered By: Alta Schmid on 09-12-2023 Phosphate [Mass/Vol] 3.6 mg/dL Normal 2.5-4.5 [facility] Comment on above: Performed By: #### C BCNO, ADDONUAPLUS, PROCRERAT, PTH, RENAL, MG, URIC, [id number] ####[facility] [id number] [place], [place] [id number] [facility] Platelet mean volume [Entiti c volume] in Blood by Automated countOrdered By: Alta Schmid on 09-12-2023 Platelet mean volume (Bld) [Entitic vol] 8.7 fL Normal 6.3-10.7 [facility] Comment on above: Result Comment: PERF ORMED BY: [facility] [address] [facility] [place] [address] PATHOLOGIST TECHNICAL ASSOCIATE SHANTE LOMBARDI M.D. Performed By: #### C BCNO #### [facility] [address] [place], [place] [id number] [facility] Platelets [#/volume] in Bloo d by Automated countOrdered By: Alta Schmid on 09-12-2023 Platelets (Bld) [#/Vol] 263 10*3/uL Normal 150-450 [facility] Comment on above: Performed By: #### C BCNO #### [facility] [address] [place] [address] [facility] Potassium [Moles/volume] in Serum or PlasmaOrdered By: Alta Schmid on 09-12-2023 Potassium [Moles/Vol] 4.5 mmol/L Normal 3.5-5.[address] [facility] Comment on above: Performed By: #### C BCNO, ADDONUAPLUS, PROCRERAT, PTH, RENAL, MG, URIC, [id number] ####[facility] [place] [id number] [facility] Protein Creat Ratio Ur Rando mon 09-12-2023 Creatinine, Urine (Random) 59.0 mg/dL Normal [facility] Comment on above: Result Comment: No r eference range established Performed By: #### C BCNO, ADDONUAPLUS, PROCRERAT, PTH, RENAL, MG, URIC, [id number] ####[place] [address] [place] [phone] [facility] Urine Protein/Creatinine Ratio 797 mg/g{Cre} High 0-200 [facility] Comment on above: Result Comment: PERF ORMED BY: [place] [address] PATHOLOGIST TECHNICAL ASSOCIATE SHANTE LOMBARDI M.D. Performed By: #### C BCNO, ADDONUAPLUS, PROCRERAT, PTH, RENAL, MG, URIC, [id number] ####[place] [phone] [facility] Protein [Mass/volume] in Uri neOrdered By: Alta Schmid on 09-12-2023 Protein (U) [Mass/Vol] 47 mg/dL High 0-9 [facility] Comment on above: Performed By: #### C BCNO, ADDONUAPLUS, PROCRERAT, PTH, RENAL, MG, URIC, [id number] ####[address] [place] [address] [facility] Renal Function Panelon 09-11 Albumin [Mass/Vol] 3.9 g/dL Normal 3.5-5.7 [facility] Comment on above: Performed By: #### C BCNO, ADDONUAPLUS, PROCRERAT, PTH, RENAL, MG, URIC, [id number] ####[address] [place] [id number] [facility] GFR/1.73 sq M.predicted MDRD (S/P/Bld) [Vol rate/Area] 40.884 mL/min/{1.73_m2} Normal [facility] Comment on above: Performed By: #### C BCNO, ADDONUAPLUS, PROCRERAT, PTH, RENAL, MG, URIC, [id number] ####[place] [id number] Serum or plasma anion gap de terminationOrdered By: Alta Schmid on 09-12-2023 Anion gap [Moles/Vol] 12.5 mmol/L Normal 6.0-15.0 [facility] Comment on above: Performed By: #### C BCNO, ADDONUAPLUS, PROCRERAT, PTH, RENAL, MG, URIC, [id number] ####[address] Sodium [Moles/volume] in Ser um or PlasmaOrdered By: Alta Schmid on 09-12-2023 Sodium [Moles/Vol] 135 mmol/L Low 136-145 [facility] Comment on above: Performed By: #### C BCNO, ADDONUAPLUS, PROCRERAT, PTH, RENAL, MG, URIC, [id number] ####[place] [id number] [facility] Specific gravity Auto test s trip (U) [Rel density]Ordered By: Alta Schmid on 09-12-2023 Specific gravity (U) [Rel density] 1.014 1.001-1.030 [facility] Squamous epithelial cells de tection in urine sediment by light microscopyOrdered By: Alta Schmid on 09-12-2023 Epithelial cells.squamous LM Ql (Urine sed) 1-2 [HPF] 0-2 [facility] Urate [Mass/volume] in Serum or PlasmaOrdered By: Alta Schmid on 09-12-2023 Urate [Mass/Vol] 7.9 mg/dL High 2.3-6.6 [facility] Comment on above: Performed By: #### C BCNO, ADDONUAPLUS, PROCRERAT, PTH, RENAL, MG, URIC, [id number] ####[address] [address] Urea nitrogen [Mass/volume] in Serum or PlasmaOrdered By: Alta Schmid on 09-12-2023 Urea nitrogen [Mass/Vol] 32 mg/dL High 7-25 [facility] Comment on above: Performed By: #### C BCNO, ADDONUAPLUS, PROCRERAT, PTH, RENAL, MG, URIC, [id number] ####[address] [address] [id number] Urine bacteria detection by automated methodOrdered By: Alta Schmid on 09-12-2023 Bacteria Auto Ql (U) None seen [HPF] None Seen [facility] Urine clarity by refractomet ry automatedOrdered By: Alta Schmid on 09-12-2023 Clarity Refractometry automated (U) Clear Clear [facility] Urine glucose measurement by automated test strip (mass/volume)Ordered By: Alta Schmid on 09-12-2023 Glucose Auto test strip (U) [Mass/Vol] 250 mg/dL Normal [facility] Urine hemoglobin detection b y automated test stripOrdered By: Alta Schmid on 09-12-2023 Hemoglobin Auto test strip Ql (U) Negative Negative [facility] Urine leukocyte esterase det ection by automated test stripOrdered By: Alta Schmid on 09-12-2023 Leukocyte esterase Auto test strip Ql (U) Negative Negative [facility] Urine pH measurement by auto mated test stripOrdered By: Alta Schmid on 09-12-2023 pH (U) 5.5 [pH] Normal 5.0-9.0 [facility] Comment on above: Order Comment: Name Collection Type:: Clean-Voided Midstream Performed By: #### C BCNO, ADDONUAPLUS, PROCRERAT, PTH, RENAL, MG, URIC, [id number] ####[facility] [place] [address] [facility] Urine protein measurement by automated test strip (mass/volume)Ordered By: Alta Schmid on 09-12-2023 Protein (U) [Mass/Vol] 30 mg/dL High Negative [facility] Comment on above: Order Comment: Name Collection Type:: Clean-Voided Midstream Performed By: #### C BCNO, ADDONUAPLUS, PROCRERAT, PTH, RENAL, MG, URIC, [id number] ####[facility] [place] [address] [facility] Urine protein/creatinine rat ioOrdered By: Alta Schmid on 09-12-2023 Protein/Creatinine (U) [Ratio] 797 mg/g{Cre} 0-200 [facility] Urobilinogen Auto test strip (U) [Mass/Vol]Ordered By: Alta Schmid on 09-12-2023 Urobilinogen (U) [Mass/Vol] Normal mg/dL Normal [facility] Vitamin D 25 Hydroxy Totalon 09-12-2023 Vitamin D 25 Hydroxy Total 53.3 ng/mL Normal 30-100 [facility] Comment on above: Result Comment: DEBORAH MIN D STATUS 25([place])VITAMIN D RANGE (ng/mL) Deficient <20 Insufficient 20 to <30 Sufficient 30 to 100 Reference: Raven MF,Isai NC, Randa WALSH, et al. Evaluation,treatment, and prevention of vitamin D deficiency; an Endocrine Society clinical practice guideline. JCEM. 2010; 96(7):1911-30. PERFORMED BY: [facility] [address] [place] [address] PATHOLOGIST TECHNICAL ASSOCIATE SHANTE LOMBARDI M.D. Performed By: #### C BCNO, ADDONUAPLUS, PROCRERAT, PTH, RENAL, MG, URIC, [id number] ####[facility] [place] [address] [facility] Vitamin D+Metabolites [Mass/ volume] in Serum or PlasmaOrdered By: Alta Schmid on 09-12-2023 Vitamin D+Metabolites [Mass/Vol] 53.3 ng/mL 30-100 [facility] Comment on above: VITAMIN D STATUS 25( [place])VITAMIN D RANGE (ng/mL) Deficient <20 Insufficient 20 to <30Sufficient 30 to 100Reference: Raven MF,Isai NC, Randa WALSH, et al. Evaluation,treatment, and prevention of vitamin D deficiency; an Endocrine Society clinical practice guideline. JCEM. 2010; 96(7):1911-30. Albumin [Mass/volume] in Ser um or Plasma by Bromocresol green (BCG) dye binding methoOrdered By: Alta Schmid on 07-31-2023 Albumin BCG dye [Mass/Vol] 4.0 g/dL 3.5-5.7 [facility] Automated erythrocytes count in urine sediment (number/area)Ordered By: Alta Schmid on 07-31-2023 RBC Auto (Urine sed) [#/Area] None seen [HPF] 0-4 [facility] Automated leukocytes count i n urine sediment (number/area)Ordered By: Alta Schmid on 07-31-2023 WBC Auto (Urine sed) [#/Area] 0-1 [HPF] 0-4 [facility] Automated urine color determ inationOrdered By: Alta Schmid on 07-31-2023 Color (U) Yellow Normal Yellow [facility] Comment on above: Order Comment: Lou mo for Exam Chronic kidney disease, stage III (moderate);Diabetes mellit Name Collection Type:: Clean-Voided Midstream Performed By: #### A DDONUAPLUS #### [facility] [address] [place] [address] Bilirubin Test strip Ql (U)O rdered By: Alta Schmid on 07-31-2023 Bilirubin Ql (U) Negative Negative [facility] Calcium [Mass/volume] in Ser um or PlasmaOrdered By: Alta Schmid on 07-31-2023 Calcium [Mass/Vol] 9.4 mg/dL Normal 8.6-10.3 [facility] Comment on above: Order Comment: Reaso n for Exam Chronic kidney disease, stage III (moderate);Diabetes mellit Performed By: #### U HARINDER, [id number], RENAL, MG #### [facility] [address] [place] [address] [place] Carbon dioxide, total [Moles /volume] in Serum or PlasmaOrdered By: Alta Sharmaine on 07-31-2023 CO2 [Moles/Vol] 28.1 mmol/L Normal 21.0-31.0 [facility] Comment on above: Order Comment: Reaso n for Exam Chronic kidney disease, stage III (moderate);Diabetes mellit Performed By: #### U HARINDER, [id number], RENAL, MG #### [facility] [address] [place] [address] [place] Chloride [Moles/volume] in S carlos or PlasmaOrdered By: Alta Sharmaine on 07-31-2023 Chloride [Moles/Vol] 103 mmol/L Normal 98-107 [facility] Comment on above: Order Comment: Reaso n for Exam Chronic kidney disease, stage III (moderate);Diabetes mellit Performed By: #### U HARINDER, [id number], RENAL, MG #### [facility] [address] [place] [id number] [place] Creatinine [Mass/volume] in Serum or PlasmaOrdered By: Alta Sharmaine on 07-31-2023 Creatinine [Mass/Vol] 1.49 mg/dL High 0.60-1.[address] [facility] Comment on above: Order Comment: Reaso n for Exam Chronic kidney disease, stage III (moderate);Diabetes mellit Performed By: #### U HARINDER, [id number], RENAL, MG #### [facility] [address] [place] [id number] [place] Creatinine [Mass/volume] in UrineOrdered By: Alta Sharmaine on 07-31-2023 Creatinine (U) [Mass/Vol] 64.0 mg/dL [facility] Comment on above: No reference range e stablished Dipstick and Microscopicon 0 07-31-2023 Appearance (U) Clear Normal Clear [facility] Comment on above: Order Comment: Reaso n for Exam Chronic kidney disease, stage III (moderate);Diabetes mellit Name Collection Type:: Clean-Voided Midstream Performed By: #### A DDONUAPLUS #### [place] [address] [place] Bacteria,Urine None Seen Normal None Seen [facility] Comment on above: Order Comment: Reaso n for Exam Chronic kidney disease, stage III (moderate);Diabetes mellit Name Collection Type:: Clean-Voided Midstream Performed By: #### A DDONUAPLUS #### [place] [address] [place] Bilirubin,Urine Negative Normal Negative [facility] Comment on above: Order Comment: Reaso n for Exam Chronic kidney disease, stage III (moderate);Diabetes mellit Name Collection Type:: Clean-Voided Midstream Performed By: #### A DDONUAPLUS #### [address] Glucose Ql (U) Normal Normal Normal [facility] Comment on above: Order Comment: Reaso n for Exam Chronic kidney disease, stage III (moderate);Diabetes mellit Name Collection Type:: Clean-Voided Midstream Performed By: #### A DDONUAPLUS #### [place] [address] [place] Hyaline Casts,Urine 0-8 Normal 0-8 [facility] Comment on above: Order Comment: Reaso n for Exam Chronic kidney disease, stage III (moderate);Diabetes mellit Name Collection Type:: Clean-Voided Midstream Result Comment: PERF ORMED BY: [place] [address] PATHOLOGIST TECHNICAL ASSOCIATE SHANTE LOMBARDI M.D. Performed By: #### A DDONUAPLUS #### [place] [address] [place] Ketones Ql (U) Negative Normal Negative [facility] Comment on above: Order Comment: Reaso n for Exam Chronic kidney disease, stage III (moderate);Diabetes mellit Name Collection Type:: Clean-Voided Midstream Performed By: #### A DDONUAPLUS #### [address] Leukocyte esterase Test strip Ql (U) Negative Normal Negative [facility] Comment on above: Order Comment: Reaso n for Exam Chronic kidney disease, stage III (moderate);Diabetes mellit Name Collection Type:: Clean-Voided Midstream Performed By: #### A DDONUAPLUS #### [place] [address] [place] Nitrite,Urine Negative Normal Negative [facility] Comment on above: Order Comment: Reaso n for Exam Chronic kidney disease, stage III (moderate);Diabetes mellit Name Collection Type:: Clean-Voided Midstream Performed By: #### A DDONUAPLUS #### [address] Occult Blood,Urine Negative Normal Negative [facility] Comment on above: Order Comment: Reaso n for Exam Chronic kidney disease, stage III (moderate);Diabetes mellit Name Collection Type:: Clean-Voided Midstream Performed By: #### A DDONUAPLUS #### [place] [address] [place] Protein,Urine Negative Normal Negative [facility] Comment on above: Order Comment: Reaso n for Exam Chronic kidney disease, stage III (moderate);Diabetes mellit Name Collection Type:: Clean-Voided Midstream Performed By: #### A DDONUAPLUS #### [place] [address] [place] RBC,Urine None Seen Normal 0-4 [facility] Comment on above: Order Comment: Reaso n for Exam Chronic kidney disease, stage III (moderate);Diabetes mellit Name Collection Type:: Clean-Voided Midstream Performed By: #### A DDONUAPLUS #### [place] [address] [place] Specificy [place],Urine 1.012 Normal 1.001-1.030 [facility] Comment on above: Order Comment: Reaso n for Exam Chronic kidney disease, stage III (moderate);Diabetes mellit Name Collection Type:: Clean-Voided Midstream Performed By: #### A DDONUAPLUS #### [address] Squamous Epithelial Cell,Urine 0-1 Normal 0-2 [facility] Comment on above: Order Comment: Reaso n for Exam Chronic kidney disease, stage III (moderate);Diabetes mellit Name Collection Type:: Clean-Voided Midstream Performed By: #### A DDONUAPLUS #### [address] Urobilinogen,Urine Normal Normal Normal [facility] Comment on above: Order Comment: Reaso n for Exam Chronic kidney disease, stage III (moderate);Diabetes mellit Name Collection Type:: Clean-Voided Midstream Performed By: #### A DDONUAPLUS #### [address] WBC LM.HPF (Urine sed) [#/Area] 0 /[HPF] Normal 0-4 [facility] Comment on above: Order Comment: Reaso n for Exam Chronic kidney disease, stage III (moderate);Diabetes mellit Name Collection Type:: Clean-Voided Midstream Performed By: #### A DDONUAPLUS #### [address] Erythrocyte distribution wid th [Ratio] by Automated countOrdered By: Alta Fletcherr on 07-31-2023 Erythrocyte distribution width (RBC) [Ratio] 15.4 % High 11.9-15.3 [facility] Comment on above: Order Comment: Reaso n for Exam Chronic kidney disease, stage III (moderate);Diabetes mellit Performed By: #### C BCNO #### [address] Erythrocytes [#/volume] in B lood by Automated countOrdered By: Alta Sharmaine on 07-31-2023 RBC (Bld) [#/Vol] 4.80 10*6/uL Normal 3.60-5.00 [facility] Comment on above: Order Comment: Reaso n for Exam Chronic kidney disease, stage III (moderate);Diabetes mellit Performed By: #### C BCNO #### [facility] [address] [place] [id number] [facility] Glucose [Mass/volume] in Ser um or PlasmaOrdered By: Alta Schmid on 07-31-2023 Glucose [Mass/Vol] 235 mg/dL High 70-100 [facility] Comment on above: ADA recommended refe rence rangeRandom Glucose Reference Range is dependent on time and content of last meal. Glucose of more than 200 mg/dL in a nonstressed, ambulatory subject supports the diagnosis of Diabetes Mellitus. Order Comment: Reaso n for Exam Chronic kidney disease, stage III (moderate);Diabetes mellit Result Comment: [facility] om Glucose Reference Range is dependent on time and content of last meal. Glucose of more than 200 mg/dL in a nonstressed, ambulatory subject supports the diagnosis of Diabetes Mellitus. ADA recommended reference range Performed By: #### U HARINDER, [id number], RENAL, MG #### [address] Hematocrit [Volume Fraction] of Blood by Automated countOrdered By: Alta Schmid on 07-31-2023 Hematocrit (Bld) [Volume fraction] 42.7 % Normal 34.0-46.4 [facility] Comment on above: Order Comment: Reaso n for Exam Chronic kidney disease, stage III (moderate);Diabetes mellit Performed By: #### C BCNO #### [place] [id number] [facility] Hemoglobin [Mass/volume] in BloodOrdered By: Alta Schmid on 07-31-2023 Hemoglobin (Bld) [Mass/Vol] 14.4 g/dL Normal 11.8-15.4 [facility] Comment on above: Order Comment: Reaso n for Exam Chronic kidney disease, stage III (moderate);Diabetes mellit Performed By: #### C BCNO #### [address] Hemogram CBC Without Diffon 07-31-2023 Mean Corpuscular HGB Conc 33.6 g/dL Normal 32.0-35.0 [facility] Comment on above: Order Comment: Reaso n for Exam Chronic kidney disease, stage III (moderate);Diabetes mellit Performed By: #### C BCNO #### [facility] [address] WBC (Bld) [#/Vol] 12.8 10*3/uL High 3.8-11.6 [facility] Comment on above: Order Comment: Reaso n for Exam Chronic kidney disease, stage III (moderate);Diabetes mellit Performed By: #### C BCNO #### [facility] [address] [place] [address] Ketones Auto test strip (U) [Mass/Vol]Ordered By: Alta Schmid on 07-31-2023 Ketones (U) [Mass/Vol] Negative Negative [facility] Laboratory - UrinalysisOrder ed By: Alta Schmid on 07-31-2023 Hyaline casts LM Ql (Urine sed) 0-8 [LPF] 0-8 [facility] Leukocytes [#/volume] correc janet for nucleated erythrocytes in Blood by Automated counOrdered By: Alta Schmid on 07-31-2023 WBC corrected for nucl RBC Auto (Bld) [#/Vol] 12.8 10*3/uL 3.8-11.6 [facility] MCH [Entitic mass] by Automa janet countOrdered By: Alta Schmid on 07-31-2023 MCH (RBC) [Entitic mass] 29.9 pg Normal 24.7-34.3 [facility] Comment on above: Order Comment: Reaso n for Exam Chronic kidney disease, stage III (moderate);Diabetes mellit Performed By: #### C BCNO #### [facility] [address] [place] [address] MCHC Auto (RBC) [Mass/Vol]Or dered By: Alta Schmid on 07-31-2023 MCHC (RBC) [Mass/Vol] 33.6 g/dL 32.0-35.[address] [facility] MCV [Entitic volume] by Auto mated countOrdered By: Alta Schmid on 07-31-2023 MCV (RBC) [Entitic vol] 89.0 fL Normal 80-100 [facility] Comment on above: Order Comment: Reaso n for Exam Chronic kidney disease, stage III (moderate);Diabetes mellit Performed By: #### C BCNO #### [facility] [address] [place] [id number] [place] Magnesium [Mass/volume] in S carlos or PlasmaOrdered By: Alta Schmid on 07-31-2023 Magnesium [Mass/Vol] 1.3 mg/dL Low 1.9-2.7 [facility] Comment on above: Order Comment: Reaso n for Exam Chronic kidney disease, stage III (moderate);Diabetes mellit Performed By: #### U HARINDER, [id number], RENAL, MG #### [facility] [address] Nitrite Test strip Ql (U)Ord ered By: Alta Schmid on 07-31-2023 Nitrite Ql (U) Negative Negative [facility] No Panel InformationOrdered By: Alta Schmid on 07-31-2023 Estimated GFR (CKD-EPI) 38.264 mL/Min [facility] Creatinine Clearance (Chem 38.44 [facility] Parathyrin.intact [Mass/volu me] in Serum or PlasmaOrdered By: Alta Schmid on 07-31-2023 Parathyrin.intact [Mass/Vol] 47.7 pg/mL [facility] Parathyroid Hormone Intacton 07-31-2023 Parathyroid Hormone Intact 47.7 pg/mL Normal [facility] Comment on above: Order Comment: Reaso n for Exam Chronic kidney disease, stage III (moderate);Diabetes mellit Result Comment: PERF ORMED BY: [place] [address] PATHOLOGIST TECHNICAL ASSOCIATE SHANTE LOMBARDI M.D. Performed By: #### P TH #### [facility] [address] [place], [place] [id number] [place] Phosphate [Mass/volume] in S carlos or PlasmaOrdered By: Alta Schmid on 07-31-2023 Phosphate [Mass/Vol] 3.6 mg/dL Normal 2.5-4.5 [facility] Comment on above: Order Comment: Reaso n for Exam Chronic kidney disease, stage III (moderate);Diabetes mellit Performed By: #### U HARINDER, [id number], RENAL, MG #### [address] Platelet mean volume [Entiti c volume] in Blood by Automated countOrdered By: Alta Fletcherr on 07-31-2023 Platelet mean volume (Bld) [Entitic vol] 8.3 fL Normal 6.3-10.7 [facility] Comment on above: Order Comment: Reaso n for Exam Chronic kidney disease, stage III (moderate);Diabetes mellit Result Comment: PERF ORMED BY: [place] [address] PATHOLOGIST TECHNICAL ASSOCIATE SHANTE LOMBARDI M.D. Performed By: #### C BCNO #### [address] Platelets [#/volume] in Bloo d by Automated countOrdered By: Alta Fletcherr on 07-31-2023 Platelets (Bld) [#/Vol] 270 10*3/uL Normal 150-450 [facility] Comment on above: Order Comment: Reaso n for Exam Chronic kidney disease, stage III (moderate);Diabetes mellit Performed By: #### C BCNO #### [address] Potassium [Moles/volume] in Serum or PlasmaOrdered By: Alta Schmid on 07-31-2023 Potassium [Moles/Vol] 4.7 mmol/L Normal 3.5-5.[address] [facility] Comment on above: Order Comment: Reaso n for Exam Chronic kidney disease, stage III (moderate);Diabetes mellit Performed By: #### U HARINDER, [id number], RENAL, MG #### [address] Protein Auto test strip (U) [Mass/Vol]Ordered By: Alta Schmid on 07-31-2023 Protein (U) [Mass/Vol] Negative Negative [facility] Protein Creat Ratio Ur Rando mon 07-31-2023 Creatinine, Urine (Random) 64.0 mg/dL Normal [facility] Comment on above: Order Comment: Reaso n for Exam Chronic kidney disease, stage III (moderate);Diabetes mellit Result Comment: No r eference range established Performed By: #### C BCNO #### [address] Urine Protein/Creatinine Ratio 250 mg/g{Cre} High 0-200 [facility] Comment on above: Order Comment: Reaso n for Exam Chronic kidney disease, stage III (moderate);Diabetes mellit Result Comment: PERF ORMED BY: [place] [address] PATHOLOGIST TECHNICAL ASSOCIATE SHANTE LOMBARDI M.D. Performed By: #### C BCNO #### [place] [address] [place] Protein [Mass/volume] in Uri neOrdered By: Alta Schmid on 07-31-2023 Protein (U) [Mass/Vol] 16 mg/dL High 0-9 [facility] Comment on above: Order Comment: Reaso n for Exam Chronic kidney disease, stage III (moderate);Diabetes mellit Performed By: #### C BCNO #### [address] Renal Function Panelon 07-30 Albumin [Mass/Vol] 4.0 g/dL Normal 3.5-5.7 [facility] Comment on above: Order Comment: Reaso n for Exam Chronic kidney disease, stage III (moderate);Diabetes mellit Performed By: #### U HARINDER, [id number], RENAL, MG #### [place] [address] [place] Creatinine Clr Calc Pharmacy 38.44 Normal [facility] Comment on above: Order Comment: Reaso n for Exam Chronic kidney disease, stage III (moderate);Diabetes mellit Performed By: #### U HARINDER, [id number], RENAL, MG #### [place] [address] [place] GFR/1.73 sq M.predicted MDRD (S/P/Bld) [Vol rate/Area] 38.264 mL/min/{1.73_m2} Normal [facility] Comment on above: Order Comment: Reaso n for Exam Chronic kidney disease, stage III (moderate);Diabetes mellit Performed By: #### U HARINDER, [id number], RENAL, MG #### [facility] [address] Serum or plasma anion gap de terminationOrdered By: Alta Schmid on 07-31-2023 Anion gap [Moles/Vol] 12.6 mmol/L Normal 6.0-15.0 [facility] Comment on above: Order Comment: Reaso n for Exam Chronic kidney disease, stage III (moderate);Diabetes mellit Performed By: #### U HARINDER, [id number], RENAL, MG #### [facility] [address] [place] [address] Sodium [Moles/volume] in Ser um or PlasmaOrdered By: Alta Fletcherr on 07-31-2023 Sodium [Moles/Vol] 139 mmol/L Normal 136-145 [facility] Comment on above: Order Comment: Reaso n for Exam Chronic kidney disease, stage III (moderate);Diabetes mellit Performed By: #### U HARINDER, [id number], RENAL, MG #### [facility] [address] [place] [address] Specific gravity Auto test s trip (U) [Rel density]Ordered By: Alta Schmid on 07-31-2023 Specific gravity (U) [Rel density] 1.012 1.001-1.030 [facility] Squamous epithelial cells de tection in urine sediment by light microscopyOrdered By: Alta Schmid on 07-31-2023 Epithelial cells.squamous LM Ql (Urine sed) 0-1 [HPF] 0-2 [facility] Urate [Mass/volume] in Serum or PlasmaOrdered By: Alta Fletcherr on 07-31-2023 Urate [Mass/Vol] 9.9 mg/dL High 2.3-6.6 [facility] Comment on above: Order Comment: Reaso n for Exam Chronic kidney disease, stage III (moderate);Diabetes mellit Performed By: #### U HARINDER, [id number], RENAL, MG #### [facility] [address] [place] [id number] [place] Urea nitrogen [Mass/volume] in Serum or PlasmaOrdered By: Alta Schmid on 07-31-2023 Urea nitrogen [Mass/Vol] 29 mg/dL High 7-25 [facility] Comment on above: Order Comment: Reaso n for Exam Chronic kidney disease, stage III (moderate);Diabetes mellit Performed By: #### U HARINDER, [id number], RENAL, MG #### [facility] [address] [id number] [place] Urine bacteria detection by automated methodOrdered By: Alta Schmid on 07-31-2023 Bacteria Auto Ql (U) None seen None Seen [facility] Urine clarity by refractomet ry automatedOrdered By: Alta Schmid on 07-31-2023 Clarity Refractometry automated (U) Clear Clear [facility] Urine glucose measurement by automated test strip (mass/volume)Ordered By: Alta Schmid on 07-31-2023 Glucose Auto test strip (U) [Mass/Vol] Normal mg/dL Normal [facility] Urine hemoglobin detection b y automated test stripOrdered By: Alta Schmid on 07-31-2023 Hemoglobin Auto test strip Ql (U) Negative Negative [facility] Urine leukocyte esterase det ection by automated test stripOrdered By: Alta Schmid on 07-31-2023 Leukocyte esterase Auto test strip Ql (U) Negative Negative [facility] Urine pH measurement by auto mated test stripOrdered By: Alta Schmid on 07-31-2023 pH (U) 6.0 [pH] Normal 5.0-9.0 [facility] Comment on above: Order Comment: Reaso n for Exam Chronic kidney disease, stage III (moderate);Diabetes mellit Name Collection Type:: Clean-Voided Midstream Performed By: #### A DDONUAPLUS #### [facility] [address] [place] [address] [place] Urine protein/creatinine rat ioOrdered By: Alta Schmid on 07-31-2023 Protein/Creatinine (U) [Ratio] 250 mg/g{Cre} 0-200 [facility] Urobilinogen Auto test strip (U) [Mass/Vol]Ordered By: Alta Schmid on 07-31-2023 Urobilinogen (U) [Mass/Vol] Normal mg/dL Normal [facility] Vitamin D 25 Hydroxy Totalon 07-31-2023 Vitamin D 25 Hydroxy Total 41.8 ng/mL Normal 30-100 [facility] Comment on above: [...] practice guideline. JCEM. 2010; 96(7):1911-30. PERFORMED BY: [place] [address] PATHOLOGIST TECHNICAL ASSOCIATE SHANTE LOMBARDI M.D. Performed By: #### U HARINDER, [id number], RENAL, MG #### [address] Vitamin D+Metabolites [Mass/ volume] in Serum or PlasmaOrdered By: Alta Schmid on 07-31-2023 Vitamin D+Metabolites [Mass/Vol] 41.8 ng/mL 30-100 [facility] Comment on above: VITAMIN D STATUS 25( [place])VITAMIN D RANGE (ng/mL) Deficient <20 Insufficient 20 to <30Sufficient 30 to 100Reference: Isai Rich, Randa WALSH, et al. Evaluation,treatment, and prevention of vitamin D deficiency; an Endocrine Society clinical practice guideline. JCEM. 2010; 96(7):1911-30. MM screening mammo BI w/CADo n 07-03-2023 MM screening mammo BI w/CAD [facility] [address] [place] [address] Mammography Report Signed Patient: Vidhya Ibarra MR#: [id number] : 1955 Acct:[id number] Age/Sex: 67 / F ADM Date: 07/03/23 Loc: XT Room: Type: [facility] Attending Dr: Yakelin Staley WAGON WINDER Copies to: MD Yakelin Kahn APRN MD Shaikh Jeison Vincent MD Ordering Provider: Rebeca Ashraf MD Date [...] Daniels Jr., D.OLois07/03/2023 3:30 PM Dictation Location: [facility] Transcribed By: [facility] 07/03/23 1530 Dictated By: Stevan Daniels Jr, DO 07/03/23 1529 Signed By: 07/03/23 1530 Normal [facility] Automated basophil %Ordered By: Yakelin Staley on 06-22-2023 Basophils/100 WBC (Bld) 0.8 % Normal . [facility] Comment on above: Performed By: #### C BC #### [address] Automated basophil countOrde red By: Yakelin Staley on 06-22-2023 Basophils (Bld) [#/Vol] 0.1 10*3/uL Normal 0.0-0.2 [facility] Comment on above: Result Comment: PERF ORMED BY: [place] [address] PATHOLOGIST TECHNICAL ASSOCIATE SHANTE LOMBARDI M.D. Performed By: #### C BC #### [address] Automated blood monocyte cou ntOrdered By: Yakelin Staley on 06-22-2023 Monocytes (Bld) [#/Vol] 0.7 10*3/uL Normal 0.0-0.8 [facility] Comment on above: Performed By: #### C BC #### [address] Automated eosinophil %Ordere d By: Yakelin Staley on 06-22-2023 Eosinophils/100 WBC (Bld) 1.7 % Normal . [facility] Comment on above: Performed By: #### C BC #### [address] Automated eosinophil countOr dered By: Yakelin Staley on 06-22-2023 Eosinophils (Bld) [#/Vol] 0.2 10*3/uL Normal 0.0-0.45 [facility] Comment on above: Performed By: #### C BC #### [address] Automated monocyte %Ordered By: Yakelin Staley on 06-22-2023 Monocytes/100 WBC (Bld) 5.2 % Normal . [facility] Comment on above: Performed By: #### C BC #### [address] Automated neutrophil %Ordere d By: Yakelin Staley on 06-22-2023 Neutrophils/100 WBC (Bld) 74.3 % Normal . [facility] Comment on above: Performed By: #### C BC #### [address] Complete Blood Count Auto Di ffon 06-22-2023 Mean Corpuscular HGB Conc 33.9 g/dL Normal 32.0-35.0 [facility] Comment on above: Performed By: #### C BC #### [address] NRBC% 0.1 /100{WBC} Normal 0-0.5 [facility] Comment on above: Performed By: #### C BC #### [address] Erythrocyte distribution wid th [Ratio] by Automated countOrdered By: Yakelin Rebeka on 06-22-2023 Erythrocyte distribution width (RBC) [Ratio] 15.0 % Normal 11.9-15.3 [facility] Comment on above: Performed By: #### C BC #### [address] Erythrocytes [#/volume] in B lood by Automated countOrdered By: Yakelin Rebeka on 06-22-2023 RBC (Bld) [#/Vol] 4.77 10*6/uL Normal 3.60-5.00 [facility] Comment on above: Performed By: #### C BC #### [address] Hematocrit [Volume Fraction] of Blood by Automated countOrdered By: Yakelin Staley on 06-22-2023 Hematocrit (Bld) [Volume fraction] 42.7 % Normal 34.0-46.4 [facility] Comment on above: Performed By: #### C BC #### [address] Hemoglobin [Mass/volume] in BloodOrdered By: Yakelin Rebeka on 06-22-2023 Hemoglobin (Bld) [Mass/Vol] 14.5 g/dL Normal 11.8-15.4 [facility] Comment on above: Performed By: #### C BC #### [address] [place] [id number] [place] Leukocytes [#/volume] correc janet for nucleated erythrocytes in Blood by Automated counOrdered By: Yakelin Rebeka on 06-22-2023 WBC corrected for nucl RBC Auto (Bld) [#/Vol] 14.3 10*3/uL 3.8-11.6 [facility] Leukocytes [#/volume] in Blo od by Automated countOrdered By: Yakelin Rebeka on 06-22-2023 WBC (Bld) [#/Vol] 14.3 10*3/uL High 3.8-11.6 [facility] Comment on above: Performed By: #### C BC #### [address] Lymphocytes [#/volume] in Bl ood by Automated countOrdered By: Yakelin Rebeka on 06-22-2023 Lymphocytes (Bld) [#/Vol] 2.6 10*3/uL Normal 1.00-4.8 [facility] Comment on above: Performed By: #### C BC #### [address] Lymphocytes/100 leukocytes i n Blood by Automated countOrdered By: Yakelin Rebeka on 06-22-2023 Lymphocytes/100 WBC (Bld) 18.0 % Normal . [facility] Comment on above: Performed By: #### C BC #### [address] MCH [Entitic mass] by Automa janet countOrdered By: Yakelin Rebeka on 06-22-2023 MCH (RBC) [Entitic mass] 30.3 pg Normal 24.7-34.3 [facility] Comment on above: Performed By: #### C BC #### [address] MCHC Auto (RBC) [Mass/Vol]Or dered By: Yakelin Rebeka on 06-22-2023 MCHC (RBC) [Mass/Vol] 33.9 g/dL 32.0-35.[address] [facility] MCV [Entitic volume] by Auto mated countOrdered By: Yakelin Staley on 06-22-2023 MCV (RBC) [Entitic vol] 89.4 fL Normal 80-100 [facility] Comment on above: Performed By: #### C BC #### [address] Neutrophils [#/volume] in Bl ood by Automated countOrdered By: Yakelin Staley on 06-22-2023 Neutrophils (Bld) [#/Vol] 10.6 10*3/uL High 1.8-7.7 [facility] Comment on above: Performed By: #### C BC #### [address] Nucleated erythrocytes [Pres ence] in Blood by Automated countOrdered By: Yakelin Staley on 06-22-2023 Nucleated RBC Auto Ql (Bld) 0.1 /100{WBC} 0-0.5 [facility] Platelet mean volume [Entiti c volume] in Blood by Automated countOrdered By: Yakelin Staley on 06-22-2023 Platelet mean volume (Bld) [Entitic vol] 8.3 fL Normal 6.3-10.7 [facility] Comment on above: Performed By: #### C BC #### [address] Platelets [#/volume] in Bloo d by Automated countOrdered By: Yakelin Staley on 06-22-2023 Platelets (Bld) [#/Vol] 262 10*3/uL Normal 150-450 [facility] Comment on above: Performed By: #### C BC #### [address] Complete Blood Count Auto Di ffon 03-24-2023 Basophils (Bld) [#/Vol] 0.1 10*3/uL Normal 0.0-0.2 [facility] Comment on above: Result Comment: PERF ORMED BY: [place] [address] PATHOLOGIST TECHNICAL ASSOCIATE SHANTE LOMBARDI M.D. Performed By: #### C BC #### [address] Basophils/100 WBC (Bld) 0.7 % Normal . [facility] Comment on above: Performed By: #### C BC #### [address] Eosinophils (Bld) [#/Vol] 0.4 10*3/uL Normal 0.0-0.45 [facility] Comment on above: Performed By: #### C BC #### [address] Eosinophils/100 WBC (Bld) 2.2 % Normal . [facility] Comment on above: Performed By: #### C BC #### [address] Erythrocyte distribution width (RBC) [Ratio] 14.4 % Normal 11.9-15.3 [facility] Comment on above: Performed By: #### C BC #### [address] Hematocrit (Bld) [Volume fraction] 42.6 % Normal 34.0-46.4 [facility] Comment on above: Performed By: #### C BC #### [address] Hemoglobin (Bld) [Mass/Vol] 14.2 g/dL Normal 11.8-15.4 [facility] Comment on above: Performed By: #### C BC #### [address] Lymphocytes (Bld) [#/Vol] 2.9 10*3/uL Normal 1.00-4.8 [facility] Comment on above: Performed By: #### C BC #### [address] Lymphocytes/100 WBC (Bld) 17.3 % Normal . [facility] Comment on above: Performed By: #### C BC #### [address] MCH (RBC) [Entitic mass] 30.2 pg Normal 24.7-34.3 [facility] Comment on above: Performed By: #### C BC #### [facility] [address] MCV (RBC) [Entitic vol] 90.7 fL Normal 80-100 [facility] Comment on above: Performed By: #### C BC #### [facility] [address] Mean Corpuscular HGB Conc 33.3 g/dL Normal 32.0-35.0 [facility] Comment on above: Performed By: #### C BC #### [facility] [address] Monocytes (Bld) [#/Vol] 1.1 10*3/uL High 0.0-0.8 [facility] Comment on above: Performed By: #### C BC #### [address] Monocytes/100 WBC (Bld) 6.4 % Normal . [facility] Comment on above: Performed By: #### C BC #### [facility] [address] Neutrophils (Bld) [#/Vol] 12.2 10*3/uL High 1.8-7.7 [facility] Comment on above: Performed By: #### C BC #### [facility] [address] Neutrophils/100 WBC (Bld) 73.4 % Normal . [facility] Comment on above: Performed By: #### C BC #### [address] NRBC% 0.1 /100{WBC} Normal 0-0.5 [facility] Comment on above: Performed By: #### C BC #### [address] Platelet mean volume (Bld) [Entitic vol] 8.5 fL Normal 6.3-10.7 [facility] Comment on above: Performed By: #### C BC #### [facility] [address] Platelets (Bld) [#/Vol] 302 10*3/uL Normal 150-450 [facility] Comment on above: Performed By: #### C BC #### [facility] [address] RBC (Bld) [#/Vol] 4.70 10*6/uL Normal 3.60-5.00 [facility] Comment on above: Performed By: #### C BC #### [facility] [address] WBC (Bld) [#/Vol] 16.7 10*3/uL High 3.8-11.6 [facility] Comment on above: Performed By: #### C BC #### [facility] [address] Albumin [Mass/volume] in Ser um or Plasma by Bromocresol green (BCG) dye binding methoOrdered By: Alta Schmid on 03-04-2023 Albumin BCG dye [Mass/Vol] 4.1 g/dL 3.5-5.7 [facility] Automated erythrocytes count in urine sediment (number/area)Ordered By: Alta Schmid on 03-04-2023 RBC Auto (Urine sed) [#/Area] 0-1 [HPF] 0-4 [facility] Automated leukocytes count i n urine sediment (number/area)Ordered By: Alta Schmid on 03-04-2023 WBC Auto (Urine sed) [#/Area] 5-9 [HPF] 0-4 [facility] Bilirubin Test strip Ql (U)O rdered By: Alta Schmid on 03-04-2023 Bilirubin Ql (U) Negative Negative [facility] Calcium [Mass/volume] in Ser um or PlasmaOrdered By: Alta Schmid on 03-04-2023 Calcium [Mass/Vol] 9.2 mg/dL 8.6-10.3 [facility] Carbon dioxide, total [Moles /volume] in Serum or PlasmaOrdered By: Alta Schmid on 03-04-2023 CO2 [Moles/Vol] 25.4 mmol/L 21.0-31.0 [facility] Chloride [Moles/volume] in S carlos or PlasmaOrdered By: Alta Schmid on 03-04-2023 Chloride [Moles/Vol] 104 mmol/L 98-107 [facility] Color Auto (U)Ordered By: Ab richard Schmid on 03-04-2023 Color (U) Yellow Yellow [facility] Creatinine [Mass/volume] in Serum or PlasmaOrdered By: Alta Schmid on 03-04-2023 Creatinine [Mass/Vol] 1.59 mg/dL 0.60-1.20 [facility] Creatinine [Mass/volume] in UrineOrdered By: Alta Schmid on 03-04-2023 Creatinine (U) [Mass/Vol] 100.0 mg/dL 11.0-20.0 [facility] Erythrocyte distribution wid th Auto (RBC) [Ratio]Ordered By: Alta Schmid on 03-04-2023 Erythrocyte distribution width (RBC) [Ratio] 14.8 % 11.9-15.3 [facility] Glucose [Mass/volume] in Ser um or PlasmaOrdered By: Alta Schmid on 03-04-2023 Glucose [Mass/Vol] 232 mg/dL 70-100 [facility] Comment on above: ADA recommended refe rence rangeRandom Glucose Reference Range is dependent on time and content of last meal. Glucose of more than 200 mg/dL in a nonstressed, ambulatory subject supports the diagnosis of Diabetes Mellitus. Hematocrit Auto (Bld) [Volum e fraction]Ordered By: Alta Schmid on 03-04-2023 Hematocrit (Bld) [Volume fraction] 42.6 % 34.0-46.4 [facility] Hemoglobin [Mass/volume] in BloodOrdered By: Alta Schmid 03-04-2023 Hemoglobin (Bld) [Mass/Vol] 14.5 g/dL 11.8-15.4 [facility] Ketones Auto test strip (U) [Mass/Vol]Ordered By: Alta Schmid on 03-04-2023 Ketones (U) [Mass/Vol] Negative Negative [facility] - UrinalysisOrder ed By: Alta Schmid on 03-04-2023 Hyaline casts LM Ql (Urine sed) 0-8 [LPF] 0-8 [facility] Leukocytes [#/volume] correc janet for nucleated erythrocytes in Blood by Automated counOrdered By: Alta Schmid on 03-04-2023 WBC corrected for nucl RBC Auto (Bld) [#/Vol] 16.2 10*3/uL 3.8-11.6 [facility] MCH Auto (RBC) [Entitic mass ]Ordered By: Alta Schmid on 03-04-2023 MCH (RBC) [Entitic mass] 31.1 pg 24.7-34.3 [facility] MCHC Auto (RBC) [Mass/Vol]Or dered By: Alta Schmid on 03-04-2023 MCHC (RBC) [Mass/Vol] 34.0 g/dL 32.0-35.0 [facility] MCV Auto (RBC) [Entitic vol] Ordered By: Alta Schmid on 03-04-2023 MCV (RBC) [Entitic vol] 91.6 fL 80-100 [facility] Magnesium [Mass/volume] in S carlos or PlasmaOrdered By: Alta Schmid on 03-04-2023 Magnesium [Mass/Vol] 1.4 mg/dL 1.9-2.7 [facility] Nitrite Test strip Ql (U)Ord ered By: Alta Schmid on 03-04-2023 Nitrite Ql (U) Negative Negative [facility] No Panel InformationOrdered By: Alta Schmid on 03-04-2023 Estimated GFR (CKD-EPI) 35.395 mL/Min [facility] Creatinine Clearance (Chem N/A [facility] Parathyrin.intact [Mass/volu me] in Serum or PlasmaOrdered By: Alta Schmid on 03-04-2023 Parathyrin.intact [Mass/Vol] 87.0 pg/mL 12-88 [facility] Phosphate [Mass/volume] in S carlos or PlasmaOrdered By: Alta Schmid on 03-04-2023 Phosphate [Mass/Vol] 4.0 mg/dL 3.7-7.2 [facility] Platelet mean volume Auto (B ld) [Entitic vol]Ordered By: Alta Schmid on 03-04-2023 Platelet mean volume (Bld) [Entitic vol] 8.5 fL 6.3-10.7 [facility] Platelets Auto (Bld) [#/Vol] Ordered By: Alta Schmid on 03-04-2023 Platelets (Bld) [#/Vol] 327 10*3/uL 150-450 [facility] Potassium [Moles/volume] in Serum or PlasmaOrdered By: Alta Schmid on 03-04-2023 Potassium [Moles/Vol] 4.9 mmol/L 3.5-5.[address] [facility] Protein Auto test strip (U) [Mass/Vol]Ordered By: Alta Schmid on 03-04-2023 Protein (U) [Mass/Vol] Negative Negative Fi [facility] Protein [Mass/volume] in Uri neOrdered By: Alta Schmid on 03-04-2023 Protein (U) [Mass/Vol] 14 mg/dL 0-9 [facility] RBC Auto (Bld) [#/Vol]Ordere d By: Alta Schmid on 03-04-2023 RBC (Bld) [#/Vol] 4.65 10*6/uL 3.60-5.00 [facility] Serum or plasma anion gap de terminationOrdered By: Alta Schmid on 03-04-2023 Anion gap [Moles/Vol] 13.5 mmol/L 6.0-15.0 [facility] Sodium [Moles/volume] in Ser um or PlasmaOrdered By: Alta Schmid on 03-04-2023 Sodium [Moles/Vol] 138 mmol/L 136-145 [facility] Specific gravity Auto test s trip (U) [Rel density]Ordered By: Alta Schmid on 03-04-2023 Specific gravity (U) [Rel density] 1.014 1.001-1.030 [facility] Squamous epithelial cells de tection in urine sediment by light microscopyOrdered By: Alta Schmid on 03-04-2023 Epithelial cells.squamous LM Ql (Urine sed) 5-9 [HPF] 0-2 [facility] Urate [Mass/volume] in Serum or PlasmaOrdered By: Alta Schmid on 03-04-2023 Urate [Mass/Vol] 10.7 mg/dL 2.3-6.6 [facility] Urea nitrogen [Mass/volume] in Serum or PlasmaOrdered By: Alta Schmid on 03-04-2023 Urea nitrogen [Mass/Vol] 42 mg/dL 7-25 [facility] Urine bacteria detection by automated methodOrdered By: Alta Schmid on 03-04-2023 Bacteria Auto Ql (U) None seen None Seen [facility] Urine clarity by refractomet ry automatedOrdered By: Alta Schmid on 03-04-2023 Clarity Refractometry automated (U) Clear Clear [facility] Urine culture routineOrdered By: Alta Schmid on 03-04-2023 Bacteria identified Cx Nom (U) 2 Days [facility] Urine glucose measurement by automated test strip (mass/volume)Ordered By: Alta Schmid on 03-04-2023 Glucose Auto test strip (U) [Mass/Vol] Normal mg/dL Normal [facility] Urine hemoglobin detection b y automated test stripOrdered By: Alta Schmid on 03-04-2023 Hemoglobin Auto test strip Ql (U) Negative Negative [facility] Urine leukocyte esterase det ection by automated test stripOrdered By: Alta Schmid on 03-04-2023 Leukocyte esterase Auto test strip Ql (U) 1+ Negative [facility] Urine protein/creatinine rat ioOrdered By: Alta Schmid on 03-04-2023 Protein/Creatinine (U) [Ratio] 140 mg/g{Cre} 0-200 [facility] Urobilinogen Auto test strip (U) [Mass/Vol]Ordered By: Alta Schmid on 03-04-2023 Urobilinogen (U) [Mass/Vol] Normal mg/dL Normal [facility] Vitamin D+Metabolites [Mass/ volume] in Serum or PlasmaOrdered By: Alta Schmid on 03-04-2023 Vitamin D+Metabolites [Mass/Vol] 41.9 ng/mL 30-100 [facility] Comment on above: VITAMIN D STATUS 25( [place])VITAMIN D RANGE (ng/mL) Deficient <20 Insufficient 20 to <30Sufficient 30 to 100Reference: Raven MF,Isai NC, Randa WALSH, et al. Evaluation,treatment, and prevention of vitamin D deficiency; an Endocrine Society clinical practice guideline. JCEM. 2010; 96(7):1911-30. pH Auto test strip (U)Ordere d By: Alta Schmid on 03-04-2023 pH (U) 5.5 [pH] 5.0-9.0 [facility] Office Visit (Cardiology)on 12-08-2022 Follow-up visit Diagnoses/Problems Assessed Hypertension (401.9) (I10) Current smoker (305.1) (F17.200) 1/2 pack daily. Diabetes (250.00) (E11.9) Class 1 obesity with body mass index (BMI) of 32.0 to 32.9 in adult (278.00,V85.32) (E66.9,Z68.32) Orders Class 1 obesity with body mass index (BMI) of 32.0 to 32.9 in adult Healthy Weight Tips; Status:Complete; Done: [id number] Some eating tips that can help you lose weight.; Status:Complete; Done: [id number] SocHx: Current smoker Tobacco Use Screening; Status:Complete; Done: [id number] You need to stop smoking. Though it is not easy, more than half of all adult smokers have quit. We encourage you to write down all the reasons you should quit smoking and set a quit date for yourself. Ask us how we can help. You may also call 2-204-TESU-NOW for free resources and assistance.; Status:Complete; Done: [id number] Patient Instructions Please bring all medicines, vitamins, [...] Recorded: 08Dec2022 08:41AM Heart Rate66, R Radial Blzyaqpi761, RUE, Sitting Zcnmxlzpc67, RUE, Sitting Height5 ft 3 in Bhywbe859 lb BMI Ghkjrutuxx21.95 kg/m2 BSA Calculated1.88 Tobacco Usea) Yes Patient [...] JVP w (more content not included)... Normal [employer] I Tobacco Screening.on 023 Fall risk assessment a) No falls within the last year [facility] [employer] y 250 DO Work Phone: Tobacco use status [facility] a) Yes [facility] [employer] y [employer] DO Work Phone: Tobacco Screening. Yes -[facility] y 250 DO Work Phone: CBC AUTO DIFFon 06-28-2022 BASO # 0.1 103/ul Normal 0.0-0.1 [facility] Comment on above: Performed By: #### C BC #### [facility] [address] [address] [address] Briana Dillard Basophils/100 WBC (Bld) 0.8 % Normal 0.2-2.0 [facility] Comment on above: Performed By: #### C BC #### [facility] [address] [address] [address] Briana Dillard EO # 0.3 103/ul Normal 0.0-0.7 [facility] Comment on above: Performed By: #### C BC #### [facility] [address] [address] [address] Briana Dillard Eosinophils/100 WBC (Bld) 2.5 % Normal 0.9-7.0 [facility] Comment on above: Performed By: #### C BC #### [facility] [address] [address] [address] Briana Dillard Erythrocyte distribution width (RBC) [Ratio] 14.8 % Normal 11.0-15.0 [facility] Comment on above: Performed By: #### C BC #### [facility] [address] [place] [address] Dr. Briana Dillard Hematocrit (Bld) [Volume fraction] 43.8 % Normal 36.0-48.0 [facility] Comment on above: Performed By: #### C BC #### [facility] [address] [place] [address] Dr. Briana Dillard Hemoglobin (Bld) [Mass/Vol] 14.5 g/dL Normal 12.0-16.0 [facility] Comment on above: Performed By: #### C BC #### [facility] [address] [place] [address] Dr. Briana Dillard IG # 0.13 10e3/ul Critically high 0.00-0.03 [facility] Comment on above: Performed By: #### C BC #### [facility] [address] [address] [address] Briana Dillard IG % 1.0 % Critically high 0.0-0.5 [facility] Comment on above: Performed By: #### C BC #### [facility] [address] [place] [address] Dr. Briana Dillard LYMPH # 2.5 103/ul Normal 1.2-3.8 [facility] Comment on above: Performed By: #### C BC #### [facility] [address] [place] [address] Dr. Briana Dillard Lymphocytes/100 WBC (Bld) 19.1 % Critically low 20.5-60.0 [facility] Comment on above: Performed By: #### C BC #### [facility] [address] [place] [address] Dr. Briana Dillard MANUAL DIFF REQ NO Normal [facility] Comment on above: Performed By: #### C BC #### [facility] [address] [place] [address] Dr. Briana Dillard MCH (RBC) [Entitic mass] 30.8 pg Normal 26.7-34.0 [facility] Comment on above: Performed By: #### C BC #### [facility] [address] [place] [address] Dr. Briana Dillard MCHC (RBC) [Mass/Vol] 33.1 g/dL Normal 29.9-35.2 [facility] Comment on above: Performed By: #### C BC #### [facility] [address] [place] [address] Dr. Briana Dillard MCV (RBC) [Entitic vol] 93.0 fL Normal 81.0-99.0 [facility] Comment on above: Performed By: #### C BC #### [facility] [address] [place] [address] Dr. Briana Dillard MONO # 0.7 103/ul Normal 0.3-0.8 [facility] Comment on above: Performed By: #### C BC #### [facility] [address] [place] [address] Dr. Briana Dillard Monocytes/100 WBC (Bld) 5.7 % Normal 1.7-12.0 [facility] Comment on above: Performed By: #### C BC #### [facility] [address] [place] [address] Dr. Briana Dillard NEUT # 9.2 103/ul Critically high 1.4-6.5 [facility] Comment on above: Performed By: #### C BC #### [facility] [address] [place] [address] Dr. Briana Dillard Neutrophils/100 WBC (Bld) 70.9 % Normal 43.0-75.0 [facility] Comment on above: Performed By: #### C BC #### [facility] [address] [place] [address] Dr. Briana Dillard Platelet mean volume (Bld) [Entitic vol] 10.4 fL Normal 9.5-13.5 [facility] Comment on above: Performed By: #### C BC #### [facility] [address] [place] [address] Dr. Briana Dillard PLT 262 103/ul Normal 150-450 [facility] Comment on above: Performed By: #### C BC #### [facility] [address] [place] [address] Dr. Briana Dillard RBC 4.71 106/ul Normal 4.20-5.40 [facility] Comment on above: Performed By: #### C BC #### [facility] [address] [place] [address] Dr. Briana Dillard WBC 13.0 103/ul Critically high 4.0-11.0 [facility] Comment on above: Performed By: #### C BC #### [facility] [address] [place] [address] Dr. Briana Dillard DIRECT LDLon 06-28-2022 Cholesterol in LDL [Mass/Vol] 90 mg/dL Normal [facility] Comment on above: Performed By: #### C MP, CMADM, BNP #### [facility] [address] [place] [address] Dr. Briana Dillard DLDL NORMAL SEE BELOW Normal [facility] Comment on above: Result Comment: <100 mg/dl OPTIMAL 100 - 129 mg/dl NEAR OR ABOVE OPTIMAL 130 - 159 mg/dl BORDERLINE HIGH 160 - 189 mg/dl HIGH >190 mg/dl VERY HIGH Performed By: #### C MP, CMADM, BNP #### [facility] [address] [place] [address] Dr. Briana Dillard GLYCOHEMOGLOBIN A1Con 2022 ADA RECOMMENDATION SEE BELOW Normal [facility] Comment on above: Result Comment: ADA RECOMMENDED LIMIT 4.0 - 6.0 ADA THERAPEUTIC TARGET < 7.0 ACTION SUGGESTED > 7.0 Performed By: #### C KYLE COLMENARESDM, BNP #### [facility] [address] [address] [address] Briana Dillard Glucose [Mass/Vol] 229 mg/dL Normal [facility] Comment on above: Performed By: #### C DARRIAN CMADM, BNP #### [facility] [address] [address] [address] Briana Dillard HbA1c (Bld) [Mass fraction] 9.6 % Critically high 4.5-6.2 [facility] Comment on above: Performed By: #### C GEOVANY COLMENARES, BNP #### [facility] [address] [place] [address] Dr. Briana Dillard LIPID PROFILEon 06-28-2022 CHOL-HDL RATIO NORM SEE BELOW Normal [facility] Comment on above: Result Comment: 3.3 - 4.4 LOW RISK 4.4 - 7.1 AVERAGE RISK 7.1 - 11.0 MODERATE RISK >11.0 HIGH RISK Performed By: #### C KYLE COLMENARESDM, BNP #### [facility] [address] [place] [address] Dr. Briana Dillard Cholesterol [Mass/Vol] 219 mg/dL Critically high <=200 [facility] Comment on above: Performed By: #### C KYLE COLMENARESDM, BNP #### [facility] [address] [address] [address] Briana Dillard Cholesterol in HDL [Mass/Vol] 32 mg/dL Critically low 40-60 [facility] Comment on above: Performed By: #### C KYLE COLMENARESDM, BNP #### [facility] [address] [address] [address] Briana Dillard Cholesterol.total/Choles terol in HDL [Mass ratio] 6.8 {ratio} Normal [facility] Comment on above: Performed By: #### C DARRIAN CMADM, BNP #### [facility] [address] [address] [address] Briana Dillard HDL NORMAL > or = 60 mg/dl - LOW CARDIOVASCULAR RISK <40 mg/dl - HIGH CARDIOVASCULAR RISK Normal [facility] Comment on above: Performed By: #### C MP, CMADM, BNP #### [facility] [address] [address] [address] Briana Dillard LDL CALC NORMAL SEE BELOW Normal [facility] Comment on above: Result Comment: <100 mg/dl OPTIMAL 100 - 129 mg/dl NEAR OR ABOVE OPTIMAL 130 - 159 mg/dl BORDERLINE HIGH 160 - 189 mg/dl HIGH >190 mg/dl VERY HIGH Performed By: #### C MP, CMADM, BNP #### [facility] [address] [address] [address] Briana Dillard Triglyceride [Mass/Vol] 585 mg/dL Critically high <=150 [facility] Comment on above: Performed By: #### C MP, CMADM, BNP #### [facility] [address] [address] [address] Briana Dillard VLDL CALC 117.0 mg/dL Normal [facility] Comment on above: Performed By: #### C MP, CMADM, BNP #### [facility] [address] [address] [address] Briana Dillard PROF 14(COMP METB)on 023 Albumin [Mass/Vol] 3.6 g/dL Normal 3.4-5.0 [facility] Comment on above: Performed By: #### L IPID, CMP, DLDL #### [facility] [address] [place] [address] Dr. Briana Dillard Albumin/Globulin [Mass ratio] 0.9 {ratio} Normal [facility] Comment on above: Performed By: #### L IPID, CMP, DLDL #### [facility] [address] [place] [address] Dr. Briana Dillard ALP [Catalytic activity/Vol] 117 U/L Critically high 46-116 [facility] Comment on above: Performed By: #### L IPID, CMP, DLDL #### [facility] [address] [address] [address] Briana Dillard ALT [Catalytic activity/Vol] 42 U/L Normal 14-59 [facility] Comment on above: Performed By: #### L IPID, CMP, DLDL #### [facility] [address] [address] [address] Briana Dillard Anion gap [Moles/Vol] 15.4 mmol/L Normal [facility] Comment on above: Performed By: #### L IPID, CMP, DLDL #### [facility] [address] [address] [address] Briana Dillard AST [Catalytic activity/Vol] 29 U/L Normal 15-37 [facility] Comment on above: Performed By: #### L IPID, CMP, DLDL #### [facility] [address] [place] [address] Dr. Briana Dillard Bilirubin [Mass/Vol] 0.4 mg/dL Normal 0.2-1.0 [facility] Comment on above: Performed By: #### L IPID, CMP, DLDL #### [facility] [address] [address] [address] Briana Dillard Calcium [Mass/Vol] 10.2 mg/dL Critically high 8.5-10.1 [facility] Comment on above: Performed By: #### L IPID, CMP, DLDL #### [facility] [address] [place] [address] Dr. Briana Dillard Chloride [Moles/Vol] 100 mmol/L Normal 98-107 [facility] Comment on above: Performed By: #### L IPID, CMP, DLDL #### [facility] [address] [address] [address] Briana Dillard CO2 [Moles/Vol] 27.3 mmol/L Normal 21.0-32.0 [facility] Comment on above: Performed By: #### L IPID, CMP, DLDL #### [facility] [address] [address] [address] Briana Dillard Creatinine [Mass/Vol] 1.40 mg/dL Critically high 0.55-1.02 [facility] Comment on above: Performed By: #### L IPID, CMP, DLDL #### [facility] [address] [place] [address] Dr. Briana Dillard EGFR-AF EGYPTIAN 46 mL/min/1.73m2 Critically low >=60 [facility] Comment on above: Performed By: #### L IPID, CMP, DLDL #### [facility] [address] [place] [address] Dr. Briana Dillard EGFR-NON AF EGYPTIAN 38 mL/min/1.73m2 Critically low >=60 [facility] Comment on above: Performed By: #### L IPID, CMP, DLDL #### [facility] [address] [place] [address] Dr. Briana Dillard Globulin (S) [Mass/Vol] 3.9 g/dL Normal [facility] Comment on above: Performed By: #### L IPID, CMP, DLDL #### [facility] [address] [place] [address] Dr. Briana Dillard Glucose [Mass/Vol] 295 mg/dL Critically high 74-106 [facility] Comment on above: Performed By: #### L IPID, CMP, DLDL #### [facility] [address] [place] [address] Dr. Briana Dillard Potassium [Moles/Vol] 4.7 mmol/L Normal 3.5-5.1 [facility] Comment on above: Performed By: #### L IPID, CMP, DLDL #### [facility] [address] [place] [address] Dr. Briana Dillard Protein [Mass/Vol] 7.5 g/dL Normal 6.4-8.2 [facility] Comment on above: Performed By: #### L IPID, CMP, DLDL #### [facility] [address] [place] [address] Dr. Briana Dillard Sodium [Moles/Vol] 138 mmol/L Normal 136-145 [facility] Comment on above: Performed By: #### L IPID, CMP, DLDL #### [facility] [address] [place] [address] Dr. Briana Dillard Urea nitrogen [Mass/Vol] 34.0 mg/dL Critically high 7.0-18 .0 [facility] Comment on above: Performed By: #### L IPID, CMP, DLDL #### [facility] [address] [place] [address] Dr. Briana Dillard Urea nitrogen/Creatinine [Mass ratio] 24.3 mg/mg Normal [facility] Comment on above: Performed By: #### L IPID, CMP, DLDL #### [facility] [address] [place] [address] Dr. Briana Dillard UA RANDOM W/MICROSCOPICon BACTERIA TRACE Abnormal NONE SEEN [facility] Comment on above: Performed By: #### C MP, CMADM, BNP #### [facility] [address] [place] [address] Dr. Briana Dillard Bilirubin Ql (U) Negative Normal NEGATIVE [facility] Comment on above: Performed By: #### C MP, CMADM, BNP #### [facility] [address] [place] [address] Dr. Briana Dillard CAST NONE SEEN Normal NONE SEEN [facility] Comment on above: Performed By: #### C MP, CMADM, BNP #### [facility] [address] [place] [address] Dr. Briana Dillard Clarity (U) CLEAR Normal CLEAR [facility] Comment on above: Performed By: #### C MP, CMADM, BNP #### [facility] [address] [place] [address] Dr. Briana Dillard Color (U) LT. YELLOW Normal YELLOW [facility] Comment on above: Performed By: #### C MP, CMADM, BNP #### [facility] [address] [place] [address] Dr. Briana Dillard Crystals LM Nom (Urine sed) NONE SEEN Normal NONE SEEN [facility] Comment on above: Performed By: #### C MP, CMADM, BNP #### [facility] [address] [place] [address] Dr. Briana Dillard Epithelial cells LM Ql (Urine sed) MANY Abnormal NONE SEEN /RARE [facility] Comment on above: Performed By: #### C MP, CMADM, BNP #### [facility] [address] [address] [address] Briana Dillard Glucose Ql (U) Negative Normal NEGATIVE [facility] Comment on above: Performed By: #### C MP, CMADM, BNP #### [facility] [address] [address] [address] Briana Dillard Hemoglobin Ql (U) Negative Normal NEGATIVE [facility] Comment on above: Performed By: #### C MP, CMADM, BNP #### [facility] [address] [place] [address] Dr. Briana Dillard Ketones Ql (U) Negative Normal NEGATIVE [facility] Comment on above: Performed By: #### C MP, CMADM, BNP #### [facility] [address] [place] [address] Dr. Briana Dillard LEUKOCYTES TRACE Abnormal NEGATIVE [facility] Comment on above: Performed By: #### C MP, CMADM, BNP #### [facility] [address] [address] [address] Briana Dillard MUCOUS NONE SEEN Normal NONE SEEN [facility] Comment on above: Performed By: #### C MP, CMADM, BNP #### [facility] [address] [place] [address] Dr. Briana Dillard Nitrite Ql (U) Negative Normal NEGATIVE [facility] Comment on above: Performed By: #### C MP, CMADM, BNP #### [facility] [address] [address] [address] Briana Dillard pH (U) 6.0 [pH] Normal 5-9 [facility] Comment on above: Performed By: #### C MP, CMADM, BNP #### [facility] [address] [place] [address] Dr. Briana Dillard RBC 0-2 Normal 0-2 [facility] Comment on above: Performed By: #### C MP, CMADM, BNP #### [facility] [address] [address] [address] Briana Dillard SPEC GRAVITY 1.010 Normal 1.005-<=1.025 [facility] Comment on above: Performed By: #### C MP, CMADM, BNP #### [facility] [address] [address] [address] Briana Dillard UA PROTEIN TRACE Normal NEGATIVE/ TRACE [facility] Comment on above: Performed By: #### C MP, CMADM, BNP #### [facility] [address] [place] [address] Dr. Briana Dillard Urobilinogen Qn (U) 0.2 {Samuel'U}/dL Normal 0.2 - 1. 0 [facility] Comment on above: Performed By: #### C MP, CMADM, BNP #### [facility] [address] [place] [address] Dr. Briana Dillard WBC 2-5 Abnormal NONE SEEN [facility] Comment on above: Performed By: #### C MP, CMADM, BNP #### [facility] [address] [place] [address] Dr. Briana Dillard URINE T PROTEIN CREAT RATIOo n 06-28-2022 Protein (U) [Mass/Vol] 30.3 mg/dL Critically high <=12.0 [facility] Comment on above: Performed By: #### C MP CMADM, BNP #### [facility] [address] [place] [address] Dr. Briana Dillard UR PROT CREAT RAT 0.80 Normal [facility] Comment on above: Performed By: #### C MP, CMADM, BNP #### [facility] [address] [place] [address] Dr. Briana Dillard URINE CREAT 38.11 mg/dL Normal 20.00-300.00 [facility] Comment on above: Performed By: #### C MP, CMADM, BNP #### [facility] [address] [place] [address] Dr. Briana Dillard POINT OF CARE GLUCOSEon -2 Glucose [Mass/Vol] 296 mg/dL Critically high 74-106 [facility] Comment on above: Performed By: #### C MP, CMADM, BNP #### [facility] [address] [place] [address] Dr. Briana Dillard POINT OF CARE GLUCOSEon 05-04 Glucose [Mass/Vol] 312 mg/dL Critically high 74-106 [facility] Comment on above: Performed By: #### C BC #### [facility] [address] [place] [address] Dr. Briana Dillard GLYCOHEMOGLOBIN A1Con 2021 ADA RECOMMENDATION SEE BELOW Normal [facility] Comment on above: Result Comment: ADA RECOMMENDED LIMIT 4.0 - 6.0 ADA THERAPEUTIC TARGET < 7.0 ACTION SUGGESTED > 7.0 Performed By: #### A 1C #### [facility] [address] [place] [address] Dr. Briana Dillard Glucose [Mass/Vol] 223 mg/dL Normal [facility] Comment on above: Performed By: #### A 1C #### [facility] [address] [place] [address] Dr. Briana Dillard HbA1c (Bld) [Mass fraction] 9.4 % Critically high 4.5-6.2 [facility] Comment on above: Performed By: #### A 1C #### [facility] [address] [place] [address] Dr. Briana Dillard CBC AUTO DIFFon 11-29-2021 BASO # 0.1 103/ul Normal 0.0-0.1 [facility] Comment on above: Performed By: #### C BC #### [facility] [address] [place] [address] Dr. Briana Dillard Basophils/100 WBC (Bld) 0.9 % Normal 0.2-2.0 [facility] Comment on above: Performed By: #### C BC #### [facility] [address] [place] [address] Dr. Briana Dillard EO # 0.3 103/ul Normal 0.0-0.7 [facility] Comment on above: Performed By: #### C BC #### [facility] [address] [place] [address] Dr. Briana Dillard Eosinophils/100 WBC (Bld) 2.7 % Normal 0.9-7.0 [facility] Comment on above: Performed By: #### C BC #### [facility] [address] [place] [address] Dr. Briana Dillard Erythrocyte distribution width (RBC) [Ratio] 15.8 % Critically high 11.0-15.0 [facility] Comment on above: Performed By: #### C BC #### [facility] [address] [place] [address] Dr. Briana Dillard Hematocrit (Bld) [Volume fraction] 39.4 % Normal 36.0-48.0 [facility] Comment on above: Performed By: #### C BC #### [facility] [address] [place] [address] Dr. Briana Dillard Hemoglobin (Bld) [Mass/Vol] 13.0 g/dL Normal 12.0-16.0 [facility] Comment on above: Performed By: #### C BC #### [facility] [address] [place] [address] Dr. Briana Dillard IG # 0.12 10e3/ul Critically high 0.00-0.03 [facility] Comment on above: Performed By: #### C BC #### [facility] [address] [place] [address] Dr. Briana Dillard IG % 1.1 % Critically high 0.0-0.5 [facility] Comment on above: Performed By: #### C BC #### [facility] [address] [place] [address] Dr. Briana Dillard LYMPH # 2.7 103/ul Normal 1.2-3.8 [facility] Comment on above: Performed By: #### C BC #### [facility] [address] [place] [address] Dr. Briana Dillard Lymphocytes/100 WBC (Bld) 25.6 % Normal 20.5-60.0 [facility] Comment on above: Performed By: #### C BC #### [facility] [address] [place] [address] Dr. Briana Dillard MANUAL DIFF REQ NO Normal [facility] Comment on above: Performed By: #### C BC #### [facility] [address] [place] [address] Dr. Briana Dillard MCH (RBC) [Entitic mass] 30.9 pg Normal 26.7-34.0 [facility] Comment on above: Performed By: #### C BC #### [facility] [address] [place] [address] Dr. Briana Dillard MCHC (RBC) [Mass/Vol] 33.0 g/dL Normal 29.9-35.2 [facility] Comment on above: Performed By: #### C BC #### [facility] [address] [place] [address] Dr. Briana Dillard MCV (RBC) [Entitic vol] 93.6 fL Normal 81.0-99.0 [facility] Comment on above: Performed By: #### C BC #### [facility] [address] [place] [address] Dr. Briana Dillard MONO # 0.8 103/ul Normal 0.3-0.8 [facility] Comment on above: Performed By: #### C BC #### [facility] [address] [place] [address] Dr. Briana Dillard Monocytes/100 WBC (Bld) 7.9 % Normal 1.7-12.0 [facility] Comment on above: Performed By: #### C BC #### [facility] [address] [place] [address] Dr. Briana Dillard NEUT # 6.6 103/ul Critically high 1.4-6.5 [facility] Comment on above: Performed By: #### C BC #### [facility] [address] [place] [address] Dr. Briana Dillard Neutrophils/100 WBC (Bld) 61.8 % Normal 43.0-75.0 [facility] Comment on above: Performed By: #### C BC #### [facility] [address] [address] [address] Briana Dillard Platelet mean volume (Bld) [Entitic vol] 10.3 fL Normal 9.5-13.5 [facility] Comment on above: Performed By: #### C BC #### [facility] [address] [address] [address] Briana Dillard PLT 234 103/ul Normal 150-450 [facility] Comment on above: Performed By: #### C BC #### [facility] [address] [address] [address] Briana Dillard RBC 4.21 106/ul Normal 4.20-5.40 [facility] Comment on above: Performed By: #### C BC #### [facility] [address] [address] [address] Briana Dillard WBC 10.6 103/ul Normal 4.0-11.0 [facility] Comment on above: Performed By: #### C BC #### [facility] [address] [address] [address] Briana Dillard GLYCOHEMOGLOBIN A1Con 2021 ADA RECOMMENDATION SEE BELOW Normal [facility] Comment on above: Result Comment: ADA RECOMMENDED LIMIT 4.0 - 6.0 ADA THERAPEUTIC TARGET < 7.0 ACTION SUGGESTED > 7.0 Performed By: #### C BC #### [facility] [address] [place] [address] Dr. Briana Dillard Glucose [Mass/Vol] 220 mg/dL Normal [facility] Comment on above: Performed By: #### C BC #### [facility] [address] [place] [address] Dr. Briana Dillard HbA1c (Bld) [Mass fraction] 9.3 % Critically high 4.5-6.2 [facility] Comment on above: Performed By: #### C BC #### [facility] [address] [place] [address] Dr. Briana Dillard LIPID PROFILEon 11-29-2021 CHOL-HDL RATIO NORM SEE BELOW Normal [facility] Comment on above: Result Comment: 3.3 - 4.4 LOW RISK 4.4 - 7.1 AVERAGE RISK 7.1 - 11.0 MODERATE RISK >11.0 HIGH RISK Performed By: #### C MP, CMADM, BNP #### [facility] [address] [address] [address] Briana Dillard Cholesterol [Mass/Vol] 135 mg/dL Normal <=200 [facility] Comment on above: Performed By: #### C MP, CMADM, BNP #### [facility] [address] [address] [address] Briana Dillard Cholesterol in HDL [Mass/Vol] 44 mg/dL Normal 40-60 [facility] Comment on above: Performed By: #### C MP, CMADM, BNP #### [facility] [address] [address] [address] Briana Dillard Cholesterol in LDL [Mass/Vol] 60.2 mg/dL Normal [facility] Comment on above: Performed By: #### C MP, CMADM, BNP #### [facility] [address] [address] [address] Briana Dillard Cholesterol.total/Choles terol in HDL [Mass ratio] 3.1 {ratio} Normal [facility] Comment on above: Performed By: #### C MP, CMADM, BNP #### [facility] [address] [place] [address] Dr. Briana Dillard HDL NORMAL > or = 60 mg/dl - LOW CARDIOVASCULAR RISK <40 mg/dl - HIGH CARDIOVASCULAR RISK Normal [facility] Comment on above: Performed By: #### C MP, CMADM, BNP #### [facility] [address] [place] [address] Dr. Briana Dillard LDL CALC NORMAL SEE BELOW Normal [facility] [place] Comment on above: Result Comment: <100 mg/dl OPTIMAL 100 - 129 mg/dl NEAR OR ABOVE OPTIMAL 130 - 159 mg/dl BORDERLINE HIGH 160 - 189 mg/dl HIGH >190 mg/dl VERY HIGH Performed By: #### C MP, CMADM, BNP #### [facility] [address] [address] [address] Briana Dillard Triglyceride [Mass/Vol] 154 mg/dL Critically high <=150 [facility] Comment on above: Performed By: #### C MP, CMADM, BNP #### [facility] [address] [address] [address] Briana Dillard VLDL CALC 30.8 mg/dL Normal [facility] Comment on above: Performed By: #### C MP, CMADM, BNP #### [facility] [address] [address] [address] Briana Dillard POINT OF CARE GLUCOSEon 11-02 Glucose [Mass/Vol] 271 mg/dL Critically high 74-106 [facility] Comment on above: Performed By: #### C BC #### [facility] [address] [place] [address] Dr. Briana Dillard Glucose [Mass/Vol] 180 mg/dL Critically high 74-106 [facility] Comment on above: Performed By: #### C MP, CMADM, BNP #### [facility] [address] [place] [address] Dr. Briana Dillard BNPon 11-28-2021 Natriuretic peptide B (Bld) [Mass/Vol] 86.0 pg/mL Normal <=900.0 [facility] Comment on above: Performed By: #### C MP, CMADM, BNP #### [facility] [address] [place] [address] Dr. Briana Dillard CARDIAC TANIA ADMITon 022 CK [Catalytic activity/Vol] 52 U/L Normal 26-192 [facility] Comment on above: Performed By: #### C MP, CMADM, BNP #### [facility] [address] [place] [address] Dr. Briana Dillard CK.MB [Mass/Vol] 0.65 ng/mL Normal <=3.60 [facility] Comment on above: Performed By: #### C MP, CMADM, BNP #### [facility] [address] [place] [address] Dr. Briana Dillard HSTROP 4.8 pg/mL Normal 4.0-51.3 [facility] Comment on above: Result Comment: CUT- OFF POINTS HAVE BEEN ESTABLISHED BASED ON THE FOURTH UNIVERSAL DEFINITIONS OF MYOCARDIAL INFARCTION. THE UPPER REFERENCE LIMIT (URL) OF TROPONIN, DEFINED THE 99TH PERCENTILE OF cTnI DISTRIBUTION IN A REFERENCE POPULATION, HAS BEEN CONFIRMED THE DECISION THRESHOLD FOR VT DIAGNOSIS. Performed By: #### C MP CMADM, BNP #### [facility] [address] [place] [address] Dr. Briana Dillard YONIS 47 ng/mL Normal 9-82 [facility] Comment on above: Performed By: #### C MP, CMADM, BNP #### [facility] [address] [place] [address] Dr. Briana Dillard CBC AUTO DIFFon 11-28-2021 BASO # 0.1 103/ul Normal 0.0-0.1 [facility] Comment on above: Performed By: #### C BC #### [facility] [address] [place] [address] Dr. Briana Dillard Basophils/100 WBC (Bld) 0.8 % Normal 0.2-2.0 [facility] Comment on above: Performed By: #### C BC #### [facility] [address] [place] [address] Dr. Briana Dillard EO # 0.2 103/ul Normal 0.0-0.7 [facility] Comment on above: Performed By: #### C BC #### [facility] [address] [place] [address] Dr. Briana Dillard Eosinophils/100 WBC (Bld) 1.4 % Normal 0.9-7.0 [facility] Comment on above: Performed By: #### C BC #### [facility] [address] [place] [address] Dr. Briana Dillard Erythrocyte distribution width (RBC) [Ratio] 15.8 % Critically high 11.0-15.0 [facility] Comment on above: Performed By: #### C BC #### [facility] [address] [place] [address] Dr. Briana Dillard Hematocrit (Bld) [Volume fraction] 42.2 % Normal 36.0-48.0 [facility] Comment on above: Performed By: #### C BC #### [facility] [address] [address] [address] Briana Dillard Hemoglobin (Bld) [Mass/Vol] 14.3 g/dL Normal 12.0-16.0 [facility] Comment on above: Performed By: #### C BC #### [facility] [address] [address] [address] Briana Dillard IG # 0.14 10e3/ul Critically high 0.00-0.03 [facility] Comment on above: Performed By: #### C BC #### [facility] [address] [address] [address] Briana Dillard IG % 1.1 % Critically high 0.0-0.5 [facility] Comment on above: Performed By: #### C BC #### [facility] [address] [address] [address] Briana Dillard LYMPH # 1.9 103/ul Normal 1.2-3.8 [facility] Comment on above: Performed By: #### C BC #### [facility] [address] [address] [address] Briana Dillard Lymphocytes/100 WBC (Bld) 14.0 % Critically low 20.5-60.0 [facility] Comment on above: Performed By: #### C BC #### [facility] [address] [place] [address] Dr. Briana Dillard MANUAL DIFF REQ NO Normal [facility] [place] Comment on above: Performed By: #### C BC #### [facility] [address] [address] [address] Briana Dillard MCH (RBC) [Entitic mass] 31.2 pg Normal 26.7-34.0 [facility] Comment on above: Performed By: #### C BC #### [facility] [address] [address] [address] Briana Dillard MCHC (RBC) [Mass/Vol] 33.9 g/dL Normal 29.9-35.2 [facility] Comment on above: Performed By: #### C BC #### [facility] [address] [address] [address] Briana Dillard MCV (RBC) [Entitic vol] 92.1 fL Normal 81.0-99.0 [facility] Comment on above: Performed By: #### C BC #### [facility] [address] [address] [address] Briana Dillard MONO # 1.1 103/ul Critically high 0.3-0.8 [facility] Comment on above: Performed By: #### C BC #### [facility] [address] [place] [address] Dr. Briana Dillrad Monocytes/100 WBC (Bld) 8.0 % Normal 1.7-12.0 [facility] Comment on above: Performed By: #### C BC #### [facility] [address] [place] [address] Dr. Briana Dillard NEUT # 9.9 103/ul Critically high 1.4-6.5 [facility] Comment on above: Performed By: #### C BC #### [facility] [address] [place] [address] Dr. Briana Dillard Neutrophils/100 WBC (Bld) 74.7 % Normal 43.0-75.0 [facility] Comment on above: Performed By: #### C BC #### [facility] [address] [place] [address] Dr. Briana Dillard Platelet mean volume (Bld) [Entitic vol] 10.1 fL Normal 9.5-13.5 [facility] Comment on above: Performed By: #### C BC #### [facility] [address] [place] [address] Dr. Briana Dillard PLT 241 103/ul Normal 150-450 [facility] Comment on above: Performed By: #### C BC #### [facility] [address] [place] [address] Dr. Briana Dillard RBC 4.58 106/ul Normal 4.20-5.40 [facility] Comment on above: Performed By: #### C BC #### [facility] [address] [place] [address] Dr. Briana Dillard WBC 13.2 103/ul Critically high 4.0-11.0 [facility] Comment on above: Performed By: #### C #### [facility] [address] [id number] Briana Dillard CTA CHEST WO W [...] KEMP Date: 2021-11-28 13:10 Normal [facility] Covid-19 PCR (CVDTB)on 11-02 SARS-CoV-2 (COVID-19) RNA ANTOINE+probe Ql (Unsp spec) Not detected Normal NOT DETECTED [facility] Comment on above: Result Comment: [...] for this test is supported by the Clinical Education Assistant of Health and Human Service's declaration [...] #### C MP, CMADM, BNP #### [facility] [address] [place] [address] Dr. Briana Dillard D-DIMERon 11-28-2021 D-DIMER 0.77 mg/L FEU Critically high <=0.59 [facility] Comment on above: Performed By: #### P T, PTT, DDIM #### [facility] [address] [place] [address] Dr. Briana Dillard D-DIMER COMMENTS SEE BELOW Normal [facility] Comment on above: Result Comment: Incr [...] #### P T, PTT, DDIM #### [facility] [address] [place] [address] Dr. Briana Dillard POINT OF CARE GLUCOSEon 11-02 Glucose [Mass/Vol] 213 mg/dL Critically high 74-106 [facility] Comment on above: Performed By: #### P OCGLUC #### [facility] [address] [place] [address] Dr. Briana Dillard Glucose [Mass/Vol] 255 mg/dL Critically high 74-106 [facility] Comment on above: Performed By: #### C MP, CMADM, BNP #### [facility] [address] [place] [address] Dr. Briana Dillard PROF 14(COMP METB)on 022 Albumin [Mass/Vol] 3.4 g/dL Normal 3.4-5.0 [facility] Comment on above: Performed By: #### C MP, CMADM, BNP #### [facility] [address] [address] [address] Briana Dillard Albumin/Globulin [Mass ratio] 0.9 {ratio} Normal [facility] Comment on above: Performed By: #### C MP, CMADM, BNP #### [facility] [address] [address] [address] Briana Dillard ALP [Catalytic activity/Vol] 126 U/L Critically high 46-116 [facility] Comment on above: Performed By: #### C MP, CMADM, BNP #### [facility] [address] [place] [address] Dr. Briana Dillard ALT [Catalytic activity/Vol] 30 U/L Normal 14-59 [facility] Comment on above: Performed By: #### C MP, CMADM, BNP #### [facility] [address] [address] [address] Briana Dillard Anion gap [Moles/Vol] 13.6 mmol/L Normal [facility] Comment on above: Performed By: #### C MP, CMADM, BNP #### [facility] [address] [place] [address] Dr. Briana Dillard AST [Catalytic activity/Vol] 18 U/L Normal 15-37 [facility] Comment on above: Performed By: #### C MP, CMADM, BNP #### [facility] [address] [address] [address] Briana Dillard Bilirubin [Mass/Vol] 0.4 mg/dL Normal 0.2-1.0 [facility] Comment on above: Performed By: #### C MP, CMADM, BNP #### [facility] [address] [place] [address] Dr. Briana Dillard Calcium [Mass/Vol] 8.9 mg/dL Normal 8.5-10.1 [facility] Comment on above: Performed By: #### C MP, CMADM, BNP #### [facility] [address] [address] [address] Briana Dillard Chloride [Moles/Vol] 98 mmol/L Normal 98-107 [facility] Comment on above: Performed By: #### C MP, CMADM, BNP #### [facility] [address] [address] [address] Briana Dillard CO2 [Moles/Vol] 25.0 mmol/L Normal 21.0-32.0 [facility] Comment on above: Performed By: #### C MP, CMADM, BNP #### [facility] [address] [place] [address] Dr. Briana Dilalrd Creatinine [Mass/Vol] 1.58 mg/dL Critically high 0.55-1.02 [facility] Comment on above: Performed By: #### C MP, CMADM, BNP #### [facility] [address] [place] [address] Dr. Briana Dillard EGFR-AF EGYPTIAN 40 mL/min/1.73m2 Critically low >=60 [facility] Comment on above: Performed By: #### C MP, CMADM, BNP #### [facility] [address] [place] [address] Dr. Briana Dillard EGFR-NON AF EGYPTIAN 33 mL/min/1.73m2 Critically low >=60 [facility] Comment on above: Performed By: #### C MP, CMADM, BNP #### [facility] [address] [place] [address] Dr. Briana Dillard Globulin (S) [Mass/Vol] 4.0 g/dL Normal [facility] Comment on above: Performed By: #### C MP, CMADM, BNP #### [facility] [address] [place] [address] Dr. Briana Dillard Glucose [Mass/Vol] 386 mg/dL Critically high 74-106 [facility] Comment on above: Performed By: #### C MP, CMADM, BNP #### [facility] [address] [place] [address] Dr. Briana Dillard Potassium [Moles/Vol] 4.6 mmol/L Normal 3.5-5.1 [facility] Comment on above: Performed By: #### C GEOVANY COLMENARES, BNP #### [facility] [address] [address] [address] Briana Dillard Protein [Mass/Vol] 7.4 g/dL Normal 6.4-8.2 [facility] Comment on above: Performed By: #### C GEOVANY COLMENARES, BNP #### [facility] [address] [place] [address] Dr. Briana Dillard Sodium [Moles/Vol] 132 mmol/L Critically low 136-145 [facility] Comment on above: Performed By: #### C GEOVANY COLMENARES, BNP #### [facility] [address] [place] [address] Dr. Briana Dillard Urea nitrogen [Mass/Vol] 23.0 mg/dL Critically high 7.0-18 .0 [facility] Comment on above: Performed By: #### C GEOVANY COLMENARES, BNP #### [facility] [address] [place] [address] Dr. Briana Dillard Urea nitrogen/Creatinine [Mass ratio] 14.6 mg/mg Normal [facility] Comment on above: Performed By: #### C GEOVANY COLMENARES, BNP #### [facility] [address] [place] [address] Dr. Briana Dillard PROTIMEon 11-28-2021 INR Coag (PPP) [Relative time] 1.01 {INR} Normal [facility] Comment on above: Performed By: #### P T, PTT, DDIM #### [facility] [address] [place] [address] Dr. Briana Dillard INR GUIDELINES SEE BELOW Normal [facility] Comment on above: Result Comment: LURDES RED INR: 2.0 - 3.0 CONDITIONS NOT LISTED BELOW 2.5 - 3.5 FOR PROSTHETIC HEART VALVE REPLACEMENT 2.5 - 3.5 RECURRENT THROMBOSIS Performed By: #### P T, PTT, DDIM #### [facility] [address] [address] [address] Briana Dillard PT Coag (PPP) [Time] 10.9 s Normal 9.0-11.6 [facility] Comment on above: Performed By: #### P T, PTT, DDIM #### [facility] [address] [address] [address] Briana Dillard PTTon 11-28-2021 aPTT Coag (Bld) [Time] 27.5 s Normal 22.3-36.2 [facility] Comment on above: Performed By: #### P T, PTT, DDIM #### [facility] [address] [place] [address] Dr. Briana Dillard TROPONIN, HIGH SENSITIVITYon 11-28-2021 HSTROP 5.5 pg/mL Normal 4.0-51.3 [facility] Comment on above: Result Comment: CUT- OFF POINTS HAVE BEEN ESTABLISHED BASED ON THE FOURTH UNIVERSAL DEFINITIONS OF MYOCARDIAL INFARCTION. THE UPPER REFERENCE LIMIT (URL) OF TROPONIN, DEFINED THE 99TH PERCENTILE OF cTnI DISTRIBUTION IN A REFERENCE POPULATION, HAS BEEN CONFIRMED THE DECISION THRESHOLD FOR VT DIAGNOSIS. Performed By: #### C MP, CMADM, BNP #### [facility] [address] [place] [address] Dr. Briana Dillard HSTROP 5.4 pg/mL Normal 4.0-51.3 [facility] Comment on above: Result Comment: CUT- OFF POINTS HAVE BEEN ESTABLISHED BASED ON THE FOURTH UNIVERSAL DEFINITIONS OF MYOCARDIAL INFARCTION. THE UPPER REFERENCE LIMIT (URL) OF TROPONIN, DEFINED THE 99TH PERCENTILE OF cTnI DISTRIBUTION IN A REFERENCE POPULATION, HAS BEEN CONFIRMED THE DECISION THRESHOLD FOR VT DIAGNOSIS. Performed By: #### C MP, CMADM, BNP #### [facility] [address] [place] [address] Dr. Briana Dillard HSTROP 5.6 pg/mL Normal 4.0-51.3 [facility] Comment on above: Result Comment: CUT- OFF POINTS HAVE BEEN ESTABLISHED BASED ON THE FOURTH UNIVERSAL DEFINITIONS OF MYOCARDIAL INFARCTION. THE UPPER REFERENCE LIMIT (URL) OF TROPONIN, DEFINED THE 99TH PERCENTILE OF cTnI DISTRIBUTION IN A REFERENCE POPULATION, HAS BEEN CONFIRMED THE DECISION THRESHOLD FOR VT DIAGNOSIS. Performed By: #### C MP, CMADM, BNP #### [facility] [address] [place], [place] [address] Dr. Briana Dillard XR CHEST 1 Von [...] KEMP Date: 2021-11-28 12:46 Normal [facility] Tobacco Screening.on 022 Adult depression screening assessment Yes [facility] DO Work Phone: Tobacco use status [facility] a) Yes [facility] DO Work Phone: Tobacco Screening. Yes [facility] 250 DO Work Phone: Tobacco Screening. 1-Several days [facility] Work Phone: Tobacco Screening. 0-Not at all [facility] Work Phone: Tobacco Screening. Not difficult at all [facility] 250 DO Work Phone: Echocardiogramon 05-20-2021 Echocardiography [facility] [address], [address] [place] [address] TRANSTHORACIC ECHOCARDIOGRAM REPORT Patient Name: VIDHYA Durbin Physician: [id number] Ruma Dawn MD Study Date: 05/20/2021 Referring [id number] SHASHI COTTRELL Physician: MRN/PID: [id number] PCP: Accession/Order#: [id number] Department [facility] Location: Date of : 1955 Fellow: Gender: F Nurse: Admit Date: Information Systems Supervisor: Clarisse Sumner RDCS, RVT Height: 160.02 cm CC Report to: Weight: 89.36 kg Study Type: Echocardiogram BSA: 1.92 m2 Blood Pressure: 166 /94 mmHg Diagnosis/ICD: I51.7-Cardiomegaly; R06.00-Dyspnea, unspecified Indication: Obesity, Tobacco Abuse Procedure/CPT: Echo Complete w Full [id number] Study Detail: The following Echo studies were [...] 0.9 m/s (0.6-0.9m/s) PV Max P.1 mmHg [id number] Ruma Dawn MD Electronically signed on 05/24/2021 at 5:25:46 PM Final Normal [facility] Tobacco Screening.on 022 Fall risk assessment a) No falls within the last year [facility] 250 DO Work Phone: Tobacco use status CPHS a) Yes M [facility] 250 DO Work Phone: Fall risk assessment a) No falls within the last year [facility] 250 DO Work Phone: Tobacco use status [facility] a) [facility] Work Phone: Tobacco Screening. Yes [facility] 250 DO Work Phone: Bld Gas Venon 12-02-2019 Allens Test N/A [facility] Comment on above: Result Comment: [facility] Department of Pulmonary Medicine [address] [place] [address] Performed By: #### 1 [id number] #### [facility] [address] [place] [address] Called By: KATHY OCHOA [facility] Comment on above: Performed By: #### 1 [id number] #### [facility] [address] [place] [address] Called To: DR. CORINNE COFFMAN [facility] Comment on above: Performed By: #### 1 [id number] #### [facility] [address] [place] [address] Drawn by PEDRO [facility] Comment on above: Performed By: #### 1 [id number] #### [facility] [address] [place] [address] Dt/Tm Notified 17:42:00 F [facility] Comment on above: Performed By: #### 1 [id number] #### [facility] [address] [place] [address] pCO2 Guillaume 36.1 mmHg Low 38.0-50.0 [facility] Comment on above: Performed By: #### 1 [id number] #### [facility] [address] [place] [address] pH (BldV) 7.392 [pH] Normal 7.320-7.430 [facility] Comment on above: Performed By: #### 1 [id number] #### [facility] [address] [place] [address] Sample Site OTHER [facility] Comment on above: Performed By: #### 1 [id number] #### [facility] [address] [id number] Sample Type Venous [facility] Comment on above: Performed By: #### 1 [id number] #### [facility] [address] [place] [address] Physician Orderon 12-02-2019 Physician Order [id number]:127 Normal [facility] Vital Signs Date Time Vital Sign Value Performing Clinician Facility 03-22-2024 09:57-0500 Body height 160.02 cm Juan Antonio Carver MENTAL HEALTH SPECIALIST-C Work Phone: [facility] 03-22-2024 09:57-0500 Body mass index (BMI) [Ratio] 34 kg/m2 Juan Antonio Carver MENTAL HEALTH SPECIALIST-C Work Phone: [facility] 03-22-2024 09:57-0500 Body temperature 96.9 [degF] Juan Antonio Carver MENTAL HEALTH SPECIALIST-C Work Phone: [facility] 03-22-2024 09:57-0500 Body weight 87.14 kg Juan Antonio Carver MENTAL HEALTH SPECIALIST-C Work Phone: [facility] 03-22-2024 09:57-0500 Diastolic blood pressure 86 mm[Hg] Juan Antonio Carver MENTAL HEALTH SPECIALIST-C Work Phone: [facility] 03-22-2024 09:57-0500 Heart rate 108 /min Juan Antonio Carver MENTAL HEALTH SPECIALIST-C Work Phone: [facility] 03-22-2024 09:57-0500 Respiratory rate 18 /min Juan Antonio Carver MENTAL HEALTH SPECIALIST-C Work Phone: [facility] 03-22-2024 09:57-0500 SaO2% (BldA) [Mass fraction] 92 % Juan Antonio Carver MENTAL HEALTH SPECIALIST-C Work Phone: [facility] 03-22-2024 09:57-0500 Systolic blood pressure 146 mm[Hg] Juan Antonio Carver MENTAL HEALTH SPECIALIST-C Work Phone: [facility] 01-06-2024 15:12-0400 Body height 160 cm Nadja Donaldo DPM Work Phone: [facility] 01-06-2024 15:12-0400 Body mass index (BMI) [Ratio] 36.14 kg/m2 Nadja Donaldo DPM Work Phone: [facility] 01-06-2024 15:12-0400 Body weight 92.53 kg Nadja Oneill DPM Work Phone: [facility] 08-05-2023 10:22-0400 Body temperature 97.2 [degF] MD Shaikh Mchugh Work Phone: [facility] 08-05-2023 10:22-0400 Body weight 89.81 kg MD Shaikh Mchugh Work Phone: [facility] 08-05-2023 10:22-0400 Diastolic blood pressure 75 mm[Hg] MD Shaikh Mchugh Work Phone: [facility] 08-05-2023 10:22-0400 Heart rate 71 /min MD Shaikh Mchugh Work Phone: [facility] 08-05-2023 10:22-0400 Respiratory rate 16 /min MD Shaikh Mchugh Work Phone: [facility] 08-05-2023 10:22-0400 SaO2% (BldA) [Mass fraction] 90 % MD Shaikh Mchugh Work Phone: [facility] 08-05-2023 10:22-0400 Systolic blood pressure 162 mm[Hg] MD Shaikh Mchugh Work Phone: [facility] 06-24-2023 10:07-0500 Body height 160.02 cm MD Shaikh Mchugh Work Phone: [facility] 06-24-2023 10:07-0500 Body mass index (BMI) [Ratio] 34.2 kg/m2 MD Shaikh Mchugh Work Phone: [facility] 06-24-2023 10:07-0500 Body temperature 97.2 [degF] MD Shaikh Mchugh Work Phone: [facility] 06-24-2023 10:07-0500 Body weight 87.54 kg MD Shaikh Mchugh Work Phone: [facility] 06-24-2023 10:07-0500 Diastolic blood pressure 96 mm[Hg] MD Shaikh Mchugh Work Phone: [facility] 06-24-2023 10:07-0500 Heart rate 78 /min MD Shaikh Mchugh Work Phone: [facility] 06-24-2023 10:07-0500 Respiratory rate 16 /min MD Shaikh Mchugh Work Phone: [facility] 06-24-2023 10:07-0500 SaO2% (BldA) [Mass fraction] 95 % MD Shaikh Mchugh Work Phone: [facility] 06-24-2023 10:07-0500 Systolic blood pressure 160 mm[Hg] MD Shaikh Mchugh Work Phone: [facility] 03-24-2023 13:06-0500 Body temperature 97.8 [degF] MD Shaikh Mchugh Work Phone: [facility] 03-24-2023 13:06-0500 Body weight 86.63 kg MD Shaikh Mchugh Work Phone: [facility] 03-24-2023 13:06-0500 Diastolic blood pressure 67 mm[Hg] MD Shaikh Mchugh Work Phone: [facility] 03-24-2023 13:06-0500 Heart rate 68 /min MD Shaikh Mchugh Work Phone: [facility] 03-24-2023 13:06-0500 Respiratory rate 16 /min MD Shaikh Mchugh Work Phone: [facility] 03-24-2023 13:06-0500 SaO2% (BldA) [Mass fraction] 98 % MD Shaikh Mchugh Work Phone: [facility] 03-24-2023 13:06-0500 Systolic blood pressure 130 mm[Hg] MD Shaikh Mchugh Work Phone: [facility] 03-24-2023 12:53-0500 Body height 160.02 cm MD Shaikh Mchugh Work Phone: [facility] 03-11-2023 09:20-0500 Body height 162.56 cm Alta Sharmaine Other [facility] Other 03-11-2023 09:20-0500 Body mass index (BMI) [Ratio] 32.78 kg/m2 Alta Sharmaine Other [facility] Other 03-11-2023 09:20-0500 Body temperature 96.3 [degF] Alta Sharmaine Other [facility] Other 03-11-2023 09:20-0500 Body weight 86.64 kg Alta Sharmaine Other [facility] Other 03-11-2023 09:20-0500 Diastolic blood pressure 77 mm[Hg] Alta Sharmaine Other [facility] Other 03-11-2023 09:20-0500 Respiratory rate 18 /min Alta Sharmaine Other [facility] Other 03-11-2023 09:20-0500 SaO2% (BldA) [Mass fraction] 95 % Alta Sharmaine Other [facility] Other 03-11-2023 09:20-0500 Systolic blood pressure 139 mm[Hg] Alta Sharmaine Other [facility] Other 12-08-2022 08:41-0400 Body height 160.02 cm Dial [employer] Work Phone: [employer] 250 DO Work Phone: 12-08-2022 08:41-0400 Body mass index (BMI) [Ratio] 32.95 kg/m2 [employer] Work Phone: [employer] 250 DO Work Phone: 12-08-2022 08:41-0400 Body surface area Derived from formula 1.88 m2 Dial [employer] Work Phone: [employer] 250 DO Work Phone: 12-08-2022 08:41-0400 Body weight 84.37 kg Dial Fawwad Work Phone: [facility] 250 DO Work Phone: 12-08-2022 08:41-0400 Diastolic blood pressure 60 mm[Hg] Dial Fawwad Work Phone: [facility] 250 DO Work Phone: 12-08-2022 08:41-0400 Heart rate 66 /min Dial Fawwad Work Phone: [facility] 250 DO Work Phone: 12-08-2022 08:41-0400 Systolic blood pressure 108 mm[Hg] Dial Fawwad Work Phone: [facility] 250 DO Work Phone: 07-01-2021 13:12-0500 Diastolic blood pressure 88 mm[Hg] Dial Fawwad Work Phone: [facility] 250 DO Work Phone: 07-01-2021 13:12-0500 Systolic blood pressure 138 mm[Hg] Dial Fawwad Work Phone: [facility] 250 DO Work Phone: 07-01-2021 09:20-0500 Diastolic blood pressure 100 mm[Hg] Dial Fawwad Work Phone: [facility] 250 DO Work Phone: 07-01-2021 09:20-0500 Systolic blood pressure 148 mm[Hg] Dial Fawwad Work Phone: [facility] 250 DO Work Phone: 07-01-2021 09:01-0500 Diastolic blood pressure 98 mm[Hg] Dial Fawwad Work Phone: [facility] 250 DO Work Phone: 07-01-2021 09:01-0500 Systolic blood pressure 168 mm[Hg] Shaikh Brightwad Work Phone: [facility] 250 DO Work Phone: 07-01-2021 08:51-0500 Body height 160.02 cm Shaikh Satyad Work Phone: [facility] 250 DO Work Phone: 07-01-2021 08:51-0500 Body mass index (BMI) [Ratio] 33.83 kg/m2 Shaikh Satyad Work Phone: [facility] 250 DO Work Phone: 07-01-2021 08:51-0500 Body surface area Derived from formula 1.9 m2 Shaikh Satyad Work Phone: [facility] 250 DO Work Phone: 07-01-2021 08:51-0500 Body weight 86.64 kg Shaikh Satyad Work Phone: [facility] 250 DO Work Phone: 07-01-2021 08:51-0500 Diastolic blood pressure 104 mm[Hg] Shaikh Brightwad Work Phone: [facility] 250 DO Work Phone: 07-01-2021 08:51-0500 Heart rate 87 /min Shaikh Brightwad Work Phone: [facility] 250 DO Work Phone: 07-01-2021 08:51-0500 Systolic blood pressure 169 mm[Hg] Shaikh Brightwad Work Phone: [facility] 250 DO Work Phone: 07-01-2021 08:51-0500 6 1 Dial Fawwad Work Phone: [facility] 250 DO Work Phone: Comment on above: [id number] 05-24-2021 10:00-0500 Body height 162.56 cm Juan Gonzalez Other [facility] Other 05-24-2021 10:00-0500 Body mass index (BMI) [Ratio] 32.44 kg/m2 Juan Gonzalez Other [facility] Other 05-24-2021 10:00-0500 Body weight 85.73 kg Juan Gonzalez Other [facility] Other 05-20-2021 10:45-0500 60 1 Dail Fawwad Work Phone: [facility] [address] [place] Work Phone: Comment on above: [id number] 05-13-2021 11:59-0500 Diastolic blood pressure 104 mm[Hg] Dial Fawwad Work Phone: [facility] 250 DO Work Phone: 05-13-2021 11:59-0500 Systolic blood pressure 162 mm[Hg] Dial Fawwad Work Phone: [facility] 250 DO Work Phone: 05-13-2021 11:13-0500 Diastolic blood pressure 100 mm[Hg] Dial Fawwad Work Phone: [facility] 250 DO Work Phone: 05-13-2021 11:13-0500 Systolic blood pressure 170 mm[Hg] Dial Fawwad Work Phone: [facility] 250 DO Work Phone: 05-13-2021 11:12-0500 Body height 160.02 cm Shaikh Brightwad Work Phone: [facility] 250 DO Work Phone: 05-13-2021 11:12-0500 Body mass index (BMI) [Ratio] 34.9 kg/m2 Shaikh Brightwad Work Phone: [facility] 250 DO Work Phone: 05-13-2021 11:12-0500 Body surface area Derived from formula 1.92 m2 Shaikh Brightwad Work Phone: [facility] 250 DO Work Phone: 05-13-2021 11:12-0500 Body weight 89.36 kg Shaikh Brightwad Work Phone: [facility] 250 DO Work Phone: 05-13-2021 11:12-0500 Diastolic blood pressure 102 mm[Hg] Dial Fawwad Work Phone: [facility] 250 DO Work Phone: 05-13-2021 11:12-0500 Heart rate 88 /min Shaikh Yaimawwad Work Phone: [facility] 250 DO Work Phone: 05-13-2021 11:12-0500 Systolic blood pressure 172 mm[Hg] Dial Fawwad Work Phone: [facility] 250 DO Work Phone: 05-13-2021 11:07-0500 Body height 160.02 cm Dial Fawwad Work Phone: [facility] 250 DO Work Phone: 05-13-2021 11:07-0500 Body mass index (BMI) [Ratio] 34.9 kg/m2 Shaikh Jeison Work Phone: [facility] 250 DO Work Phone: 05-13-2021 11:07-0500 Body surface area Derived from formula 1.92 m2 Shaikh Jeison Work Phone: [facility] 250 DO Work Phone: 05-13-2021 11:07-0500 Body weight 89.36 kg Shaikh Jeison Work Phone: [facility] 250 DO Work Phone: 05-13-2021 11:07-0500 Heart rate 88 /min Shaikh Jeison Work Phone: [facility] 250 DO Work Phone: 04-09-2021 11:40-0500 Body height 162.56 cm Juan Gonzalez Other [facility] Other 04-09-2021 11:40-0500 Body mass index (BMI) [Ratio] 32.44 kg/m2 Juan Gonzalez Other [facility] Other 04-09-2021 11:40-0500 Body weight 85.73 kg Juan Gonzalez Other [facility] Other 04-09-2021 11:40-0500 Diastolic blood pressure 72 mm[Hg] Juan Gonzalez Other [facility] Other 04-09-2021 11:40-0500 Systolic blood pressure 124 mm[Hg] Juan Gonzalez Other [facility] [employer] Other Encounters Encounter Date Encounter Type Care Provider Facility Start: 05-24-2024 End: 05-24-2024 Refill Juan Antonio Carver MENTAL HEALTH SPECIALIST Work Phone: [facility] Comment on above: Mixed hyperlipidemia (CMS/HCC) Start: 05-12-2024 End: 05-12-2024 Refill Juan Antonio Galiciak MENTAL HEALTH SPECIALIST Work Phone: [facility] Comment on above: Chronic diastolic co ngestive heart failure (CMS/HCC); Primary hypertension (CMS/HCC) Start: 05-06-2024 End: 05-09-2024 Refill Juan Antonio Galiciak MENTAL HEALTH SPECIALIST Work Phone: [facility] Comment on above: Diabetic polyneuropa thy associated with type 2 diabetes mellitus (CMS/HCC) Start: 03-22-2024 End: 03-22-2024 ambulatory Juan Antonio Carver MENTAL HEALTH SPECIALIST-C Work Phone: [facility] Work Phone: Start: 03-22-2024 End: 03-22-2024 Patient encounter procedure Juan Antonio Galiciak MENTAL HEALTH SPECIALIST-C Work Phone: [facility] [place] Work Phone: Start: 03-14-2024 End: 03-14-2024 Patient encounter procedure Juan Antonio Galiciak MENTAL HEALTH SPECIALIST-C Work Phone: [facility] [place] Work Phone: Start: 03-14-2024 End: 03-14-2024 ambulatory Alta Sharmaine Facility:[facility] Start: 02-15-2024 End: 02-16-2024 Refill Juan Antonio Galiciak MENTAL HEALTH SPECIALIST Work Phone: [facility] Comment on above: Diabetic polyneuropa thy associated with type 2 diabetes mellitus (CMS/HCC) Start: 01-18-2024 End: 01-18-2024 Refill Juan Antonio Carver MENTAL HEALTH SPECIALIST Work Phone: [facility] Comment on above: Moderate episode of recurrent major depressive disorder (HCC) ([facility]) Start: 01-11-2024 End: 01-12-2024 Refill Shaikh Jeison PRAJAPATI Work Phone: [facility] Comment on above: Type 2 diabetes lon itus with stage 3a chronic kidney disease, with long-term current use of insulin (HCC) ([facility]) Start: 01-06-2024 End: 01-06-2024 Office outpatient new 45 minutes Nadja Fulton DPM Work Phone: [facility] Comment on above: Dermatophytosis of n ail (Primary Dx); Type 2 diabetes mellitus with stage 3a chronic kidney disease, with long-term current use of insulin ([facility]) ([facility]); Diabetic polyneuropathy associated with type 2 diabetes mellitus ([facility]); Dystrophic nail Start: 01-06-2024 End: 01-06-2024 ambulatory NADJA FULTON Not Available Start: 01-06-2024 End: 01-06-2024 Bamboo flowsheet Nadja Fulton DPM Work Phone: [facility] Start: 01-06-2024 End: 01-06-2024 Bamboo flowsheet Nadja Fulton DPM Work Phone: [facility] Start: 12-14-2023 End: 12-14-2023 ambulatory JUAN ANTONIO CARVER Not Available Start: 10-05-2023 End: 10-05-2023 [facility]ulatory [facility] Start: 09-21-2023 End: 09-21-2023 ambulatory Radha Dunaway MD Facility: [facility] Start: 09-14-2023 End: 09-14-2023 ambulatory SHAIKH JEISON Not Available Start: 09-12-2023 End: 09-12-2023 Patient encounter procedure MD Shaikh Mchugh Work Phone: [facility] [place] Work Phone: Start: 09-12-2023 End: 09-12-2023 ambulatory MD Shaikh Mchugh Work Phone: [facility] Work Phone: Start: 08-05-2023 End: 08-05-2023 Patient encounter procedure MD Shaikh cMhugh Work Phone: [facility] Work Phone: Start: 08-05-2023 End: 08-05-2023 ambulatory MD Shaikh Mchugh Work Phone: [facility] Work Phone: Start: 08-05-2023 Registered Recurring MD Shaikh Mchugh Work Phone: [facility] Work Phone: Start: 07-13-2023 End: 07-13-2023 ambulatory SHAIKH JEISON Not Available Start: 07-10-2023 End: 07-10-2023 ambulatory EZRA VILLA V Not Available Start: 07-03-2023 End: 07-03-2023 ambulatory EZRA VILLA V Not Available Start: 06-24-2023 End: 06-24-2023 ambulatory MD Shaikh Mchugh Work Phone: [facility] Work Phone: Start: 06-24-2023 End: 06-24-2023 Patient encounter procedure MD Shaikh Mchugh Work Phone: [facility] Work Phone: Start: 06-24-2023 Registered Recurring MD Shaikh Mchugh Work Phone: [facility] Work Phone: Start: 06-01-2023 End: 06-01-2023 ambulatory Radha Dunaway MD Facility:[facility] Start: 05-11-2023 End: 05-11-2023 ambulatory Radha Dunaway MD Facility:[facility] Start: 04-13-2023 Patient encounter procedure Nadja Fulton DPM Work Phone: [facility] Start: 04-13-2023 Telephone encounter Neena [facility] Start: 04-13-2023 End: 04-13-2023 ambulatory SHAIKH JEISON [facility] Other Start: 04-06-2023 End: 04-06-2023 ambulatory Radha Dunaway MD Facility:[facility] Start: 03-24-2023 End: 03-24-2023 ambulatory MD Shaikh Mchugh Work Phone: [facility] Work Phone: Start: 03-24-2023 End: 03-24-2023 Registered Recurring MD Shaikh Mchugh Work Phone: [facility] Work Phone: Start: 03-11-2023 End: 03-11-2023 ambulatory Alta Sharmaine Other [employer] Other Start: 03-11-2023 Office outpatient vi sit 25 minutes Alta Sharmaine [facility] Start: 03-04-2023 End: 03-04-2023 ambulatory MD Shaikh Mchugh Work Phone: [facility] Work Phone: Start: 03-04-2023 End: 03-04-2023 Patient encounter procedure MD Shaikh Mchugh Work Phone: [facility] [place] Work Phone: Start: 12-08-2022 Office outpatient vi sit 15 minutes Dial Brightwad Work Phone: [facility] 250 DO Work Phone: Start: 12-08-2022 Patient encounter procedure Shaikh Brightwad Work Phone: [facility] 250 DO Work Phone: Start: 12-08-[address] Shashi Cottrell II Facility: Start: 11-10-2022 End: 11-10-2022 ambulatory Radha Dunaway MD Facility: [facility] Start: 10-16-2022 ambulatory DIAL Gurjit FATeodoraELISHAD Facilit y:[facility] Start: 07-17-2022 End: 07-18-2022 ambulatory DIAL H FAWWAD Facility:[facility] Start: 06-29-2022 Rx Renewal Shaikh Satyad Work Phone: [facility] 250 DO Work Phone: Start: 06-28-2022 End: 06-29-2022 ambulatory DIAL H SATYAD Facility:[facility] Start: 06-12-[address] ELIGIO HODGE [...] Start: 01-09-2022 End: 01-10-2022 ambulatory DIAL H SATYAD Facility:[facility] Start: 11-28-2021 End: 11-29-2021 ambulatory DIAL H SATYAD Facility:[facility] Start: 10-17-2021 End: 10-18-2021 ambulatory EVA ROSEN . Facility: Start: 07-01-2021 AUDIT Shaikh Jeison Work Phone: [facility] 250 DO Work Phone: Start: 05-28-2021 FUV, Provider: Shashi Cottrell, Status: Pen, Time: 10:50 AM Shaikh Jeison Work Phone: [facility] 250 DO Work Phone: Start: 05-26-2021 Chart Update Shaikh Jeison Work Phone: [facility] 250 DO Work Phone: Start: 05-24-2021 End: 05-24-2021 ambulatory Juan Gonzalez Other [facility] Other Start: 05-24-2021 Office outpatient vi sit 15 minutes Juan Gonzalez [facility] Start: 05-20-2021 Patient encounter procedure Shaikh Jeison Work Phone: [facility] [employer] [address] [place] Work Phone: Start: 05-13-2021 Office consultation new/estab patient 60 min Shaikh Jeison Work Phone: [facility] [employer] 250 DO Work Phone: Start: 04-09-2021 End: 04-09-2021 ambulatory Juan Gonzalez Other [facility] Other Start: 04-09-2021 Office outpatient ne w 45 minutes Juan Gonzalez [facility] Procedures Date Procedure Procedure Detail Performing Clinician Start: 07-03-2023 End: 07-03-2023 Screening mammography of bilateral breasts MD Shaikh Mchugh Work Phone: Start: 03-04-2023 Urine culture MD Shaikh Mchugh Work Phone: Start: 05-20-2021 Echocardiography Shaikh Jeison Work Phone: Cardiac catheterization Wayne Myersalex Work Phone: Cholecystectomy Shaikh Satya alex Work Phone: Dilation and curettage Shaik gurjit Mchugh Work Phone: Total colonoscopy Shaikh Bright [employer] Work Phone: Plan of Treatment Date Care Activity Detail Author Start: 05-19-2026 Screening for malign ant neoplasm of colon [facility] Start: 05-08-2025 Glaucoma screening Diabetes: R etinopathy Screening [facility] Start: 09-11-2024 Urine screening for protein Diabetes: Urine Protein Screening [facility] Start: 07-02-2024 Screening for malign ant neoplasm of breast Mammogram [facility] Start: 06-29-2024 End: 06-29-2024 Patient encounter procedure 06/29/2024 1:15 PM EST Procedure Visit [facility] [address] [place] [id number] Nadja Fulton DPM [address] [place] [address] [facility] Start: 05-18-2024 End: 05-18-2024 Patient encounter procedure 05/18/2024 1:00 PM EST Procedure Visit [facility] [address] [place] [address] Nadja Fulton DPM [address] [place] [address] [facility] Start: 04-13-2024 Medicare Annual Well ness (AWV) Medicare Annual Wellness (AWV) [facility] Start: 03-15-2024 End: 03-15-2024 Patient encounter procedure 03/15/2024 9:00 AM EST Office Visit [facility] [address] [place] [address] Juan Antonio Carver, MENTAL HEALTH SPECIALIST [address] [place] [address] [facility] Start: 01-06-2024 End: 01-06-2024 Patient encounter procedure 01/06/2024 3:30 PM EDT Office Visit [facility] [address] [place] [id number] Nadja Fulton DPM [address] [facility] [place], [place] [id number] Type 2 diabetes mellitus with stage 3a chronic kidney disease, with long-term current use of insulin (HCC) ([facility]); Diabetic polyneuropathy associated with type 2 diabetes mellitus ([facility]) [facility] Comment on above: Type 2 diabetes lon itus with stage 3a chronic kidney disease, with long-term current use of insulin (HCC) ([facility]); Diabetic polyneuropathy associated with type 2 diabetes mellitus ([facility]) Start: 01-03-2024 Influenza vaccination Influenza Vacc ine (#1) [facility] Start: 10-16-2023 Hemoglobin A1c measurement Diabetes: Hemoglobin A1C [facility] Start: 06-24-2023 Patient referral [facility] Work Phone: Start: 03-04-2023 Bacteria identified in Urine by Culture [facility] Start: 12-12-2022 FUV, Provider: Shashi Cottrell, Status: Pen, Time: 3:20 PM FUV, Provider: Shashi Cottrell, Status: Pen, Time: 3:20 PM [facility] 250 DO Work Phone: Start: 01-10-2022 FUV, Provider: Shashi Cottrell, Status: Pen, Time: 2:00 PM FUV, Provider: Shashi Cottrell, Status: Pen, Time: 2:00 PM [facility] 250 DO Work Phone: Start: 07-01-2021 FUV, Provider: Shashi Cottrell, Status: Pen, Time: 8:40 AM FUV, Provider: Shashi Cottrell, Status: Pen, Time: 8:40 AM [facility] [address] [place] Work Phone: Start: 05-28-2021 FUV, Provider: Shashi Cottrell, Status: Pen, Time: 10:50 AM FUV, Provider: Shashi Cottrell, Status: Pen, Time: 10:50 AM [facility] Work Phone: Start: 05-20-2021 ECHO, Provider: CAROLE SHEETS [facility]TR[facility] ,[id number], Status: Pen, Time: 10:45 AM ECHO, Provider: JACEY [facility]TRAS[facility] ,[id number], Status: Pen, Time: 10:45 AM [facility] 250 DO Work Phone: Start: 1955 Screening for malign ant neoplasm of colon [facility] MG Breast - bilatera l Screening [facility] Patient referral [facility] Work Phone: Renal function 2000 panel - Serum or Plasma [facility] Immunizations Immunization Date Immunization Notes Care Provider Fa kg 10-20-2020 pneumococcal polysaccharide vaccine, 23 valent Shaikh Jeison Work Phone: [facility] 250 DO Work Phone: 08-23-2020 COVID-19 Vaccine Mod jasson - Documentation Purposes Only Juan Gonzalez Other [facility] 05-04-2020 pneumococcal conjuga te vaccine, 13 valent Shaikh [facility]awwaalex [facility] Work Phone: Comment on above: Series: 02-03-2020 Influenza, injectabl e, Madin Kyra Canine Kidney, preservative free, quadrivalent Shaikh Jeison [facility] Work Phone: 02-03-2020 influenza virus vacc ine, unspecified formulation Nadja Fulton DPM Work Phone: [facility] 02-09-2019 Vaxneuvance 0.5 ML Intramuscular Suspension Prefilled Syringe [facility]ikh Jeison [facility] Work Phone: 04-05-2017 influenza, injectabl e, quadrivalent, preservative free Shaikh Jeison [facility] Work Phone: Payers Date Payer Category Payer Self-pay [id number] 2022 Medicare [employer] MEDICARE ADVANTAGE [employer] MEDICARE [id number] 2022-Present [address] [place] [id number] 2022 Medicare (Managed Care) [facility] ADVANTAGE [id number] 2022 Medicaid [id number] 2022 Private Health Insurance 1959 Medicare [id number] 1955 Unknown [id number]. 593 1955 Unknown [id number] [id number]. 593 1955 Unknown [id number] [id number]. 593 1955 Unknown [id number] [id number]. 593 1955 Unknown [id number] [id number]. 593 1955 Unknown [id number] [id number]. 593 1955 Unknown [id number] [id number]. 593 1955 Unknown [id number] [id number]. 593 1955 Unknown [id number] [id number]. 593 1955 Unknown [id number] [id number]. 593 1955 Unknown [id number] 2.16.840.1.520874.3.579.2. 593 1955 Unknown [id number] 2.16.840.1.917278.3.579.2. 593 1955 Unknown [id number] 2.16.840.1.106269.3.579.2. 356 1955 Unknown [id number] 2.16.840.1.627233.3.579.2. 356 1955 Unknown [id number] 2.16.840.1.130570.3.579.2. 196 1955 Unknown [id number] 2.16.840.1.443730.3.579.2. 196 1955 Unknown [id number] 2.16.840.1.903211.3.579.2. 196 1955 Unknown [id number] 2.16.840.1.169465.3.579.2. 196 1955 Unknown [id number] 2.16.840.1.338604.3.579.2. 1955 Unknown [id number] 2.16.840.1.504094.3.579.2. 196 1955 Unknown [id number] 2.16.840.1.675376.3.579.2. 1258 1955 Unknown [id number] 2.16.840.1.771895.3.579.2. 1258 1955 Unknown [id number] 2.16.840.1.680398.3.579.2. 1258 1955 Unknown [id number] 2.16.840.1.134144.3.579.2. 1258 1955 Unknown [id number] 2.16.840.1.056507.3.579.2. 1258 1955 Unknown [id number] 2.16.840.1.624177.3.579.2. 1258 1955 Unknown [id number] 2.16.840.1.026875.3.579.2. 1259 Medicare [id number] 2.16.840.1.548325.19 Unknown Unknown [id number] 2.16.840.1.852165.3.579.2. 531 Unknown [id number] 2.16.840.1.481414.3.579.2. 531 Unknown [id number] 2.16.840.1.928368.3.579.2. 531 Social History Date Type Detail Facility Start: 04-09-2023 End: 12-14-2023 Daily caffeine consumption Daily caffeine consumption [facility] Comment on above: 2-3 cups of coffee d aily.; 1/2 pack daily.; Start: 04-09-2023 End: 12-14-2023 Sex Assigned At [facility] Start: 01-24-2021 End: 03-22-2024 Tobacco smoking status NHIS Smoker (finding) [facility] Start: 1955 Sex Assigned At Female F [facility] Start: 12-14-2023 Tobacco smoking stat us FLIS Smokes tobacco daily [facility] History of tobacco use Cigarette Smoker [facility] History of tobacco use Passive smoker [facility] Start: 12-14-2023 Tobacco use and exposure Smokeless tobacco non-user [facility] Start: 12-14-2023 End: 01-06-2024 Alcoholic beverage intake Lifetime non-drinker (finding) [...] Start: 03-15-2024 End: 03-22-2024 Sex Female (finding) [facility] Medical Equipment Procedure Code Equipment Code Equipment Origin al Text Equipment Identifier Dates 1 strip by In Vi tro route 5 (five) times a day [id number] Start: 11-12-2023 End: 11-11-2024 Functional Status Date Assessment Result Facility 07-01-2021 PHQ-9 [id number] Mild (5-9) [facility] DO Work Phone: Clinical Notes 12-03-2019 to 05-24-2024 Note Date & Type Note Facility 05-24-2024 Evaluation note Diagnosis Tobacco dependency- Primary Tobacco use disorder [...] claudication Pulmonary emphysema, unspecified emphysema type (CMS/HCC) Mixed hyperlipidemia (CMS/HCC) Mixed hyperlipidemia documented [id number] History of Present illness Narrative* Nadja Fulton, BERHANE - 01/06/2024 3:30 PM EDT Images from the original note were not included. Subjective Patient ID: Vidhya Ricoraffy is a 68 y.o. female who presents for DM Foot Care (Vidhya Ibarra 68yoNew patient with referral from [place], for Diabetic foot exam, neuropathic. BS 140 A1C7.5 Juan Antonio [place] 12/14/2023 SS 8). HPI Initial patient encounter and assessment. Chief complaint: Presents for assessment of diabetic foot condition and care of thickened deformed and discolored toenails. Patient relates longstanding symptomatic peripheral diabetic neuropathy with concomitant lumbar-sacral radiculopathy; generally well-controlled with gabapentin. Relates chronic toenail deformity of multiple years duration; gradually progressive course. Relateshistory of trauma left great toe several months previous, resulting in partial loss of toenail. Identifies essentially all digits as problematic/somewhat symptomatic, describing pressure discomfort with footwear. Also complains of catching and snagging on clothing, bed sheets etc.. Denies bleeding or drainage. Self care measures are increasingly more difficult, less effective and not practical; increasing risk exposure. Family members unable to provide effective care. There has been no specific treatment to date. Risk factors: IDDM. Diabetic peripheral neuropathy. Medical comorbidities. CKD. Polypharmacy. ASA therapy. Percocet therapy for chronic lumbago. Mobility, flexibility and dexterity restraints. Toenail deformity. Digital and/or shoe trauma and related complications. Medications Current Outpatient Medications: allopurinol (Zyloprim) 100 MG tablet, Take 100 mg by mouth Daily, Disp: , Rfl: allopurinol (Zyloprim) 300 MG tablet, Take 1 tablet by mouth in the morning., Disp: , Rfl: aspirin 81 MG EC tablet, Take 1 tablet by mouth in the morning., Disp: , Rfl: atorvastatin (Lipitor) 40 MG tablet, take 1 tablet by mouth every morning, Disp: 90 tablet, Rfl: 1 bumetanide (Bumex) 0.5 MG tablet, take 1 tablet by mouth once daily, Disp: 90 tablet, Rfl: 1 Rlrkjwjfgxq-Immehgcnb-Jqcdyh (Trelegy Ellipta) 200-62.5-25 MCG/ACT aerosol powder , Inhale 1 puff Daily, Disp: 1 each, Rfl: 1 gabapentin (Neurontin) 600 MG tablet, Take 1 tablet (600 mg) by mouth in the morning and 1 tablet (600 mg) in the evening and 1 tablet (600 mg) before bedtime., Disp: 90 tablet, Rfl: 2 glipiZIDE (Glucotrol) 10 MG tablet, Take 1 tablet (10 mg) by mouth in the morning and 1 tablet (10 mg) in the evening. Take before meals., Disp: 180 tablet, Rfl: 1 Glucose Blood (BLOOD GLUCOSE TEST STRIPS 333 ), 1 strip by In Vitro route 5 (five) times a day, Disp: , Rfl: insulin NPH-insulin regular (NovoLIN 70/30 FlexPen Relion) (70-30) 100 UNIT/ML injection, Inject 20Units under the skin in the morning and 20 Units in the evening. Inject before meals. 7 Insulin pen, 20 subcutaneous q12., Disp: 36 mL, Rfl: 0 losartan-hydroCHLOROthiazide (Hyzaar) 100-25 MG tablet, take 1 tablet by mouth every morning, Disp:90 tablet, Rfl: 1 magnesium oxide (Mag-Ox) 400 (240 Mg) MG tablet, Take 400 mg by mouth in the morning and 400 mg before bedtime., Disp: , Rfl: magnesium oxide (Mag-Ox) 400 MG tablet, Take 1 tablet by mouth Daily, Disp: , Rfl: oxyCODONE-acetaminophen (Percocet) 5-325 MG tablet, Take 1 tablet by mouth every 12 (twelve) hours if needed for severe pain, Disp: , Rfl: PARoxetine (Paxil) 20 MG tablet, take 1 tablet by mouth every morning, Disp: 90 tablet, Rfl: 1 pen needle 31G x 5 mm misc, Inject 1 each under the skin 5 (five) times a day Use as instructed, Disp: , Rfl: pen needle 31G x 5 mm misc, Twice a day, Disp: 200 each, Rfl: 12 pramipexole (Mirapex) 0.25 MG tablet, Take 1 tablet (0.25 mg) by mouth at bedtime, Disp: 90 tablet,Rfl: 1 metoprolol tartrate (Lopressor) 50 MG tablet, Take 1 tablet (50 mg) by mouth in the morning and 1 tablet (50 mg) before bedtime., Disp: 180 tablet, Rfl: 0 traZODone (Desyrel) 100 MG tablet, Take 1.5 tablets (150 mg) by mouth at bedtime, Disp: 135 tablet,Rfl: 0 Allergies Prednisolone and Prednisone Past Surgical History Past Surgical History: Procedure Laterality Date CATARACT EXTRACTION, BILATERAL CHOLECYSTECTOMY DILATION AND CURETTAGE OF UTERUS EYE SURGERY Family History Family History Problem Relation Name Age of Onset Other (Other) Mother Radha Couch Varicose veins Hypertension Mother Radha Couch Heart disease Mother Radha Couch Diabetes Mother Radha Couch Cancer Mother Radha Couch Cancer Father Sara Couch Hypertension Father Sara Couch Diabetes Father Saar Couch Alcohol abuse Father Sara Couch Cancer Child Objective General assessment: Alert and oriented. Pleasant disposition. Vascular: DP 1/4 bilateral. PT 1/4 bilateral. CFT brisk all digits. Gradient temperature: Warm-warm bilateral. Unremarkable for ankle edema. Neurologic: Tactile and light touch sensation is diminished in compromised over the digital areas. 5.07 monofilament: Intact localization multiple points with the exception of bilateral great toes. Dermatologic: Skin turgor is good. Web space areas are clean, dry, non-inflamed. Unremarkable for eczema or dermatitis. Left great toe: Estimate about 60% new nail growth (status post trauma with partial loss of toenail). The nail plate is mildly dystrophic and discolored. Right great toe: DSO/pincer toenail deformity: Toenail dystrophy, thickening, elongation, discoloration; the distal margins are incurvated, keratotic, mildly tender, non-inflamed, without drainage. All remaining digits: Varying degrees of toenail dystrophy, elongation, yellow discoloration, pincer deformity, periungual hyperkeratosis, without drainage. Total with debris: 5th digits bilateral. Unremarkable for ulcerative changes. Orthopedic: Range of motion: Demonstrates functional ankle, subtalar and 1st MTP joint range of motion. Lesion pattern: No forefoot or digital discrete keratotic lesions are noted. Radiology: Assessment/Plan Mildly symptomatic onychodystrophy/mycosis multiple digits. Post-traumatic onychodystrophy left great toe. IDDM. Diabetic peripheral neuropathy (Q9). L5-S1 radiculopathy by history. Plan: Conservative and palliative care measures are mutually agreed upon, understood and indicated.Patient expresses no interest in oral terbinafine therapy, nor is it recommended (polypharmacy). Diabetic education and assessment relative to the high-risk condition. Hygiene and skin care measures discussed as she is able to do so. Procedure: Toenail debridement: Aseptic technique: Hand and power instrumentation: Onychodebridement in length and thickness, with curettage of any cryptotic margins, all periungual debris; providingeffective symptom and pressure relief; reducing shoe and digital trauma; reducing potential risks as sociated with the diabetic neuropathic foot condition and related complications. This note was created with the assistance of a speech recognition program. While intending to generate a timely document that accurately reflects the content of the visit, no guarantee can be provided that every grammatical or spelling mistake has been or will be identified or corrected. Thank you for your understanding. Nadja Fulton DPM documented in this [facility]09-04-2024 Instructions* Patient Instructions* Nadja Fulton DPM - 01/06/2024 3:30 PM EDT Instructions as noted documented in [facility] encounter[facility] HospitalEadojboncn97-70-0034 Evaluation note* Encounter Date Diagnosis Assessment Notes Treatment Notes Treatment Clinical Notes Mar, Diabetes mellitus wi th chronic kidney disease (ICD-10 - E11.22) Continue insulin Levemir. Continue follow with PCP for DM management. Continue losartan. Mar, Chronic kidney disea se, stage III (moderate) (ICD-10 - N18.30) She [...] the follow up with GI Mar, Hyperuricemia (ICD-1 0 - E79.0) She has hyperuricemia due to the CKD but denies any recent gout flare. Will monitor without any medication. Mar, Leukocytosis (ICD-10 - D72.829) She has a persistent leukocytosis due to the unclear etiology. I have referred her to the hematology for further work-up. Mar, Hypomagnesemia (ICD- 10 - E83.42) She has hypomagnesemia due to the diuretics as renal magnesium wasting. I have prescribed oral magnesium once daily. Nixon Other 03-16-2023 NotePAIN MANAGEMENT CONSULTATION CONSULTATION DATE: [...] three months' time unless otherwise indicated.[facility] HospitalUkjnffes09-09-7247 NoteCONSULTATION CONSULTATION DATE: 04/10/2022 HISTORY OF PRESENT [...] weeks ago, and she completed those in [place]. She is continuing her home exercises as [...] Patient does agree with this plan.[facility] HospitalUpbxdemt05-34-0236 NoteCONSULTATION CONSULTATION DATE: 01/09/2022 HISTORY OF PRESENT [...] weeks. Patient prefers to do this in [place]. She will be followed up in the office in three months' time and was encouraged to take a multivitamin daily. Patient agrees with this plan of care. [facility] HospitalUsdyndfu15-05-0057 NoteCONSULTATION CONSULTATION DATE: 10/17/2021 HISTORY OF PRESENT [...] in three months' time unless otherwise indicated. [facility] Signed and Approved by: EVA ROSEN . 10/30/2021 16:23:00[facility]06-16-2022 NoteCONSULTATION PROCEDURE DATE:10/17/2021 PREOPERATIVE [...] will be followed up in the office. [facility] Signed and Approved by: EVA ROSEN . 10/30/2021 16:23:00[facility]01-21-2022 Evaluation note* Encounter Date [...] at this point no intervention is needed. [facility] Other 12-07-2021 Evaluation note* Encounter Date Diagnosis [...] - M50.123) Apr, Cardiomegaly (ICD-10 - I51.7) [facility] Other 01-15-2021 History of Present illness Narrative* [...] will follow-up after testing is completed [facility] Work Phone: 1(982) 994-836101-10-2021 History of Present illness Narrative* Patient is [...] she will follow-up after testing [facility] Work Phone: 1(199) 750-446308-01-2020 History general Narrative - Reported* Type Description Date Medical History TYPE II DIABETES Medical History HYPERTENSION Medical History ENLARGE HEART Surgical History CHOLECYSTECTOMY Hospitalization History PNEUMONIA 12/2019 [facility] Other chief complaint Narrative - ReportedLINDA FRED is being seen for a consultation for cardiomegaly.[facility] 250 DO Work Phone: Chipq complaint Narrative - ReportedLINCRISTINA IBARRA is being seen for a consultation for cardiomegaly.[facility] Work Phone: Consult note Author Yakelin Canalesrussell medical centerjuan pablo [facility] March 25, 2023 10:10am Note Date/Time March 24, 2023 1:49pm [facility] [place] [address] Hem/Onc Consult Note - OP Signed Patient: Vidhya Ibarra MR#: [id number] : 1955 Acct:[id number] Age/Sex: 67 / F Type: REG RCR [...] any worse than it does when touched. [facility] - Medical History Medical History: Medical [...] for coordination of care (as documented) and daqg-eh-hryl counseling of patient and/or family. Dictated By: Yakelin Staley APRN DD/ 1349 Signed By: <Electronically signed by JOSE Staley> 03/25/23 1010 [facility] Work Phone: Evaluation noteNo assessment information available [facility] Work Phone: Evaluation noteNo InformationNort SHEEX Other Evaluation note* Diagnosis Onset Date Resolution Status Leukocytosis acute Breast nodule acute Leukocytosis acute Recurrent boils acute Yeast infection acute [facility] Work Phone: Evaluation note* Diagnosis Onset Date Resolution Status Breast nodule acute Leukocytosis acute Recurrent boils acute Yeast infection acute Leukocytosis acute Breast nodule acute Leukocytosis acute Recurrent boils acute Yeast infection acute [facility] Work Phone: Evaluation note* Diagnosis Tobacco dependency- Primary Tobacco use [...] diabetes mellitus (CMS/HCC) documented in this encounter [facility]* Diagnosis Onset Date Resolution Status Admit Date CKD (chronic kidney disease) stage 3, GFR 30-59 ml/min acute March 11:14am Hepatic cyst acute March 11:14am Hypertensive chronic kidney disease with stage 1 through stage 4 chronic ki acute March 22, 2 024 11:14am Hyperuricemia acute March 222023 11:14am Hypomagnesemia acute March 042023 11:14am Leukocytosis acute March 11:14am Secondary hyperparathyroidism acute March 22, 2024 11:14am Type 2 diabetes mellitus wit h diabetic chronic kidney disease acute March 22, 2024 11:14am [facility] Work Phone: Evaluation note* Diagnosis Moderate episode of recurrent major depressive disorder (CMS/HCC) documented in this encounter [facility] HealthcareEvaluation note* Diagnosis Dermatophytosis of nail- Primary Type 2 diabetes mellitus with stage 3a chronic kidney disease, with long-term current use of insulin (HCC) (CMS/HCC) Diabetic polyneuropathy associated with type 2 diabetes mellitus (CMS/HCC) Dystrophic nail Other specified disease of nail documented in this encounter [facility] note* Diagnosis Type 2 diabetes mellitus with stage 3a chronic kidney disease, with long-term current use of insulin (HCC) (CMS/HCC) documented in this encounter [facility]* Diagnosis Tobacco dependency- Primary Tobacco use [...] [facility] Diagnosis Tobacco dependency- Primary Tobacco use [...] claudication Pulmonary emphysema, unspecified emphysema type (CMS/HCC) Chronic diastolic congestive heart failure (CMS/HCC) Primary hypertension (CMS/HCC) Unspecified essential hypertension [facility] Narrative* Patient returns [...] weight loss and more importantly smoking cessation. -[facility] DO Work Phone: Hospital Discharge instructionsAmbulatory Orders* Referral to General Surgery Time Frame: 06/24/23, Location: None Selected [facility] Work Phone: Progress note Author Rebeca Ashraf [facility] June 24, 2023 10:45am Note Date/Time June 24, 2023 10:07am [place] [address] Cancer Center Note Signed Patient: Vidhya Ibarra MR#: [id number] : 1955 Acct:[id number] Age/Sex: 67 / F Type: REG AMB [...] % (Auto) 74.3 Lymph % (Auto) 18.0 Toombs % (Auto) 5.2 Eos % (Auto) 1.7 Baso % (Auto) 0.8 Nucleat RBC Rel Count 0.1 Neut # (Auto) 10.6 H Lymph # (Auto) 2.6 Toombs # (Auto) 0.7 Eos # (Auto) 0.2 [...] signed by Rebeca Ashraf MD> 06/24/23 1045 [facility] Work Phone: Summary Purpose Family History Unknown [...] Treat Diagnosis 1 Cardiomegaly (I51.7) Referral Organization [facility] urosurgery Referring Provider First Name Juan Referring Provider Last Name Carlos Referring Provider Specialty Neurologica l Surgery Referred Organization [facility] Referred Provider Jason Johnson Referred Address [address] [facility] [address] [place] [address] Referred Provider Specialty Cardiac Surg nicholas Referral Priority Routine General Notes Fore, Neena M 021 08:49:37 AM >Received today and waiting for office notes to be lockedNeena Estevez 04/16/2021 03:27:00 PM >[facility] office request us to fax the referral to them and they will review and call patient to schedule their appointment. Referral was fax Reason Evaluate and Treat Diagnosis 1 Cervical disc disord er at C5-C6 level with radiculopathy (M50.122) Referral Organization [facility] urosurgery Referring Provider First Name Juan Referring [...] and content) DATE CREATED AUTHOR 12/03/2019 [facility] DATE CREATED AUTHOR AUTHOR'S ORGANIZ ATION 05/26/2021 [facility] DATE CREATED AUTHOR AUTHOR'S ORGANIZ ATION 10/10/2022 [facility] DATE CREATED AUTHOR AUTHOR'S ORGANIZ ATION 12/08/2022 [facility] ical Center DATE CREATED AUTHOR AUTHOR'S ORGANIZ ATION 12/09/2022 [facility] DATE CREATED AUTHOR AUTHOR'S ORGANIZ ATION 10/13/[address] [facility] DATE CREATED AUTHOR AUTHOR'S ORGANIZ ATION 01/08/2024 [facility] EPIC DATE CREATED AUTHOR AUTHOR'S ORGANIZ ATION 03/15/2024 [facility] REASON FOR VISIT (unrecogniz ed section and content) Reason Onset Date Comments Med Refill 02/15/2024 Reason Onset Date Comments Med Refill 01/18/2024 Reason Comments DM Foot Care Vidhya Ricoraffy 68yo New patient with referral from [place], for Diabetic foot exam, neuropathic. BS 140 A1C7.5 Juan Antonio Carver 12/14/2023 SS 8 Specialty Diagnoses / Procedures Referred By Nicolas larios Referred To Contact Podiatry Diagnoses Type 2 diabetes mellitus with stage 3a chronic kidney disease, with long-term current use of insulin (HCC) ([facility]) Diabetic polyneuropathy associated with type 2 diabetes mellitus ([facility]) Procedures [place] OFFICE/OUTPATIENT NEW HIGH MDM 60 MINUTES Juan Antonio Carver, DENA [address] [place] [address] Alysia Rhodes, DPM [address] [place] [address] Referral ID Status Reason Start Date Expiration Date V isits Requested Visits Authorized [id number] Closed Specialty Services Required 12/14/2023 06/11/2024 1 1 Reason Onset Date Comments Med Refill 01/11/2024 Reason Comments Med Refill Reason Onset Date Comments Med Refill 05/12/2024 Reason Onset Date Comments Med Refill 05/24/2024 Care Teams (unrecognized sec tion and content) [...] September 12, 2023 End: September 12, 2023 Pointing Machine Operator Relationship Specialty Start Date End Date Shaikh Mchugh MD [address] [place] [phone] PCP - General Internal Medicine 07/03/23 Team Status: Active Member Role Status Dates MADAY Peña Primary Care Provider Ac tive Team Status: Inactive Member Role Status Dates Juan Antonio Carver NP-Nilo Primary Care Provider Ac tive Start: March 14, 2024 End: March 14, 2024 Alta Schmid MD Attending Provider Active Start : March 14, 2024 End: March 14, 2024 Team Status: Inactive Member Role Status Dates Alta Schmid MD Attending Provider Active Start : March 22, 2024 End: March 22, 2024 MADAY Peña Primary Care Provider Ac tive Start: March 22, 2024 End: March 22, 2024 Pointing Machine Operator Relationship Specialty Start Date End Date Shaikh Mchugh MD [address] [place] [address] PCP - General Internal Medicine 07/03/23 Pointing Machine Operator Relationship Specialty Start Date End Date Shaikh Mchugh MD [address] [place] [phone] PCP - General Internal Medicine 07/03/23 Pointing Machine Operator Relationship Specialty Start Date End Date Shaikh Mchugh MD [address] [place] [phone] PCP - General Internal Medicine 07/03/23 Pointing Machine Operator Relationship Specialty Start Date End Date Gaetano Andrea MD [address] [place] [phone] PCP - General Family Medicine 04/18/24 Juan Antonio Carver NP [address] [place] [phone] Nurse Practitioner Family Medicine 04/18/24 Pointing Machine Operator Relationship Specialty Start Date End Date Gaetano Andrea MD [address] [place] [phone] PCP - General Family Medicine 04/18/24 Juan Antonio Carver NP [address] [place] [phone] Nurse Practitioner Family [facility] 04/18/24 Pointing Machine Operator Relationship Specialty Start Date End Date Gaetano Andrea MD [address] [place] [phone] PCP - General Family [facility] 04/18/24 Juan Antonio Carver NP [address] [place] [phone] Nurse Practitioner Family Medicine 04/18/24 Goals (unrecognized section and content) Goals may [...] BE BASED ON THE PRIMARY CLINICAL RECORDS. [facility], [facility]. provides no warranty or guarantee of the accuracy or completeness of information in this document.
--- NOTE | 2024-07-14 14:38 | PM.CN ---
Consult Note: HPI Data of Consult Patient: known to practice within the last 3 years Requesting Physician: Renate Flores NP Primary Care Provider: Non-Staff Physician, MD Consult Narrative Reason for consult: f/u Narrative: Vidhya Pillai 68 year old female presents for evaluation of chronic back pain and BLE pain. Since last visit pt has decided not to proceed with spinal cord stimulator trial due to fears of sedation and an implanted device. Pain today 5/10 increasing with standing, walking, twisting, pushing, pulling, and activity. Pt finds benefit to gabapentin 600mg TID and percocet 5-325mg BID PRN, without side effects. She did not increase gabapentin 600mg QID as previously instructed. cc:: CC: Renate Flores NP Review of Systems ROS Status of ROS 10 or more systems reviewed and unremarkable except as noted in history and below Musculoskeletal Reports: back pain and extremity pain PFSH PFSH Medical History Osteoarthritis ?M19.90 - Unspecified osteoarthritis, unspecified site (ICD-10) Low back pain ?M54.50 - Low back pain, unspecified (ICD-10) Numbness and tingling ?R20.0 - Anesthesia of skin (ICD-10) ?R20.2 - Paresthesia of skin (ICD-10) Diabetes ?E11.9 - Type 2 diabetes mellitus without complications (ICD-10) Smoker ?F17.200 - Nicotine dependence, unspecified, uncomplicated (ICD-10) COPD (chronic obstructive pulmonary disease) ?J44.9 - Chronic obstructive pulmonary disease, unspecified (ICD-10) Angina at rest ?I20.8 - Other forms of angina pectoris (ICD-10) Hypertension ?I10 - Essential (primary) hypertension (ICD-10) Surgical History History of cholecystectomy ?Z90.49 - Acquired absence of other specified parts of digestive tract (ICD-10) S/P dilatation and curettage ?Z98.890 - Other specified postprocedural states (ICD-10) H/O cardiac catheterization ?Z98.890 - Other specified postprocedural states (ICD-10) Meds Home Medications and Allergies Home Medications ?Medication ?Instructions ?Recorded ?Confirmed ?Type gabapentin 600 mg tablet 600 mg PO TID 06/15/23 06/03/24 History glipizide 10 mg tablet 10 mg PO BID 10/16/22 10/05/23 History insulin NPH isoph U-100 human 100 20 unit subcut BID 10/16/22 10/05/23 History unit/mL subcutaneous suspension (Novolin N NPH U-100 Insulin isophane) metoprolol tartrate 50 mg tablet 50 mg PO BID 10/16/22 10/05/23 History paroxetine HCl 10 mg tablet 10 mg PO DAILY 10/16/22 10/05/23 History pramipexole 0.25 mg tablet 0.25 mg PO DAILY 10/16/22 10/05/23 History (Mirapex) trazodone 150 mg tablet 150 mg PO BEDTIME 10/16/22 10/05/23 History atorvastatin 40 mg tablet (Lipitor) 40 mg PO DAILY 04/16/23 10/05/23 History bumetanide 0.5 mg tablet 0.5 mg PO DAILY 04/16/23 10/05/23 History magnesium oxide 400 mg (241.3 mg mg 06/01/23 History magnesium) tablet allopurinol 200 mg tablet 200 mg PO DAILY 09/21/23 10/05/23 History naloxone 4 mg/actuation nasal 4 mg intranasal Q2M #2 ea 03/10/24 Rx spray (Narcan) oxycodone-acetaminophen 5 mg-325 1 tab PO BID PRN pain #60 tabs 03/16/24 Rx mg tablet (Percocet) oxycodone-acetaminophen 5 mg-325 1 tab PO BID PRN pain #60 tabs 04/13/24 Rx mg tablet (Percocet) oxycodone-acetaminophen 5 mg-325 1 tab PO BID PRN pain #60 tabs 05/12/24 Rx mg tablet (Percocet) oxycodone-acetaminophen 5 mg-325 1 tab PO BID PRN pain #60 tabs 06/13/24 Rx mg tablet (Percocet) Allergies Allergy/AdvReac Type Severity Reaction Status Date / Time prednisone Allergy Intermediate Rash Verified 10/05/23 08:00 Exam Constitutional Documenting provider has reviewed patient's vital signs: yes Common normals: no apparent distress, oriented x3, healthy appearing, alert and well nourished General appearance: cooperative Orientation/consciousness: Yes awake, Yes oriented to person, Yes oriented to place and Yes oriented to time HENMT Common normals: normocephalic, hearing grossly normal bilaterally and moist oral mucous membranes Head and scalp: normocephalic Eye Common normals: PERRL Pupil: PERRL Neck & C-Spine Common normals: full ROM General: normal visual inspection Chest Common normals: inspection of chest normal Respiratory Common normals: normal respiratory effort, no retractions and no use of accessory muscles Effort & inspection: able to speak in complete sentences and symmetric chest movement Back & Pelvis Lumbar spine/lower back: ROM limited, pain with ROM and straight leg raise positive right Sacroiliac joints: SI joints normal Other: bilateral facet loading mild on left decreased sensation to left L4,5,S1 pattern strength 4/5 in BLE increased pain with standing and walking, improved with sitting and forward flexion Extremity Common normals: normal to inspection and full ROM Neuro Common normals: oriented x3, CN's II-XII intact bilaterally, moves all extremities, no focal motor deficits, no sensory deficits noted and deep tendon reflexes 2+ bilaterally Sensorium/orientation: alert Motor exam: strength 5/5 throughout and no movement abnormalities noted Psych Common normals: mental status grossly normal, thought process normal, cooperative, affect normal, speech normal and activity/motor behavior normal Speech: normal speech Thought process: normal thought process Results Additional Findings Additional findings: If on a controlled substance or opioids, I have checked an OAR[place] report on this patient and there are no aberrancies noted in the prescribing history.??If on a controlled substance or opioid a drug screen was completed and reviewed within the last year, and if there has not been a drug screen completed we ordered one today to monitor higher risk, state monitored pain medication use. As part of providing excellent, safe, comprehensive care, the following was completed at our patient's visit: 1. A medication reconciliation and review to ensure accurate knowledge of current/active medications, including asking our patients to inform us about any [id number] medications or herbal remedies/nutritional supplements/alternative remedies. 2. A review to specifically ensure our patients have had annual screening for screening for depression, screening for tobacco use, and screening for unhealthy alcohol use. For concerning screenings had a discussion with the patient, provided patient education, and recommended follow-up with primary care provider when appropriate. If patient noted with a risk of falling, they received education on strength, gait, and balance training to prevent future risk of falling. Portions of this note may have been carried over from the previous visit and updated as appropriate. Please note this office utilizes paper charting in addition to the electronic medical record. A list of current medications, vitals, and PMH is available there as the clinical staff outside of myself do not have access to Dr. [employer] charting during the clinic day operations. As part of providing quality comprehensive care the current medications, vitals, and PMH were reviewed in the paper chart. 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 The patient does not report intolerable side effects. The patient is NOT opioid naive and non-pharmacologic and non-opioid treatment has failed to significantly relieve the patient's pain and improve functionality. The patient has a diagnosis that is related to a somatic or visceral pain etiology. ? ?? I reviewed with the patient the potential risks and side effects with the use of? opioid medications including but not limited to respiratory depression,? sedation, and even . I verified the patient has access to naloxone should? these effects occur. I advised the patient to avoid the use of any other? sedation substances including alcohol, THC, and benzodiazepines while? taking opioid medications due to the risk of compounding side effects and? detrimental outcomes. I reviewed the HEALTH AND PHYSICAL EDUCATION PROFESSOR, pain treatment agreement, urine? drug screen, and opioid start talking forms. The patient was advised to let? their family know they had Naloxone in case they would need to administer? the medication.? ?? A drug screen was completed within the last year, and no aberrancies were noted regarding their use of controlled substances. The patient understands they are subject to the terms and conditions of the pain contract that they have signed. ? ?? I have checked an OARRS report on this patient today and there are no aberrancies noted in the prescribing history.? (6) Degenerative disc disease: Plan increase gabapentin 600mg QID, continue percocet 5-325mg BID PRN moderate to severe pain. tolerating without side effects. continues to notice improvement and pain and functional ability narcan previously prescribed and available at home continue HEP as tolerated f/u 3 months, sooner if needed
== END 2024-07-14 13:40 | disposition home or self-care (01) ==
PROVIDERS: Visit Provider Nurse Practitioner
DX: M48.062 Spinal stenosis, lumbar region with neurogenic claudication (principal); M47.816 Spondylosis without myelopathy or radiculopathy, lumbar region; M62.838 Other muscle spasm; M24.28 Disorder of ligament, vertebrae; Z79.891 Long term (current) use of opiate analgesic; M51.369 Other intervertebral disc degeneration, lumbar region without mention of lumbar back pain or lower extremity pain
CPT/HCPCS: G0463

== ENCOUNTER 2024-10-13 13:19 | Outpatient (OUT) | payer MEDICARE, SELFPAY ==
--- NOTE | 2024-10-13 14:04 | PM.CN ---
Consult Note: HPI Data of Consult Patient: known to practice within the last 3 years Requesting Physician: Renate Flores NP Primary Care Provider: Non-Staff Physician, MD Consult Narrative Reason for consult: f/u Narrative: Vidhya Pillai 68 year old female presents for evaluation of chronic back pain and BLE pain secondary to lumbar spondylosis, lumbar stenosis with NC, and painful diabetic polyneuropathy. Pain today 6/10 increasing with standing, walking, twisting, pushing, pulling, and activity. Pt findsm mild benefit to gabapentin 600mg 1ID and percocet 5-325mg BID PRN, without side effects. FERNANDEZ 64% worsening since last visit. cc:: CC: Renate Flores NP Review of Systems ROS Status of ROS 10 or more systems reviewed and unremarkable except as noted in history and below Musculoskeletal Reports: back pain and extremity pain PFSH PFSH Medical History Osteoarthritis ?M19.90 - Unspecified osteoarthritis, unspecified site (ICD-10) Low back pain ?M54.50 - Low back pain, unspecified (ICD-10) Numbness and tingling ?R20.0 - Anesthesia of skin (ICD-10) ?R20.2 - Paresthesia of skin (ICD-10) Diabetes ?E11.9 - Type 2 diabetes mellitus without complications (ICD-10) Smoker ?F17.200 - Nicotine dependence, unspecified, uncomplicated (ICD-10) COPD (chronic obstructive pulmonary disease) ?J44.9 - Chronic obstructive pulmonary disease, unspecified (ICD-10) Angina at rest ?I20.8 - Other forms of angina pectoris (ICD-10) Hypertension ?I10 - Essential (primary) hypertension (ICD-10) Surgical History History of cholecystectomy ?Z90.49 - Acquired absence of other specified parts of digestive tract (ICD-10) S/P dilatation and curettage ?Z98.890 - Other specified postprocedural states (ICD-10) H/O cardiac catheterization ?Z98.890 - Other specified postprocedural states (ICD-10) Meds Home Medications and Allergies Home Medications ?Medication ?Instructions ?Recorded ?Confirmed ?Type gabapentin 600 mg tablet 600 mg PO QID 10/16/22 08/05/24 History glipizide 10 mg tablet 10 mg PO BID 10/16/22 10/05/23 History insulin NPH isoph U-100 human 100 20 unit subcut BID 10/16/22 10/05/23 History unit/mL subcutaneous suspension (Novolin N NPH U-100 Insulin isophane) metoprolol tartrate 50 mg tablet 50 mg PO BID 10/16/22 10/05/23 History paroxetine HCl 10 mg tablet 10 mg PO DAILY 10/16/22 10/05/23 History pramipexole 0.25 mg tablet 0.25 mg PO DAILY 10/16/22 10/05/23 History (Mirapex) trazodone 150 mg tablet 150 mg PO BEDTIME 10/16/22 10/05/23 History atorvastatin 40 mg tablet (Lipitor) 40 mg PO DAILY 04/16/23 10/05/23 History bumetanide 0.5 mg tablet 0.5 mg PO DAILY 04/16/23 10/05/23 History magnesium oxide 400 mg (241.3 mg mg 06/01/23 History magnesium) tablet allopurinol 200 mg tablet 200 mg PO DAILY 09/21/23 10/05/23 History naloxone 4 mg/actuation nasal 4 mg intranasal Q2M #2 ea 03/10/24 Rx spray (Narcan) oxycodone-acetaminophen 5 mg-325 1 tab PO BID PRN pain #60 tabs 07/14/24 Rx mg tablet (Percocet) oxycodone-acetaminophen 5 mg-325 1 tab PO BID PRN pain #60 tabs 08/11/24 Rx mg tablet (Percocet) gabapentin 600 mg tablet 600 mg PO QID #120 tabs 09/07/24 Rx oxycodone-acetaminophen 5 mg-325 1 tab PO BID PRN pain #60 tabs 09/07/24 Rx mg tablet (Percocet) Allergies Allergy/AdvReac Type Severity Reaction Status Date / Time prednisone Allergy Intermediate Rash Verified 10/05/23 08:00 Exam Constitutional Documenting provider has reviewed patient's vital signs: yes Common normals: no apparent distress, oriented x3, healthy appearing, alert and well nourished General appearance: cooperative Orientation/consciousness: Yes awake, Yes oriented to person, Yes oriented to place and Yes oriented to time HENNV Common normals: normocephalic, hearing grossly normal bilaterally and moist oral mucous membranes Head and scalp: normocephalic Eye Common normals: PERRL Pupil: PERRL Neck & C-Spine Common normals: full ROM General: normal visual inspection Chest Common normals: inspection of chest normal Respiratory Common normals: normal respiratory effort, no retractions and no use of accessory muscles Effort & inspection: able to speak in complete sentences and symmetric chest movement Back & Pelvis Lumbar spine/lower back: ROM limited, pain with ROM and straight leg raise positive right Sacroiliac joints: SI joints normal Other: bilateral facet loading mild on left decreased sensation to left L4,5,S1 pattern strength 4/5 in BLE increased pain with standing and walking, improved with sitting and forward flexion Extremity Common normals: normal to inspection and full ROM Neuro Common normals: oriented x3 Sensorium/orientation: alert Motor exam: strength 5/5 throughout and no movement abnormalities noted Psych Common normals: mental status grossly normal, thought process normal, cooperative, affect normal, speech normal and activity/motor behavior normal Speech: normal speech Thought process: normal thought process Results Additional Findings Additional findings: If on a controlled substance or opioids, I have checked an OARRS report on this patient and there are no aberrancies noted in the prescribing history.??If on a controlled substance or opioid a drug screen was completed and reviewed within the last year, and if there has not been a drug screen completed we ordered one today to monitor higher risk, state monitored pain medication use. As part of providing excellent, safe, comprehensive care, the following was completed at our patient's visit: 1. A medication reconciliation and review to ensure accurate knowledge of current/active medications, including asking our patients to inform us about any [id number] medications or herbal remedies/nutritional supplements/alternative remedies. 2. A review to specifically ensure our patients have had annual screening for screening for depression, screening for tobacco use, and screening for unhealthy alcohol use. For concerning screenings had a discussion with the patient, provided patient education, and recommended follow-up with primary care provider when appropriate. If patient noted with a risk of falling, they received education on strength, gait, and balance training to prevent future risk of falling. Portions of this note may have been carried over from the previous visit and updated as appropriate. Please note this office utilizes paper charting in addition to the electronic medical record. A list of current medications, vitals, and PMH is available there as the clinical staff outside of myself do not have access to [employer] charting during the clinic day operations. As part of providing quality comprehensive care the current medications, vitals, and PMH were reviewed in the paper chart. Assessment and Plan Assessment and Plan (1) Painful diabetic neuropathy: Assessment and Plan: pt has failed gabapentin 600mg QID, duloxetine, paxil, and topical lidocaine to manage DPN. Would recommend pt undergo [place] [employer] spinal cord stimulator trial with 2 leads to improve pain and functional ability. risks vs benefits reviewed. procedure to be completed under fluoroscopy with MAC sedation. 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 The patient does not report intolerable side effects. The patient is NOT opioid naive and non-pharmacologic and non-opioid treatment has failed to significantly relieve the patient's pain and improve functionality. The patient has a diagnosis that is related to a somatic or visceral pain etiology. ? ?? I reviewed with the patient the potential risks and side effects with the use of? opioid medications including but not limited to respiratory depression,? sedation, and even . I verified the patient has access to naloxone should? these effects occur. I advised the patient to avoid the use of any other? sedation substances including alcohol, THC, and benzodiazepines while? taking opioid medications due to the risk of compounding side effects and? detrimental outcomes. I reviewed the PRODUCTION UTILITY WORKER, pain treatment agreement, urine? drug screen, and opioid start talking forms. The patient was advised to let? their family know they had Naloxone in case they would need to administer? the medication.? ?? A drug screen was completed within the last year, and no aberrancies were noted regarding their use of controlled substances. The patient understands they are subject to the terms and conditions of the pain contract that they have signed. ? ?? I have checked an OARRS report on this patient today and there are no aberrancies noted in the prescribing history.? (7) Degenerative disc disease: Plan increase gabapentin 900mg QID, continue percocet 5-325mg BID PRN moderate to severe pain. tolerating without side effects. continues to notice improvement and pain and functional ability narcan previously prescribed and available at home continue HEP as tolerated pt to complete psychiatric evaluation prior to spinal cord stimulator trial f/u for lead removal in office
== END 2024-10-13 13:20 | disposition home or self-care (01) ==
PROVIDERS: Visit Provider Nurse Practitioner
DX: M48.062 Spinal stenosis, lumbar region with neurogenic claudication (principal); M47.816 Spondylosis without myelopathy or radiculopathy, lumbar region; M62.838 Other muscle spasm; M24.28 Disorder of ligament, vertebrae; Z98.891 History of uterine scar from previous surgery; M51.369 Other intervertebral disc degeneration, lumbar region without mention of lumbar back pain or lower extremity pain
CPT/HCPCS: G0463

== ENCOUNTER 2024-10-28 07:24 | Outpatient (OUT) | payer MEDICARE, SELFPAY ==
--- OUTSIDE RECORDS SUMMARY | 2024-10-28 07:30 | XMS_ITS | Clinical Summary ---
Author Organization [facility] Address [address] [place] [address] Phone Care Team Providers Care Vp Human Resources Name Role Phone Shaikh ALO Mchugh Primary Care Provider [phone] Social History Tobacco Use Types Packs/Day Years Used Date Smoking Tobacco: Never Assessed PHQ-2 Answer Date Recorded Patient Health Questionnaire-2 Score 2 07/01/2021 Comments Unknown Sex and Gender Information Value Date Recorded Sex Assigned at Not on file Legal Sex Female 11:16 AM EST Gender Identity Not on file Sexual Orientation Not on file Last Filed Vital Signs Vital Sign Reading Time Taken Comments Blood Pressure 108/60 12/08/2022 8:41 AM EDT Pulse 66 12/08/2022 8:41 AM EDT Temperature - - Respiratory Rate - - Oxygen Saturation - - Inhaled Oxygen Concentration - - Weight 84.4 kg (186 lb) 12/08/2022 8:41 AM EDT Height 160 cm (5' 3 ) 12/08/2022 8:41 AM EDT Body Mass Index 32.95 12/08/2022 8:41 AM EDT Plan of Treatment Health Maintenance Due Date Last Done Comments Bone Density Scan 1955 CT Colonography 1955 Colonoscopy 1955 Colorectal Cancer Screening 1955 FIT-DNA (Cologuard) 1955 FIT 1955 Lipid Panel 1955 Sigmoidoscopy 1955 Skin Cancer Screening 1955 Yearly Adult Physical 1955 Hepatitis C Screening 11/17/1973 DTaP/Tdap/Td Vaccines (1 - Tdap) 11/17/1977 Mammogram 1995 Pneumococcal Vaccine (1 of 1 - PCV) 11/17/2005 Zoster Vaccines (1 of 2) 11/17/2005 COVID-19 Vaccine (1 - 2023-2 5 season) 2024 Influenza Vaccine (Season Ended) 2025 RSV High Risk: (Elderly (60+ ) or Population) (1 - 1-dose 75+ series) 11/17/2030 HIB Vaccines Aged Out No longer eligi ble based on patient's age to complete this topic HPV Vaccines (No Doses Required) Completed Hepatitis A Vaccines Aged Out No long er eligible based on patient's age to complete this topic Hepatitis B Vaccines Aged Out No long er eligible based on patient's age to complete this topic IPV Vaccines Aged Out No longer eligi ble based on patient's age to complete this topic Meningococcal Vaccine Aged Out No zoila tamiko eligible based on patient's age to complete this topic Rotavirus Vaccines Aged Out No longer eligible based on patient's age to complete this topic Care Teams Vp Human Resources Relationship Specialty Start Date End Date Shaikh Mchugh MD PCP - General 05/04/20
--- OUTSIDE RECORDS SUMMARY | 2024-10-28 07:30 | XMS_ITS | Referral Summary ---
Author Organization [facility] Address [address] [place] [address] Care Team Providers Care Build Engineer Name Role Phone Unavailable Primary Care Provider Unavailabl e Social History Tobacco Use Types Packs/Day Years Used Date Smoking Tobacco: Never Assessed Comments Unknown Sex and Gender Information Value Date Recorded Sex Assigned at Not on file Legal Sex Female 11:40 PM EDT Gender Identity Not on file Sexual Orientation Not on file Plan of Treatment Not on file
--- OUTSIDE RECORDS SUMMARY | 2024-10-28 07:30 | XMS_ITS | Encounter Summary ---
Author Organization [facility] Address [address] [place] [address] Care Team Providers Care Legal Services Professional Name Role Phone Gaetano Andrea MD Primary Care Provider [phone] Marilee Carver [employer]SPORT AIRCREWMAN Unavailable [phone] Reason for Visit * Reason Comments Med Refill Encounter Details Date Type Department Care Team (Late Contact Info) Description 10/21/2024 Refill [facility] [address] [place] [address] Gaetano Andrea MD [address] [place] [id number] Type 2 diabetes mellitus with stage 3a chronic kidney disease, with long-term current use of insulin (HCC) Social History Tobacco Use Types Packs/Day Years Used Date Smoking Tobacco: Every Day Cigarettes 0.5 50 Passive Smoke Exposure: Current Smokeless Tobacco: Never Alcohol Use Standard Drinks/Week Comments Never 0 (1 standard drink = 0.6 oz pur e alcohol) Humiliation, Afraid, Rape, and Kick questionnair e Answer Date Recorded Within the last year, have y ou been afraid of your partner or ex-partner? No 04/09/2023 Within the last year, have y ou been humiliated or emotionally abused in other ways by your partner or ex-partner? No Within the last year, have y ou been kicked, hit, slapped, or otherwise physically hurt by your partner or ex-partner? No 04/09/2023 Within the last year, have y ou been raped or forced to have any kind of sexual activity by your partner or ex-partner? No 04/09/2023 Social Connection and Isolation Panel [NHANES] A nswer Date Recorded In a typical week, how many times do you talk on the phone with family, friends, or neighbors? Once a week 04/09/2023 How often do you get together with friends or re latives? Once a week 04/09/2023 How often do you attend religious or scientologist serv ices? Never 04/09/2023 Do you belong to any clubs o r organizations such as religious groups, unions, fraternal or athletic groups, or school groups? No 04/09/2023 How often do you attend meet ings of the clubs or organizations you belong to? Never 04/09/2023 Are you , , di vorced, , never , or living with a partner? 04/09/2023 AUDIT-C Answer Date Recorded Q1: How often do you have a drink containing alcohol? Never 04/09/2023 Q2: How many drinks containi ng alcohol do you have on a typical day when you are drinking? Patient does not drink Q3: How often do you have si x or more drinks on one occasion? Never 04/09/2023 Overall Financial Resource Strain (CARDIA) Answe r Date Recorded How hard is it for you to pa y for the very basics like food, housing, medical care, and heating? Not hard at all 04/09/2023 PHQ-2 Answer Date Recorded Patient Health Questionnaire-2 Score 0 12/14/2023 [facility] - Occupational Stress Questionnaire Answer Date Recorded Do you feel stress - tense, restless, nervous, or anxious, or unable to sleep at night because your mind is troubled all the time - these days? Only a little 04/09/2023 Exercise Vital Sign Answer Date Recorde d On average, how many days pe r week do you engage in moderate to strenuous exercise (like a brisk walk)? 0 days 04/09/2023 On average, how many minutes do you engage in exercise at this level? 10 min 04/09/2023 Hunger Vital Sign Answer Date Recorded Within the past 12 months, y ou worried that your food would run out before you got the money to buy more. Never true 04/09/20 23 Within the past 12 months, t he food you bought just didn't last and you didn't have money to get more. Never true 04/09/2023 PRAPARE - Transportation Answer Date Re corded In the past 12 months, has l ack of transportation kept you from medical appointments or from getting medications? No 11/2022 In the past 12 months, has l ack of transportation kept you from meetings, work, or from getting things needed for daily living? No 04/09/2023 Housing Stability Vital Sign Answer Naveen e Recorded In the last 12 months, was t here a time when you were not able to pay the mortgage or rent on time? No 04/09/2023 In the last 12 months, how many places have you lived? 1 04/09/2023 In the last 12 months, was t here a time when you did not have a steady place to sleep or slept in a alf (including now)? No 04/09/2023 Comments Unknown Sex and Gender Information Value Date Recorded Sex Assigned at Not on file Legal Sex Female 8:13 PM EDT Gender Identity Not on file Sexual Orientation Not on file documented as of this encounter Plan of Treatment Upcoming Encounters Date Type Department Care Team (Late st Contact Info) Description 11/02/2024 10:00 AM EDT Office Visit [facility] [address] [place] [address] Coni Osorio NP [address] [place] [phone] documented as of this encounter Visit Diagnoses Diagnosis Type 2 diabetes mellitus with stage 3a chronic kidney disease, with long-term current use of insulin (HCC) documented in this encounter Care Teams Legal Services Professional Relationship Specialty Start Date End Date Gaetano Andrea MD [address] [place] [phone] PCP - General Family Medicine 04/18/24 Marilee Carver NP [address] [place] [address] Nurse Practitioner Family Medicine 04/18/24 documented as of this encounter
--- OUTSIDE RECORDS SUMMARY | 2024-10-28 07:30 | XMS_ITS | Encounter Summary ---
Author Organization [facility] Address [address] [place] [address] Care Team Providers Care Hoseman Name Role Phone Shaikh ALO Mchugh Primary Care Provider [phone] Shaikh ALO Mchugh Primary Care Provider [phone] Gaetano Andrea MD Primary Care Provider Marilee Carver PACKAGE CAR DRIVER Unavailable [phone] Encounter Details Date Type Department Care Team (Late st Contact Info) Description 06/15/2023 Orders Only [facility] [address] [place] [address] Shaikh Mchugh MD [address] [place] [phone] Mixed hyperlipidemia (Primary Dx) Social History Tobacco Use Types Packs/Day Years Used Date Smoking Tobacco: Every Day Cigarettes 0.3 50 Smokeless Tobacco: Never Alcohol Use Standard Drinks/Week Comments Not Currently 0 (1 standard drink = 0.6 oz [...] week 04/09/2023 How often do you attend synagogue or hindu serv ices? Never 04/09/2023 Do you belong to any clubs o r organizations such as synagogue groups, unions, fraternal or athletic groups, or [...] Date Recorded Patient Health Questionnaire-2 Score 0 04/13/2023 [facility] - Occupational [...] place to sleep or slept in a detention (including now)? No 04/09/2023 Comments Unknown Sex [...] Office Visit [facility] [address] [place] [address] Coni Osorio NP [address] [place] [address] documented as of this encounter Visit Diagnoses Diagnosis Mixed hyperlipidemia- Primary Mixed hyperlipidemia documented in this encounter Care Teams Hoseman Relationship Specialty Start Date End Date Shaikh Mchugh MD PCP - General Internal Medicine 10/31/22 07/02/23 Shaikh Mchugh MD [address] [place] [phone] PCP - General Internal Medicine 07/03/23 04/17/24 Gaetano Andrea MD [address] [place] [phone] PCP - General Family Medicine 04/18/24 Marilee Carver NP [address] [place] [phone] Nurse Practitioner Family Medicine 04/18/24 documented as of this encounter
--- OUTSIDE RECORDS SUMMARY | 2024-10-28 07:30 | XMS_ITS | CCD ---
Author Organization [facility] Care Team Providers Care Bass Viol Repairer Name Role Phone BrightjusticegiulianaShaikh Unavailable Unavailable Unavailable Juan Gonzalez Unavailable Unavailable Unavailable NAVEEN ., DR ELIGIO Burns Admitting Unavailable HODGE ., DR ELIGIO Burns Consulting Unavailable HODGE ., DR ELIGIO Burns Attending Unavailable FAWMTD, DIAL H Primary Care Unavailable JUAN ANTONIO LOMELI Consulting Unavailable HODGE ., DR ELIGIO Burns Admitting Unavailable FAWMTD, DIAL H Primary Care Unavailable ROSEN ., [...] Care Provider MD Alta Schmid Attending Provider [phone] Alta Schmid Unavailable MD Misael Mchughikh Primary Care Provider MD Alta Schmid Attending Provider JOSE Staley Attending Provider MD Alta Schmid Referring Provider Neena Hi Unavailable MD Yojana Mchugh Primary Care Provider JOSE Staley Attending Provider MD Alta Schmid Referring Provider MD Yojana Mchugh Primary Care Provider MD Alta Schmid Referring Provider MD Rebeca Ashraf Attending Provider MD Alta Schmid Attending Provider [phone] Giedraitis MD, Andrius Vytautpaul Attending Unavailable Giedraitis , Andrius Vytautas Attending Unavailable Giedraitis MD, Andrius Vytautas Attending Unavailable Giedraitis , Andrius Vytautas Attending Unavailable Giedraitis MD, Andrius Vytautpaul Attending Unavailable Giedraitis , Andrius Vytautas Attending Unavailable VILLA V EZRA Attending Unavailable VILLA V, EZRA Attending Unavailable FAWWAD, DIAL Referring Unavailable FAWWAGiuliana, DIAL Attending Unavailable FAWWAGiuliana, DIAL Attending Unavailable FAWEDGAR, DIAL Attending Unavailable CARVERJUAN ANTONIO LEE Attending Unavailbelle e NADJA FULTON Attending Unavailable JUAN ANTONIO CARVER Referring Unavailbelle Mchugh MD, Primary Care Provider Wen SPEECH THERAPIST-CJuan Antonio Primary Care Provid er Alta Schmid MD Attending Provider Gaetano Andrea MD Primary Care Provider Wen SPEECH THERAPIST, Juan Antonio Unavailable [phone] Wen SPEECH THERAPIST, Juan Antonio Unavailable NO FAMILY, PHYSICIAN Primary Care Provider Unava ilable Alta Schmid MD Attending Provider [phone] NO FAMILY, PHYSICIAN Primary Care Unavailable Alta Schmid Attending Unavailable Alta Schmid Admitting Unavailable Juan Antonio Carver Primary Care Unavaila ble Alta Schmid Attending Unavailable Alta Schmid Admitting Unavailable Allergies Allergy Classification Reported Allergen(s) Allergy Type Date of Onset Reaction(s) Facility (14 sources) predniSONE; Translations: [predniSONE] Drug Allergy 1 [facility], [facility] (2 sources) predniSONE Drug Allergy 5 [facility] (13 sources) prednisoLONE Drug Allergy 3 [facility] (13 sources) Prednisone Allergy to substance 4 [facility] (1 source) predniSONE Drug Allergy 4 [facility] Repository Medications Current Medications Medication Drug Class(es) Dates Sig (Normalized) Sig (Original) acetaminophen 325 mg / oxyCODONE hydrochloride 5 mg oral tablet (20 sources) Opioid Agonist Start: 01-24-2021 End: 03-23-2023 take 1 tablet by mouth twice daily as needed for pain Oxycodone-Acetami nophen 5-325 mg tablet Active 1 TAB PO Twice daily as needed for Pain March 23, 2023 1:00am take 1 tablet by mouth once oxyC [...] (20 sources) Xanthine Oxidase Inhibitor Start: 09-16-2023 End: 04-12-2024 take 1 tablet by mouth once daily allopurinol (Zyloprim) 100 MG tablet Take 100 mg by mouth Daily 09/16/2023 Active Start: 01-24-2021 End: 03-23-2023 take 1 tablet by mouth in the morning allopurinol (Zyloprim) 300 MG tablet Take 1 tablet by mouth in the morning. 06/30/2022 Active aspirin 81 mg delayed release oral tablet (13 sources) Platelet Aggregation Inhibitor, Nonsteroidal Anti-inflammatory Drug take 1 tablet by mouth in the morning aspirin 81 MG EC tablet Take 1 tablet by mouth in the morning. Active atorvastatin 40 mg oral tablet (20 sources) HMG-CoA Reductase Inhibitor Start: 023 End: take 1 tablet by mouth in the morning atorvastatin (Lipitor) 40 MG tablet Indications: Mixed hyperlipidemia (CMS/HCC) Take 1 tablet (40 mg) by mouth in the morning. 90 tablet 1 05/24/2024 Active bumetanide 0.5 mg oral tablet (20 sources) Loop Diuretic Start: 021 End: 025 take 1 tablet by mouth once daily bumetanide (Bumex) 0.5 MG tablet Indications: Chronic diastolic congestive heart failure (CMS/HCC) Take 1 tablet (0.5 mg) by mouth Daily 90 tablet 1 05/12/2024 Active take 1 tablet by rafat th every twenty-four hours Bumetanide 0.5 MG 1 TAB BY MOUTH Orally every 24 hrs Active Llhipglpkos-Qdohahtru-Bqwsib (Trelegy Ellipta) 200-62.5-25 MCG/ACT aerosol powder (12 sources) Start: 12-14-2023 take 1 puff(s) by inhalation once daily Agtbhmxctwg-Zxjrlefyw-Erhstk (Trelegy Ellipta) 200-62.5-25 MCG/ACT aerosol powder Indications: Pulmonary emphysema, unspecified emphysema type (CMS/HCC) Inhale 1 puff Daily 1 each 1 12/14/2023 Active Start: 12-14-2023 End: 01-13-2024 take 1 puff(s) by inhalation once daily Dvhmaehiunk-Grwubvibj-Glqulu (Trelegy Ellipta) 200-62.5-25 MCG/ACT aerosol powder Indications: [...] tablet (20 sources) Sulfonylurea Start: 03-23-2023 End: 01-30-2025 take 1 tablet by mouth in the morning glipiZIDE (Glucotrol) 10 MG tablet Indications: Type 2 diabetes mellitus with stage 3a chronic kidney disease, with long-term current use of insulin (HCC) (CMS/HCC) TAKE 1 TABLET BY MOUTH IN THE MORNING AND 1 TABLET IN THE EVENING. TAKE BEFORE MEALS 180 tablet 10/03/2024 Active Start: 01-24-2021 End: 03-23-2023 take 1 tablet by mouth once daily Glipizide 10 mg tablet Discontinued 10 MG PO Daily January 24, [...] / losartan potassium 100 mg oral tablet (20 sources) Thiazide Diuretic, Angiotensin 2 Receptor Niko Start : 05-12 take 1 tablet by mouth in the morning losartan-hydroCHLOROthia zide (Hyzaar) 100-25 MG tablet Indications: Primary hypertension (CMS/HCC) Take 1 tablet by mouth in the morning. 90 tablet 1 05/12/2024 Active Start: 03-23-2023 End: 05-12-2024 take 1 tablet by mouth once daily Losartan-Hydrochlorothiazide 100-25 mg Tablet Active 1 TAB PO Daily March 23, 2023 1:00am 3 ml insulin isophane, human 100 unt/ml pen injector (2 sources) NovoLIN N FlexPe n 100 UNIT/ML as directed Subcutaneous 20 UNITS TWICE A DAY Active 3 ml insulin isophane, human 70 unt/ml / insulin, regular, human 30 unt/ml pen injector (19 sources) Insulin Start: 06-27-2024 End: 09-25-2024 insulin NPH-insulin regular (NovoLIN 70/30 FlexPen Relion) (70-30) 100 UNIT/ML injection Indications: Type 2 diabetes mellitus with stage 3a chronic kidney disease, with long-term current use of insulin (HCC) (CMS/HCC) Inject 20 Units under the skin in the morning and 20 Units in the evening. Inject before meals. 7 Insulin pen, 20 subcutaneous q12. 36 mL 06/27/2024 Active Start: 11-11-2023 End: 02-09-2024 insulin NPH-insulin regular [...] End: 09-16-2023 take 1 tablet by mouth in the morning magnesium oxide (Mag-Ox) 400 (240 Mg) MG tablet Take 400 mg by mouth in the morning and 400 mg before bedtime. 09/17/2023 Active Start: 06-24-2023 End: 09-16-2023 take 1 tablet [...] 2023 3:48pm take 2 tablets by mo uth once daily Metoprolol Tartrate 50 MG Oral Tablet TAKE 2 TABLETS DAILY. Quantity: 0 Refills: 0 Ordered: 01-Jul-2021 DO Active take 1 tablet by rafat th once daily Metoprolol Tartrate 50 MG Oral Tablet TAKE 1 TABLET EVERY 12 HOURS DAILY. Quantity: 0 Refills: 0 Ordered: 13-May-2021 DO Active Naloxone 4 mg/actuation spray,non-aerosol (2 sources) Start: 03-22-2024 Naloxone 4 mg/ actuation spray,non-aerosol Active INTRANASAL March 22, 2024 1:00am Start: 03-22-2024 Naloxone 4 mg/ actuation spray,non-aerosol Active INTRANASAL March 22, 2024 12:00am nitroglycerin 0.4 mg sublingual tablet (7 sources) Nitrate Vasodilator Start: 09-16-2023 Nitroglycerin 0.4 mg tablet, sublingual Active MG SUBLINGUAL As Directed September 16, 2023 12:00am FreeTextSig: as directed Sublingual; Note: Source Status: Not-TakingundefinedPRN; Provider: Sharmaine Holm ( ) Nitroglycerin 0. 4 MG as directed Sublingual Not-Taking/PRN Nitroglycerin 0. [address] 1 TABLET UNDER THE TONGUE EVERY 5 MINUTES FOR UP TO 3 DOSES NEEDED FOR CHEST PAIN.CALL 911 IF PAIN PERSISTS. Quantity: 1 Refills: 0 Ordered: 08-Dec-2022 DO Active nystatin 100 unt/mg topical powder (6 sources) Polyene Antifungal Start: 06-24-2023 Nystatin 100,000 unit/gram powder Active 1 APPLIC TOPICAL Twice daily June 24, 2023 1:00am apply to dry skin under breasts 2 times daily PARoxetine hydrochloride 20 mg oral tablet (20 sources) Serotonin Reuptake Inhibitor Start: 03-23-2023 End: 01-03-2025 take 1 tablet by mouth in the morning PARoxetine (Paxil) 20 MG tablet Indications: Moderate episode of recurrent major depressive disorder (CMS/HCC) Take 1 tablet (20 mg) by mouth in the morning. 90 tablet 10/05/2024 01/03/2025 Active Start: 01-24-2021 End: 03-23-2023 take 1 tablet by mouth once daily Paroxetine Hcl 10 mg tablet Discontinued 10 MG PO Daily January 24, 2021 12:00am March 23, 2023 3:48pm pramipexole dihydrochloride 0.5 mg oral tablet (20 sources) Nonergot Dopamine Agonist Start: 03-22-2024 take 0.25 mg by mouth once daily Pramipexole 0.5 mg tablet Active 0.25 MG PO Daily March 22, 2024 12:24pm Start: 10-19-2023 End: 04-16-2024 take 1 tablet by mouth at bedtime pramipexole (Mirapex) 0.25 MG tablet Indications: RLS (restless legs syndrome) Take 1 tablet (0.25 mg) by mouth at bedtime 90 tablet 1 10/19/2023 Active Start: 03-23-2023 End: 03-22-2024 take 1 tablet by mouth once daily Pramipexole 0.5 mg tablet Discontinued 0.5 MG PO Daily March 23, 2023 1:00am March 22, 2024 12:27pm rOPINIRole 0.5 mg oral tablet (2 sources) Nonergot Dopamine Agonist take 1 tablet by mouth once daily at bedtime rOPINIRole HCl 0.5 MG 1 tablet 1 to 3 hours before bedtime Orally Once a day Active traZODone hydrochloride 100 mg oral tablet (20 sources) Serotonin Reuptake Inhibitor Start: 024 End: 025 take 1.5 tablets by mouth at bedtime traZODone (Desyrel) 100 MG tablet Indications: Psychophysiological insomnia Take 1.5 tablets (150 mg) by mouth at bedtime 135 tablet 08/03/2024 11/01/2024 Active Start: 09-16-2023 Trazodone 100 mg tablet Active 150 MG PO Daily at bedtime September 16, 2023 10:59am Start: 03-23-2023 End: 09-16-2023 take 1 tablet by mouth once daily at bedtime Trazodone 100 mg tablet Discontinued 100 MG PO Daily at bedtime March 23, 2023 1:00am September 16, 2023 11:00am Start: 01-24-2021 End: 03-23-2023 Trazodone 100 mg tablet Disc ontinued 150 MG PO Bedtime January 24, 2021 12:00am March 23, 2023 3:48pm Start: 01-24-2021 End: 03-23-2023 take 150 mg [...] Sig (Original) amLODIPine 2.5 mg oral tablet (8 sources) Dihydropyridine Calcium Channel Niko Start: 1 End: 3 take 1 tablet by mouth once daily Amlodipine 2.5 mg tablet Discontinued 2.5 MG PO Daily January 24, 2021 12:00am March 23, 2023 3:48pm celecoxib 50 mg oral capsule (6 sources) Nonsteroidal Anti-inflammatory Drug take 1 capsule by mouth twice daily Celecoxib 50 MG Oral Capsule TAKE 1 CAPSULE TWICE DAILY. Quantity: 0 Refills: 0 Ordered: 13-May-2021 DO Active cephalexin 500 mg oral capsule (6 sources) Cephalosporin Antibacterial Start: 3 End: 4 take 1 capsule by mouth three times daily Cephalexin 500 mg Capsule Discontinued 500 MG PO Three times daily 15 09March 24, 2023 1:00am June 24, 2023 11:13am doxycycline hyclate 100 mg oral tablet (6 sources) Tetracycline-class Drug Start: 4 End: 4 take 2 tablets by mouth once daily Doxycycline Hyclate 100 mg tablet Discontinued 100 MG PO Twice daily June 24, 2023 1:00am March 22, 2024 12:26pm take 2 tablets daily for 14 days [...] DO Active lisinopril 2.5 mg oral tablet (10 sources) Angiotensin Converting Enzyme Inhibitor Start: 1 End: 3 take 1 tablet by mouth once daily Lisinopril 2.5 mg tablet Discontinued 2.5 MG PO Daily January 24, 2021 12:00am March 23, 2023 3:48pm lovastatin 40 mg oral tablet (16 sources) HMG-CoA Reductase Inhibitor Start: 1 End: 3 take 1 tablet by mouth once daily Lovastatin 40 mg tablet Discontinued 40 MG PO Daily January 24, 2021 12:00am March 23, 2023 3:48pm metFORMIN hydrochloride 500 mg oral tablet (16 sources) Biguanide Start: 1 End: 3 take [...] DO Active tiZANidine 4 mg oral tablet (16 sources) Central alpha-2 Adrenergic Agonist Start: 1 [...] [Unspecified abdominal pain] Episodic Chronic kidney disease (10 sources) Chronic kidney disease stage 3; Translations: [Chronic kidney disease, stage 3 (moderate)] 09-16-2023 Chronic Chronic kidney disease (2 sources) Chronic kidney disease; Translations: [Chronic kidney disease, stage 3 unspecified] Onset: 5 Chronic obstructive pulmonary disease and bronchiectasis (14 sources) Chronic obstructive pulmonary disease, unspecified; Translations: [Pulmonary emphysema] Onset: 2 04-13-2023 Chronic Congestive heart failure; nonhypertensive (15 sources) Chronic diastolic heart failure; Translations: [Chronic [...] Onset: 2 Chronic Disorders of lipid metabolism (20 sources) Hyperlipidemia, unspecified; Translations: [Mixed hyperlipidemia] Onset: 2 Chronic Essential hypertension (19 sources) Hypertensive disorder; Translations: [Unspecified essential hypertension] Onset: 3 04-13-2023 Chronic Gout and other crystal arthropathies (3 sources) Gouty arthritis of multiple sites; Translations: [Idiopathic chronic gout, multiple sites, without tophus (tophi)] Onset: 5 10-05-2024 Chronic Hypertension with complications and secondary hypertension (11 sources) Malignant hypertensive chronic kidney disease; Translations: [Hypertensive chronic kidney disease with stage 1 through stage 4 chronic kidney disease, or unspecified chronic kidney disease] Onset: 2 Chronic Miscellaneous mental health disorders (14 sources) Psychophysiologic insomnia; Translations: [Psychophysiologic insomnia] Onset: 4 07-13-2023 Chronic Mood disorders (20 sources) Major depression in full remission; Translations: [Major depressive disorder, single episode, in full remission] Onset: 3 04-13-2023 Chronic Mycoses (13 sources) Mycosis; Translations: [Candidiasis, unspecified] 06-24-2023 Episodic Nonmalignant breast conditions (12 sources) Other specified disorders of breast; Translations: [Breast lump] Onset: 2 06-24-2023 Episodic Other and ill-defined heart disease (12 sources) Cardiomegaly; Translations: [Cardiomegaly] Chronic Other and ill-defined heart disease (1 source) Cardiomegaly Onset: 1 Resolved: 1 Chronic Other diseases of kidney and ureters (7 sources) Secondary hyperparathyroidism; Translations: [Secondary hyperparathyroidism of renal origin] 09-16-2023 Chronic Other diseases of kidney and ureters (3 sources) Secondary hyperparathyroidism of renal origin; Translations: [Secondary hyperparathyroidism (of renal origin)] Onset: 5 Chronic Other gastrointestinal disorders (4 sources) Constipation; Translations: [Constipation, unspecified] Episodic Other hereditary and degenerative nervous system conditions (1 source) Restless legs syndrome; Translations: [RESTLESS LEGS SYNDROME] Onset: 2 Chronic Other hereditary and degenerative nervous system conditions (13 sources) Restless legs; Translations: [Restless legs syndrome] Onset: 3 04-13-2023 Chronic Other liver diseases (7 sources) Liver cyst; Translations: [Other specified diseases of liver] 09-16-2023 Chronic Other liver diseases (3 sources) Other specified diseases of liver; Translations: [Other specified disorders of liver] Onset: 5 Chronic Other lower respiratory disease (8 sources) Dyspnea; Translations: [Other respiratory abnormalities] Episodic Other nervous system disorders (1 source) Other chronic pain; Translations: [OTHER CHRONIC PAIN] Onset: 3 Chronic Other nervous system disorders (4 sources) Chronic low back pain; Translations: [Other chronic pain] Onset: 3 04-13-2023 Chronic Other nutritional; endocrine; and metabolic disorders (8 sources) Obesity; Translations: [Obesity, unspecified] Chronic Other nutritional; endocrine; and metabolic disorders (4 sources) Obese class I; Translations: [Body mass index (BMI) 33.0-33.9, adult] Chronic Other nutritional; endocrine; and metabolic disorders (7 sources) Hypomagnesemia; Translations: [Hypomagnesemia] 09-16-2023 Chronic Other nutritional; endocrine; and metabolic disorders (4 sources) Hypermagnesemia; Translations: [Hypermagnesemia] Chronic Other nutritional; endocrine; and metabolic disorders (3 sources) Hypomagnesemia; Translations: [Disorders of magnesium metabolism] Onset: 5 Chronic Other nutritional; endocrine; and metabolic disorders (3 sources) Hyperuricemia without signs of inflammatory arthritis and tophaceous disease; Translations: [Other abnormal blood chemistry] Onset: 5 Episodic Other nutritional; endocrine; and metabolic disorders (3 sources) Hyperuricemia; Translations: [Hyperuricemia without signs of inflammatory arthritis and tophaceous disease] 09-16-2023 Episodic Spondylosis; intervertebral disc disorders; other back problems (20 sources) Prolapsed cervical intervertebral disc; Translations: [Other cervical disc displacement, unspecified cervical region] Onset: 2 Resolved: 2 Chronic Substance-related disorders (20 sources) Smoker; Translations: [Tobacco use disorder] Onset: [...] 11-28-2021 Episodic Other aftercare (1 source) Other long term care social worker (current) drug therapy; Translations: [OTH EDUCATION ADMINISTRATIVE ASSISTANT CURRENT DRUG THERAPY] Onset: 12-04-2021 Episodic Other connective tissue disease (13 sources) Disorder of back; Translations: [Disorder of ligament, vertebrae] Onset: 04-08-2023 04-08-2023 Episodic Other connective tissue disease (13 sources) H/O: osteoarthritis; Translations: [Personal history of other diseases of the musculoskeletal system and connective tissue] Onset: 04-08-2023 04-08-2023 Episodic Other connective tissue disease (13 sources) Spasm; Translations: [Other muscle spasm] Onset: [...] 05-28-2022 Episodic Skin and subcutaneous tissue infections (20 sources) Furuncle; Translations: [Furuncle, unspecified] Onset: 07-03-2023 [...] dye binding methoOrdered By: Alta Schmid on 09-30-2024 Albumin BCG dye [Mass/Vol] Albumin [Mass/volume] in Serum or Plasma by Bromocresol green (BCG) dye binding metho 3.5-5.7 [facility] Appearance of UrineOrdered B y: Alta Schmid on 09-30-2024 Appearance (U) Urine appearance Clear [facility] Bacteria [Presence] in Urine by AutomatedOrdered By: Alta Schmid on 09-30-2024 Bacteria Auto Ql (U) Bacteria [Presence] in Urine by Automated None Seen [facility] Bilirubin Test strip Ql (U)O rdered By: Alta Schmid on 09-30-2024 Bilirubin Ql (U) Bilirubin.total [Presence] in Urine by Test strip Negative [facility] Calcium [Mass/volume] in Ser um or PlasmaOrdered By: Alta Schmid on 09-30-2024 Calcium [Mass/Vol] Calcium [Mass/volume] in Serum or Plasma 8.6-10.3 [facility] Carbon dioxide, total [Moles /volume] in Serum or PlasmaOrdered By: Atla Schmid on 09-30-2024 CO2 [Moles/Vol] Carbon dioxide, total [Moles/volume] in Serum or Plasma 21.0-31.0 [facility] Chloride [Moles/volume] in S carlos or PlasmaOrdered By: Alta Schmid on 09-30-2024 Chloride [Moles/Vol] Chloride [Moles/volume] in Serum or Plasma 98-107 [facility] Color Auto (U)Ordered By: Ab richard Schmid on 09-30-2024 Color (U) Color of Urine by Auto Yellow [facility] Creatinine [Mass/volume] in Serum or PlasmaOrdered By: Alta Schmid on 09-30-2024 Creatinine [Mass/Vol] Creatinine [Mass/volume] in Serum or Plasma High 0.60-1.20 [facility] Creatinine [Mass/volume] in UrineOrdered By: Alta Schmid on 09-30-2024 Creatinine (U) [Mass/Vol] Creatinine [Mass/volume] in Urine [facility] Comment on above: No reference range e stablished Dipstick and Microscopicon 0 09-30-2024 Appearance (U) Clear Normal Clear [facility] Comment on above: Order Comment: Name Collection Type:: Clean-Voided Midstream Performed By: #### V [id number], URIC, ADDONUAPLUS, CBCNO, PROCRERAT, RENAL, MG, PTH #### [facility] [address] Bacteria,Urine None Seen Normal None Seen [facility] Comment on above: Order Comment: Name Collection Type:: Clean-Voided Midstream Performed By: #### V [id number], URIC, ADDONUAPLUS, CBCNO, PROCRERAT, RENAL, MG, PTH #### [facility] [address] Bilirubin,Urine Negative Normal Negative [facility] Comment on above: Order Comment: Name Collection Type:: Clean-Voided Midstream Performed By: #### V [id number], URIC, ADDONUAPLUS, CBCNO, PROCRERAT, RENAL, MG, PTH #### [facility] [address] Color (U) Light-Yellow Normal Yellow [facility] Comment on above: Order Comment: Name Collection Type:: Clean-Voided Midstream Performed By: #### V [id number], URIC, ADDONUAPLUS, CBCNO, PROCRERAT, RENAL, MG, PTH #### [facility] [address] [place] [id number] [facility] Glucose Ql (U) Normal Normal Normal [facility] Comment on above: Order Comment: Name Collection Type:: Clean-Voided Midstream Performed By: #### V [id number], URIC, ADDONUAPLUS, CBCNO, PROCRERAT, RENAL, MG, PTH #### [facility] [address] Hyaline Casts,Urine None Normal 0-8 [facility] Comment on above: Order Comment: Name Collection Type:: Clean-Voided Midstream Result Comment: PERF ORMED BY: [place] [address] PATHOLOGIST BUREAU DIRECTOR CLAU SOTO M.D. Performed By: #### V [id number], URIC, ADDONUAPLUS, CBCNO, PROCRERAT, RENAL, MG, PTH #### [address] Ketones Ql (U) Negative Normal Negative [facility] Comment on above: Order Comment: Name Collection Type:: Clean-Voided Midstream Performed By: #### V [id number], URIC, ADDONUAPLUS, CBCNO, PROCRERAT, RENAL, MG, PTH #### [address] Leukocyte esterase Test strip Ql (U) Negative Normal Negative [facility] Comment on above: Order Comment: Name Collection Type:: Clean-Voided Midstream Performed By: #### V [id number], URIC, ADDONUAPLUS, CBCNO, PROCRERAT, RENAL, MG, PTH #### [address] Nitrite,Urine Negative Normal Negative [facility] Comment on above: Order Comment: Name Collection Type:: Clean-Voided Midstream Performed By: #### V [id number], URIC, ADDONUAPLUS, CBCNO, PROCRERAT, RENAL, MG, PTH #### [address] Occult Blood,Urine Negative Normal Negative [facility] Comment on above: Order Comment: Name Collection Type:: Clean-Voided Midstream Performed By: #### V [id number], URIC, ADDONUAPLUS, CBCNO, PROCRERAT, RENAL, MG, PTH #### [address] pH (U) 5.5 [pH] Normal 5.0-9.0 [facility] Comment on above: Order Comment: Name Collection Type:: Clean-Voided Midstream Performed By: #### V [id number], URIC, ADDONUAPLUS, CBCNO, PROCRERAT, RENAL, MG, PTH #### [address] Protein (U) [Mass/Vol] 50 mg/dL High Negative Th e [facility] Comment on above: Order Comment: Name Collection Type:: Clean-Voided Midstream Performed By: #### V [id number], URIC, ADDONUAPLUS, CBCNO, PROCRERAT, RENAL, MG, PTH #### [address] RBC,Urine 1-2 Normal 0-4 [facility] Comment on above: Order Comment: Name Collection Type:: Clean-Voided Midstream Performed By: #### V [id number], URIC, ADDONUAPLUS, CBCNO, PROCRERAT, RENAL, MG, PTH #### [address] Specificy [place],Urine 1.013 Normal 1.001-1.030 [facility] Comment on above: Order Comment: Name Collection Type:: Clean-Voided Midstream Performed By: #### V [id number], URIC, ADDONUAPLUS, CBCNO, PROCRERAT, RENAL, MG, PTH #### [address] Squamous Epithelial Cell,Urine 3-4 High 0-2 [facility] Comment on above: Order Comment: Name Collection Type:: Clean-Voided Midstream Performed By: #### V [id number], URIC, ADDONUAPLUS, CBCNO, PROCRERAT, RENAL, MG, PTH #### [address] Urobilinogen,Urine Normal Normal Normal [facility] Comment on above: Order Comment: Name Collection Type:: Clean-Voided Midstream Performed By: #### V [id number], URIC, ADDONUAPLUS, CBCNO, PROCRERAT, RENAL, MG, PTH #### [address] WBC,Urine 1-2 Normal 0-4 [facility] Comment on above: Order Comment: Name Collection Type:: Clean-Voided Midstream Performed By: #### V [id number], URIC, ADDONUAPLUS, CBCNO, PROCRERAT, RENAL, MG, PTH #### [facility] [address] [id number] [facility] Epithelial cells.squamous [# /area] in Urine sediment by Automated countOrdered By: Alta Schmid on 09-30-2024 Epithelial cells.squamous Auto (Urine sed) [#/Area] Epithelial cells.squamous [#/area] in Urine sediment by Automated count High 0-2 [facility] Erythrocyte distribution wid th Auto (RBC) [Ratio]Ordered By: Alta Schmid on 09-30-2024 Erythrocyte distribution width (RBC) [Ratio] Erythrocyte distribution width [Ratio] by Automated count 11.9-15.3 [facility] Erythrocytes [#/area] in Uri ne sediment by Automated countOrdered By: Alta Schmid on 09-30-2024 RBC Auto (Urine sed) [#/Area] Erythrocytes [#/area] in Urine sediment by Automated count 0-4 [facility] Glucose [Mass/volume] in Ser um or PlasmaOrdered By: Alta Schmid on 09-30-2024 Glucose [Mass/Vol] Glucose [Mass/volume] in Serum or Plasma High 70-100 [facility] Comment on above: ADA recommended refe rence rangeRandom Glucose Reference Range is dependent on time and content of last meal. Glucose of more than 200 mg/dL in a nonstressed, ambulatory subject supports the diagnosis of Diabetes Mellitus. Glucose [Mass/volume] in Uri ne by Test stripOrdered By: Alta Schmid on 09-30-2024 Glucose Test strip (U) [Mass/Vol] Glucose [Mass/volume] in Urine by Test strip Normal [facility] Hematocrit Auto (Bld) [Volum e fraction]Ordered By: Alta Schmid on 09-30-2024 Hematocrit (Bld) [Volume fraction] Hematocrit [Volume Fraction] of Blood by Automated count High 34.0-46.4 [facility] Hemoglobin Test strip Ql (U) Ordered By: Alta Schmid on 09-30-2024 Hemoglobin Ql (U) Hemoglobin [Presence] in Urine by Test strip Negative [facility] Hemoglobin [Mass/volume] in BloodOrdered By: Alta Schmid on 09-30-2024 Hemoglobin (Bld) [Mass/Vol] Hemoglobin [Mass/volume] in Blood High 11.8-15.4 [facility] Hemogram CBC Without Diffon 09-30-2024 Erythrocyte distribution width (RBC) [Ratio] 14.8 % Normal 11.9-15.3 [facility] Comment on above: Performed By: #### V [id number], URIC, ADDONUAPLUS, CBCNO, PROCRERAT, RENAL, MG, PTH #### [address] Hematocrit (Bld) [Volume fraction] 48.2 % High 34.0-46.4 [facility] Comment on above: Performed By: #### V [id number], URIC, ADDONUAPLUS, CBCNO, PROCRERAT, RENAL, MG, PTH #### [address] Hemoglobin (Bld) [Mass/Vol] 16.3 g/dL High 11.8-15.4 [facility] Comment on above: Performed By: #### V [id number], URIC, ADDONUAPLUS, CBCNO, PROCRERAT, RENAL, MG, PTH #### [address] MCH (RBC) [Entitic mass] 29.8 pg Normal 24.7-34.3 [facility] Comment on above: Performed By: #### V [id number], URIC, ADDONUAPLUS, CBCNO, PROCRERAT, RENAL, MG, PTH #### [address] MCV (RBC) [Entitic vol] 88.1 fL Normal 80-100 [facility] Comment on above: Performed By: #### V [id number], URIC, ADDONUAPLUS, CBCNO, PROCRERAT, RENAL, MG, PTH #### [address] Mean Corpuscular HGB Conc 33.8 g/dL Normal 32.0-35.0 [facility] Comment on above: Performed By: #### V [id number], URIC, ADDONUAPLUS, CBCNO, PROCRERAT, RENAL, MG, PTH #### [address] Platelet mean volume (Bld) [Entitic vol] 8.9 fL Normal 6.3-10.7 [facility] Comment on above: Result Comment: PERF ORMED BY: [place] [address] PATHOLOGIST BUREAU DIRECTOR CLAU SOTO M.D. Performed By: #### V [id number], URIC, ADDONUAPLUS, CBCNO, PROCRERAT, RENAL, MG, PTH #### [address] Platelets (Bld) [#/Vol] 237 10*3/uL Normal 150-450 [facility] Comment on above: Performed By: #### V [id number], URIC, ADDONUAPLUS, CBCNO, PROCRERAT, RENAL, MG, PTH #### [address] RBC (Bld) [#/Vol] 5.47 10*6/uL High 3.60-5.00 [facility] Comment on above: Performed By: #### V [id number], URIC, ADDONUAPLUS, CBCNO, PROCRERAT, RENAL, MG, PTH #### [address] WBC (Bld) [#/Vol] 11.7 10*3/uL High 3.8-11.6 [facility] Comment on above: Performed By: #### V [id number], URIC, ADDONUAPLUS, CBCNO, PROCRERAT, RENAL, MG, PTH #### [address] Hyaline casts [#/area] in Ur ine sediment by Automated countOrdered By: Alta Schmid on 09-30-2024 Hyaline casts Auto (Urine sed) [#/Area] Hyaline casts [#/area] in Urine sediment by Automated count 0-8 [facility] Ketones Test strip Ql (U)Ord ered By: Alta Schmid on 09-30-2024 Ketones Ql (U) Ketones [Presence] in Urine by Test strip Negative [facility] Leukocyte esterase [Presence ] in Urine by Test stripOrdered By: Alta Schmid on 09-30-2024 Leukocyte esterase Test strip Ql (U) Leukocyte esterase [Presence] in Urine by Test strip Negative [facility] Leukocytes [#/area] in Urine sediment by Automated countOrdered By: Alta Schmid on 09-30-2024 WBC Auto (Urine sed) [#/Area] Leukocytes [#/area] in Urine sediment by Automated count 0-4 [facility] Leukocytes [#/volume] correc janet for nucleated erythrocytes in Blood by Automated counOrdered By: Alta Schmid on 09-30-2024 WBC corrected for nucl RBC Auto (Bld) [#/Vol] Leukocytes [#/volume] corrected for nucleated erythrocytes in Blood by Automated coun High 3.8-11.6 [facility] MCH Auto (RBC) [Entitic mass ]Ordered By: Alta Schmid on 09-30-2024 MCH (RBC) [Entitic mass] MCH [Entitic ma ss] by Automated count 24.7-34.3 [facility] MCHC Auto (RBC) [Mass/Vol]Or dered By: Alta Schmid on 09-30-2024 MCHC (RBC) [Mass/Vol] MCHC [Mass/volume] by Automated count 32.0-35.0 [facility] MCV Auto (RBC) [Entitic vol] Ordered By: Alta Schmid on 09-30-2024 MCV (RBC) [Entitic vol] MCV [Entitic volume] by Automated count 80-100 [facility] Magnesiumon 09-30-2024 Magnesium [Mass/Vol] 1.6 mg/dL Low 1.9-2.7 [facility] Comment on above: Performed By: #### V [id number], URIC, ADDONUAPLUS, CBCNO, PROCRERAT, RENAL, MG, PTH #### [facility] [address] [id number] [facility] Magnesium [Mass/volume] in S carlos or PlasmaOrdered By: Alta Schmid on 09-30-2024 Magnesium [Mass/Vol] Magnesium [Mass/volume] in Serum or Plasma Low 1.9-2.7 [facility] Nitrite Test strip Ql (U)Ord ered By: Alta Schmid on 09-30-2024 Nitrite Ql (U) Nitrite [Presence] in Urine by Test strip Negative [facility] No Panel InformationOrdered By: Alta Schmid on 09-30-2024 Estimated GFR (CKD-EPI) 46.949 mL/Min [facility] Creatinine Clearance (Chem N/A [facility] Parathyrin.intact [Mass/volu me] in Serum or PlasmaOrdered By: Alta Schmid on 09-30-2024 Parathyrin.intact [Mass/Vol] Parathyrin.intact [Mass/volume] in Serum or Plasma [facility] Parathyroid Hormone Intacton 09-30-2024 Parathyroid Hormone Intact 80.6 pg/mL Normal [facility] Comment on above: Result Comment: PERF ORMED BY: [place] [address] PATHOLOGIST BUREAU DIRECTOR CLAU SOTO M.D. Performed By: #### V [id number], URIC, ADDONUAPLUS, CBCNO, PROCRERAT, RENAL, MG, PTH #### [facility] [address] [id number] [facility] Phosphate [Mass/volume] in S carlos or PlasmaOrdered By: Alta Schmid on 09-30-2024 Phosphate [Mass/Vol] Phosphate [Mass/volume] in Serum or Plasma 2.5-4.5 [facility] Platelet mean volume Auto (B ld) [Entitic vol]Ordered By: Alta Schmid on 09-30-2024 Platelet mean volume (Bld) [Entitic vol] Platelet mean volume [Entitic volume] in Blood by Automated count 6.3-10.7 [facility] Platelets Auto (Bld) [#/Vol] Ordered By: Alta Schmid on 09-30-2024 Platelets (Bld) [#/Vol] Platelets [#/volume] in Blood by Automated count 150-450 [facility] Potassium [Moles/volume] in Serum or PlasmaOrdered By: Alta Schmid on 09-30-2024 Potassium [Moles/Vol] Potassium [Moles/volume] in Serum or Plasma 3.5-5.1 [facility] Protein Creat Ratio Ur Rando mon 09-30-2024 Creatinine, Urine (Random) 66.00 mg/dL Normal [facility] Comment on above: Result Comment: No r eference range established Performed By: #### V [id number], URIC, ADDONUAPLUS, CBCNO, PROCRERAT, RENAL, MG, PTH #### [facility] [address] Protein (U) [Mass/Vol] 82 mg/dL High 0-9 [facility] Comment on above: Performed By: #### V [id number], URIC, ADDONUAPLUS, CBCNO, PROCRERAT, RENAL, MG, PTH #### [address] Urine Protein/Creatinine Ratio 1242 mg/g{Cre} High 0-200 [facility] Comment on above: Result Comment: PERF ORMED BY: [place] [address] PATHOLOGIST BUREAU DIRECTOR CLAU SOTO M.D. Performed By: #### V [id number], URIC, ADDONUAPLUS, CBCNO, PROCRERAT, RENAL, MG, PTH #### [address] Protein Test strip (U) [Mass /Vol]Ordered By: Alta Schmid on 09-30-2024 Protein (U) [Mass/Vol] Protein [Mass/volume] in Urine by Test strip High Negative [facility] Protein [Mass/volume] in Uri neOrdered By: Alta Schmid on 09-30-2024 Protein (U) [Mass/Vol] Protein [Mass/volume] in Urine High 0-9 [facility] RBC Auto (Bld) [#/Vol]Ordere d By: Alta Schmid on 09-30-2024 RBC (Bld) [#/Vol] Erythrocytes [#/volume] in Blood by Automated count High 3.60-5.00 [facility] Renal Function Panelon 09-30 Albumin [Mass/Vol] 4.0 g/dL Normal 3.5-5.7 [facility] Comment on above: Performed By: #### V [id number], URIC, ADDONUAPLUS, CBCNO, PROCRERAT, RENAL, MG, PTH #### [facility] [address] Anion gap [Moles/Vol] 13.7 mmol/L Normal 6.0-15.0 [facility] Comment on above: Performed By: #### V [id number], URIC, ADDONUAPLUS, CBCNO, PROCRERAT, RENAL, MG, PTH #### [facility] [address] Calcium [Mass/Vol] 8.9 mg/dL Normal 8.6-10.3 [facility] Comment on above: Performed By: #### V [id number], URIC, ADDONUAPLUS, CBCNO, PROCRERAT, RENAL, MG, PTH #### [facility] [address] Chloride [Moles/Vol] 102 mmol/L Normal 98-107 [facility] Comment on above: Performed By: #### V [id number], URIC, ADDONUAPLUS, CBCNO, PROCRERAT, RENAL, MG, PTH #### [facility] [address] CO2 [Moles/Vol] 26.2 mmol/L Normal 21.0-31.[address] [facility] Comment on above: Performed By: #### V [id number], URIC, ADDONUAPLUS, CBCNO, PROCRERAT, RENAL, MG, PTH #### [facility] [address] Creatinine [Mass/Vol] 1.25 mg/dL High 0.60-1.20 [facility] Comment on above: Performed By: #### V [id number], URIC, ADDONUAPLUS, CBCNO, PROCRERAT, RENAL, MG, PTH #### [address] Estimated GFR 46.949 mL/Min Normal [facility] Comment on above: Performed By: #### V [id number], URIC, ADDONUAPLUS, CBCNO, PROCRERAT, RENAL, MG, PTH #### [address] Glucose [Mass/Vol] 268 mg/dL High 70-100 [facility] Comment on above: Result Comment: [facility] Glucose Reference Range is dependent on time and content of last meal. Glucose of more than 200 mg/dL in a nonstressed, ambulatory subject supports the diagnosis of Diabetes Mellitus. ADA recommended reference range Performed By: #### V [id number], URIC, ADDONUAPLUS, CBCNO, PROCRERAT, RENAL, MG, PTH #### [address] Phosphate [Mass/Vol] 3.1 mg/dL Normal 2.5-4.5 [facility] Comment on above: Performed By: #### V [id number], URIC, ADDONUAPLUS, CBCNO, PROCRERAT, RENAL, MG, PTH #### [address] Potassium [Moles/Vol] 4.9 mmol/L Normal 3.5-5.1 [facility] Comment on above: Performed By: #### V [id number], URIC, ADDONUAPLUS, CBCNO, PROCRERAT, RENAL, MG, PTH #### [address] Sodium [Moles/Vol] 137 mmol/L Normal 136-145 [facility] Comment on above: Performed By: #### V [id number], URIC, ADDONUAPLUS, CBCNO, PROCRERAT, RENAL, MG, PTH #### [address] [place] [address] [place] Urea nitrogen [Mass/Vol] 24 mg/dL Normal 7-25 [facility] Comment on above: Performed By: #### V [id number], URIC, ADDONUAPLUS, CBCNO, PROCRERAT, RENAL, MG, PTH #### [facility] [address] Serum or plasma anion gap de terminationOrdered By: Alta Sharmaine on 09-30-2024 Anion gap [Moles/Vol] Serum or plasma anion gap determination 6.0-15.0 [facility] Sodium [Moles/volume] in Ser um or PlasmaOrdered By: Alta Sharmaine on 09-30-2024 Sodium [Moles/Vol] Sodium [Moles/volume] in Serum or Plasma 136-145 [facility] Specific gravity Test strip (U) [Rel density]Ordered By: Alta Sharmaine on 09-30-2024 Specific gravity (U) [Rel density] Specific gravity of Urine by Test strip 1.001-1.030 [facility] Urate [Mass/volume] in Serum or PlasmaOrdered By: Alta Sharmaine on 09-30-2024 Urate [Mass/Vol] Urate [Mass/volume] in Serum or Plasma High 2.3-6.6 [facility] Urea nitrogen [Mass/volume] in Serum or PlasmaOrdered By: Alta Sharmaine on 09-30-2024 Urea nitrogen [Mass/Vol] Urea nitrogen [Mass/volume] in Serum or Plasma 7-25 [facility] Uric Acidon 09-30-2024 Urate [Mass/Vol] 8.3 mg/dL High 2.3-6.[address] [facility] Comment on above: Performed By: #### V [id number], URIC, ADDONUAPLUS, CBCNO, PROCRERAT, RENAL, MG, PTH #### [facility] [address] [place] [address] Urine protein/creatinine rat ioOrdered By: Alta Sharmaine on 09-30-2024 Protein/Creatinine (U) [Ratio] Urine protein/creatinine ratio High 0-200 [facility] Urobilinogen Test strip (U) [Mass/Vol]Ordered By: Alta Schmid on 09-30-2024 Urobilinogen (U) [Mass/Vol] Urobilinogen [Mass/volume] in Urine by Test strip Normal [facility] Vitamin D 25 Hydroxy Totalon 09-30-2024 Vitamin D 25 Hydroxy Total 26.8 ng/mL Low 30-100 [facility] Comment on above: Result Comment: DEBORAH MIN D STATUS 25(OH)VITAMIN D RANGE (ng/mL) Deficient <20 Insufficient 20 to <30 Sufficient 30 to 100 Reference: Isai Rich, Randa WALSH, et al. Evaluation,treatment, and prevention of vitamin D deficiency; an Endocrine Society clinical practice guideline. JCEM. 2010; 96(7):191-. PERFORMED BY: [place] [address] PATHOLOGIST BUREAU DIRECTOR CLAU SOTO M.D. Performed By: #### V [id number], URIC, ADDONUAPLUS, CBCNO, PROCRERAT, RENAL, MG, PTH #### [address] Vitamin D+Metabolites [Mass/ volume] in Serum or PlasmaOrdered By: Alta Schmid on 09-30-2024 Vitamin D+Metabolites [Mass/Vol] Vitamin D+Metabolites [Mass/volume] in Serum or Plasma Low 30-100 [facility] Comment on above: VITAMIN D STATUS 25( [place])VITAMIN D RANGE (ng/mL) Deficient <20 Insufficient 20 to <30Sufficient 30 to 100Reference: Isai Rich, Randa WALSH, et al. Evaluation,treatment, and prevention of vitamin D deficiency; an Endocrine Society clinical practice guideline. JCEM. 2010; 96(7):1911-30. pH Test strip (U)Ordered By: Alta Schmid on 09-30-2024 pH (U) pH of Urine by Test strip 5.0-9.0 [facility] Albumin [Mass/volume] in Ser um or Plasma by Bromocresol green (BCG) dye binding methoOrdered By: Alta Schmid on 03-14-2024 Albumin BCG dye [Mass/Vol] Albumin [Mass/volume] in Serum or Plasma by Bromocresol green (BCG) dye binding metho 3.5-5.7 [facility] Appearance of UrineOrdered B y: Alta Schmid on 03-14-2024 Appearance (U) Urine appearance Clear [facility] Bacteria [Presence] in Urine by AutomatedOrdered By: Alta Schmid on 03-14-2024 Bacteria Auto Ql (U) Bacteria [Presence] in Urine by Automated None Seen [facility] Bilirubin Test strip Ql (U)O rdered By: Alta Schmid on 03-14-2024 Bilirubin Ql (U) Bilirubin.total [Presence] in Urine by Test strip Negative [facility] Calcium [Mass/volume] in Ser um or PlasmaOrdered By: Alta Schmid on 03-14-2024 Calcium [Mass/Vol] Calcium [Mass/volume] in Serum or Plasma 8.6-10.3 [facility] Carbon dioxide, total [Moles /volume] in Serum or PlasmaOrdered By: Alta Schmid on 03-14-2024 CO2 [Moles/Vol] Carbon dioxide, total [Moles/volume] in Serum or Plasma 21.0-31.0 [facility] Chloride [Moles/volume] in S carlos or PlasmaOrdered By: Alta Schmid on 03-14-2024 Chloride [Moles/Vol] Chloride [Moles/volume] in Serum or Plasma 98-107 [facility] Color Auto (U)Ordered By: Ab richard Schmid on 03-14-2024 Color (U) Color of Urine by Auto Yellow [facility] Creatinine [Mass/volume] in Serum or PlasmaOrdered By: Alta Schmid on 03-14-2024 Creatinine [Mass/Vol] Creatinine [Mass/volume] in Serum or Plasma High 0.60-1.20 [facility] Creatinine [Mass/volume] in UrineOrdered By: Alta Schmid on 03-14-2024 Creatinine (U) [Mass/Vol] Creatinine [Mass/volume] in Urine [facility] Comment on above: No reference range e stablished Dipstick and Microscopicon 1 05-14-2023 Appearance (U) Clear Normal Clear [facility] Comment on above: Order Comment: Name Collection Type:: Clean-Voided Midstream Performed By: #### A DDONUAPLUS, CBCNO, PROCRERAT, [id number], RENAL, PTH, URIC, MG #### [address] Bacteria,Urine Rare Normal None Seen [facility] Comment on above: Order Comment: Name Collection Type:: Clean-Voided Midstream Performed By: #### A DDONUAPLUS, CBCNO, PROCRERAT, [id number], RENAL, PTH, URIC, MG #### [address] Bilirubin,Urine Negative Normal Negative [facility] Comment on above: Order Comment: Name Collection Type:: Clean-Voided Midstream Performed By: #### A DDONUAPLUS, CBCNO, PROCRERAT, [id number], RENAL, PTH, URIC, MG #### [address] Color (U) Colorless Normal Yellow [facility] Comment on above: Order Comment: Name Collection Type:: Clean-Voided Midstream Performed By: #### A DDONUAPLUS, CBCNO, PROCRERAT, [id number], RENAL, PTH, URIC, MG #### [address] Glucose Ql (U) 200 mg/dL High Normal [facility] Comment on above: Order Comment: Name Collection Type:: Clean-Voided Midstream Performed By: #### A DDONUAPLUS, CBCNO, PROCRERAT, [id number], RENAL, PTH, URIC, MG #### [address] Hyaline Casts,Urine 0 [LPF] Normal 0-8 [facility] Comment on above: Order Comment: Name Collection Type:: Clean-Voided Midstream Performed By: #### A DDONUAPLUS, CBCNO, PROCRERAT, [id number], RENAL, PTH, URIC, MG #### [facility] [address] Ketones Ql (U) Negative Normal Negative [facility] Comment on above: Order Comment: Name Collection Type:: Clean-Voided Midstream Performed By: #### A DDONUAPLUS, CBCNO, PROCRERAT, [id number], RENAL, PTH, URIC, MG #### [address] Leukocyte esterase Test strip Ql (U) Negative Normal Negative [facility] Comment on above: Order Comment: Name Collection Type:: Clean-Voided Midstream Performed By: #### A DDONUAPLUS, CBCNO, PROCRERAT, [id number], RENAL, PTH, URIC, MG #### [address] Mucus,Urine Rare Normal [facility] Comment on above: Order Comment: Name Collection Type:: Clean-Voided Midstream Result Comment: PERF ORMED BY: [place] [address] PATHOLOGIST BUREAU DIRECTOR SHANTE LOMBARDI M.D. Performed By: #### A DDONUAPLUS, CBCNO, PROCRERAT, [id number], RENAL, PTH, URIC, MG #### [address] Nitrite,Urine Negative Normal Negative [facility] Comment on above: Order Comment: Name Collection Type:: Clean-Voided Midstream Performed By: #### A DDONUAPLUS, CBCNO, PROCRERAT, [id number], RENAL, PTH, URIC, MG #### [address] Occult Blood,Urine Negative Normal Negative [facility] Comment on above: Order Comment: Name Collection Type:: Clean-Voided Midstream Performed By: #### A DDONUAPLUS, CBCNO, PROCRERAT, [id number], RENAL, PTH, URIC, MG #### [address] pH (U) 5.5 [pH] Normal 5.0-9.0 [facility] Comment on above: Order Comment: Name Collection Type:: Clean-Voided Midstream Performed By: #### A DDONUAPLUS, CBCNO, PROCRERAT, [id number], RENAL, PTH, URIC, MG #### [address] Protein,Urine Negative Normal Negative [facility] Comment on above: Order Comment: Name Collection Type:: Clean-Voided Midstream Performed By: #### A DDONUAPLUS, CBCNO, PROCRERAT, [id number], RENAL, PTH, URIC, MG #### [address] RBC,Urine 1 [HPF] Normal 0-4 [facility] Comment on above: Order Comment: Name Collection Type:: Clean-Voided Midstream Performed By: #### A DDONUAPLUS, CBCNO, PROCRERAT, [id number], RENAL, PTH, URIC, MG #### [address] Specificy [place],Urine 1.008 Normal 1.001-1.030 [facility] Comment on above: Order Comment: Name Collection Type:: Clean-Voided Midstream Performed By: #### A DDONUAPLUS, CBCNO, PROCRERAT, [id number], RENAL, PTH, URIC, MG #### [address] Squamous Epithelial Cell,Urine 3 [HPF] High 0-2 [facility] Comment on above: Order Comment: Name Collection Type:: Clean-Voided Midstream Performed By: #### A DDONUAPLUS, CBCNO, PROCRERAT, [id number], RENAL, PTH, URIC, MG #### [address] Urobilinogen,Urine Normal Normal Normal [facility] Comment on above: Order Comment: Name Collection Type:: Clean-Voided Midstream Performed By: #### A DDONUAPLUS, CBCNO, PROCRERAT, [id number], RENAL, PTH, URIC, MG #### [facility] [address] WBC,Urine 1 [HPF] Normal 0-4 [facility] Comment on above: Order Comment: Name Collection Type:: Clean-Voided Midstream Performed By: #### A DDONUAPLUS, CBCNO, PROCRERAT, [id number], RENAL, PTH, URIC, MG #### [facility] [address] Epithelial cells.squamous [# /area] in Urine sediment by Automated countOrdered By: Alta Schmid on 03-14-2024 Epithelial cells.squamous Auto (Urine sed) [#/Area] Epithelial cells.squamous [#/area] in Urine sediment by Automated count High 0-2 [facility] Erythrocyte distribution wid th Auto (RBC) [Ratio]Ordered By: Alta Schmid on 03-14-2024 Erythrocyte distribution width (RBC) [Ratio] Erythrocyte distribution width [Ratio] by Automated count 11.9-15.3 [facility] Erythrocytes [#/area] in Uri ne sediment by Automated countOrdered By: Alta Schmid on 03-14-2024 RBC Auto (Urine sed) [#/Area] Erythrocytes [#/area] in Urine sediment by Automated count 0-4 [facility] Glucose [Mass/volume] in Ser um or PlasmaOrdered By: Alta Schmid on 03-14-2024 Glucose [Mass/Vol] Glucose [Mass/volume] in Serum or Plasma High 70-100 [facility] Comment on above: ADA recommended refe [...] in Urine by Test strip High Normal [facility] Hematocrit Auto (Bld) [Volum e fraction]Ordered By: Alta Schmid on 03-14-2024 Hematocrit (Bld) [Volume fraction] Hematocrit [Volume Fraction] of Blood by Automated count 34.0-46.4 [facility] Hemoglobin Test strip Ql (U) Ordered By: Alta Schmid on 03-14-2024 Hemoglobin Ql (U) Hemoglobin [Presence] in Urine by Test strip Negative [facility] Hemoglobin [Mass/volume] in BloodOrdered By: Alta Schmid on 03-14-2024 Hemoglobin (Bld) [Mass/Vol] Hemoglobin [Mass/volume] in Blood 11.8-15.4 [facility] Hemogram CBC Without Diffon 03-14-2024 Erythrocyte distribution width (RBC) [Ratio] 14.5 % Normal 11.9-15.3 [facility] Comment on above: Performed By: #### A DDONUAPLUS, CBCNO, PROCRERAT, [id number], RENAL, PTH, URIC, MG #### [address] Hematocrit (Bld) [Volume fraction] 43.9 % Normal 34.0-46.4 [facility] Comment on above: Performed By: #### A DDONUAPLUS, CBCNO, PROCRERAT, [id number], RENAL, PTH, URIC, MG #### [address] Hemoglobin (Bld) [Mass/Vol] 15.1 g/dL Normal 11.8-15.4 [facility] Comment on above: Performed By: #### A DDONUAPLUS, CBCNO, PROCRERAT, [id number], RENAL, PTH, URIC, MG #### [address] MCH (RBC) [Entitic mass] 31.0 pg Normal 24.7-34.3 [facility] Comment on above: Performed By: #### A DDONUAPLUS, CBCNO, PROCRERAT, [id number], RENAL, PTH, URIC, MG #### [address] MCV (RBC) [Entitic vol] 90.4 fL Normal 80-100 [facility] Comment on above: Performed By: #### A DDONUAPLUS, CBCNO, PROCRERAT, [id number], RENAL, PTH, URIC, MG #### [address] Mean Corpuscular HGB Conc 34.3 g/dL Normal 32.0-35.0 [facility] Comment on above: Performed By: #### A DDONUAPLUS, CBCNO, PROCRERAT, [id number], RENAL, PTH, URIC, MG #### [address] Platelet mean volume (Bld) [Entitic vol] 8.7 fL Normal 6.3-10.7 [facility] Comment on above: Result Comment: PERF ORMED BY: [place] [address] PATHOLOGIST BUREAU DIRECTOR SHANTE LOMBARDI M.D. Performed By: #### A DDONUAPLUS, CBCNO, PROCRERAT, [id number], RENAL, PTH, URIC, MG #### [address] Platelets (Bld) [#/Vol] 268 10*3/uL Normal 150-450 [facility] Comment on above: Performed By: #### A DDONUAPLUS, CBCNO, PROCRERAT, [id number], RENAL, PTH, URIC, MG #### [address] RBC (Bld) [#/Vol] 4.86 10*6/uL Normal 3.60-5.00 [facility] Comment on above: Performed By: #### A DDONUAPLUS, CBCNO, PROCRERAT, [id number], RENAL, PTH, URIC, MG #### [address] WBC (Bld) [#/Vol] 11.8 10*3/uL High 3.8-11.6 [facility] Comment on above: Performed By: #### A DDONUAPLUS, CBCNO, PROCRERAT, [id number], RENAL, PTH, URIC, MG #### [facility] [address] Hyaline casts [#/area] in Ur ine sediment by Automated countOrdered By: Alta Schmid on 03-14-2024 Hyaline casts Auto (Urine sed) [#/Area] Hyaline casts [#/area] in Urine sediment by Automated count 0-8 [facility] Ketones Test strip Ql (U)Ord ered By: Alta Schmid on 03-14-2024 Ketones Ql (U) Ketones [Presence] in Urine by Test strip Negative [facility] Leukocyte esterase [Presence ] in Urine by Test stripOrdered By: Alta Schmid on 03-14-2024 Leukocyte esterase Test strip Ql (U) Leukocyte esterase [Presence] in Urine by Test strip Negative [facility] Leukocytes [#/area] in Urine sediment by Automated countOrdered By: Alta Schmid on 03-14-2024 WBC Auto (Urine sed) [#/Area] Leukocytes [#/area] in Urine sediment by Automated count 0-4 [facility] Leukocytes [#/volume] correc janet for nucleated erythrocytes in Blood by Automated counOrdered By: Alta Schmid on 03-14-2024 WBC corrected for nucl RBC Auto (Bld) [#/Vol] Leukocytes [#/volume] corrected for nucleated erythrocytes in Blood by Automated coun High 3.8-11.6 [facility] MCH Auto (RBC) [Entitic mass ]Ordered By: Alta Schmid on 03-14-2024 MCH (RBC) [Entitic mass] MCH [Entitic ma ss] by Automated count 24.7-34.3 [facility] MCHC Auto (RBC) [Mass/Vol]Or dered By: Alta Schmid on 03-14-2024 MCHC (RBC) [Mass/Vol] MCHC [Mass/volume] by Automated count 32.0-35.0 [facility] MCV Auto (RBC) [Entitic vol] Ordered By: Alta Schmid on 03-14-2024 MCV (RBC) [Entitic vol] MCV [Entitic volume] by Automated count 80-100 [facility] Magnesiumon 03-14-2024 Magnesium [Mass/Vol] 1.3 mg/dL Low 1.9-2.7 [facility] Comment on above: Performed By: #### V [id number], URIC, ADDONUAPLUS, CBCNO, PROCRERAT, RENAL, MG, PTH #### [facility] [address] Magnesium [Mass/volume] in S carlos or PlasmaOrdered By: Alta Schmid on 03-14-2024 Magnesium [Mass/Vol] Magnesium [Mass/volume] in Serum or Plasma Low 1.9-2.7 [facility] Mucus [Presence] in Urine by AutomatedOrdered By: Alta Schmid on 03-14-2024 Mucus Auto Ql (U) Mucus [Presence] in Urine by Automated [facility] Nitrite Test strip Ql (U)Ord ered By: Alta Schmid on 03-14-2024 Nitrite Ql (U) Nitrite [Presence] in Urine by Test strip Negative [facility] No Panel InformationOrdered By: Alta Schmid on 03-14-2024 Estimated GFR (CKD-EPI) 39.618 mL/Min [facility] Creatinine Clearance (Chem N/A [facility] Parathyrin.intact [Mass/volu me] in Serum or PlasmaOrdered By: Alta Schmid on 03-14-2024 Parathyrin.intact [Mass/Vol] Parathyrin.intact [Mass/volume] in Serum or Plasma [facility] Parathyroid Hormone Intacton 03-14-2024 Parathyroid Hormone Intact 50.5 pg/mL Normal [facility] Comment on above: Result Comment: PERF ORMED BY: [facility] [address] [place] [address] PATHOLOGIST BUREAU DIRECTOR SHANTE LOMBARDI M.D. Performed By: #### V [id number], URIC, ADDONUAPLUS, CBCNO, PROCRERAT, RENAL, MG, PTH #### [facility] [address] [place] [id number] [facility] Phosphate [Mass/volume] in S carlos or PlasmaOrdered By: Alta Schmid on 03-14-2024 Phosphate [Mass/Vol] Phosphate [Mass/volume] in Serum or Plasma 2.5-4.5 [facility] Platelet mean volume Auto (B ld) [Entitic vol]Ordered By: Alta Schmid on 03-14-2024 Platelet mean volume (Bld) [Entitic vol] Platelet mean volume [Entitic volume] in Blood by Automated count 6.3-10.7 [facility] Platelets Auto (Bld) [#/Vol] Ordered By: Alta Schmid on 03-14-2024 Platelets (Bld) [#/Vol] Platelets [#/volume] in Blood by Automated count 150-450 [facility] Potassium [Moles/volume] in Serum or PlasmaOrdered By: Alta Schmid on 03-14-2024 Potassium [Moles/Vol] Potassium [Moles/volume] in Serum or Plasma 3.5-5.1 [facility] Protein Creat Ratio Ur Rando mon 03-14-2024 Creatinine, Urine (Random) 25.00 mg/dL Normal [facility] Comment on above: Result Comment: No r eference range established Performed By: #### V [id number], URIC, ADDONUAPLUS, CBCNO, PROCRERAT, RENAL, MG, PTH #### [address] Protein (U) [Mass/Vol] 9 mg/dL Normal 0-9 [facility] Comment on above: Performed By: #### V [id number], URIC, ADDONUAPLUS, CBCNO, PROCRERAT, RENAL, MG, PTH #### [address] Urine Protein/Creatinine Ratio 360 mg/g{Cre} High 0-200 [facility] Comment on above: Result Comment: PERF ORMED BY: [place] [address] PATHOLOGIST BUREAU DIRECTOR SHANTE LOMBARDI M.D. Performed By: #### V [id number], URIC, ADDONUAPLUS, CBCNO, PROCRERAT, RENAL, MG, PTH #### [place] [address] Protein Test strip (U) [Mass /Vol]Ordered By: Alta Schmid on 03-14-2024 Protein (U) [Mass/Vol] Protein [Mass/volume] in Urine by Test strip Negative [facility] Protein [Mass/volume] in Uri neOrdered By: Alta Sharmaine on 03-14-2024 Protein (U) [Mass/Vol] Protein [Mass/volume] in Urine 0-9 [facility] RBC Auto (Bld) [#/Vol]Ordere d By: Alta Sharmaine on 03-14-2024 RBC (Bld) [#/Vol] Erythrocytes [#/volume] in Blood by Automated count 3.60-5.00 [facility] Renal Function Panelon 03-14 Albumin [Mass/Vol] 3.9 g/dL Normal 3.5-5.7 [facility] Comment on above: Performed By: #### V [id number], URIC, ADDONUAPLUS, CBCNO, PROCRERAT, RENAL, MG, PTH #### [address] Anion gap [Moles/Vol] 12.5 mmol/L Normal 6.0-15.0 [facility] Comment on above: Performed By: #### V [id number], URIC, ADDONUAPLUS, CBCNO, PROCRERAT, RENAL, MG, PTH #### [address] Calcium [Mass/Vol] 9.3 mg/dL Normal 8.6-10.3 [facility] Comment on above: Performed By: #### V [id number], URIC, ADDONUAPLUS, CBCNO, PROCRERAT, RENAL, MG, PTH #### [place] [address] [place] Chloride [Moles/Vol] 100 mmol/L Normal 98-107 [facility] Comment on above: Performed By: #### V [id number], URIC, ADDONUAPLUS, CBCNO, PROCRERAT, RENAL, MG, PTH #### [address] [place] [address] [place] CO2 [Moles/Vol] 28.3 mmol/L Normal 21.0-31.[address] [facility] Comment on above: Performed By: #### V [id number], URIC, ADDONUAPLUS, CBCNO, PROCRERAT, RENAL, MG, PTH #### [facility] [address] Creatinine [Mass/Vol] 1.44 mg/dL High 0.60-1.20 [facility] Comment on above: Performed By: #### V [id number], URIC, ADDONUAPLUS, CBCNO, PROCRERAT, RENAL, MG, PTH #### [facility] [address] [place] [address] [place] GFR/1.73 sq M.predicted MDRD (S/P/Bld) [Vol rate/Area] 39.618 mL/min/{1.73_m2} Normal [facility] Comment on above: Performed By: #### V [id number], URIC, ADDONUAPLUS, CBCNO, PROCRERAT, RENAL, MG, PTH #### [facility] [address] [place] [address] [place] Glucose [Mass/Vol] 361 mg/dL High 70-100 [facility] Comment on above: Result Comment: [place] Glucose Reference Range is dependent on time and content of last meal. Glucose of more than 200 mg/dL in a nonstressed, ambulatory subject supports the diagnosis of Diabetes Mellitus. ADA recommended reference range Performed By: #### V [id number], URIC, ADDONUAPLUS, CBCNO, PROCRERAT, RENAL, MG, PTH #### [facility] [address] [place] [id number] [place] Phosphate [Mass/Vol] 3.0 mg/dL Normal 2.5-4.5 [facility] Comment on above: Performed By: #### V [id number], URIC, ADDONUAPLUS, CBCNO, PROCRERAT, RENAL, MG, PTH #### [facility] [address] [place] [address] [place] Potassium [Moles/Vol] 4.8 mmol/L Normal 3.5-5.1 [facility] Comment on above: Performed By: #### V [id number], URIC, ADDONUAPLUS, CBCNO, PROCRERAT, RENAL, MG, PTH #### [facility] [address] Sodium [Moles/Vol] 136 mmol/L Normal 136-145 [facility] Comment on above: Performed By: #### V [id number], URIC, ADDONUAPLUS, CBCNO, PROCRERAT, RENAL, MG, PTH #### [facility] [address] Urea nitrogen [Mass/Vol] 27 mg/dL High 7-25 [facility] Comment on above: Performed By: #### V [id number], URIC, ADDONUAPLUS, CBCNO, PROCRERAT, RENAL, MG, PTH #### [facility] [address] Serum or plasma anion gap de terminationOrdered By: Alta Sharmaine on 03-14-2024 Anion gap [Moles/Vol] Serum or plasma anion gap determination 6.0-15.0 [facility] Sodium [Moles/volume] in Ser um or PlasmaOrdered By: Alta Sharmaine on 03-14-2024 Sodium [Moles/Vol] Sodium [Moles/volume] in Serum or Plasma 136-145 [facility] Specific gravity Test strip (U) [Rel density]Ordered By: Alta Sharmaine on 03-14-2024 Specific gravity (U) [Rel density] Specific gravity of Urine by Test strip 1.001-1.030 [facility] Urate [Mass/volume] in Serum or PlasmaOrdered By: Alta Sharmaine on 03-14-2024 Urate [Mass/Vol] Urate [Mass/volume] in Serum or Plasma High 2.3-6.6 [facility] Urea nitrogen [Mass/volume] in Serum or PlasmaOrdered By: Alta Sharmaine on 03-14-2024 Urea nitrogen [Mass/Vol] Urea nitrogen [Mass/volume] in Serum or Plasma High 7-25 [facility] Uric Acidon 03-14-2024 Urate [Mass/Vol] 6.9 mg/dL High 2.3-6.[address] [facility] Comment on above: Performed By: #### V [id number], URIC, ADDONUAPLUS, CBCNO, PROCRERAT, RENAL, MG, PTH #### [facility] [address] [place] [id number] [facility] Urine protein/creatinine rat ioOrdered By: Alta Schmid on 03-14-2024 Protein/Creatinine (U) [Ratio] Urine protein/creatinine ratio High 0-200 [facility] Urobilinogen Test strip (U) [Mass/Vol]Ordered By: Alta Schmid on 03-14-2024 Urobilinogen (U) [Mass/Vol] Urobilinogen [Mass/volume] in Urine by Test strip Normal [facility] Vitamin D 25 Hydroxy Totalon 03-14-2024 Vitamin D 25 Hydroxy Total 30.4 ng/mL Normal 30-100 [facility] Comment on above: Result Comment: DEBORAH MIN D STATUS 25(OH)VITAMIN D RANGE (ng/mL) Deficient <20 Insufficient 20 to <30 Sufficient 30 to 100 Reference: Raven MF,Isai NC, Randa WALSH, et al. Evaluation,treatment, and prevention of vitamin D deficiency; an Endocrine Society clinical practice guideline. JCEM. 2010; 96(7):1911-30. PERFORMED BY: [address] [place] [address] PATHOLOGIST BUREAU DIRECTOR SHANTE LOMBARDI M.D. Performed By: #### V [id number], URIC, ADDONUAPLUS, CBCNO, PROCRERAT, RENAL, MG, PTH #### [facility] [address] [place] [address] [facility] Vitamin D+Metabolites [Mass/ volume] in Serum or PlasmaOrdered By: Alta Schmid on 03-14-2024 Vitamin D+Metabolites [Mass/Vol] Vitamin D+Metabolites [Mass/volume] in Serum or Plasma 30-100 [facility] Comment on above: VITAMIN D STATUS 25( [place])VITAMIN D RANGE (ng/mL) Deficient <20 Insufficient 20 to <30Sufficient 30 to 100Reference: Raven MF,Isai NC, Randa WALSH, et al. Evaluation,treatment, and prevention of vitamin D deficiency; an Endocrine Society clinical practice guideline. JCEM. 2010; 96(7):1911-30. pH Test strip (U)Ordered By: Alta Schmid on 03-14-2024 pH (U) pH of Urine by Test strip 5.0-9.0 [facility] Albumin [Mass/volume] in Ser um or Plasma by Bromocresol green (BCG) dye binding methoOrdered By: Alta Schmid on 09-12-2023 Albumin BCG dye [Mass/Vol] 3.9 g/dL 3.5-5.7 [facility] Automated erythrocytes count in urine sediment (number/area)Ordered By: Alta Schmid on 09-12-2023 RBC Auto (Urine sed) [#/Area] None seen [HPF] 0-4 [facility] Automated leukocytes count i n urine sediment (number/area)Ordered By: Alta Schmid on 09-12-2023 WBC Auto (Urine sed) [#/Area] 0-1 [HPF] 0-4 [facility] Bilirubin Test strip Ql (U)O rdered By: Alta Fletcherr on 09-12-2023 Bilirubin Ql (U) Negative Negative [facility] Calcium [Mass/volume] in Ser um or PlasmaOrdered By: Alta Sharmaine on 09-12-2023 Calcium [Mass/Vol] 9.3 mg/dL 8.6-10.3 [facility] Carbon dioxide, total [Moles /volume] in Serum or PlasmaOrdered By: Alta Sharmaine on 09-12-2023 CO2 [Moles/Vol] 26.0 mmol/L 21.0-31.0 [facility] Chloride [Moles/volume] in S carlos or PlasmaOrdered By: Alta Sharmaine on 09-12-2023 Chloride [Moles/Vol] 101 mmol/L 98-107 [facility] Color Auto (U)Ordered By: Ab richard Schmid on 09-12-2023 Color (U) Yellow Yellow [facility] Creatinine [Mass/volume] in Serum or PlasmaOrdered By: Alta Schmid on 09-12-2023 Creatinine [Mass/Vol] 1.41 mg/dL 0.60-1.20 [facility] Creatinine [Mass/volume] in UrineOrdered By: Alta Schmid on 09-12-2023 Creatinine (U) [Mass/Vol] 59.0 mg/dL [facility] Comment on above: No reference range e stablished Erythrocyte distribution wid th Auto (RBC) [Ratio]Ordered By: Alta Schmid on 09-12-2023 Erythrocyte distribution width (RBC) [Ratio] 15.2 % 11.9-15.3 [facility] Glucose [Mass/volume] in Ser um or PlasmaOrdered By: Alta Schmid on 09-12-2023 Glucose [Mass/Vol] 333 mg/dL 70-100 [facility] Comment on above: ADA recommended refe rence rangeRandom Glucose Reference Range is dependent on time and content of last meal. Glucose of more than 200 mg/dL in a nonstressed, ambulatory subject supports the diagnosis of Diabetes Mellitus. Hematocrit Auto (Bld) [Volum e fraction]Ordered By: Alta Schmid on 09-12-2023 Hematocrit (Bld) [Volume fraction] 43.7 % 34.0-46.4 [facility] Hemoglobin [Mass/volume] in BloodOrdered By: Alta Schmid on 09-12-2023 Hemoglobin (Bld) [Mass/Vol] 15.0 g/dL 11.8-15.4 [facility] Ketones Auto test strip (U) [Mass/Vol]Ordered By: Alta Schmid on 09-12-2023 Ketones (U) [Mass/Vol] Negative Negative [facility] Laboratory - UrinalysisOrder ed By: Alta Schmid on 09-12-2023 Hyaline casts LM Ql (Urine sed) None seen [LPF] 0-8 [facility] Leukocytes [#/volume] correc janet for nucleated erythrocytes in Blood by Automated counOrdered By: Alta Schmid on 09-12-2023 WBC corrected for nucl RBC Auto (Bld) [#/Vol] 13.1 10*3/uL 3.8-11.6 [facility] MCH Auto (RBC) [Entitic mass ]Ordered By: Alta Schmid on 09-12-2023 MCH (RBC) [Entitic mass] 30.3 pg 24.7-34.3 [facility] MCHC Auto (RBC) [Mass/Vol]Or dered By: Alta Schmid on 09-12-2023 MCHC (RBC) [Mass/Vol] 34.4 g/dL 32.0-35.0 [facility] MCV Auto (RBC) [Entitic vol] Ordered By: Alta Schmid on 09-12-2023 MCV (RBC) [Entitic vol] 88.2 fL 80-100 [facility] Magnesium [Mass/volume] in S carlos or PlasmaOrdered By: Alta Schmid on 09-12-2023 Magnesium [Mass/Vol] 1.4 mg/dL 1.9-2.7 [facility] Nitrite Test strip Ql (U)Ord ered By: Alta Schmid on 09-12-2023 Nitrite Ql (U) Negative Negative [facility] No Panel InformationOrdered By: Alta Schmid on 09-12-2023 Estimated GFR (CKD-EPI) 40.884 mL/Min [facility] Creatinine Clearance (Chem N/A [facility] Parathyrin.intact [Mass/volu me] in Serum or PlasmaOrdered By: Alta Schmid on 09-12-2023 Parathyrin.intact [Mass/Vol] 63.3 pg/mL 12- [facility] Phosphate [Mass/volume] in S carlos or PlasmaOrdered By: Alta Schmid on 09-12-2023 Phosphate [Mass/Vol] 3.6 mg/dL 2.5-4.5 [facility] Platelet mean volume Auto (B ld) [Entitic vol]Ordered By: Alta Schmid on 09-12-2023 Platelet mean volume (Bld) [Entitic vol] 8.7 fL 6.3-10.7 [facility] Platelets Auto (Bld) [#/Vol] Ordered By: Alta Schmid on 09-12-2023 Platelets (Bld) [#/Vol] 263 10*3/uL 150-450 [facility] Potassium [Moles/volume] in Serum or PlasmaOrdered By: Alta Fletcherr on 09-12-2023 Potassium [Moles/Vol] 4.5 mmol/L 3.5-5.1 [facility] Protein Auto test strip (U) [Mass/Vol]Ordered By: Alta Fletcherr on 09-12-2023 Protein (U) [Mass/Vol] 30 mg/dL Negative [facility] Protein [Mass/volume] in Uri neOrdered By: Alta Sharmaine on 09-12-2023 Protein (U) [Mass/Vol] 47 mg/dL 0-9 [facility] RBC Auto (Bld) [#/Vol]Ordere d By: Alta Sharmaine on 09-12-2023 RBC (Bld) [#/Vol] 4.96 10*6/uL 3.60-5.00 [facility] Serum or plasma anion gap de terminationOrdered By: Alta Sharmaine on 09-12-2023 Anion gap [Moles/Vol] 12.5 mmol/L 6.0-15.0 [facility] Sodium [Moles/volume] in Ser um or PlasmaOrdered By: Alta Sharmaine on 09-12-2023 Sodium [Moles/Vol] 135 mmol/L 136-145 [facility] Specific gravity Auto test s trip (U) [Rel density]Ordered By: Alta Schmid on 09-12-2023 Specific gravity (U) [Rel density] 1.014 1.001-1.030 [facility] Squamous epithelial cells de tection in urine sediment by light microscopyOrdered By: Alta Fletcherr on 09-12-2023 Epithelial cells.squamous LM Ql (Urine sed) 1-2 [HPF] 0-2 [facility] Urate [Mass/volume] in Serum or PlasmaOrdered By: Alta Schmid on 09-12-2023 Urate [Mass/Vol] 7.9 mg/dL 2.3-6.6 [facility] Urea nitrogen [Mass/volume] in Serum or PlasmaOrdered By: Alta Schmid on 09-12-2023 Urea nitrogen [Mass/Vol] 32 mg/dL 7-25 [facility] Urine bacteria detection by automated methodOrdered By: Alta cShmid on 09-12-2023 Bacteria Auto Ql (U) None seen [HPF] None Seen [facility] Urine clarity by refractomet ry automatedOrdered By: Alta Schmid on 09-12-2023 Clarity Refractometry automated (U) Clear Clear [facility] Urine glucose measurement by automated test strip (mass/volume)Ordered By: Alta Schmid on 09-12-2023 Glucose Auto test strip (U) [Mass/Vol] 250 mg/dL Normal [facility] Urine hemoglobin detection b y automated test stripOrdered By: Alta Schmid on 09-12-2023 Hemoglobin Auto test strip Ql (U) Negative Negative [facility] Urine leukocyte esterase det ection by automated test stripOrdered By: Alta Schmid on 09-12-2023 Leukocyte esterase Auto test strip Ql (U) Negative Negative [facility] Urine protein/creatinine rat ioOrdered By: Alta Schmid on 09-12-2023 Protein/Creatinine (U) [Ratio] 797 mg/g{Cre} 0-200 [facility] Urobilinogen Auto test strip (U) [Mass/Vol]Ordered By: Alta Schmid on 09-12-2023 Urobilinogen (U) [Mass/Vol] Normal mg/dL Normal [facility] Vitamin D+Metabolites [Mass/ volume] in Serum or PlasmaOrdered By: Alta Schmid on 09-12-2023 Vitamin D+Metabolites [Mass/Vol] 53.3 ng/mL 30-100 [facility] Comment on above: VITAMIN D STATUS 25( [place])VITAMIN D RANGE (ng/mL) Deficient <20 Insufficient 20 to <30Sufficient 30 to 100Reference: Raven JEAN,Isai CLARK, Randa WALSH, et al. Evaluation,treatment, and prevention of vitamin D deficiency; an Endocrine Society clinical practice guideline. JCEM. 2010; 96(7):1911-30. pH Auto test strip (U)Ordere d By: Alta Schmid on 09-12-2023 pH (U) 5.5 [pH] 5.0-9.0 [facility] Albumin [Mass/volume] in Ser um or Plasma by Bromocresol green (BCG) dye binding methoOrdered By: Alta Schmid on 07-31-2023 Albumin BCG dye [Mass/Vol] 4.0 g/dL 3.5-5.7 [facility] Automated erythrocytes count in urine sediment (number/area)Ordered By: Alta Schmid on 07-31-2023 RBC Auto (Urine sed) [#/Area] None seen [HPF] 0-4 [facility] Automated leukocytes count i n urine sediment (number/area)Ordered By: Alta Schmid on 07-31-2023 WBC Auto (Urine sed) [#/Area] 0-1 [HPF] 0-4 [facility] Bilirubin Test strip Ql (U)O rdered By: Alta Schmid on 07-31-2023 Bilirubin Ql (U) Negative Negative [facility] Calcium [Mass/volume] in Ser um or PlasmaOrdered By: Alta Schmid on 07-31-2023 Calcium [Mass/Vol] 9.4 mg/dL 8.6-10.3 [facility] Carbon dioxide, total [Moles /volume] in Serum or PlasmaOrdered By: Alta Schmid on 07-31-2023 CO2 [Moles/Vol] 28.1 mmol/L 21.0-31.0 [facility] Chloride [Moles/volume] in S carlos or PlasmaOrdered By: Alta Schmid on 07-31-2023 Chloride [Moles/Vol] 103 mmol/L 98-107 [facility] Color Auto (U)Ordered By: Ab richard Schmid on 07-31-2023 Color (U) Yellow Yellow [facility] Creatinine [Mass/volume] in Serum or PlasmaOrdered By: Alta Schmid on 07-31-2023 Creatinine [Mass/Vol] 1.49 mg/dL 0.60-1.20 [facility] Creatinine [Mass/volume] in UrineOrdered By: Alta Schmid on 07-31-2023 Creatinine (U) [Mass/Vol] 64.0 mg/dL [facility] Comment on above: No reference range e stablished Erythrocyte distribution wid th Auto (RBC) [Ratio]Ordered By: Alta Schmid on 07-31-2023 Erythrocyte distribution width (RBC) [Ratio] 15.4 % 11.9-15.3 [facility] Glucose [Mass/volume] in Ser um or PlasmaOrdered By: Alta Schmid on 07-31-2023 Glucose [Mass/Vol] 235 mg/dL 70-100 [facility] Comment on above: ADA recommended refe rence rangeRandom Glucose Reference Range is dependent on time and content of last meal. Glucose of more than 200 mg/dL in a nonstressed, ambulatory subject supports the diagnosis of Diabetes Mellitus. Hematocrit Auto (Bld) [Volum e fraction]Ordered By: Alta Schmid on 07-31-2023 Hematocrit (Bld) [Volume fraction] 42.7 % 34.0-46.4 [facility] Hemoglobin [Mass/volume] in BloodOrdered By: Alta Schmid on 07-31-2023 Hemoglobin (Bld) [Mass/Vol] 14.4 g/dL 11.8-15.4 [facility] Ketones Auto test strip (U) [Mass/Vol]Ordered By: Alta Schmid on 07-31-2023 Ketones (U) [Mass/Vol] Negative Negative [facility] Laboratory - UrinalysisOrder ed By: Alta Schmid on 07-31-2023 Hyaline casts LM Ql (Urine sed) 0-8 [LPF] 0-8 [facility] Leukocytes [#/volume] correc janet for nucleated erythrocytes in Blood by Automated counOrdered By: Alta Schmid on 07-31-2023 WBC corrected for nucl RBC Auto (Bld) [#/Vol] 12.8 10*3/uL 3.8-11.6 [facility] MCH Auto (RBC) [Entitic mass ]Ordered By: Alta Schmid on 07-31-2023 MCH (RBC) [Entitic mass] 29.9 pg 24.7-34.3 [facility] MCHC Auto (RBC) [Mass/Vol]Or dered By: Alta Schmid on 07-31-2023 MCHC (RBC) [Mass/Vol] 33.6 g/dL 32.0-35.0 [facility] MCV Auto (RBC) [Entitic vol] Ordered By: Alta Schmid on 07-31-2023 MCV (RBC) [Entitic vol] 89.0 fL 80-100 [facility] Magnesium [Mass/volume] in S carlos or PlasmaOrdered By: Alta Schmid on 07-31-2023 Magnesium [Mass/Vol] 1.3 mg/dL 1.9-2.7 [facility] Nitrite Test strip Ql (U)Ord ered By: Alta Schmid on 07-31-2023 Nitrite Ql (U) Negative Negative [facility] No Panel InformationOrdered By: Alta Schmid on 07-31-2023 Estimated GFR (CKD-EPI) 38.264 mL/Min [facility] Creatinine Clearance (Chem 38.44 [facility] Parathyrin.intact [Mass/volu me] in Serum or PlasmaOrdered By: Alta Schmid on 07-31-2023 Parathyrin.intact [Mass/Vol] 47.7 pg/mL 12-88 [facility] Phosphate [Mass/volume] in S carlos or PlasmaOrdered By: Alta Schmid on 07-31-2023 Phosphate [Mass/Vol] 3.6 mg/dL 2.5-4.5 [facility] Platelet mean volume Auto (B ld) [Entitic vol]Ordered By: Alta Schmid on 07-31-2023 Platelet mean volume (Bld) [Entitic vol] 8.3 fL 6.3-10.7 [facility] Platelets Auto (Bld) [#/Vol] Ordered By: Alta Schmid on 07-31-2023 Platelets (Bld) [#/Vol] 270 10*3/uL 150-450 [facility] Potassium [Moles/volume] in Serum or PlasmaOrdered By: Alta Schmid on 07-31-2023 Potassium [Moles/Vol] 4.7 mmol/L 3.5-5.1 [facility] Protein Auto test strip (U) [Mass/Vol]Ordered By: Alta Schmid on 07-31-2023 Protein (U) [Mass/Vol] Negative Negative [facility] Protein [Mass/volume] in Uri neOrdered By: Alta Schmid on 07-31-2023 Protein (U) [Mass/Vol] 16 mg/dL 0-9 [facility] RBC Auto (Bld) [#/Vol]Ordere d By: Alta Schmid on 07-31-2023 RBC (Bld) [#/Vol] 4.80 10*6/uL 3.60-5.00 [facility] Serum or plasma anion gap de terminationOrdered By: Alta Schmid on 07-31-2023 Anion gap [Moles/Vol] 12.6 mmol/L 6.0-15.0 [facility] Sodium [Moles/volume] in Ser um or PlasmaOrdered By: Alta Schmid on 07-31-2023 Sodium [Moles/Vol] 139 mmol/L 136-145 [facility] Specific gravity Auto test s trip (U) [Rel density]Ordered By: Alta Schmid on 07-31-2023 Specific gravity (U) [Rel density] 1.012 1.001-1.030 [facility] Squamous epithelial cells de tection in urine sediment by light microscopyOrdered By: Alta Schmid on 07-31-2023 Epithelial cells.squamous LM Ql (Urine sed) 0-1 [HPF] 0-2 [facility] Urate [Mass/volume] in Serum or PlasmaOrdered By: Alta Schmid on 07-31-2023 Urate [Mass/Vol] 9.9 mg/dL 2.3-6.6 [facility] Urea nitrogen [Mass/volume] in Serum or PlasmaOrdered By: Alta Schmid on 07-31-2023 Urea nitrogen [Mass/Vol] 29 mg/dL 7-25 [facility] Urine bacteria detection by automated methodOrdered By: Alta Schmid on 07-31-2023 Bacteria Auto Ql (U) None seen None Seen [facility] Urine clarity by refractomet ry automatedOrdered By: Alta Schmid on 07-31-2023 Clarity Refractometry automated (U) Clear Clear [facility] Urine glucose measurement by automated test strip (mass/volume)Ordered By: Alta Schmid on 07-31-2023 Glucose Auto test strip (U) [Mass/Vol] Normal mg/dL Normal [facility] Urine hemoglobin detection b y automated test stripOrdered By: Alta Schmid on 07-31-2023 Hemoglobin Auto test strip Ql (U) Negative Negative [facility] Urine leukocyte esterase det ection by automated test stripOrdered By: Alta Schmid on 07-31-2023 Leukocyte esterase Auto test strip Ql (U) Negative Negative [facility] Urine protein/creatinine rat ioOrdered By: Alta Schmid on 07-31-2023 Protein/Creatinine (U) [Ratio] 250 mg/g{Cre} 0-200 [facility] Urobilinogen Auto test strip (U) [Mass/Vol]Ordered By: Alta Schmid on 07-31-2023 Urobilinogen (U) [Mass/Vol] Normal mg/dL Normal [facility] Vitamin D+Metabolites [Mass/ volume] in Serum or PlasmaOrdered By: Alta Schmid on 07-31-2023 Vitamin D+Metabolites [Mass/Vol] 41.8 ng/mL 30-100 [facility] Comment on above: VITAMIN D STATUS 25( [place])VITAMIN D RANGE (ng/mL) Deficient <20 Insufficient 20 to <30Sufficient 30 to 100Reference: Raven MF,Isai CLARK, Randa WALSH, et al. Evaluation,treatment, and prevention of vitamin D deficiency; an Endocrine Society clinical practice guideline. JCEM. 2010; 96(7):1911-30. pH Auto test strip (U)Ordere d By: Alta Schmid on 07-31-2023 pH (U) 6.0 [pH] 5.0-9.0 [facility] Basophils Auto (Bld) [#/Vol] Ordered By: Yakelin Staley on 06-22-2023 Basophils (Bld) [#/Vol] 0.1 10*3/uL 0.0-0.2 [facility] Basophils/100 WBC Auto (Bld) Ordered By: Yakelin Staley on 06-22-2023 Basophils/100 WBC (Bld) 0.8 % . F [facility] Eosinophils Auto (Bld) [#/Vo l]Ordered By: Yakelin Staley on 06-22-2023 Eosinophils (Bld) [#/Vol] 0.2 10*3/uL 0.0-0.45 [facility] Eosinophils/100 WBC Auto (Bl d)Ordered By: Yakelin Staley on 06-22-2023 Eosinophils/100 WBC (Bld) 1.7 % . [facility] Erythrocyte distribution wid th Auto (RBC) [Ratio]Ordered By: Yakelin Staley on 06-22-2023 Erythrocyte distribution width (RBC) [Ratio] 15.0 % 11.9-15.3 [facility] Hematocrit Auto (Bld) [Volum e fraction]Ordered By: Yakelin Staley on 06-22-2023 Hematocrit (Bld) [Volume fraction] 42.7 % 34.0-46.4 [facility] Hemoglobin [Mass/volume] in BloodOrdered By: Yakelin Staley on 06-22-2023 Hemoglobin (Bld) [Mass/Vol] 14.5 g/dL 11.8-15.4 [facility] Leukocytes [#/volume] correc janet for nucleated erythrocytes in Blood by Automated counOrdered By: Yakelin Staley on 06-22-2023 WBC corrected for nucl RBC Auto (Bld) [#/Vol] 14.3 10*3/uL 3.8-11.6 [facility] Lymphocytes Auto (Bld) [#/Vo l]Ordered By: Yakelin Staley on 06-22-2023 Lymphocytes (Bld) [#/Vol] 2.6 10*3/uL 1.00-4.8 [facility] Lymphocytes/100 WBC Auto (Bl d)Ordered By: Yakelin Staley on 06-22-2023 Lymphocytes/100 WBC (Bld) 18.0 % . [facility] MCH Auto (RBC) [Entitic mass ]Ordered By: Yakelin Staley on 06-22-2023 MCH (RBC) [Entitic mass] 30.3 pg 24.7-34.3 [facility] MCHC Auto (RBC) [Mass/Vol]Or dered By: Yakelin Staley on 06-22-2023 MCHC (RBC) [Mass/Vol] 33.9 g/dL 32.0-35.0 [facility] MCV Auto (RBC) [Entitic vol] Ordered By: Yakelin Staley on 06-22-2023 MCV (RBC) [Entitic vol] 89.4 fL 80-100 [facility] Monocytes Auto (Bld) [#/Vol] Ordered By: Yakelin Staley on 06-22-2023 Monocytes (Bld) [#/Vol] 0.7 10*3/uL 0.0-0.8 [facility] Monocytes/100 WBC Auto (Bld) Ordered By: Yakelin Staley on 06-22-2023 Monocytes/100 WBC (Bld) 5.2 % . [facility] Neutrophils Auto (Bld) [#/Vo l]Ordered By: Yakelin Staley on 06-22-2023 Neutrophils (Bld) [#/Vol] 10.6 10*3/uL 1.8-7.7 [facility] Neutrophils/100 WBC Auto (Bl d)Ordered By: Yakelin Staley on 06-22-2023 Neutrophils/100 WBC (Bld) 74.3 % . [facility] Nucleated erythrocytes [Pres ence] in Blood by Automated countOrdered By: Yakelin Staley on 06-22-2023 Nucleated RBC Auto Ql (Bld) 0.1 /100{WBC} 0-0.5 [facility] Platelet mean volume Auto (B ld) [Entitic vol]Ordered By: Yakelin Staley on 06-22-2023 Platelet mean volume (Bld) [Entitic vol] 8.3 fL 6.3-10.7 [facility] Platelets Auto (Bld) [#/Vol] Ordered By: Yakelin Staley on 06-22-2023 Platelets (Bld) [#/Vol] 262 10*3/uL 150-450 [facility] RBC Auto (Bld) [#/Vol]Ordere d By: Yakelin Staley on 06-22-2023 RBC (Bld) [#/Vol] 4.77 10*6/uL 3.60-5.00 [facility] WBC Auto (Bld) [#/Vol]Ordere d By: Yakelin Contrerasjuan pablo on 06-22-2023 WBC (Bld) [#/Vol] 14.3 10*3/uL 3.8-11.6 [facility] Albumin [Mass/volume] in Ser um or Plasma by Bromocresol green (BCG) dye binding methoOrdered By: Alta Schmid on 03-04-2023 Albumin BCG dye [Mass/Vol] 4.1 g/dL 3.5-5.7 [facility] Automated erythrocytes count in urine sediment (number/area)Ordered By: Alta Schmid on 03-04-2023 RBC Auto (Urine sed) [#/Area] 0-1 [HPF] 0-4 [facility] Automated leukocytes count i n urine sediment (number/area)Ordered By: Alta Schmid on 03-04-2023 WBC Auto (Urine sed) [#/Area] 5-9 [HPF] 0-4 [facility] Bilirubin Test strip Ql (U)O rdered By: Alta Schmid on 03-04-2023 Bilirubin Ql (U) Negative Negative [facility] Calcium [Mass/volume] in Ser um or PlasmaOrdered By: Alta Schmid on 03-04-2023 Calcium [Mass/Vol] 9.2 mg/dL 8.6-10.3 [facility] Carbon dioxide, total [Moles /volume] in Serum or PlasmaOrdered By: Alta Schmid on 03-04-2023 CO2 [Moles/Vol] 25.4 mmol/L 21.0-31.0 [facility] Chloride [Moles/volume] in S carlos or PlasmaOrdered By: Alta Schmid on 03-04-2023 Chloride [Moles/Vol] 104 mmol/L 98-107 [facility] Color Auto (U)Ordered By: Ab richard Schmid on 03-04-2023 Color (U) Yellow Yellow [facility] Creatinine [Mass/volume] in Serum or PlasmaOrdered By: Alta Schmid on 03-04-2023 Creatinine [Mass/Vol] 1.59 mg/dL 0.60-1.20 [facility] Creatinine [Mass/volume] in UrineOrdered By: Alta Schmid on 03-04-2023 Creatinine (U) [Mass/Vol] 100.0 mg/dL 11.0-20.0 [facility] Erythrocyte distribution wid th Auto (RBC) [Ratio]Ordered By: Alta Schmid on 03-04-2023 Erythrocyte distribution width (RBC) [Ratio] 14.8 % 11.9-15.3 [facility] Glucose [Mass/volume] in Ser um or PlasmaOrdered By: Alta Schmid on 03-04-2023 Glucose [Mass/Vol] 232 mg/dL 70-100 [facility] Comment on above: ADA recommended refe rence rangeRandom Glucose Reference Range is dependent on time and content of last meal. Glucose of more than 200 mg/dL in a nonstressed, ambulatory subject supports the diagnosis of Diabetes Mellitus. Hematocrit Auto (Bld) [Volum e fraction]Ordered By: Alta Schmid on 03-04-2023 Hematocrit (Bld) [Volume fraction] 42.6 % 34.0-46.4 [facility] Hemoglobin [Mass/volume] in BloodOrdered By: Alta Schmid on 03-04-2023 Hemoglobin (Bld) [Mass/Vol] 14.5 g/dL 11.8-15.4 [facility] Ketones Auto test strip (U) [Mass/Vol]Ordered By: Alta Schmid on 03-04-2023 Ketones (U) [Mass/Vol] Negative Negative [facility] Laboratory - UrinalysisOrder ed By: Alta Schmid on 03-04-2023 Hyaline casts LM Ql (Urine sed) 0-8 [LPF] 0-8 [facility] Leukocytes [#/volume] correc janet for nucleated erythrocytes in Blood by Automated counOrdered By: Alta Schmid on 03-04-2023 WBC corrected for nucl RBC Auto (Bld) [#/Vol] 16.2 10*3/uL 3.8-11.6 [facility] MCH Auto (RBC) [Entitic mass ]Ordered By: Alta Schmid on 03-04-2023 MCH (RBC) [Entitic mass] 31.1 pg 24.7-34.3 [facility] MCHC Auto (RBC) [Mass/Vol]Or dered By: Alta Schmid on 03-04-2023 MCHC (RBC) [Mass/Vol] 34.0 g/dL 32.0-35.0 [facility] MCV Auto (RBC) [Entitic vol] Ordered By: Alta Schmid on 03-04-2023 MCV (RBC) [Entitic vol] 91.6 fL 80-100 [facility] Magnesium [Mass/volume] in S carlos or PlasmaOrdered By: Alta Schmid on 03-04-2023 Magnesium [Mass/Vol] 1.4 mg/dL 1.9-2.7 [facility] Nitrite Test strip Ql (U)Ord ered By: Alta Schmid on 03-04-2023 Nitrite Ql (U) Negative Negative [facility] No Panel InformationOrdered By: Alta Schmid on 03-04-2023 Estimated GFR (CKD-EPI) 35.395 mL/Min [facility] Creatinine Clearance (Chem N/A [facility] Parathyrin.intact [Mass/volu me] in Serum or PlasmaOrdered By: Alta Schmid on 03-04-2023 Parathyrin.intact [Mass/Vol] 87.0 pg/mL 12 [facility] Phosphate [Mass/volume] in S carlos or PlasmaOrdered By: Alta Schmid on 03-04-2023 Phosphate [Mass/Vol] 4.0 mg/dL 3.7-7.2 [facility] Platelet mean volume Auto (B ld) [Entitic vol]Ordered By: Alta Schmid on 03-04-2023 Platelet mean volume (Bld) [Entitic vol] 8.5 fL 6.3-10.7 [facility] Platelets Auto (Bld) [#/Vol] Ordered By: Alta Schmid on 03-04-2023 Platelets (Bld) [#/Vol] 327 10*3/uL 150-450 [facility] Potassium [Moles/volume] in Serum or PlasmaOrdered By: Alta Schmid on 03-04-2023 Potassium [Moles/Vol] 4.9 mmol/L 3.5-5.1 [facility] Protein Auto test strip (U) [Mass/Vol]Ordered By: Alta Schmid on 03-04-2023 Protein (U) [Mass/Vol] Negative Negative [facility] Protein [Mass/volume] in Uri neOrdered By: Alta Schmid on 03-04-2023 Protein (U) [Mass/Vol] 14 mg/dL 0-9 [facility] RBC Auto (Bld) [#/Vol]Ordere d By: Alta Schmid on 03-04-2023 RBC (Bld) [#/Vol] 4.65 10*6/uL 3.60-5.00 [facility] Serum or plasma anion gap de terminationOrdered By: Alta Schmid on 03-04-2023 Anion gap [Moles/Vol] 13.5 mmol/L 6.0-15.0 [facility] Sodium [Moles/volume] in Ser um or PlasmaOrdered By: Alta Schmid on 03-04-2023 Sodium [Moles/Vol] 138 mmol/L 136-145 [facility] Specific gravity Auto test s trip (U) [Rel density]Ordered By: Alta Schmid on 03-04-2023 Specific gravity (U) [Rel density] 1.014 1.001-1.030 [facility] Squamous epithelial cells de tection in urine sediment by light microscopyOrdered By: Alta Schmid on 03-04-2023 Epithelial cells.squamous LM Ql (Urine sed) 5-9 [HPF] 0-2 [facility] Urate [Mass/volume] in Serum or PlasmaOrdered By: Alta Schmid on 03-04-2023 Urate [Mass/Vol] 10.7 mg/dL 2.3-6.6 [facility] Urea nitrogen [Mass/volume] in Serum or PlasmaOrdered By: Alta Schmid on 03-04-2023 Urea nitrogen [Mass/Vol] 42 mg/dL 7-25 [facility] Urine bacteria detection by automated methodOrdered By: Alta Schmid on 03-04-2023 Bacteria Auto Ql (U) None seen None Seen [facility] Urine clarity by refractomet ry automatedOrdered By: Alta Schmid on 03-04-2023 Clarity Refractometry automated (U) Clear Clear [facility] Urine culture routineOrdered By: Alta Schmid on 03-04-2023 Bacteria identified Cx Nom (U) 2 Days [facility] Urine glucose measurement by automated test strip (mass/volume)Ordered By: Alta Schmid on 03-04-2023 Glucose Auto test strip (U) [Mass/Vol] Normal mg/dL Normal [facility] Urine hemoglobin detection b y automated test stripOrdered By: Alta Schmid on 03-04-2023 Hemoglobin Auto test strip Ql (U) Negative Negative [facility] Urine leukocyte esterase det ection by automated test stripOrdered By: Alta Schmid on 03-04-2023 Leukocyte esterase Auto test strip Ql (U) 1+ Negative [facility] Urine protein/creatinine rat ioOrdered By: Alta Schmid on 03-04-2023 Protein/Creatinine (U) [Ratio] 140 mg/g{Cre} 0-200 [facility] Urobilinogen Auto test strip (U) [Mass/Vol]Ordered By: Alta Schmid on 03-04-2023 Urobilinogen (U) [Mass/Vol] Normal mg/dL Normal [facility] Vitamin D+Metabolites [Mass/ volume] in Serum or PlasmaOrdered By: Alta Schmid on 03-04-2023 Vitamin D+Metabolites [Mass/Vol] 41.9 ng/mL 30-100 [facility] Comment on above: VITAMIN D STATUS 25( [place])VITAMIN D RANGE (ng/mL) Deficient <20 Insufficient 20 to <30Sufficient 30 to 100Reference: Raven MF,Isai CLARK, Randa WALSH, et al. Evaluation,treatment, and prevention of vitamin D deficiency; an Endocrine Society clinical practice guideline. JCEM. 2010; 96(7):1911-30. pH Auto test strip (U)Ordere d By: Alta Schmid on 03-04-2023 pH (U) 5.5 [pH] 5.0-9.0 [facility] Office Visit (Cardiology)on 12-08-2022 Follow-up visit Diagnoses/Problems Assessed Hypertension (401.9) (I10) Current smoker (305.1) (F17.200) 1/2 pack daily. Diabetes (250.00) (E11.9) Class 1 obesity with body mass index (BMI) of 32.0 to 32.9 in adult (278.00,V85.32) (E66.9,Z68.32) Orders Class 1 obesity with body mass index (BMI) of 32.0 to 32.9 in adult Healthy Weight Tips; Status:Complete; Done: [id number] Some eating tips that can help you lose weight.; Status:Complete; Done: [id number] SocHx: Current smoker Tobacco Use Screening; Status:Complete; Done: [id number] You need to stop smoking. Though it is not easy, more than half of all adult smokers have quit. We encourage you to write down all the reasons you should quit smoking and set a quit date for yourself. Ask us how we can help. You may also call [phone] for free resources and assistance.; Status:Complete; Done: [id number] Patient Instructions Please bring all medicines, vitamins, [...] negative for complaint. Vitals Vital Signs Recorded: [id number] 08:41AM Heart Rate66, R Radial [id number], RUE, Sitting [id number], RUE, Sitting Height5 ft 3 in [id number] lb BMI Lvecofitii83.95 kg/m2 BSA Calculated1.88 Tobacco Usea) Yes Patient [...] JVP w (more content not included)... Normal [facility] Tobacco Screening.on 023 Fall risk assessment a) No falls within the last year -[facility] 250 DO Work Phone: Tobacco use status [facility] a) Yes [facility] 250 DO Work Phone: Tobacco Screening. Yes -[facility] 250 DO Work Phone: CBC AUTO DIFFon 06-28-2022 BASO # 0.1 103/ul Normal 0.0-0.1 [facility] Comment on above: Performed By: #### C BC #### [facility] [address] [place] [address] Dr. Briana Dillard Basophils/100 WBC (Bld) 0.8 % Normal 0.2-2.0 [facility] Comment on above: Performed By: #### C BC #### [facility] [address] [place] [address] Dr. Briana Dillard EO # 0.3 103/ul Normal 0.0-0.7 [facility] Comment on above: Performed By: #### C BC #### [facility] [address] [place] [address] Dr. Briana Dillard Eosinophils/100 WBC (Bld) 2.5 % Normal 0.9-7.0 [facility] Comment on above: Performed By: #### C BC #### [facility] [address] [place] [address] Dr. Briana Dillard Erythrocyte distribution width (RBC) [Ratio] 14.8 % Normal 11.0-15.0 [facility] Comment on above: Performed By: #### C BC #### [facility] [address] [place] [address] Dr. Briana Dillard Hematocrit (Bld) [Volume fraction] 43.8 % Normal 36.0-48.0 [facility] Comment on above: Performed By: #### C BC #### [facility] [address] [place] [address] Dr. Briana Dillard Hemoglobin (Bld) [Mass/Vol] 14.5 g/dL Normal 12.0-16.0 [facility] Comment on above: Performed By: #### C BC #### [facility] [address] [place] [address] Dr. Briana Dillard IG # 0.13 10e3/ul Critically high 0.00-0.03 [facility] Comment on above: Performed By: #### C BC #### [facility] [address] [place] [address] Dr. Briana Dillard IG % 1.0 % Critically high 0.0-0.5 [facility] [facility] Comment on above: Performed By: #### C BC #### [facility] [address] [place] [address] Dr. Briana Dillard LYMPH # 2.5 103/ul Normal 1.2-3.8 [facility] Comment on above: Performed By: #### C BC #### [facility] [address] [place] [address] Dr. Briana Dillard Lymphocytes/100 WBC (Bld) 19.1 % Critically low 20.5-60.0 [facility] Comment on above: Performed By: #### C BC #### [facility] [address] [place] [address] Dr. Briana Dillard MANUAL DIFF REQ NO Normal [facility] Comment on above: Performed By: #### C BC #### [facility] [address] [place], [place] [id number] Dr. Briana Dillard MCH (RBC) [Entitic mass] 30.8 pg Normal 26.7-34.0 [facility] Comment on above: Performed By: #### C BC #### [facility] [address] [place] [address] Dr. Briana Dillard MCHC (RBC) [Mass/Vol] 33.1 g/dL Normal 29.9-35.2 [facility] Comment on above: Performed By: #### C BC #### [facility] [address] [place] [address] Dr. Briana Dillard MCV (RBC) [Entitic vol] 93.0 fL Normal 81.0-99.0 [facility] Comment on above: Performed By: #### C BC #### [facility] [address] [place] [address] Dr. Briana Dillard MONO # 0.7 103/ul Normal 0.3-0.8 [facility] Comment on above: Performed By: #### C BC #### [facility] [address] [place] [address] Dr. Briana Dillard Monocytes/100 WBC (Bld) 5.7 % Normal 1.7-12.0 [facility] Comment on above: Performed By: #### C BC #### [facility] [address] [place] [address] Dr. Briana Dillard NEUT # 9.2 103/ul Critically high 1.4-6.5 [facility] Comment on above: Performed By: #### C BC #### [facility] [address] [place] [address] Dr. Briana Dillard Neutrophils/100 WBC (Bld) 70.9 % Normal 43.0-75.0 [facility] Comment on above: Performed By: #### C BC #### [facility] [address] [place] [address] Dr. Briana Dillard Platelet mean volume (Bld) [Entitic vol] 10.4 fL Normal 9.5-13.5 [facility] Comment on above: Performed By: #### C BC #### [facility] [address] [address] [address] Briana Dillard PLT 262 103/ul Normal 150-450 [facility] Comment on above: Performed By: #### C BC #### [facility] [address] [address] [address] Briana Dillard RBC 4.71 106/ul Normal 4.20-5.40 [facility] Comment on above: Performed By: #### C BC #### [facility] [address] [address] [address] Briana Dillard WBC 13.0 103/ul Critically high 4.0-11.0 [facility] Comment on above: Performed By: #### C BC #### [facility] [address] [address] [address] Briana Dillard DIRECT LDLon 06-28-2022 Cholesterol in LDL [Mass/Vol] 90 mg/dL Normal [facility] Comment on above: Performed By: #### C MP, CMADM, BNP #### [facility] [address] [place] [address] Dr. Briana Dillard DLDL NORMAL SEE BELOW Normal [facility] Comment on above: Result Comment: <100 mg/dl OPTIMAL 100 - 129 mg/dl NEAR OR ABOVE OPTIMAL 130 - 159 mg/dl BORDERLINE HIGH 160 - 189 mg/dl HIGH >190 mg/dl VERY HIGH Performed By: #### C MP, CMADM, BNP #### [facility] [address] [place] [address] Dr. Briana Dillard GLYCOHEMOGLOBIN A1Con 2022 ADA RECOMMENDATION SEE BELOW Normal [facility] Comment on above: Result Comment: ADA RECOMMENDED LIMIT 4.0 - 6.0 ADA THERAPEUTIC TARGET < 7.0 ACTION SUGGESTED > 7.0 Performed By: #### C MP, CMADM, BNP #### [facility] [address] [place] [address] Dr. Briana Dillard Glucose [Mass/Vol] 229 mg/dL Normal [facility] Comment on above: Performed By: #### C MP, CMADM, BNP #### [facility] [address] [place] [address] Dr. Briana Dillard HbA1c (Bld) [Mass fraction] 9.6 % Critically high 4.5-6.2 [facility] Comment on above: Performed By: #### C KYLE COLMENARESDM, BNP #### [facility] [address] [address] [address] Briana Dillard LIPID PROFILEon 06-28-2022 CHOL-HDL RATIO NORM SEE BELOW Normal [facility] Comment on above: Result Comment: 3.3 - 4.4 LOW RISK 4.4 - 7.1 AVERAGE RISK 7.1 - 11.0 MODERATE RISK >11.0 HIGH RISK Performed By: #### C MP CMADM, BNP #### [facility] [address] [place] [address] Dr. Briana Dillard Cholesterol [Mass/Vol] 219 mg/dL Critically high <=200 [facility] Comment on above: Performed By: #### C KYLE COLMENARESDM, BNP #### [facility] [address] [address] [address] Briana Dillard Cholesterol in HDL [Mass/Vol] 32 mg/dL Critically low 40-60 [facility] Comment on above: Performed By: #### C DARRIAN CMADM, BNP #### [facility] [address] [address] [address] Briana Dillard Cholesterol.total/Choles terol in HDL [Mass ratio] 6.8 {ratio} Normal [facility] Comment on above: Performed By: #### C MP CMADM, BNP #### [facility] [address] [address] [address] Briana Dillard HDL NORMAL > or = 60 mg/dl - LOW CARDIOVASCULAR RISK <40 mg/dl - HIGH CARDIOVASCULAR RISK Normal [facility] Comment on above: Performed By: #### C MP CMADM, BNP #### [facility] [address] [place] [address] Dr. Briana Dillard LDL CALC NORMAL SEE BELOW Normal [facility] Comment on above: Result Comment: <100 mg/dl OPTIMAL 100 - 129 mg/dl NEAR OR ABOVE OPTIMAL 130 - 159 mg/dl BORDERLINE HIGH 160 - 189 mg/dl HIGH >190 mg/dl VERY HIGH Performed By: #### C MP, CMADM, BNP #### [facility] [address] [address] [address] Briana Dillard Triglyceride [Mass/Vol] 585 mg/dL Critically high <=150 [facility] Comment on above: Performed By: #### C MP, CMADM, BNP #### [facility] [address] [address] [address] Briana Dillard VLDL CALC 117.0 mg/dL Normal [facility] Comment on above: Performed By: #### C MP, CMADM, BNP #### [facility] [address] [address] [address] Briana Dillard PROF 14(COMP METB)on 023 Albumin [Mass/Vol] 3.6 g/dL Normal 3.4-5.0 [facility] Comment on above: Performed By: #### L IPID, CMP, DLDL #### [facility] [address] [address] [address] Briana Dillard Albumin/Globulin [Mass ratio] 0.9 {ratio} Normal [facility] Comment on above: Performed By: #### L IPID, CMP, DLDL #### [facility] [address] [place] [address] Dr. Briana Dillard ALP [Catalytic activity/Vol] 117 U/L Critically high 46-116 [facility] Comment on above: Performed By: #### L IPID, CMP, DLDL #### [facility] [address] [address] [address] Briana Dillard ALT [Catalytic activity/Vol] 42 U/L Normal 14-59 [facility] Comment on above: Performed By: #### L IPID, CMP, DLDL #### [facility] [address] [place] [address] Dr. Briana Dillard Anion gap [Moles/Vol] 15.4 mmol/L Normal [facility] Comment on above: Performed By: #### L IPID, CMP, DLDL #### [facility] [address] [place] [address] Dr. Briana Dillard AST [Catalytic activity/Vol] 29 U/L Normal 15-37 [facility] Comment on above: Performed By: #### L IPID, CMP, DLDL #### [facility] [address] [address] [address] Briana Dillard Bilirubin [Mass/Vol] 0.4 mg/dL Normal 0.2-1.0 [facility] Comment on above: Performed By: #### L IPID, CMP, DLDL #### [facility] [address] [address] [address] Briana Dillard Calcium [Mass/Vol] 10.2 mg/dL Critically high 8.5-10.1 [facility] Comment on above: Performed By: #### L IPID, CMP, DLDL #### [facility] [address] [place] [address] Dr. Briana Dillard Chloride [Moles/Vol] 100 mmol/L Normal 98-107 [facility] Comment on above: Performed By: #### L IPID, CMP, DLDL #### [facility] [address] [address] [address] Briana Dillard CO2 [Moles/Vol] 27.3 mmol/L Normal 21.0-32.0 [facility] Comment on above: Performed By: #### L IPID, CMP, DLDL #### [facility] [address] [place] [address] Dr. Briana Dillard Creatinine [Mass/Vol] 1.40 mg/dL Critically high 0.55-1.02 [facility] Comment on above: Performed By: #### L IPID, CMP, DLDL #### [facility] [address] [address] [address] Briana Dillard EGFR-AF SAMMARINESE 46 mL/min/1.73m2 Critically low >=60 [facility] Comment on above: Performed By: #### L IPID, CMP, DLDL #### [facility] [address] [address] [address] Briana Dillard EGFR-NON AF SAMMARINESE 38 mL/min/1.73m2 Critically low >=60 [facility] Comment on above: Performed By: #### L IPID, CMP, DLDL #### [facility] [address] [address] [address] Briana Dillard Globulin (S) [Mass/Vol] 3.9 g/dL Normal [facility] Comment on above: Performed By: #### L IPID, CMP, DLDL #### [facility] [address] [address] [address] Briana Dillard Glucose [Mass/Vol] 295 mg/dL Critically high 74-106 [facility] Comment on above: Performed By: #### L IPID, CMP, DLDL #### [facility] [address] [place] [address] Dr. Briana Dillard Potassium [Moles/Vol] 4.7 mmol/L Normal 3.5-5.1 [facility] Comment on above: Performed By: #### L IPID, CMP, DLDL #### [facility] [address] [address] [address] Briana Dillard Protein [Mass/Vol] 7.5 g/dL Normal 6.4-8.2 [facility] Comment on above: Performed By: #### L IPID, CMP, DLDL #### [facility] [address] [place] [address] Dr. Briana Dillard Sodium [Moles/Vol] 138 mmol/L Normal 136-145 [facility] Comment on above: Performed By: #### L IPID, CMP, DLDL #### [facility] [address] [place] [address] Dr. Briana Dillard Urea nitrogen [Mass/Vol] 34.0 mg/dL Critically high 7.0-[address] [facility] Comment on above: Performed By: #### L IPID, CMP, DLDL #### [facility] [address] [place] [address] Dr. Briana Dillard Urea nitrogen/Creatinine [Mass ratio] 24.3 mg/mg Normal [facility] Comment on above: Performed By: #### L IPID, CMP, DLDL #### [facility] [address] [place] [address] Dr. Briana Dillard UA RANDOM W/MICROSCOPICon BACTERIA TRACE Abnormal NONE SEEN [facility] Comment on above: Performed By: #### C MP, CMADM, BNP #### [facility] [address] [address] [address] Briana Dillard Bilirubin Ql (U) Negative Normal NEGATIVE [facility] Comment on above: Performed By: #### C MP, CMADM, BNP #### [facility] [address] [place] [address] Dr. Briana Dillard CAST NONE SEEN Normal NONE SEEN [facility] Comment on above: Performed By: #### C MP, CMADM, BNP #### [facility] [address] [place] [address] Dr. Briana Dillard Clarity (U) CLEAR Normal CLEAR [facility] Comment on above: Performed By: #### C MP, CMADM, BNP #### [facility] [address] [place] [address] Dr. Briana Dillard Color (U) LT. YELLOW Normal YELLOW [facility] Comment on above: Performed By: #### C MP, CMADM, BNP #### [facility] [address] [place] [address] Dr. Briana Dillard Crystals LM Nom (Urine sed) NONE SEEN Normal NONE SEEN [facility] Comment on above: Performed By: #### C MP, CMADM, BNP #### [facility] [address] [place] [address] Dr. Briana Dillard Epithelial cells LM Ql (Urine sed) MANY Abnormal NONE SEEN /RARE [facility] Comment on above: Performed By: #### C MP, CMADM, BNP #### [facility] [address] [place] [address] Dr. Briana Dillard Glucose Ql (U) Negative Normal NEGATIVE [facility] Comment on above: Performed By: #### C MP, CMADM, BNP #### [facility] [address] [place] [address] Dr. Briana Dillard Hemoglobin Ql (U) Negative Normal NEGATIVE [facility] Comment on above: Performed By: #### C MP, CMADM, BNP #### [facility] [address] [place] [address] Dr. Briana Dillard Ketones Ql (U) Negative Normal NEGATIVE [facility] Comment on above: Performed By: #### C MP, CMADM, BNP #### [facility] [address] [place] [address] Dr. Briana Dillard LEUKOCYTES TRACE Abnormal NEGATIVE [facility] Comment on above: Performed By: #### C MP, CMADM, BNP #### [facility] [address] [place] [address] Dr. Briana Dillard MUCOUS NONE SEEN Normal NONE SEEN [facility] Comment on above: Performed By: #### C MP, CMADM, BNP #### [facility] [address] [place] [address] Dr. Briana Dillard Nitrite Ql (U) Negative Normal NEGATIVE [facility] Comment on above: Performed By: #### C MP, CMADM, BNP #### [facility] [address] [place] [address] Dr. Briana Dillard pH (U) 6.0 [pH] Normal 5-9 [facility] Comment on above: Performed By: #### C MP, CMADM, BNP #### [facility] [address] [place] [address] Dr. Briana Dillard RBC 0-2 Normal 0-2 [facility] Comment on above: Performed By: #### C MP, CMADM, BNP #### [facility] [address] [place] [address] Dr. Briana Dillard SPEC GRAVITY 1.010 Normal 1.005-<=1.025 [facility] Comment on above: Performed By: #### C MP, CMADM, BNP #### [facility] [address] [place] [address] Dr. Briana Dillard UA PROTEIN TRACE Normal NEGATIVE/ TRACE [facility] Comment on above: Performed By: #### C MP, CMADM, BNP #### [facility] [address] [place] [address] Dr. Briana Dillard Urobilinogen Qn (U) 0.2 {Samuel'U}/dL Normal 0.2 - 1. 0 [facility] Comment on above: Performed By: #### C KLYE COLMENARESDM, BNP #### [facility] [address] [address] [address] Briana Dillard WBC 2-5 Abnormal NONE SEEN [facility] Comment on above: Performed By: #### C KYLE COLMENARESDM, BNP #### [facility] [address] [address] [address] Briana Dillard URINE T PROTEIN CREAT RATIOo n 06-28-2022 Protein (U) [Mass/Vol] 30.3 mg/dL Critically high <=12.0 [facility] Comment on above: Performed By: #### C KYLE COLMENARESDM, BNP #### [facility] [address] [address] [address] Briana Dillard UR PROT CREAT RAT 0.80 Normal [facility] Comment on above: Performed By: #### C DARRIAN, CMADM, BNP #### [facility] [address] [address] [address] Briana Dillard URINE CREAT 38.11 mg/dL Normal 20.00-300.00 [facility] Comment on above: Performed By: #### C KYLE COLMENARESDM, BNP #### [facility] [address] [address] [address] Briana Dillard POINT OF CARE GLUCOSEon 05-05 Glucose [Mass/Vol] 296 mg/dL Critically high 74-106 [facility] Comment on above: Performed By: #### C DARRIAN CMADM, BNP #### [facility] [address] [address] [address] Briana Dillard POINT OF CARE GLUCOSEon 05-04 Glucose [Mass/Vol] 312 mg/dL Critically high -106 [facility] Comment on above: Performed By: #### C BC #### [facility] [address] [address] [address] Briana Dillard GLYCOHEMOGLOBIN A1Con 2021 ADA RECOMMENDATION SEE BELOW Normal [facility] Comment on above: Result Comment: ADA RECOMMENDED LIMIT 4.0 - 6.0 ADA THERAPEUTIC TARGET < 7.0 ACTION SUGGESTED > 7.0 Performed By: #### A 1C #### [facility] [address] [place] [address] Dr. Briana Dlilard Glucose [Mass/Vol] 223 mg/dL Normal [facility] Comment on above: Performed By: #### A 1C #### [facility] [address] [place] [address] Dr. Briana Dillard HbA1c (Bld) [Mass fraction] 9.4 % Critically high 4.5-6.2 [facility] Comment on above: Performed By: #### A 1C #### [facility] [address] [place] [address] Dr. Briana Dillard CBC AUTO DIFFon 11-29-2021 BASO # 0.1 103/ul Normal 0.0-0.1 [facility] Comment on above: Performed By: #### C BC #### [facility] [address] [place] [address] Dr. Briana Dillard Basophils/100 WBC (Bld) 0.9 % Normal 0.2-2.0 [facility] Comment on above: Performed By: #### C BC #### [facility] [address] [place] [address] Dr. Briana Dillard EO # 0.3 103/ul Normal 0.0-0.7 [facility] Comment on above: Performed By: #### C BC #### [facility] [address] [place] [address] Dr. Briana Dillard Eosinophils/100 WBC (Bld) 2.7 % Normal 0.9-7.0 [facility] Comment on above: Performed By: #### C BC #### [facility] [address] [place] [address] Dr. Briana Dillard Erythrocyte distribution width (RBC) [Ratio] 15.8 % Critically high 11.0-15.0 [facility] Comment on above: Performed By: #### C BC #### [facility] [address] [place] [address] Dr. Briana Dillard Hematocrit (Bld) [Volume fraction] 39.4 % Normal 36.0-48.0 [facility] Comment on above: Performed By: #### C BC #### [facility] [address] [place] [address] Dr. Briana Dillard Hemoglobin (Bld) [Mass/Vol] 13.0 g/dL Normal 12.0-16.0 [facility] Comment on above: Performed By: #### C BC #### [facility] [address] [place] [address] Dr. Briana Dillard IG # 0.12 10e3/ul Critically high 0.00-0.03 [facility] Comment on above: Performed By: #### C BC #### [facility] [address] [place] [address] Dr. Briana Dillard IG % 1.1 % Critically high 0.0-0.5 [facility] Comment on above: Performed By: #### C BC #### [facility] [address] [place] [address] Dr. Briana Dillard LYMPH # 2.7 103/ul Normal 1.2-3.8 [facility] Comment on above: Performed By: #### C BC #### [facility] [address] [place] [address] Dr. Briana Dillard Lymphocytes/100 WBC (Bld) 25.6 % Normal 20.5-60.0 [facility] Comment on above: Performed By: #### C BC #### [facility] [address] [place] [address] Dr. Briana Dillard MANUAL DIFF REQ NO Normal [facility] Comment on above: Performed By: #### C BC #### [facility] [address] [place] [address] Dr. Briana Dillard MCH (RBC) [Entitic mass] 30.9 pg Normal 26.7-34.0 [facility] Comment on above: Performed By: #### C BC #### [facility] [address] [place] [address] Dr. Briana Dillard MCHC (RBC) [Mass/Vol] 33.0 g/dL Normal 29.9-35.2 [facility] Comment on above: Performed By: #### C BC #### [facility] [address] [place] [address] Dr. Briana Dillard MCV (RBC) [Entitic vol] 93.6 fL Normal 81.0-99.0 [facility] Comment on above: Performed By: #### C BC #### [facility] [address] [place] [address] Dr. Briana Dillard MONO # 0.8 103/ul Normal 0.3-0.8 [facility] Comment on above: Performed By: #### C BC #### [facility] [address] [place] [address] Dr. Briana Dillard Monocytes/100 WBC (Bld) 7.9 % Normal 1.7-12.0 [facility] Comment on above: Performed By: #### C BC #### [facility] [address] [place] [address] Dr. Briana Dillard NEUT # 6.6 103/ul Critically high 1.4-6.5 [facility] Comment on above: Performed By: #### C BC #### [facility] [address] [place] [address] Dr. Briana Dillard Neutrophils/100 WBC (Bld) 61.8 % Normal 43.0-75.0 [facility] Comment on above: Performed By: #### C BC #### [facility] [address] [place] [address] Dr. Briana Dillard Platelet mean volume (Bld) [Entitic vol] 10.3 fL Normal 9.5-13.5 [facility] Comment on above: Performed By: #### C BC #### [facility] [address] [place] [address] Dr. Briana Dillard PLT 234 103/ul Normal 150-450 [facility] Comment on above: Performed By: #### C BC #### [facility] [address] [place] [address] Dr. Briana Dillard RBC 4.21 106/ul Normal 4.20-5.40 [facility] Comment on above: Performed By: #### C BC #### [facility] [address] [address] [address] Briana Dillard WBC 10.6 103/ul Normal 4.0-11.0 [facility] Comment on above: Performed By: #### C BC #### [facility] [address] [address] [address] Briana Dillard GLYCOHEMOGLOBIN A1Con 2021 ADA RECOMMENDATION SEE BELOW Normal [facility] Comment on above: Result Comment: ADA RECOMMENDED LIMIT 4.0 - 6.0 ADA THERAPEUTIC TARGET < 7.0 ACTION SUGGESTED > 7.0 Performed By: #### C BC #### [facility] [facility] [address] [place] [address] Dr. Briana Dillard Glucose [Mass/Vol] 220 mg/dL Normal [facility] Comment on above: Performed By: #### C BC #### [facility] [address] [address] [address] Briana Dillard HbA1c (Bld) [Mass fraction] 9.3 % Critically high 4.5-6.2 [facility] Comment on above: Performed By: #### C BC #### [facility] [address] [place] [address] Dr. Briana Dillard LIPID PROFILEon 11-29-2021 CHOL-HDL RATIO NORM SEE BELOW Normal [facility] Comment on above: Result Comment: 3.3 - 4.4 LOW RISK 4.4 - 7.1 AVERAGE RISK 7.1 - 11.0 MODERATE RISK >11.0 HIGH RISK Performed By: #### C MP, CMADM, BNP #### [facility] [address] [address] [address] Briana Dillard Cholesterol [Mass/Vol] 135 mg/dL Normal <=200 [facility] Comment on above: Performed By: #### C MP, CMADM, BNP #### [facility] [address] [address] [address] Briana Dillard Cholesterol in HDL [Mass/Vol] 44 mg/dL Normal 40-60 [facility] Comment on above: Performed By: #### C MP, CMADM, BNP #### [facility] [address] [address] [address] Briana Dillard Cholesterol in LDL [Mass/Vol] 60.2 mg/dL Normal [facility] Comment on above: Performed By: #### C MP, CMADM, BNP #### [facility] [address] [address] [address] Briana Dillard Cholesterol.total/Choles terol in HDL [Mass ratio] 3.1 {ratio} Normal [facility] Comment on above: Performed By: #### C MP, CMADM, BNP #### [facility] [address] [address] [address] Briana Dillard HDL NORMAL > or = 60 mg/dl - LOW CARDIOVASCULAR RISK <40 mg/dl - HIGH CARDIOVASCULAR RISK Normal [facility] Comment on above: Performed By: #### C MP, CMADM, BNP #### [facility] [address] [address] [address] Briana Dillard LDL CALC NORMAL SEE BELOW Normal [facility] Comment on above: Result Comment: <100 mg/dl OPTIMAL 100 - 129 mg/dl NEAR OR ABOVE OPTIMAL 130 - 159 mg/dl BORDERLINE HIGH 160 - 189 mg/dl HIGH >190 mg/dl VERY HIGH Performed By: #### C MP, CMADM, BNP #### [facility] [address] [address] [address] Briana Dillard Triglyceride [Mass/Vol] 154 mg/dL Critically high <=150 [facility] Comment on above: Performed By: #### C MP, CMADM, BNP #### [facility] [address] [address] [address] Briana Dillard VLDL CALC 30.8 mg/dL Normal [facility] Comment on above: Performed By: #### C MP, CMADM, BNP #### [facility] [address] [address] [address] Briana Dillard POINT OF CARE GLUCOSEon 07-2 Glucose [Mass/Vol] 271 mg/dL Critically high 74-106 T [facility] Comment on above: Performed By: #### C BC #### [facility] [address] [place] [address] Dr. Briana Dillard Glucose [Mass/Vol] 180 mg/dL Critically high 74-106 T [facility] Comment on above: Performed By: #### C MP, CMADM, BNP #### [facility] [address] [place] [address] Dr. Briana Dillard BNPon 11-28-2021 Natriuretic peptide B (Bld) [Mass/Vol] 86.0 pg/mL Normal <=900.0 [facility] Comment on above: Performed By: #### C MP, CMADM, BNP #### [facility] [address] [place] [address] Dr. Briana Dillard CARDIAC TANIA ADMITon 022 CK [Catalytic activity/Vol] 52 U/L Normal 26-192 [facility] Comment on above: Performed By: #### C MP, CMADM, BNP #### [facility] [address] [place] [address] Dr. Briana Dillard CK.MB [Mass/Vol] 0.65 ng/mL Normal <=3.60 [facility] Comment on above: Performed By: #### C MP, CMADM, BNP #### [facility] [address] [place] [address] Dr. Briana Dillard HSTROP 4.8 pg/mL Normal 4.0-51.3 [facility] Comment on above: Result Comment: CUT- OFF POINTS HAVE BEEN ESTABLISHED BASED ON THE FOURTH UNIVERSAL DEFINITIONS OF MYOCARDIAL INFARCTION. THE UPPER REFERENCE LIMIT (URL) OF TROPONIN, DEFINED THE 99TH PERCENTILE OF cTnI DISTRIBUTION IN A REFERENCE POPULATION, HAS BEEN CONFIRMED THE DECISION THRESHOLD FOR [place] DIAGNOSIS. Performed By: #### C MP, CMADM, BNP #### [facility] [address] [place] [address] Dr. Briana Dillard YONIS 47 ng/mL Normal 9-82 [facility] Comment on above: Performed By: #### C MP, CMADM, BNP #### [facility] [address] [place] [address] Dr. Briana Dillard CBC AUTO DIFFon 11-28-2021 BASO # 0.1 103/ul Normal 0.0-0.1 [facility] Comment on above: Performed By: #### C BC #### [facility] [address] [address] [address] Briana Dillard Basophils/100 WBC (Bld) 0.8 % Normal 0.2-2.0 [facility] Comment on above: Performed By: #### C BC #### [facility] [address] [address] [address] Briana Dillard EO # 0.2 103/ul Normal 0.0-0.7 [facility] Comment on above: Performed By: #### C BC #### [facility] [address] [place] [address] Dr. Briana Dillard Eosinophils/100 WBC (Bld) 1.4 % Normal 0.9-7.0 [facility] Comment on above: Performed By: #### C BC #### [facility] [address] [place] [address] Dr. Briana Dillard Erythrocyte distribution width (RBC) [Ratio] 15.8 % Critically high 11.0-15.0 [facility] Comment on above: Performed By: #### C BC #### [facility] [address] [place] [address] Dr. Briana Dillard Hematocrit (Bld) [Volume fraction] 42.2 % Normal 36.0-48.0 [facility] Comment on above: Performed By: #### C BC #### [facility] [address] [place] [address] Dr. Briana Dillard Hemoglobin (Bld) [Mass/Vol] 14.3 g/dL Normal 12.0-16.0 [facility] Comment on above: Performed By: #### C BC #### [facility] [address] [place] [address] Dr. Briana Dillard IG # 0.14 10e3/ul Critically high 0.00-0.03 [facility] Comment on above: Performed By: #### C BC #### [facility] [address] [place] [address] Dr. Briana Dillard IG % 1.1 % Critically high 0.0-0.5 [facility] Comment on above: Performed By: #### C BC #### [facility] [address] [place] [address] Dr. Briana Dillard LYMPH # 1.9 103/ul Normal 1.2-3.8 [facility] Comment on above: Performed By: #### C BC #### [facility] [address] [place] [address] Dr. Briana Dillard Lymphocytes/100 WBC (Bld) 14.0 % Critically low 20.5-60.0 [facility] Comment on above: Performed By: #### C BC #### [facility] [address] [place] [address] Dr. Briana Dillard MANUAL DIFF REQ NO Normal [facility] Comment on above: Performed By: #### C BC #### [facility] [address] [place] [address] Dr. Briana Dillard MCH (RBC) [Entitic mass] 31.2 pg Normal 26.7-34.0 [facility] Comment on above: Performed By: #### C BC #### [facility] [address] [place] [address] Dr. Briana Dillard MCHC (RBC) [Mass/Vol] 33.9 g/dL Normal 29.9-35.2 [facility] Comment on above: Performed By: #### C BC #### [facility] [address] [place] [address] Dr. Briana Dillard MCV (RBC) [Entitic vol] 92.1 fL Normal 81.0-99.0 [facility] Comment on above: Performed By: #### C BC #### [facility] [address] [place] [address] Dr. Briana Dillard MONO # 1.1 103/ul Critically high 0.3-0.8 [facility] Comment on above: Performed By: #### C BC #### [facility] [address] [place] [address] Dr. Briana Dillard Monocytes/100 WBC (Bld) 8.0 % Normal 1.7-12.0 [facility] Comment on above: Performed By: #### C BC #### [facility] [address] [place] [address] Dr. Briana Dillard NEUT # 9.9 103/ul Critically high 1.4-6.5 [facility] Comment on above: Performed By: #### C BC #### [facility] [address] [place] [address] Dr. Briana Dillard Neutrophils/100 WBC (Bld) 74.7 % Normal 43.0-75.0 [facility] Comment on above: Performed By: #### C BC #### [facility] [address] [place] [address] Dr. Briana Dillard Platelet mean volume (Bld) [Entitic vol] 10.1 fL Normal 9.5-13.5 [facility] Comment on above: Performed By: #### C BC #### [facility] [address] [place] [address] Dr. Briana Dillard PLT 241 103/ul Normal 150-450 [facility] Comment on above: Performed By: #### C BC #### [facility] [address] [place] [address] Dr. Briana Dillard RBC 4.58 106/ul Normal 4.20-5.40 [facility] Comment on above: Performed By: #### C BC #### [facility] [address] [place] [address] Dr. Briana Dillard WBC 13.2 103/ul Critically high 4.0-11.0 [facility] Comment on above: Performed By: #### C BC #### [facility] [address] [place] [address] Dr. Briana Dillard CTA CHEST WO W [...] Date: 2021-11-28 13:10 Normal [facility] Covid-19 PCR (CVDTBH)on 11-02 SARS-CoV-2 (COVID-19) RNA ANTOINE+probe Ql (Unsp spec) Not detected Normal NOT DETECTED [facility] Comment [...] for this test is supported by the [place] of Health and Human Service's declaration that [...] C MP, CMADM, BNP #### [facility] [address] [place] [address] Dr. Briana He 11-28-2021 D-DIMER 0.77 mg/L FEU Critically high <=0.59 [facility] Comment on above: Performed By: #### P T, PTT, DDIM #### [facility] [address] [place] [address] Dr. Briana Dillard D-DIMER COMMENTS SEE BELOW Normal [facility] Comment on above: Result Comment: Incr [...] P T, PTT, DDIM #### [facility] [address] [place] [address] Dr. Briana Dillard POINT OF CARE GLUCOSEon 11-02 Glucose [Mass/Vol] 213 mg/dL Critically high 74-106 [facility] Comment on above: Performed By: #### P OCGLUC #### [facility] [address] [place] [address] Dr. Briana Dillard Glucose [Mass/Vol] 255 mg/dL Critically high 74-106 [facility] Comment on above: Performed By: #### C MP, CMADM, BNP #### [facility] [address] [place] [address] Dr. Briana Dillard PROF 14(COMP METB)on 022 Albumin [Mass/Vol] 3.4 g/dL Normal 3.4-5.0 [facility] Comment on above: Performed By: #### C MP, CMADM, BNP #### [facility] [address] [place] [address] Dr. Briana Dillard Albumin/Globulin [Mass ratio] 0.9 {ratio} Normal [facility] Comment on above: Performed By: #### C MP, CMADM, BNP #### [facility] [address] [address] [address] Briana Dillard ALP [Catalytic activity/Vol] 126 U/L Critically high 46-116 [facility] Comment on above: Performed By: #### C MP, CMADM, BNP #### [facility] [address] [address] [address] Briana Dillard ALT [Catalytic activity/Vol] 30 U/L Normal 14-59 [facility] Comment on above: Performed By: #### C MP, CMADM, BNP #### [facility] [address] [place] [address] Dr. Briana Dillard Anion gap [Moles/Vol] 13.6 mmol/L Normal [facility] Comment on above: Performed By: #### C MP, CMADM, BNP #### [facility] [address] [place] [address] Dr. Briana Dillard AST [Catalytic activity/Vol] 18 U/L Normal 15-37 [facility] Comment on above: Performed By: #### C MP, CMADM, BNP #### [facility] [address] [place] [address] Dr. Briana Dillard Bilirubin [Mass/Vol] 0.4 mg/dL Normal 0.2-1.0 [facility] Comment on above: Performed By: #### C MP, CMADM, BNP #### [facility] [address] [place] [address] Dr. Briana Dillard Calcium [Mass/Vol] 8.9 mg/dL Normal 8.5-10.1 [facility] Comment on above: Performed By: #### C MP, CMADM, BNP #### [facility] [address] [place] [address] Dr. Briana Dillard Chloride [Moles/Vol] 98 mmol/L Normal 98-107 [facility] Comment on above: Performed By: #### C MP, CMADM, BNP #### [facility] [address] [place] [address] Dr. Briana Dillard CO2 [Moles/Vol] 25.0 mmol/L Normal 21.0-32.0 [facility] Comment on above: Performed By: #### C MP, CMADM, BNP #### [facility] [address] [place] [address] Dr. Briana Dillard Creatinine [Mass/Vol] 1.58 mg/dL Critically high 0.55-1.02 [facility] Comment on above: Performed By: #### C MP, CMADM, BNP #### [facility] [address] [place] [address] Dr. Briana Dillard EGFR-AF SAMMARINESE 40 mL/min/1.73m2 Critically low >=60 [facility] Comment on above: Performed By: #### C MP, CMADM, BNP #### [facility] [address] [place] [address] Dr. Briana Dillard EGFR-NON AF SAMMARINESE 33 mL/min/1.73m2 Critically low >=60 [facility] Comment on above: Performed By: #### C MP, CMADM, BNP #### [facility] [address] [place] [address] Dr. Briana Dillard Globulin (S) [Mass/Vol] 4.0 g/dL Normal [facility] Comment on above: Performed By: #### C MP, CMADM, BNP #### [facility] [address] [place] [address] Dr. Briana Dillard Glucose [Mass/Vol] 386 mg/dL Critically high 74-106 [facility] Comment on above: Performed By: #### C MP, CMADM, BNP #### [facility] [address] [place] [address] Dr. Briana Dillard Potassium [Moles/Vol] 4.6 mmol/L Normal 3.5-5.1 [facility] Comment on above: Performed By: #### C MP, CMADM, BNP #### [facility] [address] [place] [address] Dr. Briana Dillard Protein [Mass/Vol] 7.4 g/dL Normal 6.4-8.2 [facility] Comment on above: Performed By: #### C MP, CMADM, BNP #### [facility] [address] [place] [address] Dr. Briana Dillard Sodium [Moles/Vol] 132 mmol/L Critically low 136-145 Th [facility] Comment on above: Performed By: #### C GEOVANY COLMENARES, BNP #### [facility] [address] [place] [address] Dr. Briana Dillard Urea nitrogen [Mass/Vol] 23.0 mg/dL Critically high 7.0-[address] [facility] Comment on above: Performed By: #### C GEOVANY COLMENARES, BNP #### [facility] [address] [place] [address] Dr. Briana Dillard Urea nitrogen/Creatinine [Mass ratio] 14.6 mg/mg Normal [facility] Comment on above: Performed By: #### C GEOVANY COLMENARES, BNP #### [facility] [address] [place] [address] Dr. Briana Dillard PROTIMEon 11-28-2021 INR Coag (PPP) [Relative time] 1.01 {INR} Normal [facility] Comment on above: Performed By: #### P T, PTT, DDIM #### [facility] [address] [place] [address] Dr. Briana Dillard INR GUIDELINES SEE BELOW Normal [facility] Comment on above: Result Comment: LURDES RED INR: 2.0 - 3.0 CONDITIONS NOT LISTED BELOW 2.5 - 3.5 FOR PROSTHETIC HEART VALVE REPLACEMENT 2.5 - 3.5 RECURRENT THROMBOSIS Performed By: #### P T, PTT, DDIM #### [facility] [address] [place] [address] Dr. Briana Dillard PT Coag (PPP) [Time] 10.9 s Normal 9.0-11.6 [facility] Comment on above: Performed By: #### P T, PTT, DDIM #### [facility] [address] [place] [address] Dr. Briana Dillard PTTon 11-28-2021 aPTT Coag (Bld) [Time] 27.5 s Normal 22.3-36.2 Th [facility] Comment on above: Performed By: #### P T, PTT, DDIM #### [facility] [address] [place], [place] [address] Dr. Briana Dillard TROPONIN, HIGH SENSITIVITYon 11-28-2021 HSTROP 5.5 pg/mL Normal 4.0-51.3 [facility] Comment on above: Result Comment: CUT- OFF POINTS HAVE BEEN ESTABLISHED BASED ON THE FOURTH UNIVERSAL DEFINITIONS OF MYOCARDIAL INFARCTION. THE UPPER REFERENCE LIMIT (URL) OF TROPONIN, DEFINED THE 99TH PERCENTILE OF cTnI DISTRIBUTION IN A REFERENCE POPULATION, HAS BEEN CONFIRMED THE DECISION THRESHOLD FOR [place] DIAGNOSIS. Performed By: #### C MP, CMADM, BNP #### [facility] [address] [address] [address] Briana Dillard HSTROP 5.4 pg/mL Normal 4.0-51.3 [facility] Comment on above: Result Comment: CUT- OFF POINTS HAVE BEEN ESTABLISHED BASED ON THE FOURTH UNIVERSAL DEFINITIONS OF MYOCARDIAL INFARCTION. THE UPPER REFERENCE LIMIT (URL) OF TROPONIN, DEFINED THE 99TH PERCENTILE OF cTnI DISTRIBUTION IN A REFERENCE POPULATION, HAS BEEN CONFIRMED THE DECISION THRESHOLD FOR [place] DIAGNOSIS. Performed By: #### C MP, CMADM, BNP #### [facility] [address] [address] [address] Briana Dillard HSTROP 5.6 pg/mL Normal 4.0-51.3 [facility] Comment on above: Result Comment: CUT- OFF POINTS HAVE BEEN ESTABLISHED BASED ON THE FOURTH UNIVERSAL DEFINITIONS OF MYOCARDIAL INFARCTION. THE UPPER REFERENCE LIMIT (URL) OF TROPONIN, DEFINED THE 99TH PERCENTILE OF cTnI DISTRIBUTION IN A REFERENCE POPULATION, HAS BEEN CONFIRMED THE DECISION THRESHOLD FOR [place] DIAGNOSIS. Performed By: #### C MP, CMADM, BNP #### [facility] [address] [place], [place] [address] Dr. Briana Dillard XR CHEST 1 Von [...] Date: 2021-11-28 12:46 Normal [facility] Tobacco Screening.on 022 Adult depression screening assessment Yes -[facility] [address] DO Work Phone: Tobacco use status [facility]PH[facility] a) Yes M [facility] DO Work Phone: Tobacco Screening. Yes -[facility] DO Work Phone: Tobacco Screening. 1-Several days [facility] 250 DO Work Phone: Tobacco Screening. 0-Not at all [facility] Work Phone: Tobacco Screening. Not difficult at all [facility] 250 DO Work Phone: Echocardiogramon 05-20-[address], [address] [place] [address] TRANSTHORACIC ECHOCARDIOGRAM REPORT Patient Name: VIDHYA IBARRA Reading Physician: [id number] Ruma Dawn MD Study Date: 05/20/2021 Referring [id number] SHASHI COTTRELL Physician: MRN/PID: [id number] PCP: Accession/Order#: [id number] Department [facility] Location: Date of : 1955 Fellow: Gender: F Nurse: Admit Date: Cheesemaker Helper: Clarisse Sumner RD, T Height: 160.02 cm CC Report to: Weight: 89.36 kg Study Type: Echocardiogram BSA: 1.92 m2 Blood Pressure: 166 /94 mmHg Diagnosis/ICD: I51.7-Cardiomegaly; R06.00-Dyspnea, unspecified Indication: Obesity, Tobacco Abuse Procedure/CPT: Echo Complete w Full [id number] Study Detail: The following Echo studies were [...] 0.9 m/s (0.6-0.9m/s) PV Max P.1 mmHg [id number] Ruma Dawn MD Electronically signed on 05/24/2021 at 5:25:46 PM Final Normal [facility] Tobacco Screening.on 022 Fall risk assessment a) No falls within the last year [facility] 250 DO Work Phone: Tobacco use status CPHS a) Yes M [facility] 250 DO Work Phone: Fall risk assessment a) No falls within the last year [facility] DO Work Phone: Tobacco use status CPHS a) Yes M [facility] 250 DO Work Phone: Tobacco Screening. Yes [facility] 250 DO Work Phone: Bld Gas Venon 12-02-2019 Allens Test N/A [facility] Comment on above: Result Comment: Fei [facility] Department of Pulmonary Medicine [address] [place] [address] Performed By: #### 1 [id number] #### [facility] [address] [place] [address] Called By: KATHY OCHOA [facility] Comment on above: Performed By: #### 1 [id number] #### [facility] [address] [place] [address] Called To: DR. CORINNE COFFMAN [facility] Comment on above: Performed By: #### 1 [id number] #### [facility] [address] [place] [address] [facility] Comment on above: Performed By: #### 1 [id number] #### [facility] [address] [place] [address] Dt/Tm Notified 17:42:00 F [facility] Comment on above: Performed By: #### 1 [id number] #### [facility] [address] [place] [address] pCO2 Guillaume 36.1 mmHg Low 38.0-50.0 [facility] Comment on above: Performed By: #### 1 [id number] #### [facility] [address] [place] [address] pH (BldV) 7.392 [pH] Normal 7.320-7.430 [facility] Comment on above: Performed By: #### 1 [id number] #### [facility] [address] [place] [address] Sample Site OTHER [facility] Comment on above: Performed By: #### 1 [id number] #### [facility] [address] [place] [address] Sample Type Venous [facility] Comment on above: Performed By: #### 1 [id number] #### [facility] [address] [place] [address] Physician Orderon 12-02-2019 Physician Order [id number]:127 Normal [facility] Vital Signs Date Time Vital Sign Value Performing Clinician Facility 03-22-2024 09:57-0500 Body height 160.02 cm Juan Antonio Carver SPEECH THERAPIST-C Work Phone: [facility] 03-22-2024 09:57-0500 Body mass index (BMI) [Ratio] 34 kg/m2 Juan Antonio Carver SPEECH THERAPIST-C Work Phone: [facility] 03-22-2024 09:57-0500 Body temperature 96.9 [degF] Juan Antonio Carver SPEECH THERAPIST-C Work Phone: [facility] 03-22-2024 09:57-0500 Body weight 87.14 kg Juan Antonio Carver SPEECH THERAPIST-C Work Phone: [facility] 03-22-2024 09:57-0500 Diastolic blood pressure 86 mm[Hg] Juan Antonio Carver SPEECH THERAPIST-C Work Phone: [facility] 03-22-2024 09:57-0500 Heart rate 108 /min Juan Antonio Carver SPEECH THERAPIST-C Work Phone: [facility] 03-22-2024 09:57-0500 Respiratory rate 18 /min Juan Antonio Carver SPEECH THERAPIST-C Work Phone: [facility] 03-22-2024 09:57-0500 SaO2% (BldA) [Mass fraction] 92 % Juan Antonio Carver SPEECH THERAPIST-C Work Phone: [facility] 03-22-2024 09:57-0500 Systolic blood pressure 146 mm[Hg] Juan Antonio Carver SPEECH THERAPIST-C Work Phone: [facility] 01-06-2024 15:12-0400 Body height 160 cm Nadja Donaldo DPM Work Phone: [facility] 01-06-2024 15:12-0400 Body mass index (BMI) [Ratio] 36.14 kg/m2 Nadja Donaldo DPM Work Phone: [facility] 01-06-2024 15:120400 Body weight 92.53 kg Nadja Fulton DPM Work Phone: [facility] 08-05-2023 10:22-0400 Body temperature 97.2 [degF] MD Shaikh Mchugh Work Phone: [facility] 08-05-2023 10:22-0400 Body weight 89.81 kg MD Shaikh Mchugh Work Phone: [facility] 08-05-2023 10:22-0400 Diastolic blood pressure 75 mm[Hg] MD Shaikh Mchugh Work Phone: [facility] 08-05-2023 10:22-0400 Heart rate 71 /min MD Shaikh Mchugh Work Phone: [facility] 08-05-2023 10:22-0400 Respiratory rate 16 /min MD Shaikh Mchugh Work Phone: [facility] 08-05-2023 10:22-0400 SaO2% (BldA) [Mass fraction] 90 % MD Shaikh Mchugh Work Phone: [facility] 08-05-2023 10:22-0400 Systolic blood pressure 162 mm[Hg] MD Shaikh Mchugh Work Phone: [facility] 06-24-2023 10:07-0500 Body height 160.02 cm MD Shaikh Mchguh Work Phone: [facility] 06-24-2023 10:07-0500 Body mass index (BMI) [Ratio] 34.2 kg/m2 MD Shaikh Mchugh Work Phone: [facility] 06-24-2023 10:07-0500 Body temperature 97.2 [degF] MD Shaikh Mchugh Work Phone: [facility] 06-24-2023 10:07-0500 Body weight 87.54 kg MD Shaikh Mchugh Work Phone: [facility] 06-24-2023 10:07-0500 Diastolic blood pressure 96 mm[Hg] MD Shaikh Mchugh Work Phone: [facility] 06-24-2023 10:07-0500 Heart rate 78 /min MD Shaikh Mchugh Work Phone: [facility] 06-24-2023 10:07-0500 Respiratory rate 16 /min MD Shaikh Mchugh Work Phone: [facility] 06-24-2023 10:07-0500 SaO2% (BldA) [Mass fraction] 95 % MD Shaikh Mchugh Work Phone: [facility] 06-24-2023 10:07-0500 Systolic blood pressure 160 mm[Hg] MD Shaikh Mchugh Work Phone: [facility] 03-24-2023 13:06-0500 Body temperature 97.8 [degF] MD Shaikh Mchugh Work Phone: [facility] 03-24-2023 13:06-0500 Body weight 86.63 kg MD Shaikh Mchugh Work Phone: [facility] 03-24-2023 13:06-0500 Diastolic blood pressure 67 mm[Hg] MD Shaikh Mchugh Work Phone: [facility] 03-24-2023 13:06-0500 Heart rate 68 /min MD Shaikh Mchugh Work Phone: [facility] 03-24-2023 13:06-0500 Respiratory rate 16 /min MD Shaikh Mchugh Work Phone: [facility] 03-24-2023 13:06-0500 SaO2% (BldA) [Mass fraction] 98 % MD Shaikh Mchugh Work Phone: [facility] 03-24-2023 13:06-0500 Systolic blood pressure 130 mm[Hg] MD Shaikh Mchugh Work Phone: [facility] 03-24-2023 12:53-0500 Body height 160.02 cm MD Shaikh Mchugh Work Phone: [facility] 03-11-2023 09:20-0500 Body height 162.56 cm Alta Sharmaine Other [employer] Other 03-11-2023 09:20-0500 Body mass index (BMI) [Ratio] 32.78 kg/m2 Alta Sharmaine Other [employer] Other 03-11-2023 09:20-0500 Body temperature 96.3 [degF] Alta Sharmaine Other [employer] Other 03-11-2023 09:20-0500 Body weight 86.64 kg Alta Sharmaine Other [employer] Other 03-11-2023 09:20-0500 Diastolic blood pressure 77 mm[Hg] Alta Sharmaine Other [employer] Other 03-11-2023 09:20-0500 Respiratory rate 18 /min Alta Sharmaine Other [employer] Other 03-11-2023 09:20-0500 SaO2% (BldA) [Mass fraction] 95 % Alta Sharmaine Other [employer] Other 03-11-2023 09:20-0500 Systolic blood pressure 139 mm[Hg] Alta Sharmaine Other [employer] Other 12-08-2022 08:41-0400 Body height 160.02 cm Shaikh Louisd Work Phone: [facility] Work Phone: 12-08-2022 08:41-0400 Body mass index (BMI) [Ratio] 32.95 kg/m2 Shaikh Louisd Work Phone: [facility] DO Work Phone: 12-08-2022 08:41-0400 Body surface area Derived from formula 1.88 m2 Shaikh Brightwad Work Phone: [facility] DO Work Phone: 12-08-2022 08:41-0400 Body weight 84.37 kg Shaikh Louisd Work Phone: [facility] [address] DO Work Phone: 12-08-2022 08:41-0400 Diastolic blood pressure 60 mm[Hg] Shaikh Brightwad Work Phone: [facility] [address] DO Work Phone: 12-08-2022 08:41-0400 Heart rate 66 /min Dial Fawwad Work Phone: [facility] [address] DO Work Phone: 12-08-2022 08:41-0400 Systolic blood pressure 108 mm[Hg] Dial Fawwad Work Phone: [facility] [address] DO Work Phone: 07-01-2021 13:12-0500 Diastolic blood pressure 88 mm[Hg] Dial Fawwad Work Phone: [facility] [address] DO Work Phone: 07-01-2021 13:12-0500 Systolic blood pressure 138 mm[Hg] Dial Fawwad Work Phone: [facility] [address] DO Work Phone: 07-01-2021 09:20-0500 Diastolic blood pressure 100 mm[Hg] Dial Fawwad Work Phone: [facility] [address] DO Work Phone: 07-01-2021 09:20-0500 Systolic blood pressure 148 mm[Hg] Dial Fawwad Work Phone: [facility] [address] DO Work Phone: 07-01-2021 09:01-0500 Diastolic blood pressure 98 mm[Hg] Dial Fawwad Work Phone: [facility] [address] DO Work Phone: 07-01-2021 09:01-0500 Systolic blood pressure 168 mm[Hg] Dial Fawwad Work Phone: [facility] [address] DO Work Phone: 07-01-2021 08:51-0500 Body height 160.02 cm Dial Fawwad Work Phone: [facility] [address] DO Work Phone: 07-01-2021 08:51-0500 Body mass index (BMI) [Ratio] 33.83 kg/m2 Shaikh Louisd Work Phone: [facility] [address] DO Work Phone: 07-01-2021 08:51-0500 Body surface area Derived from formula 1.9 m2 Shaikh Jeison Work Phone: [facility] [address] DO Work Phone: 07-01-2021 08:51-0500 Body weight 86.64 kg Shaikh Louisd Work Phone: [facility] [address] DO Work Phone: 07-01-2021 08:51-0500 Diastolic blood pressure 104 mm[Hg] Shaikh Louisd Work Phone: [facility] [address] DO Work Phone: 07-01-2021 08:51-0500 Heart rate 87 /min Shaikh Louisd Work Phone: [facility] [address] DO Work Phone: 07-01-2021 08:51-0500 Systolic blood pressure 169 mm[Hg] Shaikh Louisd Work Phone: [facility] [address] DO Work Phone: 07-01-2021 08:51-0500 6 1 Shaikh Brightwad Work Phone: [facility] [address] DO Work Phone: Comment on above: [id number] TS 05-24-2021 10:00-0500 Body height 162.56 cm Juan Gonzalez Other [employer] Other 05-24-2021 10:00-0500 Body mass index (BMI) [Ratio] 32.44 kg/m2 Juan Gonzalez Other [employer] Other 05-24-2021 10:00-0500 Body weight 85.73 kg Juan Gonzalez Other [employer] Other 05-20-2021 10:45-0500 60 1 Dial Yaimawwad Work Phone: [facility] [address] [place] Work Phone: Comment on above: [id number] 05-13-2021 11:59-0500 Diastolic blood pressure 104 mm[Hg] Dial Fawwad Work Phone: [facility] [address] DO Work Phone: 05-13-2021 11:59-0500 Systolic blood pressure 162 mm[Hg] Dial Fawwad Work Phone: [facility] [address] DO Work Phone: 05-13-2021 11:13-0500 Diastolic blood pressure 100 mm[Hg] Dial Fawwad Work Phone: [facility] [address] DO Work Phone: 05-13-2021 11:13-0500 Systolic blood pressure 170 mm[Hg] Dial Fawwad Work Phone: [facility] [address] DO Work Phone: 05-13-2021 11:12-0500 Body height 160.02 cm Dial Fawwad Work Phone: [facility] [address] DO Work Phone: 05-13-2021 11:12-0500 Body mass index (BMI) [Ratio] 34.9 kg/m2 Dial Fawwad Work Phone: [facility] [address] DO Work Phone: 05-13-2021 11:12-0500 Body surface area Derived from formula 1.92 m2 Shaikh Louisd Work Phone: [facility] [address] DO Work Phone: 05-13-2021 11:12-0500 Body weight 89.36 kg Shaikh Jeison Work Phone: [facility] [address] DO Work Phone: 05-13-2021 11:12-0500 Diastolic blood pressure 102 mm[Hg] Shaikh Louisd Work Phone: [facility] [address] DO Work Phone: 05-13-2021 11:12-0500 Heart rate 88 /min Shaikh Jeison Work Phone: [facility] [address] DO Work Phone: 05-13-2021 11:12-0500 Systolic blood pressure 172 mm[Hg] Shaikh Jeison Work Phone: [facility] [address] DO Work Phone: 05-13-2021 11:07-0500 Body height 160.02 cm Shaikh Jeison Work Phone: [facility] [address] DO Work Phone: 05-13-2021 11:07-0500 Body mass index (BMI) [Ratio] 34.9 kg/m2 Shaikh Brightwad Work Phone: [facility] [address] DO Work Phone: 05-13-2021 11:07-0500 Body surface area Derived from formula 1.92 m2 Shaikh Brightwad Work Phone: [facility] [address] DO Work Phone: 05-13-2021 11:07-0500 Body weight 89.36 kg Shaikh Jeison Work [facility] [address] DO Work Phone: 05-13-2021 11:07-0500 Heart rate 88 /min Shaikh Jeison Work Phone: [facility] [address] DO Work Phone: 04-09-2021 11:40-0500 Body height 162.56 cm Juan Carlos Other [employer] Other 04-09-2021 11:40-0500 Body mass index (BMI) [Ratio] 32.44 kg/m2 Juan Gonzalez Other [employer] Other 04-09-2021 11:40-0500 Body weight 85.73 kg Juan Carlos Other [employer] Other 04-09-2021 11:40-0500 Diastolic blood pressure 72 mm[Hg] Juan Carlos Other [employer] Other 04-09-2021 11:40-0500 Systolic blood pressure 124 mm[Hg] Juan Carlos Other [employer] Other Encounters Encounter Date Encounter Type Care Provider Facility Start: 10-05-2024 End: 10-05-2024 Refill Coni Osorio NP Work Phone: [facility] Comment on above: Primary hypertension (CMS/HCC) (Primary Dx); Moderate episode of recurrent major depressive disorder (CMS/HCC); Chronic diastolic congestive heart failure (CMS/HCC); Type 2 diabetes mellitus with stage 3a chronic kidney disease, with long-term current use of insulin (HCC) (CMS/HCC); Mixed hyperlipidemia (CMS/HCC); Tobacco dependency; Chronic gout of multiple sites, unspecified cause Start: 09-30-2024 End: 09-30-2024 Patient encounter procedure PHYSICIAN [facility] [place] Work Phone: Start: 09-30-2024 End: 09-30-2024 ambulatory PHYSICIAN [facility] Work Phone: Start: 08-08-2024 End: 08-08-2024 Refill Gaetano Andrea MD Work Phone: [facility] Comment on above: Diabetic polyneuropa thy associated with type 2 diabetes mellitus (CMS/HCC) Start: 08-03-2024 End: 08-03-2024 Refill Gaetano Andrea MD Work Phone: [facility] Comment on above: Psychophysiological insomnia; Type 2 diabetes mellitus with stage 3a chronic kidney disease, with long-term current use of insulin (HCC) (CMS/HCC) Start: 05-24-2024 End: 05-24-2024 Refill Juan Antonio Christensentrick SPEECH THERAPIST Work Phone: [facility] Comment on above: Mixed hyperlipidemia (CMS/HCC) Start: 05-12-2024 End: 05-12-2024 Refill Juan Antonio Carver SPEECH THERAPIST Work Phone: [facility] Comment on above: Chronic diastolic co ngestive heart failure (CMS/HCC); Primary hypertension (CMS/HCC) Start: 05-06-2024 End: 05-09-2024 Refill Juan Antonio Carver SPEECH THERAPIST Work Phone: [facility] Comment on above: Diabetic polyneuropa thy associated with type 2 diabetes mellitus (CMS/HCC) Start: 03-22-2024 End: 03-22-2024 ambulatory Juan Antonio Christensentrick SPEECH THERAPIST-C Work Phone: [facility] Work Phone: Start: 03-22-2024 End: 03-22-2024 Patient encounter procedure Juan Antonio Carver SPEECH THERAPIST-C Work Phone: [facility] [place] Work Phone: Start: 03-14-2024 End: 03-14-2024 Patient encounter procedure Juan Antonio Carver SPEECH THERAPIST-C Work Phone: [facility] [place] Work Phone: Start: 03-14-2024 End: 03-14-2024 ambulatory Juan Antonio Nydia Carver SPEECH THERAPIST-C Work Phone: [facility] Work Phone: Start: 02-15-2024 End: 02-16-2024 Refill Juan Antonio Carver SPEECH THERAPIST Work Phone: [facility] Comment on above: Diabetic polyneuropa thy associated with type 2 diabetes mellitus ([facility]/HCC) Start: 01-18-2024 End: 01-18-2024 Refill Juan Antonio Carver SPEECH THERAPIST Work Phone: [facility] Comment on above: Moderate episode of recurrent major depressive disorder (HCC) (CMS/HCC) Start: 01-11-2024 End: 01-12-2024 Refill Shaikh Jeison PRAJAPATI Work Phone: [facility] Comment on above: Type 2 diabetes lon itus with stage 3a chronic kidney disease, with long-term current use of insulin (HCC) (CMS/HCC) Start: 01-06-2024 End: 01-06-2024 Office outpatient new 45 minutes Nadja Fulton DPM Work Phone: [facility] Comment on above: Dermatophytosis of n ail (Primary Dx); Type 2 diabetes mellitus with stage 3a chronic kidney disease, with long-term current use of insulin (HCC) (CMS/HCC); Diabetic polyneuropathy associated with type 2 diabetes mellitus (CMS/HCC); Dystrophic nail Start: 01-06-2024 End: 01-06-2024 ambulatory NADJA FULTON Not Available Start: 01-06-2024 End: 01-06-2024 Bamboo flowsheet Nadja Fulton DPM Work Phone: [facility] Start: 01-06-2024 End: 01-06-2024 Bamboo flowsheet Nadja Fulton DPM Work Phone: [facility] Start: 12-14-2023 End: 12-14-2023 ambulatory JUAN ANTONIO CARVER Not Available Start: 10-05-2023 End: 10-05-2023 ambulatory Radha Dunaway MD Facility:[facility] Start: 09-21-2023 End: 09-21-2023 ambulatory Radha Dunaway MD Facility:[facility] Start: 09-14-2023 End: 09-14-2023 ambulatory SHAIKH JEISON Not Available Start: 09-12-2023 End: 09-12-2023 ambulatory MD Shaikh Mchugh Work Phone: [facility] Work Phone: Start: 09-12-2023 End: 09-12-2023 Patient encounter procedure MD Shaikh Mchugh Work Phone: [facility] [place] Work Phone: Start: 08-05-2023 End: 08-05-2023 ambulatory MD Shaikh Mchugh Work Phone: [facility] Work Phone: Start: 08-05-2023 End: 08-05-2023 Patient encounter procedure MD Shaikh Mchugh Work Phone: [facility] Work Phone: Start: 08-05-2023 Registered Recurring MD Shaikh Mchugh Work Phone: [facility] Acute Work Phone: Start: 07-13-2023 End: 07-13-2023 ambulatory SHAIKH JEISON Not Available Start: 07-10-2023 End: 07-10-2023 ambulatory EZRA VILLA V Not Available Start: 07-03-2023 End: 07-03-2023 ambulatory EZRA VILLA V Not Available Start: 06-24-2023 End: 06-24-2023 ambulatory MD Shaikh Mchugh Work Phone: [facility] Work Phone: Start: 06-24-2023 End: 06-24-2023 Patient encounter procedure MD Shaikh Mchugh Work Phone: [facility] [place] [facility] Work Phone: Start: 06-24-2023 Registered Recurring MD Shaikh Mchugh Work Phone: [facility] [place] [facility] Work Phone: Start: 06-01-2023 End: 06-01-2023 ambulatory Radha Dunaway MD Facility:[facility] Start: 05-11-2023 End: 05-11-2023 ambulatory Radha Dunaway MD Facility:[facility] Start: 04-13-[address] angelina Fulton DPM Work Phone: [facility] Start: 04-13-2023 Telephone encounter Neena Kamara [facility] Start: 04-13-2023 End: 04-13-2023 ambulatory SHAIKH JEISON [facility] Other Start: 04-06-2023 End: 04-06-2023 ambulatory Radha Dunaway MD Facility:[facility] Start: 03-24-2023 End: 03-24-2023 ambulatory MD Shaikh Mchugh Work Phone: [facility] Work Phone: Start: 03-24-2023 End: 03-24-2023 Registered Recurring MD Shaikh Mchugh Work Phone: [facility] Work Phone: Start: 03-11-2023 End: 03-11-2023 ambulatory Alta Schmid Other [facility] Other Start: 03-11-2023 Office outpatient vi sit 25 minutes Alta Schmid [facility] [place] Start: 03-04-2023 End: 03-04-2023 ambulatory MD Shaikh Mchugh Work Phone: [facility] Work Phone: Start: 03-04-2023 End: 03-04-2023 Patient encounter procedure MD Shaikh Mchugh Work Phone: [facility] [place] Work Phone: Start: 12-08-2022 Office outpatient vi sit 15 minutes Shaikh Jeison Work Phone: [facility] [address] DO Work Phone: Start: 12-08-2022 Patient encounter procedure Abhijit Mchugh Work Phone: [facility] [address] DO Work Phone: Start: 12-08-[address] Shashi Cottrell II Facility: Start: 11-10-2022 End: 11-10-2022 ambulatory Radha Dunaway MD Facility:[facility] Start: 10-16-2022 ambulatory SHAIKH Gurjit MCHUGH Facilit y:[facility] Start: 07-17-2022 End: 07-18-2022 ambulatory SHAIKH Gurjit MCHUGH Facility:[facility] Start: 06-29-2022 Rx Renewal Shaikh Jeison Work Phone: [facility] [address] DO Work Phone: [...] 11-28-2021 End: 11-29-2021 ambulatory DIAL H FAWWAD Facility: Start: 10-17-2021 End: 10-18-2021 ambulatory EVA ROSEN . Facility: Start: 07-01-2021 AUDIT Dial Fawwad Work Phone: [facility] [address] DO Work Phone: Start: 05-28-2021 FUV, Provider: Shashi Cottrell, Status: Pen, Time: 10:50 AM Dial Fawwad Work Phone: [facility] [address] DO Work Phone: Start: 05-26-2021 Chart Update Dial Fawwad Work Phone: [facility] [address] DO Work Phone: Start: 05-24-2021 End: 05-24-2021 ambulatory Juan Gonzalez Other [facility] Other Start: 05-24-2021 Office outpatient vi sit 15 minutes Juan Gonzalez [facility] Start: 05-20-2021 Patient encounter procedure amandakh Fawwad Work Phone: [facility] [address] [place] Work Phone: Start: 05-13-2021 Office consultation new/estab patient 60 min Shaikh Jeison Work Phone: [facility] [address] DO Work Phone: Start: 04-09-2021 End: 04-09-2021 ambulatory Juan Gonzalez Other [facility] Other Start: 04-09-2021 Office outpatient ne w 45 minutes Juan Gonzalez [facility] Procedures Date Procedure Procedure Detail [...] Screening for malign ant neoplasm of colon [facility] Start: 05-08-2025 Glaucoma screening Diabetes: R etinopathy Screening [facility] Start: 01-02-2025 Influenza vaccination Influenz a Vaccine (Season Ended) [facility] Start: 11-02-2024 End: 11-02-2024 Patient encounter procedure 11/02/2024 10:00 AM EDT Office Visit [facility] [address] [place] [address] Coni Osorio, DENA [address] [place] [address] [facility] Start: 10-05-2024 End: 10-05-2025 CBC W Auto Differential panel - Blood CBC and differential Lab Routine Tobacco dependency Expected: 10/05/2024 (Approximate), Expires: 10/05/2025 [facility] Work Phone: Comment on above: Expected: 10/05/2024 (Approximate), Expires: 10/05/2025 Start: 10-05-2024 End: 10-05-2025 Comprehensive metabolic 2000 panel - Serum or Plasma Comprehensive metabolic panel Lab Routine Primary hypertension (CMS/HCC) Chronic diastolic congestive heart failure (CMS/HCC) Type 2 diabetes mellitus with stage 3a chronic kidney disease, with long-term current use of insulin (HCC) (CMS/HCC) Mixed hyperlipidemia (CMS/HCC) Chronic gout of multiple sites, unspecified cause Expected: 10/05/2024 (Approximate), Expires: 10/05/2025 [facility] Comment on above: Expected: 10/05/2024 (Approximate), Expires: 10/05/2025 Start: 10-05-2024 End: 10-05-2025 Hemoglobin A1c/Hemoglobin.total in Blood Hemoglobin A1c Lab Routine Type 2 diabetes mellitus with stage 3a chronic kidney disease, with long-term current use of insulin (HCC) (CMS/HCC) Expected: 10/05/2024 (Approximate), Expires: 10/05/2025 [facility] Comment on above: Expected: 10/05/2024 (Approximate), Expires: 10/05/2025 Start: 10-05-2024 End: 10-05-2025 Lipid 1996 panel - Serum or Plasma Lipid panel Lab Routine Mixed hyperlipidemia (CMS/HCC) Expected: 10/05/2024 (Approximate), Expires: 10/05/2025 [facility] Comment on above: Expected: 10/05/2024 (Approximate), Expires: 10/05/2025 Start: 10-05-2024 End: 10-05-2025 Microalbumin/Creatinine panel in random Urine Microalbumin / creatinine, urine ratio Lab Routine Primary hypertension (CMS/HCC) Type 2 diabetes mellitus with stage 3a chronic kidney disease, with long-term current use of insulin (HCC) ([facility]) Expected: 10/05/2024 (Approximate), Expires: 10/05/2025 [facility] Comment on above: Expected: 10/05/2024 (Approximate), Expires: 10/05/2025 Start: 10-05-2024 End: 10-05-2025 Urate [Mass/volume] in Serum or Plasma Uric acid Lab Routine Chronic gout of multiple sites, unspecified cause Expected: 10/05/2024 (Approximate), Expires: 10/05/2025 [facility] Comment on above: Expected: 10/05/2024 (Approximate), Expires: 10/05/2025 Start: 10-05-2024 End: 10-05-2025 Urinalysis complete panel - Urine Urinalysis with reflex microscopic (clean catch) Lab Routine Primary hypertension ([facility]) Type 2 diabetes mellitus with stage 3a chronic kidney disease, with long-term current use of insulin ([facility]) ([facility]) Tobacco dependency Expected: 10/05/2024 (Approximate), Expires: 10/05/2025 [facility] Comment on above: Expected: 10/05/2024 (Approximate), Expires: 10/05/2025 Start: 09-11-2024 Urine screening for protein Diabetes: Urine Protein Screening [facility] Start: 07-02-2024 Screening for malign ant neoplasm of breast Mammogram [facility] Start: 06-29-2024 End: 06-29-2024 Patient encounter procedure 06/29/2024 1:15 PM EST Procedure Visit [facility] [address] [place] [id number] Nadja Fulton DPM [address] [place] [address] [facility] Start: 05-18-2024 End: 05-18-2024 Patient encounter procedure 05/18/2024 1:00 PM EST Procedure [facility] PODIATRY [address] [place] [phone] Nadja Fulton DPM [address] [place] [address] [facility] POD[facility] Start: 04-13-2024 Medicare Annual Well ness (AWV) Medicare Annual Wellness (AWV) [facility] Start: 03-15-2024 End: 03-15-2024 Patient encounter procedure 03/15/2024 9:00 AM EST Office Visit [facility] [address] [place] [phone] Juan Antonio Carver, DENA [address] [place] [address] [facility] CW FM Start: 01-06-2024 End: 01-06-2024 Patient encounter procedure 01/06/2024 3:30 PM EDT Office Visit [facility] PODIATRY [address] [place] [phone] Nadja Fulton, DP [address] [place] [address] Type 2 diabetes mellitus with stage 3a chronic kidney disease, with long-term current use of insulin ([facility]) ([facility]); Diabetic polyneuropathy associated with type 2 diabetes mellitus ([facility]) [facility] PODIAT[facility] Comment on above: Type 2 diabetes lon itus with stage 3a chronic kidney disease, with long-term current use of insulin (HCC) ([facility]); Diabetic polyneuropathy associated with type 2 diabetes mellitus ([facility]) Start: 01-03-2024 Influenza vaccination Influenza Vacc ine (#1) [facility] Start: 10-16-2023 Hemoglobin A1c measurement Diabetes: Hemoglobin A1C [facility] Start: 06-24-2023 Patient referral [facility] Work Phone: Start: 03-04-2023 Bacteria identified in Urine by Culture [facility] Start: 12-12-2022 FUV, Provider: Shashi Cottrell, Status: Pen, Time: 3:20 PM FUV, Provider: Shashi Cottrell, Status: Pen, Time: 3:20 PM [facility] [address] DO Work Phone: Start: 01-10-2022 FUV, Provider: Shashi Cottrell, Status: Pen, Time: 2:00 PM FUV, Provider: Shashi Cottrell, Status: Pen, Time: 2:00 PM [facility] 250 DO Work Phone: Start: 07-01-2021 FUV, Provider: Shashi Cottrell, Status: Pen, Time: 8:40 AM FUV, Provider: Shashi Cottrell, Status: Pen, Time: 8:40 AM [facility] [address] [place] Work Phone: Start: 05-28-2021 FUV, Provider: Shashi Cottrell, Status: Pen, Time: 10:50 AM FUV, Provider: Shashi Cottrell, Status: Pen, Time: 10:50 AM [facility] 250 DO Work Phone: Start: 05-20-2021 ECHO, Provider: CAROLE SHEETS [facility] ULTRASOUND 01,[id number], Status: Pen, Time: 10:45 AM ECHO, Provider: JACEY [facility] ULTRASOUND 01,[id number], Status: Pen, Time: 10:45 AM [facility] 250 DO Work Phone: Start: 1955 Screening for malign ant neoplasm of colon [facility] Breast - bilatera l Screening [facility] Patient referral [facility] Work Phone: Renal function 2000 panel - Serum or Plasma [facility] Immunizations Immunization Date Immunization Notes Care Provider Yaima saul 10-20-2020 pneumococcal polysaccharide vaccine, 23 valent Shaikh Jeison Work Phone: [facility] 250 DO Work Phone: 08-23-2020 COVID-19 Vaccine Mod jasson - Documentation Purposes Only Juan Gonzalez Other [facility] 05-04-2020 pneumococcal conjuga te vaccine, 13 valent Dial Fawwad Work Phone: [facility] Work Phone: Comment on above: Series: 02-03-2020 Influenza, injectabl e, Madin Cylinder Canine Kidney, preservative free, quadrivalent Dial Fawwad Work Phone: [facility] Work Phone: 02-03-2020 influenza virus vacc ine, unspecified formulation Nadja Fulton M Work Phone: [facility] 02-09-2019 Vaxneuvance 0.5 ML Intramuscular Suspension Prefilled Syringe Dial Fawwad Work Phone: [facility] [employer] DO Work Phone: 04-05-2017 influenza, injectabl e, quadrivalent, preservative free Dial Fawwad Work Phone: [facility] Work Phone: Payers Date Payer Category Payer Self-pay [id number] 2022 Medicare [facility] MEDICARE ADVANTAGE [facility] MEDICARE [id number] 2022-Present [address] [place] [id number] 2022 Medicare (Managed Care) [facility] [id number] 2022 Medicaid [id number] 2022 Private Health Insurance 1959 Medicare [id number] 2.16.840.1.946098.19 1955 Unknown [id number] 2.16.840.1.903397.3.579.2. 593 1955 Unknown [id number] 2.16.840.1.322752.3.579.2. 593 1955 Unknown [id number] 2.16.840.1.974988.3.579.2. 593 1955 Unknown [id number] 2.16.840.1.207479.3.579.2. 593 1955 Unknown [id number] 2.16.840.1.003460.3.579.2. 593 1955 Unknown [id number] 2.16.840.1.409592.3.579.2. 593 1955 Unknown [id number] 2.16.840.1.222425.3.579.2. 593 1955 Unknown [id number] 2.16.840.1.187147.3.579.2. 593 1955 Unknown [id number] 2.16.840.1.841029.3.579.2. 593 1955 Unknown [id number] 2.16.840.1.067260.3.579.2. 593 1955 Unknown [id number] 2.16.840.1.994633.3.579.2. 593 1955 Unknown [id number] 2.16.840.1.858331.3.579.2. 593 1955 Unknown [id number] 2.16.840.1.310367.3.579.2. 356 1955 Unknown [id number] 2.16.840.1.887729.3.579.2. 356 1955 Unknown [id number] 2.16.840.1.889077.3.579.2. 196 1955 Unknown [id number] 2.16.840.1.230585.3.579.2. 196 1955 Unknown [id number] 2.16.840.1.074316.3.579.2. 196 1955 Unknown [id number] 2.840.1.576077.3.579.2. 196 1955 Unknown [id number] 2.840.1.264542.3.579.2. 196 1955 Unknown [id number] 2.840.1.217421.3.579.2. 196 1955 Unknown [id number] 2..840.1.492941.3.579.2. 1258 1955 Unknown [id number] 2.840.1.344031.3.579.2. 1258 1955 Unknown [id number] 2.840.1.331077.3.579.2. 1258 1955 Unknown [id number] 2.840.1.798441.3.579.2. 1258 1955 Unknown [id number] 2.16.840.1.862713.3.579.2. 1258 1955 Unknown [id number] 2.16.840.1.372630.3.579.2. 1258 1955 Unknown [id number] 2.16.840.1.685616.3.579.2. 1259 Medicare [id number] 2.16.840.1.934846.19 Unknown Unknown [id number] 2.16.840.1.819152.3.579.2. 531 Unknown [id number] 2.16.840.1.842231.3.579.2. 531 Social History Date Type Detail Facility Start: 04-09-2023 End: 12-14-2023 Daily caffeine consumption Daily caffeine consumption [facility] Comment on above: 2-3 cups of coffee d aily.; 1/2 pack daily.; Start: 04-09-2023 End: 12-14-2023 Sex Assigned At [facility] Start: 01-24-2021 End: 03-22-2024 Tobacco smoking status NEIS Smoker (finding) [facility] Start: 1955 Sex Assigned At Female F [facility] Start: 12-14-2023 Tobacco smoking stat [facility] Smokes tobacco daily [facility] History of [...] file [facility] Start: 03-15-2024 End: 10-01-2024 Sex Female (finding) [facility] Medical Equipment Procedure Code Equipment Code Equipment Origin al Text Equipment Identifier Dates 1 strip by In Vi tro route 5 (five) times a day [id number] Start: 11-12-2023 End: 11-11-2024 Functional Status Date Assessment Result Facility 07-01-2021 PHQ-9 [id number] Mild (5-9) -[facility] Olivarez DO Work Phone: Clinical Notes 12-03-2019 to 10-05-2024 Telephone Encounter - Coni Osorio NP - 10/05/2024 8:05 AM EDTTelephone Encounter - Coni Osorio NP - 10/05/2024 8:05 AM EDT Note Date & Type Note Facility 10-05-2024 Telephone encounter Note Form atting of this note might be different from the original. Please contact pt, she has not had labs completed in over a year. I filled her paxil, but her other meds I cannot fill until I have some updated labs, these are fasting 8 hours and see where they need faxed. Also make sure she keeps her scheduled appt for November [facility] 10-05-2024 Miscellaneous Notes Formattin g of this note might be different from the original. Please contact pt, she has not had labs completed in over a year. I filled her paxil, but her other meds I cannot fill until I have some updated labs, these are fasting 8 hours and see where they need faxed. Also make sure she keeps her scheduled appt for November documented in this encounter [facility] 08-08-2024 Evaluation note Diagnosis Tobacco dependency- Primary Tobacco [...] diabetes mellitus (CMS/HCC) documented [facility] this encounter [facility]lsheqkwzo93-00-4188 Evaluation note* Diagnosis Tobacco dependency- Primary Tobacco [...] claudication Pulmonary emphysema, unspecified emphysema type (CMS/HCC) Psychophysiological insomnia Persistent disorder of initiating or maintaining sleep Type 2 diabetes mellitus with stage 3a chronic kidney disease, with long-term current use of insulin (HCC) (CMS/HCC) documented [facility] this encounter [facility]hjxckrlwl40-80-3863 Evaluation note* Diagnosis Tobacco dependency- Primary Tobacco [...] (CMS/HCC) Mixed hyperlipidemia documented [facility] this encounter [facility]uaogchiyv25-03-7952 History of Present illness Narrative* Nadja Fulton DPM - 01/06/2024 3:30 PM EDT Images from the original note were not included. Subjective Patient ID: Vidhya Ibarra is a 68 y.o. female who presents for DM Foot Care (Vidhya Ibarra 68yoNew patient with referral from [place], for Diabetic foot exam, neuropathic. BS 140 A1C7.5 Juan Antonio Mipatrick 12/14/2023 SS 8). HPI Initial patient encounter [...] once daily, Disp: 90 tablet, Rfl: 1 Jpdgbadeaof-Bdncwwfmn-Cnjjfp (Trelegy Ellipta) 200-62.5-25 MCG/ACT aerosol powder , [...] Age of Onset Other (Other) Mother Radha Otto Varicose veins Hypertension Mother Radha Couch Heart disease Mother Radha Couch Diabetes Mother Radha Couch Cancer Mother Radha Couch Cancer Father Sara Otto Hypertension Father Sara Otto Diabetes Father Sara Coumatthew Alcohol abuse Father Sara Otto Cancer Child Objective General assessment: Alert and [...] understanding. Nadja Fulton DPM documented in this [facility]09-04-2024 Instructions* Patient Instructions* Nadja Fulton DPM - 01/06/2024 3:30 PM EDT Instructions as noted documented in this [facility]11-08-2023 Evaluation note* Encounter Date Diagnosis Assessment Notes [...] I have prescribed oral magnesium once daily. [employer] Other 03-16-2023 NotePAIN MANAGEMENT CONSULTATION CONSULTATION DATE: [...] months' time unless otherwise indicated.[facility] CenterDfojqcco92-70-1677 NoteCONSULTATION CONSULTATION DATE: 04/10/2022 HISTORY OF PRESENT [...] weeks ago, and she completed those in [place]. She is continuing her home exercises as [...] does agree with this plan.[facility] CenterYbeegdie92-21-1506 NoteCONSULTATION CONSULTATION DATE: 01/09/2022 HISTORY OF PRESENT [...] weeks. Patient prefers to do this in [place]. She will be followed up in the office in three months' time and was encouraged to take a multivitamin daily. Patient agrees with this plan of care. [facility] CenterYzbajujo23-93-9544 NoteCONSULTATION CONSULTATION DATE: 10/17/2021 HISTORY OF PRESENT [...] in three months' time unless otherwise indicated. [facility] Signed and Approved by: EVA ROSEN . 10/30/2021 16:23:00[facility]06-16-2022 NoteCONSULTATION PROCEDURE DATE:10/17/2021 PREOPERATIVE DIAGNOSIS: Bilateral [...] will be followed up in the office. [facility] Signed and Approved by: EVA ROSEN . 10/30/2021 16:23:00[facility]01-21-2022 Evaluation note* Encounter Date Diagnosis Assessment [...] at this point no intervention is needed. [employer] Other 12-07-2021 Evaluation note* Encounter Date Diagnosis [...] - M50.123) Apr, Cardiomegaly (ICD-10 - I51.7) [employer] Other 01-15-2021 History of Present illness Narrative* [...] she will follow-up after testing is completed [facility] Work Phone: 1(846) 453-872401-10-2021 History of Present illness Narrative* Patient is [...] she will follow-up after testing is completed [facility] [employer] DO Work Phone: 1(345) 335-441908-01-2020 History general Narrative - Reported* Type Description Date Medical History TYPE II DIABETES Medical History HYPERTENSION Medical History ENLARGE HEART Surgical History CHOLECYSTECTOMY Hospitalization History PNEUMONIA 12/2019 [employer] Other chief complaint Narrative - ReportedLINDA FRED is being seen for a consultation for cardiomegaly.[facility] 250 DO Work Phone: Chief complaint Narrative - ReportedLINDA FRED is being seen for a consultation for cardiomegaly.[facility] Work Phone: Consult note Author Yakelin Staley [facility] March 25, 2023 10:10am Note Date/Time March 24, 2023 1:49pm [facility] [place] [address] Hem/Onc Consult Note - OP Signed Patient: Vidhya Ibarra MR#: [id number] : 1955 Acct:[id number] Age/Sex: 67 / F Type: REG RCR [...] than it does when touched. [facility] - Medical History Medical History: Medical History [...] for coordination of care (as documented) and ejnj-sx-idvr counseling of patient and/or family. Dictated By: Yakelin Staley APRN DD/ 2629 Signed By: <Electronically signed by JOSE Staley> 03/25/23 1010 [facility] Work Phone: Evaluation noteNo assessment information available [facility] Work Phone: Evaluation noteNo InformationNorth ChampionVillage Other Evaluation note* Diagnosis Onset Date Resolution Status Leukocytosis acute Breast nodule acute Leukocytosis acute Recurrent boils acute Yeast infection acute [facility] Work Phone: evaluation note* Diagnosis Onset Date Resolution Status Breast nodule acute Leukocytosis acute Recurrent boils acute Yeast infection acute Leukocytosis acute Breast nodule acute Leukocytosis acute Recurrent boils acute Yeast infection acute [facility] Work Phone: Evaluation note* Diagnosis Tobacco dependency- [...] diabetes mellitus (CMS/HCC) documented in this encounter [facility] HealthcareEvaluation note* Diagnosis Onset Date Resolution Status [...] kidney disease acute March 22, 2024 11:14am [facility] Work Phone: Evaluation note* Diagnosis Moderate episode of recurrent major depressive disorder (CMS/HCC) documented in this encounter [facility] HealthcareEvaluation note* Diagnosis Dermatophytosis of nail- Primary Type 2 diabetes mellitus with stage 3a chronic kidney disease, with long-term current use of insulin (HCC) (CMS/HCC) Diabetic polyneuropathy associated with type 2 diabetes mellitus (CMS/HCC) Dystrophic nail Other specified disease of nail documented in this encounter [facility] HealthcareEvaluation note* Diagnosis Type 2 diabetes mellitus with stage 3a chronic kidney disease, with long-term current use of insulin (HCC) (CMS/HCC) documented in this encounter [facility] HealthcareEvaluation note* Diagnosis Tobacco dependency- Primary Tobacco [...] diabetes mellitus (CMS/HCC) documented in this encounter [facility] HealthcareEvaluation note* Diagnosis Tobacco dependency- Primary Tobacco [...] Unspecified essential hypertension documented in this encounter [facility] HealthcareEvaluation note* Diagnosis Tobacco dependency- Primary Tobacco [...] claudication Pulmonary emphysema, unspecified emphysema type (CMS/HCC) Primary hypertension (CMS/HCC)- Primary Unspecified essential hypertension Moderate episode of recurrent major depressive disorder (CMS/HCC) Chronic diastolic congestive heart failure (CMS/HCC) Type 2 diabetes mellitus with stage 3a chronic kidney disease, with long-term current use of insulin (HCC) (CMS/HCC) Mixed hyperlipidemia (CMS/HCC) Mixed hyperlipidemia Tobacco dependency Tobacco use disorder Chronic gout of multiple sites, unspecified cause [facility] [...] weight loss and more importantly smoking cessation. -[facility] 250 DO Work Phone: Hospital Discharge instructionsAmbulatory Orders* Referral to General Surgery Time Frame: 06/24/23, Location: None Selected [facility] Work Phone: Progress note Author Rebeca Ashraf [facility] June 24, 2023 10:45am Note Date/Time June 24, 2023 10:07am [facility] [address] Cancer Center Note Signed Patient: Vidhya Ibarra MR#: [id number] : 1955 Acct:[id number] Age/Sex: 67 / F Type: REG AMB [...] % (Auto) 74.3 Lymph % (Auto) 18.0 [place] % (Auto) 5.2 Eos % (Auto) 1.7 Baso % (Auto) 0.8 Nucleat RBC Rel Count 0.1 Neut # (Auto) 10.6 H Lymph # (Auto) 2.6 [place] # (Auto) 0.7 Eos # (Auto) 0.2 [...] signed by Rebeca Ashraf MD> 06/24/23 1045 [facility] Work Phone: Summary Purpose Family History Unknown [...] Treat Diagnosis 1 Cardiomegaly (I51.7) Referral Organization [facility] Ne urosurgery Referring Provider First Name Juan Referring Provider Last Name Carlos Referring Provider Specialty Neurologica l Surgery Referred Organization [facility] enter Referred Provider Jason Johnson Referred Address [address] [place] [address] [place] [address] Referred Provider Specialty Cardiac Surg nicholas Referral Priority Routine General Notes Fore, Neena M 021 08:49:37 AM >Received today and waiting for office notes to be lockedNeena Estevez 04/16/2021 03:27:00 PM >[facility] office request us to fax the referral to them and they will review and call patient to schedule their appointment. Referral was fax Reason Evaluate and Treat Diagnosis 1 Cervical disc disord er at C5-C6 level with radiculopathy (M50.122) Referral Organization [facility] urosurgery Referring Provider First Name Juan Referring [...] chronic kidney disease March 22, 2024 11:14am Chief Complaint Admit Date N25.81, E83.42, K76.89, E79.0, N18.30 Ma y 2024 7:44am Additional Source Comments INFORMATION SOURCE (unrecogn ized section and content) DATE CREATED AUTHOR 12/03/2019 [facility] DATE CREATED AUTHOR AUTHOR'S ORGANIZ ATION 05/26/2021 [facility] DATE CREATED AUTHOR AUTHOR'S ORGANIZ ATION 10/10/2022 [facility] DATE CREATED AUTHOR AUTHOR'S ORGANIZ ATION 12/08/2022 [facility] DATE CREATED AUTHOR AUTHOR'S ORGANIZ ATION 12/09/2022 [employer] DATE CREATED AUTHOR AUTHOR'S ORGANIZ ATION 10/13/2023 [facility] DATE CREATED AUTHOR AUTHOR'S ORGANIZ ATION 01/08/2024 [facility] EPIC DATE CREATED AUTHOR AUTHOR'S ORGANIZ ATION 10/02/2024 [facility] REASON FOR VISIT (unrecogniz ed [...] with long-term current use of insulin (HCC) ([facility]) Diabetic polyneuropathy associated with type 2 diabetes mellitus ([facility]/HCC) Procedures [place] OFFICE/OUTPATIENT NEW HIGH MDM 60 MINUTES Juan Antonio Carver NP [address] [place] [address] Alysia Rhodes, DPM [address] [place] [address] Referral ID Status Reason Start Date Expiration Date V isits Requested Visits Authorized [id number] Closed Specialty Services Required 12/14/2023 06/11/2024 1 1 Reason Onset Date Comments Med Refill 01/11/2024 Reason Comments Med Refill Reason Onset Date Comments Med Refill 05/12/2024 Reason Onset Date Comments Med Refill 05/24/2024 Reason Onset Date Comments Med Refill 08/03/2024 Reason Onset Date Comments Med Refill 08/08/2024 Reason Onset Date Comments Med Refill 10/05/2024 Care Teams (unrecognized sec tion and content) Team Status: Active Member Role Status Tena Mchugh MD Primary Care Provider Active Team Status: [...] Provider Nakul Schmid MD Referring Provider Active Team Status: Inactive Member Role Status Dates Shaikh Jeison MD Primary Care Provider Active Start: September 12, 2023 End: September 12, 2023 Alta Schmid MD Attending Provider Active Start : September 12, 2023 End: September 12, 2023 Bass Viol Repairer Relationship Specialty Start Date End Date Shaikh Mchugh MD [address] [place] [address] PCP - General Internal Medicine 07/03/23 Team [...] March 22, 2024 End: March 22, 2024 Bass Viol Repairer Relationship Specialty Start Date End Date Shaikh Mchugh MD [address] [place] [address] PCP - General Internal Medicine 07/03/23 Bass Viol Repairer Relationship Specialty Start Date End Date Shaikh Mchugh MD [address] [place] [address] PCP - General Internal Medicine 07/03/23 Bass Viol Repairer Relationship Specialty Start Date End Date Shaikh Mchugh MD [address] [place] [address] PCP - General Internal Medicine 07/03/23 Bass Viol Repairer Relationship Specialty Start Date End Date Gaetano Andrea MD [address] [place] [address] PCP - General Family Medicine 04/18/24 Juan Antonio Carver NP [address] [place] [address] Nurse Practitioner Family Medicine 04/18/24 Bass Viol Repairer Relationship Specialty Start Date End Date Gaetano Andrea MD [address] [place] [address] PCP - General Family Medicine 04/18/24 Juan Antonio Carver NP [address] [place] [address] Nurse Practitioner Family Medicine 04/18/24 Bass Viol Repairer Relationship Specialty Start Date End Date Gaetano Andrea MD [address] [place] [address] PCP - General Family Medicine 04/18/24 Juan Antonio Carver NP [address] [place] [address] Nurse Practitioner Family Medicine 04/18/24 Bass Viol Repairer Relationship Specialty Start Date End Date Gaetano Andrea MD [address] [place] [address] PCP - General [facility] 04/18/24 Juan Antonio Carver NP [address] [place] [address] Nurse Practitioner [facility] 04/18/24 Bass Viol Repairer Relationship Specialty Start Date End Date Gaetano Andrea MD [address] [place] [address] PCP - [facility] 04/18/24 Juan Antonio Carver NP [address] [place] [address] Nurse Practitioner [facility] 04/18/24 Team Status: Active Member Role Status Dates PHYSICIAN NO FAMILY Primary Care Provider Active Team Status: Inactive Member Role Status Dates PHYSICIAN NO FAMILY Primary Care Provider Active Start: September 30, 2024 End: September 30, 2024 Alta Schmid MD Attending Provider Active Start : September 30, 2024 End: September 30, 2024 Bass Viol Repairer Relationship Specialty Start Date End Date Gaetano Andrea MD [address] [place] [address] PCP - [facility] 04/18/24 Juan Antonio Carver NP [address] [place] [address] Nurse Practitioner [facility] 04/18/24 Goals (unrecognized section and content) Goals [...] BE BASED ON THE PRIMARY CLINICAL RECORDS. [facility]. provides no warranty or guarantee of the accuracy or completeness of information in this document.
--- OUTSIDE RECORDS SUMMARY | 2024-10-28 07:30 | XMS_ITS | Encounter Summary ---
Author Organization [facility] Address [address] [place] [address] Care Team Providers Care School Psychometrist Name Role Phone Shaikh ALO Mchugh Primary Care Provider [phone] Shaikh ALO Mchugh Primary Care Provider [phone] Gaetano Andrea MD Primary Care Provider [phone] Marilee Carver CHEESEMAKER Unavailable [phone] Encounter Details Date Type Department Care Team (Late st Contact Info) Description 05/19/2023 Orders Only [facility] [address] [place] [address] Shaikh Mchugh MD [address] [place] [address] Social History Tobacco Use Types Packs/Day Years [...] week 04/09/2023 How often do you attend mormon or presybeterian serv ices? Never 04/09/2023 Do you belong to any clubs o r organizations such as mormon groups, unions, fraternal or athletic groups, or [...] Recorded Patient Health Questionnaire-2 Score 0 04/13/2023 [facility] - Occupational [...] place to sleep or slept in a long-term (including now)? No 04/09/2023 Comments Unknown Sex and Gender Information Value Date Recorded Sex Assigned at Not on file Legal Sex Female 8:13 PM EDT Gender Identity Not on file Sexual Orientation Not on file documented as of this encounter Plan of Treatment Upcoming Encounters Date Type Department Care Team (Late st Contact Info) Description 11/02/2024 10:00 AM EDT Office Visit [facility] [address] [place] [address] Coni Osorio NP [address] [place] [address] documented as of this encounter Procedures Procedure Name Priority Date/Time Associated Diagnosis Comments LAB COLOGUARD COLON CANCER SCREEN Routine 05/19/2023 10:23 AM EST documented in this encounter Results * Cologuard?? colon cancer screening (05/19/2023 10:23 AM EST) Stool Shaikh Jeison [facility] ORDER DEIRDRE Final Result documented in this encounter Visit Diagnoses Not on filedocumented in this encounter Care Teams School Psychometrist Relationship Specialty Start Date End Date Shaikh Mchugh MD PCP - General Internal Medicine 10/31/22 07/02/23 Shaikh Mchugh MD [address] [place] [phone] PCP - General Internal Medicine 07/03/23 04/17/24 Gaetano Andrea MD [address] [place] [address] PCP - General Family Medicine 04/18/24 Marilee Carver NP [address] [place] [address] Nurse Practitioner Family Medicine 04/18/24 documented as of this encounter
--- OUTSIDE RECORDS SUMMARY | 2024-10-28 07:30 | XMS_ITS | Encounter Summary ---
Author Organization [facility] Address [address] [place] [address] Care Team Providers Care Material Mover Name Role Phone Shaikh ALO Mchugh Primary Care Provider [phone] Gaetano Andrea MD Primary Care Provider Marilee Carver ANIMAL SERVICES OFFICER Unavailable [phone] Encounter Details Date Type Department Care Team (Late st Contact Info) Description 08/16/2023 Orders Only [facility] [address] [place] [address] Shaikh Mchugh MD [address] [place] [address] Type 2 diabetes mellitus with stage 3a chronic kidney disease, with long-term current use of insulin (HCC) (Primary Dx) Social History Tobacco Use Types [...] week 04/09/2023 How often do you attend gnosticism or anabaptism serv ices? Never 04/09/2023 Do you belong to any clubs o r organizations such as gnosticism groups, unions, fraternal or athletic groups, or [...] Date Recorded Patient Health Questionnaire-2 Score 2 07/13/2023 [facility]ational Stress Questionnaire Answer [...] Office Visit [facility] [address] [place] [phone] Coni Osorio NP [address] [place] [address] documented as of this encounter Visit Diagnoses Diagnosis Type 2 diabetes mellitus with stage 3a chronic kidney disease, with long-term current use of insulin (HCC)- Primary documented in this encounter Care Teams Material Mover Relationship Specialty Start Date End Date Shaikh Mchugh MD [address] [place] [address] PCP - General Internal Medicine 07/03/23 04/17/24 Gaetano Andrea MD [address] [place] [address] PCP - General Family Medicine 04/18/24 Marilee Carver NP [address] [place] [address] Nurse Practitioner Family Medicine 04/18/24 documented as of this encounter
--- OUTSIDE RECORDS SUMMARY | 2024-10-28 07:30 | XMS_ITS | Encounter Summary ---
Author Organization [facility] Address [address] [place] [address] Phone Care Team Providers Care Wine Steward Name Role Phone Shaikh ALO Mchugh Primary Care Provider [phone] Encounter Details Date Type Department Care Team (Late st Contact Info) Description 11/29/2021 Orders Only [facility] [address] [place] [address] Conversion, Onbase Social History Tobacco Use Types Packs/Day Years Used Date Smoking Tobacco: Never Assessed PHQ-2 Answer Date Recorded Patient Health Questionnaire-2 Score 2 07/01/2021 Comments Unknown Sex and Gender Information Value Date Recorded Sex Assigned at Not on file Legal Sex Female 11:16 AM EST Gender Identity Not on file Sexual Orientation Not on file documented as of this encounter Plan of Treatment Scheduled Orders Name Type Priority Associated Diagnoses Orde r Schedule OUTSIDE LAB SCAN Lab Ordered: 11/29/2021 documented as of this encounter Visit Diagnoses Not on filedocumented in this encounter Additional Health Concerns Assessment Noted Time PHQ-9 Depression Total Score: 6 07/01/19 22 8:51 AM EST documented as of this encounter Care Teams Wine Steward Relationship Specialty Start Date End Date Shaikh Mchugh MD PCP - General 05/04/20 documented as of this encounter
--- OUTSIDE RECORDS SUMMARY | 2024-10-28 07:30 | XMS_ITS | Clinical Summary ---
Author Organization [facility] Address [id number] [place] [address] Care Team Providers Care French Folder Name Role Phone Unavailable Primary Care Provider Unavailabl e Social History Tobacco Use Types Packs/Day Years Used Date Smoking Tobacco: Never Assessed Childcare Answer Date Recorded Childcare Unknown 10/13/2018 Employment Answer Date Recorded Employment Unknown 10/13/2018 Comments Unknown Sex and Gender Information Value Date Recorded Sex Assigned at Not on file Legal Sex Female 11:34 AM EDT Gender Identity Not on file Sexual Orientation Not on file Plan of Treatment Not on file Medical Devices Not on file
--- OUTSIDE RECORDS SUMMARY | 2024-10-28 07:30 | XMS_ITS | Clinical Summary ---
Author Organization [facility] Address [address] [place] [address] Care Team Providers Care Instructional Leader Name Role Phone Unavailable Primary Care Provider [...]
--- OUTSIDE RECORDS SUMMARY | 2024-10-28 07:30 | XMS_ITS | Encounter Summary ---
Author Organization [facility] Address [address] [place] [address] Phone Care Team Providers Care Supervisor Grinding Name Role Phone Shaikh ALO Mchugh Primary Care Provider [phone] Encounter Details Date Type Department Care Team (Late st Contact Info) Description 11/28/2021 Orders Only [facility] [address] [place] [address] Conversion, Onbase Social History Tobacco Use Types [...] r Schedule OUTSIDE LAB SCAN Lab Ordered: 11/28/2021 documented as of this encounter Visit Diagnoses Not on filedocumented in this encounter Additional Health Concerns Assessment Noted Time PHQ-9 Depression Total Score: 6 07/01/19 22 8:51 AM EST documented as of this encounter Care Teams Supervisor Grinding Relationship Specialty Start Date End Date Shaikh Mchugh MD PCP - General 05/04/20 documented as of this encounter
--- OUTSIDE RECORDS SUMMARY | 2024-10-28 07:30 | XMS_ITS | Clinical Summary ---
Author Organization [facility] Healthcare Address [address] [place] [address] Care Team Providers Care Product Assurance Engineer Name Role Phone Gaetano Andrea MD Primary Care Provider [phone] Marilee Carver RESEARCH TECHNOLOGIST Unavailable [phone] Allergies Active Allergy Reactions Criticality Noted Date Comments Prednisolone Hives Medium 04/10/2023 Prednisone Hives 08/05/2023 Medications allopurinol (Zyloprim) 300 MG tablet Take 1 tablet by mouth in the morning. 023 Active pen needle 31G x 5 mm misc Inject 1 each under the skin 5 (five) times a day Use as instructed Active Glucose Blood (BLOOD GLUCOSE TEST STRIPS 333 ) 1 strip by In Vitro route 5 (five) times a day Active aspirin 81 MG EC tablet Take 1 tablet by mouth in the morning. Active oxyCODONE-acetami nophen (Percocet) 5-325 MG tablet Take 1 tablet by mouth every 12 (twelve) hours if needed for severe pain Active magnesium oxide (Mag-Ox) 400 MG tablet Take 1 tablet by mouth Daily 024 Active metoprolol tartrate (Lopressor) 50 MG tabletIndications :Primary hypertension Take 1 tablet (50 mg) by mouth in the morning and 1 tablet (50 mg) before bedtime. 180 tablet 024 Active pramipexole (Mirapex) 0.25 MG tabletIndications :RLS (restless legs syndrome) Take 1 tablet (0.25 mg) by mouth at bedtime 90 tablet 1 024 Active pen needle 31G x 5 mm miscIndications:T ype 2 diabetes mellitus with stage 3a chronic kidney disease, with long-term current use of insulin ([facility]) Twice a day 200 each 12 024 2024 Active allopurinol (Zyloprim) 100 MG tablet Take 100 mg by mouth Daily 024 Active magnesium oxide (Mag-Ox) 400 (240 Mg) MG tablet Take 400 mg by mouth in the morning and 400 mg before bedtime. 024 Active Fluticasone-Umecl idin-Vilant (Trelegy Ellipta) 200-62.5-25 MCG/ACT aerosol powderIndications :Pulmonary emphysema, unspecified emphysema type ([facility]) Inhale 1 puff Daily 1 each 1 024 Active gabapentin (Neurontin) 600 MG tabletIndications :Diabetic polyneuropathy associated with type 2 diabetes mellitus ([facility]) TAKE 1 TABLET BY MOUTH IN THE MORNING AND 1 TABLET BY MOUTH IN THE EVENING AND 1 TABLET BY MOUTH BEFORE BEDTIME 90 tablet 2 025 Active bumetanide (Bumex) 0.5 MG tabletIndications :Chronic diastolic congestive heart failure (HCC) Take 1 tablet (0.5 mg) by mouth Daily 90 tablet 1 025 Active losartan-hydroCHL OROthiazide (Hyzaar) 100-25 MG tabletIndications :Primary hypertension Take 1 tablet by mouth in the morning. 90 tablet 1 025 Active atorvastatin (Lipitor) 40 MG tabletIndications :Mixed hyperlipidemia Take 1 tablet (40 mg) by mouth in the morning. 90 tablet 1 025 Active insulin NPH-insulin regular (NovoLIN 70/30 FlexPen Relion) (70-30) 100 UNIT/ML injectionIndicati ons:Type 2 diabetes mellitus with stage 3a chronic kidney disease, with long-term current use of insulin ([facility]) Inject 20 Units under the skin in the morning and 20 Units in the evening. Inject before meals. 7 Insulin pen, 20 subcutaneous q12. 36 mL 025 Active traZODone (Desyrel) 100 MG tabletIndications :Psychophysiologi siobhan insomnia Take 1.5 tablets (150 mg) by mouth at bedtime 135 tablet 025 2024 Active glipiZIDE (Glucotrol) 10 MG tabletIndications :Type 2 diabetes mellitus with stage 3a chronic kidney disease, with long-term current use of insulin (HCC) TAKE 1 TABLET BY MOUTH IN THE MORNING AND 1 TABLET IN THE EVENING. TAKE BEFORE MEALS 180 tablet 025 Active PARoxetine (Paxil) 20 MG tabletIndications :Moderate episode of recurrent major depressive disorder (HCC) Take 1 tablet (20 mg) by mouth in the morning. 90 tablet 025 2024 Active PARoxetine (Paxil) 20 MG tabletIndications :Moderate episode of recurrent major depressive disorder (HCC) Take 1 tablet (20 mg) by mouth in the morning. 90 tablet 1 024 2024 Discontinued(R eorder) glipiZIDE (Glucotrol) 10 MG tabletIndications :Type 2 diabetes mellitus with stage 3a chronic kidney disease, with long-term current use of insulin (HCC) Take 1 tablet (10 mg) by mouth in the morning and 1 tablet (10 mg) in the evening. Take before meals. 180 tablet 025 2024 Discontinued Active Problems Problem Noted Date Diagnosed Date Chronic gout of multiple sites 10/05/2024 Degeneration of lumbar intervertebral disc 07/12 Depressive disorder 07/13/2023 Leukocytosis 07/13/2023 Moderate episode of recurrent major depressive d isorder 07/13/2023 Assessment & Plan (07/13/2023 1:29 PM EDT): Her symptoms were well controlled on Paxil. She reports anhedonia, unstable mood, frequent crying, and depressive symptoms. She has not been using it for 3 months now. She is unsure what happened to her prescription and with the switch over to new system, how her prescription got dropped. She never reached out to use for a refill. Will restart paxil at 20 mg. Psychophysiological insomnia 07/13/2023 Assessment & Plan (07/13/2023 1:32 PM EDT): On trazodone. Was working well until she stopped using paxil Will resume paxil for depression Follow up in 2 months and will address insomnia if persistent and still struggling with it Abscess of left groin 07/03/2023 Type 2 diabetes mellitus wit h stage 3a chronic kidney disease, with long-term current use of insulin 04/13/2023 Assessment & Plan (12/14/2023 11:00 AM EDT): Continue Glipizide and Novolin and directed DM foot exam completed in office today- educated on DM foot care. A1C and CMP ordered. Follows with Nephrology in January. Referral to podiatry for DM foot care. Assessment & Plan (09/14/2023 11:09 AM EDT): A1C 07/25 7.4 DM Eye Exam: 05/26 Average FSBS range from BGs consistently in an acceptable range No episode of hypoglycemia No medication adverse effects reported by the patient. Encouraged to call office if persistent hypoglycemia/hyperglycemia on home glucose monitoring noted. Insulin 70/30 20 units q12 Glipizide 10 q12. Check labs before next appointment Assessment & Plan (07/13/2023 1:25 PM EDT): DM Eye Exam: 05/26 Average FSBS range from BGs consistently in an acceptable range No episode of hypoglycemia No medication adverse effects reported by the patient. Patient educated on lifestyle modifications, dietary restrictions, signs and symptoms of hypoglycemia/hyperglycemia and importance of eating regular consistent meals. Stressed upon importance of checking blood glucose at home and bring blood glucose log to appointments. All questions, concerns answered and addressed. Encouraged to call office if persistent hypoglycemia/hyperglycemia on home glucose monitoring noted. Insulin 70/30 20 units q12 Glipizide 10 q12. Check A1C. Assessment & Plan (04/13/2023 9:32 AM EST): DM Eye Exam: 05/26 Average FSBS range from BGs consistently in an acceptable range No episode of hypoglycemia No medication adverse effects reported by the patient. Patient educated on lifestyle modifications, dietary restrictions, signs and symptoms of hypoglycemia/hyperglycemia and importance of eating regular consistent meals. Stressed upon importance of checking blood glucose at home and bring blood glucose log to appointments. All questions, concerns answered and addressed. Encouraged to call office if persistent hypoglycemia/hyperglycemia on home glucose monitoring noted. Mixed hyperlipidemia 04/13/2023 Assessment & Plan (12/14/2023 11:00 AM EDT): Continue Atorvastatin as directed. Assessment & Plan (07/13/2023 1:25 PM EDT): On Lipitor 40 mg Check Lipid panel. Assessment & Plan (04/13/2023 9:33 AM EST): On Lipitor 40 mg Check Lipid panel. Primary hypertension 04/13/2023 Assessment & Plan (12/14/2023 10:58 AM EDT): Continue Losartan-hydrochlorothiazide, Metoprolol, Bumex, and Aspirin 81mg Sees Cardiology- [place] Bring BP log to next visit Assessment & Plan (09/14/2023 11:08 AM EDT): BP well controlled. On average less than 130/90. Tolerating Anti hypertensive w/o adverse effects. C/w lopressor 50 q12, Losartan 100-25, bumex 0.5 mg Assessment & Plan (07/13/2023 1:26 PM EDT): BP well controlled. On average less than 130/90. Tolerating Anti hypertensive w/o adverse effects. Denies lightheadedness, dizziness, syncope, presyncope. Patient encouraged to continue with home BP monitoring and call office if he experiences orthostatic symptoms or persistently elevated BP. C/w lopressor 50 q12, Losartan 100-25, bumex 0.5 mg Assessment & Plan (04/13/2023 9:32 AM EST): BP well controlled. On average less than 130/90. Tolerating Anti hypertensive w/o adverse effects. Denies lightheadedness, dizziness, syncope, presyncope. Patient encouraged to continue with home BP monitoring and call office if he experiences orthostatic symptoms or persistently elevated BP. RLS (restless legs syndrome) 04/13/2023 Diabetic polyneuropathy asso ciated with type 2 diabetes mellitus 04/13/2023 Assessment & Plan (12/14/2023 10:56 AM EDT): Continue Gabapentin as directed DM foot exam completed; Advised to wear protective shoes when indoors and outdoors Referral sent to podiatry COPD (chronic obstructive pulmonary disease) wit h emphysema 04/13/2023 Assessment & Plan (12/14/2023 10:57 AM EDT): Trelegy reordered; Continue as directed Assessment & Plan (07/13/2023 1:26 PM EDT): Doing better with trelegy. She was previously on spiriva. Assessment & Plan (04/13/2023 9:33 AM EST): On Spiriva. Reports cough in the morning and mild shortness of breath on exertion. Patient interested in attempting to try Trelegy. Will call it in. Patient counseled and educated on adverse effects, drug interactions and to reach out to office/pharmacy if questions or concerns related to new medications. Chronic diastolic congestive heart failure 04/13 Assessment & Plan (12/14/2023 10:58 AM EDT): Continue Losartan-hydrochlorothiazide, Metoprolol, Bumex, and Aspirin 81mg Sees Cardiology- [facility] Bring BP log to next visit Chronic bilateral low back pain with right-sided sciatica 04/13/2023 Major depressive disorder in full remission 04/03 Tobacco dependency 04/13/2023 Assessment & Plan (04/13/2023 9:34 AM EST): Patient counseled on smoking/tobacco cessation. Patient educated on harmful effects of smoking cigarettes/tobacco including increased risk of cardiovascular diseases, chronic lung disease and multiple cancers. Patient was educated and informed of different behavioral and therapeutic interventions that can help with smoking/tobacco use. Patient's questions/concerns were addressed and answered related to therapeutic options. Patient was offered help and encouraged to reach out to provider if/when they are ready to quit. A total of over 3 minutes and up to 10 minutes were spent on Smoking/Tobacco use counseling. She is agreeable to try and use nicotine patches. Encounter for screening for malignant neoplasm o f colon 04/13/2023 Assessment & Plan (04/13/2023 9:34 AM EST): Colonoscopy over 10 years ago Will order Cologuard Encounter for screening mamm ogram for malignant neoplasm of breast 04/13/2023 Assessment & Plan (04/13/2023 9:34 AM EST): Order Mammogram Encounter for Medicare annual wellness exam 04/03 Assessment & Plan (04/13/2023 9:35 AM EST): Doing well. No active complaints to offer. Reviewed medical, surgical and social hx. Encouraged and counseled on smoking cessation Ordered mammogram/cologuard for the patient Encouraged to get Influenza vaccine, Shingles vaccine. Lumbar stenosis with neurogenic claudication 10/2022 Assessment & Plan (12/14/2023 10:59 AM EDT): Continue following with Pain Management; Percocet as ordered and directed by PM Ligamentum flavum hypertrophy 04/08/2023 Hx of degenerative disc disease 04/08/2023 Muscle spasm 04/08/2023 Lumbar radiculopathy 04/08/2023 Encounters Date Type Department Care Team Description 10/21/2024 Refill [facility] [address] [place] [address] Gaetano Andrea MD Type 2 diabetes mellitus with stage 3a chronic kidney disease, with long-term current use of insulin (HCC) 10/05/2024 Telephone [facility] [address] [place] [address] Coni Osorio NP 10/05/2024 Refill [facility] [address] [place] [address] Coni Osorio NP Primary hypertension (Primary Dx); Moderate episode of recurrent major depressive disorder (HCC); Chronic diastolic congestive heart failure (HCC); Type 2 diabetes mellitus with stage 3a chronic kidney disease, with long-term current use of insulin (HCC); Mixed hyperlipidemia ; Tobacco dependency; Chronic gout of multiple sites, unspecified cause 10/04/2024 Telephone [facility] [address] [place] [address] Coni Osorio NP 10/02/2024 Refill [facility] [address] [place] [address] Gaetano Andrea MD Type 2 diabetes mellitus with stage 3a chronic kidney disease, with long-term current use of insulin (HCC) 08/08/2024 [facility] [address] [place] [address] Gaetano Andrea MD Diabetic polyneuropathy associated with type 2 diabetes mellitus (HCC) 08/03/2024 Refill [facility] [address] [place] [address] Gaetano Andrea MD Psychophysiological insomnia; Type 2 diabetes mellitus with stage 3a chronic kidney disease, with long-term current use of insulin (HCC) from Last 3 Months Immunizations Immunization Administration Dates Next Due Influenza, injectable, MDCK, preservative free, quadrivalent 02/03/2020 Influenza, injectable, quadrivalent, preservativ e free 04/05/2017 Moderna SARS-CoV-2 Vaccination 08/23/2020 Pneumococcal Conjugate PCV 13 05/04/2020 Pneumococcal Conjugate PCV 15 02/09/2019 Pneumococcal Polysaccharide PPSV23 10/20/2020 Family History Medical History Relation Name Comments Cancer Child Alcohol abuse Father Sara Couch Cancer Father Sara Couch Diabetes Father Sara Couch Hypertension Father Sara Couch Cancer Mother Radha Couch Diabetes Mother Radha Couch Heart disease Mother Radha Couch Hypertension Mother Radha Couch Other Mother Radha Couch Varicose veins Relation Name Status Comments Child Alive Father Sara Couch Mother Radha Couch Social History Tobacco Use Types Packs/Day Years Used Date Smoking Tobacco: Every Day Cigarettes 0.5 50 Passive Smoke Exposure: Current Smokeless Tobacco: Never Tobacco Cessation:Ready to Q uit: Not Asked; Counseling Given: Not Answered Alcohol Use Standard Drinks/Week Comments Never 0 [...] week 04/09/2023 How often do you attend faith or anabaptist serv ices? Never 04/09/2023 Do you belong to any clubs o r organizations such as faith groups, unions, fraternal or athletic groups, or [...] Recorded Patient Health Questionnaire-2 Score 0 12/14/2023 [facility] - Occupational Stress [...] place to sleep or slept in a jail (including now)? No 04/09/2023 Comments Unknown Sex and Gender Information Value Date Recorded Sex Assigned at Not on file Legal Sex Female 8:13 PM EDT Gender Identity Not on file Sexual Orientation Not on file Last Filed Vital Signs Vital Sign Reading Time Taken Comments Blood Pressure 130/74 12/14/2023 9:00 AM EDT Pulse 71 12/14/2023 9:00 AM EDT 95% O 2 Temperature 36.6 C (97.8 F) 12/14/2023 9:00 AM EDT Respiratory Rate - - Oxygen Saturation 96% 04/13/2023 9:09 AM EST Inhaled Oxygen Concentration - - Weight 92.5 kg (204 lb) 01/06/2024 3:12 PM EDT Height 160 cm (5' 3 ) 01/06/2024 3:12 PM EDT Body Mass Index 36.14 01/06/2024 3:12 PM EDT Plan of Treatment Upcoming Encounters Date Type Department Care Team (Late st Contact Info) Description 11/02/2024 10:00 AM EDT Office Visit [facility] [address] [place] [address] Coni Osorio, RESEARCH TECHNOLOGIST [address] [place] [address] Health Maintenance Due Date Last Done Comments CT Colonography 1955 Colonoscopy 1955 FIT 1955 FOBT 1955 Lung Cancer Screening Shared Decision Making 1955 Sigmoidoscopy 1955 Diabetes: Hemoglobin A1C 10/16/2023 07/16/2023 Medicare Annual Wellness (AWV) 04/13/2024 04/13/2023 , 04/13/2023 Mammogram 07/02/2024 07/03/2023 Diabetes: Urine Protein Screening 09/11/2024 024 Influenza Vaccine (Season Ended) 2025 02/03/20 20, 04/05/2017 Diabetes: Retinopathy Screening 05/08/2025 , 05/04/2022 Colorectal Cancer Screening 05/19/2026 FIT-DNA 05/19/2026 05/19/2023, 05/08/2023 Pneumococcal Vaccine: 65+ Years Completed 10/20/2020, 05/04/2020, 02/09/2019 Procedures Procedure Name Priority Date/Time Associated Diagnosis Comments LAB COLOGUARD COLON CANCER SCREEN Routine 05/19/2023 10:23 AM EST from Last 3 Months or Most Recently Relevant to Health Maintenance Results * Cologuard?? colon cancer screening (05/19/2023 10:23 AM EST) Stool us Shaikh Jeison [facility] MOLECULAR DIAGNOSTICS ORDER DEIRDRE Final Result from Last 3 Months or Most Recently Relevant to Health Maintenance Insurance [facility] MEDICARE ADVANTAGE Care Teams Product Assurance Engineer Relationship Specialty Start Date End Date Gaeatno Andrea MD [address] [place] [address] PCP - General Family Medicine 04/18/24 Marilee Carver NP [address] [place] [address] Nurse Practitioner Family Medicine 04/18/24
--- OUTSIDE RECORDS SUMMARY | 2024-10-28 07:30 | XMS_ITS | Encounter Summary ---
Author Organization [facility] Address [address] [place] [address] Care Team Providers Care Customs House Broker Name Role Phone Gaetano Andrea MD Primary Care Provider Marilee Carver CARE ASST Unavailable [phone] Encounter Details Date Type Department Care Team (Late st Contact Info) Description 05/11/2024 Orders Only [facility] [address] [place] [address] [place] [address] [place] [address] Social History Tobacco Use Types Packs/Day Years [...] week 04/09/2023 How often do you attend voodoo or worship serv ices? Never 04/09/2023 Do you belong to any clubs o r organizations such as voodoo groups, unions, fraternal or athletic groups, or [...] Recorded Patient Health Questionnaire-2 Score 0 12/14/2023 [facility] - Occupational Stress [...] place to sleep or slept in a care home (including now)? No 04/09/2023 Comments Unknown Sex and Gender Information Value Date Recorded Sex Assigned at Not on file Legal Sex Female 8:13 PM EDT Gender Identity Not on file Sexual Orientation Not on file documented as of this encounter Plan of Treatment Upcoming Encounters Date Type Department Care Team (Late st Contact Info) Description 11/02/2024 10:00 AM EDT Office Visit [facility] [address] [place] [address] Coni Osorio NP [address] [place] [address] documented as of this encounter Procedures Procedure Name Priority Date/Time Associated Diagnosis Comments DIABETES EYE EXAM Routine 05/11/2024 11:24 AM EST documented in this encounter Results * Diabetes Eye Exam (05/11/2024 11:24 AM EST) Ean Garcia MD HEALTH MAINTENANCE Final Resul t documented in this encounter Visit Diagnoses Not on filedocumented in this encounter Care Teams Customs House Broker Relationship Specialty Start Date End Date Gaetano Andrea MD [address] [place] [address] PCP - General Family Medicine 04/18/24 Marilee Carver NP [address] [place] [address] Nurse Practitioner Family Medicine 04/18/24 documented as of this encounter
--- OUTSIDE RECORDS SUMMARY | 2024-10-28 07:30 | XMS_ITS | Encounter Summary ---
Author Organization [facility] Address [address] [place] [address] Phone Care Team Providers Care Web Developer Programmer Name Role Phone Shaikh ALO Mchugh Primary Care Provider Encounter Details Date Type Department Care Team (Late st Contact Info) Description 09/18/2022 Orders Only [facility] [address] [place] [address] Conversion, Onbase Social History Tobacco Use Types [...] r Schedule OUTSIDE LAB SCAN Lab Ordered: 09/18/2022 documented as of this encounter Visit Diagnoses Not on filedocumented in this encounter Additional Health Concerns Assessment Noted Time PHQ-9 Depression Total Score: 6 07/01/19 22 8:51 AM EST documented as of this encounter Care Teams Web Developer Programmer Relationship Specialty Start Date End Date Shaikh Mchugh MD PCP - General 05/04/20 documented as of this encounter
[2024-10-28 07:59] LABS: Basophils Absolute Auto 0.2 10^3/uL (0.0-0.1); Basophils Percent Auto 1.3 % (0.2-2.0); Eosinophils Absolute Auto 0.2 10^3/uL (0.0-0.7); Hematocrit 49.2 % (36.0-48.0); Immature Granulocytes Pct Auto 0.9 % (0.0-0.5); Lymphocytes Absolute Auto 2.4 10^3/uL (1.2-3.8); Lymphocytes Percent Auto 20.6 % (20.5-60.0); Mean Corpuscular HGB Conc 34.6 g/dL (29.9-35.2); Mean Corpuscular Hemoglobin 30.4 pg (26.7-34.0); Mean Platelet Volume 10.9 fL (9.5-13.5); Monocytes Absolute Auto 0.7 10^3/uL (0.3-0.8); Monocytes Percent Auto 5.7 % (1.7-12.0); Neutrophils Percent Auto 69.5 % (43.0-75.0); Platelet Count 255 10^3/uL (150-450); Red Blood Count 5.59 10^6/uL (4.20-5.40); Red Cell Distribution Width 14.3 % (11.0-15.0); White Blood Count 11.5 10^3/uL (4.0-11.0)
[2024-10-28 08:09] LABS: Estimated Average Glucose 252 mg/dL; Glycohemoglobin A1C 10.4 % (4.5-6.2)
[2024-10-28 08:14] LABS: Creatinine Urine Random 92.54 mg/dL (20.00-300.00); Microalbum Creatinine Ratio Ur 317.7 mg/g (0.0-29.9); Microalbumin Urine Random 29.4 mg/dL (<=30.0)
[2024-10-28 08:48] LABS: Bilirubin Urine NEGATIVE (NEGATIVE); Blood Urine NEGATIVE (NEGATIVE); Clarity Urine CLEAR (CLEAR); Color Urine LT. YELLOW (YELLOW); Glucose Urine UA NEGATIVE (NEGATIVE); Ketones Urine NEGATIVE (NEGATIVE); Leukocyte Esterase Urine NEGATIVE (NEGATIVE); Nitrite Urine NEGATIVE (NEGATIVE); Protein Urine 100 mg/dL (NEG/TRACE); Urobilinogen Urine 0.2 EU/dL (0.2-1.0)
[2024-10-28 08:49] LABS: Urine Microscopic Indicated NO
[2024-10-28 09:36] LABS: Alanine Aminotransferase 29 U/L (14-59); Albumin Globulin Ratio 0.9; Albumin Level 3.4 g/dL (3.4-5.0); Alkaline Phosphatase 119 U/L (46-116); Anion Gap 14.4; Aspartate Amino Transferase 14 U/L (15-37); BUN Creatinine Ratio 20.9; Bilirubin Total 0.5 mg/dL (0.2-1.0); Calcium 9.5 mg/dL (8.5-10.1); Chloride 103 mmol/L (98-107); Chol HDL Ratio 4.9; Cholesterol 191 mg/dL (<=200); Estimated GFR (African America 50 (>=60 mL/min/1.73m^2); Estimated GFR (Non-African Ame 41 (>=60 mL/min/1.73m^2); Globulin 3.6 g/dL; Glucose 250 mg/dL (74-106); HDL Cholesterol 39 mg/dL (40-60); Potassium 4.4 mmol/L (3.5-5.1); Sodium 139 mmol/L (136-145); Triglycerides 309 mg/dL (<=150); Uric Acid 7.4 mg/dL (2.6-6.0); VLDL CHOLESTEROL 61.8 mg/dL
== END 2024-10-28 07:25 | disposition home or self-care (01) ==
LOC: LAB 07:26
PROVIDERS: PCP Nurse Practitioner; Visit Provider Nurse Practitioner
DX: E78.2 Mixed hyperlipidemia (principal); I10 Essential (primary) hypertension; F17.200 Nicotine dependence, unspecified, uncomplicated; I50.32 Chronic diastolic (congestive) heart failure; E11.22 Type 2 diabetes mellitus with diabetic chronic kidney disease; N18.31 Chronic kidney disease, stage 3a; Z79.4 Long term (current) use of insulin; M1A.09X0 Idiopathic chronic gout, multiple sites, without tophus (tophi)
CPT/HCPCS: 36415; 80053; 80061; 81003; 82043; 82570; 83036; 84550; 85025

== ENCOUNTER 2024-11-23 09:05 | Outpatient (OUT) | payer MEDICARE, SELFPAY ==
--- OUTSIDE RECORDS SUMMARY | 2013-01-12 06:18 | XMS_ITS | Continuity of Care Document ---
Author Organization [facility] Address [address] [place] [address] Phone Care Team Providers Care Catering Service Manager Name Role Phone Ely Rider DO Unavailable Unavailable Allergies, Adverse Reactions, Alerts Substance Reaction Status Criticality No Known allergies Medications Medication Instructions Dosage Effective Dates (start - stop) Status Comments pravastatin 80 mg Tab take 1 tablet (80MG) by oral route every day at bedtime 80 MG - Active hydroxyzine pamoate 25 mg capsule take 1 capsule (25MG) by ORAL route 3 times every day as needed 25 MG - Active Coreg 12.5 mg Tab take 1 tablet (12.5MG) by oral route 2 times every day with food 12.5 MG - Active 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 lisinopril 10 mg tablet take 1 tablet (10MG) by oral route every day 10 MG - Active ZOSTAVAX (PF) 19,400 unit Sub-Q Soln inject SQ x 1 dose - Active Combivent 18 mcg-103 mcg/actuation Aerosol Inhaler inhale 2 puff by inhalation route 4 times every day - Active Actonel 35 mg Tab take 1 tablet (35MG) by oral route every week in the morning, at least 30 min before first food, beverage, or medication of day 35 MG - Active Ambien 5 mg Tab take 1 Tablet (5MG) by oral route every day at bedtime 5 MG - Active tramadol 50 mg Tab take 2 Tablet (100MG) by ORAL route 4 times every day 100 MG - Active hydroxychloroquine 200 mg Tab take 1 tablet (200MG) by ORAL route every day 200 MG - Active Calcium 600 + D(3) 600 mg (1,500)-200 unit Tab take 1 tablet by mouth twice daily - Active Fish Oil 1,000 mg Cap take 1 Capsule by Oral route every day - Active iron 325 mg (65 mg iron) Tab take 1 tablet (325MG) by ORAL route 2 times every day 325 MG - Active aspirin 81 mg Tab, Delayed Release take 1 tablet (81MG) by oral route every day 81 MG - Active Procedures Procedure Date OV Est Detailed VENIPUNCTURE OV Est Detailed OV Est Detailed OV Est Detailed ELECTROCARDIOGRAM, TRACING OV Est Detailed OV Est Detailed TOBACCO USE ASSESSED TOBACCO SMOKER, CURRENT SCREEND TOBACCO W CESSATION INTERV MED LIST DOCD IN RCRD BLOOD PRESSURE MEASURED WEIGHT RECORD BMI DOCUMENTED ALCOHOL USE (UNHEALTHY) SCRND 2 COLORECTAL CA SCREEN DOC REV VITAL SIGNS RECORDED BP SYST < 130 MM HG BP DIAST =OR> 90 MM HG [facility] OV Est Detailed OV Est Detailed FLU ADMINISTRATION Fluaval Vaccine 3> STATE OV Est Expanded OV Est Expanded OV Est Expanded OV Est Expanded OV Est Problem Focus Advance Directives Directive Yes / No Effective Date File Name No Information Encounters Encounter Description Practice Location Reason(s) For Visit Diagnoses Date Provider Providers Copied on Encounter [facility], [address], [place], [id number], tel:[phone] [facility] No Information 3 Tereso Graves. [address], [place], [id number] . tel:[phone] OV Est Detailed [facility], [address] [place] [address], [id number], [place] tel:[phone] [facility] hypertension (follow up) (chief complaint) Hypertension, UnspecifiedHYPER LIPIDEMIA Unspec NOSCAD, UnspecifiedObesi tyTobacco Abuse 3 Tereso Graves. [address], [place], [id number] . tel: [phone] OV Est Detailed [facility], [address] [place] [address], [id number], [place] tel:[phone] [facility] hypertension (chief complaint) Hypertension, UnspecifiedCAD, UnspecifiedTobac co AbuseObesity 3 Tereso Graves. [address], [place], [id number] . tel:[phone] OV Est Detailed [facility], [address] [place] [address], [id number], [place] tel:[phone] [facility] hypertension/ med refill (chief complaint) Hypertension, UnspecifiedTobac co AbuseCAD, Unspecified 3 Tereso Graves. [address], [place], [id number] . tel:[phone] [facility], [address] [place] [address], [id number], [place] tel:[phone] [facility] No Information 2 Tereso Graves. [address], [place], [id number] . tel:[phone] Referring Provider: Ely Rider, [address] [place], [address] . tel:[phone] OV Est Detailed [facility], [address] [place] [address], [id number], [place] tel:[phone] [facility] 3 month check up/med refills (chief complaint)hyp ertension (chief complaint) Hypertension, UnspecifiedCAD, UnspecifiedObesi tyTobacco Abuse 2 Tereso Graves. [address], [place], [id number] . tel:[phone] [facility], [address] [facility] [place], [place], [id number], [place] tel:[phone] [facility] No Information 2 Tereso Ely. [address] [facility] [place] [place] [id number] . tel:[phone] OV Est Detailed [facility], [address] [facility] [place] [id number], [place] tel:[phone] [facility] No Information 2 Tereso Ely. [address] [facility] [place], [place], [id number] . tel:[phone] OV Est Detailed [facility], [address] [facility] [place], [id number], [place] tel:[phone] [facility] No Information 2 Tereso Ely. [address] [facility] [place], [place], [id number] . tel:[phone] OV Est Detailed [facility], [address] [facility] [place], [place], [id number], [place] tel:[phone] [facility] No Information 1 Tereso Ely. [address] [facility] [place], [place], [id number] . tel:[phone] OV Est Expanded [facility], [address] [facility] [place], [place], [id number], [place] tel:[phone] [facility] No Information 1 Candelario Alondra. [address] [place], [id number] . tel:[phone] OV Est Expanded [facility], [address] [facility], [place], [place], [id number], [place] tel:[phone] [facility] No Information 0-201 1 [place] Alondra. [address] [place], [id number] . tel:[phone] OV Est Expanded [facility], [address] [place] [address], [id number], tel:[phone] [facility] No Information 4-201 0 [place] Alondra. [address] [place], [place], [id number] . tel:[phone] OV Est Expanded [address], [id number], tel:[phone] [facility] No Information 3-201 0 [place] Alondra. [address] [place], [place], [id number] . tel: [phone] OV Est Problem Focus [address], [id number], tel:[phone] [facility] No Information 4-201 0 Candelario Alondra. [address] [place], [place], [id number] . tel:[phone] Family History Family Member Type Diagnosis Age At Onset Mother Problem (finding) Alive and well Payers Payer name Insurance type Covered democrat ID Authorkushal martinez(s) [place] 06/06 [id number] Social History Type Description Quantity Date Captured Comments Sex Female Smoking Status No Information Chief Complaint And Reason For Visit No Information Reason For Referral Reason For Referral No Information Plan Of Treatment Date Type Action Status Goal Electrolyte panel. Due on Ap due Goal creatinine. Due on 13 due Goal Self Management Goals. Due o n due Goal H&P. Due on due Goal Diabetes Screening. 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 Due on due Goal Colonoscopy. Due on 013 due Goal Eye Exam. Due on due Goal Breast exam. Due on 013 due Goal Tobacco cessation counseling completed History Of Present Illness Encounter Date Complaint History Of Prese nt Illness No Information Functional Status Date Functional Assessmen t No Information Instructions Date Instruction Additional Infor mation No Information Assessments Type Assessment Date No Information Patient Care Teams Name Effective Dates (start - stop) Status Members No Information
--- OUTSIDE RECORDS SUMMARY | 2024-11-23 09:08 | XMS_ITS | Encounter Summary ---
Author Organization [facility] Address [address] [place] [address] Phone Care Team Providers Care Painter Rough Name Role Phone Shaikh ALO Mchugh Primary Care Provider [phone] Encounter Details Date Type Department Care Team (Late st Contact Info) Description 09/18/2022 Orders Only [facility] [address] [place] [address] Conversion, Onbase Social History Tobacco Use Types [...] documented as of this encounter Care Teams Painter Rough Relationship Specialty Start Date End Date Shaikh Mchugh MD PCP - General 05/04/20 documented as of this encounter
--- OUTSIDE RECORDS SUMMARY | 2024-11-23 09:08 | XMS_ITS | Encounter Summary ---
Author Organization [facility] Address [address] [place] [address] Care Team Providers Care Home Child Care Provider Name Role Phone Shaikh ALO Mchugh Primary Care Provider [phone] Shaikh ALO Mchugh Primary Care Provider [phone] Gaetano Andrea MD Primary Care Provider [phone] Marilee Carver HEALTH SERVICES COORDINATOR Unavailable [phone] Encounter Details Date Type Department Care Team (Late st Contact Info) Description 05/19/2023 Orders Only [facility] [address] [place] [address] Shaikh Mchugh MD [address] [place] [address] Social History Tobacco Use Types Packs/Day Years [...] week 04/09/2023 How often do you attend rastafarian or muslim serv ices? Never 04/09/2023 Do you belong to any clubs o r organizations such as rastafarian groups, unions, fraternal or athletic groups, or [...] Recorded Patient Health Questionnaire-2 Score 0 04/13/2023 [facility] - [...] place to sleep or slept in a fdc (including now)? No 04/09/2023 Comments Unknown Sex and Gender Information Value Date Recorded Sex Assigned at Not on file Legal Sex Female 8:13 PM EDT Gender Identity Not on file Sexual Orientation Not on file documented as of this encounter Plan of Treatment Upcoming Encounters Date Type Department Care Team (Late st Contact Info) Description 01/10/2025 8:30 AM EDT Office Visit [facility] [address] [place] [address] Coni Osorio NP [address] [place] [phone] 11/06/2025 10:30 AM EDT Office Visit [facility] [address] [place] [address] Coni Osorio NP [address] [place] [phone] documented as of this encounter Procedures Procedure Name Priority Date/Time Associated Diagnosis Comments LAB COLOGUARD COLON CANCER SCREEN Routine 05/19/2023 10:23 AM EST documented in this encounter Results * Cologuard?? colon cancer screening (05/19/2023 10:23 AM EST) Stool us Shaikh Jeison [facility] LAB MOLECULAR DIAGNOSTICS ORDER DEIRDRE Final Result documented in this encounter Visit Diagnoses Not on filedocumented in this encounter Care Teams Home Child Care Provider Relationship Specialty Start Date End Date Shaikh Mchugh MD PCP - General Internal Medicine 10/31/22 07/02/23 Shaikh Mchugh MD [address] [place] [address] PCP - General Internal Medicine 07/03/23 04/17/24 Gaetano Andrea MD [address] [place] [address] PCP - General Family Medicine 04/18/24 Marilee Carver NP [address] [place] [address] Nurse Practitioner Family Medicine 04/18/24 documented as of this encounter
--- OUTSIDE RECORDS SUMMARY | 2024-11-23 09:08 | XMS_ITS | Encounter Summary ---
Author Organization [facility] Address [address] [place] [address] Phone Care Team Providers Care Die Casting Machine Operator Name Role Phone Shaikh ALO Mchugh Primary Care Provider [phone] Encounter Details Date Type Department Care Team (Late st Contact Info) Description 11/28/2021 Orders Only [facility] [address] [place] [address] Conversion, Onbase Social History Tobacco Use Types [...] documented as of this encounter Care Teams Die Casting Machine Operator Relationship Specialty Start Date End Date Shaikh Mchugh MD PCP - General 05/04/20 documented as of this encounter
--- OUTSIDE RECORDS SUMMARY | 2024-11-23 09:08 | XMS_ITS | Clinical Summary ---
Author Organization [facility] Address [address] [place] [address] Care Team Providers Care Tug Master Name Role Phone Unavailable Primary Care Provider [...]
--- OUTSIDE RECORDS SUMMARY | 2024-11-23 09:08 | XMS_ITS | Clinical Summary ---
Author Organization [facility] Address [address] [place] [address] Care Team Providers Care Ranch Manager Name Role Phone Gaetano Andrea MD Primary Care Provider Marilee Carver HAND BOOTMAKER Unavailable [phone] Allergies Active Allergy Reactions Criticality Noted Date Comments Prednisolone Hives Medium 04/10/2023 Prednisone Hives 08/05/2023 Medications Glucose Blood (BLOOD GLUCOSE TEST STRIPS 333 ) 1 strip by In Vitro route 5 (five) times a day Active aspirin 81 MG EC tablet Take 1 tablet by mouth in the morning. Active oxyCODONE-acetami nophen (Percocet) 5-325 MG tablet Take 1 tablet by mouth every 12 (twelve) hours if needed for severe pain Active naloxone (Narcan) 4 mg/0.1 mL nasal spray Administer 4 mg into affected nostril(s) if needed 024 Active gabapentin (Neurontin) 300 MG capsule Take 300 mg by mouth in the morning and 300 mg at noon and 300 mg in the evening and 300 mg before bedtime. 025 Active allopurinol (Zyloprim) 100 MG tabletIndications :Chronic gout of multiple sites, unspecified cause Take 2 tablets (200 mg) by mouth Daily 180 tablet 025 2024 Active Fluticasone-Umecl idin-Vilant (Trelegy Ellipta) 200-62.5-25 MCG/ACT aerosol powderIndications :Pulmonary emphysema, unspecified emphysema type (HCC) Inhale 1 puff Daily Rinse mouth after use 180 each 1 2024 Active atorvastatin (Lipitor) 40 MG tabletIndications :Mixed hyperlipidemia Take 1 tablet (40 mg) by mouth in the morning. 90 tablet 1 Active bumetanide (Bumex) 0.5 MG tabletIndications :Chronic diastolic congestive heart failure (HCC) Take 1 tablet (0.5 mg) by mouth Daily Take 1 tablet (0.5 mg) by mouth Daily 90 tablet 2024 Active glipiZIDE (Glucotrol) 10 MG tabletIndications :Type 2 diabetes mellitus with stage 3a chronic kidney disease, with long-term current use of insulin ([facility]) Take 1 tablet (10 mg) by mouth in the morning and 1 tablet (10 mg) in the evening. Take before meals. 180 tablet 2024 Active insulin NPH-insulin regular (NovoLIN 70/30 FlexPen Relion) (70-30) 100 UNIT/ML injectionIndicati ons:Type 2 diabetes mellitus with stage 3a chronic kidney disease, with long-term current use of insulin ([facility]) Inject 25 Units under the skin in the morning and 25 Units in the evening. Inject before meals. 45 mL 1 2024 Active losartan-hydroCHL OROthiazide (Hyzaar) 100-25 MG tabletIndications :Primary hypertension Take 1 tablet by mouth in the morning. 90 tablet 2024 Active magnesium oxide (Mag-Ox) 400 (240 Mg) MG tabletIndications :Hypomagnesemia Take 1 tablet (400 mg) by mouth in the morning and 1 tablet (400 mg) before bedtime. 180 tablet 2024 Active metoprolol tartrate (Lopressor) 50 MG tabletIndications :Primary hypertension Take 1 tablet (50 mg) by mouth in the morning and 1 tablet (50 mg) before bedtime. 180 tablet 2024 Active PARoxetine (Paxil) 20 MG tabletIndications :Moderate episode of recurrent major depressive disorder ([facility]) Take 1 tablet (20 mg) by mouth in the morning. 90 tablet 2024 Active pen needle 31G x 5 mm miscIndications:T ype 2 diabetes mellitus with stage 3a chronic kidney disease, with long-term current use of insulin (HCC) Inject 1 each under the skin in the morning and 1 each before bedtime. Use as instructed. 200 each 3 025 2024 Active pramipexole (Mirapex) 0.25 MG tabletIndications :RLS (restless legs syndrome) Take 1 tablet (0.25 mg) by mouth at bedtime 90 tablet 025 2024 Active traZODone (Desyrel) 100 MG tabletIndications :Psychophysiologi siobhan insomnia Take 1.5 tablets (150 mg) by mouth at bedtime 135 tablet 025 2024 Active glucose blood (EDUS Ultra Blue Test) test stripIndications: Type 2 diabetes mellitus with stage 3a chronic kidney disease, with long-term current use of insulin ([facility]) 1 each by Other route in the morning and 1 each in the evening. Take before meals. 1. 200 each 3 025 2024 Active Blood Glucose Monitoring Suppl (ONE TOUCH ULTRA 2) w/Device kitIndications:Ty pe 2 diabetes mellitus with stage 3a chronic kidney disease, with long-term current use of insulin ([facility]) 1 kit Daily 1 kit 025 2025 Active Lancets 33G miscIndications:T ype 2 diabetes mellitus with stage 3a chronic kidney disease, with long-term current use of insulin ([facility]) 1 each in the morning and 1 each in the evening. 200 each 3 025 2024 Active allopurinol (Zyloprim) 300 MG tablet Take 1 tablet by mouth in the morning. 023 2024 Discontinued(T herapy completed) pen needle 31G x 5 mm misc Inject 1 each under the skin 5 (five) times a day Use as instructed 2024 Discontinued(R eorder) magnesium oxide (Mag-Ox) 400 MG tablet Take 1 tablet by mouth Daily 024 2024 Discontinued(T herapy completed) metoprolol tartrate (Lopressor) 50 MG tabletIndications :Primary hypertension Take 1 tablet (50 mg) by mouth in the morning and 1 tablet (50 mg) before bedtime. 180 tablet 024 2024 Discontinued(R eorder) pramipexole (Mirapex) 0.25 MG tabletIndications :RLS (restless legs syndrome) Take 1 tablet (0.25 mg) by mouth at bedtime 90 tablet 1 024 2024 Discontinued(R eorder) pen needle 31G x 5 mm miscIndications:T ype 2 diabetes mellitus with stage 3a chronic kidney disease, with long-term current use of insulin (HCC) Twice a day 200 each 12 024 2024 Discontinued(T herapy completed) allopurinol (Zyloprim) 100 MG tablet Take 100 mg by mouth Daily 024 2024 Discontinued(R eorder) magnesium oxide (Mag-Ox) 400 (240 Mg) MG tablet Take 400 mg by mouth in the morning and 400 mg before bedtime. 024 2024 Discontinued(R eorder) Fluticasone-Umecl idin-Vilant (Trelegy Ellipta) 200-62.5-25 MCG/ACT aerosol powderIndications :Pulmonary emphysema, unspecified emphysema type (HCC) Inhale 1 puff Daily 1 each 1 024 2024 Discontinued(R eorder) gabapentin (Neurontin) 600 MG tabletIndications :Diabetic polyneuropathy associated with type 2 diabetes mellitus (HCC) TAKE 1 TABLET BY MOUTH IN THE MORNING AND 1 TABLET BY MOUTH IN THE EVENING AND 1 TABLET BY MOUTH BEFORE BEDTIME 90 tablet 2 025 2024 Discontinued(T herapy completed) bumetanide (Bumex) 0.5 MG tabletIndications :Chronic diastolic congestive heart failure (HCC) Take 1 tablet (0.5 mg) by mouth Daily 90 tablet 1 025 2024 Discontinued(R eorder) losartan-hydroCHL OROthiazide (Hyzaar) 100-25 MG tabletIndications :Primary hypertension Take 1 tablet by mouth in the morning. 90 tablet 1 025 2024 Discontinued(R eorder) atorvastatin (Lipitor) 40 MG tabletIndications :Mixed hyperlipidemia Take 1 tablet (40 mg) by mouth in the morning. 90 tablet 1 025 2024 Discontinued(R eorder) insulin NPH-insulin regular (NovoLIN 70/30 FlexPen Relion) (70-30) 100 UNIT/ML injectionIndicati ons:Type 2 diabetes mellitus with stage 3a chronic kidney disease, with long-term current use of insulin ([facility]) Inject 20 Units under the skin in the morning and 20 Units in the evening. Inject before meals. 7 Insulin pen, 20 subcutaneous q12. 36 mL 025 2024 Discontinued(R eorder) traZODone (Desyrel) 100 MG tabletIndications :Psychophysiologi siobhan insomnia Take 1.5 tablets (150 mg) by mouth at bedtime 135 tablet 025 2024 Discontinued glipiZIDE (Glucotrol) 10 MG tabletIndications :Type 2 diabetes mellitus with stage 3a chronic kidney disease, with long-term current use of insulin ([facility]) TAKE 1 TABLET BY MOUTH IN THE MORNING AND 1 TABLET IN THE EVENING. TAKE BEFORE MEALS 180 tablet 025 2024 Discontinued(R eorder) PARoxetine (Paxil) 20 MG tabletIndications :Moderate episode of recurrent major depressive disorder (HCC) Take 1 tablet (20 mg) by mouth in the morning. 90 tablet 025 2024 Discontinued(R eorder) traZODone (Desyrel) 100 MG tabletIndications :Psychophysiologi siobhan insomnia TAKE 1 AND 1/2 TABLETS(150 MG) BY MOUTH AT BEDTIME 135 tablet 025 2024 Discontinued(R eorder) bumetanide (Bumex) 0.5 MG tabletIndications :Chronic diastolic congestive heart failure (HCC) Take 1 tablet (0.5 mg) by mouth Daily Take 1 tablet (0.5 mg) by mouth Daily 90 tablet 025 2024 Discontinued(R eorder) losartan-hydroCHL OROthiazide (Hyzaar) 100-25 MG tabletIndications :Primary hypertension Take 1 tablet by mouth in the morning. 90 tablet 025 2024 Discontinued(R eorder) Blood Glucose Monitoring Suppl (ONE TOUCH ULTRA 2) w/Device kit 1 each in the morning and 1 each in the evening. Take before meals. 2024 Discontinued(R eorder) Glucose Blood (ONETOUCH ULTRA BLUE TEST ) 1 each by In Vitro route in the morning and 1 each before bedtime. 2024 Discontinued(R eorder) Lancets 33G misc 1 each in the morning and 1 each before bedtime. 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 Options for quitting smoking include: cold turkey, hypnosis, acupuncture, nicotine replacement meds (gum, lozenges, and patches), Buproprion, and Varenicline. At this time pt is encouraged to evaluate their goals for wanting to quit smoking, and reach out to provider when ready to start this process Hypomagnesemia 11/02/2024 Chronic gout of multiple sites 10/05/2024 Assessment & Plan (11/02/2024 7:13 AM EDT): Allopurinol Check labs yearly and prn dose changes or changes in sxs Degeneration of lumbar intervertebral disc 07/12 Depressive [...] mg. Psychophysiological insomnia 07/13/2023 Assessment & Plan (11/02/2024 7:12 AM EDT): Trazodone for sleep Assessment & Plan (07/13/2023 1:32 PM EDT): [...] use of insulin 04/13/2023 Assessment & Plan (11/02/2024 7:16 AM EDT): Check blood sugars daily, notify if <70 or >200. Take medications (pills or insulin) as directed. Monitor for s/s of hypoglycemia (sweaty, dizziness, nausea, vomiting, or shakiness). Watch for increase in thirst, urination, or appetite. Inspect feet frequently monitoring for open wounds , and also recommend yearly eye exam. Pt should attempt to remain as physically active as chronic conditions allow, as well as trying to follow a diet low in carbohydrates, and simple sugars. Current meds: arb/hydrochlorothiazide, insulin, glipizide, statin and asa A1c: 10.4 % on 10/28/24 Assessment & Plan (12/14/2023 11:00 AM EDT): [...] noted. Mixed hyperlipidemia 04/13/2023 Assessment & Plan (11/02/2024 7:17 AM EDT): On statin therapy Check labs yearly and prn dose changes Assessment & Plan (12/14/2023 11:00 AM EDT): Continue Atorvastatin as directed. Assessment & Plan (07/13/2023 1:25 PM EDT): On Lipitor 40 mg Check Lipid panel. Assessment & Plan (04/13/2023 9:33 AM EST): On Lipitor 40 mg Check Lipid panel. Primary hypertension 04/13/2023 Assessment & Plan (11/02/2024 7:12 AM EDT): Please check blood pressure daily and record DASH diet Limit caffeine Take medication as directed Contact office if chest pain, pressure, dizziness, shortness of breath, swelling legs Recommend slow position changes Current meds: losartan/hydrochlorothiazide, b shirley Assessment & Plan (12/14/2023 10:58 AM EDT): Continue Losartan-hydrochlorothiazide, Metoprolol, Bumex, and Aspirin 81mg Sees Cardiology- In [place] Bring BP log to next visit Assessment [...] elevated BP. RLS (restless legs syndrome) 04/13/2023 Assessment & Plan (11/02/2024 7:11 AM EDT): mirapex Diabetic polyneuropathy asso ciated with type 2 diabetes mellitus 04/13/2023 Assessment & Plan (11/02/2024 7:10 AM EDT): Freq foot exams Proper fitting shoes Good blood glucose control Assessment & Plan (12/14/2023 10:56 AM EDT): Continue Gabapentin as directed DM foot exam completed; Advised to wear protective shoes when indoors and outdoors Referral sent to podiatry COPD (chronic obstructive pulmonary disease) wit h emphysema 04/13/2023 Assessment & Plan (11/02/2024 7:11 AM EDT): Current meds: trelegy Assessment & Plan (12/14/2023 10:57 AM EDT): [...] congestive heart failure 04/13 Assessment & Plan (11/02/2024 7:12 AM EDT): Losartan/hydrochlorothiazide, b shirley, diuretics Assessment & Plan (12/14/2023 10:58 AM EDT): Continue Losartan-hydrochlorothiazide, Metoprolol, Bumex, and Aspirin 81mg Sees Cardiology- In [place] Bring BP log to next visit Chronic bilateral low back pain with right-sided sciatica 04/13/2023 Major depressive disorder in full remission 04/03 Encounter for screening for malignant neoplasm o f colon 04/13/2023 Assessment & Plan (04/13/2023 9:34 AM EST): Colonoscopy over 10 years ago Will order Cologuard Encounter for screening mamm ogram for malignant neoplasm of breast 04/13/2023 Assessment & Plan (04/13/2023 9:34 AM EST): Order Mammogram Encounter for Medicare annual wellness exam 04/03 Assessment & Plan (11/02/2024 12:52 PM EDT): Reviewed Ht/Wt/BMI Recommend eye exam yearly Recommend dental exams twice a year Balance work/leisure activities Exercises is recommended most days of the week (appropriate as chronic conditions allow) Follow up yearly and prn; Assessment & Plan (04/13/2023 9:35 AM EST): [...] 04/08/2023 Muscle spasm 04/08/2023 Lumbar radiculopathy 04/08/2023 Resolved Problems Problem Noted Date Diagnosed Date Resolved Date Tobacco dependency 04/13/2023 Assessment & Plan (04/13/2023 [...] agreeable to try and use nicotine patches. Encounters Date Type Department Care Team Description 11/14/2024 Abstract [facility] [address] [place] [address] Coni Osorio NP 11/02/2024 10:00 AM EDT Office Visit [facility] [address] [place] [address] Coni Osorio NP Encounter for Medicare annual wellness exam (Primary Dx); Diabetic polyneuropathy associated with type 2 diabetes mellitus (HCC); Pulmonary emphysema, unspecified emphysema type (HCC); RLS (restless legs syndrome); Primary hypertension ; Psychophysiological insomnia; Chronic diastolic congestive heart failure (HCC); Chronic gout of multiple sites, unspecified cause; Chronic kidney disease, stage 3a (CMS-HCC); Secondary hyperparathyroidism of renal origin (HCC); Type 2 diabetes mellitus with stage 3a chronic kidney disease, with long-term current use of insulin (HCC); Mixed hyperlipidemia ; Cigarette nicotine dependence without complication; Encounter for screening mammogram for malignant neoplasm of breast; Moderate episode of recurrent major depressive disorder (HCC); Hypomagnesemia 11/02/2024 Bamboo flowsheet [facility] [address] [place] [address] Coni Osorio NP 10/30/2024 Refill [facility] [address] [place] [place] [address] Gaetano Andrea MD Psychophysiological insomnia 10/28/2024 Clinisync Result Encounter [facility] Unsolicited Coni Osorio NP 10/21/2024 Refill [facility] [address] [place] [phone] Gaetano Andrea MD Type 2 diabetes mellitus with stage 3a chronic kidney disease, with long-term current use of insulin (HCC); Chronic diastolic congestive heart failure (HCC); Primary hypertension 10/05/2024 Telephone [facility] [address] [place] [phone] Coni Osorio, HAND BOOTMAKER 10/05/2024 Refill [facility] [address] [place] [phone] Coni Osorio, DENA Primary hypertension (Primary Dx); Moderate episode of recurrent major depressive disorder (HCC); Chronic diastolic congestive heart failure (HCC); Type 2 diabetes mellitus with stage 3a chronic kidney disease, with long-term current use of insulin (HCC); Mixed hyperlipidemia ; Tobacco dependency; Chronic gout of multiple sites, unspecified cause 10/04/2024 Telephone [facility] [address] [place] [phone] Coni Osorio, HAND BOOTMAKER 10/02/2024 Refill [facility] [address] [place] [address] Gaetano Andrea MD Type 2 diabetes [...] Child Alive Father Sara Couch Mother Radha Otto Social History Tobacco Use Types Packs/Day Years [...] week 04/09/2023 How often do you attend adventist or mormonism serv ices? Never 04/09/2023 Do you belong to any clubs o r organizations such as adventist groups, unions, fraternal or athletic groups, or [...] Date Recorded Patient Health Questionnaire-2 Score 2 11/02/2024 [facility] [...] Sign Reading Time Taken Comments Blood Pressure 144/92 11/02/2024 10:07 AM EDT Pulse 97 11/02/2024 10:07 AM EDT Temperature 36.9 C (98.5 F) 11/02/2024 10:07 AM EDT Respiratory Rate 20 11/02/2024 10:07 AM EDT Oxygen Saturation 92% 11/02/2024 10:07 AM EDT Inhaled Oxygen Concentration - - Weight 84 kg (185 lb 3.2 oz) 11/02/2024 10:07 AM EDT Height 160 cm (5' 3 ) 01/06/2024 3:12 PM EDT Body Mass Index 32.81 01/06/2024 3:12 PM EDT Plan of Treatment Upcoming Encounters Date Type Department Care Team (Late st Contact Info) Description 01/10/2025 8:30 AM EDT Office Visit [facility] [address] [place] [address] Coni Osorio NP [address] [place] [address] 11/06/2025 10:30 AM EDT Office Visit [facility] [address] [place] [address] Coni Osorio NP [address] [place] [address] Health Maintenance Due Date Last Done Comments CT Colonography 1955 Colonoscopy 1955 FIT 1955 FOBT 1955 Lung Cancer Screening Shared Decision Making 1955 Sigmoidoscopy 1955 Mammogram 07/02/2024 07/03/2023 Influenza Vaccine (#1) 2025 02/03/2020, 2016 Diabetes: Hemoglobin A1C 01/28/2025 10/28/2024, 07/02 Diabetes: Retinopathy Screening 05/08/2025 , 05/04/2022 Diabetes: Urine Protein Screening 10/28/2025 025, 09/12/2023 Medicare Annual Wellness (AWV) 11/02/2025 0 11/02/2024, 04/13/2023, 04/13/2023 Colorectal Cancer Screening 05/19/2026 FIT-DNA 05/19/2026 05/19/2023, 05/08/2023 Pneumococcal Vaccine: 65+ Years Completed 10/20/2020, 05/04/2020, 02/09/2019 Procedures Procedure Name Priority Date/Time Associated Diagnosis Comments ALL LIPID PROFILE (FASTING) Routine 10/28/2024 7:40 AM EDT ALL URIC ACID Routine 10/28/2024 7:40 AM EDT [facility] CMP (CMP) (FOR REMOTE [facility] USE) Routine 10/28/2024 7:40 AM EDT MLR HEMOGLOBIN A1C Routine 10/28/2024 7: 40 AM EDT ALL CBC WITH AUTO DIFF Routine 10/28/2024 7:40 AM EDT TBH UA (CLEAN/CATCH) MICROSCOPIC IF INDICATE Routine 10/28/2024 7:29 AM EDT TBH MICROALB CREAT RATIO RANDOM Routine 10/28/2024 7:29 AM EDT LAB COLOGUARD COLON CANCER SCREEN Routine 05/19/2023 10:23 AM EST from Last 3 Months or Most Recently Relevant to Health Maintenance Results * (ABNORMAL) MLR HEMOGLOBIN A1C (10/28/2024 7:40 AM EDT) GLYCOHEMOGLOBIN A1C 10.4(H) 4.5 - 6.2 % TB Comment: ADA RECOMMENDED LIMIT 4.0 - 6.0 ADA THERAPEUTIC TARGET < 7.0 ACTION SUGGESTED > 7.0 ESTIMATED AVERAGE GLUCOSE 252 mg/dL TB 10/28/2024 7:40 AM EDT 10/28/2024 7:40 AM EDT Narrative [facility] - 10/28/2024 8:10 AM EDT us Coni Osorio HAND BOOTMAKER CLIN[facility] Final Result [facility] * (ABNORMAL) [facility] CMP (CMP) (FOR REMOTE [facility] USE) (10/28/2024 7:40 AM EDT) Pathologist [facility] SODIUM 139 136 - 145 mmol/L TBH POTASSIUM 4.4 3.5 - 5.1 mmol/L TBH CHLORIDE 103 98 - 107 mmol/L TBH CARBON DIOXIDE 26.0 21.0 - 32.0 mmol/L TBH ANION GAP 14.4 TBH GLUCOSE 250(H) 74 - 106 mg/dL TBH BLOOD UREA NITROGEN 27.0(H) 7.0 - 18.0 mg/dL TBH CREATININE 1.29(H) 0.55 - 1.02 mg/dL TBH TBH EGFR-AF BARBADIAN 50(L) >=60 mL/min/1. 73m 2 TBH TBH EGFR-NON AF BARBADIAN 41(L) >=60 mL/min/1. 73m 2 TBH BUN CREATININE RATIO 20.9 TBH CALCIUM 9.5 8.5 - 10.1 mg/dL TBH BILIRUBIN TOTAL 0.5 0.2 - 1.0 mg/dL TBH ASPARTATE AMINO TRANSFERASE 14(L) 15 - 37 U/L TBH ALANINE AMINOTRANSFERASE 29 14 - 59 U/L TBH ALKALINE PHOSPHATASE 119(H) 46 - 116 U/L TBH TOTAL PROTEIN 7.0 6.4 - 8.2 g/dL TBH ALBUMIN LEVEL 3.4 3.4 - 5.0 g/dL TBH GLOBULIN 3.6 g/dL TBH ALBUMIN GLOBULIN RATIO 0.9 TBH 10/28/2024 7:40 AM EDT 10/28/2024 7:40 AM EDT Narrative CLINISYNC - 10/28/2024 9:43 AM EDT us Coni Osorio NP CLINIS[facility] Final Result [facility] * (ABNORMAL) ALL URIC ACID (10/28/2024 7:40 AM EDT) URIC ACID 7.4(H) 2.6 - 6.0 mg/dL TB 10/28/2024 7:40 AM EDT 10/28/2024 7:40 AM EDT Narrative [facility]IN[facility] - 10/28/2024 9:43 AM EDT Coni Osorio NP [facility] Final Result [facility] * (ABNORMAL) ALL LIPID PROFILE (FASTING) (10/28/2024 7:40 AM EDT) TRIGLYCERIDES 309(H) <=150 mg/dL TBH CHOLESTEROL 191 <=200 mg/dL TB HDL CHOLESTEROL 39(L) 40 - 60 mg/dL TB Comment: > or =60 mg/dl - LOW CARDIOVASCULAR RISK <40 mg/dl - HIGH CARDIOVASCULAR RISK LDL CHOLESTEROL CALCULATED 91.0 mg/dL [facility] Comment: <100 mg/dl OPTIMAL 100-129 mg/dl NEAR OR ABOVE OPTIMAL 130-159 mg/dl BORDERLINE HIGH 160-189 mg/dl HIGH >190 mg/dl VERY HIGH VLDL CHOLESTEROL 61.8 mg/dL TB CHOL HDL RATIO 4.9 TB Comment: 3.3 - 4.4 LOW RISK 4.4 - 7.1 AVERAGE RISK 7.1 - 11.0 MODERATE RISK >11.0 HIGH RISK 10/28/2024 7:40 AM EDT 10/28/2024 7:40 AM EDT Narrative CLINISYNC - 10/28/2024 9:43 AM EDT us Coni Osorio NP [facility] Final Result [facility] * (ABNORMAL) ALL CBC WITH AUTO DIFF (10/28/2024 7:40 AM EDT) TB WBC 11.5(H) 4.0 - 11.0 10 3/uL TBH TBH RBC 5.59(H) 4.20 - 5.40 10 6/uL TBH TB HGB 17.0(H) 12.0 - 16.0 g/dL TBH TBH HCT 49.2(H) 36.0 - 48.0 % TBH TBH MCV 88.0 81.0 - 99.0 fL TBH TBH MCH 30.4 26.7 - 34.0 pg TBH TBH MCHC 34.6 29.9 - 35.2 g/dL TBH TBH RDW 14.3 11.0 - 15.0 % TBH TBH PLT 255 150 - 450 10 3/uL TBH TBH MPV 10.9 9.5 - 13.5 fL TBH NEUTROPHILS PERCENT AUTO 69.5 43.0 - 75.0 % TBH LYMPHOCYTES PERCENT AUTO 20.6 20.5 - 60.0 % TBH MONOCYTES PERCENT AUTO 5.7 1.7 - 12.0 % TBH TBH EO % 2.0 0.9 - 7.0 % TBH BASOPHILS PERCENT AUTO 1.3 0.2 - 2.0 % TBH IMMATURE GRANULOCYTES PCT AUTO 0.9(H) 0.0 - 0.5 % TBH NEUTROPHILS ABSOLUTE AUTO 8.0(H) 1.4 - 6.5 10 3/uL TBH LYMPHOCYTES ABSOLUTE AUTO 2.4 1.2 - 3.8 10 3/uL TBH MONOCYTES ABSOLUTE AUTO 0.7 0.3 - 0.8 10 3/uL TBH TBH EO # 0.2 0.0 - 0.7 10 3/uL TBH BASOPHILS ABSOLUTE AUTO 0.2(H) 0.0 - 0.1 10 3/uL TBH IMMATURE GRANULOCYTES ABS AUTO 0.10(H) 0.00 - 0.03 10 3/uL TBH 10/28/2024 7:40 AM EDT 10/28/2024 7:40 AM EDT Narrative [facility] - 10/28/2024 8:05 AM EDT us Coni Osorio NP CLINIS[facility] Final Result [facility] * (ABNORMAL) TBH UA (CLEAN/CATCH) MICROSCOPIC IF INDICATE (10/28/2024 7:29 AM EDT) COLOR URINE LT. YELLOW YELLOW TBH CLARITY URINE CLEAR CLEAR TBH SPECIFIC GRAVITY URINE 1.020 1.005 - 1.025 TBH PH URINE 6.0 5.0 - 9.0 TBH PROTEIN URINE 100(A) NEG/TRACE mg/dL TBH GLUCOSE URINE UA NEGATIVE NEGATIVE mg/dL TBH BILIRUBIN URINE NEGATIVE NEGATIVE TBH KETONES URINE NEGATIVE NEGATIVE mg/dL TBH BLOOD URINE NEGATIVE NEGATIVE TBH NITRITE URINE NEGATIVE NEGATIVE TBH UROBILINOGEN URINE 0.2 0.2 - 1.0 EU/dL TBH LEUKOCYTE ESTERASE URINE NEGATIVE NEGATIVE TBH URINE MICROSCOPIC INDICATED NO TBH 10/28/2024 7:29 AM EDT 10/28/2024 7:40 AM EDT Narrative CLINISYNC - 10/28/2024 8:49 AM EDT Coni Osorio NP CLINISYNC Final Result Performing Organization Address City/[facility] Co de Phone Number CL[facility]SD TB * (ABNORMAL) TBH MICROALB CREAT RATIO RANDOM (10/28/2024 7:29 AM EDT) MICROALBUMIN URINE RANDOM 29.4 <=30.0 mg/dL TBH CREATININE URINE RANDOM 92.54 20.00 - 300.00 mg/dL TB MICROALBUM CREATININE RATIO UR 317.7(H) 0.0 - 29.9 mg/g TBH Comment: NO MICROALBUMINURIA 0-29 MG/G CLINICAL MICROALBUMINURIA 30-300 MG/G MACROALBUMINURIA >300 MG/G 10/28/2024 7:29 AM EDT 10/28/2024 7:40 AM EDT Narrative CLINISYNC - 10/28/2024 8:16 AM EDT us Coin Osorio NP CLINISYNC Final Result [facility] TB * Cologuard?? colon cancer screening (05/19/2023 10:23 AM EST) Stool us Shaikh Jeison [facility] MOLECULAR DIAGNOSTICS ORDER DEIRDRE Final Result from Last 3 Months or Most Recently Relevant to Health Maintenance Insurance [facility] MEDICARE ADVANTAGE Care Teams Ranch Manager Relationship Specialty Start Date End Date Gaetano Andrea MD [address] [place] [phone] PCP - General Family Medicine 04/18/24 Marilee Carver NP [address] [place] [address] Nurse Practitioner Family Medicine 04/18/24
--- OUTSIDE RECORDS SUMMARY | 2024-11-23 09:08 | XMS_ITS | Encounter Summary ---
Author Organization [facility] Address [address] [place] [address] Care Team Providers Care Forensic Psychologist Name Role Phone Gaetano Andrea MD Primary Care Provider Marilee Carver SALES AND CATERING COORDINATOR Unavailable [phone] Encounter Details Date Type Department Care Team (Late st Contact Info) Description 11/14/2024 Abstract [facility] [address] [place] [address] Coni Osorio NP [address] [place] [id number] Social History Tobacco Use Types Packs/Day Years [...] week 04/09/2023 How often do you attend bahai or church serv ices? Never 04/09/2023 Do you belong to any clubs o r organizations such as bahai groups, unions, fraternal or athletic groups, or [...] Recorded Patient Health Questionnaire-2 Score 2 11/02/2024 [facility] [...] place to sleep or slept in a group home (including now)? No 04/09/2023 Comments Unknown [...] [facility] [address] [place] [address] Coni Osorio NP [address] [place] [phone] 11/06/2025 10:30 AM EDT Office Visit [facility] [address] [place] [address] Coni Osorio NP [address] [place] [phone] documented as of this encounter Visit Diagnoses Not on filedocumented in this encounter Additional Health Concerns Assessment Noted Time PHQ-9 Depression Total Score: 6 11/03/19 25 10:22 AM EDT documented as of this encounter Care Teams Forensic Psychologist Relationship Specialty Start Date End Date Gaetano Andrea MD [address] [place] [phone] PCP - General Family Medicine 04/18/24 Marilee Carver NP [address] [place] [address] Nurse Practitioner Family Medicine 04/18/24 documented as of this encounter
--- OUTSIDE RECORDS SUMMARY | 2024-11-23 09:08 | XMS_ITS | Clinical Summary ---
Author Organization [facility] Address [address] [place] [address] Phone Care Team Providers Care Power Sewing Machine Operator Name Role Phone Shaikh ALO Mchugh Primary Care Provider [phone] Social History Tobacco Use Types Packs/Day Years [...] FIT 1955 Lipid Panel 1955 Sigmoidoscopy 1955 Yearly Adult Physical 1955 Hepatitis C Screening 11/17/1973 DTaP/Tdap/Td Vaccines (1 - Tdap) 11/17/1977 Mammogram 1995 Pneumococcal Vaccine (1 of 1 - PCV) 11/17/2005 Zoster Vaccines (1 of 2) 11/17/2005 COVID-19 Vaccine (1 - 2023-2 5 season) 2024 Influenza Vaccine (#1) 2025 RSV High Risk: (Elderly (60+ ) or Population) (1 - 1-dose 75+ series) 11/17/2030 HIB Vaccines Aged Out No longer eligi ble based on patient's age to complete this topic HPV Vaccines Aged Out No longer eligi ble based on patient's age to complete this topic Hepatitis A Vaccines Aged Out No long [...] age to complete this topic Care Teams Power Sewing Machine Operator Relationship Specialty Start Date End Date Shaikh Mchugh MD PCP - General 05/04/20
--- OUTSIDE RECORDS SUMMARY | 2024-11-23 09:08 | XMS_ITS | Encounter Summary ---
Author Organization [facility] Address [address] [place] [address] Phone Care Team Providers Care Boat Joiner Name Role Phone Shaikh ALO Mchugh Primary Care Provider [phone] Encounter Details Date Type Department Care Team (Late st Contact Info) Description 11/29/2021 Orders Only [facility] [address] [place] [address] Conversion, Onbase Social History Tobacco Use Types [...] documented as of this encounter Care Teams Boat Joiner Relationship Specialty Start Date End Date Shaikh Mchugh MD PCP - General 05/04/20 documented as of this encounter
--- OUTSIDE RECORDS SUMMARY | 2024-11-23 09:08 | XMS_ITS | Clinical Summary ---
Author Organization [employer] [facility] Address [id number] [place] [address] Care Team Providers Care Supervisor Press Room Name Role Phone Unavailable Primary Care Provider [...]
--- OUTSIDE RECORDS SUMMARY | 2024-11-23 09:08 | XMS_ITS | Encounter Summary ---
Author Organization [facility] Address [address] [place] [address] Care Team Providers Care Bridge Gang Worker Name Role Phone Shaikh ALO Mchugh Primary Care Provider [phone] Shaikh ALO Mchugh Primary Care Provider [phone] Gaetano Andrea MD Primary Care Provider Marilee Carvre COMPLEX DIRECTOR Unavailable [phone] Encounter Details Date Type Department Care Team (Late st Contact Info) Description 06/15/2023 Orders Only [facility] [address] [place] [address] Shaikh Mchugh MD [address] [place] [address] Mixed hyperlipidemia (Primary Dx) Social History Tobacco [...] week 04/09/2023 How often do you attend zoroastrianism or anabaptist serv ices? Never 04/09/2023 Do you belong to any clubs o r organizations such as zoroastrianism groups, unions, fraternal or athletic groups, or [...] Recorded Patient Health Questionnaire-2 Score 0 04/13/2023 [facility] - Occupational [...] place to sleep or slept in a fci (including now)? No 04/09/2023 Comments Unknown Sex [...] Visit [facility] [address] [place] [address] Coni Osorio NP [address] [place] [phone] 11/06/2025 10:30 AM EDT Office Visit [facility] [address] [place] [phone] Coni Osorio NP [address] [place] [phone] documented as of this encounter Visit Diagnoses Diagnosis Mixed hyperlipidemia- Primary Mixed hyperlipidemia documented in this encounter Care Teams Bridge Gang Worker Relationship Specialty Start Date End Date Shaikh Mchugh MD PCP - General Internal Medicine 10/31/22 07/02/23 Shaikh Mchugh MD [address] [place] [address] PCP - General Internal Medicine 07/03/23 04/17/24 Gaetano Andrea MD [address] [place] [address] PCP - General Family Medicine 04/18/24 Marilee Carver NP [address] [place] [phone] Nurse Practitioner Family Medicine 04/18/24 documented as of this encounter
--- OUTSIDE RECORDS SUMMARY | 2024-11-23 09:08 | XMS_ITS | Encounter Summary ---
Author Organization [facility] Address [address] [place] [address] Care Team Providers Care Assurance Associate Name Role Phone Shaikh ALO Mchugh Primary Care Provider Gaetano Andrea MD Primary Care Provider [phone] Marilee Carver CCO Unavailable [phone] Encounter Details Date Type Department Care Team (Late st Contact Info) Description 08/16/2023 Orders Only [facility] [address] [place] [address] Shaikh Mchugh MD [address] [place] [address] Type 2 diabetes mellitus with stage 3a [...] week 04/09/2023 How often do you attend amish or tenriism serv ices? Never 04/09/2023 Do you belong to any clubs o r organizations such as amish groups, unions, fraternal or athletic groups, or [...] Recorded Patient Health Questionnaire-2 Score 2 07/13/2023 [facility] - [facility] Stress Questionnaire Answer [...] place to sleep or slept in a [place] (including now)? No 04/09/2023 Comments Unknown Sex [...] Visit [facility] [address] [place] [address] Coni Osorio NP [address] [place] [phone] 11/06/2025 10:30 AM EDT Office Visit [facility] [address] [place] [address] Coni Osorio NP [address] [place] [phone] documented as of this encounter Visit Diagnoses Diagnosis Type 2 diabetes mellitus with stage 3a chronic kidney disease, with long-term current use of insulin (HCC)- Primary documented in this encounter Care Teams Assurance Associate Relationship Specialty Start Date End Date Shaikh Mchugh MD [address] [place] [address] PCP - General Internal Medicine 07/03/23 04/17/24 Gaetano Andrea MD [address] [place] [address] PCP - General Family Medicine 04/18/24 Marilee Carver NP [address] [place] [address] Nurse Practitioner Family Medicine 04/18/24 documented as of this encounter
--- OUTSIDE RECORDS SUMMARY | 2024-11-23 09:08 | XMS_ITS | Encounter Summary ---
Author Organization [facility] Address [address] [place] [address] Care Team Providers Care Thermometer Maker Name Role Phone Gaetano Andrea MD Primary Care Provider [phone] Marilee Carver REAL ESTATE LEGAL ASSISTANT Unavailable [phone] Encounter Details Date Type Department Care Team (Late st Contact Info) Description 05/11/2024 Orders Only [facility] [address] [place] [address] [place] [address] [place] [address] Social History Tobacco Use Types [...] week 04/09/2023 How often do you attend buddhist or pentecostal serv ices? Never 04/09/2023 Do you belong to any clubs o r organizations such as buddhist groups, unions, fraternal or athletic groups, or [...] Recorded Patient Health Questionnaire-2 Score 0 12/14/2023 [facility] - Occupational Stress [...] place to sleep or slept in a intermediate (including now)? No 04/09/2023 Comments Unknown Sex [...] EDT Office Visit [facility] [address] [place] [address] Coni Osorio NP [address] [place] [address] 11/06/2025 10:30 AM EDT Office Visit [facility] [address] [place] [address] Coni Osorio NP [address] [place] [phone] documented as of this encounter Procedures Procedure Name Priority Date/Time Associated Diagnosis Comments DIABETES EYE EXAM Routine 05/11/2024 11:24 AM EST documented in this encounter Results * Diabetes Eye Exam (05/11/2024 11:24 AM EST) us Ean Garcia MD HEALTH MAINTENANCE Final Resul t documented in this encounter Visit Diagnoses Not on filedocumented in this encounter Care Teams Thermometer Maker Relationship Specialty Start Date End Date Gaetano Andrea MD [address] [place] [phone] PCP - General Family Medicine 04/18/24 Marilee Carver NP [address] [place] [address] Nurse Practitioner Family Medicine 04/18/24 documented as of this encounter
--- NOTE | 2024-11-23 09:10 | CT_ITS ---
The [address] [address] Patient Name: ZAYRA IBARRA MRN: [id number] date: 1955 Sex: F Assigned Patient Location: CT Current Patient Location: CT Accession/Order Number: [id number] Exam Date: 11/23/2024 10:02 Report Date: 11/23/2024 10:09 At the request of: MEGHAN SEVERINO NP Procedure: CT lung screening low-dose CT CHEST WITHOUT CONTRAST, LOW DOSE SCREENING: CLINICAL DATA: A 69-year old current smoker COMPARISON: CT chest 11/20/2021 TECHNIQUE: Noncontrast axial CT scan images of the chest were obtained under the low dose screening CT protocol. Coronal and sagittal reconstructed images were also submitted. FINDINGS: Mediastinum : Suboptimal evaluation due to low-dose technique. Thoracic aorta appears normal in caliber. Pulmonary trunk appears nondilated. No pericardial effusion. No lymphadenopathy. The esophagus is grossly unremarkable. Lungs: No focal consolidation, pneumothorax or pleural effusion. Trachea and distal airways appear patent. Tree-in-bud nodularity involving the right lung grossly unchanged from the prior study likely bronchiolitis related to smoking. No suspicious noncalcified pulmonary nodule or mass. Upper abdomen: No acute findings. Mild thickening right adrenal gland. Bony thorax and chest wall: Soft tissues surrounding the chest wall demonstrate no acute findings. Osseous structures demonstrate degenerative change. CT/CT lung screening low-dose IMPRESSION: NO SUSPICIOUS PULMONARY NODULE OR MASS. LUNG - RADS Version 1.0 Assessment: Category 1, Negative (No nodules and definitely benign nodules). Management: Continue annual lung screening with LDCT in 12 months. Impression dictated by: Stevan Daniels Jr., D.O. 11/23/2024 10:09 AM Dictation Location: [place] [address] Electronically authenticated by: [id number] Date: 11/23/2024 10:09
== END 2024-11-23 09:06 | disposition home or self-care (01) ==
LOC: CT 09:06
PROVIDERS: PCP Nurse Practitioner; Visit Provider Nurse Practitioner
DX: F17.210 Nicotine dependence, cigarettes, uncomplicated (principal)
CPT/HCPCS: 71271

== ENCOUNTER 2025-01-05 09:17 | Outpatient (OUT) | payer MEDICARE, SELFPAY ==
--- NOTE | 2025-01-05 09:03 | P.CN_ITS ---
Consult Note: HPI Data of Consult Patient: known to practice within the last 3 years Requesting Physician: Renate Flores NP Primary Care Provider: Coni Osorio NP Consult Narrative Reason for consult: f/u Narrative: Vidhya Pillai 69 year old female presents for evaluation of chronic back pain and BLE pain secondary to lumbar spondylosis, lumbar stenosis with NC, and painful diabetic polyneuropathy. Pain today 4/10 increasing with standing, walking, twisting, pushing, pulling, and activity. Pt finds mild benefit to gabapentin 900mg QID and percocet 5-325mg BID PRN, without side effects. FERNANDEZ 60%. notes improvement in pain with increased gabapentin, denies side effects. now established with new pcp, pending referral to neurology for further evaluation. cc:: CC: Renate Flores NP Review of Systems ROS Musculoskeletal Reports: back pain and extremity pain PFSH [facility] Medical History Osteoarthritis ?M19.90 - Unspecified osteoarthritis, unspecified site (ICD-10) Low back pain ?M54.50 - Low back pain, unspecified (ICD-10) Numbness and tingling ?R20.0 - Anesthesia of skin (ICD-10) ?R20.2 - Paresthesia of skin (ICD-10) Diabetes ?E11.9 - Type 2 diabetes mellitus without complications (ICD-10) Smoker ?F17.200 - Nicotine dependence, unspecified, uncomplicated (ICD-10) COPD (chronic obstructive pulmonary disease) ?J44.9 - Chronic obstructive pulmonary disease, unspecified (ICD-10) Angina at rest ?I20.8 - Other forms of angina pectoris (ICD-10) Hypertension ?I10 - Essential (primary) hypertension (ICD-10) Surgical History History of cholecystectomy ?Z90.49 - Acquired absence of other specified parts of digestive tract (ICD- 10) S/P dilatation and curettage ?Z98.890 - Other specified postprocedural states (ICD-10) H/O cardiac catheterization ?Z98.890 - Other specified postprocedural states (ICD-10) Meds Home Medications and Allergies Home Medications ?Medication ?Instructions ?Recorded ?Confirmed ?Type glipizide 10 mg tablet 10 mg PO BID 10/16/22 History insulin NPH isoph U-100 human 100 20 unit subcut BID 0 10/16/22 10/05/23 History unit/mL subcutaneous suspension (Novolin N NPH U-100 Insulin isophane) metoprolol tartrate 50 mg tablet 50 mg PO BID 10/16/22 10/05/23 History paroxetine HCl 10 mg tablet 10 mg PO DAILY 10/16/22 History pramipexole 0.25 mg tablet 0.25 mg PO DAILY 10/16/22 0 10/05/23 History (Mirapex) trazodone 150 mg tablet 150 mg PO BEDTIME 10/16/22 0 10/05/23 History atorvastatin 40 mg tablet (Lipitor) 40 mg PO DAILY 10/05/23 History bumetanide 0.5 mg tablet 0.5 mg PO DAILY 04/16/2307/25 History magnesium oxide 400 mg (241.3 mg mg 06/01/23 History magnesium) tablet allopurinol 200 mg tablet 200 mg PO DAILY 09/21/2307/25 History naloxone 4 mg/actuation nasal 4 mg intranasal Q2M #2 e a 03/10/24 Rx spray (Narcan) gabapentin 300 mg capsule 900 mg (3 x 300 mg) PO QID # 360 10/13/24 Rx caps oxycodone-acetaminophen 5 mg-325 1 tab PO BID PRN pain #60 tabs 10/13/24 Rx mg tablet (Percocet) gabapentin 300 mg capsule See Rx Instructions .Route 0 11/14/24 Rx .COMPLEX #360 caps oxycodone-acetaminophen 5 mg-325 1 tab PO BID PRN pain #60 tabs 11/14/24 Rx mg tablet (Percocet) gabapentin 300 mg capsule See Rx Instructions .Route 0 12/15/24 Rx .COMPLEX #360 caps oxycodone-acetaminophen 5 mg-325 1 tab PO BID PRN pain #60 tabs 12/15/24 Rx mg tablet (Percocet) Allergies Allergy/AdvReac Type Severity Reaction Status Date / Time prednisone Allergy Intermediate Rash Verified 10/05/23 08:00 Exam Constitutional Documenting provider has reviewed patient's vital signs: yes Common normals: no apparent distress, oriented x3, healthy appearing, alert and well nourished General appearance: cooperative Orientation/consciousness: Yes awake, Yes oriented to person, Yes oriented to place and Yes oriented to time HENMT Common normals: normocephalic, hearing grossly normal bilaterally and moist oral mucous membranes Head and scalp: normocephalic Eye Common normals: PERRL Pupil: PERRL Neck & C-Spine Common normals: full ROM General: normal visual inspection Chest Common normals: inspection of chest normal Respiratory Common normals: normal respiratory effort, no retractions and no use of accessory muscles Effort & inspection: able to speak in complete sentences and symmetric chest movement Back & Pelvis Lumbar spine/lower back: ROM limited, pain with ROM and straight leg raise negative bilaterally Sacroiliac joints: SI joints normal Other: bilateral facet loading mild on left strength 4/5 in BLE increased pain with standing and walking, improved with sitting and forward flexion Extremity Common normals: normal to inspection and full ROM Neuro Common normals: oriented x3 Sensorium/orientation: alert Motor exam: strength 5/5 throughout and no movement abnormalities noted Psych Common normals: mental status grossly normal, thought process normal, cooperative, affect normal, speech normal and activity/motor behavior normal Speech: normal speech Thought process: normal thought process Results Imaging Lumbar MRI: Attestation: I have reviewed the pertinent imaging results. Radiologist's impression: Spondylotic Changes: Multilevel spondylotic changes include varying degrees of intervertebral disc height loss, disc desiccation, osteophytic ridging, and facet/ligamentum flavum hypertrophy. These have mildly progressed since 10/12/2020. T12-L1: No disc bulge or herniation. No high-grade spinal canal or foraminal narrowing. L1-L2: No disc bulge or herniation. No high-grade spinal canal or foraminal narrowing. L2-L3: No disc bulge or herniation. No high-grade spinal canal or foraminal narrowing. L3-L4: No disc bulge or herniation. No high-grade spinal canal narrowing. Mild bilateral foraminal narrowing. Mild bilateral facet/ligamentum flavum hypertrophy. L4-L5: Slight disc bulge minimally indents the ventral thecal sac. No high-grade spinal canal narrowing. [id number]-si-[id number] bilateral foraminal narrowing. Advanced bilateral facet/ligamentum flavum hypertrophy. L5-S1: No disc bulge or herniation. Significant intervertebral disc height loss. No high-grade spinal canal narrowing. Mild right and moderate left foraminal narrowing. Mild bilateral facet hypertrophy. Additional Findings Additional findings: If on a controlled substance or opioids, I have checked an [place]AR[place] report on this patient and there are no aberrancies noted in the prescribing history.??If on a controlled substance or opioid a drug screen was completed and reviewed within the last year, and if there has not been a drug screen completed we ordered one today to monitor higher risk, state monitored pain medication use. As part of providing excellent, safe, comprehensive care, the following was completed at our patient's visit: 1. A medication reconciliation and review to ensure accurate knowledge of current/active medications, including asking our patients to inform us about any tidy-rjc-[id number] medications or herbal remedies/nutritional supplements/alternative remedies. 2. A review to specifically ensure our patients have had annual screening for screening for depression, screening for tobacco use, and screening for unhealthy alcohol use. For concerning screenings had a discussion with the patient, pro vided patient education, and recommended follow-up with primary care provider when appropriate. If patient noted with a risk of falling, they received education on strength, gait, and balance training to prevent future risk of falling. Portions of this note may have been carried over from the previous visit and updated as appropriate. Please note this office utilizes paper charting in addition to the electronic medical record. A list of current medications, vitals, and PMH is available there as the clinical staff outside of myself do not have access to [employer] charting during the clinic day operations. As part of providing quality comprehensive care the current medications, vitals, and PMH were reviewed in the paper chart. 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 The patient does not report intolerable side effects. The patient is NOT opioid naive and non-pharmacologic and non-opioid treatment has failed to significantly relieve the patient's pain and improve functionality. The patient has a diagnosis that is related to a somatic or visceral pain etiology. ? ?? I reviewed with the patient the potential risks and side effects with the use of? opioid medications including but not limited to respiratory depression,? sedation, and even . I verified the patient has access to naloxone should? these effects occur. I advised the patient to avoid the use of any other? sedation substances including alcohol, THC, and benzodiazepines while? taking opioid medications due to the risk of compounding side effects and? detrimental outcomes. I reviewed the ENGINEERING TEST SPECIALIST, pain treatment agreement, urine? drug screen, and opioid start talking forms. The patient was advised to let? their family know they had Naloxone in case they would need to administer? the medication.? ?? A drug screen was completed within the last year, and no aberrancies were noted regarding their use of controlled substances. The patient understands they are subject to the terms and conditions of the pain contract that they have signed. ? ?? I have checked an OARRS report on this patient today and there are no aberrancies noted in the prescribing history.? (4) Ligamentum flavum hypertrophy: (5) Lumbar spondylosis: (6) Muscle spasm: (7) Degenerative disc disease: Plan pt not interested in spinal cord stim trial, finds benefit to current medications continue gabapentin 900mg QID, continue percocet 5-325mg BID PRN moderate to severe pain. tolerating without side effects. continues to notice improvement and pain and functional ability narcan previously prescribed and available at home continue HEP as tolerated f/u 3 months for medication management
--- OUTSIDE RECORDS SUMMARY | 2025-01-05 09:24 | XMS_ITS | CCD ---
Author Organization [facility] Care Team Providers Care Pretzel Packer Name Role Phone BrightelishaalexShaikh Unavailable Unavailable Unavailable Juan Gonzalez Unavailable Unavailable Unavailable NAVEEN ., DR ELIGIO Burns Admitting Unavailable HODGE ., DR ELIGIO Burns Consulting Unavailable HODGE ., DR ELIGIO Burns Attending Unavailable FAWNHD, DIAL H Primary Care Unavailable MIGEL LOMELI Consulting Unavailable HODGE ., DR ELIGIO Burns Admitting Unavailable FAWNHD, DIAL H Primary Care Unavailable ROSEN ., [...] Shashi Salas Attending Unavailable McGuinn II, Dr. Shahsi Salas Referring Unavailable McGuinn II, Dr. Shashi Salas Attending Unavailable MD Misael Mchughikh Primary Care Provider [phone] MD Alta Schmid Attending Provider Alta Schmid Unavailable MD Misael Mchughikh Primary Care Provider MD Alta Schmid Attending Provider JOSE Staley Attending Provider MD Alta Schmid Referring Provider Neena Hi Unavailable MD Yojana Mchugh Primary Care Provider [phone] JOSE Staley Attending Provider MD Alta Schmid Referring Provider MD Yojana Mchugh Primary Care Provider MD Alta Schmid Referring Provider MD Rebeca Ashraf Attending Provider MD Alta Schmid Attending Provider [phone] Gieditis , Andrius Vytautpaul Attending Unavailable Giedraitis , Andrius Vytautas Attending Unavailable Giedraitis , Andrius Vytautas Attending Unavailable Giedraitis , Andrius Vytautas Attending Unavailable Giedraitis , Andrius Vytautas Attending Unavailable Giedraitis , Andrius Vytautas Attending Unavailable Jeison PRAJAPATI, Primary Care Provider Wen CARTOGRAPHY SUPERVISOR-C, Migel Stafford Primary Care Provid er Sharmaine PRAJAPATI, Alta Attending Provider [phone] Zully PRAJAPATI, Gaetano Primary Care Provider [phone] Wen CARTOGRAPHY SUPERVISOR, Migel Unavailable Wen CARTOGRAPHY SUPERVISOR, Migel Unavailable [phone] NO FAMILY, PHYSICIAN Primary Care Provider Unava ilable Sharmaine PRAJAPATI, Alta Attending Provider NO FAMILY, PHYSICIAN Primary Care Unavailable Sharmaine, Alta Attending Unavailable Sharmaine, Alta Admitting Unavailable Wen, Migel Stafford Primary Care Unavaila ble Sharmaine, Alta Attending Unavailable Sharmaine, Alta Admitting Unavailable CONI OSORIO Attending Unavailable MIGEL CARVER Attending Unavailabl e NADJA FULTON Attending Unavailable MIGEL CARVER Referring Unavailabl e Allergies Allergy Classification Reported Allergen(s) Allergy Type Date of Onset Reaction(s) Facility (14 sources) predniSONE; Translations: [predniSONE] Drug Allergy 1 [facility], [facility] (2 sources) predniSONE Drug Allergy 5 [facility] (19 sources) prednisoLONE Drug Allergy 3 [facility] (19 sources) Prednisone Allergy to substance 4 [facility] (1 source) predniSONE Drug Allergy 4 Sheltering [...] needed for Pain March 23, 2023 1:00am Complies with drug therapy take 1 tablet by mouth once oxyC [...] tablet (20 sources) Xanthine Oxidase Inhibitor Start: 11-02-2024 End: 01-31-2025 take 2 tablets by mouth once daily allopurinol (Zyloprim) 100 MG tablet Indications: Chronic gout of multiple sites, unspecified cause Take 2 tablets (200 mg) by mouth Daily 180 tablet 11/02/2024 01/31/2025 Active Start: 10-05-2024 End: 11-03-2024 take 1 tablet by mouth once daily Allopurinol 100 mg tablet Discontinued 0 .ROUTE .COMPLEX 90 October 05, 2024 9:08am November 03, 2024 11:22am TAKE 1 TABLET BY MOUTH DAILY Start: 09-16-2023 End: 11-03-2024 take 1 tablet by mouth once Allopurinol 100 mg tablet Discontinued 100 MG PO Once November 03, 2024 11:19am November 03, 2024 11:34am Start: 01-24-2021 End: 11-02-2024 take 1 tablet by mouth once daily Allopurinol 300 mg tablet Discontinued 300 MG PO Daily January 24, 2021 12:00am March 23, 2023 3:48pm aspirin 81 mg delayed release oral tablet (19 sources) Platelet Aggregation Inhibitor, Nonsteroidal Anti-inflammatory Drug take 1 tablet by mouth in the morning aspirin 81 MG EC tablet Take 1 tablet by mouth in the morning. Active atorvastatin 40 mg oral tablet (20 sources) HMG-CoA Reductase Inhibitor Start: take 1 tablet by mouth in the morning atorvastatin (Lipitor) 40 MG tablet Indications: Mixed hyperlipidemia Take 1 tablet (40 mg) by mouth in the morning. 90 tablet 1 11/02/2024 Active Start: 11-02-2024 take 1 tablet by rafat th in the morning atorvastatin (Lipitor) 40 MG tablet Indications: Mixed hyperlipidemia Take 1 tablet (40 mg) by mouth in the morning. 90 tablet 1 11/02/2024 Active Start: 03-23-2023 End: 11-02-2024 take 1 tablet by mouth once daily Atorvastatin 40 mg tablet Active 40 MG PO Daily March 23, 2023 1:00am Complies with drug therapy Blood Glucose Monitoring Sup pl (ONE TOUCH ULTRA 2) w/Device kit (5 sources) Start: 11-02-2024 End: 11-02-2025 Blood Glucose Monitoring Sup pl (ONE TOUCH ULTRA 2) w/Device kit Indications: Type 2 diabetes mellitus with stage 3a chronic kidney disease, with long-term current use of insulin (HCC) 1 kit Daily 1 kit 11/02/2024 11/02/2025 Active End: 11-02-[address] (ONE TOUCH ULTRA 2) w/Device kit 1 each in the morning and 1 each in the evening. Take before meals. 11/02/2024 Discontinued (Reorder) bumetanide 0.5 mg oral tablet (20 sources) Loop Diuretic Start: 01-24-2021 End: 01-31-2025 take 1 tablet by mouth once daily, then take 1 tablet by mouth once daily bumetanide (Bumex) 0.5 MG tablet Indications: Chronic diastolic congestive heart failure (HCC) Take 1 tablet (0.5 mg) by mouth Daily Take 1 tablet (0.5 mg) by mouth Daily 90 tablet 11/02/2024 01/31/2025 Active take 1 tablet by rafat th every twenty-four hours Bumetanide 0.5 MG 1 TAB BY MOUTH Orally every 24 hrs Active ergocalciferol 1.25 mg oral capsule (1 source) Provitamin D2 Compound Start: 11-03-2024 take 1 capsule by mouth every week Ergocalciferol (Vitamin D2) 1,250 mcg (50,000 unit) capsule Active 1250 MCG PO every week November 03, 2024 12:00am Complies with drug therapy Fluticasone-Umeclidi n-Vilant (Trelegy Ellipta) 200-62.5-25 MCG/ACT aerosol powder (19 sources) Start: 11-02-2024 End: 01-31-2025 take 1 puff(s) by mouth once daily Fluticasone-Umeclidi n-Vilant (Trelegy Ellipta) 200-62.5-25 MCG/ACT aerosol powder Indications: Pulmonary emphysema, unspecified emphysema type (HCC) Inhale 1 puff Daily Rinse mouth after use 180 each 1 11/02/2024 01/31/2025 Active Start: 12-14-2023 End: 11-02-2024 take 1 puff(s) by inhalation once daily Pujcvmdcqso-Bmypvxygb-Mrsaat (Trelegy Ellipta) 200-62.5-25 MCG/ACT aerosol powder Indications: Pulmonary emphysema, unspecified emphysema type (HCC) Inhale 1 puff Daily 1 each 1 12/14/2023 11/02/2024 Discontinued (Reorder) Start: 12-14-2023 take 1 puff(s) by inhalation once daily Wkfzbvkspgy-Qcpcyckec-Rqnwvp (Trelegy Ellipta) 200-62.5-25 MCG/ACT aerosol powder Indications: Pulmonary emphysema, unspecified emphysema type (HCC) Inhale 1 puff Daily 1 each 1 12/14/2023 Active Start: 12-14-2023 take 1 puff(s) by inhalation once daily Gwpnygddjgo-Paflcuepk-Araxdq (Trelegy Ellipta) 200-62.5-25 MCG/ACT aerosol powder Indications: Pulmonary emphysema, unspecified emphysema type (CMS/HCC) Inhale 1 puff Daily 1 each 1 12/14/2023 Active Start: 12-14-2023 End: 01-13-2024 take 1 puff(s) by inhalation once daily Ucrstetrsen-Ulerjbais-Gacazn (Trelegy Ellipta) 200-62.5-25 MCG/ACT aerosol powder Indications: Pulmonary emphysema, unspecified emphysema type (CMS/HCC) Inhale 1 puff Daily 1 each 1 12/14/2023 01/13/2024 Active Cmkbccdsnwn-Kvctmwxmo-Wsfngb er (1 source) Start: 11-03-2024 Jzanqcubctt-Mnuocfdnp-Ivjxwq er (Trelegy Ellipta) 200-62.5-25 mcg blister with device Active 1 INH INHALATION Once November 03, 2024 12:00am Complies with drug therapy gabapentin 300 mg oral capsu le (20 sources) Anti-e pilept ic Agent Start: 11-03-2024 take 3 capsul es by mouth four times daily Gabapentin 300 mg capsule Active 900 MG PO Four times daily November 03, 2024 12:00am Complies with drug therapy Start: 10-19-2024 gabapentin (Ne urontin) 300 MG capsule Take 300 mg by mouth in the morning and 300 mg at noon and 300 mg in the evening and 300 mg before bedtime. 10/19/2024 Active Start: 03-23-2023 End: 11-03-2024 take 1 tablet by mouth three times daily Gabapentin 600 mg tablet Discontinued 600 MG PO Three times daily March 23, 2023 1:00am November 03, 2024 11:19am Start: 01-24-2021 End: 03-23-2023 take 1 capsule by mouth three times daily Gabapentin 400 mg capsule Discontinued 400 MG PO Three times daily January 24, 2021 12:00am March 23, 2023 3:48pm glipiZIDE 10 mg oral tablet (20 sources) Sulfonylurea Start: 03-23-2023 End: 01-31-2025 take 1 tablet by mouth in the morning glipiZIDE (Glucotrol) 10 MG tablet Indications: Type 2 diabetes mellitus with stage 3a chronic kidney disease, with long-term current use of insulin (HCC) Take 1 tablet (10 mg) by mouth in the morning and 1 tablet (10 mg) in the evening. Take before meals. 180 tablet 11/02/2024 01/31/2025 Active Start: 01-24-2021 End: 03-23-2023 take 1 tablet by mouth once daily Glipizide 10 mg tablet Discontinued 10 MG PO Daily January 24, 2021 12:00am March 23, 2023 3:48pm take 1 tablet by rafat th once daily glipiZIDE XL 10 MG Oral Tablet Extended Release 24 Hour TAKE 1 TABLET DAILY DIRECTED. Quantity: 0 Refills: 0 Ordered: 13-May-2021 DO Active Glucose Blood (BBspace ULTRA BLUE TEST ) (2 sources) End: 11-02-2024 Glucose Blood (ONETOUCH ULTRA BLUE TEST ) 1 each by In Vitro route in the morning and 1 each before bedtime. 11/02/2024 Discontinued (Reorder) hydroCHLOROthiazide 25 mg oral tablet (2 sources) Thiazide Diuretic take 1 tablet by mouth every twenty-four hours hydroCHLOROthiazide 25 MG 1 tablet in the morning Orally Once a day Active hydroCHLOROthiazide 25 mg / losartan potassium 100 mg oral tablet (20 sources) Thiazide Diuretic, Angiotensin 2 Receptor Shirley Start: 05-12-2024 End: 01-31-2025 take 1 tablet by mouth in the morning losartan-hydroCHLOROth iazide (Hyzaar) 100-25 MG tablet Indications: Primary hypertension Take 1 tablet by mouth in the morning. 90 tablet 11/02/2024 01/31/2025 Active Start: 03-23-2023 End: 05-12-2024 take 1 tablet by mouth once daily Losartan-Hydrochlorothiazide 100-25 mg Tablet Active 1 TAB PO Daily March 23, 2023 1:00am Complies with drug therapy 3 ml insulin isophane, human 100 unt/ml pen injector (2 sources) NovoLIN N FlexPe n 100 UNIT/ML as directed Subcutaneous 20 UNITS TWICE A DAY Active 3 ml insulin isophane, human 70 unt/ml / insulin, regular, human 30 unt/ml pen injector (20 sources) Insulin Start: 11-02-2024 End: 01-31-2025 inject 25 [IU] by subcutaneous injection in the morning insulin NPH-insulin regular (NovoLIN 70/30 FlexPen Relion) (70-30) 100 UNIT/ML injection Indications: Type 2 diabetes mellitus with stage 3a chronic kidney disease, with long-term current use of insulin (HCC) Inject 25 Units under the skin in the morning and 25 Units in the evening. Inject before meals. 45 mL 1 11/02/2024 01/31/2025 Active Start: 06-27-2024 End: 11-02-2024 insulin NPH-insulin regular (NovoLIN 70/30 FlexPen Relion) (70-30) 100 UNIT/ML injection Indications: Type 2 diabetes mellitus with stage 3a chronic kidney disease, with long-term current use of insulin (HCC) Inject 20 Units under the skin in the morning and 20 Units in the evening. Inject before meals. 7 Insulin pen, 20 subcutaneous q12. 36 mL 06/27/2024 11/02/2024 Discontinued (Reorder) Start: 11-11-2023 End: 02-09-2024 insulin NPH-insulin regular (NovoLIN 70/30 FlexPen Relion) (70-30) 100 UNIT/ML injection Indications: Type 2 diabetes mellitus with stage 3a chronic kidney disease, with long-term current use of insulin (HCC) ([facility]) Inject 20 Units under the skin in the morning and 20 Units in the evening. Inject before meals. 7 Insulin pen, 20 subcutaneous q12. 36 mL 11/11/2023 Active Start: 03-24-2023 Insulin Nph An d Regular Human (Novolin 70-30 Flexpen U-100) 100 unit/mL (70-30) Insulin Pen Active 20 UNIT SUBCUT Twice daily March 24, 2023 1:00am Complies with drug therapy Start: 03-24-2023 Insulin Nph An d Regular [...] 400 mg oral tablet (20 sources) Start: 09-16-2023 End: 01-31-2025 take 1 tablet by mouth in the morning magnesium oxide (Mag-Ox) 400 (240 Mg) MG tablet Indications: Hypomagnesemia Take 1 tablet (400 mg) by mouth in the morning and 1 tablet (400 mg) before bedtime. 180 tablet 11/02/2024 01/31/2025 Active Start: 06-24-2023 End: 11-02-2024 take 1 tablet by mouth once daily Magnesium Oxide 400 mg (241.3 mg magnesium) tablet Discontinued 400 MG PO Daily September 16, 2023 12:00am September 16, 2023 11:35am take 1 tablet by rafat once daily at mealtime Magnesium Oxide 250 MG 1 tablet with food Orally Once a day Active metoprolol tartrate 50 mg oral tablet (20 sources) beta-Adrenergic Shirley Start: 11-03-2024 End: 11-03-2024 Metoprolol Tartrate 50 mg tablet Active 75 MG PO Twice daily 270 November 03, 2024 11:35am Complies with drug therapy Start: 03-23-2023 End: 01-31-2025 take 1 tablet by mouth in the morning metoprolol tartrate (Lopressor) 50 MG tablet Indications: Primary hypertension Take 1 tablet (50 mg) by mouth in the morning and 1 tablet (50 mg) before bedtime. 180 tablet 11/02/2024 01/31/2025 Active Start: 01-24-2021 End: 03-23-2023 take 1 tablet by mouth three times daily Metoprolol Tartrate 50 mg tablet Discontinued 50 MG PO Three times daily January 24, 2021 12:00am March 23, 2023 3:48pm take 2 tablets by mo [facility] once daily Metoprolol Tartrate 50 MG Oral [...] 2024 12:00am nitroglycerin 0.4 mg sublingual tablet (8 sources) Nitrate Vasodilator Start: 09-16-2023 Nitroglycerin 0.4 mg tablet, sublingual Active MG SUBLINGUAL As Directed September 16, 2023 12:00am FreeTextSig: as directed Sublingual; Note: Source Status: Not-TakingundefinedPRN; Provider: Sharmaine Holm ( ) Complies with drug therapy Nitroglycerin 0. 4 MG as directed Sublingual Not-Taking/PRN Nitroglycerin 0. [address] 1 TABLET UNDER THE TONGUE EVERY 5 MINUTES FOR UP TO 3 DOSES NEEDED FOR CHEST PAIN.CALL 911 IF PAIN PERSISTS. Quantity: 1 Refills: 0 Ordered: 08-Dec-2022 DO Active nystatin 100 unt/mg topical powder (7 sources) Polyene Antifungal Start: 06-24-2023 Nystatin 100,000 unit/gram powder Active 1 APPLIC TOPICAL Twice daily June 24, 2023 1:00am apply to dry skin under breasts 2 times daily Complies with drug therapy PARoxetine hydrochloride 20 mg oral tablet (20 sources) Serotonin Reuptake Inhibitor Start: 03-23-2023 End: 01-31-2025 take 1 tablet by mouth in the morning PARoxetine (Paxil) 20 MG tablet Indications: Moderate episode of recurrent major depressive disorder (HCC) Take 1 tablet (20 mg) by mouth in the morning. 90 tablet 11/02/2024 01/31/2025 Active Start: 01-24-2021 End: 03-23-2023 take 1 tablet by mouth once daily Paroxetine Hcl 10 mg tablet Discontinued 10 MG PO Daily January 24, 2021 12:00am March 23, 2023 3:48pm pramipexole dihydrochloride 0.25 mg oral tablet (20 sources) Nonergot Dopamine Agonist Start: 03-22-2024 take 0.25 mg by mouth once daily Pramipexole 0.5 mg tablet Active 0.25 MG PO Daily March 22, 2024 12:24pm Complies with drug therapy Start: 10-19-2023 End: 01-31-2025 take 1 tablet by mouth at bedtime pramipexole (Mirapex) 0.25 MG tablet Indications: RLS (restless legs syndrome) Take 1 tablet (0.25 mg) by mouth at bedtime 90 tablet 11/02/2024 01/31/2025 Active Start: 03-23-2023 End: 03-22-2024 take 1 [...] tablet (20 sources) Serotonin Reuptake Inhibitor Start: 025 End: traZODone (Desyrel) 100 MG tablet Indications: Psychophysiological insomnia TAKE 1 AND 1/2 TABLETS(150 MG) BY MOUTH AT BEDTIME 135 tablet 10/31/2024 11/02/2024 Discontinued (Reorder) Start: 09-24-2023 End: 01-31-2025 take 1.5 tablets by mouth at bedtime traZODone (Desyrel) 100 MG tablet Indications: Psychophysiological insomnia Take 1.5 tablets (150 mg) by mouth at bedtime 135 tablet 11/02/2024 01/31/2025 Active Start: 09-16-2023 Trazodone 100 mg tablet Active 150 MG PO Daily at bedtime September 16, 2023 10:59am Complies with drug therapy Start: 03-23-2023 End: 09-16-2023 take 1 tablet [...] Sig (Original) amLODIPine 2.5 mg oral tablet (9 sources) Dihydropyridine Calcium Channel Shirley Start: End: 11-20-202 3 take 1 tablet by mouth once [...] DO Active cephalexin 500 mg oral capsule (7 sources) Cephalosporin Antibacterial Start: 3 End: 4 take 1 capsule by mouth three times daily Cephalexin 500 mg Capsule Discontinued 500 MG PO Three times daily 15 March 24, 2023 1:00am June 24, 2023 11:13am doxycycline hyclate 100 mg oral tablet (7 sources) Tetracycline-class Drug Start: 4 End: 4 [...] DO Active lisinopril 2.5 mg oral tablet (11 sources) Angiotensin Converting Enzyme Inhibitor Start: 1 End: 3 take 1 tablet by mouth once daily Lisinopril 2.5 mg tablet Discontinued 2.5 MG PO Daily January 24, 2021 12:00am March 23, 2023 3:48pm lovastatin 40 mg oral tablet (17 sources) HMG-CoA Reductase Inhibitor Start: 1 End: 3 take 1 tablet by mouth once daily Lovastatin 40 mg tablet Discontinued 40 MG PO Daily January 24, 2021 12:00am March 23, 2023 3:48pm metFORMIN hydrochloride 500 mg oral tablet (17 sources) Biguanide Start: End: 3 take 1 tablet by mouth twice daily Metformin 500 mg tablet Discontinued 500 MG PO Twice daily January 24, 2021 12:00am March 23, 2023 3:48pm metFORMIN HCl 10 00 MG 1 /2 tablet with a meal Orally TWICE A DAY Active naloxone hydrochloride 40 mg/ml nasal spray (5 sources) Opioid Antagonist Start: 03-22-2024 End: 11-03-2024 Naloxone 4 mg/actuation spray,non-aerosol Discontinued INTRANASAL March 22, 2024 1:00am November 03, 2024 11:20am Start: 03-10-2024 naloxone (Narc an) 4 mg/0.1 mL nasal spray Administer 4 mg into affected nostril(s) if needed 03/10/2024 Active Ozempic (0.25 or 0.5 MG/DOSE) SOPN (2 sources) Ozempic (0.25 or 0.5 MG/DOSE) SOPN as directed Quantity: 0 Refills: 0 Ordered: 08-Dec-2022 DO Active tiZANidine 4 mg oral tablet (17 sources) Central alpha-2 Adrenergic Agonist Start: End: 3 take 1 tablet by [...] [Unspecified abdominal pain] Episodic Chronic kidney disease (19 sources) Chronic kidney disease stage 3; Translations: [Chronic kidney disease, stage 3 (moderate)] Onset: 5 09-16-2023 Chronic Chronic kidney disease (2 sources) Chronic kidney disease; Translations: [Chronic kidney disease, stage 3 unspecified] Onset: 5 Chronic obstructive pulmonary disease and bronchiectasis (20 sources) Chronic obstructive pulmonary disease, unspecified; Translations: [Pulmonary emphysema] Onset: 2 04-13-2023 Chronic Congestive heart failure; nonhypertensive (20 sources) Chronic diastolic heart failure; Translations: [Chronic [...] [Mixed hyperlipidemia] Onset: 2 Chronic Essential hypertension (20 sources) Hypertensive disorder; Translations: [Unspecified essential hypertension] Onset: 3 04-13-2023 Chronic Gout and other crystal arthropathies (11 sources) Gouty arthritis of multiple sites; Translations: [Idiopathic chronic gout, multiple sites, without tophus (tophi)] Onset: 5 10-05-2024 Chronic Hypertension with complications and secondary hypertension (13 sources) Malignant hypertensive chronic kidney disease; Translations: [Hypertensive chronic kidney disease with stage 1 through stage 4 chronic kidney disease, or unspecified chronic kidney disease] Onset: 2 Chronic Miscellaneous mental health disorders (20 sources) Psychophysiologic insomnia; Translations: [Psychophysiologic insomnia] Onset: 4 07-13-2023 Chronic Mood disorders (20 sources) Major depression in full remission; Translations: [Major depressive disorder, single episode, in full remission] Onset: 3 04-13-2023 Chronic Mycoses (14 sources) Mycosis; Translations: [Candidiasis, unspecified] 06-24-2023 Episodic Nonmalignant breast conditions (13 sources) Other specified disorders of breast; Translations: [Breast lump] Onset: 2 06-24-2023 Episodic Other aftercare (5 sources) Long-term current use of insulin; Translations: [shelter (current) use of insulin] Onset: 5 11-02-2024 Episodic Other and ill-defined heart disease (12 sources) Cardiomegaly; Translations: [Cardiomegaly] Chronic Other and ill-defined heart disease (1 source) Cardiomegaly Onset: 1 Resolved: 1 Chronic Other diseases of kidney and ureters (9 sources) Secondary hyperparathyroidism; Translations: [Secondary hyperparathyroidism of renal origin] 09-16-2023 Chronic Other diseases of kidney and ureters (3 sources) Secondary hyperparathyroidism of renal origin; Translations: [Secondary hyperparathyroidism (of renal origin)] Onset: 5 Chronic Other diseases of kidney and ureters (7 sources) Hyperparathyroidism due to renal insufficiency; Translations: [Secondary hyperparathyroidism of renal origin] Onset: 5 11-02-2024 Chronic Other gastrointestinal disorders (4 sources) Constipation; Translations: [Constipation, unspecified] Episodic Other hereditary and degenerative nervous system conditions (1 source) Restless legs syndrome; Translations: [RESTLESS LEGS SYNDROME] Onset: 2 Chronic Other hereditary and degenerative nervous system conditions (20 sources) Restless legs; Translations: [Restless legs syndrome] Onset: 3 04-13-2023 Chronic Other liver diseases (9 sources) Liver cyst; Translations: [Other specified diseases of liver] 09-16-2023 Chronic Other liver diseases (3 sources) Other specified diseases of liver; Translations: [Other specified disorders of liver] Onset: 5 Chronic Other lower respiratory disease (8 sources) Dyspnea; Translations: [Other respiratory abnormalities] Episodic Other nervous system disorders (1 source) Other chronic pain; Translations: [OTHER CHRONIC PAIN] Onset: 3 Chronic Other nervous system disorders (10 sources) Chronic low back pain; Translations: [Other chronic pain] Onset: 3 04-13-2023 Chronic Other nutritional; endocrine; and metabolic disorders (8 sources) Obesity; Translations: [Obesity, unspecified] Chronic Other nutritional; endocrine; and metabolic disorders (4 sources) Obese class I; Translations: [Body mass index (BMI) 33.0-33.9, adult] Chronic Other nutritional; endocrine; and metabolic disorders (14 sources) Hypomagnesemia; Translations: [Hypomagnesemia] Onset: 5 09-16-2023 Chronic Other nutritional; endocrine; and metabolic disorders (4 sources) Hypermagnesemia; Translations: [Hypermagnesemia] Chronic Other nutritional; endocrine; and metabolic disorders (3 sources) Hypomagnesemia; Translations: [Disorders of magnesium metabolism] Onset: 5 Chronic Other nutritional; endocrine; and metabolic disorders (3 sources) Hyperuricemia without signs of inflammatory arthritis and tophaceous disease; Translations: [Other abnormal blood chemistry] Onset: 5 Episodic Other nutritional; endocrine; and metabolic disorders (5 sources) Hyperuricemia; Translations: [Hyperuricemia without signs of inflammatory arthritis and tophaceous disease] 09-16-2023 Episodic Spondylosis; intervertebral disc disorders; other back problems (20 sources) Prolapsed cervical intervertebral disc; Translations: [Other cervical disc displacement, unspecified cervical region] Onset: 2 Resolved: 2 Chronic Substance-related disorders (20 sources) Smoker; Translations: [Tobacco use disorder] Onset: 2 Resolved: 5 04-13-2023 Chronic Comment on above: 1/2 pack [...] [Other specified vaccination] Onset: 04-13-2023 04-13-2023 Episodic Mood disorders (3 sources) Mood disorders Onset: 11-02-2024 11-02-2024 Nonspecific chest pain (4 sources) Chest pain, unspecified; Translations: [CHEST PAIN UNSPECIFIED] Onset: 11-28-2021 Episodic Other aftercare (1 source) Other penitentiary (current) drug therapy; Translations: [[employer] CURRENT DRUG THERAPY] Onset: 12-04-2021 Episodic Other connective tissue disease (19 sources) Disorder of back; Translations: [Disorder of ligament, vertebrae] Onset: 04-08-2023 04-08-2023 Episodic Other connective tissue disease (19 sources) H/O: osteoarthritis; Translations: [Personal history of other diseases of the musculoskeletal system and connective tissue] Onset: 04-08-2023 04-08-2023 Episodic Other connective tissue disease (19 sources) Spasm; Translations: [Other muscle spasm] Onset: [...] Test Name Value Interpretation Reference Range Facility CT LUNG SCREENING LOW DOSEon 11-23-[address] [address] [address] Scan Report Signed Patient: VIDHYA IBARRA MR#: [id number] : 1955 Acct:[id number] Age/Sex: 69 / F ADM Date: 11/23/24 Loc: CT Attending Dr: Coni Osorio NP Ordering Physician: Coni Osorio NP Date of Service: 11/23/24 Procedure(s): CT lung screening low-dose Accession Number(s): [id number] cc: Coni Osorio NP [place] [address] Patient Name: VIDHYA IBARRA MRN: [facility]:[id number] date: 1955 Sex: F Assigned Patient Location: CT Current Patient Location: CT Accession/Order Number: [id number] Exam Date: 11/23/2024 10:02 Report Date: 11/23/2024 10:09 At the request of: CONI OSORIO NP Procedure: CT lung screening low-dose CT CHEST WITHOUT CONTRAST, LOW DOSE SCREENING: CLINICAL DATA: A 69-year old current smoker COMPARISON: CT chest 11/20/2021 TECHNIQUE: Noncontrast axial CT scan images of the chest were obtained under the low dose screening CT protocol. Coronal and sagittal reconstructed images were also submitted. FINDINGS: Mediastinum : Suboptimal evaluation due to low-dose technique. Thoracic aorta appears normal in caliber. Pulmonary trunk appears nondilated. No pericardial effusion. No lymphadenopathy. The esophagus is grossly unremarkable. Lungs: No focal consolidation, pneumothorax or pleural effusion. Trachea and distal airways appear patent. Tree-in-bud nodularity involving the right lung grossly unchanged from the prior study likely bronchiolitis related to smoking. No suspicious noncalcified pulmonary nodule or mass. Upper abdomen: No acute findings. Mild thickening right adrenal gland. Bony thorax and chest wall: Soft tissues surrounding the chest wall demonstrate no acute findings. Osseous structures demonstrate degenerative change. CT/CT lung screening low-dose IMPRESSION: NO SUSPICIOUS PULMONARY NODULE OR MASS. LUNG - RADS Version 1.0 Assessment: Category 1, Negative (No nodules and definitely benign nodules). Management: Continue annual lung screening with LDCT in 12 months. Impression dictated by: Stevan Daniels Jr., D.O. 11/23/2024 10:09 AM Dictation Location: [place] [address] Electronically authenticated by: [id number] Y Date: 11/23/2024 10:09 Dictated By: Stevan Daniels M.D. Signed By: 11/23/24 1012 DD/ 1009 TD/TT: Dump Motorman: [facility] Radiology, Radiologist, MD - 11/23/2024 [place] [address] CT Scan Report Signed Patient: VIDHYA IBARRA MR#: [id number] : 1955 Acct:[id number] Age/Sex: 69 / F ADM Date: 11/23/24 Loc: CT Attending Dr: Coni Osorio NP Ordering Physician: Coni Osorio NP Date of Service: 11/23/24 Procedure(s): CT lung screening low-dose Accession Number(s): [id number] cc: Coni Osorio NP [facility] [place] [id number] Patient Name: VIDHYA IBARRA MRN: [facility]:[id number] date: 1955 Sex: F Assigned Patient Location: CT Current Patient Location: CT Accession/Order Number: [id number] Exam Date: 11/23/2024 10:02 Report Date: 11/23/2024 10:09 At the request of: CNOI OSORIO NP Procedure: CT lung screening low-dose CT CHEST WITHOUT CONTRAST, LOW DOSE SCREENING: CLINICAL DATA: A 69-year old current smoker COMPARISON: CT chest 11/20/2021 TECHNIQUE: Noncontrast axial CT scan images of the chest were obtained under the low dose screening CT protocol. Coronal and sagittal reconstructed images were also submitted. FINDINGS: Mediastinum : Suboptimal evaluation due to low-dose technique. Thoracic aorta appears normal in caliber. Pulmonary trunk appears nondilated. No pericardial effusion. No lymphadenopathy. The esophagus is grossly unremarkable. Lungs: No focal consolidation, pneumothorax or pleural effusion. Trachea and distal airways appear patent. Tree-in-bud nodularity involving the right lung grossly unchanged from the prior study likely bronchiolitis related to smoking. No suspicious noncalcified pulmonary nodule or mass. Upper abdomen: No acute findings. Mild thickening right adrenal gland. Bony thorax and chest wall: Soft tissues surrounding the chest wall demonstrate no acute findings. Osseous structures demonstrate degenerative change. CT/CT lung screening low-dose IMPRESSION: NO SUSPICIOUS PULMONARY NODULE OR MASS. LUNG - RADS Version 1.0 Assessment: Category 1, Negative (No nodules and definitely benign nodules). Management: Continue annual lung screening with LDCT in 12 months. Impression dictated by: Stevan Daniels Jr., D.O. 11/23/2024 10:09 AM Dictation Location: [place] [address] Electronically authenticated by: [id number] Y Date: 11/23/2024 10:09 Dictated By: Stevan Daniels M.D. Signed By: 11/23/24 1012 DD/ 1009 TD/TT: Dump Motorman: [facility] Radiology Study observation (narrative) [facility] CT LUNG SCREENING LOW DOSEOr dered By: Radiologist Radiology on 11-23-2024 [facility] Work Phone: ALL CBC WITH AUTO DIFFon BASOPHILS ABSOLUTE AUTO 0.2 High [facility] Basophils/100 WBC (Bld) 1.3 % 0.2 - 2.0 % [facility] Eosinophils/100 WBC (Bld) 2 % 0.9 - 7.0 % [facility] Erythrocyte distribution width (RBC) [Ratio] 14.3 % 11.0 - 15.0 % [facility] Hematocrit (Bld) [Volume fraction] 49.2 % High 36.0 - 48.0 % [facility] Hemoglobin (Bld) [Mass/Vol] 17 g/dL High 12.0 - 16.0 g/dL [facility] IMMATURE GRANULOCYTES ABS AUTO 0.1 High [facility] Immature granulocytes/100 WBC (Bld) 0.9 % High 0.0 - 0.5 % [facility] Interpretation and review of laboratory results Abnormal [facility] LYMPHOCYTES ABSOLUTE AUTO 2.4 [facility] Lymphocytes/100 WBC (Bld) 20.6 % 20.5 - 60.0 % [facility] MCH (RBC) [Entitic mass] 30.4 pg 26. 7 - 34.0 pg [facility] MCHC (RBC) [Mass/Vol] 34.6 g/dL 29.9 - 35.2 g/dL [facility] MCV (RBC) [Entitic vol] 88 fL 81.0 - 99.0 fL [facility] MONOCYTES ABSOLUTE [facility]O [facility] Monocytes/100 WBC (Bld) 5.7 % 1.7 - 12.0 % [facility] NEUTROPHILS ABSOLUTE AUTO 8 High [facility] Neutrophils/100 WBC (Bld) 69.5 % 43.0 - 75.0 % [facility] Platelet mean volume (Bld) [Entitic vol] 10.9 fL 9.5 - 13.5 fL [facility] TBH EO # 0.2 [facility] TB PLT 255 [facility] TB RBC 5.[address] [facility] WBC 11.5 High [facility] CLINISYNC [facility] Albumin [Mass/volume] in Ser um or Plasma by Bromocresol green (BCG) dye binding methoOrdered By: Alta Schmid on 09-30-2024 Albumin BCG dye [Mass/Vol] Albumin [Mass/volume] in Serum or Plasma by Bromocresol green (BCG) dye binding metho 3.5-5.7 [facility] Albumin BCG dye [Mass/Vol] 4.0 g/dL 3.5-5.7 [facility] Appearance of UrineOrdered B y: Alta Schmid on 09-30-2024 Appearance (U) Urine appearance Clear [facility] Bacteria [Presence] in Urine by AutomatedOrdered By: Alta Schmid on 09-30-2024 Bacteria Auto Ql (U) Bacteria [Presence] in Urine by Automated None Seen [facility] Bacteria Auto Ql (U) None seen [HPF] None Seen [facility] Bilirubin Test strip Ql (U)O rdered By: Alta Schmid on 09-30-2024 Bilirubin Ql (U) Bilirubin.total [Presence] in Urine by Test strip Negative [facility] Bilirubin Ql (U) Negative Negative [facility] Calcium [Mass/volume] in Ser um or PlasmaOrdered By: Alta Schmid on 09-30-2024 Calcium [Mass/Vol] Calcium [Mass/volume] in Serum or Plasma 8.6-10.3 [facility] Carbon dioxide, total [Moles /volume] in Serum or PlasmaOrdered By: Alta Schmid on 09-30-2024 CO2 [Moles/Vol] Carbon dioxide, [...] Creatinine [Mass/volume] in Serum or PlasmaOrdered By: Alat Schmid on 09-30-2024 Creatinine [Mass/Vol] Creatinine [Mass/volume] in Serum or Plasma High 0.60-1.20 [facility] Creatinine [Mass/volume] in UrineOrdered By: Alta Schmid on 09-30-2024 Creatinine (U) [Mass/Vol] Creatinine [Mass/volume] in Urine [facility] Comment on above: No reference range e stablished Creatinine (U) [Mass/Vol] 66.00 mg/dL [facility] Comment on above: No reference range e stablished Dipstick and MicroscopicOrde red By: Alta Schmid on 09-30-2024 Appearance (U) Clear Clear [facility] Comment on above: Order Comment: Name Collection Type:: Clean-Voided Midstream Performed By: #### V [id number], URIC, ADDONUAPLUS, CBCNO, PROCRERAT, RENAL, MG, PTH #### [facility] [address] [place] [address] [place] Color (U) Light-Yellow Yellow [facility] Comment on above: Order Comment: Name Collection Type:: Clean-Voided Midstream Performed By: #### V [id number], URIC, ADDONUAPLUS, CBCNO, PROCRERAT, RENAL, MG, PTH #### [facility] [address] [place] [address] [place] Ketones Ql (U) Negative Negative [facility] Comment on above: Order Comment: Name Collection Type:: Clean-Voided Midstream Performed By: #### V [id number], URIC, ADDONUAPLUS, CBCNO, PROCRERAT, RENAL, MG, PTH #### [facility] [address] Leukocyte esterase Test strip Ql (U) Negative Negative [facility] Comment on above: Order Comment: Name Collection Type:: Clean-Voided Midstream Performed By: #### V [id number], URIC, ADDONUAPLUS, CBCNO, PROCRERAT, RENAL, MG, PTH #### [facility] [address] pH (U) 5.5 [pH] 5.0-9.0 [facility] Comment on above: Order Comment: Name Collection Type:: Clean-Voided Midstream Performed By: #### V [id number], URIC, ADDONUAPLUS, CBCNO, PROCRERAT, RENAL, MG, PTH #### [address] Protein (U) [Mass/Vol] 50 mg/dL High Negative [facility] Comment on above: Order Comment: Name Collection Type:: Clean-Voided Midstream Performed By: #### V [id number], URIC, ADDONUAPLUS, CBCNO, PROCRERAT, RENAL, MG, PTH #### [place] [address] [place] Dipstick and Microscopicon 0 09-30-2024 Bacteria,Urine None Seen Normal None Seen [facility] Comment on above: Order Comment: Name Collection Type:: Clean-Voided Midstream Performed By: #### V [id number], URIC, ADDONUAPLUS, CBCNO, PROCRERAT, RENAL, MG, PTH #### [facility] [address] [place] [address] [place] Bilirubin,Urine Negative Normal Negative [facility] Comment on above: Order Comment: Name Collection Type:: Clean-Voided Midstream Performed By: #### V [id number], URIC, ADDONUAPLUS, CBCNO, PROCRERAT, RENAL, MG, PTH #### [facility] [address] [place] [address] [place] Glucose Ql (U) Normal Normal Normal [facility] Comment on above: Order Comment: Name Collection Type:: Clean-Voided Midstream Performed By: #### V [id number], URIC, ADDONUAPLUS, CBCNO, PROCRERAT, RENAL, MG, PTH #### [address] Hyaline Casts,Urine None Normal 0-8 [facility] Comment on above: Order Comment: Name Collection Type:: Clean-Voided Midstream Result Comment: PERF ORMED BY: [place] [address] PATHOLOGIST IN PROCESS INSPECTOR CLAU SOTO M.D. Performed By: #### V [id number], URIC, ADDONUAPLUS, CBCNO, PROCRERAT, RENAL, MG, PTH #### [address] Nitrite,Urine Negative Normal Negative [facility] Comment on above: Order Comment: Name Collection Type:: Clean-Voided Midstream Performed By: #### V [id number], URIC, ADDONUAPLUS, CBCNO, PROCRERAT, RENAL, MG, PTH #### [address] Occult Blood,Urine Negative Normal Negative [facility] Comment on above: Order Comment: Name Collection Type:: Clean-Voided Midstream Performed By: #### V [id number], URIC, ADDONUAPLUS, CBCNO, PROCRERAT, RENAL, MG, PTH #### [address] RBC,Urine 1-2 Normal 0-4 [facility] Comment on above: Order Comment: Name Collection Type:: Clean-Voided Midstream Performed By: #### V [id number], URIC, ADDONUAPLUS, CBCNO, PROCRERAT, RENAL, MG, PTH #### [address] Specificy [place],Urine 1.013 Normal 1.001-1.030 [facility] Comment on above: Order Comment: Name Collection Type:: Clean-Voided Midstream Performed By: #### V [id number], URIC, ADDONUAPLUS, CBCNO, PROCRERAT, RENAL, MG, PTH #### [facility] [address] Squamous Epithelial Cell,Urine 3-4 High 0-2 [facility] Comment on above: Order Comment: Name Collection Type:: Clean-Voided Midstream Performed By: #### V [id number], URIC, ADDONUAPLUS, CBCNO, PROCRERAT, RENAL, MG, PTH #### [facility] [address] Urobilinogen,Urine Normal Normal Normal [facility] Comment on above: Order Comment: Name Collection Type:: Clean-Voided Midstream Performed By: #### V [id number], URIC, ADDONUAPLUS, CBCNO, PROCRERAT, RENAL, MG, PTH #### [address] WBC,Urine 1-2 Normal 0-4 [facility] Comment on above: Order Comment: Name Collection Type:: Clean-Voided Midstream Performed By: #### V [id number], URIC, ADDONUAPLUS, CBCNO, PROCRERAT, RENAL, MG, PTH #### [address] Epithelial cells.squamous [# /area] in Urine sediment by Automated countOrdered By: Alta Schmid on 09-30-2024 Epithelial cells.squamous Auto (Urine sed) [#/Area] Epithelial cells.squamous [#/area] in Urine sediment by Automated count High 0-2 [facility] Epithelial cells.squamous Auto (Urine sed) [#/Area] 3-4 [HPF] High 0-2 [facility] Erythrocyte distribution [...] by Automated count 0-4 [facility] RBC Auto (Urine sed) [#/Area] 1-2 [HPF] 0-4 [facility] Glucose [Mass/volume] in [...] Uri ne by Test stripOrdered By: Alta cShmid on 09-30-2024 Glucose Test strip (U) [Mass/Vol] Glucose [Mass/volume] in Urine by Test strip Normal [facility] Glucose Test strip (U) [Mass/Vol] Normal mg/dL Normal [facility] Hematocrit Auto (Bld) [Volum e fraction]Ordered By: Alta Schmid on 09-30-2024 Hematocrit (Bld) [Volume fraction] Hematocrit [Volume Fraction] of Blood by Automated count High 34.0-46.4 [facility] Hemoglobin Test strip Ql (U) Ordered By: Alta Schmid on 09-30-2024 Hemoglobin Ql (U) Hemoglobin [Presence] in Urine by Test strip Negative [facility] Hemoglobin Ql (U) Negative Negative [facility] Hemoglobin [Mass/volume] in BloodOrdered By: Alta Schmid on 09-30-2024 Hemoglobin (Bld) [Mass/Vol] Hemoglobin [Mass/volume] in Blood High 11.8-15.4 [facility] Hemogram CBC Without DiffOrd ered By: Alta Schmid on 09-30-2024 Erythrocyte distribution width (RBC) [Ratio] 14.8 % 11.9-15.3 [facility] Comment on above: Performed By: #### V [id number], URIC, ADDONUAPLUS, CBCNO, PROCRERAT, RENAL, MG, PTH #### [facility] [address] [place] [address] Hematocrit (Bld) [Volume fraction] 48.2 % High 34.0-46.4 [facility] Comment on above: Performed By: #### V [id number], URIC, ADDONUAPLUS, CBCNO, PROCRERAT, RENAL, MG, PTH #### [address] Hemoglobin (Bld) [Mass/Vol] 16.3 g/dL High 11.8-15.4 [facility] Comment on above: Performed By: #### V [id number], URIC, ADDONUAPLUS, CBCNO, PROCRERAT, RENAL, MG, PTH #### [facility] [address] [place] [address] MCH (RBC) [Entitic mass] 29.8 pg 24.7-34.3 [facility] Comment on above: Performed By: #### V [id number], URIC, ADDONUAPLUS, CBCNO, PROCRERAT, RENAL, MG, PTH #### [facility] [address] [place] [address] MCV (RBC) [Entitic vol] 88.1 fL 80-100 [facility] Comment on above: Performed By: #### V [id number], URIC, ADDONUAPLUS, CBCNO, PROCRERAT, RENAL, MG, PTH #### [address] Platelet mean volume (Bld) [Entitic vol] 8.9 fL 6.3-10.7 [facility] Comment on above: Result Comment: PERF ORMED BY: [place] [address] PATHOLOGIST IN PROCESS INSPECTOR CLAU SOTO M.D. Performed By: #### V [id number], URIC, ADDONUAPLUS, CBCNO, PROCRERAT, RENAL, MG, PTH #### [address] Platelets (Bld) [#/Vol] 237 10*3/uL 150-450 [facility] Comment on above: Performed By: #### V [id number], URIC, ADDONUAPLUS, CBCNO, PROCRERAT, RENAL, MG, PTH #### [facility] [address] RBC (Bld) [#/Vol] 5.47 10*6/uL High 3.60-5.00 [facility] Comment on above: Performed By: #### V [id number], URIC, ADDONUAPLUS, CBCNO, PROCRERAT, RENAL, MG, PTH #### [facility] [address] Hemogram CBC Without Diffon 09-30-2024 Mean Corpuscular HGB Conc 33.8 g/dL Normal 32.0-35.0 [facility] Comment on above: Performed By: #### V [id number], URIC, ADDONUAPLUS, CBCNO, PROCRERAT, RENAL, MG, PTH #### [address] WBC (Bld) [#/Vol] 11.7 10*3/uL High 3.8-11.6 [facility] Comment on above: Performed By: #### V [id number], URIC, ADDONUAPLUS, CBCNO, PROCRERAT, RENAL, MG, PTH #### [facility] [address] Hyaline casts [#/area] in Ur ine sediment by Automated countOrdered By: Alta Schmid on 09-30-2024 Hyaline casts Auto (Urine sed) [#/Area] Hyaline casts [#/area] in Urine sediment by Automated count 0-8 [facility] Hyaline casts Auto (Urine sed) [#/Area] None [LPF] 0-8 [facility] Ketones Test strip [...] by Automated count 0-4 [facility] WBC Auto (Urine sed) [#/Area] 1-2 [HPF] 0-4 [facility] Leukocytes [#/volume] correc janet for nucleated erythrocytes in Blood by Automated counOrdered By: Alta Schmid on 09-30-2024 WBC corrected for nucl RBC Auto (Bld) [#/Vol] Leukocytes [#/volume] corrected for nucleated erythrocytes in Blood by Automated coun High 3.8-11.6 [facility] WBC corrected for nucl RBC Auto (Bld) [#/Vol] 11.7 10*3/uL High 3.8-11.6 [facility] MCH Auto (RBC) [Entitic mass ]Ordered By: Alta Schmid on 09-30-2024 MCH (RBC) [Entitic mass] MCH [Entitic ma ss] by Automated count 24.7-34.3 [facility] MCHC Auto (RBC) [Mass/Vol]Or dered By: Alta Schmid on 09-30-2024 MCHC (RBC) [Mass/Vol] MCHC [Mass/volume] by Automated count 32.0-35.0 [facility] MCHC (RBC) [Mass/Vol] 33.8 g/dL 32.0-35.0 [facility] MCV Auto (RBC) [Entitic vol] Ordered By: Alta Schmid on 09-30-2024 MCV (RBC) [Entitic vol] MCV [Entitic volume] by Automated count 80-100 [facility] MagnesiumOrdered By: Austen snyder on 09-30-2024 Magnesium [Mass/Vol] 1.6 mg/dL Low 1.9-2.7 [facility] Comment on above: Performed By: #### V [id number], URIC, ADDONUAPLUS, CBCNO, PROCRERAT, RENAL, MG, PTH #### [facility] [address] [place] [address] Magnesium [Mass/volume] in S carlos or PlasmaOrdered By: Alta Schmid on 09-30-2024 Magnesium [Mass/Vol] Magnesium [Mass/volume] in Serum or Plasma Low 1.9-2.7 [facility] Nitrite Test strip Ql (U)Ord ered By: Alta Schmid on 09-30-2024 Nitrite Ql (U) Nitrite [Presence] in Urine by Test strip Negative [facility] Nitrite Ql (U) Negative Negative [facility] No Panel InformationOrdered By: Alta Schmid on 09-30-2024 Estimated GFR (CKD-EPI) 46.949 mL/Min [facility] Creatinine Clearance (Chem N/A [facility] Parathyrin.intact [Mass/volu me] in Serum or PlasmaOrdered By: Alta Schmid on 09-30-2024 Parathyrin.intact [Mass/Vol] Parathyrin.intact [Mass/volume] in Serum or Plasma [facility] Parathyrin.intact [Mass/Vol] 80.6 pg/mL [facility] Parathyroid Hormone Intacton 09-30-2024 Parathyroid Hormone Intact 80.6 pg/mL Normal [facility] Comment on above: Result Comment: PERF ORMED BY: [place] [address] PATHOLOGIST IN PROCESS INSPECTOR CLAU SOTO M.D. Performed By: #### V [id number], URIC, ADDONUAPLUS, CBCNO, PROCRERAT, RENAL, MG, PTH #### [facility] [address] Phosphate [Mass/volume] in S carlos or [...] (Random) 66.00 mg/dL Normal [facility] Comment on above: Result Comment: No r eference range established Performed By: #### V [id number], URIC, ADDONUAPLUS, CBCNO, PROCRERAT, RENAL, MG, PTH #### [facility] [address] [place] [address] Urine Protein/Creatinine Ratio 1242 mg/g{Cre} High 0-200 [facility] Comment on above: Result Comment: PERF ORMED BY: [place] [address] PATHOLOGIST IN PROCESS INSPECTOR CLAU SOTO M.D. Performed By: #### V [id number], URIC, ADDONUAPLUS, CBCNO, PROCRERAT, RENAL, MG, PTH #### [facility] [address] [place] [address] Protein Creat Ratio Ur Rando mOrdered By: Alta Schmid on 09-30-2024 Protein (U) [Mass/Vol] 82 mg/dL High 0-9 [facility] Comment on above: Performed By: #### V [id number], URIC, ADDONUAPLUS, CBCNO, PROCRERAT, RENAL, MG, PTH #### [facility] [address] Protein Test strip (U) [Mass /Vol]Ordered By: Alta Schmid on 09-30-2024 Protein (U) [Mass/Vol] Protein [Mass/volume] in Urine by Test strip High Negative [facility] Protein [Mass/volume] in Uri neOrdered By: Alta Schmid on 09-30-2024 Protein (U) [Mass/Vol] Protein [Mass/volume] in Urine High 0-9 [facility] RBC Auto (Bld) [#/Vol]Ordere d By: Alta Schmid on 09-30-2024 RBC (Bld) [#/Vol] Erythrocytes [#/volume] in Blood by Automated count High 3.60-5.00 [facility] Renal Function Panelon 09-30 Albumin [Mass/Vol] 4.0 g/dL Normal 3.5-5.7 [facility] Comment on above: Performed By: #### V [id number], URIC, ADDONUAPLUS, CBCNO, PROCRERAT, RENAL, MG, PTH #### [facility] [address] Estimated GFR 46.949 mL/Min Normal [facility] Comment on above: Performed By: #### V [id number], URIC, ADDONUAPLUS, CBCNO, PROCRERAT, RENAL, MG, PTH #### [facility] [address] Renal Function PanelOrdered By: Alta Schmid on 09-30-2024 Anion gap [Moles/Vol] 13.7 mmol/L 6.0-15.0 [facility] Comment on above: Performed By: #### V [id number], URIC, ADDONUAPLUS, CBCNO, PROCRERAT, RENAL, MG, PTH #### [facility] [address] Calcium [Mass/Vol] 8.9 mg/dL 8.6-10.3 [facility] Comment on above: Performed By: #### V [id number], URIC, ADDONUAPLUS, CBCNO, PROCRERAT, RENAL, MG, PTH #### [facility] [address] Chloride [Moles/Vol] 102 mmol/L 98-107 [facility] Comment on above: Performed By: #### V [id number], URIC, ADDONUAPLUS, CBCNO, PROCRERAT, RENAL, MG, PTH #### [facility] [address] CO2 [Moles/Vol] 26.2 mmol/L 21.0-31.0 [facility] Comment on above: Performed By: #### V [id number], URIC, ADDONUAPLUS, CBCNO, PROCRERAT, RENAL, MG, PTH #### [facility] [address] Creatinine [Mass/Vol] 1.25 mg/dL High 0.60-1.20 [facility] Comment on above: Performed By: #### V [id number], URIC, ADDONUAPLUS, CBCNO, PROCRERAT, RENAL, MG, PTH #### [facility] [address] Glucose [Mass/Vol] 268 mg/dL High 70-100 [facility] Comment on above: Result Comment: [place] om Glucose Reference Range is dependent on time and content of last meal. Glucose of more than 200 mg/dL in a nonstressed, ambulatory subject supports the diagnosis of Diabetes Mellitus. ADA recommended reference range Performed By: #### V [id number], URIC, ADDONUAPLUS, CBCNO, PROCRERAT, RENAL, MG, PTH #### [address] ADA recommended refe rence rangeRandom Glucose Reference Range is dependent on time and content of last meal. Glucose of more than 200 mg/dL in a nonstressed, ambulatory subject supports the diagnosis of Diabetes Mellitus. Phosphate [Mass/Vol] 3.1 mg/dL 2.5-4.5 [facility] Comment on above: Performed By: #### V [id number], URIC, ADDONUAPLUS, CBCNO, PROCRERAT, RENAL, MG, PTH #### [facility] [address] Potassium [Moles/Vol] 4.9 mmol/L 3.5-5.1 [facility] Comment on above: Performed By: #### V [id number], URIC, ADDONUAPLUS, CBCNO, PROCRERAT, RENAL, MG, PTH #### [facility] [address] Sodium [Moles/Vol] 137 mmol/L 136-145 [facility] Comment on above: Performed By: #### V [id number], URIC, ADDONUAPLUS, CBCNO, PROCRERAT, RENAL, MG, PTH #### [facility] [address] Urea nitrogen [Mass/Vol] 24 mg/dL 11-25 [facility] Comment on above: Performed By: #### V [id number], URIC, ADDONUAPLUS, CBCNO, PROCRERAT, RENAL, MG, PTH #### [facility] [address] Serum or plasma anion gap de terminationOrdered By: Alta Fletcherr on 09-30-2024 Anion gap [Moles/Vol] Serum or [...] by Test strip 1.001-1.030 [facility] Specific gravity (U) [Rel density] 1.013 1.001-1.030 [facility] Urate [Mass/volume] in Serum or PlasmaOrdered By: Alta Sharmaine on 09-30-2024 Urate [Mass/Vol] Urate [Mass/volume] in Serum or Plasma High 2.3-6.6 [facility] Urea nitrogen [Mass/volume] in Serum or PlasmaOrdered By: Alta Sharmaine on 09-30-2024 Urea nitrogen [Mass/Vol] Urea nitrogen [Mass/volume] in Serum or Plasma 11-25 [facility] Uric AcidOrdered By: Austen snyder on 09-30-2024 Urate [Mass/Vol] 8.3 mg/dL High 2.3-6.6 [facility] Comment on above: Performed By: #### V [id number], URIC, ADDONUAPLUS, CBCNO, PROCRERAT, RENAL, MG, PTH #### [facility] [address] Urine protein/creatinine rat ioOrdered By: Alta Schmid on 09-30-2024 Protein/Creatinine (U) [Ratio] Urine protein/creatinine ratio High 0-200 [facility] Protein/Creatinine (U) [Ratio] 1242 mg/g{Cre} High 0-200 [facility] Urobilinogen Test strip (U) [Mass/Vol]Ordered By: Alta Schmid on 09-30-2024 Urobilinogen (U) [Mass/Vol] Urobilinogen [Mass/volume] in Urine by Test strip Normal [facility] Urobilinogen (U) [Mass/Vol] Normal mg/dL Normal [facility] Vitamin D 25 Hydroxy Totalon 09-30-2024 Vitamin D 25 Hydroxy Total 26.8 ng/mL Low 30-100 [facility] Comment on above: Result Comment: DEBORAH MIN D STATUS 25(OH)VITAMIN D RANGE (ng/mL) Deficient <20 Insufficient 20 to <30 Sufficient 30 to 100 Reference: Raven MF,Isai NC, Randa WALSH, et al. Evaluation,treatment, and prevention of vitamin D deficiency; an Endocrine Society clinical practice guideline. JCEM. 2010; 96(7):1911-30. PERFORMED BY: [facility] [address] [place] [address] PATHOLOGIST IN PROCESS INSPECTOR CLAU SOTO M.D. Performed By: #### V [id number], URIC, ADDONUAPLUS, CBCNO, PROCRERAT, RENAL, MG, PTH #### [facility] [address] [place] [id number] [facility] Vitamin D+Metabolites [Mass/ volume] in Serum or PlasmaOrdered By: Alta Schmid on 09-30-2024 Vitamin D+Metabolites [Mass/Vol] Vitamin D+Metabolites [Mass/volume] in Serum or Plasma Low 30-100 [facility] Comment on above: VITAMIN D STATUS 25( OH)VITAMIN D RANGE (ng/mL) Deficient <20 Insufficient 20 to <30Sufficient 30 to 100Reference: Isai Rich, Randa WALSH, et al. Evaluation,treatment, and prevention of vitamin D deficiency; an Endocrine Society clinical practice guideline. JC. 2010; 96(7):1911-30. Vitamin D+Metabolites [Mass/Vol] 26.8 ng/mL Low 30-100 [facility] Comment on above: VITAMIN D STATUS 25( OH)VITAMIN D RANGE (ng/mL) Deficient <20 Insufficient 20 to <30Sufficient 30 to 100Reference: Isai Rich, Randa WALSH, et al. Evaluation,treatment, and prevention of vitamin D deficiency; an Endocrine Society clinical practice guideline. JCEM. 2010; 96(7):1911-. pH Test strip (U)Ordered By: Alta Schmid [...] on 03-14-2024 Appearance (U) Urine appearance Clear [facility] Bacteria [Presence] in Urine by AutomatedOrdered By: [...] 05-14-2023 Appearance (U) Clear Normal Clear [facility] Comment on above: Order Comment: Name Collection Type:: Clean-Voided Midstream Performed By: #### A DDONUAPLUS, CBCNO, PROCRERAT, [id number], RENAL, PTH, URIC, MG #### [facility] [address] [place] [phone] [place] Bacteria,Urine Rare Normal None Seen [facility] Comment on above: Order Comment: Name Collection Type:: Clean-Voided Midstream Performed By: #### A DDONUAPLUS, CBCNO, PROCRERAT, [id number], RENAL, PTH, URIC, MG #### [facility] [address] [place] [phone] [place] Bilirubin,Urine Negative Normal Negative The [facility] Comment on above: Order Comment: Name Collection Type:: Clean-Voided Midstream Performed By: #### A DDONUAPLUS, CBCNO, PROCRERAT, [id number], RENAL, PTH, URIC, MG #### [address] Color (U) Colorless Normal Yellow [facility] Comment on above: Order Comment: Name Collection Type:: Clean-Voided Midstream Performed By: #### A DDONUAPLUS, CBCNO, PROCRERAT, [id number], RENAL, PTH, URIC, MG #### [address] Glucose Ql (U) 200 mg/dL High Normal [facility] Comment on above: Order Comment: Name Collection Type:: Clean-Voided Midstream Performed By: #### A DDONUAPLUS, CBCNO, PROCRERAT, [id number], RENAL, PTH, URIC, MG #### [address] Hyaline Casts,Urine 0 [LPF] Normal 0-8 [facility] Comment on above: Order Comment: Name Collection Type:: Clean-Voided Midstream Performed By: #### A DDONUAPLUS, CBCNO, PROCRERAT, [id number], RENAL, PTH, URIC, MG #### [address] Ketones Ql (U) Negative Normal Negative [facility] Comment on above: Order Comment: Name Collection Type:: Clean-Voided Midstream Performed By: #### A DDONUAPLUS, CBCNO, PROCRERAT, [id number], RENAL, PTH, URIC, MG #### [address] Leukocyte esterase Test strip Ql (U) Negative Normal Negative [facility] Comment on above: Order Comment: Name Collection Type:: Clean-Voided Midstream Performed By: #### A DDONUAPLUS, CBCNO, PROCRERAT, [id number], RENAL, PTH, URIC, MG #### [address] Mucus,Urine Rare Normal [facility] Comment on above: Order Comment: Name Collection Type:: Clean-Voided Midstream Result Comment: PERF ORMED BY: [place] [address] PATHOLOGIST IN PROCESS INSPECTOR SHANTE LOMBARDI M.D. Performed By: #### A DDONUAPLUS, CBCNO, PROCRERAT, [id number], RENAL, PTH, URIC, MG #### [address] Nitrite,Urine Negative Normal Negative [facility] Comment on above: Order Comment: Name Collection Type:: Clean-Voided Midstream Performed By: #### A DDONUAPLUS, CBCNO, PROCRERAT, [id number], RENAL, PTH, URIC, MG #### [address] Occult Blood,Urine Negative Normal Negative [facility] Comment on above: Order Comment: Name Collection Type:: Clean-Voided Midstream Performed By: #### A DDONUAPLUS, CBCNO, PROCRERAT, [id number], RENAL, PTH, URIC, MG #### [address] pH (U) 5.5 [pH] Normal 5.0-9.0 [facility] Comment on above: Order Comment: Name Collection Type:: Clean-Voided Midstream Performed By: #### A DDONUAPLUS, CBCNO, PROCRERAT, [id number], RENAL, PTH, URIC, MG #### [address] Protein,Urine Negative Normal Negative [facility] Comment on above: Order Comment: Name Collection Type:: Clean-Voided Midstream Performed By: #### A DDONUAPLUS, CBCNO, PROCRERAT, [id number], RENAL, PTH, URIC, MG #### [address] RBC,Urine 1 [HPF] Normal 0-4 [facility] Comment on above: Order Comment: Name Collection Type:: Clean-Voided Midstream Performed By: #### A DDONUAPLUS, CBCNO, PROCRERAT, [id number], RENAL, PTH, URIC, MG #### [address] Specificy [place],Urine 1.008 Normal 1.001-1.030 [facility] Comment on above: Order Comment: Name Collection Type:: Clean-Voided Midstream Performed By: #### A DDONUAPLUS, CBCNO, PROCRERAT, [id number], RENAL, PTH, URIC, MG #### [address] Squamous Epithelial Cell,Urine 3 [HPF] High 0-2 [facility] Comment on above: Order Comment: Name Collection Type:: Clean-Voided Midstream Performed By: #### A DDONUAPLUS, CBCNO, PROCRERAT, [id number], RENAL, PTH, URIC, MG #### [address] Urobilinogen,Urine Normal Normal Normal [facility] Comment on above: Order Comment: Name Collection Type:: Clean-Voided Midstream Performed By: #### A DDONUAPLUS, CBCNO, PROCRERAT, [id number], RENAL, PTH, URIC, MG #### [address] WBC,Urine 1 [HPF] Normal 0-4 [facility] Comment on above: Order Comment: Name Collection Type:: Clean-Voided Midstream Performed By: #### A DDONUAPLUS, CBCNO, PROCRERAT, [id number], RENAL, PTH, URIC, MG #### [address] Epithelial cells.squamous [# /area] in Urine [facility] Hem[facility] [Mass/volume] in BloodOrdered By: Atla Schmid on 03-14-2024 Hemoglobin (Bld) [Mass/Vol] Hemoglobin [Mass/volume] in Blood 11.8-15.4 [facility] Hemogram CBC Without Diffon 03-14-2024 Erythrocyte distribution width (RBC) [Ratio] 14.5 % Normal 11.9-15.3 [facility] Comment on above: Performed By: #### A DDONUAPLUS, CBCNO, PROCRERAT, [id number], RENAL, PTH, URIC, MG #### [address] Hematocrit (Bld) [Volume fraction] 43.9 % Normal 34.0-46.4 [facility] Comment on above: Performed By: #### A DDONUAPLUS, CBCNO, PROCRERAT, [id number], RENAL, PTH, URIC, MG #### [address] Hemoglobin (Bld) [Mass/Vol] 15.1 g/dL Normal 11.8-15.4 [facility] Comment on above: Performed By: #### A DDONUAPLUS, CBCNO, PROCRERAT, [id number], RENAL, PTH, URIC, MG #### [address] MCH (RBC) [Entitic mass] 31.0 pg Normal 24.7-34.3 [facility] Comment on above: Performed By: #### A DDONUAPLUS, CBCNO, PROCRERAT, [id number], RENAL, PTH, URIC, MG #### [address] MCV (RBC) [Entitic vol] 90.4 fL Normal 80-100 T [facility] Comment on above: Performed By: #### A DDONUAPLUS, CBCNO, PROCRERAT, [id number], RENAL, PTH, URIC, MG #### [address] Mean Corpuscular HGB Conc 34.3 g/dL Normal 32.0-35.0 [facility] Comment on above: Performed By: #### A DDONUAPLUS, CBCNO, PROCRERAT, [id number], RENAL, PTH, URIC, MG #### [address] Platelet mean volume (Bld) [Entitic vol] 8.7 fL Normal 6.3-10.7 [facility] Comment on above: Result Comment: PERF ORMED BY: [place] [address] PATHOLOGIST IN PROCESS INSPECTOR SHANTE LOMBARDI M.D. Performed By: #### A DDONUAPLUS, CBCNO, PROCRERAT, [id number], RENAL, PTH, URIC, MG #### [facility] [address] Platelets (Bld) [#/Vol] 268 10*3/uL Normal 150-450 [facility] Comment on above: Performed By: #### A DDONUAPLUS, CBCNO, PROCRERAT, [id number], RENAL, PTH, URIC, MG #### [facility] [address] RBC (Bld) [#/Vol] 4.86 10*6/uL Normal 3.60-5.00 [facility] Comment on above: Performed By: #### A DDONUAPLUS, CBCNO, PROCRERAT, [id number], RENAL, PTH, URIC, MG #### [facility] [address] WBC (Bld) [#/Vol] 11.8 10*3/uL High 3.8-11.6 [facility] Comment on above: Performed By: #### A DDONUAPLUS, CBCNO, PROCRERAT, [id number], RENAL, PTH, URIC, MG #### [address] Hyaline casts [#/area] in Ur ine [...] 1.3 mg/dL Low 1.9-2.7 [facility] Comment on above: Performed By: #### V [id number], URIC, ADDONUAPLUS, CBCNO, PROCRERAT, RENAL, MG, PTH #### [facility] [address] Magnesium [Mass/volume] in S carlos or [...] Intact 50.5 pg/mL Normal [facility] Comment on above: Result Comment: PERF ORMED BY: [place] [address] PATHOLOGIST IN PROCESS INSPECTOR SHANTE LOMBARDI M.D. Performed By: #### V [id number], URIC, ADDONUAPLUS, CBCNO, PROCRERAT, RENAL, MG, PTH #### [facility] [address] Phosphate [Mass/volume] in S carlos or [...] (Random) 25.00 mg/dL Normal [facility] Comment on above: Result Comment: No r eference range established Performed By: #### V [id number], URIC, ADDONUAPLUS, CBCNO, PROCRERAT, RENAL, MG, PTH #### [facility] [address] Protein (U) [Mass/Vol] 9 mg/dL Normal 0-9 [facility] e [facility] Comment on above: Performed By: #### V [id number], URIC, ADDONUAPLUS, CBCNO, PROCRERAT, RENAL, MG, PTH #### [facility] [address] Urine Protein/Creatinine Ratio 360 mg/g{Cre} High 0-200 [facility] Comment on above: Result Comment: PERF ORMED BY: [place] [address] PATHOLOGIST IN PROCESS INSPECTOR SHANTE LOMBARDI M.D. Performed By: #### V [id number], URIC, ADDONUAPLUS, CBCNO, PROCRERAT, RENAL, MG, PTH #### [address] Protein Test strip (U) [Mass /Vol]Ordered [...] [Mass/Vol] 3.9 g/dL Normal 3.5-5.7 [facility] Comment on above: Performed By: #### V [id number], URIC, ADDONUAPLUS, CBCNO, PROCRERAT, RENAL, MG, PTH #### [facility] [address] Anion gap [Moles/Vol] 12.5 mmol/L Normal 6.0-15.0 [facility] e [facility] Comment on above: Performed By: #### V [id number], URIC, ADDONUAPLUS, CBCNO, PROCRERAT, RENAL, MG, PTH #### [facility] [address] Calcium [Mass/Vol] 9.3 mg/dL Normal 8.6-10.3 [facility] Comment on above: Performed By: #### V [id number], URIC, ADDONUAPLUS, CBCNO, PROCRERAT, RENAL, MG, PTH #### [address] Chloride [Moles/Vol] 100 mmol/L Normal 98-107 [facility] Comment on above: Performed By: #### V [id number], URIC, ADDONUAPLUS, CBCNO, PROCRERAT, RENAL, MG, PTH #### [address] CO2 [Moles/Vol] 28.3 mmol/L Normal 21.0-31.0 [facility] Comment on above: Performed By: #### V [id number], URIC, ADDONUAPLUS, CBCNO, PROCRERAT, RENAL, MG, PTH #### [address] Creatinine [Mass/Vol] 1.44 mg/dL High 0.60-1.20 [facility] Comment on above: Performed By: #### V [id number], URIC, ADDONUAPLUS, CBCNO, PROCRERAT, RENAL, MG, PTH #### [address] GFR/1.73 sq M.predicted MDRD (S/P/Bld) [Vol rate/Area] 39.618 mL/min/{1.73_m2} Normal [facility] Comment on above: Performed By: #### V [id number], URIC, ADDONUAPLUS, CBCNO, PROCRERAT, RENAL, MG, PTH #### [facility] [address] Glucose [Mass/Vol] 361 mg/dL High 70-100 [facility] Comment on above: Result Comment: [facility] Glucose Reference Range is dependent on time and content of last meal. Glucose of more than 200 mg/dL in a nonstressed, ambulatory subject supports the diagnosis of Diabetes Mellitus. ADA recommended reference range Performed By: #### V [id number], URIC, ADDONUAPLUS, CBCNO, PROCRERAT, RENAL, MG, PTH #### [address] Phosphate [Mass/Vol] 3.0 mg/dL Normal 2.5-4.5 [facility] Comment on above: Performed By: #### V [id number], URIC, ADDONUAPLUS, CBCNO, PROCRERAT, RENAL, MG, PTH #### [facility] [address] [place] [address] [place] Potassium [Moles/Vol] 4.8 mmol/L Normal 3.5-5.1 [facility] Comment on above: Performed By: #### V [id number], URIC, ADDONUAPLUS, CBCNO, PROCRERAT, RENAL, MG, PTH #### [address] Sodium [Moles/Vol] 136 mmol/L Normal 136-145 [facility] Comment on above: Performed By: #### V [id number], URIC, ADDONUAPLUS, CBCNO, PROCRERAT, RENAL, MG, PTH #### [place] [address] [place] Urea nitrogen [Mass/Vol] 27 mg/dL High 7-25 [facility] Comment on above: Performed By: #### V [id number], URIC, ADDONUAPLUS, CBCNO, PROCRERAT, RENAL, MG, PTH #### [facility] [address] [place] [phone] [facility] Serum or plasma anion gap de terminationOrdered [...] Urate [Mass/Vol] 6.9 mg/dL High 2.3-6.6 [facility] Comment on above: Performed By: #### V [id number], URIC, ADDONUAPLUS, CBCNO, PROCRERAT, RENAL, MG, PTH #### [facility] [address] [place] [phone] [place] Urine protein/creatinine rat ioOrdered By: Alta Sharmaine on 03-14-2024 Protein/Creatinine (U) [Ratio] Urine protein/creatinine ratio High 0-200 [facility] Urobilinogen Test strip (U) [Mass/Vol]Ordered By: Alta Sharmaine on 03-14-2024 Urobilinogen (U) [Mass/Vol] Urobilinogen [Mass/volume] in Urine by Test strip Normal [facility] Vitamin D 25 Hydroxy Totalon 03-14-2024 Vitamin D 25 Hydroxy Total 30.4 ng/mL Normal 30-100 [facility] Comment on above: Result Comment: DEBORAH MIN D STATUS 25(OH)VITAMIN D RANGE (ng/mL) Deficient <20 Insufficient 20 to <30 Sufficient 30 to 100 Reference: Isai Rich, Randa WALSH, et al. Evaluation,treatment, and prevention of vitamin D deficiency; an Endocrine Society clinical practice guideline. JCEM. 2010; 96(7):1911-30. PERFORMED BY: [facility] [address] [place] [address] PATHOLOGIST IN PROCESS INSPECTOR SHANTE LOMBARDI M.D. Performed By: #### V [id number], URIC, ADDONUAPLUS, CBCNO, PROCRERAT, RENAL, MG, PTH #### [address] Vitamin D+Metabolites [Mass/ volume] in Serum [...] [#/Area] 0-1 [HPF] 0-4 [facility] Bilirubin Test strip Ql (U)O rdered By: Alta Schmid on 09-12-2023 Bilirubin Ql (U) Negative Negative [facility] Calcium [Mass/volume] in Ser um or PlasmaOrdered By: Alta Schmid on 09-12-2023 Calcium [Mass/Vol] 9.3 mg/dL 8.6-10.3 [facility] Carbon dioxide, total [Moles /volume] in Serum or PlasmaOrdered By: Alta Schmid on 09-12-2023 CO2 [Moles/Vol] 26.0 mmol/L 21.0-31.0 [facility] Chloride [Moles/volume] in S carlos or PlasmaOrdered By: Alta Schmid on 09-12-2023 Chloride [Moles/Vol] 101 mmol/L 98-107 [facility] Color Auto (U)Ordered By: Ab richard Schmid on 09-12-2023 Color (U) Yellow Yellow [facility] Creatinine [Mass/volume] in Serum or PlasmaOrdered By: Alta Schmid on 09-12-2023 Creatinine [Mass/Vol] 1.41 mg/dL 0.60-1.20 [facility] Creatinine [Mass/volume] in UrineOrdered By: Alta Schmid on 09-12-2023 Creatinine (U) [Mass/Vol] 59.0 mg/dL [facility] Comment on above: No reference range e stablished Erythrocyte distribution wid th Auto (RBC) [Ratio]Ordered By: Alta Schmid on 09-12-2023 Erythrocyte distribution width (RBC) [Ratio] 15.2 % 11.9-15.3 [facility] Glucose [Mass/volume] in Ser um or PlasmaOrdered By: Alta Schmid on 09-12-2023 Glucose [Mass/Vol] 333 mg/dL 70-100 [facility] Comment on above: ADA recommended refe rence rangeRandom Glucose Reference Range is dependent on time and content of last meal. Glucose of more than 200 mg/dL in a nonstressed, ambulatory subject supports the diagnosis of Diabetes Mellitus. Hematocrit Auto (Bld) [Volum e fraction]Ordered By: Alta Schmid on 09-12-2023 Hematocrit (Bld) [Volume fraction] 43.7 % 34.0-46.4 [facility] Hemoglobin [Mass/volume] in BloodOrdered By: Alta Schmid on 09-12-2023 Hemoglobin (Bld) [Mass/Vol] 15.0 g/dL 11.8-15.4 [facility] Ketones Auto test strip (U) [Mass/Vol]Ordered By: Alta Schmid on 09-12-2023 Ketones (U) [Mass/Vol] Negative Negative [facility] Laboratory - UrinalysisOrder ed By: Alta Schmid on 09-12-2023 Hyaline casts LM Ql (Urine sed) None seen [LPF] 0-8 [facility] Leukocytes [#/volume] correc janet for nucleated erythrocytes in Blood by Automated counOrdered By: Alta Schmid on 09-12-2023 WBC corrected for nucl RBC Auto (Bld) [#/Vol] 13.1 10*3/uL 3.8-11.6 [facility] MCH Auto (RBC) [Entitic mass ]Ordered By: Alta Schmid on 09-12-2023 MCH (RBC) [Entitic mass] 30.3 pg 24.7-34.3 [facility] MCHC Auto (RBC) [Mass/Vol]Or dered By: Alta Schmid on 09-12-2023 MCHC (RBC) [Mass/Vol] 34.4 g/dL 32.0-35.0 [facility] MCV Auto (RBC) [Entitic vol] Ordered By: Alta Schmid on 09-12-2023 MCV (RBC) [Entitic vol] 88.2 fL 80-100 [facility] Magnesium [Mass/volume] in S carlos or PlasmaOrdered By: Alta Schmid on 09-12-2023 Magnesium [Mass/Vol] 1.4 mg/dL 1.9-2.7 [facility] Nitrite Test strip Ql (U)Ord ered By: Alta Schmid on 09-12-2023 Nitrite Ql (U) Negative Negative [facility] No Panel InformationOrdered By: Alta Schmid on 09-12-2023 Estimated GFR (CKD-EPI) 40.884 mL/Min [facility] Creatinine Clearance (Chem N/A [facility] Parathyrin.intact [Mass/volu me] in Serum or PlasmaOrdered By: Alta Schmid on 09-12-2023 Parathyrin.intact [Mass/Vol] 63.3 pg/mL 12-88 [facility] Phosphate [Mass/volume] in S carlos or PlasmaOrdered By: Alta Schmid on 09-12-2023 Phosphate [Mass/Vol] 3.6 mg/dL 2.5-4.5 [facility] Platelet mean volume Auto (B ld) [Entitic vol]Ordered By: Alta Schmid on 09-12-2023 Platelet mean volume (Bld) [Entitic vol] 8.7 fL 6.3-10.7 [facility] Platelets Auto (Bld) [#/Vol] Ordered By: Alta Schmid on 09-12-2023 Platelets (Bld) [#/Vol] 263 10*3/uL 150-450 [facility] Potassium [Moles/volume] in Serum or PlasmaOrdered By: Alta Schmid on 09-12-2023 Potassium [Moles/Vol] 4.5 mmol/L 3.5-5.1 [facility] Protein Auto test strip (U) [Mass/Vol]Ordered By: Alta Schmid on 09-12-2023 Protein (U) [Mass/Vol] 30 mg/dL Negative [facility] Protein [Mass/volume] in Uri neOrdered By: Alta Schmid on 09-12-2023 Protein (U) [Mass/Vol] 47 mg/dL 0-9 [facility] RBC Auto (Bld) [#/Vol]Ordere d By: Alta Schmid on 09-12-2023 RBC (Bld) [#/Vol] 4.96 10*6/uL 3.60-5.00 [facility] Serum or plasma anion gap de terminationOrdered By: Alta Schmid on 09-12-2023 Anion gap [Moles/Vol] 12.5 mmol/L 6.0-15.0 [facility] Sodium [Moles/volume] in Ser um or PlasmaOrdered By: Alta Schmid on 09-12-2023 Sodium [Moles/Vol] 135 mmol/L 136-145 [facility] Specific gravity Auto test s trip (U) [...] on 09-12-2023 Urate [Mass/Vol] 7.9 mg/dL 2.3-6.6 [facility] Urea nitrogen [Mass/volume] in Serum or PlasmaOrdered By: Alta Schmid on 09-12-2023 Urea nitrogen [Mass/Vol] 32 mg/dL 7-25 [facility] Urine bacteria [...] (U) Negative Negative [facility] Urine protein/creatinine rat [...] on 09-12-2023 pH (U) 5.5 [pH] 5.0-9.0 [facility] Albumin [Mass/volume] in [...] [#/Area] 0-1 [HPF] 0-4 [facility] Bilirubin Test strip Ql (U)O rdered By: Alta Schmid on 07-31-2023 Bilirubin Ql (U) Negative Negative [facility] Calcium [Mass/volume] in Ser um or PlasmaOrdered By: Alta Schmid on 07-31-2023 Calcium [Mass/Vol] 9.4 mg/dL 8.6-10.3 [facility] Carbon dioxide, total [Moles /volume] in Serum or PlasmaOrdered By: Alta Schmid on 07-31-2023 CO2 [Moles/Vol] 28.1 mmol/L 21.0-31.0 [facility] Chloride [Moles/volume] in S carlos or PlasmaOrdered By: Alta Schmid on 07-31-2023 Chloride [Moles/Vol] 103 mmol/L 98-107 [facility] Color Auto (U)Ordered By: Ab ricahrd Schmid on 07-31-2023 Color (U) Yellow Yellow [facility] Creatinine [Mass/volume] in Serum or PlasmaOrdered By: Alta Schmid on 07-31-2023 Creatinine [Mass/Vol] 1.49 mg/dL 0.60-1.20 [facility] Creatinine [Mass/volume] in UrineOrdered By: Alta Schmid on 07-31-2023 Creatinine (U) [Mass/Vol] 64.0 mg/dL [facility] Comment on above: No reference range e stablished Erythrocyte distribution wid th Auto (RBC) [Ratio]Ordered By: Alta Schmid on 07-31-2023 Erythrocyte distribution width (RBC) [Ratio] 15.4 % 11.9-15.3 [facility] Glucose [Mass/volume] in Ser um or PlasmaOrdered By: Alta Schmid on 07-31-2023 Glucose [Mass/Vol] 235 mg/dL 70-100 [facility] Comment on above: ADA recommended refe rence rangeRandom Glucose Reference Range is dependent on time and content of last meal. Glucose of more than 200 mg/dL in a nonstressed, ambulatory subject supports the diagnosis of Diabetes Mellitus. Hematocrit Auto (Bld) [Volum e fraction]Ordered By: Alta Schmid on 07-31-2023 Hematocrit (Bld) [Volume fraction] 42.7 % 34.0-46.4 [facility] Hemoglobin [Mass/volume] in BloodOrdered By: Alta Schmid on 07-31-2023 Hemoglobin (Bld) [Mass/Vol] 14.4 g/dL 11.8-15.4 [facility] Ketones Auto test strip (U) [Mass/Vol]Ordered By: Alta Schmid on 07-31-2023 Ketones (U) [Mass/Vol] Negative Negative [facility] Laboratory - UrinalysisOrder ed By: Alta Schmid on 07-31-2023 Hyaline casts LM Ql (Urine sed) 0-8 [LPF] 0-8 [facility] Leukocytes [#/volume] correc janet for nucleated erythrocytes in Blood by Automated counOrdered By: Alta Schmid on 07-31-2023 WBC corrected for nucl RBC Auto (Bld) [#/Vol] 12.8 10*3/uL 3.8-11.6 [facility] MCH Auto (RBC) [Entitic mass ]Ordered By: Alta Schmid on 07-31-2023 MCH (RBC) [Entitic mass] 29.9 pg 24.7-34.3 [facility] MCHC Auto (RBC) [Mass/Vol]Or dered By: Alta Schmid on 07-31-2023 MCHC (RBC) [Mass/Vol] 33.6 g/dL 32.0-35.0 [facility] MCV Auto (RBC) [Entitic vol] Ordered By: Alta Schmid on 07-31-2023 MCV (RBC) [Entitic vol] 89.0 fL 80-100 [facility] Magnesium [Mass/volume] in S carlos or PlasmaOrdered By: Alta Schmid on 07-31-2023 Magnesium [Mass/Vol] 1.3 mg/dL 1.9-2.7 [facility] Nitrite Test strip Ql (U)Ord ered By: Alta Schmdi on 07-31-2023 Nitrite Ql (U) Negative Negative [facility] No Panel InformationOrdered By: Alta Schmid on 07-31-2023 Estimated GFR (CKD-EPI) 38.264 mL/Min [facility] Creatinine Clearance (Chem 38.44 [facility] Parathyrin.intact [Mass/volu me] in Serum or PlasmaOrdered By: Alta Schmid on 07-31-2023 Parathyrin.intact [Mass/Vol] 47.7 pg/mL 12-88 [facility] Phosphate [Mass/volume] in S carlos or PlasmaOrdered By: Alta Schmid on 07-31-2023 Phosphate [Mass/Vol] 3.6 mg/dL 2.5-4.5 [facility] Platelet mean volume Auto (B ld) [Entitic vol]Ordered By: Alta Schmid on 07-31-2023 Platelet mean volume (Bld) [Entitic vol] 8.3 fL 6.3-10.7 [facility] Platelets Auto (Bld) [#/Vol] Ordered By: Alta Schmid on 07-31-2023 Platelets (Bld) [#/Vol] 270 10*3/uL 150-450 [facility] Potassium [Moles/volume] in Serum or PlasmaOrdered By: Alta Schmid on 07-31-2023 Potassium [Moles/Vol] 4.7 mmol/L 3.5-5.1 [facility] Protein Auto test strip (U) [Mass/Vol]Ordered By: Alta Schmid on 07-31-2023 Protein (U) [Mass/Vol] Negative Negative [facility] Protein [Mass/volume] in Uri neOrdered By: Alta Schmid on 07-31-2023 Protein (U) [Mass/Vol] 16 mg/dL 0-9 [facility] RBC Auto (Bld) [#/Vol]Ordere d By: Alta Schmid on 07-31-2023 RBC (Bld) [#/Vol] 4.80 10*6/uL 3.60-5.00 [facility] Serum or plasma anion gap de terminationOrdered By: Alta Schmid on 07-31-2023 Anion gap [Moles/Vol] 12.6 mmol/L 6.0-15.0 [facility] Sodium [Moles/volume] in Ser um or PlasmaOrdered By: Alta Schmid on 07-31-2023 Sodium [Moles/Vol] 139 mmol/L 136-145 [facility] Specific gravity Auto test s trip [...] on 07-31-2023 Urate [Mass/Vol] 9.9 mg/dL 2.3-6.6 [facility] Urea nitrogen [Mass/volume] in Serum or PlasmaOrdered By: Alta Schmid on 07-31-2023 Urea nitrogen [Mass/Vol] 29 mg/dL 7-25 [facility] Urine bacteria detection by automated methodOrdered By: Alta Schmid on 07-31-2023 Bacteria Auto Ql (U) None seen None Seen [facility] Urine clarity by refractomet ry automatedOrdered By: [...] (U) Negative Negative [facility] Urine protein/creatinine rat [...] on 07-31-2023 pH (U) 6.0 [pH] 5.0-9.0 [facility] Basophils Auto (Bld) [#/Vol] Ordered By: Yakelin Staley on 06-22-2023 Basophils (Bld) [#/Vol] 0.1 10*3/uL 0.0-0.2 [facility] Basophils/100 WBC Auto (Bld) Ordered By: Yakelin Staley on 06-22-2023 Basophils/100 WBC (Bld) 0.8 % . F [facility] Eosinophils Auto (Bld) [#/Vo l]Ordered By: Yakelin Staley on 06-22-2023 Eosinophils (Bld) [#/Vol] 0.2 10*3/uL 0.0-0.45 [facility] Eosinophils/100 WBC Auto (Bl d)Ordered By: Yakelin Staley on 06-22-2023 Eosinophils/100 WBC (Bld) 1.7 % . [facility] Erythrocyte distribution wid th Auto (RBC) [Ratio]Ordered By: Yakelin Staley on 06-22-2023 Erythrocyte distribution width (RBC) [Ratio] 15.0 % 11.9-15.3 [facility] Hematocrit Auto (Bld) [Volum e fraction]Ordered By: Yakelin Staley on 06-22-2023 Hematocrit (Bld) [Volume fraction] 42.7 % 34.0-46.4 [facility] Hemoglobin [Mass/volume] in BloodOrdered By: Yakelin Staley on 06-22-2023 Hemoglobin (Bld) [Mass/Vol] 14.5 g/dL 11.8-15.4 [facility] Leukocytes [#/volume] correc janet for nucleated erythrocytes in Blood by Automated counOrdered By: Yakelin Staley on 06-22-2023 WBC corrected for nucl RBC Auto (Bld) [#/Vol] 14.3 10*3/uL 3.8-11.6 [facility] Lymphocytes Auto (Bld) [#/Vo l]Ordered By: Yakelin Staley on 06-22-2023 Lymphocytes (Bld) [#/Vol] 2.6 10*3/uL 1.00-4.8 [facility] Lymphocytes/100 WBC Auto (Bl d)Ordered By: Yakelin Staley on 06-22-2023 Lymphocytes/100 WBC (Bld) 18.0 % . [facility] MCH Auto (RBC) [Entitic mass ]Ordered By: Yakelin Staley on 06-22-2023 MCH (RBC) [Entitic mass] 30.3 pg 24.7-34.3 [facility] MCHC Auto (RBC) [Mass/Vol]Or dered By: Yakelin Staley on 06-22-2023 MCHC (RBC) [Mass/Vol] 33.9 g/dL 32.0-35.0 [facility] MCV Auto (RBC) [Entitic vol] Ordered By: Yakelin Staley on 06-22-2023 MCV (RBC) [Entitic vol] 89.4 fL 80-100 [facility] Monocytes Auto (Bld) [#/Vol] Ordered By: Yakelin Staley on 06-22-2023 Monocytes (Bld) [#/Vol] 0.7 10*3/uL 0.0-0.8 [facility] Monocytes/100 WBC Auto (Bld) Ordered By: Yakelin Staley on 06-22-2023 Monocytes/100 WBC (Bld) 5.2 % . [facility] Neutrophils Auto (Bld) [#/Vo l]Ordered By: Yakelin Staley on 06-22-2023 Neutrophils (Bld) [#/Vol] 10.6 10*3/uL 1.8-7.7 [facility] Neutrophils/100 WBC Auto (Bl d)Ordered By: Yakelin Staley on 06-22-2023 Neutrophils/100 WBC (Bld) 74.3 % . [facility] Nucleated erythrocytes [Pres ence] in Blood by Automated countOrdered By: Yakelin Staley on 06-22-2023 Nucleated RBC Auto Ql (Bld) 0.1 /100{WBC} 0-0.5 [facility] Platelet mean volume Auto (B ld) [Entitic vol]Ordered By: Yakelin Staley on 06-22-2023 Platelet mean volume (Bld) [Entitic vol] 8.3 fL 6.3-10.7 [facility] Platelets Auto (Bld) [#/Vol] Ordered By: Yakelin Staley on 06-22-2023 Platelets (Bld) [#/Vol] 262 10*3/uL 150-450 [facility] RBC Auto (Bld) [#/Vol]Ordere d By: Yakelin Staley on 06-22-2023 RBC (Bld) [#/Vol] 4.77 10*6/uL 3.60-5.00 [facility] WBC Auto (Bld) [#/Vol]Ordere d By: Yakelin Staley on 06-22-2023 WBC (Bld) [#/Vol] 14.3 10*3/uL 3.8-11.6 [facility] Albumin [Mass/volume] in Ser um [...] on 03-04-2023 Bilirubin Ql (U) Negative Negative [facility] Calcium [Mass/volume] in Ser um or PlasmaOrdered By: Alta Schmid on 03-04-2023 Calcium [Mass/Vol] 9.2 mg/dL 8.6-10.3 [facility] Carbon dioxide, total [Moles /volume] in Serum or PlasmaOrdered By: Alta Schmid on 03-04-2023 CO2 [Moles/Vol] 25.4 mmol/L 21.0-31.0 [facility] Chloride [Moles/volume] in S carlos or PlasmaOrdered By: Alta Schmid on 03-04-2023 Chloride [Moles/Vol] 104 mmol/L 98-107 [facility] Color Auto (U)Ordered By: Ab richard Schmid on 03-04-2023 Color (U) Yellow Yellow [facility] Creatinine [Mass/volume] in Serum or PlasmaOrdered By: Alta Schmid on 03-04-2023 Creatinine [Mass/Vol] 1.59 mg/dL 0.60-1.20 [facility] Creatinine [Mass/volume] in UrineOrdered By: Alta Schmid on 03-04-2023 Creatinine (U) [Mass/Vol] 100.0 mg/dL 11.0-20.0 [facility] Erythrocyte distribution wid th Auto (RBC) [Ratio]Ordered By: Alta Schmid on 03-04-2023 Erythrocyte distribution width (RBC) [Ratio] 14.8 % 11.9-15.3 [facility] Glucose [Mass/volume] in Ser um or PlasmaOrdered By: Alta Schmid on 03-04-2023 Glucose [Mass/Vol] 232 mg/dL 70-100 [facility] Comment on above: ADA recommended [...] Ketones (U) [Mass/Vol] Negative Negative [facility] Laboratory - UrinalysisOrder ed By: [...] 03-04-2023 MCHC (RBC) [Mass/Vol] 34.0 g/dL 32.0-35.0 [facility] MCV Auto (RBC) [Entitic vol] Ordered By: Alta Schmid on 03-04-2023 MCV (RBC) [Entitic vol] 91.6 fL 80-100 [facility] Magnesium [Mass/volume] in S carlos or PlasmaOrdered By: Alta Schmid on 03-04-2023 Magnesium [Mass/Vol] 1.4 mg/dL 1.9-2.7 [facility] Nitrite Test strip Ql (U)Ord ered By: Alta Schmid on 03-04-2023 Nitrite Ql (U) Negative Negative [facility] No Panel InformationOrdered By: Alta Schmid on 03-04-2023 Estimated GFR (CKD-EPI) 35.395 mL/Min [facility] Creatinine Clearance (Chem N/A [facility] Parathyrin.intact [Mass/volu me] in Serum or PlasmaOrdered By: Alta Schmid on 03-04-2023 Parathyrin.intact [Mass/Vol] 87.0 pg/mL [facility] Phosphate [Mass/volume] in S carlos or PlasmaOrdered By: Alta Schmid on 03-04-2023 Phosphate [Mass/Vol] 4.0 mg/dL 3.7-7.2 [facility] Platelet mean volume Auto (B ld) [Entitic vol]Ordered By: Alta Schmid on 03-04-2023 Platelet mean volume (Bld) [Entitic vol] 8.5 fL 6.3-10.7 [facility] Platelets Auto (Bld) [#/Vol] Ordered By: Alta Schmid on 03-04-2023 Platelets (Bld) [#/Vol] 327 10*3/uL 150-450 [facility] Potassium [Moles/volume] in Serum or PlasmaOrdered By: Alta Schmid on 03-04-2023 Potassium [Moles/Vol] 4.9 mmol/L 3.5-5.1 [facility] Protein Auto test strip (U) [Mass/Vol]Ordered By: Alta Schmid on 03-04-2023 Protein (U) [Mass/Vol] Negative Negative [facility] Protein [Mass/volume] in Uri neOrdered By: Alta Schmid on 03-04-2023 Protein (U) [Mass/Vol] 14 mg/dL 0-9 [facility] RBC Auto (Bld) [#/Vol]Ordere d By: Alta Schmid on 03-04-2023 RBC (Bld) [#/Vol] 4.65 10*6/uL 3.60-5.00 [facility] Serum or plasma anion gap de terminationOrdered By: Alta Schmid on 03-04-2023 Anion gap [Moles/Vol] 13.5 mmol/L 6.0-15.0 [facility] Sodium [Moles/volume] in Ser um or PlasmaOrdered By: Alta Schmid on 03-04-2023 Sodium [Moles/Vol] 138 mmol/L 136-145 [facility] Specific gravity Auto test s trip [...] on 03-04-2023 Urate [Mass/Vol] 10.7 mg/dL 2.3-6.6 [facility] Urea nitrogen [Mass/volume] in Serum or PlasmaOrdered By: Alta Schmid on 03-04-2023 Urea nitrogen [Mass/Vol] 42 mg/dL 7-25 [facility] Urine bacteria detection by automated methodOrdered By: Alta Schmid on 03-04-2023 Bacteria Auto Ql (U) None seen None Seen [facility] Urine clarity by refractomet ry automatedOrdered By: [...] in adult Healthy Weight Tips; Status:Complete; Done: [id number] Some eating tips that can help you lose weight.; Status:Complete; Done: [id number] SocHx: Current smoker Tobacco Use Screening; Status:Complete; Done: [id number] You need to stop smoking. Though it is not easy, more than half of all adult smokers have quit. We encourage you to write down all the reasons you should quit smoking and set a quit date for yourself. Ask us how we can help. You may also call 2-067-KFKY-NOW for free resources and assistance.; Status:Complete; Done: [id number] Patient Instructions Please bring all medicines, vitamins, [...] negative for complaint. Vitals Vital Signs Recorded: [id number] 08:41AM Heart Rate66, R Radial [id number], RUE, Sitting Mycpkcwyj11, RUE, Sitting Height5 ft 3 in Sgumyn763 lb BMI Blajcznzoc51.95 kg/m2 BSA Calculated1.88 Tobacco Usea) Yes Patient [...] JVP w (more content not included)... Normal Issue Tobacco Screening.on 023 Fall risk assessment a) No falls within the last year [facility] 250 DO Work Phone: Tobacco use status CPHS a) Yes M [facility] [facility] 250 DO Work Phone: Tobacco Screening. Yes [facility] [facility] 250 DO Work Phone: CBC AUTO DIFFon 06-28-2022 BASO # 0.1 103/ul Normal 0.0-0.1 [facility] Comment on above: Performed By: #### C BC #### [facility] [address] [place] [address] Dr. Briana Dillard Basophils/100 WBC (Bld) 0.8 % Normal 0.2-2.0 [facility] Comment on above: Performed By: #### C BC #### [facility] [address] [place] [address] Dr. Briana Dillard EO # 0.3 103/ul Normal 0.0-0.7 [facility] Comment on above: Performed By: #### C BC #### [facility] [address] [place] [address] Dr. Briana Dillard Eosinophils/100 WBC (Bld) 2.5 % Normal 0.9-7.0 [facility] Comment on above: Performed By: #### C BC #### [facility] [address] [place] [address] Dr. Briana Dillard Erythrocyte distribution width (RBC) [Ratio] 14.8 % Normal 11.0-15.0 [facility] Comment on above: Performed By: #### C BC #### [facility] [address] [place] [address] Dr. Briana Dillard Hematocrit (Bld) [Volume fraction] 43.8 % Normal 36.0-48.0 [facility] Comment on above: Performed By: #### C BC #### [facility] [address] [place] [address] Dr. Briana Dillard Hemoglobin (Bld) [Mass/Vol] 14.5 g/dL Normal 12.0-16.0 [facility] Comment on above: Performed By: #### C BC #### [facility] [address] [address] [address] Briana Dillard IG # 0.13 10e3/ul Critically high 0.00-0.03 [facility] Comment on above: Performed By: #### C BC #### [facility] [address] [place] [address] Dr. Briana Dillard IG % 1.0 % Critically high 0.0-0.5 [facility] Comment on above: Performed By: #### C BC #### [facility] [address] [place] [address] Dr. Briana Dillard LYMPH # 2.5 103/ul Normal 1.2-3.8 [facility] Comment on above: Performed By: #### C BC #### [facility] [address] [place] [address] Dr. Briana Dillard Lymphocytes/100 WBC (Bld) 19.1 % Critically low 20.5-60.0 [facility] Comment on above: Performed By: #### C BC #### [facility] [address] [place] [address] Dr. Briana Dillard MANUAL DIFF REQ NO Normal [facility] Comment on above: Performed By: #### C BC #### [facility] [address] [place] [address] Dr. Briana Dillard MCH (RBC) [Entitic mass] 30.8 pg Normal 26.7-34.0 [facility] Comment on above: Performed By: #### C BC #### [facility] [address] [place] [address] Dr. Briana Dillard MCHC (RBC) [Mass/Vol] 33.1 g/dL Normal 29.9-35.2 [facility] Comment on above: Performed By: #### C BC #### [facility] [address] [place] [address] Dr. Briana Dillard MCV (RBC) [Entitic vol] 93.0 fL Normal 81.0-99.0 [facility] Comment on above: Performed By: #### C BC #### [facility] [address] [place], [place] [id number] Dr. Briana Dillard MONO # 0.7 103/ul Normal 0.3-0.8 [facility] Comment on above: Performed By: #### C BC #### [facility] [address] [place] [address] Dr. Briana Dillard Monocytes/100 WBC (Bld) 5.7 % Normal 1.7-12.0 [facility] Comment on above: Performed By: #### C BC #### [facility] [address] [place] [address] Dr. Briana Dillard NEUT # 9.2 103/ul Critically high 1.4-6.5 [facility] Comment on above: Performed By: #### C BC #### [facility] [address] [place] [address] Dr. Briana Dillard Neutrophils/100 WBC (Bld) 70.9 % Normal 43.0-75.0 [facility] Comment on above: Performed By: #### C BC #### [facility] [address] [place] [address] Dr. Briana Dillard Platelet mean volume (Bld) [Entitic vol] 10.4 fL Normal 9.5-13.5 [facility] Comment on above: Performed By: #### C BC #### [facility] [address] [place] [address] Dr. Briana Dillard PLT 262 103/ul Normal 150-450 [facility] Comment on above: Performed By: #### C BC #### [facility] [address] [place] [address] Dr. Briana Dillard RBC 4.71 106/ul Normal 4.20-5.40 [facility] Comment on above: Performed By: #### C BC #### [facility] [address] [place] [address] Dr. Briana Dillard WBC 13.0 103/ul Critically high 4.0-11.0 [facility] Comment on above: Performed By: #### C BC #### [facility] [address] [place] [address] Dr. Briana Dillard DIRECT LDLon 06-28-2022 Cholesterol in LDL [Mass/Vol] 90 mg/dL Normal [facility] Comment on above: Performed By: #### C GEOVANY COLMENARES, BNP #### [facility] [address] [address] [address] Briana Dillard DLDL NORMAL SEE BELOW Normal [facility] Comment on above: Result Comment: <100 mg/dl OPTIMAL 100 - 129 mg/dl NEAR OR ABOVE OPTIMAL 130 - 159 mg/dl BORDERLINE HIGH 160 - 189 mg/dl HIGH >190 mg/dl VERY HIGH Performed By: #### C GEOVANY COLMENARES, BNP #### [facility] [address] [address] [address] Briana Dillard GLYCOHEMOGLOBIN A1Con 2022 ADA RECOMMENDATION SEE BELOW Normal [facility] Comment on above: Result Comment: ADA RECOMMENDED LIMIT 4.0 - 6.0 ADA THERAPEUTIC TARGET < 7.0 ACTION SUGGESTED > 7.0 Performed By: #### C GEOVANY COLMENARES, BNP #### [facility] [address] [address] [address] Briana Dillard Glucose [Mass/Vol] 229 mg/dL Normal [facility] Comment on above: Performed By: #### C GEOVANY COLMENARES, BNP #### [facility] [address] [address] [address] Briana Dillard HbA1c (Bld) [Mass fraction] 9.6 % Critically high 4.5-6.2 [facility] Comment on above: Performed By: #### C GEOVANY COLMENARES, BNP #### [facility] [address] [address] [address] Briana Dillard LIPID PROFILEon 06-28-2022 CHOL-HDL RATIO NORM SEE BELOW Normal [facility] Comment on above: Result Comment: 3.3 - 4.4 LOW RISK 4.4 - 7.1 AVERAGE RISK 7.1 - 11.0 MODERATE RISK >11.0 HIGH RISK Performed By: #### C GEOVANY COLMENARES, BNP #### [facility] [address] [address] [address] Briana Dillard Cholesterol [Mass/Vol] 219 mg/dL Critically high <=200 [facility] Comment on above: Performed By: #### C MP, CMADM, BNP #### [facility] [address] [address] [address] Briana Dillard Cholesterol in HDL [Mass/Vol] 32 mg/dL Critically low 40-60 [facility] Comment on above: Performed By: #### C MP, CMADM, BNP #### [facility] [address] [address] [address] Briana Dillard Cholesterol.total/Choles terol in HDL [Mass ratio] 6.8 {ratio} Normal [facility] Comment on above: Performed By: #### C MP, CMADM, BNP #### [facility] [address] [address] [address] Briana Dillard HDL NORMAL > or = 60 mg/dl - LOW CARDIOVASCULAR RISK <40 mg/dl - HIGH CARDIOVASCULAR RISK Normal [facility] Comment on above: Performed By: #### C DARRIAN, CMADM, BNP #### [facility] [address] [address] [address] Briana Dillard LDL CALC NORMAL SEE BELOW Normal [facility] Comment on above: Result Comment: <100 mg/dl OPTIMAL 100 - 129 mg/dl NEAR OR ABOVE OPTIMAL 130 - 159 mg/dl BORDERLINE HIGH 160 - 189 mg/dl HIGH >190 mg/dl VERY HIGH Performed By: #### C MP, CMADM, BNP #### [facility] [address] [address] [address] Briana Dillard Triglyceride [Mass/Vol] 585 mg/dL Critically high <=150 [facility] Comment on above: Performed By: #### C MP, CMADM, BNP #### [facility] [address] [address] [address] Briana Dillard VLDL CALC 117.0 mg/dL Normal [facility] Comment on above: Performed By: #### C MP, CMADM, BNP #### [facility] [address] [address] [address] Briana Dillard PROF 14(COMP METB)on 023 Albumin [Mass/Vol] 3.6 g/dL Normal 3.4-5.0 [facility] Comment on above: Performed By: #### L IPID, CMP, DLDL #### [facility] [address] [address] [address] Briana Dillard Albumin/Globulin [Mass ratio] 0.9 {ratio} Normal [facility] Comment on above: Performed By: #### L IPID, CMP, DLDL #### [facility] [address] [place] [address] Dr. Briana Dillard ALP [Catalytic activity/Vol] 117 U/L Critically high 46-116 [facility] Comment on above: Performed By: #### L IPID, CMP, DLDL #### [facility] [address] [place] [address] Dr. Briana Dillard ALT [Catalytic activity/Vol] 42 U/L Normal 14-59 [facility] Comment on above: Performed By: #### L IPID, CMP, DLDL #### [facility] [address] [place] [address] Dr. Briana Dillard Anion gap [Moles/Vol] 15.4 mmol/L Normal [facility] Comment on above: Performed By: #### L IPID, CMP, DLDL #### [facility] [address] [place] [address] Dr. Briana Dillard AST [Catalytic activity/Vol] 29 U/L Normal 15-37 [facility] Comment on above: Performed By: #### L IPID, CMP, DLDL #### [facility] [address] [place] [address] Dr. Briana Dillard Bilirubin [Mass/Vol] 0.4 mg/dL Normal 0.2-1.0 [facility] Comment on above: Performed By: #### L IPID, CMP, DLDL #### [facility] [address] [place] [address] Dr. Briana Dillard Calcium [Mass/Vol] 10.2 mg/dL Critically high 8.5-10.1 [facility] Comment on above: Performed By: #### L IPID, CMP, DLDL #### [facility] [address] [address] [address] Briana Dillard Chloride [Moles/Vol] 100 mmol/L Normal 98-107 [facility] Comment on above: Performed By: #### L IPID, CMP, DLDL #### [facility] [address] [address] [address] Briana Dillard CO2 [Moles/Vol] 27.3 mmol/L Normal 21.0-32.0 [facility] Comment on above: Performed By: #### L IPID, CMP, DLDL #### [facility] [address] [address] [address] Briana Dillard Creatinine [Mass/Vol] 1.40 mg/dL Critically high 0.55-1.02 [facility] Comment on above: Performed By: #### L IPID, CMP, DLDL #### [facility] [address] [place] [address] Dr. Briana Dillard EGFR-AF CANADIAN 46 mL/min/1.73m2 Critically low >=60 [facility] Comment on above: Performed By: #### L IPID, CMP, DLDL #### [facility] [address] [address] [address] Briana Dillard EGFR-NON AF CANADIAN 38 mL/min/1.73m2 Critically low >=60 [facility] Comment on above: Performed By: #### L IPID, CMP, DLDL #### [facility] [address] [address] [address] Briana Dillard Globulin (S) [Mass/Vol] 3.9 g/dL Normal [facility] Comment on above: Performed By: #### L IPID, CMP, DLDL #### [facility] [address] [address] [address] Briana Dillard Glucose [Mass/Vol] 295 mg/dL Critically high 74-106 [facility] Comment on above: Performed By: #### L IPID, CMP, DLDL #### [facility] [address] [address] [address] Briana Dillard Potassium [Moles/Vol] 4.7 mmol/L Normal 3.5-5.1 [facility] Comment on above: Performed By: #### L IPID, CMP, DLDL #### [facility] [address] [place] [address] Dr. Briana Dillard Protein [Mass/Vol] 7.5 g/dL Normal 6.4-8.2 [facility] Comment on above: Performed By: #### L IPID, CMP, DLDL #### [facility] [address] [place] [address] Dr. Briana Dillard Sodium [Moles/Vol] 138 mmol/L Normal 136-145 [facility] Comment on above: Performed By: #### L IPID, CMP, DLDL #### [facility] [address] [place] [address] Dr. Briana Dillard Urea nitrogen [Mass/Vol] 34.0 mg/dL Critically high 7.0-18 .0 [facility] Comment on above: Performed By: #### L IPID, CMP, DLDL #### [facility] [address] [place] [address] Dr. Briana Dillard Urea nitrogen/Creatinine [Mass ratio] 24.3 mg/mg Normal [facility] Comment on above: Performed By: #### L IPID, CMP, DLDL #### [facility] [address] [place] [address] Dr. Briana Dillard UA RANDOM W/MICROSCOPICon BACTERIA TRACE Abnormal NONE SEEN [facility] Comment on above: Performed By: #### C MP, CMADM, BNP #### [facility] [address] [place] [address] Dr. Briana Dillard Bilirubin Ql (U) Negative Normal NEGATIVE [facility] Comment on above: Performed By: #### C MP, CMADM, BNP #### [facility] [address] [place] [address] Dr. Briana Dillard CAST NONE SEEN Normal NONE SEEN [facility] Comment on above: Performed By: #### C MP, CMADM, BNP #### [facility] [address] [place] [address] Dr. Briana Dillard Clarity (U) CLEAR Normal CLEAR [facility] Comment on above: Performed By: #### C MP, CMADM, BNP #### [facility] [address] [address] [address] Briana Dillard Color (U) LT. YELLOW Normal YELLOW [facility] Comment on above: Performed By: #### C MP, CMADM, BNP #### [facility] [address] [address] [address] Briana Dillard Crystals LM Nom (Urine sed) NONE SEEN Normal NONE SEEN [facility] Comment on above: Performed By: #### C MP, CMADM, BNP #### [facility] [address] [address] [address] Briana Dillard Epithelial cells LM Ql (Urine sed) MANY Abnormal NONE SEEN /RARE [facility] Comment on above: Performed By: #### C MP, CMADM, BNP #### [facility] [address] [place] [address] Dr. Briana Dillard Glucose Ql (U) Negative Normal NEGATIVE [facility] Comment on above: Performed By: #### C MP, CMADM, BNP #### [facility] [address] [address] [address] Briana Dillard Hemoglobin Ql (U) Negative Normal NEGATIVE [facility] Comment on above: Performed By: #### C MP, CMADM, BNP #### [facility] [address] [address] [address] Briana Dillard Ketones Ql (U) Negative Normal NEGATIVE [facility] Comment on above: Performed By: #### C MP, CMADM, BNP #### [facility] [address] [address] [address] Briana Dillard LEUKOCYTES TRACE Abnormal NEGATIVE [facility] Comment on above: Performed By: #### C MP, CMADM, BNP #### [facility] [address] [address] [address] Briana Dillard MUCOUS NONE SEEN Normal NONE SEEN [facility] Comment on above: Performed By: #### C MP, CMADM, BNP #### [facility] [address] [address] [address] Briana Dillard Nitrite Ql (U) Negative Normal NEGATIVE [facility] Comment on above: Performed By: #### C MP, CMADM, BNP #### [facility] [address] [place] [address] Dr. Briana Dillard pH (U) 6.0 [pH] Normal 5-9 [facility] Comment on above: Performed By: #### C MP, CMADM, BNP #### [facility] [address] [address] [address] Briana Dillard RBC 0-2 Normal 0-2 [facility] Comment on above: Performed By: #### C MP, CMADM, BNP #### [facility] [address] [place] [address] Dr. Briana Dillard SPEC GRAVITY 1.010 Normal 1.005-<=1.025 [facility] Comment on above: Performed By: #### C MP, CMADM, BNP #### [facility] [address] [place] [address] Dr. Briana Dillard UA PROTEIN TRACE Normal NEGATIVE/ TRACE [facility] Comment on above: Performed By: #### C MP, CMADM, BNP #### [facility] [address] [place] [address] Dr. Briana Dillard Urobilinogen Qn (U) 0.2 {Samuel'U}/dL Normal 0.2 - 1. 0 [facility] Comment on above: Performed By: #### C MP, CMADM, BNP #### [facility] [address] [place] [address] Dr. Briana Dillard WBC 2-5 Abnormal NONE SEEN [facility] Comment on above: Performed By: #### C MP, CMADM, BNP #### [facility] [address] [place] [address] Dr. Briana Dillard URINE T PROTEIN CREAT RATIOo n 06-28-2022 Protein (U) [Mass/Vol] 30.3 mg/dL Critically high <=12.0 [facility] Comment on above: Performed By: #### C MP, CMADM, BNP #### [facility] [address] [address] [address] Briana Dillard UR PROT CREAT RAT 0.80 Normal [facility] Comment on above: Performed By: #### C KYLE COLMENARESDM, BNP #### [facility] [address] [address] [address] Briana Dillard URINE CREAT 38.11 mg/dL Normal 20.00-300.00 [facility] Comment on above: Performed By: #### C GEOVANY COLMENARES, BNP #### [facility] [address] [address] [address] Briana Dillard POINT OF CARE GLUCOSEon 05-05 Glucose [Mass/Vol] 296 mg/dL Critically high 74-106 [facility] Comment on above: Performed By: #### C GEOVANY COLMENARES, BNP #### [facility] [address] [place] [address] Dr. Briana Dillard POINT OF CARE GLUCOSEon 05-04 Glucose [Mass/Vol] 312 mg/dL Critically high -106 [facility] Comment on above: Performed By: #### C BC #### [facility] [address] [address] [address] Briana Dillard GLYCOHEMOGLOBIN A1Con 2021 ADA RECOMMENDATION SEE BELOW Normal [facility] Comment on above: Result Comment: ADA RECOMMENDED LIMIT 4.0 - 6.0 ADA THERAPEUTIC TARGET < 7.0 ACTION SUGGESTED > 7.0 Performed By: #### A 1C #### [facility] [address] [address] [address] Briana Dillard Glucose [Mass/Vol] 223 mg/dL Normal [facility] Comment on above: Performed By: #### A 1C #### [facility] [address] [place] [address] Dr. Briana Dillard HbA1c (Bld) [Mass fraction] 9.4 % Critically high 4.5-6.2 [facility] Comment on above: Performed By: #### A 1C #### [facility] [address] [place] [address] Dr. Briana Dillard CBC AUTO DIFFon 11-29-2021 BASO # 0.1 103/ul Normal 0.0-0.1 [facility] Comment on above: Performed By: #### C BC #### [facility] [address] [place] [address] Dr. Briana Dillard Basophils/100 WBC (Bld) 0.9 % Normal 0.2-2.0 [facility] Comment on above: Performed By: #### C BC #### [facility] [address] [place] [address] Dr. Briana Dillard EO # 0.3 103/ul Normal 0.0-0.7 [facility] Comment on above: Performed By: #### C BC #### [facility] [address] [place] [address] Dr. Briana Dillard Eosinophils/100 WBC (Bld) 2.7 % Normal 0.9-7.0 [facility] Comment on above: Performed By: #### C BC #### [facility] [address] [place] [address] Dr. Briana Dillard Erythrocyte distribution width (RBC) [Ratio] 15.8 % Critically high 11.0-15.0 [facility] Comment on above: Performed By: #### C BC #### [facility] [address] [place] [address] Dr. Briana Dillard Hematocrit (Bld) [Volume fraction] 39.4 % Normal 36.0-48.0 [facility] Comment on above: Performed By: #### C BC #### [facility] [address] [place] [address] Dr. Briana Dillard Hemoglobin (Bld) [Mass/Vol] 13.0 g/dL Normal 12.0-16.0 [facility] Comment on above: Performed By: #### C BC #### [facility] [address] [place] [address] Dr. Briana Dillard IG # 0.12 10e3/ul Critically high 0.00-0.03 [facility] Comment on above: Performed By: #### C BC #### [facility] [address] [place] [address] Dr. Briana Dillard IG % 1.1 % Critically high 0.0-0.5 [facility] Comment on above: Performed By: #### C BC #### [facility] [address] [place] [address] Dr. Briana Dillard LYMPH # 2.7 103/ul Normal 1.2-3.8 [facility] Comment on above: Performed By: #### C BC #### [facility] [address] [place] [address] Dr. Briana Dillard Lymphocytes/100 WBC (Bld) 25.6 % Normal 20.5-60.0 [facility] Comment on above: Performed By: #### C BC #### [facility] [address] [place] [address] Dr. Briana Dillard MANUAL DIFF REQ NO Normal [facility] Comment on above: Performed By: #### C BC #### [facility] [address] [place] [address] Dr. Briana Dillard MCH (RBC) [Entitic mass] 30.9 pg Normal 26.7-34.0 [facility] Comment on above: Performed By: #### C BC #### [facility] [address] [place] [address] Dr. Briana Dillard MCHC (RBC) [Mass/Vol] 33.0 g/dL Normal 29.9-35.2 [facility] Comment on above: Performed By: #### C BC #### [facility] [address] [place] [address] Dr. Briana iDllard MCV (RBC) [Entitic vol] 93.6 fL Normal 81.0-99.0 [facility] Comment on above: Performed By: #### C BC #### [facility] [address] [place] [address] Dr. Briana Dillard MONO # 0.8 103/ul Normal 0.3-0.8 [facility] Comment on above: Performed By: #### C BC #### [facility] [address] [place] [address] Dr. Briana Dillard Monocytes/100 WBC (Bld) 7.9 % Normal 1.7-12.0 [facility] Comment on above: Performed By: #### C BC #### [facility] [address] [place] [address] Dr. Briana Dillard NEUT # 6.6 103/ul Critically high 1.4-6.5 [facility] Comment on above: Performed By: #### C BC #### [facility] [address] [place] [address] Dr. Briana Dillard Neutrophils/100 WBC (Bld) 61.8 % Normal 43.0-75.0 [facility] Comment on above: Performed By: #### C BC #### [facility] [address] [place] [address] Dr. Briana Dillard Platelet mean volume (Bld) [Entitic vol] 10.3 fL Normal 9.5-13.5 [facility] Comment on above: Performed By: #### C BC #### [facility] [address] [place] [address] Dr. Briana Dillard PLT 234 103/ul Normal 150-450 [facility] Comment on above: Performed By: #### C BC #### [facility] [address] [place] [address] Dr. Briana Dillard RBC 4.21 106/ul Normal 4.20-5.40 [facility] Comment on above: Performed By: #### C BC #### [facility] [address] [place] [address] Dr. Briana Dillard WBC 10.6 103/ul Normal 4.0-11.0 [facility] Comment on above: Performed By: #### C BC #### [facility] [address] [place] [address] Dr. Briana Dillard GLYCOHEMOGLOBIN A1Con 2021 ADA RECOMMENDATION SEE BELOW Normal [facility] Comment on above: Result Comment: ADA RECOMMENDED LIMIT 4.0 - 6.0 ADA THERAPEUTIC TARGET < 7.0 ACTION SUGGESTED > 7.0 Performed By: #### C BC #### [facility] [address] [place] [address] Dr. Briana Dillard Glucose [Mass/Vol] 220 mg/dL Normal [facility] Comment on above: Performed By: #### C BC #### [facility] [address] [address] [address] Briana Dillard HbA1c (Bld) [Mass fraction] 9.3 % Critically high 4.5-6.2 [facility] Comment on above: Performed By: #### C BC #### [facility] [address] [address] [address] Briana Dillard LIPID PROFILEon 11-29-2021 CHOL-HDL RATIO NORM SEE BELOW Normal [facility] Comment on above: Result Comment: 3.3 - 4.4 LOW RISK 4.4 - 7.1 AVERAGE RISK 7.1 - 11.0 MODERATE RISK >11.0 HIGH RISK Performed By: #### C MP, CMADM, BNP #### [facility] [address] [address] [address] Briana Dillard Cholesterol [Mass/Vol] 135 mg/dL Normal <=200 [facility] Comment on above: Performed By: #### C MP, CMADM, BNP #### [facility] [address] [address] [address] Briana Dillard Cholesterol in HDL [Mass/Vol] 44 mg/dL Normal 40-60 [facility] Comment on above: Performed By: #### C MP, CMADM, BNP #### [facility] [address] [address] [address] Briana Dillard Cholesterol in LDL [Mass/Vol] 60.2 mg/dL Normal [facility] Comment on above: Performed By: #### C MP, CMADM, BNP #### [facility] [address] [address] [address] Briana Dillard Cholesterol.total/Choles terol in HDL [Mass ratio] 3.1 {ratio} Normal [facility] Comment on above: Performed By: #### C MP, CMADM, BNP #### [facility] [address] [address] [address] Briana Dillard HDL NORMAL > or = 60 mg/dl - LOW CARDIOVASCULAR RISK <40 mg/dl - HIGH CARDIOVASCULAR RISK Normal [facility] Comment on above: Performed By: #### C MP, CMADM, BNP #### [facility] [address] [address] [address] Briana Dillard LDL CALC NORMAL SEE BELOW Normal [facility] Comment on above: Result Comment: <100 mg/dl OPTIMAL 100 - 129 mg/dl NEAR OR ABOVE OPTIMAL 130 - 159 mg/dl BORDERLINE HIGH 160 - 189 mg/dl HIGH >190 mg/dl VERY HIGH Performed By: #### C MP, CMADM, BNP #### [facility] [address] [address] [address] Briana Dillard Triglyceride [Mass/Vol] 154 mg/dL Critically high <=150 [facility] Comment on above: Performed By: #### C MP, CMADM, BNP #### [facility] [address] [address] [address] Briana Dillard VLDL CALC 30.8 mg/dL Normal [facility] Comment on above: Performed By: #### C MP, CMADM, BNP #### [facility] [address] [address] [address] Briana Dillard POINT OF CARE GLUCOSEon 11-02 Glucose [Mass/Vol] 271 mg/dL Critically high -106 [facility] Comment on above: Performed By: #### C BC #### [facility] [address] [address] [address] Briana Dillard Glucose [Mass/Vol] 180 mg/dL Critically high -106 [facility] Comment on above: Performed By: #### C MP, CMADM, BNP #### [facility] [address] [address] [address] Briana Dillard BNPon 11-28-2021 Natriuretic peptide B (Bld) [Mass/Vol] 86.0 pg/mL Normal <=900.0 [facility] Comment on above: Performed By: #### C MP, CMADM, BNP #### [facility] [address] [address] [address] Briana Dillard CARDIAC TANIA ADMITon 022 CK [Catalytic activity/Vol] 52 U/L Normal 26-192 [facility] Comment on above: Performed By: #### C MP, CMADM, BNP #### [facility] [address] [place] [address] Dr. Briana Dillard CK.MB [Mass/Vol] 0.65 ng/mL Normal <=3.60 [facility] Comment on above: Performed By: #### C MP, CMADM, BNP #### [facility] [address] [place] [address] Dr. Briana Dillard HSTROP 4.8 pg/mL Normal 4.0-51.3 [facility] Comment on above: Result Comment: CUT- OFF POINTS HAVE BEEN ESTABLISHED BASED ON THE FOURTH UNIVERSAL DEFINITIONS OF MYOCARDIAL INFARCTION. THE UPPER REFERENCE LIMIT (URL) OF TROPONIN, DEFINED THE 99TH PERCENTILE OF cTnI DISTRIBUTION IN A REFERENCE POPULATION, HAS BEEN CONFIRMED THE DECISION THRESHOLD FOR DE DIAGNOSIS. Performed By: #### C MP, CMADM, BNP #### [facility] [address] [place] [address] Dr. Briana Dillard YONIS 47 ng/mL Normal 9-82 [facility] Comment on above: Performed By: #### C MP, CMADM, BNP #### [facility] [address] [place] [address] Dr. Briana Dillard CBC AUTO DIFFon 11-28-2021 BASO # 0.1 103/ul Normal 0.0-0.1 [facility] Comment on above: Performed By: #### C BC #### [facility] [address] [place] [address] Dr. Briana Dillard Basophils/100 WBC (Bld) 0.8 % Normal 0.2-2.0 [facility] Comment on above: Performed By: #### C BC #### [facility] [address] [place] [address] Dr. Briana Dillard EO # 0.2 103/ul Normal 0.0-0.7 [facility] Comment on above: Performed By: #### C BC #### [facility] [address] [place] [address] Dr. Briana Dillard Eosinophils/100 WBC (Bld) 1.4 % Normal 0.9-7.0 [facility] Comment on above: Performed By: #### C BC #### [facility] [address] [place] [address] Dr. Briana Dillard Erythrocyte distribution width (RBC) [Ratio] 15.8 % Critically high 11.0-15.0 [facility] Comment on above: Performed By: #### C BC #### [facility] [address] [place] [address] Dr. Briana Dillard Hematocrit (Bld) [Volume fraction] 42.2 % Normal 36.0-48.0 [facility] Comment on above: Performed By: #### C BC #### [facility] [address] [place] [address] Dr. Briana Dillard Hemoglobin (Bld) [Mass/Vol] 14.3 g/dL Normal 12.0-16.0 [facility] Comment on above: Performed By: #### C BC #### [facility] [address] [place] [address] Dr. Briana Dillard IG # 0.14 10e3/ul Critically high 0.00-0.03 [facility] Comment on above: Performed By: #### C BC #### [facility] [address] [place] [address] Dr. Briana Dillard IG % 1.1 % Critically high 0.0-0.5 [facility] Comment on above: Performed By: #### C BC #### [facility] [address] [place] [address] Dr. Briana Dillard LYMPH # 1.9 103/ul Normal 1.2-3.8 [facility] Comment on above: Performed By: #### C BC #### [facility] [address] [place] [address] Dr. Briana Dillard Lymphocytes/100 WBC (Bld) 14.0 % Critically low 20.5-60.0 [facility] Comment on above: Performed By: #### C BC #### [facility] [address] [place] [address] Dr. Briana Dillard MANUAL DIFF REQ NO Normal [facility] Comment on above: Performed By: #### C BC #### [facility] [address] [place] [address] Dr. Briana Dillard MCH (RBC) [Entitic mass] 31.2 pg Normal 26.7-34.0 [facility] Comment on above: Performed By: #### C BC #### [facility] [address] [place] [address] Dr. Briana Dillard MCHC (RBC) [Mass/Vol] 33.9 g/dL Normal 29.9-35.2 [facility] Comment on above: Performed By: #### C BC #### [facility] [address] [place] [address] Dr. Briana Dillard MCV (RBC) [Entitic vol] 92.1 fL Normal 81.0-99.0 [facility] Comment on above: Performed By: #### C BC #### [facility] [address] [place] [address] Dr. Briana Dillard MONO # 1.1 103/ul Critically high 0.3-0.8 [facility] Comment on above: Performed By: #### C BC #### [facility] [address] [place] [address] Dr. Briana Dillard Monocytes/100 WBC (Bld) 8.0 % Normal 1.7-12.0 [facility] Comment on above: Performed By: #### C BC #### [facility] [address] [place] [address] Dr. Briana Dillard NEUT # 9.9 103/ul Critically high 1.4-6.5 [facility] Comment on above: Performed By: #### C BC #### [facility] [address] [place] [address] Dr. Briana Dillard Neutrophils/100 WBC (Bld) 74.7 % Normal 43.0-75.0 [facility] Comment on above: Performed By: #### C BC #### [facility] [address] [place] [address] Dr. Briana Dillard Platelet mean volume (Bld) [Entitic vol] 10.1 fL Normal 9.5-13.5 [facility] Comment on above: Performed By: #### C BC #### [facility] [address] [address] [address] Briana Dillard PLT 241 103/ul Normal 150-450 [facility] Comment on above: Performed By: #### C BC #### [facility] [address] [address] [address] Briana Dillard RBC 4.58 106/ul Normal 4.20-5.40 [facility] Comment on above: Performed By: #### C BC #### [facility] [address] [address] [address] Briana Dillard WBC 13.2 103/ul Critically high 4.0-11.0 [facility] Comment on above: Performed By: #### C BC #### [facility] [address] [place] [address] Dr. Briana Dillard CTA CHEST WO W CONon -28-2 022 CTA CHEST WO W CON EXAMINATION: [...] NADJA KEMP Date: 2021-11-28 13:10 Normal [facility] Covid-19 PCR (CVDTB)on 11-02 SARS-CoV-2 (COVID-19) RNA ANTOINE+probe Ql (Unsp spec) Not detected Normal NOT DETECTED [facility] Comment on above: Result Comment: When diagnostic [...] for this test is supported by the [place] of [employer] and Human Service's declaration that [...] By: #### C MP, CMADM, BNP #### [facility] [address] [place] [address] Dr. Briana Dillard D-DIMERon 11-28-2021 D-DIMER 0.77 mg/L FEU Critically high <=0.59 [facility] Comment on above: Performed By: #### P T, PTT, DDIM #### [facility] [address] [place] [address] Dr. Briana Dillard D-DIMER COMMENTS SEE BELOW Normal [facility] Comment on above: Result Comment: Incr eases [...] By: #### P T, PTT, DDIM #### [facility] [address] [address] [address] Briana Dillard POINT OF CARE GLUCOSEon 11-02 Glucose [Mass/Vol] 213 mg/dL Critically high 74-106 [facility] Comment on above: Performed By: #### P OCGLUC #### [facility] [address] [address] [address] Briana Dillard Glucose [Mass/Vol] 255 mg/dL Critically high 74-106 [facility] Comment on above: Performed By: #### C MP, CMADM, BNP #### [facility] [address] [place] [address] Dr. Briana Dillard PROF 14(COMP METB)on 022 Albumin [Mass/Vol] 3.4 g/dL Normal 3.4-5.0 [facility] Comment on above: Performed By: #### C MP, CMADM, BNP #### [facility] [address] [place] [address] Dr. Briana Dillard Albumin/Globulin [Mass ratio] 0.9 {ratio} Normal [facility] Comment on above: Performed By: #### C MP, CMADM, BNP #### [facility] [address] [place] [address] Dr. Briana Dillard ALP [Catalytic activity/Vol] 126 U/L Critically high 46-116 [facility] Comment on above: Performed By: #### C MP, CMADM, BNP #### [facility] [address] [place] [address] Dr. Briana Dillard ALT [Catalytic activity/Vol] 30 U/L Normal 14-59 [facility] Comment on above: Performed By: #### C MP, CMADM, BNP #### [facility] [address] [place] [address] Dr. Briana Dillard Anion gap [Moles/Vol] 13.6 mmol/L Normal [facility] Comment on above: Performed By: #### C MP, CMADM, BNP #### [facility] [address] [place] [address] Dr. Briana Dillard AST [Catalytic activity/Vol] 18 U/L Normal 15-37 [facility] Comment on above: Performed By: #### C MP, CMADM, BNP #### [facility] [address] [address] [address] Briana Dillard Bilirubin [Mass/Vol] 0.4 mg/dL Normal 0.2-1.0 [facility] Comment on above: Performed By: #### C MP, CMADM, BNP #### [facility] [address] [place] [address] Dr. Briana Dillard Calcium [Mass/Vol] 8.9 mg/dL Normal 8.5-10.1 [facility] Comment on above: Performed By: #### C MP, CMADM, BNP #### [facility] [address] [place] [address] Dr. Briana Dillard Chloride [Moles/Vol] 98 mmol/L Normal 98-107 [facility] Comment on above: Performed By: #### C MP, CMADM, BNP #### [facility] [address] [place] [address] Dr. Briana Dillard CO2 [Moles/Vol] 25.0 mmol/L Normal 21.0-32.0 [facility] Comment on above: Performed By: #### C MP, CMADM, BNP #### [facility] [address] [place] [address] Dr. Briana Dillard Creatinine [Mass/Vol] 1.58 mg/dL Critically high 0.55-1.02 [facility] Comment on above: Performed By: #### C MP, CMADM, BNP #### [facility] [address] [place] [address] Dr. Briana Dillard EGFR-AF CANADIAN 40 mL/min/1.73m2 Critically low >=60 [facility] Comment on above: Performed By: #### C MP, CMADM, BNP #### [facility] [address] [place] [address] Dr. Briana Dillard EGFR-NON AF CANADIAN 33 mL/min/1.73m2 Critically low >=60 [facility] Comment on above: Performed By: #### C MP, CMADM, BNP #### [facility] [address] [address] [address] Briana Dillard Globulin (S) [Mass/Vol] 4.0 g/dL Normal [facility] Comment on above: Performed By: #### C MP, CMADM, BNP #### [facility] [address] [address] [address] Briana Dillard Glucose [Mass/Vol] 386 mg/dL Critically high 74-106 [facility] Comment on above: Performed By: #### C MP, CMADM, BNP #### [facility] [address] [address] [address] Briana Dillard Potassium [Moles/Vol] 4.6 mmol/L Normal 3.5-5.1 [facility] Comment on above: Performed By: #### C MP, CMADM, BNP #### [facility] [address] [place] [address] Dr. Briana Dillard Protein [Mass/Vol] 7.4 g/dL Normal 6.4-8.2 [facility] Comment on above: Performed By: #### C MP, CMADM, BNP #### [facility] [address] [place] [address] Dr. Briana Dillard Sodium [Moles/Vol] 132 mmol/L Critically low 136-145 [facility] Comment on above: Performed By: #### C MP, CMADM, BNP #### [facility] [address] [address] [address] Briana Dillard Urea nitrogen [Mass/Vol] 23.0 mg/dL Critically high 7.0-18 .0 [facility] Comment on above: Performed By: #### C MP, CMADM, BNP #### [facility] [address] [place] [address] Dr. Briana Dillard Urea nitrogen/Creatinine [Mass ratio] 14.6 mg/mg Normal [facility] Comment on above: Performed By: #### C MP, CMADM, BNP #### [facility] [address] [place] [address] Dr. Briana Dillard PROTIMEon 11-28-2021 INR Coag (PPP) [Relative time] 1.01 {INR} Normal [facility] Comment on above: Performed By: #### P T, PTT, DDIM #### [facility] [address] [place] [address] Dr. Briana Dillard INR GUIDELINES SEE BELOW Normal [facility] Comment on above: Result Comment: LURDES RED INR: 2.0 - 3.0 CONDITIONS NOT LISTED BELOW 2.5 - 3.5 FOR PROSTHETIC HEART VALVE REPLACEMENT 2.5 - 3.5 RECURRENT THROMBOSIS Performed By: #### P T, PTT, DDIM #### [facility] [address] [place] [address] Dr. Briana Dillard PT Coag (PPP) [Time] 10.9 s Normal 9.0-11.6 [facility] Comment on above: Performed By: #### P T, PTT, DDIM #### [facility] [address] [place] [address] Dr. Briana Dillard PTTon 11-28-2021 aPTT Coag (Bld) [Time] 27.5 s Normal 22.3-36.2 [facility] Comment on above: Performed By: #### P T, PTT, DDIM #### [facility] [address] [place] [address] Dr. Briana Dillard TROPONIN, HIGH SENSITIVITYon 11-28-2021 HSTROP 5.5 pg/mL Normal 4.0-51.3 [facility] Comment on above: Result Comment: CUT- OFF POINTS HAVE BEEN ESTABLISHED BASED ON THE FOURTH UNIVERSAL DEFINITIONS OF MYOCARDIAL INFARCTION. THE UPPER REFERENCE LIMIT (URL) OF TROPONIN, DEFINED THE 99TH PERCENTILE OF cTnI DISTRIBUTION IN A REFERENCE POPULATION, HAS BEEN CONFIRMED THE DECISION THRESHOLD FOR DE DIAGNOSIS. Performed By: #### C MP, CMADM, BNP #### [facility] [address] [place] [address] Dr. Briana Dillard HSTROP 5.4 pg/mL Normal 4.0-51.3 [facility] Comment on above: Result Comment: CUT- OFF POINTS HAVE BEEN ESTABLISHED BASED ON THE FOURTH UNIVERSAL DEFINITIONS OF MYOCARDIAL INFARCTION. THE UPPER REFERENCE LIMIT (URL) OF TROPONIN, DEFINED THE 99TH PERCENTILE OF cTnI DISTRIBUTION IN A REFERENCE POPULATION, HAS BEEN CONFIRMED THE DECISION THRESHOLD FOR DE DIAGNOSIS. Performed By: #### C GEOVANY COLMENARES, BNP #### [facility] [address] [place], [place] [address] Dr. Briana Dillard HSTROP 5.6 pg/mL Normal 4.0-51.3 [facility] Comment on above: Result Comment: CUT- OFF POINTS HAVE BEEN ESTABLISHED BASED ON THE FOURTH UNIVERSAL DEFINITIONS OF MYOCARDIAL INFARCTION. THE UPPER REFERENCE LIMIT (URL) OF TROPONIN, DEFINED THE 99TH PERCENTILE OF cTnI DISTRIBUTION IN A REFERENCE POPULATION, HAS BEEN CONFIRMED THE DECISION THRESHOLD FOR DE DIAGNOSIS. Performed By: #### C GEOVANY COLMENARES, BNP #### [facility] [address], [place] [address] Dr. Briana Dillard XR CHEST 1 Von [...] NADJA KEMP Date: 2021-11-28 12:46 Normal [facility] Tobacco Screening.on 022 Adult depression screening assessment Yes -[facility] [facility] [address] DO Work Phone: Tobacco use status CPHS a) Yes M P-[facility] [facility] [address] DO Work Phone: Tobacco Screening. Yes MP-[facility] [facility] DO Work Phone: Tobacco Screening. 1-Several days [facility] [facility] [address] DO Work Phone: Tobacco Screening. 0-Not at all -[facility] [facility] DO Work Phone: Tobacco Screening. Not difficult at all MP-[facility] [facility] DO Work Phone: Echocardiogramon 05-20-2021 Echocardiography [facility] [address], [address], [place] [address] TRANSTHORACIC ECHOCARDIOGRAM REPORT Patient Name: VIDHYA IBARRA Reading Physician: [id number] Ruma Dawn MD Study Date: 05/20/2021 Referring [id number] SHASHI COTTRELL Physician: MRN/PID: [id number] PCP: Accession/Order#: [id number] Department [facility] Location: Date of : 1955 Fellow: Gender: F Nurse: Admit Date: Recovery Assistant: Clarisse Sumner RDCS, T Height: 160.02 cm CC Report to: Weight: 89.36 kg Study Type: Echocardiogram BSA: 1.92 m2 Blood Pressure: 166 /94 mmHg Diagnosis/ICD: I51.7-Cardiomegaly; R06.00-Dyspnea, unspecified Indication: Obesity, Tobacco Abuse Procedure/CPT: Echo Complete w Full [id number] Study Detail: The following Echo studies were [...] 0.9 m/s (0.6-0.9m/s) PV Max P.1 mmHg [id number] Ruma Dawn MD Electronically signed on 05/24/2021 at 5:25:46 PM Final Normal [facility] Tobacco Screening.on 022 Fall risk assessment a) No falls within the last year [facility] Work Phone: Tobacco use status CPHS a) Yes [facility] y 250 DO Work Phone: Fall risk assessment a) No falls within the last year [facility] y 250 DO Work Phone: Tobacco use status CP a) Yes [facility] y 250 DO Work Phone: Tobacco Screening. Yes [facility] y 250 DO Work Phone: Bld Gas Venon 12-02-2019 Allens Test N/A [facility] Comment on above: Result Comment: [facility] Department of Pulmonary Medicine [address] [place] [address] Performed By: #### 1 [id number] #### [facility] [address] [place] [address] Called By: KATHY OCHOA [facility] Comment on above: Performed By: #### 1 [id number] #### [facility] [address] [place] [address] Called To: DR. CORINNE COFFMAN [facility] Comment on above: Performed By: #### 1 [id number] #### [facility] [address] [place] [address] Drawn by PEDRO [facility] Comment on above: Performed By: #### 1 [id number] #### [facility] [address] [place] [address] Dt/Tm Notified 17:42:[address] [facility] Comment on above: Performed By: #### 1 [id number] #### [facility] [address] [place] [address] pCO2 Guillaume 36.1 mmHg Low 38.0-50.0 [facility] Comment on above: Performed By: #### 1 [id number] #### [facility] [address] [place] [address] pH (BldV) 7.392 [pH] Normal 7.320-7.430 [facility] Comment on above: Performed By: #### 1 [id number] #### [facility] [address] [place] [address] Sample Site OTHER [facility] Comment on above: Performed By: #### 1 [id number] #### [facility] [address] [place] [address] Sample Type Venous [facility] Comment on above: Performed By: #### 1 [id number] #### [facility] [address] [place] [address] Physician Orderon 12-02-2019 Physician Order [id number]:127 Normal [facility] Vital Signs Date Time Vital Sign Value Performing Clinician Facility 11-03-2024 11:10 Body height 160.02 cm PHYSICIAN [facility] 11-03-2024 11:10040 Body mass index (BMI) [Ratio] 32.6 kg/m2 PHYSICIAN NO [facility] 11-03-2024 11:10-0400 Body temperature 97 [degF] PHYSICIAN NO [facility] 11-03-2024 11:10-0400 Body weight 83.63 kg PHYSICIAN NO [facility] 11-03-2024 11:10-0400 Diastolic blood pressure 92 mm[Hg] PHYSICIAN NO [facility] 11-03-2024 11:10-0400 Heart rate 102 /min PHYSICIAN NO [facility] 11-03-2024 11:10-0400 Respiratory rate 18 /min PHYSICIAN NO [facility] 11-03-2024 11:10-0400 SaO2% (BldA) [Mass fraction] 92 % PHYSICIAN NO [facility] 11-03-2024 11:10-0400 Systolic blood pressure 152 mm[Hg] PHYSICIAN NO [facility] 11-02-2024 10:07-0400 Body mass index (BMI) [Ratio] 32.81 kg/m2 Coni Osorio CARTOGRAPHY SUPERVISOR Work Phone: [facility] 11-02-2024 10:07-0400 Body temperature 98.49 [degF] Coni Jo CARTOGRAPHY SUPERVISOR Work Phone: [facility] 11-02-2024 10:07-0400 Body weight 84.01 kg Coni Howardz CARTOGRAPHY SUPERVISOR Work Phone: [facility] 11-02-2024 10:07-0400 Diastolic blood pressure 92 mm[Hg] Coni Howardz CARTOGRAPHY SUPERVISOR Work Phone: [facility] 11-02-2024 10:07-0400 Heart rate 97 /min Coni Aichhermelindoz CARTOGRAPHY SUPERVISOR Work Phone: [facility] 11-02-2024 10:07-0400 Respiratory rate 20 /min Coni Aichholz CARTOGRAPHY SUPERVISOR Work Phone: [facility] 11-02-2024 10:07-0400 SaO2% (BldA) [Mass fraction] 92 % Coni Aichholz CARTOGRAPHY SUPERVISOR Work Phone: [facility] 11-02-2024 10:07-0400 Systolic blood pressure 144 mm[Hg] Coni Lawrencerashad CARTOGRAPHY SUPERVISOR Work Phone: [facility] 03-22-2024 09:57-0500 Body height 160.02 cm Migel Carver CARTOGRAPHY SUPERVISOR-C Work Phone: [facility] 03-22-2024 09:57-0500 Body mass index (BMI) [Ratio] 34 kg/m2 Migel Carver CARTOGRAPHY SUPERVISOR-C Work Phone: [facility] 03-22-2024 09:57-0500 Body temperature 96.9 [degF] Migel Carver CARTOGRAPHY SUPERVISOR-C Work Phone: [facility] 03-22-2024 09:57-0500 Body weight 87.14 kg Migel Carver CARTOGRAPHY SUPERVISOR-C Work Phone: [facility] 03-22-2024 09:57-0500 Diastolic blood pressure 86 mm[Hg] Migel Carver CARTOGRAPHY SUPERVISOR-C Work Phone: [facility] 03-22-2024 09:57-0500 Heart rate 108 /min Migel Carver CARTOGRAPHY SUPERVISOR-C Work Phone: [facility] 03-22-2024 09:57-0500 Respiratory rate 18 /min Migel Carver CARTOGRAPHY SUPERVISOR-C Work Phone: [facility] 03-22-2024 09:57-0500 SaO2% (BldA) [Mass fraction] 92 % Migel Carver CARTOGRAPHY SUPERVISOR-C Work Phone: [facility] 03-22-2024 09:57-0500 Systolic blood pressure 146 mm[Hg] Migel Carver CARTOGRAPHY SUPERVISOR-C Work Phone: [facility] 01-06-2024 15:12-0400 Body height 160 cm Nadja LEOM Work Phone: [facility] 01-06-2024 15:12-0400 Body mass index (BMI) [Ratio] 36.14 kg/m2 Nadja Donaldo DPM Work Phone: [facility] 01-06-2024 15:12-0400 Body weight 92.53 kg Nadja Nino DPM Work Phone: [facility] [...] Work Phone: [facility] 03-24-2023 13:06-0500 Systolic blood pressure 130 mm[Hg] MD Shaikh Mchugh Work Phone: [facility] 03-24-2023 12:53-0500 Body height 160.02 cm MD Shaikh Mchugh Work Phone: [facility] 03-11-2023 09:20-0500 Body height 162.56 cm Alta Sharmaine Other [facility] Other 03-11-2023 09:20-0500 Body mass index (BMI) [Ratio] 32.78 kg/m2 Alta Sharmaine Other [facility] Other 03-11-2023 09:20-0500 Body temperature 96.3 [degF] Alta Sharmaine Other [facility] Other 03-11-2023 09:20-0500 Body weight 86.64 kg Alta Sharmaine Other [facility] Other 03-11-2023 09:20-0500 Diastolic blood pressure 77 mm[Hg] Alta Sharmaine Other [facility] Other 03-11-2023 09:20-0500 Respiratory rate 18 /min Alta Sharmaine Other [facility] Other 03-11-2023 09:20-0500 SaO2% (BldA) [Mass fraction] 95 % Alta Sharmaine Other [employer] [employer] Other 03-11-2023 09:20-0500 Systolic blood pressure 139 mm[Hg] Alta Schmid Other [employer] [employer] Other 12-08-2022 08:41-0400 Body height 160.02 cm Shaikh Louisd Work Phone: [facility] 250 DO Work Phone: 12-08-2022 08:41-0400 Body mass index (BMI) [Ratio] 32.95 kg/m2 Shaikh Brightwad Work Phone: [facility] 250 DO Work Phone: 12-08-2022 08:41-0400 Body surface area Derived from formula 1.88 m2 Shaikh Brightwad Work Phone: [facility] 250 DO Work Phone: 12-08-2022 08:41-0400 Body weight 84.37 kg Shaikh Brightwad Work Phone: [facility] 250 DO Work Phone: 12-08-2022 08:41-0400 Diastolic blood pressure 60 mm[Hg] Shaikh Brightwad Work Phone: [facility] 250 DO Work Phone: 12-08-2022 08:41-0400 Heart rate 66 /min Shaikh Yaimawwad Work Phone: [facility] 250 DO Work Phone: 12-08-2022 08:41-0400 Systolic blood pressure 108 mm[Hg] Shaikh Yaimawwad Work Phone: [facility] 250 DO Work Phone: 07-01-2021 13:12-0500 Diastolic blood pressure 88 mm[Hg] Dial Fawwad Work Phone: [facility] 250 DO Work Phone: 07-01-2021 13:12-0500 Systolic blood pressure 138 mm[Hg] Dial Fawwad Work Phone: [facility] 250 DO Work Phone: 07-01-2021 09:20-0500 Diastolic blood pressure 100 mm[Hg] Dial Fawwad Work Phone: [facility] 250 DO Work Phone: 07-01-2021 09:20-0500 Systolic blood pressure 148 mm[Hg] Dial Fawwad Work Phone: [facility] 250 DO Work Phone: 07-01-2021 09:01-0500 Diastolic blood pressure 98 mm[Hg] Dial Fawwad Work Phone: [facility] 250 DO Work Phone: 07-01-2021 09:01-0500 Systolic blood pressure 168 mm[Hg] Dial Fawwad Work Phone: [facility] 250 DO Work Phone: 07-01-2021 08:51-0500 Body height 160.02 cm Dial Fawwad Work Phone: [facility] 250 DO Work Phone: 07-01-2021 08:51-0500 Body mass index (BMI) [Ratio] 33.83 kg/m2 Dial Fawwad Work Phone: [facility] 250 DO Work Phone: 07-01-2021 08:51-0500 Body surface area Derived from formula 1.9 m2 Shaikh Brightwad Work Phone: [facility] 250 DO Work Phone: 07-01-2021 08:51-0500 Body weight 86.64 kg Shaikh Brightwad Work Phone: [facility] 250 DO Work Phone: 07-01-2021 08:51-0500 Diastolic blood pressure 104 mm[Hg] Shaikh Brightwad Work Phone: [facility] 250 DO Work Phone: 07-01-2021 08:51-0500 Heart rate 87 /min Shaikh Brightwad Work Phone: [facility] 250 DO Work Phone: 07-01-2021 08:51-0500 Systolic blood pressure 169 mm[Hg] Shaikh Brightwad Work Phone: [facility] 250 DO Work Phone: 07-01-2021 08:51-0500 6 1 Shaikh Brightwad Work Phone: [facility] 250 DO Work Phone: Comment on above: PHQ-9 TS 05-24-2021 10:00-0500 Body height 162.56 cm Juan Gonzalez Other [facility] Other 05-24-2021 10:00-0500 Body mass index (BMI) [Ratio] 32.44 kg/m2 Juan Gonzalez Other [facility] Other 05-24-2021 10:00-0500 Body weight 85.73 kg Juan Gonzalez Other [facility] Other 05-20-2021 10:45-0500 60 1 Shaikh Yaimawwad Work Phone: [facility] [address] [place] Work Phone: Comment on above: [id number] 05-13-2021 11:59-0500 Diastolic blood pressure 104 mm[Hg] Shaikh Yaimawwad Work Phone: [facility] 250 DO Work Phone: 05-13-2021 11:59-0500 Systolic blood pressure 162 mm[Hg] Shaikh Brightwad Work Phone: [facility] 250 DO Work Phone: 05-13-2021 11:13-0500 Diastolic blood pressure 100 mm[Hg] Shaikh Brightwad Work Phone: [facility] 250 DO Work Phone: 05-13-2021 11:13-0500 Systolic blood pressure 170 mm[Hg] Shaikh Brightwad Work Phone: [facility] [address] DO Work Phone: 05-13-2021 11:12-0500 Body height 160.02 cm Shaikh Brightwad Work Phone: [facility] 250 DO Work Phone: 05-13-2021 11:12-0500 Body mass index (BMI) [Ratio] 34.9 kg/m2 Shaikh Yaimawwad Work Phone: [facility] 250 DO Work Phone: 05-13-2021 11:12-0500 Body surface area Derived from formula 1.92 m2 Dial Yaimawwad Work Phone: [facility] 250 DO Work Phone: 05-13-2021 11:12-0500 Body weight 89.36 kg Fawwad Work Phone: [facility] [address] DO Work Phone: 05-13-2021 11:12-0500 Diastolic blood pressure 102 mm[Hg] Fawwad Work Phone: [facility] 250 DO Work Phone: 05-13-2021 11:12-0500 Heart rate 88 /min Shaikh Yaimawwad Work Phone: [facility] 250 DO Work Phone: 05-13-2021 11:12-0500 Systolic blood pressure 172 mm[Hg] Shaikh Yaimawwad Work Phone: [facility] 250 DO Work Phone: 05-13-2021 11:07-0500 Body height 160.02 cm Shaikh Yaimawwad Work Phone: [facility] 250 DO Work Phone: 05-13-2021 11:07-0500 Body mass index (BMI) [Ratio] 34.9 kg/m2 Shaikh Yaimawwad Work Phone: [facility] 250 DO Work Phone: 05-13-2021 11:07-0500 Body surface area Derived from formula 1.92 m2 Dial Fawwad Work Phone: [facility] 250 DO Work Phone: 05-13-2021 11:07-0500 Body weight 89.36 kg Dial Fawwad Work Phone: [facility] 250 DO Work Phone: 05-13-2021 11:07-0500 Heart rate 88 /min Shaikh Jeison Work Phone: [facility] 250 DO Work Phone: 04-09-2021 11:40-0500 Body height 162.56 cm Juan Carlos Other [facility] Other 04-09-2021 11:40-0500 Body mass index (BMI) [Ratio] 32.44 kg/m2 Juan Gonzalez Other [facility] Other 04-09-2021 11:40-0500 Body weight 85.73 kg Juan Gonzalez Other [facility] Other 04-09-2021 11:40-0500 Diastolic blood pressure 72 mm[Hg] Juan Gonzalez Other [facility] Other 04-09-2021 11:40-0500 Systolic blood pressure 124 mm[Hg] Juan Gonzalez Other [facility] Other Encounters Encounter Date Encounter Type Care Provider Facility Start: 11-23-2024 End: 11-23-2024 Clinisync Result Encounter Coni Osorio NP Work Phone: [facility] External Department Unsolicited Start: 11-23-2024 End: 11-23-2024 Clinisync Result Encounter Coni Osorio NP Work Phone: [facility] External Department Unsolicited Start: 11-03-2024 End: 11-03-2024 ambulatory PHYSICIAN [facility] Work Phone: Start: 11-03-2024 End: 11-03-2024 Patient encounter procedure Alta Schmid MD -[facility] Nephrol pilar Callahan Work Phone: Start: 11-02-2024 End: 11-02-2024 Bamboo flowsheet Coni Aichholz CARTOGRAPHY SUPERVISOR Work Phone: [facility] Start: 11-02-2024 End: 11-02-2024 Bamboo flowsheet Coni Osorio CARTOGRAPHY SUPERVISOR Work Phone: [facility] Start: 11-02-2024 End: 11-02-2024 Patient encounter procedure Coni Osorio CARTOGRAPHY SUPERVISOR Work Phone: [facility] Comment on above: Encounter for Medica re annual wellness exam (Primary Dx); Diabetic polyneuropathy [...] of recurrent major depressive disorder (HCC); Hypomagnesemia Start: 11-02-2024 End: 11-02-2024 ambulatory CONI JO Not Available Start: 10-28-2024 End: 10-28-2024 Clinisync Result Encounter Coni Osorio CARTOGRAPHY SUPERVISOR Work Phone: [facility] External Department Unsolicited Start: 10-28-2024 End: 10-28-2024 Clinisync Result Encounter Coni Osorio CARTOGRAPHY SUPERVISOR Work Phone: [facility] External Department Unsolicited Start: 10-21-2024 End: 11-02-2024 Refill Gaetano Andrea MD Work Phone: [facility] Comment on above: Type 2 diabetes lon itus with stage 3a chronic kidney disease, with long-term current use of insulin (HCC); Chronic diastolic congestive heart failure (HCC); Primary hypertension Start: 10-05-2024 End: 10-05-2024 Refill Coni Osorio CARTOGRAPHY SUPERVISOR Work Phone: [facility] Comment on above: Primary hypertension (CMS/HCC) (Primary Dx); Moderate episode of recurrent major depressive disorder (CMS/HCC); Chronic diastolic congestive heart failure (CMS/HCC); Type 2 diabetes mellitus with stage 3a chronic kidney disease, with long-term current use of insulin (HCC) (CMS/HCC); Mixed hyperlipidemia (CMS/HCC); Tobacco dependency; Chronic gout of multiple sites, unspecified cause Start: 09-30-2024 End: 09-30-2024 Patient encounter procedure PHYSICIAN [facility] [place] Work Phone: Start: 09-30-2024 End: 09-30-2024 ambulatory PHYSICIAN [facility] Work Phone: Start: 08-08-2024 End: 08-08-2024 Refill Gaetano Andrea MD Work Phone: [facility] Comment on above: Diabetic polyneuropa thy associated with type 2 diabetes mellitus (CMS/HCC) Start: 08-03-2024 End: 08-03-2024 Refill Gaetano Andrea MD Work Phone: [facility] Comment on above: Psychophysiological insomnia; Type 2 diabetes mellitus with stage 3a chronic kidney disease, with long-term current use of insulin (HCC) (CMS/HCC) Start: 05-24-2024 End: 05-24-2024 Refill Migel Carver CARTOGRAPHY SUPERVISOR Work Phone: [facility] Comment on above: Mixed hyperlipidemia (CMS/HCC) Start: 05-12-2024 End: 05-12-2024 Refill Migel Carver CARTOGRAPHY SUPERVISOR Work Phone: [facility] Comment on above: Chronic diastolic co ngestive heart failure (CMS/HCC); Primary hypertension (CMS/HCC) Start: 05-06-2024 End: 05-09-2024 Refill Migel Carver CARTOGRAPHY SUPERVISOR Work Phone: [facility] Comment on above: Diabetic polyneuropa thy associated with type 2 diabetes mellitus (CMS/HCC) Start: 03-22-2024 End: 03-22-2024 ambulatory Migel Stafford Carver CARTOGRAPHY SUPERVISOR-C Work Phone: [facility] Work Phone: Start: 03-22-2024 End: 03-22-2024 Patient encounter procedure Migel Okeefezpatrick CARTOGRAPHY SUPERVISOR-C Work Phone: [facility] Jacey Work Phone: Start: 03-14-2024 End: 03-14-2024 Patient encounter procedure Migel Carver CARTOGRAPHY SUPERVISOR-C Work Phone: [facility] [place] Work Phone: Start: 03-14-2024 End: 03-14-2024 ambulatory Migel Stafford Carver CARTOGRAPHY SUPERVISOR-C Work Phone: [facility] Work Phone: Start: 02-15-2024 End: 02-16-2024 Refill Migel Carver CARTOGRAPHY SUPERVISOR Work Phone: [facility] Comment on above: Diabetic polyneuropa thy associated with type 2 diabetes mellitus (CMS/HCC) Start: 01-18-2024 End: 01-18-2024 Refill Migel Carver CARTOGRAPHY SUPERVISOR Work Phone: [facility] Comment on above: Moderate episode of recurrent major depressive disorder (HCC) (CMS/HCC) Start: 01-11-2024 End: 01-12-2024 Refill Shaikh Jeison PRAJAPATI Work Phone: [facility] Comment on above: Type 2 diabetes lon itus with stage 3a chronic kidney disease, with long-term current use of insulin (HCC) (CMS/HCC) Start: 01-06-2024 End: 01-06-2024 Office outpatient new 45 minutes Nadja LEOM Work Phone: [facility] Comment on above: Dermatophytosis of n ail (Primary Dx); Type 2 diabetes mellitus with stage 3a chronic kidney disease, with long-term current use of insulin (HCC) ([facility]/HCC); Diabetic polyneuropathy associated with type 2 diabetes mellitus ([facility]/HCC); Dystrophic nail Start: 01-06-2024 End: 01-06-2024 ambulatory NADJA FULTON Not Available Start: 01-06-2024 End: 01-06-2024 Bamboo flowsheet Nadja Fulton DPM Work Phone: [facility] Start: 01-06-2024 End: 01-06-2024 Bamboo flowsheet Nadja Fulton DPM Work Phone: [facility] Start: 12-14-2023 End: 12-14-2023 ambulatory MIGEL CARVER Not Available Start: 10-05-2023 End: 10-05-2023 ambulatory Radha Dunaway MD Facility: [facility] Start: 09-21-2023 End: 09-21-2023 ambulatory Radha Dunaway MD Facility: [facility] Start: 09-12-2023 End: 09-12-2023 ambulatory MD Shaikh Mchugh Work Phone: [facility] Work Phone: Start: 09-12-2023 End: 09-12-2023 Patient encounter procedure MD Shaikh Mchugh Work Phone: [facility] [place] Work Phone: Start: 08-05-2023 End: 08-05-2023 ambulatory MD Shaikh Mchugh Work Phone: [facility] Work Phone: Start: 08-05-2023 End: 08-05-2023 Patient encounter procedure MD Shaikh Mchugh Work Phone: [facility] Ambulatory Work Phone: Start: 08-05-2023 Registered Recurring MD Shaikh Mchugh [facility] Phone: [facility] Work Phone: Start: 06-24-2023 End: 06-24-2023 ambulatory MD Shaikh Mchugh Work Phone: [facility] Work Phone: Start: 06-24-2023 End: 06-24-2023 Patient encounter procedure MD Shaikh Mchugh [facility] Work Phone: Start: 06-24-2023 Registered Recurring MD Shaikh Mchugh Work Phone: [facility] Work Phone: Start: 06-01-2023 End: 06-01-2023 ambulatory Radha Dunaway MD Facility:[facility] Start: 05-11-2023 End: 05-11-2023 ambulatory Radha Dunaway MD Facility:[facility] Start: 04-13-2023 End: 04-13-2023 ambulatory Neena Hi Other [facility] [place] Other Start: 04-13-[address] angelina Fulton DPM Work Phone: [facility] Start: 04-13-2023 Telephone encounter Neena Hi [facility] Start: 04-06-2023 End: 04-06-2023 ambulatory Radha Dunaway MD Facility:[facility] Start: 03-24-2023 End: 03-24-2023 ambulatory MD Shaikh Mchugh Work Phone: [facility] Work Phone: Start: 03-24-2023 End: 03-24-2023 Registered Recurring MD Shaikh Mchugh Work Phone: [facility] Work Phone: Start: 03-11-2023 End: 03-11-2023 ambulatory Alta Sharmaine Other [facility] [place] Other Start: 03-11-2023 Office outpatient vi sit 25 minutes Alta Sharmaine [facility] [place] Start: 03-04-2023 End: 03-04-2023 ambulatory MD Shaikh Mchugh Work Phone: [facility] Work Phone: Start: 03-04-2023 End: 03-04-2023 Patient encounter procedure MD Shaikh Mchugh Work Phone: [facility] [place] Work Phone: Start: 12-08-2022 Office outpatient vi sit 15 minutes Shaikh Jeison Work Phone: [facility] 250 DO Work Phone: Start: 12-08-2022 Patient encounter procedure Abhijit Mchugh Work Phone: [facility] 250 DO Work Phone: Start: 12-08-[address] Shashi Cottrell II Facility: Start: 11-10-2022 End: 11-10-2022 ambulatory Radha Dunaway MD Facility:[facility] Start: 10-16-2022 ambulatory SHAIKH Gurjit MCHUGH Facilit y:H1 Start: 07-17-2022 End: 07-18-2022 ambulatory SHAIKH Gurjit MCHUGH Facility:H1 Start: 06-29-2022 Rx Renewal Shaikh Jeison Work Phone: [facility] 250 DO Work Phone: Start: 06-28-2022 End: 06-29-2022 ambulatory SHAIKH Gurjit MCHUGH Facility:H1 Start: 06-12-[address] ELIGIO HODGE . Faci lity:H1 Start: 05-27-2022 End: 05-27-[address] ELIGIO HODGE . Facility:H1 Start: 05-13-2022 End: 05-13-[address] ELIGIO HODGE . Facility:H1 Start: 04-10-2022 End: 04-11-[address] ELIGIO HODGE . Facility:H1 Start: 02-17-2022 End: 02-18-2022 ambulatory SHAIKH Gurjit FAWELIHSAD Facility:H1 Start: 01-10-[address] Shashi Cottrell II Facility: Start: 01-09-2022 End: 01-10-2022 ambulatory DIAL H FAWWAD Facility:H1 Start: 11-28-2021 End: 11-29-2021 ambulatory DIAL H FAWWAD Facility:H1 Start: 10-17-2021 End: 10-18-2021 ambulatory EVA ROSEN . Facility: Start: 07-01-2021 AUDIT Shaikh Yaimawwad Work Phone: [facility] 250 DO Work Phone: Start: 05-28-2021 FUV, Provider: Shashi Cottrell, Status: Pen, Time: 10:50 AM Dial Yaimawwad Work Phone: [facility] 250 DO Work Phone: Start: 05-26-2021 Chart Update Dial Yaimawwad Work Phone: [facility] 250 DO Work Phone: Start: 05-24-2021 End: 05-24-2021 ambulatory Juan Gonzalez Other [facility] [place] Other Start: 05-24-2021 Office outpatient vi sit 15 minutes Juan Gonzalez [facility] Neuro[facility] Start: 05-20-2021 Patient encounter procedure rock Erwinwaleska Work Phone: [facility] [address] [place] Work Phone: Start: 05-13-2021 Office consultation new/estab patient 60 min Shaikh Jeison Work Phone: [facility] 250 DO Work Phone: Start: 04-09-2021 End: 04-09-2021 ambulatory Juan Gonzalez Other [facility] [place] Other Start: 04-09-2021 Office outpatient ne w 45 minutes Juan Gonzalez [facility] Neurosurgery Procedures Date Procedure Procedure Detail Performing Clinician Start: 11-23-2024 CT LUNG SCREENING LOW DOSE Coni Osorio CARTOGRAPHY SUPERVISOR Work Phone: Start: 10-28-2024 ALL CBC WITH AUTO DIFF Coni Osorio CARTOGRAPHY SUPERVISOR Work Phone: Start: 07-03-2023 End: 07-03-2023 Screening mammography of [...] Activity Detail Author Start: 05-19-2026 Screening for malignant neoplasm of colon [facility] Start: 11-06-2025 End: 11-06-2025 Patient encounter procedure 11/06/2025 10:30 AM EDT Office Visit [facility] [address] [place] [address] Coni Osorio NP [address] [place] [address] [facility] Start: 11-02-2025 Medicare Annual Wellness (AWV) Medicare Annual Wellness (AWV) [facility] Start: 10-28-2025 Urine screening for protein Diabetes: Urine Protein Screening [facility] Start: 05-08-2025 Glaucoma screening Diabetes: Retinopathy Screening [facility] Start: 01-28-2025 Hemoglobin A1c measurement Diabetes: Hemoglobin A1C [facility] Start: 01-10-2025 End: 01-10-2025 Patient encounter procedure 01/10/2025 8:30 AM EDT Office Visit [facility] [address] [place] [phone] Coni Osorio NP [address] [place] [phone] [facility] Start: 01-04-2025 End: 01-04-2025 Patient encounter procedure 01/04/2025 9:20 AM EDT Office Visit [facility] [address] [place] [address] Coni Osorio NP [address] [place] [phone] [facility] Start: 01-02-2025 Influenza vaccination [facility] Start: 11-02-2024 End: 11-02-2025 CT Chest for screening WO contrast CT lung screening low dose Imaging Routine Cigarette nicotine dependence without complication Expected: 11/02/2024, Expires: 11/02/2025 [facility] Work Phone: Comment on above: Expected: 11/02/2024, Expires: Start: 11-02-2024 End: 01-03-2026 MG Breast - bilateral Screening Bilateral screening mammogram Imaging Routine Encounter for screening mammogram for malignant neoplasm of breast Expected: 11/02/2024 (Approximate), Expires: 01/03/2026 [facility] Comment on above: Expected: 11/02/2024 (Approximate), Expi res: 01/03/2026 Start: 11-02-2024 End: 11-02-2024 Patient encounter procedure [facility] Comment on above: Diabetic polyneuropathy associated with type 2 diabetes mellitus (HCC) (Primary Dx); Pulmonary emphysema, unspecified emphysema type (HCC); RLS [...] Mixed hyperlipidemia ; Cigarette nicotine dependence without complication Start: 10-05-2024 End: 10-05-2025 CBC W Auto Differential panel - Blood CBC and differential Lab Routine Tobacco dependency Expected: 10/05/2024 (Approximate), Expires: 10/05/2025 [facility] Work Phone: Comment on above: Expected: 10/05/2024 (Approximate), Expi res: 10/05/2025 Start: 10-05-2024 End: 10-05-2025 Comprehensive metabolic [...] [facility] Comment on above: Expected: 10/05/2024 (Approximate), Expi res: 10/05/2025 Start: 10-05-2024 End: 10-05-2025 Hemoglobin A1c/Hemoglobin.total in Blood Hemoglobin A1c Lab Routine Type 2 diabetes mellitus with stage 3a chronic kidney disease, with long-term current use of insulin (HCC) (CMS/HCC) Expected: 10/05/2024 (Approximate), Expires: 10/05/2025 [facility] Comment on above: Expected: 10/05/2024 (Approximate), Expi res: 10/05/2025 Start: 10-05-2024 End: 10-05-2025 Lipid 1996 panel - Serum or Plasma Lipid panel Lab Routine Mixed hyperlipidemia ([facility]/HCC) Expected: 10/05/2024 (Approximate), Expires: 10/05/2025 [facility] Comment on above: Expected: 10/05/2024 (Approximate), Expi res: 10/05/2025 Start: 10-05-2024 End: 10-05-2025 Microalbumin/Creatinine panel in random Urine Microalbumin / creatinine, urine ratio Lab Routine Primary hypertension ([facility]/HCC) Type 2 diabetes mellitus with stage 3a chronic kidney disease, with long-term current use of insulin (HCC) ([facility]/HCC) Expected: 10/05/2024 (Approximate), Expires: 10/05/2025 [facility] Comment on above: Expected: 10/05/2024 (Approximate), Expi res: 10/05/2025 Start: 10-05-2024 End: 10-05-2025 Urate [Mass/volume] in Serum or Plasma Uric acid Lab Routine Chronic gout of multiple sites, unspecified cause Expected: 10/05/2024 (Approximate), Expires: 10/05/2025 [facility] Comment on above: Expected: 10/05/2024 (Approximate), Expi res: 10/05/2025 Start: 10-05-2024 End: 10-05-2025 Urinalysis complete panel - Urine Urinalysis with reflex microscopic (clean catch) Lab Routine Primary hypertension ([facility]/HCC) Type 2 diabetes mellitus with stage 3a chronic kidney disease, with long-term current use of insulin (HCC) ([facility]) Tobacco dependency Expected: 10/05/2024 (Approximate), Expires: 10/05/2025 [facility] Comment on above: Expected: 10/05/2024 (Approximate), Expi res: 10/05/2025 Start: 09-11-2024 Urine screening for protein Diabetes: Urine Protein Screening [facility] Start: 07-02-2024 Screening for malignant neoplasm of breast Mammogram [facility] Start: 06-29-2024 End: 06-29-2024 Patient encounter procedure 06/29/2024 1:15 PM EST Procedure Visit [facility] [address] [place] [phone] Nadja Fulton DPM [address] [place] [address] [facility] Start: 05-18-2024 End: 05-18-2024 Patient encounter procedure 05/18/2024 1:00 PM EST Procedure Visit [facility] [address] [place] [phone] Nadja Fulton DPM [address] [place] [address] [facility] Start: 04-13-2024 Medicare Annual Wellness (AWV) Medicare Annual Wellness ([facility]) [facility] Start: 03-15-2024 End: 03-15-2024 Patient encounter procedure 03/15/2024 9:00 AM EST Office Visit [facility] [address] [place] [phone] Migel Carver, DENA [address] [place] [phone] [facility] Start: 01-06-2024 End: 01-06-2024 Patient encounter procedure 01/06/2024 3:30 PM EDT Office Visit [facility] [address] [place] [phone] Nadja Fulton DPM [address] [place], [place] [id number] Type 2 diabetes mellitus with stage 3a chronic kidney disease, with long-term current use of insulin (HCC) ([facility]); Diabetic polyneuropathy associated with type 2 diabetes mellitus ([facility]) [facility] Comment on above: Type 2 diabetes mellitus with stage 3a c hronic kidney disease, with long-term current use of insulin (HCC) ([facility]); Diabetic polyneuropathy associated with type 2 diabetes mellitus ([facility]) Start: 01-03-2024 Influenza vaccination Influenza Vaccine (#1) [facility] Start: 10-16-2023 Hemoglobin A1c measurement Diabetes: Hemoglobin A1C [facility] Start: 06-24-2023 Patient referral [facility] Work Phone: Start: 03-04-2023 Bacteria identified in Urine by Culture [facility] Start: 12-12-2022 FUV, Provider: Shashi Cottrell, Status: Pen, Time: 3:20 PM FUV, Provider: Shashi Cottrell, Status: Pen, Time: 3:20 PM -[facility] 250 DO Work Phone: Start: 01-10-2022 FUV, Provider: Shashi Cottrell, Status: Pen, Time: 2:00 PM FUV, Provider: Shashi Cottrell, Status: Pen, Time: 2:00 PM -[facility] 250 DO Work Phone: Start: 07-01-2021 FUV, Provider: Shashi Cottrell, Status: Pen, Time: 8:40 AM FUV, Provider: Shashi Cottrell, Status: Pen, Time: 8:40 AM -[facility] [address] [place] Work Phone: Start: 05-28-2021 FUV, Provider: Shashi Cottrell, Status: Pen, Time: 10:50 AM FUV, Provider: Shashi Cottrell, Status: Pen, Time: 10:50 AM [facility] 250 DO Work Phone: Start: 05-20-2021 ECHO, Provider: JACEY HHVI ULTRASOUND ,[id number], Status: Pen, Time: 10:45 AM ECHO, Provider: JACEY HHVI ULTRASOUND ,[id number], Status: Pen, Time: 10:45 AM -[facility] 250 DO Work Phone: Start: 1955 Screening for malignant neoplasm of colon [facility] Start: 1955 Screening for malignant neoplasm of lung Lung Cancer Screening Shared Decision Making [facility] MG Breast - bilatera l Screening [facility] Patient referral [facility] Work Phone: Renal function 1999 panel - Serum or Plasma [facility] Renal function 1999 panel - Serum or Plasma [facility] Immunizations Immunization Date Immunization Notes Care Provider Fa cilikaiden 10-20-2020 pneumococcal polysaccharide vaccine, 23 valent Dial Fawwad Work Phone: [facility] 250 DO Work Phone: 08-23-2020 COVID-19 Vaccine Mod jasson - Documentation Purposes Only Juan Carlos Other [facility] 05-04-2020 pneumococcal conjuga te vaccine, 13 valent Dial Yaimawwad Work Phone: [facility] 250 DO Work Phone: Comment on above: Series: 02-03-2020 Influenza, injectabl e, Madin Sabine Canine Kidney, preservative free, quadrivalent Dial Yaimawwad Work Phone: [facility] 250 DO Work Phone: 02-03-2020 influenza virus vacc ine, unspecified formulation Nadja LEOM Work Phone: [facility] 02-09-2019 Vaxneuvance 0.5 ML Intramuscular Suspension Prefilled Syringe Dial Jeison Work Phone: [facility] 250 DO Work Phone: 04-05-2017 influenza, injectabl e, quadrivalent, preservative free Dial Fawwad Work Phone: [facility] 250 DO Work Phone: Payers Date Payer Category Payer Self-pay [id number] 2022 Medicare [employer] HUMAN MEDICARE [id number] 2022-Present [address] [address] [place] [address] [id number] 2022 Medicare (Managed Care) [facility] [id number] 2022 Private Health Insurance 1959 Medicare [id number] [id number] 1955 Unknown [id number] 2.16840.1.651407.3.579. 2.59 1955 Unknown [id number] 2.16.840.1.861973.3.579. 2.593 1955 Unknown [id number] 2.16.840.1.958236.3.579. 2.59 1955 Unknown [id number] 2.16.840.1.796696.3.579. 2.593 1955 Unknown [id number] 2.16.840.1.094883.3.579. 2.59 1955 Unknown [id number] 2.16.840.1.684995.3.579. 2.593 1955 Unknown [id number] 2.16.840.1.521856.3.579. 2.59 1955 Unknown [id number] 2.16.840.1.872040.3.579. 2.593 1955 Unknown [id number] 2.16.840.1.193739.3.579. 2.593 1955 Unknown [id number] 2.16.840.1.233665.3.579. 2.593 1955 Unknown [id number] 2.16.840.1.758046.3.579. 2.593 1955 Unknown [id number] 2.16.840.1.340609.3.579. 2.593 1955 Unknown [id number] 2.16.840.1.296972.3.579. 2.356 1955 Unknown [id number] 2.16.840.1.765273.3.579. 2.356 1955 Unknown [id number] 2.16.840.1.491795.3.579. 2.196 1955 Unknown [id number] 2.16.840.1.841678.3.579. 2.196 1955 Unknown [id number] 2.16.840.1.630952.3.579. 2.196 1955 Unknown [id number] 2.16.840.1.527123.3.579. 2.196 1955 Unknown [id number] 2.16.840.1.273892.3.579. 2.196 1955 Unknown [id number] 2.16.840.1.716634.3.579. 2.196 1955 Unknown [id number] 2.16.840.1.328775.3.579. 2.1259 1955 Unknown [id number] 2.16.840.1.127303.3.579. 2.1259 1955 Unknown [id number] 2.16.840.1.871035.3.579. 2.1259 Medicare [id number] 2.16.840.1.535827.19 Unknown Unknown [id number] 2.840.1.401111.3.579. 2.531 Unknown [id number] 2.840.1.514513.3.579. 2.531 Social History Date Type Detail Facility Start: 04-09-2023 End: 12-14-2023 Daily caffeine consumption Daily caffeine consumption [facility] Comment on above: 2-3 cups of coffee d aily.; 1/2 pack daily.; Start: 04-09-2023 End: 11-02-2024 Sex Assigned At [facility] Start: 01-24-2021 End: 03-22-2024 Tobacco smoking status [facility] Smoker (finding) [facility] Start: 1955 Sex Assigned At Female F [facility] Start: 12-14-2023 End: 11-03-2024 Tobacco smoking status [facility] Smokes tobacco daily [facility] History of tobacco use Cigarette Smoker [facility] History of tobacco use Passive smoker [facility] Start: 12-14-2023 Tobacco use and exposure Smokeless tobacco non-user [facility] Start: 01-06-2024 End: 11-02-2024 Alcoholic beverage intake Lifetime non-drinker (finding) [facility] [...] Start: 03-15-2024 End: 10-01-2024 Sex Female (finding) [facility] Medical Equipment Procedure Code Equipment Code Equipment Origin al Text Equipment Identifier Dates 1 strip by In Vi tro route 5 (five) times a day [id number], [id number], [id number], [id number] Start: 11-12-2023 End: 02-10-2025 Functional Status Date Assessment Result Facility 11-02-2024 Patient Health Quest ionnaire 2 item (PHQ-2) [Reported] [facility] 07-01-2021 PHQ-9 [id number] Mild (5-9) [facility] 250 DO Work Phone: [facility] Clinical Notes 12-03-2019 to 11-02-2024 Coni Osorio NP - 11/02/2024 12:52 PM EDTHAZ MARTIN - 11/02/2024 10:00 AM Juaquin Osorio NP - 11/02/2024 10:00 AM Juaquin Osorio NP - 11/02/2024 7:17 AM EDTPatient Instructions Note Date & Type Note Facility 11-02-2024 History of Presen t illness Narrative Associated Problem(s): Encounter for Medicare annual wellness exam Reviewed Ht/Wt/BMI Recommend eye exam yearly Recommend dental exams twice a year Balance work/leisure activities Exercises is recommended most days of the week (appropriate as chronic conditions allow) Follow up yearly and prn; Last seen in office on 12/14/23 TYPE 2 DIABETES: glipizide and novolin Sees nephrology for stage 3 CKD Referral sent for podiatry for DM foot care HYPERLIPIDEMIA: HTN: losartan-hydrochlorothiazide,metoprolo l, bumex and asprin 81 Sees cardiology in [place] Recommend BP log COPD: trelegy ellipta LUMBAR STENOSIS W/ NEUROGENIC CLAUDICATION: Pain mgmt-percocet Pt no longer has fu with cardiology Uses trelegy inhaler BP 130s/70s Still is with pain mgmt No concerns with swelling in lower legs No complaints of dizziness, blurred vision or headaches Pt never checks fasting sugars she usually does it after breakfast gets 160-200s usually under 200 Talked with pt about importance of getting the glucose before coffee and breakfast Pt unsure if she is taking allopurion 100 or 300mg she knows she takes 1 daily Gabapentin has increased to 900 mg 4x daily Pt needs a refill of her paroxetine 20mg she has been out of it for about a month Novolin needs a new prescription Pt states migel increased her trazodone to 1.5 tablets and she would like to increase it to 2 tablets because she still can not sleep Needs a refill on her metoprolol tartrate 50mg Pt is taking magnesium oxide two tablets daily instead of one Pt needs a new glucose metor states that it is very old and she has dropped it a few times 02 at 92% sob when walking can only walk short distances .75 of pack of cigarettes daily No living will no POA Images from the original note were not included. Vidhya Ibarra is a 68 y.o. female presents with chief complaint of Medicare Annual Wellness Visit Initial HPI: Diet:does not eat a lot of fruit, otherwise yes Activity: no regular, but does climb about 10 steps many times daily Mental Health Concerns:=depression, and anxiety Falls in the last year: no Still driving: occassional Do you pay your bills: yes Any hearing problems: no Any Vision problems: 05/2024 last exam Any Hospitalizations in the last year: no Specialist: Jeanette Schmid HCPOA/Living Will:- no Concerns: Hypertension This is a chronic problem. The current episode started more than 1 year ago. The problem is unchanged. The problem is uncontrolled. Associated symptoms include shortness of breath. Pertinent negatives include no blurred vision, chest pain, headaches, malaise/fatigue, palpitations or peripheral edema. There are no associated agents to hypertension. Risk factors for coronary artery disease include diabetes mellitus, dyslipidemia, obesity, post-menopausal state, smoking/tobacco exposure and sedentary lifestyle. Past treatments include beta blockers, diuretics and angiotensin blockers. The current treatment provides moderate improvement. There are no compliance problems. There is no history of CAD/DE or heart failure. Diabetes She presents for her follow-up diabetic visit. She has type 2 diabetes mellitus. Her disease course has been fluctuating. There are no hypoglycemic associated symptoms. Pertinent negatives for hypoglycemia include no dizziness, headaches, nervousness/anxiousness, seizures or tremors. Associated symptoms include foot paresthesias and weight loss. Pertinent negatives for diabetes include no blurred vision, no chest pain, no polydipsia, no polyphagia, no polyuria and no visual change. There are no hypoglycemic complications. Symptoms are worsening. Diabetic complications include peripheral neuropathy. Pertinent negatives for diabetic complications include no nephropathy. Risk factors for coronary artery disease include diabetes mellitus, dyslipidemia, hypertension, obesity, sedentary lifestyle and tobacco exposure. Current diabetic treatment includes insulin injections. She is compliant with treatment most of the time. An JOSEPH inhibitor/angiotensin II receptor shirley is being taken. Eye exam is current. SUBJECTIVE: MEDICATIONS: Current Outpatient Medications Medication Instructions allopurinol (ZYLOPRIM) 200 mg, Oral, Daily aspirin 81 MG EC tablet 1 tablet, Daily atorvastatin (LIPITOR) 40 mg, Oral, Every morning Blood Glucose Monitoring Suppl (ONE TOUCH ULTRA 2) w/Device kit 1 kit, Does not apply, Daily bumetanide (BUMEX) 0.5 mg, Oral, Daily, Take 1 tablet (0.5 mg) by mouth Daily Ywvrdehqofr-Ahtxnaurb-Hiqjom (Trelegy Ellipta) 200-62.5-25 MCG/ACT aerosol powder 1 puff, Inhalation, Daily, Rinse mouth after use gabapentin (NEURONTIN) 300 mg, 4 times daily glipiZIDE (GLUCOTROL) 10 mg, Oral, 2 times daily before meals Glucose Blood (BLOOD GLUCOSE TEST STRIPS 333 ) 1 strip, 5 times daily glucose blood (OneTouch Ultra Blue Test) test strip 1 each, Other, 2 times daily before meals, 1 insulin NPH-insulin regular (NovoLIN 70/30 FlexPen Relion) (70-30) 100 UNIT/ML injection 25 Units, Subcutaneous, 2 times daily before meals Lancets 33G misc 1 each, Does not apply, 2 times daily losartan-hydroCHLOROthiazide (Hyzaar) 100-25 MG tablet 1 tablet, Oral, Every morning magnesium oxide (MAG-OX) 400 mg, Oral, 2 times daily metoprolol tartrate (LOPRESSOR) 50 mg, Oral, 2 times daily naloxone (NARCAN) 4 mg, As needed oxyCODONE-acetaminophen (Percocet) 5-325 MG tablet 1 tablet, Every 12 hours PRN PARoxetine (PAXIL) 20 mg, Oral, Every morning pen needle 31G x 5 mm misc 1 each, Subcutaneous, 2 times daily, Use as instructed pramipexole (MIRAPEX) 0.25 mg, Oral, Nightly traZODone (DESYREL) 150 mg, Oral, Nightly ALLERGIES: Allergies Allergen Reactions Prednisolone Hives Prednisone Hives REVIEW OF SYMPTOMS: Review of Systems Constitutional: Positive for weight loss. Negative for appetite change, chills, fever and malaise/fatigue. HENT: Negative for congestion, ear pain and sore throat. Eyes: Negative for blurred vision, pain, discharge, redness and visual disturbance. Respiratory: Positive for cough and shortness of breath. Negative for wheezing. Cardiovascular: Negative for chest pain, palpitations and leg swelling. Gastrointestinal: Negative for abdominal pain, blood in stool, constipation, diarrhea, nausea and vomiting. Genitourinary: Negative for difficulty urinating, dysuria and frequency. Musculoskeletal: Positive for arthralgias. Negative for back pain, joint swelling and myalgias. Skin: Negative for rash and wound. Neurological: Positive for numbness. Negative for dizziness, tremors, seizures, syncope and headaches. Psychiatric/Behavioral: Negative for behavioral problems, self-injury and suicidal ideas. The patient is not nervous/anxious. Hematological: Does not bruise/bleed easily. Endocrine: Negative for polydipsia, polyphagia and polyuria. Allergic/Immunologic: Negative for environmental allergies and food allergies. PAST MEDICAL HISTORY Past Medical History: Diagnosis Date At moderate risk for fall Bronchitis Has hasd for two weeks, not improving. Cervical pain (neck) resolved now. Was seen by NS. CHF (congestive heart failure) (HCC) Chronic constipation uses Colace, refill requested Chronic heart failure with preserved ejection fraction (HCC) Last 2D ECHO 2019, LVH, no sig valvular pathology Chronic obstructive pulmonary disease, unspecified COPD type (HCC) Patient instructed to stop turdorza, start anoro ellipta daily, rince mouth after use. Due to formulary. 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 Poorly controlled due to pain Gout H. pylori infection Hx of degenerative disc disease 04/08/2023 Hyperkalemia 6 today shows K+=5.3 improvement from this weekend. 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 Improved from before, still above goal. Counseled on dietary restrictions. Supposed to be on novolog 5 units plus SSI but had difficulty measuring FSBS TID and following instructions, currently just using 5 units without correctional dose. Pulmonary emphysema, unspecified emphysema type (HCC) Renal dysfunction Right shoulder pain Secondary hyperparathyroidism (HCC) Tobacco user Type 2 diabetes mellitus with chronic kidney disease, with long-term current use of insulin, unspecified CKD stage (HCC) Improvement in FSBS from before but still above goal. Usually 150-200 Poor dietary habits and typically does not follow instructions. Currently using Ozempic, Levemir 40 units, Glipizide 10 mg and Novolog 8 with sliding scale. Her FSBS have been at goal and she denies any episode of hypoglycemia. No adverse effects of current meds Past Surgical History: Procedure Laterality Date CATARACT EXTRACTION, BILATERAL CHOLECYSTECTOMY DILATION AND CURETTAGE OF UTERUS EYE SURGERY family history includes Alcohol abuse in her father; Cancer in her child, father, and mother; Diabetes in her father and mother; Heart disease in her mother; Hypertension in her father and mother; Other in her mother. OBJECTIVE: Visit Vitals BP (!) 144/92 (BP Location: Left arm, Patient Position: Sitting, BP Cuff Size: Adult long) Pulse 97 Temp 98.5 F (Temporal) Resp 20 Wt 185 lb 3.2 oz SpO2 92% BMI 32.81 kg/m Smoking Status Every Day BSA 1.93 m Physical Exam Vitals and nursing note reviewed. Constitutional: General: She is not in acute distress. Appearance: Normal appearance. HENT: Head: Normocephalic and atraumatic. Right Ear: External ear normal. Left Ear: External ear normal. Nose: Nose normal. Mouth/Throat: Mouth: Mucous membranes are moist. Eyes: Extraocular Movements: Extraocular movements intact. Conjunctiva/sclera: Conjunctivae normal. Neck: Vascular: No carotid bruit. Cardiovascular: Rate and Rhythm: Normal rate and regular rhythm. Pulses: Normal pulses. Heart sounds: Normal heart sounds. Pulmonary: Effort: Pulmonary effort is normal. Breath sounds: Normal breath sounds. No wheezing or rhonchi. Abdominal: General: Bowel sounds are normal. There is no distension. Palpations: Abdomen is soft. There is no mass. Tenderness: There is no abdominal tenderness. There is no guarding. Musculoskeletal: General: Normal range of motion. Cervical back: Normal range of motion and neck supple. Right lower leg: No edema. Left lower leg: No edema. Lymphadenopathy: Cervical: No cervical adenopathy. Skin: General: Skin is warm and dry. Capillary Refill: Capillary refill takes 2 to 3 seconds. Findings: No rash. Neurological: General: No focal deficit present. Mental Status: She is alert and oriented to person, place, and time. Psychiatric: Mood and Affect: Mood normal. Behavior: Behavior normal. Thought Content: Thought content normal. Judgment: Judgment normal. ASSESSMENT AND PLAN: Follow up in about 2 months (around 01/03/2025) for Recheck. Problem List Items Addressed This Visit Type 2 diabetes mellitus with stage 3a chronic kidney disease, with long-term current use of insulin ([facility]) Check blood sugars daily, notify if <70 [...] and asa A1c: 10.4 % on 10/28/24 Relevant Medications glipiZIDE (Glucotrol) 10 MG tablet insulin NPH-insulin regular (NovoLIN 70/30 FlexPen Relion) (70-30) 100 UNIT/ML injection pen needle 31G x 5 mm misc glucose blood (OneTouch Ultra Blue Test) test strip Blood Glucose Monitoring Suppl (ONE TOUCH ULTRA 2) w/Device kit Lancets 33G misc Mixed hyperlipidemia On statin therapy Check labs yearly and prn dose changes Relevant Medications atorvastatin (Lipitor) 40 MG tablet Primary hypertension Please check blood pressure daily and record DASH diet Limit caffeine Take medication as directed Contact office if chest pain, pressure, dizziness, shortness of breath, swelling legs Recommend slow position changes Current meds: losartan/hydrochlorothiazide, b shirley Relevant Medications losartan-hydroCHLOROthiazide (Hyzaar) 100-25 MG tablet metoprolol tartrate (Lopressor) 50 MG tablet RLS (restless legs syndrome) mirapex Relevant Medications pramipexole (Mirapex) 0.25 MG tablet Diabetic polyneuropathy associated with type 2 diabetes mellitus (HCC) - Primary Freq foot exams Proper fitting shoes Good blood glucose control COPD (chronic obstructive pulmonary disease) with emphysema ([facility]) Current meds: trelegy Relevant Medications Iqrcmmomchy-Mtajicnly-Dsvqmu (Trelegy Ellipta) 200-62.5-25 MCG/ACT aerosol powder Chronic diastolic congestive heart failure (HCC) Losartan/hydrochlorothiazide, b shirley, diuretics Relevant Medications bumetanide (Bumex) 0.5 MG tablet Encounter for screening mammogram for malignant neoplasm of breast Relevant Orders Bilateral screening mammogram Encounter for Medicare annual wellness exam Reviewed Ht/Wt/BMI Recommend eye exam yearly Recommend dental exams twice a year Balance work/leisure activities Exercises is recommended most days of the week (appropriate as chronic conditions allow) Follow up yearly and prn; Moderate episode of recurrent major depressive disorder (HCC) Relevant Medications PARoxetine (Paxil) 20 MG tablet Psychophysiological insomnia Trazodone for sleep Relevant Medications traZODone (Desyrel) 100 MG tablet Chronic gout of multiple sites Allopurinol Check labs yearly and prn dose changes or changes in sxs Relevant Medications allopurinol (Zyloprim) 100 MG tablet Secondary hyperparathyroidism of renal origin (HCC) Chronic kidney disease, stage 3a ([facility]-HCC) Control blood sugar as well as blood pressure Monitor labs Cigarette nicotine dependence without complication The patient has been advised of the risks of continued smoking: stroke, DE, all forms of cancer, lung disease, and . Options for quitting smoking include: cold turkey, hypnosis, acupuncture, nicotine replacement meds (gum, lozenges, and patches), Buproprion, and Varenicline. At this time pt is encouraged to evaluate their goals for wanting to quit smoking, and reach out to provider when ready to start this process Relevant Orders CT lung screening low dose Hypomagnesemia Relevant Medications magnesium oxide (Mag-Ox) 400 (240 Mg) MG tablet Associated Problem(s): Cigarette nicotine dependence without complication The patient has been advised of the risks of continued smoking: stroke, DE, all forms of cancer, lung disease, and . Options for quitting smoking include: cold turkey, hypnosis, acupuncture, nicotine replacement meds (gum, lozenges, and patches), Buproprion, and Varenicline. At this time pt is encouraged to evaluate their goals for wanting to quit smoking, and reach out to provider when ready to start this process Associated Problem(s): Mixed hyperlipidemia On statin therapy Check labs yearly and prn dose changes Associated Problem(s): Type 2 diabetes mellitus with stage 3a chronic kidney disease, with long-term current use of insulin (HCC) Check blood sugars daily, notify if <70 [...] and asa A1c: 10.4 % on 10/28/24 Associated Problem(s): Chronic kidney disease, stage 3a ([facility]-HCC) Control blood sugar as well as blood pressure Monitor labs Associated Problem(s): Chronic gout of multiple sites Allopurinol Check labs yearly and prn dose changes or changes in sxs Associated Problem(s): Chronic diastolic congestive heart failure (HCC) Losartan/hydrochlorothiazide, b shirley, diuretics Associated Problem(s): Psychophysiological insomnia Trazodone for sleep Associated Problem(s): Primary hypertension Please check blood pressure daily and record DASH diet Limit caffeine Take medication as directed Contact office if chest pain, pressure, dizziness, shortness of breath, swelling legs Recommend slow position changes Current meds: losartan/hydrochlorothiazide, b shirley Associated Problem(s): RLS (restless legs syndrome) mirapex Associated Problem(s): COPD (chronic obstructive pulmonary disease) with emphysema ([facility]) Current meds: trelegy Associated Problem(s): Diabetic polyneuropathy associated with type 2 diabetes mellitus (HCC) Freq foot exams Proper fitting shoes Good blood glucose control documented in this encounter [facility] 11-02-2024 Instructions Coni Osorio NP - 11/02/2024 10:00 AM EDT 25 units twice a day Mammogram and lung cancer screening CT : [facility], they should call you, if not in 2 weeks call them: [phone] documented in this encounter [facility] 11-02-2024 Evaluation note Diagnosis Tobacco dependency- Primary Tobacco use disorder Type 2 diabetes mellitus with stage 3a chronic kidney disease, with long-term current use of insulin (HCC) Mixed hyperlipidemia Mixed hyperlipidemia Pulmonary emphysema, unspecified emphysema type (HCC) Primary hypertension Unspecified essential hypertension Encounter for screening for malignant neoplasm of colon Encounter for screening mammogram for malignant neoplasm of breast Encounter for Medicare annual wellness exam Type 2 diabetes mellitus with stage 3a chronic kidney disease, with long-term current use of insulin (HCC)- Primary Hyperlipidemia, unspecified hyperlipidemia type Pulmonary emphysema, unspecified emphysema type (HCC) Primary hypertension Unspecified essential hypertension Mixed hyperlipidemia Mixed hyperlipidemia Moderate episode of recurrent major depressive disorder (HCC) Psychophysiological insomnia Persistent disorder of initiating or maintaining sleep Type 2 diabetes mellitus with stage 3a chronic kidney disease, with long-term current use of insulin (HCC)- Primary Primary hypertension Unspecified essential hypertension Type 2 diabetes mellitus with stage 3a chronic kidney disease, with long-term current use of insulin (HCC)- Primary Mixed hyperlipidemia Mixed hyperlipidemia Primary hypertension Unspecified essential hypertension Chronic diastolic congestive heart failure (HCC) Diabetic polyneuropathy associated with type 2 diabetes mellitus (HCC) Lumbar stenosis with neurogenic claudication Pulmonary emphysema, unspecified emphysema type (HCC) Type 2 diabetes mellitus with stage 3a chronic kidney disease, with long-term current use of insulin (HCC) Chronic diastolic congestive heart failure (HCC) Primary hypertension Unspecified essential hypertension Diabetic polyneuropathy associated with type 2 diabetes mellitus (HCC)- Primary Pulmonary emphysema, unspecified emphysema type (HCC) RLS (restless legs syndrome) Restless legs syndrome (RLS) Primary hypertension Unspecified essential hypertension Psychophysiological insomnia Persistent disorder of initiating or maintaining sleep Chronic diastolic congestive heart failure (HCC) Chronic gout of multiple sites, unspecified cause Chronic kidney disease, stage 3a (CMS-HCC) Secondary hyperparathyroidism of renal origin (HCC) Secondary hyperparathyroidism (of renal origin) Type 2 diabetes mellitus with stage 3a chronic kidney disease, with long-term current use of insulin (HCC) Mixed hyperlipidemia Mixed hyperlipidemia Cigarette nicotine dependence without complication [id number] Evaluation note* Diagnosis Tobacco dependency- Primary Tobacco use disorder Type 2 diabetes mellitus with stage 3a chronic kidney disease, with long-term current use of insulin (HCC) Mixed hyperlipidemia Mixed hyperlipidemia Pulmonary emphysema, unspecified emphysema type (HCC) Primary hypertension Unspecified essential hypertension Encounter for screening for malignant neoplasm of colon Encounter for screening mammogram for malignant neoplasm of breast Encounter for Medicare annual wellness exam Type 2 diabetes mellitus with stage 3a chronic kidney disease, with long-term current use of insulin (HCC)- Primary Hyperlipidemia, unspecified hyperlipidemia type Pulmonary emphysema, unspecified emphysema type (HCC) Primary hypertension Unspecified essential hypertension Mixed hyperlipidemia Mixed hyperlipidemia Moderate episode of recurrent major depressive disorder (HCC) Psychophysiological insomnia Persistent disorder of initiating or maintaining sleep Type 2 diabetes mellitus with stage 3a chronic kidney disease, with long-term current use of insulin (HCC)- Primary Primary hypertension Unspecified essential hypertension Type 2 diabetes mellitus with stage 3a chronic kidney disease, with long-term current use of insulin (HCC)- Primary Mixed hyperlipidemia Mixed hyperlipidemia Primary hypertension Unspecified essential hypertension Chronic diastolic congestive heart failure (HCC) Diabetic polyneuropathy associated with type 2 diabetes mellitus (HCC) Lumbar stenosis with neurogenic claudication Pulmonary emphysema, unspecified emphysema type (HCC) Encounter for Medicare annual wellness exam- Primary Diabetic polyneuropathy associated with type 2 diabetes mellitus (HCC) Pulmonary emphysema, unspecified emphysema type (HCC) RLS (restless legs syndrome) Restless legs syndrome (RLS) Primary hypertension Unspecified essential hypertension Psychophysiological insomnia Persistent disorder of initiating or maintaining sleep Chronic diastolic congestive heart failure (HCC) Chronic gout of multiple sites, unspecified cause Chronic kidney disease, stage 3a (CMS-HCC) Secondary hyperparathyroidism of renal origin (HCC) Secondary hyperparathyroidism (of renal origin) Type 2 diabetes mellitus with stage 3a chronic kidney disease, with long-term current use of insulin (HCC) Mixed hyperlipidemia Mixed hyperlipidemia Cigarette nicotine dependence without complication Encounter for screening mammogram for malignant neoplasm of breast Moderate episode of recurrent major depressive disorder (HCC) Hypomagnesemia Disorders of magnesium metabolism [id number] Telephone encounter Note* Telephone Encounter - Coni Osorio NP - 10/05/2024 8:05 AM EDT Please contact pt, she has not had labs completed in over a year. I filled her paxil, but her othermeds I cannot fill until I have some updated labs, these are fasting 8 hours and see where they need faxed. Also make sure she keeps her scheduled appt [id number] Miscellaneous Notes* Telephone Encounter - Coni Osorio NP - 10/05/2024 8:05 AM EDT Please contact pt, she has not had labs completed in over a year. I filled her paxil, but her othermeds I cannot fill until I have some updated labs, these are fasting 8 hours and see where they need faxed. Also make sure she keeps her scheduled appt for November [id number] Evaluation note* Diagnosis Tobacco dependency- Primary Tobacco use disorder Type 2 diabetes mellitus with stage 3a chronic kidney disease, with long-term current use of insulin (HCC) ([facility]/HCC) Mixed hyperlipidemia ([facility]/HCC) Mixed hyperlipidemia Pulmonary emphysema, unspecified emphysema type [...] documented [id number] Evaluation note* Diagnosis Tobacco dependency- Primary Tobacco [...] documented [id number] Evaluation note* Diagnosis Tobacco dependency- Primary Tobacco [...] emphysema, unspecified emphysema type (CMS/HCC) Mixed hyperlipidemia ([facility]/HCC) Mixed hyperlipidemia [id number] History of Present illness Narrative* Nadja Fulton, BERHANE - 01/06/2024 3:30 PM EDT Images from the original note were not included. Subjective Patient ID: Vidhya Ibarra is a 68 y.o. female who presents for DM Foot Care (Vidhya Ibarra 68yoNew patient with referral from [facility], for Diabetic foot exam, neuropathic. BS 140 A1C7.5 Migel [facility] 12/14/2023 SS 8). HPI Initial patient encounter [...] once daily, Disp: 90 tablet, Rfl: 1 Neiwyacytot-Pajylnbux-Ppksoh (Trelegy Ellipta) 200-62.5-25 MCG/ACT aerosol powder , [...] Couch Hypertension Father Sara Couch Diabetes Father Sara Couch Alcohol abuse Father Sara Couch Cancer [...] understanding. Nadja Fulton DPM documented in this [facility]09-04-2024 Instructions* Patient Instructions* Nadja Fulton DPM - 01/06/2024 3:30 PM EDT Instructions as noted documented in this [facility]11-08-2023 Evaluation note* Encounter Date Diagnosis Assessment [...] I have prescribed oral magnesium once daily. [facility] Other 03-16-2023 NotePAIN MANAGEMENT CONSULTATION CONSULTATION DATE: [...] in three months' time unless otherwise indicated.[id number] NoteCONSULTATION CONSULTATION DATE: 04/10/2022 HISTORY OF PRESENT [...] weeks ago, and she completed those in [place]. She is continuing her home exercises as [...] thereafter. Patient does agree with this plan.[facility] [id number] NoteCONSULTATION CONSULTATION DATE: 01/09/2022 HISTORY OF PRESENT [...] weeks. Patient prefers to do this in [place]. She will be followed up in the office in three months' time and was encouraged to take a multivitamin daily. Patient agrees with this plan of care. [facility] [id number] NoteCONSULTATION CONSULTATION DATE: 10/17/2021 HISTORY OF PRESENT [...] in three months' time unless otherwise indicated. PSYCHIATRIC Signed and Approved by: EVA ROSEN . 10/30/2021 16:23:00[facility]06-16-2022 NoteCONSULTATION PROCEDURE DATE:10/17/2021 PREOPERATIVE DIAGNOSIS: Bilateral [...] will be followed up in the office. PSYCHIATRIC Signed and Approved by: EVA ROSEN . 10/30/2021 16:23:00[facility]01-21-2022 Evaluation note* Encounter Date Diagnosis Assessment [...] at this point no intervention is needed. [facility] Other 12-07-2021 Evaluation note* Encounter Date Diagnosis [...] - M50.123) Apr, Cardiomegaly (ICD-10 - I51.7) [facility] Other 01-15-2021 History of Present illness Narrative* [...] she will follow-up after testing is completed [facility] Work Phone: [phone] 655-742001-10-2021 History of Present illness Narrative* Patient is [...] she will follow-up after testing is completed [facility] Work Phone: [phone]) 744-842408-01-2020 History general Narrative - Reported* Type Description Date Medical History TYPE II DIABETES Medical History HYPERTENSION Medical History ENLARGE HEART Surgical History CHOLECYSTECTOMY Hospitalization History PNEUMONIA 12/2019 [facility] Other chief complaint Narrative - ReportedLINDA FRED is being seen for a consultation for [facility]omegaly.[facility] Work Phone: Chijx complaint Narrative - ReportedVIDHYA IBARRA is being seen for a consultation for cardiomegaly.[facility] Work Phone: Consult note Author Yakelin Staley [facility] March 25, 2023 10:10am Note Date/Time March 24, 2023 1:49pm [facility] [place] [address] Hem/Onc Consult Note - OP Signed Patient: Vidhya Ibarra MR#: [id number] : 1955 Acct:[id number] Age/Sex: 67 / F Type: REG RCR [...] any worse than it does when touched. [facility] - Medical History Medical [...] for coordination of care (as documented) and [id number] counseling of patient and/or family. Dictated By: Yakelin Staley APRN DD/ 1349 Signed By: <Electronically signed by JOSE Staley> 03/25/23 1010 [facility] Work Phone: Evaluation noteNo assessment information available [facility] Work Phone: Evaluation noteNo InformationNort Shopular Other Evaluation note* Diagnosis Onset Date Resolution Status Leukocytosis acute Breast nodule acute Leukocytosis acute Recurrent boils acute Yeast infection acute [facility] Work Phone: Evaluation note* Diagnosis Onset Date Resolution Status Breast nodule acute Leukocytosis acute Recurrent boils acute Yeast infection acute Leukocytosis acute Breast nodule acute Leukocytosis acute Recurrent boils acute Yeast infection acute [facility] Work Phone: Evaluation note* Diagnosis Tobacco dependency- [...] diabetes mellitus (CMS/HCC) documented in this encounter [facility] HealthcareEvaluation note* Diagnosis Onset Date Resolution Status Admit Date CKD (chronic kidney disease) stage 3, GFR 30-59 ml/min acute March 11:14am Hepatic cyst acute March 11:14am Hypertensive chronic kidney disease with stage 1 through stage 4 chronic ki acute March 22, 11:14am Hyperuricemia acute March 222023 11:14am Hypomagnesemia acute March 042023 11:14am Leukocytosis acute March, 2023 11:14am Secondary hyperparathyroidism acute March 22, 2024 11:14am Type 2 diabetes mellitus wit h diabetic chronic kidney disease acute March 22, 2024 11:14am [facility] Work Phone: Evaluation note* Diagnosis Moderate episode of recurrent major depressive disorder (CMS/HCC) documented in this encounter [facility] HealthcareEvaluation note* Diagnosis Dermatophytosis of nail- Primary Type 2 diabetes mellitus with stage 3a chronic kidney disease, with long-term current use of insulin (HCC) (CMS/HCC) Diabetic polyneuropathy associated with type 2 diabetes mellitus (CMS/HCC) Dystrophic nail Other specified disease of nail documented in this encounter [facility] HealthcareEvaluation note* Diagnosis Type 2 diabetes mellitus with stage 3a chronic kidney disease, with long-term current use of insulin (HCC) (CMS/HCC) documented in this encounter [facility] HealthcareEvaluation note* Diagnosis Tobacco dependency- Primary Tobacco [...] diabetes mellitus (CMS/HCC) documented in this encounter [facility] HealthcareEvaluation note* Diagnosis Tobacco dependency- Primary Tobacco [...] Unspecified essential hypertension documented in this encounter [facility] HealthcareEvaluation note* Diagnosis Tobacco dependency- Primary Tobacco [...] sites, unspecified cause documented in this encounter [facility] HealthcareEvaluation note* Diagnosis Onset Date Resolution Status Admit Date CKD (chronic kidney disease) stage 3, GFR 30-59 ml/min acute November 03 11:06am Hepatic cyst acute November 03 11:06am Hypertensive chronic kidney disease with stage 1 through stage 4 chronic ki acute November 03, 2024 11:06am Hyperuricemia acute November 03, 2 025 11:06am Hypomagnesemia acute November 03, 2024 11:06am Leukocytosis acute November 03 11:06am Secondary hyperparathyroidism acute November 03, 2024 11:06am Type 2 diabetes mellitus wit h diabetic chronic kidney disease acute November 03, 2024 11:06am [facility] Work Phone: History of Present illness Narrative* [...] weight loss and more importantly smoking cessation. [facility] 250 DO Work Phone: Hospital Discharge instructionsAmbulatory Orders* Referral to General Surgery Time Frame: 06/24/23, Location: None Selected [facility] Work Phone: Progress note Author Re[facility]a [facility] June 24, 2023 10:45am Note Date/Time June 24, 2023 10:07am [facility] [place] [address] Cancer Center Note Signed Patient: Vidhya Ibarra MR#: [id number] : 1955 Acct:[id number] Age/Sex: 67 / F Type: REG AMB [...] % (Auto) 74.3 Lymph % (Auto) 18.0 Richardson % (Auto) 5.2 Eos % (Auto) 1.7 Baso % (Auto) 0.8 Nucleat RBC Rel Count 0.1 Neut # (Auto) 10.6 H Lymph # (Auto) 2.6 Richardson # (Auto) 0.7 Eos # (Auto) 0.2 [...] signed by Rebeca Ashraf MD> 06/24/23 1045 [facility] Work Phone: Reason for referral (narrative)No reason for referral information availableRiverview Health Institute Work Phone: Summary Purpose Family History Unknown [...] Treat Diagnosis 1 Cardiomegaly (I51.7) Referral Organization [facility] urosurgery Referring Provider First Name Juan Referring Provider Last Name Carlos Referring Provider Specialty Neurologica l Surgery Referred Organization [facility] Referred Provider Jason Johnson Referred Address [address] ,[place], [place],[address] Referred Provider Specialty Cardiac Surg nicholas Referral Priority Routine General Notes Neena Estevez 021 08:49:37 AM >Received today and waiting for office notes to be lockedCore[facility] HospitalNeena 04/16/2021 03:27:00 PM >[facility] office request us to fax the referral to them and they will review and call patient to schedule their appointment. Referral was fax Reason Evaluate and Treat Diagnosis 1 Cervical disc disord er at C5-C6 level with radiculopathy (M50.122) Referral Organization [facility] urosurgery Referring Provider First Name Juan [...] K76.89, E79.0, N18.30 Ma y 2024 7:44am Chief Complaint Admit Date N25.81, E83.42, K76.89, E79.0, N18.30 Ma y 2024 7:44am RENAL 6 MONTH F/U November 03, 2024 11:06 am Reason for Visit Admit Date CKD (chronic kidney disease) stage 3, GF R 30-59 ml/min November 03, 2024 11:06am Hepatic cyst November 03, 2024 11:06 am Hypertensive chronic kidney disease with stage 1 through stage 4 chronic ki November 03, 2024 11:06am Hyperuricemia November 03, 2024 11:06 am Hypomagnesemia November 03, 2024 11:06 am Leukocytosis November 03, 2024 11:06 am Secondary hyperparathyroidism November 03, 2024 11:06am Type 2 diabetes mellitus with diabetic c hronic kidney disease November 03, 2024 11:06am Additional Source Comments INFORMATION SOURCE (unrecogn ized section and content) DATE CREATED AUTHOR 12/03/2019 [facility] DATE CREATED AUTHOR AUTHOR'S ORGANIZ ATION 05/26/2021 [facility] DATE CREATED AUTHOR AUTHOR'S ORGANIZ ATION 10/10/2022 [facility] DATE CREATED AUTHOR AUTHOR'S ORGANIZ ATION 12/08/2022 [facility] DATE CREATED AUTHOR AUTHOR'S ORGANIZ ATION 12/09/2022 [employer] DATE CREATED AUTHOR AUTHOR'S ORGANIZ ATION 10/13/2023 [facility] DATE CREATED AUTHOR AUTHOR'S ORGANIZ ATION 10/02/2024 [facility] DATE CREATED AUTHOR AUTHOR'S ORGANIZ ATION 11/04/2024 [facility] Special[facility] EPIC REASON FOR VISIT (unrecogniz ed section and content) Reason Onset Date Comments Med Refill 02/15/2024 Reason Onset Date Comments Med Refill 01/18/2024 Reason Comments DM Foot Care Vidhya Ricoraffy 68yo New patient with referral from [facility], for Diabetic foot exam, neuropathic. BS 140 A1C7.5 Migel Carver 12/14/2023 SS 8 Specialty Diagnoses / Procedures Referred By Nicolas larios Referred To Contact Podiatry Diagnoses Type 2 diabetes mellitus with stage 3a chronic kidney disease, with long-term current use of insulin (HCC) ([facility]) Diabetic polyneuropathy associated with type 2 diabetes mellitus ([facility]) Procedures SC OFFICE/OUTPATIENT NEW HIGH MDM 60 MINUTES Migel Carver, CARTOGRAPHY SUPERVISOR [address] [place] [address] Alysia Rhodes, DPM [address] [place] [address] Referral ID Status Reason Start Date Expiration Date V isits Requested Visits Authorized [id number] Closed Specialty Services Required 12/14/2023 06/11/2024 1 1 Reason Onset Date Comments Med Refill 01/11/2024 Reason Comments Med Refill Reason Onset Date Comments Med Refill 05/12/2024 Reason Onset Date Comments Med Refill 05/24/2024 Reason Onset Date Comments Med Refill 08/03/2024 Reason Onset Date Comments Med Refill 08/08/2024 Reason Onset Date Comments Med Refill 10/05/2024 Reason Comments Medicare Annual Wellness Visit Initial Care Teams (unrecognized sec tion and content) [...] September 12, 2023 End: September 12, 2023 Pretzel Packer Relationship Specialty Start Date End Date Shaikh Mchugh MD [address] [place] [address] PCP - General Internal Medicine 07/03/23 Team Status: Active Member Role Status Dates Migel Carver CARTOGRAPHY SUPERVISOR-C Primary Care Provider Ac tive Team Status: Inactive Member Role Status Dates MADAY Peña Primary [...] March 22, 2024 End: March 22, 2024 Pretzel Packer Relationship Specialty Start Date End Date Shaikh Mchugh MD [address] [place] [phone] PCP - General Internal Medicine 07/03/23 Pretzel Packer Relationship Specialty Start Date End Date Shaikh Mchugh MD [address] [place] [phone] PCP - General Internal Medicine 07/03/23 Pretzel Packer Relationship Specialty Start Date End Date Shaikh Mchugh MD [address] [place] [address] PCP - General Internal Medicine 07/03/23 Pretzel Packer Relationship Specialty Start Date End Date Gaetano Andrea MD [address] [place] [address] PCP - General Family Medicine 04/18/24 Migel Carver NP [address] [place] [address] Nurse Practitioner Family Medicine 04/18/24 Pretzel Packer Relationship Specialty Start Date End Date Gaetano Andrea MD [address] [place] [address] PCP - General Family Medicine 04/18/24 Migel Carver NP [address] [place] [address] Nurse Practitioner Family Medicine 04/18/24 Pretzel Packer Relationship Specialty Start Date End Date Gaetano Andrea MD [address] [place] [address] PCP - General Family Medicine 04/18/24 Migel Carver NP [address] [place] [address] Nurse Practitioner Family Medicine 04/18/24 Pretzel Packer Relationship Specialty Start Date End Date Gaetano Andrea MD [address] [place] [address] PCP - General Family Medicine 04/18/24 Migel Carver NP [address] [place] [address] Nurse Practitioner Family Medicine 04/18/24 Pretzel Packer Relationship Specialty Start Date End Date Gaetano Andrea MD [address] [place] [address] PCP - General Family Medicine 04/18/24 Migel Carver NP [address] [place] [address] Nurse Practitioner Family Medicine 04/18/24 Team Status: Active Member Role Status Dates PHYSICIAN NO FAMILY Primary Care Provider Active Team Status: Inactive Member Role Status Dates PHYSICIAN NO FAMILY Primary Care Provider Active Start: September 30, 2024 End: September 30, 2024 Alta Schmid MD Attending Provider Active Start : September 30, 2024 End: September 30, 2024 Pretzel Packer Relationship Specialty Start Date End Date Gaetano Andrea MD [address] [place] [address] PCP - General Family Medicine 04/18/24 Migel Carver NP [address] [place] [address] Nurse Practitioner [facility] 04/18/24 Pretzel Packer Relationship Specialty Start Date End Date Gaetano Andrea MD [address] [place] [address] PCP - General Family Medicine 04/18/24 Migel Carver NP [address] [place] [address] Nurse Practitioner [facility] Medicine 04/18/24 Pretzel Packer Relationship Specialty Start Date End Date Gaetano Andrea MD [address] [place] [address] PCP - General Family Medicine 04/18/24 Migel Carver NP [address] [place] [address] Nurse Practitioner Family Medicine 04/18/24 Pretzel Packer Relationship Specialty Start Date End Date Gaetano Andrea MD [address] [place] [address] PCP - General Family [facility] 04/18/24 Migel Carver NP [address] [place] [address] Nurse Practitioner [facility] 04/18/24 Team Status: Inactive Member Role Status Dates Alta Schmid MD Attending Provider Active Start : November 03, 2024 End: November 03, 2024 PHYSICIAN NO FAMILY Primary Care Provider Active Start: November 03, 2024 End: November 03, 2024 Pretzel Packer Relationship Specialty Start Date End Date Gaetano Andrea MD [address] [place] [address] PCP - [facility] 04/18/24 Migel Carver NP [address] [place] [address] Nurse Practitioner [facility] 04/18/24 Goals (unrecognized section and content) Goals [...] BE BASED ON THE PRIMARY CLINICAL RECORDS. [facility]. provides no warranty or guarantee of the accuracy or completeness of information in this document.
== END 2025-01-05 09:18 | disposition home or self-care (01) ==
LOC: PM 09:17
PROVIDERS: PCP Nurse Practitioner; Visit Provider Nurse Practitioner
DX: M48.062 Spinal stenosis, lumbar region with neurogenic claudication (principal); E11.40 Type 2 diabetes mellitus with diabetic neuropathy, unspecified; Z79.891 Long term (current) use of opiate analgesic; M24.28 Disorder of ligament, vertebrae; M47.816 Spondylosis without myelopathy or radiculopathy, lumbar region; M62.838 Other muscle spasm; M51.369 Other intervertebral disc degeneration, lumbar region without mention of lumbar back pain or lower extremity pain
CPT/HCPCS: G0463

== ENCOUNTER 2025-02-15 09:34 | Outpatient (OUT) | payer MEDICARE, SELFPAY ==
--- NOTE | 2025-02-15 09:38 | MM_ITS ---
Patient Name: ZAYRA IBARRA MR#: [id number] : 1955 Exam Date: 02/15/2025 Ordering Doctor: FRANK SEVERINO CNP RADIOLOGY REPORT PROCEDURE: MM TOMOSYNTHESIS SCREENING BI COMPARISON: MG MAMM SCREEN 3D JASON CAD, 11/12/2020. MG MAMM SCREEN JASON W CAD, 05/22/2016. MG MAMM SCREEN JASON W CAD, 11/20/2010. INDICATIONS: Screening Calculator Name NCI Breast Cancer Risk Assessment Tool 5 Year Breast Cancer Risk 1.90% Lifetime Breast Cancer Risk 5.90% Personal Breast Cancer No Personal Ovarian Cancer No Treatments None Family Cancers Father with unknown cancer at age 56. LOCATION: [facility] BREAST COMPOSITION: There are scattered areas of fibroglandular density. FINDINGS: DIAGNOSTIC CATEGORY 1--NEGATIVE. RIGHT BREAST: No significant suspicious finding. LEFT BREAST: No significant suspicious finding. RECOMMENDATIONS: ROUTINE MAMMOGRAM AND CLINICAL EVALUATION IN 12 MONTHS. Dictated by: Petros Morrow MD on 02/15/2025 at 14:58 Approved by: Petros Morrow MD on 02/15/2025 at 15:00
== END 2025-02-15 09:35 | disposition home or self-care (01) ==
LOC: MAMMO 09:34
PROVIDERS: PCP Nurse Practitioner; Visit Provider Nurse Practitioner
DX: Z12.31 Encounter for screening mammogram for malignant neoplasm of breast (principal); Z80.8 Family history of malignant neoplasm of other organs or systems
CPT/HCPCS: 77063; 77067

== ENCOUNTER 2025-04-06 10:04 | Outpatient (OUT) | payer MEDICARE, SELFPAY ==
--- OUTSIDE RECORDS SUMMARY | 2025-04-06 10:07 | XMS_ITS | Clinical Summary ---
Author Organization [facility] Address [address] [place] [address] Care Team Providers Care Veneer Matcher Name Role Phone Unavailable Primary Care Provider Unavailabl e Social History Tobacco UseTypesPacks/DayYears UsedDateSmoking Tobacco: Never Assessed CommentsUnknownSex and Gender InformationValueDate RecordedSex Assigned at Not on fileLegal OspBjtuao92/29/2022 11:40 PM EDTGender IdentityNot on file Sexual OrientationNot on file Plan of Treatment Not on file
--- OUTSIDE RECORDS SUMMARY | 2025-04-06 10:07 | XMS_ITS | Clinical Summary ---
Author Organization [facility] Address [address] [place] [address] Phone Care Team Providers Care Information Resource Consultant Name Role Phone Shaikh ALO Mchugh Primary Care Provider [phone] Social History Tobacco UseTypesPacks/DayYears UsedDateSmoking Tobacco: Never AssessedPHQ-2 AnswerDate RecordedPatient Health Questionnaire-2 Clopc502regnant CommentsUnknownSex and Gender InformationValueDate RecordedSex Assigned at Not on fileLegal AsiMgtozy03/26/2022 11:16 AM ESTGender IdentityNot on file Sexual OrientationNot on file Last Filed Vital Signs Vital SignReadingTime TakenCommentsBlood Gwovdkoc480/6008 8:41 AM EDT Rngsk226012/08/2022 8:41 AM EDTTemperature--Respiratory Rate--Oxygen Saturation-- Inhaled Oxygen Concentration--Egwslq04.4 kg (186 lb)12/08/2022 8:41 AM EDTHeight 160 cm (5' 3 )12/08/2022 8:41 AM EDTBody Mass Index32.9508 8:41 AM EDT Plan of Treatment Health MaintenanceDue DateLast DoneCommentsCT Kdpbppgkfldi18/17/1956Colonoscopy 1955olorectal Cancer Ejzcjjyfb16/17/1956FIT-DNA (Cologuard)1955FIT 1955Lipid Panel1955 3631Cbojoaagpbkgi65/17/1956Yearly Adult Physical 1955MMR Vaccines (1 of 1 - Standard series)11/17/1956Hepatitis C Screening 11/17/1973DTaP/Tdap/Td Vaccines (1 - Tdap)11/17/19772448Djyuxvzmo40/17/1996 Pneumococcal Vaccine (1 of 1 - PCV)11/17/2005Zoster Vaccines (1 of 2)11/17/2005 Bone Density Scan11/17/2020Influenza Vaccine (#1)2024OVID-19 Vaccine (1 - 2024- season)2025RSV High Risk: (Elderly (60+) or Population) (1 - 1-dose 75+ series)11/17/2030HIB VaccinesAged OutNo longer eligible based on patient's age to complete this topicHPV VaccinesAged OutNo longer eligible based on patient's age to complete this topicHepatitis A VaccinesAged OutNo longer eligible based on patient's age to complete this topicHepatitis B VaccinesAged OutNo longer eligible based on patient's age to complete this topicIPV Vaccines Aged OutNo longer eligible based on patient's age to complete this topic Meningococcal VaccineAged OutNo longer eligible based on patient's age to complete this topicRotavirus VaccinesAged OutNo longer eligible based on patient's age to complete this topic Care Teams Team MemberRelationshipSpecialtyStart DateEnd Date Shaikh Mchugh MD PCP - General05/04/20
--- OUTSIDE RECORDS SUMMARY | 2025-04-06 10:07 | XMS_ITS | Clinical Summary ---
Author Organization [facility] Address [address] [place] [address] Care Team Providers Care [employer] Name Role Phone Gaetano Andrea MD Primary Care Provider [phone] Marilee Carver TERMINAL CARMAN Unavailable [phone] Lisbeth Champion TERMINAL CARMAN Unavailable [phone] Allergies Active AllergyReactionsCriticalityNoted DateCommentsPrednisoloneHivesMedium 9867FbyvmbajbmTqvay86/03/2024 Medications MedicationSigDispense QuantityRefillsLast FilledStart DateEnd DateStatus Glucose Blood (BLOOD GLUCOSE TEST STRIPS 333 ) 1 strip by In Vitro route 5 (five) times a dayActive aspirin 81 MG EC tablet Take 1 tablet by mouth in the morning.Active oxyCODONE-acetaminophen (Percocet) 5-325 MG tablet Take 1 tablet by mouth every 12 (twelve) hours if needed for severe painActive naloxone (Narcan) 4 mg/0.1 mL nasal spray Administer 4 mg into affected nostril(s) if hoeakf534Active gabapentin (Neurontin) 300 MG capsule Take 300 mg by mouth in the morning and 300 mg at noon and 300 mg in the evening and 300 mg before bedtime.5Active Jillnvvixqn-Iuxxhbnzo-Mmnomq (Trelegy Ellipta) 200-62.5-25 MCG/ACT aerosol powder Indications:Pulmonary emphysema, unspecified emphysema type (HCC)Inhale 1 puff Daily Rinse mouth after use 180 each 5Active atorvastatin (Lipitor) 40 MG tablet Indications:Mixed hyperlipidemiaTake 1 tablet (40 mg) by mouth in the morning. 90 tablet 5Active bumetanide (Bumex) 0.5 MG tablet Indications:Chronic diastolic congestive heart failure (HCC)Take 1 tablet (0.5 mg) by mouth Daily Take 1 tablet (0.5 mg) by mouth Daily 90 tablet 5Active glipiZIDE (Glucotrol) 10 MG tablet Indications:Type 2 diabetes mellitus with stage 3a chronic kidney disease, with long-term current use of insulin ([facility])Take 1 tablet (10 mg) by mouth in the morning and 1 tablet (10 mg) in the evening. Take before meals. 180 tablet 11/02/2024tive insulin NPH-insulin regular (NovoLIN 70/30 FlexPen Relion) (70-30) 100 UNIT/ML injection Indications:Type 2 diabetes mellitus with stage 3a chronic kidney disease, with long-term current use of insulin ([facility])Inject 25 Units under the skin in the morning and 25 Units in the evening. Inject before meals. 45 mL 5Active losartan-hydroCHLOROthiazide (Hyzaar) 100-25 MG tablet Indications:Primary hypertensionTake 1 tablet by mouth in the morning. 90 tablet 11/02/2024tive metoprolol tartrate (Lopressor) 50 MG tablet Indications:Primary hypertensionTake 1 tablet (50 mg) by mouth in the morning and 1 tablet (50 mg) before bedtime. 180 tablet 5Active PARoxetine (Paxil) 20 MG tablet Indications:Moderate episode of recurrent major depressive disorder (HCC)Take 1 tablet (20 mg) by mouth in the morning. 90 tablet 5Active pramipexole (Mirapex) 0.25 MG tablet Indications:RLS (restless legs syndrome)Take 1 tablet (0.25 mg) by mouth at bedtime 90 tablet 5Active traZODone (Desyrel) 100 MG tablet Indications:Psychophysiological insomniaTake 1.5 tablets (150 mg) by mouth at bedtime 135 tablet 5Active Blood Glucose Monitoring Suppl (ONE TOUCH ULTRA 2) w/Device kit Indications:Type 2 diabetes mellitus with stage 3a chronic kidney disease, with long-term current use of insulin ([facility])1 kit Daily 1 kit 6Active Active Problems ProblemNoted DateDiagnosed DateSecondary hyperparathyroidism of renal origin 11/02/2024 Overview (11/02/2024): Noted by PERICO GASCA MD last documented on [id number] 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 Options for quitting smoking include: cold turkey, hypnosis, acupuncture, nicotine replacement meds(gum, lozenges, and patches), Buproprion, and Varenicline. At this time pt is encouraged to evaluate their goals for wanting to quit smoking, and reach out toprovider when ready to start this process Lhrcwxitkkisnj06/02/2025Chronic gout of multiple sites10/05/2024 Assessment & Plan (11/02/2024 7:13 AM EDT): Allopurinol Check labs yearly and prn dose changes or changes in sxs Degeneration of lumbar intervertebral disc07/13/2023epressive disorder 07/13/20231509Wriwvtqgsnne84/11/2024Moderate episode of recurrent major depressive qliojwhx91/11/2024 Assessment & Plan (07/13/2023 1:29 PM EDT): Her symptoms were well controlled on Paxil. She reports anhedonia, unstable mood, frequent crying, and depressive symptoms. She has not been using it for 3 months now. She is unsure what happened to her prescription and with the switch over to new system, how her prescription got dropped. She neverreached out to use for a refill. Will restart paxil at 20 mg. Psychophysiological ficworzl47/11/2024 Assessment & Plan (11/02/2024 7:12 AM EDT): Trazodone for sleep Assessment & Plan (07/13/2023 1:32 PM EDT): On trazodone. Was working well until she stopped using paxil Will resume paxil for depression Follow up in 2 months and will address insomnia if persistent and still struggling with it Abscess of left groin07/03/2023Type 2 diabetes mellitus with stage 3a chronic kidney disease, with long-term current use of lkaqaqf0904/13/2023 Assessment & Plan (11/02/2024 7:16 AM EDT): Check blood sugars daily, notify if <70 or >200. Take medications (pills or insulin) as directed. Monitor for s/s of hypoglycemia (sweaty, dizziness, nausea, vomiting, or shakiness). Watch for increase in thirst, urination, or appetite. Inspect feet frequently monitoring for open wounds , andalso recommend yearly eye exam. Pt should attempt [...] hypoglycemia/hyperglycemia on home glucose monitoring noted. Mixed xjgxtgsrhjiajc48/11/2023 Assessment & Plan (11/02/2024 7:17 AM EDT): On statin therapy Check labs yearly and prn dose changes Assessment & Plan (12/14/2023 11:00 AM EDT): Continue Atorvastatin as directed. Assessment & Plan (07/13/2023 1:25 PM EDT): On Lipitor 40 mg Check Lipid panel. Assessment & Plan (04/13/2023 9:33 AM EST): On Lipitor 40 mg Check Lipid panel. Primary fdyuktnhxrhv62/11/2023 Assessment & Plan (11/02/2024 7:12 AM EDT): Please check blood pressure daily and record DASH diet Limit caffeine Take medication as directed Contact office if chest pain, pressure, dizziness, shortness of breath, swelling legs Recommend slow position changes Current meds: losartan/hydrochlorothiazide, b shirley Assessment & Plan (12/14/2023 10:58 AM EDT): Continue Losartan-hydrochlorothiazide, Metoprolol, Bumex, and Aspirin 81mg Sees Cardiology- In [place] Bring BP log to next visit Assessment [...] or persistently elevated BP. RLS (restless legs syndrome)04/13/2023 Assessment & Plan (11/02/2024 7:11 AM EDT): mirapex Diabetic polyneuropathy associated with type 2 diabetes dpvtmpbu98/11/2023 Assessment & Plan (11/02/2024 7:10 AM EDT): Freq foot exams Proper fitting shoes Good blood glucose control Assessment & Plan (12/14/2023 10:56 AM EDT): Continue Gabapentin as directed DM foot exam completed; Advised to wear protective shoes when indoors and outdoors Referral sent to podiatry COPD (chronic obstructive pulmonary disease) with ylbernvzr15/11/2023 Assessment & Plan (11/02/2024 7:11 AM EDT): [...] call it in. Patient counseled and educated onadverse effects, drug interactions and to reach out to office/pharmacy if questions or concerns related to new medications. Chronic diastolic congestive heart wkmqgma7704/13/2023 Assessment & Plan (11/02/2024 7:12 AM EDT): Losartan/hydrochlorothiazide, b shirley, diuretics Assessment & Plan (12/14/2023 10:58 AM EDT): Continue Losartan-hydrochlorothiazide, Metoprolol, Bumex, and Aspirin 81mg Sees Cardiology- In [place] Bring BP log to next visit Chronic bilateral low back pain with right-sided gkuruatu53/11/2023Major depressive disorder in full yvnaanmmn00/11/2023Encounter for screening for malignant neoplasm of colon04/13/2023 Assessment & Plan (04/13/2023 9:34 AM EST): Colonoscopy over 10 years ago Will order Cologuard Encounter for screening mammogram for malignant neoplasm of pzdwsl2504/13/2023 Assessment & Plan (04/13/2023 9:34 AM EST): Order Mammogram Encounter for Medicare annual wellness exam04/13/2023 Assessment & Plan (11/02/2024 12:52 PM EDT): [...] vaccine, Shingles vaccine. Lumbar stenosis with neurogenic /06/2023 Assessment & Plan (12/14/2023 10:59 AM EDT): Continue following with Pain Management; Percocet as ordered and directed by PM Ligamentum flavum axlonqjubvc26/06/2023Hx of degenerative disc jtstbxn5604/08/2023 Muscle spasm04/08/2023Lumbar rlyjvipgjcppc70/06/2023 Resolved Problems ProblemNoted DateDiagnosed DateResolved DateTobacco jtipmyakaj36/11/2023 11/02/2024 Assessment & Plan (04/13/2023 9:34 AM EST): [...] agreeable to try and use nicotine patches. Immunizations ImmunizationAdministration DatesNext DueInfluenza, injectable, MDCK, preservative free, cbfhuntmffxi14/02/2020Influenza, injectable, quadrivalent, preservative free04/05/2017Moderna SARS-CoV-2 Gukzgbuiwvc05/22/2021Pneumococcal Conjugate PCV 1301Pneumococcal Conjugate PCV Pneumococcal Polysaccharide [id number] Family History Medical HistoryRelationNameCommentsCancerChildAlcohol abuseFatherLeslie Couch CancerFatherLeslie CouchDiabetesFatherLeslie CouchHypertensionFatherLeslie Couch CancerMotherAllison CouchDiabetesMotherAllison CouchHeart diseaseMotherAllison CouchHypertensionMotherAllison CouchOtherMotherAllison CouchVaricose veins RelationNameStatusCommentsChildAliveFatherLeslie CouchDeceasedMotherAllison CouchDeceased Social History Tobacco UseTypesPacks/DayYears UsedDateSmoking Tobacco: Every DayCigarettes0.550 Passive Smoke Exposure: CurrentSmokeless Tobacco: Never Tobacco Cessation:Ready to Q uit: Not Asked; Counseling Given: Not Answered Alcohol UseStandard Drinks/WeekCommentsNever0 (1 standard drink = 0.6 oz pure alcohol)Humiliation, Afraid, Rape, and Kick questionnaireAnswerDate Recorded Within the last year, have you been afraid of your partner or ex-partner?No 04/09/2023Within the last year, have you been humiliated or emotionally abused in other ways by your partner or ex-partner?No04/09/2023Within the last year, have you been kicked, hit, slapped, or otherwise physically hurt by your partner or ex-partner?No04/09/2023Within the last year, have you been raped or forced to have any kind of sexual activity by your partner or ex-partner?No04/09/2023 Social Connection and Isolation PanelAnswerDate RecordedIn a typical week, how many times do you talk on the phone with family, friends, or neighbors?Once a week04/09/2023How often do you get together with friends or relatives?Once a week04/09/2023How often do you attend mu-ism or sabianism services?Never 04/09/2023o you belong to any clubs or organizations such as mu-ism groups, unions, fraternal or athletic groups, or school groups?No04/09/2023How often do you attend meetings of the clubs or organizations you belong to?Never04/09/2023 Are you , , , , never , or living with a partner?Vpzmycx4504/09/2023UDIT-CAnswerDate RecordedQ1: How often do you have a drink containing alcohol?Never04/09/2023Q2: How many drinks containing alcohol do you have on a typical day when you are drinking?Patient does not drink 04/09/2023Q3: How often do you have six or more drinks on one occasion?Never 04/09/2023Overall Financial Resource Strain (CARDIA)AnswerDate RecordedHow hard is it for you to pay for the very basics like food, housing, medical care, and heating?Not hard at all04/09/2023HQ-2AnswerDate RecordedPatient Health Questionnaire-2 Oerkb274[facility] [place] [facility] - Occupational Stress QuestionnaireAnswerDate RecordedDo you feel stress - tense, restless, nervous, or anxious, or unable to sleep at night because yourmind is troubled all the time - these days?Only a czcpkx6904/09/2023Exercise Vital Sign AnswerDate RecordedOn average, how many days per week do you engage in moderate to strenuous exercise (like a brisk walk)?0 days04/09/2023On average, how many minutes do you engage in exercise at this level?10 min04/09/2023Hunger Vital SignAnswerDate RecordedWithin the past 12 months, you worried that your food would run out before you got the money to buymore.Never true04/09/2023Within the past 12 months, the food you bought just didn't last and you didn't have money to get more.Never true04/09/2023RAPARE - TransportationAnswerDate RecordedIn the past 12 months, has lack of transportation kept you from medical appointments or from getting medications?No04/09/2023In the past 12 months, has lack of transportation kept you from meetings, work, or from getting things needed for daily living?No04/09/2023Housing Stability Vital SignAnswerDate RecordedIn the last 12 months, was there a time when you were not able to pay the mortgage or rent on time?No04/09/2023In the last 12 months, how many places have you lived?In the last 12 months, was there a time when you did not have a steady place to sleep or slept in ashelter (including now)?No 04/09/2023CommentsUnknownSex and Gender InformationValueDate RecordedSex Assigned at BirthNot on fileLegal TauSykbvu93/15/2023 8:13 PM EDTGender Identity Not on fileSexual OrientationNot on file Last Filed Vital Signs Vital SignReadingTime TakenCommentsBlood Gpkifsgh652/9211/02/2024 10:07 AM EDT Gilpv445711/02/2024 10:07 AM IIZWmufvhqfrzj27.9 ??C (98.5 ??F)11/02/2024 10:07 AM EDTRespiratory Prwv561511/02/2024 10:07 AM EDTOxygen Urtmvzheja81%11/02/2024 10:07 AM EDTInhaled Oxygen Concentration--Aqjvpe10 kg (185 lb 3.2 oz)11/02/2024 10:07 AM TCMJdmtrb265 cm (5' 3 )01/06/2024 3:12 PM EDTBody Mass Index32.8101/06/2024 3:12 PM EDT Plan of Treatment Health MaintenanceDue DateLast DoneCommentsCT Vtwrpysdelor51/17/1956olonoscopy 1955FIT1955FOBT1955Lung Cancer Screening Shared Decision Mszhjq70 1955 0158Beetbzarnttcu80/17/6523Dzltvxqfl57/01/202503/OVID-19 Vaccine ( season)/Influenza Vaccine (#1)2025 02/03/2020, 04/05/2017Diabetes: Hemoglobin A1C506/, 07/16/2023 Diabetes: Retinopathy Ekpawrxkk59/09/2023, 3Diabetes: Urine Protein Iwsjobsvf92/27/342998/, 09/12/2023Medicare Annual Wellness (AWV) /06/2024, 04/13/2023, 04/13/2023olorectal Cancer Screening 05/19/2026FIT-DNA/, 4Pneumococcal Vaccine: 65+ Years Ifprfptun29/19/2021, 05/04/2020, 02/09/2019 Procedures Procedure NamePriorityDate/TimeAssociated DiagnosisCommentsLAB COLOGUARD?? COLON CANCER EPNWGZFcvpgbe23/16/2024 10:23 AM ESTfrom Last 3 Months or Most Recently Relevant to Health Maintenance Results * Cologuard?? colon cancer screening (05/19/2023 10:23 AM EST)Specimen (Source) Anatomical Location / LateralityCollection Method / VolumeCollection Time Received TimeStool Narrative Authorizing ProviderResult TypeResult StatusShaikh Jeison [facility] ORDERABLESFinal Result from Last 3 Months or Most Recently Relevant to Health Maintenance Insurance Care Teams Team MemberRelationshipSpecialtyStart DateEnd Date Gaetano Andrea MD [address] [place] [address] PCP - GeneralFamily Bqlebtlt72/16/24 Lisbeth Champion NP [address] [place] [address] PCP - [facility]11/01/21 Marilee Carver NP Nurse Practitionermily Oageftbj93/16/24
--- OUTSIDE RECORDS SUMMARY | 2025-04-06 10:07 | XMS_ITS | Clinical Summary ---
Author Organization [facility] Address [id number] [place] [address] Care Team Providers Care Procurement [employer]ster Name Role Phone Unavailable Primary Care Provider Unavailabl e Social History Tobacco UseTypesPacks/DayYears UsedDateSmoking Tobacco: Never AssessedChildcare AnswerDate ZwdacdryWcqdmalehUhfrsbk68/12/2019EmploymentAnswerDate Recorded EafeincwcxRokfydj13/12/2019CommentsUnknownSex and Gender Information ValueDate RecordedSex Assigned at BirthNot on fileLegal MygAszfeh83/06/2015 11:34 AM EDTGender IdentityNot on fileSexual OrientationNot on file Plan of Treatment Not on file Medical Devices Not on file
--- OUTSIDE RECORDS SUMMARY | 2025-04-06 10:12 | XMS_ITS | CCD ---
Author Organization [facility]ini[facility] Care Team Providers Care Vegetable Grower Name Role Phone Shaikh Mchugh Unavailable Unavailable Unavailable Juan Gonzalez Unavailable Unavailable Unavailable NAVEEN ., DR ELIGIO Burns Admitting Unavailable HODGE ., DR ELIGIO Burns Consulting Unavailable HODGE ., DR ELIGIO Burns Attending Unavailable FAWVTD, GRAHAM H Primary Care Unavailable ARMANI MIGEL Consulting Unavailable HODGE ., DR ELIGIO Burns Admitting Unavailable FAWVTD, GRAHAM H Primary Care Unavailable ROSEN ., EVA Consulting Unavailable HODGE ., DR ELIGIO Burns Attending Unavailable HODGE ., DR ELIGIO Burns Admitting Unavailable FAWWAD, GRAHAM H Primary Care Unavailable ROSEN ., EVA Consulting Unavailable HODGE ., DR ELIGIO Burns Attending Unavailable FAWVTD, GRAHAM H Primary Care Unavailable LAKSHMIPATHY ., NARENDRANLYLE Admitting Catrina vailable LAKSHMIPATHY ., NARENDSHIRAATH Attending Catrina vailable HODGE ., DR ELIGIO Burns Admitting Unavailable FAWWAD, GRAHAM H Primary Care Unavailable ROSEN ., EVA Consulting Unavailable HODGE ., DR ELIGIO Burns Attending Unavailable FAWWAD, GRAHAM H Primary Care Unavailable ROSEN ., EVA Consulting Unavailable HODGE ., DR ELIGIO Burns Attending Unavailable HODGE ., DR ELIGIO Burns Admitting Unavailable ROSEN ., EVA Consulting Unavailable HODGE ., DR ELIGIO Burns Admitting Unavailable NEENA MACK Primary Care Unavailable HODGE ., DR ELIGIO Burns Attending Unavailable FAWWAD, GRAHAM H Primary Care Unavailable FAWWAD, GRAHAM H Consulting Unavailable FAWWAD, GRAHAM H Attending Unavailable FAWWAD, GRAHAM H Admitting Unavailable FAWWAD, GRAHAM H Consulting Unavailable FAWWAD, GRAHAM H Attending Unavailable FAWWAD, GRAHAM H Admitting Unavailable FAWWAD, GRAHAM H Primary Care Unavailable FAWWAD, GRAHAM H Primary Care Unavailable FAWWAD, GRAHAM H Attending Unavailable FAWWAD, GRAHAM H Admitting Unavailable JUSTO, DR NADJA Malcolm Consulting Unavailable CONNIE ., ANA CRISTINA Consulting Unavailable FAWWAD, GRAHAM H Consulting Unavailable FAWWAD, GRAHAM H Primary Care Unavailable SILAS .EVA Consulting Unavailable NAVEEN ., DR ELIGIO Burns Attending Unavailable NAVEEN ., DR ELIGIO Burns Admitting Unavailable NAVEEN ., DR ELIGIO Burns Admitting Unavailable FAWWAD, GRAHAM H Primary Care Unavailable NAVEEN ., DR ELIGIO Burns Consulting Unavailable NAVEEN ., DR ELIGIO Burns Attending Unavailable McGuinn II, Dr. Shashi Salas Attending Unavailable McGuinn II, Dr. Shashi Salas Referring Unavailable McGuinn II, Dr. Shashi Salas Attending Unavailable MD Yojana Mchugh Primary Care Provider MD Alta Schmid Attending Provider [phone] Alta Schmid Unavailable MD Yojana Mchugh Primary Care Provider [phone] MD Alta Schmid Attending Provider JOSE Staley Attending Provider MD Alta Schmid Referring Provider Neena Hi Unavailable MD Yojana Mchugh Primary Care Provider JOSE Staley Attending Provider MD Alta Schmid Referring Provider MD Yojana Mchugh Primary Care Provider MD Alta Schmid Referring Provider MD Rebeca Ashraf Attending Provider MD Alta Schmid Attending Provider [phone] Giedraitis , Andrius Vytautpaul Attending Unavailable Giedraitis MD, Andrius Vytautas Attending Unavailable Giedraitis MD, Andrius Vytautas Attending Unavailable Giedraitis MD, Andrius Vytautas Attending Unavailable Giedraitis MD, Andrius Vytautas Attending Unavailable Giedraitis , Andrius Vytautas Attending Unavailable Shaikh Mchugh MD Primary Care Provider Wen INVESTOR-C, Migel Stafford Primary Care Provid er Sharmaine PRAJAPATI, Alta Attending Provider Zully PRAJAPATI, Gaetano Primary Care Provider Wen INVESTOR, Migel Unavailable Wen INVESTOR, Migel Unavailable NO FAMILY, PHYSICIAN Primary Care Provider Unava ilable Sharmaine PRAJAPATI, Alta Attending Provider NO FAMILY, PHYSICIAN Primary Care Unavailable Sharmaine, Alta Attending Unavailable Sharmaine, Alta Admitting Unavailable Wen, Migel Stafford Primary Care Unavaila ble Sharmaine, Alta Attending Unavailable Sharmaine, Alta Admitting Unavailable CONI OSORIO Attending Unavailable MIGEL CARVER Attending UnavailNADJA Su Attending Unavailable MIGEL CARVER Referring Unavailbelle Osorio NP-C, Coni Fitzgerald Primary Care Provider Jo INVESTOR-C, Coni Fitzgerald Attending Provider Allergies Allergy ClassificationReported Allergen(s)Allergy TypeDate of OnsetReaction(s) Facility (14 sources)predniSONE; Translations: [predniSONE]Drug Tiezvcz98-09-3092Nouil, [facility] (2 sources)predniSONEDrug Yllfqcz92-50-9709Zhl [facility] (19 sources)prednisoLONEDrug Mugmrti67-68-0969DptrxCE[facility] (19 sources)PrednisoneAllergy to mgmwywvde94-67-5237LhhdyNRIG [facility] (1 source)predniSONEDrug Yasefhd04-89-0796PnxzbfmsmThe [facility] Medications Current Medications MedicationDrug Class(es)DatesSig (Normalized)Sig (Original)acetaminophen 325 mg / oxyCODONE hydrochloride 5 mg oral tablet (20 sources)Opioid AgonistStart: 01-24-2021 End: 13-45-0613qwgl 1 tablet by mouth twice daily as needed for painOxycodone- Acetaminophen 5-325 mg tablet Active 1 TAB PO Twice daily as needed for Pain March 23, 2023 1:00am Complies with drug therapytake 1 tablet by mouth once oxyCODONE-acetaminophen (Percocet) 5-325 MG tablet Take 1 tablet by mouth every 12 (twelve) hours if needed for severe pain Activetake 1 tablet by mouth every twelve hours as needed for painPercocet 5-325 MG Oral Tablet TAKE 1 TABLET EVERY 12 HOURS NEEDED FOR PAIN. Quantity: 0 Refills:0 Ordered: 13-May-2021 DO Activeaspirin 81 mg oral tablet (20 sources)Platelet Aggregation Inhibitor, Nonsteroidal Anti-inflammatory Drug Start: 03-99-9159tbpq 1 tablet by mouth once dailyAspirin 81 mg tablet Active 81 MG PO Daily January 09, 2025 12:00am Complies with drug therapytake 1 tablet by mouth in the morningaspirin 81 MG EC tablet Take 1 tablet by mouth in the morning. Activeatorvastatin 40 mg oral tablet (20 sources)HMG-CoA Reductase InhibitorStart: 98-35-8249sdoe 1 tablet by mouth in the morningatorvastatin (Lipitor) 40 MG tablet Indications: Mixed hyperlipidemia Take 1 tablet (40 mg) by mouth in the morning. 90 tablet 1 11/02/2024 ActiveStart: 03-23-2023 End: 61-35-8105iujs 1 tablet by mouth once dailyAtorvastatin 40 mg tablet Active 40 MG PO Daily March 23, 2023 1:00am Complies with drug therapyBlood Glucose Monitoring Suppl (ONE TOUCH ULTRA 2) w/Device kit (5 sources)Start: 11-02-2024 End: 26-69-8227Tpivd Glucose Monitoring Suppl (ONE TOUCH ULTRA 2) w/Device kit Indications: Type 2 diabetes mellitus with stage 3a chronic kidney disease, with long-term current use of insulin (HCC) 1 kit Daily 1 kit 11/02/2024 11/02/2025 Active End: 11-13-9136Wfucw Glucose Monitoring Suppl (ONE TOUCH ULTRA 2) w/Device kit 1 each in the morning and 1 each inthe evening. Take before meals. 11/02/2024 Discontinued (Reorder)bumetanide 0.5 mg oral tablet (20 sources)Loop DiureticStart: 01-24-2021 End: 29-86-6846jdad 1 tablet by mouth once dailyBumetanide 0.5 mg tablet Active 0.5 MG PO Daily March 23, 2023 1:00am Complies with drug therapytake 1 tablet by mouth every twenty-four hoursBumetanide 0.5 MG 1 TAB BY MOUTH Orally every 24 hrs Activedapagliflozin 5 mg oral tablet (1 source)Sodium-Glucose Cotransporter 2 InhibitorStart: 10-73-2787qifi 1 tablet by mouth once dailyDapagliflozin Propanediol (Farxiga) 5 mg tablet Active 5 MG PO Daily February 08, 2025 12:00am Complies with drug therapyergocalciferol 1.25 mg oral capsule (2 sources)Provitamin D2 CompoundStart: 22-97-8976fonl 1 capsule by mouth every weekErgocalciferol (Vitamin D2) 1,250 mcg (50,000 unit) capsule Active 1250 MCG PO every week November 03, 2024 12:00am Complies with drug therapy Dsgceyorgid-Ixyqzweyw-Epynuk (Trelegy Ellipta) 200-62.5-25 MCG/ACT aerosol powder (19 sources)Start: 11-02-2024 End: 64-77-0967hilu 1 puff(s) by mouth once puoicQitbnpjkbck-Hwcomslki-Ktwcwc (Trelegy Ellipta) 200-62.5-25 MCG/ACT aerosol powder Indications: Pulmonary emphysema, unspecified emphysema type (HCC) Inhale 1 puff Daily Rinse mouth after use 180 each1 11/02/2024 01/31/2025 ActiveStart: 12-14-2023 End: 58-27-5800gwbg 1 puff(s) by inhalation once daily Pccauvvugju-Vcrmrxslc-Wtrsoj (Trelegy Ellipta) 200-62.5-25 MCG/ACT aerosol powder Indications: Pulmonary emphysema, unspecified emphysema type (HCC) Inhale 1 puff Daily 1 each 1 12/14/2023 11/02/2024Discontinued (Reorder)Start: 96-49-3470gttx 1 puff(s) by inhalation once igjjyLfhvndabzdz-Utlknxlrg-Nhicct (Trelegy Ellipta) 200-62.5-25 MCG/ACT aerosol powder Indications: Pulmonary emphysema, unspecified emphysema type (HCC) Inhale 1 puff Daily 1 each 1 12/14/2023 ActiveStart: 61-74-6037vais 1 puff(s) by inhalation once daily Ctbclfzcmba-Pgxhrudsf-Vrhpsl (Trelegy Ellipta) 200-62.5-25 MCG/ACT aerosol powder Indications: Pulmonary emphysema, unspecified emphysema type (CMS/HCC) Inhale 1 puff Daily 1 each 1 12/14/2023 ActiveStart: 12-14-2023 End: 38-91-4438drzu 1 puff(s) by inhalation once daily Sjxsfkajfrw-Vwstmhqxz-Jqswrg (Trelegy Ellipta) 200-62.5-25 MCG/ACT aerosol powder Indications: Pulmonary emphysema, unspecified emphysema type (CMS/HCC) Inhale 1 puff Daily 1 each 1 12/14/2023 01/13/2024 Active Xuimvldwntf-Rkqgblijv-Dmxhicpy (2 sources)Start: 90-46-2308Xsheanvijxg-Umeclidin-Vilanter (Trelegy Ellipta) 200-62.5-25 mcg blister with device Active 1 INH INHALATION Once November 03, 2024 12:00am Complies with drug therapygabapentin 300 mg oral capsule (20 sources)Anti-epileptic AgentStart: 65-17-0238wosj 3 capsules by mouth four times dailyGabapentin 300 mg capsule Active 900 MG PO Four times daily November 03, 2024 12:00am Complies with drug therapyStart: 66-23-1725mysnpdvrak (Neurontin) 300 MG capsule Take 300 mg by mouth in the morning and 300 mg at noon and 300 mg in the evening and 300 mg before bedtime. 10/19/2024 ActiveStart: 03-23-2023 End: 97-39-2568ceio 1 tablet by mouth three times dailyGabapentin 600 mg tablet Discontinued 600 MG PO Three times daily March 23, 2023 1:00am November 03, 2024 11:19amStart: 01-24-2021 End: 98-19-3650gmgd 1 capsule by mouth three times dailyGabapentin 400 mg capsule Discontinued 400 MG PO Three times daily January 24, 2021 12:00am March 23, 2023 3:48pmglipiZIDE 10 mg oral tablet (20 sources)SulfonylureaStart: 03-23-2023 End: 29-59-7408hwwm 1 tablet by mouth twice dailyGlipizide 10 mg tablet Active 10 MG PO Twice daily March 23, 2023 1:00am Complies with drug therapyStart: 01-24-2021 End: 82-45-4262urin 1 tablet by mouth once dailyGlipizide 10 mg tablet Discontinued 10 MG PO Daily January 24, 2021 12:00am March 23, 2023 3:48pmtake 1 tablet by mouth once dailyglipiZIDE XL 10 MG Oral Tablet Extended Release 24 Hour TAKE 1 TABLET DAILY DIRECTED. Quantity: 0 Refills: 0 Ordered: 13-May-2021 DO ActiveGlucose Blood (ZighraTOUCH ULTRA BLUE TEST ) (2 sources) End: 36-77-6884Hqoajpf Blood (ZighraTOUCH ULTRA BLUE TEST ) 1 each by In Vitro route in the morning and 1 each before bedtime. 11/02/2024 Discontinued (Reorder)hydroCHLOROthiazide 25 mg oral tablet (2 sources)Thiazide Diuretictake 1 tablet by mouth every twenty-four hours hydroCHLOROthiazide 25 MG 1 tablet in the morning Orally Once a day Active hydroCHLOROthiazide 25 mg / losartan potassium 100 mg oral tablet (20 sources)Thiazide Diuretic, Angiotensin 2 Receptor BlockerStart: 05-12-2024 End: 14-98-0075mziq 1 tablet by mouth in the morninglosartan-hydroCHLOROthiazide (Hyzaar) 100-25 MG tablet Indications: Primary hypertension Take 1 tablet by mouth in the morning. 90 tablet 11/02/2024 01/31/2025 ActiveStart: 03-23-2023 End: 74-19-3617hbjn 1 tablet by mouth once dailyLosartan-Hydrochlorothiazide 100-25 mg Tablet Active 1 TAB PO Daily March 23, 2023 1:00am Complies with drug therapy3 ml insulin isophane, human 100 unt/ml pen injector (2 sources)NovoLIN N FlexPen 100 UNIT/ML as directed Subcutaneous 20 UNITS TWICE A DAY ActiveInsulin Nph And Regular Human (20 sources)InsulinStart: 33-48-9223Hxxxlvn Nph And Regular Human (Novolin 70-30 Flexpen U-100) 100 unit/mL (70-30) insulin pen Active 25 UNIT SUBCUT Twice daily February 08, 2025 10:28am Complies with drug therapyStart: 11-02-2024 End: 18-31-4471ffghva 25 [IU] by subcutaneous injection in the morninginsulin NPH-insulin regular (NovoLIN 70/30 FlexPen Relion) (70-30) 100 UNIT/ML injection Indications: Type 2 diabetes mellitus with stage 3a chronic kidney disease, with long-term current use of insulin (HCC) Inject 25 Units under the skin in the morning and 25 Units in the evening. Inject before meals. 45 mL 1 11/02/2024 01/31/2025 ActiveStart: 06-27-2024 End: 03-14-7732zkcvjbn NPH-insulin regular (NovoLIN 70/30 FlexPen Relion) (70- 30) 100 UNIT/ML injection Indications: Type 2 diabetes mellitus with stage 3a chronic kidney disease, with long-term current use of insulin (HCC) Inject 20 Units under the skin in the morning and 20 Units in the evening. Inject before meals. 7 Insulin pen, 20 subcutaneous q12. 36 mL 06/27/2024 11/02/2024 Discontinued (Reorder)Start: 11-11-2023 End: 99-38-8471uyngjnk NPH-insulin regular (NovoLIN 70/30 FlexPen Relion) (70- 30) 100 UNIT/ML injection Indications: Type 2 diabetes mellitus with stage 3a chronic kidney disease, with long-term current use of insulin (HCC) (CMS/HCC) Inject 20 Units under the skin in the morning and 20 Units in the evening. Inject before meals. 7 Insulin pen, 20 subcutaneous q12. 36 mL 11/11/2023 Active Start: 03-24-2023 End: 58-70-8776Yyizhzq Nph And Regular Human (Novolin 70-30 Flexpen U-100) 100 unit/mL (70-30) Insulin Pen Discontinued 20 UNIT SUBCUT Twice daily March 24, 2023 1:00am February 08, 2025 10:29amStart: 39-29-3038Jgsmmdx Nph And Regular Human (Novolin 70-30 Flexpen U-100) 100 unit/mL (70-30) Insulin Pen Active 20 UNIT SUBCUT Twice daily March 24, 2023 1:00am Complies with drug therapyStart: 40-81-3281Bgwztgt Nph And Regular Human (Novolin 70-30 Flexpen U- 100) 100 unit/mL (70-30) Insulin Pen Active 20 UNIT SUBCUT Twice daily March 24, 2023 1:00amStart: 99-45-4127Uxhmehn Nph And Regular Human (Novolin 70-30 Flexpen U-100) 100 unit/mL (70-30) Insulin Pen Active 20 UNIT SUBCUT Twice daily March 24, 2023 12:00amMagnesium (2 sources)Start: 73-80-9814hwfh 1 tablet by mouth once dailyMagnesium 400 MG 1 Tablet Orally Once a day for 90 days Mar, Activemagnesium oxide 400 mg oral tablet (20 sources)Start: 09-16-2023 End: 49-36-2148lpgv 1 tablet by mouth twice dailyMagnesium Oxide 400 mg (241.3 mg magnesium) tablet Active 400 MG PO Twice daily September 16, 2023 11:35am Complies with drug therapyStart: 06-24-2023 End: 50-05-6145aike 1 tablet by mouth once dailyMagnesium Oxide 400 mg (241.3 mg magnesium) tablet Discontinued 400 MG PO Daily September 16, 2023 12:00am September 16, 2023 11:35amtake 1 tablet by mouth once daily at mealtimeMagnesium Oxide 250 MG 1 tablet with food Orally Once a day Activemetoprolol tartrate 50 mg oral tablet (20 sources)beta-Adrenergic BlockerStart: 11-03-2024 End: 12-57-1879Tyywywzzzb Tartrate 50 mg tablet Active 75 MG PO Twice daily 270 November 03, 2024 11:35am Complies with drug therapyStart: 03-23-2023 End: 87-80-5476yhlx 1 tablet by mouth twice dailyMetoprolol Tartrate 50 mg tablet Discontinued 50 MG PO Twice daily March 23, 2023 1:00am November 03, 2024 11:35amStart: 01-24-2021 End: 76-10-7807jdbp 1 tablet by mouth three times dailyMetoprolol Tartrate 50 mg tablet Discontinued 50 MG PO Three times daily January 24, 2021 12:00am March 23, 2023 3:48pmtake 2 tablets by mouth once dailyMetoprolol Tartrate 50 MG Oral Tablet TAKE 2 TABLETS DAILY. Quantity: 0 Refills: 0 Ordered: DO Activetake 1 tablet by mouth once dailyMetoprolol Tartrate 50 MG Oral Tablet TAKE 1 TABLET EVERY 12 HOURS DAILY. Quantity: 0 Refills: 0 Ordered: 13-May-2021 DO ActiveNaloxone 4 mg/actuation spray,non-aerosol (2 sources)Start: 19-19-8413Qkzackwr 4 mg/actuation spray,non-aerosol Active INTRANASAL March 22, 2024 1:00amStart: 68-70-9677Hxtkiexq 4 mg/actuation spray,non-aerosol Active INTRANASAL March 22, 2024 12:00amnitroglycerin 0.4 mg sublingual tablet (9 sources)Nitrate VasodilatorStart: 44-09-4106Bludithnblgcp 0.4 mg tablet, sublingual Active MG SUBLINGUAL As Directed September 16, 2023 12:00am FreeTextSig: as directed Sublingual; Note: Source Status: Not-TakingundefinedPRN; Provider: Sharmaine Holm ( ) Complies with drug therapyNitroglycerin 0.4 MG as directed Sublingual Not-Taking/PRNNitroglycerin 0.[address] 1 TABLET UNDER THE TONGUE EVERY 5 MINUTES FOR UP TO 3 DOSES NEEDED FOR CHEST PAIN.CALL 911 IF PAIN PERSISTS. Quantity: 1 Refills: 0 Ordered: 08-Dec-2022 DO Activenystatin 100 unt/mg topical powder (8 sources)Polyene AntifungalStart: 77-73-0140SQZrpoyuzq hydrochloride 30 mg oral tablet (20 sources)Serotonin Reuptake InhibitorStart: 76-20-3150gbug 1 tablet by mouth once dailyParoxetine Hcl 30 mg tablet Active 30 MG PO Daily February 08, 2025 12:00am Complies with drug therapyStart: 03-23-2023 End: 43-11-1904dodd 1 tablet by mouth once dailyParoxetine Hcl 20 mg tablet Discontinued 20 MG PO Daily March 23, 2023 1:00am February 08, 2025 10:24am Start: 01-24-2021 End: 50-19-9772ejcm 1 tablet by mouth once dailyParoxetine Hcl 10 mg tablet Discontinued 10 MG PO Daily January 24, 2021 12:00am March 3:48pmpramipexole dihydrochloride 0.5 mg oral tablet (20 sources)Nonergot Dopamine AgonistStart: 23-57-8884bznx 0.25 mg by mouth once dailyPramipexole 0.5 mg tablet Active 0.25 MG PO Daily March 22, 2024 12:24pm Complies with drug therapyStart: 10-19-2023 End: 28-94-0012znwc 1 tablet by mouth at bedtimepramipexole (Mirapex) 0.25 MG tablet Indications: RLS (restless legs syndrome) Take 1 tablet (0.25 mg) by mouth at bedtime 90 tablet 11/02/2024 01/31/2025 ActiveStart: 03-23-2023 End: 75-01-4824vpbs 1 tablet by mouth once dailyPramipexole 0.5 mg tablet Discontinued 0.5 MG PO Daily March 23, 2023 1:00am March 22, 2024 12:27pmrOPINIRole 0.5 mg oral tablet (2 sources)Nonergot Dopamine Agonisttake 1 tablet by mouth once daily at bedtime rOPINIRole HCl 0.5 MG 1 tablet 1 to 3 hours before bedtime Orally Once a day ActivetraZODone hydrochloride 100 mg oral tablet (20 sources)Serotonin Reuptake InhibitorStart: 03-97-8409baab 2 tablets by mouth once daily at bedtimeTrazodone 100 mg tablet Active 200 MG PO Daily at bedtime 180 February 08, 2025 12:00am Complies with drug therapyStart: 10-31-2024 End: 06-68-8549fqpUJQnxu (Desyrel) 100 MG tablet Indications: Psychophysiological insomnia TAKE 1 AND 1/2 TABLETS(150 MG) BY MOUTH AT BEDTIME 135 tablet 10/31/2024 11/02/2024 Discontinued (Reorder)Start: 09-24-2023 End: 65-79-0651qhfw 1.5 tablets by mouth at bedtimetraZODone (Desyrel) 100 MG tablet Indications: Psychophysiological insomnia Take 1.5 tablets (150 mg) by mouth at bedtime 135 tablet 11/02/2024 01/31/2025 ActiveStart: 09-16-2023 End: 21-74-1970Czccfqwio 100 mg tablet Discontinued 150 MG PO Daily at bedtime September 16, 2023 10:59am February 10:26amStart: 03-23-2023 End: 63-33-8209wotg 1 tablet by mouth once daily at bedtimeTrazodone 100 mg tablet Discontinued 100 MG PO Daily at bedtime March 23, 2023 1:00am September 16, 2023 11:00amStart: 01-24-2021 End: 82-54-4274Mdvkenzge 100 mg tablet Discontinued 150 MG PO Bedtime January 24, 2021 12:00am March 23, 2023 3:48pmStart: 01-24-2021 End: 41-85-9062hzdn 150 mg by mouth at bedtimeTrazodone Discontinued 150 MG PO Bedtime January 24, 2021 12:00am March 23, 2023 3:48pmtake 1 tablet by mouth at bedtimetraZODone HCl - 150 MG Oral Tablet TAKE 1 TABLET AT BEDTIME. Quantity: 0 Refills: 0 Ordered: 13-May-2021 DO ActiveVitamin D (Cholecalciferol) 10 MCG (400 UNIT) (2 sources)take 1 tablet by mouth once dailyVitamin D (Cholecalciferol) 10 MCG (400 UNIT) 1 tablet Orally Once a day Active Completed/Discontinued Medications MedicationDrug Class(es)DatesSig (Normalized)Sig (Original)allopurinol 100 mg oral tablet (20 sources)Xanthine Oxidase InhibitorStart: 11-02-2024 End: 65-02-1742obln 2 tablets by mouth once dailyallopurinol (Zyloprim) 100 MG tablet Indications: Chronic gout of multiple sites, unspecified causeTake 2 tablets (200 mg) by mouth Daily 180 tablet 11/02/2024 01/31/2025 ActiveStart: 10-05-2024 End: 99-28-4242wepz 1 tablet by mouth once dailyAllopurinol 100 mg tablet Discontinued 0 .ROUTE .COMPLEX 90 October 05, 2024 9:08am November 03, 2024 11:22am TAKE 1 TABLET BY MOUTH DAILYStart: 09-16-2023 End: 05-65-7176wqef 1 tablet by mouth onceAllopurinol 100 mg tablet Discontinued 100 MG PO Once November 03, 2024 11:19am November 03, 2024 11:34amStart: 01-24-2021 End: 06-05-8052blce 1 tablet by mouth once dailyAllopurinol 300 mg tablet Discontinued 300 MG PO Daily January 24, 2021 12:00am March 23, 2023 3:48pmamLODIPine 2.5 mg oral tablet (10 sources)Dihydropyridine Calcium Channel BlockerStart: 01-24-2021 End: 06-71-2870lrxw 1 tablet by mouth once dailyAmlodipine 2.5 mg tablet Discontinued 2.5 MG PO Daily January 24, 2021 12:00am March 23, 2023 3:48pmcelecoxib 50 mg oral capsule (6 sources)Nonsteroidal Anti-inflammatory Drugtake 1 capsule by mouth twice dailyCelecoxib 50 MG Oral Capsule TAKE 1 CAPSULE TWICE DAILY. Quantity: 0 Refills: 0 Ordered: 13-May-2021 DO Activecephalexin 500 mg oral capsule (8 sources)Cephalosporin AntibacterialStart: 03-24-2023 End: 15-15-9563nmby 1 capsule by mouth three times dailyCephalexin 500 mg Capsule Discontinued 500 MG PO Three times daily 15 5 March 24, 2023 1:00am June 24, 2023 11:13amdoxycycline hyclate 100 mg oral tablet (8 sources)Tetracycline-class DrugStart: 06-24-2023 End: 82-55-7969kngr 2 tablets by mouth once dailyDoxycycline Hyclate 100 mg tablet Discontinued 100 MG PO Twice daily June 24, 2023 1:00am March 22, 2024 12:26pm take 2 tablets daily for 14 dayshydroCHLOROthiazide 12.5 mg / lisinopril 10 mg oral tablet (4 sources)Thiazide Diuretic, Angiotensin Converting Enzyme InhibitorStart: 82-94-7868jxlr 1 tablet by mouth once dailyLisinopril-hydroCHLOROthiazide 10- 12.5 MG Oral Tablet TAKE 1 TABLET DAILY. Quantity: 90 Refills: 1 Ordered: 30-Jun-2022 Shashi Madison MD Start : 01-Jul-2021 Activeinsulin aspart, human 100 unt/ml injectable solution (2 sources)Insulin AnalogNovoLOG 100 UNIT/ML Injection Solution as directed Quantity: 0 Refills: 0 Ordered: 08-Dec-2022 DO Activeinsulin detemir 100 unt/ml injectable solution (2 sources)Insulin AnalogLevemir 100 UNIT/ML Subcutaneous Solution as directed Quantity: 0 Refills: 0 Ordered: 08-Dec-2022 DOActivelisinopril 2.5 mg oral tablet (12 sources)Angiotensin Converting Enzyme InhibitorStart: 01-24-2021 End: 92-58-6432capu 1 tablet by mouth once dailyLisinopril 2.5 mg tablet Discontinued 2.5 MG PO Daily January 24, 2021 12:00am March 23, 2023 3:48pmlovastatin 40 mg oral tablet (18 sources)HMG-CoA Reductase InhibitorStart: 01-24-2021 End: 51-95-6604tirv 1 tablet by mouth once dailyLovastatin 40 mg tablet Discontinued 40 MG PO Daily January 24, 2021 12:00am March 23, 2023 3:48pmmetFORMIN hydrochloride 500 mg oral tablet (18 sources)BiguanideStart: 01-24-2021 End: 85-31-8218gcay 1 tablet by mouth twice dailyMetformin 500 mg tablet Discontinued 500 MG PO Twice daily January 24, 2021 12:00am March 23, 2023 3:48pmmetFORMIN HCl 1000 MG 1 /2 tablet with a meal Orally TWICE A DAY Activenaloxone hydrochloride 40 mg/ml nasal spray (6 sources)Opioid AntagonistStart: 03-22-2024 End: 72-69-9861Vprtmdfb 4 mg/actuation spray,non-aerosol Discontinued INTRANASAL March 22, 2024 1:00am November 03, 2024 11:20amStart: 54-92-0200svxbybtp (Narcan) 4 mg/0.1 mL nasal spray Administer 4 mg into affected nostril(s) if needed 03/10/2024 ActiveOzempic (0.25 or 0.5 MG/DOSE) SOPN (2 sources)Ozempic (0.25 or 0.5 MG/DOSE) SOPN as directed Quantity: 0 Refills: 0 Ordered: 08-Dec-2022 DO ActivetiZANidine 4 mg oral tablet (18 sources)Central alpha-2 Adrenergic AgonistStart: 01-24-2021 End: 53-54-8178ndqv 1 tablet by mouth twice dailyTizanidine 4 mg tablet Discontinued 4 MG PO Twice daily January 24, 2021 12:00am March 3:48pmZanaflex CAPS TAKE 1 CAPSULE TWICE DAILY NEEDED. Quantity: 0 Refills: 0 Ordered: 13-May-2021 DO Active Problems Active Problems Problem ClassificationProblemDateDocumented DateEpisodic/ChronicAbdominal pain (4 sources)Abdominal pain; Translations: [Unspecified abdominal pain]Episodic Chronic kidney disease (20 sources)Chronic kidney disease stage 3; Translations: [Chronic kidney disease, stage 3 (moderate)]Onset: 307536-60-2757LrumnbmEaoaqet kidney disease (2 sources)Chronic kidney disease; Translations: [Chronic kidney disease, stage 3 unspecified]Onset: 76-34-1774Ggefyuo obstructive pulmonary disease and bronchiectasis (20 sources)Chronic obstructive pulmonary disease, unspecified; Translations: [Pulmonary emphysema]Onset: 655122-58-2909TqqytimAzipnryjly heart failure; nonhypertensive (20 sources)Chronic diastolic heart failure; Translations: [Chronic diastolic (congestive) heart failure]Onset: 555417-16-2947IcovyzpXwfltrgj mellitus with complications (20 sources)Disorder of kidney due to diabetes mellitus; Translations: [Type 2 diabetes mellitus with diabetic chronic kidney disease]Onset: 35-26-7660Ckyogtu Diabetes mellitus without complication (5 sources)Diabetes mellitus; Translations: [Diabetes mellitus without mention of complication, type II or unspecified type, not stated as uncontrolled]Onset: 86-45-3503ZbktexjCciumzea of white blood cells (20 sources)Elevated white blood cell count, unspecified; Translations: [Leukocytosis]Onset: 24-71-5475UoegeadRxtmyfgyr of lipid metabolism (20 sources)Hyperlipidemia, unspecified; Translations: [Mixed hyperlipidemia] Onset: 34-82-6891XitrromXrreafqqe hypertension (20 sources)Hypertensive disorder; Translations: [Unspecified essential hypertension]Onset: 510067-03-3123MkkkcntEzot and other crystal arthropathies (12 sources)Gouty arthritis of multiple sites; Translations: [Idiopathic chronic gout, multiple sites, without tophus (tophi)]Onset: 099622-25-0681Mmhohdt Hypertension with complications and secondary hypertension (14 sources)Malignant hypertensive chronic kidney disease; Translations: [Hypertensive chronic kidney disease with stage 1 through stage 4 chronic kidney disease, or unspecified chronic kidney disease]Onset: 09-39-9157Wrckdip Immunizations and screening for infectious disease (20 sources)Patient encounter status; Translations: [Other specified vaccination]Onset: 401348-34-6236FphajditZjwdwjallewii mental health disorders (20 sources)Psychophysiologic insomnia; Translations: [Psychophysiologic insomnia]Onset: 515576-84-3526OphpiifHtbt disorders (20 sources)Major depression in full remission; Translations: [Major depressive disorder, single episode, in full remission]Onset: hronic Mycoses (15 sources)Mycosis; Translations: [Candidiasis, unspecified]20-59-8256Lkhchazv Nonmalignant breast conditions (14 sources)Other specified disorders of breast; Translations: [Breast lump] Onset: 708679-56-3500SvgvsfhdExcuq aftercare (6 sources)Long-term current use of insulin; Translations: [manager intermediate (current) use of insulin]Onset: 813008-37-7225SxwsjpqoIfhwi and ill-defined heart disease (12 sources)Cardiomegaly; Translations: [Cardiomegaly]ChronicOther and ill- defined heart disease (1 source)CardiomegalyOnset: 04-09-2021 Resolved: 93-27-9957GrshkvjFxbqe connective tissue disease (20 sources)Disorder of back; Translations: [Disorder of ligament, vertebrae] Onset: 672297-40-0859IeogszsoRnual connective tissue disease (20 sources)H/O: osteoarthritis; Translations: [Personal history of other diseases of the musculoskeletal system and connective tissue]Onset: 04-08-2023 57-53-0175SywhdncxNavhl connective tissue disease (20 sources)Spasm; Translations: [Other muscle spasm]Onset: EpisodicOther diseases of kidney and ureters (10 sources)Secondary hyperparathyroidism; Translations: [Secondary hyperparathyroidism of renal origin]69-22-3669ScvpashJqiym diseases of kidney and ureters (3 sources)Secondary hyperparathyroidism of renal origin; Translations: [Secondary hyperparathyroidism (of renal origin)]Onset: 33-46-4508FmhdnuoIogwo diseases of kidney and ureters (8 sources)Hyperparathyroidism due to renal insufficiency; Translations: [Secondary hyperparathyroidism of renal origin]Onset: ChronicOther gastrointestinal disorders (4 sources)Constipation; Translations: [Constipation, unspecified]EpisodicOther hereditary and degenerative nervous system conditions (1 source)Restless legs syndrome; Translations: [RESTLESS LEGS SYNDROME]Onset: 68-00-1700OhvpsysWvbfb hereditary and degenerative nervous system conditions (20 sources)Restless legs; Translations: [Restless legs syndrome]Onset: 584918-66-8562DilflikFgsje liver diseases (10 sources)Liver cyst; Translations: [Other specified diseases of liver] 41-35-6496KtaxntmCqsdn liver diseases (3 sources)Other specified diseases of liver; Translations: [Other specified disorders of liver]Onset: 31-91-4840GdzjvzdOhxqg lower respiratory disease (8 sources)Dyspnea; Translations: [Other respiratory abnormalities]EpisodicOther nervous system disorders (1 source)Other chronic pain; Translations: [OTHER CHRONIC PAIN]Onset: 18-33-8781CqucmdxOixfs nervous system disorders (11 sources)Chronic low back pain; Translations: [Other chronic pain]Onset: 895902-69-6724GoyvafnKcvvr nutritional; endocrine; and metabolic disorders (8 sources)Obesity; Translations: [Obesity, unspecified]ChronicOther nutritional; endocrine; and metabolic disorders (4 sources)Obese class I; Translations: [Body mass index (BMI) 33.0-33.9, adult] ChronicOther nutritional; endocrine; and metabolic disorders (15 sources)Hypomagnesemia; Translations: [Hypomagnesemia]Onset: 11-02-2024 20-49-6483VtvghpkIwcfj nutritional; endocrine; and metabolic disorders (4 sources)Hypermagnesemia; Translations: [Hypermagnesemia]ChronicOther nutritional; endocrine; and metabolic disorders (3 sources)Hypomagnesemia; Translations: [Disorders of magnesium metabolism] Onset: 94-30-6708OodftweSlcok nutritional; endocrine; and metabolic disorders (2 sources)Morbid obesity; Translations: [Morbid (severe) obesity due to excess calories]99-37-2579QtjuqqzTxhnw nutritional; endocrine; and metabolic disorders (3 sources)Hyperuricemia without signs of inflammatory arthritis and tophaceous disease; Translations: [Other abnormal blood chemistry]Onset: 78-20-0849Uwprakmx Other nutritional; endocrine; and metabolic disorders (6 sources)Hyperuricemia; Translations: [Hyperuricemia without signs of inflammatory arthritis and tophaceous disease]96-35-3902XnnaaugqAwfo and subcutaneous tissue infections (20 sources)Furuncle; Translations: [Furuncle, unspecified]Onset: 07-03-2023 82-21-9417AhfxbsdbJdlxelmikwq; intervertebral disc disorders; other back problems (20 sources)Prolapsed cervical intervertebral disc; Translations: [Other cervical disc displacement, unspecified cervical region]Onset: 05-24-2021 Resolved: 48-75-2122WqooqwmPnogohwarcp; intervertebral disc disorders; other back problems (20 sources)Cervical disc disorder at C5-C6 level with radiculopathy; Translations: [Cervical disc disorder at C6-C7 level with radiculopathy]Onset: 04-09-2021 Resolved: 35-79-9276CmgoiljbOmvwzvgyw-related disorders (20 sources)Smoker; Translations: [Tobacco use disorder]Onset: 12-04-2021 Resolved: 944684-04-7890JsvhqwaFxhqpqv on above:1/2 pack daily.; Unclassified (4 sources)LOW BACK PAIN, UNSPECIFIED; Translations: [LOW BACK PAIN, UNSPECIFIED]Onset: 07-74-1104Cilrilaljbym (1 source)CHRN KIDNEY DISEASE STG 3 UNSP; Translations: [CHRN KIDNEY DISEASE STG 3 UNSP]Onset: 52-25-1644Aeybutxqttcp (1 source)CONTACT W/AND (SUSP) EXPOS COVID-19; Translations: [CONTACT W/AND (SUSP) EXPOS COVID-19]Onset: 12-04-2021 Past or Other Problems Problem ClassificationProblemDateDocumented DateEpisodic/ChronicMood disorders (3 sources)Mood disordersOnset: 906970-65-3683Kcusqteplip chest pain (4 sources)Chest pain, unspecified; Translations: [CHEST PAIN UNSPECIFIED]Onset: 95-26-3240XlwxtsdwCyctz aftercare (1 source)Other long-term (current) drug therapy; Translations: [OTH DETENTION CURRENT DRUG THERAPY]Onset: 89-46-9612JfhnntqnWbjnb lower respiratory disease (1 source)Shortness of breath; Translations: [SHORTNESS OF BREATH]Onset: 43-79-8574TgygzprbByrhg skin disorders (2 sources)Dystrophia unguium; Translations: [Nail dystrophy]70-29-6374Grxcrxdo Residual codes; unclassified (1 source)Procedure and treatment not carried out for other reasons; Translations: [PROC AND TX NOT CARRIED OUT OTH REASONS]Onset: 04-49-6031Yollgohf Unclassified (1 source)LOW BACK PAIN, UNSPECIFIED; Translations: [LOW BACK PAIN, UNSPECIFIED] Onset: 07-17-2022 Results Test NameValueInterpretationReference RangeFacilityCT LUNG SCREENING LOW DOSEon 32-01-9352[address] [address] [address] Scan Report Signed Patient: VIDHYA IBARRA MR#: [id number] : 1955 Acct:[id number] Age/Sex: 69 / F ADM Date: 11/23/24 Loc: CT Attending Dr: Coni Osorio NP Ordering Physician: Coni Osorio NP Date of Service: 11/23/24 Procedure(s): CT lung screening low-dose Accession Number(s): [id number] cc: Coni Osorio NP [address] [address] Patient Name: VIDHYA IBARRA MRN: [facility]:[id number] date: 1955 Sex: F Assigned Patient Location: CT Current Patient Location: CT Accession/Order Number: [id number] Exam Date: 11/23/2024 10:02 Report Date: 11/23/2024 [...] Jr., D.O. 11/23/2024 10:09 AM Dictation Location: [place] [address] Electronically authenticated by: [id number] Y Date: 11/23/2024 10:09 Dictated By: Stevan Daniels M.D. Signed By: 11/23/24 1012 DD/ 1009 TD/TT: Urologist Physician:TBHRadiology, Radiologist, MD - 11/23/[address] [address] [address] Scan Report Signed Patient: VIDHYA IBARRA MR#: [id number] : 1955 Acct:[id number] Age/Sex: 69 / F ADM Date: 11/23/24 Loc: CT Attending Dr: Coni Osorio NP Ordering Physician: Coni Osorio NP Date of Service: 11/23/24 Procedure(s): CT lung screening low-dose Accession Number(s): [id number] cc: Coni Osorio NP [address] [address] Patient Name: VIDHYA IBARRA MRN: [facility]:[id number] date: 1955 Sex: F Assigned Patient Location: CT Current Patient Location: CT Accession/Order Number: [id number] Exam Date: 11/23/2024 10:02 Report Date: 11/23/2024 [...] Jr., D.O. 11/23/2024 10:09 AM Dictation Location: [place] [address] Electronically authenticated by: [id number] Y Date: 11/23/2024 10:09 Dictated By: Stevan Daniels M.D. Signed By: 11/23/24 1012 DD/ 1009 TD/TT: Urologist Physician: [facility] HospitalRadiology Study observation (narrative)[facility] HospitalCT LUNG SCREENING LOW DOSEOrdered By: Radiologist Radiology on 99-24-3765RZPVEllett Memorial Hospital Work Phone: all CBC WITH AUTO DIFFon 09-68-6872FSIHEZHTG ABSOLUTE AUTO0.2HighNOVA HealthcareBasophils/100 WBC (Bld)1.3 %0.2 - 2.0 %[facility] Eosinophils/100 WBC (Bld)2 %0.9 - 7.0 %[facility] HospitalErythrocyte distribution width (RBC) [Ratio]14.3 %11.0 - 15.0 %[facility] HospitalHematocrit (Bld) [Volume fraction]49.2 %High36.0 - 48.0 %[facility] HospitalHemoglobin (Bld) [Mass/Vol]17 g/jTQlra39.0 - 16.0 g/dLEllett Memorial HospitalIMMATURE GRANULOCYTES ABS AUTO0.1HighEllett Memorial HospitalImmature granulocytes/100 WBC (Bld)0.9 %High0.0 - 0.5 %[facility] HospitalInterpretation and review of laboratory resultsAbnormalEllett Memorial Hospital LYMPHOCYTES ABSOLUTE AUTO2.4NOI-70 Community HospitalLymphocytes/100 WBC (Bld)20.6 %20.5 - 60.0 %[facility] HospitalH (RBC) [Entitic mass]30.4 pg26.7 - 34.0 pgSt. Louis Children's HospitalHC (RBC) [Mass/Vol]34.6 g/dL29.9 - 35.2 g/dLSt. Louis Children's HospitalV (RBC) [Entitic vol]88 fL81.0 - 99.0 fLEllett Memorial HospitalMONOCYTES ABSOLUTE AUTO0.7NOMS HealthcareMonocytes/100 WBC (Bld)5.7 %1.7 - 12.0 %[facility] HospitalNEUTROPHILS ABSOLUTE DUSM4VynxDYMN HealthcareNeutrophils/100 WBC (Bld)69.5 %43.0 - 75.0 % [facility] HospitalPlatelet mean volume (Bld) [Entitic vol]10.9 fL9.5 - 13.5 fLEllett Memorial HospitalTB EO #0.2NOMS HealthcareTBH BYA810PGPF HealthcareTB RBC5.59HighEllett Memorial HospitalTB WBC11.5HighEllett Memorial HospitalCLINISYNCNOMS HealthcareAlbumin [Mass/volume] in Serum or Plasma by Bromocresol green (BCG) dye binding metho Ordered By: Alta Schmid on 05-61-3429Vkgnmhs BCG dye [Mass/Vol]Albumin [Mass/volume] in Serum or Plasma by Bromocresol green (BCG) dye binding metho 3.5-5.7FMarietta Memorial HospitalAlbumin BCG dye [Mass/Vol]4.0 g/dL 3.5-5.7FMarietta Memorial HospitalAppearance of UrineOrdered By: Alta Schmid on 83-83-2501Rmzvlrhrhp (U)Urine appearanceClearFMarietta Memorial HospitalBacteria [Presence] in Urine by AutomatedOrdered By: Alta Schmid on 08-86-1475Flmekckk Auto Ql (U)Bacteria [Presence] in Urine by AutomatedNone Seen [facility] HospitalBacteria Auto Ql (U)None seen [HPF]None Seen [facility] HospitalBilirubin Test strip Ql (U)Ordered By: Alta Schmid on 54-49-9725Luhwsezvl Ql (U)Bilirubin.total [Presence] in Urine by Test stripNegativeThe Bellevue HospitalBilirubin Ql (U)NegativeNegative [facility] HospitalCalcium [Mass/volume] in Serum or PlasmaOrdered By: Alta Schmid on 50-86-1021Fklmrne [Mass/Vol]Calcium [Mass/volume] in Serum or Plasma8.6-10.3FMarietta Memorial HospitalCarbon dioxide, total [Moles/volume] in Serum or PlasmaOrdered By: Alta Schmid on 04-64-7736BR4 [Moles/Vol]Carbon dioxide, total [Moles/volume] in Serum or Izeyvw02.0-31.0 [facility] HospitalChloride [Moles/volume] in Serum or Plasma Ordered By: Alta Schmid on 11-42-1904Srkeoxqu [Moles/Vol]Chloride [Moles/volume] in Serum or Hzcptr35-968GsoancorwThe Bellevue HospitalColor Auto (U)Ordered By: Alta Schmid on 85-93-7797Pfqsh (U)Color of Urine by AutoYelMercy Health Kings Mills HospitalCreatinine [Mass/volume] in Serum or PlasmaOrdered By: Alta Schmid on 39-60-9390Dohwhsxyxi [Mass/Vol]Creatinine [Mass/volume] in Serum or PlasmaHigh0.60-1.20The [facility] HospitalCreatinine [Mass/volume] in UrineOrdered By: Alta Schmid on 35-75-0050Wsyokmzqef (U) [Mass/Vol]Creatinine [Mass/volume] in UrineThe Bellevue HospitalComment on above:No reference range establishedCreatinine (U) [Mass/Vol]66.00 mg/dLThe [facility]vue HospitalComment on above:No reference range establishedDipstick and MicroscopicOrdered By: Alta Schmid on 38-18-0607Ctvwirtbct (U)ClearClear The [facility] HospitalComment on above:Order Comment: Name Collection Type:: Clean-Voided MidstreamPerformed By: #### [id number], URIC, ADDONUAPLUS, CBCNO, PROCRERAT, RENAL, MG, PTH #### [facility] [address] [place] [address] USAColor (U)Light-YellowKettering Health Main CampusComment on above:Order Comment: Name Collection Type:: Clean-Voided MidstreamPerformed By: #### [id number], URIC, ADDONUAPLUS, CBCNO, PROCRERAT, RENAL, MG, PTH #### [facility] [address] [place] [address] USAKetones Ql (U)NegativeNegativeThe [facility]vue HospitalComment on above:Order Comment: Name Collection Type:: Clean-Voided MidstreamPerformed By: #### [id number], URIC, ADDONUAPLUS, CBCNO, PROCRERAT, RENAL, MG, PTH #### [facility] [address] [place] [address] USALeukocyte esterase Test strip Ql (U)NegativeNegCorey HospitalComment on above:Order Comment: Name Collection Type:: Clean-Voided MidstreamPerformed By: #### [id number], URIC, ADDONUAPLUS, CBCNO, PROCRERAT, RENAL, MG, PTH #### [facility] [address] [place] [address] USApH (U)5.5 [pH]5.0-9.0[facility] Comment on above:Order Comment: Name Collection Type:: Clean-Voided Midstream Performed By: #### [id number], URIC, ADDONUAPLUS, CBCNO, PROCRERAT, RENAL, MG, PTH #### [place] [address] USAProtein (U) [Mass/Vol]50 mg/dLHighNegativeThe [facility] HospitalComment on above:Order Comment: Name Collection Type:: Clean-Voided MidstreamPerformed By: #### [id number], URIC, ADDONUAPLUS, CBCNO, PROCRERAT, RENAL, MG, PTH #### [place] [address] USADipstick and Microscopicon 45-22-5279Mdyjlslo,UrineNone SeenNormalNone SeenBaptist Health Hospital Doral Physician GroupComment on above:Order Comment: Name Collection Type:: Clean-Voided MidstreamPerformed By: #### [id number], URIC, ADDONUAPLUS, CBCNO, PROCRERAT, RENAL, MG, PTH #### [place] [address] USABilirubin,UrineNegativeNormalNegativeBaptist Health Hospital Doral Physician GroupComment on above:Order Comment: Name Collection Type:: Clean- Voided MidstreamPerformed By: #### [id number], URIC, ADDONUAPLUS, CBCNO, PROCRERAT, RENAL, MG, PTH #### [place] [address] USAGlucose Ql (U)NormalNormalNormUF Health Leesburg Hospital Physician GroupComment on above:Order Comment: Name Collection Type:: Clean-Voided MidstreamPerformed By: #### [id number], URIC, ADDONUAPLUS, CBCNO, PROCRERAT, RENAL, MG, PTH #### [place] [address] USAHyaline Casts,UrineNoneNormal0-8The [facility] Physician GroupComment on above:Order Comment: Name Collection Type:: Clean-Voided MidstreamResult Comment: PERFORMED BY: [place] [address] PATHOLOGIST CALL CENTER ANALYST CLAU SOTO M.D.Performed By: #### [id number], URIC, ADDONUAPLUS, CBCNO, PROCRERAT, RENAL, MG, PTH #### [place] [address] USANitrite,UrineNegativeNormalNegativeThe [facility] Physician GroupComment on above:Order Comment: Name Collection Type:: Clean-Voided MidstreamPerformed By: #### [id number], URIC, ADDONUAPLUS, CBCNO, PROCRERAT, RENAL, MG, PTH #### [place] [address] USAOccult Blood,UrineNegativeNormalNegativeThe [facility] Physician GroupComment on above:Order Comment: Name Collection Type:: Clean- Voided MidstreamPerformed By: #### [id number], URIC, ADDONUAPLUS, CBCNO, PROCRERAT, RENAL, MG, PTH #### [place] [address] USARBC,Ttcts2-8Cnqytj0-4Los [facility] Physician GroupComment on above:Order Comment: Name Collection Type:: Clean-Voided MidstreamPerformed By: #### [id number], URIC, ADDONUAPLUS, CBCNO, PROCRERAT, RENAL, MG, PTH #### [place] [address] USASpecificy [place],Urine1.682Zaomng2.001-1.030The [facility] Physician GroupComment on above:Order Comment: Name Collection Type:: Clean- Voided MidstreamPerformed By: #### [id number], URIC, ADDONUAPLUS, CBCNO, PROCRERAT, RENAL, MG, PTH #### [address] [place] [address] USASquamous Epithelial Cell,Oaver1-6Nwds7-6Aww [facility] Physician GroupComment on above:Order Comment: Name Collection Type:: Clean- Voided MidstreamPerformed By: #### [id number], URIC, ADDONUAPLUS, CBCNO, PROCRERAT, RENAL, MG, PTH #### [facility] [address] [place] [address] USAUrobilinogen,UrineNormalNormalNormalThe [facility] Physician GroupComment on above:Order Comment: Name Collection Type:: Clean- Voided MidstreamPerformed By: #### [id number], URIC, ADDONUAPLUS, CBCNO, PROCRERAT, RENAL, MG, PTH #### [facility] [address] [place] [address] USAWBC,Okfnp1-4Fvfmgy6-0Zbi [facility] Physician GroupComment on above:Order Comment: Name Collection Type:: Clean-Voided MidstreamPerformed By: #### [id number], URIC, ADDONUAPLUS, CBCNO, PROCRERAT, RENAL, MG, PTH #### [facility] [address] [place] [address] USAEpithelial cells.squamous [#/area] in Urine sediment by Automated countOrdered By: Alta Fletcherr on 13-41-9433Tbpynoiyed cells.squamous Auto (Urine sed) [#/Area]Epithelial cells.squamous [#/area] in Urine sediment by Automated countHigh02FMarietta Memorial HospitalEpithelial cells.squamous Auto (Urine sed) [#/Area]3-4 [HPF]High02FMarietta Memorial HospitalErythrocyte distribution width Auto (RBC) [Ratio]Ordered By: Alta Sharmaine on 56-04-6290Blasplijonn distribution width (RBC) [Ratio]Erythrocyte distribution width [Ratio] by Automated count11.9-15.3FMarietta Memorial HospitalErythrocytes [#/area] in Urine sediment by Automated countOrdered By: Alta Sharmaine on 10-68-9183NBD Auto (Urine sed) [#/Area]Erythrocytes [#/area] in Urine sediment by Automated count0-4FMarietta Memorial HospitalRBC Auto (Urine sed) [#/Area]1-2 [HPF]0-4FMarietta Memorial HospitalGlucose [Mass/volume] in Serum or PlasmaOrdered By: Alta Schmid on 32-88-1605Dnwwxcb [Mass/Vol]Glucose [Mass/volume] in Serum or GfosscQvyt03-815XcrlffdhiThe Bellevue HospitalComment on above:ADA recommended reference rangeRandom Glucose Reference Range is dependent on time and content of last meal. Glucose of more than 200 mg/dL in a nonstressed, ambulatory subject supports the diagnosisof Diabetes Mellitus.Glucose [Mass/volume] in Urine by Test stripOrdered By: Alta Schmid on 83-59-6458Gnbroie Test strip (U) [Mass/Vol]Glucose [Mass/volume] in Urine by Test stripNoMercy Health – The Jewish HospitalGlucose Test strip (U) [Mass/Vol]Normal mg/dLNoMercy Health – The Jewish HospitalHematocrit Auto (Bld) [Volume fraction]Ordered By: Alta Schmid on 99-46-0018Ojzbjezevl (Bld) [Volume fraction]Hematocrit [Volume Fraction] of Blood by Automated countHigh 34.0-46.4FMarietta Memorial HospitalHemoglobin Test strip Ql (U)Ordered By: Alta Schmid on 93-53-9355Okzemuybwe Ql (U)Hemoglobin [Presence] in Urine by Test stripNegativeThe Bellevue HospitalHemoglobin Ql (U)Negative NegativeThe Bellevue HospitalHemoglobin [Mass/volume] in Blood Ordered By: Alta Schmid on 34-89-7565Yhaaflfpqy (Bld) [Mass/Vol]Hemoglobin [Mass/volume] in NcmslYnut12.8-15.4FMarietta Memorial HospitalHemogram CBC Without DiffOrdered By: Alta Schmid on 09-20-8797Fnhrvfbvjpt distribution width (RBC) [Ratio]14.8 %11.9-15.3FMarietta Memorial HospitalComment on above: Performed By: #### [id number], URIC, ADDONUAPLUS, CBCNO, PROCRERAT, RENAL, MG, PTH #### [place] [address] USAHematocrit (Bld) [Volume fraction]48.2 %High34.0-46.4 The [facility] HospitalComment on above:Performed By: #### [id number], URIC, ADDONUAPLUS, CBCNO, PROCRERAT, RENAL, MG, PTH #### [place] [address] USAHemoglobin (Bld) [Mass/Vol]16.3 g/lTLlnj02.8-15.4FMarietta Memorial HospitalComment on above:Performed By: #### [id number], URIC, ADDONUAPLUS, CBCNO, PROCRERAT, RENAL, MG, PTH #### [place] [address] USAMCH (RBC) [Entitic mass]29.8 pg24.7-34.3FMarietta Memorial HospitalComment on above:Performed By: #### [id number], URIC, ADDONUAPLUS, CBCNO, PROCRERAT, RENAL, MG, PTH #### [place] [address] USAMCV (RBC) [Entitic vol]88.1 iE50-427DxgdcuwrjThe Bellevue HospitalComment on above:Performed By: #### [id number], URIC, ADDONUAPLUS, CBCNO, PROCRERAT, RENAL, MG, PTH #### [place] [address] USAPlatelet mean volume (Bld) [Entitic vol]8.9 fL6.3-10.7 The [facility] HospitalComment on above:Result Comment: PERFORMED BY: [place] [address] PATHOLOGIST CALL CENTER ANALYST CLAU SOTO M.D.Performed By: #### [id number], URIC, ADDONUAPLUS, CBCNO, PROCRERAT, RENAL, MG, PTH #### [place] [address] USAPlatelets (Bld) [#/Vol]237 10*3/zT996-444QvjcnvsejThe Bellevue HospitalComment on above:Performed By: #### [id number], URIC, ADDONUAPLUS, CBCNO, PROCRERAT, RENAL, MG, PTH #### [place] [address] USARBC (Bld) [#/Vol]5.47 10*6/uLHigh3.60-5.00The [facility] HospitalComment on above:Performed By: #### [id number], URIC, ADDONUAPLUS, CBCNO, PROCRERAT, RENAL, MG, PTH #### [place] [address] USAHemogram CBC Without Diffon 81-48-7465Scwi Corpuscular HGB Conc33.8 g/qHNswgnr48.0-35.0The [facility] Physician GroupComment on above: Performed By: #### [id number], URIC, ADDONUAPLUS, CBCNO, PROCRERAT, RENAL, MG, PTH #### [place] [address] USAWBC (Bld) [#/Vol]11.7 10*3/uLHigh3.8-11.6The [facility] Physician GroupComment on above:Performed By: #### [id number], URIC, ADDONUAPLUS, CBCNO, PROCRERAT, RENAL, MG, PTH #### [place] [address] USAHyaline casts [#/area] in Urine sediment by Automated countOrdered By: Alta Schmid on 29-92-3084Qvqxrdh casts Auto (Urine sed) [#/Area]Hyaline casts [#/area] in Urine sediment by Automated count0-8The [facility] HospitalHyaline casts Auto (Urine sed) [#/Area]None [LPF]0-8 The [facility] HospitalKetones Test strip Ql (U)Ordered By: Alta Schmid on 13-87-1487Noxoots Ql (U)Ketones [Presence] in Urine by Test strip NegativeThe Bellevue HospitalLeukocyte esterase [Presence] in Urine by Test stripOrdered By: Alta Schmid on 86-19-1193Yvaqcibtk esterase Test strip Ql (U)Leukocyte esterase [Presence] in Urine by Test stripNegativeThe Bellevue HospitalLeukocytes [#/area] in Urine sediment by Automated count Ordered By: Alta Schmid on 87-44-2538AMM Auto (Urine sed) [#/Area]Leukocytes [#/area] in Urine sediment by Automated count0-4FMarietta Memorial HospitalWBC Auto (Urine sed) [#/Area]1-2 [HPF]0-4FMarietta Memorial Hospital Leukocytes [#/volume] corrected for nucleated erythrocytes in Blood by Automated counOrdered By: Alta Schmid on 65-37-3617PBQ corrected for nucl RBC Auto (Bld) [#/Vol]Leukocytes [#/volume] corrected for nucleated erythrocytes in Blood by Automated counHigh3.8-11.6FMarietta Memorial HospitalWBC corrected for nucl RBC Auto (Bld) [#/Vol]11.7 10*3/uLHigh3.8-11.6FKindred Healthcare Auto (RBC) [Entitic mass]Ordered By: Alta Schmid on 64-65-0456VPO (RBC) [Entitic mass]MCH [Entitic mass] by Automated count24.7-34.3FPomerene HospitalHC Auto (RBC) [Mass/Vol]Ordered By: Alta Schmid on 04-56-4934DHJP (RBC) [Mass/Vol]MCHC [Mass/volume] by Automated count32.0-35.0 [facility] HospitalHC (RBC) [Mass/Vol]33.8 g/dL32.0-35.0 [facility] HospitalV Auto (RBC) [Entitic vol]Ordered By: Alta Schmid on 24-32-1095WEM (RBC) [Entitic vol]MCV [Entitic volume] by Automated lwghe49-546SokcfrbgjThe Bellevue HospitalMagnesiumOrdered By: Alta Schmid on 20-64-5247Hbxdfqcvx [Mass/Vol]1.6 mg/dLLow1.9-2.7FMarietta Memorial HospitalComment on above:Performed By: #### [id number], URIC, ADDONUAPLUS, CBCNO, PROCRERAT, RENAL, MG, PTH #### [facility] [address] [place] [address] USAMagnesium [Mass/volume] in Serum or PlasmaOrdered By: Alta Schmid on 30-28-3362Kljszrqdu [Mass/Vol]Magnesium [Mass/volume] in Serum or PlasmaLow1.9-2.7FMarietta Memorial HospitalNitrite Test strip Ql (U) Ordered By: Alta Schmid on 86-33-4429Qyfrwvc Ql (U)Nitrite [Presence] in Urine by Test stripNegativeThe Bellevue HospitalNitrite Ql (U)Negative NegativeThe Bellevue HospitalNo Panel InformationOrdered By: Alta Schmid on 31-18-7026Tjblsntuj GFR (CKD-EPI)46.949 mL/MinThe Bellevue HospitalPharmacy Creatinine Clearance (ChemN/[facility] LimaParathyrin.intact [Mass/volume] in Serum or PlasmaOrdered By: Alta Schmid on 12-06-9561Nzkjzvyuqt.intact [Mass/Vol]Parathyrin.intact [Mass/volume] in Serum or Ywergl38-22FfftkwnvrThe Bellevue HospitalParathyrin.intact [Mass/Vol]80.6 pg/yI55-73ZbhrwkotzThe Bellevue HospitalParathyroid Hormone Intacton 03-52-2845Kowbliiendx Hormone Szlzvy20.6 pg/qMMcxuut67-93Haj [facility] Physician GroupComment on above:Result Comment: PERFORMED BY: [facility] [address] [facility] [address] PATHOLOGIST CALL CENTER ANALYST CLAU SOTO M.D.Performed By: #### [id number], URIC, ADDONUAPLUS, CBCNO, PROCRERAT, RENAL, MG, PTH #### [facility] [address] [place] [address] USAPhosphate [Mass/volume] in Serum or PlasmaOrdered By: Alta Schmid on 29-07-8671Sxplpjzrm [Mass/Vol]Phosphate [Mass/volume] in Serum or Plasma2.5-4.5FMarietta Memorial HospitalPlatelet mean volume Auto (Bld) [Entitic vol]Ordered By: Alta Schmid on 32-02-9729Kszlvuwq mean volume (Bld) [Entitic vol]Platelet mean volume [Entitic volume] in Blood by Automated count 6.3-10.7FMarietta Memorial HospitalPlatelets Auto (Bld) [#/Vol]Ordered By: Alta Schmid on 61-42-2853Puhuorfgh (Bld) [#/Vol]Platelets [#/volume] in Blood by Automated bqksu486-877DdsshvsqoThe Bellevue HospitalPotassium [Moles/volume] in Serum or PlasmaOrdered By: Alta Schmid on 01-15-5658Ecxsvwomi [Moles/Vol]Potassium [Moles/volume] in Serum or Plasma3.5-5.1FMarietta Memorial HospitalProtein Creat Ratio Ur Randomon 76-23-3510Unfbjigosk, Urine (Random)66.00 mg/dLNoNovant Health Physician GroupComment on above:Result Comment: No reference range establishedPerformed By: #### [id number], URIC, ADDONUAPLUS, CBCNO, PROCRERAT, RENAL, MG, PTH #### [facility] [address] [place] [address] USAUrine Protein/Creatinine Ucidj5903 mg/g{Cre}High0-200The [facility] Physician GroupComment on above:Result Comment: PERFORMED BY: [place] [address] PATHOLOGIST CALL CENTER ANALYST CLAU SOTO M.D.Performed By: #### [id number], URIC, ADDONUAPLUS, CBCNO, PROCRERAT, RENAL, MG, PTH #### [place] [id number] USAProtein Creat Ratio Ur RandomOrdered By: Alta Schmid on 02-22-4968Shkmgmn (U) [Mass/Vol]82 mg/dLHigh0-9The [facility] Comment on above:Performed By: #### [id number], URIC, ADDONUAPLUS, CBCNO, PROCRERAT, RENAL, MG, PTH #### [facility] [address] [place] [id number] USAProtein Test strip (U) [Mass/Vol]Ordered By: Alta Schmid on 23-87-7175Glehgrz (U) [Mass/Vol]Protein [Mass/volume] in Urine by Test strip HighNegativeThe Bellevue HospitalProtein [Mass/volume] in Urine Ordered By: Alta Schmid on 30-58-8394Jxmudbv (U) [Mass/Vol]Protein [Mass/volume] in UrineHigh0-9The Bellevue HospitalRBC Auto (Bld) [#/Vol]Ordered By: Alta Fletcherr on 80-20-8496HUX (Bld) [#/Vol]Erythrocytes [#/volume] in Blood by Automated countHigh3.60-5.00The Bellevue HospitalRenal Function Panelon 21-66-4762Bxudjyj [Mass/Vol]4.0 g/dLNormal3.5-5.7ThSaint Alphonsus Medical Center [facility]ampa Physician GroupComment on above:Performed By: #### [id number], URIC, ADDONUAPLUS, CBCNO, PROCRERAT, RENAL, MG, PTH #### [facility] [address] [place] [address] USAEstimated GFR46.949 mL/MinNormalThe [facility] Physician [facility] CenterComment on above:Performed By: #### [id number], URIC, ADDONUAPLUS, CBCNO, PROCRERAT, RENAL, MG, PTH #### [facility] [address] [place] [address] USARenal Function PanelOrdered By: Alta Schmid on 09-30-2024 Anion gap [Moles/Vol]13.7 mmol/L6.0-15.0The Bellevue HospitalComment on above:Performed By: #### [id number], URIC, ADDONUAPLUS, CBCNO, PROCRERAT, RENAL, MG, PTH #### [facility] [address] [place] [address] USACalcium [Mass/Vol]8.9 mg/dL8.6-10.3FMarietta Memorial HospitalComment on above:Performed By: #### [id number], URIC, ADDONUAPLUS, CBCNO, PROCRERAT, RENAL, MG, PTH #### [facility] [address] [place] [address] USAChloride [Moles/Vol]102 mmol/J28-713LsbsairzdThe Bellevue HospitalComment on above:Performed By: #### [id number], URIC, ADDONUAPLUS, CBCNO, PROCRERAT, RENAL, MG, PTH #### [facility] [address] [place] [address] USACO2 [Moles/Vol]26.2 mmol/L21.0-31.0The Bellevue HospitalComment on above:Performed By: #### [id number], URIC, ADDONUAPLUS, CBCNO, PROCRERAT, RENAL, MG, PTH #### [facility] [address] [place] [address] USACreatinine [Mass/Vol]1.25 mg/dLHigh0.60-1.20The [facility] HospitalComment on above:Performed By: #### [id number], URIC, ADDONUAPLUS, CBCNO, PROCRERAT, RENAL, MG, PTH #### [facility] [address] [place] [address] USAGlucose [Mass/Vol]268 mg/fLHkxk91-374WchzwnbaeThe Bellevue HospitalComment on above:Result Comment: Random Glucose Reference Range is dependent on time and content of last meal. Glucose of more than 200 mg/dL in a nonstressed, ambulatory subject supports the diagnosis of Diabetes Mellitus. ADA recommended reference rangePerformed By: #### [id number], URIC, ADDONUAPLUS, CBCNO, PROCRERAT, RENAL, MG, PTH #### [facility] [address] [place] [address] USAADA recommended reference rangeRandom Glucose Reference Range is dependent on time and content of last meal. Glucose of more than 200 mg/dL in a nonstressed, ambulatory subject supports the diagnosisof Diabetes Mellitus.Phosphate [Mass/Vol]3.1 mg/dL2.5-4.5FMarietta Memorial Hospital Comment on above:Performed By: #### [id number], URIC, ADDONUAPLUS, CBCNO, PROCRERAT, RENAL, MG, PTH #### [facility] [address] [place] [address] USAPotassium [Moles/Vol]4.9 mmol/L3.5-5.1FMarietta Memorial HospitalComment on above:Performed By: #### [id number], URIC, ADDONUAPLUS, CBCNO, PROCRERAT, RENAL, MG, PTH #### [facility] [address] [place] [address] USASodium [Moles/Vol]137 mmol/Z314-020RetcxzzbgThe Bellevue HospitalComment on above:Performed By: #### [id number], URIC, ADDONUAPLUS, CBCNO, PROCRERAT, RENAL, MG, PTH #### [facility] [address] [place] [address] USAUrea nitrogen [Mass/Vol]24 mg/dL7-25The Bellevue HospitalComment on above:Performed By: #### [id number], URIC, ADDONUAPLUS, CBCNO, PROCRERAT, RENAL, MG, PTH #### [place] [address] USASerum or plasma anion gap determinationOrdered By: Alta Fletcherr on 39-52-3269Fqnem gap [Moles/Vol]Serum or plasma anion gap determination 6.0-15.0[facility] Osteopathic Clinicodium [Moles/volume] in Serum or PlasmaOrdered By: Alta Fletcherr on 44-01-3854Hzjseg [Moles/Vol]Sodium [Moles/volume] in Serum or Notlvf771-405OxpgtijrnThe Bellevue Hospital Specific gravity Test strip (U) [Rel density]Ordered By: Alta Sharmaine on 83-15-3604Iiajauyn gravity (U) [Rel density]Specific gravity of Urine by Test strip1.001-1.030Marietta Osteopathic Clinicpecific gravity (U) [Rel density]1.0131.001-1.030The Bellevue HospitalUrate [Mass/volume] in Serum or PlasmaOrdered By: Alta Fletcherr on 49-26-8023Fuhyv [Mass/Vol]Urate [Mass/volume] in Serum or PlasmaHigh2.3-6.6FMarietta Memorial HospitalUrea nitrogen [Mass/volume] in Serum or PlasmaOrdered By: Alta Schmid on 09-30-2024 Urea nitrogen [Mass/Vol]Urea nitrogen [Mass/volume] in Serum or Plasma7 The [facility] HospitalUric AcidOrdered By: Alta Schmid on 09-30-2024 Urate [Mass/Vol]8.3 mg/dLHigh2.3-6.6FMarietta Memorial HospitalComment on above:Performed By: #### [id number], URIC, ADDONUAPLUS, CBCNO, PROCRERAT, RENAL, MG, PTH #### [facility] [address] [place] [id number] USAUrine protein/creatinine ratioOrdered By: Alta Schmid on 41-65-4464Gcloiyt/Creatinine (U) [Ratio]Urine protein/creatinine ratioHigh0-200 The [facility] HospitalProtein/Creatinine (U) [Ratio]1242 mg/g{Cre} High0-200The [facility]vue HospitalUrobilinogen Test strip (U) [Mass/Vol] Ordered By: Alta Schmid on 99-76-8232Mjejtrbyljkj (U) [Mass/Vol]Urobilinogen [Mass/volume] in Urine by Test stripNoMercy Health – The Jewish Hospital Urobilinogen (U) [Mass/Vol]Normal mg/dLNoMercy Health – The Jewish Hospital Vitamin D 25 Hydroxy Totalon 26-48-8599Yuyxmed D 25 Hydroxy Total26.8 ng/mLLow 30-100The [facility] Physician GroupComment on above:Result Comment: VITAMIN D STATUS 25(OH)VITAMIN D RANGE (ng/mL) Deficient <20 Insufficient 20 to <30 Sufficient 30 to 100 Reference: Raven MF,Isai NC, Randa WALSH, et al. Evaluation,treatment, and prevention of vitamin D deficiency; an Endocrine Society clinical practice guideline. JCEM. 2010; 96(7):1911-30. PERFORMED BY: [facility] [address] [place] [id number] PATHOLOGIST CALL CENTER ANALYST CLAU SOTO M.D.Performed By: #### [id number], URIC, ADDONUAPLUS, CBCNO, PROCRERAT, RENAL, MG, PTH #### [facility] [address] StreetVitamin D+Metabolites [Mass/volume] in Serum or Plasma Ordered By: Alta Schmid on 07-06-8281Movytin D+Metabolites [Mass/Vol]Vitamin D+Metabolites [Mass/volume] in Serum or AibzdjGpl40-846NbitqffsgThe Bellevue HospitalComment on above:VITAMIN D STATUS 25(OH)VITAMIN D RANGE (ng/mL) Deficient <20 Insufficient 20 to <45Pxxegxhaxh28 to 100Reference: Isai Rich, Randa WALSH, et al. Evaluation,treatment, and prevention of vitamin D deficiency; an Endocrine Society clinical practice guideline. JCEM. 2010; 96(7):191-.Vitamin D+Metabolites [Mass/Vol]26.8 ng/eUWvt68-962 The [facility] HospitalComment on above:VITAMIN D STATUS 25(OH)VITAMIN D RANGE (ng/mL) Deficient <20 Insufficient 20 to <72Zhnphhkczm05 to 100Reference: Isai Rich, Randa WALSH, et al. Evaluation,treatment, and prevention of vitamin D deficiency; an Endocrine Society clinical practice guideline. JCEM. 2010; 96(7):1911-30.pH Test strip (U)Ordered By: Alta Schmid on 13-94-1121hV (U)pH of Urine by Test strip5.0-9.0 The [facility] HospitalAlbumin [Mass/volume] in Serum or Plasma by Bromocresol green (BCG) dye binding methoOrdered By: Alta Schmid on 03-14-2024 Albumin BCG dye [Mass/Vol]Albumin [Mass/volume] in Serum or Plasma by Bromocresol green (BCG) dye binding metho3.5-5.7FMarietta Memorial HospitalAppearance of UrineOrdered By: Alta Schmid on 68-85-6233Pzcddrehkj (U) Urine appearanceCleMercy Health St. Charles HospitalBacteria [Presence] in Urine by AutomatedOrdered By: Alta Schmid on 46-78-7118Nhdeljtw Auto Ql (U) Bacteria [Presence] in Urine by AutomatedNone SeenThe Bellevue HospitalBilirubin Test strip Ql (U)Ordered By: Alta Schmid on 66-50-5649Lzdcsqbwc Ql (U)Bilirubin.total [Presence] in Urine by Test stripNegativeThe Bellevue HospitalCalcium [Mass/volume] in Serum or PlasmaOrdered By: Alta Schmid on 33-03-9350Yeuatrt [Mass/Vol]Calcium [Mass/volume] in Serum or Plasma 8.6-10.3FMarietta Memorial HospitalCarbon dioxide, total [Moles/volume] in Serum or PlasmaOrdered By: Alta Schmid on 12-49-9677OL4 [Moles/Vol]Carbon dioxide, total [Moles/volume] in Serum or Msncwv19.0-31.0The [facility] HospitalChloride [Moles/volume] in Serum or PlasmaOrdered By: Alta Schmid on 87-28-5429Hfupkzdx [Moles/Vol]Chloride [Moles/volume] in Serum or Plasma 98-107The [facility] HospitalColor Auto (U)Ordered By: Alta Schmid on 84-62-4879Rbgqn (U)Color of Urine by AutoYellowThe [facility]vue Hospital Creatinine [Mass/volume] in Serum or PlasmaOrdered By: Alta Schmid on 03-14-2024 Creatinine [Mass/Vol]Creatinine [Mass/volume] in Serum or PlasmaHigh0.60-1.20 The [facility] HospitalCreatinine [Mass/volume] in UrineOrdered By: Alta Schmid on 25-93-9718Fgzugkirre (U) [Mass/Vol]Creatinine [Mass/volume] in UrineThe Bellevue HospitalComment on above:No reference range establishedDipstick and Microscopicon 62-37-5998Ovjexjvbmf (U)ClearNormalClear The [facility] Physician GroupComment on above:Order Comment: Name Collection Type:: Clean-Voided MidstreamPerformed By: #### ADDONUAPLUS, CBCNO, PROCRERAT, [id number], RENAL, PTH, URIC, MG #### [place] [address] USABacteria,UrineRareNormalNone SeenThe [facility] Physician GroupComment on above:Order Comment: Name Collection Type:: Clean-Voided MidstreamPerformed By: #### ADDONUAPLUS, CBCNO, PROCRERAT, [id number], RENAL, PTH, URIC, MG #### [place] [address] USABilirubin,UrineNegativeNormalNegativeBaptist Health Hospital Doral Physician GroupComment on above:Order Comment: Name Collection Type:: Clean- Voided MidstreamPerformed By: #### ADDONUAPLUS, CBCNO, PROCRERAT, [id number], RENAL, PTH, URIC, MG #### [place] [address] USAColor (U)ColorlessNormalYellowBaptist Health Hospital Doral Physician GroupComment on above:Order Comment: Name Collection Type:: Clean-Voided MidstreamPerformed By: #### ADDONUAPLUS, CBCNO, PROCRERAT, [id number], RENAL, PTH, URIC, MG #### [place] [address] USAGlucose Ql (U)200 mg/dLHighAdventHealth for Children Physician GroupComment on above:Order Comment: Name Collection Type:: Clean-Voided MidstreamPerformed By: #### ADDONUAPLUS, CBCNO, PROCRERAT, [id number], RENAL, PTH, URIC, MG #### [place] [address] USAHyaline Casts,Urine0 [LPF]Normal0-8The [facility] Physician GroupComment on above:Order Comment: Name Collection Type:: Clean-Voided MidstreamPerformed By: #### ADDONUAPLUS, CBCNO, PROCRERAT, [id number], RENAL, PTH, URIC, MG #### [place] [address] USAKetones Ql (U)NegativeNormalNegativeBaptist Health Hospital Doral Physician GroupComment on above:Order Comment: Name Collection Type:: Clean- Voided MidstreamPerformed By: #### ADDONUAPLUS, CBCNO, PROCRERAT, [id number], RENAL, PTH, URIC, MG #### [place] [address] USALeukocyte esterase Test strip Ql (U)NegativeNormalNegative The [facility] Physician GroupComment on above:Order Comment: Name Collection Type:: Clean-Voided MidstreamPerformed By: #### ADDONUAPLUS, CBCNO, PROCRERAT, [id number], RENAL, PTH, URIC, MG #### [place] [address] USAMucus,UrineRareNormalThe [facility] Physician GroupComment on above:Order Comment: Name Collection Type:: Clean-Voided MidstreamResult Comment: PERFORMED BY: [place] [address] PATHOLOGIST CALL CENTER ANALYST SHANTE LOMBARDI M.D.Performed By: #### ADDONUAPLUS, CBCNO, PROCRERAT, [id number], RENAL, PTH, URIC, MG #### [place] [address] USANitrite,UrineNegativeNormalNegativeThe [facility] Physician GroupComment on above:Order Comment: Name Collection Type:: Clean-Voided MidstreamPerformed By: #### ADDONUAPLUS, CBCNO, PROCRERAT, [id number], RENAL, PTH, URIC, MG #### [place] [address] USAOccult Blood,UrineNegativeNormalNegativeThe [facility] Physician GroupComment on above:Order Comment: Name Collection Type:: Clean- Voided MidstreamPerformed By: #### ADDONUAPLUS, CBCNO, PROCRERAT, [id number], RENAL, PTH, URIC, MG #### [place] [address] USApH (U)5.5 [pH]Normal5.0-9.0The [facility]ician Group Comment on above:Order Comment: Name Collection Type:: Clean-Voided Midstream Performed By: #### ADDONUAPLUS, CBCNO, PROCRERAT, [id number], RENAL, PTH, URIC, MG #### [facility] [address] [place] [address] USAProtein,UrineNegativeNormalNegativeBaptist Health Hospital Doral Physician GroupComment on above:Order Comment: Name Collection Type:: Clean-Voided MidstreamPerformed By: #### ADDONUAPLUS, CBCNO, PROCRERAT, [id number], RENAL, PTH, URIC, MG #### [facility] [address] [place] [address] USARBC,Urine1 [HPF]Normal0-4The [facility] Physician Group Comment on above:Order Comment: Name Collection Type:: Clean-Voided Midstream Performed By: #### ADDONUAPLUS, CBCNO, PROCRERAT, [id number], RENAL, PTH, URIC, MG #### [place] [address] USASpecificy [place],Urine1.507Igqkny1.001-1.030[facility] Physician GroupComment on above:Order Comment: Name Collection Type:: Clean- Voided MidstreamPerformed By: #### ADDONUAPLUS, CBCNO, PROCRERAT, [id number], RENAL, PTH, URIC, MG #### [facility] [address] [place] [address] USASquamous Epithelial Cell,Urine3 [HPF]High0-2The [facility] Physician GroupComment on above:Order Comment: Name Collection Type:: Clean- Voided MidstreamPerformed By: #### ADDONUAPLUS, CBCNO, PROCRERAT, [id number], RENAL, PTH, URIC, MG #### [facility] [address] [place] [address] USAUrobilinogen,UrineNormalNormalNormalThe [facility] Physician GroupComment on above:Order Comment: Name Collection Type:: Clean- Voided MidstreamPerformed By: #### ADDONUAPLUS, CBCNO, PROCRERAT, [id number], RENAL, PTH, URIC, MG #### [facility] [address] [place] [id number] USAWBC,Urine1 [HPF]Normal0-4The [facility] Physician Group Comment on above:Order Comment: Name Collection Type:: Clean-Voided Midstream Performed By: #### ADDONUAPLUS, CBCNO, PROCRERAT, [id number], RENAL, PTH, URIC, MG #### [facility] [address] [place] [address] USAEpithelial cells.squamous [#/area] in Urine sediment by Automated countOrdered By: Alta Schmid on 48-86-5868Cmxmnkslnf cells.squamous Auto (Urine sed) [#/Area]Epithelial cells.squamous [#/area] in Urine sediment by Automated countPrinceton Community Hospital02FMarietta Memorial HospitalErythrocyte distribution width Auto (RBC) [Ratio]Ordered By: Alta Schmid on 24-28-5278Nsiuagbkltm distribution width (RBC) [Ratio]Erythrocyte distribution width [Ratio] by Automated count11.9-15.3FMarietta Memorial HospitalErythrocytes [#/area] in Urine sediment by Automated countOrdered By: Alta Schmid on 04-21-1169NSL Auto (Urine sed) [#/Area]Erythrocytes [#/area] in Urine sediment by Automated count0-4FMarietta Memorial HospitalGlucose [Mass/volume] in Serum or PlasmaOrdered By: Alta Schmid on 25-36-7399Tbolabn [Mass/Vol]Glucose [Mass/volume] in Serum or JfjlrbAcfo27-102Ocgl[address] Comment on above:ADA recommended reference rangeRandom Glucose Reference Range is dependent on time and content of last meal. Glucose of more than 200 mg/dL in a nonstressed, ambulatory subject supports the diagnosisof Diabetes Mellitus. Glucose [Mass/volume] in Urine by Test stripOrdered By: Alta Schmid on 24-45-4689Ankkwdj Test strip (U) [Mass/Vol]Glucose [Mass/volume] in Urine by Test stripPrinceton Community HospitalNormalThe Bellevue HospitalHematocrit Auto (Bld) [Volume fraction]Ordered By: Alta Schmid on 80-24-1790Pnpwytcilg (Bld) [Volume fraction]Hematocrit [Volume Fraction] of Blood by Automated count34.0-46.4 The [facility] HospitalHemoglobin Test strip Ql (U)Ordered By: Alta Schmid on 64-68-1135Tkscdzjjzg Ql (U)Hemoglobin [Presence] in Urine by Test strip NegativeThe Bellevue HospitalHemoglobin [Mass/volume] in Blood Ordered By: Alta Schmid on 57-69-4360Jfaedtpasu (Bld) [Mass/Vol]Hemoglobin [Mass/volume] in Blood11.8-15.4FMarietta Memorial HospitalHemogram CBC Without Diffon 68-78-6667Quoudmymtrd distribution width (RBC) [Ratio]14.5 % Oziydi61.9-15.3The [facility] Physician GroupComment on above:Performed By: #### ADDONUAPLUS, CBCNO, PROCRERAT, [id number], RENAL, PTH, URIC, MG #### [facility] [address] [place] [address] USAHematocrit (Bld) [Volume fraction]43.9 %Bggvqg67.0-46.4The [facility] Physician GroupComment on above:Performed By: #### ADDONUAPLUS, CBCNO, PROCRERAT, [id number], RENAL, PTH, URIC, MG #### [facility] [address] [place] [address] USAHemoglobin (Bld) [Mass/Vol]15.1 g/fNXpjysx23.8-15.4The [facility] Physician GroupComment on above:Performed By: #### ADDONUAPLUS, CBCNO, PROCRERAT, [id number], RENAL, PTH, URIC, MG #### [facility] [address]H (RBC) [Entitic mass]31.0 inQxiduu85.7-34.3The [facility] Physician GroupComment on above:Performed By: #### ADDONUAPLUS, CBCNO, PROCRERAT, [id number], RENAL, PTH, URIC, MG #### [facility] [address]V (RBC) [Entitic vol]90.4 gQRejprs72-772Drm [facility] Physician GroupComment on above:Performed By: #### ADDONUAPLUS, CBCNO, PROCRERAT, [id number], RENAL, PTH, URIC, MG #### [facility] [address] [place] [address] USAMean Corpuscular HGB Conc34.3 g/iOKqzfyg76.0-35.0The [facility] Physician GroupComment on above:Performed By: #### ADDONUAPLUS, CBCNO, PROCRERAT, [id number], RENAL, PTH, URIC, MG #### [facility] [address] [place] [address] USAPlatelet mean volume (Bld) [Entitic vol]8.7 fLNormal 6.3-10.7The [facility] Physician GroupComment on above:Result Comment: PERFORMED BY: [place] [address] PATHOLOGIST CALL CENTER ANALYST SHANTE LOMBARDI M.D.Performed By: #### ADDONUAPLUS, CBCNO, PROCRERAT, [id number], RENAL, PTH, URIC, MG #### [place] [address] USAPlatelets (Bld) [#/Vol]268 10*3/eAIknqat451-223Mzo [facility] Physician GroupComment on above:Performed By: #### ADDONUAPLUS, CBCNO, PROCRERAT, [id number], RENAL, PTH, URIC, MG #### [place] [address] USARBC (Bld) [#/Vol]4.86 10*6/uLNormal3.60-5.00The [facility] Physician GroupComment on above:Performed By: #### ADDONUAPLUS, CBCNO, PROCRERAT, [id number], RENAL, PTH, URIC, MG #### [place] [address] USAWBC (Bld) [#/Vol]11.8 10*3/uLHigh3.8-11.6The [facility] Physician GroupComment on above:Performed By: #### ADDONUAPLUS, CBCNO, PROCRERAT, [id number], RENAL, PTH, URIC, MG #### [place] [address] USAHyaline casts [#/area] in Urine sediment by Automated countOrdered By: Alta Schmid on 67-63-3496Ikpfldo casts Auto (Urine sed) [#/Area]Hyaline casts [#/area] in Urine sediment by Automated count0-8The [facility]vue HospitalKetones Test strip Ql (U)Ordered By: Alta Comerdir on 27-10-5399Efakyeh Ql (U)Ketones [Presence] in Urine by Test stripNegative The [facility]vue HospitalLeukocyte esterase [Presence] in Urine by Test stripOrdered By: Alta Schmid on 80-85-4974Hlmgzbmdq esterase Test strip Ql (U) Leukocyte esterase [Presence] in Urine by Test stripNegativeThe Bellevue HospitalLeukocytes [#/area] in Urine sediment by Automated countOrdered By: Alta Schmid on 82-71-1386JVT Auto (Urine sed) [#/Area]Leukocytes [#/area] in Urine sediment by Automated count04FMarietta Memorial HospitalLeukocytes [#/volume] corrected for nucleated erythrocytes in Blood by Automated coun Ordered By: Alta Schmid on 69-07-8175VWR corrected for nucl RBC Auto (Bld) [#/Vol]Leukocytes [#/volume] corrected for nucleated erythrocytes in Blood by Automated counHigh3.8-11.6FPomerene HospitalH Auto (RBC) [Entitic mass]Ordered By: Alta Comerdir on 93-68-0489WES (RBC) [Entitic mass]MCH [Entitic mass] by Automated count24.7-34.3FMarietta Memorial HospitalMCHC Auto (RBC) [Mass/Vol]Ordered By: Alta Sharmaine on 12-52-7047DUHX (RBC) [Mass/Vol] MCHC [Mass/volume] by Automated count32.0-35.0[facility] MCV Auto (RBC) [Entitic vol]Ordered By: Alta Sharmaine on 95-94-9009ZXR (RBC) [Entitic vol]MCV [Entitic volume] by Automated ykszm43-563GthjjtccmThe Bellevue HospitalMagnesiumon 44-74-7623Ybrqfrlqq [Mass/Vol]1.3 mg/dLLow1.9-2.7The [facility] Physician GroupComment on above:Performed By: #### [id number], URIC, ADDONUAPLUS, CBCNO, PROCRERAT, RENAL, MG, PTH #### [facility] [address] [id number] USAMagnesium [Mass/volume] in Serum or PlasmaOrdered By: Alta Schmid on 49-54-7449Wmntrwocl [Mass/Vol]Magnesium [Mass/volume] in Serum or PlasmaLow1.9-2.7FMarietta Memorial HospitalMucus [Presence] in Urine by AutomatedOrdered By: Alta Schmid on 21-84-1815Vdmyt Auto Ql (U)Mucus [Presence] in Urine by AutomatedThe Bellevue HospitalNitrite Test strip Ql (U) Ordered By: Alta Schmid on 99-95-3716Gnpsyye Ql (U)Nitrite [Presence] in Urine by Test stripNegativeThe Bellevue HospitalNo Panel Information Ordered By: Alta Schmid on 98-69-9987Ozeoubsoe GFR (CKD-EPI)39.618 mL/Min [facility] HospitalPharmacy Creatinine Clearance (ChemN/[facility] LimaParathyrin.intact [Mass/volume] in Serum or Plasma Ordered By: Alta Schmid on 83-96-0264Yoiylsdcux.intact [Mass/Vol] Parathyrin.intact [Mass/volume] in Serum or Svijln54-40GefdqcyiyThe Bellevue HospitalParathyroid Hormone Intacton 65-28-4106Alfgmmowiaw Hormone Intact 50.5 pg/aGDvletr37-66Hfs [facility] Physician GroupComment on above:Result Comment: PERFORMED BY: [facility] [address] [facility] [address] PATHOLOGIST CALL CENTER ANALYST SHANTE LOMBARDI M.D.Performed By: #### [id number], URIC, ADDONUAPLUS, CBCNO, PROCRERAT, RENAL, MG, PTH #### [facility] [address] [place] [address] USAPhosphate [Mass/volume] in Serum or PlasmaOrdered By: Alta Schmid on 66-81-0473Uveijbjrt [Mass/Vol]Phosphate [Mass/volume] in Serum or Plasma2.5-4.5FMarietta Memorial HospitalPlatelet mean volume Auto (Bld) [Entitic vol]Ordered By: Alta Schmid on 11-74-3214Tscgdpzd mean volume (Bld) [Entitic vol]Platelet mean volume [Entitic volume] in Blood by Automated count 6.3-10.7FMarietta Memorial HospitalPlatelets Auto (Bld) [#/Vol]Ordered By: Alta Schmid on 01-10-3302Nuzydlxul (Bld) [#/Vol]Platelets [#/volume] in Blood by Automated mzaea628-818UujwxfumfThe Bellevue HospitalPotassium [Moles/volume] in Serum or PlasmaOrdered By: Alta Schmid on 68-84-8504Hdoszlqwm [Moles/Vol]Potassium [Moles/volume] in Serum or Plasma3.5-5.1FMarietta Memorial HospitalProtein Creat Ratio Ur Randomon 20-55-4875Vuutruxpxh, Urine (Random)25.00 mg/dLNormalThe [facility] Physician GroupComment on above:Result Comment: No reference range establishedPerformed By: #### [id number], URIC, ADDONUAPLUS, CBCNO, PROCRERAT, RENAL, MG, PTH #### [facility] [address] [place] [address] USAProtein (U) [Mass/Vol]9 mg/dLNormal0-9[facility] CenterComment on above:Performed By: #### [id number], URIC, ADDONUAPLUS, CBCNO, PROCRERAT, RENAL, MG, PTH #### [facility] [address] [place] [address] USAUrine Protein/Creatinine Lrzvs768 mg/g{Cre}High0-200The [facility]. Clair HospitalComment on above:Result Comment: PERFORMED BY: [place] [address] PATHOLOGIST CALL CENTER ANALYST SHANTE LOMBARDI M.D.Performed By: #### [id number], URIC, ADDONUAPLUS, CBCNO, PROCRERAT, RENAL, MG, PTH #### [facility] [address] [place] [address] USAProtein Test strip (U) [Mass/Vol]Ordered By: Alta Sharmaine on 08-77-5535Nwqvwdv (U) [Mass/Vol]Protein [Mass/volume] in Urine by Test strip NegativeThe Bellevue HospitalProtein [Mass/volume] in UrineOrdered By: Alta Sharmaine on 38-84-8164Cfytkfs (U) [Mass/Vol]Protein [Mass/volume] in Urine0-9The [facility] HospitalRBC Auto (Bld) [#/Vol]Ordered By: Alta Sharmaine on 97-06-4701YIV (Bld) [#/Vol]Erythrocytes [#/volume] in Blood by Automated count3.60-5.00The [facility] HospitalRenal Function Panelon 44-57-7358Hybktmo [Mass/Vol]3.9 g/dLNormal3.5-5.7The [facility] Physician Group Comment on above:Performed By: #### [id number], URIC, ADDONUAPLUS, CBCNO, PROCRERAT, RENAL, MG, PTH #### [facility] [address] [id number] USAAnion gap [Moles/Vol]12.5 mmol/LNormal6.0-15.0The [facility] Physician GroupComment on above:Performed By: #### [id number], URIC, ADDONUAPLUS, CBCNO, PROCRERAT, RENAL, MG, PTH #### [facility] [address] [id number] USACalcium [Mass/Vol]9.3 mg/dLNormal8.6-10.3The [facility] Physician GroupComment on above:Performed By: #### [id number], URIC, ADDONUAPLUS, CBCNO, PROCRERAT, RENAL, MG, PTH #### [facility] [address] [id number] USAChloride [Moles/Vol]100 mmol/QFfvxgt93-502Aux [facility] Physician GroupComment on above:Performed By: #### [id number], URIC, ADDONUAPLUS, CBCNO, PROCRERAT, RENAL, MG, PTH #### [facility] [address] [place] [address] USACO2 [Moles/Vol]28.3 mmol/AZqiqiw35.0-31.0The [facility] Physician GroupComment on above:Performed By: #### [id number], URIC, ADDONUAPLUS, CBCNO, PROCRERAT, RENAL, MG, PTH #### [facility] [address] [place] [address] USACreatinine [Mass/Vol]1.44 mg/dLHigh0.60-1.20The [facility] Physician GroupComment on above:Performed By: #### [id number], URIC, ADDONUAPLUS, CBCNO, PROCRERAT, RENAL, MG, PTH #### [facility] [address] [place] [address] USAGFR/1.73 sq M.predicted MDRD (S/P/Bld) [Vol rate/Area] 39.618 mL/min/{1.73_m2}NormalThe [facility] Physician GroupComment on above: Performed By: #### [id number], URIC, ADDONUAPLUS, CBCNO, PROCRERAT, RENAL, MG, PTH #### [place] [address] USAGlucose [Mass/Vol]361 mg/mVQuyf57-139Ngr [facility] Physician GroupComment on above:Result Comment: Random Glucose Reference Range is dependent on time and content of last meal. Glucose of more than 200 mg/dL in a nonstressed, ambulatory subject supports the diagnosis of Diabetes Mellitus. ADA recommended reference rangePerformed By: #### [id number], URIC, ADDONUAPLUS, CBCNO, PROCRERAT, RENAL, MG, PTH #### [facility] [address] [place] [address] USAPhosphate [Mass/Vol]3.0 mg/dLNormal2.5-4.5The [facility] Physician GroupComment on above:Performed By: #### [id number], URIC, ADDONUAPLUS, CBCNO, PROCRERAT, RENAL, MG, PTH #### [facility] [address] [id number] USAPotassium [Moles/Vol]4.8 mmol/LNormal3.5-5.1The [facility] Physician GroupComment on above:Performed By: #### [id number], URIC, ADDONUAPLUS, CBCNO, PROCRERAT, RENAL, MG, PTH #### [facility] [address] [id number] USASodium [Moles/Vol]136 mmol/PNlsbuz061-684Wpc [facility] Physician GroupComment on above:Performed By: #### [id number], URIC, ADDONUAPLUS, CBCNO, PROCRERAT, RENAL, MG, PTH #### [facility] [address] [place] [address] USAUrea nitrogen [Mass/Vol]27 mg/dLHigh7-25The [facility] Physician GroupComment on above:Performed By: #### [id number], URIC, ADDONUAPLUS, CBCNO, PROCRERAT, RENAL, MG, PTH #### [facility] [address] [id number] USASerum or plasma anion gap determinationOrdered By: Alta Schmid on 96-55-0991Qivyb gap [Moles/Vol]Serum or plasma anion gap determination 6.0-15.0[facility] Osteopathic Clinicodium [Moles/volume] in Serum or PlasmaOrdered By: Alta Sharmaine on 35-49-2735Hfmfat [Moles/Vol]Sodium [Moles/volume] in Serum or Xfdwpa153-648DgkllmglhThe [facility] Hospital Specific gravity Test strip (U) [Rel density]Ordered By: Alta Sharmaine on 47-96-3315Umglmnlo gravity (U) [Rel density]Specific gravity of Urine by Test strip1.001-1.030The [facility] HospitalUrate [Mass/volume] in Serum or PlasmaOrdered By: Alta Sharmaine on 81-62-8051Apruy [Mass/Vol]Urate [Mass/volume] in Serum or PlasmaHigh2.3-6.6FMarietta Memorial HospitalUrea nitrogen [Mass/volume] in Serum or PlasmaOrdered By: Alta Sharmaine on 86-35-0540Apet nitrogen [Mass/Vol]Urea nitrogen [Mass/volume] in Serum or PlasmaHigh7-25 The [facility] HospitalUric Acidon 35-07-8839Ywgvn [Mass/Vol]6.9 mg/dL High2.3-6.6The [facility] Physician GroupComment on above:Performed By: #### [id number], URIC, ADDONUAPLUS, CBCNO, PROCRERAT, RENAL, MG, PTH #### [facility] [address] [place] [address] USAUrine protein/creatinine ratioOrdered By: Alta Schmid on 03-70-5564Bofaxml/Creatinine (U) [Ratio]Urine protein/creatinine ratioHigh0-200 The [facility] HospitalUrobilinogen Test strip (U) [Mass/Vol]Ordered By: Alta Schmid on 48-09-1501Mbqhnazrdyyi (U) [Mass/Vol]Urobilinogen [Mass/volume] in Urine by Test stripNormalThe [facility] Vitamin D 25 Hydroxy Totalon 50-73-0747Ufzasnr D 25 Hydroxy Total30.4 ng/mL Fsvvey37-212Ewa [facility] Physician GroupComment on above:Result Comment: VITAMIN D STATUS 25(OH)VITAMIN D RANGE (ng/mL) Deficient <20 Insufficient 20 to <30 Sufficient 30 to 100 Reference: Raven MF,Isai NC, Randa WALSH, et al. Evaluation,treatment, and prevention of vitamin D deficiency; an Endocrine Society clinical practice guideline. JCEM. 2010; 96(7):1911-30. PERFORMED BY: [facility] [address] [facility] [address] PATHOLOGIST CALL CENTER ANALYST SHANTE LOMBARDI M.D.Performed By: #### [id number], URIC, ADDONUAPLUS, CBCNO, PROCRERAT, RENAL, MG, PTH #### [facility] [address] [place] [address] USAVitamin D+Metabolites [Mass/volume] in Serum or Plasma Ordered By: Alta Schmid on 56-95-6685Zvkewge D+Metabolites [Mass/Vol]Vitamin D+Metabolites [Mass/volume] in Serum or Dnqvqg48-794PoiohbvbrThe Bellevue HospitalComment on above:VITAMIN D STATUS 25(OH)VITAMIN D RANGE (ng/mL) Deficient <20 Insufficient 20 to <27Wsqzveugsh23 to 100Reference: Raven MF,Isai CLARK, Randa WALSH, et al. Evaluation,treatment, and prevention of vitamin D deficiency; an Endocrine Society clinical practice guideline. JCEM. 2010; 96 (7):1911-30.pH Test strip (U)Ordered By: Alta Schmid on 12-55-5962xX (U)pH of Urine by Test strip5.0-9.0The [facility] HospitalAlbumin [Mass/volume] in Serum or Plasma by Bromocresol green (BCG) dye binding methoOrdered By: Alta Schmid on 56-30-8994Anuzedo BCG dye [Mass/Vol]3.9 g/dL3.5-5.7FMarietta Memorial HospitalAutomated erythrocytes count in urine sediment (number/area)Ordered By: Alta Schmid on 76-38-6934EKS Auto (Urine sed) [#/Area] None seen [HPF]0-4FMarietta Memorial HospitalAutomated leukocytes count in urine sediment (number/area)Ordered By: Alta Schmid on 97-70-8448SXE Auto (Urine sed) [#/Area]0-1 [HPF]0-4FMarietta Memorial HospitalBilirubin Test strip Ql (U)Ordered By: Alta Schmid on 01-81-5340Llwohjxlh Ql (U)Negative NegativeThe [facility]vue HospitalCalcium [Mass/volume] in Serum or PlasmaOrdered By: Alta Schmid on 62-53-1233Ldslvle [Mass/Vol]9.3 mg/dL8.6-10.3 [facility] HospitalCarbon dioxide, total [Moles/volume] in Serum or PlasmaOrdered By: Alta Schmid on 87-95-7871FN5 [Moles/Vol]26.0 mmol/L 21.0-31.0The [facility] HospitalChloride [Moles/volume] in Serum or PlasmaOrdered By: Alta Schmid on 93-43-8274Eolczilf [Moles/Vol]101 mmol/L98-107 [facility] HospitalColor Auto (U)Ordered By: Alta Schmid on 84-81-6941Gdpqz (U)YellowYellowThe [facility]vue HospitalCreatinine [Mass/volume] in Serum or PlasmaOrdered By: Alta Schmid on 37-09-9705Apylpkduey [Mass/Vol]1.41 mg/dL0.60-1.20The [facility] HospitalCreatinine [Mass/volume] in UrineOrdered By: Alta Schmid on 29-21-7685Ryqgkrrydq (U) [Mass/Vol]59.0 mg/dLThe [facility]vue HospitalComment on above:No reference range establishedErythrocyte distribution width Auto (RBC) [Ratio] Ordered By: Alta Schmid on 94-71-1443Saujtxzsyao distribution width (RBC) [Ratio]15.2 %11.9-15.3FMarietta Memorial HospitalGlucose [Mass/volume] in Serum or PlasmaOrdered By: Alta Schmid on 10-29-3585Kxwavim [Mass/Vol]333 mg/dL 70-100The [facility] HospitalComment on above:ADA recommended reference rangeRandom Glucose Reference Range is dependent on time and content of last meal. Glucose of more than 200 mg/dL in a nonstressed, ambulatory subject supports the diagnosisof Diabetes Mellitus.Hematocrit Auto (Bld) [Volume fraction]Ordered By: Alta Schmid on 28-39-2745Zulbjmegpy (Bld) [Volume fraction]43.7 %34.0-46.4FMarietta Memorial HospitalHemoglobin [Mass/volume] in BloodOrdered By: Alta Schmid on 35-86-5827Vlozwljwnm (Bld) [Mass/Vol]15.0 g/dL11.8-15.4FMarietta Memorial HospitalKetones Auto test strip (U) [Mass/Vol]Ordered By: Alta Schmid on 24-82-7683Vxessvc (U) [Mass/Vol] NegativeNegativeThe [facility]vue HospitalLaboratory - UrinalysisOrdered By: Alta Schmid on 03-36-7793Dqoerlu casts LM Ql (Urine sed)None seen [LPF]0-8 The [facility] HospitalLeukocytes [#/volume] corrected for nucleated erythrocytes in Blood by Automated counOrdered By: Alta Schmid on 36-46-4677VUY corrected for nucl RBC Auto (Bld) [#/Vol]13.1 10*3/uL3.8-11.6FPomerene HospitalH Auto (RBC) [Entitic mass]Ordered By: Alta Schmid on 09-12-2023 MCH (RBC) [Entitic mass]30.3 pg24.7-34.3FMarietta Memorial HospitalMCHC Auto (RBC) [Mass/Vol]Ordered By: Alta Schmid on 60-26-5416UEAA (RBC) [Mass/Vol] 34.4 g/dL32.0-35.0The [facility] HospitalMCV Auto (RBC) [Entitic vol] Ordered By: Alta Schmid on 15-75-9552CST (RBC) [Entitic vol]88.2 jV93-321 The [facility] HospitalMagnesium [Mass/volume] in Serum or Plasma Ordered By: Alta Schmid on 32-42-0325Yqnlssprd [Mass/Vol]1.4 mg/dL1.9-2.7 The [facility] HospitalNitrite Test strip Ql (U)Ordered By: Alta Schmid on 47-12-2573Lmcxhit Ql (U)NegativeNegativeThe [facility]vue HospitalNo Panel InformationOrdered By: Alta Schmid on 48-15-4107Qdbunnoxr GFR (CKD-EPI)40.884 mL/MinThe [facility]vue HospitalPharmacy Creatinine Clearance (ChemN/[facility] Hospital LimaParathyrin.intact [Mass/volume] in Serum or PlasmaOrdered By: Alta Schmid on 09-12-2023 Parathyrin.intact [Mass/Vol]63.3 pg/fF09-58QorkdbjrvThe [facility] Hospital Phosphate [Mass/volume] in Serum or PlasmaOrdered By: Alta Schmid on 09-12-2023 Phosphate [Mass/Vol]3.6 mg/dL2.5-4.5FMarietta Memorial HospitalPlatelet mean volume Auto (Bld) [Entitic vol]Ordered By: Alta Schmid on 09-12-2023 Platelet mean volume (Bld) [Entitic vol]8.7 fL6.3-10.7FMarietta Memorial HospitalPlatelets Auto (Bld) [#/Vol]Ordered By: Alta Schmid on 55-33-7663Yrstxaaie (Bld) [#/Vol]263 10*3/wN496-049DljzujmngThe Bellevue HospitalPotassium [Moles/volume] in Serum or PlasmaOrdered By: Alta Fletcherr on 97-64-6747Ewixjvnuq [Moles/Vol]4.5 mmol/L3.5-5.1FMarietta Memorial HospitalProtein Auto test strip (U) [Mass/Vol]Ordered By: Alta Schmid on 78-93-5220Poxrshw (U) [Mass/Vol] 30 mg/dLNegativeThe [facility]vue HospitalProtein [Mass/volume] in Urine Ordered By: Alta Fletcherr on 52-60-2395Bysaozy (U) [Mass/Vol]47 mg/dL0-9The [facility] HospitalRBC Auto (Bld) [#/Vol]Ordered By: Alta Schmid on 47-09-0770PUS (Bld) [#/Vol]4.96 10*6/uL3.60-5.00[facility] Osteopathic Clinicerum or plasma anion gap determinationOrdered By: Alta Schmid on 64-04-6501Bynhm gap [Moles/Vol]12.5 mmol/L6.0-15.0[facility]opathic Clinicodium [Moles/volume] in Serum or PlasmaOrdered By: Alta Schmid on 37-85-1449Lvybcn [Moles/Vol]135 mmol/T303-082JrmrwmiexThe [facility] Hospital Specific gravity Auto test strip (U) [Rel density]Ordered By: Alta Schmid on 33-03-8588Ksphltzl gravity (U) [Rel density]1.0141.001-1.030M[facility] Osteopathic Clinicquamous epithelial cells detection in urine sediment by light microscopyOrdered By: Alta Schmid on 72-46-5502Tbmiebthvs cells.squamous LM Ql (Urine sed)1-2 [HPF]0-2FMarietta Memorial HospitalUrate [Mass/volume] in Serum or PlasmaOrdered By: Alta Schmid on 29-05-3162Pfvwu [Mass/Vol]7.9 mg/dL 2.3-6.6FMarietta Memorial HospitalUrea nitrogen [Mass/volume] in Serum or PlasmaOrdered By: Alta Schmid on 08-90-2640Emkp nitrogen [Mass/Vol]32 mg/dL7-25 The [facility] HospitalUrine bacteria detection by automated method Ordered By: Alta Schmid on 76-09-5489Djbgmcje Auto Ql (U)None seen [HPF]None SeenThe Bellevue HospitalUrine clarity by refractometry automated Ordered By: Alta Schmid on 26-34-7133Uofdlhm Refractometry automated (U)Clear ClearThe Bellevue HospitalUrine glucose measurement by automated test strip (mass/volume)Ordered By: Alta Schmid on 55-66-7474Eugnkye Auto test strip (U) [Mass/Vol]250 mg/dLNormalThe [facility]vue HospitalUrine hemoglobin detection by automated test stripOrdered By: Alta Schmid on 02-45-5177Vwjppqsnqo Auto test strip Ql (U)NegativeNegativeThe [facility]vue HospitalUrine leukocyte esterase detection by automated test stripOrdered By: Alta Schmid on 79-26-9016Lkjbkuujm esterase Auto test strip Ql (U)Negative NegativeThe Bellevue HospitalUrine protein/creatinine ratioOrdered By: Alta Schmid on 57-52-3469Wfawlmb/Creatinine (U) [Ratio]797 mg/g{Cre}0-200 The [facility] HospitalUrobilinogen Auto test strip (U) [Mass/Vol] Ordered By: Alta Schmid on 38-72-8401Lwkdqbbndusf (U) [Mass/Vol]Normal mg/dL NormalThe Bellevue HospitalVitamin D+Metabolites [Mass/volume] in Serum or PlasmaOrdered By: Alta Schmid on 24-62-6062Dqrdohi D+Metabolites [Mass/Vol]53.3 ng/kQ87-097QnsbyycowThe Bellevue HospitalComment on above: VITAMIN D STATUS 25(OH)VITAMIN D RANGE (ng/mL) Deficient <20 Insufficient 20 to <01Fmbutqitxg40 to 100Reference: Raven MF,Isai CLARK, Randa WALSH, et al. Evaluation,treatment, and prevention of vitamin D deficiency; an Endocrine Society clinical practice guideline. JCEM. 2010; 96(7):1911-30.pH Auto test strip (U)Ordered By: Alta Schmid on 43-77-6888cZ (U)5.5 [pH]5.0-9.0The [facility] HospitalAlbumin [Mass/volume] in Serum or Plasma by Bromocresol green (BCG) dye binding methoOrdered By: Alta Schmid on 31-40-7195Lftlfik BCG dye [Mass/Vol]4.0 g/dL3.5-5.7FMarietta Memorial HospitalAutomated erythrocytes count in urine sediment (number/area)Ordered By: Alta Schmid on 05-62-8649GUF Auto (Urine sed) [#/Area]None seen [HPF]0-4FMarietta Memorial HospitalAutomated leukocytes count in urine sediment (number/area)Ordered By: Alta Schmid on 28-23-5271TPW Auto (Urine sed) [#/Area]0-1 [HPF]0-4FMarietta Memorial HospitalBilirubin Test strip Ql (U)Ordered By: Alta Schmid on 20-31-8240Xifuzpevj Ql (U)NegativeNegativeThe [facility] Calcium [Mass/volume] in Serum or PlasmaOrdered By: Alta Schmid on 07-31-2023 Calcium [Mass/Vol]9.4 mg/dL8.6-10.3FMarietta Memorial HospitalCarbon dioxide, total [Moles/volume] in Serum or PlasmaOrdered By: Alta Schmid on 49-17-3866LQ9 [Moles/Vol]28.1 mmol/L21.0-31.0[facility] Chloride [Moles/volume] in Serum or PlasmaOrdered By: Alta Schmid on 07-31-2023 Chloride [Moles/Vol]103 mmol/J91-320UuonxxpykThe Bellevue HospitalColor Auto (U)Ordered By: Alta Schmid on 50-97-9141Zgdnq (U)YellowYellowThe Bellevue HospitalCreatinine [Mass/volume] in Serum or PlasmaOrdered By: Alta Schmid on 87-37-3618Lvgfyfzrdo [Mass/Vol]1.49 mg/dL0.60-1.20The [facility] HospitalCreatinine [Mass/volume] in UrineOrdered By: Alta Schmid on 07-31-2023 Creatinine (U) [Mass/Vol]64.0 mg/dLThe [facility]vue HospitalComment on above:No reference range establishedErythrocyte distribution width Auto (RBC) [Ratio]Ordered By: Alta Schmid on 40-61-7140Ximsjowoozk distribution width (RBC) [Ratio]15.4 %11.9-15.3FMarietta Memorial HospitalGlucose [Mass/volume] in Serum or PlasmaOrdered By: Alta Schmid on 44-26-4447Laegelu [Mass/Vol]235 mg/dL 70-100The [facility] HospitalComment on above:ADA recommended reference rangeRandom Glucose Reference Range is dependent on time and content of last meal. Glucose of more than 200 mg/dL in a nonstressed, ambulatory subject supports the diagnosisof Diabetes Mellitus.Hematocrit Auto (Bld) [Volume fraction]Ordered By: Alta Schmid on 70-53-3688Nmaxnbzymw (Bld) [Volume fraction]42.7 %34.0-46.4FMarietta Memorial HospitalHemoglobin [Mass/volume] in BloodOrdered By: Alta Schmid on 86-02-5011Rpvpxksrmn (Bld) [Mass/Vol]14.4 g/dL11.8-15.4FMarietta Memorial HospitalKetones Auto test strip (U) [Mass/Vol]Ordered By: Alta Schmid on 27-88-8225Dphhlbx (U) [Mass/Vol] NegativeNegativeThe Bellevue HospitalLaboratory - UrinalysisOrdered By: Alta Schmid on 33-04-4470Psyszvh casts LM Ql (Urine sed)0-8 [LPF]0-8 [facility] HospitalLeukocytes [#/volume] corrected for nucleated erythrocytes in Blood by Automated counOrdered By: Alta Schmid on 37-37-0335MZO corrected for nucl RBC Auto (Bld) [#/Vol]12.8 10*3/uL3.8-11.6FPomerene HospitalH Auto (RBC) [Entitic mass]Ordered By: Alta Schmid on 07-31-2023 MCH (RBC) [Entitic mass]29.9 pg24.7-34.3FPomerene HospitalHC Auto (RBC) [Mass/Vol]Ordered By: Alta Schmid on 74-22-8417NSJG (RBC) [Mass/Vol] 33.6 g/dL32.0-35.0[facility] HospitalV Auto (RBC) [Entitic vol] Ordered By: Alta Comerdir on 52-25-8854TZI (RBC) [Entitic vol]89.0 eC66-060 [facility] HospitalMagnesium [Mass/volume] in Serum or Plasma Ordered By: Alta Schmid on 21-45-7611Gxusirsxs [Mass/Vol]1.3 mg/dL1.9-2.7 [facility] HospitalNitrite Test strip Ql (U)Ordered By: Alta Schmid on 38-64-4627Zclnayl Ql (U)NegativeNegativeThe [facility]vue HospitalNo Panel InformationOrdered By: Alta Schmid on 59-61-2968Qjxatkvds GFR (CKD-EPI)38.264 mL/MinThe [facility]vue HospitalPharmacy Creatinine Clearance (Chem38.44The [facility] HospitalParathyrin.intact [Mass/volume] in Serum or PlasmaOrdered By: Alta Schmid on 07-31-2023 Parathyrin.intact [Mass/Vol]47.7 pg/oW78-36XdzkwpslzThe [facility] Hospital Phosphate [Mass/volume] in Serum or PlasmaOrdered By: Alta Comerdir on 07-31-2023 Phosphate [Mass/Vol]3.6 mg/dL2.5-4.5FMarietta Memorial HospitalPlatelet mean volume Auto (Bld) [Entitic vol]Ordered By: Alta Comerdir on 07-31-2023 Platelet mean volume (Bld) [Entitic vol]8.3 fL6.3-10.7FMarietta Memorial HospitalPlatelets Auto (Bld) [#/Vol]Ordered By: Alta Schmid on 01-87-7469Jdxhwxalm (Bld) [#/Vol]270 10*3/aB059-697WwrqoezdjThe Bellevue HospitalPotassium [Moles/volume] in Serum or PlasmaOrdered By: Alta Schmid on 60-34-0040Kgxmrleep [Moles/Vol]4.7 mmol/L3.5-5.1FMarietta Memorial HospitalProtein Auto test strip (U) [Mass/Vol]Ordered By: Alta Schmid on 24-10-3817Czrvfih (U) [Mass/Vol] NegativeNegativeThe [facility]vue HospitalProtein [Mass/volume] in Urine Ordered By: Alta Schmid on 28-02-7608Psgmijm (U) [Mass/Vol]16 mg/dL0-9The [facility] HospitalRBC Auto (Bld) [#/Vol]Ordered By: Alta Schmid on 97-38-4311YTJ (Bld) [#/Vol]4.80 10*6/uL3.60-5.00[facility] Clinicerum or plasma anion gap determinationOrdered By: Alta Schmid on 23-51-5146Aiafw gap [Moles/Vol]12.6 mmol/L6.0-15.0[facility] Clinicodium [Moles/volume] in Serum or PlasmaOrdered By: Alta Schmid on 72-33-2594Xkmjka [Moles/Vol]139 mmol/F971-983YvnberdimThe Bellevue Hospital Specific gravity Auto test strip (U) [Rel density]Ordered By: Alta Schmid on 76-65-4953Mdcdueco gravity (U) [Rel density]1.0121.001-1.030[facility] Osteopathic Clinicquamous epithelial cells detection in urine sediment by light microscopyOrdered By: Alta Schmid on 85-21-7816Qhebfabczi cells.squamous LM Ql (Urine sed)0-1 [HPF]0-2FMarietta Memorial HospitalUrate [Mass/volume] in Serum or PlasmaOrdered By: Alta Schmid on 66-84-8334Pikqb [Mass/Vol]9.9 mg/dL 2.3-6.6FMarietta Memorial HospitalUrea nitrogen [Mass/volume] in Serum or PlasmaOrdered By: Alta Schmid on 71-84-2880Rysg nitrogen [Mass/Vol]29 mg/dL7-25 [facility] HospitalUrine bacteria detection by automated method Ordered By: Alta Schmid on 45-98-8828Qviqiqha Auto Ql (U)None seenNone Seen [facility] HospitalUrine clarity by refractometry automatedOrdered By: Alta Schmid on 98-96-7631Wqakrgu Refractometry automated (U)ClearClear [facility] HospitalUrine glucose measurement by automated test strip (mass/volume)Ordered By: Alta Schmid on 12-74-8368Ssbbzxn Auto test strip (U) [Mass/Vol]Normal mg/dLNormalThe [facility]vue HospitalUrine hemoglobin detection by automated test stripOrdered By: Alta Schmid on 46-78-4823Tuyzpjmtkb Auto test strip Ql (U)NegativeNegativeThe Bellevue HospitalUrine leukocyte esterase detection by automated test stripOrdered By: Alta Schmid on 25-47-1712Rojhssobk esterase Auto test strip Ql (U)Negative NegativeThe Bellevue HospitalUrine protein/creatinine ratioOrdered By: Alta Schmid on 64-09-3264Esqjung/Creatinine (U) [Ratio]250 mg/g{Cre}0-200 The [facility] HospitalUrobilinogen Auto test strip (U) [Mass/Vol] Ordered By: Alta Schmid on 48-59-9707Oheekkkxzuds (U) [Mass/Vol]Normal mg/dL NormalThe Bellevue HospitalVitamin D+Metabolites [Mass/volume] in Serum or PlasmaOrdered By: Alta Schmid on 50-93-1337Mayimgp D+Metabolites [Mass/Vol]41.8 ng/yN51-818WiljglasxThe Bellevue HospitalComment on above: VITAMIN D STATUS 25(OH)VITAMIN D RANGE (ng/mL) Deficient <20 Insufficient 20 to <06Hnemzaiinz02 to 100Reference: Raven JEAN,Isai CLARK, Randa WALSH, et al. Evaluation,treatment, and prevention of vitamin D deficiency; an Endocrine Society clinical practice guideline. JCEM. 2010; 96(7):1911-30.pH Auto test strip (U)Ordered By: Alta Schmid on 66-26-5239oX (U)6.0 [pH]5.0-9.0The [facility] HospitalBasophils Auto (Bld) [#/Vol]Ordered By: Yakelin Staley on 03-90-1992Rogsswznp (Bld) [#/Vol]0.1 10*3/uL0.0-0.2FMarietta Memorial HospitalBasophils/100 WBC Auto (Bld)Ordered By: Yakelin Staley on 06-22-2023 Basophils/100 WBC (Bld)0.8 %.The [facility] HospitalEosinophils Auto (Bld) [#/Vol]Ordered By: Yakelin Staley on 47-68-7222Btvcfuhagus (Bld) [#/Vol]0.2 10*3/uL0.0-0.45The [facility] HospitalEosinophils/100 WBC Auto (Bld) Ordered By: Yakelin Staley on 19-39-6246Vadwmqlqpom/100 WBC (Bld)1.7 %.The [facility] HospitalErythrocyte distribution width Auto (RBC) [Ratio]Ordered By: Yakelin Staley on 78-73-1932Whjtwvapzec distribution width (RBC) [Ratio]15.0 %11.9-15.3FMarietta Memorial HospitalHematocrit Auto (Bld) [Volume fraction]Ordered By: Yakelin Staley on 97-50-2124Egmplclyuj (Bld) [Volume fraction]42.7 %34.0-46.4FMarietta Memorial HospitalHemoglobin [Mass/volume] in BloodOrdered By: Yakelin Staley on 96-81-8754Degovqtkil (Bld) [Mass/Vol]14.5 g/dL11.8-15.4FMarietta Memorial HospitalLeukocytes [#/volume] corrected for nucleated erythrocytes in Blood by Automated coun Ordered By: Yakelin Staley on 93-41-9432VLE corrected for nucl RBC Auto (Bld) [#/Vol]14.3 10*3/uL3.8-11.6FMarietta Memorial HospitalLymphocytes Auto (Bld) [#/Vol]Ordered By: Yakelin Staley on 70-24-1983Qdxltmoexyj (Bld) [#/Vol]2.6 10*3/uL1.00-4.8The [facility] HospitalLymphocytes/100 WBC Auto (Bld) Ordered By: Yakelin Rebeka on 96-00-6775Emmfumqrozn/100 WBC (Bld)18.0 %.[facility] HospitalH Auto (RBC) [Entitic mass]Ordered By: Yakelin Rebeka on 74-16-9814CVT (RBC) [Entitic mass]30.3 pg24.7-34.3FMarietta Memorial HospitalMCHC Auto (RBC) [Mass/Vol]Ordered By: Yakelin Rebeka on 48-46-2846ANHH (RBC) [Mass/Vol]33.9 g/dL32.0-35.0The [facility] HospitalMCV Auto (RBC) [Entitic vol]Ordered By: Yakelin Staley on 62-78-4595JXO (RBC) [Entitic vol]89.4 vV13-599JnaavoajuThe Bellevue HospitalMonocytes Auto (Bld) [#/Vol] Ordered By: Yakelin Rebeka on 21-52-2139Ukyftelfw (Bld) [#/Vol]0.7 10*3/uL0.0-0.8 [facility] HospitalMonocytes/100 WBC Auto (Bld)Ordered By: Yakelin Staley on 93-66-4005Xcxpseccq/100 WBC (Bld)5.2 %.The [facility] HospitalNeutrophils Auto (Bld) [#/Vol]Ordered By: Yakelin Staley on 06-22-2023 Neutrophils (Bld) [#/Vol]10.6 10*3/uL1.8-7.7FMarietta Memorial Hospital Neutrophils/100 WBC Auto (Bld)Ordered By: Yakelin Staley on 06-22-2023 Neutrophils/100 WBC (Bld)74.3 %.The [facility] HospitalNucleated erythrocytes [Presence] in Blood by Automated countOrdered By: Yakelin Staley on 22-04-7913Ckoylugdf RBC Auto Ql (Bld)0.1 /100{WBC}0-0.5Fire[facility] Medical CenterPlatelet mean volume Auto (Bld) [Entitic vol]Ordered By: Yakelin Rebeka on 56-23-7078Enlwjban mean volume (Bld) [Entitic vol]8.3 fL6.3-10.7 The [facility] HospitalPlatelets Auto (Bld) [#/Vol]Ordered By: Yakelin Canalesevan on 06-29-4583Ytdnianrb (Bld) [#/Vol]262 10*3/aE524-432GbobmgiovThe Bellevue HospitalRBC Auto (Bld) [#/Vol]Ordered By: Yakelin Rebeka on 26-50-2677DQN (Bld) [#/Vol]4.77 10*6/uL3.60-5.00The [facility] HospitalWBC Auto (Bld) [#/Vol]Ordered By: Yakelin Rebeka on 56-42-7879PSB (Bld) [#/Vol]14.3 10*3/uL3.8-11.6FMarietta Memorial HospitalAlbumin [Mass/volume] in Serum or Plasma by Bromocresol green (BCG) dye binding metho Ordered By: Alta Schmid on 60-51-7236Wmipgex BCG dye [Mass/Vol]4.1 g/dL3.5-5.7 [facility] HospitalAutomated erythrocytes count in urine sediment (number/area)Ordered By: Alta Schmid on 61-81-0388FPW Auto (Urine sed) [#/Area] 0-1 [HPF]0-4FMarietta Memorial HospitalAutomated leukocytes count in urine sediment (number/area)Ordered By: Alta Schmid on 62-09-7426OHS Auto (Urine sed) [#/Area]5-9 [HPF]0-4FMarietta Memorial HospitalBilirubin Test strip Ql (U)Ordered By: Alta Schmid on 46-69-4675Kanrxetuf Ql (U)NegativeNegative [facility] HospitalCalcium [Mass/volume] in Serum or PlasmaOrdered By: Alta Schmid on 13-02-8043Spbtlhh [Mass/Vol]9.2 mg/dL8.6-10.3FMarietta Memorial HospitalCarbon dioxide, total [Moles/volume] in Serum or Plasma Ordered By: Alta Schmid on 04-20-2342GL2 [Moles/Vol]25.4 mmol/L21.0-31.0 [facility] HospitalChloride [Moles/volume] in Serum or Plasma Ordered By: Alta Schmid on 22-61-2210Ucpdycey [Moles/Vol]104 mmol/L98-107 [facility] HospitalColor Auto (U)Ordered By: Alta Schmid on 95-34-1138Hddlx (U)YellowYellowThe Bellevue HospitalCreatinine [Mass/volume] in Serum or PlasmaOrdered By: Alta Schmid on 78-40-8385Uixsemkrti [Mass/Vol]1.59 mg/dL0.60-1.20The [facility] HospitalCreatinine [Mass/volume] in UrineOrdered By: Alta Schmid on 67-07-2307Uccdyqcitt (U) [Mass/Vol]100.0 mg/dL11.0-20.0The [facility] HospitalErythrocyte distribution width Auto (RBC) [Ratio]Ordered By: Alta Schmid on 03-04-2023 Erythrocyte distribution width (RBC) [Ratio]14.8 %11.9-15.3FMarietta Memorial HospitalGlucose [Mass/volume] in Serum or PlasmaOrdered By: Alta Schmid on 13-00-7193Ikxpmwv [Mass/Vol]232 mg/vY04-154QfbesnnyjThe [facility] Hospital Comment on above:ADA recommended reference rangeRandom Glucose Reference Range is dependent on time and content of last meal. Glucose of more than 200 mg/dL in a nonstressed, ambulatory subject supports the diagnosisof Diabetes Mellitus. Hematocrit Auto (Bld) [Volume fraction]Ordered By: Alta Schmid on 03-04-2023 Hematocrit (Bld) [Volume fraction]42.6 %34.0-46.4FMarietta Memorial HospitalHemoglobin [Mass/volume] in BloodOrdered By: Alta Schmid on 03-04-2023 Hemoglobin (Bld) [Mass/Vol]14.5 g/dL11.8-15.4FMarietta Memorial Hospital Ketones Auto test strip (U) [Mass/Vol]Ordered By: Alta Schmid on 03-04-2023 Ketones (U) [Mass/Vol]NegativeNegativeThe [facility] Hospital Laboratory - UrinalysisOrdered By: Alta Schmid on 24-33-1842Jpgvnwt casts LM Ql (Urine sed)0-8 [LPF]0-8The [facility] HospitalLeukocytes [#/volume] corrected for nucleated erythrocytes in Blood by Automated counOrdered By: Alta Schmid on 35-71-2582FIK corrected for nucl RBC Auto (Bld) [#/Vol]16.2 10*3/uL 3.8-11.6FKindred Healthcare Auto (RBC) [Entitic mass]Ordered By: Alta Schmid on 79-70-2584NAW (RBC) [Entitic mass]31.1 pg24.7-34.3FPomerene HospitalHC Auto (RBC) [Mass/Vol]Ordered By: Alta Schmid on 39-29-4142ROVV (RBC) [Mass/Vol]34.0 g/dL32.0-35.0The [facility] HospitalMCV Auto (RBC) [Entitic vol]Ordered By: Alta Schmid on 40-58-7464PLD (RBC) [Entitic vol]91.6 oW21-886LahmjgryiThe Bellevue HospitalMagnesium [Mass/volume] in Serum or PlasmaOrdered By: Alta Schmid on 50-50-9122Opxlgxsxl [Mass/Vol]1.4 mg/dL1.9-2.7FMarietta Memorial HospitalNitrite Test strip Ql (U)Ordered By: Alta Schmid on 29-96-9113Jeqriqm Ql (U)NegativeNegAdena Pike Medical CenterNo Panel InformationOrdered By: Alta Schmid on 18-18-3570Oibhjzbbq GFR (CKD-EPI)35.395 mL/MinThe [facility] Creat[facility] Clearance (ChemN/[facility] Parathyrin.intact [Mass/volume] in Serum or PlasmaOrdered By: Alta Schmid on 05-54-6173Zjtrikrvie.intact [Mass/Vol]87.0 pg/qW68-02VcvncjxcvThe Bellevue HospitalPhosphate [Mass/volume] in Serum or PlasmaOrdered By: Alta Schmid on 84-31-9654Wrhvhcgdy [Mass/Vol]4.0 mg/dL3.7-7.2FMarietta Memorial Hospital Platelet mean volume Auto (Bld) [Entitic vol]Ordered By: Alta Schmid on 76-71-9829Mszflybi mean volume (Bld) [Entitic vol]8.5 fL6.3-10.7FMarietta Memorial HospitalPlatelets Auto (Bld) [#/Vol]Ordered By: Alta Schmid on 63-28-8340Thiluibxf (Bld) [#/Vol]327 10*3/gR434-455UwpwzmqiuThe Bellevue HospitalPotassium [Moles/volume] in Serum or PlasmaOrdered By: Alta Schmid on 26-61-2511Rydzpgknc [Moles/Vol]4.9 mmol/L3.5-5.1FMarietta Memorial HospitalProtein Auto test strip (U) [Mass/Vol]Ordered By: Alta Schmid on 58-28-2393Spojtnh (U) [Mass/Vol]NegativeNegativeThe [facility] HospitalProtein [Mass/volume] in UrineOrdered By: Alta Schmid on 74-12-5918Atoydue (U) [Mass/Vol]14 mg/dL0-9The [facility] HospitalRBC Auto (Bld) [#/Vol]Ordered By: Alta Schmid on 32-19-9400GIH (Bld) [#/Vol]4.65 10*6/uL 3.60-5.00[facility] Osteopathic Clinicerum or plasma anion gap determinationOrdered By: Alta Schmid on 41-91-4583Wfykf gap [Moles/Vol]13.5 mmol/L6.0-15.0[facility] Clinicodium [Moles/volume] in Serum or PlasmaOrdered By: Alta Schmid on 17-92-6214Qfsvbj [Moles/Vol]138 mmol/B648-829 [facility] Clinicpecific gravity Auto test strip (U) [Rel density]Ordered By: Alta Schmid on 26-50-5480Raatrupx gravity (U) [Rel density] 1.0141.001-1.030M[facility] Osteopathic Clinicquamous epithelial cells detection in urine sediment by light microscopyOrdered By: Alta Schmid on 05-87-9081Kvnkariomc cells.squamous LM Ql (Urine sed)5-9 [HPF]0-2FMarietta Memorial HospitalUrate [Mass/volume] in Serum or PlasmaOrdered By: Alta Schmid on 27-53-0300Ofnbp [Mass/Vol]10.7 mg/dL2.3-6.6FMarietta Memorial HospitalUrea nitrogen [Mass/volume] in Serum or PlasmaOrdered By: Alta Schmid on 32-13-0242Sseh nitrogen [Mass/Vol]42 mg/dL7-25[facility] Urine bacteria detection by automated methodOrdered By: Alta Schmid on 25-80-5432Aioffaqf Auto Ql (U)None seenNone SeenThe [facility] HospitalUrine clarity by refractometry automatedOrdered By: Alta Schmid on 21-09-3751Kpqswzm Refractometry automated (U)ClearCleMercy Health St. Charles HospitalUrine culture routineOrdered By: Alta Schmid on 46-95-8019Fqzrxixh identified Cx Nom (U)2 DaysThe [facility]vue HospitalUrine glucose measurement by automated test strip (mass/volume)Ordered By: Alta Schmid on 70-61-3982Nluzrvy Auto test strip (U) [Mass/Vol]Normal mg/dLNormalThe [facility] HospitalUrine hemoglobin detection by automated test stripOrdered By: Alta Schmid on 81-17-8358Gmdcvxxgzj Auto test strip Ql (U)NegativeNegative The [facility] HospitalUrine leukocyte esterase detection by automated test stripOrdered By: Alta Schmid on 44-07-7798Kdcksujvk esterase Auto test strip Ql (U)1+NegativeThe [facility]vue HospitalUrine protein/creatinine ratioOrdered By: Alta Schmid on 68-20-9935Bzdlcwa/Creatinine (U) [Ratio]140 mg/g{Cre}0-200The [facility] HospitalUrobilinogen Auto test strip (U) [Mass/Vol]Ordered By: Alta Schmid on 38-20-3535Eacyxcqjpjph (U) [Mass/Vol]Normal mg/dLNormalThe [facility] HospitalVitamin D+Metabolites [Mass/volume] in Serum or PlasmaOrdered By: Alta Schmid on 18-72-2475Chudnrm D+Metabolites [Mass/Vol]41.9 ng/wG81-722OvpjyelimThe Bellevue HospitalComment on above: VITAMIN D STATUS 25(OH)VITAMIN D RANGE (ng/mL) Deficient <20 Insufficient 20 to <02Jzgikqjvlb42 to 100Reference: Raven MF,Isai CLARK, Randa WALSH, et al. Evaluation,treatment, and prevention of vitamin D deficiency; an Endocrine Society clinical practice guideline. JCEM. 2010; 96(7):1911-30.pH Auto test strip (U)Ordered By: Alta Schmid on 44-66-5899rX (U)5.5 [pH]5.0-9.0The [facility] HospitalOffice Visit (Cardiology)on 43-50-3841Dzkotk-up visit Diagnoses/Problems Assessed Hypertension (401.9) (I10) Current smoker (305.1) (F17.200) 1/2 pack daily. Diabetes (250.00) (E11.9) Class 1 obesity with body mass index (BMI) of 32.0 to 32.9 in adult (278.00,V85.32) (E66.9,Z68.32) Orders Class 1 obesity with body mass index (BMI) of 32.0 to 32.9 in adult Healthy Weight Tips; Status:Complete; Done: 24Vnp6420 Some eating tips that can help you lose weight.; Status:Complete; Done: 11Grm0596 SocHx: Current smoker Tobacco Use Screening; Status:Complete; Done: 58Euy4014 You need to stop smoking. Though it is not easy, more than half of all adult smokers have quit. We encourage you to write down all the reasons you should quit smoking and set a quit date for yourself. Ask us how we can help. You may also call 4-828-EAKO-NOW for free resources and assistance.; Status:Complete; Done: 85Txr9183 Patient Instructions Please bring all medicines, vitamins, [...] DIRECTED. Levemir 100 UNIT/ML Subcutaneous Solutionas directed Lisinopril-hydroCHLOROthiazide 10-12.5 MG Oral TabletTAKE 1 TABLET DAILY. [...] Recorded: 08Dec2022 08:41AM Heart Rate66, R Radial Hpmdhgqa598, RUE, Sitting Gijiqzgsr63, RUE, Sitting Height5 ft 3 in Kgvkhx348 lb BMI Uygrswaxki31.95 kg/m2 BSA Calculated1.88 Tobacco Usea) Yes Patient [...] bruit , JVP w (more content not included)...NormalUH TouchworksTobacco Screening.on 16-24-6647Eeyi risk assessmenta) No falls within the last [facility]Pe[facility] [employer] 250 DO Work Phone: Tobacco use status CPHSa) YesPeaceHealth St. [facility] [employer] 250 DO Work Phone: Tobacco Screening.YesPeaceHealth [facility] [employer] 250 DO Work Phone: CBC AUTO DIFFon 55-95-4251TSPW #0.1 103/ulNormal 0.0-0.1The [facility] HospitalComment on above:Performed By: #### CBC #### [facility] [address] [address] [address] Briana DillardBasophils/100 WBC (Bld)0.8 %Normal0.2-2.0[facility] Comment on above:Performed By: #### CBC #### [facility] [address] [address] [address] Briana Butler #0.3 103/ulNormal0.0-0.7The [facility] HospitalComment on above: Performed By: #### CBC #### [facility] [address] [place] [address] Dr. Briana Hayosinophils/100 WBC (Bld)2.5 %Normal0.9-7.0[facility] Comment on above:Performed By: #### CBC #### [facility] [address] [place] [address] Dr. Briana Hayrythrocyte distribution width (RBC) [Ratio]14.8 %Thqvlr03.0-15.0 [facility] HospitalComment on above:Performed By: #### CBC #### [facility] [address] [place] [address] Dr. Briana DillardHematocrit (Bld) [Volume fraction]43.8 %Pccwxc34.0-48.0[facility] HospitalComment on above:Performed By: #### CBC #### [facility] [address] [place] [address] Dr. Briana DillardHemoglobin (Bld) [Mass/Vol]14.5 g/wERcwgrh28.0-16.0[facility] HospitalComment on above:Performed By: #### CBC #### [facility] [address] [place] [address] Dr. Briana Velasquez #0.13 10e3/ulCritically high0.00-0.03[facility] Comment on above:Performed By: #### CBC #### [facility] [address] [place] [address] Dr. Briana Velasquez %1.0 %Critically high0.0-0.5The [facility] HospitalComment on above:Performed By: #### CBC #### [facility] [address] [address] [address] Briana Rob #2.5 103/ulNormal1.2-3.8The [facility] HospitalComselect specialty hospital-[facility] on above:Performed By: #### CBC #### [facility] [address] [place] [address] Dr. Briana Griffithhocytes/100 WBC (Bld)19.1 %Critically low20.5-60.0The [facility] HospitalComment on above:Performed By: #### CBC #### [facility] [address] [place] [address] Dr. Briana Driscoll DIFF REQNONormalThe [facility] HospitalComment on above: Performed By: #### CBC #### [facility] [address] [place] [address] Dr. rBiana Bailey (RBC) [Entitic mass]30.8 qtWvisre53.7-34.0The [facility] HospitalComment on above:Performed By: #### CBC #### [facility] [address] [place] [address] Dr. Briana Kenney (RBC) [Mass/Vol]33.1 g/gFWedwaj13.9-35.2The [facility] on above:Performed By: #### CBC #### [facility] [address] [place] [address] Dr. Briana Kenney (RBC) [Entitic vol]93.0 pNZokrmf08.0-99.0The [facility] HospitalComment on above:Performed By: #### CBC #### [facility] [address] [place] [address] Dr. Briana Holt #0.7 103/ulNormal0.3-0.8The [facility] on above:Performed By: #### CBC #### [facility] [address] [place] [address] Dr. Briana Antoineocytes/100 WBC (Bld)5.7 %Normal1.7-12.0[facility] Comment on above:Performed By: #### CBC #### [facility] [address] [place] [address] Dr. Briana Angel #9.2 103/ulCritically high1.4-6.5[facility] Comment on above:Performed By: #### CBC #### [facility] [address] [place] [address] Dr. Briana Montesutrophils/100 WBC (Bld)70.9 %Hzgmzq44.0-75.0The [facility] HospitalComment on above:Performed By: #### CBC #### [facility] [address] [place] [address] Dr. Briana Zuñiga mean volume (Bld) [Entitic vol]10.4 fLNormal9.5-13.5The [facility] HospitalComment on above:Performed By: #### CBC #### [facility] [address] [place] [address] Dr. Briana DillardPLT262 103/kwBmvxfb800-254Ury [facility] HospitalComment on above: Performed By: #### CBC #### [facility] [address] [place] [address] Dr. Briana DillardRBC4.71 106/ulNormal4.20-5.40The [facility] HospitalComment on above:Performed By: #### CBC #### [facility] [address] [place] [address] Dr. Briana DillardWBC13.0 103/ulCritically high4.0-11.0The [facility] HospitalComment on above:Performed By: #### CBC #### [facility] [address] [place] [address] Dr. Briana TurpinRECT LDLon 05-00-5894Jkoolwuestf in LDL [Mass/Vol]90 mg/dL NormalThe [facility] HospitalComment on above:Performed By: #### CMP, CMADM, BNP #### [facility] [address] [place] [address] Dr. Briana DillardDLDL NORMALSEE [facility] HospitalComselect [facility] on above: Result Comment: <100 mg/dl OPTIMAL 100 - 129 mg/dl NEAR OR ABOVE OPTIMAL 130 - 159 mg/dl BORDERLINE HIGH 160 - 189 mg/dl HIGH >190 mg/dl VERY HIGHPerformed By: #### CMP, CMADM, BNP #### [facility] [address] [place] [address] Dr. Briana DillardGLYCOHEMOGLOBIN A1Con 23-84-1538CNV RECOMMENDATIONSEE BELOWVeterans Health AdministrationComselect specialty hospital-[facility] on above:Result Comment: ADA RECOMMENDED LIMIT 4.0 - 6.0 ADA THERAPEUTIC TARGET < 7.0 ACTION SUGGESTED > 7.0Performed By: #### CMP, CMADM, BNP #### [facility] [address] [place] [address] Dr. Briana DillardGlucose [Mass/Vol]229 mg/dLChildren's Hospital of ColumbusComselect specialty hospital-[facility] on above:Performed By: #### CMP, CMADM, BNP #### [facility] [address] [place] [address] Dr. Briana DillardHbA1c (Bld) [Mass fraction]9.6 %Critically high4.5-6.2[facility] on above:Performed By: #### CMP, CMADM, BNP #### [facility] [address] [place] [address] Dr. Briana DillardLIPID PROFILEon 90-14-8120RFLR-HDL RATIO NORMSEE [facility] HospitalComselect specialty hospital-[facility] on above:Result Comment: 3.3 - 4.4 LOW RISK 4.4 - 7.1 AVERAGE RISK 7.1 - 11.0 MODERATE RISK >11.0 HIGH RISKPerformed By: #### CMP, CMADM, BNP #### [facility] [address] [place] [address] Dr. Briana DillardCholesterol [Mass/Vol]219 mg/dLCritically high<=200The [facility] on above:Performed By: #### CMP, CMADM, BNP #### [facility] [address] [place] [address] Dr. Briana DillardCholesterol in HDL [Mass/Vol]32 mg/dLCritically rkk00-32Wwb City Hospitalment on above:Performed By: #### CMP, CMADM, BNP #### [facility] [address] [place] [address] Dr. Briana Lindsay.total/Cholesterol in HDL [Mass ratio]6.8 {ratio} NormalCorey HospitalComselect specialty hospital-[facility] on above:Performed By: #### CMP, CMADM, BNP #### [facility] [address] [address] [address] Briana Triana NORMAL> or = 60 mg/dl - LOW CARDIOVASCULAR RISK <40 mg/dl - HIGH CARDIOVASCULAR RISKChildren's Hospital of ColumbusComment on above:Performed By: #### CMP, CMADM, BNP #### [facility] [address] [place] [address] Dr. Briana Bennett CALC NORMALSEE BELOWChildren's Hospital of ColumbusComment on above:Result Comment: <100 mg/dl OPTIMAL 100 - 129 mg/dl NEAR OR ABOVE OPTIMAL 130 - 159 mg/dl BORDERLINE HIGH 160 - 189 mg/dl HIGH >190 mg/dl VERY HIGH Performed By: #### CMP, CMADM, BNP #### [facility] [address] [place] [address] Dr. Briana DillardTriglyceride [Mass/Vol]585 mg/dLCritically high<=150The [facility] HospitalComselect specialty hospital-[facility] on above:Performed By: #### CMP, CMADM, BNP #### [facility] [address] [place] [address] Dr. Briana BernardLDL ETPZ803.0 mg/dLNoCleveland Clinic Hillcrest HospitalComselect specialty hospital-[facility] on above: Performed By: #### CMP, CMADM, BNP #### [facility] [address] [place] [address] Dr. Briana Arrieta 14(COMP METB)on 62-86-3902Dnhwpqb [Mass/Vol]3.6 g/dLNormal 3.4-5.0[facility] Orthopedic Centerment on above:Performed By: #### LIPID, CMP, DLDL #### [facility] [address] [address] [address] Briana DillardAlbumin/Globulin [Mass ratio]0.9 {ratio}NormalThe [facility] HospitalComment on above:Performed By: #### LIPID, CMP, DLDL #### [facility] [address] [address] [address] Briana LeviP [Catalytic activity/Vol]117 U/LCritically yaki72-139Azg [facility] HospitalComment on above:Performed By: #### LIPID, CMP, DLDL #### [facility] [address] [address] [address] Briana LeviT [Catalytic activity/Vol]42 U/UQuhiau71-52Hzv [facility] HospitalComment on above:Performed By: #### LIPID, CMP, DLDL #### [facility] [address] [place] [address] Dr. Briana DillardAnion gap [Moles/Vol]15.4 mmol/LNormalThe [facility] Comment on above:Performed By: #### LIPID, CMP, DLDL #### [facility] [address] [place] [address] Dr. Briana DillardAST [Catalytic activity/Vol]29 U/TIkrybr60-59Uhe [facility] HospitalComment on above:Performed By: #### LIPID, CMP, DLDL #### [facility] [address] [place] [address] Dr. Briana DillardBilirubin [Mass/Vol]0.4 mg/dLNormal0.2-1.0[facility] Comment on above:Performed By: #### LIPID, CMP, DLDL #### [facility] [address] [place] [address] Dr. Briana DillardCalcium [Mass/Vol]10.2 mg/dLCritically high8.5-10.1The [facility] HospitalComment on above:Performed By: #### LIPID, CMP, DLDL #### [facility] [address] [place] [address] Dr. Briana DillardChloride [Moles/Vol]100 mmol/MJstnwt05-019Kpp [facility] Comment on above:Performed By: #### LIPID, CMP, DLDL #### [facility] [address] [address] [address] Briana DillardCO2 [Moles/Vol]27.3 mmol/WOwtyip18.0-32.0[facility] Comment on above:Performed By: #### LIPID, CMP, DLDL #### [facility] [address] [address] [address] Briana DillardCreatinine [Mass/Vol]1.40 mg/dLCritically high0.55-1.02[facility] HospitalComment on above:Performed By: #### LIPID, CMP, DLDL #### [facility] [address] [place] [address] Dr. Briana HayGFR-AF TECKCUML48 mL/min/1.14q2Txpptwjvlw low>=60The [facility] HospitalComment on above:Performed By: #### LIPID, CMP, DLDL #### [facility] [address] [place] [address] Dr. Briana HayGFR-NON AF KJOCODIQ26 mL/min/1.68q5Zrcswxczef low>=60The [facility] HospitalComment on above:Performed By: #### LIPID, CMP, DLDL #### [facility] [address] [place] [address] Dr. Briana DillardGlobulin (S) [Mass/Vol]3.9 g/dLNormalThe Galion HospitalComment on above:Performed By: #### LIPID, CMP, DLDL #### [facility] [address] [place] [address] Dr. Briana DillardGlucose [Mass/Vol]295 mg/dLCritically rzvd95-341Ogj [facility] HospitalComment on above:Performed By: #### LIPID, CMP, DLDL #### [facility] [address] [place] [address] Dr. Briana DillardPotassium [Moles/Vol]4.7 mmol/LNormal3.5-5.1[facility] Comment on above:Performed By: #### LIPID, CMP, DLDL #### [facility] [address] [address] [address] Briana DillardProtein [Mass/Vol]7.5 g/dLNormal6.4-8.2[facility] Comment on above:Performed By: #### LIPID, CMP, DLDL #### [facility] [address] [address] [address] Briana Lazarodium [Moles/Vol]138 mmol/PKpsenh329-373Odm [facility] Comment on above:Performed By: #### LIPID, CMP, DLDL #### [facility] [address] [address] [address] Briana Ulloa nitrogen [Mass/Vol]34.0 mg/dLCritically high7.0-18.0The [facility] HospitalComment on above:Performed By: #### LIPID, CMP, DLDL #### [facility] [address] [place] [address] Dr. Briana Ulloa nitrogen/Creatinine [Mass ratio]24.3 mg/mgNormalThe [facility] HospitalComment on above:Performed By: #### LIPID, CMP, DLDL #### [facility] [address] [address] [address] Briana Llanes RANDOM W/MICROSCOPICon [id number]RKS SEENThe [facility] HospitalComment on above:Performed By: #### CMP, CMADM, BNP #### [facility] [address] [address] [address] Briana Elizabethirubin Ql (U)NegativeNormalNEGATIVECorey Hospital Comment on above:Performed By: #### CMP, CMADM, BNP #### [facility] [address] [place] [address] Dr. Braina Delgado SEENNormalNONE SEENCorey HospitalComment on above:Performed By: #### CMP, CMADM, BNP #### [facility] [address] [address] [address] Briana Perezarity (U)CLEARNormalCLEARThe [facility] HospitalComment on above: Performed By: #### CMP, CMADM, BNP #### [facility] [address] [address] [address] Briana Mello (U)LT. YELLOWNormalYELLOWSelect Medical [facility]ty [facility] on above:Performed By: #### CMP, CMADM, BNP #### [facility] [address] [address] [address] Briana DillardCrystals LM Nom (Urine sed)NONE SEENNormalNONE SEENThe [facility] HospitalComment on above:Performed By: #### CMP, CMADM, BNP #### [facility] [address] [address] [address] Warren ChangEpithelial cells LM Ql (Urine sed)MANYAbnormalNONE SEEN /RAREThe [facility] on above:Performed By: #### CMP, CMADM, BNP #### [facility] [address] [address] [address] Briana DillardGlucose Ql (U)NegativeNormalNEGATIVESelect Medical Specialty [facility] [place] on above:Performed By: #### CMP, CMADM, BNP #### [facility] [address] [address] [address] Briana DillardHemoglobin Ql (U)NegativeNormalNEGATIVEMetrohealth [facility] on above:Performed By: #### CMP, CMADM, BNP #### [facility] [address] [address] [address] Briana DillardKetones Ql (U)NegativeNormalNEGATIVESelect Medical [facility]ty [facility] on above:Performed By: #### CMP, CMADM, BNP #### [facility] [address] [address] [address] Briana DillardLEUKOCYTESTRACEAbnormalNEGATIVECorey HospitalComselect specialty hospital-[facility] on above:Performed By: #### CMP, CMADM, BNP #### [facility] [address] [address] [address] Briana DillardMUCOUSNONE SEENNormalNONE SEENCorey HospitalComment on above:Performed By: #### CMP, CMADM, BNP #### [facility] [address] [address] [address] Briana Fuller Ql (U)NegativeNormalNEGATIVEThe City Hospitalment on above:Performed By: #### CMP, CMADM, BNP #### [facility] [address] [place] [address] Dr. Briana DillardpH (U)6.0 [pH]Normal5-9The [facility] on above: Performed By: #### CMP, CMADM, BNP #### [facility] [address] [place] [address] Dr. Briana DillardBiyakNUU0-1Bdenvp1-2Unq City Hospitalment on above:Performed By: #### CMP, CMADM, BNP #### [facility] [address] [place] [address] Dr. Briana DillardSPEC GRAVITY1.424Uzjubd0.005-<=1.025The [facility] on above:Performed By: #### CMP, CMADM, BNP #### [facility] [address] [place] [address] Dr. Briana Llanes PROTEINTRACENormalNEGATIVE/ TRACEThe [facility] HospitalComment on above:Performed By: #### CMP, CMADM, BNP #### [facility] [address] [place] [address] Dr. Briana Fajardobilandrea Qn (U)0.2 {Samuel'U}/dLNormal0.2 - 1.0The [facility] on above:Performed By: #### CMP, CMADM, BNP #### [facility] [address] [place] [address] Dr. Briana DillardWBC2-5AbnormalNONE SEENThe [facility] HospitalComment on above: Performed By: #### CMP, CMADM, BNP #### [facility] [address] [place] [address] Dr. Briana Martinez T PROTEIN CREAT RATIOon 99-12-4866Kdvlzeo (U) [Mass/Vol] 30.3 mg/dLCritically high<=12.0The [facility] on above:Performed By: #### CMP, CMADM, BNP #### [facility] [address] [address] [address] Briana Cueva PROT CREAT RAT0.80NormAvita Health System [facility] HospitalComment on above: Performed By: #### CMP, CMADM, BNP #### [facility] [address] [address] [address] Briana Martinez CREAT38.11 mg/xXQgzmxe19.00-300.00[facility] Comment on above:Performed By: #### CMP, CMADM, BNP #### [facility] [address] [address] [address] Briana DillardWESTBY OF [facility] GLUCOSEon 15-52-3627Hdedrmm [Mass/Vol]296 mg/dL Critically lhwb88-763GjhSelect Medical Specialty Hospital - [facility] on above:Performed By: #### CMP, CMADM, BNP #### [facility] [address] [address] [address] [facility] DillardHAMILTON [facility] GLUCOSEon 44-10-0343Rbtanab [Mass/Vol]312 mg/dL Critically lnrj76-490UjtSelect Medical Specialty Hospital - [place] on above:Performed By: #### CBC #### [facility] [address] [address] [address] Briana DillardGLYCOHEMOGLOBIN A1Con 26-07-2787TNY RECOMMENDATIONSEE BELOWNormal The [facility] HospitalComselect specialty hospital-[facility] on above:Result Comment: ADA RECOMMENDED LIMIT 4.0 - 6.0 ADA THERAPEUTIC TARGET < 7.0 ACTION SUGGESTED > 7.0Performed By: #### A1C #### [facility] [address] [address] [address] Briana DillardGlucose [Mass/Vol]223 mg/dLNoCleveland Clinic Hillcrest HospitalComselect specialty hospital-[facility] on above:Performed By: #### A1C #### [facility] [address] [place] [address] Dr. Briana DillardHbA1c (Bld) [Mass fraction]9.4 %Critically high4.5-6.2[facility] on above:Performed By: #### A1C #### [facility] [address] [address] [address] Briana Red AUTO DIFFon 57-29-0812NJGN #0.1 103/ulNormal0.0-0.1The [facility] HospitalComment on above:Performed By: #### CBC #### [facility] [address] [address] [address] Briana DillardBasophils/100 WBC (Bld)0.9 %Normal0.2-2.0[facility] Comment on above:Performed By: #### CBC #### [facility] [address] [place] [address] Dr. Briana Butler #0.3 103/ulNormal0.0-0.7The [facility] HospitalComment on above: Performed By: #### CBC #### [facility] [address] [place] [address] Dr. rBiana Hayosinophils/100 WBC (Bld)2.7 %Normal0.9-7.0[facility] Comment on above:Performed By: #### CBC #### [facility] [address] [address] [address] Briana Hayrythrocyte distribution width (RBC) [Ratio]15.8 %Critically high 11.0-15.0The [facility] HospitalComment on above:Performed By: #### CBC #### [facility] [address] [place] [address] Dr. Briana DillardHematocrit (Bld) [Volume fraction]39.4 %Crqbyn96.0-48.0The [facility] HospitalComment on above:Performed By: #### CBC #### [facility] [address] [place] [address] Dr. Briana DillardHemoglobin (Bld) [Mass/Vol]13.0 g/qSLlvzbi74.0-16.0The [facility] HospitalComment on above:Performed By: #### CBC #### [facility] [address] [place] [address] Dr. Briana Velasquez #0.12 10e3/ulCritically high0.00-0.03The [facility] Comment on above:Performed By: #### CBC #### [facility] [address] [address] [address] Briana Velasquez %1.1 %Critically high0.0-0.5The [facility] HospitalComment on above:Performed By: #### CBC #### [facility] [address] [address] [address] Briana Rob #2.7 103/ulNormal1.2-3.8The [facility] HospitalComment on above:Performed By: #### CBC #### [facility] [address] [place] [address] Dr. Briana Griffithhocytes/100 WBC (Bld)25.6 %Mrolhj26.5-60.0The [facility] HospitalComment on above:Performed By: #### CBC #### [facility] [address] [place] [address] Dr. Briana Driscoll DIFF REQNONormalThe [facility] HospitalComment on above: Performed By: #### CBC #### [facility] [address] [place] [address] Dr. Briana Bailey (RBC) [Entitic mass]30.9 moTgingu01.7-34.0The [facility] HospitalComment on above:Performed By: #### CBC #### [facility] [address] [place] [address] Dr. Briana Kenney (RBC) [Mass/Vol]33.0 g/tJEvrgxv72.9-35.2The [facility] HospitalComment on above:Performed By: #### CBC #### [facility] [address] [place] [address] Dr. Briana Kenney (RBC) [Entitic vol]93.6 vSEtghae21.0-99.0The [facility] HospitalComment on above:Performed By: #### CBC #### [facility] [address] [place] [address] Dr. Briana Holt #0.8 103/ulNormal0.3-0.8The [facility] HospitalComment on above:Performed By: #### CBC #### [facility] [address] [place] [address] Dr. Briana Antoineocytes/100 WBC (Bld)7.9 %Normal1.7-12.0The [facility] Comment on above:Performed By: #### CBC #### [facility] [address] [place] [address] Dr. Briana Angel #6.6 103/ulCritically high1.4-6.5The [facility] Comment on above:Performed By: #### CBC #### [facility] [address] [place] [address] Dr. Briana Montesutrophils/100 WBC (Bld)61.8 %Pjfqqe90.0-75.0The [facility] HospitalComment on above:Performed By: #### CBC #### [facility] [address] [place] [address] Dr. Briana DillardPlatelet mean volume (Bld) [Entitic vol]10.3 fLNormal9.5-13.5The [facility] HospitalComment on above:Performed By: #### CBC #### [facility] [address] [place] [address] Dr. Briana DillardPLT234 103/ezGlgqlv754-894Qvz [facility] HospitalComment on above: Performed By: #### CBC #### [facility] [address] [place] [address] Dr. Briana DillardRBC4.21 106/ulNormal4.20-5.40The [facility] HospitalComment on above:Performed By: #### CBC #### [facility] [address] [place] [address] Dr. Briana DillardWBC10.6 103/ulNormal4.0-11.0The [facility] HospitalComment on above:Performed By: #### CBC #### [facility] [address] [place] [address] Dr. Briana DillardGLYCOHEMOGLOBIN A1Con [id number] RECOMMENDATIONSEE BELOWNormal The [facility] HospitalComment on above:Result Comment: ADA RECOMMENDED LIMIT 4.0 - 6.0 ADA THERAPEUTIC TARGET < 7.0 ACTION SUGGESTED > 7.0Performed By: #### CBC #### [facility] [address] [address] [address] Briana DillardGlucose [Mass/Vol]220 mg/dLNoCleveland Clinic Hillcrest HospitalComment on above:Performed By: #### CBC #### [facility] [address] [place] [address] Dr. Briana DillardHbA1c (Bld) [Mass fraction]9.3 %Critically high4.5-6.2The [facility] HospitalComment on above:Performed By: #### CBC #### [facility] [address] [place] [address] Dr. Briana DillardLIPID PROFILEon [id number]-HDL RATIO NORMSEE BELOWChildren's Hospital of ColumbusComment on above:Result Comment: 3.3 - 4.4 LOW RISK 4.4 - 7.1 AVERAGE RISK 7.1 - 11.0 MODERATE RISK >11.0 HIGH RISKPerformed By: #### CMP, CMADM, BNP #### [facility] [address] [place] [address] Dr. Briana DillardCholesterol [Mass/Vol]135 mg/dLNormal<=200The [facility] Comment on above:Performed By: #### CMP, CMADM, BNP #### [facility] [address] [address] [address] Briana DillardCholesterol in HDL [Mass/Vol]44 mg/oJIdavnz08-03Ien [facility] HospitalComment on above:Performed By: #### CMP, CMADM, BNP #### [facility] [address] [place] [address] Dr. Briana DillardCholesterol in LDL [Mass/Vol]60.2 mg/dLNoCleveland Clinic Hillcrest HospitalComment on above:Performed By: #### CMP, CMADM, BNP #### [facility] [address] [place] [address] Dr. Briana DillardCholesterkeri.total/Cholesterol in HDL [Mass ratio]3.1 {ratio} NormalSelect Medical Specialty Hospital [facility] on above:Performed By: #### CMP, CMADM, BNP #### [facility] [address] [address] [address] Briana Triana NORMAL> or = 60 mg/dl - LOW CARDIOVASCULAR RISK <40 mg/dl - HIGH CARDIOVASCULAR RISKChildren's Hospital of ColumbusComselect specialty hospital-[facility] on above:Performed By: #### CMP, CMADM, BNP #### [facility] [address] [address] [address] Briana Bennett CALC NORMALSEE BELOWChildren's Hospital of ColumbusComment on above:Result Comment: <100 mg/dl OPTIMAL 100 - 129 mg/dl NEAR OR ABOVE OPTIMAL 130 - 159 mg/dl BORDERLINE HIGH 160 - 189 mg/dl HIGH >190 mg/dl VERY HIGH Performed By: #### CMP, CMADM, BNP #### [facility] [address] [address] [address] Briana DillardTriglyceride [Mass/Vol]154 mg/dLCritically high<=150The [facility] HospitalComselect specialty hospital-[facility] on above:Performed By: #### CMP, CMADM, BNP #### [facility] [address] [address] [address] Briana Barton CALC30.8 mg/dLNoCleveland Clinic Hillcrest HospitalComselect specialty hospital-[facility] on above: Performed By: #### CMP, CMADM, BNP #### [facility] [address] [address] [address] Briana DillardPOINT OF CARE GLUCOSEon 30-12-6594Wryebyx [Mass/Vol]271 mg/dL Critically boip39-898HhsCorey HospitalComselect specialty hospital-[facility] on above:Performed By: #### CBC #### [facility] [address] [place] [address] Dr. Briana DillardGlucose [Mass/Vol]180 mg/dLCritically gcmz73-310Oqg [facility] HospitalComment on above:Performed By: #### CMP, CMADM, BNP #### [facility] [address] [place] [address] Dr. Briana Bahena 72-91-7061Cwkzxvmfqmq peptide B (Bld) [Mass/Vol]86.0 pg/mL Normal<=900.0The [facility] HospitalComment on above:Performed By: #### CMP, CMADM, BNP #### [facility] [address] [address] [address] Briaan Walter TANIA ADMITon 33-61-1829BY [Catalytic activity/Vol]52 U/L Hvxriy05-050Kpe [facility] HospitalComment on above:Performed By: #### CMP, CMADM, BNP #### [facility] [address] [address] [address] Briana Garcia.MB [Mass/Vol]0.65 ng/mLNormal<=3.60The [facility] Comment on above:Performed By: #### CMP, CMADM, BNP #### [facility] [address] [address] [address] Briana MirandaTROP4.8 pg/mLNormal4.0-51.3The [facility] on above:Result Comment: CUT-OFF POINTS HAVE BEEN ESTABLISHED BASED ON THE FOURTH UNIVERSAL DEFINITIONS OF MYOCARDIAL INFARCTION. THE UPPER REFERENCE LIMIT (URL) OF TROPONIN, DEFINED THE 99TH PERCENTILE OF cTnI DISTRIBUTION IN A REFERENCE POPULATION, HAS BEEN CONFIRMED THE DECISION THRESHOLD FOR HI DIAGNOSIS.Performed By: #### CMP, CMADM, BNP #### [facility] [address] [address] [address] Briana SabillonO47 ng/mLNormal9-82The [facility] HospitalComment on above: Performed By: #### CMP, CMADM, BNP #### [facility] [address] [address] [address] Briana Red AUTO DIFFon 30-45-0986UDYW #0.1 103/ulNormal0.0-0.1The [facility] on above:Performed By: #### CBC #### [facility] [address] [address] [address] Briana DillardBasophils/100 WBC (Bld)0.8 %Normal0.2-2.0[facility] Comment on above:Performed By: #### CBC #### [facility] [address] [place] [address] Dr. Briana Butler #0.2 103/ulNormal0.0-0.7The [facility] HospitalComment on above: Performed By: #### CBC #### [facility] [address] [place] [address] Dr. Briana Hayosinophils/100 WBC (Bld)1.4 %Normal0.9-7.0[facility] Comment on above:Performed By: #### CBC #### [facility] [address] [place] [address] Dr. Briana Hayrythrocyte distribution width (RBC) [Ratio]15.8 %Critically high 11.0-15.0The [facility] HospitalComment on above:Performed By: #### CBC #### [facility] [address] [place] [address] Dr. Briana DillardHematocrit (Bld) [Volume fraction]42.2 %Cthtex64.0-48.0The [facility] HospitalComment on above:Performed By: #### CBC #### [facility] [address] [place] [address] Dr. Briana DillardHemoglobin (Bld) [Mass/Vol]14.3 g/jLQckgxh18.0-16.0The [facility] HospitalComment on above:Performed By: #### CBC #### [facility] [address] [place] [address] Dr. Briana Velasquez #0.14 10e3/ulCritically high0.00-0.03The [facility] Comment on above:Performed By: #### CBC #### [facility] [address] [place] [address] Dr. Briana Velasquez %1.1 %Critically high0.0-0.5The [facility] HospitalComment on above:Performed By: #### CBC #### [facility] [address] [place] [address] Dr. Briana Rob #1.9 103/ulNormal1.2-3.8The [facility] HospitalComment on above:Performed By: #### CBC #### [facility] [address] [place] [address] Dr. Briana Blevinsmphocytes/100 WBC (Bld)14.0 %Critically low20.5-60.0The [facility] HospitalComment on above:Performed By: #### CBC #### [facility] [address] [place] [address] Dr. Briana Driscoll DIFF REQNONormalThe [facility] HospitalComment on above: Performed By: #### CBC #### [facility] [address] [place] [address] Dr. Briana Kenney (RBC) [Entitic mass]31.2 wsSbipre80.7-34.0The [facility] HospitalComment on above:Performed By: #### CBC #### [facility] [address] [place] [address] Dr. Briana Kenney (RBC) [Mass/Vol]33.9 g/jMYqkftc83.9-35.2The [facility] HospitalComment on above:Performed By: #### CBC #### [facility] [address] [place] [address] Dr. Briana Kenney (RBC) [Entitic vol]92.1 fMEoxtio66.0-99.0The [facility] HospitalComment on above:Performed By: #### CBC #### [facility] [address] [place] [address] Dr. Briana Holt #1.1 103/ulCritically high0.3-0.8ThFirelands Regional Medical Center Comment on above:Performed By: #### CBC #### [facility] [address] [place] [address] Dr. Briana Antoineocytes/100 WBC (Bld)8.0 %Normal1.7-12.0[facility] Comment on above:Performed By: #### CBC #### [facility] [address] [place] [address] Dr. Briana MontesUT #9.9 103/ulCritically high1.4-6.5The [facility] Comment on above:Performed By: #### CBC #### [facility] [address] [place] [address] Dr. Briana Montesutrophils/100 WBC (Bld)74.7 %Ykchbs43.0-75.0The [facility] HospitalComment on above:Performed By: #### CBC #### [facility] [address] [place] [address] Dr. Briana DillardPlatelet mean volume (Bld) [Entitic vol]10.1 fLNormal9.5-13.5The [facility] HospitalComment on above:Performed By: #### CBC #### [facility] [address] [place] [address] Dr. Briana DillardPLT241 103/hjTpzmml687-253Gaa [facility] HospitalComment on above: Performed By: #### CBC #### [facility] [address] [place] [address] Dr. Briana DillardRBC4.58 106/ulNormal4.20-5.40The [facility] HospitalComment on above:Performed By: #### CBC #### [facility] [address] [place] [address] Dr. Briana DillardWBC13.2 103/ulCritically high4.0-11.0The [facility] HospitalComment on above:Performed By: #### CBC #### [facility] [address] [place] [address] Dr. Briana Marmolejo CHEST WO W CONon [id number] CHEST WO W CONEXAMINATION: CTA CHEST WO W CON HISTORY: SHORTNESS [...] Electronically authenticated by: NADJA KEMP Date: 2021-11-28 13:10NoCleveland Clinic Hillcrest HospitalCovid-19 PCR (CVDTBH)on 67-25-2262YDPV-CoV-2 (COVID-19) RNA ANTOINE+probe Ql (Unsp spec)Not detectedNormalNOT DETECTEDCorey Hospital Comment on above:Result Comment: When diagnostic testing is negative, the [...] for this test is supported by the [place] of Health and Human Service's declaration that circumstances exist to justify the emergency use of in vitro diagnostics for the detection and/or diagnosis of the virus that causes COVID-19. This EUA will remain in effect for the duration of the COVID-19 declaration justifying emergency of IVDs, unless it is terminated or revoked by the FDA (after which the test may no longer be used).Performed By: #### CMP, CMADM, BNP #### [facility] [address] [place] [address] Dr. Briana Viramontes 02-62-8402O-DIMER0.77 mg/L FEUCritically high<=0.59[facility] HospitalComment on above:Performed By: #### PT, PTT, DDIM #### [facility] [address] [place] [address] Dr. Briana DillardD-DIMER COMMENTSSEE [facility] on above:Result Comment: Increases in D-Dimer concentration observed with thromboembolic events [...] stress, and generalized hospitalization. Performed By: #### PT, PTT, DDIM #### [facility] [address] [place] [address] Dr. Briana DillardPOINT OF CARE GLUCOSEon 90-27-0584Scusrsq [Mass/Vol]213 mg/dL Critically vdre94-366Xqd [facility] HospitalComment on above:Performed By: #### POCGLUC #### [facility] [address] [place] [address] Dr. Briana DillardGlucose [Mass/Vol]255 mg/dLCritically ziok52-898Ico [facility] HospitalComment on above:Performed By: #### CMP, CMADM, BNP #### [facility] [address] [place] [address] Dr. Briana DillardPROF 14(COMP METB)on 50-29-6898Eryvvlt [Mass/Vol]3.4 g/dLNormal 3.4-5.0The [facility] HospitalComment on above:Performed By: #### CMP, CMADM, BNP #### [facility] [address] [place] [address] Dr. Briana DillardAlbumin/Globulin [Mass ratio]0.9 {ratio}NormalThe [facility] on above:Performed By: #### CMP, CMADM, BNP #### [facility] [address] [place] [address] Dr. Briana DillardALP [Catalytic activity/Vol]126 U/LCritically iecw45-522Nme Kathy HospitalComment on above:Performed By: #### CMP, CMADM, BNP #### [facility] [address] [address] [address] Briana Aaron [Catalytic activity/Vol]30 U/WYkbxgq43-92Ird [facility] HospitalComment on above:Performed By: #### CMP, CMADM, BNP #### [facility] [address] [address] [address] Briana Diezon gap [Moles/Vol]13.6 mmol/LNormalThe [facility] Comment on above:Performed By: #### CMP, CMADM, BNP #### [facility] [address] [address] [address] Briana Trevino [Catalytic activity/Vol]18 U/OAnvvxr40-19Ckh [facility] HospitalComment on above:Performed By: #### CMP, CMADM, BNP #### [facility] [address] [place] [address] Dr. Briana DillardBilirubin [Mass/Vol]0.4 mg/dLNormal0.2-1.0The [facility] Comment on above:Performed By: #### CMP, CMADM, BNP #### [facility] [address] [place] [address] Dr. Briana DillardCalcium [Mass/Vol]8.9 mg/dLNormal8.5-10.1[facility] Comment on above:Performed By: #### CMP, CMADM, BNP #### [facility] [address] [place] [address] Dr. Briana DillardChloride [Moles/Vol]98 mmol/CEgdqic76-242Avh [facility] Comment on above:Performed By: #### CMP, CMADM, BNP #### [facility] [address] [place] [address] Dr. Briana DillardCO2 [Moles/Vol]25.0 mmol/YMlfcdw28.0-32.0[facility] Comment on above:Performed By: #### CMP, CMADM, BNP #### [facility] [address] [place] [address] Dr. Yilan ChangCreatinine [Mass/Vol]1.58 mg/dLCritically high0.55-1.02The [facility] HospitalComment on above:Performed By: #### CMP, CMADM, BNP #### [facility] [address] [address] [address] Briana HayGFR-AF NXPJHLFK05 mL/min/1.16a9Yexdljgdmx low>=60The [facility] HospitalComment on above:Performed By: #### CMP, CMADM, BNP #### [facility] [address] [address] [address] Briana HayGFR-NON AF GSWZFAQA26 mL/min/1.47b4Mtgbgfnnyq low>=60The [facility] HospitalComment on above:Performed By: #### CMP, CMADM, BNP #### [facility] [address] [address] [address] Briana DillardGlobulin (S) [Mass/Vol]4.0 g/dLNormalThe [facility]ion HospitalComment on above:Performed By: #### CMP, CMADM, BNP #### [facility] [address] [address] [address] Briana DillardGlucose [Mass/Vol]386 mg/dLCritically xaxb42-570Rqp [facility] on above:Performed By: #### CMP, CMADM, BNP #### [facility] [address] [address] [address] Briana DillardPotassium [Moles/Vol]4.6 mmol/LNormal3.5-5.1[facility] Comment on above:Performed By: #### CMP, CMADM, BNP #### [facility] [address] [address] [address] Briana DillardProtein [Mass/Vol]7.4 g/dLNormal6.4-8.2[facility] Comment on above:Performed By: #### CMP, CMADM, BNP #### [facility] [address] [address] [address] Briana DillardSodium [Moles/Vol]132 mmol/LCritically qqs813-088Wsz [facility] on above:Performed By: #### CMP, CMADM, BNP #### [facility] [address] [place] [address] Dr. Briana Ulloa nitrogen [Mass/Vol]23.0 mg/dLCritically high7.0-18.0[facility] on above:Performed By: #### CMP, CMADM, BNP #### [facility] [address] [place] [address] Dr. Briana Ulloa nitrogen/Creatinine [Mass ratio]14.6 mg/mgNoCleveland Clinic Hillcrest HospitalComselect specialty hospital-[facility] on above:Performed By: #### CMP, CMADM, BNP #### [facility] [address] [place] [address] Dr. Briana Valadez 06-79-8417IZI Coag (PPP) [Relative time]1.01 {INR} NormalSelect [facility] on above:Performed By: #### PT, PTT, DDIM #### [facility] [address] [place] [address] Dr. Briana Wolff GUIDELINESSEE BELOWChildren's Hospital of ColumbusComselect specialty hospital-[facility] on above:Result Comment: DESIRED INR: 2.0 - 3.0 CONDITIONS NOT LISTED BELOW 2.5 - 3.5 FOR PROSTHETIC HEART VALVE REPLACEMENT 2.5 - 3.5 RECURRENT THROMBOSIS Performed By: #### PT, PTT, DDIM #### [facility] [address] [place] [address] Dr. Briana Manuel Coag (PPP) [Time]10.9 sNormal9.0-11.6[facility] Comment on above:Performed By: #### PT, PTT, DDIM #### [facility] [address] [place] [address] Dr. Briana Coley 88-23-0575zNZP Coag (Bld) [Time]27.5 tYyrfwl95.3-36.2[facility] on above:Performed By: #### PT, PTT, DDIM #### [facility] [address] [place] [address] Dr. Briana Juarez, HIGH SENSITIVITYon 65-66-8850CRSVCN3.5 pg/mLNormal 4.0-51.3TOhioHealth Shelby Hospital on above:Result Comment: CUT-OFF POINTS HAVE BEEN ESTABLISHED BASED ON THE FOURTH UNIVERSAL DEFINITIONS OF MYOCARDIAL INFARCTION. THE UPPER REFERENCE LIMIT (URL) OF TROPONIN, DEFINED THE 99TH PERCENTILE OF cTnI DISTRIBUTION IN A REFERENCE POPULATION, HAS BEEN CONFIRMED THE DECISION THRESHOLD FOR HI DIAGNOSIS.Performed By: #### CMP, CMADM, BNP #### [facility] [address] [address] [address] Briana DillardHSTROP5.4 pg/mLNormal4.0-51.3TOhioHealth Shelby Hospital on above:Result Comment: CUT-OFF POINTS HAVE BEEN ESTABLISHED BASED ON THE FOURTH UNIVERSAL DEFINITIONS OF MYOCARDIAL INFARCTION. THE UPPER REFERENCE LIMIT (URL) OF TROPONIN, DEFINED THE 99TH PERCENTILE OF cTnI DISTRIBUTION IN A REFERENCE POPULATION, HAS BEEN CONFIRMED THE DECISION THRESHOLD FOR HI DIAGNOSIS.Performed By: #### CMP, CMADM, BNP #### [facility] [address] [address] [address] Briana DillardHSTROP5.6 pg/mLNormal4.0-51.3TOhioHealth Shelby Hospital on above:Result Comment: CUT-OFF POINTS HAVE BEEN ESTABLISHED BASED ON THE FOURTH UNIVERSAL DEFINITIONS OF MYOCARDIAL INFARCTION. THE UPPER REFERENCE LIMIT (URL) OF TROPONIN, DEFINED THE 99TH PERCENTILE OF cTnI DISTRIBUTION IN A REFERENCE POPULATION, HAS BEEN CONFIRMED THE DECISION THRESHOLD FOR HI DIAGNOSIS.Performed By: #### CMP, CMADM, BNP #### [facility] [address] [address] [address] Briana DillardXR CHEST 1 Von 21-50-1625NN CHEST 1 VEXAMINATION: XR CHEST 1 V HISTORY: CHEST PAIN, [...] Electronically authenticated by: NADJA KEMP Date: 2021-11-28 12:46[facility] ColumbusTobacco Screening.on 24-06-8643Sjawa depression screening assessmentYeKevin [place] [address] DO Work Phone: Tobacco use status CPHSa) [address] [address] DO Work Phone: Tobacco Screening.[address] [address] DO Work Phone: Tobacco Screening.1-Several daysJason [place]ille [address] DO Work Phone: Tobacco Screening.0-Not at allJason [place] [address] DO Work Phone: Tobacco Screening.Not difficult at allStephanie [place] [address] DO Work Phone: Echocardiogramon 91-12-5764XvsldzhfqwcyafxzUrg[address], [place] [address] TRANSTHORACIC ECHOCARDIOGRAM REPORT Patient Name: VIDHYA IBARRA Reading Physician: [id number] Ruma Dawn MD Study Date: 05/20/2021 Referring [id number] SHASHI MADISON Physician: MRN/PID: [id number] PCP: Accession/Order#: [id number] [facility] Location: Date of : 1955 Fellow: Gender: F Nurse: Admit Date: Binder Cutter Hand: Clarisse Sumner [facility], T Height: 160.02 cm CC Report to: Weight: 89.36 kg Study Type: Echocardiogram BSA: 1.92 m2 Blood Pressure: 166 /94 mmHg Diagnosis/ICD: I51.7-Cardiomegaly; R06.00-Dyspnea, unspecified Indication: Obesity, Tobacco Abuse Procedure/CPT: Echo Complete w Full Doppler-53835 Study Detail: The following Echo studies were performed: 2D, M-Mode, Doppler and color flow. PHYSICIAN INTERPRETATION: Left Ventricle: The left ventricular systolic function is normal, with an estimated ejection fraction of 60%. The left ventricular cavity size is normal. Spectral Doppler shows an impaired relaxationpattern of left ventricular diastolic filling. Mild concentric [...] normal. There is no indication of pulmonic valveregurgitation. Pericardium: There is no pericardial effusion noted. [...] 0.9 m/s (0.6-0.9m/s) PV Max P.1 mmHg [id number] Ruma Dawn MD Electronically signed on 05/24/2021 at 5:25:46 PM Final NormalArkansas Valley Regional Medical CenterTomiddlesex hospital Screening.on 85-89-8134Qhsb risk assessmenta) No falls within the [facility] 250 DO Work Phone: Tobacco use status CPHSa) YesPe[facility]Health [facility] 250 DO Work Phone: Fall risk assessmenta) No falls within the last year [facility] 250 DO Work Phone: Tobacco use status CPHSa) [facility] [place] 250 DO Work Phone: Tobacco Screening.[facility] 250 DO Work Phone: Bld Gas Venon 26-97-1774Fgudrd TestN/Nimo [facility] CenterComment on above:Result Comment: [facility] Department of Pulmonary Medicine [address] [place] [address] 509[address]Szsgxvcbn By: #### [id number] #### [facility] [address] [place] [address]Xglkrh By:KATHY OCHOAGerman HospitalComment on above:Performed By: #### [id number] #### [facility] [address] [place] [address]Kngrcg To:DR. CORINNE COFFMANGerman HospitalComment on above:Performed By: #### [id number] #### [facility] [address], [place] [address]Qsbfw byCLMGerman HospitalComment on above: Performed By: #### [id number] #### [facility] [address] [place] [address]Ij/Tm Toppandz8969/07/31 17:42:00[facility] Comment on above:Performed By: #### [id number] #### [facility] [address], [place] [address]eRH0 Ven36.1 lkMuHoo56.0-50.0German HospitalComment on above:Performed By: #### [id number] #### [facility] [address], [place] [address]fV (BldV)7.392 [pH]Normal7.320-7.430[facility] Comment on above:Performed By: #### [id number] #### [facility] [address], [place] [address]Aaeuds SiteOTHERGerman HospitalComment on above: Performed By: #### [id number] #### [facility] [address], [place] [address]Dxctih TypeEldonGerman HospitalComment on above: Performed By: #### [id number] #### [facility] [address], [place] [address]Cthoafazn Orderon 14-42-9126Adgbtssbd Order [id number]#1.00CD:127[facility] Vital Signs Date TimeVital SignValuePerforming YaqxcfsznNxfxezxo61-00-0764 09:54-0400Body bulkkf083.02 cmLisa Aichholz INVESTOR-C Work Phone: 1(176)[address]10-08-2025 09:54-0400 Body mass index (BMI) [Ratio]32.1 kg/m2Lisa Aichholz INVESTOR-C Work Phone: 1(673)[address]10-08-2025 09:54-0400 Body oudafgnunbh03.1 [degF]Coni Aichholz INVESTOR-C Work Phone: 4(184)[address]10-08-2025 09:54-0400 Body ebzgns79.32 kgLisa Aichholz INVESTOR-C Work Phone: 1(036)711-[address] [place], [place] [address]10-08-2025 09:54-0400 Diastolic blood qknhywin67 mm[Hg]Coni Aichholz INVESTOR-C Work Phone: 4(810)002-[address] [place], [place] [address]10-08-2025 09:54-0400 Heart rate69 /minLisa Aichholz INVESTOR-C Work Phone: 6(693)[address]10-08-2025 09:54-0400 Respiratory rate14 /minLisa Aichholz INVESTOR-C Work Phone: 2(121)444-[address] [place], [place] [address]10-08-2025 09:54-0400 SaO2% (BldA) [Mass fraction]90 %Coni Osorio INVESTOR-C Work Phone: [facility]10-08-2025 09:54-0400 Systolic blood kciwkwxy369 mm[Hg]Coni Jo INVESTOR-C Work Phone: [facility]07-03-2025 11:10-0400 Body crdkoz737.02 cmPHYSICIAN [facility] 11-03-2024 11:10-0400Body mass index (BMI) [Ratio]32.6 kg/a1PYQDRCLWB [facility]07-03-2025 11:10-0400Body jphheycqite99 [degF] PHYSICIAN [facility]07-03-2025 11:10-0400Body ojthyy62.63 kgPHYSICIAN [facility]07-03-2025 11:10-0400Diastolic blood ddqnjher61 mm[Hg]PHYSICIAN NO [facility]07-03-2025 11:10-0400Heart ulrg027 /minPHYSICIAN [facility]07-03-2025 11:10-0400Respiratory rate18 /min PHYSICIAN [facility]07-03-2025 11:10-6530BaP5% (BldA) [Mass fraction]92 %PHYSICIAN [facility] 11-03-2024 11:10-0400Systolic blood lzaadbjy120 mm[Hg]PHYSICIAN NO [facility]07-02-2025 10:07-0400Body mass index (BMI) [Ratio]32.81 kg/m2Coni Osorio INVESTOR Work Phone: [facility] HospitalCjyetybxlp50-26-9500 10:07-0400Body temperature 98.49 [degF]Coni Osorio INVESTOR Work Phone: [facility] HospitalDwyuhhnbqp14-66-9973 10:07-0400Body kjpeyd72.01 kgConi Osorio INVESTOR Work Phone: [facility] HospitalLgdbrbnbnq20-97-4761 10:07-0400Diastolic blood qzsnvwav24 mm[Hg]Coni Osorio INVESTOR Work Phone: [facility] HospitalFsrajfyaly02-22-4789 10:07Heart rate97 /min Coni Osorio INVESTOR Work Phone: [facility] HospitalLzycrcmzqu53-41-9276 10:Respiratory rate20 /minConi Osorio INVESTOR Work Phone: 1(806)[address] [place], [place] [address]Wxjypronoc39-78-9343 10:07-7670JcS8% (BldA) [Mass fraction]92 %Coni Osorio INVESTOR Work Phone: [phone] HospitalPpcrbocxvj76-61-1260 10:07Systolic blood svzbuovf572 mm[Hg]Coni Osorio INVESTOR Work Phone: [facility] HospitalFvbemjmpuo50-80-9426 09:57-0500Body fzdbmi338.02 cmBrittany Carver INVESTOR-C Work Phone: 1(587)[address]11-19-2024 09:57-0500 Body mass index (BMI) [Ratio]34 kg/i8Ugdotxsm Carver INVESTOR-C Work Phone: 1(184)[address]11-19-2024 09:57-0500 Body jvzarqssxzm36.9 [degF]Migel Carver INVESTOR-C Work Phone: 1(961)083-[address] [place], [place] 28[address]11-19-2024 09:57-0500 Body kmjqos44.14 kgBrittany Carver INVESTOR-C Work Phone: 1(368)414-[address] [place], [place] 28[address]11-19-2024 09:57-0500 Diastolic blood rhefwujw70 mm[Hg]Migel Carver INVESTOR-C Work Phone: 1(171)[address]11-19-2024 09:57-0500 Heart owoz583 /minBrittany Carver INVESTOR-C Work Phone: 1(158)8-[address] [place], [place] 28[address]11-19-2024 09:57-0500 Respiratory rate18 /minMigel Okeefezpatrick INVESTOR-C Work Phone: 1(654)115-[address] [place], [place] [address]11-19-2024 09:57-0500 SaO2% (BldA) [Mass fraction]92 %Migel Carver INVESTOR-C Work Phone: 1(085)808-[address] [place], [place] [address]11-19-2024 09:57-0500 Systolic blood iofcxzsf868 mm[Hg]Migel Carver INVESTOR-C Work Phone: 1(693)802-[address] [place], [place] 2820409-04-2024 15:12-0400 Body cmSteven Rusher DPM Work Phone: 1(760)076-08[facility] HospitalYueloxffnl01-90-8410 15:12-0400Body mass index (BMI) [Ratio]36.14 kg/k0Quzlee Rusher DPM Work Phone: 1(480)[address]09-04-2024 15:12-0400Body ioerux17.53 kgSteven Rusher DPM Work Phone: 1(155)677-26[facility] HospitalNedxdzxruq43-04-3844 10:22-0400Body temperature 97.2 [degF]MD Shaikh Mchugh Work Phone: 1(934)471-[address] [place], [place] 2820404-03-2024 10:22-0400 Body bozxtn30.81 kgMD Shaikh Mchugh Work Phone: 1(770)678-[address] [place], [place] 2820404-03-2024 10:22-0400 Diastolic blood xmnmxgim36 mm[Hg]MD Shaikh Mchugh Work Phone: 1(842)451-[address] [place], [place] 2820404-03-2024 10:22-0400 Heart rate71 /minMD Shaikh Mchugh Work Phone: 1(718)701-[address] [place], [place] 2820404-03-2024 10:22-0400 Respiratory rate16 /minMD Shaikh Mchugh Work Phone: 1(714)782-[address] [place], [place] 2820404-03-2024 10:22-0400 SaO2% (BldA) [Mass fraction]90 %MD Shaikh Mchugh Work Phone: 1(536)[address]04-03-2024 10:22-0400 Systolic blood zaxcaivg432 mm[Hg]MD Shaikh Mchugh Work Phone: 1(623)[address]02-21-2024 10:07-0500 Body nplwwu534.02 cm Shaikh Jeison Work Phone: 1(473)[address]02-21-2024 10:07-0500 Body mass index (BMI) [Ratio]34.2 kg/m2MD Shaikh Mchugh Work Phone: 1(470)[address] [place], [place] 3105502-21-2024 10:07-0500 Body ydpzjconzvq23.2 [degF]MD Shaikh Mchugh Work Phone: 1(325)23391 [address]02-21-2024 10:07-0500 Body huoyay11.54 kg Shaikh Jeison Work Phone: 1(368)[address]02-21-2024 10:07-0500 Diastolic blood onlnwxql85 mm[Hg]MD Shaikh Mchugh Work Phone: 1(728)95491 [address]02-21-2024 10:07-0500 Heart rate78 /minMD Shaikh Mchugh Work Phone: 1(718)[address]02-21-2024 10:07-0500 Respiratory rate16 /minMD Shaikh Mchugh Work Phone: 1(516)33191 [address]02-21-2024 10:07-0500 SaO2% (BldA) [Mass fraction]95 %MD Shaikh Mchugh Work Phone: 1(960)54191 [address]02-21-2024 10:07-0500 Systolic blood madoejnn339 mm[Hg]MD Shaikh Mchugh Work Phone: 1(419)[address] [place], [place] 3105511-21-2023 13:06-0500 Body vqidxvoumkd97.8 [degF]MD Shaikh Mchugh Work Phone: 1(891)14[address]11-21-2023 13:06-0500 Body lrivqh56.63 kg Shaikh Jeison Work Phone: 1(478)04191 [address]11-21-2023 13:06-0500 Diastolic blood xgrityeh99 mm[Hg]MD Shaikh Mchugh Work Phone: 1(673)[address]11-21-2023 13:06-0500 Heart rate68 /minMD Shaikh Mchugh Work Phone: 1(976)[address]11-21-2023 13:06-0500 Respiratory rate16 /minMD Shaikh Mchugh Work Phone: 1(321)321-[address] [place], [place] 28[address]11-21-2023 13:06-0500 SaO2% (BldA) [Mass fraction]98 %MD Shaikh Mchugh Work Phone: 1(118)[address]11-21-2023 13:06-0500 Systolic blood rfpfinya448 mm[Hg]MD Shaikh Mchugh Work Phone: 1(080)32591 [address]11-21-2023 12:53-0500 Body .02 cm Shaikh Jeison Work Phone: 1(242)762-[address] [place], [place] 2820411-08-2023 09:20-0500 Body yddvmd333.56 cmAbdul Sharmaine Other [employer] Other 11-08-2023 09:20-0500Body mass index (BMI) [Ratio] 32.78 kg/l3Wejpf Sharmaine Other [employer] / [facility]Tr[facility]ermer[facility] [employer] Other 11-08-2023 09:20-0500Body yvrwsefehzg31.3 [degF]Alta Sharmaine Other [employer] Other 11-08-2023 09:20-0500Body fnccfa59.64 kgAbdul Sharmaine Other [employer] Other 11-08-2023 09:20-0500Diastolic blood wucwejxd80 mm[Hg] Alta Sharmaine Other [employer] Other 11-08-2023 09:20-0500Respiratory rate18 /minAbdul Sharmaine Other [employer] / [employer] Other 11-08-2023 09:20-3973EeR4% (BldA) [Mass fraction]95 % Alta Sharmaine Other [employer] Other 11-08-2023 09:20-0500Systolic blood xgmucdtj474 mm[Hg] Alta Sharmaine Other [employer] Other 08-07-2023 08:41-0400Body txpoqv286.02 [facility] Countyteresa xPeerientd Work Phone: mp543-4570AX-Zhlar [place] [employer] 250 DO Work Phone: 1(119) 581-334608-07-2023 08:41-0400Body mass index (BMI) [Ratio] 32.95 kg/r5Obosmf xPeerientd Work Phone: mp651-2022XQ-Xbhat [place] [employer] 250 DO Work Phone: 1(824) 625-991808-07-2023 08:41-0400Body surface area Derived from formula1.88 d6Lngftg [employer] Work Phone: mp599-5457WH-Kyyyv [employer] 250 DO Work Phone: 1(263) 110-361008-07-2023 08:41-0400Body .37 kgShamandakh Fawwad Work Phone: mp694-8574NN-Apbgt [facility] 250 DO Work Phone: 1(957) 821-155808-07-2023 08:41-0400Diastolic blood mm[Hg] Graham Fawwad Work Phone: mp709-3419ED-Dpqjy [facility] 250 DO Work Phone: 1(990) 289-153208-07-2023 08:41-0400Heart rate66 /minShaikh Fawwad Work Phone: mp246-1127AX-Bqeho [facility] 250 DO Work Phone: 1(530) 429-523608-07-2023 08:41-0400Systolic blood mm[Hg] Graham Fawwad Work Phone: mp047-1730ID-Azdjy [facility] 250 DO Work Phone: 1(532) 689-221302-28-2022 13:12-0500Diastolic blood eziccjep14 mm[Hg] Graham Fawwad Work Phone: mp954-0168SF-Pydrc [facility] 250 DO Work Phone: 1(183) 527-750802-28-2022 13:12-0500Systolic blood uoandjyp382 mm[Hg] Graham Fawwad Work Phone: mp565-9842GA-Xfark [facility] 250 DO Work Phone: 1(461) 118-888402-28-2022 09:20-0500Diastolic blood aogdwuej856 mm[Hg]Graham Fawwad Work Phone: mp940-1415ZN-Hsfkd [facility] 250 DO Work Phone: 1(407) 429-967002-28-2022 09:20-0500Systolic blood tonzmuod286 mm[Hg] Graham Fawwad Work Phone: mp194-3982AF-Ddhnx [facility] 250 DO Work Phone: 1(293) 541-863002-28-2022 09:01-0500Diastolic blood ihpqiukq36 mm[Hg] Shaikh Louisd Work Phone: mp333-6192YS-Mblaw [facility] 250 DO Work Phone: 1(730) 640-417202-28-2022 09:01-0500Systolic blood mm[Hg] Shaikh Brightwad Work Phone: mp674-8038VI-Igsfu [facility] 250 DO Work Phone: 1(344) 362-172702-28-2022 08:51-0500Body .02 cmSrajni Novoawad Work Phone: mp623-5920YA-Rircp [facility] 250 DO Work Phone: 1(479) 893-726202-28-2022 08:51-0500Body mass index (BMI) [Ratio] 33.83 kg/h3AiyzfrShaikh Yaimawwad Work Phone: mp097-8109GP-Ukicx [facility] 250 DO Work Phone: 1(374) 870-669602-28-2022 08:51-0500Body surface area Derived from formula1.9 y1IjgnquShaikh Brightwad Work Phone: mp230-4650SQ-Fzpqo [facility] 250 DO Work Phone: 1(879) 935-299102-28-2022 08:51-0500Body efikvh77.64 kgShaikh Brightwad Work Phone: mp163-3082BH-Qppgs [facility] 250 DO Work Phone: 1(905) 494-645702-28-2022 08:51-0500Diastolic blood idubpotw449 mm[Hg]Shaikh Brightwad Work Phone: mp368-7460XD-Baybk [facility] 250 DO Work Phone: 1(504) 696-842102-28-2022 08:51-0500Heart rate87 /Deyanira Erwinwwad Work Phone: mp153-0175YL-Indox [facility] 250 DO Work Phone: 1(499) 960-779102-28-2022 08:51-0500Systolic blood mm[Hg] Shaikh Yaimawwad Work Phone: mp304-7876IK-Quouo [facility] 250 DO Work Phone: 1(125) 451-906002-28-2022 08:51-15257 1Srajni Erwinwwad Work Phone: mp871-7490HX-Reuqu [facility] 250 DO Work Phone: Comment on above:PHQ-9 LZ38-33-4188 10:00-0500Body ewbzpg373.56 cmDale Gonzalez Other [employer] Other 01-21-2022 10:00-0500Body mass index (BMI) [Ratio] 32.44 kg/m2Dale Carlos Other [employer] Other 01-21-2022 10:00-0500Body fyvqje14.73 kgDale Carlos Other [employer] Other 01-17-2022 10:45-415897 1Srajni Novoawad Work Phone: mp667-0106AY-Ioutx [facility]A [place] Work Phone: Comment on above:QTQOOFCQ4094-43-3415 11:59-0500 Diastolic blood jhbkoceg037 mm[Hg]Shaikh Yaimawwad Work Phone: mp343-6346FK-Xumph [facility] 250 DO Work Phone: 1(287) 252-748201-10-2022 11:59-0500Systolic blood xobiwlrj889 mm[Hg] Graham Yaimawwad Work Phone: mp477-0549ER-Vmnyu [facility] 250 DO Work Phone: 1(936) 396-925001-10-2022 11:13-0500Diastolic blood xmdkccax731 mm[Hg]Graham Fawwad Work Phone: mp855-1711MO-Zbyqo [facility] 250 DO Work Phone: 1(893) 130-949301-10-2022 11:13-0500Systolic blood mdouweqv009 mm[Hg] Shaikh Louisd Work Phone: mp867-6373YQ-GmrrtM [facility] 250 DO Work Phone: 1(536) 819-675301-10-2022 11:12-0500Body iqgmom082.02 cmSrajni Novoawad Work Phone: mp727-2431AG-QqhxaM [facility] 250 DO Work Phone: 1(604) 220-494101-10-2022 11:12-0500Body mass index (BMI) [Ratio]34.9 kg/h0MjcphpShaikh Louisd Work Phone: mp144-2875ZQ-UmkkxM [facility] 250 DO Work Phone: 1(288) 524-238501-10-2022 11:12-0500Body surface area Derived from formula1.92 d4KbghvhShaikh Jeison Work Phone: mp399-5051RL-HsbdtM [facility] 250 DO Work Phone: 1(316) 207-588501-10-2022 11:12-0500Body rxpajl44.36 kgShaikh Jeison Work Phone: mp308-2449IE-OerehM [facility] 250 DO Work Phone: 1(507) 148-297301-10-2022 11:12-0500Diastolic blood gkldiapv248 mm[Hg]Shaikh Louisd Work Phone: mp910-9364RE-ZsociM [facility] 250 DO Work Phone: 1(287) 396-721901-10-2022 11:12-0500Heart rate88 /minSrajni Novoawad Work Phone: mp005-5697ZX-Nkeyy [facility] 250 DO Work Phone: 1(954) 565-934001-10-2022 11:12-0500Systolic blood kmbnczib647 mm[Hg] Graham Yaimawwad Work Phone: mp360-1177YQ-TcamoM [facility] 250 DO Work Phone: 1(153) 337-348901-10-2022 11:07-0500Body qzasdw788.02 cmSrajni Hernadezd Work Phone: mp899-8683BN-Skeph [employer] 250 DO Work Phone: 1(211) 236-774801-10-2022 11:07-0500Body mass index (BMI) [Ratio]34.9 kg/j6GmgmlgShaikh Brightwad Work Phone: mp456-7589JO-Qhqzb [employer] 250 DO Work Phone: 1(232) 133-665601-10-2022 11:07-0500Body surface area Derived from formula1.92 t1Zruvlprock Hernadezd Work Phone: mp569-4607PH-Zmxxn [employer] 250 DO Work Phone: 1(924) 462-276001-10-2022 11:07-0500Body sacnqq55.36 kgShaikh Louisd Work Phone: mp953-6739SE-Pwfko [employer] 250 DO Work Phone: 1(566) 343-547201-10-2022 11:07-0500Heart rate88 /Deyanira Mchugh Work Phone: mp839-1340SL-Tphoz [employer] 250 DO Work Phone: 1(307) 796-892812-07-2021 11:40-0500Body xygjmo477.56 cmJuan Gonzalez Other [facility] Other 12-07-2021 11:40-0500Body mass index (BMI) [Ratio] 32.44 kg/m2Juan Gonzalez Other [facility] Other 12-07-2021 11:40-0500Body sggqej71.73 kgInderjitle Carlos Other [facility] Other 12-07-2021 11:40-0500Diastolic blood usoevpum34 mm[Hg] Juan Gonzalez Other [facility] Other 12-07-2021 11:40-0500Systolic blood mm[Hg] Juan Gonzalez Other [employer] Other Encounters Encounter DateEncounter TypeCare ProviderFacilityStart: 02-08-2025 End: 03-69-7986lomvkiqpfpQwgv J Aichholz INVESTOR-C Work Phone: [facility] Work Phone: Start: 02-08-2025 End: 16-74-7141Lkhrgmr encounter procedureConi Osorio INVESTOR-C-[facility] [employer] Work Phone: Start: 39-20-8227Swsosvd encounter procedureConi Osorio INVESTOR-C Work Phone: [facility] 11-23-2024 End: 91-23-9329Aepbuaimv Result EncounterLisa Elvirahholz INVESTOR Work Phone: [facility] External Department UnsolicitedStart: 11-23-2024 End: 86-76-6891Mcdktbtdb Result EncounterLisa Elvirahholz INVESTOR Work Phone: [facility] External Department UnsolicitedStart: 11-03-2024 End: 73-25-3783clvastpxlgTCYCVUTGX NO [facility] Work Phone: Start: 11-03-2024 End: 30-83-8659Drtwlzg encounter procedureAlta Schmid MD-[facility] Ne[facility]rology [employer] Work Phone: Start: 11-02-2024 End: 83-81-6744Xuprgh flowsheetConi Lawrencez INVESTOR Work Phone: [facility] FMStart: 11-02-2024 End: 32-99-3743Rytpbm flowsheetConi Felixhholz INVESTOR Work Phone: [facility] FMStart: 11-02-2024 End: 76-39-9658Makynid encounter procedureConi Osorio NP Work Phone: [facility] C[facility] FMComment on above:Encounter for Medicare annual wellness exam (Primary Dx); [...] episode of recurrent major depressive disorder (HCC); HypomagnesemiaStart: 11-02-2024 End: 47-11-8068dkzbxrbhgxPAZM AICHHOLZNot AvailableStart: 10-28-2024 End: 63-85-6330Pecnzoyxk Result EncounterConi Osorio INVESTOR Work Phone: noms External Department UnsolicitedStart: 10-28-2024 End: 11-22-6895Vpryrfguj Result EncounterConi Osorio INVESTOR Work Phone: noms External Department UnsolicitedStart: 10-21-2024 End: 47-75-2435LddicvUnok Naderer MD Work Phone: noms CWM FMComment on above:Type 2 diabetes mellitus with stage 3a chronic kidney disease, with long-term current use of insulin (HCC); Chronic diastolic congestive heart failure (HCC); Primary hypertensionStart: 10-05-2024 End: 29-11-3993VbfamtUjqs Aichholz NP Work Phone: noms CWM FMComment on above:Primary hypertension (CMS/HCC) (Primary Dx); Moderate episode of recurrent major depressive disorder (CMS/HCC); Chronic diastolic congestive heart failure (CMS/HCC); Type 2 diabetes mellitus with stage 3a chronic kidney disease, with long-term current use of insulin (HCC) (CMS/HCC); Mixed hyperlipidemia (CMS/HCC); Tobacco dependency; Chronic gout of multiple sites, unspecified causeStart: 09-30-2024 End: 53-12-9095Dynvcih encounter procedurePHYSICIAN [facility] [place] Work Phone: Start: 09-30-2024 End: 36-58-2730mcwndqpzksFMXHFTSBT [facility] Work Phone: Start: 08-08-2024 End: 03-78-0362PtspanSuzh Naderer MD Work Phone: NOMS CWM FMComment on above:Diabetic polyneuropathy associated with type 2 diabetes mellitus (CMS/HCC)Start: 08-03-2024 End: 47-92-3158QxgkgdRncx Naderer MD Work Phone: NOMS CWM FMComment on above:Psychophysiological insomnia; Type 2 diabetes mellitus with stage 3a chronic kidney disease, with long-term current use of insulin (HCC) ([facility]/HCC)Start: 05-24-2024 End: 19-95-8564UaugisMsbwcvuc Carver INVESTOR Work Phone: NOMS CWM FMComment on above:Mixed hyperlipidemia (CMS/HCC)Start: 05-12-2024 End: 56-82-9276AhttdnNgxrkmaz Carver INVESTOR Work Phone: N[facility] CWM FMComment on above:Chronic diastolic congestive heart failure (CMS/HCC); Primary hypertension (CMS/HCC)Start: 05-06-2024 End: 82-25-9086SlhrdmKxcmgnpl Carver INVESTOR Work Phone: NOMS CWM FMComment on above:Diabetic polyneuropathy associated with type 2 diabetes mellitus ([facility]/HCC)Start: 03-22-2024 End: 20-13-1081gijxpsxdhjZoxivbfz N Carver INVESTOR-C Work Phone: [facility] Work Phone: Start: 03-22-2024 End: 92-92-1711Ygfsqug encounter procedureMigel Galiciak INVESTOR-C Work Phone: [facility] Nephrology Jacey Work Phone: Start: 03-14-2024 End: 81-59-3460Cagdstc encounter procedureMigel Galiciak INVESTOR-C Work Phone: [facility] [place] Work Phone: Start: 03-14-2024 End: 88-48-8989gbbnuageufPeeuixpj N Carver INVESTOR-C Work Phone: [facility] Work Phone: Start: 02-15-2024 End: 85-21-9700FfpfacCjbyscqi Fitzpatrick INVESTOR Work Phone: noms CWM FMComment on above:Diabetic polyneuropathy associated with type 2 diabetes mellitus ([facility]/HCC)Start: 01-18-2024 End: 54-79-9370ShrmtwCyaegyywKenya Carver INVESTOR Work Phone: noms CWM FMComment on above:Moderate episode of recurrent major depressive disorder (HCC) ([facility]/HCC)Start: 01-11-2024 End: 00-00-2097VhncztGmnptg Fawwad MD Work Phone: noms CWM FMComment on above:Type 2 diabetes mellitus with stage 3a chronic kidney disease, with long-term current use of insulin (HCC) ([facility]/HCC)Start: 01-06-2024 End: 14-45-0618Cmbgjv outpatient new Jimmy Fulton DPM Work Phone: noms FH PODIATRYComment on above:Dermatophytosis of nail (Primary Dx); Type 2 diabetes mellitus with stage 3a chronic kidney disease, with long-term current use of insulin (HCC) ([facility]/HCC); Diabetic polyneuropathy associated with type 2 diabetes mellitus (CMS/HCC); Dystrophic nailStart: 01-06-2024 End: 77-64-3066nuqlnyodkrOXTCMS A RUSHERNot AvailableStart: 01-06-2024 End: 97-26-5136Ijoabq flowsheetSteven A Rusher DPM Work Phone: noms PODIATRYStart: 01-06-2024 End: 18-94-0785Avujoc flowsheetSteven A Rusher DPM Work Phone: noms PODIATRYStart: 12-14-2023 End: 48-24-4694neakjgnoirGUWGFAOR FITZPATRICKNot AvailableStart: 10-05-2023 End: 19-64-3792hzretonokzXceaayr Vytautas Giedraitis MDFacility:PM Kathy Start: 09-21-2023 End: 66-13-6490snzshewqcxUljycxe Vytautas Giedraitis MDFacility:PM Kathy Start: 09-12-2023 End: 11-47-9686kplkjryahaZX Shaikh Fawwad Work Phone: [facility] Work Phone: Start: 09-12-2023 End: 71-35-8941Ezffwjx encounter procedureMD Shaikh Mchugh Work Phone: [facility] [place] Work Phone: Start: 08-05-2023 End: 41-51-2765icbtcyvybiZS Shaikh Fawwad Work Phone: [facility] Work Phone: Start: 08-05-2023 End: 59-92-1667Mlrfhey encounter procedureMD Shaikh Mchugh Work Phone: [facility] Ambulatory Work Phone: Start: 07-78-7908Jdvnyteepe RecurringMD Shaikh Mchugh Work Phone: [facility] Work Phone: Start: 06-24-2023 End: 22-98-4302marmvnybzjDK Shaikh Fawwaalex Work Phone: [facility] Work Phone: Start: 06-24-2023 End: 87-99-0380Igtukyc encounter procedureMD Shaikh Hernadezalex Work Phone: [facility] Work Phone: Start: 50-33-6140Yapghxpgxr RecurringMD Shaikh Hernadezalex Work Phone: [facility] Work Phone: Start: 06-01-2023 End: 29-20-5830ugvsvmuclbUnsgmsk Vytautas Giedraitis MDFacility:PM Kathy Start: 05-11-2023 End: 85-35-1162qmjnlavwyoHrgevxs Vytautas Giedraitis MDFacility:[facility] [place] Start: 04-13-2023 End: 80-83-0287opkgriskehVsxh Fitt Other [employer] Other Start: 08-12-8718Lfwruru encounter procedureSteven Donaldo LAST Work Phone: [facility] HospitalStart: 98-25-1717Iivlpixja encounter Neena VanessaCrawford County Memorial Hospitaltart: 04-06-2023 End: 09-71-5542erqeqqabenNuwkzfx Vytautas Giedraitis MDFacility:[facility] [place] Start: 03-24-2023 End: 12-09-9787piscpoeycdSX Shaikh Fawwaalex Work Phone: [facility] Work Phone: Start: 03-24-2023 End: 16-01-6711Zidessduke RecurringMD Shaikh Mchugh Work Phone: [facility] Work Phone: Start: 03-11-2023 End: 57-45-3819cozqhqsnmfRpwvc Sharmaine Other [employer] Other Start: 94-30-5786Wyqhzi outpatient visit 25 minutes Alta QadirFPG [facility] Falls ChurchStart: 03-04-2023 End: 83-39-0622irwopjdwglWW Shaikh Yaimawaleska Work Phone: [facility] Work Phone: Start: 03-04-2023 End: 12-09-5746Xqkmttm encounter procedureMD Jeison Work Phone: [facility] [place] Work Phone: Start: 93-87-5408Reelek outpatient visit 15 minutes Graham Jeison Work Phone: [phone]-Tlviq [facility] [address] DO Work Phone: Start: 34-37-5157Avafsnx encounter Jeff Mchugh Work Phone: [phone]-Zussy [facility] [address] DO Work Phone: Start: 71-05-3739yjnddvcwnjBdLois Madison IIFacility:[id number]: 11-10-2022 End: 97-93-1354wwffqqgnxbStmpjngNasra Dunaway MDFacility:PM Kathy Start: 06-62-2162epridfyqdbEWOBAV H FAWWADFacility:T1Jokzt: 07-17-2022 End: 09-80-2223rcbjbpjpcfDHVNPJ H FAWWADFacility:G0Cifwp: 38-52-9339Mq Renewal Grahamsena Mchugh Work Phone: [phone]-Hipto [facility] DO Work Phone: Start: 06-28-2022 End: 30-72-9279ybrqylclspMGRFTM H FAWWADFacility:D5Ybzfw: 32-55-0978vnkmmrsaykDD ELIGIO HODGE .Facility:D6Lrfds: 05-27-2022 End: 34-81-7004ibhpnakgteWF ELIGIO S HODGE .Facility:C8Uemcu: 05-13-2022 End: 65-82-8759wlwgbaqtbnPV ELIGIO S HODGE .Facility:Y9Tkikr: 04-10-2022 End: 71-65-8048pwyzensfasUS ELIGIO Katy HODGE .Facility:H6Czdcw: 02-17-2022 End: 64-63-4252vsscitzintMEIXAU H FAWWADFacility:I8Rhkof: 99-78-5099bopwvmheyh Dr. Shashi Madison IIFacility:06892Vnram: 01-09-2022 End: 47-19-3475xpksswnyoxCWIMOV H FAWWADFacility:O5Ddzlp: 11-28-2021 End: 65-73-1990ckfsjjofloPEAXEI H FAWWADFacility:A6Hshjk: 10-17-2021 End: 11-57-8376frznqmhwbsTYEA SOLIS .Facility:C3Aasdf: 61-17-4823IVEVVDpakcr Fawwad Work Phone: [phone]-Zghlq [facility] DO Work Phone: Start: 99-14-3222GED, Provider: Shashi Madison, Status: Pen, Time: 10:50 [facility] HOSPITALhaiteresa Fawwad Work Phone: [phone]-Avoom [facility] DO Work Phone: Start: 94-17-7210Lalje [facility]kh Fawwad Work Phone: [phone]-Isltt [facility] DO Work Phone: Start: 05-24-2021 End: 65-20-2910hfpxxclztgPsee Braun Other [employer] Other start: 99-45-0083Zttoed outpatient visit 15 minutes Juan CarlosEmerald-Hod[facility] NeurosurgeryStart: 02-85-5772Prhfhxg encounter procedureSalisonteresa Mchugh Work Phone: [phone]-Hpjdi [facility] [address] [place] Work Phone: Start: 47-81-6976Iicddx consultation new/estab patient 60 minShaiteresa Mchugh Work Phone: [phone]-Gqgfx [facility] DO Work Phone: Start: 04-09-2021 End: 94-36-8856meurecodqcEeep Gonzalez Other [employer] Other start: 58-65-0940Gkuacd outpatient new [facility] [place] Procedures DateProcedureProcedure DetailPerforming ClinicianStart: 69-34-1307IP LUNG SCREENING LOW DOSELisa Aichholz INVESTOR Work Phone: Start: 56-93-1057TUX CBC WITH AUTO DIFFLisa Aichholz INVESTOR Work Phone: Start: 07-03-2023 End: 13-50-9881Olmrhixxb mammography of bilateral breastsMD Shaikh Jeison Work Phone: Start: 19-76-3658Hkoys cultureMD Grahamsena Mchugh Work Phone: Start: 36-91-9386EcwmlmlddycprapsDricls Fawwad Work Phone: Cardiac catheterizationrock Mchugh Work Phone: Cholecystectomyrock Mchugh Work Phone: Dilation and curettageSrockcastle regional hospitalteresa Mchugh Work Phone: Total colonoscopyrock Mchugh Work Phone: Plan of Treatment DateCare ActivityDetailAuthorStart: 75-77-5355Vwbtisfwf for malignant neoplasm of colonNOVA HealthcareStart: 11-06-2025 End: 19-44-5882Vqeavcg encounter rxupjrjsx66/06/2026 10:30 AM EDT [facility] [address] [place] [address] Coni Osorio, DENA [address] [place] [address] N[facility] FMStart: 07-02-2026Medicare Annual Wellness (AWV) Medicare Annual Wellness (AWV)[facility] HealthcareStart: 63-06-0215Tzoxk screening for proteinDiabetes: Urine Protein ScreeningHUNTSMAN MENTAL [facility]ALTH [facility]STITUTE HealthcareStart: 05-08-2025 Glaucoma screeningDiabetes: Retinopathy ScreeningHUNTSMAN MENTAL [facility]ALTH [facility]STITUTE HealthcareStart: 91-46-8629Agipsjmctw A1c measurementDiabetes: Hemoglobin A4BYPHC Healthcare Start: 01-10-2025 End: 07-34-3634Amdxthl encounter xhpttmcat76/09/2025 8:30 AM EDT Office Visit NOMS [facility] [address] [place] [address] Coni Osorio, INVESTOR [address] [place] [address] [facility] FMStart: 01-04-2025 End: 53-58-1240Fzhzdgi encounter iekpqhxbh84/03/2025 9:20 AM EDT Office Visit N[facility] [address] [place] [address] Coni Osorio, INVESTOR [address] [place] [address] N[facility] FMStart: 54-76-2266Syatxwjms vaccinationNOVA HealthcareStart: 11-02-2024 End: 23-04-1117YF Chest for screening WO contrastCT lung screening low dose Imaging Routine Cigarette nicotine dependence without complication Expected: 11/02/2024, Expires: 11/02/2025[facility] Work Phone: Comment on above:Expected: 11/02/2024, Expires: 11/02/2025Start: 11-02-2024 End: 98-38-9525RL Breast - bilateral ScreeningBilateral screening mammogram Imaging Routine Encounter for screening mammogram for malignant neoplasm of breast Expected: 11/02/2024 (Approximate), Expires: 01/03/2026[facility] Comment on above:Expected: 11/02/2024 (Approximate), Expires: 01/03/2026Start: 11-02-2024 End: 86-06-3965Jcixxum encounter procedureNOMS [facility] FMComment on above:Diabetic polyneuropathy associated with type 2 diabetes mellitus [...] Mixed hyperlipidemia ; Cigarette nicotine dependence without complicationStart: 10-05-2024 End: 03-63-8346WIW W Auto Differential panel - BloodCBC and differential Lab Routine Tobacco dependency Expected: 10/05/2024 (Approximate), Expires: 08/2025[facility] Work Phone: Comment on above:Expected: 10/05/2024 (Approximate), Expires: 10/05/2025Start: 10-05-2024 End: 42-78-6765Xnnlliboesyqd metabolic 2000 panel - Serum or PlasmaComprehensive metabolic panel Lab Routine Primary hypertension (CMS/HCC) Chronic diastolic congestive heart failure (CMS/HCC) Type 2 diabetes mellitus with stage 3a chronic kidney disease, with long-term current use of insulin (HCC) (CMS/HCC) Mixed hyperlipidemia (CMS/HCC) Chronic gout of multiple sites, unspecified cause Expected: 10/05/2024 (Approximate), Expires: 10/05/2025[facility] HealthcareComment on above:Expected: 10/05/2024 (Approximate), Expires: 10/05/2025Start: 10-05-2024 End: 94-58-9502Penmrbdvpd A1c/Hemoglobin.total in BloodHemoglobin A1c Lab Routine Type 2 diabetes mellitus with stage 3a chronic kidney disease, with long-term current use of insulin (HCC) ([facility]) Expected: 10/05/2024 (Approximate), Expires: 10/05/2025NOVA HealthcareComment on above:Expected: 10/05/2024 (Approximate), Expires: 10/05/2025Start: 10-05-2024 End: 55-56-3069Scgik 1996 panel - Serum or PlasmaLipid panel Lab Routine Mixed hyperlipidemia ([facility]) Expected: 10/05/2024 (Approximate), Expires:10/05/2025 NOMS HealthcareComment on above:Expected: 10/05/2024 (Approximate), Expires: 10/05/2025Start: 10-05-2024 End: 13-41-4885Jmthmikhochq/Creatinine panel in random UrineMicroalbumin / creatinine, urine ratio Lab Routine Primary hypertension ([facility]) Type 2 diabetes mellitus with stage 3a chronic kidney disease, with long-term current use of insulin (HCC) ([facility]) Expected: 10/05/2024 (Approximate), Expires: 10/05/2025[facility] HealthcareComment on above:Expected: 10/05/2024 (Approximate), Expires: 10/05/2025Start: 10-05-2024 End: 13-13-9229Gzvus [Mass/volume] in Serum or PlasmaUric acid Lab Routine Chronic gout of multiple sites, unspecified cause Expected: 10/05/2024 (Approx imate), Expires: 10/05/2025NOVA HealthcareComment on above:Expected: 10/05/2024 (Approximate), Expires: 10/05/2025Start: 10-05-2024 End: 80-31-9905Khzkjyigze complete panel - UrineUrinalysis with reflex microscopic (clean catch) Lab Routine Primary hypertension ([facility]) Type 2 d iabetes mellitus with stage 3a chronic kidney disease, with long-term current use of insulin (HCC) ([facility]/HCC) Tobacco dependency Expected: 10/05/2024 (Approximate), Expires: 10/05/2025NOVA HealthcareComment on above:Expected: 10/05/2024 (Approximate), Expires: 10/05/2025Start: 88-29-4673Swbnm screening for proteinDiabetes: Urine Protein ScreeningHUNTSMAN M[facility] HealthcareStart: 07-02-2024 Screening for malignant neoplasm of breastMammogramNOVA HealthcareStart: 06-29-2024 End: 67-59-2835Nqqvezt encounter arwywdssu29/26/2025 1:15 PM EST Procedure Visit [facility] [address] [place] [address] Nadja Fulton DPM [address] [place] [address] [facility] P[facility]IATRYStart: 05-18-2024 End: 76-26-5426Hlhqnsk encounter /15/2025 1:00 PM EST Procedure Visit [facility] [address] [place] [address] Nadja Fulton DPM [address] [place] [address] [facility] PODIATRYStart: 12-11-2024Medicare Annual Wellness (AWV)Medicare Annual Wellness (AWV)NOM HealthcareStart: 03-15-2024 End: 09-89-3367Zopzanj encounter vobzqjatc37/12/2024 9:00 AM EST Office Visit [facility] [address] [place] [address] Migel Carver NP [address] [place] [address] N[facility] FMStart: 01-06-2024 End: 94-26-8969Woxsrnd encounter eeorxelzh45/04/2024 3:30 PM EDT Office Visit [facility] [address] [place] [address] Nadja Fulton DPM [address] [place], [place] [address] Type 2 diabetes mellitus with stage 3a chronic kidney disease, with long- term current use of insulin (HCC) ([facility]); Diabetic polyneuropathy associated with type 2 diabetes mellitus ([facility] PODIATRYComment on above:Type 2 diabetes mellitus with stage 3a chronic kidney disease, with long-term current use of insulin (HCC) ([facility]); Diabetic polyneuropathy associated with type 2 diabetes mellitus ([facility])Start: 33-07-3087Dbhqyrhud vaccinationInfluenza Vaccine (#1)[facility] HospitalStart: 59-70-9918Dvitlvmxpg A1c measurementDiabetes: Hemoglobin Y1GYTAYEllett Memorial Hospital Start: 01-12-2524Xlrvwiz [facility] Work Phone: Start: 22-50-5538Mfhpevxc identified in Urine by TriHealthtart: 22-95-3990TMC, Provider: Shashi Madison, Status: Pen, Time: 3:20 PMFUV, Provider: Shashi Madison, Status: Pen, Time: 3:20 PMStephanie [place] [address] DO Work Phone: Start: 93-63-8907SYE, Provider: Shashi Madison, Status: Pen, Time: 2:00 PMFUV, Provider: Shashi Madison, Status: Pen, Time: 2:00 [facility]MAustin [facility] 250 DO Work Phone: Start: 31-21-0999ZGR, Provider: Shashi Madison, Status: Pen, Time: 8:40 AMFUV, Provider: Shashi Madison, Status: Pen, Time: 8:40 AMAustin [facility] Clinic [address] [place] Work Phone: Start: 77-73-5387NVG, Provider: Shashi Madison, Status: Pen, Time: 10:50 AMFUV, Provider: Shashi Madison, Status: Pen, Time: 10:50 AMMPMayo Clinic Health [facility] 250 DO Work Phone: Start: 56-53-7745HKVS, Provider: JACEY HHVI ULTRASOUND 01,[id number], Status: Pen, Time: 10:45 AMECHO, Provider: JACEY HHVI ULTRASOUND 01,[id number], Status: Pen, Time: 10:45 [facility] 250 DO Work Phone: Start: 28-00-2650Hboxqitdy for malignant neoplasm of colonNOVA HealthcareStart: 55-41-1429Civekbafn for malignant neoplasm of lung Lung Cancer Screening Shared Decision MakingHeartland Behavioral Health Services Breast - bilateral ScreeningThe Bellevue HospitalPatient referralOhio[facility] Work Phone: Renal function 1999 panel - Serum or PlasmaThe Bellevue HospitalRenal function 1999 panel - Serum or [facility] Immunizations Immunization DateImmunizationNotesCare UdfmoxssUolcmmtw14-29-9855hjllglcqxgda polysaccharide vaccine, 23 valentShaikh Fawwad Work Phone: [phone]-UyidvStephanie Ville [address] DO Work Phone: [phone]-59 Vaccine Moderna - Documentation Purposes OnlyDale Carlos Other [facility]01-01-2021 pneumococcal conjugate vaccine, 13 valentShaikh Fawwad Work Phone: [phone]-WxkwfBrittany Ville [address] DO Work Phone: Comment on above:Series:58-58-1134Xjejgcqko, injectable, Madin Kyra Canine Kidney, preservative free, quadrivalentShaikh Fawwad Work Phone: JE-KnlamBrittany Ville [address] DO Work Phone: [phone]y virus vaccine, unspecified formulationSteven Ninoher DPM Work Phone: [facility] HospitalXbozbzwybz62-91-2095Wjhnavaxusj 0.5 ML Intramuscular Suspension Prefilled SyringeShaiteresa Fawwad Work Phone: [phone]-LcyglAustin [facility] and Clinic 250 DO Work Phone: [phone]w, injectable, quadrivalent, preservative freeaikh Fawwad Work Phone: [phone]-JtsmsAustin Hospital and Clinic 250 DO Work Phone: Payers DatePayer CategoryPayerHelen M. Simpson Rehabilitation Hospitaly [id number]-ngy [id number] MEDICARE ADVANTAGE HUMANA MEDICARE [id number] 2022-Present [address] [place] [address] [id number] 2023Medicare (Managed Care)HUMANA MEDICARE ADVANTAGE [id number] Health [id number] 2.16.840.2.808672.47203599-46-1898Zwrsxcm [id number] 06.19.840.1.121942.3.57[id number] 2.16.840.1.503241.3.57[id number] 2.16.840.1.423234.3.57[id number] 2.16.840.1.934334.3.57[id number] 2.16.840.1.949569.3.57[id number] 2.16.840.1.318447.3.57[id number] 2.840.1.110592.3.57[id number] 2.840.1.639748.3.57[id number] 2.840.1.418497.3.57[id number] 2.840.1.038905.3.57[id number] 2.840.1.710903.3.57[id number] 2.840.1.747557.3.57[id number] 2.840.1.704882.3.57[id number] 2.16840.1.274442.3.57[id number] 2.840.1.719015.3.57[id number] 2.16.840.1.796718.3.57[id number] 2.16.840.1.199163.3.57[id number] 2.16.840.1.839193.3.57[id number] 2..840.1.073572.3.57[id number] 2.16.840.1.173043.3.57[id number] 2.16.840.1.000089.3.57[id number] 2..840.1.908328.3.57[id number] 2.16.840.1.26560[id number] 2.16.840.1.637238.19Unknown [id number] 2.16.840.1.6[id number] 2.16.840.1.383908.3.579.2.531 Social History DateTypeDetailFacilityStart: 04-09-2023 End: 85-10-4234Gvfpc caffeine consumptionDaily caffeine consumptionNOI-70 Community HospitalComment on above:2-3 cups of coffee daily.;1/2 pack daily.;Start: 04-09-2023 End: 08-43-2350Vbn [facility]igned At [facility] CenterStart: 01-24-2021 End: 09-75-6075Zvcgali smoking status NHISSmoker (finding)[facility] Clinictart: 89-64-3378Yus Assigned At [facility] Main Campustart: 12-14-2023 End: 61-40-5330Haobtis smoking status NHISSmokes tobacco dailyNOMS Healthcare History of tobacco useCigarette SmokerNOVA HealthcareHistory of tobacco use Passive smokerNOMS HealthcareStart: 84-39-4354Hyfklyd use and exposureSmokeless tobacco non-userNOMS HealthcareStart: 01-06-2024 End: 05-42-4072Kxkjiecqe beverage intakeLifetime non-drinker (finding)NOM HealthcareWithin the last year, have you been afraid of your partner or ex-partner?NoNOMS HealthcareAre you now , , , , never or living with a partner?MarriedNOMS HealthcareHow often to you have a drink containing alcohol?NeverNOMS HealthcareHow many standard drinks containing alcohol do you have on a typical day?Patient does not drinkNOMS HealthcareDo you feel stress - tense, restless, nervous, or anxious, or unable to sleep at night because yourmind is troubled all the time - these days [OSQ] Only a littleNOMS Healthcare(I/We) worried whether (my/our) food would run out before (I/we) got money to buy more.Never trueNOMS HealthcareStart: 1955 Sex assigned at birthNot on fileNOVA HealthcareStart: 03-15-2024 End: 68-77-9498MawXzckmn (finding)[facility] Medical Equipment Procedure CodeEquipment CodeEquipment Original TextEquipment IdentifierDates1 strip by In Vitro route 5 (five) times a [id number], [id number], [id number], [id number]: 11-12-2023 End: 02-10-2025 Functional Status UoikNbgqrbaboyMiynjrQqdjepyo64-12-7058Bsctgiu Health Questionnaire 2 item (PHQ- 2) [Reported][facility] HospitalZabgxctzru72-74-2595ZXU-4JTZ6VTCQTM Mild (5-9)-[facility] [address] DO Work Phone: [facility] Clinical Notes 12-03-2019 to 11-02-2024 Note Date & [id number] History of Present illness Narrative* Conirhianna Osorio NP - 11/02/2024 12:52 PM EDTAssociated Problem(s): Encounter for Medicare annual wellness exam Reviewed Ht/Wt/BMI Recommend eye exam yearly Recommend dental exams twice a year Balance work/leisure activities Exercises is recommended most days of the week (appropriate as chronic conditions allow) Follow up yearly and prn; * [place] RODRIGUEZ - 11/02/2024 10:00 AM EDT Last seen in office on 12/14/23 TYPE 2 DIABETES: glipizide and novolin Sees nephrology for stage 3 CKD Referral sent for podiatry for DM foot care HYPERLIPIDEMIA: HTN: losartan-hydrochlorothiazide,metoprolol, bumex and asprin 81 Sees cardiology in [place] Recommend BP log COPD: trelegy ellipta LUMBAR [...] out of it for about a month Rusty needs a new prescription Pt states migel [...] cigarettes daily No living will no POA * Coni Osorio NP - 11/02/2024 10:00 AM EDT Images from the original note were [...] Hospitalizations in the last year: no Specialist: Sharmaine, Jeanette Mgmt HCPOA/Living Will:- no Concerns: Hypertension This is [...] compliance problems. There is no history of C AD/HI or heart failure. Diabetes She presents for her follow-up diabetic visit. She has type 2 diabetes mellitus. Her disease coursehas been fluctuating. There are no hypoglycemic associated symptoms. Pertinent negatives for hypoglycemia include no dizziness, headaches, nervousness/anxiousness, seizures or tremors. Associated symptoms include foot paresthesias and weight loss. Pertinent negatives for diabetes include no blurredvision, no chest pain, no polydipsia, no polyphagia, no polyuria and no visual change. There are nohypoglycemic complications. Symptoms are worsening. Diabetic complications include [...] 1 tablet (0.5 mg) by mouth Daily Yemrggqvnxo-Iglaenbzk-Polril (Trelegy Ellipta) 200-62.5-25 MCG/ACT aerosol powder 1 puff, Inhalation, Daily, Rinse mouth after use gabapentin (NEURONTIN) 300 mg, 4 times daily glipiZIDE (GLUCOTROL) 10 mg, Oral, 2 times daily before meals Glucose Blood (BLOOD GLUCOSE TEST STRIPS 333 ) 1 strip, 5 times daily glucose blood (Surface MedicalTouch Ultra Blue Test) test strip 1 each, [...] seen by NS. CHF (congestive heart failure) ([facility]) Chronic constipation uses Colace, refill requested Chronic heart failure with preserved ejection fraction (HCC) Last 2D ECHO 2019, LVH, no sig valvular pathology Chronic obstructive pulmonary disease, unspecified COPD type ([facility]) Patient instructed to stop turdorza, start anoro ellipta daily, rince mouth after use. Due to formulary. 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 Poorly controlled due to pain Gout H. pylori infection Hx of degenerative disc disease 04/08/2023 Hyperkalemia 10/04 today shows K+=5.3 improvement from this weekend. [...] disease, with long-term current use of insulin ([facility]) Check blood sugars daily, notify if <70 [...] 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) Current meds: trelegy Relevant Medications Mdglmoalkeo-Pkcdupjqw-Lgczrd (Trelegy Ellipta) 200-62.5-25 MCG/ACT aerosol powder Chronic [...] origin (HCC) Chronic kidney disease, stage 3a ([facility]) Control blood sugar as well as blood pressure Monitor labs Cigarette nicotine dependence without complication The patient has been advised of the risks of continued smoking: stroke, HI, all forms of cancer, lung disease, and . Options for quitting smoking include: cold turkey, hypnosis, acupuncture, nicotine replacement meds(gum, lozenges, and patches), Buproprion, and Varenicline. At this time pt is encouraged to evaluate their goals for wanting to quit smoking, and reach out toprovider when ready to start this process Relevant Orders CT lung screening low dose Hypomagnesemia Relevant Medications magnesium oxide (Mag-Ox) 400 (240 Mg) MG tablet * Coni Osorio NP - 11/02/2024 7:17 AM EDTAssociated Problem(s): Cigarette nicotine dependence without complication The patient has been advised of the risks of continued smoking: stroke, HI, all forms of cancer, lung disease, and . Options for quitting smoking include: cold turkey, hypnosis, acupuncture, nicotine replacement meds(gum, lozenges, and patches), Buproprion, and Varenicline. At this time pt is encouraged to evaluate their goals for wanting to quit smoking, and reach out toprovider when ready to start this process * Coni Osorio NP - 11/02/2024 7:17 AM EDTAssociated Problem(s): Mixed hyperlipidemia On statin therapy Check labs yearly and prn dose changes * Coni Osorio NP - 11/02/2024 7:16 AM EDTAssociated Problem(s): Type 2 diabetes mellitus with stage 3a chronic kidney disease, with long-term current use of insulin ([facility]) Check blood sugars daily, notify if <70 [...] and asa A1c: 10.4 % on 10/28/24 * Coni Osorio NP - 11/02/2024 7:15 AM EDTAssociated Problem(s): Chronic kidney disease, stage 3a ([facility]) Control blood sugar as well as blood pressure Monitor labs * Coni Osorio NP - 11/02/2024 7:13 AM EDTAssociated Problem(s): Chronic gout of multiple sites Allopurinol Check labs yearly and prn dose changes or changes in sxs * Coni Osorio NP - 11/02/2024 7:12 AM EDTAssociated Problem(s): Chronic diastolic congestive heart failure (HCC) Losartan/hydrochlorothiazide, b shirley, diuretics * Coni Osorio NP - 11/02/2024 7:12 AM EDTAssociated Problem(s): Psychophysiological insomnia Trazodone for sleep * Coni Osorio NP - 11/02/2024 7:12 AM EDTAssociated Problem(s): Primary hypertension Please check blood pressure daily and record DASH diet Limit caffeine Take medication as directed Contact office if chest pain, pressure, dizziness, shortness of breath, swelling legs Recommend slow position changes Current meds: losartan/hydrochlorothiazide, b shirley * Coni Osorio NP - 11/02/2024 7:11 AM EDTAssociated Problem(s): RLS (restless legs syndrome) mirapex * Coni Osorio NP - 11/02/2024 7:11 AM EDTAssociated Problem(s): 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) Current meds: trelegy * Coni Osorio NP - 11/02/2024 7:10 AM EDTAssociated Problem(s): Diabetic polyneuropathy associated with type 2 diabetes mellitus (HCC) Freq foot exams Proper fitting shoes Good blood glucose control documented in this [facility]07-02-2025 Instructions* Patient Instructions* Coni Osorio NP - 11/02/2024 10:00 AM EDT 25 units twice a day Mammogram and lung cancer screening CT : [facility], they should call you, if not in 2 weeks call them: [phone] documented in this [facility] HospitalRbqrsopmif24-33-2737 Evaluation note* Diagnosis Tobacco dependency- Primary Tobacco [...] dependence without complication documented in this encounter [facility] [id number] Evaluation note* Diagnosis Tobacco dependency- Primary Tobacco [...] of magnesium metabolism documented in this encounter [facility] [id number] Telephone encounter Note* Telephone Encounter - Coni [...] she keeps her scheduled appt for November [facility] [id number] Miscellaneous Notes* Telephone Encounter - Coni Osorio [...] scheduled appt for November documented in this encounterEllett [facility] [id number] Evaluation note* Diagnosis Tobacco dependency- Primary Tobacco use disorder Type 2 diabetes mellitus with stage 3a chronic kidney disease, with long-term current use of insulin (HCC) (CMS/HCC) Mixed hyperlipidemia (CMS/HCC) Mixed hyperlipidemia Pulmonary emphysema, unspecified emphysema type (CMS/HCC) Primary hypertension ([facility]/HCC) Unspecified essential hypertension Encounter for screening for [...] diabetes mellitus (CMS/HCC) documented in this encounter [facility] [id number] Evaluation note* Diagnosis Tobacco dependency- Primary Tobacco [...] insulin (HCC) (CMS/HCC) documented in this encounter [facility] HospitalGaqyuoqgcj87-36-3104 Evaluation note* Diagnosis Tobacco dependency- Primary Tobacco [...] (CMS/HCC) Mixed hyperlipidemia documented in this encounter [facility] [id number] History of Present illness Narrative* Nadja Fulton DPM - 01/06/2024 3:30 PM EDT Images from the original note were not included. Subjective Patient ID: Vidhya Amilcar Ibarra is a 68 y.o. female who presents for DM Foot Care (Vidhya Ibarra 68yoNew patient with referral from [facility], for Diabetic foot exam, neuropathic. BS 140 A1C7.5 Migel [facility] 12/14/2023 SS 8). HPI Initial patient encounter [...] once daily, Disp: 90 tablet, Rfl: 1 Aekpevudrtu-Pdzrqgxvw-Wqsocz (Trelegy Ellipta) 200-62.5-25 MCG/ACT aerosol powder , [...] Radha Otto Varicose veins Hypertension Mother Radha Coumatthew Heart disease Mother Radha Couch Diabetes Mother Radha Couch Cancer Mother Radha Couch Cancer Father Sara Otto Hypertension Father Sara Couch Diabetes Father Sara Otto Alcohol abuse Father Sara Otto Cancer Child [...] understanding. Nadja Fulton DPM documented in this [facility]09-04-2024 Instructions* Patient Instructions* Nadja Fulton DPM - 01/06/2024 3:30 PM EDT Instructions as noted documented in this [facility]11-08-2023 Evaluation note* Encounter Date Diagnosis Assessment Notes Treatment Notes Treatment Clinical Notes Mar, Diabetes mellitus with chronic k idney disease (ICD-10 - E11.22) Continue insulin Levemir. Continue follow with PCP for DM management. Continue losartan. Mar,hronic kidney disease, stage III (moderate) (ICD-10 - N18.30)She has CKD due to longstanding DM and HTN. Her baseline serum creatinine is 1.5-1.7 mg/dl. Her renal function has likely declined due to the progression of CKD in setting of uncontrolled DM and HTN.Her renal US in 2019 showed unremarkable kidneys. She has no hematuria and proteinuria. I have d/w her the improtance of good DM and HTN control to slow down the progression of CKD Mar,Hypertensive chronic kidney disease w stg 1-4/unsp chr kdny (ICD-10 - I12.9)Her blood pressure is Controlled and she appears to be euvolemic. Continue current antihypertensivemedication. Mar,Secondary hyperparathyroidism (ICD-10 - N25.81)MBD parameters including calcium, phosphorus, PTH and vitamin D are within the goal. Continue oral vitamin D supplement. Mar,Hepatic cyst (ICD-10 - K76.89)She oliva liver cyst in her which was also present on CT scan ordered by Dr. Moser in 2017. She opted against the follow up with GI Mar,Hyperuricemia (ICD-10 - E79.0)She has hyperuricemia due to the CKD but denies any recent gout flare. Will monitor without any medication. Mar,Leukocytosis (ICD-10 - D72.829)She has a persistent leukocytosis due to the unclear etiology. I have referred her to the hematology for further work-up. Mar,Hypomagnesemia (ICD-10 - E83.42)She has hypomagnesemia due to the diuretics as renal magnesium wasting. I have prescribed oral magnesium once daily. [facility] Other 03-16-2023 NotePAIN MANAGEMENT CONSULTATION CONSULTATION DATE: [...] in three months' time unless otherwise indicated.[facility] [id number] NoteCONSULTATION CONSULTATION DATE: 04/10/2022 HISTORY OF PRESENT [...] weeks ago, and she completed those in [place]. She is continuing her home exercises as [...] thereafter. Patient does agree with this plan.[facility] HospitalHudpeqpc14-66-3099 NoteCONSULTATION CONSULTATION DATE: 01/09/2022 HISTORY OF PRESENT [...] weeks. Patient prefers to do this in [place]. She will be followed up in the office in three months' time and was encouraged to take a multivitamin daily. Patient agrees with this plan of care. [facility] HospitalHpmsrelj08-82-8578 NoteCONSULTATION CONSULTATION DATE: 10/17/2021 HISTORY OF PRESENT [...] in three months' time unless otherwise indicated. [facility] Signed and Approved by: EVA ROSEN . 10/30/2021 16:23:00[facility]06-16-2022 NoteCONSULTATION PROCEDURE DATE:10/17/2021 PREOPERATIVE DIAGNOSIS: Bilateral [...] will be followed up in the office. [facility] Signed and Approved by: EVA ROSEN . 10/30/2021 16:23:00[facility]01-21-2022 Evaluation note* Encounter Date Diagnosis Assessment Notes Treatment Notes Treatment Clinical Notes May, Cervical disc displacement (ICD- 10 - M50.20) I have independently reviewed the plain x-ray of the cervical spine on flexion and extension showing little movement at the C5-6 and C6-7 disc space. Her MRI showed a large C6-7 disc on the right andC5-6 foraminal narrowing. Today clinically the patient has complete relief of symptoms with good arm strength. She is welcome to come back should a new symptom arise; at this point no intervention isneeded. [facility] Other 12-07-2021 Evaluation note* Encounter Date Diagnosis Assessment Notes Treatment Notes Treatment Clinical Notes Apr, Cervical disc disord er at C5-C6 level with radiculopathy (ICD-10 - [...] discectomy structural allograft fusion and plate C5-7. Apr,ervical disc disorder at C6-C7 level with radiculopathy (ICD-10 - M50.123) Apr,ardiomegaly (ICD-10 - I51.7) [facility] Other 01-15-2021 History of Present illness Narrative* [...] will follow-up after testing is completed [facility] Work Phone: [phone]) 231-470301-10-2021 History of Present illness Narrative* Patient is [...] she will follow-up after testing is completed [facility] [address] DO Work Phone: [phone]) 737-264808-01-2020 History general Narrative - Reported* Type Description Date Medical History TYPE II DIABETES Medical HistoryHYPERTENSIONMedical HistoryENLARGE HEARTSurgical History CHOLECYSTECTOMYHospitalization HistoryPNEUMONIA12/2019 [facility] Other chief complaint Narrative - ReportedLINDA FRED is being seen for a consultation for [facility]galy.[facility] DO Work Phone: Chief complaint Narrative - ReportedLINDA FRED is being seen for a consultation for cardiomegaly.[facility] Work Phone: Consult note Author Yakelin Canalesevan [facility] March 25, 2023 10:10amNote Date/TimeMarch 24, 2023 1:49pmUvalde [facility] [place] [address] Hem/Onc Consult Note - OP Signed Patient: Vidhya Ibarra MR#: [id number] : 1955 Acct:[id number] Age/Sex: 67 / F Type: REG RCR [...] history of cancer. Family cancer history includes herfather with unk type of metastatic cancer and [...] chest pain. Has some restless legs, muscle cramps,and hair thinning. She denies ice cravings, black [...] any worse than it does when touched. [facility] - Medical History Medical History: Medical History [...] related to her breast infection. If differential notesincrease in neutrophils, will hold off on additional work-up until she completes antibiotics and mammogram, then will repeat labs and follow-up. She is in agreement with this plan and has no questions. - Time with Patient Coordination of Care & Counseling Time: Greater than 50% of time spent with patient was for coordination of care (as documented) and wcwm-vd-zhhy counseling of patient and/or family. Dictated By: Yakelin Staley APRN DD/ 1349 Signed By: <Electronically signed by JOSE Staley> 03/25/23 1010 [facility] Work Phone: Evaluation noteNo assessment information available [facility] Work Phone: Evaluation noteNo [facility] [employer] Other Evaluation note* Diagnosis Onset Date Resolution Status Leukocytosis acuteBreast noduleacuteLeukocytosisacuteRecurrent boilsacuteYeast infectionacute [facility] Work Phone: Evaluation note* Diagnosis Onset Date Resolution Status Breast nodule acuteLeukocytosisacuteRecurrent boilsacuteYeast infectionacuteLeukocytosisacute Breast noduleacuteLeukocytosisacuteRecurrent boilsacuteYeast infectionacute [facility] Work Phone: Evaluation note* Diagnosis Tobacco dependency- [...] diabetes mellitus (CMS/HCC) documented in this encounter [facility] HealthcareEvaluation note* Diagnosis Onset Date Resolution Status Admit Date CKD (chronic kidney disease) stage 3, GF R 30-59 ml/min acuteNov2023 11:14amHepatic cystacuteMarch 22, 2024 11:14am Hypertensive chronic kidney disease with stage 1 through stage 4 chronic kiacute March 22, 2024 11:14amHyperuricemiaacuteNov2023 11:14am HypomagnesemiaacuteMarch 22, 2024 11:14amLeukocytosisacuteMarch 22, 2024 11:14amSecondary hyperparathyroidismacuteMarch 22, 2024 11:14amType 2 diabetes mellitus with diabetic chronic kidney diseaseacuteNov2023 11:14am [facility] Work Phone: Evaluation note* Diagnosis Moderate episode of recurrent major depressive disorder (CMS/HCC) documented in this encounter [facility] HealthcareEvaluation note* Diagnosis Dermatophytosis of nail- Primary Type 2 diabetes mellitus with stage 3a chronic kidney disease, with long-term current use of insulin (HCC) (CMS/HCC) Diabetic polyneuropathy associated with type 2 diabetes mellitus (CMS/HCC) Dystrophic nail Other specified disease of nail documented in this encounter [facility] note* Diagnosis Type 2 diabetes mellitus with stage 3a chronic kidney disease, with long-term current use of insulin (HCC) (CMS/HCC) documented in this encounter [facility] HealthcareEvaluation note* Diagnosis Tobacco dependency- Primary [...] diabetes mellitus (CMS/HCC) documented in this encounter [facility] HealthcareEvaluation note* Diagnosis Tobacco dependency- Primary Tobacco [...] Unspecified essential hypertension documented in this encounter [facility] HealthcareEvaluation note* Diagnosis Tobacco dependency- Primary Tobacco use disorder Type 2 diabetes mellitus with stage 3a chronic kidney disease, with long-term current use of insulin (HCC) ([facility]/HCC) Mixed hyperlipidemia (CMS/HCC) Mixed hyperlipidemia Pulmonary emphysema, unspecified emphysema type (CMS/HCC) Primary hypertension (CMS/HCC) Unspecified essential hypertension Encounter for screening for malignant neoplasm of colon Encounter for screening mammogram for malignant neoplasm of breast Encounter for Medicare annual wellness exam Type 2 diabetes mellitus with stage 3a chronic kidney disease, with long-term current use of insulin (HCC) ([facility]/HCC)- Primary Hyperlipidemia, unspecified hyperlipidemia type (CMS/HCC) Pulmonary emphysema, unspecified emphysema type (CMS/HCC) Primary hypertension (CMS/HCC) Unspecified essential hypertension Mixed hyperlipidemia (CMS/HCC) Mixed hyperlipidemia Moderate episode of recurrent major depressive disorder (CMS/HCC) Psychophysiological insomnia Persistent disorder of initiating or maintaining sleep Type 2 diabetes mellitus with stage 3a chronic kidney disease, with long-term current use of insulin (HCC) ([facility]/HCC)- Primary Primary hypertension ([facility]/HCC) Unspecified essential hypertension Type 2 diabetes mellitus with stage 3a chronic kidney disease, with long-term current use of insulin (HCC) ([facility]/HCC)- Primary Mixed hyperlipidemia (CMS/HCC) Mixed hyperlipidemia Primary hypertension (CMS/HCC) Unspecified essential hypertension Chronic diastolic congestive heart failure (CMS/HCC) Diabetic polyneuropathy associated with type 2 diabetes mellitus (CMS/HCC) Lumbar stenosis with neurogenic claudication Pulmonary emphysema, unspecified emphysema type (CMS/HCC) Primary hypertension (CMS/HCC)- Primary Unspecified essential hypertension Moderate episode of recurrent major depressive disorder (CMS/HCC) Chronic diastolic congestive heart failure ([facility]/HCC) Type 2 diabetes mellitus with stage 3a chronic kidney disease, with long-term current use of insulin (HCC) ([facility]/HCC) Mixed hyperlipidemia ([facility]/HCC) Mixed hyperlipidemia Tobacco dependency Tobacco use disorder Chronic gout of multiple sites, unspecified cause documented in this encounter [facility]* Diagnosis Onset Date Resolution Status Admit Date CKD (chronic kidney disease) stage 3, GF R 30-59 ml/min acuteJuly 2024 11:06amHepatic cystacuteJuly 2024 11:06amHypertensive chronic kidney disease with stage 1 through stage 4 chronic kiacuteJuly 2024 11:06amHyperuricemiaacuteJuly 2024 11:06amHypomagnesemiaacuteJuly 2024 11:06amLeukocytosisacuteJuly 2024 11:06amSecondary hyperparathyroidism acuteJuly 2024 11:06amType 2 diabetes mellitus with diabetic chronic kidney diseaseacuteJuly 2024 11:06am [facility] Work Phone: Evaluation note* Diagnosis Onset Date Resolution Status Admit Date Cigarette nicotine dependence without co mplication acuteOctober 2024 9:31amMixed hyperlipidemiaacuteOctober 2024 9:31am Moderate episode of recurrent major depressive disorderacuteOctober 2024 9:31amMorbid obesity due to excess caloriesacuteOctober 2024 9:31amPrimary hypertensionacuteOctober 2024 9:31amType 2 diabetes mellitus with stage 3a chronic kidney disease, with long-teacuteOctober 2024 9:31am [facility] Work Phone: History of Present [...] weight loss and more importantly smoking cessation. [facility] [address] DO Work Phone: Hospital Discharge instructionsAmbulatory Orders* Referral to General Surgery Time Frame: 06/24/23, Location: None Selected [facility] Work Phone: Hospital Discharge instructionsAmbulatory Orders* AMB POC Hgb A1C Time Frame: 02/08/25, Location: Determined By Patient [facility] Work Phone: Progress note Author Rebeca Ashraf [facility] June 24, 2023 10:45amNote Date/TimeFebruary 2023 10:07[facility] [place] [address] Cancer Center Note Signed Patient: Vidhya Ibarra MR#: [id number] : 1955 Acct:[id number] Age/Sex: 67 / F Type: REG AMB [...] history of cancer. Family cancer history includes herfather with unk type of metastatic cancer and [...] chest pain. Has some restless legs, muscle cramps,and hair thinning. She denies ice cravings, black [...] % (Auto) 74.3 Lymph % (Auto) 18.0 Elliott % (Auto) 5.2 Eos % (Auto) 1.7 Baso % (Auto) 0.8 Nucleat RBC Rel Count 0.1 Neut # (Auto) 10.6 H Lymph # (Auto) 2.6 Elliott # (Auto) 0.7 Eos # (Auto) 0.2 [...] signed by Rebeca Ashraf MD> 06/24/23 1045 [facility] Work Phone: Reason for referral (narrative)No reason for referral information availableOhiohealth [facility] Work Phone: Summary Purpose Family History Unknown Family Member Name Dates Details FH: coronary artery bypass s urgery: Mother(V17.3, Z82.49) Status:ActiveFamily history of malignant neoplasm: Father(V16.9, Z80.9) Status:Active Unknown Family Member Name Dates Details FH: coronary artery bypass s urgery: Mother(V17.3, Z82.49) Status:ActiveFamily history of malignant neoplasm: Father(V16.9, Z80.9) Status:Active Unknown Family Member Name Dates Details Family history of malignant neoplasm: Father(V16.9, Z80.9) Status:ActiveFH: coronary artery bypass surgery: Mother(V17.3, Z82.49) Status:Active Unknown Family Member Name Dates Details Family history of malignant neoplasm: Father(V16.9, Z80.9) Status:ActiveFH: coronary artery bypass surgery: Mother(V17.3, Z82.49) Status:Active Unknown Family Member Name Dates Details FH: coronary artery bypass s urgery: Mother(V17.3, Z82.49) Status:ActiveFamily history of malignant neoplasm: Father(V16.9, Z80.9) Status:Active Unknown Family Member Name Dates Details FH: coronary artery bypass s urgery: Mother(V17.3, Z82.49) Status:ActiveFamily history of malignant neoplasm: Father(V16.9, Z80.9) Status:Active Unknown Family Member Name Dates Details FH: coronary artery bypass s urgery: Mother(V17.3, Z82.49) Status:ActiveFamily history of malignant neoplasm: Father(V16.9, Z80.9) Status:Active Unknown Family Member Name Dates Details Family history of malignant neoplasm: Father(V16.9, Z80.9) Status:ActiveFH: coronary artery bypass surgery: Mother(V17.3, Z82.49) Status:Active Relationship Condition Age at Onset Recorded Date/T norris father Mesothelioma Unknown Not SpecifiedHypertensionUnknownHeart diseaseUnknown Relationship Condition Age at Onset Recorded Date/T norris father Mesothelioma Unknown Not SpecifiedHypertensionUnknownHeart diseaseUnknownbrotherFamily history of mental disorderUnknownDeceasedUnknownfatherMalignant neoplasmUnknownNot SpecifiedDiabetes mellitusUnknownHypertensionUnknown Relationship Condition Age at Onset Recorded Date/T norris father Mesothelioma Unknown motherHypertensionUnknownHeart diseaseUnknownbrotherFamily history of mental disorderUnknownDeceasedUnknownfatherMalignant neoplasmUnknownmotherDiabetes mellitusUnknownHypertensionUnknown Advance Directives Advance Directive Response Recorded Date/ Time Advance Directives No November 23 12:44pm Advance Directive Response Recorded Date/ Time Advance Directives No November 23 11:44am Advance Directive Response Recorded Date/ Time Advance Directives No December 26, 2024 5:46pm Reason for Referral Reason *FU 04/23 Evaluate and Treat Diagnosis 1 Cardiomegaly (I51.7) Referral Organization [facility] Ne urosurgery Referring Provider First Name Juan Referring Provider Last Name Carlos Referring Provider Specialty Neurologica l Surgery Referred Organization [facility] Referred Provider Jason Johnson Referred Address [address] ,[place], [place],[address] Referred Provider Specialty Cardiac Surg nicholas Referral Priority Routine General Notes Neena Estevez 021 08:49:37 AM >Received today and waiting for office notes to be lockedNeena Estevez 04/16/2021 03:27:00 PM >[facility] office request us to fax the referral to them and they will review and call patient to schedule their appointment. Referral was fax Reason Evaluate and Treat Diagnosis 1 Cervical disc disord er at C5-C6 level with radiculopathy (M50.122) Referral Organization [facility] urosurgery Referring Provider First Name Juan [...] Chief Complaint Leukocytosis 3 month follow up LeukocytosisReason for VisitLeukocytosis Breast nodule Leukocytosis Recurrent boils Yeast infection Chief Complaint 3 month follow up Le ukocytosis Leukocytosis Follow UpReason for VisitBreast nodule Leukocytosis Recurrent boils Yeast infection Leukocytosis Breast nodule Leukocytosis Recurrent boils Yeast infection Chief Complaint 3 month follow up Le ukocytosis Leukocytosis Follow Up Chronic Kidney DiseaseReason for VisitBreast nodule Leukocytosis Recurrent boils Yeast infection Leukocytosis [...] hronic kidney disease November 03, 2024 11:06am Chief Complaint Admit Date Rescheduled FollowUp February 08, 2025 9 :31am Reason for Visit Admit Date Cigarette nicotine dependence without co mplication February 08, 2025 9:31am Mixed hyperlipidemia February 08, 2025 9 :31am Moderate episode of recurrent major depr essive disorder February 08, 2025 9:31am Morbid obesity due to excess calories Oc tober 2024 9:31am Primary hypertension February 08, 2025 9 :31am Type 2 diabetes mellitus wit h stage 3a chronic kidney disease, with long-te February 08, 2025 9:31am Additional Source Comments INFORMATION SOURCE (unrecogn ized section and content) DATE CREATED AUTHOR 12/03/2019 [facility] DATE CREATED AUTHOR AUTHOR'S ORGANIZ ATION 05/26/2021 [facility] DATE CREATED AUTHOR AUTHOR'S ORGANIZ ATION 10/10/2022 [facility] DATE CREATED AUTHOR AUTHOR'S ORGANIZ ATION 12/08/2022 [facility] DATE CREATED AUTHOR AUTHOR'S ORGANIZ ATION 12/09/2022 [facility] DATE CREATED AUTHOR AUTHOR'S ORGANIZ ATION 10/13/2023 [facility] DATE CREATED AUTHOR AUTHOR'S ORGANIZ ATION 10/02/2024 [facility] DATE CREATED AUTHOR AUTHOR'S ORGANIZ ATION 11/04/2024 [facility] EPIC REASON FOR VISIT (unrecogniz ed section and content) ReasonOnset DateCommentsMed [id number] DateCommentsMed Refill 4ReasonCommentsDM Foot CareLinda Heishman 68yo New patient with referral from [facility], for Diabetic foot exam, neuropathic. BS 140 A1C7.5 Migel Carver 12/14/2023 SS 8SpecialtyDiagnoses / ProceduresReferred By ContactReferred To ContactPodiatry Diagnoses Type 2 diabetes mellitus with stage 3a chronic kidney disease, with long-term current use of insulin (HCC) ([facility]) Diabetic polyneuropathy associated with type 2 diabetes mellitus ([facility]) Procedures [place] OFFICE/OUTPATIENT NEW HIGH MDM 60 MINUTES Migel Carver, INVESTOR [address] [place] [address] Alysia Rhodes, DPM [address] [place] [address] Referral IDStatusReasonStart DateExpiration DateVisits RequestedVisits [id number] Specialty Services Required [id number] DateCommentsMed [id number] RefillReasonOnset DateCommentsMed Qgbymy6105/12/2024ReasonOnset DateCommentsMed Qllagd8305/24/2024ReasonOnset DateCommentsMed Mekevb0308/03/2024ReasonOnset Date CommentsMed Rrwmyc6208/08/2024ReasonOnset DateCommentsMed Ganmjv2210/05/2024Reason CommentsMedicare Annual Wellness Visit Initial Care Teams (unrecognized sec tion and content) Team Status: Active Member Role Status Dates Shaikh Jeison MD Primary Care Provider Active Team Status: Inactive Member Role Status Dates Shaikh Jeison MD Primary Care Provider Active Start: June 24, 2023 End: June 24, 2023d Adarsh Alamo-Marraochoa , MDAttending ProviderActiveStart: June 24, 2023 End: June 24, 2023 Team Status: Active Member Role Status Dates Shaikh Jeison MD Primary Care Provider Active Start: August 05, 2023 Yakelin Staley , APRNActiveStart: August 05, 2023 Alta Sharmaine , MDReferring ProviderActiveStart: August 05, 2023 Mhd Adarsh Al-Stan , MDAttending ProviderActiveStart: August 05, 2023 Team Status: Inactive Member Role Status Dates Shaikh Jeison MD Primary Care Provider Active Start: August 05, 2023 End: August 05, 2023d Dinaser Al-Marraochoa , MDAttending ProviderActiveStart: August 05, 2023 End: August 05, 2023 Team Status: Active Member Role Status Dates Shaikh Jeison MD Primary Care Provider Active Start: June 24, 2023 Yakelin Staley APRNAttending ProviderActiveStart: June 24, 2023 Alta Sharmaine , MDReferring ProviderActiveStart: June 24, 2023 Team Status: Inactive Member Role Status Tena Mchugh MD Primary Care Provider Active Alta Sharmaine , MDAttending ProviderActive Team Status: Active Member Role Status Tena Mchugh MD Primary Care Provider Active Emmett Acosta ProviderActiveAbdul Sharmaine , MDReferring ProviderActive Team Status: Inactive Member Role Status Tena Mchugh MD Primary Care Provider Active Start: September 12, 2023 End: September 11bdul Sharmaine , MDAttending ProviderActiveStart: September 12, 2023 End: September 12, 2023Team MemberRelationshipSpecialtyStart DateEnd Date Shaikh Mchugh MD [address] [place] [phone] PCP - GeneralInternal Medicine07/03/23 Team Status: Active Member Role Status Dates Migel Carver NP-C Primary Care Provider Ac tive Team Status: Inactive Member Role Status Dates Migel Carver NP-C Primary Care Provider Ac tive Start: March 14, 2024 End: March 14Ward Huntending ProviderActiveStart: March 14, 2024 End: March 14, 2024 Team Status: Inactive Member Role Status Dates Alta Schmid MD Attending Provider Active Start : March 22, 2024 End: March 22riLYDIA AbbottCPrima Care ProviderActive Start: March 22, 2024 End: March 22, 2024Team MemberRelationshipSpecialtyStart DateEnd Date Shaikh Mchugh MD [address] [place] [phone] [facility] - [facility]07/03/23Team MemberRelationshipSpecialtyStart Date End Date Shaikh Mchugh MD [address] [place] [phone] PCP - GeneralInternal Medicine07/03/23Team MemberRelationshipSpecialtyStart Date End Date Shaikh Mchugh MD [address] [place] [phone] PCP - GeneralInternal Medicine07/03/23Team MemberRelationshipSpecialtyStart Date End Date Gaetano Andrea MD [address] [place] [phone] PCP - [facility]04/18/24 Migel Carver NP [address] [place] [address] [facility]04/18/24Team MemberRelationshipSpecialtyStart DateEnd Date Gaetano Andrea MD [address] [place] [phone] PCP - [facility]04/18/24 Migel Carver NP [address] [place] [address] [facility]04/18/24Team MemberRelationshipSpecialtyStart DateEnd Date Gaetano Andrea MD [address] [place] [phone] PCP - [facility]04/18/24 Migel Carver NP [address] [place] [address] [facility]04/18/24Team MemberRelationshipSpecialtyStart DateEnd Date Gaetano Andrea MD [address] [place] [phone] PCP - [facility]04/18/24 Migel Carver NP [address] [place] [phone] [facility]04/18/24Team MemberRelationshipSpecialtyStart DateEnd Date Gaetano Andrea MD [address] [place] [phone] PCP - [facility]04/18/24 Migel Carver NP [address] [place] [phone] [facility]04/18/24 Team Status: Active Member Role Status Dates PHYSICIAN NO FAMILY Primary Care Provider Active Team Status: Inactive Member Role Status Dates PHYSICIAN NO FAMILY Primary Care Provider Active Start: September 30, 2024 End: September 30bdnita Schmid MDAttending ProviderActiveStart: September 30, 2024 End: September 30, 2024Team MemberRelationshipSpecialtyStart DateEnd Date Gaetano Andrea MD [address] [place] [phone] PCP - [facility]04/18/24 Migel Carver NP [address] [place] [address] [facility] Pract[facility]er[facility]04/18/24Team MemberRelationshipSpecialtyStart DateEnd Date Gaetano Andrea MD [address] [place] [phone] PCP - [facility]04/18/24 Migel Carver NP [address] [place] [address] [facility] Pract[facility]04/18/24Team MemberRelationshipSpecialtyStart DateEnd Date Gaetano Andrea MD [address] [place] [phone] PCP - [facility]04/18/24 Migel Carver NP [address] [place] [address] [facility] Pract[facility]04/18/24Team MemberRelationshipSpecialtyStart DateEnd Date Gaetano Andrea MD [address] [place] [phone] PCP - [facility]04/18/24 Migel Carver NP [address] [place] [phone] [facility]04/18/24 Team Status: Inactive Member Role Status Dates Alta Schmid MD Attending Provider Active Start : November 03, 2024 End: November 03, 2024PHYSICIAN NO FAMILYPrimary Care ProviderActiveStart: November 03, 2024 End: November 03, 2024Team MemberRelationshipSpecialtyStart DateEnd Date Gaetano Andrea MD [address] [place] [phone] PCP - [facility]04/18/24 Migel Carver NP [address] [place] [phone] [facility]04/18/24 Team Status: Active Member Role Status Dates Coni Osorio NP-C Primary Care Provider Active Team Status: Inactive Member Role Status Dates Coin Osorio NP-C Primary Care Provider Active Start: February 08, 2025 End: February 08, 2025Coni Osorio NP-CAttending ProviderActiveStart: February 08, 2025 End: February 08, 2025 Goals (unrecognized section and content) Goals may [...] BE BASED ON THE PRIMARY CLINICAL RECORDS. [facility] [employer] [facility]. provides no warranty or guarantee of the accuracy or completeness of information in this document.
--- NOTE | 2025-04-06 10:27 | P.CN_ITS ---
Consult Note: HPI Data of Consult Patient: known to practice within the last 3 years Requesting Physician: Renate Flores NP Primary Care Provider: Coni Osorio NP Consult Narrative Reason for consult: f/u Narrative: Vidhya Pillai 69 year old female presents for evaluation of chronic back pain and BLE pain secondary to lumbar spondylosis, lumbar stenosis with NC, and painful diabetic polyneuropathy. Pain today 3/10 increasing with standing, walking, twisting, pushing, pulling, and activity. Pt finds mild benefit to gabapentin 900mg QID and percocet 5-325mg BID PRN, without side effects. FERNANDEZ 52%. notes improvement in pain with increased gabapentin, denies side effects. pending referral to neurology for further evaluation. cc:: CC: Renate Flores NP Review of Systems ROS Musculoskeletal Reports: back pain and extremity pain PFSH [facility] Medical History Osteoarthritis ?M19.90 - Unspecified osteoarthritis, unspecified site (ICD-10) Low back pain ?M54.50 - Low back pain, unspecified (ICD-10) Numbness and tingling ?R20.0 - Anesthesia of skin (ICD-10) ?R20.2 - Paresthesia of skin (ICD-10) Diabetes ?E11.9 - Type 2 diabetes mellitus without complications (ICD-10) Smoker ?F17.200 - Nicotine dependence, unspecified, uncomplicated (ICD-10) COPD (chronic obstructive pulmonary disease) ?J44.9 - Chronic obstructive pulmonary disease, unspecified (ICD-10) Angina at rest ?I20.8 - Other forms of angina pectoris (ICD-10) Hypertension ?I10 - Essential (primary) hypertension (ICD-10) Surgical History History of cholecystectomy ?Z90.49 - Acquired absence of other specified parts of digestive tract (ICD- 10) S/P dilatation and curettage ?Z98.890 - Other specified postprocedural states (ICD-10) H/O cardiac catheterization ?Z98.890 - Other specified postprocedural states (ICD-10) Meds Home Medications and Allergies Home Medications ?Medication ?Instructions ?Recorded ?Confirmed ?Type glipizide 10 mg tablet 10 mg PO BID 10/16/22 History insulin NPH isoph U-100 human 100 20 unit subcut BID 0 10/16/22 10/05/23 History unit/mL subcutaneous suspension (Novolin N NPH U-100 Insulin isophane) metoprolol tartrate 50 mg tablet 50 mg PO BID 10/16/22 10/05/23 History paroxetine HCl 10 mg tablet 10 mg PO DAILY 10/16/22 History pramipexole 0.25 mg tablet 0.25 mg PO DAILY 10/16/22 0 10/05/23 History (Mirapex) trazodone 150 mg tablet 150 mg PO BEDTIME 10/16/22 0 10/05/23 History atorvastatin 40 mg tablet (Lipitor) 40 mg PO DAILY 10/05/23 History bumetanide 0.5 mg tablet 0.5 mg PO DAILY 04/16/2307/25 History magnesium oxide 400 mg (241.3 mg mg 06/01/23 History magnesium) tablet allopurinol 200 mg tablet 200 mg PO DAILY 09/21/2307/25 History naloxone 4 mg/actuation nasal 4 mg intranasal Q2M #2 e a 03/10/24 Rx spray (Narcan) gabapentin 300 mg capsule 900 mg (3 x 300 mg) PO QID # 360 10/13/24 Rx caps oxycodone-acetaminophen 5 mg-325 1 tab PO BID PRN pain #60 tabs 10/13/24 Rx mg tablet (Percocet) gabapentin 300 mg capsule See Rx Instructions .Route 0 11/14/24 Rx .COMPLEX #360 caps oxycodone-acetaminophen 5 mg-325 1 tab PO BID PRN pain #60 tabs 11/14/24 Rx mg tablet (Percocet) gabapentin 300 mg capsule See Rx Instructions .Route 0 12/15/24 Rx .COMPLEX #360 caps oxycodone-acetaminophen 5 mg-325 1 tab PO BID PRN pain #60 tabs 12/15/24 Rx mg tablet (Percocet) gabapentin 600 mg tablet 900 mg (1.5 x 600 mg) PO QID #180 01/05/25 Rx tabs oxycodone-acetaminophen 5 mg-325 1 tab PO BID PRN pain #60 tabs 01/05/25 Rx mg tablet (Percocet) gabapentin 600 mg tablet 900 mg (1.5 x 600 mg) PO QID #180 02/10/25 Rx tabs oxycodone-acetaminophen 5 mg-325 1 tab PO BID PRN pain #60 tabs 02/10/25 Rx mg tablet (Percocet) gabapentin 600 mg tablet 900 mg (1.5 x 600 mg) PO QID #180 03/13/25 Rx tabs oxycodone-acetaminophen 5 mg-325 1 tab PO BID PRN pain #60 tabs 03/13/25 Rx mg tablet (Percocet) Allergies Allergy/AdvReac Type Severity Reaction Status Date / Time prednisone Allergy Intermediate Rash Verified 10/05/23 08:00 Exam Constitutional Documenting provider has reviewed patient's vital signs: yes Common normals: no apparent distress, oriented x3 and alert General appearance: cooperative Orientation/consciousness: Yes awake, Yes oriented to person, Yes oriented to place and Yes oriented to time HENGA Common normals: normocephalic, hearing grossly normal bilaterally and moist oral mucous membranes Head and scalp: normocephalic Eye Common normals: PERRL Pupil: PERRL Neck & C-Spine Common normals: full ROM General: normal visual inspection Chest Common normals: inspection of chest normal Respiratory Common normals: normal respiratory effort, no retractions and no use of accessory muscles Effort & inspection: able to speak in complete sentences and symmetric chest movement Back & Pelvis Lumbar spine/lower back: ROM limited, pain with ROM and straight leg raise negative bilaterally Sacroiliac joints: SI joints normal Other: bilateral facet loading chronic neuropathic pain and decreased sensation to BLE from knees down, no obvious edema or discoloration strength 4/5 in BLE Extremity Common normals: normal to inspection and full ROM Neuro Common normals: oriented x3 Sensorium/orientation: alert Motor exam: no movement abnormalities noted Psych Common normals: mental status grossly normal, thought process normal, cooperative, affect normal, speech normal and activity/motor behavior normal Speech: normal speech Thought process: normal thought process Results Imaging Lumbar MRI: Attestation: I have reviewed the pertinent imaging results. Radiologist's impression: Spondylotic Changes: Multilevel spondylotic changes include varying degrees of intervertebral disc height loss, disc desiccation, osteophytic ridging, and facet/ligamentum flavum hypertrophy. These have mildly progressed since 10/12/2020. T12-L1: No disc bulge or herniation. No high-grade spinal canal or foraminal narrowing. L1-L2: No disc bulge or herniation. No high-grade spinal canal or foraminal narrowing. L2-L3: No disc bulge or herniation. No high-grade spinal canal or foraminal narrowing. L3-L4: No disc bulge or herniation. No high-grade spinal canal narrowing. Mild bilateral foraminal narrowing. Mild bilateral facet/ligamentum flavum hypertrophy. L4-L5: Slight disc bulge minimally indents the ventral thecal sac. No high-grade spinal canal narrowing. [id number] bilateral foraminal narrowing. Advanced bilateral facet/ligamentum flavum hypertrophy. L5-S1: No disc bulge or herniation. Significant intervertebral disc height loss. No high-grade spinal canal narrowing. Mild right and moderate left foraminal narrowing. Mild bilateral facet hypertrophy. Additional Findings Additional findings: If on a controlled substance or opioids, I have checked an [place] report on this patient and there are no aberrancies noted in the prescribing history.??If on a controlled substance or opioid a drug screen was completed and reviewed within the last year, and if there has not been a drug screen completed we ordered one today to monitor higher risk, state monitored pain medication use. As part of providing excellent, safe, comprehensive care, the following was completed at our patient's visit: 1. A medication reconciliation and review to ensure accurate knowledge of current/active medications, including asking our patients to inform us about any leaq-fvs-giqeynn medications or herbal remedies/nutritional supplements/alternative remedies. 2. A review to specifically ensure our patients have had annual screening for screening for depression, screening for tobacco use, and screening for unhealthy alcohol use. For concerning screenings had a discussion with the patient, provided patient education, and recommended follow-up with primary care provider when appropriate. If patient noted with a risk of falling, they received education on strength, gait, and balance training to prevent future risk of falling. Portions of this note may have been carried over from the previous visit and updated as appropriate. Please note this office utilizes paper charting in addition to the electronic medical record. A list of current medications, vitals, and PMH is available there as the clinical staff outside of myself do not have access to [facility] charting during the clinic day operations. As part of providing quality comprehensive care the current medications, vitals, and PMH were reviewed in the paper chart. 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 The patient does not report intolerable side effects. The patient is NOT opioid naive and non-pharmacologic and non-opioid treatment has failed to significantly relieve the patient's pain and improve functionality. The patient has a diagnosis that is related to a somatic or visceral pain etiology. ? ?? I reviewed with the patient the potential risks and side effects with the use of? opioid medications including but not limited to respiratory depression,? sedation, and even . I verified the patient has access to naloxone should? these effects occur. I advised the patient to avoid the use of any other? sedation substances including alcohol, THC, and benzodiazepines while? taking opioid medications due to the risk of compounding side effects and? detrimental outcomes. 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 drug screen, and opioid start talking forms. The patient was advised to let? their family know they had Naloxone in case they would need to administer? the medication.? ?? A drug screen was completed within the last year, and no aberrancies were noted regarding their use of controlled substances. The patient understands they are subject to the terms and conditions of the pain contract that they have signed. ? ?? I have checked an [place]AR[place] report on this patient today and there are no aberrancies noted in the prescribing history.? (4) Lumbar spondylosis: (5) Muscle spasm: (6) Degenerative disc disease: Plan pt not interested in spinal cord stim trial, finds benefit to current medications continue gabapentin 900mg QID, continue percocet 5-325mg BID PRN moderate to severe pain. tolerating without side effects. continues to notice improvement and pain and functional ability for at least 6 hours after each dose narcan previously prescribed and available at home continue HEP as tolerated f/u 3 months for medication management
== END 2025-04-06 10:05 | disposition home or self-care (01) ==
LOC: PM 10:04
PROVIDERS: PCP Nurse Practitioner; Visit Provider Nurse Practitioner
DX: M48.062 Spinal stenosis, lumbar region with neurogenic claudication (principal); E11.40 Type 2 diabetes mellitus with diabetic neuropathy, unspecified; Z79.891 Long term (current) use of opiate analgesic
CPT/HCPCS: G0463